=== PATIENT | female | born 1955 | race Caucasian/White ===

== ENCOUNTER 2021-07-30 11:59 | Outpatient (REF) | payer MEDICARE, SELFPAY ==
[2021-07-30 13:18] LABS: Blood Urea Nitrogen 18 mg/dL (9-16); Estimated Glomerular Filt Rate > 60
== END 2021-07-30 12:00 | disposition home or self-care (01) ==
LOC: HO.LAB 11:59
PROVIDERS: Psychiatry & Neurology Neurology; PCP Internal Medicine; Visit Provider Psychiatry & Neurology Neurology
DX: I67.1 Cerebral aneurysm, nonruptured (principal)
CPT/HCPCS: 36415; 82565; 84520

== ENCOUNTER 2021-09-10 10:09 | Outpatient (REF) | payer MEDICARE, SELFPAY ==
--- NOTE | ~2021-09-10 | CT_ITS ---
EXAMINATION: CT ANGIOGRAM HEAD WITH CONTRAST CLINICAL INFORMATION: Follow-up cerebral aneurysm. COMPARISON: CT angiogram dated 11/15/2019. TECHNIQUE: Test bolus sequences followed by intravenous administration 75 mL of Omnipaque 350. Helical imaging was performed in the axial plane from the skull base to the vertex. Delayed postcontrast imaging of the head was also performed. The data was processed at the special procedure technologist's workstation for generation of MIP sequences. Three-dimensional volume rendered reformatted images were also generated at an offline 3-D workstation. This CT examination was performed using dose optimization techniques as appropriate, variously including the following: *Automated exposure control *Adjustment of mA and/or kV according to patient size (this includes techniques or standardized protocols for targeted exams where dose is matched to indication/reason for exam; i.e. extremities or head) *Use of iterative reconstruction technique DLP: 234 mGy-cm. FINDINGS: There is no evidence of acute intracranial hemorrhage or territorial infarction. No abnormal mass effect or midline shift is seen. Oneill to white matter differentiation is well preserved. No extra-axial fluid collections are identified. There is no abnormal enhancement. The ventricles are normal in size. There is no abnormal attenuation within the brain parenchyma. The osseous structures and soft tissues are normal. The mastoid air cells and visualized portions of the paranasal sinuses are well aerated. There are [id number] degenerative changes of the right temporomandibular joint. A 3 x 3.7 mm right MCA bifurcation aneurysm is stable compared to the previous exam. The remaining intracranial vasculature corresponding to the anterior and posterior circulation is normal. Mild to moderate atherosclerotic wall calcifications of the cavernous and supraclinoid internal carotid arteries again noted. No significant stenoses or occlusions are seen. No vascular malformation is identified. The visualized extracranial vessels appear normal. The venous sinuses opacify normally. CT/CT angio head IMPRESSION: Stable 3 x 3.7 mm right MCA bifurcation aneurysm. No acute process.
[2021-09-10 10:54] LABS: Blood Urea Nitrogen 25 mg/dL (9-16); Estimated Glomerular Filt Rate > 60
[2021-09-10] MEDS: iohexoL 350 MG/ML 100 ML INFUS..BTL IV (12:03)
== END 2021-09-10 10:10 | disposition home or self-care (01) ==
LOC: HO.CT 10:09
PROVIDERS: Visit Provider Psychiatry & Neurology Neurology
DX: I67.1 Cerebral aneurysm, nonruptured (principal)
CPT/HCPCS: 36415; 70496; 82565; 84520; Q9967

== ENCOUNTER 2022-07-31 23:31 | Emergency (ER) | payer MEDICARE, SELFPAY ==
--- NOTE | ~2022-07-31 | XR_ITS ---
EXAMINATION: XR CHEST CLINICAL INFORMATION: Chest pain COMPARISON: 01/04/2020 TECHNIQUE: Frontal view of the chest was obtained. FINDINGS: Normal symmetric lung volumes. No parenchymal consolidation. No pleural effusion. No pneumothorax. Cardiomediastinal silhouette and pulmonary vascularity are within normal limits. Aorta is atherosclerotic. No acute osseous abnormalities. XR/XR chest 1V IMPRESSION: No acute findings
[2022-07-31 23:58] VITALS: BP 151/68; PULSE 92; RESP 16; TEMP 36.9; O2SAT 96; BMI 33.1
--- NOTE | 2022-08-01 00:02 | ECG_ITS ---
Test Reason : CHEST PRESSURE Blood Pressure : / mmHG Vent. Rate : 088 BPM Atrial Rate : 088 BPM P-R Int : 150 ms QRS Dur : 074 ms QT Int : 348 ms P-R-T Axes : 055 009 033 degrees QTc Int : 421 ms Normal sinus rhythm Normal ECG When compared with ECG of 30-SEP-2017 12:52, No significant change was found Referred By: Generic ED Physician Electronically Signed By:DONG MORGAN MD
[2022-08-01 00:08] LABS: MANUAL DIFF FLAG NO
[2022-08-01 00:11] LABS: Basophils Percent Auto 0.4 % (0-2); Eosinophils Absolute Auto 0.2 X10*3/uL (0.0-0.4); Eosinophils Percent Auto 2.7 % (0-4); Hematocrit 34.3 % (37.0-47.0); Hemoglobin 10.5 g/dl (12.0-16.0); Imm Gran Abs Auto 0.02 X10*3/uL (0.00-0.03); Imm Gran Pct Auto 0.3 % (0.0-0.4); Lymphocytes Absolute Auto 1.6 X10*3/uL (1.2-4.9); Lymphocytes Percent Auto 23.7 % (20-40); Mean Corpuscular HGB Conc 30.6 g/dl (31.0-35.0); Mean Corpuscular Hemoglobin 26.1 pg (27.0-33.0); Mean Corpuscular Volume 85.1 fL (80.0-98.0); Mean Platelet Volume 10.6 fL (9.4-12.3); Monocytes Absolute Auto 0.5 X10*3/uL (0.1-1.2); Monocytes Percent Auto 7.6 % (2-11); Neutrophils Absolute Auto 4.4 x10*3/uL (2.0-8.3); Neutrophils Percent Auto 65.3 % (45-73); Platelet Count 213 X10*3/uL (160-400); Red Blood Count 4.03 X10*6/uL (4.20-5.50); Red Cell Distribution Width 16.8 % (11.0-16.0); White Blood Count 6.7 X10*3/uL (4.8-10.8)
--- NOTE | 2022-08-01 00:18 | PC.NURSE ---
Patient arrives endorsing chest pain, now 5/10 in the center of her chest and epigastric discomfort. HR NSR 80s. She states pain is a little better than earlier. She denies nausea.
[2022-08-01 00:19] VITALS: BP 160/50; PULSE 84; RESP 18; TEMP 36.5; O2SAT 96
[2022-08-01 00:28] LABS: COVID-19 Test Negative (Negative); IDNOW Serial# 16C4AD1C
--- NOTE | 2022-08-01 00:29 | ED.CHESTPAIN ---
HPI - Chest Pain General Chief Complaint: Chest Pain Stated Complaint: REPRODUCABLE CHEST WALL PAIN Time Seen by Provider: 08/01/22 00:22 Source: patient and sign language interpreter Mode of arrival: ambulatory Limitations: language barrier History of Present Illness HPI narrative: 67 yo female with history of anxiety, asthma, HLD, HTN, GERD, CVA on aspirin presents with complaints of intermittent chest pain for 2 years. Patient tells me chest pain occurs while at rest, with movement, with breathing, with palpation. Patient reports shortness of breath with moving but states she has asthma. No cough, fever, leg swelling or leg pain, dizziness or palpitations. Patient also reports she has some perioral numbness which occurs with her chest pain at time. 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 She cannot recall the name of her supervisor body assembly. She tells me she has never had a stress test. Related Data Allergies Allergy/AdvReac Type Severity Reaction Status Date / Time Penicillins Allergy Mild UNKNOWN Unverified 06/29/20 15:51 PCN Allergy Unknown SWELLING Uncoded 03/11/12 00:00 ESPECIALLY IN THE MOUTH Review of Systems Review of Systems: Yes all other systems are reviewed and are negative Constitutional: Constitutional: Reports no additional constitutional complaints, Denies body ache(s), Denies chills, Denies fever(s), Denies headache(s) and Denies weakness Eyes: Eyes: Reports no additional eye complaints and Denies change in vision ENT: Reports system reviewed and no additional complaints, except as documented, Denies dizziness, Denies headache(s), Denies nasal congestion, Denies nasal discharge and Denies neck pain Cardiovascular: Cardiovascular: Reports no additional cardiovascular complaints, Reports chest pain, Denies leg edema and Reports dyspnea Respiratory: Respiratory: Reports no additional respiratory complaints, Denies cough and Reports dyspnea Gastrointestinal: Gastrointestinal: Reports no additional gastrointestinal complaints, Denies abdominal pain, Denies diarrhea, Denies nausea and Denies vomiting Genitourinary: Genitourinary: Reports no additional female genitourinary complaints and Denies urinary incontinence Musculoskeletal: Musculoskeletal: Reports no additional musculoskeletal complaints, Denies back pain, Denies arthralgias, Denies joint swelling, Denies neck pain, Reports numbness and Denies tingling Integumentary/Breasts: Skin/Breast: Reports system reviewed and no additional complaints, except as docu and Denies rash Neurologic: Reports system reviewed and no additional complaints, except as documented, Denies Abnormal speech present, Denies dizziness, Denies headache(s), Reports numbness, Denies tingling and Denies weakness PMFSH Past Medical History Attestation statement: The following information was validated with the patient. Source: old records reviewed and nursing notes reviewed Social History Social History Advance Directives: No Physical Exam Vital Signs: Vital Signs: Last Vital Signs Temp 97.7 F 08/01/22 00:19 Pulse 80 08/01/22 01:19 Resp 14 08/01/22 01:19 BP 132/51 L 08/01/22 01:19 Pulse Ox 95 08/01/22 01:19 O2 Del Method 08/01/22 01:19 BMI result Body Mass Index 33.1 Const: General: cooperative, healthy appearing, comfortable and no acute distress Orientation/consciousness: patient oriented x3 Limitations: no limitations HEENT: Head: Yes normal to inspection Ears: hearing grossly normal bilaterally General nose exam: Normal external nose present Face and sinus: Yes normal facial exam Mouth: Normal oral and palatal mucosa present Throat: Yes posterior oropharynx normal Eyes: General: appearance normal, both eyes and all related structures Pupils: Equal, round and reactive pupils present Neck: Neck: Yes normal visual inspection Chest: Chest palpation & inspection: normal inspection of the chest and tenderness Resp: Effort & Inspection: normal respiratory effort Auscultation: clear to auscultation bilaterally Cardio: Rate: regular rate Rhythm: regular rhythm Peripheral pulses: Peripheral pulses 2+ throughout GI: Inspection: Yes normal to inspection Palpation (GI): Soft to palpation and nontender Auscultation: normal bowel sounds Back/Spine/Pelvis: Thoracic/Lumbar Spine: thoracic and lumbar spine normal to inspection Skin: General skin exam: no rashes or lesions noted Neuro: General: patient oriented x3, no focal motor deficits and normal sensation to monofilament Cranial nerves: Yes Equal, round and reactive pupils present Cognition (Neuro): normal cognition Speech: No Abnormal speech present Gait exam (Neuro): Normal gait present Motor exam (neuro): 5/5 motor strength present throughout Extrem: General: Yes normal to inspection, Yes no pedal edema and Yes no calf tenderness Course Course Course Narrative: Initial troponin is 21. Will repeat level. Additional labs are unremarkable. EKG shows no ischemic changes. Chest x-ray is negative Reevaluation(s) Reevaluation #1: 0200-Sign out to Dr An pending repeat troponin. MDM - Chest Pain MDM Narrative Medical decision making narrative: This is a 67-year-old female who presents with intermittent chest pain described as aching pain over the last 2 years with some occasional shortness of breath with movement and perioral numbness that accompanies chest pain. Patient quite anxious. On exam chest pain is reproducible. Her lungs are clear. Vitals are stable. Will check labs, EKG, chest x-ray, COVID screen. -seems atypical for ACS heart score 3 (risk factors, age). [facility] Medical Records Data Attestation: I reviewed the patient's medical records. Lab Data Attestation: I reviewed the patient's lab results. Result diagrams: 08/01/22 00:00 08/01/22 00:00 Labs: Lab Results 08/01/22 08/01/22 08/01/22 Range/Units 00:00 00:00 00:00 WBC 6.7 (4.8-10.8) X10*3/uL RBC 4.03 L (4.20-5.50) X10*6/uL Hgb 10.5 L (12.0-16.0) g/dl Hct 34.3 L (37.0-47.0) % MCV 85.1 (80.0-98.0) fL MCH 26.1 L (27.0-33.0) pg MCHC 30.6 L (31.0-35.0) g/dl RDW 16.8 H (11.0-16.0) % Plt Count 213 (160-400) X10*3/uL MPV 10.6 (9.4-12.3) fL Immature Gran % (Auto) 0.3 (0.0-0.4) % Neut % (Auto) 65.3 (45-73) % Lymph % (Auto) 23.7 (20-40) % Citrus % (Auto) 7.6 (2-11) % Eos % (Auto) 2.7 (0-4) % Baso % (Auto) 0.4 (0-2) % Lymph # (Auto) 1.6 (1.2-4.9) X10*3/uL Citrus # (Auto) 0.5 (0.1-1.2) X10*3/uL Eos # (Auto) 0.2 (0.0-0.4) X10*3/uL Baso # (Auto) 0.0 (0.0-0.2) X10*3/uL Abs Immat Gran (auto) 0.02 (0.00-0.03) X10*3/uL Absolute Neuts (auto) 4.4 (2.0-8.3) x10*3/uL Absolute Nucleated RBC 0.000 (0.0-0.012) X10*3/uL Nucleated RBC % (auto) 0.0 (0.0-0.2) /100WBC PT (10.0-13.1) SEC INR (0.9-1.1) D-Dimer High Sensitivty NG/ML Sodium 142 (135-145) mmol/L Potassium 4.4 (3.3-5.1) mmol/L Chloride 103 (96-108) mmol/L Carbon Dioxide 27 (22-29) mmol/L Anion Gap 16 (12-20) BUN 20 H (9-16) mg/dL Creatinine 0.77 (0.5-1.4) mg/dL Estim Creat Clear Calc 77.6 Estimated GFR > 60 Random Glucose 129 H (60-115) mg/dL Calcium 9.4 (8.4-10.2) mg/dL Total Bilirubin 0.2 (0.0-1.0) mg/dL Direct Bilirubin < 0.2 (0.0-0.5) mg/dL AST 20 (5-31) U/L ALT 18 (0-31) U/L Alkaline Phosphatase 93 (39-117) U/L Troponin I High Sens (<3.5-17.0) ng/L Total Protein 7.2 (6.5-8.0) g/dL Albumin 3.9 (3.5-5.0) g/dL COVID-19 ([facility]) Negative (Negative) COVID-19 Clin Com See Note 08/01/22 08/01/22 Range/Units 00:00 00:42 WBC (4.8-10.8) X10*3/uL RBC (4.20-5.50) X10*6/uL Hgb (12.0-16.0) g/dl Hct (37.0-47.0) % MCV (80.0-98.0) fL MCH (27.0-33.0) pg MCHC (31.0-35.0) g/dl RDW (11.0-16.0) % Plt Count (160-400) X10*3/uL MPV (9.4-12.3) fL Immature Gran % (Auto) (0.0-0.4) % Neut % (Auto) (45-73) % Lymph % (Auto) (20-40) % Citrus % (Auto) (2-11) % Eos % (Auto) (0-4) % Baso % (Auto) (0-2) % Lymph # (Auto) (1.2-4.9) X10*3/uL Citrus # (Auto) (0.1-1.2) X10*3/uL Eos # (Auto) (0.0-0.4) X10*3/uL Baso # (Auto) (0.0-0.2) X10*3/uL Abs Immat Gran (auto) (0.00-0.03) X10*3/uL Absolute Neuts (auto) (2.0-8.3) x10*3/uL Absolute Nucleated RBC (0.0-0.012) X10*3/uL Nucleated RBC % (auto) (0.0-0.2) /100WBC PT 11.1 (10.0-13.1) SEC INR 1.0 (0.9-1.1) D-Dimer High Sensitivty 224 NG/ML Sodium (135-145) mmol/L Potassium (3.3-5.1) mmol/L Chloride (96-108) mmol/L Carbon Dioxide (22-29) mmol/L Anion Gap (12-20) BUN (9-16) mg/dL Creatinine (0.5-1.4) mg/dL Estim Creat Clear Calc Estimated GFR Random Glucose (60-115) mg/dL Calcium (8.4-10.2) mg/dL Total Bilirubin (0.0-1.0) mg/dL Direct Bilirubin (0.0-0.5) mg/dL AST (5-31) U/L ALT (0-31) U/L Alkaline Phosphatase (39-117) U/L Troponin I High Sens 21.1 H (<3.5-17.0) ng/L Total Protein (6.5-8.0) g/dL Albumin (3.5-5.0) g/dL COVID-19 ([facility]) (Negative) COVID-19 Clin Com Imaging Data Chest x-ray: Attestation: I personally reviewed and interpreted this imaging study as follows: Radiologist's impression: XAMINATION: XR CHEST CLINICAL INFORMATION: Chest pain COMPARISON: 01/04/2020 TECHNIQUE: Frontal view of the chest was obtained. FINDINGS: Normal symmetric lung volumes. No parenchymal consolidation. No pleural effusion. No pneumothorax.? Cardiomediastinal silhouette and pulmonary vascularity are within normal limits. Aorta is atherosclerotic. No acute osseous abnormalities. XR/XR chest 1V IMPRESSION: No acute findings ? ECG Data ECG #1: Attestation: I personally reviewed and interpreted this ECG as follows: ECG interpretation date: 08/01/22 ECG interpretation time: 23:45 Interpretation: Normal sinus rhythm with a rate 88, normal VT, normal QRS, normal QT Discharge Plan Discharge Clinical Impression: Chest pain Patient Disposition: Still a Patient Instructions: Chest Pain (DC) Additional Instructions: White trabajo de laboratorio, electrocardiograma y jose X son tranquilizadores. Mantenga white julio con white cardi?logo. Regrese por cualquier empeoramiento de los s?ntomas. Referrals: Ashwin Arzola III, MD [Primary Care Provider] - 1 week Print Language: [place] Irish
[2022-08-01 00:32] LABS: Anion Gap 16 (12-20); Blood Urea Nitrogen 20 mg/dL (9-16); Calcium 9.4 mg/dL (8.4-10.2); Carbon Dioxide 27 mmol/L (22-29); Chloride 103 mmol/L (96-108); Creatinine Clr Calc Pharmacy 77.6; Estimated Glomerular Filt Rate > 60; Glucose Random 129 mg/dL (60-115); Potassium 4.4 mmol/L (3.3-5.1); Sodium 142 mmol/L (135-145)
[2022-08-01 00:34] LABS: Troponin-I High Sensitivity 21.1 ng/L (<3.5-17.0)
[2022-08-01 00:46] LABS: Alanine Aminotransferase 18 U/L (0-31); Albumin Level 3.9 g/dL (3.5-5.0); Alkaline Phosphatase 93 U/L (39-117); Aspartate Amino Transferase 20 U/L (5-31); Bilirubin Direct < 0.2 mg/dL (0.0-0.5); Bilirubin Total 0.2 mg/dL (0.0-1.0); Total Protein 7.2 g/dL (6.5-8.0)
[2022-08-01 00:55] LABS: Prothrombin Time 11.1 SEC (10.0-13.1)
[2022-08-01 00:57] LABS: D Dimer High Sensitivity 224 NG/ML
[2022-08-01 01:19] VITALS: BP 132/51; PULSE 80; RESP 14; O2SAT 95
[2022-08-01 02:23] VITALS: BP 136/58; PULSE 75; RESP 11; TEMP 36.4
[2022-08-01 02:23] LABS: Troponin-I High Sensitivity 23.7 ng/L (<3.5-17.0)
[2022-08-01 03:39] VITALS: BP 146/44; PULSE 73; RESP 11; TEMP 36.6; O2SAT 97
--- NOTE | 2022-08-01 03:40 | PC.NURSE ---
Took care of at 3:15am from Alayna VERNON, pt is resting in bed. No sign of distress at this time. pt denies any chest pain.
[2022-08-01 05:52] VITALS: BP 135/42; PULSE 72; RESP 9; TEMP 36.2; O2SAT 96
== END 2022-08-01 06:19 | disposition still patient (30) ==
PROVIDERS: Nurse Practitioner Family; Emergency Provider Emergency Medicine; PCP Internal Medicine
DX: R07.89 Other chest pain (principal); Z79.899 Other long term (current) drug therapy; Z20.822 Contact with and (suspected) exposure to COVID-19
CPT/HCPCS: 36415; 71045; 80048; 80076; 84484; 85025; 85379; 85610; 87635; 93005; 99283; 99285

== ENCOUNTER 2022-11-25 16:28 | Inpatient (IN) | payer OTHER, SELFPAY ==
--- NOTE | ~2022-11-25 | XR_ITS ---
EXAMINATION: XR CHEST CLINICAL INFORMATION: Shortness of breath COMPARISON: 08/01/2022 TECHNIQUE: 2 views of the chest were obtained. FINDINGS: No significant abnormality is noted involving the heart, lungs, mediastinum, bony thorax or soft tissues. Some minimal bibasilar atelectasis or scarring is present. XR/XR chest 2V IMPRESSION: No acute intrathoracic disease.
[2022-11-25 16:57] VITALS: BP 151/55; PULSE 85; RESP 36; TEMP 36.8; O2SAT 97; BMI 34.6
--- NOTE | 2022-11-25 16:57 | ED.SOB ---
HPI - SOB/Dyspnea General Chief Complaint: Dyspnea <KATHRYN Wood - Last Filed: 11/25/22 17:01> Stated Complaint: unable to breath <KATHRYN Wood - Last Filed: 11/25/22 17:01> Time Seen by Provider: 11/25/22 19:01 <KATHRYN Wood - Last Filed: 11/25/22 17:01> Source: patient <Wilbert An MD - Last Filed: 11/26/22 01:07> Mode of arrival: ambulatory <Wilbert An MD - Last Filed: 11/26/22 01:07> Limitations: no limitations <Wilbert An MD - Last Filed: 11/26/22 01:07> History of Present Illness HPI Narrative: Patient history of anxiety, asthma, HLD, hypertension, GERD, CVA on aspirin came here for increased shortness of breath for last 2 weeks with mid chest tightness and throat pain , using her nebulizing machine and inhaler without much response has dry cough no leg edema no fever no chills no known coronary artery disease <Wilbert An MD - Last Filed: 11/26/22 01:07> Related Data Home Medications: Home Medications Medication Instructions Recorded Confirmed albuterol sulfate 90 mcg/actuation 2 puff inhalation Q4H PRN wheezing 09/27/22 11/25/22 aerosol inhaler amitriptyline 150 mg tablet 150 mg PO BEDTIME 09/27/22 11/25/22 aripiprazole 20 mg tablet 20 mg PO DAILY 09/27/22 11/25/22 aspirin 81 mg tablet,delayed 81 mg PO DAILY 09/27/22 11/25/22 release atorvastatin 80 mg tablet 80 mg PO BEDTIME 09/27/22 11/25/22 blood sugar diagnostic (OneTouch #10 ea 09/27/22 Ultra Test strips) clonazepam 1 mg tablet 1 mg PO BEDTIME 09/27/22 11/25/22 diclofenac sodium 1 % topical gel 4 g topical BID PRN Pain, Moderate 09/27/22 11/25/22 docusate sodium 100 mg capsule 100 mg PO BID PRN constipation 09/27/22 11/25/22 duloxetine 20 mg capsule,delayed 20 mg PO DAILY 09/27/22 11/25/22 release duloxetine 60 mg capsule,delayed 60 mg PO DAILY 09/27/22 11/25/22 release gabapentin 100 mg capsule 100 mg PO BEDTIME diabetes mellitus 09/27/22 11/25/22 insulin glargine 100 unit/mL (3 30 unit subcut DAILY 09/27/22 11/25/22 mL) subcutaneous pen (Lantus Solostar U-100 Insulin) lancets 33 gauge (OneTouch Delica #100 ea 09/27/22 Plus Lancet) metformin 500 mg tablet,extended 500 mg PO QAM 09/27/22 11/25/22 release 24 hr metoprolol succinate 25 mg 25 mg PO DAILY 09/27/22 11/25/22 tablet,extended release 24 hr montelukast 10 mg tablet 10 mg PO BEDTIME 09/27/22 11/25/22 naproxen 500 mg tablet 500 mg PO BID 09/27/22 11/25/22 omeprazole 20 mg capsule,delayed 20 mg PO QAM 09/27/22 11/25/22 release quetiapine 100 mg tablet 100 mg PO BEDTIME 09/27/22 11/25/22 umeclidinium 62.5 mcg-vilanterol 1 ea inhalation DAILY 09/27/22 11/25/22 25 mcg/actuation powdr for inhalation (Anoro Ellipta) zolpidem 10 mg tablet 10 mg PO BEDTIME 09/27/22 11/25/22 gabapentin 300 mg capsule 300 mg PO BID 11/25/22 11/25/22 <KATHRYN Wood - Last Filed: 11/25/22 17:01> Allergies/Adverse Reactions: Allergies Allergy/AdvReac Type Severity Reaction Status Date / Time Penicillins Allergy Mild UNKNOWN Verified 11/25/22 17:03 PCN Allergy Unknown SWELLING Uncoded 03/11/12 00:00 ESPECIALLY IN THE MOUTH <KATHRYN Wood - Last Filed: 11/25/22 17:01> Review of Systems Review of Systems: Yes all other systems are reviewed and are negative <Wilbert An MD - Last Filed: 11/26/22 01:07> PMFSH Past Medical History Medical History: Medical History Asthma Essential hypertension Insulin dependent type 2 diabetes mellitus Mixed hyperlipidemia Mood disorder <KATHRYN Wood - Last Filed: 11/25/22 17:01> Surgical History: Surgical History H/O: hysterectomy History of carpal tunnel release Hx of cholecystectomy <KATHRYN Wood - Last Filed: 11/25/22 17:01> Family History Family History: Family History Mother Myocardial infarction Father Myocardial infarction Sister Breast cancer Brother Spleen cancer <KATHRYN Wood - Last Filed: 11/25/22 17:01> Social History Social History: Social History Alcohol intake: never Patient Tobacco Use Status: Former Tobacco user Cigarette Packs Per Day: 3 Years Smoked: [id number] Smoked in Last 30 Days: No Use of substances other than those prescribed or required for medical reasons: No Advance Directives: No Advance Directives Information Provided: No Nutrition Risks: No Nutritional Risk <KATHRYN Wood - Last Filed: 11/25/22 17:01> Physical Exam Vital Signs: Vital Signs: Last Vital Signs Temp 98.1 F 11/26/22 00:36 Pulse 71 11/26/22 00:36 Resp 15 11/26/22 00:36 BP 140/45 H 11/26/22 00:36 Pulse Ox 97 11/26/22 00:36 O2 Del Method 11/26/22 00:36 BMI result Body Mass Index 35.1 <KATHRYN Wood - Last Filed: 11/25/22 17:01> Vital Signs: Last Vital Signs Temp 98.1 F 11/26/22 00:36 Pulse 71 11/26/22 00:36 Resp 15 11/26/22 00:36 BP 140/45 H 11/26/22 00:36 Pulse Ox 97 11/26/22 00:36 O2 Del Method 11/26/22 00:36 BMI result Body Mass Index 35.1 <Wilbert An MD - Last Filed: 11/26/22 01:07> Appearance: Alert. Oriented X3. No acute distress. Eyes: no pallor or icterus ENT: Pharynx normal. Oral Mucosa moist Neck: Normal inspection. Neck supple. CVS: Normal heart rate and rhythm. Pulses normal. no murmur/rubs /crackles Respiratory: No respiratory distress. Equal air entry bilateral, prolonged expiration occasional wheezing Abdomen: Soft and nontender. Bowel sounds are present, no mass palpable, no CVA tenderness Skin: Skin warm and dry. Normal skin color. Normal skin turgor. Extremities: No lower extremity edema. No calf tenderness Neuro: Oriented X 3. No motor deficit. No sensory deficit.No cerebellar signs , cranial nerves II-XII intact <Wilbert An MD - Last Filed: 11/26/22 01:07> Course Course Course Narrative: RME - 67 yo female with history of asthma, DM, HTN, HLD, anxiety, CVA who presents to the ER from home for evaluation of worsening SOB and OLIVA for the last 2 weeks. No cough or URI symptoms. Spo2 95% in triage but rapid, shallow breathing in triage. Labs, EKG, CXR ordered for further evaluation. <KATHRYN Wood - Last Filed: 11/25/22 17:01> Medications Administered Generic Name Dose Route Start Last Admin Trade Name Freq PRN Reason Stop Dose Admin Acetaminophen 650 mg 11/25/22 22:06 11/26/22 00:34 Acetaminophen 325 Mg Tablet PO 650 mg Q6H PRN Administration Pain, Mild (Pain Scale 1-3) Methylprednisolone Sodium Succinate 40 mg 11/25/22 23:00 11/26/22 00:27 Methylprednisolone Sod Succ 40 Mg/Ml Vial IVPUSH 40 mg BID ISIAH Administration Quetiapine Fumarate 100 mg 11/25/22 23:00 11/26/22 00:27 Quetiapine Fumarate 100 Mg Tablet PO 100 mg BEDTIME ISIAH Administration Sodium Chloride 3 ml 11/26/22 00:00 11/26/22 00:28 0.9 % Sodium Chloride Flush 3 Ml Syringe IVFLUSH 3 ml QSHIFT ISIAH Administration Zolpidem Tartrate 10 mg 11/25/22 23:00 11/26/22 00:27 Zolpidem Tartrate 5 Mg Tablet PO 10 mg BEDTIME ISIAH Administration Discontinued Medications Generic Name Dose Route Start Last Admin Trade Name Freq PRN Reason Stop Dose Admin Aspirin 162 mg 11/25/22 21:47 11/25/22 22:32 Aspirin Enteric Coated 81 Mg Tablet. PO 11/25/22 21:48 162 mg ONCE ONE Administration Albuterol Sulfate 2.5 mg/ 0 mg 11/25/22 19:50 11/25/22 20:19 Albuterol/Ipratropium 3 ml INHALE 11/25/22 19:51 1 each ONCE ONE Administration Heparin Sodium (Porcine) 5,000 unit 11/25/22 21:48 11/25/22 22:32 Heparin Sodium,Porcine 5,000 Unit/Ml Vial IVPUSH 11/25/22 21:49 5,000 unit ONCE ONE Administration Nitroglycerin 1 inch 11/25/22 19:50 11/25/22 20:01 Nitroglycerin 2 % Oint 1 Gm Packet TRANSDERMA 11/25/22 19:51 1 inch ONCE ONE Administration <KATHRYN Wood - Last Filed: 11/25/22 17:01> Medications Administered Generic Name Dose Route Start Last Admin Trade Name Freq PRN Reason Stop Dose Admin Acetaminophen 650 mg 11/25/22 22:06 11/26/22 00:34 Acetaminophen 325 Mg Tablet PO 650 mg Q6H PRN Administration Pain, Mild (Pain Scale 1-3) Methylprednisolone Sodium Succinate 40 mg 11/25/22 23:00 11/26/22 00:27 Methylprednisolone Sod Succ 40 Mg/Ml Vial IVPUSH 40 mg BID ISIAH Administration Quetiapine Fumarate 100 mg 11/25/22 23:00 11/26/22 00:27 Quetiapine Fumarate 100 Mg Tablet PO 100 mg BEDTIME ISIAH Administration Sodium Chloride 3 ml 11/26/22 00:00 11/26/22 00:28 0.9 % Sodium Chloride Flush 3 Ml Syringe IVFLUSH 3 ml QSHIFT ISIAH Administration Zolpidem Tartrate 10 mg 11/25/22 23:00 11/26/22 00:27 Zolpidem Tartrate 5 Mg Tablet PO 10 mg BEDTIME ISIAH Administration Discontinued Medications Generic Name Dose Route Start Last Admin Trade Name Freq PRN Reason Stop Dose Admin Aspirin 162 mg 11/25/22 21:47 11/25/22 22:32 Aspirin Enteric Coated 81 Mg Tablet.Dr DOWNEY 11/25/22 21:48 162 mg ONCE ONE Administration Albuterol Sulfate 2.5 mg/ 0 mg 11/25/22 19:50 11/25/22 20:19 Albuterol/Ipratropium 3 ml INHALE 11/25/22 19:51 1 each ONCE ONE Administration Heparin Sodium (Porcine) 5,000 unit 11/25/22 21:48 11/25/22 22:32 Heparin Sodium,Porcine 5,000 Unit/Ml Vial IVPUSH 11/25/22 21:49 5,000 unit ONCE ONE Administration Nitroglycerin 1 inch 11/25/22 19:50 11/25/22 20:01 Nitroglycerin 2 % Oint 1 Gm Packet TRANSDERMA 11/25/22 19:51 1 inch ONCE ONE Administration <Wilbert An MD - Last Filed: 11/26/22 01:07> Medical Decision Making Medical Decision Making [facility] Narrative: patient with the shortness of breath normal BNP normal chest x-ray with history of asthma also had mid chest pain with throat pain with elevated troponin without any ischemic EKG changes will admit patient to rule out ACS started on heparin drip <Wilbert An MD - Last Filed: 11/26/22 01:07> Differential Diagnosis ACS/non STEMI/ asthma/bronchitis / pneumonia / CHF <Wilbert An MD - Last Filed: 11/26/22 01:07> Consult Healthcare Provider Management of the patient was discussed with: Hospitalist <Wilbert An MD - Last Filed: 11/26/22 01:07> Lab Data [facility] Lab Attestation statement: I reviewed the patient's lab results. <Wilbert An MD - Last Filed: 11/26/22 01:07> Result Diagrams: 11/25/22 18:05 11/25/22 18:05 <KATHRYN Wood - Last Filed: 11/25/22 17:01> Labs: Lab Results 11/25/22 11/25/22 11/25/22 Range/Units 18:05 18:05 18:05 WBC 7.4 (4.8-10.8) X10*3/uL RBC 3.98 L (4.20-5.50) X10*6/uL Hgb 10.2 L (12.0-16.0) g/dl Hct 33.4 L (37.0-47.0) % MCV 83.9 (80.0-98.0) fL MCH 25.6 L (27.0-33.0) pg MCHC 30.5 L (31.0-35.0) g/dl RDW 17.5 H (11.0-16.0) % Plt Count 213 (160-400) X10*3/uL MPV 11.7 (9.4-12.3) fL Immature Gran % (Auto) 0.7 H (0.0-0.4) % Neut % (Auto) 72.7 (45-73) % Lymph % (Auto) 16.8 L (20-40) % [place] % (Auto) 8.0 (2-11) % Eos % (Auto) 1.5 (0-4) % Baso % (Auto) 0.3 (0-2) % Lymph # (Auto) 1.2 (1.2-4.9) X10*3/uL [place] # (Auto) 0.6 (0.1-1.2) X10*3/uL Eos # (Auto) 0.1 (0.0-0.4) X10*3/uL Baso # (Auto) 0.0 (0.0-0.2) X10*3/uL Abs Immat Gran (auto) 0.05 H (0.00-0.03) X10*3/uL Absolute Neuts (auto) 5.4 (2.0-8.3) x10*3/uL Absolute Nucleated RBC 0.000 (0.0-0.012) X10*3/uL Nucleated RBC % (auto) 0.0 (0.0-0.2) /100WBC PT (10.0-13.1) SEC INR (0.9-1.1) APTT (26.0-36.4) SEC D-Dimer High Sensitivty NG/ML Sodium 140 (135-145) mmol/L Potassium 4.4 (3.3-5.1) mmol/L Chloride 102 (96-108) mmol/L Carbon Dioxide 29 (22-29) mmol/L Anion Gap 13 (12-20) BUN 15 (9-16) mg/dL Creatinine 0.68 (0.5-1.4) mg/dL Estim Creat Clear Calc 89.8 Estimated GFR > 60 Random Glucose 109 (60-115) mg/dL Calcium 9.3 (8.4-10.2) mg/dL Magnesium 1.7 (1.6-2.6) mg/dL Total Bilirubin 0.3 (0.0-1.0) mg/dL Direct Bilirubin < 0.2 (0.0-0.5) mg/dL AST 21 (5-31) U/L ALT 20 (0-31) U/L Alkaline Phosphatase 102 (39-117) U/L Troponin I High Sens (<3.5-17.0) ng/L B-Natriuretic Peptide (<100) pg/mL Total Protein 6.9 (6.5-8.0) g/dL Albumin 3.8 (3.5-5.0) g/dL Urine Color Urine Appearance Urine pH (5.0-9.0) Ur Specific [place] (1.005-1.025) Urine Protein (Neg-Trace) mg/dL Urine Glucose (UA) (Negative) mg/dL Urine Ketones (Negative) mg/dL Urine Blood (Negative) Urine Nitrite (Negative) Ur Leukocyte Esterase (Negative) Urine RBC (0-2) /HPF Urine WBC (0-5) /HPF Ur Squamous Epith Cells (0-2) /HPF Urine Bacteria (None Seen) Hyaline Casts (0-2) /LPF COVID-19 ([facility]) Negative (Negative) COVID-19 Clin Com See Note 11/25/22 11/25/22 11/25/22 Range/Units 18:05 18:05 19:18 WBC (4.8-10.8) X10*3/uL RBC (4.20-5.50) X10*6/uL Hgb (12.0-16.0) g/dl Hct (37.0-47.0) % MCV (80.0-98.0) fL MCH (27.0-33.0) pg MCHC (31.0-35.0) g/dl RDW (11.0-16.0) % Plt Count (160-400) X10*3/uL MPV (9.4-12.3) fL Immature Gran % (Auto) (0.0-0.4) % Neut % (Auto) (45-73) % Lymph % (Auto) (20-40) % [place] % (Auto) (2-11) % Eos % (Auto) (0-4) % Baso % (Auto) (0-2) % Lymph # (Auto) (1.2-4.9) X10*3/uL [place] # (Auto) (0.1-1.2) X10*3/uL Eos # (Auto) (0.0-0.4) X10*3/uL Baso # (Auto) (0.0-0.2) X10*3/uL Abs Immat Gran (auto) (0.00-0.03) X10*3/uL Absolute Neuts (auto) (2.0-8.3) x10*3/uL Absolute Nucleated RBC (0.0-0.012) X10*3/uL Nucleated RBC % (auto) (0.0-0.2) /100WBC PT (10.0-13.1) SEC INR (0.9-1.1) APTT (26.0-36.4) SEC D-Dimer High Sensitivty NG/ML Sodium (135-145) mmol/L Potassium (3.3-5.1) mmol/L Chloride (96-108) mmol/L Carbon Dioxide (22-29) mmol/L Anion Gap (12-20) BUN (9-16) mg/dL Creatinine (0.5-1.4) mg/dL Estim Creat Clear Calc Estimated GFR Random Glucose (60-115) mg/dL Calcium (8.4-10.2) mg/dL Magnesium (1.6-2.6) mg/dL Total Bilirubin (0.0-1.0) mg/dL Direct Bilirubin (0.0-0.5) mg/dL AST (5-31) U/L ALT (0-31) U/L Alkaline Phosphatase (39-117) U/L Troponin I High Sens 177.7 H* (<3.5-17.0) ng/L B-Natriuretic Peptide 52 (<100) pg/mL Total Protein (6.5-8.0) g/dL Albumin (3.5-5.0) g/dL Urine Color Yellow Urine Appearance Clear Urine pH 8.0 (5.0-9.0) Ur Specific [place] 1.015 (1.005-1.025) Urine Protein Negative (Neg-Trace) mg/dL Urine Glucose (UA) Negative (Negative) mg/dL Urine Ketones Negative (Negative) mg/dL Urine Blood Negative (Negative) Urine Nitrite Negative (Negative) Ur Leukocyte Esterase Small (1+) H (Negative) Urine RBC 0-2 (0-2) /HPF Urine WBC 6-10 H (0-5) /HPF Ur Squamous Epith Cells 0-2 (0-2) /HPF Urine Bacteria None Seen (None Seen) Hyaline Casts 0-2 (0-2) /LPF COVID-19 ([facility]) (Negative) COVID-19 Clin Com 11/25/22 11/25/22 Range/Units 20:56 22:05 WBC (4.8-10.8) X10*3/uL RBC (4.20-5.50) X10*6/uL Hgb (12.0-16.0) g/dl Hct (37.0-47.0) % MCV (80.0-98.0) fL MCH (27.0-33.0) pg MCHC (31.0-35.0) g/dl RDW (11.0-16.0) % Plt Count (160-400) X10*3/uL MPV (9.4-12.3) fL Immature Gran % (Auto) (0.0-0.4) % Neut % (Auto) (45-73) % Lymph % (Auto) (20-40) % [place] % (Auto) (2-11) % Eos % (Auto) (0-4) % Baso % (Auto) (0-2) % Lymph # (Auto) (1.2-4.9) X10*3/uL [place] # (Auto) (0.1-1.2) X10*3/uL Eos # (Auto) (0.0-0.4) X10*3/uL Baso # (Auto) (0.0-0.2) X10*3/uL Abs Immat Gran (auto) (0.00-0.03) X10*3/uL Absolute Neuts (auto) (2.0-8.3) x10*3/uL Absolute Nucleated RBC (0.0-0.012) X10*3/uL Nucleated RBC % (auto) (0.0-0.2) /100WBC PT 11.9 (10.0-13.1) SEC INR 1.0 (0.9-1.1) APTT 29.9 (26.0-36.4) SEC D-Dimer High Sensitivty 206 NG/ML Sodium (135-145) mmol/L Potassium (3.3-5.1) mmol/L Chloride (96-108) mmol/L Carbon Dioxide (22-29) mmol/L Anion Gap (12-20) BUN (9-16) mg/dL Creatinine (0.5-1.4) mg/dL Estim Creat Clear Calc Estimated GFR Random Glucose (60-115) mg/dL Calcium (8.4-10.2) mg/dL Magnesium (1.6-2.6) mg/dL Total Bilirubin (0.0-1.0) mg/dL Direct Bilirubin (0.0-0.5) mg/dL AST (5-31) U/L ALT (0-31) U/L Alkaline Phosphatase (39-117) U/L Troponin I High Sens 204.5 H* (<3.5-17.0) ng/L B-Natriuretic Peptide (<100) pg/mL Total Protein (6.5-8.0) g/dL Albumin (3.5-5.0) g/dL Urine Color Urine Appearance Urine pH (5.0-9.0) Ur Specific [place] (1.005-1.025) Urine Protein (Neg-Trace) mg/dL Urine Glucose (UA) (Negative) mg/dL Urine Ketones (Negative) mg/dL Urine Blood (Negative) Urine Nitrite (Negative) Ur Leukocyte Esterase (Negative) Urine RBC (0-2) /HPF Urine WBC (0-5) /HPF Ur Squamous Epith Cells (0-2) /HPF Urine Bacteria (None Seen) Hyaline Casts (0-2) /LPF COVID-19 ([facility]) (Negative) COVID-19 Clin Com <KATHRYN Wood - Last Filed: 11/25/22 17:01> Lab Results 11/25/22 11/25/22 11/25/22 Range/Units 18:05 18:05 18:05 WBC 7.4 (4.8-10.8) X10*3/uL RBC 3.98 L (4.20-5.50) X10*6/uL Hgb 10.2 L (12.0-16.0) g/dl Hct 33.4 L (37.0-47.0) % MCV 83.9 (80.0-98.0) fL MCH 25.6 L (27.0-33.0) pg MCHC 30.5 L (31.0-35.0) g/dl RDW 17.5 H (11.0-16.0) % Plt Count 213 (160-400) X10*3/uL MPV 11.7 (9.4-12.3) fL Immature Gran % (Auto) 0.7 H (0.0-0.4) % Neut % (Auto) 72.7 (45-73) % Lymph % (Auto) 16.8 L (20-40) % [place] % (Auto) 8.0 (2-11) % Eos % (Auto) 1.5 (0-4) % Baso % (Auto) 0.3 (0-2) % Lymph # (Auto) 1.2 (1.2-4.9) X10*3/uL [place] # (Auto) 0.6 (0.1-1.2) X10*3/uL Eos # (Auto) 0.1 (0.0-0.4) X10*3/uL Baso # (Auto) 0.0 (0.0-0.2) X10*3/uL Abs Immat Gran (auto) 0.05 H (0.00-0.03) X10*3/uL Absolute Neuts (auto) 5.4 (2.0-8.3) x10*3/uL Absolute Nucleated RBC 0.000 (0.0-0.012) X10*3/uL Nucleated RBC % (auto) 0.0 (0.0-0.2) /100WBC PT (10.0-13.1) SEC INR (0.9-1.1) APTT (26.0-36.4) SEC D-Dimer High Sensitivty NG/ML Sodium 140 (135-145) mmol/L Potassium 4.4 (3.3-5.1) mmol/L Chloride 102 (96-108) mmol/L Carbon Dioxide 29 (22-29) mmol/L Anion Gap 13 (12-20) BUN 15 (9-16) mg/dL Creatinine 0.68 (0.5-1.4) mg/dL Estim Creat Clear Calc 89.8 Estimated GFR > 60 Random Glucose 109 (60-115) mg/dL Calcium 9.3 (8.4-10.2) mg/dL Magnesium 1.7 (1.6-2.6) mg/dL Total Bilirubin 0.3 (0.0-1.0) mg/dL Direct Bilirubin < 0.2 (0.0-0.5) mg/dL AST 21 (5-31) U/L ALT 20 (0-31) U/L Alkaline Phosphatase 102 (39-117) U/L Troponin I High Sens (<3.5-17.0) ng/L B-Natriuretic Peptide (<100) pg/mL Total Protein 6.9 (6.5-8.0) g/dL Albumin 3.8 (3.5-5.0) g/dL Urine Color Urine Appearance Urine pH (5.0-9.0) Ur Specific [place] (1.005-1.025) Urine Protein (Neg-Trace) mg/dL Urine Glucose (UA) (Negative) mg/dL Urine Ketones (Negative) mg/dL Urine Blood (Negative) Urine Nitrite (Negative) Ur Leukocyte Esterase (Negative) Urine RBC (0-2) /HPF Urine WBC (0-5) /HPF Ur Squamous Epith Cells (0-2) /HPF Urine Bacteria (None Seen) Hyaline Casts (0-2) /LPF COVID-19 ([facility]) Negative (Negative) COVID-19 Clin Com See Note 11/25/22 11/25/22 11/25/22 Range/Units 18:05 18:05 19:18 WBC (4.8-10.8) X10*3/uL RBC (4.20-5.50) X10*6/uL Hgb (12.0-16.0) g/dl Hct (37.0-47.0) % MCV (80.0-98.0) fL MCH (27.0-33.0) pg MCHC (31.0-35.0) g/dl RDW (11.0-16.0) % Plt Count (160-400) X10*3/uL MPV (9.4-12.3) fL Immature Gran % (Auto) (0.0-0.4) % Neut % (Auto) (45-73) % Lymph % (Auto) (20-40) % [place] % (Auto) (2-11) % Eos % (Auto) (0-4) % Baso % (Auto) (0-2) % Lymph # (Auto) (1.2-4.9) X10*3/uL [place] # (Auto) (0.1-1.2) X10*3/uL Eos # (Auto) (0.0-0.4) X10*3/uL Baso # (Auto) (0.0-0.2) X10*3/uL Abs Immat Gran (auto) (0.00-0.03) X10*3/uL Absolute Neuts (auto) (2.0-8.3) x10*3/uL Absolute Nucleated RBC (0.0-0.012) X10*3/uL Nucleated RBC % (auto) (0.0-0.2) /100WBC PT (10.0-13.1) SEC INR (0.9-1.1) APTT (26.0-36.4) SEC D-Dimer High Sensitivty NG/ML Sodium (135-145) mmol/L Potassium (3.3-5.1) mmol/L Chloride (96-108) mmol/L Carbon Dioxide (22-29) mmol/L Anion Gap (12-20) BUN (9-16) mg/dL Creatinine (0.5-1.4) mg/dL Estim Creat Clear Calc Estimated GFR Random Glucose (60-115) mg/dL Calcium (8.4-10.2) mg/dL Magnesium (1.6-2.6) mg/dL Total Bilirubin (0.0-1.0) mg/dL Direct Bilirubin (0.0-0.5) mg/dL AST (5-31) U/L ALT (0-31) U/L Alkaline Phosphatase (39-117) U/L Troponin I High Sens 177.7 H* (<3.5-17.0) ng/L B-Natriuretic Peptide 52 (<100) pg/mL Total Protein (6.5-8.0) g/dL Albumin (3.5-5.0) g/dL Urine Color Yellow Urine Appearance Clear Urine pH 8.0 (5.0-9.0) Ur Specific [place] 1.015 (1.005-1.025) Urine Protein Negative (Neg-Trace) mg/dL Urine Glucose (UA) Negative (Negative) mg/dL Urine Ketones Negative (Negative) mg/dL Urine Blood Negative (Negative) Urine Nitrite Negative (Negative) Ur Leukocyte Esterase Small (1+) H (Negative) Urine RBC 0-2 (0-2) /HPF Urine WBC 6-10 H (0-5) /HPF Ur Squamous Epith Cells 0-2 (0-2) /HPF Urine Bacteria None Seen (None Seen) Hyaline Casts 0-2 (0-2) /LPF COVID-19 ([facility]) (Negative) COVID-19 Clin Com 11/25/22 11/25/22 Range/Units 20:56 22:05 WBC (4.8-10.8) X10*3/uL RBC (4.20-5.50) X10*6/uL Hgb (12.0-16.0) g/dl Hct (37.0-47.0) % MCV (80.0-98.0) fL MCH (27.0-33.0) pg MCHC (31.0-35.0) g/dl RDW (11.0-16.0) % Plt Count (160-400) X10*3/uL MPV (9.4-12.3) fL Immature Gran % (Auto) (0.0-0.4) % Neut % (Auto) (45-73) % Lymph % (Auto) (20-40) % [place] % (Auto) (2-11) % Eos % (Auto) (0-4) % Baso % (Auto) (0-2) % Lymph # (Auto) (1.2-4.9) X10*3/uL [place] # (Auto) (0.1-1.2) X10*3/uL Eos # (Auto) (0.0-0.4) X10*3/uL Baso # (Auto) (0.0-0.2) X10*3/uL Abs Immat Gran (auto) (0.00-0.03) X10*3/uL Absolute Neuts (auto) (2.0-8.3) x10*3/uL Absolute Nucleated RBC (0.0-0.012) X10*3/uL Nucleated RBC % (auto) (0.0-0.2) /100WBC PT 11.9 (10.0-13.1) SEC INR 1.0 (0.9-1.1) APTT 29.9 (26.0-36.4) SEC D-Dimer High Sensitivty 206 NG/ML Sodium (135-145) mmol/L Potassium (3.3-5.1) mmol/L Chloride (96-108) mmol/L Carbon Dioxide (22-29) mmol/L Anion Gap (12-20) BUN (9-16) mg/dL Creatinine (0.5-1.4) mg/dL Estim Creat Clear Calc Estimated GFR Random Glucose (60-115) mg/dL Calcium (8.4-10.2) mg/dL Magnesium (1.6-2.6) mg/dL Total Bilirubin (0.0-1.0) mg/dL Direct Bilirubin (0.0-0.5) mg/dL AST (5-31) U/L ALT (0-31) U/L Alkaline Phosphatase (39-117) U/L Troponin I High Sens 204.5 H* (<3.5-17.0) ng/L B-Natriuretic Peptide (<100) pg/mL Total Protein (6.5-8.0) g/dL Albumin (3.5-5.0) g/dL Urine Color Urine Appearance Urine pH (5.0-9.0) Ur Specific [place] (1.005-1.025) Urine Protein (Neg-Trace) mg/dL Urine Glucose (UA) (Negative) mg/dL Urine Ketones (Negative) mg/dL Urine Blood (Negative) Urine Nitrite (Negative) Ur Leukocyte Esterase (Negative) Urine RBC (0-2) /HPF Urine WBC (0-5) /HPF Ur Squamous Epith Cells (0-2) /HPF Urine Bacteria (None Seen) Hyaline Casts (0-2) /LPF COVID-19 ([facility]) (Negative) COVID-19 Clin Com <Wilbert An MD - Last Filed: 11/26/22 01:07> Independent Interpretation I performed an independent interpretation of an: EKG <Wilbert An MD - Last Filed: 11/26/22 01:07> Interpretation: normal sinus rhythm heart rate 80 beats per minute normal interval normal axis no acute ST-T changes no acute ischemia <Wilbert An MD - Last Filed: 11/26/22 01:07> Discharge Plan Discharge Clinical Impression: NSTEMI (non-ST elevated myocardial infarction), Asthma with exacerbation <KATHRYN Wood - Last Filed: 11/25/22 17:01> Patient Disposition: Admitted As Inpatient <KATHRYN Wood - Last Filed: 11/25/22 17:01>
--- NOTE | 2022-11-25 16:59 | ECG_ITS ---
Test Reason : sob Blood Pressure : / mmHG Vent. Rate : 080 BPM Atrial Rate : 080 BPM P-R Int : 160 ms QRS Dur : 080 ms QT Int : 354 ms P-R-T Axes : 046 011 029 degrees QTc Int : 408 ms Normal sinus rhythm Normal ECG When compared with ECG of 31-JUL-2022 23:45, No significant change was found Referred By: Soha Orourke Electronically Signed By:Michael Cano
--- NOTE | 2022-11-25 17:16 | MHC.EDTECH ---
was called from the waiting room at 1515 no response to do ekg or labs at this time
[2022-11-25 18:15] LABS: MANUAL DIFF FLAG NO
[2022-11-25 18:32] LABS: COVID-19 Test Negative (Negative); IDNOW Serial# 16C4AD1C
[2022-11-25 18:33] LABS: Alanine Aminotransferase 20 U/L (0-31); Albumin Level 3.8 g/dL (3.5-5.0); Alkaline Phosphatase 102 U/L (39-117); Anion Gap 13 (12-20); Aspartate Amino Transferase 21 U/L (5-31); Bilirubin Direct < 0.2 mg/dL (0.0-0.5); Bilirubin Total 0.3 mg/dL (0.0-1.0); Blood Urea Nitrogen 15 mg/dL (9-16); Calcium 9.3 mg/dL (8.4-10.2); Carbon Dioxide 29 mmol/L (22-29); Chloride 102 mmol/L (96-108); Creatinine Clr Calc Pharmacy 89.8; Estimated Glomerular Filt Rate > 60; Glucose Random 109 mg/dL (60-115); Magnesium 1.7 mg/dL (1.6-2.6); Potassium 4.4 mmol/L (3.3-5.1); Sodium 140 mmol/L (135-145); Total Protein 6.9 g/dL (6.5-8.0)
[2022-11-25 18:38] LABS: B Type Natriuretic Peptide 52 pg/mL (<100)
[2022-11-25 18:41] LABS: Basophils Percent Auto 0.3 % (0-2); Eosinophils Absolute Auto 0.1 X10*3/uL (0.0-0.4); Eosinophils Percent Auto 1.5 % (0-4); Hematocrit 33.4 % (37.0-47.0); Hemoglobin 10.2 g/dl (12.0-16.0); Imm Gran Abs Auto 0.05 X10*3/uL (0.00-0.03); Imm Gran Pct Auto 0.7 % (0.0-0.4); Lymphocytes Absolute Auto 1.2 X10*3/uL (1.2-4.9); Lymphocytes Percent Auto 16.8 % (20-40); Mean Corpuscular HGB Conc 30.5 g/dl (31.0-35.0); Mean Corpuscular Hemoglobin 25.6 pg (27.0-33.0); Mean Corpuscular Volume 83.9 fL (80.0-98.0); Mean Platelet Volume 11.7 fL (9.4-12.3); Monocytes Absolute Auto 0.6 X10*3/uL (0.1-1.2); Neutrophils Absolute Auto 5.4 x10*3/uL (2.0-8.3); Neutrophils Percent Auto 72.7 % (45-73); Platelet Count 213 X10*3/uL (160-400); Red Blood Count 3.98 X10*6/uL (4.20-5.50); Red Cell Distribution Width 17.5 % (11.0-16.0); White Blood Count 7.4 X10*3/uL (4.8-10.8)
[2022-11-25 18:42] LABS: Troponin-I High Sensitivity 177.7 ng/L (<3.5-17.0)
[2022-11-25 19:04] VITALS: BP 153/71; PULSE 82; RESP 12; TEMP 37; O2SAT 96
--- NOTE | 2022-11-25 19:09 | PC.NURSE ---
Assumed care for pt. Pt in no apparent distress resting at the bedside with family member. Breaths are even and unlabored with equal chest rises. O2 sat 96% RA. Pending urine sample. Will continue to monitor.
[2022-11-25 19:25] LABS: Appearance Urine Clear; Color Urine Yellow; Glucose Urine UA Negative (Negative); Leukocyte Esterase Urine Small (1+) (Negative); Nitrite Urine Negative (Negative); Specific Gravity - Urine 1.015 (1.005-1.025); UMIC TRIGGER UACC YES; Urine Blood Negative (Negative); Urine Ketones Negative (Negative); Urine Protein Negative (Neg-Trace)
[2022-11-25 19:27] LABS: Bacteria Urine None Seen (None Seen); Hyaline Casts Urine 0-2 /LPF (0-2); RBC Urine 0-2 /HPF (0-2); Squamous Epithelial Cell Urine 0-2 /HPF (0-2); UACC Culture Trigger YES
[2022-11-25] MEDS: Nitroglycerin 2 % Oint 1 GM Packet 1 INCH TRANSDERMA (20:01)
--- NOTE | 2022-11-25 20:09 | PC.NURSE ---
Pt aox3. Medicated as ordered and aware of plan of care.
[2022-11-25 20:23] VITALS: PULSE 85; RESP 20; O2SAT 97
[2022-11-25 21:26] LABS: Troponin-I High Sensitivity 204.5 ng/L (<3.5-17.0)
--- NOTE | 2022-11-25 21:54 | PC.NURSE ---
Pt reports nitro patch is causing a burning sensation to the skin. Patch removed. Skin is intact. No redness or swelling noted. MD aware.
[2022-11-25 21:57] VITALS: BMI 35.1
[2022-11-25 22:18] LABS: Prothrombin Time 11.9 SEC (10.0-13.1)
[2022-11-25 22:20] LABS: D Dimer High Sensitivity 206 NG/ML; Partial Thromboplastin Time 29.9 SEC (26.0-36.4)
[2022-11-25] MEDS: Heparin Sodium,Porcine 5,000 UNIT/ML VIAL 5000 UNIT IVPUSH (22:32)
[2022-11-25] MEDS: Aspirin Enteric Coated 81 MG TABLET.DR 162 MG PO (22:32)
--- NOTE | 2022-11-25 22:54 | P.HPHOSP_ITS ---
History of Present Illness Date of Service: 11/25/22 Chief Complaint: Chest pain this is a 67-year-old female with pertinent history of mood disorder, mixed hyperlipidemia, essential hypertension, gastroesophageal reflux disease, asthma, insulin-dependent diabetes mellitus who presents to the emergency department for evaluation of dyspnea and chest tightness. Patient states she has had ongoing dyspnea, worse with exertion that has worsened in the last 7-10 days. Denies fever, chills, cough. States she has occasional mid chest tightness when she feels like she is not able to breathe. No exacerbating or relieving factors. States she tried her home inhaler and did not find much relief. Patient denies nausea, vomiting, abdominal pain, changes in urinary or bowel habits. Endorses wheezing. No orthopnea or PND. No leg swelling In the emergency department, troponin was found to be elevated. Review of Systems Constitutional: Constitutional: Reports no additional constitutional complaints Cardiovascular: Cardiovascular: Reports chest pain and Reports dyspnea on exertion Respiratory: Respiratory: Reports dyspnea on exertion and Reports wheezing Allergic/Immunologic: Allergic/Immunologic: Reports wheezing [facility] Medical History Asthma Essential hypertension Insulin dependent type 2 diabetes mellitus Mixed hyperlipidemia Mood disorder Family History Mother Myocardial infarction Father Myocardial infarction Sister Breast cancer Brother Spleen cancer Surgical History H/O: hysterectomy History of carpal tunnel release Hx of cholecystectomy Social History Alcohol intake: never Patient Tobacco Use Status: Former Tobacco user Cigarette Packs Per Day: 3 Years Smoked: [id number] Advance Directives: No Advance Directives Information Provided: No Meds Allergies Allergy/AdvReac Type Severity Reaction Status Date / Time Penicillins Allergy Mild UNKNOWN Verified 11/25/22 17:03 PCN Allergy Unknown SWELLING Uncoded 03/11/12 00:00 ESPECIALLY IN THE MOUTH Active Medications: Current Medications Acetaminophen (Acetaminophen 325 Mg Tablet) 650 mg PO Q6H PRN PRN Reason: Pain, Mild (Pain Scale 1-3) Heparin Sodium (Porcine) (Heparin Sodium,Porcine 5,000 Unit/Ml Vial) 3,800 unit 40 unit/kg (3800 unit) IVPUSH PROTOCOL BOLUS PRN; Protocol PRN Reason: 40 unit/kg - Heparin Protocol Heparin Sodium (Porcine) (Heparin Sodium,Porcine 5,000 Unit/Ml Vial) 7,500 unit 80 unit/kg (7500 unit) IVPUSH PROTOCOL BOLUS PRN; Protocol PRN Reason: 80 unit/kg - Heparin Protocol Heparin Sodium/Sodium Chloride (Heparin Sodium,Porcine/1/2ns) 25,000 unit in 250 mls @ 0 mls/hr IVCONT .Q0M ISIAH; Protocol Melatonin (Melatonin 3 Mg Tablet) 6 mg PO BEDTIME PRN PRN Reason: Insomnia Ondansetron HCl (Ondansetron Hcl 4 Mg/2 Ml Vial) 4 mg IVPUSH Q8H PRN PRN Reason: Nausea and Vomiting Pharmacy Consult (Consult Rx Perform Med Rec) 1 each MISCELLANE ONCE PRN PRN Reason: Consult order Sodium Chloride (0.9 % Sodium Chloride Flush 3 Ml Syringe) [facility] Medications Medication Instructions Recorded Confirmed Last Taken Type albuterol sulfate 90 mcg/actuation 2 puff inhalation Q4H PRN wheezing 09/27/22 11/25/22 11/25/22 History aerosol inhaler amitriptyline 150 mg tablet 150 mg PO BEDTIME 09/27/22 11/25/22 11/24/22 History aripiprazole 20 mg tablet 20 mg PO DAILY 09/27/22 11/25/22 11/25/22 History aspirin 81 mg tablet,delayed 81 mg PO DAILY 09/27/22 11/25/22 11/25/22 History release atorvastatin 80 mg tablet 80 mg PO BEDTIME 09/27/22 11/25/22 11/25/22 History blood sugar diagnostic (OneTouch #10 ea 09/27/22 11/25/22 History Ultra Test strips) clonazepam 1 mg tablet 1 mg PO BEDTIME 09/27/22 11/25/22 11/25/22 History diclofenac sodium 1 % topical gel 4 g topical BID PRN Pain, Moderate 09/27/22 11/25/22 11/25/22 History docusate sodium 100 mg capsule 100 mg PO BID PRN constipation 09/27/22 11/25/22 11/25/22 History duloxetine 20 mg capsule,delayed 20 mg PO DAILY 09/27/22 11/25/22 11/25/22 History release duloxetine 60 mg capsule,delayed 60 mg PO DAILY 09/27/22 11/25/22 11/25/22 History release gabapentin 100 mg capsule 100 mg PO BEDTIME diabetes mellitus 09/27/22 11/25/22 11/24/22 History insulin glargine 100 unit/mL (3 30 unit subcut DAILY 09/27/22 11/25/22 11/25/22 History mL) subcutaneous pen (Lantus Solostar U-100 Insulin) lancets 33 gauge (OneTouch Delica #100 ea 09/27/22 11/25/22 History Plus Lancet) metformin 500 mg tablet,extended 500 mg PO QAM 09/27/22 11/25/22 11/25/22 History release 24 hr metoprolol succinate 25 mg 25 mg PO DAILY 09/27/22 11/25/22 11/25/22 History tablet,extended release 24 hr montelukast 10 mg tablet 10 mg PO BEDTIME 09/27/22 11/25/22 11/24/22 History naproxen 500 mg tablet 500 mg PO BID 09/27/22 11/25/22 11/25/22 History omeprazole 20 mg capsule,delayed 20 mg PO QAM 09/27/22 11/25/22 11/25/22 History release quetiapine 100 mg tablet 100 mg PO BEDTIME 09/27/22 11/25/22 11/24/22 History umeclidinium 62.5 mcg-vilanterol 1 ea inhalation DAILY 09/27/22 11/25/22 11/25/22 History 25 mcg/actuation powdr for inhalation (Anoro Ellipta) zolpidem 10 mg tablet 10 mg PO BEDTIME 09/27/22 11/25/22 11/24/22 History gabapentin 300 mg capsule 300 mg PO BID 11/25/22 11/25/22 11/25/22 History Physical Exam Vital Signs and Narrative: Vital Signs: Last Vital Signs Temp 98.6 F 11/25/22 19:04 Pulse 85 11/25/22 20:23 Resp 20 11/25/22 20:23 BP 153/71 H 11/25/22 19:04 Pulse Ox 96 11/25/22 19:04 O2 Del Method 11/25/22 19:04 BMI result Body Mass Index 35.1 Middle-aged female lying in bed in no distress Neck supple, no JVD Regular rate and rhythm, S1-S2 heard bilateral wheezing appreciated Abdomen soft nontender, no guarding, no rigidity Patient is awake, alert and oriented to self, place, time and person ; no focal motor deficit Psych: Normal mood No pedal edema Results Labs 11/25/22 18:05 11/25/22 18:05 Labs: Laboratory Results - last 24 hr 11/25/22 11/25/22 11/25/22 18:05 18:05 18:05 MCV 83.9 MCH 25.6 L MCHC 30.5 L RDW 17.5 H Plt Count 213 MPV 11.7 Immature Gran % (Auto) 0.7 H Neut % (Auto) 72.7 Lymph % (Auto) 16.8 L [place] % (Auto) 8.0 Eos % (Auto) 1.5 Baso % (Auto) 0.3 Lymph # (Auto) 1.2 [place] # (Auto) 0.6 Eos # (Auto) 0.1 Baso # (Auto) 0.0 Abs Immat Gran (auto) 0.05 H Absolute Neuts (auto) 5.4 Absolute Nucleated RBC 0.000 Nucleated RBC % (auto) 0.0 PT INR APTT D-Dimer High Sensitivty Anion Gap 13 Estim Creat Clear Calc 89.8 Estimated GFR > 60 Random Glucose 109 Calcium 9.3 Magnesium 1.7 Total Bilirubin 0.3 Direct Bilirubin < 0.2 AST 21 ALT 20 Alkaline Phosphatase 102 Troponin I High Sens B-Natriuretic Peptide Total Protein 6.9 Albumin 3.8 Urine Color Urine Appearance Urine pH Ur Specific [place] Urine Protein Urine Glucose (UA) Urine Ketones Urine Blood Urine Nitrite Ur Leukocyte Esterase Urine RBC Urine WBC Ur Squamous Epith Cells Urine Bacteria Hyaline Casts COVID-19 ([facility]) Negative COVID-19 Clin Com See Note 11/25/22 11/25/22 11/25/22 18:05 18:05 19:18 MCV MCH MCHC RDW Plt Count MPV Immature Gran % (Auto) Neut % (Auto) Lymph % (Auto) [place] % (Auto) Eos % (Auto) Baso % (Auto) Lymph # (Auto) [place] # (Auto) Eos # (Auto) Baso # (Auto) Abs Immat Gran (auto) Absolute Neuts (auto) Absolute Nucleated RBC Nucleated RBC % (auto) PT INR APTT D-Dimer High Sensitivty Anion Gap Estim Creat Clear Calc Estimated GFR Random Glucose Calcium Magnesium Total Bilirubin Direct Bilirubin AST ALT Alkaline Phosphatase Troponin I High Sens 177.7 H* B-Natriuretic Peptide 52 Total Protein Albumin Urine Color Yellow Urine Appearance Clear Urine pH 8.0 Ur Specific [place] 1.015 Urine Protein Negative Urine Glucose (UA) Negative Urine Ketones Negative Urine Blood Negative Urine Nitrite Negative Ur Leukocyte Esterase Small (1+) H Urine RBC 0-2 Urine WBC 6-10 H Ur Squamous Epith Cells 0-2 Urine Bacteria None Seen Hyaline Casts 0-2 COVID-19 ([facility]) COVID-19 NXTM Com 11/25/22 11/25/22 20:56 22:05 MCV MCH MCHC RDW Plt Count MPV Immature Gran % (Auto) Neut % (Auto) Lymph % (Auto) [place] % (Auto) Eos % (Auto) Baso % (Auto) Lymph # (Auto) [place] # (Auto) Eos # (Auto) Baso # (Auto) Abs Immat Gran (auto) Absolute Neuts (auto) Absolute Nucleated RBC Nucleated RBC % (auto) PT 11.9 INR 1.0 APTT 29.9 D-Dimer High Sensitivty 206 Anion Gap Estim Creat Clear Calc Estimated GFR Random Glucose Calcium Magnesium Total Bilirubin Direct Bilirubin AST ALT Alkaline Phosphatase Troponin I High Sens 204.5 H* B-Natriuretic Peptide Total Protein Albumin Urine Color Urine Appearance Urine pH Ur Specific [place] Urine Protein Urine Glucose (UA) Urine Ketones Urine Blood Urine Nitrite Ur Leukocyte Esterase Urine RBC Urine WBC Ur Squamous Epith Cells Urine Bacteria Hyaline Casts COVID-19 ([facility]) COVID-19 Clin Com Imaging Radiologist's Impressions: Impressions Chest X-Ray 11/25/22 17:20 IMPRESSION: No acute intrathoracic disease. Assessment and Plan (1) NSTEMI (non-ST elevated myocardial infarction): Status: Acute Plan this is a 67-year-old female with pertinent history of mood disorder, mixed hyperlipidemia, essential hypertension, gastroesophageal reflux disease, asthma, insulin-dependent diabetes mellitus who presents to the emergency department for evaluation of dyspnea and chest tightness. #. acute asthma exacerbation: Continue home inhaler. Initiating scheduled and p.r.n. DuoNebs. Initiating systemic steroids. No concern for bacterial superinfection #. NSTEMI: Patient was initiated on IV heparin in the ER. Also received aspirin. Consulting Cardiology and obtaining echo #. insulin-dependent diabetes mellitus: Continue basal plus regimen. #. Mood disorder: Continue home mood stabilizers #. essential hypertension: Continue home antihypertensives med rec pending DVT prophylaxis: Heparin drip Cardiac diet Full code Admit as inpatient and will require two night minimum hospital stay for IV heparin Time Spent With Patient Time: Total time managing care of this patient today ____ minutes. Quality Stroke Does the patient have a stroke diagnosis?: No VTE Prior VTE?: No VTE Risk Level:: Medical - moderate - high VTE Device Contraindication: Treatment Not Indicated VTE Drug Contraindication: N/A - Med Ordered
--- NOTE | 2022-11-25 22:55 | PHA.MEDREC ---
Pharmacy Consult ? Medication Reconciliation Pharmacy has completed the medication reconciliation. SPOKE WITH PT. RN INTERPRETED IN ROOM
[2022-11-25 23:23] LABS: PTT Heparin Drip > 200.0 SEC (53-77.9)
--- NOTE | 2022-11-25 23:44 | PC.NURSE ---
Ptt-HD >200 drawn after Heparin bolus given. Hold heparin drip per Dr. Moreno at this time. Pt aware of plan of care.
[2022-11-26] VITALS (11 sets, daily range): BP systolic 128–155; BP diastolic 45–77; PULSE 64–87; RESP 12–20; TEMP 36.7–37.1; O2SAT 92–99; BMI 35.2
[2022-11-26] MEDS: QUEtiapine Fumarate 100 MG TABLET PO ×2 (00:27→20:09)
[2022-11-26] MEDS: methylPREDNISolone Sod Succ 40 MG/ML VIAL IVPUSH ×3 (00:27→20:10)
[2022-11-26] MEDS: Zolpidem Tartrate 5 MG TABLET 10 MG PO (00:27)
[2022-11-26] MEDS: 0.9 % Sodium Chloride Flush 3 ML SYRINGE IVFLUSH ×3 (00:28→15:33)
[2022-11-26] MEDS: Acetaminophen 325 MG TABLET 650 MG PO ×2 (00:34→17:30)
--- NOTE | 2022-11-26 02:51 | PC.NURSE ---
Previous Ptt-HD >200 provided a false positive as it was drawn after Heparin bolus was administered. Per Dr Moreno it is okay to start heparin drip at this time. Pt aware of plan of care.
[2022-11-26] MEDS: Heparin Sodium,Porcine/1/2NS 25,000 UNIT/250 ML IV.SOLN 9.44 UNIT IVCONT (03:06)
--- NOTE | 2022-11-26 06:21 | PC.NURSE ---
Pt asleep at bedside in no apparent distress. Breaths are even and unlabored. NSR on monitor. HR 76. Heparin drip running on R Ac at 10u/kg/hr. Will continue to monitor.
--- NOTE | 2022-11-26 07:00 | CA_ITS ---
Transthoracic Echocardiogram Patient (Last, First, Middle): Melyssa Keating, Gender: Female Date of : 1955 Age: 67 Procedure Date: 11/26/2022 Procedure Type: Transthoracic Echocardiogram Location: ER Height: 165.1 cm Weight: 95.71 kg BSA: 2.02 m2 Heart Rate: bpm BP: 155 / 77 mmHg Floral Designer: Referring MD: Brandon Moreno MD Symptoms: NSTEMI Study Quality: Fair ECG Rhythm: Sinus Conclusions: - Normal left ventricular size and systolic function. There is moderately increased left ventricular wall thickness. The visually estimated ejection fraction is between 60-65%. - There is no evidence of regional wall motion abnormalities. - Normal right ventricular cavity size and systolic function. - The left atrium is severely dilated. Findings Left Ventricle Normal left ventricular size and systolic function. There is moderately increased left ventricular wall thickness. The visually estimated ejection fraction is between 60-65%. There is no evidence of regional wall motion abnormalities. Abnormal diastolic function is noted. Spectral Doppler is indicative of an impaired relaxation filling pattern. Elevated filling pressures. Right Ventricle Normal right ventricular cavity size and systolic function. Atria The left atrium is severely dilated. Aortic Valve The aortic valve was not well visualized. There is mild calcification of the aortic valve. There is mild aortic valve stenosis. There is no aortic valve regurgitation. Mitral Valve There is mild mitral annular calcification. There is no mitral valve regurgitation. There is no mitral valve stenosis. Pulmonic Valve The pulmonic valve is likely normal. Tricuspid Valve Likely normal tricuspid valve structure and function. Normal right atrial pressure. There is no evidence of pulmonary hypertension. Great Vessels All visible segments of the aorta are normal in size. The pulmonary artery was not well visualized. Venous The inferior vena cava is normal in size and collapses greater than 50% with inspiration. Pericardium/Pleural There is no evidence of pericardial effusion. Measurements 2D Linear Measurements IVSd: 1.37 0.6-0.9/0.6-1.0 cm LVIDd: 4.74 3.9-5.3/4.2-5.9 cm LVIDd Index: 2.35 2.4-3.2/2.2-3.1 cm/m2 LVIDs: 3.18 2.0-3.6 cm LVPWd: 1.35 0.7-1.1 cm Ao Root: 2.80 2.1-3.5 cm LA Diam: 4.60 2.7-3.8/3.0-4.0 cm LAIDs Index: 2.28 1.5-2.3 cm/m2 LV Mass: 321.01 67-162/88-224 g LV Mass Index: 158.92 43-95/49-115 g/m2 LVOT Diam: 2.10 3.0+(-)1.3 cm 2D Systolic Function EF 4C: 61.30 >55% EF 2C: 50.80 >55% EF BiP: 55.10 >55% Mitral Valve MV Pk E: 0.92 MV PK A: 1.29 MV Decel Time: 244.00 E/A: 0.70 E'Lateral: 6.31 E'Medial: 4.57 E/E' Med: 20.10 E/E' Lat: 14.50 PHT: 72.00 MVA PHT: 3.06 Decel Kidder: 3.76 Aortic Valve AoV Pk Terence: 2.09 AoV Mn Terence: 1.26 AoV VTI: 0.46 AoV Pk Grad: 17.00 Aov Mn Grad: 8.00 BAKARI Cont.VTI: 2.03 LVOT LVOT Pk Terence: 1.15 LVOT Mn Terence: 0.70 LVOT VTI: 0.27 LVOT Pk Grad: 5.00 LVOT Mn Grad: 2.00 LVOT Diam: 2.10 LVOT Area: 3.46 Diastolic Function MV Pk E: 0.92 MV Pk A: 1.29 E/A: 0.70 E'Medial: 4.57 E/E' Med: 20.10 E' Laterial: 6.31 E/E' Lat: 14.50 Right Ventricle TAPSE (mm): 31.00 TVS' Terence: 14.00 Tricuspid Valve TR Pk Terence: 2.09 TR Pk Grad: 17.00 RA Press: 3.00 RVSP: 20.00 Great Vessels Aorta Ao Root-2D: 2.80 2.0-3.7 cm Ao Asc: 3.00 2.1-3.4 cm Pulmonary Valve PV Pk Terence: 0.99 Peak PV Grad: 4.00 Updated in Other Vendor System with Status of Final Michael Cano MD electronically signed on 11/26/2022 5:23:41 PM with status of Final
[2022-11-26 07:27] LABS: Glucose, Whole Blood 217 mg/dL (60-115)
[2022-11-26] MEDS: Insulin Lispro 100 UNIT/ML 3 ML VIAL SUBCUT ×4 (07:40→20:08)
[2022-11-26] MEDS: Albuterol/Iprat 2.5/0.5MG 3 ML AMPUL.NEB INHALE ×4 (08:00→20:26)
[2022-11-26] MEDS: Insulin Glargine,Hum.rec.anlog 100 UNIT/ML 10 ML VIAL 25 UNIT SUBCUT (08:53)
[2022-11-26 09:37] LABS: MANUAL DIFF FLAG NO
[2022-11-26 09:39] LABS: Basophils Percent Auto 0.1 % (0-2); Hematocrit 34.6 % (37.0-47.0); Hemoglobin 10.7 g/dl (12.0-16.0); Imm Gran Abs Auto 0.04 X10*3/uL (0.00-0.03); Imm Gran Pct Auto 0.5 % (0.0-0.4); Lymphocytes Absolute Auto 0.8 X10*3/uL (1.2-4.9); Lymphocytes Percent Auto 9.4 % (20-40); Mean Corpuscular HGB Conc 30.9 g/dl (31.0-35.0); Mean Corpuscular Hemoglobin 25.5 pg (27.0-33.0); Mean Corpuscular Volume 82.6 fL (80.0-98.0); Mean Platelet Volume 10.8 fL (9.4-12.3); Monocytes Absolute Auto 0.1 X10*3/uL (0.1-1.2); Monocytes Percent Auto 1.2 % (2-11); Neutrophils Absolute Auto 7.5 x10*3/uL (2.0-8.3); Neutrophils Percent Auto 88.8 % (45-73); Platelet Count 186 X10*3/uL (160-400); Red Blood Count 4.19 X10*6/uL (4.20-5.50); Red Cell Distribution Width 17.3 % (11.0-16.0); White Blood Count 8.4 X10*3/uL (4.8-10.8)
[2022-11-26 09:48] LABS: PTT Heparin Drip 53.1 SEC (53-77.9)
[2022-11-26] MEDS: DULoxetine HCl 60 MG CAPSULE.DR PO (09:53)
[2022-11-26] MEDS: ARIPiprazole 20 MG TABLET PO (09:53)
[2022-11-26] MEDS: Gabapentin 300 MG CAPSULE PO ×2 (09:53→20:09)
[2022-11-26 09:58] LABS: Anion Gap 15 (12-20); Blood Urea Nitrogen 14 mg/dL (9-16); Calcium 8.9 mg/dL (8.4-10.2); Carbon Dioxide 24 mmol/L (22-29); Chloride 101 mmol/L (96-108); Estimated Glomerular Filt Rate > 60; Glucose Random 325 mg/dL (60-115); Potassium 4.2 mmol/L (3.3-5.1); Sodium 136 mmol/L (135-145)
[2022-11-26] MEDS: Metoprolol Succinate ER 25 MG TAB.ER.24H PO (09:58)
[2022-11-26] MEDS: Omeprazole 20 MG CAPSULE.DR PO (09:59)
[2022-11-26] MEDS: DULoxetine HCl 20 MG CAPSULE.DR PO (09:59)
[2022-11-26] MEDS: Aspirin Enteric Coated 81 MG TABLET.DR PO (09:59)
[2022-11-26 10:10] LABS: Troponin-I High Sensitivity 165.6 ng/L (<3.5-17.0)
--- NOTE | 2022-11-26 10:52 | MHC.CM.PN ---
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
--- NOTE | 2022-11-26 13:09 | P.PNIM_ITS ---
Subjective Subjective Date of Service: 11/26/22 Interval History: cc: sob interval history:improved Physical Exam Vital Signs: Vital Signs: Last Vital Signs Temp 98.2 F 11/26/22 11:25 Pulse 87 11/26/22 11:35 Resp 18 11/26/22 11:35 BP 144/58 H 11/26/22 11:25 Pulse Ox 95 11/26/22 11:25 O2 Del Method 11/26/22 11:25 BMI result Body Mass Index 35.1 General: AO X 3, no acute distress Resp: CTA bilateral, no accessory muscles used CVS: S1,S2,RRR GI: soft, non tender, non distended Neuro: motor grossly intact, alert Psych: appropriate affect, appropriate insight Objective Data Active Medications Acetaminophen (Acetaminophen 325 Mg Tablet) 650 mg PO Q6H PRN PRN Reason: Pain, Mild (Pain Scale 1-3) Last Admin: 11/26/22 00:34 Dose: 650 mg Documented By: NISHA Albuterol/Ipratropium (Albuterol/Iprat 2.5/0.5mg 3 Ml Ampul.Neb) 3 ml INHALE RQ4H WHILE AWAKE [facility] Last Admin: 11/26/22 11:35 Dose: 3 ml Documented By: MARIBELL Albuterol/Ipratropium (Albuterol/Iprat 2.5/0.5mg 3 Ml Ampul.Neb) 3 ml INHALE Q4H PRN PRN Reason: Wheezing Amitriptyline HCl (Amitriptyline Hcl 50 Mg Tablet) 150 mg PO BEDTIME [facility] Aripiprazole (Aripiprazole 20 Mg Tablet) 20 mg PO DAILY [facility] Last Admin: 11/26/22 09:53 Dose: 20 mg Documented By: MADDY Aspirin (Aspirin Enteric Coated 81 Mg Tablet.) 81 mg PO DAILY [facility] Last Admin: 11/26/22 09:59 Dose: 81 mg Documented By: MADDY Atorvastatin Calcium (Atorvastatin Calcium 80 Mg Tablet) 80 mg PO BEDTIME [facility] Clonazepam (Clonazepam 1 Mg Tablet) 1 mg PO BEDTIME [facility] Dextrose (Dextrose 50 % 25 Gm/50 Ml Syringe) 25 gm IVPUSH Q15M PRN; Protocol PRN Reason: per Hypoglycemia Standing Ord. Duloxetine HCl (Duloxetine Hcl 20 Mg Capsule.) 20 mg PO DAILY [facility] Last Admin: 11/26/22 09:59 Dose: 20 mg Documented By: MADDY Duloxetine HCl (Duloxetine Hcl 60 Mg Capsule.) 60 mg PO DAILY [facility] Last Admin: 11/26/22 09:53 Dose: 60 mg Documented By: MADDY Gabapentin (Gabapentin 300 Mg Capsule) 300 mg PO BID [facility] Last Admin: 11/26/22 09:53 Dose: 300 mg Documented By: MADDY Gabapentin (Gabapentin 100 Mg Capsule) 100 mg PO BEDTIME [facility] Glucose (Glucose Gel 15 Gm Gel..Gram.) 15 gm PO Q15M PRN; Protocol PRN Reason: per Hypoglycemia Standing Ord. Heparin Sodium (Porcine) (Heparin Sodium,Porcine 5,000 Unit/Ml Vial) 3,800 unit 40 unit/kg (3800 unit) IVPUSH PROTOCOL BOLUS PRN; Protocol PRN Reason: 40 unit/kg - Heparin Protocol Heparin Sodium (Porcine) (Heparin Sodium,Porcine 5,000 Unit/Ml Vial) 7,500 unit 80 unit/kg (7500 unit) IVPUSH PROTOCOL BOLUS PRN; Protocol PRN Reason: 80 unit/kg - Heparin Protocol Heparin Sodium/Sodium Chloride (Heparin Sodium,Porcine/1/2ns) 25,000 unit in 250 mls @ 0 mls/hr IVCONT .Q0M [facility]; Protocol Last Titration: 11/26/22 09:40 Dose: 10.01 units/kg/hr, 9.44 mls/hr Documented By: MADDY Co-signed By: XAVIER Insulin Glargine (Insulin Glargine,Hum.Rec.Anlog 100 Unit/Ml 10 Ml Vial) 25 u nit SUBCUT DAILY [facility] Last Admin: 11/26/22 08:53 Dose: 25 unit Documented By: MADDY Insulin Human Lispro (Insulin Lispro 100 Unit/Ml 3 Ml Vial) 0 unit SUBCUT QIDACHS [facility]; Protocol Last Admin: 11/26/22 07:40 Dose: 4 unit Documented By: MADDY Melatonin (Melatonin 3 Mg Tablet) 6 mg PO BEDTIME PRN PRN Reason: Insomnia Methylprednisolone Sodium Succinate (Methylprednisolone Sod Succ 40 Mg/Ml Vial) 40 mg IVPUSH BID [facility] Last Admin: 11/26/22 08:53 Dose: 40 mg Documented By: MADDY Metoprolol Succinate (Metoprolol Succinate Er 25 Mg Tab.Er.24h) 25 mg PO DAILY [facility]; Protocol Last Admin: 11/26/22 09:58 Dose: 25 mg Documented By: MADDY Montelukast Sodium (Montelukast Sodium 10 Mg Tablet) 10 mg PO BEDTIME [facility] Omeprazole (Omeprazole 20 Mg Capsule.Dr) 20 mg PO DAILY@0630 [facility] Last Admin: 11/26/22 09:59 Dose: 20 mg Documented By: MADDY Ondansetron HCl (Ondansetron Hcl 4 Mg/2 Ml Vial) 4 mg IVPUSH Q8H PRN PRN Reason: Nausea and Vomiting Pharmacy Consult (Consult Rx Perform Med Rec) 1 each MISCELLANE ONCE PRN PRN Reason: Consult order Quetiapine Fumarate (Quetiapine Fumarate 100 Mg Tablet) 100 mg PO BEDTIME [facility] Last Admin: 11/26/22 00:27 Dose: 100 mg Documented By: NISHA Quetiapine Fumarate (Quetiapine Fumarate 100 Mg Tablet) 100 mg PO BEDTIME [facility] Sodium Chloride (0.9 % Sodium Chloride Flush 3 Ml Syringe) 3 ml IVFLUSH QSHIFT [facility] Last Admin: 11/26/22 07:45 Dose: 3 ml Documented By: MADDY Zolpidem Tartrate (Zolpidem Tartrate 5 Mg Tablet) 10 mg PO BEDTIME [facility] Last Admin: 11/26/22 00:27 Dose: 10 mg Documented By: NISHA Zolpidem Tartrate (Zolpidem Tartrate 5 Mg Tablet) 5 mg PO BEDTIME [facility] Labs 11/26/22 09:32 11/26/22 09:32 Labs: Laboratory Results - last 24 hr 11/25/22 11/25/22 11/25/22 18:05 18:05 18:05 MCV 83.9 MCH 25.6 L MCHC 30.5 L RDW 17.5 H Plt Count 213 MPV 11.7 Immature Gran % (Auto) 0.7 H Neut % (Auto) 72.7 Lymph % (Auto) 16.8 L Green % (Auto) 8.0 Eos % (Auto) 1.5 Baso % (Auto) 0.3 Lymph # (Auto) 1.2 Green # (Auto) 0.6 Eos # (Auto) 0.1 Baso # (Auto) 0.0 Abs Immat Gran (auto) 0.05 H Absolute Neuts (auto) 5.4 Absolute Nucleated RBC 0.000 Nucleated RBC % (auto) 0.0 PT INR APTT aPTT Heparin Protocol D-Dimer High Sensitivty Anion Gap 13 Estim Creat Clear Calc 89.8 Estimated GFR > 60 POC Glucose Random Glucose 109 Calcium 9.3 Magnesium 1.7 Total Bilirubin 0.3 Direct Bilirubin < 0.2 AST 21 ALT 20 Alkaline Phosphatase 102 Troponin I High Sens B-Natriuretic Peptide Total Protein 6.9 Albumin 3.8 Urine Color Urine Appearance Urine pH Ur Specific Malone Urine Protein Urine Glucose (UA) Urine Ketones Urine Blood Urine Nitrite Ur Leukocyte Esterase Urine RBC Urine WBC Ur Squamous Epith Cells Urine Bacteria Hyaline Casts COVID-19 ([facility]) Negative COVID-19 Clin Com See Note 11/25/22 11/25/22 11/25/22 18:05 18:05 19:18 MCV MCH MCHC RDW Plt Count MPV Immature Gran % (Auto) Neut % (Auto) Lymph % (Auto) Green % (Auto) Eos % (Auto) Baso % (Auto) Lymph # (Auto) Green # (Auto) Eos # (Auto) Baso # (Auto) Abs Immat Gran (auto) Absolute Neuts (auto) Absolute Nucleated RBC Nucleated RBC % (auto) PT INR APTT aPTT Heparin Protocol D-Dimer High Sensitivty Anion Gap Estim Creat Clear Calc Estimated GFR POC Glucose Random Glucose Calcium Magnesium Total Bilirubin Direct Bilirubin AST ALT Alkaline Phosphatase Troponin I High Sens 177.7 H* B-Natriuretic Peptide 52 Total Protein Albumin Urine Color Yellow Urine Appearance Clear Urine pH 8.0 Ur Specific Malone 1.015 Urine Protein Negative Urine Glucose (UA) Negative Urine Ketones Negative Urine Blood Negative Urine Nitrite Negative Ur Leukocyte Esterase Small (1+) H Urine RBC 0-2 Urine WBC 6-10 H Ur Squamous Epith Cells 0-2 Urine Bacteria None Seen Hyaline Casts 0-2 COVID-19 ([facility]) COVID-19 Clin Com 11/25/22 11/25/22 11/25/22 20:56 22:05 22:53 MCV MCH MCHC RDW Plt Count MPV Immature Gran % (Auto) Neut % (Auto) Lymph % (Auto) Green % (Auto) Eos % (Auto) Baso % (Auto) Lymph # (Auto) Green # (Auto) Eos # (Auto) Baso # (Auto) Abs Immat Gran (auto) Absolute Neuts (auto) Absolute Nucleated RBC Nucleated RBC % (auto) PT 11.9 INR 1.0 APTT 29.9 aPTT Heparin Protocol > 200.0 H* D-Dimer High Sensitivty 206 Anion Gap Estim Creat Clear Calc Estimated GFR POC Glucose Random Glucose Calcium Magnesium Total Bilirubin Direct Bilirubin AST ALT Alkaline Phosphatase Troponin I High Sens 204.5 H* B-Natriuretic Peptide Total Protein Albumin Urine Color Urine Appearance Urine pH Ur Specific Malone Urine Protein Urine Glucose (UA) Urine Ketones Urine Blood Urine Nitrite Ur Leukocyte Esterase Urine RBC Urine WBC Ur Squamous Epith Cells Urine Bacteria Hyaline Casts COVID-19 ([facility]) [facility] 11/26/22 11/26/22 11/26/22 07:22 09:32 09:32 MCV 82.6 MCH 25.5 L MCHC 30.9 L RDW 17.3 H Plt Count 186 MPV 10.8 Immature Gran % (Auto) 0.5 H Neut % (Auto) 88.8 H Lymph % (Auto) 9.4 L Green % (Auto) 1.2 L Eos % (Auto) 0.0 Baso % (Auto) 0.1 Lymph # (Auto) 0.8 L Green # (Auto) 0.1 Eos # (Auto) 0.0 Baso # (Auto) 0.0 Abs Immat Gran (auto) 0.04 H Absolute Neuts (auto) 7.5 Absolute Nucleated RBC 0.000 Nucleated RBC % (auto) 0.0 PT INR APTT aPTT Heparin Protocol D-Dimer High Sensitivty Anion Gap 15 Estim Creat Clear Calc 80.0 Estimated GFR > 60 POC Glucose 217 H Random Glucose 325 H Calcium 8.9 Magnesium Total Bilirubin Direct Bilirubin AST ALT Alkaline Phosphatase Troponin I High Sens B-Natriuretic Peptide Total Protein Albumin Urine Color Urine Appearance Urine pH Ur Specific Malone Urine Protein Urine Glucose (UA) Urine Ketones Urine Blood Urine Nitrite Ur Leukocyte Esterase Urine RBC Urine WBC Ur Squamous Epith Cells Urine Bacteria Hyaline Casts COVID-19 ([facility]) COVID[facility] 11/26/22 11/26/22 09:32 09:32 MCV MCH MCHC RDW Plt Count MPV Immature Gran % (Auto) Neut % (Auto) Lymph % (Auto) Green % (Auto) Eos % (Auto) Baso % (Auto) Lymph # (Auto) Green # (Auto) Eos # (Auto) Baso # (Auto) Abs Immat Gran (auto) Absolute Neuts (auto) Absolute Nucleated RBC Nucleated RBC % (auto) PT INR APTT aPTT Heparin Protocol 53.1 D D-Dimer High Sensitivty Anion Gap Estim Creat Clear Calc Estimated GFR POC Glucose Random Glucose Calcium Magnesium Total Bilirubin Direct Bilirubin AST ALT Alkaline Phosphatase Troponin I High Sens 165.6 H* B-Natriuretic Peptide Total Protein Albumin Urine Color Urine Appearance Urine pH Ur Specific Malone Urine Protein Urine Glucose (UA) Urine Ketones Urine Blood Urine Nitrite Ur Leukocyte Esterase Urine RBC Urine WBC Ur Squamous Epith Cells Urine Bacteria Hyaline Casts COVID-19 ([facility]) COVID-19 Clin Com Microbiology Microbiology Results: Microbiology 11/25/22 20:00 Urine Culture - Preliminary Urine clean catch - Urine carrillo top No growth to date. Assessment and Plan (1) Asthma with exacerbation: Status: Acute Plan 67F PMH mood disorder, mixed hyperlipidemia, essential hypertension, gastroesophageal reflux disease, mild intermittent asthma, insulin-dependent diabetes mellitus presented to the emergency department for evaluation of dyspnea (denied chest pain to me) acute decompensation of mild intermittent asthma steroids, nebs NSTEMI hepain, asa, statin, cardio, echo DM with hyperglycemia basal bolus insulin pocs Mood disorder cymbalta, seroquel, klonipin essential hypertension troprol ?DVT prophylaxis: Heparin drip Cardiac diet Full code reason for continued hospitalization:iv heparin Time Spent With Patient Time: Total time managing care of this patient today ____ minutes. Quality Stroke Does the patient have a stroke diagnosis?: No VTE Prior VTE?: No VTE Risk Level:: Medical - moderate - high VTE Device Contraindication: Treatment Not Indicated VTE Drug Contraindication: N/A - Med Ordered
[2022-11-26 13:37] LABS: Glucose, Whole Blood 341 mg/dL (60-115)
[2022-11-26 15:55] LABS: PTT Heparin Drip 32.4 SEC (53-77.9)
[2022-11-26 17:54] LABS: Glucose, Whole Blood 243 mg/dL (60-115)
--- NOTE | 2022-11-26 17:54 | PM.CNCAR ---
History of Present Illness History of Present Illness Date of Service: 11/26/22 Chief complaint: Chest pain Narrative: 67-year-old female who presented with asthma exacerbation and also complained of left-sided burning chest discomfort. She has mildly elevated troponin levels and she was started on heparin drip. EKGs normal. She was seen with a roll contour grinder. She is currently pain free. She has background history of cerebral aneurysms by her report. She is complaining of headaches. She is saying she had mild discomfort in the left side of the chest which was a burning sensation which is improved at this stage. Her main presentation is due to asthma exacerbation which is also improving at this point. We did echocardiography on her which showed that her LVEF is normal and she does not have any wall motion abnormalities. She has left ventricular hypertrophy and likely cause for that is uncontrolled blood pressure. [facility] Past Medical History Medical History Asthma Essential hypertension Insulin dependent type 2 diabetes mellitus Mixed hyperlipidemia Mood disorder Family History Family History Mother Myocardial infarction Father Myocardial infarction Sister Breast cancer Brother Spleen cancer Surgical History Surgical History H/O: hysterectomy History of carpal tunnel release Hx of cholecystectomy Social History Social History Household Members: None Housing: Apartment Do you presently have visiting nurse or other home services: Yes (thru [employer]) Alcohol intake: never Patient Tobacco Use Status: Never used Tobacco Cigarette Packs Per Day: 3 Years Smoked: [id number] service: No Current occupational status: retired Meds Allergies Allergy/AdvReac Type Severity Reaction Status Date / Time Penicillins Allergy Mild Swelling Verified 11/26/22 08:55 Active Medications: Current Medications Acetaminophen (Acetaminophen 325 Mg Tablet) 650 mg PO Q6H PRN PRN Reason: Pain, Mild (Pain Scale 1-3) Last Admin: 11/26/22 17:30 Dose: 650 mg Albuterol/Ipratropium (Albuterol/Iprat 2.5/0.5mg 3 Ml Ampul.Neb) 3 ml INHALE RQ4H WHILE AWAKE [facility]IA[facility] Last Admin: 11/26/22 15:27 Dose: 3 ml Albuterol/Ipratropium (Albuterol/Iprat 2.5/0.5mg 3 Ml Ampul.Neb) 3 ml INHALE Q4H PRN PRN Reason: Wheezing Amitriptyline HCl (Amitriptyline Hcl 50 Mg Tablet) 150 mg PO BEDTIME [facility] Aripiprazole (Aripiprazole 20 Mg Tablet) 20 mg PO DAILY [facility] Last Admin: 11/26/22 09:53 Dose: 20 mg Aspirin (Aspirin Enteric Coated 81 Mg Tablet.) 81 mg PO DAILY [facility] Last Admin: 11/26/22 09:59 Dose: 81 mg Atorvastatin Calcium (Atorvastatin Calcium 80 Mg Tablet) 80 mg PO BEDTIME [facility] Clonazepam (Clonazepam 1 Mg Tablet) 1 mg PO BEDTIME [facility] Dextrose (Dextrose 50 % 25 Gm/50 Ml Syringe) 25 gm IVPUSH Q15M PRN; Protocol PRN Reason: per Hypoglycemia Standing Ord. Duloxetine HCl (Duloxetine Hcl 20 Mg Capsule.) 20 mg PO DAILY [facility] Last Admin: 11/26/22 09:59 Dose: 20 mg Duloxetine HCl (Duloxetine Hcl 60 Mg Capsule.) 60 mg PO DAILY [facility] Last Admin: 11/26/22 09:53 Dose: 60 mg Gabapentin (Gabapentin 300 Mg Capsule) 300 mg PO BID [facility] Last Admin: 11/26/22 09:53 Dose: 300 mg Gabapentin (Gabapentin 100 Mg Capsule) 100 mg PO BEDTIME [facility] Glucose (Glucose Gel 15 Gm Gel..Gram.) 15 gm PO Q15M PRN; Protocol PRN Reason: per Hypoglycemia Standing Ord. Insulin Glargine (Insulin Glargine,Hum.Rec.Anlog 100 Unit/Ml 10 Ml Vial) 25 unit SUBCUT DAILY [facility] Last Admin: 11/26/22 08:53 Dose: 25 unit Insulin Human Lispro (Insulin Lispro 100 Unit/Ml 3 Ml Vial) 0 unit SUBCUT QIDACHS [facility]; Protocol Last Admin: 11/26/22 13:38 Dose: 8 unit Melatonin (Melatonin 3 Mg Tablet) 6 mg PO BEDTIME PRN PRN Reason: Insomnia Methylprednisolone Sodium Succinate (Methylprednisolone Sod Succ 40 Mg/Ml Vial) 40 mg IVPUSH BID [facility] Last Admin: 11/26/22 08:53 Dose: 40 mg Metoprolol Succinate (Metoprolol Succinate Er 25 Mg Tab.Er.24h) 25 mg PO DAILY [facility]; Protocol Last Admin: 11/26/22 09:58 Dose: 25 mg Montelukast Sodium (Montelukast Sodium 10 Mg Tablet) 10 mg PO BEDTIME [facility] Omeprazole (Omeprazole 20 Mg Capsule.Dr) 20 mg PO DAILY@0630 [facility] Last Admin: 11/26/22 09:59 Dose: 20 mg Ondansetron HCl (Ondansetron Hcl 4 Mg/2 Ml Vial) 4 mg IVPUSH Q8H PRN PRN Reason: Nausea and Vomiting Pharmacy Consult (Consult Rx Perform Med Rec) 1 each MISCELLANE ONCE PRN PRN Reason: Consult order Quetiapine Fumarate (Quetiapine Fumarate 100 Mg Tablet) 100 mg PO BEDTIME [facility] Last Admin: 11/26/22 00:27 Dose: 100 mg Quetiapine Fumarate (Quetiapine Fumarate 100 Mg Tablet) 100 mg PO BEDTIME [facility] Sodium Chloride (0.9 % Sodium Chloride Flush 3 Ml Syringe) 3 ml IVFLUSH QSHIFT [facility] Last Admin: 11/26/22 15:33 Dose: 3 ml Zolpidem Tartrate (Zolpidem Tartrate 5 Mg Tablet) 5 mg PO BEDTIME [facility] Home Medications Medication Instructions Recorded Confirmed Last Taken Type albuterol sulfate 90 mcg/actuation 2 puff inhalation Q4H PRN wheezing 09/27/22 11/25/22 11/25/22 History aerosol inhaler amitriptyline 150 mg tablet 150 mg PO BEDTIME 09/27/22 11/25/22 11/24/22 History aripiprazole 20 mg tablet 20 mg PO DAILY 09/27/22 11/25/22 11/25/22 History aspirin 81 mg tablet,delayed 81 mg PO DAILY 09/27/22 11/25/22 11/25/22 History release atorvastatin 80 mg tablet 80 mg PO BEDTIME 09/27/22 11/25/22 11/25/22 History blood sugar diagnostic (OneTouch #10 ea 09/27/22 11/25/22 History Ultra Test strips) clonazepam 1 mg tablet 1 mg PO BEDTIME 09/27/22 11/25/22 11/25/22 History diclofenac sodium 1 % topical gel 4 g topical BID PRN Pain, Moderate 09/27/22 11/25/22 11/25/22 History docusate sodium 100 mg capsule 100 mg PO BID PRN constipation 09/27/22 11/25/22 11/25/22 History duloxetine 20 mg capsule,delayed 20 mg PO DAILY 09/27/22 11/25/22 11/25/22 History release duloxetine 60 mg capsule,delayed 60 mg PO DAILY 09/27/22 11/25/22 11/25/22 History release gabapentin 100 mg capsule 100 mg PO BEDTIME diabetes mellitus 09/27/22 11/25/22 11/24/22 History insulin glargine 100 unit/mL (3 30 unit subcut DAILY 09/27/22 11/25/22 11/25/22 History mL) subcutaneous pen (Lantus Solostar U-100 Insulin) lancets 33 gauge (App [place] Co.uch Delica #100 ea 09/27/22 11/25/22 History Plus Lancet) metformin 500 mg tablet,extended 500 mg PO QAM 09/27/22 11/25/22 11/25/22 History release 24 hr metoprolol succinate 25 mg 25 mg PO DAILY 09/27/22 11/25/22 11/25/22 History tablet,extended release 24 hr montelukast 10 mg tablet 10 mg PO BEDTIME 09/27/22 11/25/22 11/24/22 History naproxen 500 mg tablet 500 mg PO BID 09/27/22 11/25/22 11/25/22 History omeprazole 20 mg capsule,delayed 20 mg PO QAM 09/27/22 11/25/22 11/25/22 History release quetiapine 100 mg tablet 100 mg PO BEDTIME 09/27/22 11/25/22 11/24/22 History umeclidinium 62.5 mcg-vilanterol 1 ea inhalation DAILY 09/27/22 11/25/22 11/25/22 History 25 mcg/actuation powdr for inhalation (Anoro Ellipta) zolpidem 10 mg tablet 10 mg PO BEDTIME 09/27/22 11/25/22 11/24/22 History gabapentin 300 mg capsule 300 mg PO BID 11/25/22 11/25/22 11/25/22 History Physical Exam Vital Signs: Vital Signs: Last Vital Signs Temp 98.3 F 11/26/22 14:47 Pulse 83 11/26/22 15:28 Resp 20 11/26/22 15:28 BP 128/59 L 11/26/22 14:47 Pulse Ox 96 11/26/22 14:47 O2 Del Method 11/26/22 14:47 BMI result Body Mass Index 35.1 GENERAL APPEARANCE: in no acute distress, pleasant. NECK: no carotid bruit, no jugular venous distention. SKIN: no suspicious lesions, warm and dry. HEART: no murmurs, regular rate and rhythm. LUNGS: Mild expiratory wheezes. ABDOMEN: soft, nontender. EXTREMITIES: no edema. PERIPHERAL PULSES: equal. NEUROLOGIC: No gross deficits, AAO X 3 Objective Labs and Meds 11/26/22 09:32 11/26/22 09:32 Lab results: Laboratory Results - last 24 hr 11/25/22 11/25/22 11/25/22 18:05 18:05 18:05 WBC 7.4 RBC 3.98 L Hgb 10.2 L Hct 33.4 L MCV 83.9 MCH 25.6 L MCHC 30.5 L RDW 17.5 H Plt Count 213 MPV 11.7 Immature Gran % (Auto) 0.7 H Neut % (Auto) 72.7 Lymph % (Auto) 16.8 L [place] % (Auto) 8.0 Eos % (Auto) 1.5 Baso % (Auto) 0.3 Lymph # (Auto) 1.2 [place] # (Auto) 0.6 Eos # (Auto) 0.1 Baso # (Auto) 0.0 Abs Immat Gran (auto) 0.05 H Absolute Neuts (auto) 5.4 Absolute Nucleated RBC 0.000 Nucleated RBC % (auto) 0.0 PT INR APTT aPTT Heparin Protocol D-Dimer High Sensitivty Sodium 140 Potassium 4.4 Chloride 102 Carbon Dioxide 29 Anion Gap 13 BUN 15 Creatinine 0.68 Estim Creat Clear Calc 89.8 Estimated GFR > 60 POC Glucose Random Glucose 109 Calcium 9.3 Magnesium 1.7 Total Bilirubin 0.3 Direct Bilirubin < 0.2 AST 21 ALT 20 Alkaline Phosphatase 102 Troponin I High Sens B-Natriuretic Peptide Total Protein 6.9 Albumin 3.8 Urine Color Urine Appearance Urine pH Ur Specific [place] Urine Protein Urine Glucose (UA) Urine Ketones Urine Blood Urine Nitrite Ur Leukocyte Esterase Urine RBC Urine WBC Ur Squamous Epith Cells Urine Bacteria Hyaline Casts COVID-19 ([facility]) Negative COVID-19 Clin Com See Note 11/25/22 11/25/22 11/25/22 18:05 18:05 19:18 WBC RBC Hgb Hct MCV MCH MCHC RDW Plt Count MPV Immature Gran % (Auto) Neut % (Auto) Lymph % (Auto) [place] % (Auto) Eos % (Auto) Baso % (Auto) Lymph # (Auto) [place] # (Auto) Eos # (Auto) Baso # (Auto) Abs Immat Gran (auto) Absolute Neuts (auto) Absolute Nucleated RBC Nucleated RBC % (auto) PT INR APTT aPTT Heparin Protocol D-Dimer High Sensitivty Sodium Potassium Chloride Carbon Dioxide Anion Gap BUN Creatinine Estim Creat Clear Calc Estimated GFR POC Glucose Random Glucose Calcium Magnesium Total Bilirubin Direct Bilirubin AST ALT Alkaline Phosphatase Troponin I High Sens 177.7 H* B-Natriuretic Peptide 52 Total Protein Albumin Urine Color Yellow Urine Appearance Clear Urine pH 8.0 Ur Specific [place] 1.015 Urine Protein Negative Urine Glucose (UA) Negative Urine Ketones Negative Urine Blood Negative Urine Nitrite Negative Ur Leukocyte Esterase Small (1+) H Urine RBC 0-2 Urine WBC 6-10 H Ur Squamous Epith Cells 0-2 Urine Bacteria None Seen Hyaline Casts 0-2 COVID-19 ([facility]) COVID-Intellisense 11/25/22 11/25/22 11/25/22 20:56 22:05 22:53 WBC RBC Hgb Hct MCV MCH MCHC RDW Plt Count MPV Immature Gran % (Auto) Neut % (Auto) Lymph % (Auto) [place] % (Auto) Eos % (Auto) Baso % (Auto) Lymph # (Auto) [place] # (Auto) Eos # (Auto) Baso # (Auto) Abs Immat Gran (auto) Absolute Neuts (auto) Absolute Nucleated RBC Nucleated RBC % (auto) PT 11.9 INR 1.0 APTT 29.9 aPTT Heparin Protocol > 200.0 H* D-Dimer High Sensitivty 206 Sodium Potassium Chloride Carbon Dioxide Anion Gap BUN Creatinine Estim Creat Clear Calc Estimated GFR POC Glucose Random Glucose Calcium Magnesium Total Bilirubin Direct Bilirubin AST ALT Alkaline Phosphatase Troponin I High Sens 204.5 H* B-Natriuretic Peptide Total Protein Albumin Urine Color Urine Appearance Urine pH Ur Specific [place] Urine Protein Urine Glucose (UA) Urine Ketones Urine Blood Urine Nitrite Ur Leukocyte Esterase Urine RBC Urine WBC Ur Squamous Epith Cells Urine Bacteria Hyaline Casts COVID-19 ([facility]) COVID-19 Extended Systems 11/26/22 11/26/2223 07:22 09:32 09:32 WBC 8.4 RBC 4.19 L Hgb 10.7 L Hct 34.6 L MCV 82.6 MCH 25.5 L MCHC 30.9 L RDW 17.3 H Plt Count 186 MPV 10.8 Immature Gran % (Auto) 0.5 H Neut % (Auto) 88.8 H Lymph % (Auto) 9.4 L [place] % (Auto) 1.2 L Eos % (Auto) 0.0 Baso % (Auto) 0.1 Lymph # (Auto) 0.8 L [place] # (Auto) 0.1 Eos # (Auto) 0.0 Baso # (Auto) 0.0 Abs Immat Gran (auto) 0.04 H Absolute Neuts (auto) 7.5 Absolute Nucleated RBC 0.000 Nucleated RBC % (auto) 0.0 PT INR APTT aPTT Heparin Protocol D-Dimer High Sensitivty Sodium 136 Potassium 4.2 Chloride 101 Carbon Dioxide 24 Anion Gap 15 BUN 14 Creatinine 0.77 Estim Creat Clear Calc 80.0 Estimated GFR > 60 POC Glucose 217 H Random Glucose 325 H Calcium 8.9 Magnesium Total Bilirubin Direct Bilirubin AST ALT Alkaline Phosphatase Troponin I High Sens B-Natriuretic Peptide Total Protein Albumin Urine Color Urine Appearance Urine pH Ur Specific [place] Urine Protein Urine Glucose (UA) Urine Ketones Urine Blood Urine Nitrite Ur Leukocyte Esterase Urine RBC Urine WBC Ur Squamous Epith Cells Urine Bacteria Hyaline Casts COVID-19 ([facility]) COVID-19 Clin Com 11/26/22 11/26/22 11/26/22 09:32 09:32 13:33 WBC RBC Hgb Hct MCV MCH MCHC RDW Plt Count MPV Immature Gran % (Auto) Neut % (Auto) Lymph % (Auto) [place] % (Auto) Eos % (Auto) Baso % (Auto) Lymph # (Auto) [place] # (Auto) Eos # (Auto) Baso # (Auto) Abs Immat Gran (auto) Absolute Neuts (auto) Absolute Nucleated RBC Nucleated RBC % (auto) PT INR APTT aPTT Heparin Protocol 53.1 D D-Dimer High Sensitivty Sodium Potassium Chloride Carbon Dioxide Anion Gap BUN Creatinine Estim Creat Clear Calc Estimated GFR POC Glucose 341 H Random Glucose Calcium Magnesium Total Bilirubin Direct Bilirubin AST ALT Alkaline Phosphatase Troponin I High Sens 165.6 H* B-Natriuretic Peptide Total Protein Albumin Urine Color Urine Appearance Urine pH Ur Specific [place] Urine Protein Urine Glucose (UA) Urine Ketones Urine Blood Urine Nitrite Ur Leukocyte Esterase Urine RBC Urine WBC Ur Squamous Epith Cells Urine Bacteria Hyaline Casts COVID-19 ([facility]) COVID-19 Clin Com 11/26/22 15:40 WBC RBC Hgb Hct MCV MCH MCHC RDW Plt Count MPV Immature Gran % (Auto) Neut % (Auto) Lymph % (Auto) [place] % (Auto) Eos % (Auto) Baso % (Auto) Lymph # (Auto) [place] # (Auto) Eos # (Auto) Baso # (Auto) Abs Immat Gran (auto) Absolute Neuts (auto) Absolute Nucleated RBC Nucleated RBC % (auto) PT INR APTT aPTT Heparin Protocol 32.4 L D D-Dimer High Sensitivty Sodium Potassium Chloride Carbon Dioxide Anion Gap BUN Creatinine Estim Creat Clear Calc Estimated GFR POC Glucose Random Glucose Calcium Magnesium Total Bilirubin Direct Bilirubin AST ALT Alkaline Phosphatase Troponin I High Sens B-Natriuretic Peptide Total Protein Albumin Urine Color Urine Appearance Urine pH Ur Specific [place] Urine Protein Urine Glucose (UA) Urine Ketones Urine Blood Urine Nitrite Ur Leukocyte Esterase Urine RBC Urine WBC Ur Squamous Epith Cells Urine Bacteria Hyaline Casts COVID-19 ([facility]) COVID-19 Clin Com Imaging Radiologist's impression: Impressions Chest X-Ray 11/25/22 17:20 IMPRESSION: No acute intrathoracic disease. Assessment and Plan (1) Asthma with exacerbation: Status: Acute (2) NSTEMI (non-ST elevated myocardial infarction): Status: Acute Plan 67-year-old female presenting for asthma exacerbation and mild left-sided burning chest discomfort. She has very mildly abnormal troponin levels. I think her presentation is mostly due to asthma and this is a type 2 injury. As her asthma improves I think we should pursue exercise stress test on her. We can arrange this as outpatient too. Echocardiography has shown moderate left ventricular hypertrophy but no regional wall motion abnormalities are noticed. LVEF is normal too. Heparin can be stopped. When she is ready for discharge please let us know and we will arrange an exercise stress test for her as outpatient. Thank you for allowing me to participate in the care of your patient. Please feel free to contact me if you have any questions. Time Spent With Patient Time: Total time managing care of this patient today ____ minutes. Procedures Date of Service Date of Service: 11/26/22
[2022-11-26 19:43] LABS: Glucose, Whole Blood 214 mg/dL (60-115)
[2022-11-26] MEDS: Montelukast Sodium 10 MG TABLET PO (20:08)
[2022-11-26] MEDS: Amitriptyline HCl 50 MG TABLET 150 MG PO (20:08)
[2022-11-26] MEDS: Zolpidem Tartrate 5 MG TABLET PO (20:09)
[2022-11-26] MEDS: Gabapentin 100 MG CAPSULE PO (20:09)
[2022-11-26] MEDS: clonazePAM 1 MG TABLET PO (20:09)
[2022-11-26] MEDS: Atorvastatin Calcium 80 MG TABLET PO (20:09)
[2022-11-27] VITALS (10 sets, daily range): BP systolic 119–154; BP diastolic 57–73; PULSE 71–87; RESP 15–20; TEMP 36.3–36.7; O2SAT 91–96
[2022-11-27] MEDS: 0.9 % Sodium Chloride Flush 3 ML SYRINGE IVFLUSH ×3 (00:07→17:25)
[2022-11-27] MEDS: Acetaminophen 325 MG TABLET 650 MG PO ×2 (05:19→14:09)
[2022-11-27] MEDS: Omeprazole 20 MG CAPSULE.DR PO (05:19)
[2022-11-27 07:25] LABS: Glucose, Whole Blood 258 mg/dL (60-115)
[2022-11-27] MEDS: Aspirin Enteric Coated 81 MG TABLET.DR PO (07:48)
[2022-11-27] MEDS: Metoprolol Succinate ER 25 MG TAB.ER.24H PO (07:48)
[2022-11-27] MEDS: DULoxetine HCl 20 MG CAPSULE.DR PO (07:48)
[2022-11-27] MEDS: DULoxetine HCl 60 MG CAPSULE.DR PO (07:48)
[2022-11-27] MEDS: Insulin Glargine,Hum.rec.anlog 100 UNIT/ML 10 ML VIAL 25 UNIT SUBCUT (07:49)
[2022-11-27] MEDS: Insulin Lispro 100 UNIT/ML 3 ML VIAL SUBCUT ×4 (07:49→21:38)
[2022-11-27] MEDS: ARIPiprazole 20 MG TABLET PO (07:49)
[2022-11-27] MEDS: methylPREDNISolone Sod Succ 40 MG/ML VIAL IVPUSH ×2 (07:49→21:38)
[2022-11-27] MEDS: Gabapentin 300 MG CAPSULE PO ×2 (07:49→21:39)
[2022-11-27 07:53] LABS: Hematocrit 33.6 % (37.0-47.0); Hemoglobin 10.2 g/dl (12.0-16.0); Mean Corpuscular HGB Conc 30.4 g/dl (31.0-35.0); Mean Corpuscular Hemoglobin 25.8 pg (27.0-33.0); Mean Corpuscular Volume 84.8 fL (80.0-98.0); Platelet Count 242 X10*3/uL (160-400); Red Blood Count 3.96 X10*6/uL (4.20-5.50); Red Cell Distribution Width 17.6 % (11.0-16.0); White Blood Count 13.6 X10*3/uL (4.8-10.8)
[2022-11-27] MEDS: Albuterol/Iprat 2.5/0.5MG 3 ML AMPUL.NEB INHALE ×4 (07:58→20:31)
[2022-11-27 08:08] LABS: Anion Gap 14 (12-20); Blood Urea Nitrogen 19 mg/dL (9-16); Calcium 9.2 mg/dL (8.4-10.2); Carbon Dioxide 27 mmol/L (22-29); Chloride 103 mmol/L (96-108); Creatinine Clr Calc Pharmacy 86.9; Estimated Glomerular Filt Rate > 60; Glucose Fasting 239 mg/dL (60-99); Potassium 4.6 mmol/L (3.3-5.1); Sodium 139 mmol/L (135-145)
--- NOTE | 2022-11-27 10:28 | MHC.CM.PN ---
IMM 11/26/22 Female DX CP, Asthma No DC today per MD rounds. Discharge is anticipated tomorrow. DP Home with resumption of [employer] services. Patient will arrange for transportation.
--- NOTE | 2022-11-27 10:58 | HO.PM.IMPN ---
Subjective Subjective Date of Service: 11/27/22 Interval History: cc: sob interval history:improved, but still sob Physical Exam Vital Signs: Vital Signs: Last Vital Signs Temp 97.4 F 11/27/22 07:20 Pulse 71 11/27/22 07:58 Resp 18 11/27/22 07:58 BP 119/58 L 11/27/22 07:20 Pulse Ox 94 11/27/22 07:20 O2 Del Method 11/27/22 07:20 BMI result Body Mass Index 35.2 GENERAL APPEARANCE: in no acute distress, pleasant. NECK: no carotid bruit, no jugular venous distention. SKIN: no suspicious lesions, warm and dry. HEART: no murmurs, regular rate and rhythm. LUNGS: Mild expiratory wheezes. ABDOMEN: soft, nontender. EXTREMITIES: no edema. PERIPHERAL PULSES: equal. NEUROLOGIC: No gross deficits, AAO X 3 Objective Data Active Medications Acetaminophen (Acetaminophen 325 Mg Tablet) 650 mg PO Q6H PRN PRN Reason: Pain, Mild (Pain Scale 1-3) Last Admin: 11/27/22 05:19 Dose: 650 mg Documented By: JAME Albuterol/Ipratropium (Albuterol/Iprat 2.5/0.5mg 3 Ml Ampul.Neb) 3 ml INHALE RQ4H WHILE AWAKE [facility] Last Admin: 11/27/22 07:58 Dose: 3 ml Documented By: ROX Albuterol/Ipratropium (Albuterol/Iprat 2.5/0.5mg 3 Ml Ampul.Neb) 3 ml INHALE Q4H PRN PRN Reason: Wheezing Amitriptyline HCl (Amitriptyline Hcl 50 Mg Tablet) 150 mg PO BEDTIME [facility] Last Admin: 11/26/22 20:08 Dose: 150 mg Documented By: LENA Aripiprazole (Aripiprazole 20 Mg Tablet) 20 mg PO DAILY [facility] Last Admin: 11/27/22 07:49 Dose: 20 mg Documented By: MIRTHA Aspirin (Aspirin Enteric Coated 81 Mg Tablet.) 81 mg PO DAILY [facility] Last Admin: 11/27/22 07:48 Dose: 81 mg Documented By: MIRTHA Atorvastatin Calcium (Atorvastatin Calcium 80 Mg Tablet) 80 mg PO BEDTIME [facility] Last Admin: 11/26/22 20:09 Dose: 80 mg Documented By: LENA Clonazepam (Clonazepam 1 Mg Tablet) 1 mg PO BEDTIME [facility] Last Admin: 11/26/22 20:09 Dose: 1 mg Documented By: LENA Dextrose (Dextrose 50 % 25 Gm/50 Ml Syringe) 25 gm IVPUSH Q15M PRN; Protocol PRN Reason: per Hypoglycemia Standing Ord. Duloxetine HCl (Duloxetine Hcl 20 Mg Capsule.) 20 mg PO DAILY [facility] Last Admin: 11/27/22 07:48 Dose: 20 mg Documented By: MIRTHA Duloxetine HCl (Duloxetine Hcl 60 Mg Capsule.) 60 mg PO DAILY [facility] Last Admin: 11/27/22 07:48 Dose: 60 mg Documented By: MIRTHA Gabapentin (Gabapentin 300 Mg Capsule) 300 mg PO BID [facility] Last Admin: 11/27/22 07:49 Dose: 300 mg Documented By: MIRTHA Gabapentin (Gabapentin 100 Mg Capsule) 100 mg PO BEDTIME [facility] Last Admin: 11/26/22 20:09 Dose: 100 mg Documented By: LENA Glucose (Glucose Gel 15 Gm Gel..Gram.) 15 gm PO Q15M PRN; Protocol PRN Reason: per Hypoglycemia Standing Ord. Insulin Glargine (Insulin Glargine,Hum.Rec.Anlog 100 Unit/Ml 10 Ml Vial) 25 unit SUBCUT DAILY [facility] Last Admin: 11/27/22 07:49 Dose: 25 unit Documented By: MIRTHA Insulin Human Lispro (Insulin Lispro 100 Unit/Ml 3 Ml Vial) 0 unit SUBCUT QIDACHS [facility]; Protocol Last Admin: 11/27/22 07:49 Dose: 6 unit Documented By: MIRTHA Melatonin (Melatonin 3 Mg Tablet) 6 mg PO BEDTIME PRN PRN Reason: Insomnia Methylprednisolone Sodium Succinate (Methylprednisolone Sod Succ 40 Mg/Ml Vial) 40 mg IVPUSH BID [facility] Last Admin: 11/27/22 07:49 Dose: 40 mg Documented By: MIRTHA Metoprolol Succinate (Metoprolol Succinate Er 25 Mg Tab.Er.24h) 25 mg PO DAILY [facility]; Protocol Last Admin: 11/27/22 07:48 Dose: 25 mg Documented By: MIRTHA Montelukast Sodium (Montelukast Sodium 10 Mg Tablet) 10 mg PO BEDTIME [facility] Last Admin: 11/26/22 20:08 Dose: 10 mg Documented By: LENA Omeprazole (Omeprazole 20 Mg Capsule.Dr) 20 mg PO DAILY@0630 [facility] Last Admin: 11/27/22 05:19 Dose: 20 mg Documented By: JAME Ondansetron HCl (Ondansetron Hcl 4 Mg/2 Ml Vial) 4 mg IVPUSH Q8H PRN PRN Reason: Nausea and Vomiting Pharmacy Consult (Consult Rx Perform Med Rec) 1 each MISCELLANE ONCE PRN PRN Reason: Consult order Quetiapine Fumarate (Quetiapine Fumarate 100 Mg Tablet) 100 mg PO BEDTIME [facility] Last Admin: 11/26/22 20:09 Dose: 100 mg Documented By: LENA Sodium Chloride (0.9 % Sodium Chloride Flush 3 Ml Syringe) 3 ml IVFLUSH QSHIFT [facility] Last Admin: 11/27/22 07:49 Dose: 3 ml Documented By: MIRTHA Zolpidem Tartrate (Zolpidem Tartrate 5 Mg Tablet) 5 mg PO BEDTIME [facility] Last Admin: 11/26/22 20:09 Dose: 5 mg Documented By: LENA Labs 11/27/22 07:29 11/27/22 07:29 Labs: Laboratory Results - last 24 hr 11/26/22 11/26/22 11/26/22 13:33 15:40 17:48 MCV MCH MCHC RDW Plt Count MPV Absolute Nucleated RBC Nucleated RBC % (auto) aPTT Heparin Protocol 32.4 L D Anion Gap Estim Creat Clear Calc Estimated GFR POC Glucose 341 H 243 H Fasting Glucose Calcium 11/26/22 11/27/22 11/27/22 19:39 07:21 07:29 MCV 84.8 MCH 25.8 L MCHC 30.4 L RDW 17.6 H Plt Count 242 D MPV 12.0 Absolute Nucleated RBC 0.000 Nucleated RBC % (auto) 0.0 aPTT Heparin Protocol Anion Gap Estim Creat Clear Calc Estimated GFR POC Glucose 214 H 258 H Fasting Glucose Calcium 11/27/22 07:29 MCV MCH MCHC RDW Plt Count MPV Absolute Nucleated RBC Nucleated RBC % (auto) aPTT Heparin Protocol Anion Gap 14 Estim Creat Clear Calc 86.9 Estimated GFR > 60 POC Glucose Fasting Glucose 239 H Calcium 9.2 Microbiology Microbiology Results: Microbiology 11/25/22 20:00 Urine Culture - Final Urine clean catch - Urine carrillo top No growth. Assessment and Plan (1) Asthma with exacerbation: Status: Acute Plan 67F PMH mood disorder, mixed hyperlipidemia, essential hypertension, gastroesophageal reflux disease, mild intermittent asthma, insulin-dependent diabetes mellitus presented to the emergency department for evaluation of dyspnea (denied chest pain to me) acute decompensation of mild intermittent asthma steroids, nebs eelvated troponin cardio appreciated low likelihood of acs, dced heparin outpatient stress DM with hyperglycemia basal bolus insulin pocs Mood disorder cymbalta, seroquel, klonipin essential hypertension troprol ?DVT prophylaxis: lovenox Full code reason for continued hospitalization:sob Time Spent With Patient Time: Total time managing care of this patient today ____ minutes. Quality Stroke Does the patient have a stroke diagnosis?: No VTE Prior VTE?: No VTE Risk Level:: Medical - moderate - high VTE Device Contraindication: Treatment Not Indicated VTE Drug Contraindication: N/A - Med Ordered
[2022-11-27 11:34] LABS: Glucose, Whole Blood 368 mg/dL (60-115)
[2022-11-27] MEDS: Enoxaparin Sodium 40 MG/0.4 ML SYRINGE SUBCUT (12:06)
[2022-11-27 17:13] LABS: Glucose, Whole Blood 286 mg/dL (60-115)
[2022-11-27 20:51] LABS: Glucose, Whole Blood 201 mg/dL (60-115)
[2022-11-27] MEDS: Zolpidem Tartrate 5 MG TABLET PO (21:38)
[2022-11-27] MEDS: Amitriptyline HCl 50 MG TABLET 150 MG PO (21:38)
[2022-11-27] MEDS: Montelukast Sodium 10 MG TABLET PO (21:38)
[2022-11-27] MEDS: clonazePAM 1 MG TABLET PO (21:39)
[2022-11-27] MEDS: QUEtiapine Fumarate 100 MG TABLET PO (21:39)
[2022-11-27] MEDS: Atorvastatin Calcium 80 MG TABLET PO (21:39)
[2022-11-27] MEDS: Gabapentin 100 MG CAPSULE PO (21:39)
[2022-11-28] MEDS: 0.9 % Sodium Chloride Flush 3 ML SYRINGE IVFLUSH ×2 (00:56→07:58)
[2022-11-28 04:00] VITALS: BP 156/72; PULSE 70; RESP 18; TEMP 35.9; O2SAT 92
[2022-11-28] MEDS: Acetaminophen 325 MG TABLET 650 MG PO (04:04)
[2022-11-28] MEDS: Omeprazole 20 MG CAPSULE.DR PO (06:10)
[2022-11-28 07:11] LABS: Glucose, Whole Blood 254 mg/dL (60-115)
[2022-11-28 07:17] LABS: Hematocrit 32.5 % (37.0-47.0); Hemoglobin 9.8 g/dl (12.0-16.0); Mean Corpuscular HGB Conc 30.2 g/dl (31.0-35.0); Mean Corpuscular Hemoglobin 25.5 pg (27.0-33.0); Mean Corpuscular Volume 84.4 fL (80.0-98.0); Mean Platelet Volume 11.8 fL (9.4-12.3); Platelet Count 223 X10*3/uL (160-400); Red Blood Count 3.85 X10*6/uL (4.20-5.50); Red Cell Distribution Width 17.7 % (11.0-16.0); White Blood Count 11.9 X10*3/uL (4.8-10.8)
[2022-11-28] MEDS: Albuterol/Iprat 2.5/0.5MG 3 ML AMPUL.NEB INHALE ×2 (07:19→11:15)
[2022-11-28 07:20] VITALS: PULSE 66; RESP 16; O2SAT 99
[2022-11-28 07:32] VITALS: BP 138/78; PULSE 65; RESP 12; TEMP 36.4; O2SAT 93
[2022-11-28 07:32] LABS: Anion Gap 13 (12-20); Blood Urea Nitrogen 19 mg/dL (9-16); Calcium 9.2 mg/dL (8.4-10.2); Carbon Dioxide 28 mmol/L (22-29); Chloride 102 mmol/L (96-108); Creatinine Clr Calc Pharmacy 89.4; Estimated Glomerular Filt Rate > 60; Glucose Fasting 251 mg/dL (60-99); Potassium 4.5 mmol/L (3.3-5.1); Sodium 138 mmol/L (135-145)
[2022-11-28] MEDS: DULoxetine HCl 60 MG CAPSULE.DR PO (07:55)
[2022-11-28] MEDS: Aspirin Enteric Coated 81 MG TABLET.DR PO (07:55)
[2022-11-28] MEDS: DULoxetine HCl 20 MG CAPSULE.DR PO (07:55)
[2022-11-28] MEDS: Metoprolol Succinate ER 25 MG TAB.ER.24H PO (07:56)
[2022-11-28] MEDS: ARIPiprazole 20 MG TABLET PO (07:56)
[2022-11-28] MEDS: Insulin Lispro 100 UNIT/ML 3 ML VIAL SUBCUT ×2 (07:56→12:03)
[2022-11-28] MEDS: Insulin Glargine,Hum.rec.anlog 100 UNIT/ML 10 ML VIAL 25 UNIT SUBCUT (07:57)
[2022-11-28] MEDS: methylPREDNISolone Sod Succ 40 MG/ML VIAL IVPUSH (07:58)
[2022-11-28] MEDS: Gabapentin 300 MG CAPSULE PO (08:07)
--- NOTE | 2022-11-28 08:30 | PM.DS ---
DS: Providers Provider Date of Service: 11/28/22 Date of admission: 11/25/22 22:07 Primary care physician: Ashwin Arzola III, MD Consults: 11/25/22 22:06 Consult to Cardiology Routine Consulting Provider: Michael Cano Reason for consultation: NSTEMI DS: Diagnosis Discharge Diagnosis (1) Asthma with exacerbation: Status: Acute DS: Summary Hospital Course Hospital Course: from initial hpi: 67-year-old female with pertinent history of? mood disorder, mixed hyperlipidemia, essential hypertension, gastroesophageal reflux disease, asthma, insulin-dependent diabetes mellitus who presents to the emergency department for evaluation of dyspnea and chest tightness.? Patient states she has had ongoing dyspnea, worse with exertion that has worsened in the last 7-10 days.? Denies fever, chills, cough.? States she has occasional mid chest tightness when she feels like she is not able to breathe.? No exacerbating or relieving factors.? States she tried her home inhaler and did not find much relief.? Patient denies nausea, vomiting, abdominal pain, changes in urinary or bowel habits.? Endorses wheezing.? No orthopnea or PND.? No leg swelling ? In the emergency department, troponin was found to be elevated. hospital course: Patient was admitted with acute decompensation of mild intermittent asthma. She was she was steroids and nebulizers and shortness of breath and wheezing resolved. She was noted to have elevated troponin initially treated as NSTEMI, was seen by Cardiology felt there was low likelihood of ACS and heparin was discontinued. They recommended outpatient stress test. For diabetes with hyperglycemia she was treated with basal bolus insulin. For mood disorder she was continued on Cymbalta, Seroquel, Klonopin. For hypertension she was continued on Toprol. Patient is feeling much better will be discharged home. Time Spent with Patient Time attestation: Total time managing care of this patient today ____ minutes. Discharge coordination time: Greater than 30 minutes Quality: Safe Use of Opioids Does Pt have an Active Cancer Diagnosis on the Problem List?: No Quality: Stroke Does the patient have a stroke diagnosis?: No Physical Exam Vital Signs: Vital Signs: Last Vital Signs Temp 97.5 F 11/28/22 07:32 Pulse 65 11/28/22 07:32 Resp 12 11/28/22 07:32 BP 138/78 11/28/22 07:32 Pulse Ox 93 11/28/22 07:32 O2 Del Method 11/28/22 07:32 BMI result Body Mass Index 35.2 General: AO X 3, no acute distress Resp: CTA bilateral, no accessory muscles used CVS: S1,S2,RRR GI: soft, non tender, non distended Neuro: motor grossly intact, alert Psych: appropriate affect, appropriate insight DS: Data Data Completed and Pending Labs on day of discharge: Laboratory Results - last 24 hr 11/27/22 11/27/22 11/27/22 11:27 17:09 20:45 WBC RBC Hgb Hct MCV MCH MCHC RDW Plt Count MPV Absolute Nucleated RBC Nucleated RBC % (auto) Sodium Potassium Chloride Carbon Dioxide Anion Gap BUN Creatinine Estim Creat Clear Calc Estimated GFR POC Glucose 368 H* 286 H 201 H Fasting Glucose Calcium 11/28/22 11/28/22 11/28/22 06:52 06:52 07:02 WBC 11.9 H RBC 3.85 L Hgb 9.8 L Hct 32.5 L MCV 84.4 MCH 25.5 L MCHC 30.2 L RDW 17.7 H Plt Count 223 MPV 11.8 Absolute Nucleated RBC 0.000 Nucleated RBC % (auto) 0.0 Sodium 138 Potassium 4.5 Chloride 102 Carbon Dioxide 28 Anion Gap 13 BUN 19 H Creatinine 0.69 Estim Creat Clear Calc 89.4 Estimated GFR > 60 POC Glucose 254 H Fasting Glucose 251 H Calcium 9.2 Discharge Plan Discharge Anticipated Discharge Date/Time: 11/28/22 08:28 Patient Disposition: Home, Self-Care Discharge Diagnosis: asthma Referrals: Ashwin Arzola III, MD [Primary Care Provider] - 1 Week Discharge Medications: New prednisone 20 mg tablet 40 mg PO DAILY Qty: 10 0RF Continued gabapentin 300 mg capsule 300 mg PO BID montelukast 10 mg tablet 10 mg PO BEDTIME (DME) lancets [OneTouch Delica Plus Lancet] 33 gauge misc See Rx Instructions .ROUTE BID Qty: 100 Rx Instructions: As directed diclofenac sodium 1 % gel 4 g topical BID PRN (Reason: Pain, Moderate) insulin glargine [Lantus Solostar U-100 Insulin] 100 unit/mL (3 mL) insulin pen 30 unit subcut DAILY duloxetine 60 mg capsule,delayed release(DR/EC) 60 mg PO DAILY duloxetine 20 mg capsule,delayed release(DR/EC) 20 mg PO DAILY aripiprazole 20 mg tablet 20 mg PO DAILY naproxen 500 mg tablet 500 mg PO BID albuterol sulfate 90 mcg/actuation HFA aerosol inhaler 2 puff inhalation Q4H PRN (Reason: wheezing) zolpidem 10 mg tablet 10 mg PO BEDTIME metoprolol succinate 25 mg tablet extended release 24 hr 25 mg PO DAILY gabapentin 100 mg capsule 100 mg PO BEDTIME omeprazole 20 mg capsule,delayed release(DR/EC) 20 mg PO QAM quetiapine 100 mg tablet 100 mg PO BEDTIME aspirin 81 mg tablet,delayed release (DR/EC) 81 mg PO DAILY clonazepam 1 mg tablet 1 mg PO BEDTIME amitriptyline 150 mg tablet 150 mg PO BEDTIME atorvastatin 80 mg tablet 80 mg PO BEDTIME Anoro Ellipta 62.5-25 mcg/actuation blister with device 1 ea inhalation DAILY metformin 500 mg tablet extended release 24 hr 500 mg PO QAM (DME) OneTouch Ultra Test Strip See Rx Instructions .ROUTE BID Qty: 10 Rx Instructions: As directed docusate sodium 100 mg capsule 100 mg PO BID PRN (Reason: constipation) Discharge Orders: Discharge Order (Routine); Ordered 11/28/22 Ordered By: Timmy Roger Diet: Advance to usual diet Activity on Discharge: As tolerated Stand Alone Forms: Patient Portal Discharge page Care Plan Goals: recovery Health Concerns: asthma Plan of Treatment: prednisone Assessment: see above
--- NOTE | 2022-11-28 09:06 | MHC.CM.PN ---
IMM 11/26/22 Patient is discharged to home today. [facility] [employer] will resume. Patient has arranged for transport home.
[2022-11-28 11:16] VITALS: PULSE 64; RESP 18; O2SAT 97
[2022-11-28 11:50] VITALS: BP 141/58; PULSE 80; RESP 14; TEMP 36.1; O2SAT 95
[2022-11-28 11:57] LABS: Glucose, Whole Blood 319 mg/dL (60-115)
== END 2022-11-28 13:50 | disposition home or self-care (01) | DRG 202 ==
LOC: HO.ED 19:31 → HO.EDOVER 22:31 → HO.IMC 11-26 16:18
PROVIDERS: Physician Assistant; Admitting Provider Student in an Organized Health Care Education/Training Program; Emergency Provider Internal Medicine; PCP Internal Medicine; Visit Provider Internal Medicine
DX: J45.21 Mild intermittent asthma with (acute) exacerbation (principal); I21.A1 Myocardial infarction type 2; I10 Essential (primary) hypertension; E78.2 Mixed hyperlipidemia; F39 Unspecified mood [affective] disorder; E11.65 Type 2 diabetes mellitus with hyperglycemia; Z88.0 Allergy status to penicillin; Z79.82 Long term (current) use of aspirin; Z79.84 Long term (current) use of oral hypoglycemic drugs; Z79.899 Other long term (current) drug therapy
CPT/HCPCS: 36415; 71046; 80048; 80076; 81001; 82947; 83735; 83880; 84484; 85025; 85027; 85379; 85610; 85730; 87086; 87635; 93005; 93306; 94640; 99222; 99285; J1643; J1650; J2920; Q9957

== ENCOUNTER 2022-12-16 08:09 | Emergency (ER) | payer OTHER, SELFPAY ==
[2022-12-16] VITALS (8 sets, daily range): BP systolic 105–162; BP diastolic 48–82; PULSE 67–80; RESP 13–16; TEMP 36.5–36.7; O2SAT 94–99; BMI 36.2
--- NOTE | ~2022-12-16 | CT_ITS ---
EXAMINATION: CT HEAD WITHOUT CONTRAST CLINICAL INFORMATION: Fall. COMPARISON: Head CT November 15, 2019. TECHNIQUE: Contiguous axial imaging was performed from the skull base to vertex without intravenous administration of contrast. There is some motion artifact on the acquired images. Image acquisition was repeated. This CT examination was performed using dose optimization techniques as appropriate, variously including the following: *Automated exposure control *Adjustment of mA and/or kV according to patient size (this includes techniques or standardized protocols for targeted exams where dose is matched to indication/reason for exam; i.e. extremities or head) *Use of iterative reconstruction technique DLP: 1598 mGy-cm. FINDINGS: There is no intracranial hemorrhage, large infarction, or mass lesion. There is no extra-axial collection. The ventricles are normal in size and configuration without evidence of hydrocephalus. The visualized paranasal sinuses and mastoid air cells are clear. The calvarium is intact without fracture. CT/CT head/brain wo IV con IMPRESSION: No acute intracranial abnormality.
--- NOTE | ~2022-12-16 | XR_ITS ---
EXAMINATION: XR SHOULDER, RIGHT CLINICAL INFORMATION: Right shoulder pain after falling COMPARISON: None TECHNIQUE: AP external rotation, Grashey, scapular Y, and axillary views of the right shoulder. FINDINGS: No evidence for acute fracture or dislocation. Glenohumeral joint space is maintained. Small spurring near the right greater tuberosity. The visualized right clavicle is intact. XR/XR shoulder RT min 2V IMPRESSION: No acute process. Small spurring near the right greater tuberosity.
--- NOTE | ~2022-12-16 | XR_ITS ---
EXAMINATION: XR LUMBOSACRAL SPINE CLINICAL INFORMATION: Fall with low back pain COMPARISON: February 2019. TECHNIQUE: Three views of the lumbosacral spine. FINDINGS: Mild levoscoliosis. No acute compression fractures seen. Sacrum grossly intact. Endplate spondylitic changes observed. Mild degenerative disc space narrowing L2-L4. There is multilevel facet arthrosis. XR/XR lumbar spine 2-3V IMPRESSION: No acute compression fracture. Degenerative changes as noted above.
--- NOTE | ~2022-12-16 | CT_ITS ---
EXAMINATION: CT CERVICAL SPINE WITHOUT CONTRAST CLINICAL INFORMATION: Fall with pain COMPARISON: None TECHNIQUE: Axial sections performed and bone and soft tissue windows without IV contrast enhancement. This CT examination was performed using dose optimization techniques as appropriate, variously including the following: *Automated exposure control *Adjustment of mA and/or kV according to patient size (this includes techniques or standardized protocols for targeted exams where dose is matched to indication/reason for exam; i.e. extremities or head) *Use of iterative reconstruction technique DLP: 380 mGy-cm FINDINGS: The odontoid and the condyles are unremarkable. No acute cervical compression fracture. Slight anterolisthesis C3-C4, C4-C5, and C5-C6. Multilevel facet arthrosis. Degenerative disc space narrowing noted C5-C7 with spondylitic changes. Spinous processes intact. C1 and C2 arches intact. Carotid atherosclerotic changes observed. No visible suspiciously enlarged adenopathy. CT/CT cervical spine wo IV con IMPRESSION: Multilevel degenerative changes. No evidence for acute bony fracture. Other incidental findings as noted above. Fleischner guidelines were followed.
--- NOTE | ~2022-12-16 | XR_ITS ---
EXAMINATION: XR CHEST CLINICAL INFORMATION: Fall, right upper back pain COMPARISON: 11/25/2022. TECHNIQUE: 2 views of the chest were obtained. Patient slightly rotated to the left. FINDINGS: No appreciable airspace consolidation or pleural effusion. No definite evidence for mediastinal widening. No evidence for vascular congestion. Small linear scar or atelectatic change observed anteriorly on the lateral view. XR/XR chest 2V IMPRESSION: Rotated evaluation. No focal infiltrates or effusions. Small linear scar or atelectatic change observed anteriorly.
--- NOTE | 2022-12-16 08:39 | ED_ITS ---
HPI - Fall General Chief Complaint: Fall Stated Complaint: FALL,BACK/R ELBOW PAIN,+THIN,?+LOC BEFORE FALL Time Seen by Provider: 12/16/22 08:27 Source: patient, family, EMS and research and development scientist Mode of arrival: EMS Limitations: no limitations and language barrier History of Present Illness HPI Narrative: 67 yo female with history of anxiety, asthma, HLD, hypertension, GERD, CVA on aspirin?, diabetes, recent admit for asthma exacerbation/NSTEMI (not thought to be secondary to ACS-recommended to have f.u stress test) here with complaints of fall. Per patient and daughter at bedside the patient has had multiple falls over the last 2 days. Patient tells me that she loses her balance and next thing that she knows she is on the ground. Patient is unsure if she has had loss of consciousness with these falls. She denies any preceding symptoms of dizziness, chest pain, shortness of breath, headache. Patient is unsure if she has hit her head. She is on aspirin. Patient reports she did have a fall yesterday in which she experienced lower back pain, right shoulder pain and right upper back pain after the fall. Patient reports she feels generally weak. Patient does live at home with her . Family is concerned over her multiple falls. Patient did have a fall this morning out of her bed and which s he did have approximately 2 hours of down time. She was unable to get up without assistance. Patient denies chest pain, shortness of breath, numbness or tingling in her lower extremities, bowel or bladder incontinence. Related Data Home Medications Medication Instructions Recorded Confirmed albuterol sulfate 90 mcg/actuation 2 puff inhalation Q4H PRN wheezing 09/27/22 11/25/22 aerosol inhaler amitriptyline 150 mg tablet 150 mg PO BEDTIME 09/27/22 11/25/22 aripiprazole 20 mg tablet 20 mg PO DAILY 09/27/22 11/25/22 aspirin 81 mg tablet,delayed 81 mg PO DAILY 09/27/22 11/25/22 release atorvastatin 80 mg tablet 80 mg PO BEDTIME 09/27/22 11/25/22 blood sugar diagnostic ([employer] #10 ea 09/27/22 Ultra Test strips) clonazepam 1 mg tablet 1 mg PO BEDTIME 09/27/22 11/25/22 diclofenac sodium 1 % topical gel 4 g topical BID PRN Pain, Moderate 09/27/22 11/25/22 docusate sodium 100 mg capsule 100 mg PO BID PRN constipation 09/27/22 11/25/22 duloxetine 20 mg capsule,delayed 20 mg PO DAILY 09/27/22 11/25/22 release duloxetine 60 mg capsule,delayed 60 mg PO DAILY 09/27/22 11/25/22 release gabapentin 100 mg capsule 100 mg PO BEDTIME diabetes mellitus 09/27/22 11/25/22 insulin glargine 100 unit/mL (3 30 unit subcut DAILY 09/27/22 11/25/22 mL) subcutaneous pen (Lantus Solostar U-100 Insulin) lancets 33 gauge ([employer] #100 ea 09/27/22 Plus Lancet) metformin 500 mg tablet,extended 500 mg PO QAM 09/27/22 11/25/22 release 24 hr metoprolol succinate 25 mg 25 mg PO DAILY 09/27/22 11/25/22 tablet,extended release 24 hr montelukast 10 mg tablet 10 mg PO BEDTIME 09/27/22 11/25/22 naproxen 500 mg tablet 500 mg PO BID 09/27/22 11/25/22 omeprazole 20 mg capsule,delayed 20 mg PO QAM 09/27/22 11/25/22 release quetiapine 100 mg tablet 100 mg PO BEDTIME 09/27/22 11/25/22 umeclidinium 62.5 mcg-vilanterol 1 ea inhalation DAILY 09/27/22 11/25/22 25 mcg/actuation powdr for inhalation (Anoro Ellipta) zolpidem 10 mg tablet 10 mg PO BEDTIME 09/27/22 11/25/22 gabapentin 300 mg capsule 300 mg PO BID 11/25/22 11/25/22 Previous Rx's Medication Instructions Recorded prednisone 20 mg tablet 40 mg PO DAILY #10 tabs 11/28/22 Allergies Allergy/AdvReac Type Severity Reaction Status Date / Time Penicillins Allergy Mild Swelling Verified 11/26/22 08:55 Review of Systems Review of Systems: Yes all other systems are reviewed and are negative Constitutional: Constitutional: Reports no additional constitutional complaints, Denies body ache(s), Denies chills, Denies fever(s), Denies headache(s) and Reports weakness Eyes: Eyes: Reports no additional eye complaints and Denies change in vision ENT: Reports system reviewed and no additional complaints, except as documented, Denies dizziness, Denies headache(s), Denies nasal congestion, Denies nasal discharge and Reports neck pain Cardiovascular: Cardiovascular: Reports no additional cardiovascular complaints, Denies chest pain, Denies leg edema and Denies dyspnea Respiratory: Respiratory: Reports no additional respiratory complaints, Denies cough and Denies dyspnea Gastrointestinal: Gastrointestinal: Reports no additional gastrointestinal complaints, Denies abdominal pain, Denies diarrhea, Denies nausea and Denies vomiting Genitourinary: Genitourinary: Reports no additional female genitourinary complaints and Denies urinary incontinence Musculoskeletal: Musculoskeletal: Reports no additional musculoskeletal complaints, Reports back pain, Reports arthralgias, Denies joint swelling, Reports neck pain, Denies numbness and Denies tingling Integumentary/Breasts: Skin/Breast: Reports system reviewed and no additional complaints, except as docu and Denies rash Neurologic: Reports system reviewed and no additional complaints, except as documented, Denies Abnormal speech present, Denies dizziness, Denies headache(s), Denies numbness, Denies tingling and Reports weakness PMFSH Past Medical History Attestation statement: The following information was validated with the patient. Source: old records reviewed and nursing notes reviewed Medical History Asthma Essential hypertension Insulin dependent type 2 diabetes mellitus Mixed hyperlipidemia Mood disorder Surgical History H/O: hysterectomy History of carpal tunnel release Hx of cataract surgery Hx of cholecystectomy Family History Family History Mother Myocardial infarction Father Myocardial infarction Sister Breast cancer Brother Spleen cancer Social History Social History Household Members: None Housing: Apartment Do you presently have visiting nurse or other home services: Yes (thru [employer]) Alcohol intake: never Patient Tobacco Use Status: Former Tobacco user Quit Date: 10/13/1987 Cigarette Packs Per Day: 3 Years Smoked: [id number] Advance Directives: No Advance Directives Information Provided: No service: No Current occupational status: retired Physical Exam Vital Signs: Vital Signs: Last Vital Signs Temp 97.9 F 12/16/22 16:00 Pulse 71 12/16/22 16:00 Resp 14 12/16/22 16:00 BP 105/48 L 12/16/22 16:00 Pulse Ox 94 12/16/22 16:00 O2 Del Method 12/16/22 16:00 BMI result Body Mass Index 36.2 Const: General: cooperative, healthy appearing, comfortable and no acute distress Orientation/consciousness: patient oriented x3 Limitations: no limitations HEENT: Head: Yes normal to inspection, No Matute's sign and No raccoon eyes Ears: hearing grossly normal bilaterally and TM's normal bilaterally General nose exam: Normal external nose present Face and sinus: Yes normal facial exam Mouth: Normal oral and palatal mucosa present Throat: Yes posterior oropharynx normal, Yes tonsils normal and Yes uvula midline Eyes: General: appearance normal, both eyes and all related structures Pupils: Equal, round and reactive pupils present Neck: Other: Patient was some midline cervical tenderness with no step-offs or deformities Neck: Yes normal visual inspection and Yes full ROM Chest: Chest palpation & inspection: normal inspection of the chest Resp: Effort & Inspection: normal respiratory effort Auscultation: clear to auscultation bilaterally Cardio: Rate: regular rate Rhythm: regular rhythm Peripheral pulses: Peripheral pulses 2+ throughout GI: Inspection: Yes normal to inspection Palpation (GI): Soft to palpation and nontender Auscultation: normal bowel sounds Back/Spine/Pelvis: Thoracic/Lumbar Spine: thoracic and lumbar spine normal to inspection Back/spine/pelvis image: 1. Mild tenderness. No crepitus, ecchymosis or de formity 2. Midline tenderness with no step-offs or deformities Skin: General skin exam: no rashes or lesions noted Neuro: Other: Patient with 4/5 strength in lower extremities General: patient oriented x3, moves all extremities, no focal motor deficits, normal sensation to monofilament and Unable to assess gait Cranial nerves: Yes CN's II-XII intact bilaterally, Yes Equal, round and reactive pupils present, Yes Bilaterally intact EOM present, Yes Nystagmus not present, Yes Normal facial strength present and Yes Midline tongue present Cognition (Neuro): normal cognition Speech: No Abnormal speech present Gait exam (Neuro): Unable to assess gait Sensory Exam: Normal double simultaneous stimulation for sensation Extrem: General: Yes normal to inspection, Yes no pedal edema and Yes no calf tenderness Course Course Course Narrative: Imaging shows no acute finding. Initial troponin indeterminate. EKG with no changes. Repeat troponin unchanged. Low concern for ACS. Patient with diffuse weakness. Family is concerned patient may need short-term rehab. A physical therapy evaluation and case management involvement were ordered. Patient placed in position observation pending disposition Medical Decision Making Medical Decision Making [facility] Narrative: 67-year-old female coming from home with multiple falls over the last 2 days which patient attributes to losing her balance. These have not been witnessed by family. Patient arrives with complaints of lower back pain, right upper back pain, right upper extremity pain, generalized weakness. May be mechanical. low concern for additional process such as syncope, orthostatic hypotension. Therefore will obtain labs, EKG, UA, CT head and cervical spine as well as x-rays of the lower back, right upper extremity. Patient may need physical therapy and short-term rehab if medically clear Differential Diagnosis Differential Diagnoses: The differential diagnosis associated with the presentation includes Syncope, mechanical fall, orthostatic hypotension, anemia, electrolyte abnormality, ACS, deconditioning, fracture versus contusion, ICH Lab Data [facility] Lab Attestation statement: I reviewed the patient's lab results. 12/16/22 10:36 12/16/22 10:36 Labs: Lab Results 12/16/22 12/16/22 12/16/22 Range/Units 10:27 10:27 10:36 WBC 6.6 (4.8-10.8) X10*3/uL RBC 4.35 (4.20-5.50) X10*6/uL Hgb 11.2 L (12.0-16.0) g/dl Hct 37.0 (37.0-47.0) % MCV 85.1 (80.0-98.0) fL MCH 25.7 L (27.0-33.0) pg MCHC 30.3 L (31.0-35.0) g/dl RDW 17.3 H (11.0-16.0) % Plt Count 216 (160-400) X10*3/uL MPV 10.9 (9.4-12.3) fL Immature Gran % (Auto) 0.3 (0.0-0.4) % Neut % (Auto) 68.5 (45-73) % Lymph % (Auto) 21.3 (20-40) % Gonzales % (Auto) 6.7 (2-11) % Eos % (Auto) 2.9 (0-4) % Baso % (Auto) 0.3 (0-2) % Lymph # (Auto) 1.4 (1.2-4.9) X10*3/uL Gonzales # (Auto) 0.4 (0.1-1.2) X10*3/uL Eos # (Auto) 0.2 (0.0-0.4) X10*3/uL Baso # (Auto) 0.0 (0.0-0.2) X10*3/uL Abs Immat Gran (auto) 0.02 (0.00-0.03) X10*3/uL Absolute Neuts (auto) 4.5 (2.0-8.3) x10*3/uL Absolute Nucleated RBC 0.000 (0.0-0.012) X10*3/uL Nucleated RBC % (auto) 0.0 (0.0-0.2) /100WBC Sodium (135-145) mmol/L Potassium (3.3-5.1) mmol/L Chloride (96-108) mmol/L Carbon Dioxide (22-29) mmol/L Anion Gap (12-20) BUN (9-16) mg/dL Creatinine (0.5-1.4) mg/dL Estim Creat Clear Calc Estimated GFR Random Glucose (60-115) mg/dL Calcium (8.4-10.2) mg/dL Magnesium (1.6-2.6) mg/dL Total Bilirubin (0.0-1.0) mg/dL Direct Bilirubin (0.0-0.5) mg/dL AST (5-31) U/L ALT (0-31) U/L Alkaline Phosphatase (39-117) U/L Total Creatine Kinase (26-140) U/L Troponin I High Sens (<3.5-17.0) ng/L Total Protein (6.5-8.0) g/dL Albumin (3.5-5.0) g/dL Urine Color Yellow Urine Appearance Cloudy Urine pH 5.5 (5.0-9.0) Ur Specific [place] 1.020 (1.005-1.025) Urine Protein Negative (Neg-Trace) mg/dL Urine Glucose (UA) Negative (Negative) mg/dL Urine Ketones Negative (Negative) mg/dL Urine Blood Negative (Negative) Urine Nitrite Negative (Negative) Ur Leukocyte Esterase Small (1+) H (Negative) Urine RBC 0-2 (0-2) /HPF Urine WBC 0-5 (0-5) /HPF Ur Squamous Epith Cells 6-10 (0-2) /HPF Urine Bacteria None Seen (None Seen) Hyaline Casts 3-5 (0-2) /LPF COVID-19 ([facility]) Negative (Negative) COVID-19 Clin Com See Note 12/16/22 12/16/22 12/16/22 Range/Units 10:36 10:36 13:28 WBC (4.8-10.8) X10*3/uL RBC (4.20-5.50) X10*6/uL Hgb (12.0-16.0) g/dl Hct (37.0-47.0) % MCV (80.0-98.0) fL MCH (27.0-33.0) pg MCHC (31.0-35.0) g/dl RDW (11.0-16.0) % Plt Count (160-400) X10*3/uL MPV (9.4-12.3) fL Immature Gran % (Auto) (0.0-0.4) % Neut % (Auto) (45-73) % Lymph % (Auto) (20-40) % Gonzales % (Auto) (2-11) % Eos % (Auto) (0-4) % Baso % (Auto) (0-2) % Lymph # (Auto) (1.2-4.9) X10*3/uL Gonzales # (Auto) (0.1-1.2) X10*3/uL Eos # (Auto) (0.0-0.4) X10*3/uL Baso # (Auto) (0.0-0.2) X10*3/uL Abs Immat Gran (auto) (0.00-0.03) X10*3/uL Absolute Neuts (auto) (2.0-8.3) x10*3/uL Absolute Nucleated RBC (0.0-0.012) X10*3/uL Nucleated RBC % (auto) (0.0-0.2) /100WBC Sodium 144 (135-145) mmol/L Potassium 3.5 D (3.3-5.1) mmol/L Chloride 102 (96-108) mmol/L Carbon Dioxide 33 H (22-29) mmol/L Anion Gap 13 (12-20) BUN 14 (9-16) mg/dL Creatinine 0.69 (0.5-1.4) mg/dL Estim Creat Clear Calc 90.7 Estimated GFR > 60 Random Glucose 99 (60-115) mg/dL Calcium 8.7 (8.4-10.2) mg/dL Magnesium 1.7 (1.6-2.6) mg/dL Total Bilirubin 0.4 (0.0-1.0) mg/dL Direct Bilirubin < 0.2 (0.0-0.5) mg/dL AST 19 (5-31) U/L ALT 23 (0-31) U/L Alkaline Phosphatase 103 (39-117) U/L Total Creatine Kinase 99 (26-140) U/L Troponin I High Sens 53.5 H* D 44.5 H (<3.5-17.0) ng/L Total Protein 7.2 (6.5-8.0) g/dL Albumin 4.0 (3.5-5.0) g/dL Urine Color Urine Appearance Urine pH (5.0-9.0) Ur Specific [place] (1.005-1.025) Urine Protein (Neg-Trace) mg/dL Urine Glucose (UA) (Negative) mg/dL Urine Ketones (Negative) mg/dL Urine Blood (Negative) Urine Nitrite (Negative) Ur Leukocyte Esterase (Negative) Urine RBC (0-2) /HPF Urine WBC (0-5) /HPF Ur Squamous Epith Cells (0-2) /HPF Urine Bacteria (None Seen) Hyaline Casts (0-2) /LPF COVID-19 ([facility]) (Negative) COVID-19 Clin Com Independent Interpretation I performed an independent interpretation of an: EKG, Plain X-Ray and CT Scan Interpretation: I independently reviewed the EKG which shows normal sinus rhythm with a rate of 65, normal IN, normal QRS, normal QT I independently reviewed the CT of the head and cervical spine agree with radiologist's report I independently reviewed the x-ray of the shoulder, lumbar spine and chest and agree with radiologist report Radiology Impression Discussion of test interpretation with radiology: I have reviewed the radiologist's reading. Radiologist Impression: [address] [address] [address] Scan Report Signed Patient: Melyssa Keating MR#: [id number] : 1955 Acct:[id number] Age/Sex: 67 / F ADM Date: 12/16/22 Loc: HO.ED Attending Dr: Ordering Physician: Michelle Fraser NP Date of Service: 12/16/22 Procedure(s): CT cervical spine wo IV con Accession Number(s): [id number] cc: Michelle Fraser NP~ EXAMINATION: CT CERVICAL SPINE WITHOUT CONTRAST CLINICAL INFORMATION: Fall with pain? COMPARISON: None? TECHNIQUE: Axial sections performed and bone and soft tissue windows without IV contrast enhancement.? This CT examination was performed using dose optimization techniques as appropriate, variously including the following: *Automated exposure control *Adjustment of mA and/or kV according to patient size (this includes techniques or standardized protocols for targeted exams where dose is matched to indication/reason for exam; i.e. extremities or head) *Use of iterative reconstruction technique DLP: 380 mGy-cm FINDINGS: The odontoid and the condyles are unremarkable. No acute cervical compression fracture. Slight anterolisthesis C3-C4, C4-C5, and C5-C6. Multilevel facet arthrosis. Degenerative disc space narrowing noted C5-C7 with spondylitic changes. Spinous processes intact. C1 and C2 arches intact. Carotid atherosclerotic changes observed. No visible suspiciously enlarged adenopathy. CT/CT cervical spine wo IV con IMPRESSION: Multilevel degenerative changes. No evidence for acute bony fracture. ? Other incidental findings as noted above.? ? Fleischner guidelines were followed. [address] [address] [address] Scan Report Signed Patient: Melyssa Keating MR#: [id number] : 1955 Acct:[id number] Age/Sex: 67 / F ADM Date: 12/16/22 Loc: HO.ED Attending Dr: Ordering Physician: Michelle Fraser NP Date of Service: 12/16/22 Procedure(s): CT head/brain wo IV con Accession Number(s): [id number] cc: Michelle Fraser NP~ EXAMINATION: CT HEAD WITHOUT CONTRAST CLINICAL INFORMATION: Fall. COMPARISON: Head CT November 15, 2019. TECHNIQUE: Contiguous axial imaging was performed from the skull base to vertex without intravenous administration of contrast. There is some motion artifact on the acquired images. Image acquisition was repeated. This CT examination was performed using dose optimization techniques as appropriate, variously including the following: *Automated exposure control *Adjustment of mA and/or kV according to patient size (this includes techniques or standardized protocols for targeted exams where dose is matched to indication/reason for exam; i.e. extremities or head) *Use of iterative reconstruction technique DLP: 1598 mGy-cm. FINDINGS: There is no intracranial hemorrhage, large infarction, or mass lesion. There is no extra-axial collection. The ventricles are normal in size and configuration without evidence of hydrocephalus. The visualized paranasal sinuses and mastoid air cells are clear. The calvarium is intact without fracture. CT/CT head/brain wo IV con IMPRESSION: No acute intracranial abnormality. FINDINGS: No appreciable airspace consolidation or pleural effusion. No definite evidence for mediastinal widening. No evidence for vascular congestion. Small linear scar or atelectatic change observed anteriorly on the lateral view. XR/XR chest 2V IMPRESSION: Rotated evaluation. No focal infiltrates or effusions. ? Small linear scar or atelectatic change observed anteriorly. FINDINGS: No appreciable airspace consolidation or pleural effusion. No definite evidence for mediastinal widening. No evidence for vascular congestion. Small linear scar or atelectatic change observed anteriorly on the lateral view. XR/XR chest 2V IMPRESSION: Rotated evaluation. No focal infiltrates or effusions. ? Small linear scar or atelectatic change observed anteriorly. [address] [address] XRay Report Signed Patient: Melyssa Keating MR#: [id number] : 1955 Acct:[id number] Age/Sex: 67 / F ADM Date: 12/16/22 Loc: HO.ED Attending Dr: Ordering Physician: Michelle Fraser NP Date of Service: 12/16/22 Procedure(s): XR shoulder RT min 2V Accession Number(s): [id number] cc: Michelle Fraser NP~ EXAMINATION: XR SHOULDER, RIGHT CLINICAL INFORMATION: Right shoulder pain after falling? COMPARISON: None? TECHNIQUE: AP external rotation, Grashey, scapular Y, and axillary views of the right shoulder. FINDINGS: No evidence for acute fracture or dislocation. Glenohumeral joint space is maintained. Small spurring near the right greater tuberosity. The visualized right clavicle is intact.? XR/XR shoulder RT min 2V IMPRESSION: No acute process. Small spurring near the right greater tuberosity. ? Independent Historian Clinical information obtained from an independent historian. History obtained from or confirmed by: Friend and EMS Discharge Plan Discharge Clinical Impression: Weakness Patient Disposition: Still a Patient Prescriptions: No Action gabapentin 300 mg capsule 300 mg PO BID prednisone 20 mg tablet 40 mg PO DAILY Qty: 10 0RF montelukast 10 mg tablet 10 mg PO BEDTIME (DME) lancets [OneTouch [employer] Plus Lancet] 33 gauge misc See Rx Instructions .ROUTE BID Qty: 100 Rx Instructions: As directed diclofenac sodium 1 % gel 4 g topical BID PRN (Reason: Pain, Moderate) insulin glargine [Lantus Solostar U-100 Insulin] 100 unit/mL (3 mL) insulin pen 30 unit subcut DAILY duloxetine 60 mg capsule,delayed release(DR/EC) 60 mg PO DAILY duloxetine 20 mg capsule,delayed release(DR/EC) 20 mg PO DAILY aripiprazole 20 mg tablet 20 mg PO DAILY naproxen 500 mg tablet 500 mg PO BID albuterol sulfate 90 mcg/actuation HFA aerosol inhaler 2 puff inhalation Q4H PRN (Reason: wheezing) zolpidem 10 mg tablet 10 mg PO BEDTIME metoprolol succinate 25 mg tablet extended release 24 hr 25 mg PO DAILY gabapentin 100 mg capsule 100 mg PO BEDTIME omeprazole 20 mg capsule,delayed release(DR/EC) 20 mg PO QAM quetiapine 100 mg tablet 100 mg PO BEDTIME aspirin 81 mg tablet,delayed release (DR/EC) 81 mg PO DAILY clonazepam 1 mg tablet 1 mg PO BEDTIME amitriptyline 150 mg tablet 150 mg PO BEDTIME atorvastatin 80 mg tablet 80 mg PO BEDTIME Anoro Ellipta 62.5-25 mcg/actuation blister with device 1 ea inhalation DAILY metformin 500 mg tablet extended release 24 hr 500 mg PO QAM (DME) OneTouch Ultra Test Strip See Rx Instructions .ROUTE BID Qty: 10 Rx Instructions: As directed docusate sodium 100 mg capsule 100 mg PO BID PRN (Reason: constipation)
--- NOTE | 2022-12-16 08:57 | ECG_ITS ---
Test Reason : DIZZINESS Blood Pressure : / mmHG Vent. Rate : 065 BPM Atrial Rate : 065 BPM P-R Int : 176 ms QRS Dur : 078 ms QT Int : 398 ms P-R-T Axes : 060 018 005 degrees QTc Int : 413 ms Normal sinus rhythm Normal ECG When compared with ECG of 25-NOV-2022 17:57, No significant change was found Referred By: Michelle Cota Electronically Signed By:GINGER MARLEY
[2022-12-16 10:41] LABS: MANUAL DIFF FLAG NO
[2022-12-16 10:42] LABS: Basophils Percent Auto 0.3 % (0-2); Eosinophils Absolute Auto 0.2 X10*3/uL (0.0-0.4); Eosinophils Percent Auto 2.9 % (0-4); Hemoglobin 11.2 g/dl (12.0-16.0); Imm Gran Abs Auto 0.02 X10*3/uL (0.00-0.03); Imm Gran Pct Auto 0.3 % (0.0-0.4); Lymphocytes Absolute Auto 1.4 X10*3/uL (1.2-4.9); Lymphocytes Percent Auto 21.3 % (20-40); Mean Corpuscular HGB Conc 30.3 g/dl (31.0-35.0); Mean Corpuscular Hemoglobin 25.7 pg (27.0-33.0); Mean Corpuscular Volume 85.1 fL (80.0-98.0); Mean Platelet Volume 10.9 fL (9.4-12.3); Monocytes Absolute Auto 0.4 X10*3/uL (0.1-1.2); Monocytes Percent Auto 6.7 % (2-11); Neutrophils Absolute Auto 4.5 x10*3/uL (2.0-8.3); Neutrophils Percent Auto 68.5 % (45-73); Platelet Count 216 X10*3/uL (160-400); Red Blood Count 4.35 X10*6/uL (4.20-5.50); Red Cell Distribution Width 17.3 % (11.0-16.0); White Blood Count 6.6 X10*3/uL (4.8-10.8)
[2022-12-16 10:45] LABS: Appearance Urine Cloudy; Color Urine Yellow; Glucose Urine UA Negative (Negative); Leukocyte Esterase Urine Small (1+) (Negative); Nitrite Urine Negative (Negative); PH 5.5 (5.0-9.0); UMIC TRIGGER UACC YES; Urine Blood Negative (Negative); Urine Ketones Negative (Negative); Urine Protein Negative (Neg-Trace)
[2022-12-16 10:54] LABS: COVID-19 Test Negative (Negative); IDNOW Serial# BCCEAD1C
[2022-12-16 10:58] LABS: Bacteria Urine None Seen (None Seen); RBC Urine 0-2 /HPF (0-2); UACC Culture Trigger YES; WBC Urine 0-5 /HPF (0-5)
[2022-12-16 11:00] LABS: Alanine Aminotransferase 23 U/L (0-31); Alkaline Phosphatase 103 U/L (39-117); Anion Gap 13 (12-20); Aspartate Amino Transferase 19 U/L (5-31); Bilirubin Direct < 0.2 mg/dL (0.0-0.5); Bilirubin Total 0.4 mg/dL (0.0-1.0); Blood Urea Nitrogen 14 mg/dL (9-16); Calcium 8.7 mg/dL (8.4-10.2); Carbon Dioxide 33 mmol/L (22-29); Chloride 102 mmol/L (96-108); Creatinine Clr Calc Pharmacy 90.7; Estimated Glomerular Filt Rate > 60; Glucose Random 99 mg/dL (60-115); Magnesium 1.7 mg/dL (1.6-2.6); Potassium 3.5 mmol/L (3.3-5.1); Sodium 144 mmol/L (135-145); Total Protein 7.2 g/dL (6.5-8.0)
[2022-12-16 11:13] LABS: Troponin-I High Sensitivity 53.5 ng/L (<3.5-17.0)
[2022-12-16 14:11] LABS: Troponin-I High Sensitivity 44.5 ng/L (<3.5-17.0)
--- NOTE | 2022-12-16 19:01 | PC.NURSE ---
assumed care of pt at 1900, pt sitting in bed eating [employer], family at bedside. pt is using a bedside commode and ambulating with a walker. pt denies any pain at this time. pt pending case management.
--- NOTE | 2022-12-16 20:21 | PC.NURSE ---
pt moved to private room, sleeping, RR even and unlabored, call godfrey at bedside, bed locked in lowest position.
--- NOTE | 2022-12-16 20:41 | MHC.CM.ED ---
CM met with patient, family and medical office supervisor, as pt is Hungarian speaking only. A&Ox4. Pt lives alone,. Has [employer]IDENT INSPECTOR from [employer] 2 hours am and 2 hours pm/7 days a week. Uses a cane and rollator. Pt has had frequent falls, states she does use her walker in her apartment. Pfizerx2/Moderna x2. HCP/daughter Maddie Chen ([phone]). Copy obtained and uploaded into [facility] and [facility] [place] tarpipe. PT recommends STR. Will place referrals with SNF that contract with patient's insurance. Pt does want to stay locally. Explained to patient and family that was the goal, but beds are difficult to obtain due to local facilities closing. Will review offers in the morning and patient can choose at that time. Pt has no requests. CM will follow for discharge planning.
--- NOTE | 2022-12-16 21:17 | PHA.MEDREC ---
Pharmacy Consult ? Medication Reconciliation Pharmacy has completed the medication reconciliation. SPOKE WITH PT USING TANGLED YARN SPOOL STRAIGHTENER
[2022-12-17] MEDS: NaPROXEN 500 MG TABLET PO ×3 (00:35→20:50)
[2022-12-17] MEDS: Gabapentin 100 MG CAPSULE PO ×2 (00:36→20:50)
[2022-12-17] MEDS: Furosemide 40 MG TABLET PO ×3 (00:36→20:51)
[2022-12-17] MEDS: clonazePAM 1 MG TABLET PO ×2 (00:36→20:51)
[2022-12-17] MEDS: Gabapentin 300 MG CAPSULE PO ×3 (00:37→20:51)
[2022-12-17] MEDS: Atorvastatin Calcium 80 MG TABLET PO ×2 (00:37→20:51)
[2022-12-17] MEDS: Zolpidem Tartrate 5 MG TABLET 10 MG PO ×2 (00:47→20:50)
[2022-12-17] MEDS: QUEtiapine Fumarate 100 MG TABLET PO ×2 (00:47→20:50)
[2022-12-17] MEDS: Montelukast Sodium 10 MG TABLET PO ×2 (00:47→20:51)
[2022-12-17] MEDS: Amitriptyline HCl 50 MG TABLET 150 MG PO ×2 (00:55→21:36)
--- NOTE | 2022-12-17 05:36 | PC.NURSE ---
pt is currently asleep., respirations even and unlabored, in no apparent distress at this time.
[2022-12-17 05:37] VITALS: RESP 16
[2022-12-17 05:53] VITALS: BP 164/58; PULSE 86; RESP 16; TEMP 36.6; O2SAT 94
--- NOTE | 2022-12-17 08:30 | MHC.EDTECH ---
patient asked for help to the commode. Patient was able to use the commode without issue.
[2022-12-17] MEDS: DULoxetine HCl 20 MG CAPSULE.DR PO (09:42)
[2022-12-17] MEDS: Metoprolol Succinate ER 25 MG TAB.ER.24H PO (09:42)
[2022-12-17] MEDS: Aspirin Enteric Coated 81 MG TABLET.DR PO (09:42)
[2022-12-17] MEDS: ARIPiprazole 20 MG TABLET PO (09:42)
[2022-12-17] MEDS: Omeprazole 20 MG CAPSULE.DR PO (09:42)
[2022-12-17] MEDS: DULoxetine HCl 60 MG CAPSULE.DR PO (09:42)
[2022-12-17] MEDS: Insulin Glargine,Hum.rec.anlog 100 UNIT/ML 10 ML VIAL 30 UNIT SUBCUT (09:43)
[2022-12-17] MEDS: metFORMIN HCl ER 500 MG TAB.ER.24H PO (09:43)
[2022-12-17 09:50] VITALS: BP 157/56; PULSE 81; RESP 13; O2SAT 95
--- NOTE | 2022-12-17 10:03 | MHC.CM.ED ---
Patient remains in ER. Clinical updates sent to facilities still following patient: [facility], [facility], [facility], [facility], and [facility]. Continue to monitor for d/c needs.
--- NOTE | 2022-12-17 10:53 | PC.NURSE ---
assumed care of patient, pt resting comfortably in hospital bed, bed alarm on, fall precautions in place, VSS.
--- NOTE | 2022-12-17 11:25 | MHC.CM.ED ---
[facility] is able to offer a bed.met with patient and daughter, Celina. Both accept bed. [facility] has been asked to go for insurance auth. Continue to monitor for d/c needs.
--- NOTE | 2022-12-17 13:22 | PC.NURSE ---
lunch tray delivered and set up for patient
--- NOTE | 2022-12-17 15:08 | PC.NURSE ---
Assumed care of patient, pt resting comfortably in bed.
--- NOTE | 2022-12-17 17:49 | MHC.CM.ED ---
Still no auth for STR at [facility]. ? d/c tomorrow. Will follow for discharge planning.
[2022-12-17 18:23] VITALS: BP 136/65; PULSE 76; RESP 20; TEMP 36.6; O2SAT 97
[2022-12-17 22:00] VITALS: BP 139/55; PULSE 85; RESP 16; O2SAT 99
--- NOTE | 2022-12-17 22:25 | PC.NURSE ---
PATIENT HELPED WITH +1 ASSIST TO COMMODE BY RN. PATIENT REPOSITIONED SAFELY BACK IN BED, CALL LIGHT WITHIN REACH. ALL MEDICATIONS PASSED WITHOUT ISSUE. PATIENT ABLE TO SWALLOW PILLS WHOLE WITH WATER
[2022-12-18 07:36] VITALS: BP 178/73; PULSE 70; RESP 16; TEMP 36.6; O2SAT 98
[2022-12-18] MEDS: Aspirin Enteric Coated 81 MG TABLET.DR PO (09:10)
[2022-12-18] MEDS: Omeprazole 20 MG CAPSULE.DR PO (09:10)
[2022-12-18] MEDS: NaPROXEN 500 MG TABLET PO (09:11)
[2022-12-18] MEDS: DULoxetine HCl 20 MG CAPSULE.DR PO (09:11)
[2022-12-18] MEDS: DULoxetine HCl 60 MG CAPSULE.DR PO (09:11)
[2022-12-18] MEDS: Furosemide 40 MG TABLET PO (09:12)
[2022-12-18] MEDS: ARIPiprazole 20 MG TABLET PO (09:12)
[2022-12-18] MEDS: metFORMIN HCl ER 500 MG TAB.ER.24H PO (09:12)
[2022-12-18] MEDS: Metoprolol Succinate ER 25 MG TAB.ER.24H PO (09:12)
[2022-12-18] MEDS: Gabapentin 300 MG CAPSULE PO (09:13)
[2022-12-18] MEDS: Insulin Glargine,Hum.rec.anlog 100 UNIT/ML 10 ML VIAL 30 UNIT SUBCUT (09:13)
--- NOTE | 2022-12-18 13:17 | PC.NURSE ---
Report given to SAULO at [facility].
== END 2022-12-18 14:13 | disposition skilled nursing facility (03) ==
PROVIDERS: Nurse Practitioner Family; Emergency Provider Emergency Medicine; PCP Internal Medicine
DX: R53.1 Weakness (principal); M54.50 Low back pain, unspecified; R29.6 Repeated falls; Z91.81 History of falling; Z20.822 Contact with and (suspected) exposure to COVID-19; E11.9 Type 2 diabetes mellitus without complications; I10 Essential (primary) hypertension; E78.5 Hyperlipidemia, unspecified; Z79.02 Long term (current) use of antithrombotics/antiplatelets; Z79.82 Long term (current) use of aspirin; Z79.899 Other long term (current) drug therapy; Z79.4 Long term (current) use of insulin
CPT/HCPCS: 36415; 70450; 71046; 72100; 72125; 73030; 80048; 80076; 81001; 82550; 83735; 84484; 85025; 87086; 87635; 93005; 97161; 99285

== ENCOUNTER 2023-05-22 09:13 | Emergency (ER) | payer OTHER, SELFPAY ==
--- NOTE | ~2023-05-22 | CT_ITS ---
EXAMINATION: CT HEAD WITHOUT CONTRAST CT CERVICAL SPINE WITHOUT CONTRAST CLINICAL INFORMATION: Head strike. COMPARISON: CT head and cervical spine 12/16/2022. TECHNIQUE: Armature Tester images were obtained. CT imaging of the head and cervical spine was performed without contrast. Data was reformatted into multiplanar images at the acquisition workstation. This CT examination was performed using dose optimization techniques as appropriate, including one or more of the following: Automated exposure control, iterative reconstruction, and adjustment of technique factors (mA and/or kVp) according to patient size (this includes techniques or standardized protocols for targeted exams where dose is matched to indication/reason for exam). Fleischner Society criteria for the followup of incidental pulmonary nodules was implemented if appropriate. DLP: 1462 mGy-cm. FINDINGS: Head: There is no acute intracranial hemorrhage or abnormal extra-axial collection. No intracranial mass effect or midline shift. Lateral and third ventricles are normal. No hydrocephalus. Oneill-white matter differentiation is preserved and there is no evidence of acute territorial infarct. The calvarium and skull base are intact. Mastoid air cells and middle ear cavities are well aerated. No active paranasal sinus disease. Globes and orbits are grossly symmetric. Cervical spine: There is slight anterolisthesis of C4-C5 related to advanced facet degenerative changes at this level. Vertebral heights are preserved. No evidence of acute cervical spinal fracture. No abnormal prevertebral soft tissue swelling. Grossly no spinal canal compromise. Atheromatous calcification involves both carotid bifurcations. Visualized soft tissues of the neck are otherwise unremarkable. Lung apices are clear. CT/CT cervical spine wo IV con IMPRESSION: Head: No evidence of acute territorial infarct or hemorrhage. Cervical spine: No evidence of acute cervical spine fracture and no posttraumatic spinal subluxation. There is slight anterolisthesis of C4-C5 related to advanced facet degenerative changes at this level.
--- NOTE | ~2023-05-22 | XR_ITS ---
EXAMINATION: XR CHEST 2 VIEW CLINICAL INFORMATION: Fall COMPARISON: 12/16/2022 TECHNIQUE: AP semiupright and lateral views of the chest obtained. FINDINGS: Examination is technically limited. Despite multiple attempts, the patient's abdomen could not be positioned outside of the frontal radiograph The visualized lungs are clear. There are no pleural effusions. The cardiac silhouette is enlarged but stable. XR/XR chest 2V IMPRESSION: Limited though grossly clear chest x-ray. Cardiomegaly.
[2023-05-22 09:20] VITALS: BP 146/70; PULSE 66; O2SAT 96
[2023-05-22 09:29] VITALS: BP 150/77; PULSE 66; RESP 18; TEMP 36.4; O2SAT 98; BMI 29.1
--- NOTE | 2023-05-22 10:22 | ED_ITS ---
HPI - General Adult General Chief complaint: Fall Stated complaint: Fall Time Seen by Provider: 05/22/23 10:22 Source: patient, family (patient's daughter), EMS and display mechanic Mode of arrival: EMS Limitations: language barrier History of Present Illness HPI narrative: Patient is a 68 year old assigned female at with a history of asthma, dementia, NSTEMI, and DM presenting to the emergency department today after a fall. Patient states that she slid down while at home and couldn't get back up. Patient states that she had to wait for her daughter to find her. Patient states that she was having some neck pain but that has since resolved. Patient denies any dizziness, lightheadedness, abdominal pain, nausea, vomiting, fever, chills, blurry vision, double vision, loss of vision, chest pain, difficulty breathing, shortness of breath, back pain, night sweats, pain with urination, increased urinary frequency, increased urinary urgency, blood in her urine or stool, syncope or a near syncopal episode, bowel incontinence, bladder incontinence, bowel retention, bladder retention, or any other complaints at this time. Onset (ago): hour(s) Location: neck Radiation: non-radiation Severity: mild Severity scale (1-10): 3 Quality: aching and dull Pain Consistency: now resolved Relieving factors: none Exacerbating factors: none Associated symptoms: denies other symptoms Treatments prior to arrival: none Related Data Home Medications Medication Instructions Recorded Confirmed albuterol sulfate 90 mcg/actuation 2 puff inhalation Q4H PRN wheezing 09/27/22 12/16/22 aerosol inhaler amitriptyline 150 mg tablet 150 mg PO BEDTIME 09/27/22 12/16/22 aripiprazole 20 mg tablet 20 mg PO DAILY 09/27/22 12/16/22 aspirin 81 mg tablet,delayed 81 mg PO DAILY 09/27/22 12/16/22 release atorvastatin 80 mg tablet 80 mg PO BEDTIME 09/27/22 12/16/22 blood sugar diagnostic [facility] Ultra Test strips) clonazepam 1 mg tablet 1 mg PO BEDTIME 09/27/22 12/16/22 duloxetine 20 mg capsule,delayed 20 mg PO DAILY 09/27/22 12/16/22 release duloxetine 60 mg capsule,delayed 60 mg PO DAILY 09/27/22 12/16/22 release gabapentin 100 mg capsule 100 mg PO BEDTIME diabetes mellitus 09/27/22 12/16/22 insulin glargine 100 unit/mL (3 30 unit subcut DAILY 09/27/22 12/16/22 mL) subcutaneous pen (Lantus Solostar U-100 Insulin) lancets 33 gauge (Urvashi Delgraciela #100 ea 09/27/22 Plus Lancet) metformin 500 mg tablet,extended 500 mg PO DAILY 09/27/22 12/16/22 release 24 hr metoprolol succinate 25 mg 25 mg PO DAILY 09/27/22 12/16/22 tablet,extended release 24 hr montelukast 10 mg tablet 10 mg PO BEDTIME 09/27/22 12/16/22 naproxen 500 mg tablet 500 mg PO BID 09/27/22 12/16/22 omeprazole 20 mg capsule,delayed 20 mg PO DAILY 09/27/22 12/16/22 release quetiapine 100 mg tablet 100 mg PO BEDTIME 09/27/22 12/16/22 umeclidinium 62.5 mcg-vilanterol 1 ea inhalation DAILY 09/27/22 12/16/22 25 mcg/actuation powdr for inhalation (Anoro Ellipta) zolpidem 10 mg tablet 10 mg PO BEDTIME 09/27/22 12/16/22 gabapentin 300 mg capsule 300 mg PO BID 11/25/22 12/16/22 albuterol sulfate 2.5 mg/3 mL 1 vial inhalation Q4H PRN wheezing 12/16/22 12/16/22 (0.083 %) solution for nebulization furosemide 40 mg tablet 1 tab PO BID 12/16/22 12/16/22 lidocaine 1.8 % topical patch 1 patch topical DAILY 12/16/22 12/16/22 (ZTlido) Previous Rx's Medication Instructions Recorded clonazepam 1 mg tablet (Klonopin) 1 mg PO BEDTIME #10 tabs 12/18/22 Allergies Allergy/AdvReac Type Severity Reaction Status Date / Time Penicillins Allergy Mild Swelling Verified 11/26/22 08:55 Review of Systems Constitutional: Constitutional: Reports no additional constitutional complaints, Denies chills, Denies fever(s) and Denies night sweats Eyes: Eyes: Reports no additional eye complaints, Denies blurry vision, Denies change in vision, Denies diplopia, Denies eye discharge, Denies loss of vision and Denies eye pain ENT: Denies dizziness and Reports neck pain (now resolved) Cardiovascular: Cardiovascular: Reports no additional cardiovascular complaints, Denies chest pain, Denies lightheadedness, Denies Loss of Consciousness and Denies dyspnea Respiratory: Respiratory: Reports no additional respiratory complaints and Denies dyspnea Gastrointestinal: Gastrointestinal: Reports no additional gastrointestinal complaints, Denies abdominal pain, Denies melena, Denies hematochezia, Denies change in bowel habits and Denies change in stool character Genitourinary: Genitourinary: Denies hematuria, Denies urinary frequency, Denies dysuria, Denies urinary incontinence, Denies urinary hesitancy and Denies urinary urgency Musculoskeletal: Musculoskeletal: Reports no additional musculoskeletal com plaints, Reports neck pain (now resolved), Denies numbness and Denies tingling Neurologic: Denies dizziness, Denies loss of vision, Denies numbness and Denies tingling Psychiatric: Psychiatric: Reports no additional psychiatric complaints Endocrine: Endocrine: Reports no additional endocrine complaints Hematologic/Lymphatic: Hematologic/Lymphatic: Reports no additional hematologic/lymphatic complaints Allergic/Immunologic: Allergic/Immunologic: Reports no additional allergic/immunologic complaints PMFSH Past Medical History Attestation statement: The following information was validated with the patient. (all information was validated with the patient's daughter) Source: old records reviewed and obtained from family (patient's daughter provided additional history and confirmed the history provided by the patient and EMS) Medical History Asthma Essential hypertension Insulin dependent type 2 diabetes mellitus Mixed hyperlipidemia Mood disorder Surgical History H/O: hysterectomy History of carpal tunnel release Hx of cataract surgery Hx of cholecystectomy Family History Family History Mother Myocardial infarction Father Myocardial infarction Sister Breast cancer Brother Spleen cancer Social History Social History Household Members: None Housing: Apartment Do you presently have visiting nurse or other home services: Yes (thru [employer]) Alcohol intake: never Patient Tobacco Use Status: Former Tobacco user Quit Date: 10/13/1987 Cigarette Packs Per Day: 3 Years Smoked: [id number] Advance Directives: No Advance Directives Information Provided: Yes service: No Current occupational status: retired Physical Exam ED Vital Signs: Vital Signs - 24 hr 05/22/23 09:29 05/22/23 14:27 Temperature 97.6 F Pulse Rate 66 66 Respiratory Rate 18 16 Blood Pressure 150/77 H 132/50 L Pulse Oximetry 98 98 Oxygen Delivery Method Room Air Room Air BMI result Body Mass Index 29.1 Const General: cooperative, no acute distress, alert and awake Nutritional Appearance: well nourished Orientation/consciousness: patient oriented x3 Limitations: no limitations HENMT Head: Yes normal to inspection and Yes atraumatic Ears: hearing grossly normal bilaterally and external ears normal General nose exam: Normal external nose present, no nasal discharge noted and no epistaxis Face and sinus: Yes normal facial exam, No abrasion and No laceration Mouth: Normal oral and palatal mucosa present, no drooling and no muffled voice Eyes General: appearance normal, both eyes and all related structures Periorbital: periorbital findings normal Eyelids: Yes eyelids normal Conjunctivae: conjunctivae normal Pupils: Equal, round and reactive pupils present EOM: EOMs intact bilaterally Neck Neck: Yes normal visual inspection, Yes full ROM and Yes no lymphadenopathy Chest Chest palpation & inspection: normal inspection of the chest Resp Effort & Inspection: normal respiratory effort and able to speak in complete sentences Auscultation: clear to auscultation bilaterally Cardio Rate: regular rate Rhythm: regular rhythm GI Inspection: Yes normal to inspection Palpation (GI): Soft to palpation, not firm, nontender and no guarding Neuro General: patient oriented x3 and moves all extremities Cranial nerves: Yes Equal, round and reactive pupils present Cognition (Neuro): normal cognition Motor exam (neuro): 5/5 motor strength present throughout Sensory Exam: Normal double simultaneous stimulation for sensation Coordination: [id number] test normal Extrem General: Yes normal to inspection, Yes full ROM and Yes capillary refill normal Psych Appearance: grossly normal Mental Status: mental status grossly normal Affect: normal affect Attitude: cooperative Thought process: Normal thought process present Thought content: Normal thought content present Insight: Good insight present (Psych) Medical Decision Making Medical Decision Making MDM Narrative: Patient is a 68 year old assigned female at with a history of asthma, HTN, NSTEMI, and DM presenting to the emergency department today after a fall. Patient's physical exam was unremarkable. Patient's blood work was unremarkable. Patient's urine showed no acute process. Patient's EKG was unremarkable. Patient's chest x-ray, head CT, and C-Spine CT showed no acute process. I explained my physical exam findings as well as all test results to the patient and the patient's daughter. I answered all questions asked by the patient and the patient's daughter. I stressed the importance of the patient taking her medication as prescribed. I stressed the importance of the patient following up with her primary care provider. I stressed the importance of the patient returning to the emergency department immediately if her symptoms were to worsen or if she were to develop any dizziness, shortness of breath, difficulty breathing, chest pain, blurry vision, loss of vision, nausea, vomiting, abdominal pain, fever, chills, back pain, or any other complaints. Patient and the patient's daughter verbalized agreement and understanding with this [facility] plan and discharge. Differential Diagnosis Differential Diagnoses: The differential diagnosis associated with the presentation includes Fall Neck strain Neck pain Neck sprain Admission/Observation Consideration of admission/observation: Escalation of care including admission/observation considered Patient would have been admitted to the hospital had her work up had any findings where hospital admission was appropriate and her clinical presentation warranted hospital admission. Lab Data MDM Lab Attestation statement: I reviewed the patient's lab results. My interpretation of these studies and their corresponding values is that they are grossly normal. 05/22/23 11:08 05/22/23 11:08 Labs: Lab Results 05/22/23 05/22/23 05/22/23 Range/Units 11:08 11:08 11:08 WBC 6.1 (4.8-10.8) X10*3/uL RBC 4.87 (4.20-5.50) X10*6/uL Hgb 11.7 L (12.0-16.0) g/dl Hct 39.5 (37.0-47.0) % MCV 81.1 (80.0-98.0) fL MCH 24.0 L (27.0-33.0) pg MCHC 29.6 L (31.0-35.0) g/dl RDW 18.4 H (11.0-16.0) % Plt Count 225 (160-400) X10*3/uL MPV 10.8 (9.4-12.3) fL Immature Gran % (Auto) 0.5 H (0.0-0.4) % Neut % (Auto) 63.2 (45-73) % Lymph % (Auto) 24.1 (20-40) % Mitchell % (Auto) 7.5 (2-11) % Eos % (Auto) 4.2 H (0-4) % Baso % (Auto) 0.5 (0-2) % Lymph # (Auto) 1.5 (1.2-4.9) X10*3/uL Mitchell # (Auto) 0.5 (0.1-1.2) X10*3/uL Eos # (Auto) 0.3 (0.0-0.4) X10*3/uL Baso # (Auto) 0.0 (0.0-0.2) X10*3/uL Abs Immat Gran (auto) 0.03 (0.00-0.03) X10*3/uL Absolute Neuts (auto) 3.9 (2.0-8.3) x10*3/uL Absolute Nucleated RBC 0.000 (0.0-0.012) X10*3/uL Nucleated RBC % (auto) 0.0 (0.0-0.2) /100WBC Sodium 141 (135-145) mmol/L Potassium 3.9 (3.3-5.1) mmol/L Chloride 105 (96-108) mmol/L Carbon Dioxide 27 (22-29) mmol/L Anion Gap 13 (12-20) BUN 11 (9-16) mg/dL Creatinine 0.72 (0.5-1.4) mg/dL Estim Creat Clear Calc 76.8 Estimated GFR > 60 Random Glucose 134 H (60-115) mg/dL Calcium 9.7 D (8.4-10.2) mg/dL Magnesium 1.8 (1.6-2.6) mg/dL Total Bilirubin 0.4 (0.0-1.0) mg/dL AST 19 (5-31) U/L ALT 16 (0-31) U/L Alkaline Phosphatase 91 (39-117) U/L Total Creatine Kinase 136 (26-140) U/L Troponin I High Sens 30.7 H (<3.5-17.0) ng/L Total Protein 7.8 (6.5-8.0) g/dL Albumin 3.9 (3.5-5.0) g/dL Urine Color Urine Appearance Urine pH (5.0-9.0) Ur Specific Newton (1.005-1.025) Urine Protein (Neg-Trace) mg/dL Urine Glucose (UA) (Negative) mg/dL Urine Ketones (Negative) mg/dL Urine Blood (Negative) Urine Nitrite (Negative) Ur Leukocyte Esterase (Negative) 05/22/23 05/22/23 Range/Units 11:08 13:21 WBC (4.8-10.8) X10*3/uL RBC (4.20-5.50) X10*6/uL Hgb (12.0-16.0) g/dl Hct (37.0-47.0) % MCV (80.0-98.0) fL MCH (27.0-33.0) pg MCHC (31.0-35.0) g/dl RDW (11.0-16.0) % Plt Count (160-400) X10*3/uL MPV (9.4-12.3) fL Immature Gran % (Auto) (0.0-0.4) % Neut % (Auto) (45-73) % Lymph % (Auto) (20-40) % Mitchell % (Auto) (2-11) % Eos % (Auto) (0-4) % Baso % (Auto) (0-2) % Lymph # (Auto) (1.2-4.9) X10*3/uL Mitchell # (Auto) (0.1-1.2) X10*3/uL Eos # (Auto) (0.0-0.4) X10*3/uL Baso # (Auto) (0.0-0.2) X10*3/uL Abs Immat Gran (auto) (0.00-0.03) X10*3/uL Absolute Neuts (auto) (2.0-8.3) x10*3/uL Absolute Nucleated RBC (0.0-0.012) X10*3/uL Nucleated RBC % (auto) (0.0-0.2) /100WBC Sodium (135-145) mmol/L Potassium (3.3-5.1) mmol/L Chloride (96-108) mmol/L Carbon Dioxide (22-29) mmol/L Anion Gap (12-20) BUN (9-16) mg/dL Creatinine (0.5-1.4) mg/dL Estim Creat Clear Calc Estimated GFR Random Glucose (60-115) mg/dL Calcium (8.4-10.2) mg/dL Magnesium (1.6-2.6) mg/dL Total Bilirubin (0.0-1.0) mg/dL AST (5-31) U/L ALT (0-31) U/L Alkaline Phosphatase (39-117) U/L Total Creatine Kinase (26-140) U/L Troponin I High Sens 30.6 H (<3.5-17.0) ng/L Total Protein (6.5-8.0) g/dL Albumin (3.5-5.0) g/dL Urine Color Yellow Urine Appearance Clear Urine pH 5.5 (5.0-9.0) Ur Specific Newton 1.010 (1.005-1.025) Urine Protein Negative (Neg-Trace) mg/dL Urine Glucose (UA) Negative (Negative) mg/dL Urine Ketones Negative (Negative) mg/dL Urine Blood Negative (Negative) Urine Nitrite Negative (Negative) Ur Leukocyte Esterase Negative (Negative) Independent Interpretation I performed an independent interpretation of an: Plain X-Ray and CT Scan Interpretation: My interpretation is in agreement with the radiologist's impression of these imaging studies. EXAMINATION: CT HEAD WITHOUT CONTRAST CT CERVICAL SPINE WITHOUT CONTRAST CLINICAL INFORMATION: Head strike. COMPARISON: CT head and cervical spine 12/16/2022. TECHNIQUE: Production Control Coordinator images were obtained. CT imaging of the head and cervical spine was performed without contrast. Data was reformatted into multiplanar images at the acquisition workstation. This CT examination was performed using dose optimization techniques as appropriate, including one or more of the following: Automated exposure control, iterative reconstruction, and adjustment of technique factors (mA and/or kVp) according to patient size (this includes techniques or standardized protocols for targeted exams where dose is matched to indication/reason for exam). Fleischner Society criteria for the followup of incidental pulmonary nodules was implemented if appropriate. DLP: 1462 mGy-cm. FINDINGS: Head: There is no acute intracranial hemorrhage or abnormal extra-axial collection. No intracranial mass effect or midline shift. Lateral and third ventricles are normal. No hydrocephalus. Oneill-white matter differentiation is preserved and there is no evidence of acute territorial infarct. The calvarium and skull base are intact. Mastoid air cells and middle ear cavities are well aerated. No active paranasal sinus disease. Globes and orbits are grossly symmetric. Cervical spine: There is slight anterolisthesis of C4-C5 related to advanced facet degenerative changes at this level. Vertebral heights are preserved. No evidence of acute cervical spinal fracture. No abnormal prevertebral soft tissue swelling. Grossly no spinal canal compromise. Atheromatous calcification involves both carotid bifurcations. Visualized soft tissues of the neck are otherwise unremarkable. Lung apices are clear. CT/CT cervical spine wo IV con IMPRESSION: Head: No evidence of acute territorial infarct or hemorrhage. ? Cervical spine: No evidence of acute cervical spine fracture and no posttraumatic spinal subluxation. There is slight anterolisthesis of C4-C5 related to advanced facet degenerative changes at this level. Dictated By: Jerry Ross MD Signed By: Electronically signed by Jerry Ross MD 05/22/23 1123 EXAMINATION: XR CHEST 2 VIEW CLINICAL INFORMATION: Fall COMPARISON: 12/16/2022 TECHNIQUE: AP semiupright and lateral views of the chest obtained. FINDINGS: Examination is technically limited. Despite multiple attempts, the patient's abdomen could not be positioned outside of the frontal radiograph The visualized lungs are clear. There are no pleural effusions. The cardiac silhouette is enlarged but stable. XR/XR chest 2V IMPRESSION: Limited though grossly clear chest x-ray. Cardiomegaly. Dictated By: Watson Granados MD Signed By: Electronically signed by Watson Granados MD 05/22/23 1226 -- Vent. Rate: 065 BPM ? ? Atrial Rate: 065 BPM P-R Int: 200 ms? QRS Dur: 086 ms QT Int: 402 ms ? ? ? P-R-T Axes: 069 029 031 degrees QTc Int: 418 ms ? Normal sinus rhythm with sinus arrhythmia Normal ECG When compared with ECG of 16-DEC-2022 09:52, No significant change was found DD/ 1050 Radiology Impression Discussion of test interpretation with radiology: I have reviewed the radiologist's reading. Independent Historian Clinical information obtained from an independent historian. History obtained from or confirmed by: EMS (EMS provided additional history and confirmed the history provided by the patient and the patient's daughter.) and Other (Patient's daughter provided additional history and confirmed the history provided by the patient. ) Chronic Conditions Patient?s care impacted by: Diabetes and Hypertension Discharge Plan Discharge Clinical Impression: Fall Patient Disposition: Home, Self-Care Instructions: Fall Prevention for Older Adults (ED) Additional Instructions: Follow up with your primary care provider. Return to the emergency department immediately if your symptoms worsen or if you develop any dizziness, shortness of breath, difficulty breathing, chest pain, blurry vision, loss of vision, nausea, vomiting, abdominal pain, fever, chills, back pain, or any other complaints. Prescriptions: No Action gabapentin 300 mg capsule 300 mg PO BID albuterol sulfate 2.5 mg /3 mL (0.083 %) solution for nebulization 1 vial inhalation Q4H PRN (Reason: wheezing) furosemide 40 mg tablet 1 tab PO BID ZTlido 1.8 % adhesive patch,medicated 1 patch topical DAILY clonazepam [Klonopin] 1 mg tablet 1 mg PO BEDTIME Qty: 10 0RF Rx Instructions: administer 30 minutes before bedtime montelukast 10 mg tablet 10 mg PO BEDTIME (DME) lancets [OneTouch Delica Plus Lancet] 33 gauge misc See Rx Instructions .ROUTE BID Qty: 100 Rx Instructions: As directed insulin glargine [Lantus Solostar U-100 Insulin] 100 unit/mL (3 mL) insulin pen 30 unit subcut DAILY duloxetine 60 mg capsule,delayed release(DR/EC) 60 mg PO DAILY duloxetine 20 mg capsule,delayed release(DR/EC) 20 mg PO DAILY aripiprazole 20 mg tablet 20 mg PO DAILY naproxen 500 mg tablet 500 mg PO BID albuterol sulfate 90 mcg/actuation HFA aerosol inhaler 2 puff inhalation Q4H PRN (Reason: wheezing) zolpidem 10 mg tablet 10 mg PO BEDTIME metoprolol succinate 25 mg tablet extended release 24 hr 25 mg PO DAILY gabapentin 100 mg capsule 100 mg PO BEDTIME omeprazole 20 mg capsule,delayed release(DR/EC) 20 mg PO DAILY quetiapine 100 mg tablet 100 mg PO BEDTIME aspirin 81 mg tablet,delayed release (DR/EC) 81 mg PO DAILY clonazepam 1 mg tablet 1 mg PO BEDTIME amitriptyline 150 mg tablet 150 mg PO BEDTIME atorvastatin 80 mg tablet 80 mg PO BEDTIME Anoro Ellipta 62.5-25 mcg/actuation blister with device 1 ea inhalation DAILY metformin 500 mg tablet extended release 24 hr 500 mg PO DAILY (DME) OneTouch Ultra Test Strip See Rx Instructions .ROUTE BID Qty: 10 Rx Instructions: As directed Referrals: Ashwin Arzola III, MD [Primary Care Provider] - Print Language: Kinyarwanda
--- NOTE | 2023-05-22 10:34 | ECG_ITS ---
Test Reason : WEAKNESS Blood Pressure : / mmHG Vent. Rate : 065 BPM Atrial Rate : 065 BPM P-R Int : 200 ms QRS Dur : 086 ms QT Int : 402 ms P-R-T Axes : 069 029 031 degrees QTc Int : 418 ms Normal sinus rhythm with sinus arrhythmia Normal ECG When compared with ECG of 16-DEC-2022 09:52, No significant change was found Referred By: Isabella Zhang Electronically Signed By:Michael Cano
[2023-05-22 11:12] LABS: MANUAL DIFF FLAG NO
[2023-05-22 11:16] LABS: Basophils Percent Auto 0.5 % (0-2); Eosinophils Absolute Auto 0.3 X10*3/uL (0.0-0.4); Eosinophils Percent Auto 4.2 % (0-4); Hematocrit 39.5 % (37.0-47.0); Hemoglobin 11.7 g/dl (12.0-16.0); Imm Gran Abs Auto 0.03 X10*3/uL (0.00-0.03); Imm Gran Pct Auto 0.5 % (0.0-0.4); Lymphocytes Absolute Auto 1.5 X10*3/uL (1.2-4.9); Lymphocytes Percent Auto 24.1 % (20-40); Mean Corpuscular HGB Conc 29.6 g/dl (31.0-35.0); Mean Corpuscular Volume 81.1 fL (80.0-98.0); Mean Platelet Volume 10.8 fL (9.4-12.3); Monocytes Absolute Auto 0.5 X10*3/uL (0.1-1.2); Monocytes Percent Auto 7.5 % (2-11); Neutrophils Absolute Auto 3.9 x10*3/uL (2.0-8.3); Neutrophils Percent Auto 63.2 % (45-73); Platelet Count 225 X10*3/uL (160-400); Red Blood Count 4.87 X10*6/uL (4.20-5.50); Red Cell Distribution Width 18.4 % (11.0-16.0); White Blood Count 6.1 X10*3/uL (4.8-10.8)
[2023-05-22 11:21] LABS: Appearance Urine Clear; Color Urine Yellow; Glucose Urine UA Negative (Negative); Leukocyte Esterase Urine Negative (Negative); Nitrite Urine Negative (Negative); PH 5.5 (5.0-9.0); Urine Blood Negative (Negative); Urine Ketones Negative (Negative); Urine Protein Negative (Neg-Trace)
[2023-05-22 11:37] LABS: Alanine Aminotransferase 16 U/L (0-31); Albumin Level 3.9 g/dL (3.5-5.0); Alkaline Phosphatase 91 U/L (39-117); Anion Gap 13 (12-20); Aspartate Amino Transferase 19 U/L (5-31); Bilirubin Total 0.4 mg/dL (0.0-1.0); Blood Urea Nitrogen 11 mg/dL (9-16); Calcium 9.7 mg/dL (8.4-10.2); Carbon Dioxide 27 mmol/L (22-29); Chloride 105 mmol/L (96-108); Creatinine Clr Calc Pharmacy 76.8; Estimated Glomerular Filt Rate > 60; Glucose Random 134 mg/dL (60-115); Magnesium 1.8 mg/dL (1.6-2.6); Potassium 3.9 mmol/L (3.3-5.1); Sodium 141 mmol/L (135-145); Total Protein 7.8 g/dL (6.5-8.0)
[2023-05-22 11:38] LABS: Troponin-I High Sensitivity 30.7 ng/L (<3.5-17.0)
[2023-05-22 13:54] LABS: Troponin-I High Sensitivity 30.6 ng/L (<3.5-17.0)
[2023-05-22 14:27] VITALS: BP 132/50; PULSE 66; RESP 16; O2SAT 98
--- NOTE | 2023-05-22 15:26 | PC.NURSE ---
patient d/c with daughter
== END 2023-05-22 15:27 | disposition home or self-care (01) ==
PROVIDERS: Physician Assistant Medical; Emergency Provider Student in an Organized Health Care Education/Training Program; PCP Internal Medicine
DX: S29.9XXA Unspecified injury of thorax, initial encounter (principal); F03.90 Unspecified dementia, unspecified severity, without behavioral disturbance, psychotic disturbance, mood disturbance, and anxiety; I49.8 Other specified cardiac arrhythmias; S09.90XA Unspecified injury of head, initial encounter; R51.9 Headache, unspecified; M54.2 Cervicalgia; W01.0XXA Fall on same level from slipping, tripping and stumbling without subsequent striking against object, initial encounter; Y93.9 Activity, unspecified; Y92.9 Unspecified place or not applicable; Y99.9 Unspecified external cause status; Z79.899 Other long term (current) drug therapy; Z87.891 Personal history of nicotine dependence
CPT/HCPCS: 36415; 70450; 71046; 72125; 80053; 81003; 82550; 83735; 84484; 85025; 93005; 99284

== ENCOUNTER → 2023-05-22 10:34 | Outpatient (BNV) | payer OTHER, SELFPAY | PROVIDERS: Emergency Provider Student in an Organized Health Care Education/Training Program; PCP Internal Medicine; Visit Provider Internal Medicine Cardiovascular Disease | DX: R53.1 Weakness (principal) | CPT/HCPCS: 93010 ==

== ENCOUNTER 2023-05-27 11:01 | Outpatient (AMB) | payer MEDICARE, SELFPAY ==
[2023-05-27 11:04] VITALS: BP 118/60; PULSE 79; O2SAT 92; BMI 33.7
--- NOTE | 2023-05-27 11:04 | MHC.OFFVIS ---
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 Speedometer Inspector Required: Yes Speedometer Inspector Name: Nelson Barber [id number] Accompanied by: Daughter Allergies Penicillins Allergy (Mild, Verified 05/27/23 11:16) Swelling Medication List - Last Reconciled 05/27/23 by CHAVEZ Nelson albuterol sulfate 1 vial inhalation Q4H PRN albuterol sulfate 90 mcg/actuation 2 puffs inhalation Q4H PRN amitriptyline 150 mg PO BEDTIME aspirin 81 mg PO DAILY atorvastatin 80 mg PO BEDTIME blood sugar diagnostic (Credibleuch Ultra Test strips) As directed clonazepam (Klonopin) 1 mg PO BEDTIME duloxetine 60 mg PO DAILY duloxetine 20 mg PO DAILY gabapentin 300 mg PO BID gabapentin 100 mg PO BEDTIME insulin glargine (Lantus Solostar U-100 Insulin) 30 units subcut DAILY lancets (TrafficLandTouch Delica Plus Lancet) As directed lidocaine 1.8% (ZTlido) 1 patch topical DAILY metoprolol succinate ER 25 mg PO DAILY montelukast 10 mg PO BEDTIME naproxen 500 mg PO BID PRN omeprazole 20 mg PO DAILY quetiapine 100 mg PO BEDTIME umeclidinium-vilanterol 62.5-25 mcg/actuation (Anoro Ellipta) 1 ea inhalation DAILY zolpidem 10 mg PO BEDTIME HPI HPI Comments History of Present Illness Details 68-yr-old female presents for neurological evaluation of: worsening cognitive difficulties. Pt is accompanied by her oldest dtr, Celina, who provides significant portion of history as pt repeatedly dozes off throughout the visit. Pt's memory issues have been worsening slowly over the last 1.5 yrs. Pt lives alone in an apartment. Previously lived w/ her dtr- but pt wanted to live on her own. Dtr does not feel that pt will be able to continue to do this much longer.. 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 Her COMMUNICATIONS SUPERINTENDENT helps her to pay her monthly bills. She no longer cooks because she was burning foods. She may leave the stove on. She needs reminders about her medication. She knows her families names, but more difficulty with other people. She has difficulty w/ STM memory and repeats herself. She has some difficulty w/ LTM as well. Denies any wandering. She completed 9th grade- she cannot say why she stopped. She had a sleep study a few months ago at [facility]- unaware of results. Pt states she has a CPAP but does not use She does she Dr Still or Dr Bellamy for headaches and a cyst. [facility] Medical History (Updated 05/27/23 @ 12:59 by CHAVEZ Nelson) Aneurysm of middle cerebral artery Asthma Bipolar disorder CHF (congestive heart failure) COPD (chronic obstructive pulmonary disease) CTS (carpal tunnel syndrome) Diabetic neuropathy DJD (degenerative joint disease) Essential hypertension History of COVID-19 Hx of rheumatoid arthritis Insulin dependent type 2 diabetes mellitus Migraine Mild aortic stenosis Mixed hyperlipidemia Mood disorder Palpitations Pulmonary nodules Urinary incontinence Surgical History H/O: hysterectomy History of carpal tunnel release Hx of cataract surgery Hx of cholecystectomy Family History Mother Myocardial infarction Father Myocardial infarction Sister Breast cancer Brother Spleen cancer Social History Household Members: None Housing: Apartment Do you presently have visiting nurse or other home services: Yes (thru zoom) Alcohol intake: never Patient Tobacco Use Status: Former Tobacco user Quit Date: 10/13/1987 Cigarette Packs Per Day: 3 Years Smoked: [id number] service: No Current occupational status: retired Review of Systems Const Details: See scanned ROS form Physical Exam Vital Signs: Last Vital Signs Pulse 79 05/27/23 11:04 BP 118/60 05/27/23 11:04 Pulse Ox 92 05/27/23 11:04 Oxygen Delivery Method Room Air 05/27/23 11:04 BMI result Body Mass Index 33.7 Const General: cooperative and no acute distress HEENT Head: Yes normocephalic Resp Effort & Inspection: normal respiratory effort and able to speak in complete sentences Neuro Other: Exam limited as pt repeatedly fell asleep- although easily aroused. Alert, some difficulty following direction, at times answrs questions inconsistent w/ question asked. General: CN's II-XI intact bilaterally Gait exam (Neuro): Normal gait present Motor exam (neuro): 5/5 motor strength present throughout Deep tendon reflexes (DTR's): Right triceps reflex intensity grade: 2+, Left triceps reflex intensity grade: 2+, Rt Biceps (C5, C6): 2+, Left biceps reflex intensity grade: 2+, Right brachioradialis reflex intensity grade: 2+, Left brachioradialis reflex intensity grade: 2+, Right patellar reflex intensity grade: 0 and Left patellar reflex intensity grade: 0 Psych Appearance: grossly normal Speech and movement: Normal speech and movement present Affect: normal affect Attitude: cooperative Assessment & Plan Assessment & Plan (1) Cognitive dysfunction: Code(s): F09 - Unspecified mental disorder due to known physiological condition (2) Fatigue: Code(s): R53.83 - Other fatigue (3) JOSÉ (obstructive sleep apnea): Code(s): G47.33 - Obstructive sleep apnea (adult) (pediatric) Plan MMSE at f/u when pt is able to fully engage. Pt advised to undergo brain MRI w/o. Pt advised to undergo EEG. Pt advised to undergo comprehensive neuropsych eval- advised their is a long waitlist. Will check labs for common etiologies of cognitive impairment and hypersomnia. Will request notes and sleep study reports from [facility] and Dr Still. Pt may benefit from trying to reduce her medication burden- she is on many medications which may negatively impact cognition and sleep/wake cycle. f/u in 3 months or sooner prn. 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 insulin CRP High Sensitivity Today E11.9 - Type 2 diabetes mellitus without complications, E78.2 - Mixed hyperlipidemia, F09 - Unspecified mental disorder due to known physiological condition, I10 - Essential (primary) hypertension, R53.83 - Other fatigue, Z79.4 - long-term (current) use of insulin Rheumatoid Factor Today E11.9 - Type 2 diabetes mellitus without complications, E78.2 - Mixed hyperlipidemia, F09 - Unspecified mental disorder due to known physiological condition, I10 - Essential (primary) hypertension, R53.83 - Other fatigue, Z79.4 - 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 of insulin TSH reflex Free T4 Today E11.9 - Type 2 diabetes mellitus without complications, E78.2 - Mixed hyperlipidemia, F09 - Unspecified mental disorder due to known physiological condition, I10 - Essential (primary) hypertension, R53.83 - Other fatigue, Z79.4 - 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 of insulin Erythrocyte Sedimentation Rate Today E11.9 - Type 2 diabetes mellitus without complications, E78.2 - Mixed hyperlipidemia, F09 - Unspecified mental disorder due to known physiological condition, I10 - Essential (primary) hypertension, R53.83 - Other fatigue, Z79.4 - long-term (current) use of insulin CHAPARRITA Reflex Titer and Pattern Today E11.9 - Type 2 diabetes mellitus without complications, E78.2 - Mixed hyperlipidemia, F09 - Unspecified mental disorder due to known physiological condition, I10 - Essential (primary) hypertension, R53.83 - Other fatigue, Z79.4 - long-term (current) use of insulin MR head/brain wo con Today E11.9 - Type 2 diabetes mellitus without complications, E78.2 - Mixed hyperlipidemia, F09 - Unspecified mental disorder due to known physiological condition, I10 - Essential (primary) hypertension, R53.83 - Other fatigue, Z79.4 - long-term (current) use of insulin Comprehensive Met. Panel Today E11.9 - Type 2 diabetes mellitus without complications, E78.2 - Mixed hyperlipidemia, F09 - Unspecified mental disorder due to known physiological condition, I10 - Essential (primary) hypertension, R53.83 - Other fatigue, Z79.4 - long-term (current) use of insulin Ferritin Today D64.9 - Anemia, unspecified, E11.9 - Type 2 diabetes mellitus without complications, E78.2 - Mixed hyperlipidemia, F09 - Unspecified mental disorder due to known physiological condition, I10 - Essential (primary) hypertension, R53.83 - Other fatigue, Z79.4 - long-term (current) use of insulin Homocysteine Today E11.9 - Type 2 diabetes mellitus without complications, E78.2 - Mixed hyperlipidemia, F09 - Unspecified mental disorder due to known physiological condition, I10 - Essential (primary) hypertension, R53.83 - Other fatigue, Z79.4 - long-term (current) use of insulin Methylmalonic Acid Today E11.9 - Type 2 diabetes mellitus without complications, E78.2 - Mixed hyperlipidemia, F09 - Unspecified mental disorder due to known physiological condition, I10 - Essential (primary) hypertension, R53.83 - Other fatigue, Z79.4 - 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 of insulin Vitamin D 25-OH (D2 and D3) Today E11.9 - Type 2 diabetes mellitus without complications, E78.2 - Mixed hyperlipidemia, F09 - Unspecified mental disorder due to known physiological condition, I10 - Essential (primary) hypertension, R53.83 - Other fatigue, Z79.4 - long-term (current) use of insulin Complete Blood Count Auto Diff Today E11.9 - Type 2 diabetes mellitus without complications, E78.2 - Mixed hyperlipidemia, F09 - Unspecified mental disorder due to known physiological condition, I10 - Essential (primary) hypertension, R53.83 - Other fatigue, Z79.4 - long-term (current) use of insulin HIV Ab/Ag Today E11.9 - Type 2 diabetes mellitus without complications, E78.2 - Mixed hyperlipidemia, F09 - Unspecified mental disorder due to known physiological condition, I10 - Essential (primary) hypertension, R53.83 - Other fatigue, Z79.4 - 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 of insulin Syphilis Screen Today E11.9 - Type 2 diabetes mellitus without complications, E78.2 - Mixed hyperlipidemia, F09 - Unspecified mental disorder due to known physiological condition, I10 - Essential (primary) hypertension, R53.83 - Other fatigue, Z79.4 - long-term (current) use of insulin EEG electroencephalogram Today F09 - Unspecified mental disorder due to known physiological condition Referrals Neuropsychiatry Referral F09 - Unspecified mental disorder due to known physiological condition, F39 - Unspecified mood [affective] disorder, G47.9 - Sleep disorder, unspecified Coding Level of Care Code New Pt Level 4 (40037) Diagnoses Cognitive dysfunction F09 Fatigue R53.83 JOSÉ (obstructive sleep apnea) G47.33
== END 2023-05-27 12:15 | disposition home or self-care (01) ==
PROVIDERS: Visit Provider Nurse Practitioner Family
DX: R41.89 Other symptoms and signs involving cognitive functions and awareness (principal); R53.83 Other fatigue; G47.33 Obstructive sleep apnea (adult) (pediatric)
CPT/HCPCS: 99204

== ENCOUNTER → 2023-05-27 11:01 | Outpatient (BNVA) | payer MEDICARE, SELFPAY | PROVIDERS: Visit Provider Nurse Practitioner Family | DX: F09 Unspecified mental disorder due to known physiological condition (principal); R53.83 Other fatigue; G47.33 Obstructive sleep apnea (adult) (pediatric) | CPT/HCPCS: 99202 ==

== ENCOUNTER 2023-06-10 14:53 | Outpatient (REF) | payer MEDICARE, SELFPAY ==
[2023-06-10 16:29] LABS: Blood Urea Nitrogen 11 mg/dL (9-16); Estimated Glomerular Filt Rate > 60
== END 2023-06-10 14:54 | disposition home or self-care (01) ==
LOC: HO.LAB 14:53
PROVIDERS: PCP Internal Medicine; Visit Provider Psychiatry & Neurology Neurology
DX: I67.1 Cerebral aneurysm, nonruptured (principal)
CPT/HCPCS: 36415; 82565; 84520

== ENCOUNTER 2023-06-19 13:34 | Outpatient (REF) | payer MEDICARE, MEDICAID, SELFPAY ==
--- NOTE | 2023-06-19 13:39 | EEG_ITS ---
This is a 16 channel EEG with an EKG lead. The patient is reported awake and drowsy during the tracing. Background EEG rhythm mostly is low to medium amplitude fast alpha posteriorly and lower amplitude fast anteriorly. The patient goes in and out of drowsiness. Photic stimulation does not produce any significant abnormality. Hyperventilation is not performed. Cardiac lead does not reveal any significant abnormality. No definite sharp wave spikes or paroxysmal tendency noted. IMPRESSION: No significant abnormality noted on this EEG. MD SUZANNE Gruber/FLORES / [phone]
== END 2023-06-19 13:35 | disposition home or self-care (01) ==
LOC: HO.NEURO 13:34
PROVIDERS: PCP Internal Medicine; Visit Provider Nurse Practitioner Family
DX: F09 Unspecified mental disorder due to known physiological condition (principal)
CPT/HCPCS: 95816

== ENCOUNTER 2023-06-23 15:00 | Emergency (ER) | payer MEDICARE, MEDICAID, SELFPAY ==
--- NOTE | ~2023-06-23 | US_ITS ---
EXAMINATION: US ABDOMEN LIMITED CLINICAL INFORMATION: Upper abdominal epigastric pain. COMPARISON: None available. TECHNIQUE: Real-time imaging of the right upper quadrant abdominal viscera. FINDINGS: PANCREAS: Majority of the pancreas is obscured overlying bowel gas. Where it is seen it is grossly unremarkable LIVER: The liver is normal in size. The liver contour is normal. Increased hepatic echotexture suggesting diffuse fatty infiltration. No focal hepatic lesion. There is no intrahepatic biliary duct dilatation seen. GALLBLADDER: Status post cholecystectomy. COMMON BILE DUCT: Normal in caliber measuring 0.8 cm in diameter. RIGHT KIDNEY: Normal. No hydronephrosis. No renal calculi or focal parenchymal lesions. The kidney measures 10.4 cm in maximum dimension. FREE FLUID: None. US/US abdomen limited IMPRESSION: Diffuse fatty infiltration of the liver but no focal hepatic lesion or biliary ductal dilatation. Status post cholecystectomy.
[2023-06-23 15:22] VITALS: BP 152/56; PULSE 77; RESP 18; TEMP 36.9; O2SAT 96; BMI 33.1
--- NOTE | 2023-06-23 15:22 | ED_ITS ---
HPI - Weakness General Chief complaint: General Medical Stated complaint: weakness in left hand,abd pain,drooling Time Seen by Provider: 06/23/23 20:15 History of Present Illness HPI Narrative: 68-year-old female presents with epigastric abdominal pain. The symptoms have been intermittent. They started 3 months ago. Scribe's the pain is sharp and burning in nature. The pain does not radiate. Associated with decreased appetite nausea. She has had 2-3 episodes of nonbloody nonbilious emesis. She denies any dark black stool, diarrhea or constipation. She denies any radiation of pain. She has a history of a cholecystectomy. She denies significant quantities of alcohol or anti-inflammatory pain medications consumption. She has had no fevers or chills. She does currently take omeprazole 20 mg daily. Patient's pain is described as severe at its worse and currently is mild. The pain is not associated with exertion. She denies any chest pain, shortness breath, palpitations. Patient denies any back pain as well. Related Data Home Medications Medication Instructions Recorded Confirmed albuterol sulfate 90 mcg/actuation 2 puff inhalation Q4H PRN wheezing 09/27/22 05/27/23 aerosol inhaler amitriptyline 150 mg tablet 150 mg PO BEDTIME 09/27/22 05/27/23 aspirin 81 mg tablet,delayed 81 mg PO DAILY 09/27/22 05/27/23 release atorvastatin 80 mg tablet 80 mg PO BEDTIME 09/27/22 05/27/23 blood sugar diagnostic (Finderyuch #10 ea 09/27/22 05/27/23 Ultra Test strips) duloxetine 20 mg capsule,delayed 20 mg PO DAILY 09/27/22 05/27/23 release duloxetine 60 mg capsule,delayed 60 mg PO DAILY 09/27/22 05/27/23 release gabapentin 100 mg capsule 100 mg PO BEDTIME diabetes mellitus 09/27/22 05/27/23 insulin glargine 100 unit/mL (3 30 unit subcut DAILY 09/27/22 05/27/23 mL) subcutaneous pen (Lantus Solostar U-100 Insulin) lancets 33 gauge (FinderyTouch Gallo #100 ea 09/27/22 05/27/23 Plus Lancet) metoprolol succinate 25 mg 25 mg PO DAILY 09/27/22 05/27/23 tablet,extended release 24 hr montelukast 10 mg tablet 10 mg PO BEDTIME 09/27/22 05/27/23 omeprazole 20 mg capsule,delayed 20 mg PO DAILY 09/27/22 05/27/23 release quetiapine 100 mg tablet 100 mg PO BEDTIME 09/27/22 05/27/23 umeclidinium 62.5 mcg-vilanterol 1 ea inhalation DAILY 09/27/22 05/27/23 25 mcg/actuation powdr for inhalation (Anoro Ellipta) zolpidem 10 mg tablet 10 mg PO BEDTIME 09/27/22 05/27/23 gabapentin 300 mg capsule 300 mg PO BID 11/25/22 05/27/23 albuterol sulfate 2.5 mg/3 mL 1 vial inhalation Q4H PRN wheezing 12/16/22 05/27/23 (0.083 %) solution for nebulization lidocaine 1.8 % topical patch 1 patch topical DAILY 12/16/22 05/27/23 (ZTlido) naproxen 500 mg tablet 500 mg PO BID PRN 05/27/23 05/27/23 Previous Rx's Medication Instructions Recorded clonazepam 1 mg tablet (Klonopin) 1 mg PO BEDTIME #10 tabs 12/18/22 famotidine 20 mg tablet 20 mg PO BEDTIME #20 tabs 06/23/23 omeprazole 40 mg capsule,delayed 40 mg PO DAILY #20 caps 06/23/23 release ondansetron 4 mg disintegrating 4 mg PO Q8H PRN nausea and 06/23/23 tablet vomiting #10 tabs Allergies Allergy/AdvReac Type Severity Reaction Status Date / Time Penicillins Allergy Mild Swelling Verified 05/27/23 11:16 Review of Systems 2 Review of Systems: CONSTITUTIONAL: Denies weight loss, fever and chills. HEENT: Denies changes in vision and hearing. RESPIRATORY: Denies SOB and cough. CV: Denies palpitations no CP. GI: + abdominal pain, nausea, vomiting - diarrhea. : Denies dysuria and urinary frequency. MSK: Denies myalgia and joint pain. SKIN: Denies rash and pruritus. NEUROLOGICAL: Denies headache and syncope. PSYCHIATRIC: Denies recent changes in mood. Denies anxiety and depression. All other ROS are negative unless in HPI PMFSH Past Medical History Medical History DJD (degenerative joint disease) COPD (chronic obstructive pulmonary disease) Bipolar disorder CTS (carpal tunnel syndrome) Hx of rheumatoid arthritis Diabetic neuropathy Urinary incontinence Aneurysm of middle cerebral artery Pulmonary nodules CHF (congestive heart failure) Palpitations Migraine History of COVID-19 Mild aortic stenosis Asthma Insulin dependent type 2 diabetes mellitus Mixed hyperlipidemia Mood disorder Essential hypertension Surgical History Hx of cataract surgery H/O: hysterectomy Hx of cholecystectomy History of carpal tunnel release Family History Family History Mother Myocardial infarction Father Myocardial infarction Sister Breast cancer Brother Spleen cancer Social History Social History Household Members: None Housing: Apartment Do you presently have visiting nurse or other home services: Yes (thru zoom) Alcohol intake: never Patient Tobacco Use Status: Former Tobacco user Quit Date: 10/13/1987 Cigarette Packs Per Day: 3 Years Smoked: [id number] Advance Directives: No Advance Directives Information Provided: Yes service: No Current occupational status: retired Physical Exam 2 Vital Signs: Vital Signs: Last Vital Signs Temp 98.4 F 06/23/23 19:42 Pulse 85 06/23/23 19:42 Resp 17 06/23/23 19:42 BP 165/57 H 06/23/23 19:42 Pulse Ox 97 06/23/23 19:42 O2 Del Method Room Air 06/23/23 19:42 BMI result Body Mass Index 33.1 GEN: Well developed, no acute distress, alert, oriented HEENT: Normocephalic, atraumatic, normal external ears, nose appears normal, no oropharyngeal edema or exudates Eyes: Normal to appearance Neck: Supple, no lymphadenopathy Respiratory: Talks in complete sentences, no respiratory distress, clear to auscultation bilaterally Cardiovascular: Regular rate and rhythm, no murmurs rubs or gallops Abdomen: Soft, epigastric tenderness, nondistended, no guarding, no rebound, no pulsatile masses Back: No CVA tenderness Extremities: No clubbing cyanosis or edema Neurologic: No focal neurologic deficits, cranial nerves 2-12 intact, strength is 5/5 bilaterally Skin: No rash Course Course Course Narrative: RME - 68 yo Syriac speaking female with history of cognitive dysfunction, asthma, HTN, HLD, DM on insulin, anemia, JOSÉ who presents to the ER for evaluation of nausea, abdominal pain, dark yellow urine, and left hand weakness and pain for the last 2 months. She reports abd pain every time she eats. PCPs office told her to come to the ER. Plans: labs and urine test Reevaluation(s) Reevaluation #1: The workup is complete. Her ultrasound showed fatty liver changes. She is status post cholecystectomy. I suspect she is having gastritis with nausea. She is currently on omeprazole 20 mg daily. Will increase that to 40 mg and add famotidine 20 mg. Her symptoms have been going on for 3 months at this point. She would likely benefit from a gastroenterologic evaluation as well. She may require upper endoscopy Time: 21:52 Medications Administered Discontinued Medications Generic Name Dose Route Start Last Admin Trade Name Freq PRN Reason Stop Dose Admin Acetaminophen 975 mg 06/23/23 18:03 06/23/23 20:47 Acetaminophen 325 Mg Tablet PO 06/23/23 18:04 975 mg ONCE ONE Administration Ondansetron HCl 4 mg 06/23/23 20:31 06/23/23 20:47 Ondansetron Odt 4 Mg Tab.Rapdis TRANSLINGU 06/23/23 20:32 4 mg ONCE ONE Administration Medical Decision Making Medical Decision Making [facility] Narrative: Patient presents with epigastric abdominal pain. She does have tenderness. Negative Gillespie sign. There is no rebound or guarding. I did not appreciate any pulsatile masses. There are no red flag symptoms at this point. Her symptoms wound intermittent for the past 3 months. Differential diagnosis includes GERD, gastritis, dyspepsia, IBD, IBS, colitis, diverticulitis, biliary. Most likely this is GERD or gastritis. Will obtain an ultrasound to rule out any significant issues at this time. Will review laboratory analysis to rule out pancreatitis, urinary tract infection, etc.. Will provide patient with antiemetics. Differential Diagnosis Differential Diagnoses: The differential diagnosis associated with the presentation includes (See above) Lab Data [facility] Lab Attestation statement: I reviewed the patient's lab results. 06/23/23 15:56 06/23/23 15:56 Labs: Lab Results 06/23/23 06/23/23 Range/Units 15:48 15:56 WBC 7.8 (4.8-10.8) X10*3/uL RBC 4.29 (4.20-5.50) X10*6/uL Hgb 10.4 L (12.0-16.0) g/dl Hct 35.2 L (37.0-47.0) % MCV 82.1 (80.0-98.0) fL MCH 24.2 L (27.0-33.0) pg MCHC 29.5 L (31.0-35.0) g/dl RDW 18.4 H (11.0-16.0) % Plt Count 266 (160-400) X10*3/uL MPV 11.0 (9.4-12.3) fL Immature Gran % (Auto) 0.3 (0.0-0.4) % Neut % (Auto) 72.8 (45-73) % Lymph % (Auto) 16.7 L (20-40) % [place] % (Auto) 7.5 (2-11) % Eos % (Auto) 2.3 (0-4) % Baso % (Auto) 0.4 (0-2) % Lymph # (Auto) 1.3 (1.2-4.9) X10*3/uL [place] # (Auto) 0.6 (0.1-1.2) X10*3/uL Eos # (Auto) 0.2 (0.0-0.4) X10*3/uL Baso # (Auto) 0.0 (0.0-0.2) X10*3/uL Abs Immat Gran (auto) 0.02 (0.00-0.03) X10*3/uL Absolute Neuts (auto) 5.7 (2.0-8.3) x10*3/uL Absolute Nucleated RBC 0.000 (0.0-0.012) X10*3/uL Nucleated RBC % (auto) 0.0 (0.0-0.2) /100WBC Sodium 140 (135-145) mmol/L Potassium 4.0 (3.3-5.1) mmol/L Chloride 105 (96-108) mmol/L Carbon Dioxide 23 (22-29) mmol/L Anion Gap 16 (12-20) BUN 12 (9-16) mg/dL Creatinine 0.70 (0.5-1.4) mg/dL Estim Creat Clear Calc 84.2 Estimated GFR > 60 Random Glucose 170 H (60-115) mg/dL Calcium 9.6 (8.4-10.2) mg/dL Magnesium 1.8 (1.6-2.6) mg/dL Total Bilirubin 0.4 (0.0-1.0) mg/dL Direct Bilirubin 0.2 (0.0-0.5) mg/dL AST 19 (5-31) U/L ALT 14 (0-31) U/L Alkaline Phosphatase 85 (39-117) U/L Total Protein 7.4 (6.5-8.0) g/dL Albumin 3.9 (3.5-5.0) g/dL Urine Color Yellow Urine Appearance Clear Urine pH 6.0 (5.0-9.0) Ur Specific [place] 1.020 (1.005-1.025) Urine Protein Negative (Neg-Trace) mg/dL Urine Glucose (UA) Negative (Negative) mg/dL Urine Ketones Negative (Negative) mg/dL Urine Blood Negative (Negative) Urine Nitrite Negative (Negative) Ur Leukocyte Esterase Negative (Negative) Independent Interpretation I performed an independent interpretation of an: Ultrasound (ABD: NAD) Radiology Impression Discussion of test interpretation with radiology: I have reviewed the radiologist's reading. Radiologist Impression: US/US abdomen limited IMPRESSION: Diffuse fatty infiltration of the liver but no focal hepatic lesion or biliary ductal dilatation. Status post cholecystectomy. Dictated By: Edmar Dixon MD Signed By: <Electronically signed by Edmar Dixon MD in OV> 06/23/232126 Independent Historian Clinical information obtained from an independent historian. History obtained from or confirmed by: Other (Family) Prescription Management I considered prescription management with: Pain Medication Discharge Plan Discharge Clinical Impression: Abdominal pain, acute, epigastric Patient Disposition: Home, Self-Care Instructions: Gastritis (ED), Abdominal Pain (ED) Prescriptions: New omeprazole 40 mg capsule,delayed release(DR/EC) 40 mg PO DAILY Qty: 20 0RF famotidine 20 mg tablet 20 mg PO BEDTIME Qty: 20 0RF ondansetron 4 mg tablet,disintegrating 4 mg PO Q8H PRN (Reason: nausea and vomiting) Qty: 10 0RF No Action gabapentin 300 mg capsule 300 mg PO BID albuterol sulfate 2.5 mg /3 mL (0.083 %) solution for nebulization 1 vial inhalation Q4H PRN (Reason: wheezing) ZTlido 1.8 % adhesive patch,medicated 1 patch topical DAILY clonazepam [Klonopin] 1 mg tablet 1 mg PO BEDTIME Qty: 10 0RF Rx Instructions: administer 30 minutes before bedtime montelukast 10 mg tablet 10 mg PO BEDTIME (DME) lancets [OneTouch Delica Plus Lancet] 33 gauge misc See Rx Instructions .ROUTE BID Qty: 100 Rx Instructions: As directed insulin glargine [Lantus Solostar U-100 Insulin] 100 unit/mL (3 mL) insulin pen 30 unit subcut DAILY duloxetine 60 mg capsule,delayed release(DR/EC) 60 mg PO DAILY duloxetine 20 mg capsule,delayed release(DR/EC) 20 mg PO DAILY albuterol sulfate 90 mcg/actuation HFA aerosol inhaler 2 puff inhalation Q4H PRN (Reason: wheezing) zolpidem 10 mg tablet 10 mg PO BEDTIME metoprolol succinate 25 mg tablet extended release 24 hr 25 mg PO DAILY gabapentin 100 mg capsule 100 mg PO BEDTIME omeprazole 20 mg capsule,delayed release(DR/EC) 20 mg PO DAILY quetiapine 100 mg tablet 100 mg PO BEDTIME aspirin 81 mg tablet,delayed release (DR/EC) 81 mg PO DAILY amitriptyline 150 mg tablet 150 mg PO BEDTIME atorvastatin 80 mg tablet 80 mg PO BEDTIME Anoro Ellipta 62.5-25 mcg/actuation blister with device 1 ea inhalation DAILY (DME) OneTouch Ultra Test Strip See Rx Instructions .ROUTE BID Qty: 10 Rx Instructions: As directed naproxen 500 mg tablet 500 mg PO BID PRN Referrals: Ashwin Arzola III, MD [Primary Care Provider] - 1 week Print Language: Syriac
[2023-06-23 16:01] LABS: MANUAL DIFF FLAG NO
[2023-06-23 16:02] LABS: Basophils Percent Auto 0.4 % (0-2); Eosinophils Absolute Auto 0.2 X10*3/uL (0.0-0.4); Eosinophils Percent Auto 2.3 % (0-4); Hematocrit 35.2 % (37.0-47.0); Hemoglobin 10.4 g/dl (12.0-16.0); Imm Gran Abs Auto 0.02 X10*3/uL (0.00-0.03); Imm Gran Pct Auto 0.3 % (0.0-0.4); Lymphocytes Absolute Auto 1.3 X10*3/uL (1.2-4.9); Lymphocytes Percent Auto 16.7 % (20-40); Mean Corpuscular HGB Conc 29.5 g/dl (31.0-35.0); Mean Corpuscular Hemoglobin 24.2 pg (27.0-33.0); Mean Corpuscular Volume 82.1 fL (80.0-98.0); Monocytes Absolute Auto 0.6 X10*3/uL (0.1-1.2); Monocytes Percent Auto 7.5 % (2-11); Neutrophils Absolute Auto 5.7 x10*3/uL (2.0-8.3); Neutrophils Percent Auto 72.8 % (45-73); Platelet Count 266 X10*3/uL (160-400); Red Blood Count 4.29 X10*6/uL (4.20-5.50); Red Cell Distribution Width 18.4 % (11.0-16.0); White Blood Count 7.8 X10*3/uL (4.8-10.8)
[2023-06-23 16:04] LABS: Appearance Urine Clear; Color Urine Yellow; Glucose Urine UA Negative (Negative); Leukocyte Esterase Urine Negative (Negative); Nitrite Urine Negative (Negative); Urine Blood Negative (Negative); Urine Ketones Negative (Negative); Urine Protein Negative (Neg-Trace)
[2023-06-23 16:17] LABS: Alanine Aminotransferase 14 U/L (0-31); Albumin Level 3.9 g/dL (3.5-5.0); Alkaline Phosphatase 85 U/L (39-117); Anion Gap 16 (12-20); Aspartate Amino Transferase 19 U/L (5-31); Bilirubin Direct 0.2 mg/dL (0.0-0.5); Bilirubin Total 0.4 mg/dL (0.0-1.0); Blood Urea Nitrogen 12 mg/dL (9-16); Calcium 9.6 mg/dL (8.4-10.2); Carbon Dioxide 23 mmol/L (22-29); Chloride 105 mmol/L (96-108); Creatinine Clr Calc Pharmacy 84.2; Estimated Glomerular Filt Rate > 60; Glucose Random 170 mg/dL (60-115); Magnesium 1.8 mg/dL (1.6-2.6); Sodium 140 mmol/L (135-145); Total Protein 7.4 g/dL (6.5-8.0)
[2023-06-23 19:42] VITALS: BP 165/57; PULSE 85; RESP 17; TEMP 36.9; O2SAT 97
[2023-06-23] MEDS: Acetaminophen 325 MG TABLET 975 MG PO (20:47)
[2023-06-23] MEDS: Ondansetron ODT 4 MG TAB.RAPDIS TRANSLINGU (20:47)
== END 2023-06-23 22:21 | disposition home or self-care (01) ==
PROVIDERS: Physician Assistant; Emergency Provider Emergency Medicine; PCP Internal Medicine
DX: R10.13 Epigastric pain (principal); R53.1 Weakness; Z87.891 Personal history of nicotine dependence; Z79.899 Other long term (current) drug therapy
CPT/HCPCS: 36415; 76705; 80048; 80076; 81003; 83735; 85025; 99284

== ENCOUNTER 2023-07-25 09:12 | Outpatient (REF) | payer MEDICARE, MEDICAID, SELFPAY ==
--- NOTE | ~2023-07-25 | CT_ITS ---
CT ANGIOGRAM BRAIN, HEAD CLINICAL INFORMATION: Cerebral aneurysm COMPARISON: Head CT 05/22/2023. CTA head 09/10/2021. TECHNIQUE: Test bolus sequences followed by intravenous administration 75 mL of Omnipaque 350 intravenous contrast. Helical imaging was performed in the axial plane from the skull base to the vertex. Delayed postcontrast imaging of the head was also performed. The data was processed at the cath lab radiological technologist workstation for generation of MIP sequences. Three-dimensional volume rendered reformatted images were also generated at an offline 3-D workstation. The degree of stenosis determined by NASCET criteria. This CT examination was performed using dose optimization techniques as appropriate, variously including the following: *Automated exposure control *Adjustment of mA and/or kV according to patient size (this includes techniques or standardized protocols for targeted exams where dose is matched to indication/reason for exam; i.e. extremities or head) *Use of iterative reconstruction technique FINDINGS: Stable appearing 3.7 mm x 3 mm saccular aneurysm projecting laterally from the right MCA bifurcation. No new aneurysms intracranially. There is atherosclerotic calcification throughout the carotid siphons bilaterally without significant stenosis. No acute arterial occlusions. There is no pathologic enhancement intracranially. There is no intracranial hemorrhage, hydrocephalus, extra-axial surface collection, midline shift, or other herniation pattern. Oneill to white matter differentiation is diffusely maintained without evidence of an evolved acute territorial infarct. The basilar cisterns are preserved. No significant soft tissue abnormality. No acute osseous abnormality. The paranasal sinuses and the mastoid air cells are well aerated. CT/CT angio head IMPRESSION: Stable appearing 3.7 mm x 3 mm saccular aneurysm projecting laterally from the right MCA bifurcation.
[2023-07-25] MEDS: iohexoL 350 MG/ML 100 ML INFUS..BTL IV (10:54)
[2023-07-25 13:33] LABS: Creatinine POC 0.5 mg/dL (0.5-1.4); GFR POC > 60
== END 2023-07-25 09:13 | disposition home or self-care (01) ==
LOC: HO.CT 09:12
PROVIDERS: PCP Internal Medicine; Visit Provider Psychiatry & Neurology Neurology
DX: I67.1 Cerebral aneurysm, nonruptured (principal)
CPT/HCPCS: 70496; 82565; Q9967

== ENCOUNTER 2023-08-06 07:19 | Emergency (ER) | payer MEDICARE, MEDICAID, SELFPAY ==
--- NOTE | ~2023-08-06 | CT_ITS ---
EXAMINATION: CT HEAD WITHOUT CONTRAST CLINICAL INFORMATION: Altered mental status. COMPARISON: 05/22/2023. TECHNIQUE: Contiguous axial imaging was performed from the skull base to vertex without intravenous administration of contrast. This CT examination was performed using dose optimization techniques as appropriate, variously including the following: *Automated exposure control *Adjustment of mA and/or kV according to patient size (this includes techniques or standardized protocols for targeted exams where dose is matched to indication/reason for exam; i.e. extremities or head) *Use of iterative reconstruction technique DLP: 663 mGy-cm FINDINGS: The lateral, third and fourth ventricles are normally outlined. The cortical sulci and basal cisterns are normally outlined as well. There is no acute territorial defect, hemorrhage or midline shift. The extra-axial spaces are unremarkable. Calvarium: Intact. Maxillofacial sinuses and mastoids: There is partial right mastoid opacification similar to prior. The visualized maxillofacial sinuses and left mastoid are clear. CT/CT head/brain wo IV con IMPRESSION: No acute intracranial pathology.
[2023-08-06 07:25] VITALS: BP 158/68; PULSE 94; RESP 18; TEMP 36.1; O2SAT 96; BMI 30.7
[2023-08-06 08:47] LABS: MANUAL DIFF FLAG NO
[2023-08-06 08:49] LABS: Basophils Percent Auto 0.4 % (0-2); Eosinophils Absolute Auto 0.1 X10*3/uL (0.0-0.4); Eosinophils Percent Auto 2.1 % (0-4); Hematocrit 35.9 % (37.0-47.0); Hemoglobin 10.8 g/dl (12.0-16.0); Imm Gran Abs Auto 0.02 X10*3/uL (0.00-0.03); Imm Gran Pct Auto 0.3 % (0.0-0.4); Lymphocytes Absolute Auto 1.7 X10*3/uL (1.2-4.9); Lymphocytes Percent Auto 24.6 % (20-40); Mean Corpuscular HGB Conc 30.1 g/dl (31.0-35.0); Mean Corpuscular Hemoglobin 24.7 pg (27.0-33.0); Monocytes Absolute Auto 0.6 X10*3/uL (0.1-1.2); Monocytes Percent Auto 9.1 % (2-11); Neutrophils Absolute Auto 4.3 x10*3/uL (2.0-8.3); Neutrophils Percent Auto 63.5 % (45-73); Platelet Count 210 X10*3/uL (160-400); Red Blood Count 4.38 X10*6/uL (4.20-5.50); Red Cell Distribution Width 17.4 % (11.0-16.0); White Blood Count 6.7 X10*3/uL (4.8-10.8)
[2023-08-06 09:03] LABS: Alanine Aminotransferase 16 U/L (0-31); Albumin Level 3.9 g/dL (3.5-5.0); Alkaline Phosphatase 72 U/L (39-117); Anion Gap 14 (12-20); Aspartate Amino Transferase 20 U/L (5-31); Bilirubin Total 0.4 mg/dL (0.0-1.0); Blood Urea Nitrogen 13 mg/dL (9-16); Carbon Dioxide 23 mmol/L (22-29); Chloride 105 mmol/L (96-108); Creatinine Clr Calc Pharmacy 85.9; Estimated Glomerular Filt Rate > 60; Glucose Random 129 mg/dL (60-115); Potassium 3.2 mmol/L (3.3-5.1); Sodium 139 mmol/L (135-145); Total Protein 7.4 g/dL (6.5-8.0)
[2023-08-06 09:17] LABS: COVID-19 Test Negative (Negative); IDNOW Serial# 55D5AD1C; IDNOW Serial# 6674DD1D; Influenza A Negative (Negative); Influenza B2 Negative (Negative)
[2023-08-06 09:45] LABS: Ammonia < 14 umol/L (13-55)
[2023-08-06 09:46] LABS: Ethanol < 10 mg/dL
[2023-08-06 10:55] VITALS: BP 147/62; PULSE 96; RESP 18; TEMP 36.6; O2SAT 97
[2023-08-06 11:03] LABS: Appearance Urine Clear; Color Urine Yellow; Glucose Urine UA Negative (Negative); Leukocyte Esterase Urine Moderate (2+) (Negative); Nitrite Urine Negative (Negative); PH 5.5 (5.0-9.0); Specific Gravity - Urine <= 1.005 (1.005-1.025); UMIC TRIGGER UACC YES; Urine Blood Negative (Negative); Urine Ketones Negative (Negative); Urine Protein Negative (Neg-Trace)
[2023-08-06 11:05] LABS: Bacteria Urine None Seen (None Seen); Hyaline Casts Urine 0-2 /LPF (0-2); RBC Urine 0-2 /HPF (0-2); UACC Culture Trigger YES
[2023-08-06 11:17] LABS: Amphetamine Screen Urine Not Detected (Not Detect); Barbiturates, Urine Not Detected (Not Detect); Benzodiazepines Screen Urine Not Detected (Not Detect); Cannabinoid Screen Urine Not Detected (Not Detect); Cocaine Screen Urine Not Detected (Not Detect); Fentanyl, urine Not Detected (Not Detect); Opiate Screen Urine Not Detected (Not Detect); Phencyclidine Screen Urine Not Detected (Not Detect)
--- NOTE | 2023-08-06 15:22 | ED.GENADULT ---
HPI - General Adult General Chief complaint: General Medical Stated complaint: Issues with Fingers on Both Hands Time Seen by Provider: 08/06/23 08:48 Source: patient Mode of arrival: ambulatory Limitations: language barrier History of Present Illness HPI narrative: patient presents with lethargy and feeling that she has an infection to her finger. 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 Onset (ago): hour(s) Severity: mild Related Data Home Medications Medication Instructions Recorded Confirmed albuterol sulfate 90 mcg/actuation 2 puff inhalation Q4H PRN wheezing 09/27/22 05/27/23 aerosol inhaler amitriptyline 150 mg tablet 150 mg PO BEDTIME 09/27/22 05/27/23 aspirin 81 mg tablet,delayed 81 mg PO DAILY 09/27/22 05/27/23 release atorvastatin 80 mg tablet 80 mg PO BEDTIME 09/27/22 05/27/23 blood sugar diagnostic (D2C GamesTouch #10 ea 09/27/22 05/27/23 Ultra Test strips) duloxetine 20 mg capsule,delayed 20 mg PO DAILY 09/27/22 05/27/23 release duloxetine 60 mg capsule,delayed 60 mg PO DAILY 09/27/22 05/27/23 release gabapentin 100 mg capsule 100 mg PO BEDTIME diabetes mellitus 09/27/22 05/27/23 insulin glargine 100 unit/mL (3 30 unit subcut DAILY 09/27/22 05/27/23 mL) subcutaneous pen (Lantus Solostar U-100 Insulin) lancets 33 gauge (OneTouch Delica #100 ea 09/27/22 05/27/23 Plus Lancet) metoprolol succinate 25 mg 25 mg PO DAILY 09/27/22 05/27/23 tablet,extended release 24 hr montelukast 10 mg tablet 10 mg PO BEDTIME 09/27/22 05/27/23 omeprazole 20 mg capsule,delayed 20 mg PO DAILY 09/27/22 05/27/23 release quetiapine 100 mg tablet 100 mg PO BEDTIME 09/27/22 05/27/23 umeclidinium 62.5 mcg-vilanterol 1 ea inhalation DAILY 09/27/22 05/27/23 25 mcg/actuation powdr for inhalation (Anoro Ellipta) zolpidem 10 mg tablet 10 mg PO BEDTIME 09/27/22 05/27/23 gabapentin 300 mg capsule 300 mg PO BID 11/25/22 05/27/23 albuterol sulfate 2.5 mg/3 mL 1 vial inhalation Q4H PRN wheezing 12/16/22 05/27/23 (0.083 %) solution for nebulization lidocaine 1.8 % topical patch 1 patch topical DAILY 12/16/22 05/27/23 (ZTlido) naproxen 500 mg tablet 500 mg PO BID PRN 05/27/23 05/27/23 Previous Rx's Medication Instructions Recorded clonazepam 1 mg tablet (Klonopin) 1 mg PO BEDTIME #10 tabs 12/18/22 famotidine 20 mg tablet 20 mg PO BEDTIME #20 tabs 06/23/23 omeprazole 40 mg capsule,delayed 40 mg PO DAILY #20 caps 06/23/23 release ondansetron 4 mg disintegrating 4 mg PO Q8H PRN nausea and 06/23/23 tablet vomiting #10 tabs nitrofurantoin 100 mg PO Q12H 7 days #14 caps 08/06/23 monohydrate/macrocrystals 100 mg capsule (Macrobid) Allergies Allergy/AdvReac Type Severity Reaction Status Date / Time Penicillins Allergy Mild Swelling Verified 08/06/23 07:31 Review of Systems Review of Systems: Yes Unobtainable due to mental status Neurologic: Denies Sensory deficit (Neuro) PMFSH Past Medical History Medical History DJD (degenerative joint disease) COPD (chronic obstructive pulmonary disease) Bipolar disorder CTS (carpal tunnel syndrome) Hx of rheumatoid arthritis Diabetic neuropathy Urinary incontinence Aneurysm of middle cerebral artery Pulmonary nodules CHF (congestive heart failure) Palpitations Migraine History of COVID-19 Mild aortic stenosis Asthma Insulin dependent type 2 diabetes mellitus Mixed hyperlipidemia Mood disorder Essential hypertension Surgical History Hx of cataract surgery H/O: hysterectomy Hx of cholecystectomy History of carpal tunnel release Family History Family History Mother Myocardial infarction Father Myocardial infarction Sister Breast cancer Brother Spleen cancer Social History Social History Household Members: None Housing: Apartment Do you presently have visiting nurse or other home services: Yes (thru zoom) Unable to assess alcohol history related to: Unknown Alcohol intake: never Patient Tobacco Use Status: Former Tobacco user Quit Date: 10/13/1987 Cigarette Packs Per Day: 3 Years Smoked: [id number] Use of substances other than those prescribed or required for medical reasons: Unknown Advance Directives: Yes Advance Directives on File: Yes Advance Directives Date on File: 12/16/22 service: No Current occupational status: retired Physical Exam ED Vital Signs: Vital Signs - 24 hr 08/06/23 07:25 08/06/23 10:55 Temperature 96.9 F 97.8 F Pulse Rate 94 96 Respiratory Rate 18 18 Blood Pressure 158/68 H 147/62 H Pulse Oximetry 96 97 Oxygen Delivery Method Room Air Room Air BMI result Body Mass Index 30.7 Const Other: female looking older than stated age complaining of finger infection, obese looking older than stated age Orientation/consciousness: oriented to person Limitations: no limitations HENMT Head: Yes normal to inspection Ears: external ears normal General nose exam: Normal external nose present Mouth: Normal oral and palatal mucosa present and oropharynx normal Throat: Yes posterior oropharynx normal Eyes General: appearance normal, both eyes and all related structures Neck Neck: Yes normal visual inspection Chest Chest palpation & inspection: normal inspection of the chest Resp Auscultation: clear to auscultation bilaterally Cardio Jugular venous distension: no JVD Rate: regular rate Rhythm: regular rhythm Heart sounds: S1 normal heart sound present and S2 normal heart sound present GI Inspection: Yes normal to inspection Palpation (GI): Soft to palpation, nontender and No hepatosplenomegaly present Auscultation: normal bowel sounds General: Yes no CVA tenderness Back/Spine/Pelvis Back: no CVA tenderness Skin Other: single ulcer on finger, small, not infected, no erythema Neuro General: oriented to person Cranial nerves: Yes CN's II-XII intact bilaterally Motor exam (neuro): 5/5 motor strength present throughout Sensory Exam: No Sensory deficit (Neuro) Extrem General: Yes normal to inspection Psych Appearance: grossly normal Course Reevaluation(s) Reevaluation #1: patient is now awake, took her psychiatric medicine and that is why she was so sleepy, I discussed the fact that she has a UTI Time: 15:53 Reevaluation #2: patient has a STOCK BUYER to help her Time: 15:56 Medical Decision Making Differential Diagnosis Differential Diagnoses: The differential diagnosis associated with the presentation includes (CVA, brain tumor, enecephalopathy, UTI, psychiatric illness were all considered) Admission/Observation Consideration of admission/observation: Escalation of care including admission/observation considered (upon arrival patient was considered for admission) Lab Data MDM Lab Attestation statement: I reviewed the patient's lab results. (positive for UTI) 08/06/23 08:41 08/06/23 08:41 Labs: Lab Results 08/06/23 08/06/23 08/06/23 Range/Units 08:40 08:41 09:26 WBC 6.7 (4.8-10.8) X10*3/uL RBC 4.38 (4.20-5.50) X10*6/uL Hgb 10.8 L (12.0-16.0) g/dl Hct 35.9 L (37.0-47.0) % MCV 82.0 (80.0-98.0) fL MCH 24.7 L (27.0-33.0) pg MCHC 30.1 L (31.0-35.0) g/dl RDW 17.4 H (11.0-16.0) % Plt Count 210 (160-400) X10*3/uL MPV 11.0 (9.4-12.3) fL Immature Gran % (Auto) 0.3 (0.0-0.4) % Neut % (Auto) 63.5 (45-73) % Lymph % (Auto) 24.6 (20-40) % Mcdonald % (Auto) 9.1 (2-11) % Eos % (Auto) 2.1 (0-4) % Baso % (Auto) 0.4 (0-2) % Lymph # (Auto) 1.7 (1.2-4.9) X10*3/uL Mcdonald # (Auto) 0.6 (0.1-1.2) X10*3/uL Eos # (Auto) 0.1 (0.0-0.4) X10*3/uL Baso # (Auto) 0.0 (0.0-0.2) X10*3/uL Abs Immat Gran (auto) 0.02 (0.00-0.03) X10*3/uL Absolute Neuts (auto) 4.3 (2.0-8.3) x10*3/uL Absolute Nucleated RBC 0.000 (0.0-0.012) X10*3/uL Nucleated RBC % (auto) 0.0 (0.0-0.2) /100WBC Sodium 139 (135-145) mmol/L Potassium 3.2 L (3.3-5.1) mmol/L Chloride 105 (96-108) mmol/L Carbon Dioxide 23 (22-29) mmol/L Anion Gap 14 (12-20) BUN 13 (9-16) mg/dL Creatinine 0.66 (0.5-1.4) mg/dL Estim Creat Clear Calc 85.9 Estimated GFR > 60 Random Glucose 129 H (60-115) mg/dL Calcium 9.0 D (8.4-10.2) mg/dL Total Bilirubin 0.4 (0.0-1.0) mg/dL AST 20 (5-31) U/L ALT 16 (0-31) U/L Alkaline Phosphatase 72 (39-117) U/L Ammonia < 14 (13-55) umol/L Total Protein 7.4 (6.5-8.0) g/dL Albumin 3.9 (3.5-5.0) g/dL Urine Color Urine Appearance Urine pH (5.0-9.0) Ur Specific [place] (1.005-1.025) Urine Protein (Neg-Trace) mg/dL Urine Glucose (UA) (Negative) mg/dL Urine Ketones (Negative) mg/dL Urine Blood (Negative) Urine Nitrite (Negative) Ur Leukocyte Esterase (Negative) Urine RBC (0-2) /HPF Urine WBC (0-5) /HPF Ur Squamous Epith Cells (0-2) /HPF Urine Bacteria (None Seen) Hyaline Casts (0-2) /LPF Urine Opiates Screen (Not Detect) Urine Fentanyl Screen (Not Detect) Ur Barbiturates Screen (Not Detect) Ur Phencyclidine Scrn (Not Detect) Ur Amphetamines Screen (Not Detect) U Benzodiazepines Scrn (Not Detect) Urine Cocaine Screen (Not Detect) U Marijuana (THC) Screen (Not Detect) Ethyl Alcohol < 10 mg/dL COVID-19 ([facility]) Negative (Negative) COVID-19 Clin Com See Note Influenza Type A ([facility]) Negative (Negative) Influenza Type B ([facility]ON) Negative (Negative) Influenza A & B Note See Note 08/06/23 Range/Units 10:57 WBC (4.8-10.8) X10*3/uL RBC (4.20-5.50) X10*6/uL Hgb (12.0-16.0) g/dl Hct (37.0-47.0) % MCV (80.0-98.0) fL MCH (27.0-33.0) pg MCHC (31.0-35.0) g/dl RDW (11.0-16.0) % Plt Count (160-400) X10*3/uL MPV (9.4-12.3) fL Immature Gran % (Auto) (0.0-0.4) % Neut % (Auto) (45-73) % Lymph % (Auto) (20-40) % Mcdonald % (Auto) (2-11) % Eos % (Auto) (0-4) % Baso % (Auto) (0-2) % Lymph # (Auto) (1.2-4.9) X10*3/uL Mcdonald # (Auto) (0.1-1.2) X10*3/uL Eos # (Auto) (0.0-0.4) X10*3/uL Baso # (Auto) (0.0-0.2) X10*3/uL Abs Immat Gran (auto) (0.00-0.03) X10*3/uL Absolute Neuts (auto) (2.0-8.3) x10*3/uL Absolute Nucleated RBC (0.0-0.012) X10*3/uL Nucleated RBC % (auto) (0.0-0.2) /100WBC Sodium (135-145) mmol/L Potassium (3.3-5.1) mmol/L Chloride (96-108) mmol/L Carbon Dioxide (22-29) mmol/L Anion Gap (12-20) BUN (9-16) mg/dL Creatinine (0.5-1.4) mg/dL Estim Creat Clear Calc Estimated GFR Random Glucose (60-115) mg/dL Calcium (8.4-10.2) mg/dL Total Bilirubin (0.0-1.0) mg/dL AST (5-31) U/L ALT (0-31) U/L Alkaline Phosphatase (39-117) U/L Ammonia (13-55) umol/L Total Protein (6.5-8.0) g/dL Albumin (3.5-5.0) g/dL Urine Color Yellow Urine Appearance Clear Urine pH 5.5 (5.0-9.0) Ur Specific [place] <= 1.005 (1.005-1.025) Urine Protein Negative (Neg-Trace) mg/dL Urine Glucose (UA) Negative (Negative) mg/dL Urine Ketones Negative (Negative) mg/dL Urine Blood Negative (Negative) Urine Nitrite Negative (Negative) Ur Leukocyte Esterase Moderate (2+) H (Negative) Urine RBC 0-2 (0-2) /HPF Urine WBC 6-10 H (0-5) /HPF Ur Squamous Epith Cells 3-5 (0-2) /HPF Urine Bacteria None Seen (None Seen) Hyaline Casts 0-2 (0-2) /LPF Urine Opiates Screen Not Detected (Not Detect) Urine Fentanyl Screen Not Detected (Not Detect) Ur Barbiturates Screen Not Detected (Not Detect) Ur Phencyclidine Scrn Not Detected (Not Detect) Ur Amphetamines Screen Not Detected (Not Detect) U Benzodiazepines Scrn Not Detected (Not Detect) Urine Cocaine Screen Not Detected (Not Detect) U Marijuana (THC) Screen Not Detected (Not Detect) Ethyl Alcohol mg/dL COVID-19 ([facility]) (Negative) COVID-19 Clin Com Influenza Type A ([facility]ARON) (Negative) Influenza Type B ([facility]ARON) (Negative) Influenza A & B Note Independent Interpretation I performed an independent interpretation of an: CT Scan (head: atrophy no bleed or mass) Radiology Impression Discussion of test interpretation with radiology: I have reviewed the radiologist's reading. External Record Review External record reviewed: Outpatient record Chronic Conditions Patient?s care impacted by: Diabetes, Hypertension and Other (psychiatric illness) Social Determinants Patient?s care significantly limited by Social Determinants of Health including: Low income Discharge Plan Discharge Clinical Impression: Urinary tract infection, Medication side effects Patient Disposition: Home, Self-Care Instructions: Urinary Tract Infection in Women (DC) Prescriptions: New nitrofurantoin monohyd/m-cryst [Macrobid] 100 mg capsule 100 mg PO Q12H 7 Days Qty: 14 0RF Rx Instructions: must administer with a meal/food No Action gabapentin 300 mg capsule 300 mg PO BID albuterol sulfate 2.5 mg /3 mL (0.083 %) solution for nebulization 1 vial inhalation Q4H PRN (Reason: wheezing) ZTlido 1.8 % adhesive patch,medicated 1 patch topical DAILY clonazepam [Klonopin] 1 mg tablet 1 mg PO BEDTIME Qty: 10 0RF Rx Instructions: administer 30 minutes before bedtime omeprazole 40 mg capsule,delayed release(DR/EC) 40 mg PO DAILY Qty: 20 0RF famotidine 20 mg tablet 20 mg PO BEDTIME Qty: 20 0RF ondansetron 4 mg tablet,disintegrating 4 mg PO Q8H PRN (Reason: nausea and vomiting) Qty: 10 0RF montelukast 10 mg tablet 10 mg PO BEDTIME (DME) lancets [OneTouch Delica Plus Lancet] 33 gauge misc See Rx Instructions .ROUTE BID Qty: 100 Rx Instructions: As directed insulin glargine [Lantus Solostar U-100 Insulin] 100 unit/mL (3 mL) insulin pen 30 unit subcut DAILY duloxetine 60 mg capsule,delayed release(DR/EC) 60 mg PO DAILY duloxetine 20 mg capsule,delayed release(DR/EC) 20 mg PO DAILY albuterol sulfate 90 mcg/actuation HFA aerosol inhaler 2 puff inhalation Q4H PRN (Reason: wheezing) zolpidem 10 mg tablet 10 mg PO BEDTIME metoprolol succinate 25 mg tablet extended release 24 hr 25 mg PO DAILY gabapentin 100 mg capsule 100 mg PO BEDTIME omeprazole 20 mg capsule,delayed release(DR/EC) 20 mg PO DAILY quetiapine 100 mg tablet 100 mg PO BEDTIME aspirin 81 mg tablet,delayed release (DR/EC) 81 mg PO DAILY amitriptyline 150 mg tablet 150 mg PO BEDTIME atorvastatin 80 mg tablet 80 mg PO BEDTIME Anoro Ellipta 62.5-25 mcg/actuation blister with device 1 ea inhalation DAILY (DME) OneTouch Ultra Test Strip See Rx Instructions .ROUTE BID Qty: 10 Rx Instructions: As directed naproxen 500 mg tablet 500 mg PO BID PRN Referrals: Ashwin Arzola III, MD [Primary Care Provider] - 5 days
[2023-08-06 16:00] VITALS: BP 122/54; PULSE 84; RESP 16; TEMP 36.8; O2SAT 98
[2023-08-06] MEDS: Nitrofurantoin Monohyd/M-Cryst 100 MG CAPSULE PO (16:50)
== END 2023-08-06 16:59 | disposition home or self-care (01) ==
PROVIDERS: Emergency Provider Emergency Medicine; PCP Internal Medicine
DX: N39.0 Urinary tract infection, site not specified (principal); R53.83 Other fatigue; T50.905A Adverse effect of unspecified drugs, medicaments and biological substances, initial encounter; Y92.9 Unspecified place or not applicable; Z11.52 Encounter for screening for COVID-19; E11.9 Type 2 diabetes mellitus without complications; I11.0 Hypertensive heart disease with heart failure; I50.9 Heart failure, unspecified; E78.2 Mixed hyperlipidemia; F31.9 Bipolar disorder, unspecified; Z79.82 Long term (current) use of aspirin; Z79.899 Other long term (current) drug therapy; Z79.4 Long term (current) use of insulin; Z87.891 Personal history of nicotine dependence
CPT/HCPCS: 36415; 70450; 80053; 80307; 81001; 81003; 82140; 85025; 87086; 87502; 87635; 99284

== ENCOUNTER 2023-09-10 03:50 | Emergency (ER) | payer MEDICARE, SELFPAY ==
--- NOTE | 2023-09-10 | ECG_ITS ---
Test Reason : CHEST PAIN Blood Pressure : / mmHG Vent. Rate : 081 BPM Atrial Rate : 081 BPM P-R Int : 182 ms QRS Dur : 076 ms QT Int : 372 ms P-R-T Axes : 050 009 022 degrees QTc Int : 432 ms Normal sinus rhythm Normal ECG When compared with ECG of 22-MAY-2023 10:50, No significant change was found Referred By: Generic ED Physician Electronically Signed By:DONG MORGAN MD
[2023-09-10 03:55] VITALS: BP 148/66; BP 154/73; PULSE 80; PULSE 90; RESP 18; TEMP 37; O2SAT 97; BMI 28.3
--- NOTE | 2023-09-10 04:09 | MHC.EDTECH ---
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
[2023-09-10 04:26] LABS: Basophils Percent Auto 0.2 % (0-2); Eosinophils Absolute Auto 0.1 X10*3/uL (0.0-0.4); Eosinophils Percent Auto 1.1 % (0-4); Hematocrit 34.6 % (37.0-47.0); Hemoglobin 10.7 g/dl (12.0-16.0); Imm Gran Abs Auto 0.02 X10*3/uL (0.00-0.03); Imm Gran Pct Auto 0.2 % (0.0-0.4); Lymphocytes Absolute Auto 1.8 X10*3/uL (1.2-4.9); Lymphocytes Percent Auto 19.6 % (20-40); MANUAL DIFF FLAG NO; Mean Corpuscular HGB Conc 30.9 g/dl (31.0-35.0); Mean Corpuscular Hemoglobin 24.6 pg (27.0-33.0); Mean Corpuscular Volume 79.5 fL (80.0-98.0); Monocytes Absolute Auto 0.7 X10*3/uL (0.1-1.2); Monocytes Percent Auto 7.6 % (2-11); Neutrophils Absolute Auto 6.4 x10*3/uL (2.0-8.3); Neutrophils Percent Auto 71.3 % (45-73); Platelet Count 220 X10*3/uL (160-400); Red Blood Count 4.35 X10*6/uL (4.20-5.50); Red Cell Distribution Width 17.7 % (11.0-16.0); White Blood Count 8.9 X10*3/uL (4.8-10.8)
[2023-09-10 04:44] LABS: Alanine Aminotransferase 12 U/L (0-31); Albumin Level 3.9 g/dL (3.5-5.0); Alkaline Phosphatase 75 U/L (39-117); Anion Gap 14 (12-20); Aspartate Amino Transferase 18 U/L (5-31); Bilirubin Direct 0.2 mg/dL (0.0-0.5); Bilirubin Total 0.4 mg/dL (0.0-1.0); Blood Urea Nitrogen 14 mg/dL (9-16); Carbon Dioxide 26 mmol/L (22-29); Chloride 103 mmol/L (96-108); Creatinine Clr Calc Pharmacy 76.8; Estimated Glomerular Filt Rate > 60; Glucose Random 96 mg/dL (60-115); Potassium 3.6 mmol/L (3.3-5.1); Sodium 139 mmol/L (135-145); Total Protein 7.5 g/dL (6.5-8.0)
[2023-09-10 04:47] LABS: Troponin-I High Sensitivity 28.1 ng/L (<3.5-17.0)
--- NOTE | 2023-09-10 05:19 | ED_ITS ---
HPI - General Adult General Chief complaint: Abdominal Pain Stated complaint: multiple complaints, uti, abd, diff swallowing Time Seen by Provider: 09/10/23 05:05 Source: patient Mode of arrival: ambulatory Limitations: no limitations History of Present Illness HPI narrative: Patient with cough chronic abdominal pain secondary to fatty liver COPD bipolar disorder asthma diabetes hypertension comes in for multiple complaints nonspecific complaining of dry mouth and lips for last 3 months been to our hospital and based on medical doctor for the same also complaining of belly pain and nausea vomiting which is going on for awhile no fever no chills no urinary complaint Related Data Home Medications Medication Instructions Recorded Confirmed albuterol sulfate 90 mcg/actuation 2 puff inhalation Q4H PRN wheezing 09/27/22 05/27/23 aerosol inhaler amitriptyline 150 mg tablet 150 mg PO BEDTIME 09/27/22 05/27/23 aspirin 81 mg tablet,delayed 81 mg PO DAILY 09/27/22 05/27/23 release atorvastatin 80 mg tablet 80 mg PO BEDTIME 09/27/22 05/27/23 blood sugar diagnostic ([employer] #10 ea 09/27/22 05/27/23 Ultra Test strips) duloxetine 20 mg capsule,delayed 20 mg PO DAILY 09/27/22 05/27/23 release duloxetine 60 mg capsule,delayed 60 mg PO DAILY 09/27/22 05/27/23 release gabapentin 100 mg capsule 100 mg PO BEDTIME diabetes mellitus 09/27/22 05/27/23 insulin glargine 100 unit/mL (3 30 unit subcut DAILY 09/27/22 05/27/23 mL) subcutaneous pen (Lantus Solostar U-100 Insulin) lancets 33 gauge ([employer] Delica #100 ea 09/27/22 05/27/23 Plus Lancet) metoprolol succinate 25 mg 25 mg PO DAILY 09/27/22 05/27/23 tablet,extended release 24 hr montelukast 10 mg tablet 10 mg PO BEDTIME 09/27/22 05/27/23 omeprazole 20 mg capsule,delayed 20 mg PO DAILY 09/27/22 05/27/23 release quetiapine 100 mg tablet 100 mg PO BEDTIME 09/27/22 05/27/23 umeclidinium 62.5 mcg-vilanterol 1 ea inhalation DAILY 09/27/22 05/27/23 25 mcg/actuation powdr for inhalation (Anoro Ellipta) zolpidem 10 mg tablet 10 mg PO BEDTIME 09/27/22 05/27/23 gabapentin 300 mg capsule 300 mg PO BID 11/25/22 05/27/23 albuterol sulfate 2.5 mg/3 mL 1 vial inhalation Q4H PRN wheezing 12/16/22 05/27/23 (0.083 %) solution for nebulization lidocaine 1.8 % topical patch 1 patch topical DAILY 12/16/22 05/27/23 (ZTlido) naproxen 500 mg tablet 500 mg PO BID PRN 05/27/23 05/27/23 Previous Rx's Medication Instructions Recorded clonazepam 1 mg tablet (Klonopin) 1 mg PO BEDTIME #10 tabs 12/18/22 famotidine 20 mg tablet 20 mg PO BEDTIME #20 tabs 06/23/23 omeprazole 40 mg capsule,delayed 40 mg PO DAILY #20 caps 06/23/23 release ondansetron 4 mg disintegrating 4 mg PO Q8H PRN nausea and 06/23/23 tablet vomiting #10 tabs nitrofurantoin 100 mg PO Q12H 7 days #14 caps 08/06/23 monohydrate/macrocrystals 100 mg capsule (Macrobid) ondansetron 4 mg disintegrating 4 mg PO Q6-8H PRN nausea and 09/10/23 tablet vomiting #7 tabs Allergies Allergy/AdvReac Type Severity Reaction Status Date / Time Penicillins Allergy Mild Swelling Verified 09/10/23 04:07 Review of Systems 2 Review of Systems: Yes all other systems are reviewed and are negative [facility] Past Medical History Medical History DJD (degenerative joint disease) COPD (chronic obstructive pulmonary disease) Bipolar disorder CTS (carpal tunnel syndrome) Hx of rheumatoid arthritis Diabetic neuropathy Urinary incontinence Aneurysm of middle cerebral artery Pulmonary nodules CHF (congestive heart failure) Palpitations Migraine History of COVID-19 Mild aortic stenosis Asthma Insulin dependent type 2 diabetes mellitus Mixed hyperlipidemia Mood disorder Essential hypertension Surgical History Hx of cataract surgery H/O: hysterectomy Hx of cholecystectomy History of carpal tunnel release Family History Family History Mother Myocardial infarction Father Myocardial infarction Sister Breast cancer Brother Spleen cancer Social History Social History Household Members: None Housing: Apartment Do you presently have visiting nurse or other home services: Yes (thru zoom) Unable to assess alcohol history related to: Unknown Alcohol intake: never Patient Tobacco Use Status: Former Tobacco user Quit Date: 10/13/1987 Cigarette Packs Per Day: 3 Years Smoked: [id number] Smoked in Last 30 Days: No Use of substances other than those prescribed or required for medical reasons: No Advance Directives: Yes Advance Directives on File: Yes Advance Directives Date on File: 12/16/22 service: No Current occupational status: retired Physical Exam ED Vital Signs: Vital Signs - 24 hr 09/10/23 03:55 09/10/23 05:32 Temperature 98.6 F 98.2 F Pulse Rate 90 78 Respiratory Rate 18 16 Blood Pressure 154/73 H 117/57 L Pulse Oximetry 97 Oxygen Delivery Method Room Air BMI result Body Mass Index 28.3 Appearance: Alert. Oriented X3. No acute distress. Eyes: PERRLA, No Nystagmus ENT: Pharynx normal. Oral Mucosa dry With lips chapped Neck: Normal inspection. Neck supple. CVS: Normal heart rate and rhythm. Pulses normal. Respiratory: No respiratory distress. Equal air entry bilateral, no wheezing/rales/rhonchi Abdomen: Soft and diffuse tenderness no rebound and no guarding Bowel sounds are present, no mass palpable, no CVA tenderness Skin: Skin warm and dry. Normal skin color. Normal skin turgor. Extremities: No lower extremity edema. No calf tenderness Neuro: Oriented X 3. No motor deficit. No sensory deficit.No cerebellar signs , cranial nerves II-XII intact Medications Administered Discontinued Medications Generic Name Dose Route Start Last Admin Trade Name Freq PRN Reason Stop Dose Admin Lorazepam 1 mg 09/10/23 05:21 09/10/23 05:28 Lorazepam 1 Mg Tablet PO 09/10/23 05:22 1 mg ONCE ONE Administration Medical Decision Making Medical Decision Making MDM Narrative: Patient multiple complaints nonspecific labs are stable will check the urine and will give medicine for anxiety, after taking ativan for anxiety patient feeling much better taking p.o. fluids no vomiting noticed in the ER patient UA is contaminated with multiple squamous cells and white cells with nitrite negative Differential Diagnosis Differential Diagnoses: The differential diagnosis associated with the presentation includes As above Lab Data MDM Lab Attestation statement: I reviewed the patient's lab results. 09/10/23 04:18 09/10/23 04:18 Labs: Lab Results 09/10/23 09/10/23 09/10/23 Range/Units 04:18 05:58 06:11 WBC 8.9 (4.8-10.8) X10*3/uL RBC 4.35 (4.20-5.50) X10*6/uL Hgb 10.7 L (12.0-16.0) g/dl Hct 34.6 L (37.0-47.0) % MCV 79.5 L (80.0-98.0) fL MCH 24.6 L (27.0-33.0) pg MCHC 30.9 L (31.0-35.0) g/dl RDW 17.7 H (11.0-16.0) % Plt Count 220 (160-400) X10*3/uL MPV 11.0 (9.4-12.3) fL Immature Gran % (Auto) 0.2 (0.0-0.4) % Neut % (Auto) 71.3 (45-73) % Lymph % (Auto) 19.6 L (20-40) % [place] % (Auto) 7.6 (2-11) % Eos % (Auto) 1.1 (0-4) % Baso % (Auto) 0.2 (0-2) % Lymph # (Auto) 1.8 (1.2-4.9) X10*3/uL [place] # (Auto) 0.7 (0.1-1.2) X10*3/uL Eos # (Auto) 0.1 (0.0-0.4) X10*3/uL Baso # (Auto) 0.0 (0.0-0.2) X10*3/uL Abs Immat Gran (auto) 0.02 (0.00-0.03) X10*3/uL Absolute Neuts (auto) 6.4 (2.0-8.3) x10*3/uL Absolute Nucleated RBC 0.000 (0.0-0.012) X10*3/uL Nucleated RBC % (auto) 0.0 (0.0-0.2) /100WBC Sodium 139 (135-145) mmol/L Potassium 3.6 (3.3-5.1) mmol/L Chloride 103 (96-108) mmol/L Carbon Dioxide 26 (22-29) mmol/L Anion Gap 14 (12-20) BUN 14 (9-16) mg/dL Creatinine 0.71 (0.5-1.4) mg/dL Estim Creat Clear Calc 76.8 Estimated GFR > 60 Random Glucose 96 (60-115) mg/dL Calcium 9.0 (8.4-10.2) mg/dL Total Bilirubin 0.4 (0.0-1.0) mg/dL Direct Bilirubin 0.2 (0.0-0.5) mg/dL AST 18 (5-31) U/L ALT 12 (0-31) U/L Alkaline Phosphatase 75 (39-117) U/L Troponin I High Sens 28.1 H (<3.5-17.0) ng/L Total Protein 7.5 (6.5-8.0) g/dL Albumin 3.9 (3.5-5.0) g/dL Urine Color Yellow Urine Appearance Cloudy Urine pH 5.0 (5.0-9.0) Ur Specific [place] 1.015 (1.005-1.025) Urine Protein Negative (Neg-Trace) mg/dL Urine Glucose (UA) Negative (Negative) mg/dL Urine Ketones 15 (Negative) mg/dL Urine Blood Negative (Negative) Urine Nitrite Negative (Negative) Ur Leukocyte Esterase Moderate (2+) H (Negative) Urine RBC 0-2 (0-2) /HPF Urine WBC 21-50 H (0-5) /HPF Ur Squamous Epith Cells 11-20 (0-2) /HPF Urine Bacteria 1+ (None Seen) Hyaline Casts 11-20 (0-2) /LPF S. pyogenes GrpA SHARON Negative (Negative) Discharge Plan Discharge Clinical Impression: Chronic abdominal pain, Fatty liver Patient Disposition: Home, Self-Care Instructions: Non-Alcoholic Fatty Liver Disease (ED), Abdominal Pain (ED) Additional Instructions: Drink plenty of fluids Take your anxiety medication prescribed by your physician Romain for severe nausea/vomiting Beber mucho l?quido [place] los medicamentos para la ansiedad recetados por gamboa m?dico. Romain para n?useas/v?mitos intensos Prescriptions: New ondansetron 4 mg tablet,disintegrating 4 mg PO Q6-8H PRN (Reason: nausea and vomiting) Qty: 7 0RF No Action gabapentin 300 mg capsule 300 mg PO BID albuterol sulfate 2.5 mg /3 mL (0.083 %) solution for nebulization 1 vial inhalation Q4H PRN (Reason: wheezing) ZTlido 1.8 % adhesive patch,medicated 1 patch topical DAILY clonazepam [Klonopin] 1 mg tablet 1 mg PO BEDTIME Qty: 10 0RF Rx Instructions: administer 30 minutes before bedtime omeprazole 40 mg capsule,delayed release(DR/EC) 40 mg PO DAILY Qty: 20 0RF famotidine 20 mg tablet 20 mg PO BEDTIME Qty: 20 0RF ondansetron 4 mg tablet,disintegrating 4 mg PO Q8H PRN (Reason: nausea and vomiting) Qty: 10 0RF nitrofurantoin monohyd/m-cryst [Macrobid] 100 mg capsule 100 mg PO Q12H 7 Days Qty: 14 0RF Rx Instructions: must administer with a meal/food montelukast 10 mg tablet 10 mg PO BEDTIME (DME) lancets [OneTouch Delica Plus Lancet] 33 gauge misc See Rx Instructions .ROUTE BID Qty: 100 Rx Instructions: As directed insulin glargine [Lantus Solostar U-100 Insulin] 100 unit/mL (3 mL) insulin pen 30 unit subcut DAILY duloxetine 60 mg capsule,delayed release(DR/EC) 60 mg PO DAILY duloxetine 20 mg capsule,delayed release(DR/EC) 20 mg PO DAILY albuterol sulfate 90 mcg/actuation HFA aerosol inhaler 2 puff inhalation Q4H PRN (Reason: wheezing) zolpidem 10 mg tablet 10 mg PO BEDTIME metoprolol succinate 25 mg tablet extended release 24 hr 25 mg PO DAILY gabapentin 100 mg capsule 100 mg PO BEDTIME omeprazole 20 mg capsule,delayed release(DR/EC) 20 mg PO DAILY quetiapine 100 mg tablet 100 mg PO BEDTIME aspirin 81 mg tablet,delayed release (DR/EC) 81 mg PO DAILY amitriptyline 150 mg tablet 150 mg PO BEDTIME atorvastatin 80 mg tablet 80 mg PO BEDTIME Anoro Ellipta 62.5-25 mcg/actuation blister with device 1 ea inhalation DAILY (DME) OneTouch Ultra Test Strip See Rx Instructions .ROUTE BID Qty: 10 Rx Instructions: As directed naproxen 500 mg tablet 500 mg PO BID PRN Print Language: Tuvaluan
[2023-09-10] MEDS: LORazepam 1 MG TABLET PO (05:28)
[2023-09-10 05:32] VITALS: BP 117/57; PULSE 78; RESP 16; TEMP 36.8
--- NOTE | 2023-09-10 05:36 | PC.NURSE ---
Attempting PO trial with saltines and cranberry.
--- NOTE | 2023-09-10 05:50 | MHC.EDTECH ---
Patient ate a few saltines crackers and drank 120 ml juice ,tolerated well did not vomit ,SAULO Braun aware ,Streap swab collected and sent to lab .
[2023-09-10 06:10] LABS: IDNOW Serial# 6674DD1D; Strep A Nucleic Acid Negative (Negative)
--- NOTE | 2023-09-10 06:12 | MHC.EDTECH ---
Patient was assisted unto bedside commode ,void ,urine sample collected and sent to lab .
[2023-09-10 06:20] LABS: Appearance Urine Cloudy; Color Urine Yellow; Glucose Urine UA Negative (Negative); Leukocyte Esterase Urine Moderate (2+) (Negative); Nitrite Urine Negative (Negative); Specific Gravity - Urine 1.015 (1.005-1.025); UMIC TRIGGER UACC YES; Urine Blood Negative (Negative); Urine Ketones 15 mg/dL (Negative); Urine Protein Negative (Neg-Trace)
[2023-09-10 06:38] LABS: Bacteria Urine 1+ (None Seen); RBC Urine 0-2 /HPF (0-2); UACC Culture Trigger YES; WBC Urine 21-50 /HPF (0-5)
== END 2023-09-10 08:48 | disposition home or self-care (01) ==
PROVIDERS: Emergency Provider Internal Medicine; PCP Internal Medicine
DX: R10.9 Unspecified abdominal pain (principal); K76.0 Fatty (change of) liver, not elsewhere classified; R07.89 Other chest pain; N39.0 Urinary tract infection, site not specified; R13.10 Dysphagia, unspecified; Z11.52 Encounter for screening for COVID-19; Z20.822 Contact with and (suspected) exposure to COVID-19; Z79.899 Other long term (current) drug therapy; Z87.891 Personal history of nicotine dependence
CPT/HCPCS: 36415; 80053; 81001; 82248; 84484; 85025; 87086; 87651; 93005; 99283; 99285

== ENCOUNTER 2023-10-16 07:30 | Inpatient (IN) | payer MEDICARE, OTHER, SELFPAY ==
--- NOTE | ~2023-10-16 | CT_ITS ---
EXAMINATION: CT HEAD WITHOUT CONTRAST CLINICAL INFORMATION: Left-sided weakness COMPARISON: CT brain 08/06/2023. TECHNIQUE: Contiguous axial imaging was performed from the skull base to vertex without intravenous administration of contrast. This CT examination was performed using dose optimization techniques as appropriate, variously including the following: *Automated exposure control *Adjustment of mA and/or kV according to patient size (this includes techniques or standardized protocols for targeted exams where dose is matched to indication/reason for exam; i.e. extremities or head) *Use of iterative reconstruction technique DLP: 741 mGy-cm FINDINGS: There is no acute intra-axial, extra-axial bleed, masses or midline shift. There is no acute infarction evolution. There is no edema. The lateral ventricles are symmetrical in size and configuration with mild enlargement. Bone windows reveal no calvarial abnormality. No scalp soft tissue abnormality seen. Bilateral paranasal sinuses and mastoid air cells are well-aerated. There is jesus bullosa of bilateral middle turbinates CT/CT head/brain wo IV con IMPRESSION: No acute intracranial process seen.
--- NOTE | ~2023-10-16 | XR_ITS ---
EXAMINATION: XR SHOULDER, RIGHT CLINICAL INFORMATION: Trauma COMPARISON: X-ray the right shoulder December 2022 TECHNIQUE: AP external rotation, Grashey, scapular Y, and axillary views of the right shoulder. FINDINGS: The bones and soft tissues are normal. No fracture. Glenohumeral and acromioclavicular alignment is anatomic with normal joint space. No abnormal soft tissue calcifications. XR/XR shoulder RT min 2V IMPRESSION: Normal right shoulder.
[2023-10-16 07:35] VITALS: BP 138/76; PULSE 113; RESP 20; TEMP 36.1; O2SAT 94; BMI 27.8
[2023-10-16 08:17] LABS: Alanine Aminotransferase 12 U/L (0-31); Albumin Level 3.9 g/dL (3.5-5.0); Alkaline Phosphatase 73 U/L (39-117); Anion Gap 14 (12-20); Aspartate Amino Transferase 17 U/L (5-31); Bilirubin Total 0.4 mg/dL (0.0-1.0); Blood Urea Nitrogen 21 mg/dL (9-16); Calcium 9.3 mg/dL (8.4-10.2); Carbon Dioxide 24 mmol/L (22-29); Chloride 105 mmol/L (96-108); Estimated Glomerular Filt Rate > 60; Glucose Random 218 mg/dL (60-115); Potassium 3.3 mmol/L (3.3-5.1); Sodium 140 mmol/L (135-145); Total Protein 7.3 g/dL (6.5-8.0)
[2023-10-16 11:27] VITALS: BP 161/58; PULSE 88; RESP 18; TEMP 36.7; O2SAT 99
[2023-10-16 17:09] VITALS: BP 139/70; PULSE 88; RESP 18; TEMP 36.7; O2SAT 97
[2023-10-16 23:51] VITALS: BP 159/72; PULSE 90; RESP 20; TEMP 36.8; O2SAT 99
--- NOTE | 2023-10-17 01:07 | PC.NURSE ---
pt brought from home by son in law this morning. pt reports she has been experiencing bilateral hand itching. pt reports her apartment is infested with bugs and reports they are all over her skin and in her veins. pt reports she had DIRECTOR OF ACCOUNTS RECEIVABLE come to apartment to check out the bugs and the DIRECTOR OF ACCOUNTS RECEIVABLE said okay and left. Pt does not have bugs visible on the skin, skin appropriate for ethnicity. pt denies si/hi. pt changed to pod attire and labs obtained. report given to pod.
--- NOTE | 2023-10-17 02:02 | PC.NURSE ---
patient received in pod, seemed hungry on arrival, given sandwich and water upon arrival, urine sent to lab. patient expressed felt anxiety seemed unclear why she is in the pod, patient didnt express risk to self or others, but perception changes
--- NOTE | 2023-10-17 02:33 | ED_ITS ---
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 ? Patient states for the last 2 months she has had ?bacteria and bugs that are eating my skin. ? She reports that she has been to multiple hospitals including [facility] as recently as last week and ?they did not do anything for me. ? She reports that she is ?taking Benadryl all the time and does not help. ? She reports the rash is widespread to the arms, legs, abdomen and back. Denies any fevers or chills Related Data Home Medications Medication Instructions Recorded Confirmed albuterol sulfate 90 mcg/actuation 2 puff inhalation Q4H PRN wheezing 09/27/22 10/17/23 aerosol inhaler amitriptyline 150 mg tablet 150 mg PO BEDTIME 09/27/22 10/17/23 aspirin 81 mg tablet,delayed 81 mg PO DAILY 09/27/22 10/17/23 release atorvastatin 80 mg tablet 80 mg PO BEDTIME 09/27/22 10/17/23 blood sugar diagnostic ([employer] #10 ea 09/27/22 05/27/23 Ultra Test strips) duloxetine 20 mg capsule,delayed 20 mg PO DAILY 09/27/22 10/17/23 release duloxetine 60 mg capsule,delayed 60 mg PO DAILY 09/27/22 10/17/23 release insulin glargine 100 unit/mL (3 30 unit subcut DAILY 09/27/22 10/17/23 mL) subcutaneous pen (Lantus Solostar U-100 Insulin) lancets 33 gauge ([employer] Gall[place] #100 ea 09/27/22 05/27/23 Plus Lancet) metoprolol succinate 25 mg 25 mg PO DAILY 09/27/22 10/17/23 tablet,extended release 24 hr montelukast 10 mg tablet 10 mg PO BEDTIME 09/27/22 10/17/23 omeprazole 20 mg capsule,delayed 20 mg PO DAILY 09/27/22 10/17/23 release zolpidem 10 mg tablet 10 mg PO BEDTIME 09/27/22 10/17/23 gabapentin 300 mg capsule 300 mg PO BID 11/25/22 10/17/23 albuterol sulfate 2.5 mg/3 mL 1 vial inhalation Q4H PRN wheezing 12/16/22 10/17/23 (0.083 %) solution for nebulization rbguxxzrxm-faxjrxxtsvqsc-[id number] 1 tab PO Q6H PRN Headache 10/17/23 10/17/23 50 mg-325 mg-40 mg tablet clonazepam 0.5 mg tablet 0.5 mg PO BID PRN Anxiety 10/17/23 10/17/23 loratadine 10 mg tablet 10 mg PO DAILY 10/17/23 10/17/23 metformin 500 mg tablet,extended 500 mg PO BID 10/17/23 10/17/23 release 24 hr tramadol 50 mg tablet 50 mg PO Q8H PRN Pain 10/17/23 10/17/23 Previous Rx's Medication Instructions Recorded clonazepam 1 mg tablet (Klonopin) 1 mg PO BEDTIME #10 tabs 12/18/22 ondansetron 4 mg disintegrating 4 mg PO Q8H PRN nausea and 06/23/23 tablet vomiting #10 tabs Allergies Allergy/AdvReac Type Severity Reaction Status Date / Time Penicillins Allergy Mild Swelling Verified 09/10/23 04:07 Review of Systems 2 Constitutional: Constitutional: Denies chills and Denies fever(s) ENT: Denies sore throat Cardiovascular: Cardiovascular: Denies no additional cardiovascular complaints, Denies chest pain, Denies rapid heart rate and Reports dyspnea Respiratory: Respiratory: Denies cough and Reports dyspnea Gastrointestinal: Gastrointestinal: Denies abdominal pain, Denies nausea and Denies vomiting Musculoskeletal: Musculoskeletal: Denies back pain Integumentary/Breasts: Skin/Breast: Reports pruritus, Denies non-healing lesions, Denies erythema, Denies rash, Denies unusual bruising and Denies wounds PMFSH Past Medical History Onset Date is defined in the Problem List Problems that require an onset date and time if occurred within 24 hrs of arrival to the ED Aortic Dissection and Rupture; Neurologic impairment; Cardiopulmonary Arrest; Endotracheal Intubation; Insertion or Replacement of Mechanical Circulatory Assist Device Medical History DJD (degenerative joint disease) COPD (chronic obstructive pulmonary disease) Bipolar disorder CTS (carpal tunnel syndrome) Hx of rheumatoid arthritis Diabetic neuropathy Urinary incontinence Aneurysm of middle cerebral artery Pulmonary nodules CHF (congestive heart failure) Palpitations Migraine History of COVID-19 Mild aortic stenosis Asthma Insulin dependent type 2 diabetes mellitus Mixed hyperlipidemia Mood disorder Essential hypertension Surgical History Hx of cataract surgery H/O: hysterectomy Hx of cholecystectomy History of carpal tunnel release Family History Family History Mother Myocardial infarction Father Myocardial infarction Sister Breast cancer Brother Spleen cancer Social History Social History Household Members: None Housing: Apartment Do you presently have visiting nurse or other home services: Yes (thru zoom) Unable to assess alcohol history related to: Unknown Alcohol intake: never Patient Tobacco Use Status: Former Tobacco user Quit Date: 10/13/1987 Cigarette Packs Per Day: 3 Years Smoked: 4354-2801 Smoked in Last 30 Days: No Use of substances other than those prescribed or required for medical reasons: No Advance Directives: Yes Advance Directives on File: Yes Advance Directives Date on File: 12/16/22 Healthcare Proxy: Yes (Celina [phone]) Guardian: No service: No Current occupational status: retired Physical Exam ED Vital Signs: Vital Signs - 24 hr 10/19/23 14:39 10/19/23 21:15 10/20/23 05:28 Temperature 97.1 F 97.5 F 97.4 F Pulse Rate 74 75 80 Respiratory Rate 12 18 16 Blood Pressure 135/53 L 144/61 H 137/63 Pulse Oximetry 96 97 96 Oxygen Delivery Method Room Air Room Air Room Air 10/20/23 09:00 Temperature Pulse Rate 72 Respiratory Rate 16 Blood Pressure 140/61 H Pulse Oximetry Oxygen Delivery Method BMI result Body Mass Index 27.8 Const General: healthy appearing, comfortable, no acute distress, alert and awake Nutritional Appearance: well nourished Orientation/consciousness: patient oriented x3 HENMT Head: Yes normocephalic and Yes atraumatic Throat: Yes posterior oropharynx normal Eyes Eyelids: Yes eyelids normal Conjunctivae: conjunctivae normal Sclerae: sclerae normal Corneas: corneas normal Pupils: Equal, round and reactive pupils present EOM: EOMs intact bilaterally Neck Neck: Yes full ROM Resp Effort & Inspection: normal respiratory effort, able to speak in complete sentences, no audible wheezes and not labored Auscultation: clear to auscultation bilaterally Cardio Rate: regular rate Rhythm: regular rhythm GI Inspection: No distended Palpation (GI): Soft to palpation, not firm, nontender, no guarding and not rigid Auscultation: normoactive bowel sounds Skin General skin exam: no rashes or lesions noted and elasticity normal Neuro General: patient oriented x3 Cranial nerves: Yes Equal, round and reactive pupils present and Yes Bilaterally intact EOM present Cognition (Neuro): normal cognition Extrem Other: Moving all extremities well without any obvious deformities Course Reevaluation(s) Reevaluation #1: Patient will be inpatient psych admit. Time: 11:10 Reevaluation #2: 10/18/2022 1251 - physician observation continued. Patient was seen by the care team will informed me that med changes occurred, [facility] bed search initiated. Will continue to closely monitor. She is also complaining of chronic shoulder pain, scheduled Tylenol ordered. Will continue to monitor pending [facility] bed search. Reevaluation #3: 10/19/2023 Physician observation continues. Patient is being followed by care team, pending [facility]. Vital signs stable. Will continue to monitor. Time: 07:26 Additional Reevaluation(s): 1039- Physician observation continues. Patient is being followed by care team, patient currently a [facility] bed[facility]. Will continue to monitor Medications Administered Generic Name Dose Route Start Last Admin Trade Name Freq PRN Reason Stop Dose Admin Acetaminophen 650 mg 10/18/23 12:53 10/20/23 09:06 Acetaminophen 325 Mg Tablet PO 650 mg Q6H PRN Administration Pain, Moderate(Pain Scale 4-6) Amitriptyline HCl 50 mg 10/17/23 21:00 10/19/23 21:18 Amitriptyline Hcl 50 Mg Tablet PO 50 mg BEDTIME ISIAH Administration Aspirin 81 mg 10/17/23 09:00 10/20/23 09:07 Aspirin Enteric Coated 81 Mg Tablet. PO 81 mg DAILY ISIAH Administration Atorvastatin Calcium 80 mg 10/17/23 21:00 10/19/23 21:18 Atorvastatin Calcium 80 Mg Tablet PO 80 mg BEDTIME ISIAH Administration Clonazepam 0.5 mg 10/17/23 21:00 10/20/23 09:07 Clonazepam 0.5 Mg Tablet PO 0.5 mg BID ISIAH Administration Duloxetine HCl 20 mg 10/17/23 09:00 10/20/23 09:07 Duloxetine Hcl 20 Mg Capsule. PO 20 mg DAILY ISIAH Administration Gabapentin 300 mg 10/17/23 09:00 10/20/23 09:07 Gabapentin 300 Mg Capsule PO 300 mg BID ISIAH Administration Insulin Glargine 30 unit 10/17/23 09:00 10/20/23 09:08 Insulin Glargine,Hum.Rec.Anlog 100 Unit/Ml 10 Ml Vial SUBCUT 30 unit DAILY ISIAH Administration Loratadine 10 mg 10/19/23 09:00 10/20/23 09:07 Loratadine 10 Mg Tablet PO 10 mg DAILY ISIAH Administration Magnesium Oxide 400 mg 10/17/23 21:00 10/19/23 21:19 Magnesium Oxide 400 Mg Tablet PO 400 mg BEDTIME ISIAH Administration Metformin HCl 500 mg 10/18/23 21:00 10/20/23 09:15 Metformin Hcl Er 500 Mg Tab.Er.24h PO 500 mg BID ISIAH Administration Metoprolol Succinate 25 mg 10/17/23 09:00 10/20/23 09:07 Metoprolol Succinate Er 25 Mg Tab.Er.24h PO 25 mg DAILY ISIAH Administration Protocol Montelukast Sodium 10 mg 10/17/23 21:00 10/19/23 21:18 Montelukast Sodium 10 Mg Tablet PO 10 mg BEDTIME ISIAH Administration Omeprazole 20 mg 10/17/23 08:00 10/20/23 05:45 Omeprazole 20 Mg Capsule. PO 20 mg DAILY@0630 ISIAH Administration Ondansetron HCl 4 mg 10/17/23 07:18 10/17/23 15:00 Ondansetron Odt 4 Mg Tab.Rapdis TRANSLINGU 4 mg Q8H PRN Administration nausea and vomiting Pyridoxine HCl 50 mg 10/18/23 09:00 10/20/23 09:08 Pyridoxine Hcl (Vitamin B6) 50 Mg Tablet PO 50 mg DAILY ISIAH Administration Risperidone 0.5 mg 10/17/23 21:00 10/20/23 09:06 Risperidone 0.5 Mg Tablet PO 0.5 mg BID ISIAH Administration Discontinued Medications Generic Name Dose Route Start Last Admin Trade Name Juan PRN Reason Stop Dose Admin Acetaminophen/Butalbital/Caffeine 1 tab 10/17/23 07:18 10/17/23 11:32 Butalb/Acetamin/Caff 50/325/40 Tablet PO 1 tab Q6H PRN Administration Headache Clonazepam 1 mg 10/17/23 01:54 10/17/23 01:57 Clonazepam 1 Mg Tablet PO 10/17/23 01:55 1 mg ONCE ONE Administration Duloxetine HCl 60 mg 10/17/23 09:00 10/17/23 10:35 Duloxetine Hcl 60 Mg Capsule. PO 60 mg DAILY ISIAH Administration Haloperidol 2 mg 10/17/23 14:50 10/17/23 14:59 Haloperidol 1 Mg Tablet PO 2 mg BID ISIAH Administration Medical Decision Making Medical Decision Making [facility] Narrative: 68-year-old female with medical history as outlined above presenting for evaluation of which she describes as ?a widespread rash, bacteria and bugs eating my skin. Her physical exam is entirely benign including a thorough skin exam. She has no obvious rashes or lesions noted in the areas where she indicates she has them. This indicates the patient likely is having paranoid delusions. Given that she has been to multiple medical facilities for similar complaints by her report will get a care team evaluation and she will likely require a psychiatric consult. The patient is not depressed or suicidal, or labs have no significant abnormalities to explain her symptoms. The patient is CT scan of her brain approximately 2 and half months ago that not show any significant abnormalities. I do not see any reason to repeat this today. The patient's neuro exam is benign Differential Diagnosis Differential Diagnoses: The differential diagnosis associated with the presentation includes Paranoid delusions Psychosis Mood disorder Substance abuse Schizophrenia Bipolar disorder Lab Data [facility] Lab Attestation statement: I reviewed the patient's lab results. No leukocytosis. The patient has a chronic microcytic anemia consistent with her baseline over the last year. Patient has no significant electrolyte abnormalities. Her BUN is as above normal at 21 with a normal creatinine 0.75. The patient's glucose is 218 which she has a known history of diabetes and there is no evidence of DKA. 10/16/23 07:57 10/16/23 07:57 Labs: Lab Results 10/16/23 10/17/23 10/17/23 Range/Units 07:57 01:11 01:59 WBC 8.6 (4.8-10.8) X10*3/uL RBC 4.31 (4.20-5.50) X10*6/uL Hgb 10.8 L (12.0-16.0) g/dl Hct 34.0 L (37.0-47.0) % MCV 78.9 L (80.0-98.0) fL MCH 25.1 L (27.0-33.0) pg MCHC 31.8 (31.0-35.0) g/dl RDW 18.6 H (11.0-16.0) % Plt Count 222 (160-400) X10*3/uL MPV 10.8 (9.4-12.3) fL Immature Gran % (Auto) 0.2 (0.0-0.4) % Neut % (Auto) 71.5 (45-73) % Lymph % (Auto) 19.2 L (20-40) % [place] % (Auto) 7.3 (2-11) % Eos % (Auto) 1.5 (0-4) % Baso % (Auto) 0.3 (0-2) % Lymph # (Auto) 1.7 (1.2-4.9) X10*3/uL [place] # (Auto) 0.6 (0.1-1.2) X10*3/uL Eos # (Auto) 0.1 (0.0-0.4) X10*3/uL Baso # (Auto) 0.0 (0.0-0.2) X10*3/uL Abs Immat Gran (auto) 0.02 (0.00-0.03) X10*3/uL Absolute Neuts (auto) 6.2 (2.0-8.3) x10*3/uL Absolute Nucleated RBC 0.000 (0.0-0.012) X10*3/uL Nucleated RBC % (auto) 0.0 (0.0-0.2) /100WBC Sodium 140 (135-145) mmol/L Potassium 3.3 (3.3-5.1) mmol/L Chloride 105 (96-108) mmol/L Carbon Dioxide 24 (22-29) mmol/L Anion Gap 14 (12-20) BUN 21 H (9-16) mg/dL Creatinine 0.75 (0.5-1.4) mg/dL Estim Creat Clear Calc 72.0 Estimated GFR > 60 POC Glucose (60-115) mg/dL Random Glucose 218 H (60-115) mg/dL Calcium 9.3 (8.4-10.2) mg/dL Iron (30-160) mcg/dL TIBC (228-428) mcg/dL % Saturation (15-50) % Unsat Iron Binding ug/dL Total Bilirubin 0.4 (0.0-1.0) mg/dL AST 17 (5-31) U/L ALT 12 (0-31) U/L Alkaline Phosphatase 73 (39-117) U/L Total Protein 7.3 (6.5-8.0) g/dL Albumin 3.9 (3.5-5.0) g/dL Vitamin B12 (200-900) pg/mL Folate (> or = 4.0) ng/mL TSH 0.93 (0.32-4.0) uIU/mL Urine Color Yellow Urine Appearance Clear Urine pH 7.0 (5.0-9.0) Ur Specific [place] 1.010 (1.005-1.025) Urine Protein Negative (Neg-Trace) mg/dL Urine Glucose (UA) Negative (Negative) mg/dL Urine Ketones Negative (Negative) mg/dL Urine Blood Negative (Negative) Urine Nitrite Negative (Negative) Ur Leukocyte Esterase Large (3+) H (Negative) Urine RBC 0-2 (0-2) /HPF Urine WBC 6-10 H (0-5) /HPF Ur Squamous Epith Cells 0-2 (0-2) /HPF Urine Bacteria None Seen (None Seen) Hyaline Casts 0-2 (0-2) /LPF Salicylates < 5.0 L (15-30) mg/dL Urine Opiates Screen Not Detected (Not Detect) Urine Fentanyl Screen Not Detected (Not Detect) Acetaminophen < 3 (<30) mcg/mL Ur Barbiturates Screen Not Detected (Not Detect) Ur Phencyclidine Scrn Not Detected (Not Detect) Ur Amphetamines Screen Not Detected (Not Detect) U Benzodiazepines Scrn Not Detected (Not Detect) Urine Cocaine Screen Not Detected (Not Detect) U Marijuana (THC) Screen Not Detected (Not Detect) Ethyl Alcohol < 10 mg/dL Rheumatoid Factor (<15.0) IU/mL COVID-19 ([facility]) Negative (Negative) COVID-19 Clin Com See Note HIV 1&2 Ab/P24 Ag 4thGn (Nonreactive) 10/17/23 10/17/23 10/17/23 Range/Units 06:46 11:19 20:50 WBC (4.8-10.8) X10*3/uL RBC (4.20-5.50) X10*6/uL Hgb (12.0-16.0) g/dl Hct (37.0-47.0) % MCV (80.0-98.0) fL MCH (27.0-33.0) pg MCHC (31.0-35.0) g/dl RDW (11.0-16.0) % Plt Count (160-400) X10*3/uL MPV (9.4-12.3) fL Immature Gran % (Auto) (0.0-0.4) % Neut % (Auto) (45-73) % Lymph % (Auto) (20-40) % [place] % (Auto) (2-11) % Eos % (Auto) (0-4) % Baso % (Auto) (0-2) % Lymph # (Auto) (1.2-4.9) X10*3/uL [place] # (Auto) (0.1-1.2) X10*3/uL Eos # (Auto) (0.0-0.4) X10*3/uL Baso # (Auto) (0.0-0.2) X10*3/uL Abs Immat Gran (auto) (0.00-0.03) X10*3/uL Absolute Neuts (auto) (2.0-8.3) x10*3/uL Absolute Nucleated RBC (0.0-0.012) X10*3/uL Nucleated RBC % (auto) (0.0-0.2) /100WBC Sodium (135-145) mmol/L Potassium (3.3-5.1) mmol/L Chloride (96-108) mmol/L Carbon Dioxide (22-29) mmol/L Anion Gap (12-20) BUN (9-16) mg/dL Creatinine (0.5-1.4) mg/dL Estim Creat Clear Calc Estimated GFR POC Glucose 126 H 139 H (60-115) mg/dL Random Glucose (60-115) mg/dL Calcium (8.4-10.2) mg/dL Iron 48 (30-160) mcg/dL TIBC 308 (228-428) mcg/dL % Saturation 16 (15-50) % Unsat Iron Binding 260 ug/dL Total Bilirubin (0.0-1.0) mg/dL AST (5-31) U/L ALT (0-31) U/L Alkaline Phosphatase (39-117) U/L Total Protein (6.5-8.0) g/dL Albumin (3.5-5.0) g/dL Vitamin B12 444 (200-900) pg/mL Folate 9.1 (> or = 4.0) ng/mL TSH (0.32-4.0) uIU/mL Urine Color Urine Appearance Urine pH (5.0-9.0) Ur Specific [place] (1.005-1.025) Urine Protein (Neg-Trace) mg/dL Urine Glucose (UA) (Negative) mg/dL Urine Ketones (Negative) mg/dL Urine Blood (Negative) Urine Nitrite (Negative) Ur Leukocyte Esterase (Negative) Urine RBC (0-2) /HPF Urine WBC (0-5) /HPF Ur Squamous Epith Cells (0-2) /HPF Urine Bacteria (None Seen) Hyaline Casts (0-2) /LPF Salicylates (15-30) mg/dL Urine Opiates Screen (Not Detect) Urine Fentanyl Screen (Not Detect) Acetaminophen (<30) mcg/mL Ur Barbiturates Screen (Not Detect) Ur Phencyclidine Scrn (Not Detect) Ur Amphetamines Screen (Not Detect) U Benzodiazepines Scrn (Not Detect) Urine Cocaine Screen (Not Detect) U Marijuana (THC) Screen (Not Detect) Ethyl Alcohol mg/dL Rheumatoid Factor < 13.0 (<15.0) IU/mL COVID-19 ([facility]) (Negative) COVID-19 Clin Com HIV 1&2 Ab/P24 Ag 4thGn Nonreactive (Nonreactive) 10/18/23 10/18/23 10/19/23 Range/Units 08:11 11:41 07:56 WBC (4.8-10.8) X10*3/uL RBC (4.20-5.50) X10*6/uL Hgb (12.0-16.0) g/dl Hct (37.0-47.0) % MCV (80.0-98.0) fL MCH (27.0-33.0) pg MCHC (31.0-35.0) g/dl RDW (11.0-16.0) % Plt Count (160-400) X10*3/uL MPV (9.4-12.3) fL Immature Gran % (Auto) (0.0-0.4) % Neut % (Auto) (45-73) % Lymph % (Auto) (20-40) % [place] % (Auto) (2-11) % Eos % (Auto) (0-4) % Baso % (Auto) (0-2) % Lymph # (Auto) (1.2-4.9) X10*3/uL [place] # (Auto) (0.1-1.2) X10*3/uL Eos # (Auto) (0.0-0.4) X10*3/uL Baso # (Auto) (0.0-0.2) X10*3/uL Abs Immat Gran (auto) (0.00-0.03) X10*3/uL Absolute Neuts (auto) (2.0-8.3) x10*3/uL Absolute Nucleated RBC (0.0-0.012) X10*3/uL Nucleated RBC % (auto) (0.0-0.2) /100WBC Sodium (135-145) mmol/L Potassium (3.3-5.1) mmol/L Chloride (96-108) mmol/L Carbon Dioxide (22-29) mmol/L Anion Gap (12-20) BUN (9-16) mg/dL Creatinine (0.5-1.4) mg/dL Estim Creat Clear Calc Estimated GFR POC Glucose 106 119 H 134 H (60-115) mg/dL Random Glucose (60-115) mg/dL Calcium (8.4-10.2) mg/dL Iron (30-160) mcg/dL TIBC (228-428) mcg/dL % Saturation (15-50) % Unsat Iron Binding ug/dL Total Bilirubin (0.0-1.0) mg/dL AST (5-31) U/L ALT (0-31) U/L Alkaline Phosphatase (39-117) U/L Total Protein (6.5-8.0) g/dL Albumin (3.5-5.0) g/dL Vitamin B12 (200-900) pg/mL Folate (> or = 4.0) ng/mL TSH (0.32-4.0) uIU/mL Urine Color Urine Appearance Urine pH (5.0-9.0) Ur Specific [place] (1.005-1.025) Urine Protein (Neg-Trace) mg/dL Urine Glucose (UA) (Negative) mg/dL Urine Ketones (Negative) mg/dL Urine Blood (Negative) Urine Nitrite (Negative) Ur Leukocyte Esterase (Negative) Urine RBC (0-2) /HPF Urine WBC (0-5) /HPF Ur Squamous Epith Cells (0-2) /HPF Urine Bacteria (None Seen) Hyaline Casts (0-2) /LPF Salicylates (15-30) mg/dL Urine Opiates Screen (Not Detect) Urine Fentanyl Screen (Not Detect) Acetaminophen (<30) mcg/mL Ur Barbiturates Screen (Not Detect) Ur Phencyclidine Scrn (Not Detect) Ur Amphetamines Screen (Not Detect) U Benzodiazepines Scrn (Not Detect) Urine Cocaine Screen (Not Detect) U Marijuana (THC) Screen (Not Detect) Ethyl Alcohol mg/dL Rheumatoid Factor (<15.0) IU/mL COVID-19 ([facility]) (Negative) COVID-19 Clin Com HIV 1&2 Ab/P24 Ag 4thGn (Nonreactive) 10/19/23 10/19/23 10/20/23 Range/Units 16:54 21:17 07:23 WBC (4.8-10.8) X10*3/uL RBC (4.20-5.50) X10*6/uL Hgb (12.0-16.0) g/dl Hct (37.0-47.0) % MCV (80.0-98.0) fL MCH (27.0-33.0) pg MCHC (31.0-35.0) g/dl RDW (11.0-16.0) % Plt Count (160-400) X10*3/uL MPV (9.4-12.3) fL Immature Gran % (Auto) (0.0-0.4) % Neut % (Auto) (45-73) % Lymph % (Auto) (20-40) % [place] % (Auto) (2-11) % Eos % (Auto) (0-4) % Baso % (Auto) (0-2) % Lymph # (Auto) (1.2-4.9) X10*3/uL [place] # (Auto) (0.1-1.2) X10*3/uL Eos # (Auto) (0.0-0.4) X10*3/uL Baso # (Auto) (0.0-0.2) X10*3/uL Abs Immat Gran (auto) (0.00-0.03) X10*3/uL Absolute Neuts (auto) (2.0-8.3) x10*3/uL Absolute Nucleated RBC (0.0-0.012) X10*3/uL Nucleated RBC % (auto) (0.0-0.2) /100WBC Sodium (135-145) mmol/L Potassium (3.3-5.1) mmol/L Chloride (96-108) mmol/L Carbon Dioxide (22-29) mmol/L Anion Gap (12-20) BUN (9-16) mg/dL Creatinine (0.5-1.4) mg/dL Estim Creat Clear Calc Estimated GFR POC Glucose 143 H 112 102 (60-115) mg/dL Random Glucose (60-115) mg/dL Calcium (8.4-10.2) mg/dL Iron (30-160) mcg/dL TIBC (228-428) mcg/dL % Saturation (15-50) % Unsat Iron Binding ug/dL Total Bilirubin (0.0-1.0) mg/dL AST (5-31) U/L ALT (0-31) U/L Alkaline Phosphatase (39-117) U/L Total Protein (6.5-8.0) g/dL Albumin (3.5-5.0) g/dL Vitamin B12 (200-900) pg/mL Folate (> or = 4.0) ng/mL TSH (0.32-4.0) uIU/mL Urine Color Urine Appearance Urine pH (5.0-9.0) Ur Specific [place] (1.005-1.025) Urine Protein (Neg-Trace) mg/dL Urine Glucose (UA) (Negative) mg/dL Urine Ketones (Negative) mg/dL Urine Blood (Negative) Urine Nitrite (Negative) Ur Leukocyte Esterase (Negative) Urine RBC (0-2) /HPF Urine WBC (0-5) /HPF Ur Squamous Epith Cells (0-2) /HPF Urine Bacteria (None Seen) Hyaline Casts (0-2) /LPF Salicylates (15-30) mg/dL Urine Opiates Screen (Not Detect) Urine Fentanyl Screen (Not Detect) Acetaminophen (<30) mcg/mL Ur Barbiturates Screen (Not Detect) Ur Phencyclidine Scrn (Not Detect) Ur Amphetamines Screen (Not Detect) U Benzodiazepines Scrn (Not Detect) Urine Cocaine Screen (Not Detect) U Marijuana (THC) Screen (Not Detect) Ethyl Alcohol mg/dL Rheumatoid Factor (<15.0) IU/mL COVID-19 ([facility]) (Negative) COVID-19 Clin Com HIV 1&2 Ab/P24 Ag 4thGn (Nonreactive) Discharge Plan Discharge Clinical Impression: Paranoid delusion Patient Disposition: Still a Patient Prescriptions: No Action gabapentin 300 mg capsule 300 mg PO BID albuterol sulfate 2.5 mg /3 mL (0.083 %) solution for nebulization 1 vial inhalation Q4H PRN (Reason: wheezing) clonazepam [Klonopin] 1 mg tablet 1 mg PO BEDTIME Qty: 10 0RF Rx Instructions: administer 30 minutes before bedtime clonazepam 0.5 mg tablet 0.5 mg PO BID PRN (Reason: Anxiety) ckizfwwcle-jwnjrysrlmnwy-zpxn 50-325-40 mg tablet 1 tab PO Q6H PRN (Reason: Headache) tramadol 50 mg tablet 50 mg PO Q8H PRN (Reason: Pain) metformin 500 mg tablet extended release 24 hr 500 mg PO BID loratadine 10 mg tablet 10 mg PO DAILY ondansetron 4 mg tablet,disintegrating 4 mg PO Q8H PRN (Reason: nausea and vomiting) Qty: 10 0RF montelukast 10 mg tablet 10 mg PO BEDTIME (DME) lancets [OneTouch Delica Plus Lancet] 33 gauge misc See Rx Instructions .ROUTE BID Qty: 100 Rx Instructions: As directed insulin glargine [Lantus Solostar U-100 Insulin] 100 unit/mL (3 mL) insulin pen 30 unit subcut DAILY duloxetine 60 mg capsule,delayed release(DR/EC) 60 mg PO DAILY duloxetine 20 mg capsule,delayed release(DR/EC) 20 mg PO DAILY albuterol sulfate 90 mcg/actuation HFA aerosol inhaler 2 puff inhalation Q4H PRN (Reason: wheezing) zolpidem 10 mg tablet 10 mg PO BEDTIME metoprolol succinate 25 mg tablet extended release 24 hr 25 mg PO DAILY omeprazole 20 mg capsule,delayed release(DR/EC) 20 mg PO DAILY aspirin 81 mg tablet,delayed release (DR/EC) 81 mg PO DAILY amitriptyline 150 mg tablet 150 mg PO BEDTIME atorvastatin 80 mg tablet 80 mg PO BEDTIME (DME) OneTouch Ultra Test Strip See Rx Instructions .ROUTE BID Qty: 10 Rx Instructions: As directed
--- NOTE | 2023-10-17 02:36 | PC.NURSE ---
care team seeing client with stage hand
[2023-10-17 03:03] VITALS: BP 144/57; PULSE 91; RESP 18; TEMP 36.6; O2SAT 96
--- NOTE | 2023-10-17 06:44 | PC.NURSE ---
POC:[id number], previous check was 0757 with labs upon arrival 10/16/2023.
--- NOTE | 2023-10-17 07:37 | PHA.MEDREC ---
Pharmacy Consult ? Medication Reconciliation Pharmacy has completed the medication reconciliation. Med rec done based on claim history
[2023-10-17 07:42] VITALS: BP 116/74; PULSE 84; RESP 18; TEMP 36.4; O2SAT 95
--- NOTE | 2023-10-17 09:15 | PC.NURSE ---
sleeping at 0700 shift start, got up for breakfast, appeared to fall asleep while eating breakfast, easily woken, pt has attempted to ambulate to bathroom with her walker and nearly fell x 2. states she feels generally weak abd dizzy at times, Dr Friend informed and pt moved to 22h and report given
--- NOTE | 2023-10-17 09:15 | PC.NURSE ---
Transferred from POD to 22H. Brought to bathroom by tech, camera placed for safety.
[2023-10-17 09:20] VITALS: BP 162/73; PULSE 88; RESP 19; TEMP 36.7; O2SAT 94
--- NOTE | 2023-10-17 10:35 | PC.NURSE ---
Family at bedside and updated on current condition
--- NOTE | 2023-10-17 10:48 | MHC.CARE ---
CARE team attempted to call Celina (daughter [phone]) with a aerial photograph interpreter. She could not be reached and a voicemail message was left.
--- NOTE | 2023-10-17 11:11 | PM.PSYCN ---
History of Present Illness Date of Service: 10/17/2023 Chief Complaint: Itchiness all over body, sweating Reason for Consult: delusional parasitosis Requesting physician: Kishor Alanis Discussed with referring provider: Yes Sources of Information: patient interviewed, chart reviewed and crisis/core team assessment reviewed Additional Sources of Information: Rhianna- daughter, HPI Narrative: Mrs. Keating is a 68 year-old woman who self presented to [facility] ED reporting itchiness and idea that she has bugs crawling on her skin. She has been at other EDs for same concern which she reports have not helped. Pt reports itchiness started about 2 months ago- daughter who is by her side confirms this. Pt reports she has been taking benadryl with no relief. She also reports feeling more confused, increase falls. She denies SI/HI. She does report seeing some of these bugs but are not there (such as when I met with her she is showing me her hand and parasite she is seeing even after clarifying if it was just feeling it or seeing it). No previous psychiatric admissions. No hx of suicide attempts, delusions or psychosis. She does have long hx of depression. Family has concerns in terms of declining cognitive and memory. She was seen recently at neurology OP clinic with Liz Hood for evaluation of memory/cognition. Pt has also been followed by Dr. Langford for aneurism and migraines. Past Psychiatric History: Inpatient: none OP: Marshall, STRUCTURAL MANAGER at [facility] Past medication trials: cymbalta, clonazepam [facility] Medical History DJD (degenerative joint disease) COPD (chronic obstructive pulmonary disease) Bipolar disorder CTS (carpal tunnel syndrome) Hx of rheumatoid arthritis Diabetic neuropathy Urinary incontinence Aneurysm of middle cerebral artery Pulmonary nodules CHF (congestive heart failure) Palpitations Migraine History of COVID-19 Mild aortic stenosis Asthma Insulin dependent type 2 diabetes mellitus Mixed hyperlipidemia Mood disorder Essential hypertension Surgical History Hx of cataract surgery H/O: hysterectomy Hx of cholecystectomy History of carpal tunnel release Diagnostics Vital Signs (24Hr): Vital Signs - 24 hr 10/16/23 11:27 10/16/23 17:09 10/16/23 23:51 Temperature 98.0 F 98.1 F 98.3 F Pulse Rate 88 88 90 Respiratory Rate 18 18 20 Blood Pressure 161/58 H 139/70 159/72 H Pulse Oximetry 99 97 99 Oxygen Delivery Method Room Air Room Air Room Air 10/17/23 03:03 10/17/23 07:42 10/17/23 09:20 Temperature 97.8 F 97.5 F 98.1 F Pulse Rate 91 84 88 Respiratory Rate 18 18 19 Blood Pressure 144/57 H 116/74 162/73 H Pulse Oximetry 96 95 94 Oxygen Delivery Method Room Air Room Air Room Air BMI result Body Mass Index 27.8 Labs 10/16/23 07:57 10/16/23 07:57 Labs: Laboratory Results - last 48 hr 10/16/23 10/17/23 10/17/23 07:57 01:11 01:59 WBC 8.6 RBC 4.31 Hgb 10.8 L Hct 34.0 L MCV 78.9 L MCH 25.1 L MCHC 31.8 RDW 18.6 H Plt Count 222 MPV 10.8 Immature Gran % (Auto) 0.2 Neut % (Auto) 71.5 Lymph % (Auto) 19.2 L [place] % (Auto) 7.3 Eos % (Auto) 1.5 Baso % (Auto) 0.3 Lymph # (Auto) 1.7 Stephen[place] # (Auto) 0.6 Eos # (Auto) 0.1 Baso # (Auto) 0.0 Abs Immat Gran (auto) 0.02 Absolute Neuts (auto) 6.2 Absolute Nucleated RBC 0.000 Nucleated RBC % (auto) 0.0 Sodium 140 Potassium 3.3 Chloride 105 Carbon Dioxide 24 Anion Gap 14 BUN 21 H Creatinine 0.75 Estim Creat Clear Calc 72.0 Estimated GFR > 60 POC Glucose Random Glucose 218 H Calcium 9.3 Total Bilirubin 0.4 AST 17 ALT 12 Alkaline Phosphatase 73 Total Protein 7.3 Albumin 3.9 TSH 0.93 Urine Color Yellow Urine Appearance Clear Urine pH 7.0 Ur Specific [place] 1.010 Urine Protein Negative Urine Glucose (UA) Negative Urine Ketones Negative Urine Blood Negative Urine Nitrite Negative Ur Leukocyte Esterase Large (3+) H Urine RBC 0-2 Urine WBC 6-10 H Ur Squamous Epith Cells 0-2 Urine Bacteria None Seen Hyaline Casts 0-2 Salicylates < 5.0 L Urine Opiates Screen Not Detected Urine Fentanyl Screen Not Detected Acetaminophen < 3 Ur Barbiturates Screen Not Detected Ur Phencyclidine Scrn Not Detected Ur Amphetamines Screen Not Detected U Benzodiazepines Scrn Not Detected Urine Cocaine Screen Not Detected U Marijuana (THC) Screen Not Detected Ethyl Alcohol < 10 COVID-19 ([facility]) Negative COVID-19 Clin Com See Note 10/17/23 06:46 WBC RBC Hgb Hct MCV MCH MCHC RDW Plt Count MPV Immature Gran % (Auto) Neut % (Auto) Lymph % (Auto) Stephen[place] % (Auto) Eos % (Auto) Baso % (Auto) Lymph # (Auto) [place] # (Auto) Eos # (Auto) Baso # (Auto) Abs Immat Gran (auto) Absolute Neuts (auto) Absolute Nucleated RBC Nucleated RBC % (auto) Sodium Potassium Chloride Carbon Dioxide Anion Gap BUN Creatinine Estim Creat Clear Calc Estimated GFR POC Glucose 126 H Random Glucose Calcium Total Bilirubin AST ALT Alkaline Phosphatase Total Protein Albumin TSH Urine Color Urine Appearance Urine pH Ur Specific [place] Urine Protein Urine Glucose (UA) Urine Ketones Urine Blood Urine Nitrite Ur Leukocyte Esterase Urine RBC Urine WBC Ur Squamous Epith Cells Urine Bacteria Hyaline Casts Salicylates Urine Opiates Screen Urine Fentanyl Screen Acetaminophen Ur Barbiturates Screen Ur Phencyclidine Scrn Ur Amphetamines Screen U Benzodiazepines Scrn Urine Cocaine Screen U Marijuana (THC) Screen Ethyl Alcohol COVID-19 ([facility]) COVID-19 Clin Com Mental Status Exam Mental Status Exam Narrative: Appearance: wearing hospital gown, fair hygiene, anxious Behavior: cooperative Psychomotor: no agitation or retardation noted, some tapping of feet while lying in bed. Speech: clear, normal rate/rhythm/volume, spontaneous TP: mostly linear TC: concern of not feeling well, I'm losing my mind, I don't feel well, help me! Mood: not well' Affect: anxious SI: denies HI: denies VH/AH: seeing bugs Delusions: thinks she is infested with parasites or bacteria going through her veins and eating her skin Insight/judgment: fair x 2. memory/cog: alert, oriented x 3. pending MOCA, ACL assessment. Medications Medications Current Medications Acetaminophen/Butalbital/Caffeine (Butalb/Acetamin/Caff 50/325/40 Tablet) 1 tab PO Q6H PRN PRN Reason: Headache Albuterol Sulfate (Albuterol Sulfate (0.083%) 2.5 Mg/3 Ml Vial.Neb) 2.5 mg INHALE Q4H PRN PRN Reason: wheezing Albuterol Sulfate (Albuterol Sulfate 90 Mcg 8 Gm Inhaler) 2 puff INHALE Q4H PRN PRN Reason: wheezing Amitriptyline HCl (Amitriptyline Hcl 50 Mg Tablet) 150 mg PO BEDTIME [facility] Aspirin (Aspirin Enteric Coated 81 Mg Tablet.) 81 mg PO DAILY [facility] Last Admin: 10/17/23 10:33 Dose: 81 mg Atorvastatin Calcium (Atorvastatin Calcium 80 Mg Tablet) 80 mg PO BEDTIME [facility] Clonazepam (Clonazepam 0.5 Mg Tablet) 0.5 mg PO BID PRN PRN Reason: Anxiety Clonazepam (Clonazepam 1 Mg Tablet) 1 mg PO BEDTIME [facility] Duloxetine HCl (Duloxetine Hcl 20 Mg Capsule.) 20 mg PO DAILY [facility] Last Admin: 10/17/23 10:35 Dose: 20 mg Duloxetine HCl (Duloxetine Hcl 60 Mg Capsule.) 60 mg PO DAILY [facility] Last Admin: 10/17/23 10:35 Dose: 60 mg Gabapentin (Gabapentin 300 Mg Capsule) 300 mg PO BID [facility] Last Admin: 10/17/23 10:33 Dose: 300 mg Insulin Glargine (Insulin Glargine,Hum.Rec.Anlog 100 Unit/Ml 10 Ml Vial) 30 unit SUBCUT DAILY [facility] Last Admin: 10/17/23 10:34 Dose: 30 unit Metoprolol Succinate (Metoprolol Succinate Er 25 Mg Tab.Er.24h) 25 mg PO DAILY [facility]; Protocol Last Admin: 10/17/23 10:40 Dose: 25 mg Montelukast Sodium (Montelukast Sodium 10 Mg Tablet) 10 mg PO BEDTIME [facility] Omeprazole (Omeprazole 20 Mg Capsule.) 20 mg PO DAILY@0630 [facility] Last Admin: 10/17/23 10:40 Dose: 20 mg Ondansetron HCl (Ondansetron Odt 4 Mg Tab.Rapdis) 4 mg TRANSLINGU Q8H PRN PRN Reason: nausea and vomiting Zolpidem Tartrate (Zolpidem Tartrate 5 Mg Tablet) 10 mg PO BEDTIME [facility] Allergies Allergies Allergy/AdvReac Type Severity Reaction Status Date / Time Penicillins Allergy Mild Swelling Verified 09/10/23 04:07 Assessment & Plan Assessment & Plan (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 Keating is a 68 year-old woman who self presented with family due to reports of itchiness, allover which she interprets as having bugs/parasities or bacteria running through her veins. She has reported seeing these bugs, and points at them while she talks with this bond underwriter. No prior hx of psychosis or delusions. Family by her side and daughter provided collateral information. Delusional parasitosis is a rare form of delusions/with hallucination that in some instances can have medical underlying cause (the report of itching may be accurate but the explanation and conviction that it is cause by bugs or parasites and the report of seeing them is a perceptual disturbance in that others can't see them). Some common causes of underlying medical conditions that can present with delusional parasitosis include B12/folate deficiency, neuropathy, hyperthyroidism, HIV, syphilis. Medications can also cause it including meds such as topamax, ciprofloxacin, amantadine, steroids, ketoconazole, phenelzine (she is not on any of these currently or recently). low doses of antipsychotics can also help. There are several concerns about polypharmacy in her current regimen--> including 2 antidepressants- cymbalta, amitriptyline, recently addition to tramadol (caution with several serotonergic agents). She also has clonazepam, ambien (family reports multiple calls at night that pt has no recolection- concern in terms of parasomnia with ambien). Pt has been taking benadryl for itchiness with no effect--> will avoid at this point antihistamine medications due to concern of worsening cognition or confusion (which family also reporting). PLAN 1. pt needs inpatient psychiatric level of care for stabilization, medication management. Pt and family in agreement with plan. 2. add labs including b12/folate/iron studies, RPR, HIV r/o other causes of her presentation. TSH results came back normal. 3. will d/c ambien due to concern of parasomnia and falls at night. will continue clonazepam 0.5mg po BID--> monitor for oversedation. will not add higher doses of benzodiazepine at this time. Will lower dose of cymbalta to 20mg po daily. will lower amitriptyline to 50mg po qhs. 4. will add low dose risperidone 0.5mg po BID Total time managing care of this patient today ____ minutes.
--- NOTE | 2023-10-17 14:49 | PC.NURSE ---
Ate small amount for lunch, denies pain or discomfort, camera in place for safety
--- NOTE | 2023-10-17 16:40 | PC.NURSE ---
Resting quietly, breathing even and unlabored, camera remains in place for safety
--- NOTE | 2023-10-17 18:17 | PC.NURSE ---
Report given to overflow. Patient resting in bed, breathing even and unlabored
[2023-10-17 18:18] VITALS: BP 145/78; PULSE 78; RESP 18; TEMP 37.1; O2SAT 98
[2023-10-17 19:34] VITALS: BP 118/58; PULSE 64; RESP 16; TEMP 36.3; O2SAT 95
--- NOTE | 2023-10-17 19:43 | PC.NURSE ---
Assumed care for pt. Pt sleeping at the bedside. No apparent distress noted. Breaths are even regular and unlabored. Purewick in place. Call godfrey placed within reach. Bed alarm is on. Video monitor at bedside. Monitoring is ongoing.
--- NOTE | 2023-10-18 03:44 | PC.NURSE ---
Pt sleeping at the bedside. No apparent distress noted. Breaths are even regular and unlabored with equal chest rises. Video monitoring in place. Will continue to monitor.
[2023-10-18 06:21] VITALS: BP 135/67; PULSE 73; RESP 16; TEMP 37.1; O2SAT 96
--- NOTE | 2023-10-18 07:57 | MHC.CARE ---
[facility] conducted, unfortunately no beds are available at this time. RAD Team will continue bedsearch tomorrow (10/19) if deemed necessary
--- NOTE | 2023-10-18 09:00 | PC.NURSE ---
this RN resumed care of pt at this time. pt resting comfortably eating breakfast in no apparent distress. medication administered per provider order. no sob/wob noted. respirations even and unlabored. bed alarm/camera in place for safety precautions. call godfrey placed within reach.
--- NOTE | 2023-10-18 09:50 | PC.NURSE ---
pt spoke w/ engineer steam from [facility] - plan of care remains the same - inpatient [facility] bed search still in place at this time.
--- NOTE | 2023-10-18 13:03 | PC.NURSE ---
pt c/o 07/22 right shoulder pain at this time - prn Tylenol administered per provider order. pt resting comfortably eating lunch at this time. respirations remain even and unlabored. bed alarm/camera in place for safety precautions. call godfrey placed within reach.
--- NOTE | 2023-10-18 14:07 | PC.NURSE ---
pt verbalizing pain level stays the same despite medication administration. hot packs applied to right shoulder - pt repositioned to comfort. call godfrey placed within reach.
[2023-10-18 14:09] VITALS: BP 108/57; PULSE 66; RESP 18; TEMP 36.6; O2SAT 94
--- NOTE | 2023-10-18 18:20 | PC.NURSE ---
pt incontinent of urine despite purewick placement. pt cleaned/fresh linen applied. pt changed into fresh/clean hospital attire. new purewick placed. pt c/o headache at this time - will administer prn tylenol when able. camera/bed alarm turned on for safety precautions. call godfrey placed within reach.
--- NOTE | 2023-10-18 19:21 | PC.NURSE ---
this rn assumed care of pt. pt resting in bed comfortably at this time watching tv, no acute distress noted. camera in place for pt safety.
[2023-10-18 19:34] VITALS: BP 118/57; PULSE 78; RESP 20; TEMP 36.7; O2SAT 93
--- NOTE | 2023-10-18 20:59 | PC.NURSE ---
pt medicated per dec. pt tolerates 2 pills at a time with juice.
[2023-10-19 06:00] VITALS: BP 137/67; PULSE 71; RESP 15; TEMP 36.2; O2SAT 94
--- NOTE | 2023-10-19 06:37 | PC.NURSE ---
Acquired care at 2300. Pt is in bed. no signs of distress. Calm and cooperative.Skin care provided.
--- NOTE | 2023-10-19 07:53 | MHC.CARE ---
[facility] conducted, unfortunately no beds are available at this time. RAD Team will continue bedsearch tomorrow (10/20) if deemed necessary
--- NOTE | 2023-10-19 09:32 | MHC.EDTECH ---
Patient ambulated to bathroom, with one assist, showed and AM care done with supervision of licensed chemical spray technician, bed change and lined clean.
[2023-10-19 14:39] VITALS: BP 135/53; PULSE 74; RESP 12; TEMP 36.2; O2SAT 96
[2023-10-19 21:15] VITALS: BP 144/61; PULSE 75; RESP 18; TEMP 36.4; O2SAT 97
--- NOTE | 2023-10-20 | MHC.EDTECH ---
PATIENT UP WAS ASSISTED TO WALK TO BATHROOM ,VOID ,PATIENT WAS INCONTINENT OF URINE ,CARE GIVEN AND BACK TO BED .
--- NOTE | 2023-10-20 00:54 | PC.NURSE ---
Patient assisted to bathroom with 1 assist and walker without difficulty. Patient is calm and cooperative with staff at this time. No s/s of distress noted.
--- NOTE | 2023-10-20 04:00 | PC.NURSE ---
This junior technical writer assumed care of this Pt at 0300. Pt appears to be sleeping, no apparent distress, equal, non labored respirations, plan of care ongoing. Camera in place for safety.
[2023-10-20 05:28] VITALS: BP 137/63; PULSE 80; RESP 16; TEMP 36.3; O2SAT 96
--- NOTE | 2023-10-20 05:33 | MHC.EDTECH ---
Patient Slept most of the night , awake now was assisted to walk to bathroom ,void and back to bed ,vitals taken ,no apparent distress noted at this time ,tele sitter camrea on and bed alarm ,Call godfrey within Pt reach .
[2023-10-20 09:00] VITALS: BP 140/61; PULSE 72; RESP 16
--- NOTE | 2023-10-20 09:00 | PC.NURSE ---
pt ate whole breakfast well. given tylenol for h/a w/improvement. CARE team saw pt this am. [facility] bed search remains in place. no respiratory distress. denies halluc/delusions/si/hi.
--- NOTE | 2023-10-20 11:40 | PC.NURSE ---
pt ate at side of bed well. video camera monitor remains on. awaiting verification for kyreeet
--- NOTE | 2023-10-20 14:01 | PC.NURSE ---
rn report given to belia rn upstairs.
[2023-10-20 14:03] LABS: RPR Rapid Plasma Reagin NON-REACTIVE (NON-REACTIVE)
--- NOTE | 2023-10-20 14:13 | PC.NURSE ---
pt woke up. pt given new clean green gown. offered bathroom. offered fiorecet. medicating per mar
[2023-10-20 14:38] VITALS: BP 162/61; PULSE 65; RESP 16; TEMP 36.2; O2SAT 97
[2023-10-20 15:30] VITALS: BP 137/63; PULSE 64; RESP 16; TEMP 36.6; O2SAT 97
--- NOTE | 2023-10-20 16:14 | P.HPPS_ITS ---
HPI Date of Service: 10/20/23 Chief Complaint: Delusional parasitosis Sources of Information: patient interviewed, chart reviewed and crisis/core team assessment reviewed HPI Subjective Notes: Haynes Warning (given and shows understanding) and Conditional Voluntary Narrative: Mrs. Keating is a 68 year-old woman who self presented to [facility] [place] [facility] reporting itchiness and idea that she has bugs crawling on her skin. She has been at other EDs for same concern which she reports have not helped. Pt reports itchiness started about 2 months ago- daughter who is by her side confirms this. Pt reports she has been taking benadryl with no relief. She also reports feeling more confused, increase falls. She denies SI/HI. She does report seeing some of these bugs but are not there (such as when I met with her she is showing me her hand and parasite she is seeing even after clarifying if it was just feeling it or seeing it). While pt was in the ED, she was started on risperidone which was titrated to 1mg po BID. Also, since pt was on 2 antidepressants amitrityline and cymbalta and then addition of tramadol, there was concern of serotonergic overload. Pt was taper off cymbalta. Amitrityline was decreased to 100mg po qhs. Also, due to concerns of frequent falls, mostly at night that pt reports not remembering, ambien was discontinued. Clonazepam was continued on lower dose 0.5mg po BID. On the unit, pt reports itchiness has almost resolved. She denies seeing bugs or parasites crawling on her skin. She denies SI/HI. She reports feeling depressed. She reports fair sleep. She also presents as tearful reporting she misses her adult children. She has been having migraines. No overt delusional content noted or reported. No side effects with current medications. No previous psychiatric admissions. No hx of suicide attempts, delusions or psychosis. She does have long hx of depression. Family has concerns in terms of declining cognitive and memory. She was seen recently at neurology OP clinic with Liz Hood for evaluation of memory/cognition. Pt has also been followed by Dr. Langford for aneurism and migraines. 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 [facility] Past medication trials: cymbalta, clonazepam Medical Evaluation Reviewed: Yes [facility] Medical History DJD (degenerative joint disease) COPD (chronic obstructive pulmonary disease) Bipolar disorder CTS (carpal tunnel syndrome) Hx of rheumatoid arthritis Diabetic neuropathy Urinary incontinence Aneurysm of middle cerebral artery Pulmonary nodules CHF (congestive heart failure) Palpitations Migraine History of COVID-19 Mild aortic stenosis Asthma Insulin dependent type 2 diabetes mellitus Mixed hyperlipidemia Mood disorder Essential hypertension Surgical History Hx of cataract surgery H/O: hysterectomy Hx of cholecystectomy History of carpal tunnel release Social History: Lives alone. Substance History: None Diagnostics Vital Signs (24Hr): Vital Signs - 24 hr 10/19/23 21:15 10/20/23 05:28 10/20/23 09:00 Temperature 97.5 F 97.4 F Pulse Rate 75 80 72 Respiratory Rate 18 16 16 Blood Pressure 144/61 H 137/63 140/61 H Pulse Oximetry 97 96 Oxygen Delivery Method Room Air Room Air 10/20/23 14:38 Temperature 97.1 F Pulse Rate 65 Respiratory Rate 16 Blood Pressure 162/61 H Pulse Oximetry 97 Oxygen Delivery Method Room Air BMI result Body Mass Index 27.8 Labs 10/16/23 07:57 10/16/23 07:57 Labs: Laboratory Results - last 48 hr 10/17/23 10/19/23 10/19/23 11:19 07:56 16:54 POC Glucose 134 H 143 H RPR NON-REACTIVE 10/19/23 10/20/23 10/20/23 21:17 07:23 12:02 POC Glucose 112 102 151 H RPR Meds/Allergies Meds Home Medications Medication Instructions Recorded Confirmed Type albuterol sulfate 90 mcg/actuation 2 puff inhalation Q4H PRN wheezing 09/27/22 10/17/23 History aerosol inhaler amitriptyline 150 mg tablet 150 mg PO BEDTIME 09/27/22 10/17/23 History aspirin 81 mg tablet,delayed 81 mg PO DAILY 09/27/22 10/17/23 History release atorvastatin 80 mg tablet 80 mg PO BEDTIME 09/27/22 10/17/23 History blood sugar diagnostic (OneTouch #10 ea 09/27/22 10/20/23 History Ultra Test strips) duloxetine 20 mg capsule,delayed 20 mg PO DAILY 09/27/22 10/17/23 History release duloxetine 60 mg capsule,delayed 60 mg PO DAILY 09/27/22 10/17/23 History release insulin glargine 100 unit/mL (3 30 unit subcut DAILY 09/27/22 10/17/23 History mL) subcutaneous pen (Lantus Solostar U-100 Insulin) lancets 33 gauge (Leticiauch Gallo #100 ea 09/27/22 10/20/23 History Plus Lancet) metoprolol succinate 25 mg 25 mg PO DAILY 09/27/22 10/17/23 History tablet,extended release 24 hr montelukast 10 mg tablet 10 mg PO BEDTIME 09/27/22 10/17/23 History omeprazole 20 mg capsule,delayed 20 mg PO DAILY 09/27/22 10/17/23 History release zolpidem 10 mg tablet 10 mg PO BEDTIME 09/27/22 10/17/23 History gabapentin 300 mg capsule 300 mg PO BID 11/25/22 10/17/23 History albuterol sulfate 2.5 mg/3 mL 1 vial inhalation Q4H PRN wheezing 12/16/22 10/17/23 History (0.083 %) solution for nebulization [id number] 1 tab PO Q6H PRN Headache 10/17/23 10/17/23 History 50 mg-325 mg-40 mg tablet clonazepam 0.5 mg tablet 0.5 mg PO BID PRN Anxiety 10/17/23 10/17/23 History loratadine 10 mg tablet 10 mg PO DAILY 10/17/23 10/17/23 History metformin 500 mg tablet,extended 500 mg PO BID 10/17/23 10/17/23 History release 24 hr tramadol 50 mg tablet 50 mg PO Q8H PRN Pain 10/17/23 10/17/23 History Allergies Allergies Allergy/AdvReac Type Severity Reaction Status Date / Time Penicillins Allergy Mild Swelling Verified 09/10/23 04:07 Mental Status Exam Mental Status Exam Narrative: Appearance: wearing hospital gown, fair hygiene, anxious Behavior: cooperative Psychomotor: no agitation or retardation noted, some tapping of feet while lying in bed. Speech: clear, normal rate/rhythm/volume, spontaneous TP: mostly linear TC:feeling a little bit better in terms of itchiness and bugs crawling on skin. having migraines. Mood: not well' Affect: anxious SI: denies HI: denies VH/AH: denies seeing bugs today Delusions: thinks she is infested with parasites or bacteria going through her veins and eating her skin Insight/judgment: fair x 2. memory/cog: alert, oriented x 3. pending MOCA, ACL assessment. Assessment & Plan Assessment & Plan (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 Keating is a 68 year-old woman who self presented with family due to reports of itchiness, allover which she interprets as having bugs/parasities or bacteria running through her veins. She has reported seeing these bugs, and points at them while she talks with this business writer. No prior hx of psychosis or delusions. Family by her side and daughter provided collateral information. Delusional parasitosis is a rare form of delusions/with hallucination that in some instances can have medical underlying cause (the report of itching may be accurate but the explanation and conviction that it is cause by bugs or parasites and the report of seeing them is a perceptual disturbance in that others can't see them). Some common causes of underlying medical conditions that can present with delusional parasitosis include B12/folate deficiency, neuropathy, hyperthyroidism, HIV, syphilis. Medications can also cause it including meds such as topamax, ciprofloxacin, amantadine, steroids, ketoconazole, phenelzine (she is not on any of these currently or recently). low doses of antipsychotics can also help. There are several concerns about polypharmacy in her current regimen--> including 2 antidepressants- cymbalta, amitriptyline, recently addition to tramadol (caution with several serotonergic agents). She also has clonazepam, ambien (family reports multiple calls at night that pt has no recollection- concern in terms of parasomnia with ambien). Pt has been taking benadryl for itchiness with no effect--> will avoid at this point antihistamine medications due to concern of worsening cognition or confusion (which family also reporting). PLAN 1. Admit to S1, CV, 15 minutes checks for safety. 2. Continue risperidone 1mg po BID. 3. will complete MOCA and ACL 4. Aftercare planning. Patient educated on: diagnosis and medication risk/benefits Reason for continued inpatient stay Substantial Risk for: inability to function Statement Statement: I have reviewed the history and physical and performed a pertinent examination on my patient. No changes have occurred unless specified. If the History and Physical was not performed prior to admission, the Hospitalist's service will be consulted for completing the admission physical. Time Spent With Patient Time: Total time managing care of this patient today ____ minutes.
[2023-10-20 18:00] VITALS: BP 135/63; PULSE 72; RESP 16; TEMP 35.9; O2SAT 99
--- NOTE | 2023-10-20 18:48 | PC.NURSE ---
Pt. arrived on unit via at 15:25 escorted by this abstract writer. Pt.'s admission conducted using technology methodology consultant. Pt. was living alone in an apartment which she believed was infested with bugs, which were also infesting her skin, despite no evidence of infestation. She also believed that intruders were breaking in. Pt. topped eating and sleeping due to being disturbed by her delusions. Pt. denies feeling any bugs on her skin at the time of admission. She is alert and oriented X 3. She does not understand why she was brought to the hospital. Pt. calm, pleasant, and appropriate through admission process. She denies any anxiety/depression/SI/HI or perceptual disturbances. 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 Pt. ambulates with a walker and stand by assist. Message left for daughter/HCP to call hospital for update.
[2023-10-20] MEDS: Amitriptyline HCl 50 MG TABLET 100 MG PO (21:08)
[2023-10-20] MEDS: metFORMIN HCl ER 500 MG TAB.ER.24H PO (21:09)
[2023-10-20] MEDS: Magnesium Oxide 400 MG TABLET PO (21:09)
[2023-10-20] MEDS: Atorvastatin Calcium 80 MG TABLET PO (21:09)
[2023-10-20] MEDS: Gabapentin 300 MG CAPSULE PO (21:09)
[2023-10-20] MEDS: Montelukast Sodium 10 MG TABLET PO (21:10)
[2023-10-20] MEDS: risperiDONE 1 MG TABLET PO (21:10)
[2023-10-20] MEDS: clonazePAM 0.5 MG TABLET PO (21:10)
[2023-10-20 22:14] LABS: Glucose, Whole Blood 129 mg/dL (60-115)
--- NOTE | 2023-10-21 | ECG_ITS ---
Test Reason : left side weakness Blood Pressure : / mmHG Vent. Rate : 064 BPM Atrial Rate : 064 BPM P-R Int : 172 ms QRS Dur : 076 ms QT Int : 394 ms P-R-T Axes : 053 004 026 degrees QTc Int : 406 ms Normal sinus rhythm Normal ECG When compared with ECG of 17-OCT-2023 09:44, No significant change was found Referred By: Suze Gannon Electronically Signed By:ALISHA JOLLY MD
[2023-10-21] MEDS: Omeprazole 20 MG CAPSULE.DR PO (06:41)
[2023-10-21 06:44] LABS: Glucose, Whole Blood 66 mg/dL (60-115)
[2023-10-21 07:17] LABS: Glucose, Whole Blood 136 mg/dL (60-115)
[2023-10-21 09:00] VITALS: BP 110/56; PULSE 72; RESP 16; TEMP 36.2; O2SAT 97
[2023-10-21] MEDS: Gabapentin 300 MG CAPSULE PO ×2 (09:39→21:05)
[2023-10-21] MEDS: Aspirin Enteric Coated 81 MG TABLET.DR PO (09:39)
[2023-10-21] MEDS: clonazePAM 0.5 MG TABLET PO ×2 (09:40→21:05)
[2023-10-21] MEDS: Metoprolol Succinate ER 25 MG TAB.ER.24H PO (09:40)
[2023-10-21] MEDS: risperiDONE 1 MG TABLET PO ×2 (09:40→21:05)
[2023-10-21] MEDS: Insulin Glargine,Hum.rec.anlog 100 UNIT/ML 10 ML VIAL 30 UNIT SUBCUT (09:40)
[2023-10-21] MEDS: Loratadine 10 MG TABLET PO (09:40)
[2023-10-21] MEDS: Pyridoxine HCl (Vitamin B6) 50 MG TABLET PO (09:40)
[2023-10-21] MEDS: metFORMIN HCl ER 500 MG TAB.ER.24H PO ×2 (09:40→21:05)
[2023-10-21] MEDS: Butalb/Acetamin/Caff 50/325/40 TABLET 1 TAB PO ×2 (09:49→22:55)
[2023-10-21] MEDS: Lactulose 20 GM/30 ML SOLUTION PO (12:57)
--- NOTE | 2023-10-21 15:48 | HO.PSYCHPN ---
Subjective Subjective Date of Service: 10/21/23 Reason For Visit: Delusional parasitosis Subjective Notes: Conditional Voluntary Interim History: Pt continues to report that she does not see parasites or bugs crawling on her skin. She denies SI/HI. She is earful stating she misses her adult children. Her daughter came to see. We discussed treatment including pending MOCA and ACL as she is more stable. Pt continues to have moderate migraines. Taking medications with good effect. Diagnostics Vital Signs (24Hr): Vital Signs - 24 hr 10/20/23 18:00 10/21/23 09:00 Temperature 96.7 F L 97.1 F Pulse Rate 72 72 Respiratory Rate 16 16 Blood Pressure 135/63 110/56 L Pulse Oximetry 99 97 Oxygen Delivery Method Room Air Room Air BMI result Body Mass Index 27.8 Labs 10/16/23 07:57 10/16/23 07:57 Labs: Laboratory Results - last 48 hr 10/17/23 10/19/23 10/19/23 11:19 16:54 21:17 POC Glucose 143 H 112 RPR Titer TNP RPR NON-REACTIVE 10/20/23 10/20/23 10/20/23 07:23 12:02 22:07 POC Glucose 102 151 H 129 H RPR Titer RPR 10/21/23 10/21/23 06:22 07:11 POC Glucose 66 136 H RPR Titer RPR Medications Medications Current Medications Acetaminophen/Butalbital/Caffeine (Butalb/Acetamin/Caff 50/325/40 Tablet) 1 tab PO Q6H PRN PRN Reason: migraine Last Admin: 10/21/23 09:49 Dose: 1 tab Al Hydroxide/Mg Hydroxide (Magnesium Hydrox/Alum Hydrox 30 Ml Oral.Susp) 30 ml PO Q6H PRN PRN Reason: Heartburn/Nausea Albuterol Sulfate (Albuterol Sulfate (0.083%) 2.5 Mg/3 Ml Vial.Neb) 2.5 mg INHALE Q4H PRN PRN Reason: wheezing Albuterol Sulfate (Albuterol Sulfate 90 Mcg 8 Gm Inhaler) 2 puff INHALE Q4H PRN PRN Reason: wheezing Amitriptyline HCl (Amitriptyline Hcl 50 Mg Tablet) 100 mg PO BEDTIME [facility] Last Admin: 10/20/23 21:08 Dose: 100 mg Aspirin (Aspirin Enteric Coated 81 Mg Tablet.) 81 mg PO DAILY [facility] Last Admin: 10/21/23 09:39 Dose: 81 mg Atorvastatin Calcium (Atorvastatin Calcium 80 Mg Tablet) 80 mg PO BEDTIME [facility] Last Admin: 10/20/23 21:09 Dose: 80 mg Clonazepam (Clonazepam 0.5 Mg Tablet) 0.5 mg PO BID [facility] Last Admin: 10/21/23 09:40 Dose: 0.5 mg Gabapentin (Gabapentin 300 Mg Capsule) 300 mg PO BID [facility] Last Admin: 10/21/23 09:39 Dose: 300 mg Insulin Glargine (Insulin Glargine,Hum.Rec.Anlog 100 Unit/Ml 10 Ml Vial) 30 unit SUBCUT DAILY [facility] Last Admin: 10/21/23 09:40 Dose: 30 unit Loratadine (Loratadine 10 Mg Tablet) 10 mg PO DAILY [facility] Last Admin: 10/21/23 09:40 Dose: 10 mg Magnesium Hydroxide (Milk Of Magnesia 30 Ml Oral.Susp) 30 ml PO DAILY PRN PRN Reason: Constipation Magnesium Oxide (Magnesium Oxide 400 Mg Tablet) 400 mg PO BEDTIME [facility] Last Admin: 10/20/23 21:09 Dose: 400 mg Metformin HCl (Metformin Hcl Er 500 Mg Tab.Er.24h) 500 mg PO BID [facility] Last Admin: 10/21/23 09:40 Dose: 500 mg Metoprolol Succinate (Metoprolol Succinate Er 25 Mg Tab.Er.24h) 25 mg PO DAILY [facility]; Protocol Last Admin: 10/21/23 09:40 Dose: 25 mg Montelukast Sodium (Montelukast Sodium 10 Mg Tablet) 10 mg PO BEDTIME [facility] Last Admin: 10/20/23 21:10 Dose: 10 mg Omeprazole (Omeprazole 20 Mg Capsule.) 20 mg PO DAILY@0630 [facility] Last Admin: 10/21/23 06:41 Dose: 20 mg Ondansetron HCl (Ondansetron Odt 4 Mg Tab.Rapdis) 4 mg TRANSLINGU Q8H PRN PRN Reason: nausea and vomiting Last Admin: 10/17/23 15:00 Dose: 4 mg Pyridoxine HCl (Pyridoxine Hcl (Vitamin B6) 50 Mg Tablet) 50 mg PO DAILY [facility] Last Admin: 10/21/23 09:40 Dose: 50 mg Risperidone (Risperidone 1 Mg Tablet) 1 mg PO BID [facility] Last Admin: 10/21/23 09:40 Dose: 1 mg Senna/Docusate Sodium (Sennosides/Docusate Sodium Tablet) 1 tab PO BID [facility] Allergies Allergies Allergy/AdvReac Type Severity Reaction Status Date / Time Penicillins Allergy Mild Swelling Verified 09/10/23 04:07 Assessment & Plan Assessment & Plan (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 Keating is a 68 year-old woman who self presented with family due to reports of itchiness, allover which she interprets as having bugs/parasities or bacteria running through her veins. She has reported seeing these bugs, and points at them while she talks with this selling underwriter. No prior hx of psychosis or delusions. Family by her side and daughter provided collateral information. Delusional parasitosis is a rare form of delusions/with hallucination that in some instances can have medical underlying cause (the report of itching may be accurate but the explanation and conviction that it is cause by bugs or parasites and the report of seeing them is a perceptual disturbance in that others can't see them). Some common causes of underlying medical conditions that can present with delusional parasitosis include B12/folate deficiency, neuropathy, hyperthyroidism, HIV, syphilis. Medications can also cause it including meds such as topamax, ciprofloxacin, amantadine, steroids, ketoconazole, phenelzine (she is not on any of these currently or recently). low doses of antipsychotics can also help. There are several concerns about polypharmacy in her current regimen--> including 2 antidepressants- cymbalta, amitriptyline, recently addition to tramadol (caution with several serotonergic agents). She also has clonazepam, ambien (family reports multiple calls at night that pt has no recolection- concern in terms of parasomnia with ambien). Pt has been taking benadryl for itchiness with no effect--> will avoid at this point antihistamine medications due to concern of worsening cognition or confusion (which family also reporting). PLAN 10/21- less delusions of parasitosis. continue risperidone. pending MOCA and ACL. Reason for continued inpatient stay Substantial Risk for: inability to function Time Spent With Patient Time: Total time managing care of this patient today ____ minutes.
[2023-10-21 18:38] VITALS: BP 126/64; PULSE 79; RESP 18; TEMP 35.9; O2SAT 96
[2023-10-21] MEDS: Amitriptyline HCl 50 MG TABLET 100 MG PO (21:04)
[2023-10-21] MEDS: Montelukast Sodium 10 MG TABLET PO (21:05)
[2023-10-21] MEDS: Magnesium Oxide 400 MG TABLET PO (21:05)
[2023-10-21] MEDS: Atorvastatin Calcium 80 MG TABLET PO (21:05)
[2023-10-21] MEDS: Sennosides/Docusate Sodium TABLET 1 TAB PO (21:05)
[2023-10-22] MEDS: Omeprazole 20 MG CAPSULE.DR PO (05:56)
[2023-10-22 06:16] LABS: Glucose, Whole Blood 87 mg/dL (60-115)
[2023-10-22 08:00] VITALS: BP 158/68; PULSE 76; RESP 18; TEMP 36.4; O2SAT 97
[2023-10-22] MEDS: Loratadine 10 MG TABLET PO (10:09)
[2023-10-22] MEDS: Pyridoxine HCl (Vitamin B6) 50 MG TABLET PO (10:09)
[2023-10-22] MEDS: Aspirin Enteric Coated 81 MG TABLET.DR PO (10:09)
[2023-10-22] MEDS: risperiDONE 1 MG TABLET PO ×2 (10:10→20:55)
[2023-10-22] MEDS: Gabapentin 300 MG CAPSULE PO ×2 (10:10→20:55)
[2023-10-22] MEDS: metFORMIN HCl ER 500 MG TAB.ER.24H PO ×2 (10:10→20:56)
[2023-10-22] MEDS: clonazePAM 0.5 MG TABLET PO ×2 (10:10→20:55)
[2023-10-22] MEDS: Metoprolol Succinate ER 25 MG TAB.ER.24H PO (10:10)
[2023-10-22] MEDS: Sennosides/Docusate Sodium TABLET 1 TAB PO ×2 (10:11→20:55)
[2023-10-22] MEDS: Albuterol Sulfate 90 MCG 8 GM INHALER 2 PUFF INHALE (10:13)
[2023-10-22] MEDS: Insulin Glargine,Hum.rec.anlog 100 UNIT/ML 10 ML VIAL 30 UNIT SUBCUT (10:34)
[2023-10-22 10:35] LABS: Glucose, Whole Blood 210 mg/dL (60-115)
[2023-10-22] MEDS: Insulin Lispro 100 UNIT/ML 3 ML VIAL SUBCUT (11:39)
[2023-10-22 16:17] LABS: Glucose, Whole Blood 106 mg/dL (60-115)
--- NOTE | 2023-10-22 16:36 | HO.PSYCHPN ---
Subjective Subjective Date of Service: 10/22/23 Reason For Visit: Delusional parasitosis Subjective Notes: Conditional Voluntary Interim History: Pt slept through the night. She reports her mood is better. She state she likes the fact that she is socializing with peers. She denies SI/HI. No overt delusions of parasitosis. She is tolerating medications. No behavioral concerns. pt reports right shoulder pain after hitting door prior to coming here to hospital. will order xray. Review of Systems Constitutional: Denies chills and Denies fever(s) Denies sore throat Cardiovascular: Denies no additional cardiovascular complaints, Denies chest pain, Denies rapid heart rate and Reports dyspnea Respiratory: Denies cough and Reports dyspnea Gastrointestinal: Denies abdominal pain, Denies nausea and Denies vomiting Musculoskeletal: Denies back pain Skin/Breast: Reports pruritus, Denies non-healing lesions, Denies erythema, Denies rash, Denies unusual bruising and Denies wounds Mental Status Exam Mental Status Exam Narrative: Appearance: wearing hospital gown, fair hygiene, anxious Behavior: cooperative Psychomotor: no agitation or retardation noted, some tapping of feet while lying in bed. Speech: clear, normal rate/rhythm/volume, spontaneous TP: mostly linear TC:feeling a little bit better in terms of itchiness and bugs crawling on skin. having migraines. Mood: not well' Affect: anxious SI: denies HI: denies VH/AH: denies seeing bugs today Delusions: thinks she is infested with parasites or bacteria going through her veins and eating her skin Insight/judgment: fair x 2. memory/cog: alert, oriented x 3. pending MOCA, ACL assessment. Diagnostics Vital Signs (24Hr): Vital Signs - 24 hr 10/21/23 18:38 10/22/23 08:00 Temperature 96.7 F L 97.6 F Pulse Rate 79 76 Respiratory Rate 18 18 Blood Pressure 126/64 158/68 H Pulse Oximetry 96 97 Oxygen Delivery Method Room Air Room Air BMI result Body Mass Index 27.8 Labs 10/16/23 07:57 10/16/23 07:57 Labs: Laboratory Results - last 48 hr 10/17/23 10/20/23 10/21/23 11:19 22:07 06:22 POC Glucose 129 H 66 RPR Titer TNP 10/21/23 10/22/23 10/22/23 07:11 06:05 10:29 POC Glucose 136 H 87 210 H RPR Titer 10/22/23 16:13 POC Glucose 106 RPR Titer Imaging Radiology Impressions: ITS Impressions Head CT 10/21/23 15:49 IMPRESSION: No acute intracranial process seen. Shoulder X-Ray 10/22/23 12:57 IMPRESSION: Normal right shoulder. Medications Medications Current Medications Acetaminophen/Butalbital/Caffeine (Butalb/Acetamin/Caff 50/325/40 Tablet) 1 tab PO Q6H PRN PRN Reason: migraine Last Admin: 10/21/23 22:55 Dose: 1 tab Al Hydroxide/Mg Hydroxide (Magnesium Hydrox/Alum Hydrox 30 Ml Oral.Susp) 30 ml PO Q6H PRN PRN Reason: Heartburn/Nausea Albuterol Sulfate (Albuterol Sulfate (0.083%) 2.5 Mg/3 Ml Vial.Neb) 2.5 mg INHALE Q4H PRN PRN Reason: wheezing Albuterol Sulfate (Albuterol Sulfate 90 Mcg 8 Gm Inhaler) 2 puff INHALE Q4H PRN PRN Reason: wheezing Last Admin: 10/22/23 10:13 Dose: 2 puff Amitriptyline HCl (Amitriptyline Hcl 50 Mg Tablet) 100 mg PO BEDTIME [facility] Last Admin: 10/21/23 21:04 Dose: 100 mg Aspirin (Aspirin Enteric Coated 81 Mg Tablet.Dr) 81 mg PO DAILY [facility] Last Admin: 10/22/23 10:09 Dose: 81 mg Atorvastatin Calcium (Atorvastatin Calcium 80 Mg Tablet) 80 mg PO BEDTIME [facility] Last Admin: 10/21/23 21:05 Dose: 80 mg Clonazepam (Clonazepam 0.5 Mg Tablet) 0.5 mg PO BID [facility] Last Admin: 10/22/23 10:10 Dose: 0.5 mg Gabapentin (Gabapentin 300 Mg Capsule) 300 mg PO BID [facility] Last Admin: 10/22/23 10:10 Dose: 300 mg Insulin Glargine (Insulin Glargine,Hum.Rec.Anlog 100 Unit/Ml 10 Ml Vial) 30 unit SUBCUT DAILY [facility] Last Admin: 10/22/23 10:34 Dose: 30 unit Insulin Human Lispro (Insulin Lispro 100 Unit/Ml 3 Ml Vial) 0 unit SUBCUT QIDACHS [facility]; Protocol Last Admin: 10/22/23 16:30 Dose: Not Given Loratadine (Loratadine 10 Mg Tablet) 10 mg PO DAILY [facility] Last Admin: 10/22/23 10:09 Dose: 10 mg Magnesium Hydroxide (Milk Of Magnesia 30 Ml Oral.Susp) 30 ml PO DAILY PRN PRN Reason: Constipation Magnesium Oxide (Magnesium Oxide 400 Mg Tablet) 400 mg PO BEDTIME [facility] Last Admin: 10/21/23 21:05 Dose: 400 mg Metformin HCl (Metformin Hcl Er 500 Mg Tab.Er.24h) 500 mg PO BID [facility] Last Admin: 10/22/23 10:10 Dose: 500 mg Metoprolol Succinate (Metoprolol Succinate Er 25 Mg Tab.Er.24h) 25 mg PO DAILY [facility]; Protocol Last Admin: 10/22/23 10:10 Dose: 25 mg Montelukast Sodium (Montelukast Sodium 10 Mg Tablet) 10 mg PO BEDTIME [facility] Last Admin: 10/21/23 21:05 Dose: 10 mg Omeprazole (Omeprazole 20 Mg Capsule.Dr) 20 mg PO DAILY@0630 [facility] Last Admin: 10/22/23 05:56 Dose: 20 mg Ondansetron HCl (Ondansetron Odt 4 Mg Tab.Rapdis) 4 mg TRANSLINGU Q8H PRN PRN Reason: nausea and vomiting Last Admin: 10/17/23 15:00 Dose: 4 mg Pyridoxine HCl (Pyridoxine Hcl (Vitamin B6) 50 Mg Tablet) 50 mg PO DAILY [facility] Last Admin: 10/22/23 10:09 Dose: 50 mg Risperidone (Risperidone 1 Mg Tablet) 1 mg PO BID [facility] Last Admin: 10/22/23 10:10 Dose: 1 mg Senna/Docusate Sodium (Sennosides/Docusate Sodium Tablet) 1 tab PO BID [facility] Last Admin: 10/22/23 10:11 Dose: 1 tab Allergies Allergies Allergy/AdvReac Type Severity Reaction Status Date / Time Penicillins Allergy Mild Swelling Verified 09/10/23 04:07 Assessment & Plan Assessment & Plan (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 Keating is a 68 year-old woman who self presented with family due to reports of itchiness, allover which she interprets as having bugs/parasities or bacteria running through her veins. She has reported seeing these bugs, and points at them while she talks with this mortgage loan underwriter. No prior hx of psychosis or delusions. Family by her side and daughter provided collateral information. Delusional parasitosis is a rare form of delusions/with hallucination that in some instances can have medical underlying cause (the report of itching may be accurate but the explanation and conviction that it is cause by bugs or parasites and the report of seeing them is a perceptual disturbance in that others can't see them). Some common causes of underlying medical conditions that can present with delusional parasitosis include B12/folate deficiency, neuropathy, hyperthyroidism, HIV, syphilis. Medications can also cause it including meds such as topamax, ciprofloxacin, amantadine, steroids, ketoconazole, phenelzine (she is not on any of these currently or recently). low doses of antipsychotics can also help. There are several concerns about polypharmacy in her current regimen--> including 2 antidepressants- cymbalta, amitriptyline, recently addition to tramadol (caution with several serotonergic agents). She also has clonazepam, ambien (family reports multiple calls at night that pt has no recolection- concern in terms of parasomnia with ambien). Pt has been taking benadryl for itchiness with no effect--> will avoid at this point antihistamine medications due to concern of worsening cognition or confusion (which family also reporting). PLAN 10/21- less delusions of parasitosis. continue risperidone. pending MOCA and ACL. 10/22 continue tx. xr for r shoulder Reason for continued inpatient stay Substantial Risk for: inability to function Time Spent With Patient Time: Total time managing care of this patient today ____ minutes.
[2023-10-22 20:03] LABS: Glucose, Whole Blood 136 mg/dL (60-115)
[2023-10-22] MEDS: Montelukast Sodium 10 MG TABLET PO (20:55)
[2023-10-22] MEDS: Magnesium Oxide 400 MG TABLET PO (20:55)
[2023-10-22] MEDS: Amitriptyline HCl 50 MG TABLET 100 MG PO (20:55)
[2023-10-22] MEDS: Atorvastatin Calcium 80 MG TABLET PO (20:55)
[2023-10-22] MEDS: Butalb/Acetamin/Caff 50/325/40 TABLET 1 TAB PO (21:06)
[2023-10-23 06:00] VITALS: BP 144/71; PULSE 77; RESP 15; TEMP 36.1; O2SAT 97
[2023-10-23] MEDS: Omeprazole 20 MG CAPSULE.DR PO (06:28)
[2023-10-23 06:40] LABS: Glucose, Whole Blood 90 mg/dL (60-115)
[2023-10-23] MEDS: Gabapentin 300 MG CAPSULE PO ×2 (08:46→23:00)
[2023-10-23] MEDS: Loratadine 10 MG TABLET PO (08:46)
[2023-10-23] MEDS: Pyridoxine HCl (Vitamin B6) 50 MG TABLET PO (08:46)
[2023-10-23] MEDS: clonazePAM 0.5 MG TABLET PO ×2 (08:46→22:58)
[2023-10-23] MEDS: Sennosides/Docusate Sodium TABLET 1 TAB PO ×2 (08:47→22:58)
[2023-10-23] MEDS: Insulin Glargine,Hum.rec.anlog 100 UNIT/ML 10 ML VIAL 30 UNIT SUBCUT (08:47)
[2023-10-23] MEDS: Aspirin Enteric Coated 81 MG TABLET.DR PO (08:47)
[2023-10-23] MEDS: risperiDONE 1 MG TABLET PO ×2 (08:47→22:58)
[2023-10-23] MEDS: metFORMIN HCl ER 500 MG TAB.ER.24H PO ×2 (08:47→22:58)
[2023-10-23] MEDS: Metoprolol Succinate ER 25 MG TAB.ER.24H PO (08:47)
[2023-10-23 09:01] LABS: Creatinine Clr Calc Pharmacy 84.4; Estimated Glomerular Filt Rate > 60
--- NOTE | 2023-10-23 09:04 | HO.PSYCHPN ---
Subjective Subjective Date of Service: 10/23/23 Reason For Visit: Delusional parasitosis Subjective Notes: Conditional Voluntary Interim History: Pt slept through the night. Pt has been visible on the unit, social with select peers. She has a bright affect. She reports she likes here so much because she has met people and attends groups which she finds helpful. No behavioral concerns. Pt taking medications. Review of Systems Constitutional: Denies chills and Denies fever(s) Denies sore throat Cardiovascular: Denies no additional cardiovascular complaints, Denies chest pain, Denies rapid heart rate and Reports dyspnea Respiratory: Denies cough and Reports dyspnea Gastrointestinal: Denies abdominal pain, Denies nausea and Denies vomiting Musculoskeletal: Denies back pain Skin/Breast: Reports pruritus, Denies non-healing lesions, Denies erythema, Denies rash, Denies unusual bruising and Denies wounds Mental Status Exam Mental Status Exam Narrative: Appearance: wearing hospital gown, fair hygiene, anxious Behavior: cooperative Psychomotor: no agitation or retardation noted, some tapping of feet while lying in bed. Speech: clear, normal rate/rhythm/volume, spontaneous TP: mostly linear TC:feeling a little bit better in terms of itchiness and bugs crawling on skin. having migraines. Mood: not well' Affect: anxious SI: denies HI: denies VH/AH: denies seeing bugs today Delusions: thinks she is infested with parasites or bacteria going through her veins and eating her skin Insight/judgment: fair x 2. memory/cog: alert, oriented x 3. pending MOCA, ACL assessment. Diagnostics Vital Signs (24Hr): Vital Signs - 24 hr 10/23/23 06:00 Temperature 97 F Pulse Rate 77 Respiratory Rate 15 Blood Pressure 144/71 H Pulse Oximetry 97 Oxygen Delivery Method Room Air BMI result Body Mass Index 27.8 Labs 10/16/23 07:57 10/23/23 08:39 Labs: Laboratory Results - last 48 hr 10/17/23 10/22/23 10/22/23 11:19 06:05 10:29 Creatinine Estim Creat Clear Calc Estimated GFR POC Glucose 87 210 H RPR Titer TNP 10/22/23 10/22/23 10/23/23 16:13 19:58 06:33 Creatinine Estim Creat Clear Calc Estimated GFR POC Glucose 106 136 H 90 RPR Titer 10/23/23 08:39 Creatinine 0.64 Estim Creat Clear Calc 84.4 Estimated GFR > 60 POC Glucose RPR Titer Imaging Radiology Impressions: ITS Impressions Head CT 10/21/23 15:49 IMPRESSION: No acute intracranial process seen. Shoulder X-Ray 10/22/23 12:57 IMPRESSION: Normal right shoulder. Medications Medications Current Medications Acetaminophen/Butalbital/Caffeine (Butalb/Acetamin/Caff 50/325/40 Tablet) 1 tab PO Q6H PRN PRN Reason: migraine Last Admin: 10/22/23 21:06 Dose: 1 tab Al Hydroxide/Mg Hydroxide (Magnesium Hydrox/Alum Hydrox 30 Ml Oral.Susp) 30 ml PO Q6H PRN PRN Reason: Heartburn/Nausea Albuterol Sulfate (Albuterol Sulfate (0.083%) 2.5 Mg/3 Ml Vial.Neb) 2.5 mg INHALE Q4H PRN PRN Reason: wheezing Albuterol Sulfate (Albuterol Sulfate 90 Mcg 8 Gm Inhaler) 2 puff INHALE Q4H PRN PRN Reason: wheezing Last Admin: 10/22/23 10:13 Dose: 2 puff Amitriptyline HCl (Amitriptyline Hcl 50 Mg Tablet) 100 mg PO BEDTIME [facility] Last Admin: 10/22/23 20:55 Dose: 100 mg Aspirin (Aspirin Enteric Coated 81 Mg Tablet.Dr) 81 mg PO DAILY [facility] Last Admin: 10/23/23 08:47 Dose: 81 mg Atorvastatin Calcium (Atorvastatin Calcium 80 Mg Tablet) 80 mg PO BEDTIME [facility] Last Admin: 10/22/23 20:55 Dose: 80 mg Clonazepam (Clonazepam 0.5 Mg Tablet) 0.5 mg PO BID [facility] Last Admin: 10/23/23 08:46 Dose: 0.5 mg Gabapentin (Gabapentin 300 Mg Capsule) 300 mg PO BID [facility] Last Admin: 10/23/23 08:46 Dose: 300 mg Insulin Glargine (Insulin Glargine,Hum.Rec.Anlog 100 Unit/Ml 10 Ml Vial) 30 unit SUBCUT DAILY [facility] Last Admin: 10/23/23 08:47 Dose: 30 unit Insulin Human Lispro (Insulin Lispro 100 Unit/Ml 3 Ml Vial) 0 unit SUBCUT QIDACHS [facility]; Protocol Last Admin: 10/23/23 07:34 Dose: Not Given Loratadine (Loratadine 10 Mg Tablet) 10 mg PO DAILY [facility] Last Admin: 10/23/23 08:46 Dose: 10 mg Magnesium Hydroxide (Milk Of Magnesia 30 Ml Oral.Susp) 30 ml PO DAILY PRN PRN Reason: Constipation Magnesium Oxide (Magnesium Oxide 400 Mg Tablet) 400 mg PO BEDTIME [facility] Last Admin: 10/22/23 20:55 Dose: 400 mg Metformin HCl (Metformin Hcl Er 500 Mg Tab.Er.24h) 500 mg PO BID [facility] Last Admin: 10/23/23 08:47 Dose: 500 mg Metoprolol Succinate (Metoprolol Succinate Er 25 Mg Tab.Er.24h) 25 mg PO DAILY [facility]; Protocol Last Admin: 10/23/23 08:47 Dose: 25 mg Montelukast Sodium (Montelukast Sodium 10 Mg Tablet) 10 mg PO BEDTIME [facility] Last Admin: 10/22/23 20:55 Dose: 10 mg Multi-Ingred Cream/Lotion/Oil/Oint (Mineral Oil/Petrolatum,White 106 Gm Tube) 1 appl TOPICAL DAILY [facility]; Protocol Omeprazole (Omeprazole 20 Mg Capsule.Dr) 20 mg PO DAILY@0630 [facility] Last Admin: 10/23/23 06:28 Dose: 20 mg Ondansetron HCl (Ondansetron Odt 4 Mg Tab.Rapdis) 4 mg TRANSLINGU Q8H PRN PRN Reason: nausea and vomiting Last Admin: 10/17/23 15:00 Dose: 4 mg Pyridoxine HCl (Pyridoxine Hcl (Vitamin B6) 50 Mg Tablet) 50 mg PO DAILY [facility] Last Admin: 10/23/23 08:46 Dose: 50 mg Risperidone (Risperidone 1 Mg Tablet) 1 mg PO BID [facility] Last Admin: 10/23/23 08:47 Dose: 1 mg Senna/Docusate Sodium (Sennosides/Docusate Sodium Tablet) 1 tab PO BID [facility] Last Admin: 10/23/23 08:47 Dose: 1 tab Allergies Allergies Allergy/AdvReac Type Severity Reaction Status Date / Time Penicillins Allergy Mild Swelling Verified 09/10/23 04:07 Assessment & Plan Assessment & Plan (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 Keating is a 68 year-old woman who self presented with family due to reports of itchiness, allover which she interprets as having bugs/parasities or bacteria running through her veins. She has reported seeing these bugs, and points at them while she talks with this physician underwriter. No prior hx of psychosis or delusions. Family by her side and daughter provided collateral information. Delusional parasitosis is a rare form of delusions/with hallucination that in some instances can have medical underlying cause (the report of itching may be accurate but the explanation and conviction that it is cause by bugs or parasites and the report of seeing them is a perceptual disturbance in that others can't see them). Some common causes of underlying medical conditions that can present with delusional parasitosis include B12/folate deficiency, neuropathy, hyperthyroidism, HIV, syphilis. Medications can also cause it including meds such as topamax, ciprofloxacin, amantadine, steroids, ketoconazole, phenelzine (she is not on any of these currently or recently). low doses of antipsychotics can also help. There are several concerns about polypharmacy in her current regimen--> including 2 antidepressants- cymbalta, amitriptyline, recently addition to tramadol (caution with several serotonergic agents). She also has clonazepam, ambien (family reports multiple calls at night that pt has no recolection- concern in terms of parasomnia with ambien). Pt has been taking benadryl for itchiness with no effect--> will avoid at this point antihistamine medications due to concern of worsening cognition or confusion (which family also reporting). PLAN 10/21- less delusions of parasitosis. continue risperidone. pending MOCA and ACL. 10/22 continue tx. xr for r shoulder 10/23 xr neg for fracture or any abnormality Reason for continued inpatient stay Substantial Risk for: inability to function Time Spent With Patient Time: Total time managing care of this patient today ____ minutes.
[2023-10-23] MEDS: Butalb/Acetamin/Caff 50/325/40 TABLET 1 TAB PO (09:11)
[2023-10-23 11:04] LABS: Anti Nuclear Antibody Screen POSITIVE (NEGATIVE)
[2023-10-23 11:23] LABS: Glucose, Whole Blood 135 mg/dL (60-115)
[2023-10-23 16:47] LABS: Glucose, Whole Blood 120 mg/dL (60-115)
[2023-10-23 18:00] VITALS: BP 150/76; PULSE 70; RESP 16; TEMP 36.8; O2SAT 97
[2023-10-23] MEDS: Magnesium Oxide 400 MG TABLET PO (22:58)
[2023-10-23] MEDS: Montelukast Sodium 10 MG TABLET PO (22:58)
[2023-10-23 23:13] LABS: Glucose, Whole Blood 132 mg/dL (60-115)
[2023-10-23] MEDS: Atorvastatin Calcium 80 MG TABLET PO (23:25)
[2023-10-23] MEDS: Amitriptyline HCl 50 MG TABLET 100 MG PO (23:25)
[2023-10-24] MEDS: Omeprazole 20 MG CAPSULE.DR PO (05:49)
[2023-10-24] MEDS: Butalb/Acetamin/Caff 50/325/40 TABLET 1 TAB PO (05:55)
[2023-10-24 06:49] LABS: Glucose, Whole Blood 74 mg/dL (60-115)
[2023-10-24] MEDS: Sennosides/Docusate Sodium TABLET 1 TAB PO ×2 (08:41→21:30)
[2023-10-24] MEDS: metFORMIN HCl ER 500 MG TAB.ER.24H PO ×2 (08:41→21:28)
[2023-10-24] MEDS: clonazePAM 0.5 MG TABLET PO ×2 (08:41→21:30)
[2023-10-24] MEDS: Metoprolol Succinate ER 25 MG TAB.ER.24H PO (08:42)
[2023-10-24] MEDS: Pyridoxine HCl (Vitamin B6) 50 MG TABLET PO (08:42)
[2023-10-24] MEDS: risperiDONE 1 MG TABLET PO ×2 (08:42→21:30)
[2023-10-24] MEDS: Gabapentin 300 MG CAPSULE PO ×2 (08:42→21:30)
[2023-10-24] MEDS: Loratadine 10 MG TABLET PO (08:42)
[2023-10-24] MEDS: Aspirin Enteric Coated 81 MG TABLET.DR PO (08:42)
[2023-10-24] MEDS: Insulin Glargine,Hum.rec.anlog 100 UNIT/ML 10 ML VIAL 30 UNIT SUBCUT (08:43)
[2023-10-24 08:44] VITALS: BP 144/76; PULSE 87; RESP 17; TEMP 36.1; O2SAT 97
--- NOTE | 2023-10-24 09:07 | P.PNPSI_ITS ---
Subjective Subjective Date of Service: 10/24/23 Reason For Visit: Delusional parasitosis Subjective Notes: Conditional Voluntary Interim History: Pt positive for covid, started on paxlovid. Pt reports feeling tired, resting in bed, coughing. VS stable. continue to monitor respiratory status Review of Systems Constitutional: Denies chills and Denies fever(s) Denies sore throat Cardiovascular: Denies no additional cardiovascular complaints, Denies chest pain, Denies rapid heart rate and Reports dyspnea Respiratory: Denies cough and Reports dyspnea Gastrointestinal: Denies abdominal pain, Denies nausea and Denies vomiting Musculoskeletal: Denies back pain Skin/Breast: Reports pruritus, Denies non-healing lesions, Denies erythema, Denies rash, Denies unusual bruising and Denies wounds Mental Status Exam Mental Status Exam Narrative: Appearance: wearing hospital gown, fair hygiene, anxious Behavior: cooperative Psychomotor: no agitation or retardation noted, some tapping of feet while lying in bed. Speech: clear, normal rate/rhythm/volume, spontaneous TP: mostly linear TC:feeling a little bit better in terms of itchiness and bugs crawling on skin. having migraines. Mood: not well' Affect: anxious SI: denies HI: denies VH/AH: denies seeing bugs today Delusions: thinks she is infested with parasites or bacteria going through her veins and eating her skin Insight/judgment: fair x 2. memory/cog: alert, oriented x 3. pending MOCA, ACL assessment. Diagnostics Vital Signs (24Hr): Vital Signs - 24 hr 10/23/23 18:00 10/24/23 08:44 Temperature 98.3 F 97 F Pulse Rate 70 87 Respiratory Rate 16 17 Blood Pressure 150/76 H 144/76 H Pulse Oximetry 97 97 Oxygen Delivery Method Room Air BMI result Body Mass Index 27.8 Labs 10/16/23 07:57 10/23/23 08:39 Labs: Laboratory Results - last 48 hr 10/17/23 10/22/23 10/22/23 11:19 10:29 16:13 Creatinine Estim Creat Clear Calc Estimated GFR POC Glucose 210 H 106 [place] Screen POSITIVE A [place] Titer 1:160 H [place] Pattern A 10/22/23 10/23/23 10/23/23 19:58 06:33 08:39 Creatinine 0.64 Estim Creat Clear Calc 84.4 Estimated GFR > 60 POC Glucose 136 H 90 [place] Screen [place] Titer [place] Pattern 10/23/23 10/23/23 10/23/23 11:19 16:34 23:04 Creatinine Estim Creat Clear Calc Estimated GFR POC Glucose 135 H 120 H 132 H [place] Screen [place] Titer [place] Pattern 10/24/23 05:57 Creatinine Estim Creat Clear Calc Estimated GFR POC Glucose 74 [place] Screen [place] Titer [place] Pattern Imaging Radiology Impressions: ITS Impressions Head CT 10/21/23 15:49 IMPRESSION: No acute intracranial process seen. Shoulder X-Ray 10/22/23 12:57 IMPRESSION: Normal right shoulder. Medications Medications Current Medications Acetaminophen/Butalbital/Caffeine (Butalb/Acetamin/Caff 50/325/40 Tablet) 1 tab PO Q6H PRN PRN Reason: migraine Last Admin: 10/24/23 05:55 Dose: 1 tab Al Hydroxide/Mg Hydroxide (Magnesium Hydrox/Alum Hydrox 30 Ml Oral.Susp) 30 ml PO Q6H PRN PRN Reason: Heartburn/Nausea Albuterol Sulfate (Albuterol Sulfate 90 Mcg 8 Gm Inhaler) 2 puff INHALE Q4H PRN PRN Reason: wheezing Last Admin: 10/22/23 10:13 Dose: 2 puff Amitriptyline HCl (Amitriptyline Hcl 50 Mg Tablet) 100 mg PO BEDTIME [facility] Last Admin: 10/23/23 23:25 Dose: 100 mg Aspirin (Aspirin Enteric Coated 81 Mg Tablet.Dr) 81 mg PO DAILY [facility] Last Admin: 10/24/23 08:42 Dose: 81 mg Atorvastatin Calcium (Atorvastatin Calcium 80 Mg Tablet) 80 mg PO BEDTIME [facility] Last Admin: 10/23/23 23:25 Dose: 80 mg Clonazepam (Clonazepam 0.5 Mg Tablet) 0.5 mg PO BID [facility] Last Admin: 10/24/23 08:41 Dose: 0.5 mg Gabapentin (Gabapentin 300 Mg Capsule) 300 mg PO BID [facility] Last Admin: 10/24/23 08:42 Dose: 300 mg Insulin Glargine (Insulin Glargine,Hum.Rec.Anlog 100 Unit/Ml 10 Ml Vial) 30 unit SUBCUT DAILY [facility] Last Admin: 10/24/23 08:43 Dose: 30 unit Insulin Human Lispro (Insulin Lispro 100 Unit/Ml 3 Ml Vial) 0 unit SUBCUT QIDACHS [facility]; Protocol Last Admin: 10/24/23 07:41 Dose: Not Given Loratadine (Loratadine 10 Mg Tablet) 10 mg PO DAILY [facility] Last Admin: 10/24/23 08:42 Dose: 10 mg Magnesium Hydroxide (Milk Of Magnesia 30 Ml Oral.Susp) 30 ml PO DAILY PRN PRN Reason: Constipation Magnesium Oxide (Magnesium Oxide 400 Mg Tablet) 400 mg PO BEDTIME [facility] Last Admin: 10/23/23 22:58 Dose: 400 mg Metformin HCl (Metformin Hcl Er 500 Mg Tab.Er.24h) 500 mg PO BID [facility] Last Admin: 10/24/23 08:41 Dose: 500 mg Metoprolol Succinate (Metoprolol Succinate Er 25 Mg Tab.Er.24h) 25 mg PO DAILY [facility]; Protocol Last Admin: 10/24/23 08:42 Dose: 25 mg Montelukast Sodium (Montelukast Sodium 10 Mg Tablet) 10 mg PO BEDTIME [facility] Last Admin: 10/23/23 22:58 Dose: 10 mg Multi-Ingred Cream/Lotion/Oil/Oint (Mineral Oil/Petrolatum,White 106 Gm Tube) 1 appl TOPICAL DAILY [facility]; Protocol Last Admin: 10/23/23 10:03 Dose: Not Given Omeprazole (Omeprazole 20 Mg Capsule.Dr) 20 mg PO DAILY@0630 [facility] Last Admin: 10/24/23 05:49 Dose: 20 mg Ondansetron HCl (Ondansetron Odt 4 Mg Tab.Rapdis) 4 mg TRANSLINGU Q8H PRN PRN Reason: nausea and vomiting Last Admin: 10/17/23 15:00 Dose: 4 mg Pyridoxine HCl (Pyridoxine Hcl (Vitamin B6) 50 Mg Tablet) 50 mg PO DAILY [facility] Last Admin: 10/24/23 08:42 Dose: 50 mg Risperidone (Risperidone 1 Mg Tablet) 1 mg PO BID [facility] Last Admin: 10/24/23 08:42 Dose: 1 mg Senna/Docusate Sodium (Sennosides/Docusate Sodium Tablet) 1 tab PO BID [facility] Last Admin: 10/24/23 08:41 Dose: 1 tab Allergies Allergies Allergy/AdvReac Type Severity Reaction Status Date / Time Penicillins Allergy Mild Swelling Verified 09/10/23 04:07 Assessment & Plan Assessment & Plan (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 Keating is a 68 year-old woman who self presented with family due to reports of itchiness, allover which she interprets as having bugs/parasities or bacteria running through her veins. She has reported seeing these bugs, and points at them while she talks with this account underwriter. No prior hx of psychosis or delusions. Family by her side and daughter provided collateral information. Delusional parasitosis is a rare form of delusions/with hallucination that in some instances can have medical underlying cause (the report of itching may be accurate but the explanation and conviction that it is cause by bugs or parasites and the report of seeing them is a perceptual disturbance in that others can't see them). Some common causes of underlying medical conditions that can present with delusional parasitosis include B12/folate deficiency, neuropathy, hyperthyroidism, HIV, syphilis. Medications can also cause it including meds such as topamax, ciprofloxacin, amantadine, steroids, ketoconazole, phenelzine (she is not on any of these currently or recently). low doses of antipsychotics can also help. There are several concerns about polypharmacy in her current regimen--> including 2 antidepressants- cymbalta, amitriptyline, recently addition to tramadol (caution with several serotonergic agents). She also has clonazepam, ambien (family reports multiple calls at night that pt has no recolection- concern in terms of parasomnia with ambien). Pt has been taking benadryl for itchiness with no effect--> will avoid at this point antihistamine medications due to concern of worsening cognition or confusion (which family also reporting). PLAN 10/21- less delusions of parasitosis. continue risperidone. pending MOCA and ACL. 10/22 continue tx. xr for r shoulder 10/23 xr neg for fracture or any abnormality 10/24 covid positive. started on paxlovid. held atorvastatin and fiorecet due to interaction with medication. Reason for continued inpatient stay Substantial Risk for: inability to function Time Spent With Patient Time: Total time managing care of this patient today ____ minutes.
[2023-10-24 11:44] LABS: Glucose, Whole Blood 193 mg/dL (60-115)
[2023-10-24] MEDS: Insulin Lispro 100 UNIT/ML 3 ML VIAL SUBCUT (11:45)
[2023-10-24 12:16] LABS: COVID-19 Test Positive (Negative); IDNOW Serial# 58CA691E
[2023-10-24 16:56] LABS: Glucose, Whole Blood 89 mg/dL (60-115)
[2023-10-24 20:41] LABS: Glucose, Whole Blood 115 mg/dL (60-115)
[2023-10-24] MEDS: guaiFENesin DM 600/30 1 TAB TAB.ER.12H PO (21:29)
[2023-10-24] MEDS: Magnesium Oxide 400 MG TABLET PO (21:29)
[2023-10-24] MEDS: Amitriptyline HCl 50 MG TABLET 100 MG PO (21:29)
[2023-10-24] MEDS: Montelukast Sodium 10 MG TABLET PO (21:30)
[2023-10-24] MEDS: Albuterol Sulfate 90 MCG 8 GM INHALER 2 PUFF INHALE (21:46)
[2023-10-24 22:42] VITALS: BP 146/66; PULSE 83; RESP 18; TEMP 35.6; O2SAT 95
[2023-10-25 06:00] VITALS: BP 159/61; PULSE 83; RESP 18; TEMP 36.2; O2SAT 96
[2023-10-25] MEDS: Omeprazole 20 MG CAPSULE.DR PO (06:24)
[2023-10-25 07:00] LABS: Glucose, Whole Blood 65 mg/dL (60-115)
[2023-10-25 07:06] LABS: Glucose, Whole Blood 105 mg/dL (60-115)
--- NOTE | 2023-10-25 08:54 | HO.PSYCHPN ---
Subjective Subjective Date of Service: 10/25/23 Reason For Visit: Delusional parasitosis Subjective Notes: Conditional Voluntary Interim History: The nursing staff reported the patient tested COVID-19 positive. She received p.r.n. albuterol for shortness of breath. She slept well her fasting blood sugars were low on the 66. On interview the patient is pleasantly confused, reports headache with COVID. Mental Status Exam Mental Status Exam Patient Appearance: Appropriate Patient Orientation: Person and Situation Level of Consciousness: Awake and Appropriate Patient Behavior: Guarded and Passive Mood Description: Withdrawn Affect Description: Constricted Patient Cognition Impaired: Yes Ability to Follow Directions: Good Speech Pattern: Clear Hallucinations: None Delusions: Not Present Thought Process: Distracted and Slowed Thinking Thought Content: positive for [place] and positive for Poverty of Content Judgement: Fair Diagnostics Vital Signs (24Hr): Vital Signs - 24 hr 10/24/23 22:42 Temperature 96.1 F L Pulse Rate 83 Respiratory Rate 18 Blood Pressure 146/66 H Pulse Oximetry 95 Oxygen Delivery Method Room Air BMI result Body Mass Index 27.8 Labs 10/16/23 07:57 10/23/23 08:39 Labs: Laboratory Results - last 48 hr 10/17/23 10/23/23 10/23/23 11:19 08:39 11:19 Creatinine 0.64 Estim Creat Clear Calc 84.4 Estimated GFR > 60 POC Glucose 135 H [facility] Screen POSITIVE A [facility] Titer 1:160 H [facility] Titer 2 TNP [facility] Titer 3 TNP [place] Pattern A [facility] Pattern 2 TNP [facility] Pattern 3 TNP COVID-19 ([facility]) COVID-19 Clin Com 10/23/23 10/23/23 10/24/23 16:34 23:04 05:57 Creatinine Estim Creat Clear Calc Estimated GFR POC Glucose 120 H 132 H 74 [facility] Screen [facility] Titer [facility] Titer 2 [facility] Titer 3 [facility] Pattern [facility] Pattern 2 [facility] Pattern 3 COVID-19 ([facility]) COVID-19 Clin Com 10/24/23 10/24/23 10/24/23 11:34 11:38 16:48 Creatinine Estim Creat Clear Calc Estimated GFR POC Glucose 193 H 89 [facility] Screen [facility] Titer [facility]ITA Titer 2 [facility] Titer 3 [facility] Pattern [facility] Pattern 2 [facility] Pattern 3 COVID-19 ([facility]) Positive A COVID-19 Clin Com See Note 01/12/24 01/13/24 01/13/24 20:25 06:25 07:02 Creatinine Estim Creat Clear Calc Estimated GFR POC Glucose 115 65 105 [facility] Screen [facility] Titer [facility] Titer 2 [facility] Titer 3 [facility] Pattern [facility] Pattern 2 [facility] Pattern 3 COVID-19 ([facility]) COVID-19 Clin Com Imaging Radiology Impressions: ITS Impressions Head CT 10/21/23 15:49 IMPRESSION: No acute intracranial process seen. Shoulder X-Ray 10/22/23 12:57 IMPRESSION: Normal right shoulder. Medications Medications Current Medications Acetaminophen/Butalbital/Caffeine (Butalb/Acetamin/Caff 50/325/40 Tablet) 1 tab PO Q6H PRN PRN Reason: migraine Last Admin: 10/24/23 05:55 Dose: 1 tab Al Hydroxide/Mg Hydroxide (Magnesium Hydrox/Alum Hydrox 30 Ml Oral.Susp) 30 ml PO Q6H PRN PRN Reason: Heartburn/Nausea Albuterol Sulfate (Albuterol Sulfate 90 Mcg 8 Gm Inhaler) 2 puff INHALE Q4H PRN PRN Reason: wheezing Last Admin: 10/24/23 21:46 Dose: 2 puff Amitriptyline HCl (Amitriptyline Hcl 50 Mg Tablet) 100 mg PO BEDTIME [facility] Last Admin: 10/24/23 21:29 Dose: 100 mg Aspirin (Aspirin Enteric Coated 81 Mg Tablet.Dr) 81 mg PO DAILY [facility] Last Admin: 10/24/23 08:42 Dose: 81 mg Atorvastatin Calcium (Atorvastatin Calcium 80 Mg Tablet) 80 mg PO BEDTIME [facility] Last Admin: 10/23/23 23:25 Dose: 80 mg Clonazepam (Clonazepam 0.5 Mg Tablet) 0.5 mg PO BID [facility] Last Admin: 10/24/23 21:30 Dose: 0.5 mg Fluticasone Propionate (Fluticasone Propionate Nasal 16 Gm [place]) 1 spray NOSTRIL-B DAILY [facility] Last Admin: 10/24/23 18:11 Dose: Not Given Gabapentin (Gabapentin 300 Mg Capsule) 300 mg PO BID [facility] Last Admin: 10/24/23 21:30 Dose: 300 mg Guaifenesin/Dextromethorphan (Guaifenesin Dm 600/30 1 Tab Tab.Er.12h) 1 tab PO BID [facility] Last Admin: 10/24/23 21:29 Dose: 1 tab Insulin Glargine (Insulin Glargine,Hum.Rec.Anlog 100 Unit/Ml 10 Ml Vial) 30 unit SUBCUT DAILY [facility] Last Admin: 10/24/23 08:43 Dose: 30 unit Insulin Human Lispro (Insulin Lispro 100 Unit/Ml 3 Ml Vial) 0 unit SUBCUT QIDACHS [facility]; Protocol Last Admin: 10/24/23 21:55 Dose: Not Given Loratadine (Loratadine 10 Mg Tablet) 10 mg PO DAILY [facility] Last Admin: 10/24/23 08:42 Dose: 10 mg Magnesium Hydroxide (Milk Of Magnesia 30 Ml Oral.Susp) 30 ml PO DAILY PRN PRN Reason: Constipation Magnesium Oxide (Magnesium Oxide 400 Mg Tablet) 400 mg PO BEDTIME [facility] Last Admin: 10/24/23 21:29 Dose: 400 mg Metformin HCl (Metformin Hcl Er 500 Mg Tab.Er.24h) 500 mg PO BID [facility] Last Admin: 10/24/23 21:28 Dose: 500 mg Metoprolol Succinate (Metoprolol Succinate Er 25 Mg Tab.Er.24h) 25 mg PO DAILY [facility]; Protocol Last Admin: 10/24/23 08:42 Dose: 25 mg Montelukast Sodium (Montelukast Sodium 10 Mg Tablet) 10 mg PO BEDTIME [facility] Last Admin: 10/24/23 21:30 Dose: 10 mg Multi-Ingred Cream/Lotion/Oil/Oint (Mineral Oil/Petrolatum,White 106 Gm Tube) 1 appl TOPICAL DAILY [facility]; Protocol Last Admin: 10/24/23 09:31 Dose: Not Given Nirmatrelvir/Ritonavir (Nirmatrelvir/Ritonavir 300/100 3 Tab Dose) 3 tab PO BID [facility] Stop: 10/29/23 09:01 Last Admin: 10/24/23 21:27 Dose: 3 tab Omeprazole (Omeprazole 20 Mg Capsule.Dr) 20 mg PO DAILY@0630 [facility] Last Admin: 10/25/23 06:24 Dose: 20 mg Ondansetron HCl (Ondansetron Odt 4 Mg Tab.Rapdis) 4 mg TRANSLINGU Q8H PRN PRN Reason: nausea and vomiting Last Admin: 10/17/23 15:00 Dose: 4 mg Pyridoxine HCl (Pyridoxine Hcl (Vitamin B6) 50 Mg Tablet) 50 mg PO DAILY [facility] Last Admin: 10/24/23 08:42 Dose: 50 mg Risperidone (Risperidone 1 Mg Tablet) 1 mg PO BID [facility] Last Admin: 10/24/23 21:30 Dose: 1 mg Senna/Docusate Sodium (Sennosides/Docusate Sodium Tablet) 1 tab PO BID [facility] Last Admin: 10/24/23 21:30 Dose: 1 tab Allergies Allergies Allergy/AdvReac Type Severity Reaction Status Date / Time Penicillins Allergy Mild Swelling Verified 09/10/23 04:07 Assessment & Plan Assessment & Plan (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 Keating is a 68 year-old woman who self presented with family due to reports of itchiness, allover which she interprets as having bugs/parasities or bacteria running through her veins. She has reported seeing these bugs, and points at them while she talks with this property underwriter. No prior hx of psychosis or delusions. Family by her side and daughter provided collateral information. Delusional parasitosis is a rare form of delusions/with hallucination that in some instances can have medical underlying cause (the report of itching may be accurate but the explanation and conviction that it is cause by bugs or parasites and the report of seeing them is a perceptual disturbance in that others can't see them). Some common causes of underlying medical conditions that can present with delusional parasitosis include B12/folate deficiency, neuropathy, hyperthyroidism, HIV, syphilis. Medications can also cause it including meds such as topamax, ciprofloxacin, amantadine, steroids, ketoconazole, phenelzine (she is not on any of these currently or recently). low doses of antipsychotics can also help. There are several concerns about polypharmacy in her current regimen--> including 2 antidepressants- cymbalta, amitriptyline, recently addition to tramadol (caution with several serotonergic agents). She also has clonazepam, ambien (family reports multiple calls at night that pt has no recolection- concern in terms of parasomnia with ambien). Pt has been taking benadryl for itchiness with no effect--> will avoid at this point antihistamine medications due to concern of worsening cognition or confusion (which family also reporting). PLAN 10/21- less delusions of parasitosis. continue risperidone. pending MOCA and ACL. 10/22 continue tx. xr for r shoulder 10/23 xr neg for fracture or any abnormality. 10/24 continue same treatment 10/25 continue same treatment. Reason for continued inpatient stay Substantial Risk for: inability to function, rapid decompensation and med/psych decompensation Time Spent With Patient Time: Total time managing care of this patient today __20__ minutes.
[2023-10-25] MEDS: Insulin Glargine,Hum.rec.anlog 100 UNIT/ML 10 ML VIAL 30 UNIT SUBCUT (09:55)
[2023-10-25] MEDS: Fluticasone Propionate Nasal 16 GM SPRAY 1 SPRAY NOSTRIL-B (09:55)
[2023-10-25] MEDS: Gabapentin 300 MG CAPSULE PO ×2 (09:57→20:53)
[2023-10-25] MEDS: risperiDONE 1 MG TABLET PO ×2 (09:57→20:55)
[2023-10-25] MEDS: guaiFENesin DM 600/30 1 TAB TAB.ER.12H PO ×2 (09:57→20:52)
[2023-10-25] MEDS: Loratadine 10 MG TABLET PO (09:57)
[2023-10-25] MEDS: metFORMIN HCl ER 500 MG TAB.ER.24H PO ×2 (09:57→20:52)
[2023-10-25] MEDS: Aspirin Enteric Coated 81 MG TABLET.DR PO (09:57)
[2023-10-25] MEDS: Sennosides/Docusate Sodium TABLET 1 TAB PO ×2 (09:57→20:53)
[2023-10-25] MEDS: clonazePAM 0.5 MG TABLET PO ×2 (09:58→20:55)
[2023-10-25] MEDS: Pyridoxine HCl (Vitamin B6) 50 MG TABLET PO (09:58)
[2023-10-25] MEDS: Mineral Oil/Petrolatum,White 106 GM Tube 1 APPL TOPICAL (10:00)
[2023-10-25] MEDS: Metoprolol Succinate ER 25 MG TAB.ER.24H PO (10:24)
[2023-10-25 11:25] LABS: Glucose, Whole Blood 126 mg/dL (60-115)
[2023-10-25 16:36] LABS: Glucose, Whole Blood 107 mg/dL (60-115)
[2023-10-25 18:00] VITALS: BP 147/65; PULSE 70; RESP 18; TEMP 35.8; O2SAT 97
[2023-10-25 20:08] LABS: Glucose, Whole Blood 104 mg/dL (60-115)
[2023-10-25] MEDS: Acetaminophen 325 MG TABLET 650 MG PO (20:51)
[2023-10-25] MEDS: Amitriptyline HCl 50 MG TABLET 100 MG PO (20:53)
[2023-10-25] MEDS: Montelukast Sodium 10 MG TABLET PO (20:54)
[2023-10-25] MEDS: Magnesium Oxide 400 MG TABLET PO (20:54)
[2023-10-25] MEDS: Albuterol Sulfate 90 MCG 8 GM INHALER 2 PUFF INHALE (20:59)
[2023-10-26 06:00] VITALS: BP 146/64; PULSE 82; RESP 18; TEMP 36.6; O2SAT 94
[2023-10-26] MEDS: Omeprazole 20 MG CAPSULE.DR PO (06:07)
[2023-10-26 06:49] LABS: Glucose, Whole Blood 55 mg/dL (60-115)
[2023-10-26 06:49] LABS: Glucose, Whole Blood 86 mg/dL (60-115)
[2023-10-26] MEDS: Metoprolol Succinate ER 25 MG TAB.ER.24H PO (09:50)
[2023-10-26] MEDS: Aspirin Enteric Coated 81 MG TABLET.DR PO (09:50)
[2023-10-26] MEDS: guaiFENesin DM 600/30 1 TAB TAB.ER.12H PO ×2 (09:50→20:46)
[2023-10-26] MEDS: Gabapentin 300 MG CAPSULE PO ×2 (09:50→20:46)
[2023-10-26] MEDS: Sennosides/Docusate Sodium TABLET 1 TAB PO ×2 (09:50→20:47)
[2023-10-26] MEDS: Insulin Glargine,Hum.rec.anlog 100 UNIT/ML 10 ML VIAL 30 UNIT SUBCUT (09:51)
[2023-10-26] MEDS: clonazePAM 0.5 MG TABLET PO ×2 (09:51→20:45)
[2023-10-26] MEDS: metFORMIN HCl ER 500 MG TAB.ER.24H PO ×2 (09:51→20:46)
[2023-10-26] MEDS: Pyridoxine HCl (Vitamin B6) 50 MG TABLET PO (09:51)
[2023-10-26] MEDS: Loratadine 10 MG TABLET PO (09:51)
[2023-10-26] MEDS: Fluticasone Propionate Nasal 16 GM SPRAY 1 SPRAY NOSTRIL-B (09:51)
[2023-10-26] MEDS: risperiDONE 1 MG TABLET PO ×2 (09:57→20:47)
[2023-10-26] MEDS: Mineral Oil/Petrolatum,White 106 GM Tube 1 APPL TOPICAL (09:57)
--- NOTE | 2023-10-26 11:16 | P.PNPSI_ITS ---
Subjective Subjective Date of Service: 10/26/23 Reason For Visit: Delusional parasitosis Subjective Notes: Conditional Voluntary Interim History: The nursing staff reported the patient have stable vital signs she looks better but on interview she complained of mild headaches. No changes in her mental status. Mental Status Exam Mental Status Exam Patient Appearance: Appropriate Patient Orientation: Person and Situation Level of Consciousness: Awake Patient Behavior: Guarded and Passive Mood Description: Withdrawn Affect Description: Constricted Patient Cognition Impaired: Yes Ability to Follow Directions: Good Speech Pattern: Clear Hallucinations: None Delusions: Not Present Thought Process: Distracted and Linear Thought Content: positive for [place] and positive for Poverty of Content Judgement: Fair Diagnostics Vital Signs (24Hr): Vital Signs - 24 hr 10/25/23 18:00 10/26/23 06:00 Temperature 96.5 F L 97.8 F Pulse Rate 70 82 Respiratory Rate 18 18 Blood Pressure 147/65 H 146/64 H Pulse Oximetry 97 94 Oxygen Delivery Method Room Air Room Air BMI result Body Mass Index 27.8 Labs 10/16/23 07:57 10/23/23 08:39 Labs: Laboratory Results - last 48 hr 10/24/23 10/24/23 10/24/23 11:34 11:38 16:48 POC Glucose 193 H 89 COVID-19 ([facility]) Positive A COVID-19 Clin Com See Note 10/24/23 10/25/23 10/25/23 20:25 06:25 07:02 POC Glucose 115 65 105 COVID-19 ([facility]) COVID-19 Clin Com 10/25/23 10/25/23 10/25/23 11:15 16:32 19:52 POC Glucose 126 H 107 104 COVID-19 ([facility]) COVID-19 Clin Com 10/26/23 10/26/23 06:09 06:44 POC Glucose 55 L* 86 COVID-19 ([facility]) COVID-19 Clin Com Imaging Radiology Impressions: ITS Impressions Head CT 10/21/23 15:49 IMPRESSION: No acute intracranial process seen. Shoulder X-Ray 10/22/23 12:57 IMPRESSION: Normal right shoulder. Medications Medications Current Medications Acetaminophen (Acetaminophen 325 Mg Tablet) 650 mg PO Q6H PRN PRN Reason: Headache Last Admin: 10/25/23 20:51 Dose: 650 mg Acetaminophen/Butalbital/Caffeine (Butalb/Acetamin/Caff 50/325/40 Tablet) 1 tab PO Q6H PRN PRN Reason: migraine Last Admin: 10/24/23 05:55 Dose: 1 tab Al Hydroxide/Mg Hydroxide (Magnesium Hydrox/Alum Hydrox 30 Ml Oral.Susp) 30 ml PO Q6H PRN PRN Reason: Heartburn/Nausea Albuterol Sulfate (Albuterol Sulfate 90 Mcg 8 Gm Inhaler) 2 puff INHALE Q4H PRN PRN Reason: wheezing Last Admin: 10/25/23 20:59 Dose: 2 puff Amitriptyline HCl (Amitriptyline Hcl 50 Mg Tablet) 100 mg PO BEDTIME [facility] Last Admin: 10/25/23 20:53 Dose: 100 mg Aspirin (Aspirin Enteric Coated 81 Mg Tablet.Dr) 81 mg PO DAILY [facility] Last Admin: 10/26/23 09:50 Dose: 81 mg Atorvastatin Calcium (Atorvastatin Calcium 80 Mg Tablet) 80 mg PO BEDTIME [facility] Last Admin: 10/23/23 23:25 Dose: 80 mg Clonazepam (Clonazepam 0.5 Mg Tablet) 0.5 mg PO BID [facility] Last Admin: 10/26/23 09:51 Dose: 0.5 mg Fluticasone Propionate (Fluticasone Propionate Nasal 16 Gm [place]) 1 spray NOSTRIL-B DAILY [facility] Last Admin: 10/26/23 09:51 Dose: 1 spray Gabapentin (Gabapentin 300 Mg Capsule) 300 mg PO BID [facility] Last Admin: 10/26/23 09:50 Dose: 300 mg Guaifenesin/Dextromethorphan (Guaifenesin Dm 600/30 1 Tab Tab.Er.12h) 1 tab PO BID [facility] Last Admin: 10/26/23 09:50 Dose: 1 tab Insulin Glargine (Insulin Glargine,Hum.Rec.Anlog 100 Unit/Ml 10 Ml Vial) 30 unit SUBCUT DAILY [facility] Last Admin: 10/26/23 09:51 Dose: 30 unit Insulin Human Lispro (Insulin Lispro 100 Unit/Ml 3 Ml Vial) 0 unit SUBCUT QIDACHS [facility]; Protocol Last Admin: 10/26/23 08:35 Dose: Not Given Loratadine (Loratadine 10 Mg Tablet) 10 mg PO DAILY [facility] Last Admin: 10/26/23 09:51 Dose: 10 mg Magnesium Hydroxide (Milk Of Magnesia 30 Ml Oral.Susp) 30 ml PO DAILY PRN PRN Reason: Constipation Magnesium Oxide (Magnesium Oxide 400 Mg Tablet) 400 mg PO BEDTIME [facility] Last Admin: 10/25/23 20:54 Dose: 400 mg Metformin HCl (Metformin Hcl Er 500 Mg Tab.Er.24h) 500 mg PO BID [facility] Last Admin: 10/26/23 09:51 Dose: 500 mg Metoprolol Succinate (Metoprolol Succinate Er 25 Mg Tab.Er.24h) 25 mg PO DAILY [facility]; Protocol Last Admin: 10/26/23 09:50 Dose: 25 mg Montelukast Sodium (Montelukast Sodium 10 Mg Tablet) 10 mg PO BEDTIME [facility] Last Admin: 10/25/23 20:54 Dose: 10 mg Multi-Ingred Cream/Lotion/Oil/Oint (Mineral Oil/Petrolatum,White 106 Gm Tube) 1 appl TOPICAL DAILY [facility]; Protocol Last Admin: 10/26/23 09:57 Dose: 1 appl Nirmatrelvir/Ritonavir (Nirmatrelvir/Ritonavir 300/100 3 Tab Dose) 3 tab PO BID [facility] Stop: 10/29/23 09:01 Last Admin: 10/26/23 09:55 Dose: 3 tab Omeprazole (Omeprazole 20 Mg Capsule.Dr) 20 mg PO DAILY@0630 [facility] Last Admin: 10/26/23 06:07 Dose: 20 mg Ondansetron HCl (Ondansetron Odt 4 Mg Tab.Rapdis) 4 mg TRANSLINGU Q8H PRN PRN Reason: nausea and vomiting Last Admin: 10/17/23 15:00 Dose: 4 mg Pyridoxine HCl (Pyridoxine Hcl (Vitamin B6) 50 Mg Tablet) 50 mg PO DAILY [facility] Last Admin: 10/26/23 09:51 Dose: 50 mg Risperidone (Risperidone 1 Mg Tablet) 1 mg PO BID [facility] Last Admin: 10/26/23 09:57 Dose: 1 mg Senna/Docusate Sodium (Sennosides/Docusate Sodium Tablet) 1 tab PO BID [facility] Last Admin: 10/26/23 09:50 Dose: 1 tab Allergies Allergies Allergy/AdvReac Type Severity Reaction Status Date / Time Penicillins Allergy Mild Swelling Verified 09/10/23 04:07 Assessment & Plan Assessment & Plan (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 Keating is a 68 year-old woman who self presented with family due to reports of itchiness, allover which she interprets as having bugs/parasities or bacteria running through her veins. She has reported seeing these bugs, and points at them while she talks with this typewriters functional tester. No prior hx of psychosis or delusions. Family by her side and daughter provided collateral information. Delusional parasitosis is a rare form of delusions/with hallucination that in some instances can have medical underlying cause (the report of itching may be accurate but the explanation and conviction that it is cause by bugs or parasites and the report of seeing them is a perceptual disturbance in that others can't see them). Some common causes of underlying medical conditions that can present with delusional parasitosis include B12/folate deficiency, neuropathy, hyperthyroidism, HIV, syphilis. Medications can also cause it including meds such as topamax, ciprofloxacin, amantadine, steroids, ketoconazole, phenelzine (she is not on any of these currently or recently). low doses of antipsychotics can also help. There are several concerns about polypharmacy in her current regimen--> including 2 antidepressants- cymbalta, amitriptyline, recently addition to tramadol (caution with several serotonergic agents). She also has clonazepam, ambien (family reports multiple calls at night that pt has no recolection- concern in terms of parasomnia with ambien). Pt has been taking benadryl for itchiness with no effect--> will avoid at this point antihistamine medications due to concern of worsening cognition or confusion (which family also reporting). PLAN 10/21- less delusions of parasitosis. continue risperidone. pending MOCA and ACL. 10/22 continue tx. xr for r shoulder 10/23 xr neg for fracture or any abnormality. 10/24 continue same treatment 10/25 continue same treatment. 08/26 continue same treatment Reason for continued inpatient stay Substantial Risk for: inability to function, rapid decompensation and med/psych decompensation Time Spent With Patient Time: Total time managing care of this patient today __20__ minutes.
[2023-10-26 11:36] LABS: Glucose, Whole Blood 104 mg/dL (60-115)
[2023-10-26 16:17] LABS: Glucose, Whole Blood 92 mg/dL (60-115)
[2023-10-26 18:00] VITALS: BP 145/66; PULSE 79; RESP 18; TEMP 36.3; O2SAT 93
[2023-10-26] MEDS: Amitriptyline HCl 50 MG TABLET 100 MG PO (20:45)
[2023-10-26] MEDS: Montelukast Sodium 10 MG TABLET PO (20:46)
[2023-10-26] MEDS: Magnesium Oxide 400 MG TABLET PO (20:46)
[2023-10-26 20:50] LABS: Glucose, Whole Blood 124 mg/dL (60-115)
[2023-10-27] MEDS: Omeprazole 20 MG CAPSULE.DR PO (05:57)
[2023-10-27 06:06] LABS: Glucose, Whole Blood 62 mg/dL (60-115)
[2023-10-27 06:52] LABS: Glucose, Whole Blood 75 mg/dL (60-115)
[2023-10-27 08:00] VITALS: BP 126/60; PULSE 82; RESP 18; TEMP 36.8; O2SAT 95
--- NOTE | 2023-10-27 09:25 | HO.PSYCHPN ---
Subjective Subjective Date of Service: 10/27/23 Reason For Visit: Delusional parasitosis Subjective Notes: Conditional Voluntary Interim History: Pt slept through the night. She reports feeling well and bored in isolation due to covid. She denies any delusions of parasitosis. She reports mood is good She is looking forward to return home soon. Taking meds as prescribed. VS stable. no signs of respiratory symptoms. Review of Systems Constitutional: Denies chills and Denies fever(s) Denies sore throat Cardiovascular: Denies no additional cardiovascular complaints, Denies chest pain, Denies rapid heart rate and Reports dyspnea Respiratory: Denies cough and Reports dyspnea Gastrointestinal: Denies abdominal pain, Denies nausea and Denies vomiting Musculoskeletal: Denies back pain Skin/Breast: Reports pruritus, Denies non-healing lesions, Denies erythema, Denies rash, Denies unusual bruising and Denies wounds Mental Status Exam Mental Status Exam Narrative: Appearance: wearing hospital gown, fair hygiene, anxious Behavior: cooperative Psychomotor: no agitation or retardation noted Speech: clear, normal rate/rhythm/volume, spontaneous TP: mostly linear TC:feeling better, wanting to go home soon Mood: better' Affect: bright, non labile congruent SI: denies HI: denies VH/AH: none Delusions: none Insight/judgment: fair x 2. memory/cog: alert, oriented x 3. MOCA 13/30 with most impairments in executive function, recall, language fluency, abstraction. ACL 4.2 Diagnostics Vital Signs (24Hr): Vital Signs - 24 hr 10/26/23 18:00 Temperature 97.4 F Pulse Rate 79 Respiratory Rate 18 Blood Pressure 145/66 H Pulse Oximetry 93 Oxygen Delivery Method Room Air BMI result Body Mass Index 27.8 Labs 10/16/23 07:57 10/23/23 08:39 Labs: Laboratory Results - last 48 hr 10/25/23 10/25/23 10/25/23 11:15 16:32 19:52 POC Glucose 126 H 107 104 10/26/23 10/26/23 10/26/23 06:09 06:44 11:27 POC Glucose 55 L* 86 104 10/26/23 10/26/23 10/27/23 16:08 19:51 05:49 POC Glucose 92 124 H 62 10/27/23 06:43 POC Glucose 75 Imaging Radiology Impressions: ITS Impressions Head CT 10/21/23 15:49 IMPRESSION: No acute intracranial process seen. Shoulder X-Ray 10/22/23 12:57 IMPRESSION: Normal right shoulder. Medications Medications Current Medications Acetaminophen (Acetaminophen 325 Mg Tablet) 650 mg PO Q6H PRN PRN Reason: Headache Last Admin: 10/25/23 20:51 Dose: 650 mg Acetaminophen/Butalbital/Caffeine (Butalb/Acetamin/Caff 50/325/40 Tablet) 1 tab PO Q6H PRN PRN Reason: migraine Last Admin: 10/24/23 05:55 Dose: 1 tab Al Hydroxide/Mg Hydroxide (Magnesium Hydrox/Alum Hydrox 30 Ml Oral.Susp) 30 ml PO Q6H PRN PRN Reason: Heartburn/Nausea Albuterol Sulfate (Albuterol Sulfate 90 Mcg 8 Gm Inhaler) 2 puff INHALE Q4H PRN PRN Reason: wheezing Last Admin: 10/25/23 20:59 Dose: 2 puff Amitriptyline HCl (Amitriptyline Hcl 50 Mg Tablet) 100 mg PO BEDTIME [facility] Last Admin: 10/26/23 20:45 Dose: 100 mg Aspirin (Aspirin Enteric Coated 81 Mg Tablet.Dr) 81 mg PO DAILY [facility] Last Admin: 10/26/23 09:50 Dose: 81 mg Atorvastatin Calcium (Atorvastatin Calcium 80 Mg Tablet) 80 mg PO BEDTIME [facility] Last Admin: 10/23/23 23:25 Dose: 80 mg Clonazepam (Clonazepam 0.5 Mg Tablet) 0.5 mg PO BID [facility] Last Admin: 10/26/23 20:45 Dose: 0.5 mg Fluticasone Propionate (Fluticasone Propionate Nasal 16 Gm [place]) 1 spray NOSTRIL-B DAILY [facility] Last Admin: 10/26/23 09:51 Dose: 1 spray Gabapentin (Gabapentin 300 Mg Capsule) 300 mg PO BID [facility] Last Admin: 10/26/23 20:46 Dose: 300 mg Guaifenesin/Dextromethorphan (Guaifenesin Dm 600/30 1 Tab Tab.Er.12h) 1 tab PO BID [facility] Last Admin: 10/26/23 20:46 Dose: 1 tab Insulin Glargine (Insulin Glargine,Hum.Rec.Anlog 100 Unit/Ml 10 Ml Vial) 30 unit SUBCUT DAILY [facility] Last Admin: 10/26/23 09:51 Dose: 30 unit Insulin Human Lispro (Insulin Lispro 100 Unit/Ml 3 Ml Vial) 0 unit SUBCUT QIDACHS [facility]; Protocol Last Admin: 10/26/23 20:44 Dose: Not Given Loratadine (Loratadine 10 Mg Tablet) 10 mg PO DAILY [facility] Last Admin: 10/26/23 09:51 Dose: 10 mg Magnesium Hydroxide (Milk Of Magnesia 30 Ml Oral.Susp) 30 ml PO DAILY PRN PRN Reason: Constipation Magnesium Oxide (Magnesium Oxide 400 Mg Tablet) 400 mg PO BEDTIME [facility] Last Admin: 10/26/23 20:46 Dose: 400 mg Metformin HCl (Metformin Hcl Er 500 Mg Tab.Er.24h) 500 mg PO BID [facility] Last Admin: 10/26/23 20:46 Dose: 500 mg Metoprolol Succinate (Metoprolol Succinate Er 25 Mg Tab.Er.24h) 25 mg PO DAILY [facility]; Protocol Last Admin: 10/26/23 09:50 Dose: 25 mg Montelukast Sodium (Montelukast Sodium 10 Mg Tablet) 10 mg PO BEDTIME [facility] Last Admin: 10/26/23 20:46 Dose: 10 mg Multi-Ingred Cream/Lotion/Oil/Oint (Mineral Oil/Petrolatum,White 106 Gm Tube) 1 appl TOPICAL DAILY [facility]; Protocol Last Admin: 10/26/23 09:57 Dose: 1 appl Nirmatrelvir/Ritonavir (Nirmatrelvir/Ritonavir 300/100 3 Tab Dose) 3 tab PO BID [facility] Stop: 10/29/23 09:01 Last Admin: 10/26/23 20:46 Dose: 3 tab Omeprazole (Omeprazole 20 Mg Capsule.Dr) 20 mg PO DAILY@0630 [facility] Last Admin: 10/27/23 05:57 Dose: 20 mg Ondansetron HCl (Ondansetron Odt 4 Mg Tab.Rapdis) 4 mg TRANSLINGU Q8H PRN PRN Reason: nausea and vomiting Last Admin: 10/17/23 15:00 Dose: 4 mg Pyridoxine HCl (Pyridoxine Hcl (Vitamin B6) 50 Mg Tablet) 50 mg PO DAILY [facility] Last Admin: 10/26/23 09:51 Dose: 50 mg Risperidone (Risperidone 1 Mg Tablet) 1 mg PO BID [facility] Last Admin: 10/26/23 20:47 Dose: 1 mg Senna/Docusate Sodium (Sennosides/Docusate Sodium Tablet) 1 tab PO BID [facility] Last Admin: 10/26/23 20:47 Dose: 1 tab Allergies Allergies Allergy/AdvReac Type Severity Reaction Status Date / Time Penicillins Allergy Mild Swelling Verified 09/10/23 04:07 Assessment & Plan Assessment & Plan (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 Keating is a 68 year-old woman who self presented with family due to reports of itchiness, allover which she interprets as having bugs/parasities or bacteria running through her veins. She has reported seeing these bugs, and points at them while she talks with this policy writer. No prior hx of psychosis or delusions. Family by her side and daughter provided collateral information. Delusional parasitosis is a rare form of delusions/with hallucination that in some instances can have medical underlying cause (the report of itching may be accurate but the explanation and conviction that it is cause by bugs or parasites and the report of seeing them is a perceptual disturbance in that others can't see them). Some common causes of underlying medical conditions that can present with delusional parasitosis include B12/folate deficiency, neuropathy, hyperthyroidism, HIV, syphilis. Medications can also cause it including meds such as topamax, ciprofloxacin, amantadine, steroids, ketoconazole, phenelzine (she is not on any of these currently or recently). low doses of antipsychotics can also help. There are several concerns about polypharmacy in her current regimen--> including 2 antidepressants- cymbalta, amitriptyline, recently addition to tramadol (caution with several serotonergic agents). She also has clonazepam, ambien (family reports multiple calls at night that pt has no recolection- concern in terms of parasomnia with ambien). Pt has been taking benadryl for itchiness with no effect--> will avoid at this point antihistamine medications due to concern of worsening cognition or confusion (which family also reporting). PLAN 10/21- less delusions of parasitosis. continue risperidone. pending MOCA and ACL. 10/22 continue tx. xr for r shoulder 10/23 xr neg for fracture or any abnormality. 10/24 continue same treatment 10/25 continue same treatment. 08/26 continue same treatment 08/27 continue tx. VS stable. asymptomatic from covid. Reason for continued inpatient stay Substantial Risk for: inability to function Time Spent With Patient Time: Total time managing care of this patient today ____ minutes.
[2023-10-27] MEDS: risperiDONE 1 MG TABLET PO ×2 (10:00→21:02)
[2023-10-27] MEDS: Metoprolol Succinate ER 25 MG TAB.ER.24H PO (10:00)
[2023-10-27] MEDS: Sennosides/Docusate Sodium TABLET 1 TAB PO ×2 (10:00→21:02)
[2023-10-27] MEDS: Loratadine 10 MG TABLET PO (10:00)
[2023-10-27] MEDS: metFORMIN HCl ER 500 MG TAB.ER.24H PO ×2 (10:00→21:02)
[2023-10-27] MEDS: Pyridoxine HCl (Vitamin B6) 50 MG TABLET PO (10:00)
[2023-10-27] MEDS: Gabapentin 300 MG CAPSULE PO ×2 (10:00→21:02)
[2023-10-27] MEDS: clonazePAM 0.5 MG TABLET PO ×2 (10:00→21:02)
[2023-10-27] MEDS: guaiFENesin DM 600/30 1 TAB TAB.ER.12H PO ×2 (10:00→21:03)
[2023-10-27] MEDS: Aspirin Enteric Coated 81 MG TABLET.DR PO (10:00)
[2023-10-27] MEDS: Insulin Glargine,Hum.rec.anlog 100 UNIT/ML 10 ML VIAL 30 UNIT SUBCUT (10:01)
[2023-10-27] MEDS: Fluticasone Propionate Nasal 16 GM SPRAY 1 SPRAY NOSTRIL-B (10:11)
[2023-10-27] MEDS: Mineral Oil/Petrolatum,White 106 GM Tube 1 APPL TOPICAL (10:11)
[2023-10-27 11:41] LABS: Glucose, Whole Blood 116 mg/dL (60-115)
[2023-10-27 16:28] LABS: Glucose, Whole Blood 80 mg/dL (60-115)
[2023-10-27 20:57] VITALS: BP 128/70; PULSE 76; RESP 16; TEMP 36.2; O2SAT 95
[2023-10-27] MEDS: Insulin Lispro 100 UNIT/ML 3 ML VIAL SUBCUT (21:00)
[2023-10-27] MEDS: Montelukast Sodium 10 MG TABLET PO (21:02)
[2023-10-27] MEDS: Amitriptyline HCl 50 MG TABLET 100 MG PO (21:02)
[2023-10-27] MEDS: Magnesium Oxide 400 MG TABLET PO (21:02)
[2023-10-27 21:17] LABS: Glucose, Whole Blood 157 mg/dL (60-115)
[2023-10-28 06:00] VITALS: BP 136/73; PULSE 84; RESP 18; TEMP 36.3; O2SAT 94
[2023-10-28] MEDS: Omeprazole 20 MG CAPSULE.DR PO (06:43)
[2023-10-28 06:44] LABS: Glucose, Whole Blood 82 mg/dL (60-115)
--- NOTE | 2023-10-28 09:09 | HO.PSYCHPN ---
Subjective Subjective Date of Service: 10/28/23 Reason For Visit: Delusional parasitosis Subjective Notes: Conditional Voluntary Interim History: Pt slept through the night. She reports feeling well and bored in isolation due to covid. She denies any delusions of parasitosis. She reports mood is good She is looking forward to return home soon. Taking meds as prescribed. VS stable. no signs of respiratory symptoms. Review of Systems Constitutional: Denies chills and Denies fever(s) Denies sore throat Cardiovascular: Denies no additional cardiovascular complaints, Denies chest pain, Denies rapid heart rate and Reports dyspnea Respiratory: Denies cough and Reports dyspnea Gastrointestinal: Denies abdominal pain, Denies nausea and Denies vomiting Musculoskeletal: Denies back pain Skin/Breast: Reports pruritus, Denies non-healing lesions, Denies erythema, Denies rash, Denies unusual bruising and Denies wounds Mental Status Exam Mental Status Exam Narrative: Appearance: wearing hospital gown, fair hygiene, anxious Behavior: cooperative Psychomotor: no agitation or retardation noted Speech: clear, normal rate/rhythm/volume, spontaneous TP: mostly linear TC:feeling better, wanting to go home soon Mood: better' Affect: bright, non labile congruent SI: denies HI: denies VH/AH: none Delusions: none Insight/judgment: fair x 2. memory/cog: alert, oriented x 3. MOCA 13/30 with most impairments in executive function, recall, language fluency, abstraction. ACL 4.2 Diagnostics Vital Signs (24Hr): Vital Signs - 24 hr 10/27/23 20:57 10/28/23 06:00 Temperature 97.1 F 97.3 F Pulse Rate 76 84 Respiratory Rate 16 18 Blood Pressure 128/70 136/73 Pulse Oximetry 95 94 Oxygen Delivery Method Room Air Room Air BMI result Body Mass Index 27.8 Labs 10/16/23 07:57 10/23/23 08:39 Labs: Laboratory Results - last 48 hr 10/26/23 10/26/23 10/26/23 11:27 16:08 19:51 POC Glucose 104 92 124 H 10/27/23 10/27/23 10/27/23 05:49 06:43 11:37 POC Glucose 62 75 116 H 10/27/23 10/27/23 10/28/23 16:23 20:31 06:28 POC Glucose 80 157 H 82 Imaging Radiology Impressions: ITS Impressions Head CT 10/21/23 15:49 IMPRESSION: No acute intracranial process seen. Shoulder X-Ray 10/22/23 12:57 IMPRESSION: Normal right shoulder. Medications Medications Current Medications Acetaminophen (Acetaminophen 325 Mg Tablet) 650 mg PO Q6H PRN PRN Reason: Headache Last Admin: 10/25/23 20:51 Dose: 650 mg Acetaminophen/Butalbital/Caffeine (Butalb/Acetamin/Caff 50/325/40 Tablet) 1 tab PO Q6H PRN PRN Reason: migraine Last Admin: 10/24/23 05:55 Dose: 1 tab Al Hydroxide/Mg Hydroxide (Magnesium Hydrox/Alum Hydrox 30 Ml Oral.Susp) 30 ml PO Q6H PRN PRN Reason: Heartburn/Nausea Albuterol Sulfate (Albuterol Sulfate 90 Mcg 8 Gm Inhaler) 2 puff INHALE Q4H PRN PRN Reason: wheezing Last Admin: 10/25/23 20:59 Dose: 2 puff Amitriptyline HCl (Amitriptyline Hcl 50 Mg Tablet) 100 mg PO BEDTIME [facility] Last Admin: 10/27/23 21:02 Dose: 100 mg Aspirin (Aspirin Enteric Coated 81 Mg Tablet.Dr) 81 mg PO DAILY [facility] Last Admin: 10/27/23 10:00 Dose: 81 mg Atorvastatin Calcium (Atorvastatin Calcium 80 Mg Tablet) 80 mg PO BEDTIME [facility] Last Admin: 10/23/23 23:25 Dose: 80 mg Clonazepam (Clonazepam 0.5 Mg Tablet) 0.5 mg PO BID [facility] Last Admin: 10/27/23 21:02 Dose: 0.5 mg Fluticasone Propionate (Fluticasone Propionate Nasal 16 Gm [place]) 1 spray NOSTRIL-B DAILY [facility] Last Admin: 10/27/23 10:11 Dose: 1 spray Gabapentin (Gabapentin 300 Mg Capsule) 300 mg PO BID [facility] Last Admin: 10/27/23 21:02 Dose: 300 mg Guaifenesin/Dextromethorphan (Guaifenesin Dm 600/30 1 Tab Tab.Er.12h) 1 tab PO BID [facility] Last Admin: 10/27/23 21:03 Dose: 1 tab Insulin Glargine (Insulin Glargine,Hum.Rec.Anlog 100 Unit/Ml 10 Ml Vial) 30 unit SUBCUT DAILY [facility] Last Admin: 10/27/23 10:01 Dose: 30 unit Insulin Human Lispro (Insulin Lispro 100 Unit/Ml 3 Ml Vial) 0 unit SUBCUT QIDACHS [facility]; Protocol Last Admin: 10/28/23 06:49 Dose: Not Given Loratadine (Loratadine 10 Mg Tablet) 10 mg PO DAILY [facility] Last Admin: 10/27/23 10:00 Dose: 10 mg Magnesium Hydroxide (Milk Of Magnesia 30 Ml Oral.Susp) 30 ml PO DAILY PRN PRN Reason: Constipation Magnesium Oxide (Magnesium Oxide 400 Mg Tablet) 400 mg PO BEDTIME [facility] Last Admin: 10/27/23 21:02 Dose: 400 mg Metformin HCl (Metformin Hcl Er 500 Mg Tab.Er.24h) 500 mg PO BID [facility] Last Admin: 10/27/23 21:02 Dose: 500 mg Metoprolol Succinate (Metoprolol Succinate Er 25 Mg Tab.Er.24h) 25 mg PO DAILY [facility]; Protocol Last Admin: 10/27/23 10:00 Dose: 25 mg Montelukast Sodium (Montelukast Sodium 10 Mg Tablet) 10 mg PO BEDTIME [facility] Last Admin: 10/27/23 21:02 Dose: 10 mg Multi-Ingred Cream/Lotion/Oil/Oint (Mineral Oil/Petrolatum,White 106 Gm Tube) 1 appl TOPICAL DAILY [facility]; Protocol Last Admin: 10/27/23 10:11 Dose: 1 appl Nirmatrelvir/Ritonavir (Nirmatrelvir/Ritonavir 300/100 3 Tab Dose) 3 tab PO BID [facility] Stop: 10/29/23 09:01 Last Admin: 10/27/23 21:00 Dose: 3 tab Omeprazole (Omeprazole 20 Mg Capsule.Dr) 20 mg PO DAILY@0630 [facility] Last Admin: 10/28/23 06:43 Dose: 20 mg Ondansetron HCl (Ondansetron Odt 4 Mg Tab.Rapdis) 4 mg TRANSLINGU Q8H PRN PRN Reason: nausea and vomiting Last Admin: 10/17/23 15:00 Dose: 4 mg Pyridoxine HCl (Pyridoxine Hcl (Vitamin B6) 50 Mg Tablet) 50 mg PO DAILY [facility] Last Admin: 10/27/23 10:00 Dose: 50 mg Risperidone (Risperidone 1 Mg Tablet) 1 mg PO BID [facility] Last Admin: 10/27/23 21:02 Dose: 1 mg Senna/Docusate Sodium (Sennosides/Docusate Sodium Tablet) 1 tab PO BID [facility] Last Admin: 10/27/23 21:02 Dose: 1 tab Allergies Allergies Allergy/AdvReac Type Severity Reaction Status Date / Time Penicillins Allergy Mild Swelling Verified 09/10/23 04:07 Assessment & Plan Assessment & Plan (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 Keating is a 68 year-old woman who self presented with family due to reports of itchiness, allover which she interprets as having bugs/parasities or bacteria running through her veins. She has reported seeing these bugs, and points at them while she talks with this caption writer. No prior hx of psychosis or delusions. Family by her side and daughter provided collateral information. Delusional parasitosis is a rare form of delusions/with hallucination that in some instances can have medical underlying cause (the report of itching may be accurate but the explanation and conviction that it is cause by bugs or parasites and the report of seeing them is a perceptual disturbance in that others can't see them). Some common causes of underlying medical conditions that can present with delusional parasitosis include B12/folate deficiency, neuropathy, hyperthyroidism, HIV, syphilis. Medications can also cause it including meds such as topamax, ciprofloxacin, amantadine, steroids, ketoconazole, phenelzine (she is not on any of these currently or recently). low doses of antipsychotics can also help. There are several concerns about polypharmacy in her current regimen--> including 2 antidepressants- cymbalta, amitriptyline, recently addition to tramadol (caution with several serotonergic agents). She also has clonazepam, ambien (family reports multiple calls at night that pt has no recolection- concern in terms of parasomnia with ambien). Pt has been taking benadryl for itchiness with no effect--> will avoid at this point antihistamine medications due to concern of worsening cognition or confusion (which family also reporting). PLAN 10/21- less delusions of parasitosis. continue risperidone. pending MOCA and ACL. 10/22 continue tx. xr for r shoulder 10/23 xr neg for fracture or any abnormality. 10/24 continue same treatment 10/25 continue same treatment. 10/26 continue same treatment 10/27 continue tx. VS stable. asymptomatic from covid. 10/28 continue tx. Reason for continued inpatient stay Substantial Risk for: inability to function Time Spent With Patient Time: Total time managing care of this patient today ____ minutes.
[2023-10-28] MEDS: Fluticasone Propionate Nasal 16 GM SPRAY 1 SPRAY NOSTRIL-B (09:25)
[2023-10-28] MEDS: Pyridoxine HCl (Vitamin B6) 50 MG TABLET PO (09:26)
[2023-10-28] MEDS: Aspirin Enteric Coated 81 MG TABLET.DR PO (09:27)
[2023-10-28] MEDS: Metoprolol Succinate ER 25 MG TAB.ER.24H PO (09:28)
[2023-10-28] MEDS: metFORMIN HCl ER 500 MG TAB.ER.24H PO ×2 (09:28→20:56)
[2023-10-28] MEDS: Sennosides/Docusate Sodium TABLET 1 TAB PO ×2 (09:28→20:56)
[2023-10-28] MEDS: risperiDONE 1 MG TABLET PO ×2 (09:28→20:56)
[2023-10-28] MEDS: Loratadine 10 MG TABLET PO (09:29)
[2023-10-28] MEDS: Gabapentin 300 MG CAPSULE PO ×2 (09:29→20:56)
[2023-10-28] MEDS: Insulin Glargine,Hum.rec.anlog 100 UNIT/ML 10 ML VIAL 30 UNIT SUBCUT (09:29)
[2023-10-28] MEDS: clonazePAM 0.5 MG TABLET PO ×2 (09:29→20:56)
[2023-10-28] MEDS: guaiFENesin DM 600/30 1 TAB TAB.ER.12H PO ×2 (09:30→20:56)
[2023-10-28 11:50] LABS: Glucose, Whole Blood 109 mg/dL (60-115)
[2023-10-28 16:22] LABS: Glucose, Whole Blood 101 mg/dL (60-115)
[2023-10-28 18:00] VITALS: BP 144/64; PULSE 67; RESP 18; TEMP 36.2; O2SAT 97
[2023-10-28 20:28] LABS: Glucose, Whole Blood 100 mg/dL (60-115)
[2023-10-28] MEDS: Amitriptyline HCl 50 MG TABLET 100 MG PO (20:56)
[2023-10-28] MEDS: Montelukast Sodium 10 MG TABLET PO (20:56)
[2023-10-28] MEDS: Magnesium Oxide 400 MG TABLET PO (20:58)
[2023-10-29] MEDS: Acetaminophen 325 MG TABLET 650 MG PO (03:58)
[2023-10-29 06:00] VITALS: BP 151/67; PULSE 62; RESP 16; O2SAT 96
[2023-10-29] MEDS: Omeprazole 20 MG CAPSULE.DR PO (06:07)
[2023-10-29 06:28] LABS: Glucose, Whole Blood 61 mg/dL (60-115)
[2023-10-29 06:58] LABS: Glucose, Whole Blood 104 mg/dL (60-115)
[2023-10-29] MEDS: Sennosides/Docusate Sodium TABLET 1 TAB PO (08:20)
[2023-10-29] MEDS: Pyridoxine HCl (Vitamin B6) 50 MG TABLET PO (08:20)
[2023-10-29] MEDS: Loratadine 10 MG TABLET PO (08:20)
[2023-10-29] MEDS: guaiFENesin DM 600/30 1 TAB TAB.ER.12H PO (08:20)
[2023-10-29] MEDS: risperiDONE 1 MG TABLET PO (08:20)
[2023-10-29] MEDS: Gabapentin 300 MG CAPSULE PO (08:20)
[2023-10-29] MEDS: clonazePAM 0.5 MG TABLET PO (08:20)
[2023-10-29] MEDS: Metoprolol Succinate ER 25 MG TAB.ER.24H PO (08:20)
[2023-10-29] MEDS: Fluticasone Propionate Nasal 16 GM SPRAY 1 SPRAY NOSTRIL-B (08:21)
[2023-10-29] MEDS: Aspirin Enteric Coated 81 MG TABLET.DR PO (08:21)
[2023-10-29] MEDS: metFORMIN HCl ER 500 MG TAB.ER.24H PO (08:21)
[2023-10-29] MEDS: Insulin Glargine,Hum.rec.anlog 100 UNIT/ML 10 ML VIAL 30 UNIT SUBCUT (08:21)
--- NOTE | 2023-10-29 09:44 | PM.PSYDC ---
DS: Providers Provider Date of Service: 10/29/23 Date of admission: 10/20/23 12:17 Date of discharge: 10/29/23 Primary care physician: Unknown Physician Admitting clinician: Suze Gannon Discharging clinician: Suze Gannon DS: Diagnosis Discharge Diagnosis (1) Delusions of parasitosis: Status: Acute (2) Major neurocognitive disorder: Status: Acute DS: Medications Discharge Medications Home Medications: Home Medications Medication Instructions Recorded Confirmed albuterol sulfate 90 mcg/actuation 2 puff inhalation Q4H PRN wheezing 09/27/22 10/17/23 aerosol inhaler amitriptyline 150 mg tablet 150 mg PO BEDTIME 09/27/22 10/17/23 aspirin 81 mg tablet,delayed 81 mg PO DAILY 09/27/22 10/17/23 release atorvastatin 80 mg tablet 80 mg PO BEDTIME 09/27/22 10/17/23 blood sugar diagnostic (Home Inventory S[pecialistsuch #10 ea 09/27/22 10/20/23 Ultra Test strips) duloxetine 20 mg capsule,delayed 20 mg PO DAILY 09/27/22 10/17/23 release duloxetine 60 mg capsule,delayed 60 mg PO DAILY 09/27/22 10/17/23 release insulin glargine 100 unit/mL (3 30 unit subcut DAILY 09/27/22 10/17/23 mL) subcutaneous pen (Lantus Solostar U-100 Insulin) lancets 33 gauge (Home Inventory S[pecialistsTouch Delica #100 ea 09/27/22 10/20/23 Plus Lancet) metoprolol succinate 25 mg 25 mg PO DAILY 09/27/22 10/17/23 tablet,extended release 24 hr montelukast 10 mg tablet 10 mg PO BEDTIME 09/27/22 10/17/23 omeprazole 20 mg capsule,delayed 20 mg PO DAILY 09/27/22 10/17/23 release zolpidem 10 mg tablet 10 mg PO BEDTIME 09/27/22 10/17/23 gabapentin 300 mg capsule 300 mg PO BID 11/25/22 10/17/23 albuterol sulfate 2.5 mg/3 mL 1 vial inhalation Q4H PRN wheezing 12/16/22 10/17/23 (0.083 %) solution for nebulization fptzlsdkig-wbofcpelosbwm-[id number] 1 tab PO Q6H PRN Headache 10/17/23 10/17/23 50 mg-325 mg-40 mg tablet clonazepam 0.5 mg tablet 0.5 mg PO BID PRN Anxiety 10/17/23 10/17/23 loratadine 10 mg tablet 10 mg PO DAILY 10/17/23 10/17/23 metformin 500 mg tablet,extended 500 mg PO BID 10/17/23 10/17/23 release 24 hr tramadol 50 mg tablet 50 mg PO Q8H PRN Pain 10/17/23 10/17/23 Previous Rx's Medication Instructions Recorded clonazepam 1 mg tablet (Klonopin) 1 mg PO BEDTIME #10 tabs 12/18/22 ondansetron 4 mg disintegrating 4 mg PO Q8H PRN nausea and 06/23/23 tablet vomiting #10 tabs Mental Status Exam Mental Status Exam Narrative: Appearance: wearing hospital gown, fair hygiene, anxious Behavior: cooperative Psychomotor: no agitation or retardation noted Speech: clear, normal rate/rhythm/volume, spontaneous TP: mostly linear TC:feeling better, wanting to go home soon Mood: better' Affect: bright, non labile congruent SI: denies HI: denies VH/AH: none Delusions: none Insight/judgment: fair x 2. memory/cog: alert, oriented x 3. MOCA 13/30 with most impairments in executive function, recall, language fluency, abstraction. ACL 4.2 Data Data Completed and Pending Completed studies during hospitalization [Text1]: 10/17/23 10/22/23 10/22/23 11:19 10:29 16:13 Creatinine Estim Creat Clear Calc Estimated GFR POC Glucose 210 H 106 [place] Screen POSITIVE A [facility]ITA Titer 1:160 H [facility] Titer 2 TNP CH[facility]ITA Titer 3 TNP [place] Pattern A [facility]ITA Pattern 2 TNP CH[place]ITA Pattern 3 TNP COVID-19 ([facility]) COVID-19 Clin Com 10/22/23 10/23/23 10/23/23 19:58 06:33 08:39 Creatinine 0.64 Estim Creat Clear Calc 84.4 Estimated GFR > 60 POC Glucose 136 H 90 [facility]ITA Screen CHAPARRITA Titer CHAPARRITA Titer 2 CHAPARRITA Titer 3 CH[facility]ITA Pattern CHAPARRITA Pattern 2 CHAPARRITA Pattern 3 COVID-19 ([facility]) COVID-19 Clin Com 10/23/23 10/23/23 10/23/23 11:19 16:34 23:04 Creatinine Estim Creat Clear Calc Estimated GFR POC Glucose 135 H 120 H 132 H [facility] Screen CHAPARRITA Titer CHAPARRITA Titer 2 CHAPARRITA Titer 3 CH[facility]ITA Pattern CHAPARRITA Pattern 2 CHAPARRITA Pattern 3 COVID-19 ([facility]) COVID-19 Clin Com 10/24/23 10/24/23 10/24/23 05:57 11:34 11:38 Creatinine Estim Creat Clear Calc Estimated GFR POC Glucose 74 193 H [facility] Screen CHAPARRITA Titer CHAPARRITA Titer 2 [facility]APARRITA Titer 3 CH[facility]ITA Pattern CHAPARRITA Pattern 2 CHAPARRITA Pattern 3 COVID-19 ([facility]) Positive A COVID-19 Clin Com See Note 10/24/23 10/24/23 10/25/23 16:48 20:25 06:25 Creatinine Estim Creat Clear Calc Estimated GFR POC Glucose 89 115 65 [facility] Screen CHAPARRITA Titer CHAPARRITA Titer 2 CHAPARRITA Titer 3 CH[facility]ARRITA Pattern CHAPARRITA Pattern 2 CHAPARRITA Pattern 3 COVID-19 ([facility]) COVID-19 Clin Com 10/25/23 10/25/23 10/25/23 07:02 11:15 16:32 Creatinine Estim Creat Clear Calc Estimated GFR POC Glucose 105 126 H 107 [facility] Screen CHAPARRITA Titer CHAPARRITA Titer 2 CHAPARRITA Titer 3 CHAPARRITA Pattern CHAPARRITA Pattern 2 CHAPARRITA Pattern 3 COVID-19 ([facility]) COVID-19 Clin Com 10/25/23 10/26/23 10/26/23 19:52 06:09 06:44 Creatinine Estim Creat Clear Calc Estimated GFR POC Glucose 104 55 L* 86 [facility] Screen CHAPARRITA Titer CHAPARRITA Titer 2 CHAPARRITA Titer 3 CHAPARRITA Pattern CHAPARRITA Pattern 2 CHAPARRITA Pattern 3 COVID-19 ([facility]) COVID-19 Clin Com 10/26/23 10/26/23 10/26/23 11:27 16:08 19:51 Creatinine Estim Creat Clear Calc Estimated GFR POC Glucose 104 92 124 H [facility] Screen CHAPARRITA Titer CHAPARRITA Titer 2 CHAPARRITA Titer 3 CHAPARRITA Pattern CHAPARRITA Pattern 2 CHAPARRITA Pattern 3 COVID-19 ([facility]) COVID-19 Clin Com 10/27/23 10/27/23 10/27/23 05:49 06:43 11:37 Creatinine Estim Creat Clear Calc Estimated GFR POC Glucose 62 75 116 H CH[facility]ARRITA Screen CHAPARRITA Titer CHAPARRITA Titer 2 CHAPARRITA Titer 3 CHAPARRITA Pattern CHAPARRITA Pattern 2 CHAPARRITA Pattern 3 COVID-19 ([facility]) COVID-19 Clin Com 10/27/23 10/27/23 10/28/23 16:23 20:31 06:28 Creatinine Estim Creat Clear Calc Estimated GFR POC Glucose 80 157 H 82 [facility] Screen CHAPARRITA Titer CHAPARRITA Titer 2 CHAPARRITA Titer 3 CHAPARRITA Pattern CHAPARRITA Pattern 2 CHAPARRITA Pattern 3 COVID-19 ([facility]) COVID-19 Clin Com 10/28/23 10/28/23 10/28/23 11:46 16:18 20:25 Creatinine Estim Creat Clear Calc Estimated GFR POC Glucose 109 101 100 CHAPARRITA Screen CHAPARRITA Titer CHAPARRITA Titer 2 CHAPARRITA Titer 3 CHAPARRITA Pattern CHAPARRITA Pattern 2 CHAPARRITA Pattern 3 COVID-19 ([facility]) COVID-19 Clin Com 10/29/23 10/29/23 06:09 06:55 Creatinine Estim Creat Clear Calc Estimated GFR POC Glucose 61 104 CH[facility]ARRITA Screen CHAPARRITA Titer CHAPARRITA Titer 2 CHAPARRITA Titer 3 CHAPARRITA Pattern CHAPARRITA Pattern 2 CHAPARRITA Pattern 3 COVID-19 ([facility]) COVID-19 Clin Com 10/17/23 Unknown Urine clean catch - Clean Catch Midstream Urine Culture - Final Imaging Diagnostic Imaging Impressions Head CT 10/21/23 15:49 IMPRESSION: No acute intracranial process seen. Shoulder X-Ray 10/22/23 12:57 IMPRESSION: Normal right shoulder. DS: Summary Hospital Course Hospital Course: Mrs. Keating is a 68 year-old woman who self [place] [facility] [place] reporting itchiness and idea that she has bugs crawling on her skin. She has been at other EDs for same concern which she reports have not helped. Pt reports itchiness started about 2 months ago- daughter who is by her side confirms this. Pt reports she has been taking benadryl with no relief. She also reports feeling more confused, increase falls. She denies SI/HI. She does report seeing some of these bugs but are not there (such as when I met with her she is showing me her hand and parasite she is seeing even after clarifying if it was just feeling it or seeing it). While pt was in the ED, she was started on risperidone which was titrated to 1mg po BID. Also, since pt was on 2 antidepressants amitrityline and cymbalta and then addition of tramadol, there was concern of serotonergic overload. Pt was taper off cymbalta. Amitriptyline was decreased to 100mg po qhs. Also, due to concerns of frequent falls, mostly at night that pt reports not remembering, ambien was discontinued. Clonazepam was continued on lower dose 0.5mg po BID. On the unit, pt reports itchiness has almost resolved. She denies seeing bugs or parasites crawling on her skin. She denies SI/HI. She reports feeling depressed. She reports fair sleep. She also presents as tearful reporting she misses her adult children. She has been having migraines. No overt delusional content noted or reported. No side effects with current medications. Hospital course On the unit, Mrs. Keating was admitted on a CV and placed on 15 minutes checks for safety. Pt was started whole in the ED on risperidone for delusions of paracitosis but she has also been presenting with some paranoid delusions. She was taken off ambien due to suspected parasomnias (falling at night that she had no recollection of). Clonazepam was decreased to 0.5mg po BID. She was kept on amitriptyline 100mg po qhs for mood and migraines. Cymbalta was discontinued gradually. Her affect gradually presented as much brighter. No visual or auditory hallucinations. No delusions. She was sleeping and eating well. She was social with select peers and attended assigned groups. She did get covid while on the unit. She was started on paxlovid. No medical complications due to covid. No SI/HI. No signs of aggression towards self or others. Status at Discharge Cognitive/behavioral status at discharge: Pt with brighter, non labile mood. No SI/HI. No VH/AH. No delusions. No aggression towards self or others. Time Spent with Patient Time attestation: Total time managing care of this patient today ____ minutes. Time spent: Greater than 30 minutes Discharge Plan Discharge Anticipated Discharge Date/Time: 10/29/23 09:45 Patient Disposition: Home, Self-Care Discharge Diagnosis: Major Neurocognitive Disorder- vascular dementia Referrals: Yunier Mensah APRN [Registered Nurse] - 10/30/23 10:20 am (Please Note: Patient will be seen by Telehealth. Appointment is by Phone. Dr. Yunier Brand on 10/30/2023 @ 10:20am ) Ashwin Arzola III, MD [Physician] - 11/07/23 9:00 am (Appointment is in-person. ) Physician,Rajesh J [Primary Care Provider] - 1 Week Discharge Medications: New atorvastatin 80 mg Tablet 80 mg PO BEDTIME Qty: 0 0RF insulin glargine [Lantus U-100 Insulin] 100 unit/mL Solution 30 unit subcut DAILY Qty: 0 0RF clonazepam 0.5 mg Tablet 0.5 mg PO BID Qty: 0 0RF sennosides-docusate sodium [Senna Plus] 8.6-50 mg Tablet 1 tab PO BID Qty: 60 0RF aspirin 81 mg Tablet,Delayed Release (Dr/Ec) 81 mg PO DAILY Qty: 30 0RF amitriptyline 50 mg Tablet 100 mg PO BEDTIME Qty: 60 0RF magnesium oxide 400 mg (241.3 mg magnesium) Tablet 400 mg PO BEDTIME Qty: 30 0RF gabapentin 300 mg Capsule 300 mg PO BID Qty: 60 0RF omeprazole 20 mg Capsule,Delayed Release(Dr/Ec) 20 mg PO DAILY@0630 Qty: 0 0RF metoprolol succinate 25 mg Tablet Extended Release 24 Hr 25 mg PO DAILY Qty: 0 0RF Protocol: Hold for SBP/HR < HOLD for SBP < : 90 HOLD for HR < : 60 fluticasone propionate 50 mcg/actuation [place],Suspension 1 spray intranasal DAILY Qty: 0 0RF metformin 500 mg Tablet Extended Release 24 Hr 500 mg PO BID Qty: 60 0RF risperidone 1 mg Tablet 1 mg PO BID Qty: 60 0RF loratadine 10 mg Tablet 10 mg PO DAILY Qty: 0 0RF pyridoxine (vitamin B6) 50 mg Tablet 50 mg PO DAILY Qty: 30 0RF montelukast 10 mg Tablet 10 mg PO BEDTIME Qty: 30 0RF Continued albuterol sulfate 2.5 mg /3 mL (0.083 %) solution for nebulization 1 vial inhalation Q4H PRN (Reason: wheezing) lbqeaciouz-cjqwsmszzjglu-nfla 50-325-40 mg tablet 1 tab PO Q6H PRN (Reason: Headache) (DME) lancets [OneTouch Delica Plus Lancet] 33 gauge misc See Rx Instructions .ROUTE BID Qty: 100 Rx Instructions: As directed albuterol sulfate 90 mcg/actuation HFA aerosol inhaler 2 puff inhalation Q4H PRN (Reason: wheezing) (DME) OneTouch Ultra Test Strip See Rx Instructions .ROUTE BID Qty: 10 Rx Instructions: As directed Discontinued gabapentin 300 mg capsule 300 mg PO BID clonazepam [Klonopin] 1 mg tablet 1 mg PO BEDTIME Qty: 10 0RF Rx Instructions: administer 30 minutes before bedtime clonazepam 0.5 mg tablet 0.5 mg PO BID PRN (Reason: Anxiety) tramadol 50 mg tablet 50 mg PO Q8H PRN (Reason: Pain) metformin 500 mg tablet extended release 24 hr 500 mg PO BID loratadine 10 mg tablet 10 mg PO DAILY ondansetron 4 mg tablet,disintegrating 4 mg PO Q8H PRN (Reason: nausea and vomiting) Qty: 10 0RF montelukast 10 mg tablet 10 mg PO BEDTIME insulin glargine [Lantus Solostar U-100 Insulin] 100 unit/mL (3 mL) insulin pen 30 unit subcut DAILY duloxetine 60 mg capsule,delayed release(DR/EC) 60 mg PO DAILY duloxetine 20 mg capsule,delayed release(DR/EC) 20 mg PO DAILY zolpidem 10 mg tablet 10 mg PO BEDTIME metoprolol succinate 25 mg tablet extended release 24 hr 25 mg PO DAILY omeprazole 20 mg capsule,delayed release(DR/EC) 20 mg PO DAILY aspirin 81 mg tablet,delayed release (DR/EC) 81 mg PO DAILY amitriptyline 150 mg tablet 150 mg PO BEDTIME atorvastatin 80 mg tablet 80 mg PO BEDTIME Discharge Orders: Discharge Order (Routine); Ordered 10/29/23 Ordered By: Suze Gannon Diet: Diabetic diet Activity on Discharge: As tolerated Stand Alone Forms: Patient Portal Discharge page, Community Support Care Plan Goals: 1. No signs of delusions or psychosis 2. No SI/HI. 3. brighter, non labile mood Health Concerns: Follow up with PCP for routine care. Take medications as prescribed. Melyssa necesita ayuda de la umang para manejar los medicamentos Plan of Treatment: 1. Take medications as prescribed. Assessment: Pt with a brighter, non labile mood. No psychosis or delusions. Pt sleeping and eating through the night. No signs of aggression towards self or others. Discharge Date/Time: 10/29/23 14:25
[2023-10-29 11:28] LABS: Glucose, Whole Blood 118 mg/dL (60-115)
== END 2023-10-29 14:25 | disposition home or self-care (01) | DRG 885 ==
LOC: HO.ED 10-17 18:28 → HO.PGERI 10-20 12:18
PROVIDERS: Admitting Provider Social Worker; Emergency Provider Emergency Medicine; Visit Provider Social Worker
DX: F22 Delusional disorders (principal); U07.1 COVID-19; E11.9 Type 2 diabetes mellitus without complications; F01.50 Vascular dementia, unspecified severity, without behavioral disturbance, psychotic disturbance, mood disturbance, and anxiety; Z79.4 Long term (current) use of insulin; Z79.82 Long term (current) use of aspirin; Z79.84 Long term (current) use of oral hypoglycemic drugs; Z79.899 Other long term (current) drug therapy
CPT/HCPCS: 36415; 70450; 73030; 80053; 80143; 80179; 80307; 81001; 82565; 82607; 82746; 82947; 83540; 84443; 85025; 86038; 86039; 86431; 86592; 87086; 87389; 87635; 93005; 99285; S9485

== ENCOUNTER → 2023-10-16 07:38 | Outpatient (BNV) | payer MEDICARE, SELFPAY | PROVIDERS: Visit Provider Internal Medicine Cardiovascular Disease | DX: R00.0 Tachycardia, unspecified (principal) | CPT/HCPCS: 93010 ==

== ENCOUNTER → 2023-10-16 20:44 | Outpatient (BNV) | payer OTHER, SELFPAY | PROVIDERS: Emergency Provider Emergency Medicine; Visit Provider Social Worker | DX: F22 Delusional disorders (principal) | CPT/HCPCS: 90792; 99231; 99232; 99239; 99285 ==

== ENCOUNTER → 2023-10-17 09:44 | Outpatient (BNV) | payer MEDICARE, SELFPAY | PROVIDERS: Emergency Provider Emergency Medicine; Visit Provider Internal Medicine Cardiovascular Disease | DX: R07.9 Chest pain, unspecified (principal) | CPT/HCPCS: 93010 ==

== ENCOUNTER 2023-10-20 12:17 | Outpatient (BNV) | payer MEDICARE, SELFPAY | END 2023-10-21 14:00 | PROVIDERS: Admitting Provider Social Worker; Emergency Provider Emergency Medicine; Visit Provider Internal Medicine Cardiovascular Disease | DX: M62.81 Muscle weakness (generalized) (principal) | CPT/HCPCS: 93010 ==

== ENCOUNTER 2023-11-08 15:26 | Emergency (ER) | payer MEDICARE, SELFPAY ==
--- NOTE | ~2023-11-08 | XR_ITS ---
EXAMINATION: XR CHEST CLINICAL INFORMATION: Shortness of breath and cough COMPARISON: Chest x-ray 05/22/2023. TECHNIQUE: Frontal view of the chest was obtained. FINDINGS: The lungs are well-expanded and clear. Heart size is normal. Pulmonary vascularity is normal. There is moderate spondylosis dorsal spine. No aggressive lytic and sclerotic process seen. XR/XR chest 1V IMPRESSION: Unremarkable chest examination.
--- NOTE | ~2023-11-08 | CT_ITS ---
EXAMINATION: CTA OF THE HEAD AND NECK CLINICAL INFORMATION: Acute altered mental status. COMPARISON: Head CT from 11/08/[address] angiogram dated 07/25/2023. TECHNIQUE: Test bolus sequences followed by intravenous administration 70 mL of Omnipaque. Helical imaging was performed in the axial plane from the mediastinum to the skull vertex. Delayed postcontrast imaging of the head was also performed. The data was processed at the industrial technologist's workstation for generation of MIP sequences. Three-dimensional volume rendered reformatted images were also generated at an offline 3-D workstation. Stenoses are assessed in accordance with NASCET criteria unless otherwise indicated. This CT examination was performed using dose optimization techniques as appropriate, variously including the following: *Automated exposure control *Adjustment of mA and/or kV according to patient size (this includes techniques or standardized protocols for targeted exams where dose is matched to indication/reason for exam; i.e. extremities or head) *Use of iterative reconstruction technique DLP: 1446 mGy-cm. FINDINGS: CTA neck: There are mild to moderate atherosclerotic wall calcifications along the aortic arch with mild stenotic narrowing at the origin of the left subclavian artery. The common carotid arteries are widely patent. There are atherosclerotic wall calcifications at the carotid bifurcations, without stenotic narrowing of the internal carotid arteries. The remainder of the cervical internal carotid arteries are normal. The vertebral arteries opacify normally and are of normal caliber. The soft tissues of the neck are unremarkable. Moderate spondylosis noted at the C5-C6 level. Multilevel hypertrophic facet arthropathy noted, most severe on the left side at the C2-C3 level. Mild scattered subsegmental atelectatic changes visible in the lungs. CTA head: The intradural vertebral arteries and basilar artery are normal. The posterior cerebral arteries are patent. The internal carotid arteries are relatively normal in caliber with mild atherosclerotic wall calcifications. The GEOFF and MCA vascular complexes bilaterally are normal in caliber. A 3 x 3.5 mm laterally projecting aneurysm at the right MCA bifurcation is stable. There is no abnormal parenchymal or leptomeningeal enhancement. The venous sinuses opacify normally. There are severe degenerative changes of the right temporomandibular joint. CT/CT angio head neck stroke IMPRESSION: No hemodynamically significant stenosis or occlusion in the cervical or intracranial vasculature at the level of the [place]. Scattered atherosclerotic wall calcifications as described. Stable 3 x 3.5 mm laterally projecting right MCA bifurcation aneurysm. Imaging findings reported to KATHRYN Alanis at 4:43 PM on 11/08/2023.
--- NOTE | ~2023-11-08 | CT_ITS ---
EXAMINATION: CT HEAD WITHOUT CONTRAST (STROKE PROTOCOL) CLINICAL INFORMATION: Stroke protocol. Acute altered mental status. Rule out bleed. COMPARISON: CT scan of the head dated 10/21/2023, 08/06/[address] angiogram of the head dated 07/25/2023. TECHNIQUE: Contiguous axial imaging was performed from the skull base to vertex without intravenous administration of contrast. This CT examination was performed using dose optimization techniques as appropriate, variously including the following: *Automated exposure control *Adjustment of mA and/or kV according to patient size (this includes techniques or standardized protocols for targeted exams where dose is matched to indication/reason for exam; i.e. extremities or head) *Use of iterative reconstruction technique DLP: 768.7 mGy-cm FINDINGS: There is no evidence of acute intracranial hemorrhage or territorial infarction. No abnormal mass-effect or midline shift is seen. [place] to white matter differentiation is well preserved. No extra-axial fluid collections are identified. The patient has a known saccular aneurysm projecting laterally from the right MCA bifurcation. This is suboptimally evaluated on noncontrast exam but appears grossly similar in size when compared to the CT angiogram of the head from 07/25/2023. No surrounding free fluid/hemorrhage is noted. No definite hyperdense MCA sign is seen to suggest a large vessel occlusion on noncontrast exam. The ventricles are normal in size. There is no abnormal attenuation within the brain parenchyma. Mild atherosclerotic calcifications of the vertebrobasilar arteries is seen. The osseous structures and soft tissues are normal. The patient is status post bilateral ocular lens extractions. There is partial opacification of the right mastoid air cells. The left mastoid air cells and visualized portions of the paranasal sinuses are well-aerated. CT/CT head for stroke IMPRESSION: * No acute intracranial pathology. * Known saccular aneurysm projecting laterally from the right MCA bifurcation is suboptimally evaluated on noncontrast exam but appears grossly similar in size when compared to the CT angiogram of the head from 07/25/2023. * Partial opacification of the right mastoid air cells. This critical result was discussed with Dr. Abbe Moran at 1602 hours on 11/08/2023. It was ascertained that the content and urgency of the report was understood at the time of direct communication.
[2023-11-08 15:33] VITALS: BP 113/56; BP 153/77; PULSE 109; PULSE 92; RESP 18; O2SAT 96; O2SAT 97; BMI 30.4
--- NOTE | 2023-11-08 15:33 | ECG_ITS ---
Test Reason : WEAK Blood Pressure : / mmHG Vent. Rate : 093 BPM Atrial Rate : 093 BPM P-R Int : 164 ms QRS Dur : 074 ms QT Int : 352 ms P-R-T Axes : 069 043 037 degrees QTc Int : 437 ms Normal sinus rhythm Normal ECG When compared with ECG of 21-OCT-2023 14:00, No significant change was found Referred By: Abbe Moran Electronically Signed By:Michael Cano
[2023-11-08 15:47] LABS: MANUAL DIFF FLAG NO
[2023-11-08 15:49] LABS: VBG Base Excess 7.9 mmol/L; VBG HCO3 31 mmol/L (22-26); VBG pCO2 37 mmHg; VBG pH 7.52 (7.32-7.43); VBG pO2 70 mmHg
[2023-11-08 15:49] LABS: Basophils Percent Auto 0.3 % (0-2); Eosinophils Absolute Auto 0.4 X10*3/uL (0.0-0.4); Eosinophils Percent Auto 3.5 % (0-4); Hematocrit 35.4 % (37.0-47.0); Hemoglobin 11.1 g/dl (12.0-16.0); Imm Gran Abs Auto 0.03 X10*3/uL (0.00-0.03); Imm Gran Pct Auto 0.3 % (0.0-0.4); Lymphocytes Absolute Auto 1.3 X10*3/uL (1.2-4.9); Lymphocytes Percent Auto 13.2 % (20-40); Mean Corpuscular HGB Conc 31.4 g/dl (31.0-35.0); Mean Corpuscular Volume 82.9 fL (80.0-98.0); Mean Platelet Volume 10.9 fL (9.4-12.3); Monocytes Absolute Auto 0.8 X10*3/uL (0.1-1.2); Monocytes Percent Auto 7.4 % (2-11); Neutrophils Absolute Auto 7.6 x10*3/uL (2.0-8.3); Neutrophils Percent Auto 75.3 % (45-73); Platelet Count 245 X10*3/uL (160-400); Red Blood Count 4.27 X10*6/uL (4.20-5.50); White Blood Count 10.1 X10*3/uL (4.8-10.8)
[2023-11-08 15:52] LABS: Venous Blood Gas Refer to POC result
[2023-11-08] MEDS: iohexoL 350 MG/ML 100 ML INFUS..BTL 70 ML IV (15:57)
[2023-11-08 16:00] LABS: Prothrombin Time 12.1 SEC (11.1-13.3)
[2023-11-08 16:03] LABS: Anion Gap 15 (12-20); Blood Urea Nitrogen 9 mg/dL (9-16); Calcium 9.4 mg/dL (8.4-10.2); Carbon Dioxide 27 mmol/L (22-29); Chloride 105 mmol/L (96-108); Estimated Glomerular Filt Rate > 60; Glucose Random 129 mg/dL (60-115); Partial Thromboplastin Time 27.7 SEC (26.0-36.4); Potassium 3.6 mmol/L (3.3-5.1); Sodium 143 mmol/L (135-145)
--- NOTE | 2023-11-08 16:08 | ED_ITS ---
HPI - General Adult General Chief complaint: Altered Mental Status Stated complaint: Stroke alert, agonal breathing, L facial droop Time Seen by Provider: 11/08/23 15:31 History of Present Illness HPI narrative: The patient is a 68-year-old woman who was brought from her home because of an altered mental status. Apparently her family had spoken to her on the phone sometime early this morning. According to paramedics the report was that she had sounded fairly normal on the phone this morning. However later, when the family was at the bedside, the family said that she sounded somewhat confused this morning at around 09:00. She was well yesterday but did not sound normal this morning. On arrival in the emergency room the patient had a very diminished level of consciousness and was nonverbal and could not give any additional history. A blood sugar on the scene was 140. Related Data Home Medications Medication Instructions Recorded Confirmed albuterol sulfate 90 mcg/actuation 2 puff inhalation Q4H PRN wheezing 09/27/22 10/17/23 aerosol inhaler blood sugar diagnostic (OneTouch #10 ea 09/27/22 10/20/23 Ultra Test strips) lancets 33 gauge (OneTouch Delica #100 ea 09/27/22 10/20/23 Plus Lancet) albuterol sulfate 2.5 mg/3 mL 1 vial inhalation Q4H PRN wheezing 12/16/22 10/17/23 (0.083 %) solution for nebulization evdokpzusd-arkhnlriulzes-apbalhqr 1 tab PO Q6H PRN Headache 10/17/23 10/17/23 50 mg-325 mg-40 mg tablet Previous Rx's Medication Instructions Recorded amitriptyline 50 mg tablet 100 mg (2 x 50 mg) PO BEDTIME #60 10/29/23 tabs aspirin 81 mg tablet,delayed 81 mg PO DAILY #30 tabs 10/29/23 release atorvastatin 80 mg tablet 80 mg PO BEDTIME #0 tabs 10/29/23 clonazepam 0.5 mg tablet 0.5 mg PO BID #0 tabs 10/29/23 fluticasone propionate 50 1 spray intranasal DAILY #0 grams 10/29/23 mcg/actuation nasal spray,suspension gabapentin 300 mg capsule 300 mg PO BID #60 caps 10/29/23 insulin glargine 100 unit/mL 30 unit (0.3 mL) subcut DAILY #0 mL 10/29/23 subcutaneous solution (Lantus U-100 Insulin) loratadine 10 mg tablet 10 mg PO DAILY #0 tabs 10/29/23 magnesium oxide 400 mg (241.3 mg 400 mg PO BEDTIME #30 tabs 10/29/23 magnesium) tablet metformin 500 mg tablet,extended 500 mg PO BID #60 tabs 10/29/23 release 24 hr metoprolol succinate 25 mg 25 mg PO DAILY #0 tabs 10/29/23 tablet,extended release 24 hr montelukast 10 mg tablet 10 mg PO BEDTIME #30 tabs 10/29/23 omeprazole 20 mg capsule,delayed 20 mg PO DAILY@0630 #0 caps 10/29/23 release pyridoxine (vitamin B6) 50 mg 50 mg PO DAILY #30 tabs 10/29/23 tablet risperidone 1 mg tablet 1 mg PO BID #60 tabs 10/29/23 sennosides 8.6 mg-docusate sodium 1 tab PO BID #60 tabs 10/29/23 50 mg tablet (Senna Plus) Allergies Allergy/AdvReac Type Severity Reaction Status Date / Time Penicillins Allergy Mild Swelling Verified 09/10/23 04:07 Review of Systems 2 Review of Systems: Yes Unobtainable due to mental status PMFSH Past Medical History Medical History DJD (degenerative joint disease) COPD (chronic obstructive pulmonary disease) Bipolar disorder CTS (carpal tunnel syndrome) Hx of rheumatoid arthritis Diabetic neuropathy Urinary incontinence Aneurysm of middle cerebral artery Pulmonary nodules CHF (congestive heart failure) Palpitations Migraine History of COVID-19 Mild aortic stenosis Asthma Insulin dependent type 2 diabetes mellitus Mixed hyperlipidemia Mood disorder Essential hypertension Surgical History Hx of cataract surgery H/O: hysterectomy Hx of cholecystectomy History of carpal tunnel release Family History Family History Mother Myocardial infarction Father Myocardial infarction Sister Breast cancer Brother Spleen cancer Social History Social History Household Members: None Housing: Apartment Do you presently have visiting nurse or other home services: No Unable to assess alcohol history related to: Unknown Alcohol intake: never Patient Tobacco Use Status: Never used Tobacco Tobacco use type: Cigarette Cigarette Packs Per Day: 3 Cigarettes Per Day: 4 Years Smoked: [id number] e-Cigarette/Vaping Use: Never Used Second Hand Smoke Exposure: No Advance Directives Date on File: 12/16/22 service: No Current occupational status: retired Sexual orientation: Straight/Heterosexual Physical Exam ED Vital Signs: Vital Signs - 24 hr 11/08/23 15:33 11/08/23 16:09 Temperature 98.1 F Pulse Rate 92 94 Respiratory Rate 18 20 Blood Pressure 153/77 H 169/83 H Pulse Oximetry 96 97 Oxygen Delivery Method Room Air Nasal Cannula Oxygen Flow Rate 2 BMI result Body Mass Index 30.4 Const Other: The patient is a frail looking 68-year-old who was not responsive to verbal stimuli. She withdrew her extremities and grimaced to painful stimuli. Occasionally she seemed to have fits of coughing. HENMT Other: No obvious facial asymmetry. She grimaced symmetrically. Airway was clear. Eyes Other: Pupils were 3 mm and equal. She had a slight right gaze preference but she did not have a fixed gaze. Neck Other: No nuchal rigidity. No obvious JVD. Resp Other: Slight rhonchi bilaterally. Cardio Rate: regular rate Rhythm: regular rhythm Heart sounds: S1 normal heart sound present and S2 normal heart sound present GI Other: Abdomen is soft and not apparently tender. Skin Other: Skin was pale and dry. No diaphoresis. Neuro Other: The patient was unresponsive to verbal stimuli. She grimaced and withdrew to painful stimuli but this did not really wake her. There was no obvious asymmetry to her tone. Toes were upgoing bilaterally. Extrem Other: No peripheral edema Medications Administered Discontinued Medications Generic Name Dose Route Start Last Admin Trade Name Freq PRN Reason Stop Dose Admin Iohexol 70 ml 11/08/23 15:56 11/08/23 15:57 Iohexol 350 Mg/Ml 100 Ml Infus..Btl IV 11/08/23 15:57 70 ml ONCE ONE Administration Medical Decision Making Medical Decision Making MDM Narrative: The patient presented as a fairly undifferentiated altered mental status with a diminished level of alertness. No response to verbal stimuli but withdrawal and grimace to painful stimuli. Blood sugar had been normal at the scene with paramedics. No obvious lateralizing findings. She had a noncontrast head CT and CT angiogram of the head and neck. There is a 3 x 3.5 mm aneurysm at the right MCA bifurcation which is stable compared to previous imaging. Otherwise no definite acute findings. Specifically no hemorrhage, no obvious signs of early ischemia, and no large vessel occlusion. Venous blood gas showed an unremarkable pCO2. The patient was signed out to the oncoming emergency physician at change of shift pending further workup. The patient is not a thrombolytic candidate as her last known well time was more than 4-1/2 hours. Additionally it is not clear that this is a stroke presentation. Lab Data 11/08/23 15:36 11/08/23 15:36 Labs: Lab Results 11/08/23 11/08/23 11/08/23 Range/Units 15:34 15:36 15:43 WBC 10.1 (4.8-10.8) X10*3/uL RBC 4.27 (4.20-5.50) X10*6/uL Hgb 11.1 L (12.0-16.0) g/dl Hct 35.4 L (37.0-47.0) % MCV 82.9 (80.0-98.0) fL MCH 26.0 L (27.0-33.0) pg MCHC 31.4 (31.0-35.0) g/dl RDW 19.0 H (11.0-16.0) % Plt Count 245 (160-400) X10*3/uL MPV 10.9 (9.4-12.3) fL Immature Gran % (Auto) 0.3 (0.0-0.4) % Neut % (Auto) 75.3 H (45-73) % Lymph % (Auto) 13.2 L (20-40) % Ross % (Auto) 7.4 (2-11) % Eos % (Auto) 3.5 (0-4) % Baso % (Auto) 0.3 (0-2) % Lymph # (Auto) 1.3 (1.2-4.9) X10*3/uL Ross # (Auto) 0.8 (0.1-1.2) X10*3/uL Eos # (Auto) 0.4 (0.0-0.4) X10*3/uL Baso # (Auto) 0.0 (0.0-0.2) X10*3/uL Abs Immat Gran (auto) 0.03 (0.00-0.03) X10*3/uL Absolute Neuts (auto) 7.6 (2.0-8.3) x10*3/uL Absolute Nucleated RBC 0.000 (0.0-0.012) X10*3/uL Nucleated RBC % (auto) 0.0 (0.0-0.2) /100WBC PT 12.1 (11.1-13.3) SEC Whole Blood PT (11.1-13.5) sec INR 1.0 (0.9-1.1) Whole Blood INR (0.9-1.1) APTT 27.7 (26.0-36.4) SEC VBG pH 7.52 H (7.32-7.43) VBG pCO2 37 mmHg VBG pO2 70 mmHg VBG HCO3 31 H (22-26) mmol/L VBG O2 Saturation 94.0 % VBG Base Excess 7.9 mmol/L Sodium 143 (135-145) mmol/L Potassium 3.6 (3.3-5.1) mmol/L Chloride 105 (96-108) mmol/L Carbon Dioxide 27 (22-29) mmol/L Anion Gap 15 (12-20) BUN 9 (9-16) mg/dL Creatinine 0.70 (0.5-1.4) mg/dL Estim Creat Clear Calc 72.0 Estimated GFR > 60 POC Glucose 137 H (60-115) mg/dL Random Glucose 129 H (60-115) mg/dL Lactic Acid 0.8 (0.5-2.0) mmol/L Calcium 9.4 (8.4-10.2) mg/dL Total Creatine Kinase 60 (26-140) U/L Troponin I High Sens 30.9 H (<3.5-17.0) ng/L B-Natriuretic Peptide 36 (<100) pg/mL Urine Color Urine Appearance Urine pH (5.0-9.0) Ur Specific [place] (1.005-1.025) Urine Protein (Neg-Trace) mg/dL Urine Glucose (UA) (Negative) mg/dL Urine Ketones (Negative) mg/dL Urine Blood (Negative) Urine Nitrite (Negative) Ur Leukocyte Esterase (Negative) Urine Opiates Screen (Not Detect) Urine Fentanyl Screen (Not Detect) Ur Barbiturates Screen (Not Detect) Ur Phencyclidine Scrn (Not Detect) Ur Amphetamines Screen (Not Detect) U Benzodiazepines Scrn (Not Detect) Urine Cocaine Screen (Not Detect) U Marijuana (THC) Screen (Not Detect) 11/08/23 11/08/23 Range/Units 15:55 16:29 WBC (4.8-10.8) X10*3/uL RBC (4.20-5.50) X10*6/uL Hgb (12.0-16.0) g/dl Hct (37.0-47.0) % MCV (80.0-98.0) fL MCH (27.0-33.0) pg MCHC (31.0-35.0) g/dl RDW (11.0-16.0) % Plt Count (160-400) X10*3/uL MPV (9.4-12.3) fL Immature Gran % (Auto) (0.0-0.4) % Neut % (Auto) (45-73) % Lymph % (Auto) (20-40) % Ross % (Auto) (2-11) % Eos % (Auto) (0-4) % Baso % (Auto) (0-2) % Lymph # (Auto) (1.2-4.9) X10*3/uL Ross # (Auto) (0.1-1.2) X10*3/uL Eos # (Auto) (0.0-0.4) X10*3/uL Baso # (Auto) (0.0-0.2) X10*3/uL Abs Immat Gran (auto) (0.00-0.03) X10*3/uL Absolute Neuts (auto) (2.0-8.3) x10*3/uL Absolute Nucleated RBC (0.0-0.012) X10*3/uL Nucleated RBC % (auto) (0.0-0.2) /100WBC PT (11.1-13.3) SEC Whole Blood PT 13.7 H (11.1-13.5) sec INR (0.9-1.1) Whole Blood INR 1.1 (0.9-1.1) APTT (26.0-36.4) SEC VBG pH (7.32-7.43) VBG pCO2 mmHg VBG pO2 mmHg VBG HCO3 (22-26) mmol/L VBG O2 Saturation % VBG Base Excess mmol/L Sodium (135-145) mmol/L Potassium (3.3-5.1) mmol/L Chloride (96-108) mmol/L Carbon Dioxide (22-29) mmol/L Anion Gap (12-20) BUN (9-16) mg/dL Creatinine (0.5-1.4) mg/dL Estim Creat Clear Calc Estimated GFR POC Glucose (60-115) mg/dL Random Glucose (60-115) mg/dL Lactic Acid (0.5-2.0) mmol/L Calcium (8.4-10.2) mg/dL Total Creatine Kinase (26-140) U/L Troponin I High Sens (<3.5-17.0) ng/L B-Natriuretic Peptide (<100) pg/mL Urine Color Yellow Urine Appearance Clear Urine pH 7.5 (5.0-9.0) Ur Specific [place] >= 1.030 H (1.005-1.025) Urine Protein Negative (Neg-Trace) mg/dL Urine Glucose (UA) Negative (Negative) mg/dL Urine Ketones 15 (Negative) mg/dL Urine Blood Negative (Negative) Urine Nitrite Negative (Negative) Ur Leukocyte Esterase Negative (Negative) Urine Opiates Screen Not Detected (Not Detect) Urine Fentanyl Screen Not Detected (Not Detect) Ur Barbiturates Screen POSITIVE H (Not Detect) Ur Phencyclidine Scrn Not Detected (Not Detect) Ur Amphetamines Screen Not Detected (Not Detect) U Benzodiazepines Scrn Not Detected (Not Detect) Urine Cocaine Screen Not Detected (Not Detect) U Marijuana (THC) Screen Not Detected (Not Detect) Discharge Plan Discharge Clinical Impression: Altered mental status Patient Disposition: Still a Patient Prescriptions: No Action albuterol sulfate 2.5 mg /3 mL (0.083 %) solution for nebulization 1 vial inhalation Q4H PRN (Reason: wheezing) orudwkhcdn-aawrekimrwuhv-feww 50-325-40 mg tablet 1 tab PO Q6H PRN (Reason: Headache) atorvastatin 80 mg Tablet 80 mg PO BEDTIME Qty: 0 0RF insulin glargine [Lantus U-100 Insulin] 100 unit/mL Solution 30 unit subcut DAILY Qty: 0 0RF clonazepam 0.5 mg Tablet 0.5 mg PO BID Qty: 0 0RF sennosides-docusate sodium [Senna Plus] 8.6-50 mg Tablet 1 tab PO BID Qty: 60 0RF aspirin 81 mg Tablet,Delayed Release (Dr/Ec) 81 mg PO DAILY Qty: 30 0RF amitriptyline 50 mg Tablet 100 mg PO BEDTIME Qty: 60 0RF magnesium oxide 400 mg (241.3 mg magnesium) Tablet 400 mg PO BEDTIME Qty: 30 0RF gabapentin 300 mg Capsule 300 mg PO BID Qty: 60 0RF omeprazole 20 mg Capsule,Delayed Release(Dr/Ec) 20 mg PO DAILY@0630 Qty: 0 0RF metoprolol succinate 25 mg Tablet Extended Release 24 Hr 25 mg PO DAILY Qty: 0 0RF Protocol: Hold for SBP/HR < HOLD for SBP < : 90 HOLD for HR < : 60 fluticasone propionate 50 mcg/actuation [place],Suspension 1 spray intranasal DAILY Qty: 0 0RF metformin 500 mg Tablet Extended Release 24 Hr 500 mg PO BID Qty: 60 0RF risperidone 1 mg Tablet 1 mg PO BID Qty: 60 0RF loratadine 10 mg Tablet 10 mg PO DAILY Qty: 0 0RF pyridoxine (vitamin B6) 50 mg Tablet 50 mg PO DAILY Qty: 30 0RF montelukast 10 mg Tablet 10 mg PO BEDTIME Qty: 30 0RF (DME) lancets [OneTouch Delica Plus Lancet] 33 gauge misc See Rx Instructions .ROUTE BID Qty: 100 Rx Instructions: As directed albuterol sulfate 90 mcg/actuation HFA aerosol inhaler 2 puff inhalation Q4H PRN (Reason: wheezing) (DME) OneTouch Ultra Test Strip See Rx Instructions .ROUTE BID Qty: 10 Rx Instructions: As directed
[2023-11-08 16:09] VITALS: BP 169/83; PULSE 94; RESP 20; TEMP 36.7; O2SAT 97
[2023-11-08 16:10] LABS: Troponin-I High Sensitivity 30.9 ng/L (<3.5-17.0)
[2023-11-08 16:13] LABS: Stroke Lab Use COMPLETE
[2023-11-08 16:18] LABS: Lactic Acid 0.8 mmol/L (0.5-2.0)
[2023-11-08 16:30] LABS: Prothrombin Time Whole Bld POC 13.7 sec (11.1-13.5); ~PT, ~INR - Anti Coag Clinic 1.1 (0.9-1.1)
[2023-11-08 16:31] LABS: Glucose, Whole Blood 137 mg/dL (60-115)
--- NOTE | 2023-11-08 16:35 | PC.NURSE ---
upon return from ct scan, pt alert, able to respond to yes or no questions. follows simple commands, able to raise both arms independently. urine obtained, EKG done, labs drawn, 2 IVs inserted. pt reports pain all over body.
[2023-11-08 16:39] LABS: B Type Natriuretic Peptide 36 pg/mL (<100)
[2023-11-08 16:44] LABS: Amphetamine Screen Urine Not Detected (Not Detect); Appearance Urine Clear; Barbiturates, Urine POSITIVE (Not Detect); Benzodiazepines Screen Urine Not Detected (Not Detect); Cannabinoid Screen Urine Not Detected (Not Detect); Cocaine Screen Urine Not Detected (Not Detect); Color Urine Yellow; Fentanyl, urine Not Detected (Not Detect); Glucose Urine UA Negative (Negative); Leukocyte Esterase Urine Negative (Negative); Nitrite Urine Negative (Negative); Opiate Screen Urine Not Detected (Not Detect); PH 7.5 (5.0-9.0); Phencyclidine Screen Urine Not Detected (Not Detect); Specific Gravity - Urine >= 1.030 (1.005-1.025); Urine Blood Negative (Negative); Urine Ketones 15 mg/dL (Negative); Urine Protein Negative (Neg-Trace)
[2023-11-08 17:55] VITALS: BP 136/72; PULSE 89; RESP 12; O2SAT 99
[2023-11-08 18:19] LABS: COVID-19 Test Negative (Negative); IDNOW Serial# 58CA691E
[2023-11-08 18:20] LABS: IDNOW Serial# 6674DD1D; Influenza A Negative (Negative); Influenza B2 Negative (Negative)
[2023-11-08 19:12] VITALS: BP 140/64; PULSE 96; RESP 16; O2SAT 100
[2023-11-08 19:58] LABS: Ammonia 24 umol/L (13-55)
[2023-11-08 21:02] VITALS: BP 138/66; PULSE 98; RESP 16; TEMP 36.1; O2SAT 96
--- NOTE | 2023-11-08 21:04 | PC.NURSE ---
Kings Chen (daughter) [phone] states she is HCP
--- NOTE | 2023-11-09 00:15 | PC.NURSE ---
Assumed care of pt. pt theresa mendez stretcher, eyes closed, respirations even and unlabored. No acute distress at this time. Pending CARE evaluation.
[2023-11-09 03:59] VITALS: BP 145/75; PULSE 84; RESP 18; O2SAT 97
[2023-11-09 05:46] VITALS: BP 148/72; PULSE 95; RESP 13; O2SAT 96
[2023-11-09 08:20] VITALS: BP 129/79; PULSE 90; RESP 16; O2SAT 98
--- NOTE | 2023-11-09 08:21 | PC.NURSE ---
Pt awake, alert and answering questions. Breathing even and unlabored. Skin warm and dry. Pt reports slight headache at this time. Periwick removed and pt cleaned. Care team at the bedside at this time.
[2023-11-09 10:35] VITALS: BP 158/62; PULSE 90; RESP 18; O2SAT 95
--- NOTE | 2023-11-09 12:15 | PC.NURSE ---
Care team back to bedside for additional assessment to formulate dispo Family at bedside at this time as well.
== END 2023-11-09 13:30 | disposition home or self-care (01) ==
PROVIDERS: Emergency Medicine; Emergency Provider Emergency Medicine; PCP Internal Medicine
DX: R41.82 Altered mental status, unspecified (principal); F41.9 Anxiety disorder, unspecified; Z11.52 Encounter for screening for COVID-19; F22 Delusional disorders; F09 Unspecified mental disorder due to known physiological condition; F39 Unspecified mood [affective] disorder; E11.9 Type 2 diabetes mellitus without complications; I11.0 Hypertensive heart disease with heart failure; I50.9 Heart failure, unspecified; E78.5 Hyperlipidemia, unspecified; Z79.82 Long term (current) use of aspirin; Z79.02 Long term (current) use of antithrombotics/antiplatelets; Z79.899 Other long term (current) drug therapy; Z79.4 Long term (current) use of insulin; Z79.84 Long term (current) use of oral hypoglycemic drugs
CPT/HCPCS: 36415; 70450; 70496; 70498; 71045; 80048; 80307; 81003; 82140; 82550; 82803; 82947; 83605; 83880; 84484; 85025; 85610; 85730; 87502; 87635; 93005; 99285; Q9967; S9485

== ENCOUNTER → 2023-11-08 15:33 | Outpatient (BNV) | payer MEDICARE, SELFPAY | PROVIDERS: Emergency Provider Emergency Medicine; PCP Internal Medicine; Visit Provider Internal Medicine Cardiovascular Disease | DX: M62.81 Muscle weakness (generalized) (principal) | CPT/HCPCS: 93010 ==

== ENCOUNTER 2023-11-15 19:52 | Inpatient (IN) | payer OTHER, SELFPAY ==
--- NOTE | 2023-11-15 | ECG_ITS ---
Test Reason : PALPITATIONS Blood Pressure : / mmHG Vent. Rate : 084 BPM Atrial Rate : 084 BPM P-R Int : 148 ms QRS Dur : 084 ms QT Int : 368 ms P-R-T Axes : 057 -12 009 degrees QTc Int : 434 ms Normal sinus rhythm Normal ECG When compared with ECG of 08-NOV-2023 16:24, Inverted T waves have replaced nonspecific T wave abnormality in Inferior leads Referred By: Generic ED Physician Electronically Signed By:ALISHA JOLLY MD
[2023-11-15 20:08] VITALS: BP 145/57; BP 162/94; PULSE 86; PULSE 98; RESP 16; TEMP 36.8; O2SAT 96; O2SAT 97; BMI 36.1
[2023-11-15 20:17] VITALS: BP 145/67; PULSE 86; PULSE 96; RESP 16; TEMP 36.8; O2SAT 98
--- NOTE | 2023-11-15 20:19 | PC.NURSE ---
Pt presents to ED via EMS with reports of palpitations. Pt lives alone at home, normally has a INTERIM CONTROLLER but her INTERIM CONTROLLER does not work weekends, only mon-fri for two hours in the mornings. Pt states she does not know how to take her medications by herself. Pt is now feeling anxious and depressed, feeling palpitations. Pt is A&Ox4, GCS 15, with warm skin. Pt is luxem[place]ish speaking only. EKG obtained, labs ordered. 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 Waiting to see ED provider at this time.
[2023-11-15 20:33] LABS: MANUAL DIFF FLAG NO
[2023-11-15 20:34] LABS: Basophils Percent Auto 0.3 % (0-2); Eosinophils Absolute Auto 0.1 X10*3/uL (0.0-0.4); Eosinophils Percent Auto 1.4 % (0-4); Hematocrit 33.9 % (37.0-47.0); Hemoglobin 10.9 g/dl (12.0-16.0); Imm Gran Abs Auto 0.03 X10*3/uL (0.00-0.03); Imm Gran Pct Auto 0.3 % (0.0-0.4); Lymphocytes Absolute Auto 1.4 X10*3/uL (1.2-4.9); Lymphocytes Percent Auto 16.4 % (20-40); Mean Corpuscular HGB Conc 32.2 g/dl (31.0-35.0); Mean Corpuscular Volume 80.7 fL (80.0-98.0); Mean Platelet Volume 10.4 fL (9.4-12.3); Monocytes Absolute Auto 0.6 X10*3/uL (0.1-1.2); Monocytes Percent Auto 6.3 % (2-11); Neutrophils Absolute Auto 6.6 x10*3/uL (2.0-8.3); Neutrophils Percent Auto 75.3 % (45-73); Platelet Count 280 X10*3/uL (160-400); Red Cell Distribution Width 18.2 % (11.0-16.0); White Blood Count 8.8 X10*3/uL (4.8-10.8)
[2023-11-15 20:47] LABS: Anion Gap 13 (12-20); Blood Urea Nitrogen 13 mg/dL (9-16); Calcium 9.4 mg/dL (8.4-10.2); Carbon Dioxide 27 mmol/L (22-29); Chloride 105 mmol/L (96-108); Creatinine Clr Calc Pharmacy 99.4; Estimated Glomerular Filt Rate > 60; Glucose Random 121 mg/dL (60-115); Potassium 3.1 mmol/L (3.3-5.1); Sodium 142 mmol/L (135-145)
[2023-11-15 20:55] LABS: Troponin-I High Sensitivity 25.8 ng/L (<3.5-17.0)
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
[2023-11-15] MEDS: Potassium Chloride Packet 20 MEQ PACKET 40 MEQ PO (21:18)
[2023-11-15 21:22] LABS: Magnesium 1.3 mg/dL (1.6-2.6)
[2023-11-15] MEDS: Magnesium Sulfate/H2O 2 GM/50 ML PIGGYBACK IV (21:34)
--- NOTE | 2023-11-15 22:07 | MHC.EDTECH ---
Patient called tech into the room and asked for a paper and pen. Patient mentioned that Celina Chen (her daughter) and Km Montalvo (daughter's ) are not allowed to know anything about her. The only people that are allowed to know about her are Laura Keating (niece) and Shaniqua Chen (daughter) .
[2023-11-15] MEDS: ondansetron HCL 4 MG/2 ML VIAL IVPUSH (23:12)
[2023-11-16 03:50] LABS: COVID-19 Test Negative (Negative); IDNOW Serial# 08D9AD1C; IDNOW Serial# 9DB6401D; Influenza A Negative (Negative); Influenza B2 Negative (Negative)
[2023-11-16 06:36] LABS: Magnesium 1.8 mg/dL (1.6-2.6); Potassium 3.7 mmol/L (3.3-5.1)
[2023-11-16 08:34] VITALS: BP 114/61; PULSE 78; RESP 14; TEMP 36.4; O2SAT 97
[2023-11-16] MEDS: Acetaminophen 325 MG TABLET 650 MG PO (10:08)
--- NOTE | 2023-11-16 10:08 | PC.NURSE ---
complaining of headache, provided with tylenol at this time. ambulated w/ walker and one assist to the bathroom.
[2023-11-16 15:31] LABS: Appearance Urine Cloudy; Color Urine Yellow; Glucose Urine UA Negative (Negative); Leukocyte Esterase Urine Large (3+) (Negative); Nitrite Urine Positive (Negative); PH 7.5 (5.0-9.0); Specific Gravity - Urine 1.015 (1.005-1.025); UMIC TRIGGER UACC YES; Urine Blood Moderate (2+) (Negative); Urine Ketones Negative (Negative); Urine Protein Negative (Neg-Trace)
--- NOTE | 2023-11-16 15:31 | PC.NURSE ---
attempted to go over home medications with patient, states she does not know what medications she takes at home
[2023-11-16 15:36] LABS: Bacteria Urine 4+ (None Seen); Hyaline Casts Urine 0-2 /LPF (0-2); UACC Culture Trigger YES; WBC Urine >50 /HPF (0-5)
[2023-11-16 15:39] LABS: Amphetamine Screen Urine Not Detected (Not Detect); Barbiturates, Urine Not Detected (Not Detect); Benzodiazepines Screen Urine Not Detected (Not Detect); Cannabinoid Screen Urine Not Detected (Not Detect); Cocaine Screen Urine Not Detected (Not Detect); Fentanyl, urine Not Detected (Not Detect); Opiate Screen Urine Not Detected (Not Detect); Phencyclidine Screen Urine Not Detected (Not Detect)
[2023-11-16 17:36] VITALS: BP 153/63; PULSE 68; RESP 14; TEMP 36.8; O2SAT 99
[2023-11-16] MEDS: cefTRIAXone sodium 1 GM in 0.9 % Sodium Chloride 50 ML IV (17:36)
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
--- NOTE | 2023-11-16 18:00 | PHA.MEDREC ---
Addendum entered by Dana Canseco RPh 11/16/23 18:03: Pt unsure of current medications. Pt was discharged from here on 10/29/23 with multiple changes to medications. Issue is that since discharge, many of the meds that were discontinued were refilled and picked up from the pharmacy. Called pharmacy to verify claim history; therefore med list was created using claim history and past discharge summary; corroborated with Glenn Mabry Original Note: Pharmacy Consult ? Medication Reconciliation Pharmacy has completed the medication reconciliation. used discharge summary and claim history to complete med rec.
--- NOTE | 2023-11-16 18:33 | PC.NURSE ---
new IV established in patient's right forearm, antibiotics infused. patient's family at bedside, adamant about being informed as to which visitors are allow d/t family conflicts.
--- NOTE | 2023-11-16 19:34 | PC.NURSE ---
assumed care, family calling and asking for night time meds to be administered, pt resting quietly on stretcher resp even and unlabored
[2023-11-16] MEDS: Zolpidem Tartrate 5 MG TABLET PO (19:58)
[2023-11-16] MEDS: Montelukast Sodium 10 MG TABLET PO (19:58)
[2023-11-16] MEDS: Gabapentin 100 MG CAPSULE PO (19:58)
[2023-11-16] MEDS: clonazePAM 1 MG TABLET PO (19:58)
[2023-11-16] MEDS: Gabapentin 300 MG CAPSULE PO (19:59)
[2023-11-16] MEDS: Melatonin 3 MG TABLET 6 MG PO (19:59)
[2023-11-16] MEDS: Atorvastatin Calcium 80 MG TABLET PO (19:59)
[2023-11-16] MEDS: Enoxaparin Sodium 40 MG/0.4 ML SYRINGE SUBCUT (20:00)
[2023-11-16] MEDS: Docusate Sodium 100 MG CAPSULE PO (20:00)
--- NOTE | 2023-11-16 21:32 | PC.NURSE ---
report called to [facility]
[2023-11-16 22:51] VITALS: BP 126/57; PULSE 77; RESP 18; TEMP 37.1; O2SAT 95
[2023-11-16 23:00] LABS: Glucose, Whole Blood 154 mg/dL (60-115)
[2023-11-16 23:26] VITALS: BP 148/70; PULSE 71; RESP 16; TEMP 36.3; O2SAT 97
[2023-11-16] MEDS: risperiDONE 1 MG TABLET PO (23:38)
[2023-11-16] MEDS: 0.9 % Sodium Chloride Flush 3 ML SYRINGE IVFLUSH (23:44)
[2023-11-17 04:00] VITALS: BP 161/83; PULSE 77; RESP 18; TEMP 36.1; O2SAT 94
[2023-11-17] MEDS: Omeprazole 40 MG CAPSULE.DR PO (05:33)
[2023-11-17 07:08] VITALS: BP 156/69; PULSE 80; RESP 18; TEMP 35.7; O2SAT 98
[2023-11-17 07:16] LABS: Glucose, Whole Blood 105 mg/dL (60-115)
[2023-11-17] MEDS: Pyridoxine HCl (Vitamin B6) 50 MG TABLET PO (07:57)
[2023-11-17] MEDS: Gabapentin 300 MG CAPSULE PO ×2 (07:57→19:32)
[2023-11-17] MEDS: 0.9 % Sodium Chloride Flush 3 ML SYRINGE IVFLUSH ×3 (07:57→23:24)
[2023-11-17] MEDS: Metoprolol Succinate ER 25 MG TAB.ER.24H PO (07:57)
[2023-11-17] MEDS: Aspirin Enteric Coated 81 MG TABLET.DR PO (07:58)
[2023-11-17] MEDS: Loratadine 10 MG TABLET PO (07:58)
[2023-11-17] MEDS: risperiDONE 1 MG TABLET PO ×2 (07:58→19:33)
[2023-11-17] MEDS: Sennosides 8.6 MG TABLET PO (07:58)
[2023-11-17] MEDS: Docusate Sodium 100 MG CAPSULE PO ×3 (07:58→20:59)
[2023-11-17 11:17] LABS: Glucose, Whole Blood 152 mg/dL (60-115)
[2023-11-17] MEDS: Insulin Lispro 100 UNIT/ML 3 ML VIAL SUBCUT ×2 (11:49→16:50)
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
[2023-11-17 15:39] VITALS: BP 115/54; PULSE 89; RESP 16; TEMP 36.8; O2SAT 96
[2023-11-17 16:08] LABS: Glucose, Whole Blood 204 mg/dL (60-115)
[2023-11-17] MEDS: cefTRIAXone sodium 1 GM in 0.9 % Sodium Chloride 50 ML IV (17:19)
[2023-11-17] MEDS: Enoxaparin Sodium 40 MG/0.4 ML SYRINGE SUBCUT (17:19)
[2023-11-17] MEDS: Montelukast Sodium 10 MG TABLET PO (19:32)
[2023-11-17] MEDS: clonazePAM 1 MG TABLET PO (19:32)
[2023-11-17] MEDS: Atorvastatin Calcium 80 MG TABLET PO (19:32)
[2023-11-17] MEDS: Magnesium Oxide 400 MG TABLET PO (19:33)
[2023-11-17] MEDS: Amitriptyline HCl 50 MG TABLET 100 MG PO (19:35)
[2023-11-17] MEDS: Benzonatate 100 MG CAPSULE PO (19:42)
[2023-11-17 19:51] VITALS: BP 135/82; PULSE 78; RESP 18; TEMP 37.1; O2SAT 97
[2023-11-17 20:13] LABS: Glucose, Whole Blood 148 mg/dL (60-115)
[2023-11-18 03:54] VITALS: BP 154/67; PULSE 74; RESP 17; TEMP 36.6; O2SAT 97
[2023-11-18] MEDS: Omeprazole 40 MG CAPSULE.DR PO (05:32)
[2023-11-18 07:31] VITALS: BP 146/65; PULSE 72; RESP 17; TEMP 36.6; O2SAT 95
[2023-11-18 07:38] LABS: Glucose, Whole Blood 99 mg/dL (60-115)
[2023-11-18] MEDS: Gabapentin 300 MG CAPSULE PO ×2 (08:27→21:03)
[2023-11-18] MEDS: risperiDONE 1 MG TABLET PO ×2 (08:27→21:03)
[2023-11-18] MEDS: Metoprolol Succinate ER 25 MG TAB.ER.24H PO (08:27)
[2023-11-18] MEDS: 0.9 % Sodium Chloride Flush 3 ML SYRINGE IVFLUSH ×3 (08:27→23:53)
[2023-11-18] MEDS: Aspirin Enteric Coated 81 MG TABLET.DR PO (08:27)
[2023-11-18] MEDS: Sennosides 8.6 MG TABLET PO (08:27)
[2023-11-18] MEDS: Loratadine 10 MG TABLET PO (08:27)
[2023-11-18] MEDS: Pyridoxine HCl (Vitamin B6) 50 MG TABLET PO (08:28)
[2023-11-18] MEDS: Docusate Sodium 100 MG CAPSULE PO ×2 (08:28→21:03)
[2023-11-18 11:17] LABS: Glucose, Whole Blood 161 mg/dL (60-115)
[2023-11-18] MEDS: Insulin Lispro 100 UNIT/ML 3 ML VIAL SUBCUT ×3 (11:53→21:02)
--- NOTE | 2023-11-18 13:02 | HO.PM.IMPN ---
Subjective Subjective Date of Service: 11/18/23 Interval History: History obtained via histology assistant patient urinary symptoms burning and dysuria have resolved, denies fever, no chills, no nausea, no vomiting, no abdominal pain tolerating diet, no other acute issues overnight. Review of Systems All other system reviewed and negative. Physical Exam Vital Signs: Vital Signs: Last Vital Signs Temp 97.8 F 11/18/23 07:31 Pulse 72 11/18/23 07:31 Resp 17 11/18/23 07:31 BP 146/65 H 11/18/23 07:31 Pulse Ox 95 11/18/23 07:31 O2 Del Method Room Air 11/18/23 07:31 BMI result Body Mass Index 36.1 Const: Other: General resting comfortably in no acute distress. Anicteric sclera Neck supple no JVD. CVS regular rate rhythm, Respiratory lungs clear to auscultation, no respiratory distress, no wheeze, no rhonchi. Gastrointestinal abdomen soft, non tender, bowel sounds audible, no guarding , no rigidity. No CVA tenderness Extremities no edema. Neuro non focal Skin no rash Psyche appropriate affect Objective Data Active Medications Acetaminophen (Acetaminophen 325 Mg Tablet) 650 mg PO Q6H PRN PRN Reason: Pain, Mild (Pain Scale 1-3) Acetaminophen/Butalbital/Caffeine (Butalb/Acetamin/Caff 50/325/40 Tablet) 1 tab PO Q6H PRN PRN Reason: Headache Al Hydroxide/Mg Hydroxide (Magnesium Hydrox/Alum Hydrox 30 Ml Oral.Susp) 30 ml PO Q4H PRN PRN Reason: Heartburn/Nausea Albuterol Sulfate (Albuterol Sulfate (0.083%) 2.5 Mg/3 Ml Vial.Neb) 2.5 mg INHALE Q4H PRN PRN Reason: wheezing Albuterol Sulfate (Albuterol Sulfate 90 Mcg 8 Gm Inhaler) 2 puff INHALE Q4H PRN PRN Reason: wheezing Amitriptyline HCl (Amitriptyline Hcl 50 Mg Tablet) 100 mg PO BEDTIME COUNTS INCLUDE 234 BEDS AT THE [facility] Last Admin: 11/17/23 19:35 Dose: 100 mg Documented By: DAMI Aspirin (Aspirin Enteric Coated 81 Mg Tablet.) 81 mg PO DAILY COUNTS INCLUDE 234 BEDS AT THE [facility] Last Admin: 11/18/23 08:27 Dose: 81 mg Documented By: CRISTEL Atorvastatin Calcium (Atorvastatin Calcium 80 Mg Tablet) 80 mg PO BEDTIME COUNTS INCLUDE 234 BEDS AT THE [facility] Last Admin: 11/17/23 19:32 Dose: 80 mg Documented By: DAMI Benzonatate (Benzonatate 100 Mg Capsule) 100 mg PO TID PRN PRN Reason: Cough Last Admin: 11/17/23 19:42 Dose: 100 mg Documented By: DAMI Clonazepam (Clonazepam 1 Mg Tablet) 1 mg PO BEDTIME COUNTS INCLUDE 234 BEDS AT THE [facility] Last Admin: 11/17/23 19:32 Dose: 1 mg Documented By: DAMI Dextrose (Dextrose 50 % 25 Gm/50 Ml Syringe) 25 gm IVPUSH Q15M PRN; Protocol PRN Reason: per Hypoglycemia Standing Ord. Docusate Sodium (Docusate Sodium 100 Mg Capsule) 100 mg PO DAILY PRN PRN Reason: Constipation Last Admin: 11/17/23 20:59 Dose: 100 mg Documented By: DAMI Docusate Sodium (Docusate Sodium 100 Mg Capsule) 100 mg PO BID COUNTS INCLUDE 234 BEDS AT THE [facility] Last Admin: 11/18/23 08:28 Dose: 100 mg Documented By: CRISTEL Enoxaparin Sodium (Enoxaparin Sodium 40 Mg/0.4 Ml Syringe) 40 mg SUBCUT Q24H COUNTS INCLUDE 234 BEDS AT THE [facility] Last Admin: 11/17/23 17:19 Dose: 40 mg Documented By: DAMI Fluticasone Propionate (Fluticasone Propionate Nasal 16 Gm [place]) 1 spray NOSTRIL-B DAILY COUNTS INCLUDE 234 BEDS AT THE [facility] Last Admin: 11/18/23 09:49 Dose: Not Given Documented By: CRISTEL Non-Admin Reason: Med Not Available Gabapentin (Gabapentin 300 Mg Capsule) 300 mg PO BID COUNTS INCLUDE 234 BEDS AT THE [facility] Last Admin: 11/18/23 08:27 Dose: 300 mg Documented By: CRISTEL Glucose (Glucose Gel 15 Gm Gel..Gram.) 15 gm PO Q15M PRN; Protocol PRN Reason: per Hypoglycemia Standing Ord. Ceftriaxone Sodium 1 gm/ (Sodium Chloride) 50 mls @ 100 mls/hr IV Q24H COUNTS INCLUDE 234 BEDS AT THE [facility] Last Infusion: 11/17/23 17:52 Dose: Infused Documented By: DAMI Insulin Human Lispro (Insulin Lispro 100 Unit/Ml 3 Ml Vial) 0 unit SUBCUT QIDACHS COUNTS INCLUDE 234 BEDS AT THE [facility]; Protocol Last Admin: 11/18/23 11:53 Dose: 2 unit Documented By: CRISTEL Loratadine (Loratadine 10 Mg Tablet) 10 mg PO DAILY COUNTS INCLUDE 234 BEDS AT THE [facility] Last Admin: 11/18/23 08:27 Dose: 10 mg Documented By: CRISTEL Magnesium Hydroxide (Milk Of Magnesia 30 Ml Oral.Susp) 30 ml PO DAILY PRN PRN Reason: Constipation Magnesium Oxide (Magnesium Oxide 400 Mg Tablet) 400 mg PO BEDTIME COUNTS INCLUDE 234 BEDS AT THE [facility] Last Admin: 11/17/23 19:33 Dose: 400 mg Documented By: DAMI Melatonin (Melatonin 3 Mg Tablet) 6 mg PO BEDTIME PRN PRN Reason: Insomnia Last Admin: 11/16/23 19:59 Dose: 6 mg Documented By: TRICE Metoprolol Succinate (Metoprolol Succinate Er 25 Mg Tab.Er.24h) 25 mg PO DAILY COUNTS INCLUDE 234 BEDS AT THE [facility]; Protocol Last Admin: 11/18/23 08:27 Dose: 25 mg Documented By: CRISTEL Montelukast Sodium (Montelukast Sodium 10 Mg Tablet) 10 mg PO BEDTIME COUNTS INCLUDE 234 BEDS AT THE [facility] Last Admin: 11/17/23 19:32 Dose: 10 mg Documented By: DAMI Omeprazole (Omeprazole 40 Mg Capsule.Dr) 40 mg PO DAILY@0630 COUNTS INCLUDE 234 BEDS AT THE [facility] Last Admin: 11/18/23 05:32 Dose: 40 mg Documented By: STARR Ondansetron HCl (Ondansetron Hcl 4 Mg/2 Ml Vial) 4 mg IVPUSH Q8H PRN PRN Reason: Nausea and Vomiting Pyridoxine HCl (Pyridoxine Hcl (Vitamin B6) 50 Mg Tablet) 50 mg PO DAILY COUNTS INCLUDE 234 BEDS AT THE [facility] Last Admin: 11/18/23 08:28 Dose: 50 mg Documented By: CRISTEL Risperidone (Risperidone 1 Mg Tablet) 1 mg PO BID COUNTS INCLUDE 234 BEDS AT THE [facility] Last Admin: 11/18/23 08:27 Dose: 1 mg Documented By: CRISTEL Senna (Sennosides 8.6 Mg Tablet) 8.6 mg PO DAILY COUNTS INCLUDE 234 BEDS AT THE [facility] Last Admin: 11/18/23 08:27 Dose: 8.6 mg Documented By: CRISTEL Sodium Chloride (0.9 % Sodium Chloride Flush 3 Ml Syringe) 3 ml IVFLUSH QSHIFT COUNTS INCLUDE 234 BEDS AT THE [facility] Last Admin: 11/18/23 08:27 Dose: 3 ml Documented By: CRISTEL Labs 11/15/23 20:27 11/16/23 06:19 Labs: Laboratory Results - last 24 hr 11/17/23 11/17/23 11/18/23 16:05 19:49 07:34 POC Glucose 204 H 148 H 99 11/18/23 11:11 POC Glucose 161 H Microbiology Microbiology Results: Microbiology 11/16/23 15:37 Urine Culture - Final Urine clean catch - Urine [place] top Klebsiella pneumoniae Assessment and Plan (1) Acute hypokalemia: Status: Acute (2) Hypomagnesemia: Status: Acute (3) Mood disorder: Status: Acute Plan 68-year-old female with past medical history significant for mood disorder, mixed hyperlipidemia, hypertension, GERD, insulin-dependent diabetes who presented to emergency room for symptoms of loneliness, depression and concern for demand chasing her. Acute UTI normal WBC, no sepsis Urinary symptoms resolved Urine culture grew Klebsiella pneumoniae sensitive to ceftriaxone on IV ceftriaxone started on November 16, will transition to by mouth Ceftin 250mg bid. patient's niece Laura [phone] wishes to be the new healthcare proxy, since patient does not want her daughter to be her healthcare proxy. Family requesting for VNA services for medication administration. Acute hypokalemia repleted and normalized. Acute hypo magnesemia repleted and normalized. Insulin-dependent diabetes mellitus stable blood sugars will hold basal insulin, on insulin sliding scale and diabetic diet. Mood disorder continue home mood stabilizers, amitriptyline, risperidone 1 mg b.i.d., Klonopin 1 mg at bedtime Seen by psychiatry they recommend to DC Ambien and continue above medications, Mild intermittent asthma no acute exacerbation, continue Singulair and home inhalers. Hypertension continue metoprolol, stable BP Hyperlipidemia continue Lipitor Obesity recommend weight reduction that will help in management of diabetes. Vascular dementia recently diagnosed.normal eeg, normal TSH, B12 and folate in the past. DVT prophylaxis with Lovenox Full code Patient need continued inpatient stay for management of acute UTI on IV antibiotics and for safe disposition, will discuss was home health care case manager for safe discharge. Patient does not want her daughter Anthony Chen and her son Agustin Chen to visit her. Quality Stroke Does the patient have a stroke diagnosis?: No VTE Prior VTE?: No VTE Risk Level:: Medical - moderate - high VTE Device Contraindication: Treatment Not Indicated VTE Drug Contraindication: N/A - Med Ordered
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
[2023-11-18 15:39] VITALS: BP 124/58; PULSE 89; RESP 19; TEMP 36.1; O2SAT 96
[2023-11-18 16:08] LABS: Glucose, Whole Blood 179 mg/dL (60-115)
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
[2023-11-18] MEDS: Milk of Magnesia 30 ML ORAL.SUSP PO (16:25)
[2023-11-18] MEDS: Enoxaparin Sodium 40 MG/0.4 ML SYRINGE SUBCUT (17:47)
[2023-11-18] MEDS: cefTRIAXone sodium 1 GM in 0.9 % Sodium Chloride 50 ML IV (17:49)
[2023-11-18 19:45] VITALS: BP 138/58; PULSE 85; RESP 19; TEMP 36.3; O2SAT 98
[2023-11-18 20:51] LABS: Glucose, Whole Blood 164 mg/dL (60-115)
[2023-11-18] MEDS: Amitriptyline HCl 50 MG TABLET 100 MG PO (21:03)
[2023-11-18] MEDS: Montelukast Sodium 10 MG TABLET PO (21:03)
[2023-11-18] MEDS: Atorvastatin Calcium 80 MG TABLET PO (21:03)
[2023-11-18] MEDS: Magnesium Oxide 400 MG TABLET PO (21:03)
[2023-11-18] MEDS: clonazePAM 1 MG TABLET PO (21:04)
[2023-11-18] MEDS: Acetaminophen 325 MG TABLET 650 MG PO (21:08)
[2023-11-19 03:05] VITALS: BP 153/71; PULSE 78; RESP 18; TEMP 36.3; O2SAT 100
[2023-11-19] MEDS: Omeprazole 40 MG CAPSULE.DR PO (06:15)
[2023-11-19 07:32] LABS: Glucose, Whole Blood 119 mg/dL (60-115)
[2023-11-19] MEDS: Gabapentin 300 MG CAPSULE PO (08:27)
[2023-11-19] MEDS: Sennosides 8.6 MG TABLET PO (08:27)
[2023-11-19] MEDS: Docusate Sodium 100 MG CAPSULE PO (08:27)
[2023-11-19] MEDS: Aspirin Enteric Coated 81 MG TABLET.DR PO (08:28)
[2023-11-19] MEDS: Pyridoxine HCl (Vitamin B6) 50 MG TABLET PO (08:28)
[2023-11-19] MEDS: Loratadine 10 MG TABLET PO (08:28)
[2023-11-19] MEDS: risperiDONE 1 MG TABLET PO (08:29)
[2023-11-19] MEDS: Metoprolol Succinate ER 25 MG TAB.ER.24H PO (08:29)
[2023-11-19] MEDS: 0.9 % Sodium Chloride Flush 3 ML SYRINGE IVFLUSH (08:32)
[2023-11-19] MEDS: cefuroxime axetiL 250 MG TABLET PO (08:54)
[2023-11-19 11:21] LABS: Glucose, Whole Blood 136 mg/dL (60-115)
[2023-11-19] MEDS: Lactulose 20 GM/30 ML SOLUTION PO (11:24)
[2023-11-19 12:37] LABS: Estimated Average Glucose 154 mg/dL; Hemoglobin A1C 150.7252 umol/L
--- NOTE | 2023-11-19 13:21 | PM.DS ---
DS: Providers Provider Date of Service: 11/19/23 Date of admission: 11/16/23 18:01 Primary care physician: Ashwin Arzola III, MD Consults: 11/15/23 21:54 Consult to Care Team Stat Comment: Reason for consultation: depression, states a man is after her - delusions 11/17/23 09:41 Consult to Psychiatry Routine Consulting Provider: Psych Covering Reason for consultation: depression /anxiety Has provider been notified: No DS: Diagnosis Discharge Diagnosis (1) Mood disorder: Status: Acute (2) Major neurocognitive disorder: Status: Acute DS: Summary Hospital Course Hospital Course: History of presenting illness: Date of Service: 11/16/23 Chief Complaint: Anxiety/UTI 68-year-old female with past medical history of anemia, obstructive sleep apnea, hypertension, hyperlipidemia, diabetes mellitus, coronary artery disease, history of cognitive impairment, delusions, with no prior psychiatric history presented to [facility] for symptoms of depression, loneliness with anxiety, and concern for a man who is after her and chasing her, patient's sister at bedside agreed that she saw a man chasing her in her building and telling her things she does not want to hear, he watches her from the parking lot , Patient was evaluated by care team on November 09/2024 with similar concern, and noted to have no psychiatric issues and was not suitable for inpatient psychiatric admission, she was supposed to be discharged home with her niece but however patient returned back to her apartment and continued to have same issues, patient was noted to have hypo magnesemia and hypokalemia that was repleted in the ED, her urinalysis came back positive for 4+ bacteria elevated WBC and nitrates, on further questioning patient admitted to have urinary burning of 1 day duration, also complaining of chills, fever and sweating, had some nausea that has now resolved denies back pain, no abdominal pain, no diarrhea denies history of recurrent UTIs patient is being admitted to [facility] due to acute uti and electrolyte abnormalities. Hospital course: 68-year-old female with past medical history significant for mood disorder, mixed hyperlipidemia, hypertension, GERD, insulin-dependent diabetes who presented to emergency room for symptoms of loneliness, depression and concern for a man chasing her, patient diagnosed to have Acute UTI admitted to medical floor placed on IV ceftriaxone, had normal WBC, no sepsis, Urine culture grew Klebsiella pneumoniae sensitive to ceftriaxone, all symptoms of UTI resolved antibiotic transition to Ceftin 250 mg b.i.d. since patient is hemodynamically stable she is being discharged home on Ceftin 250 b.i.d. to finish 5 day course of antibiotic. Acute hypokalemia repleted and normalized. Acute hypo magnesemia repleted and normalized. 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 Mild intermittent asthma no acute exacerbation, continue Singulair and home inhalers. Hypertension continue metoprolol, stable BP Hyperlipidemia continue Lipitor Obesity recommend weight reduction that will help in management of diabetes. Dementia unspecified ? Vascular had normal eeg, normal TSH, B12 and folate in the past. Time Attestation Discharge coordination time: Greater than 30 minutes Quality: Safe Use of Opioids Does Pt have an Active Cancer Diagnosis on the Problem List?: No Quality: Stroke Does the patient have a stroke diagnosis?: No Physical Exam Vital Signs: Vital Signs: Last Vital Signs Temp 97.3 F 11/19/23 03:05 Pulse 78 11/19/23 03:05 Resp 18 11/19/23 03:05 BP 153/71 H 11/19/23 03:05 Pulse Ox 100 11/19/23 03:05 O2 Del Method Room Air 11/19/23 03:05 BMI result Body Mass Index 36.1 Const: Other: General resting comfortably in no acute distress. Anicteric sclera Neck supple no JVD. CVS regular rate rhythm, Respiratory lungs clear to auscultation, no respiratory distress, no wheeze, no rhonchi. Gastrointestinal abdomen soft, non tender, bowel sounds audible, no guarding , no rigidity. No CVA tenderness Extremities no edema. Neuro non focal Skin no rash Psyche appropriate affect DS: Data Data Completed and Pending Labs on day of discharge: Laboratory Results - last 24 hr 11/18/23 11/18/2324 15:56 20:47 07:28 POC Glucose 179 H 164 H 119 H Estimat Average Glucose Hemoglobin A1c % TSH 11/19/23 11/19/23 11:16 12:01 POC Glucose 136 H Estimat Average Glucose 154 Hemoglobin A1c % 7.0 H TSH 0.80 Discharge Plan Discharge Anticipated Discharge Date/Time: 11/19/23 11:50 Patient Disposition: Home Health Service Discharge Diagnosis: Acute UTI Hypokalemia Hypomagnesemia Mood disorder Referrals: Ashwin Arzola III, MD [Primary Care Provider] - 1 Week Discharge Medications: New cefuroxime axetil 250 mg Tablet 250 mg PO BID Qty: 4 0RF Continued albuterol sulfate 2.5 mg /3 mL (0.083 %) solution for nebulization 1 vial inhalation Q4H PRN (Reason: wheezing) bpahedfelq-poupjjjwmxaqo-epva 50-325-40 mg tablet 1 tab PO Q6H PRN (Reason: Headache) atorvastatin 80 mg Tablet 80 mg PO BEDTIME Qty: 0 0RF aspirin 81 mg Tablet,Delayed Release (Dr/Ec) 81 mg PO DAILY Qty: 30 0RF amitriptyline 50 mg Tablet 100 mg PO BEDTIME Qty: 60 0RF magnesium oxide 400 mg (241.3 mg magnesium) Tablet 400 mg PO BEDTIME Qty: 30 0RF gabapentin 300 mg Capsule 300 mg PO BID Qty: 60 0RF metoprolol succinate 25 mg Tablet Extended Release 24 Hr 25 mg PO DAILY Qty: 0 0RF Protocol: Hold for SBP/HR < HOLD for SBP < : 90 HOLD for HR < : 60 fluticasone propionate 50 mcg/actuation [place],Suspension 1 spray intranasal DAILY Qty: 0 0RF metformin 500 mg Tablet Extended Release 24 Hr 500 mg PO BID Qty: 60 0RF risperidone 1 mg Tablet 1 mg PO BID Qty: 60 0RF loratadine 10 mg Tablet 10 mg PO DAILY Qty: 0 0RF pyridoxine (vitamin B6) 50 mg Tablet 50 mg PO DAILY Qty: 30 0RF montelukast 10 mg Tablet 10 mg PO BEDTIME Qty: 30 0RF sennosides [senna] 8.6 mg tablet 8.6 mg PO DAILY ondansetron HCl 4 mg tablet 4 mg PO Q8H PRN (Reason: nausea) clonazepam 1 mg tablet 1 mg PO BEDTIME pantoprazole 40 mg tablet,delayed release (DR/EC) 40 mg PO DAILY docusate sodium 100 mg capsule 100 mg PO BID nystatin 100,000 unit/gram powder 1 appl topical QID PRN (Reason: Rash) (DME) lancets [OneTouch Delica Plus Lancet] 33 gauge misc See Rx Instructions .ROUTE BID Qty: 100 Rx Instructions: As directed albuterol sulfate 90 mcg/actuation HFA aerosol inhaler 2 puff inhalation Q4H PRN (Reason: wheezing) (DME) OneTouch Ultra Test Strip See Rx Instructions .ROUTE BID Qty: 10 Rx Instructions: As directed Changed insulin glargine [Lantus U-100 Insulin] 100 unit/mL Solution 15 unit subcut DAILY Qty: 0 0RF Discontinued gabapentin 100 mg capsule 100 mg PO QPM zolpidem 10 mg tablet 10 mg PO BEDTIME naproxen 500 mg tablet 500 mg PO BIDWM metoclopramide HCl 10 mg tablet 10 mg PO QID Discharge Orders: Discharge Order (Routine); Ordered 11/19/23 Ordered By: Kerri Wise Diet: Diabetic diet Activity on Discharge: As tolerated Stand Alone Forms: Patient Portal Discharge page Care Plan Goals: Take Ceftin 1 tablet twice daily for 2 more days for urinary tract infection Stop taking Ambien/metoclopramide and Naprosyn, take Naprosyn only as needed Take Metamucil daily if noted to have constipation Health Concerns: Diabetes follow diabetic diet dose of Lantus reduced to 15 units at bedtime due to stable blood sugars Plan of Treatment: Outpatient follow-up with primary care physician call for appointment/continue follow-up at [facility] Assessment: As above
--- NOTE | 2023-11-19 13:50 | MHC.CM.PN ---
IMM 11/17/23 Patient is discharged to home today. HCP/Niece has been notified of the discharge today. All home services will resume. [facility] has been notified of dc and request to resume services. Spoke with [facility] services confirmed to resume.[facility] spoke with Rachael feng DC Plan. Pt will transport home with [facility]. [facility] will stay with the patient at discharge.
== END 2023-11-19 15:04 | disposition home health service (06) | DRG 690 ==
LOC: HO.ED 21:59 → HO.EDOVER 11-16 18:08 → HO.S3 11-16 21:19
PROVIDERS: Admitting Provider Hospitalist; Emergency Provider Emergency Medicine; PCP Internal Medicine; Visit Provider Hospitalist
DX: N39.0 Urinary tract infection, site not specified (principal); F05 Delirium due to known physiological condition; J45.20 Mild intermittent asthma, uncomplicated; J44.9 Chronic obstructive pulmonary disease, unspecified; E87.6 Hypokalemia; F01.50 Vascular dementia, unspecified severity, without behavioral disturbance, psychotic disturbance, mood disturbance, and anxiety; B96.1 Klebsiella pneumoniae [K. pneumoniae] as the cause of diseases classified elsewhere; F39 Unspecified mood [affective] disorder; E66.9 Obesity, unspecified; I10 Essential (primary) hypertension; Z68.36 Body mass index [BMI] 36.0-36.9, adult; E78.2 Mixed hyperlipidemia; E83.42 Hypomagnesemia; I25.10 Atherosclerotic heart disease of native coronary artery without angina pectoris; G47.33 Obstructive sleep apnea (adult) (pediatric); E11.9 Type 2 diabetes mellitus without complications; Z20.822 Contact with and (suspected) exposure to COVID-19; Z88.0 Allergy status to penicillin; Z79.4 Long term (current) use of insulin; Z79.82 Long term (current) use of aspirin; Z79.899 Other long term (current) drug therapy
CPT/HCPCS: 36415; 80048; 80307; 81001; 82947; 83036; 83735; 84132; 84443; 84484; 85025; 87086; 87088; 87186; 87502; 87635; 93005; 99221; 99285; J0696; J1650; J2405; J3475

== ENCOUNTER → 2023-11-15 20:06 | Outpatient (BNV) | payer MEDICARE, SELFPAY | PROVIDERS: Emergency Provider Emergency Medicine; Visit Provider Internal Medicine Cardiovascular Disease | DX: R00.2 Palpitations (principal) | CPT/HCPCS: 93010 ==

== ENCOUNTER → 2023-11-16 18:01 | Outpatient (BNV) | payer OTHER, SELFPAY | PROVIDERS: Admitting Provider Hospitalist; Emergency Provider Emergency Medicine; PCP Internal Medicine; Visit Provider Hospitalist | DX: E11.69 Type 2 diabetes mellitus with other specified complication (principal); E78.5 Hyperlipidemia, unspecified; Z79.4 Long term (current) use of insulin; N39.0 Urinary tract infection, site not specified | CPT/HCPCS: 99223; 99231; 99232; 99238 ==

== ENCOUNTER → 2023-11-16 18:01 | Outpatient (BNV) | payer OTHER, SELFPAY | PROVIDERS: Admitting Provider Hospitalist; Emergency Provider Emergency Medicine; PCP Internal Medicine; Visit Provider Social Worker | DX: F39 Unspecified mood [affective] disorder (principal); F03.90 Unspecified dementia, unspecified severity, without behavioral disturbance, psychotic disturbance, mood disturbance, and anxiety | CPT/HCPCS: 99232 ==

== ENCOUNTER 2024-02-09 17:50 | Emergency (ER) | payer OTHER, SELFPAY ==
--- NOTE | 2024-02-09 | ECG_ITS ---
Test Reason : SYNCOPE Blood Pressure : / mmHG Vent. Rate : 065 BPM Atrial Rate : 065 BPM P-R Int : 182 ms QRS Dur : 082 ms QT Int : 402 ms P-R-T Axes : 055 003 034 degrees QTc Int : 418 ms Normal sinus rhythm Normal ECG When compared with ECG of 15-NOV-2023 20:06, T wave inversion no longer evident in Inferior leads Referred By: Isabella Zhang Electronically Signed By:GINGER MARLEY
--- NOTE | ~2024-02-09 | CT_ITS ---
EXAMINATION: CT HEAD WITHOUT CONTRAST CLINICAL INFORMATION: Pain injury COMPARISON: CT head from 11/08/2023 TECHNIQUE: Contiguous axial imaging was performed from the skull base to vertex without intravenous administration of contrast. This CT examination was performed using dose optimization techniques as appropriate, variously including the following: *Automated exposure control *Adjustment of mA and/or kV according to patient size (this includes techniques or standardized protocols for targeted exams where dose is matched to indication/reason for exam; i.e. extremities or head) *Use of iterative reconstruction technique DLP: 1103 mGy-cm FINDINGS: Known saccular aneurysm of the right MCA is less conspicuous on this noncontrast imaging. There is no evidence of acute intracranial hemorrhage or territorial infarction. No abnormal mass effect or midline shift is seen. Oneill to white matter differentiation is well preserved. No extra-axial fluid collections are identified. The ventricles are normal in size. There is no abnormal attenuation within the brain parenchyma. The osseous structures and soft tissues are normal. The mastoid air cells and visualized portions of the paranasal sinuses are well aerated. CT/CT cervical spine wo IV con IMPRESSION: 1. No acute intracranial pathology. 2. Known saccular aneurysm of the right MCA is less conspicuous on this noncontrast imaging. EXAMINATION: Noncontrast CT scan of the cervical spine. INDICATION: Pain injury COMPARISON: CT cervical spine from 09/17/2023 TECHNIQUE: Helical, multidetector axial images were obtained from the occiput to the upper thorax. Coronal and sagittal reformats of the cervical spine were provided for interpretation. DLP: 1103 mGy-cm FINDINGS: No acute fractures or dislocations of the cervical spine are seen. Straightening with slight reversal of the normal cervical curvature. Slight grade 1 anterolisthesis of C4 on C5. Multilevel degenerative changes. 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 Anatomic alignment and positioning of the vertebral bodies and posterior elements is noted. The atlantoaxial joint and craniovertebral articulations are normal without evidence of subluxation. There is no prevertebral soft tissue swelling. The thyroid gland and visualized portions of the lung apices and mediastinum are unremarkable. IMPRESSION: 1. No acute visible fracture or dislocation. 2. Straightening with slight reversal of the normal cervical curvature. 3. Slight grade 1 anterolisthesis of C4 on C5. 4. Multilevel degenerative changes.
[2024-02-09 18:00] VITALS: BP 136/59; BP 138/55; PULSE 70; PULSE 74; RESP 18; TEMP 36.4; O2SAT 95; O2SAT 98; BMI 30.9
[2024-02-09 18:13] VITALS: BP 138/55; PULSE 69; RESP 18; TEMP 36.4; O2SAT 96; O2SAT 97
--- NOTE | 2024-02-09 18:22 | ED_ITS ---
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 Patient states that she fell yesterday and has had neck pain ever since. Patient denies any dizziness, lightheadedness, abdominal pain, nausea, vomiting, fever, chills, blurry vision, double vision, loss of vision, chest pain, difficulty breathing, shortness of breath, back pain, night sweats, pain with urination, increased urinary frequency, increased urinary urgency, blood in her urine or stool, syncope or a near syncopal episode, bowel incontinence, bladder incontinence, bowel retention, bladder retention, or any other complaints at this time. Onset (ago): day(s) Location: neck Severity: mild Severity scale (1-10): 3 Relieving factors: none Exacerbating factors: none Associated symptoms: denies other symptoms Treatments prior to arrival: none Related Data Home Medications ?Medication ?Instructions ?Recorded ?Confirmed albuterol sulfate 90 mcg/actuation 2 puff inhalation Q4H PRN wheezing 09/27/22 11/16/23 aerosol inhaler blood sugar diagnostic (OneTouch #10 ea 09/27/22 10/20/23 Ultra Test strips) lancets 33 gauge (OneTouch Delica #100 ea 09/27/22 10/20/23 Plus Lancet) albuterol sulfate 2.5 mg/3 mL 1 vial inhalation Q4H PRN wheezing 12/16/22 11/16/23 (0.083 %) solution for nebulization obzjamycha-tnyrvndudykms-iboofxeu 1 tab PO Q6H PRN Headache 10/17/23 11/16/23 50 mg-325 mg-40 mg tablet clonazepam 1 mg tablet 1 mg PO BEDTIME 11/16/23 11/16/23 docusate sodium 100 mg capsule 100 mg PO BID 11/16/23 11/16/23 nystatin 100,000 unit/gram topical 1 appl topical QID PRN Rash 11/16/23 11/16/23 powder ondansetron HCl 4 mg tablet 4 mg PO Q8H PRN nausea 11/16/23 11/16/23 pantoprazole 40 mg tablet,delayed 40 mg PO DAILY 11/16/23 11/16/23 release sennosides 8.6 mg tablet (senna) 8.6 mg PO DAILY 11/16/23 11/16/23 Previous Rx's ?Medication ?Instructions ?Recorded amitriptyline 50 mg tablet 100 mg (2 x 50 mg) PO BEDTIME #60 10/29/23 tabs aspirin 81 mg tablet,delayed 81 mg PO DAILY #30 tabs 10/29/23 release atorvastatin 80 mg tablet 80 mg PO BEDTIME #0 tabs 10/29/23 fluticasone propionate 50 1 spray intranasal DAILY #0 grams 10/29/23 mcg/actuation nasal spray,suspension gabapentin 300 mg capsule 300 mg PO BID #60 caps 10/29/23 loratadine 10 mg tablet 10 mg PO DAILY #0 tabs 10/29/23 magnesium oxide 400 mg (241.3 mg 400 mg PO BEDTIME #30 tabs 10/29/23 magnesium) tablet metformin 500 mg tablet,extended 500 mg PO BID #60 tabs 10/29/23 release 24 hr metoprolol succinate 25 mg 25 mg PO DAILY #0 tabs 10/29/23 tablet,extended release 24 hr montelukast 10 mg tablet 10 mg PO BEDTIME #30 tabs 10/29/23 pyridoxine (vitamin B6) 50 mg 50 mg PO DAILY #30 tabs 10/29/23 tablet risperidone 1 mg tablet 1 mg PO BID #60 tabs 10/29/23 cefuroxime axetil 250 mg tablet 250 mg PO BID #4 tabs 11/19/23 insulin glargine 100 unit/mL 15 unit (0.15 mL) subcut DAILY #0 11/19/23 subcutaneous solution (Lantus mL U-100 Insulin) Allergies Allergy/AdvReac Type Severity Reaction Status Date / Time Penicillins Allergy Mild Swelling Verified 11/15/23 20:31 seafood Allergy Unknown Verified 02/09/24 18:12 Review of Systems 2 Constitutional: Constitutional: Reports no additional constitutional complaints, Denies chills, Denies fever(s) and Denies night sweats Eyes: Eyes: Reports no additional eye complaints, Denies blurry vision, Denies change in vision, Denies diplopia, Denies eye discharge, Denies loss of vision and Denies eye pain ENT: Denies dizziness and Reports neck pain Cardiovascular: Cardiovascular: Reports no additional cardiovascular complaints, Denies chest pain, Denies lightheadedness, Denies Loss of Consciousness and Denies dyspnea Respiratory: Respiratory: Reports no additional respiratory complaints and Denies dyspnea Gastrointestinal: Gastrointestinal: Reports no additional gastrointestinal complaints, Denies abdominal pain, Denies melena, Denies hematochezia, Denies change in bowel habits and Denies change in stool character Genitourinary: Genitourinary: Denies hematuria, Denies urinary frequency, Denies dysuria, Denies urinary incontinence, Denies urinary hesitancy and Denies urinary urgency Musculoskeletal: Musculoskeletal: Reports no additional musculoskeletal complaints, Reports neck pain, Denies numbness and Denies tingling Neurologic: Denies dizziness, Denies loss of vision, Denies numbness and Denies tingling Psychiatric: Psychiatric: Reports no additional psychiatric complaints Endocrine: Endocrine: Reports no additional endocrine complaints Hematologic/Lymphatic: Hematologic/Lymphatic: Reports no additional hematologic/lymphatic complaints Allergic/Immunologic: Allergic/Immunologic: Reports no additional allergic/immunologic complaints [facility] Past Medical History Attestation statement: The following information was validated with the patient. Source: old records reviewed and nursing notes reviewed Medical History Delusions Major neurocognitive disorder DJD (degenerative joint disease) COPD (chronic obstructive pulmonary disease) Bipolar disorder CTS (carpal tunnel syndrome) Hx of rheumatoid arthritis Diabetic neuropathy Urinary incontinence Aneurysm of middle cerebral artery Pulmonary nodules CHF (congestive heart failure) Palpitations Migraine History of COVID-19 Mild aortic stenosis Asthma Insulin dependent type 2 diabetes mellitus Mixed hyperlipidemia Mood disorder Essential hypertension Surgical History Hx of cataract surgery H/O: hysterectomy Hx of cholecystectomy History of carpal tunnel release Family History Family History Mother Myocardial infarction Father Myocardial infarction Sister Breast cancer Brother Spleen cancer Social History Social History Household Members: None Housing: Apartment Do you presently have visiting nurse or other home services: No Unable to assess alcohol history related to: Unknown Alcohol intake: never Comment: report given by Cleo rn Patient Tobacco Use Status: Never used Tobacco Tobacco use type: Cigarette Cigarette Packs Per Day: 0.2 Cigarettes Per Day: 4.0 Years Smoked: [id number] Smoked in Last 30 Days: No e-Cigarette/Vaping Use: Never Used Second Hand Smoke Exposure: No Use of substances other than those prescribed or required for medical reasons: No Advance Directives: Yes Advance Directives on File: Yes Advance Directives Date on File: 11/20/23 service: No Current occupational status: retired Sexual orientation: Straight/Heterosexual Physical Exam ED Vital Signs: Vital Signs - 24 hr 02/09/24 18:00 02/09/24 18:13 02/09/24 18:13 Temperature 97.5 F 97.5 F Pulse Rate 70 69 Respiratory Rate 18 18 Blood Pressure 138/55 L 138/55 L Pulse Oximetry 95 97 96 Oxygen Delivery Method Room Air Room Air Room Air 02/09/24 20:05 02/09/24 21:21 02/09/24 21:30 Temperature 98.2 F 97.5 F 97.5 F Pulse Rate 74 68 68 Respiratory Rate 17 17 17 Blood Pressure 156/63 H 112/47 L 112/47 L Pulse Oximetry 97 95 95 Oxygen Delivery Method Room Air Room Air Room Air BMI result Body Mass Index 30.9 Const General: cooperative, no acute distress, alert and awake Nutritional Appearance: well nourished Orientation/consciousness: patient oriented x3 Limitations: no limitations [facility] Head: Yes normal to inspection and Yes atraumatic Ears: hearing grossly normal bilaterally and external ears normal General nose exam: Normal external nose present, no nasal discharge noted and no epistaxis Face and sinus: Yes normal facial exam, No abrasion and No laceration Mouth: Normal oral and palatal mucosa present, no drooling and no muffled voice Eyes General: appearance normal, both eyes and all related structures Periorbital: periorbital findings normal Eyelids: Yes eyelids normal Conjunctivae: conjunctivae normal Pupils: Equal, round and reactive pupils present EOM: EOMs intact bilaterally Neck Neck: Yes normal visual inspection, Yes full ROM and Yes no lymphadenopathy Chest Chest palpation & inspection: normal inspection of the chest Resp Effort & Inspection: normal respiratory effort and able to speak in complete sentences GI Inspection: Yes normal to inspection Neuro General: patient oriented x3 and moves all extremities Cranial nerves: Yes Equal, round and reactive pupils present Cognition (Neuro): normal cognition Motor exam (neuro): 5/5 motor strength present throughout Sensory Exam: Normal double simultaneous stimulation for sensation Coordination: llrzhx-kc-mnuh test normal Extrem General: Yes normal to inspection, Yes full ROM and Yes capillary refill normal Psych Appearance: grossly normal Mental Status: mental status grossly normal Affect: normal affect Attitude: cooperative Thought process: Normal thought process present Thought content: Normal thought content present Insight: Good insight present (Psych) Medications Administered Discontinued Medications Generic Name Dose Route Start Last Admin Trade Name Juan PRN Reason Stop Dose Admin Dextrose 25 gm 02/09/24 19:45 02/09/24 19:34 Dextrose 50 % 25 Gm/50 Ml Syringe IVPUSH 02/09/24 19:46 25 gm ONCE ONE Administration Medical Decision Making Medical Decision Making MDM Narrative: Patient is a 68 year old assigned female at with a history of DM, HTN, and asthma presenting to the emergency department today with neck pain after a fall. Patient's physical exam was unremarkable. Patient's blood work showed a low blood sugar of 59 but were otherwise unremarkable. Patient's EKG was unremarkable. Patient's head and c-spine CTs showed no acute process. I explained my physical exam findings as well as all test results to the patient. I answered all questions asked by the patient. Patient received IV D50 and was able to eat and drinking, bringing her blood glucose up. Patient states that she has been having issues with her blood sugars going too low lately. I stressed the importance of the patient taking her medication as prescribed. I stressed the importance of the patient following up with her primary care provider. I stressed the importance of the patient returning to the emergency department immediately if her symptoms were to worsen or if she were to develop any dizziness, shortness of breath, difficulty breathing, chest pain, blurry vision, loss of vision, nausea, vomiting, abdominal pain, fever, chills, back pain, or any other complaints. Patient verbalized agreement and understanding with this treatment plan and discharge. Differential Diagnosis Differential Diagnoses: The differential diagnosis associated with the presentation includes Fall Neck pain Hypoglycemia Admission/Observation Consideration of admission/observation: Escalation of care including admission/observation considered Patient would have been admitted to the hospital had her work up had any findings where hospital admission was appropriate and her clinical presentation warranted hospital admission. Lab Data [facility] Lab Attestation statement: I reviewed the patient's lab results. My interpretation of these results are in the MDM Rationale portion of this note. 02/09/24 18:57 02/09/24 18:57 Labs: Lab Results 02/09/24 02/09/24 02/09/24 Range/Units 18:57 19:42 19:54 WBC 6.5 (4.8-10.8) X10*3/uL RBC 3.78 L (4.20-5.50) X10*6/uL Hgb 9.8 L (12.0-16.0) g/dl Hct 31.7 L (37.0-47.0) % MCV 83.9 (80.0-98.0) fL MCH 25.9 L (27.0-33.0) pg MCHC 30.9 L (31.0-35.0) g/dl RDW 16.7 H (11.0-16.0) % Plt Count 203 D (160-400) X10*3/uL MPV 11.3 (9.4-12.3) fL Immature Gran % (Auto) 0.2 (0.0-0.4) % Neut % (Auto) 66.2 (45-73) % Lymph % (Auto) 19.3 L (20-40) % Laurel % (Auto) 10.6 (2-11) % Eos % (Auto) 3.2 (0-4) % Baso % (Auto) 0.5 (0-2) % Lymph # (Auto) 1.3 (1.2-4.9) X10*3/uL Laurel # (Auto) 0.7 (0.1-1.2) X10*3/uL Eos # (Auto) 0.2 (0.0-0.4) X10*3/uL Baso # (Auto) 0.0 (0.0-0.2) X10*3/uL Abs Immat Gran (auto) 0.01 (0.00-0.03) X10*3/uL Absolute Neuts (auto) 4.3 (2.0-8.3) x10*3/uL Absolute Nucleated RBC 0.000 (0.0-0.012) X10*3/uL Nucleated RBC % (auto) 0.0 (0.0-0.2) /100WBC Sodium 141 (135-145) mmol/L Potassium 4.3 (3.3-5.1) mmol/L Chloride 104 (96-108) mmol/L Carbon Dioxide 26 (22-29) mmol/L Anion Gap 15 (12-20) BUN 15 (9-16) mg/dL Creatinine 0.70 (0.5-1.4) mg/dL Estim Creat Clear Calc 81.2 Estimated GFR > 60 POC Glucose 172 H 132 H (60-115) mg/dL Random Glucose 59 L* (60-115) mg/dL Calcium 9.3 (8.4-10.2) mg/dL Magnesium 1.7 (1.6-2.6) mg/dL Total Bilirubin 0.2 (0.0-1.0) mg/dL AST 18 (5-31) U/L ALT 12 (0-31) U/L Alkaline Phosphatase 59 (39-117) U/L Total Protein 7.0 (6.5-8.0) g/dL Albumin 3.6 (3.5-5.0) g/dL 02/09/24 Range/Units 20:20 WBC (4.8-10.8) X10*3/uL RBC (4.20-5.50) X10*6/uL Hgb (12.0-16.0) g/dl Hct (37.0-47.0) % MCV (80.0-98.0) fL MCH (27.0-33.0) pg MCHC (31.0-35.0) g/dl RDW (11.0-16.0) % Plt Count (160-400) X10*3/uL MPV (9.4-12.3) fL Immature Gran % (Auto) (0.0-0.4) % Neut % (Auto) (45-73) % Lymph % (Auto) (20-40) % Laurel % (Auto) (2-11) % Eos % (Auto) (0-4) % Baso % (Auto) (0-2) % Lymph # (Auto) (1.2-4.9) X10*3/uL Laurel # (Auto) (0.1-1.2) X10*3/uL Eos # (Auto) (0.0-0.4) X10*3/uL Baso # (Auto) (0.0-0.2) X10*3/uL Abs Immat Gran (auto) (0.00-0.03) X10*3/uL Absolute Neuts (auto) (2.0-8.3) x10*3/uL Absolute Nucleated RBC (0.0-0.012) X10*3/uL Nucleated RBC % (auto) (0.0-0.2) /100WBC Sodium (135-145) mmol/L Potassium (3.3-5.1) mmol/L Chloride (96-108) mmol/L Carbon Dioxide (22-29) mmol/L Anion Gap (12-20) BUN (9-16) mg/dL Creatinine (0.5-1.4) mg/dL Estim Creat Clear Calc Estimated GFR POC Glucose 103 (60-115) mg/dL Random Glucose (60-115) mg/dL Calcium (8.4-10.2) mg/dL Magnesium (1.6-2.6) mg/dL Total Bilirubin (0.0-1.0) mg/dL AST (5-31) U/L ALT (0-31) U/L Alkaline Phosphatase (39-117) U/L Total Protein (6.5-8.0) g/dL Albumin (3.5-5.0) g/dL Independent Interpretation I performed an independent interpretation of an: EKG and CT Scan Interpretation: My interpretation is in agreement with the radiologist's impression of these imaging studies. - EXAMINATION: CT HEAD WITHOUT CONTRAST CLINICAL INFORMATION: Pain injury COMPARISON: CT head from 11/08/2023 TECHNIQUE: Contiguous axial imaging was performed from the skull base to vertex without intravenous administration of contrast. This CT examination was performed using dose optimization techniques as appropriate, variously including the following: *Automated exposure control *Adjustment of mA and/or kV according to patient size (this includes techniques or standardized protocols for targeted exams where dose is matched to indication/reason for exam; i.e. extremities or head) *Use of iterative reconstruction technique DLP: 1103 mGy-cm FINDINGS: Known saccular aneurysm of the right MCA is less conspicuous on this noncontrast imaging. There is no evidence of acute intracranial hemorrhage or territorial infarction. No abnormal mass effect or midline shift is seen. Oneill to white matter differentiation is well preserved. No extra-axial fluid collections are identified. The ventricles are normal in size. There is no abnormal attenuation within the brain parenchyma. The osseous structures and soft tissues are normal. The mastoid air cells and visualized portions of the paranasal sinuses are well aerated. CT/CT head/brain wo IV con IMPRESSION: 1. No acute intracranial pathology. 2. Known saccular aneurysm of the right MCA is less conspicuous on this noncontrast imaging. EXAMINATION: Noncontrast CT scan of the cervical spine. INDICATION: Pain injury COMPARISON: CT cervical spine from 09/17/2023 TECHNIQUE: Helical, multidetector axial images were obtained from the occiput to the upper thorax. Coronal and sagittal reformats of the cervical spine were provided for interpretation. DLP: 1103 mGy-cm FINDINGS: No acute fractures or dislocations of the cervical spine are seen. Straightening with slight reversal of the normal cervical curvature. Slight grade 1 anterolisthesis of C4 on C5. Multilevel degenerative changes. 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 Anatomic alignment and positioning of the vertebral bodies and posterior elements is noted. The atlantoaxial joint and craniovertebral articulations are normal without evidence of subluxation. There is no prevertebral soft tissue swelling. The thyroid gland and visualized portions of the lung apices and mediastinum are unremarkable. IMPRESSION: 1. No acute visible fracture or dislocation. 2. Straightening with slight reversal of the normal cervical curvature. 3. Slight grade 1 anterolisthesis of C4 on C5. 4. Multilevel degenerative changes. Dictated By: Brennan Torres MD Signed By: Electronically signed by Brennan Torres MD 02/09/241947 - Vent. Rate: 065 BPM Atrial Rate: 065 BPM P-R Int: 182 ms QRS Dur: 082 ms QT Inc: 402 ms P-R-T Axes: 055 003 034 degrees QTc Int: 418 ms Normal sinus rhythm Normal ECG When compared with ECG of 15-NOV-2023 20:06, T wave inversion no longer evident in Inferior leads Electronically Signed By:JOSEMANUEL MARLEY Dictated By: Josemanuel Marley MD Signed By: Electronically signed by Josemanuel Marley MD 02/10/24 2251 Radiology Impression Discussion of test interpretation with radiology: I have reviewed the radiologist's reading. Independent Historian Clinical information obtained from an independent historian. History obtained from or confirmed by: EMS (EMS provided additional history and confirmed the history provided by the patient.) Critical Care Time Critical Care Time Critical Care Time: Yes Total Critical Care Time: 131 Attestation: I spent 131 minutes of Critical Care Time with this patient. This does not include time spent on separately reported billable procedures. Discharge Plan Discharge Clinical Impression: Fall, Hypoglycemia Patient Disposition: Home, Self-Care Instructions: Fall Prevention for Older Adults (ED), What to Do if Your Blood Sugar is Low (ED) Additional Instructions: Speak to your primary care provider about your diabetes medications - your blood sugar seems to be going too low. Follow up with your primary care provider. Return to the emergency department immediately if your symptoms worsen or if you develop any dizziness, shortness of breath, difficulty breathing, chest pain, blurry vision, loss of vision, nausea, vomiting, abdominal pain, fever, chills, back pain, or any other complaints. Prescriptions: No Action albuterol sulfate 2.5 mg /3 mL (0.083 %) solution for nebulization 1 vial inhalation Q4H PRN (Reason: wheezing) leootoilrn-hghtqbigbhlge-oqtc 50-325-40 mg tablet 1 tab PO Q6H PRN (Reason: Headache) atorvastatin 80 mg Tablet 80 mg PO BEDTIME Qty: 0 0RF aspirin 81 mg Tablet,Delayed Release (Dr/Ec) 81 mg PO DAILY Qty: 30 0RF amitriptyline 50 mg Tablet 100 mg PO BEDTIME Qty: 60 0RF magnesium oxide 400 mg (241.3 mg magnesium) Tablet 400 mg PO BEDTIME Qty: 30 0RF gabapentin 300 mg Capsule 300 mg PO BID Qty: 60 0RF metoprolol succinate 25 mg Tablet Extended Release 24 Hr 25 mg PO DAILY Qty: 0 0RF Protocol: Hold for SBP/HR < HOLD for SBP < : 90 HOLD for HR < : 60 fluticasone propionate 50 mcg/actuation [place],Suspension 1 spray intranasal DAILY Qty: 0 0RF metformin 500 mg Tablet Extended Release 24 Hr 500 mg PO BID Qty: 60 0RF risperidone 1 mg Tablet 1 mg PO BID Qty: 60 0RF loratadine 10 mg Tablet 10 mg PO DAILY Qty: 0 0RF pyridoxine (vitamin B6) 50 mg Tablet 50 mg PO DAILY Qty: 30 0RF montelukast 10 mg Tablet 10 mg PO BEDTIME Qty: 30 0RF sennosides [senna] 8.6 mg tablet 8.6 mg PO DAILY ondansetron HCl 4 mg tablet 4 mg PO Q8H PRN (Reason: nausea) clonazepam 1 mg tablet 1 mg PO BEDTIME pantoprazole 40 mg tablet,delayed release (DR/EC) 40 mg PO DAILY docusate sodium 100 mg capsule 100 mg PO BID nystatin 100,000 unit/gram powder 1 appl topical QID PRN (Reason: Rash) cefuroxime axetil 250 mg Tablet 250 mg PO BID Qty: 4 0RF insulin glargine [Lantus U-100 Insulin] 100 unit/mL Solution 15 unit subcut DAILY Qty: 0 0RF (DME) lancets [OneTouch Delica Plus Lancet] 33 gauge misc See Rx Instructions .ROUTE BID Qty: 100 Rx Instructions: As directed albuterol sulfate 90 mcg/actuation HFA aerosol inhaler 2 puff inhalation Q4H PRN (Reason: wheezing) (DME) OneTouch Ultra Test Strip See Rx Instructions .ROUTE BID Qty: 10 Rx Instructions: As directed Referrals: Ashwin Arzola III, MD [Primary Care Provider] - Interventions: ED Discharge Assessment Last Done: 02/09/24 21:30 Discharge Date/Time: 02/09/24 22:56 Print Language: Tamazight
--- NOTE | 2024-02-09 18:27 | PC.NURSE ---
Pt presents to ED from home via EMS. Pt reports she fell at 2AM on Friday morning when she got up to go to bathroom, pt reports she does not remember what happened, believes she lost consciousness. Fall unwitnessed, unknown head hit. Pt was able to push her button and then get herself back into bed, refused medical attention from EMS that night. Today community mental health social worker called for EMS because pts speech sounded different. Pt reports since fall she has had general weakness, pain on left side of head and neck and bilat arm pain. Pt uses walker at baseline. Pt denies any recent illnesses, changes in vision, N/V/D. Has hx of brain aneurysm. C-Collar by EMS. subassembler utilized, pt is alert and oriented. Breathing even and unlabored, skin WNL. Pt reports pain in head and neck, 8/10 and bilat arm pain 5/10. Pt reports general weakness, denies her speech sounding different. Pt neg for unilateral weakness, slurred speech, facial droop. Unable to raise bilat arms fully due to pain. VSS.
--- NOTE | 2024-02-09 19:00 | MHC.EDTECH ---
This tech took over care as PCT at 1900
[2024-02-09 19:01] LABS: MANUAL DIFF FLAG NO
[2024-02-09 19:06] LABS: Basophils Percent Auto 0.5 % (0-2); Eosinophils Absolute Auto 0.2 X10*3/uL (0.0-0.4); Eosinophils Percent Auto 3.2 % (0-4); Hematocrit 31.7 % (37.0-47.0); Hemoglobin 9.8 g/dl (12.0-16.0); Imm Gran Abs Auto 0.01 X10*3/uL (0.00-0.03); Imm Gran Pct Auto 0.2 % (0.0-0.4); Lymphocytes Absolute Auto 1.3 X10*3/uL (1.2-4.9); Lymphocytes Percent Auto 19.3 % (20-40); Mean Corpuscular HGB Conc 30.9 g/dl (31.0-35.0); Mean Corpuscular Hemoglobin 25.9 pg (27.0-33.0); Mean Corpuscular Volume 83.9 fL (80.0-98.0); Mean Platelet Volume 11.3 fL (9.4-12.3); Monocytes Absolute Auto 0.7 X10*3/uL (0.1-1.2); Monocytes Percent Auto 10.6 % (2-11); Neutrophils Absolute Auto 4.3 x10*3/uL (2.0-8.3); Neutrophils Percent Auto 66.2 % (45-73); Platelet Count 203 X10*3/uL (160-400); Red Blood Count 3.78 X10*6/uL (4.20-5.50); Red Cell Distribution Width 16.7 % (11.0-16.0); White Blood Count 6.5 X10*3/uL (4.8-10.8)
[2024-02-09 19:18] LABS: Alanine Aminotransferase 12 U/L (0-31); Albumin Level 3.6 g/dL (3.5-5.0); Alkaline Phosphatase 59 U/L (39-117); Anion Gap 15 (12-20); Aspartate Amino Transferase 18 U/L (5-31); Bilirubin Total 0.2 mg/dL (0.0-1.0); Blood Urea Nitrogen 15 mg/dL (9-16); Calcium 9.3 mg/dL (8.4-10.2); Carbon Dioxide 26 mmol/L (22-29); Chloride 104 mmol/L (96-108); Creatinine Clr Calc Pharmacy 81.2; Estimated Glomerular Filt Rate > 60; Glucose Random 59 mg/dL (60-115); Magnesium 1.7 mg/dL (1.6-2.6); Potassium 4.3 mmol/L (3.3-5.1); Sodium 141 mmol/L (135-145)
--- OUTSIDE RECORDS SUMMARY | 2024-02-09 19:22 | XMS_ITS ---
Author Name Jarvis Nixon Address [address] [place] [address] Organization Unknown Address [address] [place] [id number] ALLERGIES AND ADVERSE REACTIONS No information ASSESSMENT No information CHIEF COMPLAINT No information MEDICATIONS No information OBJECTIVE DATA No information PHYSICAL EXAMINATION No information TREATMENT PLAN Planned Care Start Date Provider Encounter for Check-up [id number] PROBLEMS No information RESULTS No information REVIEW OF SYSTEMS No information SUBJECTIVE DATA No information VITAL SIGNS No information
[2024-02-09] MEDS: Dextrose 50 % 25 GM/50 ML SYRINGE IVPUSH (19:34)
[2024-02-09 20:05] VITALS: BP 156/63; PULSE 74; RESP 17; TEMP 36.8; O2SAT 97
[2024-02-09 20:10] LABS: Glucose, Whole Blood 172 mg/dL (60-115)
[2024-02-09 20:10] LABS: Glucose, Whole Blood 132 mg/dL (60-115)
[2024-02-09 20:23] LABS: Glucose, Whole Blood 103 mg/dL (60-115)
[2024-02-09 21:21] VITALS: BP 112/47; PULSE 68; RESP 17; TEMP 36.4; O2SAT 95
[2024-02-09 21:30] VITALS: BP 112/47; PULSE 68; RESP 17; TEMP 36.4; O2SAT 95
== END 2024-02-09 22:56 | disposition home or self-care (01) ==
PROVIDERS: Physician Assistant Medical; Emergency Provider Emergency Medicine; PCP Internal Medicine
DX: R55 Syncope and collapse (principal); M54.2 Cervicalgia; R51.9 Headache, unspecified; E11.649 Type 2 diabetes mellitus with hypoglycemia without coma; Z79.4 Long term (current) use of insulin; Z79.899 Other long term (current) drug therapy
CPT/HCPCS: 36415; 70450; 72125; 80053; 82947; 83735; 85025; 93005; 96374; 99284; 99285

== ENCOUNTER → 2024-02-09 18:50 | Outpatient (BNV) | payer OTHER, SELFPAY | PROVIDERS: Emergency Provider Emergency Medicine; PCP Internal Medicine; Visit Provider Internal Medicine | DX: R55 Syncope and collapse (principal) | CPT/HCPCS: 93010 ==

== ENCOUNTER 2024-03-03 16:09 | Emergency (ER) | payer MEDICAID, SELFPAY ==
--- NOTE | ~2024-03-03 | CT_ITS ---
EXAMINATION: CT HEAD WITHOUT CONTRAST CLINICAL INFORMATION: Headache status-post fall. COMPARISON: Prior CT examinations, most recently 02/09/2024. TECHNIQUE: Contiguous axial imaging was performed from the skull base to vertex without intravenous administration of contrast. Multiplanar reformatted images are submitted. This CT examination was performed using dose optimization techniques as appropriate, variously including the following: *Automated exposure control *Adjustment of mA and/or kV according to patient size (this includes techniques or standardized protocols for targeted exams where dose is matched to indication/reason for exam; i.e. extremities or head) *Use of iterative reconstruction technique DLP: 1042 mGy-cm (head and cervical spine) FINDINGS: There is no acute intracranial hemorrhage or evidence of territorial infarction. No abnormal mass effect or midline shift is seen. Oneill to white matter differentiation is well preserved. There is no abnormal attenuation within the brain parenchyma. The ventricles are normal in size. No extra-axial fluid collections are identified. The previously noted of right MCA aneurysm is poorly visualized with noncontrast technique. The calvarium and scalp soft tissues are normal. The middle ear cavity and mastoid air cells are clear. The right mastoid air cells are poorly aerated. The visualized paranasal sinuses are clear. CT/CT cervical spine wo IV con IMPRESSION: No acute intracranial pathology. EXAMINATION: CT CERVICAL SPINE WITHOUT CONTRAST CLINICAL INFORMATION: Pain status-post fall. COMPARISON: CT cervical spine dated 03/01/2024. TECHNIQUE: Contiguous axial imaging was performed through the cervical spine without intravenous administration of contrast. Multiplanar reformatted images are submitted. This CT examination was performed using dose optimization techniques as appropriate, variously including the following: *Automated exposure control *Adjustment of mA and/or kV according to patient size (this includes techniques or standardized protocols for targeted exams where dose is matched to indication/reason for exam; i.e. extremities or head) *Use of iterative reconstruction technique DLP: As above FINDINGS: Vertebral body heights and alignment are normal. At C4-C5, there is a 2 mm anterolisthesis. At C5-C6, there is moderate disc space narrowing, with vacuum disc phenomenon. At C6-C7, there is mild disc space narrowing. The remaining disc spaces are relatively well-maintained. No acute fracture or spondylolisthesis is seen. There are limbus vertebra anterior to the C4-C5 through C6-C7 disc spaces. There is endplate arthropathy, most pronounced at C5-C6 and C6-C7. The posterior elements are intact. There is calcification of the ligamentum nuchae. There is no prevertebral soft tissue swelling. The dens is intact. The bilateral lung apices are clear. IMPRESSION: 1. No acute fracture or spondylolisthesis is seen. 2. There is multi-level cervical degenerative disc disease and endplate arthropathy. Degenerative disc disease is most pronounced at C5-C6, where it is moderate. Fleischner guidelines were followed.
--- NOTE | ~2024-03-03 | XR_ITS ---
EXAMINATION: XR SHOULDER, LEFT CLINICAL INFORMATION: Fall with shoulder pain COMPARISON: None available. TECHNIQUE: Three views of the left shoulder. FINDINGS: The bones and soft tissues are unremarkable with some minimal degenerative changes seen with some small osteophytes at the inferior glenoid.. No fracture. Glenohumeral and acromioclavicular alignment is anatomic with normal joint space. No abnormal soft tissue calcifications. XR/XR shoulder LT min 2V IMPRESSION: No evidence of an acute traumatic injury. Minimal degenerative changes.
--- NOTE | ~2024-03-03 | XR_ITS ---
EXAMINATION: XR CHEST CLINICAL INFORMATION: Chest pain and shortness of breath COMPARISON: Chest radiograph 11/08/2023 TECHNIQUE: Frontal view of the chest was obtained. FINDINGS: There is mild cardiac enlargement. Otherwise, no Significant abnormality is noted involving the heart, lungs, mediastinum, bony thorax or soft tissues. XR/XR chest 1V IMPRESSION: Mild cardiomegaly. No acute intrathoracic disease.
--- NOTE | 2024-03-03 16:12 | ECG_ITS ---
Test Reason : CHEST PAIN Blood Pressure : / mmHG Vent. Rate : 078 BPM Atrial Rate : 078 BPM P-R Int : 154 ms QRS Dur : 078 ms QT Int : 362 ms P-R-T Axes : 076 018 059 degrees QTc Int : 412 ms Normal sinus rhythm Normal ECG When compared with ECG of 09-FEB-2024 18:50, No significant change was found Referred By: Floridalma Manley Electronically Signed By:ALISHA JOLLY MD
--- NOTE | 2024-03-03 16:21 | ED.CHESTPAIN ---
HPI - Chest Pain General Chief Complaint: Chest Pain Stated Complaint: CHEST PAIN ANXIOUS Time Seen by Provider: 03/03/24 16:20 Source: patient and RN notes reviewed Mode of arrival: ambulatory Limitations: no limitations History of Present Illness ED Provider: Meagan Hyatt PA-C HPI narrative: 68 year old djiboutian speaking female with a past medical history of anemia, JOSÉ, HTN, HLD, DM, NSTEMI, delusions, cognitive impairment presenting to the emergency department via EMS, with complaints of sudden onset chest pain receiving bad news in [facility]. Patient reports that the family was discussing an issue when suddenly she developed chest pain. She reports a severe chest pain that is constant. She is feeling mildly short of breath. She is tearful and anxious. She denies any blurred vision, headache, dizziness, palpitations, abdominal pain, nausea, vomiting or diarrhea. Denies taking any medications prior to arrival. No other complaints or concerns at this time. MD complaint: chest pain Pertinent past history: prior MD Pain radiation: none Relieving factors: nothing Exacerbating factors: nothing Treatment prior to arrival: none Risk Factors Coronary artery disease risk factors: diabetes, hyperlipidemia and hypertension Related Data On Oral Contraceptives: No Home Medications ?Medication ?Instructions ?Recorded ?Confirmed albuterol sulfate 90 mcg/actuation 2 puff inhalation Q4H PRN wheezing 09/27/22 11/16/23 aerosol inhaler blood sugar diagnostic (OneTouch #10 ea 09/27/22 10/20/23 Ultra Test strips) lancets 33 gauge (OneTouch Delica #100 ea 09/27/22 10/20/23 Plus Lancet) albuterol sulfate 2.5 mg/3 mL 1 vial inhalation Q4H PRN wheezing 12/16/22 11/16/23 (0.083 %) solution for nebulization [id number]-[id number]-[id number] 1 tab PO Q6H PRN Headache 10/17/23 11/16/23 50 mg-325 mg-40 mg tablet clonazepam 1 mg tablet 1 mg PO BEDTIME 11/16/23 11/16/23 docusate sodium 100 mg capsule 100 mg PO BID 11/16/23 11/16/23 nystatin 100,000 unit/gram topical 1 appl topical QID PRN Rash 11/16/23 11/16/23 powder ondansetron HCl 4 mg tablet 4 mg PO Q8H PRN nausea 11/16/23 11/16/23 pantoprazole 40 mg tablet,delayed 40 mg PO DAILY 11/16/23 11/16/23 release sennosides 8.6 mg tablet (senna) 8.6 mg PO DAILY 11/16/23 11/16/23 Previous Rx's ?Medication ?Instructions ?Recorded amitriptyline 50 mg tablet 100 mg (2 x 50 mg) PO BEDTIME #60 10/29/23 tabs aspirin 81 mg tablet,delayed 81 mg PO DAILY #30 tabs 10/29/23 release atorvastatin 80 mg tablet 80 mg PO BEDTIME #0 tabs 10/29/23 fluticasone propionate 50 1 spray intranasal DAILY #0 grams 10/29/23 mcg/actuation nasal spray,suspension gabapentin 300 mg capsule 300 mg PO BID #60 caps 10/29/23 loratadine 10 mg tablet 10 mg PO DAILY #0 tabs 10/29/23 magnesium oxide 400 mg (241.3 mg 400 mg PO BEDTIME #30 tabs 10/29/23 magnesium) tablet metformin 500 mg tablet,extended 500 mg PO BID #60 tabs 10/29/23 release 24 hr metoprolol succinate 25 mg 25 mg PO DAILY #0 tabs 10/29/23 tablet,extended release 24 hr montelukast 10 mg tablet 10 mg PO BEDTIME #30 tabs 10/29/23 pyridoxine (vitamin B6) 50 mg 50 mg PO DAILY #30 tabs 10/29/23 tablet risperidone 1 mg tablet 1 mg PO BID #60 tabs 10/29/23 cefuroxime axetil 250 mg tablet 250 mg PO BID #4 tabs 11/19/23 insulin glargine 100 unit/mL 15 unit (0.15 mL) subcut DAILY #0 11/19/23 subcutaneous solution (Lantus mL U-100 Insulin) Allergies Allergy/AdvReac Type Severity Reaction Status Date / Time Penicillins Allergy Mild Swelling Verified 03/03/24 16:41 seafood Allergy Unknown Verified 03/03/24 16:41 Review of Systems Review of Systems: Yes all other systems are reviewed and are negative Constitutional: Constitutional: Reports as per [facility] Past Medical History Attestation statement: The following information was validated with the patient. Medical History Delusions Major neurocognitive disorder Chest pain Dyspnea on exertion COVID-19 GERD (gastroesophageal reflux disease) DJD (degenerative joint disease) COPD (chronic obstructive pulmonary disease) Bipolar disorder CTS (carpal tunnel syndrome) Hx of rheumatoid arthritis Diabetic neuropathy Urinary incontinence Aneurysm of middle cerebral artery Pulmonary nodules CHF (congestive heart failure) Palpitations Migraine History of COVID-19 Mild aortic stenosis Asthma Insulin dependent type 2 diabetes mellitus Mixed hyperlipidemia Mood disorder Essential hypertension Surgical History No pertinent past surgical history Hx of cataract surgery H/O: hysterectomy Hx of cholecystectomy History of carpal tunnel release Family History Family History Mother Myocardial infarction Father Myocardial infarction Sister Breast cancer Brother Spleen cancer Social History Social History Household Members: None Housing: Apartment Do you presently have visiting nurse or other home services: No Unable to assess alcohol history related to: Unknown Alcohol intake: never Comment: report given by Cleo menendez Patient Tobacco Use Status: Never used Tobacco Tobacco use type: Cigarette Cigarette Packs Per Day: 0.2 Cigarettes Per Day: 4.0 Years Smoked: [id number] Smoked in Last 30 Days: No e-Cigarette/Vaping Use: Never Used Second Hand Smoke Exposure: No Use of substances other than those prescribed or required for medical reasons: No Advance Directives: No Advance Directives Information Provided: No Advance Directives Date on File: 11/20/23 service: No Current occupational status: retired Sexual orientation: Straight/Heterosexual Physical Exam Vital Signs: Vital Signs: Last Vital Signs Temp 98.0 F 03/04/24 00:01 Pulse 69 03/04/24 00:01 Resp 18 03/04/24 00:01 BP 133/54 L 03/04/24 00:01 Pulse Ox 96 03/04/24 00:01 O2 Del Method Room Air 03/04/24 00:01 BMI result Body Mass Index 32.3 Const: General: cooperative, comfortable and no acute distress Orientation/consciousness: patient oriented x3 Limitations: no limitations HEENT: Head: Yes normal to inspection, Yes normocephalic, Yes atraumatic, No Matute's sign, No hematoma, No laceration, No raccoon eyes, No scalp tenderness and No periorbital ecchymosis Ears: hearing grossly normal bilaterally and TM's normal bilaterally General nose exam: Normal external nose present Face and sinus: Yes normal facial exam Mouth: Normal oral and palatal mucosa present, oropharynx normal and moist mucous membranes Throat: Yes posterior oropharynx normal Eyes: General: appearance normal, both eyes and all related structures Eyelids: Yes eyelids normal Conjunctivae: conjunctivae normal Sclerae: sclerae normal Pupils: Equal, round and reactive pupils present EOM: EOMs intact bilaterally Neck: Other: No midline cervical spine tenderness full range of motion of the neck. No nuchal rigidity. Neck: Yes normal visual inspection, Yes full ROM and Yes no lymphadenopathy Lymphatic: no lymphadenopathy noted Chest: Chest palpation & inspection: normal inspection of the chest Resp: Effort & Inspection: normal respiratory effort and able to speak in complete sentences Auscultation: clear to auscultation bilaterally, no crackles, no rales, no rhonchi and no wheezes Cardio: Rate: regular rate Rhythm: regular rhythm Heart sounds: S1 normal heart sound present and S2 normal heart sound present GI: Inspection: Yes normal to inspection Skin: General skin exam: no rashes or lesions noted Trauma: no lacerations or abrasions Wounds: no wounds Neuro: General: patient oriented x3 and moves all extremities Cranial nerves: Yes Equal, round and reactive pupils present Extrem: Other: Left posterior shoulder with superficial abrasion and slight hematoma noted, tender to palpation, full range of motion. Strong radial pulse. General: Yes normal to inspection Right upper extremity: normal to inspection Left upper extremity: normal to inspection Right lower extremity: normal to inspection Left lower extremity: normal to inspection Course Reevaluation(s) Reevaluation #1: Patient re-evaluated, feeling much better. She is reporting some ongoing headache and neck pain as well as left shoulder pain. Daughter at bedside reports that she had a slip and fall over the weekend. Daughter reports that she was walking to the restroom middle of the night two nights ago and slipped on her urine and fell and hit her head on the toilet. Patient reports no loss of consciousness. She states that she was on the ground for several minutes and was able to get herself off of the floor without assistance. X-ray of the left shoulder was added, CT head and neck are still pending. Time: 18:51 Reevaluation #2: CT head and neck unremarkable for any acute findings. X-ray of the left shoulder was unremarkable. Patient has a heart score of 4, with flat troponins. Workup today reassuring. Patient re-evaluated, she is feeling much better after medications. She is asymptomatic and no longer having chest pain. She is speaking in full sentences under no acute distress. Vital signs within normal limits. Discussed workup with patient as well as daughter at bedside with research worker encyclopedia. They understand and agree with the plan, patient stable for discharge. Medications Administered Discontinued Medications Generic Name Dose Route Start Last Admin Trade Name Freq PRN Reason Stop Dose Admin Lorazepam 1 mg 03/03/24 16:40 03/03/24 17:27 Lorazepam 2 Mg/Ml Vial IVPUSH 03/03/24 16:41 1 mg ONCE ONE Administration Morphine Sulfate 4 mg 03/03/24 16:37 03/03/24 17:27 Morphine Sulfate 4 Mg/Ml Cartridge IVPUSH 03/03/24 16:38 4 mg ONCE ONE Administration Protocol Medical Decision Making Medical Decision Making [facility] Narrative: 68 year old djiboutian speaking female with a past medical history of anemia, JOSÉ, HTN, HLD, DM, NSTEMI, delusions, cognitive impairment presenting to the emergency department via EMS, with complaints of sudden onset chest pain and back pain after receiving bad news and [employer]. On arrival, blood pressure 135/58, blood pressure on opposite arm the same. Patient tearful, calling out daughter's name, stating that she is upset secondary to a bad news detail that she received while in [employer]. Reporting chest pain. Patient is anxious appearing. EKG performed at bedside, normal sinus rhythm at a ventricular rate of 78 beats per minute, no evidence of STEMI at this time. Differential diagnoses include anxiety, STEMI, NSTEMI, ACS, anxiety Plan: Labs, EKG, chest x-ray, IV morphine, IV Ativan Differential Diagnosis Differential Diagnoses: The differential diagnosis associated with the presentation includes See above Admission/Observation Consideration of admission/observation: Escalation of care including admission/observation considered Escalation of care including admission/observation considered however given workup today not warranted at this time. Lab Data [facility] Lab Attestation statement: I reviewed the patient's lab results. No leukocytosis, normocytic anemia noted with a hemoglobin hematocrit at 10.6/33.8. Chemistry with slight hypo magnesium at 1.5, troponin x2 with no delta change. 03/03/24 16:53 03/03/24 16:53 Labs: Lab Results 03/03/24 03/03/24 Range/Units 16:53 21:32 WBC 7.1 (4.8-10.8) X10*3/uL RBC 4.12 L (4.20-5.50) X10*6/uL Hgb 10.6 L (12.0-16.0) g/dl Hct 33.8 L (37.0-47.0) % MCV 82.0 (80.0-98.0) fL MCH 25.7 L (27.0-33.0) pg MCHC 31.4 (31.0-35.0) g/dl RDW 17.3 H (11.0-16.0) % Plt Count 205 (160-400) X10*3/uL MPV 12.3 (9.4-12.3) fL Immature Gran % (Auto) 0.3 (0.0-0.4) % Neut % (Auto) 67.0 (45-73) % Lymph % (Auto) 21.0 (20-40) % Reeves % (Auto) 8.5 (2-11) % Eos % (Auto) 2.8 (0-4) % Baso % (Auto) 0.4 (0-2) % Lymph # (Auto) 1.5 (1.2-4.9) X10*3/uL Reeves # (Auto) 0.6 (0.1-1.2) X10*3/uL Eos # (Auto) 0.2 (0.0-0.4) X10*3/uL Baso # (Auto) 0.0 (0.0-0.2) X10*3/uL Abs Immat Gran (auto) 0.02 (0.00-0.03) X10*3/uL Absolute Neuts (auto) 4.7 (2.0-8.3) x10*3/uL Absolute Nucleated RBC 0.000 (0.0-0.012) X10*3/uL Nucleated RBC % (auto) 0.0 (0.0-0.2) /100WBC PT 12.6 (11.1-13.3) SEC INR 1.0 (0.9-1.1) APTT 29.8 (26.0-36.8) SEC Sodium 142 (135-145) mmol/L Potassium 3.7 (3.3-5.1) mmol/L Chloride 106 (96-108) mmol/L Carbon Dioxide 26 (22-29) mmol/L Anion Gap 14 (12-20) BUN 14 (9-16) mg/dL Creatinine 0.68 (0.5-1.4) mg/dL Estim Creat Clear Calc 85.5 Estimated GFR > 60 Random Glucose 106 (60-115) mg/dL Calcium 9.7 (8.4-10.2) mg/dL Magnesium 1.5 L (1.6-2.6) mg/dL Total Bilirubin 0.3 (0.0-1.0) mg/dL Direct Bilirubin 0.1 (0.0-0.5) mg/dL AST 16 (5-31) U/L ALT 12 (0-31) U/L Alkaline Phosphatase 68 (39-117) U/L Total Creatine Kinase 79 (26-140) U/L Troponin I High Sens 14.5 16.5 (<3.5-17.0) ng/L Total Protein 7.4 (6.5-8.0) g/dL Albumin 3.9 (3.5-5.0) g/dL Lipase 28 (8-78) U/L Independent Interpretation I performed an independent interpretation of an: EKG and Plain X-Ray Interpretation: EKG normal sinus rhythm at a ventricular rate of 78 beats per minute, KS interval 154, QTC 412, no ST elevation or depression. I reviewed the chest x-ray and agree with the radiology report. Radiology Impression Discussion of test interpretation with radiology: I have reviewed the radiologist's reading. Radiologist Impression: EXAMINATION: XR SHOULDER, LEFT CLINICAL INFORMATION: Fall with shoulder pain COMPARISON: None available. TECHNIQUE: Three views of the left shoulder. FINDINGS: The bones and soft tissues are unremarkable with some minimal degenerative changes seen with some small osteophytes at the inferior glenoid.. No fracture. Glenohumeral and acromioclavicular alignment is anatomic with normal joint space. No abnormal soft tissue calcifications. XR/XR shoulder LT min 2V IMPRESSION: No evidence of an acute traumatic injury. Minimal degenerative changes. Dictated By: Omid Harden MD FINDINGS: Vertebral body heights and alignment are normal. At C4-C5, there is a 2 mm anterolisthesis. At C5-C6, there is moderate disc space narrowing, with vacuum disc phenomenon. At C6-C7, there is mild disc space narrowing. The remaining disc spaces are relatively well-maintained. No acute fracture or spondylolisthesis is seen. There are limbus vertebra anterior to the C4-C5 through C6-C7 disc spaces. There is endplate arthropathy, most pronounced at C5-C6 and C6-C7. The posterior elements are intact. There is calcification of the ligamentum nuchae. There is no prevertebral soft tissue swelling. The dens is intact. The bilateral lung apices are clear. IMPRESSION: 1. No acute fracture or spondylolisthesis is seen. 2. There is multi-level cervical degenerative disc disease and endplate arthropathy. Degenerative disc disease is most pronounced at C5-C6, where it is moderate. Dictated By: Sotero Gray MD XR/XR chest 1V IMPRESSION: Mild cardiomegaly. No acute intrathoracic disease. Dictated By: Omid Harden MD Independent Historian Clinical information obtained from an independent historian. History obtained from or confirmed by: Other (Daughter) Chronic Conditions Patient?s care impacted by: Diabetes and Hypertension Scores Heart Score History: -0- slightly suspicious ECG: -0- normal Age: -2- > or = 65 Risk factory: -2- 3 or more risk factors or treated atherosclerosis Troponin: -0- < or = normal limit Score: 4 Risk: 16.6% Critical Care Time Critical Care Time Critical Care Time: Yes Total Critical Care Time: 35 Attestation: I have personally provided critical care time exclusive of time spent on separately billable procedures. Time includes review of lab data, radiology results, discussion with consultants, and monitoring for potential decompensation. Intervention performed as documented. Discharge Plan Discharge Clinical Impression: Contusion of left shoulder Qualifiers: Encounter type: initial encounter Qualified Code(s): S40.012A - Contusion of left shoulder, initial encounter Chest pain Qualifiers: Chest pain type: unspecified Qualified Code(s): R07.9 - Chest pain, unspecified Patient Disposition: Home, Self-Care Instructions: Chest Pain (ED), Contusion in Adults (ED) Additional Instructions: You were seen in the emergency department due to chest pain. Your CT of your head in your neck do not show any new abnormalities. Your EKG, and chest x-ray were normal. Your workup today was reassuring. Plenty of fluids get plenty of rest. Follow-up with your primary care physician. If any new or worsening symptoms occur including to severe chest pain, headache, dizziness, blurred vision, please return for re-evaluation. Prescriptions: No Action albuterol sulfate 2.5 mg /3 mL (0.083 %) solution for nebulization 1 vial inhalation Q4H PRN (Reason: wheezing) wncpfbzjra-vkntneplmbjfu-fkjh 50-325-40 mg tablet 1 tab PO Q6H PRN (Reason: Headache) atorvastatin 80 mg Tablet 80 mg PO BEDTIME Qty: 0 0RF aspirin 81 mg Tablet,Delayed Release (Dr/Ec) 81 mg PO DAILY Qty: 30 0RF amitriptyline 50 mg Tablet 100 mg PO BEDTIME Qty: 60 0RF magnesium oxide 400 mg (241.3 mg magnesium) Tablet 400 mg PO BEDTIME Qty: 30 0RF gabapentin 300 mg Capsule 300 mg PO BID Qty: 60 0RF metoprolol succinate 25 mg Tablet Extended Release 24 Hr 25 mg PO DAILY Qty: 0 0RF Protocol: Hold for SBP/HR < HOLD for SBP < : 90 HOLD for HR < : 60 fluticasone propionate 50 mcg/actuation [place],Suspension 1 spray intranasal DAILY Qty: 0 0RF metformin 500 mg Tablet Extended Release 24 Hr 500 mg PO BID Qty: 60 0RF risperidone 1 mg Tablet 1 mg PO BID Qty: 60 0RF loratadine 10 mg Tablet 10 mg PO DAILY Qty: 0 0RF pyridoxine (vitamin B6) 50 mg Tablet 50 mg PO DAILY Qty: 30 0RF montelukast 10 mg Tablet 10 mg PO BEDTIME Qty: 30 0RF sennosides [senna] 8.6 mg tablet 8.6 mg PO DAILY ondansetron HCl 4 mg tablet 4 mg PO Q8H PRN (Reason: nausea) clonazepam 1 mg tablet 1 mg PO BEDTIME pantoprazole 40 mg tablet,delayed release (DR/EC) 40 mg PO DAILY docusate sodium 100 mg capsule 100 mg PO BID nystatin 100,000 unit/gram powder 1 appl topical QID PRN (Reason: Rash) cefuroxime axetil 250 mg Tablet 250 mg PO BID Qty: 4 0RF insulin glargine [Lantus U-100 Insulin] 100 unit/mL Solution 15 unit subcut DAILY Qty: 0 0RF (DME) lancets [OneTouch Delica Plus Lancet] 33 gauge misc See Rx Instructions .ROUTE BID Qty: 100 Rx Instructions: As directed albuterol sulfate 90 mcg/actuation HFA aerosol inhaler 2 puff inhalation Q4H PRN (Reason: wheezing) (DME) OneTouch Ultra Test Strip See Rx Instructions .ROUTE BID Qty: 10 Rx Instructions: As directed Interventions: ED Discharge Assessment Last Done: 03/04/24 00:01 Discharge Date/Time: 03/04/24 00:10 Print Language: Thai
[2024-03-03 16:38] VITALS: BP 135/58; BP 159/89; PULSE 73; PULSE 93; RESP 18; TEMP 36.6; O2SAT 97; BMI 32.3
[2024-03-03 16:59] LABS: MANUAL DIFF FLAG NO
[2024-03-03] MEDS: LORazepam 2 MG/ML VIAL 1 MG IVPUSH (17:27)
[2024-03-03] MEDS: Morphine Sulfate 4 MG/ML CARTRIDGE IVPUSH (17:27)
[2024-03-03 17:32] VITALS: BP 127/54; PULSE 74; RESP 20; O2SAT 97
[2024-03-03 17:34] LABS: Hematocrit 33.8 % (37.0-47.0); Hemoglobin 10.6 g/dl (12.0-16.0); Mean Corpuscular Hemoglobin 25.7 pg (27.0-33.0); Red Blood Count 4.12 X10*6/uL (4.20-5.50); White Blood Count 7.1 X10*3/uL (4.8-10.8)
[2024-03-03 17:35] LABS: Mean Corpuscular HGB Conc 31.4 g/dl (31.0-35.0); Platelet Count 205 X10*3/uL (160-400); Red Cell Distribution Width 17.3 % (11.0-16.0)
[2024-03-03 17:36] LABS: Imm Gran Pct Auto 0.3 % (0.0-0.4); Mean Platelet Volume 12.3 fL (9.4-12.3); Monocytes Percent Auto 8.5 % (2-11)
[2024-03-03 17:37] LABS: Basophils Percent Auto 0.4 % (0-2); Eosinophils Absolute Auto 0.2 X10*3/uL (0.0-0.4); Eosinophils Percent Auto 2.8 % (0-4); Imm Gran Abs Auto 0.02 X10*3/uL (0.00-0.03); Lymphocytes Absolute Auto 1.5 X10*3/uL (1.2-4.9); Monocytes Absolute Auto 0.6 X10*3/uL (0.1-1.2); Neutrophils Absolute Auto 4.7 x10*3/uL (2.0-8.3)
[2024-03-03 17:45] LABS: Partial Thromboplastin Time 29.8 SEC (26.0-36.8); Prothrombin Time 12.6 SEC (11.1-13.3)
[2024-03-03 17:48] LABS: Alanine Aminotransferase 12 U/L (0-31); Albumin Level 3.9 g/dL (3.5-5.0); Alkaline Phosphatase 68 U/L (39-117); Anion Gap 14 (12-20); Aspartate Amino Transferase 16 U/L (5-31); Bilirubin Direct 0.1 mg/dL (0.0-0.5); Bilirubin Total 0.3 mg/dL (0.0-1.0); Blood Urea Nitrogen 14 mg/dL (9-16); Calcium 9.7 mg/dL (8.4-10.2); Carbon Dioxide 26 mmol/L (22-29); Chloride 106 mmol/L (96-108); Creatinine Clr Calc Pharmacy 85.5; Estimated Glomerular Filt Rate > 60; Glucose Random 106 mg/dL (60-115); Lipase 28 U/L (8-78); Magnesium 1.5 mg/dL (1.6-2.6); Potassium 3.7 mmol/L (3.3-5.1); Sodium 142 mmol/L (135-145); Total Protein 7.4 g/dL (6.5-8.0)
[2024-03-03 17:49] LABS: Troponin-I High Sensitivity 14.5 ng/L (<3.5-17.0)
[2024-03-03 19:00] VITALS: BP 140/49; PULSE 71; RESP 16; TEMP 36.7; O2SAT 96
[2024-03-03 20:16] VITALS: BP 144/60; PULSE 66; RESP 16; TEMP 36.6; O2SAT 96
--- NOTE | 2024-03-03 20:18 | MHC.EDTECH ---
This tech took over care of patient at 1900,hourly rounds and vitals completed,patient is resting comfortably at this time,call godfrey in reach
[2024-03-03 22:01] LABS: Troponin-I High Sensitivity 16.5 ng/L (<3.5-17.0)
[2024-03-03 22:08] VITALS: BP 156/55; PULSE 73; RESP 20; TEMP 36.7; O2SAT 96
[2024-03-03 23:29] VITALS: BP 133/54; PULSE 69; RESP 18; TEMP 36.7; O2SAT 96
--- NOTE | 2024-03-03 23:31 | MHC.EDTECH ---
Hourly rounds and vitals completed,patient is resting at this time,daughter at bedside and call godfrey in reach
[2024-03-04 00:01] VITALS: BP 133/54; PULSE 69; RESP 18; TEMP 36.7; O2SAT 96
== END 2024-03-04 00:10 | disposition home or self-care (01) ==
PROVIDERS: Physician Assistant Medical; Emergency Provider Emergency Medicine; PCP Internal Medicine
DX: S40.012A Contusion of left shoulder, initial encounter (principal); W01.0XXA Fall on same level from slipping, tripping and stumbling without subsequent striking against object, initial encounter; Y93.89 Activity, other specified; Y92.9 Unspecified place or not applicable; Y99.9 Unspecified external cause status; I50.9 Heart failure, unspecified; I11.0 Hypertensive heart disease with heart failure; R07.9 Chest pain, unspecified; E11.9 Type 2 diabetes mellitus without complications; D64.9 Anemia, unspecified; G31.84 Mild cognitive impairment of uncertain or unknown etiology; Z79.899 Other long term (current) drug therapy
CPT/HCPCS: 36415; 70450; 71045; 72125; 73030; 80048; 80076; 82550; 83690; 83735; 84484; 85025; 85610; 85730; 93005; 96374; 96375; 99284; J2060; J2270

== ENCOUNTER → 2024-03-03 16:12 | Outpatient (BNV) | payer MEDICAID, SELFPAY | PROVIDERS: Emergency Provider Emergency Medicine; PCP Internal Medicine; Visit Provider Internal Medicine Cardiovascular Disease | DX: R07.9 Chest pain, unspecified (principal) | CPT/HCPCS: 93010 ==

== ENCOUNTER 2024-03-14 08:36 | Emergency (ER) | payer OTHER, SELFPAY ==
--- NOTE | ~2024-03-14 | XR_ITS ---
EXAMINATION: XR ABDOMEN KUB CLINICAL INDICATION: Constipation x3 weeks. COMPARISON: Radiograph dated 12/16/2022 TECHNIQUE: AP view of the abdomen. FINDINGS: Moderate to large volume of stool is present in the colon, primarily in the descending colon, sigmoid colon, and rectum. Nondilated bowel gas pattern. No appreciable intraperitoneal free air on these images. Atelectasis is present in the left lung base. Cholecystomy clips in the right upper quadrant. Bones are osteopenic. Degenerative disc disease is present in the lumbar spine with left convex scoliosis. XR/XR KUB IMPRESSION: Moderate to large volume of stool in the colon. Nondilated bowel gas pattern.
[2024-03-14 08:48] VITALS: BP 136/58; PULSE 89; RESP 18; TEMP 36.1; O2SAT 95; BMI 29.8
--- NOTE | 2024-03-14 09:29 | ED.ABDPAIN ---
HPI - Abdominal Pain General Chief Complaint: Abdominal Pain Stated Complaint: Constipation Time Seen by Provider: 03/14/24 09:07 Source: patient, RN notes reviewed and old records reviewed Mode of arrival: ambulatory Limitations: no limitations History of Present Illness ED Provider: ELIANE IQBAL PA-C HPI narrative: 68 year old [place] speaking female with past medical history significant for hypertension, asthma, CHF, COPD, asthma, GERD, migraines, type 2 diabetes presents to the ED today for evaluation of constipation x1 month. Admits to minimal lower abdominal discomfort and mild nausea. No vomiting. States she is passing gas. She is not taking any OTC pain medications for this at home. She does report history of constipation. She has been taking both senna and docusate at home which was prescribed to her 6 months ago. Denies fever, chills, flank pain, dysuria, hematuria, diarrhea. Related Data Home Medications ?Medication ?Instructions ?Recorded ?Confirmed albuterol sulfate 90 mcg/actuation 2 puff inhalation Q4H PRN wheezing 09/27/22 11/16/23 aerosol inhaler blood sugar diagnostic (OneTouch #10 ea 09/27/22 10/20/23 Ultra Test strips) lancets 33 gauge (OneTouch Delica #100 ea 09/27/22 10/20/23 Plus Lancet) albuterol sulfate 2.5 mg/3 mL 1 vial inhalation Q4H PRN wheezing 12/16/22 11/16/23 (0.083 %) solution for nebulization [id number]-[id number] 1 tab PO Q6H PRN Headache 10/17/23 11/16/23 50 mg-325 mg-40 mg tablet clonazepam 1 mg tablet 1 mg PO BEDTIME 11/16/23 11/16/23 docusate sodium 100 mg capsule 100 mg PO BID 11/16/23 11/16/23 nystatin 100,000 unit/gram topical 1 appl topical QID PRN Rash 11/16/23 11/16/23 powder ondansetron HCl 4 mg tablet 4 mg PO Q8H PRN nausea 11/16/23 11/16/23 pantoprazole 40 mg tablet,delayed 40 mg PO DAILY 11/16/23 11/16/23 release sennosides 8.6 mg tablet (senna) 8.6 mg PO DAILY 11/16/23 11/16/23 Previous Rx's ?Medication ?Instructions ?Recorded amitriptyline 50 mg tablet 100 mg (2 x 50 mg) PO BEDTIME #60 10/29/23 tabs aspirin 81 mg tablet,delayed 81 mg PO DAILY #30 tabs 10/29/23 release atorvastatin 80 mg tablet 80 mg PO BEDTIME #0 tabs 10/29/23 fluticasone propionate 50 1 spray intranasal DAILY #0 grams 10/29/23 mcg/actuation nasal spray,suspension gabapentin 300 mg capsule 300 mg PO BID #60 caps 10/29/23 loratadine 10 mg tablet 10 mg PO DAILY #0 tabs 10/29/23 magnesium oxide 400 mg (241.3 mg 400 mg PO BEDTIME #30 tabs 10/29/23 magnesium) tablet metformin 500 mg tablet,extended 500 mg PO BID #60 tabs 10/29/23 release 24 hr metoprolol succinate 25 mg 25 mg PO DAILY #0 tabs 10/29/23 tablet,extended release 24 hr montelukast 10 mg tablet 10 mg PO BEDTIME #30 tabs 10/29/23 pyridoxine (vitamin B6) 50 mg 50 mg PO DAILY #30 tabs 10/29/23 tablet risperidone 1 mg tablet 1 mg PO BID #60 tabs 10/29/23 cefuroxime axetil 250 mg tablet 250 mg PO BID #4 tabs 11/19/23 insulin glargine 100 unit/mL 15 unit (0.15 mL) subcut DAILY #0 11/19/23 subcutaneous solution (Lantus mL U-100 Insulin) Allergies Allergy/AdvReac Type Severity Reaction Status Date / Time Penicillins Allergy Mild Swelling Verified 03/14/24 08:50 seafood Allergy Unknown Verified 03/14/24 08:50 Review of Systems Review of Systems Constitutional: No fever, chills, fatigue, night sweats, weight changes ENT/Mouth: No ear pain, hearing loss, nasal congestion, sinus pain, rhinorrhea, sore throat Eyes: No eye pain, swelling, redness, vision changes, discharge Cardio: No chest pain, palpitations, OLIVA, orthopnea, peripheral edema Pulm: No SOB, cough, sputum, wheezing, dyspnea, hemoptysis GI: No nausea, vomiting, hematemesis, abdominal pain, diarrhea, hematochezia, melena, +constipation : No irregular bleeding, dysuria, frequency, urgency, hesitancy, hematuria, flank pain, urinary flow changes, urinary incontinence or retention MSK: No back pain, neck pain, joint pain, myalgias Skin: No lesions, rashes Neuro: No weakness, numbness, paresthesias, LOC, dizziness, headache Psych: No anxiety/panic, depression, SI/HI, AH/VH All other systems reviewed and are negative. FOR[facility]LY [facility] Past Medical History Attestation statement: The following information was validated with the patient. Source: old records reviewed and nursing notes reviewed Medical History Delusions Major neurocognitive disorder Chest pain Dyspnea on exertion COVID-19 GERD (gastroesophageal reflux disease) DJD (degenerative joint disease) COPD (chronic obstructive pulmonary disease) Bipolar disorder CTS (carpal tunnel syndrome) Hx of rheumatoid arthritis Diabetic neuropathy Urinary incontinence Aneurysm of middle cerebral artery Pulmonary nodules CHF (congestive heart failure) Palpitations Migraine History of COVID-19 Mild aortic stenosis Asthma Insulin dependent type 2 diabetes mellitus Mixed hyperlipidemia Mood disorder Essential hypertension Surgical History No pertinent past surgical history Hx of cataract surgery H/O: hysterectomy Hx of cholecystectomy History of carpal tunnel release Family History Family History Mother Myocardial infarction Father Myocardial infarction Sister Breast cancer Brother Spleen cancer Social History Social History Household Members: None Housing: Apartment Do you presently have visiting nurse or other home services: No Unable to assess alcohol history related to: Unknown Alcohol intake: never Comment: report given by Cleo menendez Patient Tobacco Use Status: Never used Tobacco Tobacco use type: Cigarette Cigarette Packs Per Day: 0.2 Cigarettes Per Day: 4.0 Years Smoked: [id number] e-Cigarette/Vaping Use: Never Used Second Hand Smoke Exposure: No Advance Directives: Yes Advance Directives on File: Yes Advance Directives Date on File: 11/20/23 Do you have a plan to hurt others: No Plan service: No Current occupational status: retired Sexual orientation: Straight/Heterosexual Physical Exam ED Vital Signs: Vital Signs - 24 hr 03/14/24 08:48 03/14/24 11:59 Temperature 97 F 97.7 F Pulse Rate 89 77 Respiratory Rate 18 18 Blood Pressure 136/58 L 132/69 Pulse Oximetry 95 98 Oxygen Delivery Method Room Air Room Air BMI result Body Mass Index 29.8 Vital signs stable Const General: cooperative, healthy appearing and no acute distress Orientation/consciousness: patient oriented x3 Limitations: no limitations HENMT Head: Yes normal to inspection, Yes No palpable skull fracture present, Yes normocephalic and Yes atraumatic Eyes General: appearance normal, both eyes and all related structures Conjunctivae: conjunctivae normal Sclerae: sclerae normal Pupils: Equal, round and reactive pupils present Neck Neck: Yes normal visual inspection, Yes full ROM and Yes no lymphadenopathy Resp Effort & Inspection: normal respiratory effort and able to speak in complete sentences Auscultation: clear to auscultation bilaterally Cardio Rate: regular rate Rhythm: regular rhythm GI Other: Abdomen soft, nondistended, nontender to palpation, no rebound tenderness or guarding. Normoactive bowel sounds x4. Inspection: Yes normal to inspection General: Yes no CVA tenderness Back/Spine/Pelvis Back: no CVA tenderness Skin General skin exam: no rashes or lesions noted Neuro General: patient oriented x3 and gait normal Cranial nerves: Yes Equal, round and reactive pupils present Extrem General: Yes normal to inspection and Yes full ROM Course Course Course Narrative: 1145-- On rectal exam, there is hard stool within the rectal vault palpable at my finger tip. Unable to disimpact. X-ray KUB showing moderate to large volume of stool in colon. There is nondilated bowel gas pattern. No concern for obstruction. Patient received enema in the ED today with subsequent passage of bowel movement. States she is feeling better. Will discharge her home with continued docusate and senna. she is agreeable with this. Patient has remained stable throughout ED visit today. Discussed worrisome signs and symptoms and when to return to the ED. All questions answered at this time. Patient is agreeable with disposition and stable for discharge. Medical Decision Making Medical Decision Making MDM Narrative: 68 year old [place] speaking female with past medical history significant for hypertension, asthma, CHF, COPD, asthma, GERD, migraines, type 2 diabetes presents to the ED today for evaluation of constipation x1 month. Vital signs stable, afebrile. She is nontoxic-appearing and in no acute distress. Lying comfortably on the exam bed. Obese abdomen, soft, nondistended, nontender to palpation. No rebound tenderness or guarding. No palpable masses. Negative Rovsing sign. Negative McBurney point tenderness. No CVAT bilaterally. Ambulating with steady gait. Skin warm, dry, intact. On rectal exam there is normal rectal sphincter tone. No external masses or lesions. There is palpable hard stool in rectal vault palpated at tip of my finger. Unable to disimpact. Guac not performed. Differential diagnosis includes constipation. Low suspicion for SBO, ischemic bowel, diverticulitis. X-ray KUB ordered prior to my assumption of care. Plan for disposition. Differential Diagnosis Differential Diagnoses: The differential diagnosis associated with the presentation includes As above Admission/Observation Consideration of admission/observation: Escalation of care including admission/observation considered Not indicated Independent Interpretation I performed an independent interpretation of an: Plain X-Ray Interpretation: X-ray KUB showing large amount of stool in the colon, agree with radiologist's interpretation. Radiology Impression Discussion of test interpretation with radiology: I have reviewed the radiologist's reading. Radiologist Impression: EXAMINATION: XR ABDOMEN KUB CLINICAL INDICATION: Constipation x3 weeks. COMPARISON: Radiograph dated 12/16/2022 TECHNIQUE: AP view of the abdomen. FINDINGS: Moderate to large volume of stool is present in the colon, primarily in the descending colon, sigmoid colon, and rectum. Nondilated bowel gas pattern. No appreciable intraperitoneal free air on these images. Atelectasis is present in the left lung base. Cholecystomy clips in the right upper quadrant. Bones are osteopenic. Degenerative disc disease is present in the lumbar spine with left convex scoliosis. XR/XR KUB IMPRESSION: Moderate to large volume of stool in the colon. Nondilated bowel gas pattern. External Record Review External record reviewed: Inpatient record, Office record, Outpatient record, Prior outpatient labs, Prior outpatient radiology, Primary care record and Outside ED record Chronic Conditions Patient?s care impacted by: Other (constipation) Social Determinants Patient?s care significantly limited by Social Determinants of Health including: Other Social Determinant of Health Critical Care Time Critical Care Time Critical Care Time: No Discharge Plan Discharge Clinical Impression: Constipation Patient Disposition: Home, Self-Care Instructions: Constipation (ED) Additional Instructions: Your xray shows significant stool burden in the colon. There is no evidence of obstruction. You were given an enema in ED today and you were able to move your bowels. Continue using stool softeners such as colace 100mg twice daily. You may try milk of magnesia as well. Follow up with your doctor in 2 weeks. Return with new or worsening symptoms. In the case of an emergency call 911. Prescriptions: No Action albuterol sulfate 2.5 mg /3 mL (0.083 %) solution for nebulization 1 vial inhalation Q4H PRN (Reason: wheezing) [id number]-tzcmjousajpvo-xgbj 50-325-40 mg tablet 1 tab PO Q6H PRN (Reason: Headache) atorvastatin 80 mg Tablet 80 mg PO BEDTIME Qty: 0 0RF aspirin 81 mg Tablet,Delayed Release (Dr/Ec) 81 mg PO DAILY Qty: 30 0RF amitriptyline 50 mg Tablet 100 mg PO BEDTIME Qty: 60 0RF magnesium oxide 400 mg (241.3 mg magnesium) Tablet 400 mg PO BEDTIME Qty: 30 0RF gabapentin 300 mg Capsule 300 mg PO BID Qty: 60 0RF metoprolol succinate 25 mg Tablet Extended Release 24 Hr 25 mg PO DAILY Qty: 0 0RF Protocol: Hold for SBP/HR < HOLD for SBP < : 90 HOLD for HR < : 60 fluticasone propionate 50 mcg/actuation [place],Suspension 1 spray intranasal DAILY Qty: 0 0RF metformin 500 mg Tablet Extended Release 24 Hr 500 mg PO BID Qty: 60 0RF risperidone 1 mg Tablet 1 mg PO BID Qty: 60 0RF loratadine 10 mg Tablet 10 mg PO DAILY Qty: 0 0RF pyridoxine (vitamin B6) 50 mg Tablet 50 mg PO DAILY Qty: 30 0RF montelukast 10 mg Tablet 10 mg PO BEDTIME Qty: 30 0RF sennosides [senna] 8.6 mg tablet 8.6 mg PO DAILY ondansetron HCl 4 mg tablet 4 mg PO Q8H PRN (Reason: nausea) clonazepam 1 mg tablet 1 mg PO BEDTIME pantoprazole 40 mg tablet,delayed release (DR/EC) 40 mg PO DAILY docusate sodium 100 mg capsule 100 mg PO BID nystatin 100,000 unit/gram powder 1 appl topical QID PRN (Reason: Rash) cefuroxime axetil 250 mg Tablet 250 mg PO BID Qty: 4 0RF insulin glargine [Lantus U-100 Insulin] 100 unit/mL Solution 15 unit subcut DAILY Qty: 0 0RF (DME) lancets [OneTouch Delica Plus Lancet] 33 gauge misc See Rx Instructions .ROUTE BID Qty: 100 Rx Instructions: As directed albuterol sulfate 90 mcg/actuation HFA aerosol inhaler 2 puff inhalation Q4H PRN (Reason: wheezing) (DME) OneTouch Ultra Test Strip See Rx Instructions .ROUTE BID Qty: 10 Rx Instructions: As directed Interventions: ED Discharge Assessment Last Done: 03/14/24 11:59 Discharge Date/Time: 03/14/24 12:00 Print Language: [place]
--- NOTE | 2024-03-14 10:58 | PC.NURSE ---
soap suds enema administered at this time.
[2024-03-14 11:59] VITALS: BP 132/69; PULSE 77; RESP 18; TEMP 36.5; O2SAT 98
== END 2024-03-14 12:00 | disposition home or self-care (01) ==
PROVIDERS: Emergency Provider Emergency Medicine; PCP Internal Medicine
DX: K59.00 Constipation, unspecified (principal); R11.0 Nausea; I11.0 Hypertensive heart disease with heart failure; I50.9 Heart failure, unspecified; E11.9 Type 2 diabetes mellitus without complications; J45.909 Unspecified asthma, uncomplicated; Z79.899 Other long term (current) drug therapy; Z79.4 Long term (current) use of insulin
CPT/HCPCS: 74018; 99282; 99284

== ENCOUNTER 2024-03-31 10:56 | Outpatient (REF) | payer OTHER, SELFPAY ==
[2024-03-31 12:05] LABS: Erythrocyte Sedimentation Rate 12 MM/HR (0-20)
== END 2024-03-31 10:57 | disposition home or self-care (01) ==
LOC: HO.LAB 10:56
PROVIDERS: PCP Internal Medicine; Visit Provider Psychiatry & Neurology Neurology
DX: G44.209 Tension-type headache, unspecified, not intractable (principal)
CPT/HCPCS: 36415; 85652

== ENCOUNTER 2024-04-02 15:17 | Emergency (ER) | payer OTHER, SELFPAY ==
--- NOTE | ~2024-04-02 | CT_ITS ---
EXAMINATION: CT HEAD WITHOUT CONTRAST CT CERVICAL SPINE WITHOUT CONTRAST CLINICAL INFORMATION: Fall. Injury. Brief loss of consciousness. Forehead contusion. Cervical spine tenderness COMPARISON: CT head and cervical spine March 03, 2024 TECHNIQUE: Imaging was performed from the skull base to vertex without intravenous administration of contrast. In addition, helical noncontrast CT imaging was acquired through the cervical spine and source images were reviewed along with axial reconstructions and sagittal and coronal MPRs. [This CT examination was performed using dose optimization techniques as appropriate, variously including the following: *Automated exposure control *Adjustment of mA and/or kV according to patient size (this includes techniques or standardized protocols for targeted exams where dose is matched to indication/reason for exam; i.e. extremities or head) *Use of iterative reconstruction technique] DLP: 10.25+651.25+494.47 mGy-cm FINDINGS: HEAD: No intracranial mass, hemorrhage, or midline shift is visualized. The ventricles and sulci are proportional. No extra-axial collections are identified. The paranasal sinuses and mastoid air cells are well aerated. CERVICAL SPINE: There is no evidence of acute cervical spine fracture. Vertebral bodies remain normal in height. Cervical vertebrae have normal alignment. There is multilevel degenerative spondylosis of the cervical spine with disc height narrowing and endplate spurs and facet joint arthrosis No pre- or paravertebral soft tissue abnormality is identified. Limited assessment of the lung apices is unremarkable. CT/CT head/brain wo IV con IMPRESSION: 1. No acute intracranial pathology. 2. No CT evidence of acute cervical spine fracture or traumatic subluxation
--- NOTE | ~2024-04-02 | XR_ITS ---
EXAMINATION: XR knee LT 4V CLINICAL INFORMATION: Reason for Exam fall, trauma COMPARISON: None available at the time of this dictation. TECHNIQUE: frontal, lateral, tunnel and oblique views 4 views. FINDINGS: BONES: No fracture or dislocation is present. JOINTS: Narrowing of joint spaces and developed osteophytes from the edges of articular surfaces suggest degenerative osteoarthritis. SOFT TISSUE: Vascular calcifications otherwise unremarkable. XR/XR knee LT 4V IMPRESSION: Mild tricompartment degenerative osteoarthritis. No joint effusion. Vascular calcification.
--- NOTE | ~2024-04-02 | CT_ITS ---
EXAMINATION: CT CHEST WITHOUT CONTRAST CLINICAL INFORMATION: Chest trauma. Chest pain. Left-sided pain and tenderness. COMPARISON: None available. TECHNIQUE: Multidetector volumetric CT imaging of the chest was done. Axial MIP volume rendering provided. Sagittal and coronal reformatted images were obtained. This CT examination was performed using dose optimization techniques as appropriate, variously including the following: *Automated exposure control *Adjustment of mA and/or kV according to patient size (this includes techniques or standardized protocols for targeted exams where dose is matched to indication/reason for exam; i.e. extremities or head) *Use of iterative reconstruction technique DLP: 4.87+4.87+474.64 mGy-cm FINDINGS: LUNGS: The lungs are clear with no evidence of inflammation or nodules. Calcifications of mitral valve annulus. Calcifications of the aortic valve. MEDIASTINUM: No hematoma or mass or fluid collection. No pericardial effusion. Heart size is normal. No significant lymphadenopathy. Calcified lymph nodes in the right and left matt consistent with old granulomatous disease. CORONARY ARTERY CALCIFICATION: Moderate volume of coronary calcification. PLEURA: There is no pleural effusion. No pleural mass or thickening. AXILLA: No lymphadenopathy. UPPER ABDOMEN: No suspicious focal abnormality in the upper abdomen solid organs. Multiple calcified granuloma within the spleen. The adrenal glands are normal. OSSEOUS STRUCTURES: No acute osseous abnormality. No focal bone lesion. No rib fracture. CT/CT chest wo IV con IMPRESSION: No acute abnormality of the chest. Fleischner guidelines were followed.
--- NOTE | ~2024-04-02 | CT_ITS ---
EXAMINATION: CT HEAD WITHOUT CONTRAST CT CERVICAL SPINE WITHOUT CONTRAST CLINICAL INFORMATION: Fall. Injury. Brief loss of consciousness. Forehead contusion. Cervical spine tenderness COMPARISON: CT head and cervical spine March 03, 2024 TECHNIQUE: Imaging was performed from the skull base to vertex without intravenous administration of contrast. In addition, helical noncontrast CT imaging was acquired through the cervical spine and source images were reviewed along with axial reconstructions and sagittal and coronal MPRs. [This CT examination was performed using dose optimization techniques as appropriate, variously including the following: *Automated exposure control *Adjustment of mA and/or kV according to patient size (this includes techniques or standardized protocols for targeted exams where dose is matched to indication/reason for exam; i.e. extremities or head) *Use of iterative reconstruction technique] DLP: 10.25+651.25+494.47 mGy-cm FINDINGS: HEAD: No intracranial mass, hemorrhage, or midline shift is visualized. The ventricles and sulci are proportional. No extra-axial collections are identified. The paranasal sinuses and mastoid air cells are well aerated. CERVICAL SPINE: There is no evidence of acute cervical spine fracture. Vertebral bodies remain normal in height. Cervical vertebrae have normal alignment. There is multilevel degenerative spondylosis of the cervical spine with disc height narrowing and endplate spurs and facet joint arthrosis No pre- or paravertebral soft tissue abnormality is identified. Limited assessment of the lung apices is unremarkable. CT/CT cervical spine wo IV con IMPRESSION: 1. No acute intracranial pathology. 2. No CT evidence of acute cervical spine fracture or traumatic subluxation
[2024-04-02 15:27] VITALS: BP 130/88; BP 160/57; PULSE 82; PULSE 84; RESP 18; TEMP 36.8; O2SAT 95; BMI 28.3
--- NOTE | 2024-04-02 15:51 | ED_ITS ---
HPI - General Adult General Chief complaint: General Medical Stated complaint: LOC before falll w/ headstrike, no thinners, abras Time Seen by Provider: 04/02/24 15:51 History of Present Illness HPI narrative: The patient is a 68-year-old female who says that she was in her bathroom this morning at around 09:00. She had just finished brushing her teeth when she returned and lost her balance and fell. She struck her head and thinks that she might have had a brief loss of consciousness. She says that she was ultimately able to get herself off the floor. She waited several hours but was having a lot of body pains and ultimately called her nurse who called an ambulance and she was brought to the hospital. She has pain on the left side of her chest when she takes a deep breath. She denies dizziness, nausea, vomiting, diarrhea. No abdominal pain. She has pain in both knees, mostly in the left knee. Related Data Home Medications ?Medication ?Instructions ?Recorded ?Confirmed albuterol sulfate 90 mcg/actuation 2 puff inhalation Q4H PRN wheezing 09/27/22 11/16/23 aerosol inhaler blood sugar diagnostic (OneTouch #10 ea 09/27/22 10/20/23 Ultra Test strips) lancets 33 gauge (OneTouch Delica #100 ea 09/27/22 10/20/23 Plus Lancet) albuterol sulfate 2.5 mg/3 mL 1 vial inhalation Q4H PRN wheezing 12/16/22 11/16/23 (0.083 %) solution for nebulization [id number] 1 tab PO Q6H PRN Headache 10/17/23 11/16/23 50 mg-325 mg-40 mg tablet clonazepam 1 mg tablet 1 mg PO BEDTIME 11/16/23 11/16/23 docusate sodium 100 mg capsule 100 mg PO BID 11/16/23 11/16/23 nystatin 100,000 unit/gram topical 1 appl topical QID PRN Rash 11/16/23 11/16/23 powder ondansetron HCl 4 mg tablet 4 mg PO Q8H PRN nausea 11/16/23 11/16/23 pantoprazole 40 mg tablet,delayed 40 mg PO DAILY 11/16/23 11/16/23 release sennosides 8.6 mg tablet (senna) 8.6 mg PO DAILY 11/16/23 11/16/23 Previous Rx's ?Medication ?Instructions ?Recorded amitriptyline 50 mg tablet 100 mg (2 x 50 mg) PO BEDTIME #60 10/29/23 tabs aspirin 81 mg tablet,delayed 81 mg PO DAILY #30 tabs 10/29/23 release atorvastatin 80 mg tablet 80 mg PO BEDTIME #0 tabs 10/29/23 fluticasone propionate 50 1 spray intranasal DAILY #0 grams 10/29/23 mcg/actuation nasal spray,suspension gabapentin 300 mg capsule 300 mg PO BID #60 caps 10/29/23 loratadine 10 mg tablet 10 mg PO DAILY #0 tabs 10/29/23 magnesium oxide 400 mg (241.3 mg 400 mg PO BEDTIME #30 tabs 10/29/23 magnesium) tablet metformin 500 mg tablet,extended 500 mg PO BID #60 tabs 10/29/23 release 24 hr metoprolol succinate 25 mg 25 mg PO DAILY #0 tabs 10/29/23 tablet,extended release 24 hr montelukast 10 mg tablet 10 mg PO BEDTIME #30 tabs 10/29/23 pyridoxine (vitamin B6) 50 mg 50 mg PO DAILY #30 tabs 10/29/23 tablet risperidone 1 mg tablet 1 mg PO BID #60 tabs 10/29/23 cefuroxime axetil 250 mg tablet 250 mg PO BID #4 tabs 11/19/23 insulin glargine 100 unit/mL 15 unit (0.15 mL) subcut DAILY #0 11/19/23 subcutaneous solution (Lantus mL U-100 Insulin) Allergies Allergy/AdvReac Type Severity Reaction Status Date / Time Penicillins Allergy Mild Swelling Verified 04/02/24 15:28 seafood Allergy Unknown Verified 04/02/24 15:28 Review of Systems 2 Review of Systems: Yes all other systems are reviewed and are negative FORMERLY [facility] Past Medical History Medical History Delusions Major neurocognitive disorder Chest pain Dyspnea on exertion COVID-19 GERD (gastroesophageal reflux disease) DJD (degenerative joint disease) COPD (chronic obstructive pulmonary disease) Bipolar disorder CTS (carpal tunnel syndrome) Hx of rheumatoid arthritis Diabetic neuropathy Urinary incontinence Aneurysm of middle cerebral artery Pulmonary nodules CHF (congestive heart failure) Palpitations Migraine History of COVID-19 Mild aortic stenosis Asthma Insulin dependent type 2 diabetes mellitus Mixed hyperlipidemia Mood disorder Essential hypertension Surgical History No pertinent past surgical history Hx of cataract surgery H/O: hysterectomy Hx of cholecystectomy History of carpal tunnel release Family History Family History Mother Myocardial infarction Father Myocardial infarction Sister Breast cancer Brother Spleen cancer Social History Social History Household Members: None Housing: Apartment Do you presently have visiting nurse or other home services: No Unable to assess alcohol history related to: Unknown Alcohol intake: never Comment: report given by Cleo menendez Patient Tobacco Use Status: Never used Tobacco Tobacco use type: Cigarette Cigarette Packs Per Day: 0.2 Cigarettes Per Day: 4.0 Years Smoked: [id number] Smoked in Last 30 Days: No e-Cigarette/Vaping Use: Never Used Second Hand Smoke Exposure: No Use of substances other than those prescribed or required for medical reasons: No Advance Directives: Yes Advance Directives on File: Yes Advance Directives Date on File: 11/20/23 service: No Current occupational status: retired Sexual orientation: Straight/Heterosexual Physical Exam ED Vital Signs: Vital Signs - 24 hr 04/02/24 15:27 04/02/24 18:36 04/02/24 20:27 Temperature 98.2 F 97.6 F 98.0 F Pulse Rate 82 82 93 Respiratory Rate 18 20 20 Blood Pressure 160/57 H 183/67 H 196/74 H Pulse Oximetry 95 98 99 Oxygen Delivery Method Room Air Room Air Room Air 04/02/24 21:21 04/02/24 21:22 Temperature 98.6 F 98.6 F Pulse Rate 91 91 Respiratory Rate 16 16 Blood Pressure 152/56 H 152/56 H Pulse Oximetry 99 99 Oxygen Delivery Method Room Air Room Air BMI result Body Mass Index 28.3 Const Other: The patient is an older woman who was awake and alert with a normal mental status. She is Austrian-speaking and was interviewed with a Austrian world language teacher. She was in a cervical collar. She does not appear uncomfortable when I 1st saw her but during the interview is seemed apparent that she was having pain on her left side with breathing. She was not in respiratory distress however. HENMT Other: There is a fairly large area of bruising to the skin of the mid forehead. No raccoon eyes or gallego sign. No facial asymmetry. Mucous membranes moist. No oral injury. Airway clear. Eyes Other: No trauma to the eyes. No eyelid swelling. Pupils are round equal, extraocular movements intact. Neck Other: The patient reports posterior midline C-spine tenderness with palpation. Chest Other: There is left-sided chest wall tenderness without crepitus or subcutaneous emphysema. Resp Other: The patient seems to have discomfort on the left chest when she takes a deep breath. Effort & Inspection: normal respiratory effort Auscultation: clear to auscultation bilaterally Cardio Rate: regular rate Heart sounds: S1 normal heart sound present and S2 normal heart sound present GI Other: Abdomen is soft and nontender Back/Spine/Pelvis Other: No particular localized tenderness to the vertebral column of the thoracic or lumbar spine. Skin Other: The patient has an area of bruising and swelling to the mid forehead. There is an abrasion to the left knee. Neuro Other: The patient is awake and alert with a normal mental status. GCS of 15. Speech is clear. Face is symmetrical. Eye movements intact. She moves her extremities symmetrically. She is grossly neurologically intact. Extrem Other: The patient has some pain when she moves her knees but is able to lift both legs off the stretcher and to but the niece through a reasonably good range of motion. She is quite tender at the left knee however. Medications Administered Discontinued Medications Generic Name Dose Route Start Last Admin Trade Name Juan PRN Reason Stop Dose Admin Acetaminophen 975 mg 04/02/24 20:56 04/02/24 21:15 Acetaminophen 325 Mg Tablet PO 04/02/24 20:57 975 mg ONCE ONE Administration Bacitracin 1 appl 04/02/24 20:56 04/02/24 21:15 Bacitracin Oint 0.9 Gm Packet TOPICAL 04/02/24 20:57 1 appl ONCE ONE Administration Protocol Medical Decision Making Medical Decision Making MDM Narrative: The patient is a 68-year-old female who describes what sounds like a mechanical fall in her bathroom. I think she mostly fell forward as she has a bruise to the upper mid forehead and an abrasion on the left knee and tenderness to the right knee as well. She also complained of left-sided chest pain that was worse with breathing and she thought that she injured her left ribs. She was complaining of a headache and of neck pain. Head CT is negative, cervical spine CT is negative. A chest x-ray done to evaluate for possible left-sided rib fractures was negative. A left knee x-ray is negative. Labs were done. The patient's troponin was 40. A repeat troponin was 43. This is not a significant difference. EKG is unremarkable. The patient is not describing symptoms of an acute coronary syndrome and I do not think any further cardiac workup is necessary. Other labs are unremarkable. After the patient has negative workup we got her on her feet. She was able to walk with a walker at roughly her baseline. She was comfortable going home with her family. Lab Data 04/02/24 17:29 04/02/24 17:29 Labs: Lab Results 04/02/24 04/02/24 Range/Units 17:29 19:35 WBC 5.7 (4.8-10.8) X10*3/uL RBC 4.20 (4.20-5.50) X10*6/uL Hgb 10.6 L (12.0-16.0) g/dl Hct 34.3 L (37.0-47.0) % MCV 81.7 (80.0-98.0) fL MCH 25.2 L (27.0-33.0) pg MCHC 30.9 L (31.0-35.0) g/dl RDW 17.7 H (11.0-16.0) % Plt Count 222 (160-400) X10*3/uL MPV 10.8 (9.4-12.3) fL Immature Gran % (Auto) 0.2 (0.0-0.4) % Neut % (Auto) 51.7 (45-73) % Lymph % (Auto) 33.3 (20-40) % Tompkins % (Auto) 9.9 (2-11) % Eos % (Auto) 4.4 H (0-4) % Baso % (Auto) 0.5 (0-2) % Lymph # (Auto) 1.9 (1.2-4.9) X10*3/uL Tompkins # (Auto) 0.6 (0.1-1.2) X10*3/uL Eos # (Auto) 0.3 (0.0-0.4) X10*3/uL Baso # (Auto) 0.0 (0.0-0.2) X10*3/uL Abs Immat Gran (auto) 0.01 (0.00-0.03) X10*3/uL Absolute Neuts (auto) 3.0 (2.0-8.3) x10*3/uL Absolute Nucleated RBC 0.000 (0.0-0.012) X10*3/uL Nucleated RBC % (auto) 0.0 (0.0-0.2) /100WBC Sodium 142 (135-145) mmol/L Potassium 4.2 (3.3-5.1) mmol/L Chloride 108 (96-108) mmol/L Carbon Dioxide 23 (22-29) mmol/L Anion Gap 15 (12-20) BUN 16 (9-16) mg/dL Creatinine 0.58 (0.5-1.4) mg/dL Estim Creat Clear Calc 93.9 Estimated GFR > 60 Random Glucose 79 (60-115) mg/dL Calcium 9.5 (8.4-10.2) mg/dL Magnesium 1.8 (1.6-2.6) mg/dL Total Bilirubin 0.2 (0.0-1.0) mg/dL Direct Bilirubin < 0.2 (0.0-0.5) mg/dL AST 17 (5-31) U/L ALT 12 (0-31) U/L Alkaline Phosphatase 70 (39-117) U/L Troponin I High Sens 40.6 H D 43.9 H (<3.5-17.0) ng/L Total Protein 7.2 (6.5-8.0) g/dL Albumin 3.7 (3.5-5.0) g/dL Ethyl Alcohol < 10 mg/dL Discharge Plan Discharge Clinical Impression: Fall, Contusion of forehead, Head injury, Contusion of left chest wall, Abrasion of left knee Patient Disposition: Home, Self-Care Additional Instructions: Your testing in the emergency room is very reassuring. There is no indication of any dangerous injury. Please use Tylenol as needed for pain. Please use bacitracin and Band-Aids to the abrasion of your left knee. Please be very careful when moving around your apartment. I would recommend always using a walker to help you keep your balance. Please follow up soon with your regular doctor to discuss your falls. Return to the emergency room if significantly worse. Prescriptions: No Action albuterol sulfate 2.5 mg /3 mL (0.083 %) solution for nebulization 1 vial inhalation Q4H PRN (Reason: wheezing) lrmubfhfkl-mwgbyknhqyhnw-qfct 50-325-40 mg tablet 1 tab PO Q6H PRN (Reason: Headache) atorvastatin 80 mg Tablet 80 mg PO BEDTIME Qty: 0 0RF aspirin 81 mg Tablet,Delayed Release (Dr/Ec) 81 mg PO DAILY Qty: 30 0RF amitriptyline 50 mg Tablet 100 mg PO BEDTIME Qty: 60 0RF magnesium oxide 400 mg (241.3 mg magnesium) Tablet 400 mg PO BEDTIME Qty: 30 0RF gabapentin 300 mg Capsule 300 mg PO BID Qty: 60 0RF metoprolol succinate 25 mg Tablet Extended Release 24 Hr 25 mg PO DAILY Qty: 0 0RF Protocol: Hold for SBP/HR < HOLD for SBP < : 90 HOLD for HR < : 60 fluticasone propionate 50 mcg/actuation [place],Suspension 1 spray intranasal DAILY Qty: 0 0RF metformin 500 mg Tablet Extended Release 24 Hr 500 mg PO BID Qty: 60 0RF risperidone 1 mg Tablet 1 mg PO BID Qty: 60 0RF loratadine 10 mg Tablet 10 mg PO DAILY Qty: 0 0RF pyridoxine (vitamin B6) 50 mg Tablet 50 mg PO DAILY Qty: 30 0RF montelukast 10 mg Tablet 10 mg PO BEDTIME Qty: 30 0RF sennosides [senna] 8.6 mg tablet 8.6 mg PO DAILY ondansetron HCl 4 mg tablet 4 mg PO Q8H PRN (Reason: nausea) clonazepam 1 mg tablet 1 mg PO BEDTIME pantoprazole 40 mg tablet,delayed release (DR/EC) 40 mg PO DAILY docusate sodium 100 mg capsule 100 mg PO BID nystatin 100,000 unit/gram powder 1 appl topical QID PRN (Reason: Rash) cefuroxime axetil 250 mg Tablet 250 mg PO BID Qty: 4 0RF insulin glargine [Lantus U-100 Insulin] 100 unit/mL Solution 15 unit subcut DAILY Qty: 0 0RF (DME) lancets [OneTouch Delica Plus Lancet] 33 gauge misc See Rx Instructions .ROUTE BID Qty: 100 Rx Instructions: As directed albuterol sulfate 90 mcg/actuation HFA aerosol inhaler 2 puff inhalation Q4H PRN (Reason: wheezing) (DME) OneTouch Ultra Test Strip See Rx Instructions .ROUTE BID Qty: 10 Rx Instructions: As directed Referrals: Ashwin Arzola III, MD [Physician] - (frequent falls) Interventions: ED Discharge Assessment Last Done: 04/02/24 21:22 Discharge Date/Time: 04/02/24 21:23 Print Language: Austrian
--- NOTE | 2024-04-02 16:11 | ECG_ITS ---
Test Reason : FALL Blood Pressure : / mmHG Vent. Rate : 076 BPM Atrial Rate : 076 BPM P-R Int : 168 ms QRS Dur : 084 ms QT Int : 378 ms P-R-T Axes : 050 004 019 degrees QTc Int : 425 ms Normal sinus rhythm Normal ECG When compared with ECG of 03-MAR-2024 16:34, No significant change was found Referred By: Abbe Moran Electronically Signed By:Michael Cano
[2024-04-02 17:33] LABS: MANUAL DIFF FLAG NO
[2024-04-02 17:37] LABS: Basophils Percent Auto 0.5 % (0-2); Eosinophils Absolute Auto 0.3 X10*3/uL (0.0-0.4); Eosinophils Percent Auto 4.4 % (0-4); Hematocrit 34.3 % (37.0-47.0); Hemoglobin 10.6 g/dl (12.0-16.0); Imm Gran Abs Auto 0.01 X10*3/uL (0.00-0.03); Imm Gran Pct Auto 0.2 % (0.0-0.4); Lymphocytes Absolute Auto 1.9 X10*3/uL (1.2-4.9); Lymphocytes Percent Auto 33.3 % (20-40); Mean Corpuscular HGB Conc 30.9 g/dl (31.0-35.0); Mean Corpuscular Hemoglobin 25.2 pg (27.0-33.0); Mean Corpuscular Volume 81.7 fL (80.0-98.0); Mean Platelet Volume 10.8 fL (9.4-12.3); Monocytes Absolute Auto 0.6 X10*3/uL (0.1-1.2); Monocytes Percent Auto 9.9 % (2-11); Neutrophils Percent Auto 51.7 % (45-73); Platelet Count 222 X10*3/uL (160-400); Red Cell Distribution Width 17.7 % (11.0-16.0); White Blood Count 5.7 X10*3/uL (4.8-10.8)
[2024-04-02 17:57] LABS: Alanine Aminotransferase 12 U/L (0-31); Albumin Level 3.7 g/dL (3.5-5.0); Alkaline Phosphatase 70 U/L (39-117); Anion Gap 15 (12-20); Aspartate Amino Transferase 17 U/L (5-31); Bilirubin Direct < 0.2 mg/dL (0.0-0.5); Bilirubin Total 0.2 mg/dL (0.0-1.0); Blood Urea Nitrogen 16 mg/dL (9-16); Calcium 9.5 mg/dL (8.4-10.2); Carbon Dioxide 23 mmol/L (22-29); Chloride 108 mmol/L (96-108); Creatinine Clr Calc Pharmacy 93.9; Estimated Glomerular Filt Rate > 60; Ethanol < 10 mg/dL; Glucose Random 79 mg/dL (60-115); Magnesium 1.8 mg/dL (1.6-2.6); Potassium 4.2 mmol/L (3.3-5.1); Sodium 142 mmol/L (135-145); Total Protein 7.2 g/dL (6.5-8.0)
[2024-04-02 18:03] LABS: Troponin-I High Sensitivity 40.6 ng/L (<3.5-17.0)
[2024-04-02 18:36] VITALS: BP 183/67; PULSE 82; RESP 20; TEMP 36.4; O2SAT 98
[2024-04-02 20:04] LABS: Troponin-I High Sensitivity 43.9 ng/L (<3.5-17.0)
[2024-04-02 20:27] VITALS: BP 196/74; PULSE 93; RESP 20; TEMP 36.7; O2SAT 99
[2024-04-02] MEDS: Acetaminophen 325 MG TABLET 975 MG PO (21:15)
[2024-04-02] MEDS: Bacitracin Oint 0.9 GM PACKET 1 APPL TOPICAL (21:15)
[2024-04-02 21:21] VITALS: BP 152/56; PULSE 91; RESP 16; TEMP 37; O2SAT 99
[2024-04-02 21:22] VITALS: BP 152/56; PULSE 91; RESP 16; TEMP 37; O2SAT 99
== END 2024-04-02 21:23 | disposition home or self-care (01) ==
PROVIDERS: Emergency Provider Emergency Medicine
DX: S00.83XA Contusion of other part of head, initial encounter (principal); S20.213A Contusion of bilateral front wall of thorax, initial encounter; S80.212A Abrasion, left knee, initial encounter; M54.2 Cervicalgia; R51.9 Headache, unspecified; R07.81 Pleurodynia; W01.10XA Fall on same level from slipping, tripping and stumbling with subsequent striking against unspecified object, initial encounter; Y93.9 Activity, unspecified; Y92.9 Unspecified place or not applicable; Y99.8 Other external cause status; Z23 Encounter for immunization; Z79.899 Other long term (current) drug therapy; Z51.81 Encounter for therapeutic drug level monitoring
CPT/HCPCS: 36415; 70450; 71250; 72125; 73564; 80048; 80076; 80307; 83735; 84484; 85025; 93005; 99284; 99285

== ENCOUNTER → 2024-04-02 16:11 | Outpatient (BNV) | payer OTHER, SELFPAY | PROVIDERS: Emergency Provider Emergency Medicine; Visit Provider Internal Medicine Cardiovascular Disease | DX: R07.9 Chest pain, unspecified (principal) | CPT/HCPCS: 93010 ==

== ENCOUNTER 2024-04-10 21:43 | Observation (INO) | payer OTHER, SELFPAY ==
--- NOTE | ~2024-04-10 | XR_ITS ---
EXAMINATION: XR SHOULDER, RIGHT CLINICAL INFORMATION: Right shoulder pain, trauma, deformity COMPARISON: None available. TECHNIQUE: Single AP view of the right shoulder. FINDINGS: Humeral head appears appropriately situated at the glenoid on this single AP view. Mild glenohumeral osteoarthritis is suspected. Additional osteoarthritis the right acromioclavicular joint. Bones are osteopenic. XR/XR shoulder RT 1V IMPRESSION: 1. No acute fracture or malalignment identified on this single AP view of the right shoulder. 2. Mild glenohumeral and acromioclavicular osteoarthritis.
--- NOTE | ~2024-04-10 | CT_ITS ---
EXAMINATION: CTA NECK WITH CONTRAST (STROKE) CTA BRAIN WITH CONTRAST (STROKE) CLINICAL INFORMATION: intermittent dysarthria and L leg weakness. Fall. Dysphagia. Suspect acute stroke. Assess for major vessel occlusion. Please call report. COMPARISON: 11/08/2023 TECHNIQUE: CTA of the head and neck was performed in the axial plane from the mediastinum to the skull vertex using 85 mL Omnipaque 350 intravenous contrast. Additional reformatted multiplanar images including maximum intensity projection MIP images are generated on the CT workstation. This CT examination was performed using dose optimization techniques as appropriate, variously including the following: *Automated exposure control *Adjustment of mA and/or kV according to patient size (this includes techniques or standardized protocols for targeted exams where dose is matched to indication/reason for exam; i.e. extremities or head) *Use of iterative reconstruction technique DLP: 1455 mGy-cm FINDINGS: The degree of stenosis determined by criteria similar to NASCET. CT head: There is no evidence of acute intracranial hemorrhage or territorial infarction. There is no loss of carrillo to white matter differentiation. No abnormal mass effect or midline shift is seen. No extra-axial fluid collections are identified. There is no abnormal enhancement. The ventricles are normal in size. A few subtle foci of hypoattenuation in the subcortical and periventricular white matter are most consistent with chronic microangiopathic changes. The osseous structures and soft tissues are normal. Minimal pneumatization of the right mastoid. The left mastoid air cells and visualized portions of the paranasal sinuses are well aerated. CTA neck: The aortic arch is of normal contour and caliber. Classic 3 vessel branching pattern of the aortic arch. No significant stenosis of the branch origins. The common and internal carotid arteries opacify normally without focal stenosis or occlusion. The cervical segments of the vertebral arteries opacify normally without focal stenosis or occlusion. Assessment of the origin of the left vertebral artery is somewhat limited due to beam morning artifact created by contrast material within venous collaterals at the left cervicothoracic junction. Atherosclerotic calcifications are present at the carotid bulbs without flow-limiting stenoses. The thyroid gland and remaining cervical soft tissues are within normal limits. No significant abnormalities of the cervical spine. Marked osteoarthritis of the temporomandibular joints. Moderate multilevel degenerative spondylosis in the cervical spine, most notably at C5-C6 and C6-C7. Marked multilevel facet arthropathy. The visualized lung apices and upper mediastinum are within normal limits. CTA head: There is normal opacification of major intracranial arteries. No focal flow-limiting stenosis or discrete proximal large artery occlusion. As previously seen, there is a saccular aneurysm projecting laterally from the right MCA bifurcation, measuring 3 x 3.5 x 3.5 mm, not appreciably changed. No new aneurysmal dilatation. Normal contrast opacification of the petrous, cavernous, paraophthalmic, and supraclinoid segments of the internal carotid arteries without focal stenosis. Atherosclerotic calcifications are present in the cavernous portions of the ICAs. Normal appearance of the anterior cerebral arteries without focal occlusion or stenosis. Middle cerebral arteries are normal in appearance aside from the aforementioned right MCA aneurysm. Normal anterior communicating artery. Normal arborization of the middle cerebral arteries. Normal appearance of the intradural vertebral and posterior inferior cerebellar arteries. Normal appearance of the basilar, superior cerebellar, and P1 segments of the posterior cerebral arteries. No appreciable posterior communicating arteries, likely developmental variant. Normal appearance of the distal segments of the posterior cerebral arteries bilaterally. CT/CT angio head neck stroke IMPRESSION: 1. No acute intracranial pathology. No acute arterial occlusions or significant stenoses in the head or neck. 2. 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 This critical result was discussed by telephone with Dr.Natalie Manley at 10:57pm on 04/10/2024.
--- NOTE | ~2024-04-10 | CT_ITS ---
EXAMINATION: CT head for stroke CLINICAL INFORMATION: intermittent dysarthria and L leg weakness COMPARISON: CT head 04/02/2024 TECHNIQUE: Contiguous axial imaging was performed from the skull base to vertex without intravenous contrast. This CT examination was performed using dose optimization techniques as appropriate, variously including the following: * Automated exposure control * Adjustment of mA and/or kV according to patient size (this includes techniques or standardized protocols for targeted exams where dose is matched to indication/reason for exam; i.e. extremities or head) * Use of iterative reconstruction technique DLP: 643 mGy-cm. FINDINGS: There is no evidence of acute intracranial hemorrhage or territorial infarction. [place] to white matter differentiation is well preserved. No abnormal mass effect or midline shift is seen. No extra-axial fluid collections are identified. No hydrocephalus. No significant volume loss. Patchy periventricular and deep white matter hypoattenuation is consistent with mild small vessel ischemic changes. The cerebellar tonsils are well positioned. No acute osseous or soft tissue abnormality. Bilateral lens extraction. The mastoid air cells and visualized portions of the paranasal sinuses are well aerated. CT/CT head for stroke IMPRESSION: No acute intracranial pathology. These results were discussed with Floridalma Manley MD by telephone on 04/10/2024 at 10:22 PM and it was ascertained that the content of the report was understood at the time of direct communication.
--- NOTE | ~2024-04-10 | US_ITS ---
EXAMINATION: US VENOUS ULTRASOUND WITH DOPPLER LOWER EXTREMITY, LEFT CLINICAL INFORMATION: Swallowing COMPARISON: None available. TECHNIQUE: Ultrasound of the deep veins is performed from the hip to the calf with compression sonography and color and pulse Doppler assessment. Spectral analysis with color-flow imaging is performed. FINDINGS: There is normal venous compression and respiratory variation and augmented flow. The visualized common femoral vein, superficial femoral vein, profunda femoral vein, popliteal vein, and the trifurcation region shows no evidence of deep venous thrombosis. There is no significant popliteal fossa cyst. If the patient's symptoms persist, followup ultrasound in 5 days 7 days might be of value to exclude proximal propagation from a non-visualized calf vein. US/US venous duplex LE LT IMPRESSION: No DVT demonstrated in the left lower extremity.
--- NOTE | ~2024-04-10 | MR_ITS ---
EXAMINATION: MR BRAIN WITHOUT CONTRAST CLINICAL INFORMATION: Left lower extremity weakness, speech difficulty COMPARISON: CTA head and neck 04/10/2024 TECHNIQUE: Multiplanar multisequence MR imaging of the brain was obtained without intravenous contrast. FINDINGS: There is no acute infarct on diffusion-weighted imaging. There is no intracranial hemorrhage on iron-sensitive imaging. No extra-axial collection or mass effect/herniation. Scattered periventricular and deep white matter T2 FLAIR hyperintensities consistent with mild underlying microangiopathy. No hydrocephalus. Mild generalized cerebral volume loss with commensurate sulcal and ventricular prominence. The major flow voids at the skull base are preserved. Partially empty sella. The cerebellar tonsils are normally positioned. The craniocervical junction is normal. Marrow signal is within normal limits. The visualized soft tissues are without significant abnormality. No signal abnormality within the paranasal sinuses or within the mastoid air cells. MR/MR head/brain wo con IMPRESSION: No acute infarct or other acute intracranial abnormality.
[2024-04-10 21:47] VITALS: BP 104/56; PULSE 84; RESP 20; TEMP 37.2; O2SAT 97; BMI 30.2
[2024-04-10 22:01] LABS: Glucose, Whole Blood 160 mg/dL (60-115)
[2024-04-10 22:02] VITALS: BP 104/56; PULSE 84; RESP 20; TEMP 37.2; O2SAT 97
--- NOTE | 2024-04-10 22:02 | ECG_ITS ---
Test Reason : ? STROKE Blood Pressure : / mmHG Vent. Rate : 085 BPM Atrial Rate : 085 BPM P-R Int : 202 ms QRS Dur : 096 ms QT Int : 366 ms P-R-T Axes : 056 013 035 degrees QTc Int : 435 ms Normal sinus rhythm Normal ECG When compared with ECG of 02-APR-2024 16:24, No significant change was found Referred By: Floridalma Manley Electronically Signed By:ALISHA JOLLY MD
[2024-04-10 22:09] LABS: MANUAL DIFF FLAG NO
[2024-04-10 22:18] LABS: Basophils Percent Auto 0.6 % (0-2); Eosinophils Absolute Auto 0.2 X10*3/uL (0.0-0.4); Eosinophils Percent Auto 3.2 % (0-4); Hematocrit 32.8 % (37.0-47.0); Hemoglobin 10.1 g/dl (12.0-16.0); Imm Gran Abs Auto 0.02 X10*3/uL (0.00-0.03); Imm Gran Pct Auto 0.3 % (0.0-0.4); Lymphocytes Absolute Auto 1.5 X10*3/uL (1.2-4.9); Lymphocytes Percent Auto 21.8 % (20-40); Mean Corpuscular HGB Conc 30.8 g/dl (31.0-35.0); Mean Corpuscular Hemoglobin 25.8 pg (27.0-33.0); Mean Corpuscular Volume 83.9 fL (80.0-98.0); Mean Platelet Volume 11.3 fL (9.4-12.3); Monocytes Absolute Auto 0.6 X10*3/uL (0.1-1.2); Monocytes Percent Auto 8.6 % (2-11); Neutrophils Absolute Auto 4.6 x10*3/uL (2.0-8.3); Neutrophils Percent Auto 65.5 % (45-73); Platelet Count 248 X10*3/uL (160-400); Red Blood Count 3.91 X10*6/uL (4.20-5.50); Red Cell Distribution Width 17.8 % (11.0-16.0)
[2024-04-10 22:25] LABS: Alanine Aminotransferase 14 U/L (0-31); Alkaline Phosphatase 75 U/L (39-117); Anion Gap 13 (12-20); Aspartate Amino Transferase 21 U/L (5-31); Bilirubin Direct < 0.2 mg/dL (0.0-0.5); Bilirubin Total 0.2 mg/dL (0.0-1.0); Blood Urea Nitrogen 21 mg/dL (9-16); Carbon Dioxide 25 mmol/L (22-29); Chloride 107 mmol/L (96-108); Creatinine Clr Calc Pharmacy 60.5; Estimated Glomerular Filt Rate 60; Ethanol < 10 mg/dL; Glucose Random 150 mg/dL (60-115); Potassium 4.4 mmol/L (3.3-5.1); Sodium 141 mmol/L (135-145); Total Protein 7.4 g/dL (6.5-8.0)
[2024-04-10 22:29] LABS: Prothrombin Time Whole Bld POC 12.3 sec (11.1-13.5)
[2024-04-10 22:31] LABS: Troponin-I High Sensitivity 23.2 ng/L (<3.5-17.0)
[2024-04-10 22:36] VITALS: BP 144/63; PULSE 85; RESP 15; O2SAT 98
--- NOTE | 2024-04-10 23:19 | ED_ITS ---
HPI - Neuro Symptoms/Deficit General Chief Complaint: Stroke Stated Complaint: ?Stroke Time Seen by Provider: 04/10/24 21:51 Source: patient and family Mode of arrival: ambulatory Limitations: no limitations History of Present Illness ED Provider: Dr. Floridalma Manley HPI Narrative: Patient comes to the emergency room complaining of dysarthria and left leg weakness. Patient states that around 19:00, she arrived at the [facility], had been walking around shopping. Around 20:00, patient states that she was feeling that her left leg was giving out, almost fell backwards but she was able to grab onto something in eventually sit down, no head strike, no blood thinners. Then, patient walked out towards the exit to meet her daughter. The patient's daughter noted that the patient was dragging her left leg and also when they started speaking, the daughter noticed that the patient had slurred speech. The daughter brought the patient immediately to the emergency room. By the time that they reached the ED, the patient's speech was significantly improved, and no longer draining her left leg. Patient's daughter reports that 2 days ago, Related Data Home Medications ?Medication ?Instructions ?Recorded ?Confirmed albuterol sulfate 90 mcg/actuation 2 puff inhalation Q4H PRN wheezing 09/27/22 11/16/23 aerosol inhaler blood sugar diagnostic (LivradaTouch #10 ea 09/27/22 10/20/23 Ultra Test strips) lancets 33 gauge (LivradaTouch Delica #100 ea 09/27/22 10/20/23 Plus Lancet) albuterol sulfate 2.5 mg/3 mL 1 vial inhalation Q4H PRN wheezing 12/16/22 11/16/23 (0.083 %) solution for nebulization [id number]-[id number] 1 tab PO Q6H PRN Headache 10/17/23 11/16/23 50 mg-325 mg-40 mg tablet clonazepam 1 mg tablet 1 mg PO BEDTIME 11/16/23 11/16/23 docusate sodium 100 mg capsule 100 mg PO BID 11/16/23 11/16/23 nystatin 100,000 unit/gram topical 1 appl topical QID PRN Rash 11/16/23 11/16/23 powder ondansetron HCl 4 mg tablet 4 mg PO Q8H PRN nausea 11/16/23 11/16/23 pantoprazole 40 mg tablet,delayed 40 mg PO DAILY 11/16/23 11/16/23 release sennosides 8.6 mg tablet (senna) 8.6 mg PO DAILY 11/16/23 11/16/23 Previous Rx's ?Medication ?Instructions ?Recorded amitriptyline 50 mg tablet 100 mg (2 x 50 mg) PO BEDTIME #60 10/29/23 tabs aspirin 81 mg tablet,delayed 81 mg PO DAILY #30 tabs 10/29/23 release atorvastatin 80 mg tablet 80 mg PO BEDTIME #0 tabs 10/29/23 fluticasone propionate 50 1 spray intranasal DAILY #0 grams 10/29/23 mcg/actuation nasal spray,suspension gabapentin 300 mg capsule 300 mg PO BID #60 caps 10/29/23 loratadine 10 mg tablet 10 mg PO DAILY #0 tabs 10/29/23 magnesium oxide 400 mg (241.3 mg 400 mg PO BEDTIME #30 tabs 10/29/23 magnesium) tablet metformin 500 mg tablet,extended 500 mg PO BID #60 tabs 10/29/23 release 24 hr metoprolol succinate 25 mg 25 mg PO DAILY #0 tabs 10/29/23 tablet,extended release 24 hr montelukast 10 mg tablet 10 mg PO BEDTIME #30 tabs 10/29/23 pyridoxine (vitamin B6) 50 mg 50 mg PO DAILY #30 tabs 10/29/23 tablet risperidone 1 mg tablet 1 mg PO BID #60 tabs 10/29/23 cefuroxime axetil 250 mg tablet 250 mg PO BID #4 tabs 11/19/23 insulin glargine 100 unit/mL 15 unit (0.15 mL) subcut DAILY #0 11/19/23 subcutaneous solution (Lantus mL U-100 Insulin) Allergies Allergy/AdvReac Type Severity Reaction Status Date / Time Penicillins Allergy Mild Swelling Verified 04/10/24 21:53 seafood Allergy Unknown Verified 04/10/24 21:53 Review of Systems 2 Review of Systems: Constitutional : No Weight loss, No Fever, No Chills, No Night Sweats, No Fatigue, No Malaise ENT/Mouth : No Hearing loss, No Ear Pain, No Nasal Congestion, No Sinus Pain, No Hoarseness, No sore throat, No Rhinorrhea, No Swallowing Difficulty Eyes: No Eye Pain, No Swelling, No Redness, No Foreign Body, No Discharge, No Vision Changes Cardiovascular : No Chest Pain, No SOB, No Dyspnea on Exertion, No Orthopnea, No Edema, No Palpitations Respiratory : No Cough, No Sputum, No Wheezing, No Smoke Exposure, No Dyspnea Gastrointestinal : No Nausea, No Vomiting, No Diarrhea, No Constipation, No abdominal Pain, No Hematochezia, No Melena Genitourinary : no irregular bleeding, No Dysuria, No Urinary Frequency, No Hematuria, No Urinary Incontinence, No Urgency, No Flank Pain, No Urinary Flow Changes, No Hesitancy Musculoskeletal : No joint pain, No Myalgias, No Joint Swelling Skin : No Skin Lesions, No rash Neuro : Complaining of left leg weakness, dysarthria Psych : No Anxiety/Panic, No Depression, No SI/HI/AH/VH, No Social Issues, Heme/Lymph: No Bruising, No Bleeding,No Lymphadenopathy Endocrine : No Polyuria, No Polydipsia, No Temperature Intolerance PMFSH Past Medical History Medical History Delusions Major neurocognitive disorder Chest pain Dyspnea on exertion COVID-19 GERD (gastroesophageal reflux disease) DJD (degenerative joint disease) COPD (chronic obstructive pulmonary disease) Bipolar disorder CTS (carpal tunnel syndrome) Hx of rheumatoid arthritis Diabetic neuropathy Urinary incontinence Aneurysm of middle cerebral artery Pulmonary nodules CHF (congestive heart failure) Palpitations Migraine History of COVID-19 Mild aortic stenosis Asthma Insulin dependent type 2 diabetes mellitus Mixed hyperlipidemia Mood disorder Essential hypertension Surgical History No pertinent past surgical history Hx of cataract surgery H/O: hysterectomy Hx of cholecystectomy History of carpal tunnel release Family History Family History Mother Myocardial infarction Father Myocardial infarction Sister Breast cancer Brother Spleen cancer Social History Social History Household Members: None Housing: Apartment Do you presently have visiting nurse or other home services: No Unable to assess alcohol history related to: Unknown Alcohol intake: never Comment: report given by Cleo menendez Patient Tobacco Use Status: Never used Tobacco Tobacco use type: Cigarette Cigarette Packs Per Day: 0.2 Cigarettes Per Day: 4.0 Years Smoked: 4641-1729 Smoked in Last 30 Days: No e-Cigarette/Vaping Use: Never Used Second Hand Smoke Exposure: No Use of substances other than those prescribed or required for medical reasons: No Advance Directives: Yes Advance Directives on File: Yes Advance Directives Date on File: 11/20/23 Do you have a plan to hurt others: No Plan service: No Current occupational status: retired Sexual orientation: Straight/Heterosexual Physical Exam 2 Vital Signs: Vital Signs: Last Vital Signs Temp 98.9 F 04/10/24 22:02 Pulse 82 04/10/24 23:31 Resp 19 04/10/24 23:31 BP 144/63 H 04/10/24 23:31 Pulse Ox 96 04/10/24 23:31 O2 Del Method Room Air 04/10/24 23:31 BMI result Body Mass Index 30.2 Const: Other: Appearance: Alert. Oriented X3. No acute distress. Eyes: Pupils equal, round and reactive to light. ENT: Pharynx normal. Neck: Normal inspection. Neck supple. No lymph nodes noted. No crepitus CVS: Normal heart rate and rhythm. Pulses normal. Normal S1 and S2 Respiratory: No respiratory distress. Breath sounds normal. No Wheezing. No rales Abdomen: Soft and nontender. No rigidity. No distention. Skin: Skin warm and dry. Normal skin color. Normal skin turgor. Extremities: No lower extremity edema. No Lacerations. No Rash Neuro: Oriented X 3. No motor deficit. No sensory deficit. Moving all extremities. No slurred speech. CN 2 through 12 grossly intact, NIH 0 Psych: Cooperative, anxious Course Course Course Narrative: -patient's NIH score is 0 on arrival, patient a candidate for tPA, R,isks outweighed the benefits Medical Decision Making Medical Decision Making MDM Narrative: My interpretation of labs, hematology and chemistry at baseline -my interpretation of CT scan: No intracranial bleed -I discussed the CT scan with Radiology, head CT without contrast does not show any acute intracranial bleed, CTA shows no acute obstructions -patient's NIH remains at 0. Patient's seems a bit anxious. -I discussed the patient with Dr. Montalvo from the Medicine team, patient being admitted Differential Diagnosis Differential Diagnoses: The differential diagnosis associated with the presentation includes (TIA, CVA, anxiety) Admission/Observation Consideration of admission/observation: Escalation of care including admission/observation considered Consult Healthcare Provider Management of the patient was discussed with: Hospitalist Lab Data MDM Lab Attestation statement: I reviewed the patient's lab results. 04/10/24 22:05 04/10/24 22:05 Labs: Lab Results 04/10/24 04/10/24 04/10/24 Range/Units 21:53 21:55 22:05 WBC 7.0 (4.8-10.8) X10*3/uL RBC 3.91 L (4.20-5.50) X10*6/uL Hgb 10.1 L (12.0-16.0) g/dl Hct 32.8 L (37.0-47.0) % MCV 83.9 (80.0-98.0) fL MCH 25.8 L (27.0-33.0) pg MCHC 30.8 L (31.0-35.0) g/dl RDW 17.8 H (11.0-16.0) % Plt Count 248 (160-400) X10*3/uL MPV 11.3 (9.4-12.3) fL Immature Gran % (Auto) 0.3 (0.0-0.4) % Neut % (Auto) 65.5 (45-73) % Lymph % (Auto) 21.8 (20-40) % [place] % (Auto) 8.6 (2-11) % Eos % (Auto) 3.2 (0-4) % Baso % (Auto) 0.6 (0-2) % Lymph # (Auto) 1.5 (1.2-4.9) X10*3/uL [place] # (Auto) 0.6 (0.1-1.2) X10*3/uL Eos # (Auto) 0.2 (0.0-0.4) X10*3/uL Baso # (Auto) 0.0 (0.0-0.2) X10*3/uL Abs Immat Gran (auto) 0.02 (0.00-0.03) X10*3/uL Absolute Neuts (auto) 4.6 (2.0-8.3) x10*3/uL Absolute Nucleated RBC 0.000 (0.0-0.012) X10*3/uL Nucleated RBC % (auto) 0.0 (0.0-0.2) /100WBC Whole Blood PT 12.3 (11.1-13.5) sec Whole Blood INR 1.0 (0.9-1.1) Sodium 141 (135-145) mmol/L Potassium 4.4 (3.3-5.1) mmol/L Chloride 107 (96-108) mmol/L Carbon Dioxide 25 (22-29) mmol/L Anion Gap 13 (12-20) BUN 21 H (9-16) mg/dL Creatinine 0.93 (0.5-1.4) mg/dL Estim Creat Clear Calc 60.5 Estimated GFR 60 POC Glucose 160 H (60-115) mg/dL Random Glucose 150 H (60-115) mg/dL Calcium 9.0 (8.4-10.2) mg/dL Magnesium 2.0 (1.6-2.6) mg/dL Total Bilirubin 0.2 (0.0-1.0) mg/dL Direct Bilirubin < 0.2 (0.0-0.5) mg/dL AST 21 (5-31) U/L ALT 14 (0-31) U/L Alkaline Phosphatase 75 (39-117) U/L Troponin I High Sens 23.2 H (<3.5-17.0) ng/L Total Protein 7.4 (6.5-8.0) g/dL Albumin 4.0 (3.5-5.0) g/dL Ethyl Alcohol < 10 mg/dL Independent Interpretation I performed an independent interpretation of an: CT Scan Radiology Impression Discussion of test interpretation with radiology: I have reviewed the radiologist's reading. Radiologist Impression: FINDINGS: The degree of stenosis determined by criteria similar to NASCET. CT head: There is no evidence of acute intracranial hemorrhage or territorial infarction. There is no loss of carrillo to white matter differentiation. No abnormal mass effect or midline shift is seen. No extra-axial fluid collections are identified. There is no abnormal enhancement. The ventricles are normal in size. A few subtle foci of hypoattenuation in the subcortical and periventricular white matter are most consistent with chronic microangiopathic changes. The osseous structures and soft tissues are normal. Minimal pneumatization of the right mastoid. The left mastoid air cells and visualized portions of the paranasal sinuses are well aerated. CTA neck: The aortic arch is of normal contour and caliber. Classic 3 vessel branching pattern of the aortic arch. No significant stenosis of the branch origins. The common and internal carotid arteries opacify normally without focal stenosis or occlusion. The cervical segments of the vertebral arteries opacify normally without focal stenosis or occlusion. Assessment of the origin of the left vertebral artery is somewhat limited due to beam morning artifact created by contrast material within venous collaterals at the left cervicothoracic junction. Atherosclerotic calcifications are present at the carotid bulbs without flow-limiting stenoses. The thyroid gland and remaining cervical soft tissues are within normal limits. No significant abnormalities of the cervical spine. Marked osteoarthritis of the temporomandibular joints. Moderate multilevel degenerative spondylosis in the cervical spine, most notably at C5-C6 and C6-C7. Marked multilevel facet arthropathy. The visualized lung apices and upper mediastinum are within normal limits. CTA head: There is normal opacification of major intracranial arteries. No focal flow-limiting stenosis or discrete proximal large artery occlusion. As previously seen, there is a saccular aneurysm projecting laterally from the right MCA bifurcation, measuring 3 x 3.5 x 3.5 mm, not appreciably changed. No new aneurysmal dilatation. Normal contrast opacification of the petrous, cavernous, paraophthalmic, and supraclinoid segments of the internal carotid arteries without focal stenosis. Atherosclerotic calcifications are present in the cavernous portions of the ICAs. Normal appearance of the anterior cerebral arteries without focal occlusion or stenosis. Middle cerebral arteries are normal in appearance aside from the aforementioned right MCA aneurysm. Normal anterior communicating artery. Normal arborization of the middle cerebral arteries. Normal appearance of the intradural vertebral and posterior inferior cerebellar arteries. Normal appearance of the basilar, superior cerebellar, and P1 segments of the posterior cerebral arteries. No appreciable posterior communicating arteries, likely developmental variant. Normal appearance of the distal segments of the posterior cerebral arteries bilaterally. CT/CT angio head neck stroke IMPRESSION: 1. No acute intracranial pathology. No acute arterial occlusions or significant stenoses in the head or neck. 2. 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 NIH Stroke Scale Internal: Initial- Upon Arrival Level of Consciousness: Alert Level of Consciousness Questions: Answers both questions correctly Level of Consciousness Commands: Performs both tasks correctly Best Gaze: Normal Visual: No visual loss Facial Palsy: Normal Motor Arm (Right): No drift Motor Arm (Left): No drift Motor Leg (Right): No drift Motor Leg (Left): No drift Limb Ataxia: Absent Sensory: Normal Best Language: No aphasia Dysarthia: Normal Extinction and Inattention: No abnormality Score: 0 Discharge Plan Discharge Clinical Impression: Brain TIA Patient Disposition: Admitted As Inpatient Prescriptions: No Action albuterol sulfate 2.5 mg /3 mL (0.083 %) solution for nebulization 1 vial inhalation Q4H PRN (Reason: wheezing) ucimgtakzy-puymirfwvvywg-ahem 50-325-40 mg tablet 1 tab PO Q6H PRN (Reason: Headache) atorvastatin 80 mg Tablet 80 mg PO BEDTIME Qty: 0 0RF aspirin 81 mg Tablet,Delayed Release (Dr/Ec) 81 mg PO DAILY Qty: 30 0RF amitriptyline 50 mg Tablet 100 mg PO BEDTIME Qty: 60 0RF magnesium oxide 400 mg (241.3 mg magnesium) Tablet 400 mg PO BEDTIME Qty: 30 0RF gabapentin 300 mg Capsule 300 mg PO BID Qty: 60 0RF metoprolol succinate 25 mg Tablet Extended Release 24 Hr 25 mg PO DAILY Qty: 0 0RF Protocol: Hold for SBP/HR < HOLD for SBP < : 90 HOLD for HR < : 60 fluticasone propionate 50 mcg/actuation [place],Suspension 1 spray intranasal DAILY Qty: 0 0RF metformin 500 mg Tablet Extended Release 24 Hr 500 mg PO BID Qty: 60 0RF risperidone 1 mg Tablet 1 mg PO BID Qty: 60 0RF loratadine 10 mg Tablet 10 mg PO DAILY Qty: 0 0RF pyridoxine (vitamin B6) 50 mg Tablet 50 mg PO DAILY Qty: 30 0RF montelukast 10 mg Tablet 10 mg PO BEDTIME Qty: 30 0RF sennosides [senna] 8.6 mg tablet 8.6 mg PO DAILY ondansetron HCl 4 mg tablet 4 mg PO Q8H PRN (Reason: nausea) clonazepam 1 mg tablet 1 mg PO BEDTIME pantoprazole 40 mg tablet,delayed release (DR/EC) 40 mg PO DAILY docusate sodium 100 mg capsule 100 mg PO BID nystatin 100,000 unit/gram powder 1 appl topical QID PRN (Reason: Rash) cefuroxime axetil 250 mg Tablet 250 mg PO BID Qty: 4 0RF insulin glargine [Lantus U-100 Insulin] 100 unit/mL Solution 15 unit subcut DAILY Qty: 0 0RF (DME) lancets [OneTouch Delica Plus Lancet] 33 gauge misc See Rx Instructions .ROUTE BID Qty: 100 Rx Instructions: As directed albuterol sulfate 90 mcg/actuation HFA aerosol inhaler 2 puff inhalation Q4H PRN (Reason: wheezing) (DME) OneTouch Ultra Test Strip See Rx Instructions .ROUTE BID Qty: 10 Rx Instructions: As directed Print Language: Amharic
[2024-04-10 23:31] VITALS: BP 144/63; PULSE 82; RESP 19; O2SAT 96
[2024-04-10 23:49] VITALS: BP 145/70; PULSE 78; RESP 16; O2SAT 95
[2024-04-11] VITALS (7 sets, daily range): BP systolic 111–175; BP diastolic 60–79; PULSE 66–104; RESP 14–20; TEMP 36–36.7; O2SAT 95–98; BMI 30.2
--- NOTE | 2024-04-11 00:06 | PM.IMHP ---
History of Present Illness Date of Service: 04/10/24 Attending physician on admission: Rogelio Zelayamaria del carmen Keating Chief Complaint: Right leg weakness + slurred speech Melyssa Keating is a 68 years old woman with past medical history significant for type 2 diabetes mellitus on insulin, old stroke, brain aneurysm, hyperlipidemia, JOSÉ, essential hypertension and COPD was brought to the emergency department by her daughter after her daughter noted that the patient was dragging her right leg [place] the [place] today around 19:00. Daughter also noted that the patient was having slurred speech. Patient did not report facial numbness, acute visual disturbances, seizures, confusion, nausea, vomiting, chest pain, shortness on breath or dizziness. Patient also complained of chronic symptoms such as occasional headache and left upper extremity weakness. Patient has been also falling a lot at least 3 times over the last several months. About a month ago she fell and hit her right shoulder and did not seek medical attention. Denied alcohol abuse, tobacco smoking or illicit drug use. In the ED, she was found to have stable vital signs. Blood workup showed no leukocytosis. Hemoglobin is 10.1 and platelets are normal. There are no significant electrolyte imbalances, creatinine is normal and glucose 160. LFTs are normal. Head CT scan without contrast showed no acute intracranial pathology. 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 ECG showed normal sinus rhythm with a heart rate 85 beats per minute without acute ischemic changes. NIH: 0 ED Tx: None. Review of Systems Review of Systems: All 12 systems were reviewed and normal except as noted in HPI. [facility] Medical History Delusions Major neurocognitive disorder Chest pain Dyspnea on exertion COVID-19 GERD (gastroesophageal reflux disease) DJD (degenerative joint disease) COPD (chronic obstructive pulmonary disease) Bipolar disorder CTS (carpal tunnel syndrome) Hx of rheumatoid arthritis Diabetic neuropathy Urinary incontinence Aneurysm of middle cerebral artery Pulmonary nodules CHF (congestive heart failure) Palpitations Migraine History of COVID-19 Mild aortic stenosis Asthma Insulin dependent type 2 diabetes mellitus Mixed hyperlipidemia Mood disorder Essential hypertension Family History Mother Myocardial infarction Father Myocardial infarction Sister Breast cancer Brother Spleen cancer Surgical History No pertinent past surgical history Hx of cataract surgery H/O: hysterectomy Hx of cholecystectomy History of carpal tunnel release Social History Household Members: None Housing: Apartment Do you presently have visiting nurse or other home services: No Unable to assess alcohol history related to: Unknown Alcohol intake: never Comment: report given by Cleo menendez Patient Tobacco Use Status: Never used Tobacco Tobacco use type: Cigarette Cigarette Packs Per Day: 0.2 Cigarettes Per Day: 4.0 Years Smoked: 9127-4925 Smoked in Last 30 Days: No e-Cigarette/Vaping Use: Never Used Second Hand Smoke Exposure: No Use of substances other than those prescribed or required for medical reasons: No Advance Directives: Yes Advance Directives on File: Yes Advance Directives Date on File: 11/20/23 Do you have a plan to hurt others: No Plan service: No Current occupational status: retired Sexual orientation: Straight/Heterosexual Meds Allergies Allergy/AdvReac Type Severity Reaction Status Date / Time Penicillins Allergy Mild Swelling Verified 04/10/24 21:53 seafood Allergy Unknown Verified 04/10/24 21:53 Active Medications: Current Medications Acetaminophen (Acetaminophen 325 Mg Tablet) 975 mg PO Q6H PRN PRN Reason: Pain, Mild (Pain Scale 1-3), fever or headache Heparin Sodium (Porcine) (Heparin Sodium,Porcine 5,000 Unit/Ml Vial) 5,000 unit SUBCUT Q8H [facility] Melatonin (Melatonin 3 Mg Tablet) 6 mg PO BEDTIME PRN PRN Reason: Insomnia Sodium Chloride (0.9 % Sodium Chloride Flush 3 Ml Syringe) 3 ml IVFLUSH QSHIFT [facility] Home Medications ?Medication ?Instructions ?Recorded ?Confirmed ?Last Taken ?Type albuterol sulfate 90 mcg/actuation 2 puff inhalation Q4H PRN wheezing 09/27/22 11/16/23 12/15/22 History aerosol inhaler blood sugar diagnostic (Application CraftTouch #10 ea 09/27/22 10/20/23 12/15/22 History Ultra Test strips) lancets 33 gauge (Application CraftTouch Delgraciela #100 ea 09/27/22 10/20/23 12/15/22 History Plus Lancet) albuterol sulfate 2.5 mg/3 mL 1 vial inhalation Q4H PRN wheezing 12/16/22 11/16/23 12/15/22 History (0.083 %) solution for nebulization [id number] 1 tab PO Q6H PRN Headache 10/17/23 11/16/23 Unknown History 50 mg-325 mg-40 mg tablet clonazepam 1 mg tablet 1 mg PO BEDTIME 11/16/23 11/16/23 Unknown History docusate sodium 100 mg capsule 100 mg PO BID 11/16/23 11/16/23 Unknown History nystatin 100,000 unit/gram topical 1 appl topical QID PRN Rash 11/16/23 11/16/23 Unknown History powder ondansetron HCl 4 mg tablet 4 mg PO Q8H PRN nausea 11/16/23 11/16/23 Unknown History pantoprazole 40 mg tablet,delayed 40 mg PO DAILY 11/16/23 11/16/23 Unknown History release sennosides 8.6 mg tablet (senna) 8.6 mg PO DAILY 11/16/23 11/16/23 Unknown History Physical Exam Vital Signs and Narrative: Vital Signs: Last Vital Signs Temp 98.9 F 04/10/24 22:02 Pulse 82 04/10/24 23:31 Resp 19 04/10/24 23:31 BP 144/63 H 04/10/24 23:31 Pulse Ox 96 04/10/24 23:31 O2 Del Method Room Air 04/10/24 23:31 BMI result Body Mass Index 30.2 Constitutional - Awake and Alert, No apparent distress. Cooperative. Pleasant. HEENT - PERRLA, EOMI. Normal sclerae. Heart - RRR, No murmur. Lungs - Normal lung expansion, Normal respiratory effort, No respiratory distress, CTA bilaterally Abdomen - NT / ND; +BS; No rebound or guarding Extremities - Left lower leg: Edematous, tenderness. No erythema. Anterior hematoma; distal pulses intact. Right lower extremity, no edema. Musculoskeletal - Right shoulder: Limited ROM due to pain. Deformity palpable. Skin - Warm/Dry Neurological - Alert & oriented x2 (not to year), CN III-XII grossly intact, strength: RLE 3/5, LUE 4/5 LLE 4/5, LUE 4/5. Normal speech. Psychological - Appropriate affect Results Labs 04/10/24 22:05 04/10/24 22:05 Labs: Laboratory Results - last 24 hr 04/10/24 04/10/24 04/10/24 21:53 21:55 22:05 MCV 83.9 MCH 25.8 L MCHC 30.8 L RDW 17.8 H Plt Count 248 MPV 11.3 Immature Gran % (Auto) 0.3 Neut % (Auto) 65.5 Lymph % (Auto) 21.8 [place] % (Auto) 8.6 Eos % (Auto) 3.2 Baso % (Auto) 0.6 Lymph # (Auto) 1.5 [place] # (Auto) 0.6 Eos # (Auto) 0.2 Baso # (Auto) 0.0 Abs Immat Gran (auto) 0.02 Absolute Neuts (auto) 4.6 Absolute Nucleated RBC 0.000 Nucleated RBC % (auto) 0.0 Whole Blood PT 12.3 Whole Blood INR 1.0 Anion Gap 13 Estim Creat Clear Calc 60.5 Estimated GFR 60 POC Glucose 160 H Random Glucose 150 H Calcium 9.0 Magnesium 2.0 Total Bilirubin 0.2 Direct Bilirubin < 0.2 AST 21 ALT 14 Alkaline Phosphatase 75 Troponin I High Sens 23.2 H Total Protein 7.4 Albumin 4.0 Ethyl Alcohol < 10 Imaging Radiologist's Impressions: Impressions Head CT 04/10/24 22:13 IMPRESSION: No acute intracranial pathology. These results were discussed with Floridalma Manley MD by telephone on 04/10/2024 at 10:22 PM and it was ascertained that the content of the report was understood at the time of direct communication. Head/Neck CTA 04/10/24 22:37 IMPRESSION: 1. No acute intracranial pathology. No acute arterial occlusions or significant stenoses in the head or neck. 2. 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 This critical result was discussed by telephone with Dr.Natalie Manley at 10:57pm on 04/10/2024. Assessment and Plan (1) Brain TIA: Status: Acute (2) JOSÉ (obstructive sleep apnea): Status: Acute (3) Edema of left lower extremity: Status: Acute (4) Right shoulder pain: Qualifiers: Chronicity: acute Qualified Code(s): M25.511 - Pain in right shoulder Status: Acute Plan Melyssa Keating is a 68 y/o woman with PMHx presents with: Transitory ischemic attack vs acute stroke. Observation. Telemetry. Neuro checks q4h. Continue aspirin and statin. Check TTE with bubble study. Brain MRI. Neurology consult. PT/OT/Speech therapy evaluation and treatment. Left lower extremity swelling; rule out DVT. Check lower extremity venous ultrasound. Right shoulder pain with palpable deformity, s/p trauma about 1 month ago. Check right shoulder x-ray. Recurrent fall. Physiotherapy. Start vitamin-D level. Type 2 diabetes mellitus. BG checks before meals at bedtime. Insulin sliding scale. Diabetic diet. Check hemoglobin A1c. Essential hypertension. Continue metoprolol. Hyperlipidemia. Continue statin. JOSÉ. Not using CPAP. COPD. Not in acute exacerbation. We will consider nebs if patient develops shortness on breath or wheezing. Chronic anemia. Continue to monitor. Hx of brain aneurysm. Unchanged. According to patient's daughter the patient follows up with Neurology as an outpatient. Insomnia. Will avoid sedation for now as this could interfere with neurological checks. DVT prophylaxis: Heparin Code status: Full Quality Stroke Does the patient have a stroke diagnosis?: Yes Reason for No Anti-thrombotic by Day Two: N/A - Med Ordered VTE Prior VTE?: No VTE Risk Level:: Medical - moderate - high VTE Device Contraindication: Treatment Not Indicated VTE Drug Contraindication: N/A - Med Ordered
[2024-04-11] MEDS: Aspirin 81 MG TAB.CHEW 162 MG PO (02:03)
[2024-04-11] MEDS: 0.9 % Sodium Chloride Flush 3 ML SYRINGE IVFLUSH ×4 (02:04→21:49)
--- NOTE | 2024-04-11 05:45 | PC.NURSE ---
Admitted pt from the ED to rm 473 , alert and oriented, pt endorsed dysphagia even with water, advised supervision with po intake and to wait for the Speech eval , noted with unsteady gait, assisted pt to and fro the BR, SR in tele, c/o mild DANIEL which the pt claimed chronic, pt claimed falling at home 3x with noted bruising on face body and left leg, abrasion on left knee, callbell use instructed, bed alarm on.
[2024-04-11 06:20] LABS: MANUAL DIFF FLAG NO
[2024-04-11 06:47] LABS: Estimated Average Glucose 146 mg/dL; Hemoglobin A1c % 6.7 % (<6.0)
[2024-04-11 06:48] LABS: Anion Gap 10 (12-20); Blood Urea Nitrogen 16 mg/dL (9-16); Calcium 9.4 mg/dL (8.4-10.2); Carbon Dioxide 30 mmol/L (22-29); Chloride 105 mmol/L (96-108); Estimated Glomerular Filt Rate > 60; Glucose Random 118 mg/dL (60-115); Potassium 3.6 mmol/L (3.3-5.1); Sodium 141 mmol/L (135-145)
[2024-04-11 06:54] LABS: Basophils Percent Auto 0.5 % (0-2); Eosinophils Absolute Auto 0.2 X10*3/uL (0.0-0.4); Eosinophils Percent Auto 3.5 % (0-4); Hematocrit 31.2 % (37.0-47.0); Hemoglobin 9.4 g/dl (12.0-16.0); Imm Gran Abs Auto 0.02 X10*3/uL (0.00-0.03); Imm Gran Pct Auto 0.3 % (0.0-0.4); Lymphocytes Absolute Auto 1.7 X10*3/uL (1.2-4.9); Lymphocytes Percent Auto 26.3 % (20-40); Mean Corpuscular HGB Conc 30.1 g/dl (31.0-35.0); Mean Corpuscular Hemoglobin 25.2 pg (27.0-33.0); Mean Corpuscular Volume 83.6 fL (80.0-98.0); Mean Platelet Volume 11.1 fL (9.4-12.3); Monocytes Absolute Auto 0.7 X10*3/uL (0.1-1.2); Monocytes Percent Auto 10.5 % (2-11); Neutrophils Absolute Auto 3.7 x10*3/uL (2.0-8.3); Neutrophils Percent Auto 58.9 % (45-73); Platelet Count 244 X10*3/uL (160-400); Red Blood Count 3.73 X10*6/uL (4.20-5.50); Red Cell Distribution Width 17.8 % (11.0-16.0); White Blood Count 6.3 X10*3/uL (4.8-10.8)
[2024-04-11 07:07] LABS: Vitamin D 25-OH Total 23.2 ng/mL (>30)
[2024-04-11 07:27] LABS: Glucose, Whole Blood 84 mg/dL (60-115)
[2024-04-11] MEDS: Heparin Sodium,Porcine 5,000 UNIT/ML VIAL 5000 UNIT SUBCUT ×2 (09:11→17:55)
[2024-04-11] MEDS: traMADoL HCL 50 MG TABLET 25 MG PO ×2 (09:41→21:46)
[2024-04-11 10:57] LABS: Glucose, Whole Blood 189 mg/dL (60-115)
--- NOTE | 2024-04-11 11:01 | PM.EVENT ---
Event Note Date of Service: 04/11/24 Event Note: Pt seen/examaned. Presented with transient weakness, negative CVA on CT. MRI pending for further eval, if negative, will discharge Time Spent With Patient Time: Total time managing care of this patient today ____ minutes.
--- NOTE | 2024-04-11 11:04 | MHC.CM.PN ---
Addendum entered by Penny Doran 04/11/24 14:17: New HCP completed with pt, now on file. HCP's are her sister Tracy, and her daughter Celina. Original Note: CAROL 04/11. This CM met with pt with the assistance of a paraprofessional interpreter. Pt reports living alone and states she has [employer] services. Pts daughter will transport her home. HCP on file. however pt states she would like to remove Laura as her HCP and complete a new one naming new people. Pt is going to get the information needed for the HCP's and let CM know when once she has the correct information in order to complete HCP. PCP: Dr. Ashiwn Arzola
--- NOTE | 2024-04-11 11:34 | P.CNNE_ITS ---
History of Present Illness Data of Consult Service Date: 04/11/24 Primary Care Provider: Ashwin Arzola III, MD HPI Reason for consult: Right leg weakness 68 years old woman who was in [place] yesterday when she said that she started shaking and then was noted to have right leg weakness and slurred speech. She said that she was not stressed or sick otherwise from any other illness. She was having frequent headaches. He was brought to emergency room and had multiple imaging tests done revealing a small cerebral aneurysm and was admitted. Review of Systems 2 Review of Systems: No recent cold or flu-like illness PMFSH Past Medical History Medical History Delusions Major neurocognitive disorder Chest pain Dyspnea on exertion COVID-19 GERD (gastroesophageal reflux disease) DJD (degenerative joint disease) COPD (chronic obstructive pulmonary disease) Bipolar disorder CTS (carpal tunnel syndrome) Hx of rheumatoid arthritis Diabetic neuropathy Urinary incontinence Aneurysm of middle cerebral artery Pulmonary nodules CHF (congestive heart failure) Palpitations Migraine History of COVID-19 Mild aortic stenosis Asthma Insulin dependent type 2 diabetes mellitus Mixed hyperlipidemia Mood disorder Essential hypertension Family History Family History Mother Myocardial infarction Father Myocardial infarction Sister Breast cancer Brother Spleen cancer Surgical History Surgical History No pertinent past surgical history Hx of cataract surgery H/O: hysterectomy Hx of cholecystectomy History of carpal tunnel release Social History Social History Household Members: None Housing: Apartment Do you presently have visiting nurse or other home services: Yes ([employer] TE[employer] during the day, none at night) Unable to assess alcohol history related to: Unknown Alcohol intake: never Comment: report given by Cleo menendez Patient Tobacco Use Status: Never used Tobacco Tobacco use type: Cigarette Cigarette Packs Per Day: 0.2 Cigarettes Per Day: 4.0 Years Smoked: [id number] Smoked in Last 30 Days: No e-Cigarette/Vaping Use: Never Used Second Hand Smoke Exposure: No Use of substances other than those prescribed or required for medical reasons: No Currently Displaying Signs/Symptoms of Drug Intoxication Withdrawal: No Have you been hit, kicked, punched, or otherwise hurt by someone within the past year? If so, by whom?: No Do you feel safe in your current relationship?: No Is there a partner from a previous relationship who is making you feel unsafe now?: No Are you made to feel afraid or neglected: No Advance Directives: Yes Advance Directives on File: Yes Advance Directives Date on File: 11/20/23 Do you have a plan to hurt others: No Plan Recently lost weight without trying: No How much weight loss: Not applicable Eating poorly because of decreased appetite: No Nutrition screen score: 0 Nutrition Risks: Difficulty swallowing Patient : No : No Poor oral hygiene: No service: No Current occupational status: retired Sexual orientation: Straight/Heterosexual Meds Allergies Allergy/AdvReac Type Severity Reaction Status Date / Time Penicillins Allergy Mild Swelling Verified 04/10/24 21:53 seafood Allergy Unknown Verified 04/10/24 21:53 Active Medications: Current Medications Acetaminophen (Acetaminophen 325 Mg Tablet) 975 mg PO Q6H PRN PRN Reason: Pain, Mild (Pain Scale 1-3), fever or headache Glucose (Glucose Gel 15 Gm Gel..Gram.) 15 gm PO Q15M PRN; Protocol PRN Reason: per Hypoglycemia Standing Ord. Heparin Sodium (Porcine) (Heparin Sodium,Porcine 5,000 Unit/Ml Vial) 5,000 unit SUBCUT Q8H [facility] Last Admin: 04/11/24 09:11 Dose: 5,000 unit Dextrose (D10) 250 mls @ 750 mls/hr IV Q15M PRN; Protocol PRN Reason: per Hypoglycemia Standing Ord. Insulin Human Lispro (Insulin Lispro 100 Unit/Ml 3 Ml Vial) 0 unit SUBCUT QIDACHS [facility]; Protocol Last Admin: 04/11/24 07:29 Dose: Not Given Melatonin (Melatonin 3 Mg Tablet) 6 mg PO BEDTIME PRN PRN Reason: Insomnia Sodium Chloride (0.9 % Sodium Chloride Flush 3 Ml Syringe) 3 ml IVFLUSH [facility] Last Admin: 04/11/24 09:11 Dose: 3 ml Tramadol HCl (Tramadol Hcl 50 Mg Tablet) 25 mg PO Q6H PRN PRN Reason: Pain, Severe (Pain Scale 7-10) Last Admin: 04/11/24 09:41 Dose: 25 mg Home Medications ?Medication ?Instructions ?Recorded ?Confirmed ?Last Taken ?Type albuterol sulfate 90 mcg/actuation 2 puff inhalation Q4H PRN wheezing 09/27/22 11/16/23 12/15/22 History aerosol inhaler blood sugar diagnostic (Urvashi #10 ea 09/27/22 10/20/23 12/15/22 History Ultra Test strips) lancets 33 gauge (Urvashi Delica #100 ea 09/27/22 10/20/23 12/15/22 History Plus Lancet) albuterol sulfate 2.5 mg/3 mL 1 vial inhalation Q4H PRN wheezing 12/16/22 11/16/23 12/15/22 History (0.083 %) solution for nebulization [id number]-cghwpgacumzlb-[id number] 1 tab PO Q6H PRN Headache 10/17/23 11/16/23 Unknown History 50 mg-325 mg-40 mg tablet docusate sodium 100 mg capsule 100 mg PO BID 11/16/23 11/16/23 Unknown History nystatin 100,000 unit/gram topical 1 appl topical QID PRN Rash 11/16/23 11/16/23 Unknown History powder ondansetron HCl 4 mg tablet 4 mg PO Q8H PRN nausea 11/16/23 11/16/23 Unknown History pantoprazole 40 mg tablet,delayed 40 mg PO DAILY@0630 11/16/23 11/16/23 Unknown History release sennosides 8.6 mg tablet (senna) 8.6 mg PO DAILY 11/16/23 11/16/23 Unknown History amitriptyline 150 mg tablet 150 mg PO BEDTIME 04/11/24 Unknown History amitriptyline 50 mg tablet 50 mg PO BEDTIME 04/11/24 Unknown History clonazepam 0.5 mg tablet 0.5 mg PO BID PRN Anxiety 04/11/24 Unknown History duloxetine 20 mg capsule,delayed 20 mg PO DAILY 04/11/24 Unknown History release fluticasone fur. 100 mcg-umeclid 1 ea inhalation DAILY 04/11/24 Unknown History 62.5 mcg-vilant 25 mcg inhalat.powder (Trelegy Ellipta) gabapentin 300 mg capsule 300 mg PO TID 04/11/24 Unknown History naproxen 500 mg tablet 500 mg PO BID 04/11/24 Unknown History valproic acid (as sodium salt) 250 500 mg PO BEDTIME 04/11/24 Unknown History mg/5 mL oral solution zolpidem 10 mg tablet 10 mg PO BEDTIME 04/11/24 Unknown History Physical Exam 2 Vital Signs: Vital Signs: Last Vital Signs Temp 96.8 F 04/11/24 11:27 Pulse 74 04/11/24 11:27 Resp 18 04/11/24 11:27 BP 161/70 H 04/11/24 11:27 Pulse Ox 98 04/11/24 11:27 O2 Del Method Room Air 04/11/24 11:27 BMI result Body Mass Index 30.2 Neuro: Other: She is alert and awake with normal spontaneity of speech fluency comprehension and affect. Into was performed with the help of an concrete mixing plant laborer. Face was symmetrical. Visual machado are full. There was no focal weakness. Deep tendon reflexes are 1+ with flexor plantars Results Labs 04/11/24 06:05 04/11/24 06:05 Labs: Short CBC 04/10/24 04/11/24 Range/Units 22:05 06:05 WBC 7.0 6.3 (4.8-10.8) X10*3/uL Hgb 10.1 L 9.4 L (12.0-16.0) g/dl Hct 32.8 L 31.2 L (37.0-47.0) % Plt Count 248 244 (160-400) X10*3/uL BMP 04/10/24 04/11/24 22:05 06:05 Sodium 141 141 Potassium 4.4 3.6 Chloride 107 105 Carbon Dioxide 25 30 H BUN 21 H 16 Creatinine 0.93 0.74 Calcium 9.0 9.4 Liver Function 04/10/24 Range/Units 22:05 Total Bilirubin 0.2 (0.0-1.0) mg/dL Direct Bilirubin < 0.2 (0.0-0.5) mg/dL AST 21 (5-31) U/L ALT 14 (0-31) U/L Alkaline Phosphatase 75 (39-117) U/L Albumin 4.0 (3.5-5.0) g/dL CTA of brain CTA of brain and neck and previous MRI of brain were reviewed. No definite abnormality was noted except that there is mild hypodensity in left posterior parietal area with punctate enhancement with contrast. Assessment and Plan (1) Seizure disorder: Status: Acute 68 years old woman who might have a seizure resulting in body shaking right leg weakness and slurred speech. No obvious acute lesion was noted on CT and CTA of brain but there is mild abnormality in left posterior parietal area, which needed further investigation. My recommendation is to obtain an MRI of brain without contrast and with if any suspicious lesion is noted. An EEG is also recommended. Procedures Date of Service Date of Service: 04/11/24
[2024-04-11 13:08] LABS: Appearance Urine Clear; Color Urine Yellow; Glucose Urine UA Negative (Negative); Leukocyte Esterase Urine Negative (Negative); Nitrite Urine Negative (Negative); PH 6.5 (5.0-9.0); Specific Gravity - Urine 1.025 (1.005-1.025); Urine Blood Negative (Negative); Urine Ketones Negative (Negative); Urine Protein Negative (Neg-Trace)
[2024-04-11 13:19] LABS: Amphetamine Screen Urine Not Detected (Not Detect); Barbiturates, Urine POSITIVE (Not Detect); Benzodiazepines Screen Urine Not Detected (Not Detect); Buprenorphine Scr Not Detected (Not Detect); Cannabinoid Screen Urine Not Detected (Not Detect); Cocaine Screen Urine Not Detected (Not Detect); Fentanyl, urine Not Detected (Not Detect); Methadone Screen, Urine Not Detected (Not Detect); Opiate Screen Urine Not Detected (Not Detect); Oxycodone Screen Urine Not Detected (Not Detect); Phencyclidine Screen Urine Not Detected (Not Detect)
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
--- NOTE | 2024-04-11 15:53 | PHA.MEDREC ---
Pharmacy Consult ? Medication Reconciliation Pharmacy has completed the medication reconciliation. Utilized cost accountant services. Pt and patient's family do not know medications. Called pt's pharmacy and utilized claim history to confirm meds. Leaving aspirin, flonase, and B6 unconfirmed. Patient was able to confirm taking 35 units of lantus at night.
[2024-04-11 16:05] LABS: Glucose, Whole Blood 144 mg/dL (60-115)
[2024-04-11] MEDS: Metoprolol Succinate ER 25 MG TAB.ER.24H PO (17:55)
[2024-04-11] MEDS: DULoxetine HCl 20 MG CAPSULE.DR PO (17:55)
[2024-04-11] MEDS: DULoxetine HCl 60 MG CAPSULE.DR PO (18:33)
[2024-04-11 19:55] LABS: Glucose, Whole Blood 109 mg/dL (60-115)
[2024-04-11] MEDS: Insulin Glargine,Hum.rec.anlog 100 UNIT/ML 10 ML VIAL 35 UNIT SUBCUT (21:44)
[2024-04-11] MEDS: clonazePAM 0.5 MG TABLET PO (21:47)
[2024-04-11] MEDS: Atorvastatin Calcium 80 MG TABLET PO (21:47)
[2024-04-11] MEDS: Magnesium Oxide 400 MG TABLET PO (21:47)
[2024-04-11] MEDS: Amitriptyline HCl 50 MG TABLET PO (21:47)
[2024-04-11] MEDS: Docusate Sodium 100 MG CAPSULE PO (21:47)
[2024-04-11] MEDS: Zolpidem Tartrate 5 MG TABLET PO (21:47)
[2024-04-11] MEDS: Montelukast Sodium 10 MG TABLET PO (21:48)
[2024-04-11] MEDS: Gabapentin 300 MG CAPSULE PO (21:48)
[2024-04-11] MEDS: Melatonin 3 MG TABLET 6 MG PO (21:48)
[2024-04-11] MEDS: NaPROXEN 500 MG TABLET PO (21:48)
[2024-04-11] MEDS: metFORMIN HCl ER 500 MG TAB.ER.24H PO (21:49)
[2024-04-11] MEDS: Amitriptyline HCl 50 MG TABLET 150 MG PO (21:49)
[2024-04-11] MEDS: Cholecalciferol (Vitamin D3) 25 MCG TABLET 50 MCG PO (21:49)
[2024-04-12] VITALS: BP 149/74; PULSE 76; RESP 18; TEMP 36.4; O2SAT 93
--- NOTE | 2024-04-12 03:26 | PC.NURSE ---
Pt AOx3, Cypriot speaking only. Pt had no c/o pain. She has scattered bruising and bruising to shoulder d/t falls at home. Pt is unsteady on her feet, x1 assist w/walker. She was OOB to recliner for some time during the beginning of this RNs shift. Call godfrey within reach, bed alarm on.
[2024-04-12 03:40] VITALS: BP 140/68; PULSE 65; RESP 18; TEMP 36.2; O2SAT 97
[2024-04-12] MEDS: Omeprazole 20 MG CAPSULE.DR PO (05:57)
--- NOTE | 2024-04-12 07:00 | CA_ITS ---
Transthoracic Echocardiogram Patient (Last, First, Middle): Melyssa Keating, Gender: Female Date of : 1955 Age: 68 Procedure Date: 04/12/2024 Procedure Type: Transthoracic Echocardiogram [place] [facility] [place]: 165.1 cm Weight: 82.1 kg BSA: 1.90 m2 Heart Rate: bpm BP: 140 / 68 mmHg Crop Picker: [id number] Referring MD: Rogelio Keating MD Symptoms: TIA Study Quality: Good ECG Rhythm: Sinus Conclusions: - The left ventricular systolic function is normal. The calculated ejection fraction is 60% by biplane method. - There is moderate calcification of the aortic valve. There is mild aortic valve stenosis. - There is moderate mitral annular calcification. Findings Left Ventricle Normal left ventricular cavity size. There is mildly increased left ventricular wall thickness. The left ventricular systolic function is normal. The calculated ejection fraction is 60% by biplane method. There is no evidence of regional wall motion abnormalities. Evidence suggests grade I (mild) diastolic dysfunction. Right Ventricle Normal right ventricular cavity size and systolic function. Atria Both atria are normal in size. Aortic Valve There is moderate calcification of the aortic valve. There is mild aortic valve stenosis. There is no aortic valve regurgitation. Mitral Valve There is moderate mitral annular calcification. There is trace mitral valve regurgitation. There is no mitral valve stenosis. Pulmonic Valve The pulmonic valve is likely normal. Tricuspid Valve There is trace tricuspid valve regurgitation. There is no evidence of pulmonary hypertension. Great Vessels The asc aorta is normal in size. Moderate plaque is seen in the sinuses of Valsalva. Venous The inferior vena cava is normal in size and collapses greater than 50% with inspiration. Pericardium/Pleural There is no evidence of pericardial effusion. Prior Study Comparison No significant change compared to prior study dated: 11/26/2022. Measurements 2D Linear Measurements IVSd: 1.13 0.6-0.9/0.6-1.0 cm LVIDd: 4.53 3.9-5.3/4.2-5.9 cm LVIDd Index: 2.38 2.4-3.2/2.2-3.1 cm/m2 LVIDs: 2.97 2.0-3.6 cm LVPWd: 1.24 0.7-1.1 cm LA Diam: 4.20 2.7-3.8/3.0-4.0 cm LAIDs Index: 2.21 1.5-2.3 cm/m2 LV Mass: 244.97 67-162/88-224 g LV Mass Index: 128.93 43-95/49-115 g/m2 LVOT Diam: 2.00 3.0+(-)1.3 cm 2D Systolic Function EF 4C: 62.30 >55% EF 2C: 57.90 >55% EF BiP: 60.30 >55% Mitral Valve MV Pk E: 1.06 MV PK A: 1.11 MV Decel Time: 216.00 E/A: 1.00 E'Lateral: 4.68 E'Medial: 4.57 E/E' Med: 23.20 E/E' Lat: 22.60 PHT: 63.00 MVA PHT: 3.49 Decel [place]: 4.91 Aortic Valve AoV Pk Terence: 1.98 AoV Mn Terence: 1.34 AoV VTI: 0.48 AoV Pk Grad: 16.00 Aov Mn Grad: 8.00 BAKARI Cont.VTI: 1.66 LVOT LVOT Pk Terence: 1.02 LVOT Mn Terence: 0.65 LVOT VTI: 0.25 LVOT Pk Grad: 4.00 LVOT Mn Grad: 2.00 LVOT Diam: 2.00 LVOT Area: 3.14 Diastolic Function MV Pk E: 1.06 MV Pk A: 1.11 E/A: 1.00 E'Medial: 4.57 E/E' Med: 23.20 E' Laterial: 4.68 E/E' Lat: 22.60 Right Ventricle TAPSE (mm): 21.00 TVS' Terence: 10.00 Tricuspid Valve TR Pk Terence: 2.20 TR Pk Grad: 19.00 RA Press: 3.00 RVSP: 22.00 Great Vessels Aorta Ao Asc: 3.10 2.1-3.4 cm Updated in Other Vendor System with Status of Final Josemanuel Henao MD electronically signed on 04/12/2024 11:42:58 AM with status of Final
[2024-04-12 07:36] LABS: Glucose, Whole Blood 65 mg/dL (60-115)
[2024-04-12] MEDS: Fluticasone/Umeclidinium/Vilanterol 100/62.5/25 BLST.W.DEV 1 PUFF INHALE (07:43)
[2024-04-12 07:47] LABS: Glucose, Whole Blood 65 mg/dL (60-115)
[2024-04-12] MEDS: Glucose Gel 15 GM GEL..GRAM. PO (07:51)
[2024-04-12 08:00] VITALS: BP 132/71; PULSE 70; RESP 20; TEMP 36; O2SAT 99
[2024-04-12 08:06] LABS: Glucose, Whole Blood 77 mg/dL (60-115)
[2024-04-12] MEDS: Cholecalciferol (Vitamin D3) 25 MCG TABLET 50 MCG PO (08:21)
[2024-04-12] MEDS: DULoxetine HCl 20 MG CAPSULE.DR PO (08:21)
[2024-04-12] MEDS: Heparin Sodium,Porcine 5,000 UNIT/ML VIAL 5000 UNIT SUBCUT ×2 (08:21→17:27)
[2024-04-12 08:22] VITALS: BP 132/71; PULSE 70
[2024-04-12] MEDS: Metoprolol Succinate ER 25 MG TAB.ER.24H PO (08:22)
[2024-04-12] MEDS: NaPROXEN 500 MG TABLET PO (08:22)
[2024-04-12] MEDS: Loratadine 10 MG TABLET PO (08:22)
[2024-04-12] MEDS: Gabapentin 300 MG CAPSULE PO ×2 (08:22→17:26)
[2024-04-12] MEDS: Sennosides 8.6 MG TABLET PO (08:22)
[2024-04-12] MEDS: DULoxetine HCl 60 MG CAPSULE.DR PO (08:23)
[2024-04-12] MEDS: 0.9 % Sodium Chloride Flush 3 ML SYRINGE IVFLUSH (08:23)
[2024-04-12] MEDS: Docusate Sodium 100 MG CAPSULE PO (08:24)
--- NOTE | 2024-04-12 11:16 | MHC.CM.PN ---
Addendum entered by Sandi Petit 04/12/24 11:37: [facility] informed CM that pt. has SN visits, MOW, lifeline, and personal care services. [facility] will cover AR and STR, referrals out. [facility] can inquire if they have PT services available in the home, if pt declines rehab. CM to call [facility] if this is the plan. Original Note: CM met with pt with the assistance of an excellence manager to ask if she is willing to go to acute rehab or STR which is recommended by OT and PT. Pt. was very lethargic, CM not clear if she understood discussion. CM called new HCP, Tracy to ask if she is aware if pt has been to STR before, and what help she has at home. Tracy, who also is SSO, does not know and said she lives in [place], so cannot help. CM will inquire of [facility] what pt.'s current services are and if they would cover STR without 3 day inpt stay. CM to speak with pt. at a later time, when she is more awake.
[2024-04-12 11:28] LABS: Glucose, Whole Blood 115 mg/dL (60-115)
[2024-04-12 11:51] VITALS: BP 125/56; PULSE 68; RESP 20; TEMP 36.3; O2SAT 94
--- NOTE | 2024-04-12 14:02 | MHC.SL.SWA ---
Speech Pathologist Impression: Risk of Aspiration Due to: Lethargy Neurological Condition Dysphasia Diet Status: Liquid Consistency and Strategies for Safe Swallow: Liquid Intake Recommendation: Thin Liquid Intake Strategies: Small Sips Solid Food Consistency: Dietary Recommendations: Chopped/Advanced (NDD3) Additional Modifications to Solid Foods: Patient is mildly confused, would benefit from tray being set up for meal, opening all items, orienting patient to foods on tray (periodic supervision). Alternate liquids and solids. Straws o.k. Do not attempt if patient is lethargic. Oral Medication Intake: Whole with Liquid Please contact the pharmacy regarding appropriate crushable or liquid drug formulations that are available whenever modified delivery is recommended. Compensatory Strategies and Precautions to be Taken for Safe Swallow: Sitting Upright (90 deg) Small Bites and Sips Alternate Liquids/Solids Supervision While Eating and Drinking for Safe Swallow: Intermittent Supervision Foods to Avoid: Tough, difficult to chew solids, crunchy or dry textures. Swallowing Recommended Treatments: Compens. Strategy Educat. Recommendation for Speech: Inpatient Speech Therapy Comment: Patient presents with mild oral phase dysphagia, secondary to mild, generalized lingual weakness, absent upper teeth. Recommend DOWNGRADE diet to Chopped/Advanced, continue on thin liquids (straws ok) pills whole with liquid. Patient is able to feed self, but is mildly confused, requires some initial supervision/assistance at meals (set up tray, open all items, orient patient to meal, periodic checks for progress). MD/RD notified of recommendation by secure text, RN in person. AUTOMOBILE DETAILER to f/u 1-2X for toleration of diet, speech/lang/cognitive testing if indicated. AUTOMOBILE DETAILER adjusted diet in Expanse. Frequency/Duration: Date Range for Service Req: Timeline to reassess: Belt Loop Machine Operator Clinican/Clinical Fellow: No Supervisory Statement: I have reviewed and agree with the student/clinical fellow's documentation: N/A Speech Language Pathologist: Daya Rahman M.A., CCC-AUTOMOBILE DETAILER
[2024-04-12 15:08] VITALS: BP 132/63; PULSE 77; RESP 21; TEMP 35.9; O2SAT 96
--- NOTE | 2024-04-12 15:50 | W.MHC.F2F ---
Service Date Service Date: 04/12/24 Encounter Date of encounter: 04/12/24 Reasons for Services Signs and symptoms assessed: TIA, unsteady gait Reason for halfway: medication management and teach disease management Reason for physical therapy: home safety and mobility, therapeutic exercises and gait/transfer training Homebound: Leaving the home is medically contraindicated at this time without the asist of a device and/or another person due th the listed conditions above and below. Reason homebound: unsteady gait / fall risk Homebound supporting statement: homebound due to unsteady gait, tia and needs the assistance of another person Certification: Based on the above findings, I certify that this patient is confined to the home and needs intermittent halfway care, physical therapy and/or speech therapy, or continues to need occupational therapy. The patient is under my care, and I have initiated the establishment of the plan of care. The patient will be followed by a physician who will periodically review the plan of care. Time Spent With Patient Time: Total time managing care of this patient today ____ minutes.
--- NOTE | 2024-04-12 15:59 | PM.DS ---
DS: Providers Provider Date of Service: 04/12/24 Date of admission: 04/10/24 23:49 Primary care physician: Ashwin Arzola III, MD Consults: 04/10/24 23:53 Consult to Neurology Routine Consulting Provider: [facility] Reason for consultation: Left leg weakness, speech difficulty Has provider been notified: No DS: Diagnosis Discharge Diagnosis (1) Seizure disorder: Status: Acute DS: Summary Hospital Course Hospital Course: admission hpi Chief Complaint: Right leg weakness + slurred speech Melyssa Keating is a 68 years old woman with past medical history significant for type 2 diabetes mellitus on insulin, old stroke, brain aneurysm, hyperlipidemia, JOSÉ, essential hypertension and COPD was brought to the emergency department by her daughter after her daughter noted that the patient was dragging her right leg while [place] the mall today around 19:00. Daughter also noted that the patient was having slurred speech. Patient did not report facial numbness, acute visual disturbances, seizures, confusion, nausea, vomiting, chest pain, shortness on breath or dizziness. Patient also complained of chronic symptoms such as occasional headache and left upper extremity weakness. Patient has been also falling a lot at least 3 times over the last several months. About a month ago she fell and hit her right shoulder and did not seek medical attention. Denied alcohol abuse, tobacco smoking or illicit drug use. In the ED, she was found to have stable vital signs. Blood workup showed no leukocytosis. Hemoglobin is 10.1 and platelets are normal. There are no significant electrolyte imbalances, creatinine is normal and glucose 160. LFTs are normal. Head CT scan without contrast showed no acute intracranial pathology. 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 ECG showed normal sinus rhythm with a heart rate 85 beats per minute without acute ischemic changes. NIH: 0 Hospital course: The patient presented with right leg weakness and slurred speech, raising concerns for a stroke. However, both a head CT and a brain MRI showed no evidence of an acute stroke, and her symptoms have since resolved. Physical therapy evaluated her and recommended rehabilitation, but she has consistently expressed a desire to return home. As a result, she will be discharged with home physical therapy and VNA services. To continue Lipitor and adding Baby Aspirin Time Attestation Discharge Coordination Time (in mins): 35 Quality: Safe Use of Opioids Does Pt have an Active Cancer Diagnosis on the Problem List?: No Quality: Stroke Does the patient have a stroke diagnosis?: No Physical Exam Vital Signs: Vital Signs: Last Vital Signs Temp 96.6 F L 04/12/24 15:08 Pulse 77 04/12/24 15:08 Resp 21 H 04/12/24 15:08 BP 132/63 04/12/24 15:08 Pulse Ox 96 04/12/24 15:08 O2 Del Method Room Air 04/12/24 15:08 BMI result Body Mass Index 30.2 DS: Data Data Completed and Pending Labs on day of discharge: Laboratory Results - last 24 hr 04/11/24 04/11/24 04/12/24 15:59 19:50 07:25 POC Glucose 144 H 109 65 04/12/24 04/12/24 04/12/24 07:42 08:03 11:22 POC Glucose 65 77 115 Discharge Plan Discharge Anticipated Discharge Date/Time: 04/12/24 15:54 Patient Disposition: Home Health Service Discharge Diagnosis: TIA Referrals: Ashwin Arzola III, MD [Primary Care Provider] - 1 Week Discharge Medications: Continued zdrwleyxls-ymqfzrepwzqnp-ftbr 50-325-40 mg tablet 1 tab PO Q6H PRN (Reason: Headache) atorvastatin 80 mg Tablet 80 mg PO BEDTIME Qty: 0 0RF aspirin 81 mg Tablet,Delayed Release (Dr/Ec) 81 mg PO DAILY Qty: 30 0RF magnesium oxide 400 mg (241.3 mg magnesium) Tablet 400 mg PO BEDTIME Qty: 30 0RF metoprolol succinate 25 mg Tablet Extended Release 24 Hr 25 mg PO DAILY Qty: 0 0RF Protocol: Hold for SBP/HR < HOLD for SBP < : 90 HOLD for HR < : 60 fluticasone propionate 50 mcg/actuation [place],Suspension 1 spray intranasal DAILY Qty: 0 0RF metformin 500 mg Tablet Extended Release 24 Hr 500 mg PO BID Qty: 60 0RF loratadine 10 mg Tablet 10 mg PO DAILY Qty: 0 0RF pyridoxine (vitamin B6) 50 mg Tablet 50 mg PO DAILY Qty: 30 0RF montelukast 10 mg Tablet 10 mg PO BEDTIME Qty: 30 0RF sennosides [senna] 8.6 mg tablet 8.6 mg PO DAILY ondansetron HCl 4 mg tablet 4 mg PO Q8H PRN (Reason: nausea) pantoprazole 40 mg tablet,delayed release (DR/EC) 40 mg PO DAILY@0630 docusate sodium 100 mg capsule 100 mg PO BID amitriptyline 150 mg tablet 150 mg PO BEDTIME Rx Instructions: with 50 mg clonazepam 0.5 mg tablet 0.5 mg PO BID PRN (Reason: Anxiety) valproic acid (as sodium salt) 250 mg/5 mL solution 500 mg PO BEDTIME zolpidem 10 mg tablet 10 mg PO BEDTIME naproxen 500 mg tablet 500 mg PO BID duloxetine 20 mg capsule,delayed release(DR/EC) 20 mg PO DAILY Rx Instructions: with 60 mg Trelegy Ellipta 100-62.5-25 mcg blister with device 1 ea INHALATION DAILY amitriptyline 50 mg tablet 50 mg PO BEDTIME Rx Instructions: with 150 mg gabapentin 300 mg capsule 300 mg PO TID duloxetine 60 mg capsule,delayed release(DR/EC) 60 mg PO DAILY Rx Instructions: with 20 mg insulin glargine [Lantus U-100 Insulin] 100 unit/mL solution 35 unit subcut BEDTIME (DME) lancets [OneTouch Delica Plus Lancet] 33 gauge misc See Rx Instructions .ROUTE BID Qty: 100 Rx Instructions: As directed albuterol sulfate 90 mcg/actuation HFA aerosol inhaler 2 puff inhalation Q4H PRN (Reason: wheezing) (DME) OneTouch Ultra Test Strip See Rx Instructions .ROUTE BID Qty: 10 Rx Instructions: As directed Discharge Orders: Discharge Order (Routine); Ordered 04/12/24 Ordered By: Nick Villagomez Diet: Advance to usual diet Activity on Discharge: As tolerated Stand Alone Forms: Patient Portal Discharge page Print Language: Welsh Care Plan Goals: Recovery from TIA and stroke prevention Health Concerns: TIA Unsteady gait Plan of Treatment: Physical therapy at home, you have declined to go rehab continue all your other medications Assessment: see above
--- NOTE | 2024-04-12 16:19 | MHC.CM.PN ---
Addendum entered by Sandi Petit 04/13/24 10:21: CM just received information that this pt in active with [facility]. referral [facility] cancelled, and [facility] will add PT. Addendum entered by Sandi Petit 04/13/24 08:50: [facility] accepted pt. for home care services Original Note: Pt has been medically cleared for DC, she will go home via private transport and have VNA services, still awaiting response from referral. [facility] was not able to provide PT services.
[2024-04-12 16:24] LABS: Glucose, Whole Blood 112 mg/dL (60-115)
== END 2024-04-12 17:48 | disposition home health service (06) ==
LOC: HO.ED 04-11 00:05 → HO.EDOVER 04-11 01:01 → HO.IMC 04-11 03:13
PROVIDERS: Admitting Provider Internal Medicine; Emergency Provider Emergency Medicine; PCP Internal Medicine; Visit Provider Internal Medicine
DX: G45.9 Transient cerebral ischemic attack, unspecified (principal); R47.81 Slurred speech; R53.1 Weakness; G47.33 Obstructive sleep apnea (adult) (pediatric); R60.0 Localized edema; M25.511 Pain in right shoulder; G40.909 Epilepsy, unspecified, not intractable, without status epilepticus; E11.9 Type 2 diabetes mellitus without complications; J44.9 Chronic obstructive pulmonary disease, unspecified; I11.0 Hypertensive heart disease with heart failure; I50.9 Heart failure, unspecified; Z79.4 Long term (current) use of insulin; Z79.899 Other long term (current) drug therapy; Z86.73 Personal history of transient ischemic attack (TIA), and cerebral infarction without residual deficits
CPT/HCPCS: 36415; 70450; 70496; 70498; 70551; 73020; 80048; 80076; 80307; 81003; 82306; 82947; 83036; 83735; 84484; 85025; 85610; 92610; 93005; 93306; 93971; 94640; 96372; 97162; 97166; 99222; 99285; J1644

== ENCOUNTER → 2024-04-10 22:02 | Outpatient (BNV) | payer OTHER, SELFPAY | PROVIDERS: Admitting Provider Internal Medicine; Emergency Provider Emergency Medicine; PCP Internal Medicine; Visit Provider Internal Medicine Cardiovascular Disease | DX: R53.1 Weakness (principal); R47.1 Dysarthria and anarthria | CPT/HCPCS: 93010 ==

== ENCOUNTER → 2024-04-10 22:41 | Outpatient (BNV) | payer OTHER, SELFPAY | PROVIDERS: Emergency Provider Emergency Medicine; PCP Internal Medicine; Visit Provider Internal Medicine | DX: G40.909 Epilepsy, unspecified, not intractable, without status epilepticus (principal) | CPT/HCPCS: 99222; 99239; 99499; G0180 ==

== ENCOUNTER 2024-04-10 23:49 | Outpatient (BNV) | payer OTHER, SELFPAY | END 2024-04-12 07:00 | PROVIDERS: Admitting Provider Internal Medicine; Emergency Provider Emergency Medicine; PCP Internal Medicine; Visit Provider Internal Medicine | DX: I35.0 Nonrheumatic aortic (valve) stenosis (principal); I34.81 Nonrheumatic mitral (valve) annulus calcification | CPT/HCPCS: 93306 ==

== ENCOUNTER → 2024-04-10 23:49 | Outpatient (BNV) | payer OTHER, SELFPAY | PROVIDERS: Admitting Provider Internal Medicine; Emergency Provider Emergency Medicine; PCP Internal Medicine; Visit Provider Psychiatry & Neurology Neurology | DX: G40.909 Epilepsy, unspecified, not intractable, without status epilepticus (principal); R94.02 Abnormal brain scan | CPT/HCPCS: 99222 ==

== ENCOUNTER 2024-05-12 11:57 | Emergency (ER) | payer OTHER, SELFPAY ==
--- NOTE | ~2024-05-12 | XR_ITS ---
EXAMINATION: XR CHEST CLINICAL INFORMATION: Fall. COMPARISON: Chest radiograph dated 03/03/2024. TECHNIQUE: Frontal view of the chest was obtained. FINDINGS: The heart remains mildly enlarged. There is no consolidation. No large pleural effusion. No pneumothorax. No acute osseous abnormality. XR/XR chest 1V IMPRESSION: Stable, mild cardiomegaly. The lungs are clear.
--- NOTE | ~2024-05-12 | CT_ITS ---
EXAMINATION: CT HEAD WITHOUT CONTRAST CT CERVICAL SPINE WITHOUT CONTRAST CLINICAL INFORMATION: 69-year-old female status post head and neck trauma COMPARISON: 04/02/2024 TECHNIQUE: CT of the head and cervical spine were performed without intravenous contrast. Multiplanar reformats were rendered and reviewed. This CT examination was performed using dose optimization techniques as appropriate, variously including the following: *Automated exposure control *Adjustment of mA and/or kV according to patient size (this includes techniques or standardized protocols for targeted exams where dose is matched to indication/reason for exam; i.e. extremities or head) *Use of iterative reconstruction technique DLP: 452 mGy-cm for neck and 719 mGy-cm for brain FINDINGS: CT head: No intracranial hemorrhage, large infarction, or mass lesion is seen. No extra-axial collection is appreciated. The ventricles are normal in size and configuration without evidence of hydrocephalus. The visualized paranasal sinuses are well aerated and mastoid air cells are clear on the left and partially opacified on the right . CT cervical spine: There is straightening of cervical lordosis with stable since previous examination grade 1 anterior listhesis of C3 over C4 C4 over C5 and C5 over C6 and narrowing cough C5-C6 and C6-C7 intervertebral disc space with findings on stable, chronic and related to the degenerative spondylosis. The craniocervical junction is normal. The vertebral body heights are maintained. No cervical spine fracture is seen. Soft tissues unremarkable. The partially imaged lung apices are clear. CT/CT cervical spine wo IV con IMPRESSION: CT HEAD: No acute intracranial finding. Chronic changes in the right mastoids CT CERVICAL SPINE: 1. No cervical spine fracture or traumatic malalignment identified. 2. Degenerative changes in the cervical spine with straightening of cervical lordosis and grade 1 anterolisthesis of C3 over C4, C4 over C5 and C5 over C6 and narrowing of C5-C6 and C6-C7 intervertebral disc space with findings on stable since previous examination.
--- NOTE | ~2024-05-12 | XR_ITS ---
EXAMINATION: XR SHOULDER, RIGHT CLINICAL INFORMATION: Pain after fall COMPARISON: Right shoulder 04/10/2024 TECHNIQUE: Three views of the right shoulder. FINDINGS: Mild degenerative changes seen at the glenohumeral joint with moderate degenerative changes seen at the AC joint. No fractures or dislocations. The visualized ribs appear normal. No rotator cuff calcification. XR/XR shoulder RT min 2V IMPRESSION: Degenerative changes as described above. No acute fractures or dislocations.
[2024-05-12 12:08] VITALS: BP 138/64; BP 143/49; PULSE 82; PULSE 84; RESP 18; TEMP 36.7; O2SAT 96; O2SAT 97; BMI 32.1
--- NOTE | 2024-05-12 12:15 | ECG_ITS ---
Test Reason : CP Blood Pressure : / mmHG Vent. Rate : 078 BPM Atrial Rate : 078 BPM P-R Int : 192 ms QRS Dur : 080 ms QT Int : 370 ms P-R-T Axes : 028 -04 026 degrees QTc Int : 421 ms Normal sinus rhythm Low voltage QRS Borderline ECG When compared with ECG of 10-APR-2024 22:17, No significant change was found Referred By: Stephanie Caballero Electronically Signed By:Michael Cano
--- NOTE | 2024-05-12 12:23 | PC.NURSE ---
From home after being found by neighbor on the floor. Last known well around 9pm last night when she talked to her family. Reports right sided shoulder and pain to back of head. Daughter at bedside stating patient with memory issues and also had a fall last night. C collar in place, brought to ct at this time
--- NOTE | 2024-05-12 12:31 | ED_ITS ---
HPI - Fall General Chief Complaint: Fall Stated Complaint: FALL,LAC HEAD, RUE PAIN,,DIZZY,UNK DOWNTIME Time Seen by Provider: 05/12/24 12:03 Source: patient, family, EMS and old records reviewed Mode of arrival: EMS Limitations: other (poor historian) History of Present Illness ED Provider: ABDULLAHI HPI Narrative: 69 yo female with PMH of frequent fall, GERD, seizures, JOSÉ, anemia, HTN, asthma, HLD, IDD, CVA, brain aneurysm, neurocognitive disorder, recent TIA work up for R sided deficits but MRI negative was reported to have a fall by neighbor the patient doesn't remember much and cannot provide history she has headache and R shoulder pain. Daughter did not speak to her yesterday and is not aware of anyone speaking to her yesterday though EMS stated a family member called her at 9pm. The patient c/o head and R shoulder pain only. She has hx of confusion and falls per daughter. Not on blood thinners. This has happened before per daughter. MD complaint: fall Onset (ago): unknown Fall from: standing Fall witnessed: no Place fall occurred: home Loss of consciousness: unsure Prolonged down time: unclear Symptoms prior to fall: none Location of injury: head Location of injury - extremities: right: shoulder Severity: moderate Quality: dull and aching Associated symptoms (after fall): headache Related Data Home Medications ?Medication ?Instructions ?Recorded ?Confirmed albuterol sulfate 90 mcg/actuation 2 puff inhalation Q4H PRN wheezing 09/27/22 04/11/24 aerosol inhaler blood sugar diagnostic ([employer] JapanTouch #10 ea 09/27/22 10/20/23 Ultra Test strips) lancets 33 gauge (OneTouch Delica #100 ea 09/27/22 10/20/23 Plus Lancet) ujrdefffsx-pzfgqnmucrkjy-ovywrcfw 1 tab PO Q6H PRN Headache 10/17/23 04/11/24 50 mg-325 mg-40 mg tablet docusate sodium 100 mg capsule 100 mg PO BID 11/16/23 04/11/24 ondansetron HCl 4 mg tablet 4 mg PO Q8H PRN nausea 11/16/23 04/11/24 pantoprazole 40 mg tablet,delayed 40 mg PO DAILY@0630 11/16/23 04/11/24 release sennosides 8.6 mg tablet (senna) 8.6 mg PO DAILY 11/16/23 04/11/24 amitriptyline 150 mg tablet 150 mg PO BEDTIME 04/11/24 04/11/24 amitriptyline 50 mg tablet 50 mg PO BEDTIME 04/11/24 04/11/24 clonazepam 0.5 mg tablet 0.5 mg PO BID PRN Anxiety 04/11/24 04/11/24 duloxetine 20 mg capsule,delayed 20 mg PO DAILY 04/11/24 04/11/24 release duloxetine 60 mg capsule,delayed 60 mg PO DAILY 04/11/24 04/11/24 release fluticasone fur. 100 mcg-umeclid 1 ea inhalation DAILY 04/11/24 04/11/24 62.5 mcg-vilant 25 mcg inhalat.powder (Trelegy Ellipta) gabapentin 300 mg capsule 300 mg PO TID 04/11/24 04/11/24 insulin glargine 100 unit/mL 35 unit subcut BEDTIME 04/11/24 04/11/24 subcutaneous solution (Lantus U-100 Insulin) naproxen 500 mg tablet 500 mg PO BID 04/11/24 04/11/24 valproic acid (as sodium salt) 250 500 mg PO BEDTIME 04/11/24 04/11/24 mg/5 mL oral solution zolpidem 10 mg tablet 10 mg PO BEDTIME 04/11/24 04/11/24 Previous Rx's ?Medication ?Instructions ?Recorded aspirin 81 mg tablet,delayed 81 mg PO DAILY #30 tabs 10/29/23 release atorvastatin 80 mg tablet 80 mg PO BEDTIME #0 tabs 10/29/23 fluticasone propionate 50 1 spray intranasal DAILY #0 grams 10/29/23 mcg/actuation nasal spray,suspension loratadine 10 mg tablet 10 mg PO DAILY #0 tabs 10/29/23 magnesium oxide 400 mg (241.3 mg 400 mg PO BEDTIME #30 tabs 10/29/23 magnesium) tablet metformin 500 mg tablet,extended 500 mg PO BID #60 tabs 10/29/23 release 24 hr metoprolol succinate 25 mg 25 mg PO DAILY #0 tabs 10/29/23 tablet,extended release 24 hr montelukast 10 mg tablet 10 mg PO BEDTIME #30 tabs 10/29/23 pyridoxine (vitamin B6) 50 mg 50 mg PO DAILY #30 tabs 10/29/23 tablet Allergies Allergy/AdvReac Type Severity Reaction Status Date / Time Penicillins Allergy Mild Swelling Verified 05/12/24 12:11 Review of Systems 2 Review of Systems: Constitutional : No Fever, No Chills, No Fatigue ENT/Mouth : No sore throat, No Rhinorrhea Eyes: No Eye Pain, No Swelling, No Redness Cardiovascular : No Chest Pain, No SOB, No Dyspnea on Exertion Respiratory : No Cough, No Sputum Gastrointestinal : No Nausea, No Vomiting, No Diarrhea, No abdominal Pain Genitourinary : No Dysuria, No Urinary Frequency, No Hematuria, Musculoskeletal : pos joint pain, No Myalgias, No Joint Swelling Skin : No Skin Lesions, No rash, pos skin laceration Neuro : No Weakness, No Numbness, No Dizziness, positive Headache Psych : No Anxiety/Panic, No Depression Heme/Lymph: No Bruising, No Bleeding,No Lymphadenopathy Endocrine : No Polyuria, No Polydipsia All other systems reviewed and are negative PMFSH Past Medical History Attestation statement: The following information was validated with the patient. Source: old records reviewed Medical History Seizure disorder JOSÉ (obstructive sleep apnea) Delusions Major neurocognitive disorder Chest pain Dyspnea on exertion COVID-19 GERD (gastroesophageal reflux disease) DJD (degenerative joint disease) COPD (chronic obstructive pulmonary disease) Bipolar disorder CTS (carpal tunnel syndrome) Hx of rheumatoid arthritis Diabetic neuropathy Urinary incontinence Aneurysm of middle cerebral artery Pulmonary nodules CHF (congestive heart failure) Palpitations Migraine History of COVID-19 Mild aortic stenosis Asthma Insulin dependent type 2 diabetes mellitus Mixed hyperlipidemia Mood disorder Essential hypertension Surgical History No pertinent past surgical history Hx of cataract surgery H/O: hysterectomy Hx of cholecystectomy History of carpal tunnel release Family History Family History Mother Myocardial infarction Father Myocardial infarction Sister Breast cancer Brother Spleen cancer Social History Social History Household Members: None Housing: Apartment Do you presently have visiting nurse or other home services: Yes (EXTENSION PROFESSOR during the day, none at night) Unable to assess alcohol history related to: Unknown Alcohol intake: never Comment: report given by Cleo menendez Patient Tobacco Use Status: Never used Tobacco Tobacco use type: Cigarette Cigarette Packs Per Day: 0.2 Cigarettes Per Day: 4.0 Years Smoked: [id number] Smoked in Last 30 Days: No e-Cigarette/Vaping Use: Never Used Second Hand Smoke Exposure: No Use of substances other than those prescribed or required for medical reasons: No Advance Directives: Yes Advance Directives on File: Yes Advance Directives Date on File: 11/20/23 service: No Current occupational status: retired Sexual orientation: Straight/Heterosexual Physical Exam 2 Vital Signs: Vital Signs: Last Vital Signs Temp 98.4 F 05/12/24 16:00 Pulse 73 05/12/24 16:00 Resp 18 05/12/24 16:00 BP 141/41 H 05/12/24 16:00 Pulse Ox 97 05/12/24 16:00 O2 Del Method Room Air 05/12/24 16:00 BMI result Body Mass Index 32.1 Appearance: Alert. Oriented X2. confused mild acute distress. her clothes are clean not soiled with urine or feces Eyes: Pupils equal, round and reactive to light. ENT: Pharynx normal. posterior R scalp linear laceration superficial 3cm Neck: Normal inspection. Neck supple. CVS: Normal heart rate and rhythm. Pulses normal. Respiratory: No respiratory distress. Breath sounds normal. Abdomen: Soft and nontender. Skin: Skin warm and dry. Normal skin color. Normal skin turgor. Extremities: No lower extremity edema. R shoulder ttp distal NV intact Neuro: Oriented X 2. No motor deficit. No sensory deficit. Medications Administered Discontinued Medications Generic Name Dose Route Start Last Admin Trade Name Juan PRN Reason Stop Dose Admin Acetaminophen 650 mg 05/12/24 12:17 05/12/24 12:59 Acetaminophen 325 Mg Tablet PO 05/12/24 12:18 650 mg ONCE ONE Administration Lidocaine HCl 1 appl 05/12/24 12:37 05/12/24 15:56 Lidocaine 4 % Cream Kit TOPICAL 05/12/24 12:38 1 appl ONCE ONE Administration Protocol Procedures Laceration Laceration 1: Site: scalp Size (cm): 3 Description: linear Depth: simple, single layer Local Anesthetic: other anesthetic Pre-repair: wound explored, irrigated extensively and deep structures intact Skin layer closed with: other (staple 2) Medical Decision Making Medical Decision Making MDM Narrative: 69 yo female with PMH of frequent fall, GERD, seizures, JOSÉ, anemia, HTN, asthma, HLD, IDD, CVA, brain aneurysm, neurocognitive disorder, recent TIA work up for R sided deficits but MRI negative - she comes in with unwitnessed fall is c/o R shoulder pain, head laceration. She is tired and alert and oriented x 2. She is not sure what happened. They note she was last seen well yesterday. Will need labs, UA, CXR and R shoulder xray, repair of head laceration, CT head/cspine. Work up for toxic and metabolic encephalopathy if work up is negative I am going to involve PT/CM as it seems she is was not seen for a while daughter did not talk to her yesterday Differential Diagnosis Differential Diagnoses: The differential diagnosis associated with the presentation includes unsteady gait, falls, head injury anemia, dehydration, head injury Admission/Observation Consideration of admission/observation: Escalation of care including admission/observation considered physician observation started at 334pm pending PT/CM Consult Healthcare Provider Management of the patient was discussed with: Outreach Assistant Lab Data MDM Lab Attestation statement: I reviewed the patient's lab results. hemoglobin and trop at baseline 05/12/24 12:47 05/12/24 12:47 Labs: Lab Results 05/12/24 05/12/24 05/12/24 Range/Units 12:47 12:50 12:57 WBC 6.4 (4.8-10.8) X10*3/uL RBC 3.77 L (4.20-5.50) X10*6/uL Hgb 9.7 L (12.0-16.0) g/dl Hct 31.6 L (37.0-47.0) % MCV 83.8 (80.0-98.0) fL MCH 25.7 L (27.0-33.0) pg MCHC 30.7 L (31.0-35.0) g/dl RDW 18.0 H (11.0-16.0) % Plt Count 230 (160-400) X10*3/uL MPV 10.6 (9.4-12.3) fL Immature Gran % (Auto) 0.2 (0.0-0.4) % Neut % (Auto) 64.7 (45-73) % Lymph % (Auto) 19.6 L (20-40) % [place] % (Auto) 10.3 (2-11) % Eos % (Auto) 4.7 H (0-4) % Baso % (Auto) 0.5 (0-2) % Lymph # (Auto) 1.3 (1.2-4.9) X10*3/uL [place] # (Auto) 0.7 (0.1-1.2) X10*3/uL Eos # (Auto) 0.3 (0.0-0.4) X10*3/uL Baso # (Auto) 0.0 (0.0-0.2) X10*3/uL Abs Immat Gran (auto) 0.01 (0.00-0.03) X10*3/uL Absolute Neuts (auto) 4.2 (2.0-8.3) x10*3/uL Absolute Nucleated RBC 0.000 (0.0-0.012) X10*3/uL Nucleated RBC % (auto) 0.0 (0.0-0.2) /100WBC VBG pH 7.39 (7.32-7.43) VBG pCO2 52 mmHg VBG pO2 56 mmHg VBG HCO3 32 H (22-26) mmol/L VBG O2 Saturation 84.0 % VBG Base Excess 6.2 mmol/L Sodium 141 (135-145) mmol/L Potassium 4.3 (3.3-5.1) mmol/L Chloride 106 (96-108) mmol/L Carbon Dioxide 27 (22-29) mmol/L Anion Gap 12 (12-20) BUN 25 H (9-16) mg/dL Creatinine 0.71 (0.5-1.4) mg/dL Estim Creat Clear Calc 80.6 Estimated GFR > 60 Random Glucose 156 H (60-115) mg/dL Calcium 9.4 (8.4-10.2) mg/dL Magnesium 2.1 (1.6-2.6) mg/dL Total Bilirubin 0.1 (0.0-1.0) mg/dL Direct Bilirubin < 0.2 (0.0-0.5) mg/dL AST 17 (5-31) U/L ALT 13 (0-31) U/L Alkaline Phosphatase 72 (39-117) U/L Total Creatine Kinase 79 (26-140) U/L Troponin I High Sens 24.3 H (<3.5-17.0) ng/L Total Protein 7.3 (6.5-8.0) g/dL Albumin 3.8 (3.5-5.0) g/dL Lipase 21 (8-78) U/L Urine Color Yellow Urine Appearance Clear Urine pH 5.5 (5.0-9.0) Ur Specific Pearson 1.020 (1.005-1.025) Urine Protein Negative (Neg-Trace) mg/dL Urine Glucose (UA) Negative (Negative) mg/dL Urine Ketones Negative (Negative) mg/dL Urine Blood Negative (Negative) Urine Nitrite Negative (Negative) Ur Leukocyte Esterase Negative (Negative) Valproic Acid < 12.5 L (50.0-100.0) mcg/mL Influenza Type A (PCR) NEGATIVE (Negative) Influenza Type B (PCR) NEGATIVE (Negative) RSV RNA Qual (PCR) NEGATIVE (Negative) SARS-CoV-2 RNA (RT-PCR) NEGATIVE (Negative) Independent Interpretation I performed an independent interpretation of an: EKG, Plain X-Ray (no trauma) and CT Scan (normal ) Interpretation: Rate: 78 Rhythm: NSR [place]: left Normal P waves. Normal MEENA. Normal QRS complex. ST T wave : normal no DORIAN, t wave inversion V1 qTC: 421 prior studies: The study has been interpreted contemporaneously by me. . Radiology Impression Discussion of test interpretation with radiology: I have reviewed the radiologist's reading. Independent Historian Clinical information obtained from an independent historian. History obtained from or confirmed by: EMS and Other (daughter) External Record Review External record reviewed: Inpatient record Discharge Plan Discharge Clinical Impression: Falls frequently Laceration of scalp Qualifiers: Encounter type: initial encounter Qualified Code(s): S01.01XA - Laceration without foreign body of scalp, initial encounter Patient Disposition: Still a Patient Instructions: Laceration (ED), Staple Care (ED) Additional Instructions: okay to shower with gilson gilson out in 10 days from 05/12 Prescriptions: No Action mzijilceev-aduffnzibropx-jkmd 50-325-40 mg tablet 1 tab PO Q6H PRN (Reason: Headache) atorvastatin 80 mg Tablet 80 mg PO BEDTIME Qty: 0 0RF aspirin 81 mg Tablet,Delayed Release (Dr/Ec) 81 mg PO DAILY Qty: 30 0RF magnesium oxide 400 mg (241.3 mg magnesium) Tablet 400 mg PO BEDTIME Qty: 30 0RF metoprolol succinate 25 mg Tablet Extended Release 24 Hr 25 mg PO DAILY Qty: 0 0RF Protocol: Hold for SBP/HR < HOLD for SBP < : 90 HOLD for HR < : 60 fluticasone propionate 50 mcg/actuation [place],Suspension 1 spray intranasal DAILY Qty: 0 0RF metformin 500 mg Tablet Extended Release 24 Hr 500 mg PO BID Qty: 60 0RF loratadine 10 mg Tablet 10 mg PO DAILY Qty: 0 0RF pyridoxine (vitamin B6) 50 mg Tablet 50 mg PO DAILY Qty: 30 0RF montelukast 10 mg Tablet 10 mg PO BEDTIME Qty: 30 0RF sennosides [senna] 8.6 mg tablet 8.6 mg PO DAILY ondansetron HCl 4 mg tablet 4 mg PO Q8H PRN (Reason: nausea) pantoprazole 40 mg tablet,delayed release (DR/EC) 40 mg PO DAILY@0630 docusate sodium 100 mg capsule 100 mg PO BID amitriptyline 150 mg tablet 150 mg PO BEDTIME Rx Instructions: with 50 mg clonazepam 0.5 mg tablet 0.5 mg PO BID PRN (Reason: Anxiety) valproic acid (as sodium salt) 250 mg/5 mL solution 500 mg PO BEDTIME zolpidem 10 mg tablet 10 mg PO BEDTIME naproxen 500 mg tablet 500 mg PO BID duloxetine 20 mg capsule,delayed release(DR/EC) 20 mg PO DAILY Rx Instructions: with 60 mg Trelegy Ellipta 100-62.5-25 mcg blister with device 1 ea INHALATION DAILY amitriptyline 50 mg tablet 50 mg PO BEDTIME Rx Instructions: with 150 mg gabapentin 300 mg capsule 300 mg PO TID duloxetine 60 mg capsule,delayed release(DR/EC) 60 mg PO DAILY Rx Instructions: with 20 mg insulin glargine [Lantus U-100 Insulin] 100 unit/mL solution 35 unit subcut BEDTIME (DME) lancets [OneTouch Delica Plus Lancet] 33 gauge misc See Rx Instructions .ROUTE BID Qty: 100 Rx Instructions: As directed albuterol sulfate 90 mcg/actuation HFA aerosol inhaler 2 puff inhalation Q4H PRN (Reason: wheezing) (DME) OneTouch Ultra Test Strip See Rx Instructions .ROUTE BID Qty: 10 Rx Instructions: As directed Print Language: St Helenian
[2024-05-12 12:54] LABS: MANUAL DIFF FLAG NO
[2024-05-12 12:57] LABS: Basophils Percent Auto 0.5 % (0-2); Eosinophils Absolute Auto 0.3 X10*3/uL (0.0-0.4); Eosinophils Percent Auto 4.7 % (0-4); Hematocrit 31.6 % (37.0-47.0); Hemoglobin 9.7 g/dl (12.0-16.0); Imm Gran Abs Auto 0.01 X10*3/uL (0.00-0.03); Imm Gran Pct Auto 0.2 % (0.0-0.4); Lymphocytes Absolute Auto 1.3 X10*3/uL (1.2-4.9); Lymphocytes Percent Auto 19.6 % (20-40); Mean Corpuscular HGB Conc 30.7 g/dl (31.0-35.0); Mean Corpuscular Hemoglobin 25.7 pg (27.0-33.0); Mean Corpuscular Volume 83.8 fL (80.0-98.0); Mean Platelet Volume 10.6 fL (9.4-12.3); Monocytes Absolute Auto 0.7 X10*3/uL (0.1-1.2); Monocytes Percent Auto 10.3 % (2-11); Neutrophils Absolute Auto 4.2 x10*3/uL (2.0-8.3); Neutrophils Percent Auto 64.7 % (45-73); Platelet Count 230 X10*3/uL (160-400); Red Blood Count 3.77 X10*6/uL (4.20-5.50); White Blood Count 6.4 X10*3/uL (4.8-10.8)
[2024-05-12 12:58] LABS: Venous Blood Gas Refer to POC result
[2024-05-12 12:58] LABS: VBG Base Excess 6.2 mmol/L; VBG HCO3 32 mmol/L (22-26); VBG pCO2 52 mmHg; VBG pH 7.39 (7.32-7.43); VBG pO2 56 mmHg
[2024-05-12] MEDS: Acetaminophen 325 MG TABLET 650 MG PO (12:59)
[2024-05-12 13:03] LABS: Appearance Urine Clear; Color Urine Yellow; Glucose Urine UA Negative (Negative); Leukocyte Esterase Urine Negative (Negative); Nitrite Urine Negative (Negative); PH 5.5 (5.0-9.0); Urine Blood Negative (Negative); Urine Ketones Negative (Negative); Urine Protein Negative (Neg-Trace)
[2024-05-12 13:16] LABS: Troponin-I High Sensitivity 24.3 ng/L (<3.5-17.0)
[2024-05-12 13:33] LABS: Alanine Aminotransferase 13 U/L (0-31); Albumin Level 3.8 g/dL (3.5-5.0); Alkaline Phosphatase 72 U/L (39-117); Anion Gap 12 (12-20); Aspartate Amino Transferase 17 U/L (5-31); Bilirubin Direct < 0.2 mg/dL (0.0-0.5); Bilirubin Total 0.1 mg/dL (0.0-1.0); Blood Urea Nitrogen 25 mg/dL (9-16); Calcium 9.4 mg/dL (8.4-10.2); Carbon Dioxide 27 mmol/L (22-29); Chloride 106 mmol/L (96-108); Creatinine Clr Calc Pharmacy 80.6; Estimated Glomerular Filt Rate > 60; Glucose Random 156 mg/dL (60-115); Lipase 21 U/L (8-78); Magnesium 2.1 mg/dL (1.6-2.6); Potassium 4.3 mmol/L (3.3-5.1); Sodium 141 mmol/L (135-145); Total Protein 7.3 g/dL (6.5-8.0)
[2024-05-12 13:39] LABS: Valproate < 12.5 mcg/mL (50.0-100.0)
[2024-05-12 13:44] LABS: Influenza A PCR NEGATIVE (Negative); Influenza B PCR NEGATIVE (Negative); Resp Syncy Virus RNA Qual PCR NEGATIVE (Negative); SARS COV2 PCR INHOUSE NEGATIVE (Negative)
--- NOTE | 2024-05-12 14:34 | MHC.EDTECH ---
This tech assisted RN with placement of a straight catheter and obtained urine.
[2024-05-12 14:41] VITALS: BP 156/103; PULSE 85; RESP 14; TEMP 36.8; O2SAT 96
[2024-05-12] MEDS: Lidocaine 4 % Cream KIT 1 APPL TOPICAL (15:56)
[2024-05-12 16:00] VITALS: BP 141/41; PULSE 73; RESP 18; TEMP 36.9; O2SAT 97
--- NOTE | 2024-05-12 16:30 | MHC.EDTECH ---
patient was PO challenged with juice and crackers. patient was sufficient in swallowing. RN aware
--- NOTE | 2024-05-12 16:39 | MHC.EDTECH ---
pt was 2 assisted to bathroom with help from rn. pt assisted back to bed, call godfrey within reach.
[2024-05-12 18:41] VITALS: BP 167/59; PULSE 82; RESP 16; TEMP 36.9; O2SAT 94
--- NOTE | 2024-05-12 19:23 | PC.NURSE ---
assumed care of pt at 1900 - pt resting comfortably on stretcher in no apparent distress, changed over into hospital attire. pt is a PT/CM bed search, will call report for pt to go to the overflow unit. pt given dinner tray. call godfrey within reach, plan of care ongoing.
[2024-05-12 19:30] VITALS: BP 146/66; PULSE 70; RESP 18; TEMP 36.6; O2SAT 97
--- NOTE | 2024-05-12 19:33 | MHC.EDTECH ---
This tech took over care of patient at 1900,patient was changed into hospital attire,belongings list completed and copy placed in chart. Dinner tray given to patient at this time,call godfrey in reach
--- NOTE | 2024-05-12 20:14 | PC.NURSE ---
report given to bharath jones
[2024-05-12 21:47] LABS: Glucose, Whole Blood 111 mg/dL (60-115)
[2024-05-12 21:51] VITALS: BP 158/71; PULSE 71; RESP 18; TEMP 37; O2SAT 98
--- NOTE | 2024-05-12 22:53 | MHC.CM.ED ---
CM met with patient at the request of Dr. Caballero. Pt is Frisian speaking. metal weather stripper used for encounter. Pt is A&Ox3, but somewhat poor historian. Pt told CM she had services in her home. Family told CM those services were completed and they have been trying to get home services from [facility]. Pt lvies alone. Uses a rollator and a CPAP. PCP is Dr. oHnorio Arzola. HCP is on file. HCP #1 Tracy Keating (sister) [phone]. Called at patient request, but unable to leave a message. HCP#2/daughter Celina Chen ([phone]) tells CM that her mother does not have services and has been unable to obtain services from [facility]. CM will call [facility] in the morning and request Data Center Consultant call patient for services assessment. Pt is agreeable to PT and feels she needs help, but does not want to go to a facility, wants home PT. Daughter feels she needs inpatient therapy, but tells CM it is up to her mother. PT will see patient in the morning. CM will place referrals locally to facilities that accept [facility]. CM will follow for safe discharge plan.
[2024-05-12] MEDS: Atorvastatin Calcium 80 MG TABLET PO (22:55)
[2024-05-12] MEDS: Insulin Glargine,Hum.rec.anlog 100 UNIT/ML 10 ML VIAL 35 UNIT SUBCUT (22:56)
[2024-05-12] MEDS: NaPROXEN 500 MG TABLET PO (22:56)
[2024-05-12] MEDS: Montelukast Sodium 10 MG TABLET PO (22:56)
[2024-05-12] MEDS: Magnesium Oxide 400 MG TABLET PO (22:56)
[2024-05-12] MEDS: metFORMIN HCl ER 500 MG TAB.ER.24H PO (22:56)
[2024-05-12] MEDS: Zolpidem Tartrate 5 MG TABLET 10 MG PO (22:56)
[2024-05-13 00:19] VITALS: BP 157/77; PULSE 77; RESP 16; TEMP 36.8; O2SAT 97
[2024-05-13] MEDS: Omeprazole 20 MG CAPSULE.DR PO (05:57)
[2024-05-13 06:09] VITALS: BP 161/69; PULSE 72; RESP 16; TEMP 36.6; O2SAT 96
--- NOTE | 2024-05-13 06:10 | MHC.EDTECH ---
Patient was awake most of the night ,void once ,fell asleep around 0430 am ,Call godfrey within Pt reach ,Vitals taken .
[2024-05-13 07:52] VITALS: BP 161/69; PULSE 72; O2SAT 96
--- NOTE | 2024-05-13 07:55 | PHA.MEDREC ---
Pharmacy Consult ? Medication Reconciliation Pharmacy has completed the medication reconciliation. Patiently discharged 04/12/24; per last med rec by pharmacy both patient and patient's family unsure of home medications, aside from patient knowing she takes 35 units of lantus. Utilized discharge instructions and matched with claim history. No history of albuterol inhaler, aspirin 81mg last filled 12/03/23 x 81 day supply, duloxetine 60mg last filled 01/22/24 x 30 day supply; fluticasone propionate 50mcg nasal spray has no cliam history but may be otc, vitamin B6 50mg last filled 10/29/23 x 30 day supply, and Trelegy Ellipta inhaler last filled 12/16/23 x 30 day supply. All of these specifically listed medications were continued per discharge summary but left off of current med rec due to no recent fills. Provider will be made aware
[2024-05-13 09:23] VITALS: BP 157/52
[2024-05-13] MEDS: metFORMIN HCl ER 500 MG TAB.ER.24H PO (09:23)
[2024-05-13] MEDS: NaPROXEN 500 MG TABLET PO (09:23)
[2024-05-13] MEDS: Loratadine 10 MG TABLET PO (09:23)
[2024-05-13] MEDS: DULoxetine HCl 20 MG CAPSULE.DR PO (10:01)
--- NOTE | 2024-05-13 10:45 | MHC.CM.ED ---
Patient remains in ER overflow. Physical therapy eval completed. Home with services recommended. Patient is active with [facility]. Per Maricarmen at [facility], ok to refer out for SN and PT. Referral broadcasted in [employer]. [facility] is able to accept patient. Spoke with patient's daughter, [facility], via telephone at [phone]. [facility] will transport patient home. Patient, Daniel VERNON and Soha PERALTA aware.
[2024-05-13 11:39] VITALS: BP 157/52; PULSE 74; RESP 18; TEMP 36.6; O2SAT 96
== END 2024-05-13 11:44 | disposition still patient (30) ==
PROVIDERS: Emergency Provider Emergency Medicine; PCP Internal Medicine
DX: S01.01XA Laceration without foreign body of scalp, initial encounter (principal); R26.2 Difficulty in walking, not elsewhere classified; R51.9 Headache, unspecified; R07.89 Other chest pain; R42 Dizziness and giddiness; I10 Essential (primary) hypertension; M25.511 Pain in right shoulder; M54.2 Cervicalgia; W19.XXXA Unspecified fall, initial encounter; Y93.89 Activity, other specified; Y92.89 Other specified places as the place of occurrence of the external cause; Y99.8 Other external cause status; Z03.818 Encounter for observation for suspected exposure to other biological agents ruled out; Z79.899 Other long term (current) drug therapy
CPT/HCPCS: 0241U; 36415; 70450; 71045; 72125; 73030; 80048; 80076; 80164; 81003; 82550; 82803; 82947; 83690; 83735; 84484; 85025; 93005; 97162; 99285

== ENCOUNTER → 2024-05-12 12:15 | Outpatient (BNV) | payer OTHER, SELFPAY | PROVIDERS: Emergency Provider Emergency Medicine; Visit Provider Internal Medicine Cardiovascular Disease | DX: R07.9 Chest pain, unspecified (principal) | CPT/HCPCS: 93010 ==

== ENCOUNTER 2024-07-26 18:27 | Emergency (ER) | payer OTHER, SELFPAY ==
--- NOTE | ~2024-07-26 | XR_ITS ---
EXAMINATION: XR SHOULDER, LEFT CLINICAL INFORMATION: Fall, pain. COMPARISON: Chest radiograph 05/12/2024. Radiographs left shoulder 03/03/2024. TECHNIQUE: Four views of the left shoulder. FINDINGS: Chronic deformity of the left posterolateral third rib. No acute fractures or dislocation. Mavk-lh-zoawlzsu degenerative osteoarthritis of the left shoulder. Nonspecific soft tissue thickening along the lateral shoulder/proximal arm. XR/XR shoulder LT min 2V IMPRESSION: 1. No acute fractures or dislocation. 2. Nonspecific soft tissue swelling. 3. Chronic deformity of the left posterolateral third rib. Electronically signed by: Coleen Gonzalez MD 07/26/2024 08:44 PM EDT
--- NOTE | ~2024-07-26 | CT_ITS ---
EXAMINATION: CT HEAD WITHOUT CONTRAST CT CERVICAL SPINE WITHOUT CONTRAST CLINICAL INFORMATION: Fall. COMPARISON: CT head from 05/12/2024. TECHNIQUE: Contiguous axial imaging was performed from the skull base to vertex without intravenous administration of contrast. Contiguous axial imaging was performed from the upper chest through the skull base without intravenous administration of contrast. Coronal and sagittal reformats were obtained at the acquisition workstation. This CT examination was performed using dose optimization techniques as appropriate, variously including the following: *Automated exposure control. *Adjustment of mA and/or kV according to patient size (this includes techniques or standardized protocols for targeted exams where dose is matched to indication/reason for exam; i.e. extremities or head). *Use of iterative reconstruction technique. DLP: 1465 mGy-cm FINDINGS: Head: There is no evidence of acute intracranial hemorrhage or edematous territorial infarction. Oneill-white matter differentiation is preserved. A few foci of hypoattenuation in the periventricular and deep white matter are consistent with mild microangiopathy. Proportional prominence of the ventricles and sulcal spaces without evidence of obstructive hydrocephalus. No abnormal mass effect or midline shift. No extra-axial fluid collections. No acute soft tissue or osseous abnormalities. Mild mucosal thickening of the paranasal sinuses. The mastoid air cells and middle ear cavities are clear. Bilateral lens extractions. Cervical Spine: The atlantooccipital and atlantoaxial articulations remain well aligned. Moderate degenerative arthropathy of the atlantodental articulation. Straightening of the normal cervical lordosis. Moderate degenerative stepwise anterolistheses of C3-C6. Otherwise, there is anatomic alignment of the vertebral bodies and posterior elements. No evidence of acute fracture or subluxation. The vertebral body heights are maintained. Advanced degenerative disc disease from C5-C7. Mild to moderate degenerative disc disease at all additional levels. Facet and uncovertebral joint arthropathy leads to osseous encroachment on the neural foramina from C2-C4. There is no prevertebral soft tissue swelling. The thyroid gland and remaining cervical soft tissues are within normal limits. The lung apices demonstrate no abnormalities. CT/CT cervical spine wo IV con IMPRESSION: 1. No evidence of acute intracranial hemorrhage or edematous territorial infarction. Mild underlying microangiopathy and generalized cerebral volume loss. 2. No evidence of acute fracture or traumatic subluxation of the cervical spine. Moderate multilevel degenerative spondyloarthropathy of the cervical spine. Electronically signed by: Marco A Garcia DO 07/26/2024 10:31 PM EDT RP
[2024-07-26 18:37] VITALS: BP 133/62; PULSE 84; RESP 18; TEMP 36.8; O2SAT 94; BMI 69.4
--- NOTE | 2024-07-26 19:51 | ECG_ITS ---
Test Reason : SYNCOPE Blood Pressure : / mmHG Vent. Rate : 074 BPM Atrial Rate : 074 BPM P-R Int : 188 ms QRS Dur : 094 ms QT Int : 374 ms P-R-T Axes : 037 -05 037 degrees QTc Int : 415 ms Normal sinus rhythm Normal ECG When compared with ECG of 12-MAY-2024 12:12, No significant change was found Referred By: Meagan Hyatt Electronically Signed By:GINGER MARLEY
--- NOTE | 2024-07-26 19:54 | PC.NURSE ---
pt taken to radiology
[2024-07-26 20:53] LABS: Appearance Urine Clear; Color Urine Yellow; Glucose Urine UA Negative (Negative); Leukocyte Esterase Urine Negative (Negative); Nitrite Urine Negative (Negative); PH 6.5 (5.0-9.0); Urine Blood Negative (Negative); Urine Ketones Negative (Negative); Urine Protein Negative (Neg-Trace)
[2024-07-26 20:53] LABS: MANUAL DIFF FLAG NO
[2024-07-26 20:54] LABS: Basophils Percent Auto 0.4 % (0-2); Eosinophils Absolute Auto 0.2 X10*3/uL (0.0-0.4); Eosinophils Percent Auto 3.6 % (0-4); Hematocrit 32.1 % (37.0-47.0); Hemoglobin 9.9 g/dl (12.0-16.0); Imm Gran Abs Auto 0.01 X10*3/uL (0.00-0.03); Imm Gran Pct Auto 0.2 % (0.0-0.4); Lymphocytes Absolute Auto 1.6 X10*3/uL (1.2-4.9); Lymphocytes Percent Auto 30.8 % (20-40); Mean Corpuscular HGB Conc 30.8 g/dl (31.0-35.0); Mean Corpuscular Hemoglobin 25.4 pg (27.0-33.0); Mean Corpuscular Volume 82.5 fL (80.0-98.0); Mean Platelet Volume 9.5 fL (9.4-12.3); Monocytes Absolute Auto 0.6 X10*3/uL (0.1-1.2); Monocytes Percent Auto 10.5 % (2-11); Neutrophils Absolute Auto 2.9 x10*3/uL (2.0-8.3); Neutrophils Percent Auto 54.5 % (45-73); Platelet Count 242 X10*3/uL (160-400); Red Blood Count 3.89 X10*6/uL (4.20-5.50); Red Cell Distribution Width 17.8 % (11.0-16.0); White Blood Count 5.3 X10*3/uL (4.8-10.8)
--- NOTE | 2024-07-26 21:01 | MHC.EDTECH ---
Walked patient to bathroom with walker
[2024-07-26 21:02] LABS: Prothrombin Time 11.2 SEC (10.9-12.4)
[2024-07-26 21:04] VITALS: BP 136/51; PULSE 77; RESP 18; TEMP 36.8; O2SAT 99
[2024-07-26 21:04] LABS: Partial Thromboplastin Time 27.7 SEC (26.0-36.8)
[2024-07-26 21:08] LABS: Alanine Aminotransferase 15 U/L (0-31); Albumin Level 3.8 g/dL (3.5-5.0); Alkaline Phosphatase 77 U/L (39-117); Anion Gap 10 (12-20); Aspartate Amino Transferase 19 U/L (5-31); Bilirubin Direct < 0.2 mg/dL (0.0-0.5); Bilirubin Total 0.2 mg/dL (0.0-1.0); Blood Urea Nitrogen 13 mg/dL (9-16); Calcium 9.1 mg/dL (8.4-10.2); Carbon Dioxide 31 mmol/L (22-29); Chloride 105 mmol/L (96-108); Creatinine Clr Calc Pharmacy 131.6; Estimated Glomerular Filt Rate > 60; Glucose Random 138 mg/dL (60-115); Magnesium 1.8 mg/dL (1.6-2.6); Potassium 4.2 mmol/L (3.3-5.1); Sodium 142 mmol/L (135-145)
--- NOTE | 2024-07-26 21:16 | ED_ITS ---
HPI - Fall General Chief Complaint: Fall Stated Complaint: FALL 5 HRS AGO,LOW BACK & WRIST PAIN Time Seen by Provider: 07/26/24 21:04 Source: patient and EMS Mode of arrival: EMS Limitations: no limitations History of Present Illness ED Provider: Dr. Floridalma Manley HPI Narrative: Patient comes to the emergency room via ambulance from [facility]. Patient states that she was walking with her [employer], when suddenly she fell. Patient states that she does not know how she fell, did not trip, then feel weak. Patient denies any previous concurrent chest pain, shortness of breath. Patient states that she landed mostly on her shoulder. People were able to get her up and patient was able to walk. However, ambulance was called. EMS reported that earlier today patient fell at 13:30. However, after speaking to the patient, patient states that she did not fall earlier today, this previous fall happened about 3 months ago. Related Data Home Medications ?Medication ?Instructions ?Recorded ?Confirmed blood sugar diagnostic (OneTouch #10 ea 09/27/22 10/20/23 Ultra Test strips) lancets 33 gauge (OneTouch Delica #100 ea 09/27/22 10/20/23 Plus Lancet) [id number] 1 tab PO Q6H PRN Headache 10/17/23 05/13/24 50 mg-325 mg-40 mg tablet docusate sodium 100 mg capsule 100 mg PO BID 11/16/23 05/13/24 ondansetron HCl 4 mg tablet 4 mg PO Q8H PRN nausea 11/16/23 05/12/24 pantoprazole 40 mg tablet,delayed 40 mg PO DAILY@0630 11/16/23 05/12/24 release sennosides 8.6 mg tablet (senna) 8.6 mg PO DAILY 11/16/23 05/13/24 amitriptyline 150 mg tablet 150 mg PO BEDTIME 04/11/24 05/13/24 amitriptyline 50 mg tablet 50 mg PO BEDTIME 04/11/24 05/13/24 clonazepam 0.5 mg tablet 0.5 mg PO BID PRN Anxiety 04/11/24 05/13/24 duloxetine 20 mg capsule,delayed 20 mg PO DAILY 04/11/24 05/12/24 release gabapentin 300 mg capsule 300 mg PO TID 04/11/24 05/13/24 insulin glargine 100 unit/mL 35 unit subcut BEDTIME 04/11/24 05/12/24 subcutaneous solution (Lantus U-100 Insulin) naproxen 500 mg tablet 500 mg PO BID 04/11/24 05/12/24 valproic acid (as sodium salt) 250 500 mg PO BEDTIME 04/11/24 05/13/24 mg/5 mL oral solution zolpidem 10 mg tablet 10 mg PO BEDTIME 04/11/24 05/12/24 Previous Rx's ?Medication ?Instructions ?Recorded atorvastatin 80 mg tablet 80 mg PO BEDTIME #0 tabs 10/29/23 loratadine 10 mg tablet 10 mg PO DAILY #0 tabs 10/29/23 magnesium oxide 400 mg (241.3 mg 400 mg PO BEDTIME #30 tabs 10/29/23 magnesium) tablet metformin 500 mg tablet,extended 500 mg PO BID #60 tabs 10/29/23 release 24 hr metoprolol succinate 25 mg 25 mg PO DAILY #0 tabs 10/29/23 tablet,extended release 24 hr montelukast 10 mg tablet 10 mg PO BEDTIME #30 tabs 10/29/23 Allergies Allergy/AdvReac Type Severity Reaction Status Date / Time Penicillins Allergy Mild Swelling Verified 07/26/24 18:43 Review of Systems 2 Review of Systems: Constitutional : No Weight loss, No Fever, No Chills, No Night Sweats, No Fatigue, No Malaise ENT/Mouth : No Hearing loss, No Ear Pain, No Nasal Congestion, No Sinus Pain, No Hoarseness, No sore throat, No Rhinorrhea, No Swallowing Difficulty Eyes: No Eye Pain, No Swelling, No Redness, No Foreign Body, No Discharge, No Vision Changes Cardiovascular : No Chest Pain, No SOB, No Dyspnea on Exertion, No Orthopnea, No Edema, No Palpitations Respiratory : No Cough, No Sputum, No Wheezing, No Smoke Exposure, No Dyspnea Gastrointestinal : No Nausea, No Vomiting, No Diarrhea, No Constipation, No abdominal Pain, No Hematochezia, No Melena Genitourinary : no irregular bleeding, No Dysuria, No Urinary Frequency, No Hematuria, No Urinary Incontinence, No Urgency, No Flank Pain, No Urinary Flow Changes, No Hesitancy Musculoskeletal : Complaining of chronic bilateral shoulder pain, No Myalgias, No Joint Swelling Skin : No Skin Lesions, No rash Neuro : No Weakness, No Numbness, No Paresthesias, No Loss of Consciousness, No Dizziness, complaining of Headache Psych : No Anxiety/Panic, No Depression, No SI/HI/AH/VH, No Social Issues, Heme/Lymph: No Bruising, No Bleeding,No Lymphadenopathy Endocrine : No Polyuria, No Polydipsia, No Temperature Intolerance PMFSH Past Medical History Medical History Seizure disorder JOSÉ (obstructive sleep apnea) Delusions Major neurocognitive disorder Chest pain Dyspnea on exertion COVID-19 GERD (gastroesophageal reflux disease) DJD (degenerative joint disease) COPD (chronic obstructive pulmonary disease) Bipolar disorder CTS (carpal tunnel syndrome) Hx of rheumatoid arthritis Diabetic neuropathy Urinary incontinence Aneurysm of middle cerebral artery Pulmonary nodules CHF (congestive heart failure) Palpitations Migraine History of COVID-19 Mild aortic stenosis Asthma Insulin dependent type 2 diabetes mellitus Mixed hyperlipidemia Mood disorder Essential hypertension Surgical History No pertinent past surgical history Hx of cataract surgery H/O: hysterectomy Hx of cholecystectomy History of carpal tunnel release Family History Family History Mother Myocardial infarction Father Myocardial infarction Sister Breast cancer Brother Spleen cancer Social History Social History Household Members: None Housing: Apartment Do you presently have visiting nurse or other home services: Yes ([employer] during the day, none at night) Unable to assess alcohol history related to: Unknown Alcohol intake: never Comment: report given by Cleo menendez Patient Tobacco Use Status: Never used Tobacco Tobacco use type: Cigarette Cigarette Packs Per Day: 0.2 Cigarettes Per Day: 4.0 Years Smoked: [id number] e-Cigarette/Vaping Use: Never Used Second Hand Smoke Exposure: No Advance Directives: Yes Advance Directives on File: Yes Advance Directives Date on File: 11/20/23 service: No Current occupational status: retired Sexual orientation: Straight/Heterosexual Physical Exam 2 Vital Signs: Vital Signs: Last Vital Signs Temp 98.3 F 07/26/24 22:43 Pulse 74 07/26/24 22:43 Resp 16 07/26/24 22:43 BP 143/57 H 07/26/24 22:43 Pulse Ox 96 07/26/24 22:43 O2 Del Method Room Air 07/26/24 22:43 BMI result Body Mass Index 69.4 Const: Other: Appearance: Alert. Oriented X3. No acute distress. Eyes: Pupils equal, round and reactive to light. ENT: Pharynx normal. Neck: Normal inspection. Neck supple. No lymph nodes noted. No crepitus CVS: Normal heart rate and rhythm. Pulses normal. Normal S1 and S2 Respiratory: No respiratory distress. Breath sounds normal. No Wheezing. No rales Abdomen: Soft and nontender. No rigidity. No distention. Skin: Skin warm and dry. Normal skin color. Normal skin turgor. Extremities: No lower extremity edema. No Lacerations. No Rash able to flex and extend wrist elbows and elevate both arms up to 180 degrees Neuro: Oriented X 3. No motor deficit. No sensory deficit. Moving all extremities. No slurred speech. CN 2 through 12 grossly intact Psych: calm, cooperative, normal affect Course Course Course Narrative: Patient's labs and imaging pending Medical Decision Making Medical Decision Making [facility] Narrative: My interpretation of labs: Hematology at baseline, chemistry at baseline, troponin is 66, however patient has chronically elevated troponin. Urinalysis negative for UTI My interpretation of EKG: Normal sinus rhythm, heart rate 74, no ST segment depression or elevation, no T-wave inversion, QTC [address] My interpretation of head CT: No intracranial abnormality. CT scan shows no obvious abnormality in head or cervical spine CT x-ray of the shoulder shows chronic 3rd left rib fracture. Patient has no rib pain. No shoulder abnormality -patient's troponin 1. Was 56, 2nd troponin was 54.7. Patient has no EKG abnormalities. Patient has no chest pain or shortness of breath. Chronically patient has elevated troponins. -patient states that she feels well to go home Differential Diagnosis Differential Diagnoses: The differential diagnosis associated with the presentation includes (Mechanical fall, near syncope, UTI) Admission/Observation Consideration of admission/observation: Escalation of care including admission/observation considered (Given patient's past medical history and presentation, observation was considered) Lab Data [facility] Lab Attestation statement: I reviewed the patient's lab results. 07/26/24 20:49 07/26/24 20:49 Labs: Lab Results 07/26/24 07/26/24 07/26/24 Range/Units 20:31 20:49 23:26 WBC 5.3 (4.8-10.8) X10*3/uL RBC 3.89 L (4.20-5.50) X10*6/uL Hgb 9.9 L (12.0-16.0) g/dl Hct 32.1 L (37.0-47.0) % MCV 82.5 (80.0-98.0) fL MCH 25.4 L (27.0-33.0) pg MCHC 30.8 L (31.0-35.0) g/dl RDW 17.8 H (11.0-16.0) % Plt Count 242 (160-400) X10*3/uL MPV 9.5 (9.4-12.3) fL Immature Gran % (Auto) 0.2 (0.0-0.4) % Neut % (Auto) 54.5 (45-73) % Lymph % (Auto) 30.8 (20-40) % [place] % (Auto) 10.5 (2-11) % Eos % (Auto) 3.6 (0-4) % Baso % (Auto) 0.4 (0-2) % Lymph # (Auto) 1.6 (1.2-4.9) X10*3/uL [place] # (Auto) 0.6 (0.1-1.2) X10*3/uL Eos # (Auto) 0.2 (0.0-0.4) X10*3/uL Baso # (Auto) 0.0 (0.0-0.2) X10*3/uL Abs Immat Gran (auto) 0.01 (0.00-0.03) X10*3/uL Absolute Neuts (auto) 2.9 (2.0-8.3) x10*3/uL Absolute Nucleated RBC 0.000 (0.0-0.012) X10*3/uL Nucleated RBC % (auto) 0.0 (0.0-0.2) /100WBC PT 11.2 (10.9-12.4) SEC INR 1.0 (0.9-1.1) APTT 27.7 (26.0-36.8) SEC Sodium 142 (135-145) mmol/L Potassium 4.2 (3.3-5.1) mmol/L Chloride 105 (96-108) mmol/L Carbon Dioxide 31 H (22-29) mmol/L Anion Gap 10 L (12-20) BUN 13 (9-16) mg/dL Creatinine 0.69 (0.5-1.4) mg/dL Estim Creat Clear Calc 131.6 Estimated GFR > 60 Random Glucose 138 H (60-115) mg/dL Calcium 9.1 (8.4-10.2) mg/dL Magnesium 1.8 (1.6-2.6) mg/dL Total Bilirubin 0.2 (0.0-1.0) mg/dL Direct Bilirubin < 0.2 (0.0-0.5) mg/dL AST 19 (5-31) U/L ALT 15 (0-31) U/L Alkaline Phosphatase 77 (39-117) U/L Total Creatine Kinase 122 (26-140) U/L Troponin I High Sens 56.0 H* D 54.7 H* (<3.5-17.0) ng/L Total Protein 7.0 (6.5-8.0) g/dL Albumin 3.8 (3.5-5.0) g/dL Urine Color Yellow Urine Appearance Clear Urine pH 6.5 (5.0-9.0) Ur Specific [place] 1.010 (1.005-1.025) Urine Protein Negative (Neg-Trace) mg/dL Urine Glucose (UA) Negative (Negative) mg/dL Urine Ketones Negative (Negative) mg/dL Urine Blood Negative (Negative) Urine Nitrite Negative (Negative) Ur Leukocyte Esterase Negative (Negative) Independent Interpretation I performed an independent interpretation of an: CT Scan Radiology Impression Discussion of test interpretation with radiology: I have reviewed the radiologist's reading. Radiologist Impression: Head: There is no evidence of acute intracranial hemorrhage or edematous territorial infarction. Oneill-white matter differentiation is preserved. A few foci of hypoattenuation in the periventricular and deep white matter are consistent with mild microangiopathy. Proportional prominence of the ventricles and sulcal spaces without evidence of obstructive hydrocephalus. No abnormal mass effect or midline shift. No extra-axial fluid collections. No acute soft tissue or osseous abnormalities. Mild mucosal thickening of the paranasal sinuses. The mastoid air cells and middle ear cavities are clear. Bilateral lens extractions. Cervical Spine: The atlantooccipital and atlantoaxial articulations remain well aligned. Moderate degenerative arthropathy of the atlantodental articulation. Straightening of the normal cervical lordosis. Moderate degenerative stepwise anterolistheses of C3-C6. Otherwise, there is anatomic alignment of the vertebral bodies and posterior elements. No evidence of acute fracture or subluxation. The vertebral body heights are maintained. Advanced degenerative disc disease from C5-C7. Mild to moderate degenerative disc disease at all additional levels. Facet and uncovertebral joint arthropathy leads to osseous encroachment on the neural foramina from C2-C4. There is no prevertebral soft tissue swelling. The thyroid gland and remaining cervical soft tissues are within normal limits. The lung apices demonstrate no abnormalities. CT/CT head/brain wo IV con IMPRESSION: 1. No evidence of acute intracranial hemorrhage or edematous territorial infarction. Mild underlying microangiopathy and generalized cerebral volume loss. 2. No evidence of acute fracture or traumatic subluxation of the cervical spine. Moderate multilevel degenerative spondyloarthropathy of the cervical spine. Critical Care Time Critical Care Time Critical Care Time: Yes Total Critical Care Time: 35 Attestation: I have personally provided critical care time. Time includes review of lab data, radiology results, discussion with consultants, and monitoring for potential decompensation. Intervention performed as documented. Discharge Plan Discharge Clinical Impression: Fall, Contusion Patient Disposition: Home, Self-Care Instructions: Contusion in Adults (ED), Fall Prevention for Older Adults (ED) Additional Instructions: Please follow-up with your primary care physician tomorrow. If you have any worsening or new symptoms, please return to the emergency room or call 911 Prescriptions: No Action xylffevpzm-idgwmyuatatqo-glyx 50-325-40 mg tablet 1 tab PO Q6H PRN (Reason: Headache) atorvastatin 80 mg Tablet 80 mg PO BEDTIME Qty: 0 0RF magnesium oxide 400 mg (241.3 mg magnesium) Tablet 400 mg PO BEDTIME Qty: 30 0RF metoprolol succinate 25 mg Tablet Extended Release 24 Hr 25 mg PO DAILY Qty: 0 0RF Protocol: Hold for SBP/HR < HOLD for SBP < : 90 HOLD for HR < : 60 metformin 500 mg Tablet Extended Release 24 Hr 500 mg PO BID Qty: 60 0RF loratadine 10 mg Tablet 10 mg PO DAILY Qty: 0 0RF montelukast 10 mg Tablet 10 mg PO BEDTIME Qty: 30 0RF sennosides [senna] 8.6 mg tablet 8.6 mg PO DAILY ondansetron HCl 4 mg tablet 4 mg PO Q8H PRN (Reason: nausea) pantoprazole 40 mg tablet,delayed release (DR/EC) 40 mg PO DAILY@0630 docusate sodium 100 mg capsule 100 mg PO BID amitriptyline 150 mg tablet 150 mg PO BEDTIME Rx Instructions: with 50 mg clonazepam 0.5 mg tablet 0.5 mg PO BID PRN (Reason: Anxiety) valproic acid (as sodium salt) 250 mg/5 mL solution 500 mg PO BEDTIME zolpidem 10 mg tablet 10 mg PO BEDTIME naproxen 500 mg tablet 500 mg PO BID duloxetine 20 mg capsule,delayed release(DR/EC) 20 mg PO DAILY Rx Instructions: with 60 mg amitriptyline 50 mg tablet 50 mg PO BEDTIME Rx Instructions: with 150 mg gabapentin 300 mg capsule 300 mg PO TID insulin glargine [Lantus U-100 Insulin] 100 unit/mL solution 35 unit subcut BEDTIME (DME) lancets [OneTouch Delica Plus Lancet] 33 gauge misc See Rx Instructions .ROUTE BID Qty: 100 Rx Instructions: As directed (DME) OneTouch Ultra Test Strip See Rx Instructions .ROUTE BID Qty: 10 Rx Instructions: As directed Print Language: Tajik
[2024-07-26 22:43] VITALS: BP 143/57; PULSE 74; RESP 16; TEMP 36.8; O2SAT 96
[2024-07-26 23:55] LABS: Troponin-I High Sensitivity 54.7 ng/L (<3.5-17.0)
[2024-07-27 00:48] VITALS: BP 138/65; PULSE 72; RESP 18; TEMP 36.4; O2SAT 96
== END 2024-07-27 01:11 | disposition home or self-care (01) ==
PROVIDERS: Physician Assistant Medical; Emergency Provider Emergency Medicine; PCP Internal Medicine
DX: S60.211A Contusion of right wrist, initial encounter (principal); S60.212A Contusion of left wrist, initial encounter; E11.9 Type 2 diabetes mellitus without complications; M25.512 Pain in left shoulder; R55 Syncope and collapse; M54.2 Cervicalgia; R51.9 Headache, unspecified; W01.0XXA Fall on same level from slipping, tripping and stumbling without subsequent striking against object, initial encounter; Y93.89 Activity, other specified; Y92.89 Other specified places as the place of occurrence of the external cause; Z79.4 Long term (current) use of insulin; Y99.8 Other external cause status; Z79.899 Other long term (current) drug therapy
CPT/HCPCS: 36415; 70450; 72125; 73030; 80048; 80076; 81003; 82550; 83735; 84484; 85025; 85610; 85730; 93005; 99283; 99284

== ENCOUNTER → 2024-07-26 19:51 | Outpatient (BNV) | payer OTHER, SELFPAY | PROVIDERS: Emergency Provider Emergency Medicine; PCP Internal Medicine; Visit Provider Internal Medicine | DX: R55 Syncope and collapse (principal) | CPT/HCPCS: 93010 ==

== ENCOUNTER 2024-08-24 22:45 | Emergency (ER) | payer OTHER, SELFPAY ==
--- NOTE | ~2024-08-24 | XR_ITS ---
EXAMINATION: Left tibia and fibula x-ray. CLINICAL INFORMATION: Left leg wound COMPARISON: None available. TECHNIQUE: Frontal and lateral X-rays of left tibia and fibula FINDINGS: BONES: Bony structures are intact. There is no focal bone destruction or periosteal reaction seen. JOINTS: Alignment of joints is normal. SOFT TISSUE: Soft tissue is normal. No radiopaque foreign body or abnormal air collection is seen. XR/XR tibia fibula LT 2V IMPRESSION: 1. Normal x-rays of left tibia and fibula. No fracture or dislocation or signs of osteomyelitis are found. Electronically signed by: Patel Vergara MD 08/25/2024 07:37 AM [facility] [place]
[2024-08-24 22:50] VITALS: BP 154/67; PULSE 96; RESP 20; TEMP 36.7; O2SAT 95; BMI 31.5
[2024-08-24 23:19] LABS: MANUAL DIFF FLAG NO
[2024-08-24 23:20] LABS: Basophils Percent Auto 0.4 % (0-2); Eosinophils Absolute Auto 0.2 X10*3/uL (0.0-0.4); Eosinophils Percent Auto 1.8 % (0-4); Hematocrit 32.9 % (37.0-47.0); Hemoglobin 10.1 g/dl (12.0-16.0); Imm Gran Abs Auto 0.02 X10*3/uL (0.00-0.03); Imm Gran Pct Auto 0.2 % (0.0-0.4); Lymphocytes Absolute Auto 1.7 X10*3/uL (1.2-4.9); Lymphocytes Percent Auto 20.4 % (20-40); Mean Corpuscular HGB Conc 30.7 g/dl (31.0-35.0); Mean Corpuscular Hemoglobin 24.6 pg (27.0-33.0); Mean Corpuscular Volume 80.2 fL (80.0-98.0); Mean Platelet Volume 10.4 fL (9.4-12.3); Monocytes Absolute Auto 0.6 X10*3/uL (0.1-1.2); Monocytes Percent Auto 7.4 % (2-11); Neutrophils Percent Auto 69.8 % (45-73); Platelet Count 252 X10*3/uL (160-400); Red Cell Distribution Width 17.9 % (11.0-16.0); White Blood Count 8.5 X10*3/uL (4.8-10.8)
[2024-08-24 23:33] LABS: Alanine Aminotransferase 9 U/L (0-31); Alkaline Phosphatase 86 U/L (39-117); Anion Gap 13 (12-20); Aspartate Amino Transferase 19 U/L (5-31); Bilirubin Total 0.3 mg/dL (0.0-1.0); Blood Urea Nitrogen 17 mg/dL (9-16); Carbon Dioxide 28 mmol/L (22-29); Chloride 103 mmol/L (96-108); Creatinine Clr Calc Pharmacy 94.4; Estimated Glomerular Filt Rate > 60; Glucose Random 131 mg/dL (60-115); Potassium 3.4 mmol/L (3.3-5.1); Sodium 141 mmol/L (135-145); Total Protein 7.6 g/dL (6.5-8.0)
--- NOTE | 2024-08-25 06:19 | PC.NURSE ---
pt impaled leg while getting into [employer] truck, does not know if it was a metal or wood tube, removed it and didn't think anything of it . home nurse was caring for wound, last few days leg more red, swollen and painful/tight. pt unsure if a piece of the object is still in her leg. unknown tetanus status.
[2024-08-25 06:55] VITALS: BP 107/55; PULSE 72; RESP 17; TEMP 36.4; O2SAT 96
--- NOTE | 2024-08-25 07:03 | ED_ITS ---
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 Patient states that on 08/17/2024 she was getting into a truck and cut her left alaniz. Patient states that since then it has gotten warm, red, and hot to the touch. Patient denies any dizziness, lightheadedness, abdominal pain, nausea, vomiting, fever, chills, blurry vision, double vision, loss of vision, chest pain, difficulty breathing, shortness of breath, back pain, night sweats, pain with urination, increased urinary frequency, increased urinary urgency, blood in her urine or stool, syncope or a near syncopal episode, bowel incontinence, bladder incontinence, or any other complaints at this time. Relieving factors: none Exacerbating factors: none Associated symptoms: denies other symptoms Treatments prior to arrival: none Related Data Home Medications ?Medication ?Instructions ?Recorded ?Confirmed blood sugar diagnostic (OneTouch #10 ea 09/27/22 10/20/23 Ultra Test strips) lancets 33 gauge (OneTouch Delica #100 ea 09/27/22 10/20/23 Plus Lancet) epcxryzxnl-xunkejuhajktt-izkhzxjq 1 tab PO Q6H PRN Headache 10/17/23 05/13/24 50 mg-325 mg-40 mg tablet docusate sodium 100 mg capsule 100 mg PO BID 11/16/23 05/13/24 ondansetron HCl 4 mg tablet 4 mg PO Q8H PRN nausea 11/16/23 05/12/24 pantoprazole 40 mg tablet,delayed 40 mg PO DAILY@0630 11/16/23 05/12/24 release sennosides 8.6 mg tablet (senna) 8.6 mg PO DAILY 11/16/23 05/13/24 amitriptyline 150 mg tablet 150 mg PO BEDTIME 04/11/24 05/13/24 amitriptyline 50 mg tablet 50 mg PO BEDTIME 04/11/24 05/13/24 clonazepam 0.5 mg tablet 0.5 mg PO BID PRN Anxiety 04/11/24 05/13/24 duloxetine 20 mg capsule,delayed 20 mg PO DAILY 04/11/24 05/12/24 release gabapentin 300 mg capsule 300 mg PO TID 04/11/24 05/13/24 insulin glargine 100 unit/mL 35 unit subcut BEDTIME 04/11/24 05/12/24 subcutaneous solution (Lantus U-100 Insulin) naproxen 500 mg tablet 500 mg PO BID 04/11/24 05/12/24 valproic acid (as sodium salt) 250 500 mg PO BEDTIME 04/11/24 05/13/24 mg/5 mL oral solution zolpidem 10 mg tablet 10 mg PO BEDTIME 04/11/24 05/12/24 Previous Rx's ?Medication ?Instructions ?Recorded atorvastatin 80 mg tablet 80 mg PO BEDTIME #0 tabs 10/29/23 loratadine 10 mg tablet 10 mg PO DAILY #0 tabs 10/29/23 magnesium oxide 400 mg (241.3 mg 400 mg PO BEDTIME #30 tabs 10/29/23 magnesium) tablet metformin 500 mg tablet,extended 500 mg PO BID #60 tabs 10/29/23 release 24 hr metoprolol succinate 25 mg 25 mg PO DAILY #0 tabs 10/29/23 tablet,extended release 24 hr montelukast 10 mg tablet 10 mg PO BEDTIME #30 tabs 10/29/23 doxycycline hyclate 100 mg tablet 100 mg PO BID 7 days #14 tabs 08/25/24 Allergies Allergy/AdvReac Type Severity Reaction Status Date / Time Penicillins Allergy Mild Swelling Verified 08/24/24 22:57 Review of Systems 2 Constitutional: Constitutional: Reports no additional constitutional complaints, Denies chills, Denies fever(s) and Denies night sweats Eyes: Eyes: Reports no additional eye complaints, Denies blurry vision, Denies change in vision, Denies diplopia, Denies eye discharge, Denies loss of vision and Denies eye pain ENT: Denies dizziness Cardiovascular: Cardiovascular: Reports no additional cardiovascular complaints, Denies chest pain, Denies lightheadedness, Denies Loss of Consciousness and Denies dyspnea Respiratory: Respiratory: Reports no additional respiratory complaints and Denies dyspnea Gastrointestinal: Gastrointestinal: Reports no additional gastrointestinal complaints, Denies abdominal pain, Denies melena, Denies hematochezia, Denies change in bowel habits and Denies change in stool character Genitourinary: Genitourinary: Denies hematuria, Denies urinary frequency, Denies dysuria, Denies urinary incontinence, Denies urinary hesitancy and Denies urinary urgency Musculoskeletal: Musculoskeletal: Reports no additional musculoskeletal complaints, Denies numbness and Denies tingling Comments: left lower leg injury Neurologic: Denies dizziness, Denies loss of vision, Denies numbness and Denies tingling Psychiatric: Psychiatric: Reports no additional psychiatric complaints Endocrine: Endocrine: Reports no additional endocrine complaints Hematologic/Lymphatic: Hematologic/Lymphatic: Reports no additional hematologic/lymphatic complaints Allergic/Immunologic: Allergic/Immunologic: Reports no additional allergic/immunologic complaints PMFSH Past Medical History Attestation statement: The following information was validated with the patient. Source: old records reviewed and nursing notes reviewed Medical History Seizure disorder JOSÉ (obstructive sleep apnea) Delusions Major neurocognitive disorder Chest pain Dyspnea on exertion COVID-19 GERD (gastroesophageal reflux disease) DJD (degenerative joint disease) COPD (chronic obstructive pulmonary disease) Bipolar disorder CTS (carpal tunnel syndrome) Hx of rheumatoid arthritis Diabetic neuropathy Urinary incontinence Aneurysm of middle cerebral artery Pulmonary nodules CHF (congestive heart failure) Palpitations Migraine History of COVID-19 Mild aortic stenosis Asthma Insulin dependent type 2 diabetes mellitus Mixed hyperlipidemia Mood disorder Essential hypertension Surgical History No pertinent past surgical history Hx of cataract surgery H/O: hysterectomy Hx of cholecystectomy History of carpal tunnel release Family History Family History Mother Myocardial infarction Father Myocardial infarction Sister Breast cancer Brother Spleen cancer Social History Social History Household Members: None Housing: Apartment Do you presently have visiting nurse or other home services: Yes ([employer] during the day, none at night) Unable to assess alcohol history related to: Unknown Alcohol intake: never Comment: report given by Cleo menendez Patient Tobacco Use Status: Never used Tobacco Tobacco use type: Cigarette Cigarette Packs Per Day: 0.2 Cigarettes Per Day: 4.0 Years Smoked: 4412-6391 Smoked in Last 30 Days: No e-Cigarette/Vaping Use: Never Used Second Hand Smoke Exposure: No Use of substances other than those prescribed or required for medical reasons: No Advance Directives: Yes Advance Directives on File: Yes Advance Directives Date on File: 11/20/23 Do you have a plan to hurt others: No Plan service: No Current occupational status: retired Sexual orientation: Straight/Heterosexual Physical Exam ED Vital Signs: Vital Signs - 24 hr 08/24/24 22:50 08/25/24 06:55 08/25/24 07:59 Temperature 98.1 F 97.6 F 97.6 F Pulse Rate 96 72 72 Respiratory Rate 20 17 17 Blood Pressure 154/67 H 107/55 L 107/55 L Pulse Oximetry 95 96 96 Oxygen Delivery Method Room Air Room Air Room Air BMI result Body Mass Index 31.5 Const General: cooperative, no acute distress, alert and awake Nutritional Appearance: well nourished Orientation/consciousness: patient oriented x3 Limitations: no limitations HENMT Head: Yes normal to inspection and Yes atraumatic Ears: hearing grossly normal bilaterally and external ears normal General nose exam: Normal external nose present, no nasal discharge noted and no epistaxis Face and sinus: Yes normal facial exam, No abrasion and No laceration Mouth: Normal oral and palatal mucosa present, no drooling and no muffled voice Eyes General: appearance normal, both eyes and all related structures Periorbital: periorbital findings normal Eyelids: Yes eyelids normal Conjunctivae: conjunctivae normal Pupils: Equal, round and reactive pupils present EOM: EOMs intact bilaterally Neck Neck: Yes normal visual inspection, Yes full ROM and Yes no lymphadenopathy Chest Chest palpation & inspection: normal inspection of the chest Resp Effort & Inspection: normal respiratory effort and able to speak in complete sentences GI Inspection: Yes normal to inspection Neuro General: patient oriented x3 and moves all extremities Cranial nerves: Yes Equal, round and reactive pupils present Cognition (Neuro): normal cognition Extrem Other: wound to the dorsal left lower leg with surrounding erythema and warmth General: Yes full ROM and Yes capillary refill normal Psych Appearance: grossly normal Mental Status: mental status grossly normal Affect: normal affect Attitude: cooperative Thought process: Normal thought process present Thought content: Normal thought content present Insight: Good insight present (Psych) Medical Decision Making Medical Decision Making [facility] Narrative: Patient is a 69 year old assigned female at with a history of HTN, NSTEMI, and DM presenting to the emergency department today with left lower leg pain. Patient's physical exam was as noted in the physical exam portion of this note. Patient's blood work was unremarkable. Patient's left tib fib x-ray showed no acute process. I explained my physical exam findings as well as all test results to the patient. I answered all questions asked by the patient. I stressed the importance of the patient taking her medication as directed (either prescribed or as the over the counter packaging recommends). I stressed the importance of the patient following up with her primary care provider. I stressed the importance of the patient returning to the emergency department immediately if her symptoms were to worsen or if she were to develop any dizziness, shortness of breath, difficulty breathing, chest pain, blurry vision, loss of vision, nausea, vomiting, abdominal pain, fever, chills, back pain, or any other complaints. Patient verbalized agreement and understanding with this treatment plan and discharge. Differential Diagnosis Differential Diagnoses: The differential diagnosis associated with the presentation includes Cellulitis Admission/Observation Consideration of admission/observation: Escalation of care including admission/observation considered Patient would have been admitted to the hospital had her work up had any findings where hospital admission was appropriate and her clinical presentation warranted hospital admission. Lab Data [facility] Lab Attestation statement: I reviewed the patient's lab results. My interpretation of these results are in the MDM Rationale portion of this note. 08/24/24 23:11 08/24/24 23:11 Labs: Lab Results 08/24/24 Range/Units 23:11 WBC 8.5 (4.8-10.8) X10*3/uL RBC 4.10 L (4.20-5.50) X10*6/uL Hgb 10.1 L (12.0-16.0) g/dl Hct 32.9 L (37.0-47.0) % MCV 80.2 (80.0-98.0) fL MCH 24.6 L (27.0-33.0) pg MCHC 30.7 L (31.0-35.0) g/dl RDW 17.9 H (11.0-16.0) % Plt Count 252 (160-400) X10*3/uL MPV 10.4 (9.4-12.3) fL Immature Gran % (Auto) 0.2 (0.0-0.4) % Neut % (Auto) 69.8 (45-73) % Lymph % (Auto) 20.4 (20-40) % [place] % (Auto) 7.4 (2-11) % Eos % (Auto) 1.8 (0-4) % Baso % (Auto) 0.4 (0-2) % Lymph # (Auto) 1.7 (1.2-4.9) X10*3/uL [place] # (Auto) 0.6 (0.1-1.2) X10*3/uL Eos # (Auto) 0.2 (0.0-0.4) X10*3/uL Baso # (Auto) 0.0 (0.0-0.2) X10*3/uL Abs Immat Gran (auto) 0.02 (0.00-0.03) X10*3/uL Absolute Neuts (auto) 6.0 (2.0-8.3) x10*3/uL Absolute Nucleated RBC 0.000 (0.0-0.012) X10*3/uL Nucleated RBC % (auto) 0.0 (0.0-0.2) /100WBC Sodium 141 (135-145) mmol/L Potassium 3.4 (3.3-5.1) mmol/L Chloride 103 (96-108) mmol/L Carbon Dioxide 28 (22-29) mmol/L Anion Gap 13 (12-20) BUN 17 H (9-16) mg/dL Creatinine 0.60 (0.5-1.4) mg/dL Estim Creat Clear Calc 94.4 Estimated GFR > 60 Random Glucose 131 H (60-115) mg/dL Calcium 9.0 (8.4-10.2) mg/dL Total Bilirubin 0.3 (0.0-1.0) mg/dL AST 19 (5-31) U/L ALT 9 (0-31) U/L Alkaline Phosphatase 86 (39-117) U/L Total Protein 7.6 (6.5-8.0) g/dL Albumin 4.0 (3.5-5.0) g/dL Independent Interpretation I performed an independent interpretation of an: Plain X-Ray Interpretation: My interpretation is in agreement with the radiologist's impression of this imaging study. L EXAMINATION: Left tibia and fibula x-ray. CLINICAL INFORMATION: Left leg wound COMPARISON: None available. TECHNIQUE: Frontal and lateral X-rays of left tibia and fibula FINDINGS: BONES: Bony structures are intact. There is no focal bone destruction or periosteal reaction seen. JOINTS: Alignment of joints is normal. SOFT TISSUE: Soft tissue is normal. No radiopaque foreign body or abnormal air collection is seen. XR/XR tibia fibula LT 2V IMPRESSION: 1. Normal x-rays of left tibia and fibula. No fracture or dislocation or signs of osteomyelitis are found. Electronically signed by: Patel Vergara MD 08/25/2024 07:37 AM EST Dictated By: Patel Vergara Signed By: Electronically signed by Patel Vergara 08/25/24 0737 Radiology Impression Discussion of test interpretation with radiology: I have reviewed the radiologist's reading. Independent Historian Clinical information obtained from an independent historian. History obtained from or confirmed by: EMS (EMS provided additional history and confirmed the history provided by the patient.) Prescription Management I considered prescription management with: Antibiotic (patient prescribed an antibiotic for cellulitis) Chronic Conditions Patient?s care impacted by: Diabetes and Hypertension Discharge Plan Discharge Clinical Impression: Cellulitis Patient Disposition: Home, Self-Care Instructions: Cellulitis (DC) Additional Instructions: Take your antibiotic as prescribed. Follow up with your primary care provider. Return to the emergency department immediately if your symptoms worsen or if you develop any dizziness, shortness of breath, difficulty breathing, chest pain, blurry vision, loss of vision, nausea, vomiting, abdominal pain, fever, chills, back pain, or any other complaints. [place] el antibi?opal delphine maren se le sanchez recetado. Gaby un seguimiento con gamboa m?dico de cabecera. Acuda inmediatamente al servicio de urgencias si brittney s?ntomas empeoran o si presenta mareos, falta de aliento, dificultad para respirar, dolor tor?cico, visi?n borrosa, p?rdida de visi?n, n?useas, v?mitos, dolor abdominal, fiebre, escalofr?os, dolor de espalda o cualquier otra molestia. Prescriptions: New doxycycline hyclate 100 mg tablet 100 mg PO BID 7 Days Qty: 14 0RF No Action ygieopsdhv-yltvjiamvuprz-zumn 50-325-40 mg tablet 1 tab PO Q6H PRN (Reason: Headache) atorvastatin 80 mg Tablet 80 mg PO BEDTIME Qty: 0 0RF magnesium oxide 400 mg (241.3 mg magnesium) Tablet 400 mg PO BEDTIME Qty: 30 0RF metoprolol succinate 25 mg Tablet Extended Release 24 Hr 25 mg PO DAILY Qty: 0 0RF Protocol: Hold for SBP/HR < HOLD for SBP < : 90 HOLD for HR < : 60 metformin 500 mg Tablet Extended Release 24 Hr 500 mg PO BID Qty: 60 0RF loratadine 10 mg Tablet 10 mg PO DAILY Qty: 0 0RF montelukast 10 mg Tablet 10 mg PO BEDTIME Qty: 30 0RF sennosides [senna] 8.6 mg tablet 8.6 mg PO DAILY ondansetron HCl 4 mg tablet 4 mg PO Q8H PRN (Reason: nausea) pantoprazole 40 mg tablet,delayed release (DR/EC) 40 mg PO DAILY@0630 docusate sodium 100 mg capsule 100 mg PO BID amitriptyline 150 mg tablet 150 mg PO BEDTIME Rx Instructions: with 50 mg clonazepam 0.5 mg tablet 0.5 mg PO BID PRN (Reason: Anxiety) valproic acid (as sodium salt) 250 mg/5 mL solution 500 mg PO BEDTIME zolpidem 10 mg tablet 10 mg PO BEDTIME naproxen 500 mg tablet 500 mg PO BID duloxetine 20 mg capsule,delayed release(DR/EC) 20 mg PO DAILY Rx Instructions: with 60 mg amitriptyline 50 mg tablet 50 mg PO BEDTIME Rx Instructions: with 150 mg gabapentin 300 mg capsule 300 mg PO TID insulin glargine [Lantus U-100 Insulin] 100 unit/mL solution 35 unit subcut BEDTIME (DME) lancets [OneTouch Delica Plus Lancet] 33 gauge misc See Rx Instructions .ROUTE BID Qty: 100 Rx Instructions: As directed (DME) OneTouch Ultra Test Strip See Rx Instructions .ROUTE BID Qty: 10 Rx Instructions: As directed Referrals: Ashwin Arzola III, MD [Primary Care Provider] - Interventions: ED Discharge Assessment Last Done: 08/25/24 07:59 Discharge Date/Time: 08/25/24 08:00 Print Language: [place]
[2024-08-25 07:59] VITALS: BP 107/55; PULSE 72; RESP 17; TEMP 36.4; O2SAT 96
== END 2024-08-25 08:00 | disposition home or self-care (01) ==
PROVIDERS: Emergency Provider Student in an Organized Health Care Education/Training Program; PCP Internal Medicine
DX: L03.116 Cellulitis of left lower limb (principal); Z79.899 Other long term (current) drug therapy
CPT/HCPCS: 36415; 73590; 80053; 85025; 87040; 99283; 99284

== ENCOUNTER 2024-08-31 21:18 | Emergency (ER) | payer OTHER, SELFPAY ==
--- NOTE | 2024-08-31 | ECG_ITS ---
Test Reason : ANXIETY Blood Pressure : / mmHG Vent. Rate : 083 BPM Atrial Rate : 083 BPM P-R Int : 170 ms QRS Dur : 084 ms QT Int : 362 ms P-R-T Axes : 046 016 053 degrees QTc Int : 425 ms Normal sinus rhythm Normal ECG When compared with ECG of 31-AUG-2024 21:47, No significant change was found Referred By: Generic ED Physician Electronically Signed By:ALISHA JOLLY MD
--- NOTE | ~2024-08-31 | XR_ITS ---
EXAMINATION: XR CHEST CLINICAL INFORMATION: sob COMPARISON: X-ray dated May 12, 2024 TECHNIQUE: Frontal view of the chest was obtained. FINDINGS: Bilateral pulmonary reticular pattern. No consolidation, pleural effusion or pneumothorax. Cardiomediastinal silhouette demonstrates calcified plaque aortic arch. Multilevel thoracic spondylosis. Degenerative changes in the right shoulder. XR/XR chest 1V IMPRESSION: Chronic interstitial lung disease. Superimposed acute inflammatory versus infectious process cannot be excluded. Electronically signed by: Dudley Rebollar MD 08/31/2024 11:07 PM [facility]
[2024-08-31 21:28] VITALS: BP 167/70; PULSE 99; O2SAT 99
[2024-08-31 21:41] VITALS: BP 163/58; PULSE 90; RESP 22; TEMP 36.8; O2SAT 96; BMI 31.6
[2024-08-31 22:18] LABS: MANUAL DIFF FLAG NO
[2024-08-31 22:20] LABS: Basophils Percent Auto 0.5 % (0-2); Eosinophils Absolute Auto 0.1 X10*3/uL (0.0-0.4); Eosinophils Percent Auto 1.4 % (0-4); Hematocrit 30.4 % (37.0-47.0); Hemoglobin 9.4 g/dl (12.0-16.0); Imm Gran Abs Auto 0.02 X10*3/uL (0.00-0.03); Imm Gran Pct Auto 0.3 % (0.0-0.4); Lymphocytes Absolute Auto 1.9 X10*3/uL (1.2-4.9); Lymphocytes Percent Auto 24.3 % (20-40); Mean Corpuscular HGB Conc 30.9 g/dl (31.0-35.0); Mean Corpuscular Hemoglobin 24.7 pg (27.0-33.0); Mean Corpuscular Volume 79.8 fL (80.0-98.0); Mean Platelet Volume 9.9 fL (9.4-12.3); Monocytes Absolute Auto 0.6 X10*3/uL (0.1-1.2); Monocytes Percent Auto 7.7 % (2-11); Neutrophils Absolute Auto 5.1 x10*3/uL (2.0-8.3); Neutrophils Percent Auto 65.8 % (45-73); Platelet Count 233 X10*3/uL (160-400); Red Blood Count 3.81 X10*6/uL (4.20-5.50); White Blood Count 7.8 X10*3/uL (4.8-10.8)
[2024-08-31 22:26] VITALS: BP 107/56; PULSE 82; RESP 18; TEMP 36.2; O2SAT 90
[2024-08-31 22:44] LABS: B Type Natriuretic Peptide 33 pg/mL (<100)
[2024-08-31 22:47] LABS: Troponin-I High Sensitivity 16.7 ng/L (<3.5-17.0)
[2024-08-31 22:51] LABS: Alanine Aminotransferase 11 U/L (0-31); Albumin Level 3.8 g/dL (3.5-5.0); Alkaline Phosphatase 72 U/L (39-117); Anion Gap 11 (12-20); Aspartate Amino Transferase 22 U/L (5-31); Blood Urea Nitrogen 21 mg/dL (9-16); Calcium 8.9 mg/dL (8.4-10.2); Carbon Dioxide 26 mmol/L (22-29); Chloride 106 mmol/L (96-108); Creatinine Clr Calc Pharmacy 84.7; Estimated Glomerular Filt Rate > 60; Glucose Random 93 mg/dL (60-115); Magnesium 1.6 mg/dL (1.6-2.6); Potassium 3.5 mmol/L (3.3-5.1); Sodium 139 mmol/L (135-145); Total Protein 7.1 g/dL (6.5-8.0)
[2024-08-31 23:06] LABS: Bilirubin Total 0.4 mg/dL (0.0-1.0)
[2024-09-01] MEDS: LORazepam 0.5 MG TABLET PO (00:36)
[2024-09-01 00:51] LABS: Troponin-I High Sensitivity 16.9 ng/L (<3.5-17.0)
--- NOTE | 2024-09-01 01:19 | ED.ANXIETY ---
HPI - Anxiety General Chief Complaint: Anxiety Stated Complaint: panic attack Time Seen by Provider: 08/31/24 21:50 History of Present Illness HPI narrative: Patient is 69-year-old female with a history of interstitial lung disease. History of anxiety history of obstructive sleep apnea asthma NSTEMI hypertension hyperlipidemia diabetes. Presents today with having feeling episodes of shortness of breath. The shortness breath occurred after patient got into a stressful event with patient's son. This is very similar to previous episodes. There is no chest pain there is no diaphoresis. There is no abdominal pain. Patient want medication for anxiety. She is from home. Related Data Home Medications ?Medication ?Instructions ?Recorded ?Confirmed blood sugar diagnostic (VinveliTouch #10 ea 09/27/22 10/20/23 Ultra Test strips) lancets 33 gauge (VinveliTouch Delica #100 ea 09/27/22 10/20/23 Plus Lancet) [id number] 1 tab PO Q6H PRN Headache 10/17/23 05/13/24 50 mg-325 mg-40 mg tablet docusate sodium 100 mg capsule 100 mg PO BID 11/16/23 05/13/24 ondansetron HCl 4 mg tablet 4 mg PO Q8H PRN nausea 11/16/23 05/12/24 pantoprazole 40 mg tablet,delayed 40 mg PO DAILY@0630 11/16/23 05/12/24 release sennosides 8.6 mg tablet (senna) 8.6 mg PO DAILY 11/16/23 05/13/24 amitriptyline 150 mg tablet 150 mg PO BEDTIME 04/11/24 05/13/24 amitriptyline 50 mg tablet 50 mg PO BEDTIME 04/11/24 05/13/24 clonazepam 0.5 mg tablet 0.5 mg PO BID PRN Anxiety 04/11/24 05/13/24 duloxetine 20 mg capsule,delayed 20 mg PO DAILY 04/11/24 05/12/24 release gabapentin 300 mg capsule 300 mg PO TID 04/11/24 05/13/24 insulin glargine 100 unit/mL 35 unit subcut BEDTIME 04/11/24 05/12/24 subcutaneous solution (Lantus U-100 Insulin) naproxen 500 mg tablet 500 mg PO BID 04/11/24 05/12/24 valproic acid (as sodium salt) 250 500 mg PO BEDTIME 04/11/24 05/13/24 mg/5 mL oral solution zolpidem 10 mg tablet 10 mg PO BEDTIME 04/11/24 05/12/24 Previous Rx's ?Medication ?Instructions ?Recorded atorvastatin 80 mg tablet 80 mg PO BEDTIME #0 tabs 10/29/23 loratadine 10 mg tablet 10 mg PO DAILY #0 tabs 10/29/23 magnesium oxide 400 mg (241.3 mg 400 mg PO BEDTIME #30 tabs 10/29/23 magnesium) tablet metformin 500 mg tablet,extended 500 mg PO BID #60 tabs 10/29/23 release 24 hr metoprolol succinate 25 mg 25 mg PO DAILY #0 tabs 10/29/23 tablet,extended release 24 hr montelukast 10 mg tablet 10 mg PO BEDTIME #30 tabs 10/29/23 doxycycline hyclate 100 mg tablet 100 mg PO BID 7 days #14 tabs 08/25/24 Allergies Allergy/AdvReac Type Severity Reaction Status Date / Time Penicillins Allergy Mild Swelling Verified 08/31/24 21:43 Review of Systems Review of Systems: No chest pain or diaphoresis no fever feel somewhat short of breath feels lonely feel sad. No suicidal no homicidal ideation Yes all other systems are reviewed and are negative [facility] Past Medical History Attestation statement: The following information was validated with the patient. Medical History Seizure disorder JOSÉ (obstructive sleep apnea) Delusions Major neurocognitive disorder Chest pain Dyspnea on exertion COVID-19 GERD (gastroesophageal reflux disease) DJD (degenerative joint disease) COPD (chronic obstructive pulmonary disease) Bipolar disorder CTS (carpal tunnel syndrome) Hx of rheumatoid arthritis Diabetic neuropathy Urinary incontinence Aneurysm of middle cerebral artery Pulmonary nodules CHF (congestive heart failure) Palpitations Migraine History of COVID-19 Mild aortic stenosis Asthma Insulin dependent type 2 diabetes mellitus Mixed hyperlipidemia Mood disorder Essential hypertension Surgical History No pertinent past surgical history Hx of cataract surgery H/O: hysterectomy Hx of cholecystectomy History of carpal tunnel release Family History Family History Mother Myocardial infarction Father Myocardial infarction Sister Breast cancer Brother Spleen cancer Social History Social History Household Members: None Housing: Apartment Do you presently have visiting nurse or other home services: Yes ([employer] during the day, none at night) Unable to assess alcohol history related to: Unknown Alcohol intake: never Comment: report given by Cleo rn Patient Tobacco Use Status: Never used Tobacco Tobacco use type: Cigarette Cigarette Packs Per Day: 0.2 Cigarettes Per Day: 4.0 Years Smoked: [id number] Smoked in Last 30 Days: No e-Cigarette/Vaping Use: Never Used Second Hand Smoke Exposure: No Use of substances other than those prescribed or required for medical reasons: No Advance Directives: Yes Advance Directives on File: Yes Advance Directives Date on File: 11/20/23 service: No Current occupational status: retired Sexual orientation: Straight/Heterosexual Physical Exam Vital Signs: Vital Signs: Last Vital Signs Temp 97.2 F 08/31/24 22:26 Pulse 82 08/31/24 22:26 Resp 18 08/31/24 22:26 BP 107/56 L 08/31/24 22:26 Pulse Ox 90 L 08/31/24 22:26 O2 Del Method Room Air 08/31/24 22:26 BMI result Body Mass Index 31.6 Appearance: Alert. Oriented X3. No acute distress. Eyes: Pupils equal, round and reactive to light. ENT: Pharynx normal. Neck: Normal inspection. Neck supple. No lymph nodes noted. No crepitus CVS: Normal heart rate and rhythm. Pulses normal. Normal S1 and S2 Respiratory: No respiratory distress. Breath sounds normal. No Wheezing. No rales Abdomen: Soft and nontender. No rigidity. No distention. good BS x4 Skin: Skin warm and dry. Normal skin color. Normal skin turgor. Extremities: No lower extremity edema. Neurovascular intact to all extremities. No Lacerations. No Rash Neuro: Oriented X 3. No motor deficit. No sensory deficit. Moving all extermities. No slurred speech Medications Administered Discontinued Medications Generic Name Dose Route Start Last Admin Trade Name Freq PRN Reason Stop Dose Admin Lorazepam 0.5 mg 08/31/24 23:59 09/01/24 00:36 Lorazepam 0.5 Mg Tablet PO 09/01/24 00:00 0.5 mg ONCE ONE Administration Medical Decision Making Medical Decision Making [facility] Narrative: My interpretation patient's EKG showed a sinus pattern heart rate is 80 MT QRS QTC normal no acute ST segment elevation noted. Patient's BNP was 33 there is no evidence for congestive heart failure. Troponin x2 sets were negative. Patient has no evidence for blood clots history not consistent with PE patient's white count is normal no evidence for infection hemoglobin is 9.4 this is approximately baseline there is no evidence for anemia patient's electrolytes showed mild dehydration with elevated BUN of 21 creatinine was normal. LFTs are normal troponin is negative x2 sat in the setting of low risk normal EKG atypical history unlikely to have ACS. Will discharge patient home. Patient's chest x-ray per radiology's interpretation showed interstitial lung disease no overt pneumonia. Differential Diagnosis Differential Diagnoses: The differential diagnosis associated with the presentation includes ACS, COPD, pneumonia, anxiety, PE Admission/Observation Consideration of admission/observation: Escalation of care including admission/observation considered Lab Data [facility] Lab Attestation statement: I reviewed the patient's lab results. 08/31/24 22:14 08/31/24 22:14 Labs: Lab Results 08/31/24 09/01/24 Range/Units 22:14 00:26 WBC 7.8 (4.8-10.8) X10*3/uL RBC 3.81 L (4.20-5.50) X10*6/uL Hgb 9.4 L (12.0-16.0) g/dl Hct 30.4 L (37.0-47.0) % MCV 79.8 L (80.0-98.0) fL MCH 24.7 L (27.0-33.0) pg MCHC 30.9 L (31.0-35.0) g/dl RDW 18.0 H (11.0-16.0) % Plt Count 233 (160-400) X10*3/uL MPV 9.9 (9.4-12.3) fL Immature Gran % (Auto) 0.3 (0.0-0.4) % Neut % (Auto) 65.8 (45-73) % Lymph % (Auto) 24.3 (20-40) % [place] % (Auto) 7.7 (2-11) % Eos % (Auto) 1.4 (0-4) % Baso % (Auto) 0.5 (0-2) % Lymph # (Auto) 1.9 (1.2-4.9) X10*3/uL [place] # (Auto) 0.6 (0.1-1.2) X10*3/uL Eos # (Auto) 0.1 (0.0-0.4) X10*3/uL Baso # (Auto) 0.0 (0.0-0.2) X10*3/uL Abs Immat Gran (auto) 0.02 (0.00-0.03) X10*3/uL Absolute Neuts (auto) 5.1 (2.0-8.3) x10*3/uL Absolute Nucleated RBC 0.000 (0.0-0.012) X10*3/uL Nucleated RBC % (auto) 0.0 (0.0-0.2) /100WBC Sodium 139 (135-145) mmol/L Potassium 3.5 (3.3-5.1) mmol/L Chloride 106 (96-108) mmol/L Carbon Dioxide 26 (22-29) mmol/L Anion Gap 11 L (12-20) BUN 21 H (9-16) mg/dL Creatinine 0.67 (0.5-1.4) mg/dL Estim Creat Clear Calc 84.7 Estimated GFR > 60 Random Glucose 93 (60-115) mg/dL Calcium 8.9 (8.4-10.2) mg/dL Magnesium 1.6 (1.6-2.6) mg/dL Total Bilirubin 0.4 (0.0-1.0) mg/dL AST 22 (5-31) U/L ALT 11 (0-31) U/L Alkaline Phosphatase 72 (39-117) U/L Troponin I High Sens 16.7 D 16.9 (<3.5-17.0) ng/L B-Natriuretic Peptide 33 (<100) pg/mL Total Protein 7.1 (6.5-8.0) g/dL Albumin 3.8 (3.5-5.0) g/dL Independent Interpretation I performed an independent interpretation of an: EKG (Sinus heart rate is 80 MT QRS QTC within normal limits is no acute ST segment elevation) and Plain X-Ray (My interpretation patient's chest x-ray is grossly negative) Radiology Impression Discussion of test interpretation with radiology: I have reviewed the radiologist's reading. External Record Review External record reviewed: Inpatient record Chronic Conditions Patient?s care impacted by: Diabetes and Hypertension Social Determinants Patient?s care significantly limited by Social Determinants of Health including: Problems related to primary support group Discharge Plan Discharge Clinical Impression: Anxiety Patient Disposition: Home, Self-Care Instructions: Anxiety (ED) Prescriptions: No Action tgikdabvmx-dzgaxlkzzbklt-[id number] 50-325-40 mg tablet 1 tab PO Q6H PRN (Reason: Headache) atorvastatin 80 mg Tablet 80 mg PO BEDTIME Qty: 0 0RF magnesium oxide 400 mg (241.3 mg magnesium) Tablet 400 mg PO BEDTIME Qty: 30 0RF metoprolol succinate 25 mg Tablet Extended Release 24 Hr 25 mg PO DAILY Qty: 0 0RF Protocol: Hold for SBP/HR < HOLD for SBP < : 90 HOLD for HR < : 60 metformin 500 mg Tablet Extended Release 24 Hr 500 mg PO BID Qty: 60 0RF loratadine 10 mg Tablet 10 mg PO DAILY Qty: 0 0RF montelukast 10 mg Tablet 10 mg PO BEDTIME Qty: 30 0RF sennosides [senna] 8.6 mg tablet 8.6 mg PO DAILY ondansetron HCl 4 mg tablet 4 mg PO Q8H PRN (Reason: nausea) pantoprazole 40 mg tablet,delayed release (DR/EC) 40 mg PO DAILY@0630 docusate sodium 100 mg capsule 100 mg PO BID amitriptyline 150 mg tablet 150 mg PO BEDTIME Rx Instructions: with 50 mg clonazepam 0.5 mg tablet 0.5 mg PO BID PRN (Reason: Anxiety) valproic acid (as sodium salt) 250 mg/5 mL solution 500 mg PO BEDTIME zolpidem 10 mg tablet 10 mg PO BEDTIME naproxen 500 mg tablet 500 mg PO BID duloxetine 20 mg capsule,delayed release(DR/EC) 20 mg PO DAILY Rx Instructions: with 60 mg amitriptyline 50 mg tablet 50 mg PO BEDTIME Rx Instructions: with 150 mg gabapentin 300 mg capsule 300 mg PO TID insulin glargine [Lantus U-100 Insulin] 100 unit/mL solution 35 unit subcut BEDTIME doxycycline hyclate 100 mg tablet 100 mg PO BID 7 Days Qty: 14 0RF (DME) lancets [OneTouch Delica Plus Lancet] 33 gauge misc See Rx Instructions .ROUTE BID Qty: 100 Rx Instructions: As directed (DME) OneTouch Ultra Test Strip See Rx Instructions .ROUTE BID Qty: 10 Rx Instructions: As directed Referrals: Ashwin Arzola III, MD [Primary Care Provider] - 09/03/24 Print Language: Romanian
[2024-09-01 01:35] VITALS: BP 132/57; PULSE 80; RESP 12; TEMP 36.4; O2SAT 95
[2024-09-01 02:20] VITALS: BP 132/57; PULSE 80; RESP 12; TEMP 36.4; O2SAT 95
== END 2024-09-01 02:20 | disposition home or self-care (01) ==
PROVIDERS: Emergency Provider Emergency Medicine Emergency Medical Services; PCP Internal Medicine
DX: F41.9 Anxiety disorder, unspecified (principal); R06.02 Shortness of breath; Z79.899 Other long term (current) drug therapy
CPT/HCPCS: 36415; 71045; 80053; 83735; 83880; 84484; 85025; 93005; 99283; 99284

== ENCOUNTER → 2024-08-31 21:44 | Outpatient (BNV) | payer OTHER, SELFPAY | PROVIDERS: Emergency Provider Emergency Medicine Emergency Medical Services; PCP Internal Medicine; Visit Provider Radiology Diagnostic Radiology | DX: J84.9 Interstitial pulmonary disease, unspecified (principal) | CPT/HCPCS: 71045 ==

== ENCOUNTER → 2024-08-31 21:52 | Outpatient (BNV) | payer OTHER, SELFPAY | PROVIDERS: Emergency Provider Emergency Medicine Emergency Medical Services; PCP Internal Medicine; Visit Provider Internal Medicine Cardiovascular Disease | DX: F41.9 Anxiety disorder, unspecified (principal) | CPT/HCPCS: 93010 ==

== ENCOUNTER 2024-10-26 14:13 | Observation (INO) | payer OTHER, SELFPAY ==
[2024-10-26] VITALS (7 sets, daily range): BP systolic 127–158; BP diastolic 44–76; PULSE 74–109; RESP 10–25; TEMP 36.6–36.8; O2SAT 93–100; BMI 33.5
--- NOTE | ~2024-10-26 | XR_ITS ---
EXAMINATION: XR CHEST 1 VIEW HISTORY: SOB COMPARISON: Comparison is made with the prior examination dated 08/31/2024. FINDINGS: A single AP portable view of the chest performed at 3:04 PM is submitted. The lungs are expanded and clear. There is no pleural effusion, pneumothorax, or pulmonary vascular congestion. Is enlarged. The aorta is calcified. There is degenerative disc disease of the spine. XR/XR chest 1V IMPRESSION: Cardiomegaly. No acute cardiopulmonary abnormality. Electronically signed by: Jerry Steele MD 10/26/2024 03:35 PM [facility]
--- NOTE | ~2024-10-26 | XR_ITS ---
EXAMINATION: XR HAND AND WRIST COMPLETE LEFT HISTORY: pain COMPARISON: There are no prior studies available for comparison. FINDINGS: Three views of the left hand and wrist are submitted. The bones are osteopenic. There is no fracture or dislocation. There is narrowing of the DIP joints. Are vascular calcifications. XR/XR hand wrist LT IMPRESSION: Osteopenia. Narrowing of the DIP joints. No evidence of fracture of the left hand or wrist. Electronically signed by: Jerry Steele MD 10/26/2024 03:28 PM EST
--- NOTE | ~2024-10-26 | XR_ITS ---
EXAMINATION: XR FOREARM 2 VIEWS LEFT HISTORY: pain COMPARISON: There are no prior studies available for comparison. FINDINGS: AP and lateral views of the left forearm are submitted. The bones are osteopenic. There is no fracture or dislocation. The visualized elbow and wrist joint spaces are maintained. The soft tissues are unremarkable. XR/XR forearm LT 2V IMPRESSION: Osteopenia. No evidence of fracture of the left forearm. Electronically signed by: Jerry Steele MD 10/26/2024 03:29 PM PAPA
--- NOTE | ~2024-10-26 | XR_ITS ---
EXAMINATION: XR SHOULDER 2 OR MORE VIEWS RIGHT HISTORY: pain. COMPARISON: Comparison is made with the prior examination dated 05/12/2024. FINDINGS: Three views of the right shoulder are submitted. The bones are osteopenic. There is no fracture or dislocation. There is mild osteoarthritis of the glenohumeral and acromioclavicular joints with osteophyte formation. The soft tissues are unremarkable. XR/XR shoulder RT min 2V IMPRESSION: Osteopenia. Mild osteoarthritis as described. No evidence of fracture of the right shoulder. Electronically signed by: Jerry Steele MD 10/26/2024 03:30 PM PAPA
--- NOTE | 2024-10-26 14:39 | ECG_ITS ---
Test Reason : SOB,ARM PAIN Blood Pressure : */* mmHG Vent. Rate : 92 BPM Atrial Rate : 92 BPM P-R Int : 182 ms QRS Dur : 86 ms QT Int : 366 ms P-R-T Axes : 37 -3 39 degrees QTcB Int : 452 ms Normal sinus rhythm Normal ECG When compared with ECG of 31-Aug-2024 21:52, No significant change was found Referred By: Henok Wilson Electronically Signed By: Michael Cano
--- NOTE | 2024-10-26 14:41 | ED.EXTPRO ---
HPI - Extremity Problem General Chief complaint: Extremity Injury, Upper Stated complaint: SOB, R shoulder/arm injury Time Seen by Provider: 10/26/24 16:05 Source: patient Mode of arrival: ambulatory Limitations: no limitations History of Present Illness ED Provider: dr. Grimes HPI Narrative: 69 year old female PMH: anxiety history of obstructive sleep apnea asthma NSTEMI hypertension hyperlipidemia diabetes who presents to the eR with Chest pain versus extremity pain patient comes to the ER I am English-speaking but I can not understand her very well. Patient states she was pinched by the elevated on her right arm that has pain from her elbow numbness and tingling and some cramping to her left hand. Patient states she is also short of breath with asthma and with it out any relief at home patient has been here before for similar found to have COPD exacerbation with elevated troponin and has since followed up with Cardiology. She states a month ago she injured her back and right side in an elevator. She isn't elevated at her house she denies any falls or injuries to that area since she also has noticed a bump in her left hand which looks like a ganglion cyst. She states she also has some associated chest pain and shortness of breath Related Data Home Medications ?Medication ?Instructions ?Recorded ?Confirmed blood sugar diagnostic (OneTouch #10 ea 09/27/22 10/20/23 Ultra Test strips) lancets 33 gauge (OneTouch Delica #100 ea 09/27/22 10/20/23 Plus Lancet) [id number] 1 tab PO Q6H PRN Headache 10/17/23 10/26/24 50 mg-325 mg-40 mg tablet docusate sodium 100 mg capsule 100 mg PO BID 11/16/23 10/26/24 sennosides 8.6 mg tablet (senna) 8.6 mg PO DAILY 11/16/23 10/26/24 amitriptyline 150 mg tablet 150 mg PO BEDTIME 04/11/24 10/26/24 amitriptyline 50 mg tablet 50 mg PO BEDTIME 04/11/24 10/26/24 clonazepam 0.5 mg tablet 0.5 mg PO BID PRN Anxiety 04/11/24 10/26/24 duloxetine 20 mg capsule,delayed 20 mg PO DAILY 04/11/24 10/26/24 release gabapentin 300 mg capsule 300 mg PO TID 04/11/24 10/26/24 insulin glargine 100 unit/mL 65 unit subcut BEDTIME 04/11/24 10/26/24 subcutaneous solution (Lantus U-100 Insulin) clotrimazole 1 % topical cream 1 appl topical BID 10/26/24 10/26/24 fluticasone fur. 100 mcg-umeclid 1 ea inhalation DAILY 10/26/24 10/26/24 62.5 mcg-vilant 25 mcg inhalat.powder (Trelegy Ellipta) metoclopramide HCl 10 mg tablet 10 mg PO QID 10/26/24 10/26/24 tramadol 50 mg tablet 50 mg PO Q8H PRN Pain 10/26/24 10/26/24 Previous Rx's ?Medication ?Instructions ?Recorded atorvastatin 80 mg tablet 80 mg PO BEDTIME #0 tabs 10/29/23 loratadine 10 mg tablet 10 mg PO DAILY #0 tabs 10/29/23 metoprolol succinate 25 mg 25 mg PO DAILY #0 tabs 10/29/23 tablet,extended release 24 hr montelukast 10 mg tablet 10 mg PO BEDTIME #30 tabs 10/29/23 prednisone 20 mg tablet 40 mg (2 x 20 mg) PO DAILY #10 tabs 10/27/24 Allergies Allergy/AdvReac Type Severity Reaction Status Date / Time Penicillins Allergy Mild Swelling Verified 10/26/24 14:22 Review of Systems Review of Systems: Review of systems: General: Patient denies any fever chills recent illness or falls Musculoskeletal: Musculoskeletal pain to the right upper extremity all over as well as a bump to her left hand Denies back pain or body aches HEENT: denies headache, runny nose, ear pain Respiratory: shortness of breath, cough Cardiovascular:chest pain or palpitations : denies dysuria, frequency Abdomen: no nausea vomiting denies abdominal pain Extremities: no swelling, no pain Skin: no diaphoresis Yes all other systems are reviewed and are negative PMFSH Past Medical History Medical History Seizure disorder JOSÉ (obstructive sleep apnea) Delusions Major neurocognitive disorder Chest pain Dyspnea on exertion COVID-19 GERD (gastroesophageal reflux disease) DJD (degenerative joint disease) COPD (chronic obstructive pulmonary disease) Bipolar disorder CTS (carpal tunnel syndrome) Hx of rheumatoid arthritis Diabetic neuropathy Urinary incontinence Aneurysm of middle cerebral artery Pulmonary nodules CHF (congestive heart failure) Palpitations Migraine History of COVID-19 Mild aortic stenosis Asthma Insulin dependent type 2 diabetes mellitus Mixed hyperlipidemia Mood disorder Essential hypertension Surgical History No pertinent past surgical history Hx of cataract surgery H/O: hysterectomy Hx of cholecystectomy History of carpal tunnel release Family History Family History Mother Myocardial infarction Father Myocardial infarction Sister Breast cancer Brother Spleen cancer Social History Social History Household Members: None Housing: House Do you presently have visiting nurse or other home services: Yes Unable to assess alcohol history related to: Unknown Alcohol intake: never Comment: report given by Cleo menendez Patient Tobacco Use Status: Never used Tobacco Tobacco use type: Cigarette Cigarette Packs Per Day: 0.2 Cigarettes Per Day: 4.0 Years Smoked: 0630-2921 e-Cigarette/Vaping Use: Never Used Second Hand Smoke Exposure: No Advance Directives Date on File: 11/20/23 service: No Current occupational status: retired Sexual orientation: Straight/Heterosexual Physical Exam Vital Signs: Vital Signs: Last Vital Signs Temp 97.6 F 10/27/24 14:52 Pulse 88 10/27/24 14:52 Resp 20 10/27/24 14:52 BP 169/60 H 10/27/24 14:52 Pulse Ox 96 10/27/24 14:52 O2 Del Method Room Air 10/27/24 14:52 BMI result Body Mass Index 33.5 General: Well-appearing well-nourished in no signs of distress HEENT: Normocephalic atraumatic Neck: No signs of JVD, no masses no tenderness or lymphadenopathy Cardiovascular: Regular rate and rhythm Respiratory: Diminished bilaterally Abdomen: Soft nontender no masses Extremities: Normal pedal pulses no signs of edema patient has pain with palpation to her entire right arm left hand does show again cyst it is not red there is no signs of infection to either side Skin: Dry warm no rashes Back: No tenderness full ROM Course Course Course Narrative: RME: 6-year-old female presents to ED for right elbow right shoulder pain after being called and elevated couple of days ago. Patient has secondary complaint shortness of breath and left arm pain tingling. EKG labs x-ray ordered. Reevaluation(s) Reevaluation #1: I discussed the case with Cardiology as well as hospitalist and will admit the patient to Medicine cardiology did not want the patient to get heparin troponin is much more elevated than last time with the patient was on heparin as the workup and the pain normal I did explain that work of breathing is not terrible right now but definitely is not moving much air we will trend the troponins admit to the hospitalist service. Consultations Consultation #1: I did discuss the case with Dr. Cano for admission and heparin administration. Time: 16:21 Medications Administered Discontinued Medications Generic Name Dose Route Start Last Admin Trade Name Freq PRN Reason Stop Dose Admin Acetaminophen 650 mg 10/26/24 16:36 10/26/24 16:54 Acetaminophen 325 Mg Tablet PO 10/26/24 16:37 650 mg ONCE ONE Administration Albuterol/Ipratropium 3 ml 10/26/24 20:00 10/27/24 13:41 Albuterol/Iprat 2.5/0.5mg 3 Ml Ampul.Neb INHALE Not Given RQ6H WHILE AWAKE ISIAH Aspirin 324 mg 10/26/24 16:36 10/26/24 16:54 Aspirin 81 Mg Tab.Chew PO 10/26/24 16:37 324 mg ONCE ONE Administration Atorvastatin Calcium 80 mg 10/26/24 21:00 10/26/24 22:58 Atorvastatin Calcium 80 Mg Tablet PO 80 mg BEDTIME ISIAH Administration Clonazepam 0.5 mg 10/26/24 17:29 10/27/24 04:53 Clonazepam 0.5 Mg Tablet PO 0.5 mg BID PRN Administration anxiety/restlessness Albuterol Sulfate 2.5 mg/ 0 mg 10/26/24 16:34 10/26/24 16:38 Albuterol/Ipratropium 3 ml INHALE 10/26/24 16:35 1 dose ONCE ONE Administration Duloxetine HCl 20 mg 10/27/24 09:00 10/27/24 09:47 Duloxetine Hcl 20 Mg Capsule. PO 20 mg DAILY ISIAH Administration Enoxaparin Sodium 40 mg 10/26/24 17:00 10/26/24 18:31 Enoxaparin Sodium 40 Mg/0.4 Ml Syringe SUBCUT 40 mg Q24H ISIAH Administration Fluticasone/Umeclidinium/Vilanterol 1 puff 10/27/24 08:00 10/27/24 08:54 Fluticasone/Umeclidinium/Vilanterol 100/62.03/06 Blst.W.Dev INHALE Not Given RDAILY [facility] Gabapentin 300 mg 10/27/24 09:00 10/27/24 09:47 Gabapentin 300 Mg Capsule PO 300 mg TID ISIAH Administration Insulin Glargine 20 unit 10/26/24 21:00 10/26/24 22:58 Insulin Glargine,Hum.Rec.Anlog 100 Unit/Ml 10 Ml Vial SUBCUT 20 unit BEDTIME ISIAH Administration Insulin Human Lispro 0 unit 10/26/24 21:00 10/27/24 13:05 Insulin Lispro 100 Unit/Ml 3 Ml Vial SUBCUT 4 unit QIDACHS [facility] Administration Protocol Loratadine 10 mg 10/27/24 09:00 10/27/24 09:47 Loratadine 10 Mg Tablet PO 10 mg DAILY ISIAH Administration Methylprednisolone Sodium Succinate 125 mg 10/26/24 16:19 10/26/24 16:54 Methylprednisolone Sod Succ 125 Mg/2 Ml Vial IVPUSH 10/26/24 16:20 125 mg ONCE ONE Administration Metoprolol Succinate 25 mg 10/27/24 09:00 10/27/24 08:11 Metoprolol Succinate Er 25 Mg Tab.Er.24h PO 25 mg DAILY ISIAH Administration Protocol Omeprazole 20 mg 10/26/24 17:25 10/27/24 06:47 Omeprazole 20 Mg Capsule.Dr PO 20 mg BID@0630,1630 [facility] Administration Prednisone 40 mg 10/27/24 09:00 10/27/24 08:11 Prednisone 20 Mg Tablet PO 40 mg DAILY ISIAH Administration Senna 8.6 mg 10/27/24 09:00 10/27/24 09:47 Sennosides 8.6 Mg Tablet PO 8.6 mg DAILY ISIAH Administration Sodium Chloride 3 ml 10/27/24 00:00 10/27/24 08:11 0.9 % Sodium Chloride Flush 3 Ml Syringe IVFLUSH 3 ml QSHIFT [facility] Administration Valproic Acid 500 mg 10/26/24 21:00 10/27/24 01:03 Valproic Acid 250 Mg Capsule PO 500 mg BEDTIME ISIAH Administration Medical Decision Making Medical Decision Making [facility] Narrative: Patient had labs sent and shows an elevated troponin patient is short of breath will give breathing treatments Solu-Medrol I will discuss the case with Cardiology as the patient has been seen by the modular set crew member on-call in the past. Differential Diagnosis Differential Diagnoses: The differential diagnosis associated with the presentation includes Arm pain trauma ACS COPD exacerbation Admission/Observation Consideration of admission/observation: Escalation of care including admission/observation considered Consult Healthcare Provider Management of the patient was discussed with: Hospitalist and Auto Vinyl Top Installer Lab Data MDM Lab Attestation statement: I reviewed the patient's lab results. 10/26/24 14:53 10/27/24 04:12 Labs: Lab Results 10/26/24 Range/Units 14:53 WBC 5.1 (4.8-10.8) X10*3/uL RBC 3.82 L (4.20-5.50) X10*6/uL Hgb 9.3 L (12.0-16.0) g/dl Hct 31.3 L (37.0-47.0) % MCV 81.9 (80.0-98.0) fL MCH 24.3 L (27.0-33.0) pg MCHC 29.7 L (31.0-35.0) g/dl RDW 18.0 H (11.0-16.0) % Plt Count 241 (160-400) X10*3/uL MPV 10.6 (9.4-12.3) fL Immature Gran % (Auto) 0.2 (0.0-0.4) % Neut % (Auto) 71.6 (45-73) % Lymph % (Auto) 18.5 L (20-40) % [place] % (Auto) 6.7 (2-11) % Eos % (Auto) 2.6 (0-4) % Baso % (Auto) 0.4 (0-2) % Lymph # (Auto) 0.9 L (1.2-4.9) X10*3/uL [place] # (Auto) 0.3 (0.1-1.2) X10*3/uL Eos # (Auto) 0.1 (0.0-0.4) X10*3/uL Baso # (Auto) 0.0 (0.0-0.2) X10*3/uL Abs Immat Gran (auto) 0.01 (0.00-0.03) X10*3/uL Absolute Neuts (auto) 3.7 (2.0-8.3) x10*3/uL Absolute Nucleated RBC 0.000 (0.0-0.012) X10*3/uL Nucleated RBC % (auto) 0.0 (0.0-0.2) /100WBC Sodium 143 (135-145) mmol/L Potassium 3.3 (3.3-5.1) mmol/L Chloride 110 H (96-108) mmol/L Carbon Dioxide 25 (22-29) mmol/L Anion Gap 11 L (12-20) BUN 9 (9-16) mg/dL Creatinine 0.63 (0.5-1.4) mg/dL Estim Creat Clear Calc 83.0 Estimated GFR > 60 Random Glucose 205 H (60-115) mg/dL Calcium 8.3 L D (8.4-10.2) mg/dL Total Bilirubin 0.2 (0.0-1.0) mg/dL AST 23 (5-31) U/L ALT 10 (0-31) U/L Alkaline Phosphatase 75 (39-117) U/L Troponin I High Sens 119.3 H* D (<3.5-17.0) ng/L B-Natriuretic Peptide 164 H (<100) pg/mL Total Protein 6.5 (6.5-8.0) g/dL Albumin 3.4 L (3.5-5.0) g/dL Influenza Type A (PCR) NEGATIVE (Negative) Influenza Type B (PCR) NEGATIVE (Negative) RSV RNA Qual (PCR) NEGATIVE (Negative) SARS-CoV-2 RNA (RT-PCR) NEGATIVE (Negative) Independent Interpretation I performed an independent interpretation of an: EKG and Plain X-Ray External Record Review External record reviewed: Inpatient record, Office record, Outpatient record, Prior outpatient labs, Prior outpatient radiology and Outside ED record Chronic Conditions Patient?s care impacted by: Diabetes and Hypertension Core Measures AMI core measures followed: Yes Critical Care Time Critical Care Time Critical Care Time: Yes Total Critical Care Time: 35 Attestation: 69-year-old female with NSTEMI and COPD exacerbation requiring multiple re-evaluations for her breathing as well as discussion of the case with Cardiology and ultimate admission to the hospitalist service consideration of heparin Discharge Plan Discharge Clinical Impression: Asthma with exacerbation, NSTEMI (non-ST elevated myocardial infarction), Ganglion cyst of finger of left hand, Arm pain, right Chest pain Qualifiers: Chest pain type: unspecified Qualified Code(s): R07.9 - Chest pain, unspecified Patient Disposition: Admitted As Inpatient Interventions: ED Discharge Assessment Last Done: 10/27/24 14:52 Discharge Date/Time: 10/27/24 15:02
[2024-10-26 14:58] LABS: MANUAL DIFF FLAG NO
[2024-10-26 15:01] LABS: Basophils Percent Auto 0.4 % (0-2); Eosinophils Absolute Auto 0.1 X10*3/uL (0.0-0.4); Eosinophils Percent Auto 2.6 % (0-4); Hematocrit 31.3 % (37.0-47.0); Hemoglobin 9.3 g/dl (12.0-16.0); Imm Gran Abs Auto 0.01 X10*3/uL (0.00-0.03); Imm Gran Pct Auto 0.2 % (0.0-0.4); Lymphocytes Absolute Auto 0.9 X10*3/uL (1.2-4.9); Lymphocytes Percent Auto 18.5 % (20-40); Mean Corpuscular HGB Conc 29.7 g/dl (31.0-35.0); Mean Corpuscular Hemoglobin 24.3 pg (27.0-33.0); Mean Corpuscular Volume 81.9 fL (80.0-98.0); Mean Platelet Volume 10.6 fL (9.4-12.3); Monocytes Absolute Auto 0.3 X10*3/uL (0.1-1.2); Monocytes Percent Auto 6.7 % (2-11); Neutrophils Absolute Auto 3.7 x10*3/uL (2.0-8.3); Neutrophils Percent Auto 71.6 % (45-73); Platelet Count 241 X10*3/uL (160-400); Red Blood Count 3.82 X10*6/uL (4.20-5.50); White Blood Count 5.1 X10*3/uL (4.8-10.8)
[2024-10-26 15:30] LABS: Alanine Aminotransferase 10 U/L (0-31); Albumin Level 3.4 g/dL (3.5-5.0); Anion Gap 11 (12-20); Aspartate Amino Transferase 23 U/L (5-31); Bilirubin Total 0.2 mg/dL (0.0-1.0); Blood Urea Nitrogen 9 mg/dL (9-16); Calcium 8.3 mg/dL (8.4-10.2); Carbon Dioxide 25 mmol/L (22-29); Chloride 110 mmol/L (96-108); Estimated Glomerular Filt Rate > 60; Glucose Random 205 mg/dL (60-115); Potassium 3.3 mmol/L (3.3-5.1); Sodium 143 mmol/L (135-145); Total Protein 6.5 g/dL (6.5-8.0)
[2024-10-26 15:31] LABS: B Type Natriuretic Peptide 164 pg/mL (<100)
[2024-10-26 15:40] LABS: Influenza A PCR NEGATIVE (Negative); Influenza B PCR NEGATIVE (Negative); Resp Syncy Virus RNA Qual PCR NEGATIVE (Negative); SARS COV2 PCR INHOUSE NEGATIVE (Negative)
[2024-10-26 15:48] LABS: Troponin-I High Sensitivity 119.3 ng/L (<3.5-17.0)
[2024-10-26 16:22] LABS: Alkaline Phosphatase 75 U/L (39-117)
[2024-10-26] MEDS: Albuterol Sulfate 2.5 MG, Albuterol/Iprat 2.5/0.5MG 3 ML 3 ML INHALE (16:38)
[2024-10-26] MEDS: methylPREDNISolone Sod Succ 125 MG/2 ML VIAL IVPUSH (16:54)
[2024-10-26] MEDS: Acetaminophen 325 MG TABLET 650 MG PO (16:54)
[2024-10-26] MEDS: Aspirin 81 MG TAB.CHEW 324 MG PO (16:54)
--- NOTE | 2024-10-26 16:56 | PM.IMHP ---
History of Present Illness Date of Service: 10/26/24 Chief Complaint: chest pain, wheezing A 69 years old lady with PMH of DMII, CVA, HLD, JOSÉ, HTN, COPD among others presents to the hospital with chest tightness and wheezing. [place] speaker. The patient report her right arm got stuck in a closing elevator door this morning causing pain from elbow to shoulder but no fall and thats why she came to the hospital. She has been feeling chest pain and heaviness, central with radiation to her back for the last 3 days. no change in pain for the last 3 day. no clear relieving or aggrevating factors. she also reports difficulty breathing and SOB for the last 2 days. No fever, chills, palpitations, nausea, vomiting, diarrhea or urinary symptoms. she has been having wheezes on\off with no cough or recent illness. uses home inhaler with improvement. In ED she was noted to have wheezes and received treatment for it. EKG with no acute ST\T wave changes. first Trop of 119.3 pending repeat. case discussed with cardiology who did not feel the need to start Heparin drip. received ASA and admitted for observation. Review of Systems Review of Systems: No fever, chills or weakness reporting chest pain, no palpitation mild shortness of breath no coughing but has wheezes No abdominal pain, nausea or vomiting No urinary symptoms No any rash or wounds PMFSH Medical History Seizure disorder JOSÉ (obstructive sleep apnea) Delusions Major neurocognitive disorder Chest pain Dyspnea on exertion COVID-19 GERD (gastroesophageal reflux disease) DJD (degenerative joint disease) COPD (chronic obstructive pulmonary disease) Bipolar disorder CTS (carpal tunnel syndrome) Hx of rheumatoid arthritis Diabetic neuropathy Urinary incontinence Aneurysm of middle cerebral artery Pulmonary nodules CHF (congestive heart failure) Palpitations Migraine History of COVID-19 Mild aortic stenosis Asthma Insulin dependent type 2 diabetes mellitus Mixed hyperlipidemia Mood disorder Essential hypertension Family History Mother Myocardial infarction Father Myocardial infarction Sister Breast cancer Brother Spleen cancer Surgical History No pertinent past surgical history Hx of cataract surgery H/O: hysterectomy Hx of cholecystectomy History of carpal tunnel release Social History Household Members: None Housing: Apartment Do you presently have visiting nurse or other home services: Yes ([employer] during the day, none at night) Unable to assess alcohol history related to: Unknown Alcohol intake: never Comment: report given by Cleo menendez Patient Tobacco Use Status: Never used Tobacco Tobacco use type: Cigarette Cigarette Packs Per Day: 0.2 Cigarettes Per Day: 4.0 Years Smoked: 2429-3240 e-Cigarette/Vaping Use: Never Used Second Hand Smoke Exposure: No Advance Directives: Yes Advance Directives on File: Yes Advance Directives Date on File: 11/20/23 Do you have a plan to hurt others: No Plan service: No Current occupational status: retired Sexual orientation: Straight/Heterosexual Meds Allergies Allergy/AdvReac Type Severity Reaction Status Date / Time Penicillins Allergy Mild Swelling Verified 10/26/24 14:22 Home Medications ?Medication ?Instructions ?Recorded ?Confirmed ?Last Taken ?Type blood sugar diagnostic ([employer]Touch #10 ea 09/27/22 10/20/23 12/15/22 History Ultra Test strips) lancets 33 gauge ([employer]Touch Delica #100 ea 09/27/22 10/20/23 12/15/22 History Plus Lancet) [id number]-[id number]-posenpfi 1 tab PO Q6H PRN Headache 10/17/23 05/13/24 Unknown History 50 mg-325 mg-40 mg tablet docusate sodium 100 mg capsule 100 mg PO BID 11/16/23 05/13/24 Unknown History ondansetron HCl 4 mg tablet 4 mg PO Q8H PRN nausea 11/16/23 05/12/24 Unknown History pantoprazole 40 mg tablet,delayed 40 mg PO DAILY@0630 11/16/23 05/12/24 Unknown History release sennosides 8.6 mg tablet (senna) 8.6 mg PO DAILY 11/16/23 05/13/24 Unknown History amitriptyline 150 mg tablet 150 mg PO BEDTIME 04/11/24 05/13/24 Unknown History amitriptyline 50 mg tablet 50 mg PO BEDTIME 04/11/24 05/13/24 Unknown History clonazepam 0.5 mg tablet 0.5 mg PO BID PRN Anxiety 04/11/24 05/13/24 Unknown History duloxetine 20 mg capsule,delayed 20 mg PO DAILY 04/11/24 05/12/24 Unknown History release gabapentin 300 mg capsule 300 mg PO TID 04/11/24 05/13/24 Unknown History insulin glargine 100 unit/mL 35 unit subcut BEDTIME 04/11/24 05/12/24 Unknown History subcutaneous solution (Lantus U-100 Insulin) naproxen 500 mg tablet 500 mg PO BID 04/11/24 05/12/24 Unknown History valproic acid (as sodium salt) 250 500 mg PO BEDTIME 04/11/24 05/13/24 Unknown History mg/5 mL oral solution zolpidem 10 mg tablet 10 mg PO BEDTIME 04/11/24 05/12/24 Unknown History Physical Exam Vital Signs and Narrative: Vital Signs: Last Vital Signs Temp 97.9 F 10/26/24 16:00 Pulse 81 10/26/24 16:38 Resp 16 10/26/24 16:38 BP 158/61 H 10/26/24 16:00 Pulse Ox 95 10/26/24 16:00 O2 Del Method Room Air 10/26/24 16:00 BMI result Body Mass Index 33.5 Const: Other: Constitutional : Awake, interactive, not in distress Neck : Normal inspection, Supple Cardiovascular : RRR, no JVP, no lower extremity edema Respiratory : good bilateral air entry, no crackles, wheezes or rhonchi Gastrointestinal: soft, lax, Normal bowel sounds, Non tender Skin : Warm, Dry Neurological : Alert & oriented x3, No focal deficit Results Labs 10/26/24 14:53 10/26/24 14:53 Labs: Laboratory Results - last 24 hr 10/26/24 14:53 MCV 81.9 MCH 24.3 L MCHC 29.7 L RDW 18.0 H Plt Count 241 MPV 10.6 Immature Gran % (Auto) 0.2 Neut % (Auto) 71.6 Lymph % (Auto) 18.5 L [place] % (Auto) 6.7 Eos % (Auto) 2.6 Baso % (Auto) 0.4 Lymph # (Auto) 0.9 L [place] # (Auto) 0.3 Eos # (Auto) 0.1 Baso # (Auto) 0.0 Abs Immat Gran (auto) 0.01 Absolute Neuts (auto) 3.7 Absolute Nucleated RBC 0.000 Nucleated RBC % (auto) 0.0 Anion Gap 11 L Estim Creat Clear Calc 83.0 Estimated GFR > 60 Random Glucose 205 H Calcium 8.3 L D Total Bilirubin 0.2 AST 23 ALT 10 Alkaline Phosphatase 75 Troponin I High Sens 119.3 H* D B-Natriuretic Peptide 164 H Total Protein 6.5 Albumin 3.4 L Influenza Type A (PCR) NEGATIVE Influenza Type B (PCR) NEGATIVE RSV RNA Qual (PCR) NEGATIVE SARS-CoV-2 RNA (RT-PCR) NEGATIVE Imaging Radiologist's Impressions: Impressions Chest X-Ray 10/26/24 14:50 IMPRESSION: Cardiomegaly. No acute cardiopulmonary abnormality. Electronically signed by: Jerry Steele MD 10/26/2024 03:35 PM EST RP Shoulder X-Ray 10/26/24 14:50 IMPRESSION: Osteopenia. Mild osteoarthritis as described. No evidence of fracture of the right shoulder. Electronically signed by: Jerry Steele MD 10/26/2024 03:30 PM EST RP Forearm X-Ray 10/26/24 15:07 IMPRESSION: Osteopenia. No evidence of fracture of the left forearm. Electronically signed by: Jerry Steele MD 10/26/2024 03:29 PM EST RP Hand/Wrist X-Ray 10/26/24 15:07 IMPRESSION: Osteopenia. Narrowing of the DIP joints. No evidence of fracture of the left hand or wrist. Electronically signed by: Jerry Steele MD 10/26/2024 03:28 PM EST RP Assessment and Plan (1) Chest pain: Qualifiers: Chest pain type: unspecified Qualified Code(s): R07.9 - Chest pain, unspecified Status: Acute (2) Asthma with exacerbation: Status: Acute Plan A 69 years old lady with PMH of DMII, CVA, HLD, JOSÉ, HTN, COPD among others presents to the hospital with chest tightness and wheezing. [place] speaker. Chest pain, elevated Trop I 3 days of stable chest pain No EKG changes to suggest ACS Trop I of 119, to repeat Cardiology consult keep on Tele ASA, Statin if Trop increasing to start LMWH\Heparin COPD\asthma w exacerbation clear lungs on exam PRN Albuterol Prednosine DMII SSI, POC , diabetic diet Lantus Chronic pain Gabapentin, Duloxetine, Amitryptilline Mood disorder Clonazepam PRN DVT PPx Lovenox Quality Stroke Does the patient have a stroke diagnosis?: No VTE Prior VTE?: No VTE Risk Level:: Medical - moderate - high VTE Device Contraindication: Treatment Not Indicated VTE Drug Contraindication: N/A - Med Ordered
[2024-10-26] MEDS: Omeprazole 20 MG CAPSULE.DR PO (18:31)
[2024-10-26] MEDS: Enoxaparin Sodium 40 MG/0.4 ML SYRINGE SUBCUT (18:31)
[2024-10-26 19:28] LABS: Troponin-I High Sensitivity 127.2 ng/L (<3.5-17.0)
--- NOTE | 2024-10-26 20:52 | PHA.MEDREC ---
Pharmacy Consult ? Medication Reconciliation Pharmacy has completed the medication reconciliation. Spoke with patient utilizing an radio interference supervisor and the patient states she has a nurse that comes from a facility that she did not know at the time and she states the nurse there gives her all her medications and keep track on that. I asked if there was someone else who we can call I.E patients sister who is patients EC but she states her sister wouldn't know and that the nurse only has the knowledge of those. I asked the patient about her Lantus U-100 Insulin to see if she would know anything on that and she claims she is injecting 65 units at bedtime of that, looking in claims she filled the Lantus 09/14 for 46 days. I utilized claims from patients pharmacy history to confirm the rest of the patients medications.
--- NOTE | 2024-10-26 20:59 | PHA.MEDREC ---
Addendum entered by Amanda Durham [facility] 10/27/24 09:50: Called [facility] [phone], the direction of lantus is 30 units daily per Hannah (manager pharmacy). Notified Dr Roger of the difference between rx dose and actual dose pt is using. Addendum entered by hSay Saucedo 10/26/24 21:01: reviewed Original Note: Pharmacy Consult ? Medication Reconciliation Pharmacy has completed the medication reconciliation. Spoke with patient utilizing an wood ski maker and the patient states she has a nurse that comes from a facility that she did not know at the time and she states the nurse there gives her all her medications and keep track on that. I asked if there was someone else who we can call I.E patients sister who is patients EC but she states her sister wouldn't know and that the nurse only has the knowledge of those. I asked the patient about her Lantus U-100 Insulin to see if she would know anything on that and she claims she is injecting 65 units at bedtime of that, looking in claims she filled the Lantus 09/14 for 46 days. I utilized claims from patients pharmacy history to confirm the rest of the patients medications.
--- NOTE | 2024-10-26 21:31 | PC.NURSE ---
Admission completed at this time. [facility] nurse notified
[2024-10-26] MEDS: Albuterol/Iprat 2.5/0.5MG 3 ML AMPUL.NEB INHALE (21:42)
[2024-10-26 22:54] LABS: Glucose, Whole Blood 178 mg/dL (60-115)
[2024-10-26] MEDS: Insulin Glargine,Hum.rec.anlog 100 UNIT/ML 10 ML VIAL 20 UNIT SUBCUT (22:58)
[2024-10-26] MEDS: Atorvastatin Calcium 80 MG TABLET PO (22:58)
[2024-10-26] MEDS: Insulin Lispro 100 UNIT/ML 3 ML VIAL SUBCUT (22:58)
[2024-10-27] MEDS: 0.9 % Sodium Chloride Flush 3 ML SYRINGE IVFLUSH ×2 (01:03→08:11)
[2024-10-27] MEDS: Valproic Acid 250 MG CAPSULE 500 MG PO (01:03)
[2024-10-27 03:32] VITALS: BP 141/67; PULSE 89; RESP 16; TEMP 36.8; O2SAT 94
[2024-10-27] MEDS: clonazePAM 0.5 MG TABLET PO (04:53)
[2024-10-27 05:14] LABS: Anion Gap 17 (12-20); Blood Urea Nitrogen 11 mg/dL (9-16); Calcium 9.3 mg/dL (8.4-10.2); Carbon Dioxide 20 mmol/L (22-29); Chloride 105 mmol/L (96-108); Creatinine Clr Calc Pharmacy 69.8; Estimated Glomerular Filt Rate > 60; Glucose Random 331 mg/dL (60-115); Potassium 4.2 mmol/L (3.3-5.1); Sodium 138 mmol/L (135-145)
[2024-10-27 05:19] LABS: Troponin-I High Sensitivity 112.5 ng/L (<3.5-17.0)
[2024-10-27 05:35] VITALS: BP 155/51; PULSE 90; RESP 13; TEMP 36.8; O2SAT 97
[2024-10-27] MEDS: Omeprazole 20 MG CAPSULE.DR PO (06:47)
[2024-10-27 07:27] LABS: Glucose, Whole Blood 223 mg/dL (60-115)
[2024-10-27] MEDS: Insulin Lispro 100 UNIT/ML 3 ML VIAL SUBCUT ×2 (07:33→13:05)
[2024-10-27 07:53] VITALS: PULSE 90; RESP 13; O2SAT 97
[2024-10-27] MEDS: Albuterol/Iprat 2.5/0.5MG 3 ML AMPUL.NEB INHALE (07:53)
[2024-10-27 08:11] VITALS: BP 184/43; PULSE 95; RESP 16; TEMP 36.6; O2SAT 95
[2024-10-27] MEDS: predniSONE 20 MG TABLET 40 MG PO (08:11)
[2024-10-27] MEDS: Metoprolol Succinate ER 25 MG TAB.ER.24H PO (08:11)
--- NOTE | 2024-10-27 09:33 | MHC.CM.PN ---
CM met with Patient at bedside with the assist of a [facility] [employer] [facility] and addressed MEDINA with Patient (original was given to Patient and a copy will be placed on the chart). 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 Patient's goal is to return home and resume said services; CM has initiated and will follow for dc planning. PCP is Dr. Ashwin Arzola and Grandson/Dudley will transport to home. HCP is /Charla.
[2024-10-27] MEDS: Loratadine 10 MG TABLET PO (09:47)
[2024-10-27] MEDS: Gabapentin 300 MG CAPSULE PO (09:47)
[2024-10-27] MEDS: DULoxetine HCl 20 MG CAPSULE.DR PO (09:47)
[2024-10-27] MEDS: Sennosides 8.6 MG TABLET PO (09:47)
--- NOTE | 2024-10-27 10:21 | PM.CNCAR ---
History of Present Illness History of Present Illness Date of Service: 10/27/24 Requesting physician: Timmy Roger Chief complaint: Elevated troponin Narrative: [age] year female who has background history of asthma with previous exacerbation and chest discomfort with mildly elevated troponin levels in the past. She was planned to undergo stress testing but it appears she never had any testing in the past. She has background of hypertension, hyperlipidemia and insulin-dependent diabetes. She is presenting with chest tightness and shortness of breath. She was treated as COPD/asthma exacerbation with improvement in his symptoms. She has mildly elevated troponin levels which are quite flat and there is no rise and fall in troponin level. ECG is showing no dynamic changes. She is pain-free and breathing has improved significantly. Denying any active symptoms currently. Blood pressure is elevated. Previous echocardiogram and testing reviewed. Labs reviewed. [facility] Past Medical History Medical History Seizure disorder JOSÉ (obstructive sleep apnea) Delusions Major neurocognitive disorder Chest pain Dyspnea on exertion COVID-19 GERD (gastroesophageal reflux disease) DJD (degenerative joint disease) COPD (chronic obstructive pulmonary disease) Bipolar disorder CTS (carpal tunnel syndrome) Hx of rheumatoid arthritis Diabetic neuropathy Urinary incontinence Aneurysm of middle cerebral artery Pulmonary nodules CHF (congestive heart failure) Palpitations Migraine History of COVID-19 Mild aortic stenosis Asthma Insulin dependent type 2 diabetes mellitus Mixed hyperlipidemia Mood disorder Essential hypertension Family History Family History Mother Myocardial infarction Father Myocardial infarction Sister Breast cancer Brother Spleen cancer Surgical History Surgical History No pertinent past surgical history Hx of cataract surgery H/O: hysterectomy Hx of cholecystectomy History of carpal tunnel release Social History Social History Household Members: None Housing: House Do you presently have visiting nurse or other home services: Yes Unable to assess alcohol history related to: Unknown Alcohol intake: never Comment: report given by Cleo menendez Patient Tobacco Use Status: Never used Tobacco Tobacco use type: Cigarette Cigarette Packs Per Day: 0.2 Cigarettes Per Day: 4.0 Years Smoked: [id number] Smoked in Last 30 Days: No e-Cigarette/Vaping Use: Never Used Patient Interested in Nicotine Replacement: No Patient Given Instructions on How to Stop Smoking: No Second Hand Smoke Exposure: No Use of substances other than those prescribed or required for medical reasons: No Currently Displaying Signs/Symptoms of Drug Intoxication Withdrawal: No Any prior treatment program specific to substance use: No Have you been hit, kicked, punched, or otherwise hurt by someone within the past year? If so, by whom?: No Do you feel safe in your current relationship?: Yes Is there a partner from a previous relationship who is making you feel unsafe now?: No Are you made to feel afraid or neglected: No Spiritual Healthcare Practices: Gnosticism Advance Directives: Yes (Dudley aguila [facility] [phone]) Advance Directives Information Provided: No Advance Directives on File: Yes Advance Directives Date on File: 11/20/23 Do you have a plan to hurt others: No Plan Recently lost weight without trying: Unsure Eating poorly because of decreased appetite: Yes Nutrition Risks: Poor intake 0-25% >4 days Patient : No : No Poor oral hygiene: No service: No Current occupational status: retired Sexual orientation: Straight/Heterosexual Meds Allergies Allergy/AdvReac Type Severity Reaction Status Date / Time Penicillins Allergy Mild Swelling Verified 10/26/24 14:22 Active Medications: Current Medications Acetaminophen (Acetaminophen 325 Mg Tablet) 650 mg PO Q6H PRN PRN Reason: Pain, Mild 1-3,fever,headache Albuterol Sulfate (Albuterol Sulfate (0.083%) 2.5 Mg/3 Ml Vial.Neb) 2.5 mg INHALE Q4H PRN PRN Reason: Wheezing Albuterol/Ipratropium (Albuterol/Iprat 2.5/0.5mg 3 Ml Ampul.Neb) 3 ml INHALE RQ6H WHILE AWAKE ISIAH Last Admin: 10/27/24 07:53 Dose: 3 ml Amitriptyline HCl (Amitriptyline Hcl 50 Mg Tablet) 150 mg PO BEDTIME ISIAH Atorvastatin Calcium (Atorvastatin Calcium 80 Mg Tablet) 80 mg PO BEDTIME ISIAH Last Admin: 10/26/24 22:58 Dose: 80 mg Benzonatate (Benzonatate 100 Mg Capsule) 100 mg PO TID PRN PRN Reason: Cough Calcium Carbonate (Calcium Carbonate 750 Mg Tab.Chew) 750 mg PO Q4H PRN PRN Reason: Heartburn Clonazepam (Clonazepam 0.5 Mg Tablet) 0.5 mg PO BID PRN PRN Reason: anxiety/restlessness Last Admin: 10/27/24 04:53 Dose: 0.5 mg Duloxetine HCl (Duloxetine Hcl 20 Mg Capsule.Dr) 20 mg PO DAILY [facility] Last Admin: 10/27/24 09:47 Dose: 20 mg Enoxaparin Sodium (Enoxaparin Sodium 40 Mg/0.4 Ml Syringe) 40 mg SUBCUT Q24H [facility] Last Admin: 10/26/24 18:31 Dose: 40 mg Fluticasone/Umeclidinium/Vilanterol (Fluticasone/Umeclidinium/Vilanterol 100/62.5/ Blst.W.Dev) 1 puff INHALE RDAILY [facility] Last Admin: 10/27/24 08:54 Dose: Not Given Gabapentin (Gabapentin 300 Mg Capsule) 300 mg PO TID [facility] Last Admin: 10/27/24 09:47 Dose: 300 mg Insulin Glargine (Insulin Glargine,Hum.Rec.Anlog 100 Unit/Ml 10 Ml Vial) 20 unit SUBCUT BEDTIME [facility] Last Admin: 10/26/24 22:58 Dose: 20 unit Insulin Glargine (Insulin Glargine,Hum.Rec.Anlog 100 Unit/Ml 10 Ml Vial) 65 unit SUBCUT BEDTIME [facility] Insulin Human Lispro (Insulin Lispro 100 Unit/Ml 3 Ml Vial) 0 unit SUBCUT QIDACHS [facility]; Protocol Last Admin: 10/27/24 07:33 Dose: 4 unit Loratadine (Loratadine 10 Mg Tablet) 10 mg PO DAILY [facility] Last Admin: 10/27/24 09:47 Dose: 10 mg Magnesium Hydroxide (Milk Of Magnesia 30 Ml Oral.Susp) 30 ml PO DAILY PRN PRN Reason: Constipation Melatonin (Melatonin 3 Mg Tablet) 6 mg PO BEDTIME PRN PRN Reason: Insomnia Metoprolol Succinate (Metoprolol Succinate Er 25 Mg Tab.Er.24h) 25 mg PO DAILY [facility]; Protocol Last Admin: 10/27/24 08:11 Dose: 25 mg Montelukast Sodium (Montelukast Sodium 10 Mg Tablet) 10 mg PO BEDTIME [facility] Nitroglycerin (Nitroglycerin 0.4 Mg Tab.Subl) 0.4 mg SUBLINGUAL Q5MX3 PRN PRN Reason: Chest Pain Omeprazole (Omeprazole 20 Mg Capsule.Dr) 20 mg PO BID@0630,1630 [facility] Last Admin: 10/27/24 06:47 Dose: 20 mg Ondansetron HCl (Ondansetron Hcl 4 Mg/2 Ml Vial) 4 mg IVPUSH Q8H PRN PRN Reason: Nausea and Vomiting Prednisone (Prednisone 20 Mg Tablet) 40 mg PO DAILY [facility] Last Admin: 10/27/24 08:11 Dose: 40 mg Senna (Sennosides 8.6 Mg Tablet) 8.6 mg PO DAILY [facility] Last Admin: 10/27/24 09:47 Dose: 8.6 mg Sodium Chloride (0.9 % Sodium Chloride Flush 3 Ml Syringe) 3 ml IVFLUSH QSHIFT [facility] Last Admin: 10/27/24 08:11 Dose: 3 ml Valproic Acid (Valproic Acid 250 Mg Capsule) 500 mg PO BEDTIME [facility] Last Admin: 10/27/24 01:03 Dose: 500 mg Home Medications ?Medication ?Instructions ?Recorded ?Confirmed ?Last Taken ?Type blood sugar diagnostic (SkritterTouch #10 ea 09/27/22 10/20/23 12/15/22 History Ultra Test strips) lancets 33 gauge (SkritterTouch Delica #100 ea 09/27/22 10/20/23 12/15/22 History Plus Lancet) [id number] 1 tab PO Q6H PRN Headache 10/17/23 10/26/24 Unknown History 50 mg-325 mg-40 mg tablet docusate sodium 100 mg capsule 100 mg PO BID 11/16/23 10/26/24 10/26/24 History sennosides 8.6 mg tablet (senna) 8.6 mg PO DAILY 11/16/23 10/26/24 10/26/24 History amitriptyline 150 mg tablet 150 mg PO BEDTIME 04/11/24 10/26/24 10/25/24 History amitriptyline 50 mg tablet 50 mg PO BEDTIME 04/11/24 10/26/24 10/25/24 History clonazepam 0.5 mg tablet 0.5 mg PO BID PRN Anxiety 04/11/24 10/26/24 Unknown History duloxetine 20 mg capsule,delayed 20 mg PO DAILY 04/11/24 10/26/24 10/26/24 History release gabapentin 300 mg capsule 300 mg PO TID 04/11/24 10/26/24 10/25/24 History insulin glargine 100 unit/mL 65 unit subcut BEDTIME 04/11/24 10/26/24 10/25/24 History subcutaneous solution (Lantus U-100 Insulin) clotrimazole 1 % topical cream 1 appl topical BID 10/26/24 10/26/24 10/26/24 History fluticasone fur. 100 mcg-umeclid 1 ea inhalation DAILY 10/26/24 10/26/24 10/25/24 History 62.5 mcg-vilant 25 mcg inhalat.powder (Trelegy Ellipta) metoclopramide HCl 10 mg tablet 10 mg PO QID 10/26/24 10/26/24 10/26/24 History tramadol 50 mg tablet 50 mg PO Q8H PRN Pain 10/26/24 10/26/24 Unknown History Physical Exam Vital Signs: Vital Signs: Last Vital Signs Temp 97.8 F 10/27/24 08:11 Pulse 95 10/27/24 08:11 Resp 16 10/27/24 08:11 BP 184/43 H 10/27/24 08:11 Pulse Ox 95 10/27/24 08:11 O2 Del Method Room Air 10/27/24 08:11 BMI result Body Mass Index 33.5 GENERAL APPEARANCE: in no acute distress, pleasant. NECK: no carotid bruit, no jugular venous distention. SKIN: no suspicious lesions, warm and dry. HEART: no murmurs, regular rate and rhythm. LUNGS: clear to auscultation bilaterally. ABDOMEN: soft, nontender. EXTREMITIES: no edema. PERIPHERAL PULSES: equal. NEUROLOGIC: No gross deficits, AAO X 3 Objective Labs and Meds 10/26/24 14:53 10/27/24 04:12 Lab results: Laboratory Results - last 24 hr 10/26/24 10/26/24 10/26/24 14:53 18:58 22:50 WBC 5.1 RBC 3.82 L Hgb 9.3 L Hct 31.3 L MCV 81.9 MCH 24.3 L MCHC 29.7 L RDW 18.0 H Plt Count 241 MPV 10.6 Immature Gran % (Auto) 0.2 Neut % (Auto) 71.6 Lymph % (Auto) 18.5 L Kerr % (Auto) 6.7 Eos % (Auto) 2.6 Baso % (Auto) 0.4 Lymph # (Auto) 0.9 L Kerr # (Auto) 0.3 Eos # (Auto) 0.1 Baso # (Auto) 0.0 Abs Immat Gran (auto) 0.01 Absolute Neuts (auto) 3.7 Absolute Nucleated RBC 0.000 Nucleated RBC % (auto) 0.0 Hold Purple Top Sodium 143 Potassium 3.3 Chloride 110 H Carbon Dioxide 25 Anion Gap 11 L BUN 9 Creatinine 0.63 Estim Creat Clear Calc 83.0 Estimated GFR > 60 POC Glucose 178 H Random Glucose 205 H Calcium 8.3 L D Total Bilirubin 0.2 AST 23 ALT 10 Alkaline Phosphatase 75 Troponin I High Sens 119.3 H* D 127.2 H* B-Natriuretic Peptide 164 H Total Protein 6.5 Albumin 3.4 L Influenza Type A (PCR) NEGATIVE Influenza Type B (PCR) NEGATIVE RSV RNA Qual (PCR) NEGATIVE SARS-CoV-2 RNA (RT-PCR) NEGATIVE 10/27/24 10/27/24 04:12 07:23 WBC RBC Hgb Hct MCV MCH MCHC RDW Plt Count MPV Immature Gran % (Auto) Neut % (Auto) Lymph % (Auto) Kerr % (Auto) Eos % (Auto) Baso % (Auto) Lymph # (Auto) Kerr # (Auto) Eos # (Auto) Baso # (Auto) Abs Immat Gran (auto) Absolute Neuts (auto) Absolute Nucleated RBC Nucleated RBC % (auto) Hold Purple Top SEE NOTE Sodium 138 Potassium 4.2 D Chloride 105 Carbon Dioxide 20 L Anion Gap 17 BUN 11 Creatinine 0.75 Estim Creat Clear Calc 69.8 Estimated GFR > 60 POC Glucose 223 H Random Glucose 331 H Calcium 9.3 D Total Bilirubin AST ALT Alkaline Phosphatase Troponin I High Sens 112.5 H* B-Natriuretic Peptide Total Protein Albumin Influenza Type A (PCR) Influenza Type B (PCR) RSV RNA Qual (PCR) SARS-CoV-2 RNA (RT-PCR) Imaging Radiologist's impression: Impressions Chest X-Ray 10/26/24 14:50 IMPRESSION: Cardiomegaly. No acute cardiopulmonary abnormality. Electronically signed by: Jerry Steele MD 10/26/2024 03:35 PM EST RP Shoulder X-Ray 10/26/24 14:50 IMPRESSION: Osteopenia. Mild osteoarthritis as described. No evidence of fracture of the right shoulder. Electronically signed by: Jerry Steele MD 10/26/2024 03:30 PM EST RP Forearm X-Ray 10/26/24 15:07 IMPRESSION: Osteopenia. No evidence of fracture of the left forearm. Electronically signed by: Jerry Steele MD 10/26/2024 03:29 PM EST RP Hand/Wrist X-Ray 10/26/24 15:07 IMPRESSION: Osteopenia. Narrowing of the DIP joints. No evidence of fracture of the left hand or wrist. Electronically signed by: Jerry Steele MD 10/26/2024 03:28 PM EST RP Assessment and Plan (1) Elevated troponin: Status: Acute Plan 69-year-old female with background history of diabetes, hypertension, hyperlipidemia, mood disorder and asthma/COPD presenting with shortness of breath and chest discomfort. She is denying any chest pain currently and is denying having any chest discomfort on admission. EKGs not showing any dynamic changes. Biomarkers are mildly elevated but flat. She has risk factors for coronary artery disease. Blood pressure controlled. We will arrange outpatient stress testing for her. As she improves from breathing point of view she can be discharged back home. Thank you for allowing me to participate in the care of your patient. Please feel free to contact me if you have any questions. Procedures Date of Service Date of Service: 10/27/24
--- NOTE | 2024-10-27 12:22 | HO.PM.IMPN ---
Subjective Subjective Date of Service: 10/27/24 Interval History: Symptoms resolved, eager to go home Physical Exam Vital Signs: Vital Signs: Last Vital Signs Temp 97.8 F 10/27/24 08:11 Pulse 95 10/27/24 08:11 Resp 16 10/27/24 08:11 BP 184/43 H 10/27/24 08:11 Pulse Ox 95 10/27/24 08:11 O2 Del Method Room Air 10/27/24 08:11 BMI result Body Mass Index 33.5 General: AO X 3, no acute distress Resp: CTA bilateral, no accessory muscles used CVS: S1,S2,RRR GI: soft, non tender, non distended Neuro: motor grossly intact, alert Psych: appropriate affect, appropriate insight Objective Data Active Medications Acetaminophen (Acetaminophen 325 Mg Tablet) 650 mg PO Q6H PRN PRN Reason: Pain, Mild 1-3,fever,headache Albuterol Sulfate (Albuterol Sulfate (0.083%) 2.5 Mg/3 Ml Vial.Neb) 2.5 mg INHALE Q4H PRN PRN Reason: Wheezing Albuterol/Ipratropium (Albuterol/Iprat 2.5/0.5mg 3 Ml Ampul.Neb) 3 ml INHALE RQ6H WHILE AWAKE [facility] Last Admin: 10/27/24 07:53 Dose: 3 ml Documented By: ZOYA Amitriptyline HCl (Amitriptyline Hcl 50 Mg Tablet) 150 mg PO BEDTIME [facility] Atorvastatin Calcium (Atorvastatin Calcium 80 Mg Tablet) 80 mg PO BEDTIME [facility] Last Admin: 10/26/24 22:58 Dose: 80 mg Documented By: NISHANT Benzonatate (Benzonatate 100 Mg Capsule) 100 mg PO TID PRN PRN Reason: Cough Calcium Carbonate (Calcium Carbonate 750 Mg Tab.Chew) 750 mg PO Q4H PRN PRN Reason: Heartburn Clonazepam (Clonazepam 0.5 Mg Tablet) 0.5 mg PO BID PRN PRN Reason: anxiety/restlessness Last Admin: 10/27/24 04:53 Dose: 0.5 mg Documented By: NISHANT Duloxetine HCl (Duloxetine Hcl 20 Mg Capsule.Dr) 20 mg PO DAILY [facility] Last Admin: 10/27/24 09:47 Dose: 20 mg Documented By: WICHO Enoxaparin Sodium (Enoxaparin Sodium 40 Mg/0.4 Ml Syringe) 40 mg SUBCUT Q24H [facility] Last Admin: 10/26/24 18:31 Dose: 40 mg Documented By: JESSE Fluticasone/Umeclidinium/Vilanterol (Fluticasone/Umeclidinium/Vilanterol 100/62.5/ Blst.W.Dev) 1 puff INHALE RDAILY [facility] Last Admin: 10/27/24 08:54 Dose: Not Given Documented By: ZOYA Non-Admin Reason: nursing providing care Gabapentin (Gabapentin 300 Mg Capsule) 300 mg PO TID [facility] Last Admin: 10/27/24 09:47 Dose: 300 mg Documented By: WICHO Insulin Glargine (Insulin Glargine,Hum.Rec.Anlog 100 Unit/Ml 10 Ml Vial) 20 unit SUBCUT BEDTIME [facility] Last Admin: 10/26/24 22:58 Dose: 20 unit Documented By: NISHANT Comments: confirmed with Liat VERNON Insulin Glargine (Insulin Glargine,Hum.Rec.Anlog 100 Unit/Ml 10 Ml Vial) 65 unit SUBCUT BEDTIME [facility] Insulin Human Lispro (Insulin Lispro 100 Unit/Ml 3 Ml Vial) 0 unit SUBCUT QIDACHS [facility]; Protocol Last Admin: 10/27/24 07:33 Dose: 4 unit Documented By: WICHO Loratadine (Loratadine 10 Mg Tablet) 10 mg PO DAILY [facility] Last Admin: 10/27/24 09:47 Dose: 10 mg Documented By: WICHO Magnesium Hydroxide (Milk Of Magnesia 30 Ml Oral.Susp) 30 ml PO DAILY PRN PRN Reason: Constipation Melatonin (Melatonin 3 Mg Tablet) 6 mg PO BEDTIME PRN PRN Reason: Insomnia Metoprolol Succinate (Metoprolol Succinate Er 25 Mg Tab.Er.24h) 25 mg PO DAILY [facility]; Protocol Last Admin: 10/27/24 08:11 Dose: 25 mg Documented By: WICHO Montelukast Sodium (Montelukast Sodium 10 Mg Tablet) 10 mg PO BEDTIME [facility] Nitroglycerin (Nitroglycerin 0.4 Mg Tab.Subl) 0.4 mg SUBLINGUAL Q5MX3 PRN PRN Reason: Chest Pain Omeprazole (Omeprazole 20 Mg Capsule.Dr) 20 mg PO BID@0630,0530 [facility] Last Admin: 10/27/24 06:47 Dose: 20 mg Documented By: NISHANT Ondansetron HCl (Ondansetron Hcl 4 Mg/2 Ml Vial) 4 mg IVPUSH Q8H PRN PRN Reason: Nausea and Vomiting Prednisone (Prednisone 20 Mg Tablet) 40 mg PO DAILY [facility] Last Admin: 10/27/24 08:11 Dose: 40 mg Documented By: WICHO Senna (Sennosides 8.6 Mg Tablet) 8.6 mg PO DAILY [facility] Last Admin: 10/27/24 09:47 Dose: 8.6 mg Documented By: WICHO Sodium Chloride (0.9 % Sodium Chloride Flush 3 Ml Syringe) 3 ml IVFLUSH QSHIFT [facility] Last Admin: 10/27/24 08:11 Dose: 3 ml Documented By: WICHO Valproic Acid (Valproic Acid 250 Mg Capsule) 500 mg PO BEDTIME [facility] Last Admin: 10/27/24 01:03 Dose: 500 mg Documented By: NISHANT Labs 10/26/24 14:53 10/27/24 04:12 Labs: Laboratory Results - last 24 hr 10/26/24 10/26/24 10/26/24 14:53 18:58 22:50 MCV 81.9 MCH 24.3 L MCHC 29.7 L RDW 18.0 H Plt Count 241 MPV 10.6 Immature Gran % (Auto) 0.2 Neut % (Auto) 71.6 Lymph % (Auto) 18.5 L [place] % (Auto) 6.7 Eos % (Auto) 2.6 Baso % (Auto) 0.4 Lymph # (Auto) 0.9 L [place] # (Auto) 0.3 Eos # (Auto) 0.1 Baso # (Auto) 0.0 Abs Immat Gran (auto) 0.01 Absolute Neuts (auto) 3.7 Absolute Nucleated RBC 0.000 Nucleated RBC % (auto) 0.0 Hold Purple Top Anion Gap 11 L Estim Creat Clear Calc 83.0 Estimated GFR > 60 POC Glucose 178 H Random Glucose 205 H Calcium 8.3 L D Total Bilirubin 0.2 AST 23 ALT 10 Alkaline Phosphatase 75 Troponin I High Sens 119.3 H* D 127.2 H* B-Natriuretic Peptide 164 H Total Protein 6.5 Albumin 3.4 L Influenza Type A (PCR) NEGATIVE Influenza Type B (PCR) NEGATIVE RSV RNA Qual (PCR) NEGATIVE SARS-CoV-2 RNA (RT-PCR) NEGATIVE 10/27/24 10/27/24 04:12 07:23 MCV MCH MCHC RDW Plt Count MPV Immature Gran % (Auto) Neut % (Auto) Lymph % (Auto) [place] % (Auto) Eos % (Auto) Baso % (Auto) Lymph # (Auto) [place] # (Auto) Eos # (Auto) Baso # (Auto) Abs Immat Gran (auto) Absolute Neuts (auto) Absolute Nucleated RBC Nucleated RBC % (auto) Hold Purple Top SEE NOTE Anion Gap 17 Estim Creat Clear Calc 69.8 Estimated GFR > 60 POC Glucose 223 H Random Glucose 331 H Calcium 9.3 D Total Bilirubin AST ALT Alkaline Phosphatase Troponin I High Sens 112.5 H* B-Natriuretic Peptide Total Protein Albumin Influenza Type A (PCR) Influenza Type B (PCR) RSV RNA Qual (PCR) SARS-CoV-2 RNA (RT-PCR) Assessment and Plan (1) NSTEMI (non-ST elevated myocardial infarction): Status: Acute Plan 69F PMH type 2 diabetes, CVA, hyperlipidemia, JOSÉ, hypertension, COPD presented with chest pain and shortness of breath COPD/mild intermittent asthma with acute decompensation Much improved, continue prednisone and albuterol as needed Chest pain with elevated troponin Unclear significance Follow up Cardiology Diabetes Basal bolus insulin History of CVA Continue statin Hypertension Continue metoprolol DVT prophylaxis Lovenox Full Code reason for continued hospitalization: Awaiting expert eval Quality Stroke Does the patient have a stroke diagnosis?: No VTE Prior VTE?: No VTE Risk Level:: Medical - moderate - high VTE Device Contraindication: Treatment Not Indicated VTE Drug Contraindication: N/A - Med Ordered
[2024-10-27 13:07] VITALS: BP 169/60; PULSE 88; RESP 20; TEMP 36.4; O2SAT 96
[2024-10-27 13:11] LABS: Glucose, Whole Blood 214 mg/dL (60-115)
--- NOTE | 2024-10-27 13:58 | MHC.CM.PN ---
Patient has been medically cleared for dc to home today, self care.
--- NOTE | 2024-10-27 13:58 | PM.DS ---
DS: Providers Provider Date of Service: 10/27/24 Date of admission: 10/26/24 17:16 Date of discharge: 10/27/24 Primary care physician: Ashwin Arzola III, MD Consults: 10/26/24 17:23 Consult to Cardiology Routine Consulting Provider: [facility] [place] Reason for consultation: chest pain, elevated Trop I DS: Diagnosis Discharge Diagnosis (1) NSTEMI (non-ST elevated myocardial infarction): Status: Acute DS: Summary Hospital Course Hospital Course: from initial hpi: 69 years old lady with PMH of DMII, CVA, HLD, JOSÉ, HTN, COPD among others presents to the hospital with chest tightness and wheezing. Cameroonian speaker. The patient report her right arm got stuck in a closing elevator door this morning causing pain from elbow to shoulder but no fall and thats why she came to the hospital. She has been feeling chest pain and heaviness, central with radiation to her back for the last 3 days. no change in pain for the last 3 day. no clear relieving or aggrevating factors. she also reports difficulty breathing and SOB for the last 2 days. No fever, chills, palpitations, nausea, vomiting, diarrhea or urinary symptoms. she has been having wheezes on\off with no cough or recent illness. uses home inhaler with improvement. In ED she was noted to have wheezes and received treatment for it. EKG with no acute ST\T wave changes. first Trop of 119.3 pending repeat. case discussed with cardiology who did not feel the need to start Heparin drip. received ASA and admitted for observation. hospital course: Patient was admitted for COPD/mild intermittent asthma with acute decompensation. She received steroids and albuterol and improved. Will be discharged on 5 more days of prednisone. For chest pain with elevated troponin she was seen by Cardiology who felt this was not ACS and recommended outpatient follow-up for stress test. For diabetes was continued on basal bolus insulin. For history of CVA was continued on statin. for htn continued on metoprolol. patien feeling better will be discharged home. Time Attestation Discharge Coordination Time (in mins): 32 Quality: Safe Use of Opioids Does Pt have an Active Cancer Diagnosis on the Problem List?: No Quality: Stroke Does the patient have a stroke diagnosis?: No Physical Exam Vital Signs: Vital Signs: Last Vital Signs Temp 97.6 F 10/27/24 13:07 Pulse 88 10/27/24 13:07 Resp 20 10/27/24 13:07 BP 169/60 H 10/27/24 13:07 Pulse Ox 96 10/27/24 13:07 O2 Del Method Room Air 10/27/24 13:07 BMI result Body Mass Index 33.5 General: AO X 3, no acute distress Resp: CTA bilateral, no accessory muscles used CVS: S1,S2,RRR GI: soft, non tender, non distended Neuro: motor grossly intact, alert Psych: appropriate affect, appropriate insight DS: Data Data Completed and Pending Labs on day of discharge: Laboratory Results - last 24 hr 10/26/24 10/26/24 10/26/24 14:53 18:58 22:50 WBC 5.1 RBC 3.82 L Hgb 9.3 L Hct 31.3 L MCV 81.9 MCH 24.3 L MCHC 29.7 L RDW 18.0 H Plt Count 241 MPV 10.6 Immature Gran % (Auto) 0.2 Neut % (Auto) 71.6 Lymph % (Auto) 18.5 L [place] % (Auto) 6.7 Eos % (Auto) 2.6 Baso % (Auto) 0.4 Lymph # (Auto) 0.9 L [place] # (Auto) 0.3 Eos # (Auto) 0.1 Baso # (Auto) 0.0 Abs Immat Gran (auto) 0.01 Absolute Neuts (auto) 3.7 Absolute Nucleated RBC 0.000 Nucleated RBC % (auto) 0.0 Hold Purple Top Sodium 143 Potassium 3.3 Chloride 110 H Carbon Dioxide 25 Anion Gap 11 L BUN 9 Creatinine 0.63 Estim Creat Clear Calc 83.0 Estimated GFR > 60 POC Glucose 178 H Random Glucose 205 H Calcium 8.3 L D Total Bilirubin 0.2 AST 23 ALT 10 Alkaline Phosphatase 75 Troponin I High Sens 119.3 H* D 127.2 H* B-Natriuretic Peptide 164 H Total Protein 6.5 Albumin 3.4 L Influenza Type A (PCR) NEGATIVE Influenza Type B (PCR) NEGATIVE RSV RNA Qual (PCR) NEGATIVE SARS-CoV-2 RNA (RT-PCR) NEGATIVE 10/27/24 10/27/24 10/27/24 04:12 07:23 12:59 WBC RBC Hgb Hct MCV MCH MCHC RDW Plt Count MPV Immature Gran % (Auto) Neut % (Auto) Lymph % (Auto) [place] % (Auto) Eos % (Auto) Baso % (Auto) Lymph # (Auto) [place] # (Auto) Eos # (Auto) Baso # (Auto) Abs Immat Gran (auto) Absolute Neuts (auto) Absolute Nucleated RBC Nucleated RBC % (auto) Hold Purple Top SEE NOTE Sodium 138 Potassium 4.2 D Chloride 105 Carbon Dioxide 20 L Anion Gap 17 BUN 11 Creatinine 0.75 Estim Creat Clear Calc 69.8 Estimated GFR > 60 POC Glucose 223 H 214 H Random Glucose 331 H Calcium 9.3 D Total Bilirubin AST ALT Alkaline Phosphatase Troponin I High Sens 112.5 H* B-Natriuretic Peptide Total Protein Albumin Influenza Type A (PCR) Influenza Type B (PCR) RSV RNA Qual (PCR) SARS-CoV-2 RNA (RT-PCR) Discharge Plan Discharge Anticipated Discharge Date/Time: 10/27/24 13:56 Patient Disposition: Home, Self-Care Referrals: Ashwin Arzola III, MD [Primary Care Provider] - 1 Week Discharge Medications: New prednisone 20 mg tablet 40 mg PO DAILY Qty: 10 0RF Continued iqzzqbdsxy-bdjbewxkjntpq-xisn 50-325-40 mg tablet 1 tab PO Q6H PRN (Reason: Headache) atorvastatin 80 mg Tablet 80 mg PO BEDTIME Qty: 0 0RF metoprolol succinate 25 mg Tablet Extended Release 24 Hr 25 mg PO DAILY Qty: 0 0RF Protocol: Hold for SBP/HR < HOLD for SBP < : 90 HOLD for HR < : 60 loratadine 10 mg Tablet 10 mg PO DAILY Qty: 0 0RF montelukast 10 mg Tablet 10 mg PO BEDTIME Qty: 30 0RF sennosides [senna] 8.6 mg tablet 8.6 mg PO DAILY docusate sodium 100 mg capsule 100 mg PO BID clotrimazole 1 % cream 1 appl topical BID metoclopramide HCl 10 mg tablet 10 mg PO QID tramadol 50 mg tablet 50 mg PO Q8H PRN (Reason: Pain) Trelegy Ellipta 100-62.5-25 mcg blister with device 1 ea inhalation DAILY amitriptyline 150 mg tablet 150 mg PO BEDTIME Rx Instructions: with 50 mg clonazepam 0.5 mg tablet 0.5 mg PO BID PRN (Reason: Anxiety) duloxetine 20 mg capsule,delayed release(DR/EC) 20 mg PO DAILY amitriptyline 50 mg tablet 50 mg PO BEDTIME Rx Instructions: with 150 mg gabapentin 300 mg capsule 300 mg PO TID insulin glargine [Lantus U-100 Insulin] 100 unit/mL solution 65 unit subcut BEDTIME (DME) lancets [OneTouch Delica Plus Lancet] 33 gauge misc See Rx Instructions .ROUTE BID Qty: 100 Rx Instructions: As directed (DME) OneTouch Ultra Test Strip See Rx Instructions .ROUTE BID Qty: 10 Rx Instructions: As directed Discharge Orders: Discharge Order (Routine); Ordered 10/27/24 Ordered By: Timmy Roger Diet: Advance to usual diet Activity on Discharge: As tolerated Stand Alone Forms: Patient Portal Discharge page Print Language: Cameroonian Care Plan Goals: recovery Health Concerns: troponin, copd Plan of Treatment: 5 days prednisone, follow up cardio for stress test Assessment: see above
[2024-10-27 14:52] VITALS: BP 169/60; PULSE 88; RESP 20; TEMP 36.4; O2SAT 96
== END 2024-10-27 14:51 | disposition home or self-care (01) ==
LOC: HO.ED 16:26 → HO.EDOVER 17:20
PROVIDERS: Physician Assistant; Student in an Organized Health Care Education/Training Program; Admitting Provider Student in an Organized Health Care Education/Training Program; Emergency Provider Student in an Organized Health Care Education/Training Program; PCP Internal Medicine; Visit Provider Internal Medicine
DX: I21.4 Non-ST elevation (NSTEMI) myocardial infarction (principal); I10 Essential (primary) hypertension; R07.9 Chest pain, unspecified; M79.601 Pain in right arm; J45.901 Unspecified asthma with (acute) exacerbation; R79.89 Other specified abnormal findings of blood chemistry; R06.02 Shortness of breath; Z79.899 Other long term (current) drug therapy; Z03.818 Encounter for observation for suspected exposure to other biological agents ruled out; Z86.73 Personal history of transient ischemic attack (TIA), and cerebral infarction without residual deficits
CPT/HCPCS: 0241U; 36415; 71045; 73030; 73090; 73110; 73130; 80048; 80053; 82947; 83880; 84484; 85025; 93005; 94640; 96372; 96374; 99222; 99285; J1650; J2919

== ENCOUNTER → 2024-10-26 17:16 | Outpatient (BNV) | payer OTHER, SELFPAY | PROVIDERS: Admitting Provider Student in an Organized Health Care Education/Training Program; Emergency Provider Student in an Organized Health Care Education/Training Program; PCP Internal Medicine; Visit Provider Student in an Organized Health Care Education/Training Program | DX: I21.4 Non-ST elevation (NSTEMI) myocardial infarction (principal) | CPT/HCPCS: 99239; 99499 ==

== ENCOUNTER → 2024-10-26 17:16 | Outpatient (BNV) | payer OTHER, SELFPAY | PROVIDERS: Admitting Provider Student in an Organized Health Care Education/Training Program; Emergency Provider Student in an Organized Health Care Education/Training Program; PCP Internal Medicine; Visit Provider Internal Medicine Cardiovascular Disease | DX: R79.89 Other specified abnormal findings of blood chemistry (principal) | CPT/HCPCS: 99222 ==

== ENCOUNTER 2024-12-15 13:21 | Emergency (ER) | payer OTHER, SELFPAY ==
[2024-12-15 13:39] VITALS: BP 136/75; PULSE 91; O2SAT 98
[2024-12-15 13:41] VITALS: BP 152/67; PULSE 87; RESP 14; TEMP 36.3; O2SAT 96; BMI 30.9
--- NOTE | 2024-12-15 14:48 | ED_ITS ---
HPI - Chest Pain General Chief Complaint: Chest Pain Stated Complaint: FAM STS EMOTIONAL DISTRESS S/P BAD NEWS PER EMS Time Seen by Provider: 12/15/24 13:49 Source: patient, family, EMS and rolled seat trimmer (panamanian) Mode of arrival: EMS Limitations: language barrier (panamanian speaking) History of Present Illness ED Provider: ELIANE IQBAL PA-C HPI narrative: 69 year old Sammarinese speaking female with pmhx significant for JOSÉ, asthma/COPD, mood disorder, NSTEMI, HTN, HDL, T2DM presents to the ED today via EMS from home for evaluation of emotional distress. mailroom associate utilized throughout visit to communicate with patient. Per patient, she received a distressing phone call where she was informed that her daughter had suffered a stroke and is likely not going to make it. Patient immediately began to have chest pain. Reports history of anxiety/ panic attacks. Her son was with her when she received this call. He decided to call EMS for her to be evaluated further. At present she reports mental pain . She is no longer having chest pain. Anxious and tearful during interview. Denies palpitations, sob, LE pain/swelling. Related Data Home Medications ?Medication ?Instructions ?Recorded ?Confirmed blood sugar diagnostic (OneTouch #10 ea 09/27/22 10/20/23 Ultra Test strips) lancets 33 gauge (OneTouch Delica #100 ea 09/27/22 10/20/23 Plus Lancet) pfikaatzdt-htapxjxqddrgd-nlehycog 1 tab PO Q6H PRN Headache 10/17/23 10/26/24 50 mg-325 mg-40 mg tablet docusate sodium 100 mg capsule 100 mg PO BID 11/16/23 10/26/24 sennosides 8.6 mg tablet (senna) 8.6 mg PO DAILY 11/16/23 10/26/24 amitriptyline 150 mg tablet 150 mg PO BEDTIME 04/11/24 10/26/24 amitriptyline 50 mg tablet 50 mg PO BEDTIME 04/11/24 10/26/24 clonazepam 0.5 mg tablet 0.5 mg PO BID PRN Anxiety 04/11/24 10/26/24 duloxetine 20 mg capsule,delayed 20 mg PO DAILY 04/11/24 10/26/24 release gabapentin 300 mg capsule 300 mg PO TID 04/11/24 10/26/24 insulin glargine 100 unit/mL 65 unit subcut BEDTIME 04/11/24 10/26/24 subcutaneous solution (Lantus U-100 Insulin) clotrimazole 1 % topical cream 1 appl topical BID 10/26/24 10/26/24 fluticasone fur. 100 mcg-umeclid 1 ea inhalation DAILY 10/26/24 10/26/24 62.5 mcg-vilant 25 mcg inhalat.powder (Trelegy Ellipta) metoclopramide HCl 10 mg tablet 10 mg PO QID 10/26/24 10/26/24 tramadol 50 mg tablet 50 mg PO Q8H PRN Pain 10/26/24 10/26/24 Previous Rx's ?Medication ?Instructions ?Recorded atorvastatin 80 mg tablet 80 mg PO BEDTIME #0 tabs 10/29/23 loratadine 10 mg tablet 10 mg PO DAILY #0 tabs 10/29/23 metoprolol succinate 25 mg 25 mg PO DAILY #0 tabs 10/29/23 tablet,extended release 24 hr montelukast 10 mg tablet 10 mg PO BEDTIME #30 tabs 10/29/23 prednisone 20 mg tablet 40 mg (2 x 20 mg) PO DAILY #10 tabs 10/27/24 Allergies Allergy/AdvReac Type Severity Reaction Status Date / Time Penicillins Allergy Mild Swelling Verified 12/15/24 14:01 Review of Systems 2 Review of Systems: Yes all other systems are reviewed and are negative [facility] Past Medical History Attestation statement: The following information was validated with the patient. Source: old records reviewed and nursing notes reviewed Medical History Seizure disorder JOSÉ (obstructive sleep apnea) Delusions Major neurocognitive disorder Chest pain Dyspnea on exertion COVID-19 GERD (gastroesophageal reflux disease) DJD (degenerative joint disease) COPD (chronic obstructive pulmonary disease) Bipolar disorder CTS (carpal tunnel syndrome) Hx of rheumatoid arthritis Diabetic neuropathy Urinary incontinence Aneurysm of middle cerebral artery Pulmonary nodules CHF (congestive heart failure) Palpitations Migraine History of COVID-19 Mild aortic stenosis Asthma Insulin dependent type 2 diabetes mellitus Mixed hyperlipidemia Mood disorder Essential hypertension Surgical History No pertinent past surgical history Hx of cataract surgery H/O: hysterectomy Hx of cholecystectomy History of carpal tunnel release Family History Family History Mother Myocardial infarction Father Myocardial infarction Sister Breast cancer Brother Spleen cancer Social History Social History Household Members: None Housing: House Do you presently have visiting nurse or other home services: Yes Unable to assess alcohol history related to: Unknown Alcohol intake: never Comment: report given by Cleo menendez Patient Tobacco Use Status: Never used Tobacco Tobacco use type: Cigarette Cigarette Packs Per Day: 0.2 Cigarettes Per Day: 4.0 Years Smoked: 3227-8556 Smoked in Last 30 Days: No e-Cigarette/Vaping Use: Never Used Second Hand Smoke Exposure: No Use of substances other than those prescribed or required for medical reasons: No Advance Directives: Yes Advance Directives on File: Yes Advance Directives Date on File: 11/20/23 service: No Current occupational status: retired Sexual orientation: Straight/Heterosexual Physical Exam 2 Vital Signs: Vital Signs: Last Vital Signs Temp 97.9 F 12/15/24 20:48 Pulse 80 12/15/24 20:48 Resp 18 12/15/24 20:48 BP 164/71 H 12/15/24 20:48 Pulse Ox 94 12/15/24 20:48 O2 Del Method Room Air 12/15/24 20:48 BMI result Body Mass Index 30.9 hypertensive, vitals otherwise wnl General: anxious, sad appearing, tearful Skin: Warm, dry, intact. No rashes or lesions. Head: Normocephalic, atraumatic. EENT: Hearing is intact b/l. Conjunctiva clear. PERRLA. EOM intact. Moist mucous membranes.? Neck: Supple without LAD Cardiac: Chest wall symmetric. RRR. no JVD. Lungs: Normal respiratory effort without accessory muscle use. CTA bilaterally. Abdomen: Soft, non-tender, non-distended. No rebound tenderness or guarding. Positive BS x4. Back: No midline spinous or paraspinal tenderness. No step off deformity. Ext: Upper and lower extremities atraumatic, without tenderness, deformity, swelling or erythema. no pitting edema. Neuro: AOx3. Normal speech. Psych: Appropriate mood and affect. Responds appropriately to questions. Course Course Course Narrative: 1001 -- cbc without leukocytosis or left shift. Normocytic anemia, H&H stable when compared to priors and above transfusion threshold. hypokalemia to 3.2. mag wnl. no other acute electrolyte abnormality requiring intervention. no meggan. liver function at baseline. troponin elevated to 56.4. troponin approx 2 mo ago 112. ekg showing normal sinus rhythm with sinus arrhythmia, rate 73 beats per minute, no acute ischemic changes or ST elevations. > medicated w/ tylenol and PO ativan > hypokalemia -- IV potassium ordered > Elevated troponin -- patient does have history of NSTEMI. EKG unremarkable. She does not endorse chest pain at this time. she is hemodynamically stable. plan to obtain 3 hour repeat. 1899 -- patient stable at the end of my shift. sign out given to my colleague lexi quintero pending repeat trop and disposition. -2019--repeat troponin equivocal, mi unlikely. Safe for discharge home at this time Results discussed with patient including worrisome signs and symptoms and strict return precautions, and when to return to the emergency department. They verbalized understanding and feel safe for discharge at this time. Medications Administered Discontinued Medications Generic Name Dose Route Start Last Admin Trade Name Freq PRN Reason Stop Dose Admin Acetaminophen 650 mg 12/15/24 15:07 12/15/24 15:18 Acetaminophen 325 Mg Tablet PO 12/15/24 15:08 650 mg ONCE ONE Administration Potassium Chloride 10 meq in 100 mls @ 100 mls/hr 12/15/24 16:45 12/15/24 18:32 Potassium Chloride/H20 IV 12/15/24 18:44 75 mls/hr Q1H ISIAH Administration Lorazepam 0.5 mg 12/15/24 15:07 12/15/24 15:18 Lorazepam 0.5 Mg Tablet PO 12/15/24 15:08 0.5 mg ONCE ONE Administration Medical Decision Making Medical Decision Making [facility] Narrative: 69 year old Sammarinese speaking female with pmhx significant for JOSÉ, asthma, NSTEMI, HTN, HDL, T2DM presents to the ED today via EMS from home for evaluation of emotional distress. History without high risk features (not substernal, no exertional component, not relieved with rest). Exam without evidence of volume overload. EKG without signs of active ischemia. HEART score: 4. Chest pain appears situational, related to anxiety/ panic attack. I have also considered anemia, electrolyte abnormality, Given the timing of pain to ED presentation, plan to send delta troponin to evaluate for NSTEMI. Presentation not consistent with acute PE (Wells low risk // PERC negative), pneumothorax, thoracic aortic dissection, cardiac effusion or tamponade. Plan: labs, troponin, EKG, CXR, ASA, pain control, reassessment Differential Diagnosis Differential Diagnoses: The differential diagnosis associated with the presentation includes as above. Admission/Observation Consideration of admission/observation: Escalation of care including admission/observation considered Lab Data MDM Lab Attestation statement: I reviewed the patient's lab results. as above. 12/15/24 15:58 12/15/24 15:58 Labs: Lab Results 12/15/24 12/15/24 Range/Units 15:58 19:17 WBC 5.7 (4.8-10.8) X10*3/uL RBC 4.35 (4.20-5.50) X10*6/uL Hgb 10.8 L (12.0-16.0) g/dl Hct 36.1 L (37.0-47.0) % MCV 83.0 (80.0-98.0) fL MCH 24.8 L (27.0-33.0) pg MCHC 29.9 L (31.0-35.0) g/dl RDW 17.8 H (11.0-16.0) % Plt Count 243 (160-400) X10*3/uL MPV 10.8 (9.4-12.3) fL Immature Gran % (Auto) 0.2 (0.0-0.4) % Neut % (Auto) 60.5 (45-73) % Lymph % (Auto) 27.0 (20-40) % [place] % (Auto) 9.0 (2-11) % Eos % (Auto) 2.8 (0-4) % Baso % (Auto) 0.5 (0-2) % Lymph # (Auto) 1.5 (1.2-4.9) X10*3/uL [place] # (Auto) 0.5 (0.1-1.2) X10*3/uL Eos # (Auto) 0.2 (0.0-0.4) X10*3/uL Baso # (Auto) 0.0 (0.0-0.2) X10*3/uL Abs Immat Gran (auto) 0.01 (0.00-0.03) X10*3/uL Absolute Neuts (auto) 3.4 (2.0-8.3) x10*3/uL Absolute Nucleated RBC 0.000 (0.0-0.012) X10*3/uL Nucleated RBC % (auto) 0.0 (0.0-0.2) /100WBC PT 11.3 (10.9-12.4) SEC INR 1.0 (0.9-1.1) Sodium 145 (135-145) mmol/L Potassium 3.2 L D (3.3-5.1) mmol/L Chloride 109 H (96-108) mmol/L Carbon Dioxide 30 H (22-29) mmol/L Anion Gap 9 L (12-20) BUN 7 L (9-16) mg/dL Creatinine 0.56 (0.5-1.4) mg/dL Estim Creat Clear Calc 100.0 Estimated GFR > 60 Random Glucose 107 (60-115) mg/dL Calcium 9.1 (8.4-10.2) mg/dL Magnesium 1.7 (1.6-2.6) mg/dL Total Bilirubin 0.2 (0.0-1.0) mg/dL AST 22 (5-31) U/L ALT 19 (0-31) U/L Alkaline Phosphatase 87 (39-117) U/L Troponin I High Sens 56.4 H* 52.0 H* (<3.5-17.0) ng/L Total Protein 7.3 (6.5-8.0) g/dL Albumin 3.8 (3.5-5.0) g/dL Lipase 21 (8-78) U/L Independent Interpretation I performed an independent interpretation of an: EKG Interpretation: ekg showing NSR w/ sinus arrhythmia, rate of 73 bpm, no acute ischemic changes or st elevations Independent Historian Clinical information obtained from an independent historian. History obtained from or confirmed by: EMS External Record Review External record reviewed: Inpatient record Prescription Management I considered prescription management with: Pain Medication and Other (anxiolytic) Chronic Conditions Patient?s care impacted by: Other (anxiety, NSTEMI) Social Determinants Patient?s care significantly limited by Social Determinants of Health including: Other Social Determinant of Health Critical Care Time Critical Care Time Critical Care Time: No Discharge Plan Discharge Clinical Impression: Anxiety, Elevated troponin, Acute hypokalemia Patient Disposition: Home, Self-Care Instructions: Anxiety (ED) Additional Instructions: You were evaluated in the Emergency Department today for chest pain following a stressful event. Your evaluation has shown no signs of medical conditions requiring emergent intervention at this time, however I recommend that you follow up with your primary care provider or your needle felt making machine operator as soon as possible for further testing as an outpatient. If you do not have one, a referral has been provided. Please call them to make an appointment, they will not call you. Return to the Emergency Department if you experience worsening or uncontrolled chest pain, shortness of breath, light headedness, feeling faint, nausea, vomiting, or any other concerning symptoms. Prescriptions: No Action iqxqaxjvjr-vbrtqxdiwnwhc-sugp 50-325-40 mg tablet 1 tab PO Q6H PRN (Reason: Headache) atorvastatin 80 mg Tablet 80 mg PO BEDTIME Qty: 0 0RF metoprolol succinate 25 mg Tablet Extended Release 24 Hr 25 mg PO DAILY Qty: 0 0RF Protocol: Hold for SBP/HR < HOLD for SBP < : 90 HOLD for HR < : 60 loratadine 10 mg Tablet 10 mg PO DAILY Qty: 0 0RF montelukast 10 mg Tablet 10 mg PO BEDTIME Qty: 30 0RF sennosides [senna] 8.6 mg tablet 8.6 mg PO DAILY docusate sodium 100 mg capsule 100 mg PO BID clotrimazole 1 % cream 1 appl topical BID metoclopramide HCl 10 mg tablet 10 mg PO QID tramadol 50 mg tablet 50 mg PO Q8H PRN (Reason: Pain) Trelegy Ellipta 100-62.5-25 mcg blister with device 1 ea inhalation DAILY prednisone 20 mg tablet 40 mg PO DAILY Qty: 10 0RF amitriptyline 150 mg tablet 150 mg PO BEDTIME Rx Instructions: with 50 mg clonazepam 0.5 mg tablet 0.5 mg PO BID PRN (Reason: Anxiety) duloxetine 20 mg capsule,delayed release(DR/EC) 20 mg PO DAILY amitriptyline 50 mg tablet 50 mg PO BEDTIME Rx Instructions: with 150 mg gabapentin 300 mg capsule 300 mg PO TID insulin glargine [Lantus U-100 Insulin] 100 unit/mL solution 65 unit subcut BEDTIME (DME) lancets [OneTouch Delica Plus Lancet] 33 gauge misc See Rx Instructions .ROUTE BID Qty: 100 Rx Instructions: As directed (DME) OneTouch Ultra Test Strip See Rx Instructions .ROUTE BID Qty: 10 Rx Instructions: As directed Referrals: [facility] [place] [facility] [Provider Group] Ashwin Arzola III, MD [Primary Care Provider] - 3 days Interventions: ED Discharge Assessment Last Done: 12/15/24 20:48 Discharge Date/Time: 12/15/24 20:49 Print Language: Sammarinese
--- NOTE | 2024-12-15 15:06 | ECG_ITS ---
Test Reason : CHEST PAIN Blood Pressure : */* mmHG Vent. Rate : 73 BPM Atrial Rate : 73 BPM P-R Int : 194 ms QRS Dur : 94 ms QT Int : 392 ms P-R-T Axes : 38 -13 30 degrees QTcB Int : 431 ms Normal sinus rhythm with sinus arrhythmia Normal ECG When compared with ECG of 26-Oct-2024 14:46, No significant change was found Referred By: Ramya Correa Electronically Signed By: ALISHA JOLLY MD
[2024-12-15] MEDS: Acetaminophen 325 MG TABLET 650 MG PO (15:18)
[2024-12-15] MEDS: LORazepam 0.5 MG TABLET PO (15:18)
[2024-12-15 16:05] LABS: MANUAL DIFF FLAG NO
[2024-12-15 16:07] LABS: Basophils Percent Auto 0.5 % (0-2); Eosinophils Absolute Auto 0.2 X10*3/uL (0.0-0.4); Eosinophils Percent Auto 2.8 % (0-4); Hematocrit 36.1 % (37.0-47.0); Hemoglobin 10.8 g/dl (12.0-16.0); Imm Gran Abs Auto 0.01 X10*3/uL (0.00-0.03); Imm Gran Pct Auto 0.2 % (0.0-0.4); Lymphocytes Absolute Auto 1.5 X10*3/uL (1.2-4.9); Mean Corpuscular HGB Conc 29.9 g/dl (31.0-35.0); Mean Corpuscular Hemoglobin 24.8 pg (27.0-33.0); Mean Platelet Volume 10.8 fL (9.4-12.3); Monocytes Absolute Auto 0.5 X10*3/uL (0.1-1.2); Neutrophils Absolute Auto 3.4 x10*3/uL (2.0-8.3); Neutrophils Percent Auto 60.5 % (45-73); Platelet Count 243 X10*3/uL (160-400); Red Blood Count 4.35 X10*6/uL (4.20-5.50); Red Cell Distribution Width 17.8 % (11.0-16.0); White Blood Count 5.7 X10*3/uL (4.8-10.8)
[2024-12-15 16:15] LABS: Prothrombin Time 11.3 SEC (10.9-12.4)
[2024-12-15 16:27] LABS: Alanine Aminotransferase 19 U/L (0-31); Albumin Level 3.8 g/dL (3.5-5.0); Alkaline Phosphatase 87 U/L (39-117); Anion Gap 9 (12-20); Aspartate Amino Transferase 22 U/L (5-31); Bilirubin Total 0.2 mg/dL (0.0-1.0); Blood Urea Nitrogen 7 mg/dL (9-16); Calcium 9.1 mg/dL (8.4-10.2); Carbon Dioxide 30 mmol/L (22-29); Chloride 109 mmol/L (96-108); Estimated Glomerular Filt Rate > 60; Glucose Random 107 mg/dL (60-115); Lipase 21 U/L (8-78); Magnesium 1.7 mg/dL (1.6-2.6); Potassium 3.2 mmol/L (3.3-5.1); Sodium 145 mmol/L (135-145); Total Protein 7.3 g/dL (6.5-8.0)
[2024-12-15 16:32] LABS: Troponin-I High Sensitivity 56.4 ng/L (<3.5-17.0)
[2024-12-15 16:37] VITALS: BP 146/61; PULSE 82; RESP 16; TEMP 36.8; O2SAT 97
[2024-12-15] MEDS: Potassium Chloride/H20 10 MEQ/100 ML PIGGYBACK 100 MEQ IV (16:58)
--- OUTSIDE RECORDS SUMMARY | 2024-12-15 16:59 | XMS_ITS | Encounter Summary ---
Author Organization [facility] Address [address] [place] [address] Care Team Providers Care Front Desk Agent Name Role Phone Ashwin Arzola MD Primary Care Provider [phone] Sotero Connell MD Unavailable [phone] Blanco Edwards NP Unavailable [phone] Reason for Visit * Reason Onset Date Comments VNA Call 10/28/2023 Encounter Details Date Type Department Care Team Description 10/28/2023 Telephone Adult Medicine [facility] [address], [place] [id number] Ashwin Arzola MD [address], [place] [id number] VNA Call Social History Tobacco Use Types Packs/Day Years Used Date Smoking Tobacco: Former Cigarettes 3 15 1 973 - 10/13/1987 Smokeless Tobacco: Former Alcohol Use Standard Drinks/Week Comments No 0 (1 standard drink = 0.6 oz pur e alcohol) Sex Assigned at Date Recorded Not on file Job Start Date Occupation Industry Not on file Not on file Not on file documented as of this encounter Miscellaneous Notes * Telephone Encounter - Antonio Escobar.P.N. - 10/28/2023 11:54 AM EST VO given to Marilyn * Telephone Encounter - Ashwin Arzola MD - 10/28/2023 11:44 AM EST Please give the VO * Telephone Encounter - Antonio Elias L.P.N. - 10/28/2023 10:41 AM EST VNA requesting V O for nursing Please review and advise Please send response to the VNA pool P [phone] Thank you * Telephone Encounter - Micah Garcia - 10/28/2023 10:24 AM EST VNA CALL Which VNA office is calling? [place] Full name of caller: Marilyn The caller is A nurse Is the caller at the patients home?: NO Reason for call: Requesting verbal order for Skill nurse and medication management Does caller need an urgent call back? YES Was CONTACT Telephone # obtained above?: YES Fax #: documented in this encounter Plan of Treatment Not on file documented as of this encounter Visit Diagnoses Not on filedocumented in this encounter Care Teams Front Desk Agent Relationship Specialty Start Date End Date Ashwin Arzola MD [address] [place] [id number] PCP - General Internal Medicine 08/01/20 Sotero Connell MD [address] [place] [phone] Specialist Cardiology 07/10/21 Blanco Edwards NP [address] [place] [id number] Specialist Cardiology 08/02/22 documented as of this encounter
--- OUTSIDE RECORDS SUMMARY | 2024-12-15 16:59 | XMS_ITS | Encounter Summary ---
Author Organization [facility] Address [address] [place] [address] Care Team Providers Care Raw Silk Grader Name Role Phone Name, Braulio CHIANG Primary Care Provider Unavailabl Dudley Mancuso MD Primary Care Provider Unavail able Ajit Montanez MD Primary Care Provide r Unavailable Sujey Browning MD Primary Care Provider Un available Dudley Brown MD Primary Care Provider Unavail able Nancy Vines DO Primary Care Pro vider Unavailable Ashwin Arzola MD Primary Care Provider [phone] Sujey Browning MD Primary Care Provider Un available Sotero Connell MD Unavailable [phone] Blanco Edwards NP Unavailable [phone] Reason for Visit * Reason Onset Date Comments VNA Call 09/01/2013 Encounter Details Date Type Department Care Team Description 09/01/2013 Telephone Adult [address] [id number] Braulio Loyola MD VNA Call Social History Tobacco Use Types Packs/Day Years Used Date Smoking Tobacco: Former Cigarettes 3 15 Q uit: 10/13/1987 Smokeless Tobacco: Never Alcohol Use Standard Drinks/Week Comments No 0 (1 standard drink = 0.6 oz pur e alcohol) Sex Assigned at Date Recorded Not on file Job Start Date Occupation Industry Not on file Not on file Not on file documented as of this encounter Miscellaneous Notes * Telephone Encounter - Braulio Loyola MD - 09/01/2013 11:53 AM EST done * Telephone Encounter - Angelika Bonilla R.N. - 09/01/2013 10:20 AM EST Pt needs bedside commode and wheel chair cushion. [facility] * Telephone Encounter - Enid Avery - 09/01/2013 9:59 AM EST VNA CALL Which VNA office is calling? [facility] Full name of caller: Terri Doll Is the caller at the patients home?: NO Reason for call: PT therapist has been trying to order some equipment for pt and she would like Dr Loyola to send an order to home infusion for her, please call her back regarding this. Does caller need an urgent call back? YES, by end of day Was CONTACT Telephone # obtained above?: YES documented in this encounter Plan of Treatment Not on file documented as of this encounter Procedures Procedure Name Priority Date/Time Associated Diagnosis Comments COMMODE CHAIR Routine 09/01/2013 11:55 AM EST DJD (degenerative joint disease), lumbar documented in this encounter Visit Diagnoses Diagnosis DJD (degenerative joint disease), lumbar- Primary Degeneration of lumbar or lumbosacral intervertebral disc documented in this encounter Care Teams Raw Silk Grader Relationship Specialty Start Date End Date Name, MD Braulio PCP - General Internal Medicine 11/06/11 07/02/15 Dudley Brown MD PCP - General Internal Medicine 11/13/15 11/30/15 Ajit Montanez MD PCP - General Internal Medicine 12/01/15 Sujey Browning MD PCP - General Internal Medicine 03/27/1608/02 Dudley Brown MD PCP - General Internal Medicine 08/03/19 04/12/20 Nancy Vines DO PCP - General Internal Medicine 04/13/20 07/31/20 Ashwin Arzola MD [address] [place] [address] PCP - General Internal Medicine 08/01/20 Sujey Browning MD PCP - General 07/03/15 11/12/15 Sotero Connell MD [address] [place] [address] [phone] Specialist Cardiology 07/10/21 Blanco Edwards NP [address] [place] [address] [phone] Specialist Cardiology 08/02/22 documented as of this encounter
--- OUTSIDE RECORDS SUMMARY | 2024-12-15 16:59 | XMS_ITS | Encounter Summary ---
Author Organization [facility] Address [address] [place] [address] Care Team Providers Care Wood Scrap Handler Name Role Phone Ashwin Arzola MD Primary Care Provider [phone] Sotero Connell MD Unavailable [phone] Blanco Edwards NP Unavailable [phone] Encounter Details Date Type Department Care Team Description 05/15/2023 Hospital Medical Records [address] [place] [address] Amber Duque MD [address] [place] [address] [phone] Social History Tobacco Use Types Packs/Day Years Used Date Smoking Tobacco: Former Cigarettes 3 15 1 973 - 10/13/1987 Smokeless Tobacco: Former Alcohol Use Standard Drinks/Week Comments No 0 (1 standard drink = 0.6 oz pur e alcohol) Sex Assigned at Date Recorded Not on file Job Start Date Occupation Industry Not on file Not on file Not on file COVID-19 Exposure Response Date Recorded In the last 10 days, have yo u been in contact with someone who was confirmed or suspected to have Coronavirus/COVID-19? No / Unsure 05/08/2023 11:36 AM EDT documented as of this encounter Plan of Treatment Not on file documented as of this encounter Visit Diagnoses Not on filedocumented in this encounter Care Teams Wood Scrap Handler Relationship Specialty Start Date End Date Ashwin Arzola MD [address] [place] [address] PCP - General Internal Medicine 08/01/20 Sotero Connell MD [address] [place] [address] Specialist Cardiology 07/10/21 Blanco Edwards NP [address] [place] [address] Specialist Cardiology 08/02/22 documented as of this encounter
--- OUTSIDE RECORDS SUMMARY | 2024-12-15 16:59 | XMS_ITS | Encounter Summary ---
Author Organization [facility] Address [address] [place] [address] Care Team Providers Care Production Clerk Name Role Phone Sujey Browning MD Primary Care Provider Un available Dudley Brown MD Primary Care Provider Unavail able Nancy Vines DO Primary Care Pro vider Unavailable Ashwin Arzola MD Primary Care Provider Sotero Connell MD Unavailable [phone] [facility] Unavailable [phone] Reason for Visit * Reason Comments E-prescribe Rx Request Encounter Details Date Type Department Care Team Description 04/10/2016 Refill Rheumatology - [address] [address] Lj Lerner MD E-prescribe Rx Request Social History Tobacco Use Types Packs/Day Years [...] encounter Miscellaneous Notes * Telephone Encounter - Denisse Lopez L.P.N. - 04/11/2016 10:44 AM EDT No longer on mtx... * Telephone Encounter - Denisse Lopez L.P.N. - 04/10/2016 1:54 PM EDT Message left for patient to return my call. * Telephone Encounter - Lj Lerner MD - 04/10/2016 11:49 AM EDT Not seen in 6 months. ? If she is still on methotrexate? Dr. Lerner * Telephone Encounter - Jovita Dicksonadelita - 04/10/2016 11:08 AM EDT Patient would like script to be: E-PRESCRIBED/FAXED TO PHARMACY WHEN WAS THE PATIENT'S LAST APPOINTMENT IN ADULT MEDICINE? 04/05/16 WHEN WAS THE LAST TIME THE PATIENT SAW THEIR PCP? Same as above Does patient have an upcoming appointment? Yes 04/11/16 (THE MEDICATION REQUESTED IS ON THE MED LIST ABOVE) All of the medications requested were on the CURRENT MEDS list Did you check the Pharmacy information above?: YES Patient wants: 30 -day supply Is this a mail order prescription request ? NO Patients current insurance carrier is: Payor: [facility] [employer] FFS / Plan: FFS HMO $0 [id number] / Product Type: MEDICAID RISK documented in this encounter Plan of Treatment Not on file documented as of this encounter Visit Diagnoses Not on filedocumented in this encounter Care Teams Production Clerk Relationship Specialty Start Date End Date Sujey Browning MD PCP - General Internal Medicine 03/27/1608/02 Dudley Brown MD PCP - General Internal Medicine 08/03/19 04/12/20 Nancy Vines DO PCP - General Internal Medicine 04/13/20 07/31/20 Ashwin Arzola MD [address] [place] [address] [phone] PCP - General Internal Medicine 08/01/20 Sotero Connell MD [address] [place] [address] [phone] Specialist Cardiology 07/10/21 Blanco Edwards NP [address] [place] [address] [phone] Specialist Cardiology 08/02/22 documented as of this encounter
--- OUTSIDE RECORDS SUMMARY | 2024-12-15 16:59 | XMS_ITS | Encounter Summary ---
Author Organization [facility] Address [address] [place] [address] Care Team Providers Care Recruiter Account Manager Name Role Phone Sujey Browning MD Primary Care Provider Un available Dudley Brown MD Primary Care Provider Unavail able Nancy Vines DO Primary Care Pro vider Unavailable Ashwin Arzola MD Primary Care Provider [phone] Sotero Connell MD Unavailable [phone] [facility] Unavailable [phone] Encounter Details Date Type Department Care Team Description 07/16/2016 Glove Sewer Report Medical Records [address] [place] [address] Erik Langford MD Social History Tobacco Use Types Packs/Day Years [...] on file documented as of this encounter Plan of Treatment Not on file documented as of this encounter Visit Diagnoses Not on filedocumented in this encounter Care Teams Recruiter Account Manager Relationship Specialty Start Date End Date Sujey Browning MD PCP - General Internal Medicine 03/27/1608/02 Dudley Brown MD PCP - General Internal Medicine 08/03/19 04/12/20 Nancy Vines DO PCP - General Internal Medicine 04/13/20 07/31/20 Ashwin Arzola MD [address] [place] [address] PCP - General Internal Medicine 08/01/20 Sotero Connell MD [address] [place] [address] Specialist Cardiology 07/10/21 Blanco Ewdards NP [address] [place] [address] [phone] Specialist Cardiology 08/02/22 documented as of this encounter
--- OUTSIDE RECORDS SUMMARY | 2024-12-15 16:59 | XMS_ITS | Encounter Summary ---
Author Organization [facility] Address [address] [place] [address] Care Team Providers Care Rental Clerk Tool And Equipment Name Role Phone Ashwin Arzola MD Primary Care Provider [phone] Sotero Connell MD Unavailable [phone] Blanco Edwards NP Unavailable [phone] Encounter Details Date Type Department Care Team Description 12/26/2020 Orders Only Adult Medicine [address] [phone] Ashwin Arzola MD [address] [place] [address] [phone] Imbalance (Primary Dx) Social History Tobacco Use Types Packs/Day Years [...] Exposure Response Date Recorded In the last month, have you been in contact with someone who was confirmed or suspected to have Coronavirus / COVID-19? No / Unsure 12/26/2020 9:52 AM EDT documented as of this encounter Plan of Treatment Not on file documented as of this encounter Results * MRI OF BRAIN WITH AND WITHOUT CONTRAST (02/27/2021) Ashwin Arzola MD MRI [facility] [address] [place] [address] documented in this encounter Visit Diagnoses Diagnosis Imbalance- Primary Abnormality of gait documented in this encounter Care Teams Rental Clerk Tool And Equipment Relationship Specialty Start Date End Date Ashwin Arzola MD [address] [place] [address] [phone] PCP - General Internal Medicine 08/01/20 Sotero Connell MD [address] [place] [address] [phone] Specialist Cardiology 07/10/21 Blanco Edwards NP [address] [place] [address] [phone] Specialist Cardiology 08/02/22 documented as of this encounter
--- OUTSIDE RECORDS SUMMARY | 2024-12-15 16:59 | XMS_ITS | Encounter Summary ---
Author Organization [facility] Address [address] [place] [address] Care Team Providers Care Medical Office Technology Instructor Name Role Phone Ashwin Arzola MD Primary Care Provider [phone] Sotero Connell MD Unavailable [phone] [facility] Unavailable [phone] Encounter Details Date Type Department Care Team Description 10/29/2023 Orders Only Medical Records [address] [place] [address] Social History Tobacco Use Types Packs/Day Years [...] Procedure Name Priority Date/Time Associated Diagnosis Comments OUTSIDE PLAIN FILM Routine 10/22/[address] Routine 10/21/2023 documented in this encounter Results * OUTSIDE PLAIN FILM (10/22/2023) [facility] RADIOLOGY * OUTSIDE CT (10/21/2023) [facility] RADIOLOGY documented in this encounter Visit Diagnoses Not on filedocumented in this encounter Care Teams Medical Office Technology Instructor Relationship Specialty Start Date End Date Ashwin Arzola MD [address] [place] [address] [phone] PCP - General Internal Medicine 08/01/20 Sotero Connell MD [address] [place] [address] Specialist Cardiology 07/10/21 Blanco Edwards NP [address] [place] [address] Specialist Cardiology 08/02/22 documented as of this encounter
--- OUTSIDE RECORDS SUMMARY | 2024-12-15 16:59 | XMS_ITS | Encounter Summary ---
Author Organization [facility] Address [address] [place] [address] Care Team Providers Care Burr Picker Name Role Phone Ashwin Arzola MD Primary Care Provider [phone] Sotero Connell MD Unavailable [phone] Blanco Edwards NP Unavailable [phone] Encounter Details Date Type Department Care Team Description 10/20/2023 Hospital Medical Records [address] [place] [address] Social History Tobacco Use Types Packs/Day Years [...] on filedocumented in this encounter Care Teams Burr Picker Relationship Specialty Start Date End Date Ashwin Arzola MD [address] [place], [place] [phone] PCP - General Internal Medicine 08/01/20 Sotero Connell MD [address] [place], [place] [phone] Specialist Cardiology 07/10/21 Blanco Edwards NP [address] [place] [address] [phone] Specialist Cardiology 08/02/22 documented as of this encounter
--- OUTSIDE RECORDS SUMMARY | 2024-12-15 16:59 | XMS_ITS | Encounter Summary ---
Author Organization [facility] Address [address] [place] [address] Care Team Providers Care Contact Lens Flashing Puncher Name Role Phone Sujey Browning MD Primary Care Provider Un available Dudley Brown MD Primary Care Provider Unavail able Nancy Vines DO Primary Care Pro vider Unavailable Ashwin Arzola MD Primary Care Provider [phone] Sotero Connell MD Unavailable [phone] [facility] Unavailable [phone] Encounter Details Date Type Department Care Team Description 05/15/2016 [facility] Only Adult [address] [address] Sujey Browning MD Social History Tobacco Use Types Packs/Day [...] on filedocumented in this encounter Care Teams Contact Lens Flashing Puncher Relationship Specialty Start Date End Date Sujey Browning MD PCP - General Internal Medicine 03/27/1608/02 Dudley Brown MD PCP - General Internal Medicine 08/03/19 04/12/20 Nancy Vines DO PCP - General Internal Medicine 04/13/20 07/31/20 Ashwin Arzola MD [address] [place] [address] PCP - General Internal Medicine 08/01/20 Sotero Connell MD [address] [place], [place] [phone] Specialist Cardiology 07/10/21 Blanco Edwards NP [address] [place], [place] [phone] Specialist Cardiology 08/02/22 documented as of this encounter
--- OUTSIDE RECORDS SUMMARY | 2024-12-15 16:59 | XMS_ITS | Encounter Summary ---
Author Organization [facility] Address [address] [place] [address] Care Team Providers Care Baker Doughnut Name Role Phone Sujey Browning MD Primary Care Provider Un available Dudley Brown MD Primary Care Provider Unavail able Nancy Vines DO Primary Care Pro vider Unavailable Ashwin Arzola MD Primary Care Provider [phone] Sotero Connell MD Unavailable [phone] Blanco Edwards NP Unavailable [phone] Reason for Visit * Reason Onset Date Comments Dye Box Operator Feedback 05/09/2016 PVC Encounter Details Date Type Department Care Team Description 05/09/2016 Telephone Adult Medicine [address] [address] Sujey Browning MD Dye Box Operator Feedback ([facility]) Social History Tobacco Use Types Packs/Day Years [...] encounter Miscellaneous Notes * Telephone Encounter - Santi Beasley - 05/09/2016 2:36 PM EDT No insurance referral required per patient's insurance. Order faxed [facility] Cardiology [phone] and office notes can be pulled from the office by [employer] [facility] Cardiology [phone] Notification letter mailed to patient, PVC will contact patient with appointment information documented in this encounter Plan of Treatment Not on file documented as of this encounter Visit Diagnoses Not on filedocumented in this encounter Care Teams Baker Doughnut Relationship Specialty Start Date End Date Sujey Browning MD PCP - General Internal Medicine 03/27/1608/02 Dudley Brown MD PCP - General Internal Medicine 08/03/19 04/12/20 Nancy Vines DO PCP - General Internal Medicine 04/13/20 07/31/20 Ashwin Arzola MD [address] [place] [address] PCP - General Internal Medicine 08/01/20 Sotero Connell MD [address] [place] [address] Specialist Cardiology 07/10/21 Blanco Edwards NP [address] [place] [address] Specialist Cardiology 08/02/22 documented as of this encounter
--- OUTSIDE RECORDS SUMMARY | 2024-12-15 16:59 | XMS_ITS | Encounter Summary ---
Author Organization [facility] Address [address] [place] [address] Care Team Providers Care Gear Tester Name Role Phone Sujey Browning MD Primary Care Provider Un available Dudley Brown MD Primary Care Provider Unavail able Nancy Vines DO Primary Care Pro vider Unavailable Ashwin Arzola MD Primary Care Provider [phone] Sotero Connell MD Unavailable [phone] [facility] Unavailable [phone] Encounter Details Date Type Department Care Team Description 06/21/2016 Release of Information Medical Records [address] [place] [address] Abstract, Provider Social History Tobacco Use Types Packs/Day Years [...] on filedocumented in this encounter Care Teams Gear Tester Relationship Specialty Start Date End Date Sujey Browning MD PCP - General Internal Medicine 03/27/1608/02 Dudley Brown MD PCP - General Internal Medicine 08/03/19 04/12/20 Nancy Vines DO PCP - General Internal Medicine 04/13/20 07/31/20 Ashwin Arzola MD [address] [place] [address] [phone] PCP - General Internal Medicine 08/01/20 Sotero Connell MD [address] [place] [address] [phone] Specialist Cardiology 07/10/21 Blanco Edwards NP [address] [place] [address] [phone] Specialist Cardiology 08/02/22 documented as of this encounter
--- OUTSIDE RECORDS SUMMARY | 2024-12-15 16:59 | XMS_ITS | Encounter Summary ---
Author Organization [facility] Address [address] [place] [address] Care Team Providers Care Chute Tapper Name Role Phone Ashwin Arzola MD Primary Care Provider [phone] Sotero Connell MD Unavailable [phone] Blanco Edwards NP Unavailable [phone] Encounter Details Date Type Department Care Team Description 07/29/2023 Orders Only Medical Records [address] [place] [address] Erik Langford MD Social History Tobacco Use [...] suspected to have Coronavirus/COVID-19? No / Unsure 07/10/2023 9:03 AM EDT documented as of this encounter Plan of Treatment Not on file documented as of this encounter Procedures Procedure Name Priority Date/Time Associated Diagnosis Comments OUTSIDE CT Routine 07/25/2023 documented in this encounter Results * OUTSIDE CT (07/25/2023) Erik Langford MD RADIOLOGY documented in this encounter Visit Diagnoses Not on filedocumented in this encounter Care Teams Chute Tapper Relationship Specialty Start Date End Date Ashwin Arzola MD [address] [place] [address] PCP - General Internal Medicine 08/01/20 Sotero Connell MD [address] [place] [address] [phone] Specialist Cardiology 07/10/21 Blanco Edwards NP [address] [place] [address] [phone] Specialist Cardiology 08/02/22 documented as of this encounter
--- OUTSIDE RECORDS SUMMARY | 2024-12-15 16:59 | XMS_ITS | Encounter Summary ---
Author Organization [facility] Address [address] [place] [address] Care Team Providers Care Lead Software Developer Name Role Phone Ashwin Arzola MD Primary Care Provider [phone] Sotero Connell MD Unavailable [phone] Blanco Edwards NP Unavailable [phone] Reason for Visit * Reason Onset Date Comments Prior Authorization 05/09/2023 [facility] Encounter Details Date Type Department Care Team Description 05/09/2023 Telephone Gastroenterology - [address] [place] [phone] Amber Duque MD [address] [place] [address] Prior Authorization (GASTRO) Social History Tobacco Use Types Packs/Day Years [...] AM EDT documented as of this encounter Miscellaneous Notes * Telephone Encounter - Dayami Galvin - 05/09/2023 9:58 AM EDT [facility] - No Auth Required per Ins. Decision ID #:[id number] Order Forwared to GI Schedulers /GI Team * Telephone Encounter - Aicha Clayton - 05/09/2023 9:01 AM EDT Images from the original note were not included. [facility] PA & External surgeon [facility] pre-op pool Pre-auth needed Patient is scheduled for an Endoscopy on 05/15/23 Diagnosis dysphagia Patients insurance: [facility] Appointment is with Dayan Duque MD Code to process pre-auth for: [id number] Location of procedure: [facility] documented in this encounter Plan of Treatment Not on file documented as of this encounter Visit Diagnoses Not on filedocumented in this encounter Care Teams Lead Software Developer Relationship Specialty Start Date End Date Ashwin Arzola MD [address] [place] [address] PCP - General Internal Medicine 08/01/20 Sotero Connell MD [address] [place] [address] Specialist Cardiology 07/10/21 Blanco Edwards NP [address] [place] [address] Specialist Cardiology 08/02/22 documented as of this encounter
--- OUTSIDE RECORDS SUMMARY | 2024-12-15 16:59 | XMS_ITS | Encounter Summary ---
Author Organization [facility] Address [address] [place] [address] Care Team Providers Care Wardrobe Image Consultant Name Role Phone Sujey Browning MD Primary Care Provider Un available Dudley Brown MD Primary Care Provider Unavail able Nancy Vines DO Primary Care Pro vider Unavailable Ashwin Arzola MD Primary Care Provider [phone] Sotero Connell MD Unavailable [phone] [facility] Unavailable [phone] Encounter Details Date Type Department Care Team Description 08/14/2016 [facility] Only Adult [address] [address] Sujey Browning MD Social History Tobacco Use [...] on filedocumented in this encounter Care Teams Wardrobe Image Consultant Relationship Specialty Start Date End Date Sujey Browning MD PCP - General Internal Medicine 03/27/1608/02 Dudley Brown MD PCP - General Internal Medicine 08/03/19 04/12/20 Nancy Vines DO PCP - General Internal Medicine 04/13/20 07/31/20 Ashwin Arzola MD [address] [place] [address] PCP - General Internal Medicine 08/01/20 Sotero Connell MD [address] [place], [place] [phone] Specialist Cardiology 07/10/21 Blanco Edwards NP [address] [place], [place] [phone] Specialist Cardiology 08/02/22 documented as of this encounter
--- OUTSIDE RECORDS SUMMARY | 2024-12-15 16:59 | XMS_ITS | Encounter Summary ---
Author Organization [facility] Address [address] [place] [address] Care Team Providers Care Physician Practice Consultant Name Role Phone Name, Braulio CHIANG Primary Care Provider Unavailabl Dudley Mancuso MD Primary Care Provider Unavail able Ajit Montanez MD Primary Care Provide r Unavailable Sujey Browning MD Primary Care Provider Un available Dudley Brown MD Primary Care Provider Unavail able Nancy Vines DO Primary Care Pro vider Unavailable Ashwin Arzola MD Primary Care Provider [phone] Sujey Browning MD Primary Care Provider Un available Sotero Connell MD Unavailable [phone] Blanco Edwards NP Unavailable [phone] Encounter Details Date Type Department Care Team Description 02/19/2012 Telephone Adult Medicine [address] [id number] Name, MD Braulio Social History Tobacco Use Types Packs/Day Years [...] encounter Miscellaneous Notes * Telephone Encounter - Rowan Blevins M.A. - 02/19/2012 4:43 PM EDT Spoke to patient Melyssa and informed her DrMillie Name referred her to have a cpap titration sleep study.Her daughter Suze spoke to me and told me they already called and scheduled the appt. documented in this encounter Plan of Treatment Not on file documented as of this encounter Visit Diagnoses Not on filedocumented in this encounter Care Teams Physician Practice Consultant Relationship Specialty Start Date End Date Name, [...] Internal Medicine 04/13/20 07/31/20 Ashwin Arzola MD [address] [place] [address] [id number] PCP - General Internal Medicine 08/01/20 Sujey Browning MD PCP - General 07/03/15 11/12/15 Sotero Connell MD [address] [place] [address] 87654 Specialist Cardiology 07/10/21 Blanco Edwards NP [address] [place] [address] 61940 Specialist Cardiology 08/02/22 documented as of this encounter
--- OUTSIDE RECORDS SUMMARY | 2024-12-15 16:59 | XMS_ITS | Encounter Summary ---
Author Organization [facility] Address [address] [place] [address] Care Team Providers Care Tunnel Man Name Role Phone Name, Braulio CHIANG Primary Care Provider Unavailabl Dudley Mancuso MD Primary Care Provider Unavail able Ajit Montanez MD Primary Care Provide r Unavailable Sujey Browning MD Primary Care Provider Un available Dudley Brown MD Primary Care Provider Unavail able Nancy Vines DO Primary Care Pro vider Unavailable Ashwin Arzola MD Primary Care Provider [phone] Sujey Browning MD Primary Care Provider Un available Sotero Connell MD Unavailable [phone] Blanco Edwards NP Unavailable [phone] Encounter Details Date Type Department Care Team Description 03/31/2012 [facility] Medical Records [address] [place] [address] Shawn Holman Social History Tobacco Use Types Packs/Day Years [...] on filedocumented in this encounter Care Teams Tunnel Man Relationship Specialty Start Date End Date Name, [...] Internal Medicine 04/13/20 07/31/20 Ashwin Arzola MD [address] [place] [address] [id number] PCP - General Internal Medicine 08/01/20 Sujey Browning MD PCP - General 07/03/15 11/12/15 Sotero Connell MD [address] [place] [address] [phone] Specialist Cardiology 07/10/21 Blanco Edwards NP [address] [place] [address] 48926 Specialist Cardiology 08/02/22 documented as of this encounter
--- OUTSIDE RECORDS SUMMARY | 2024-12-15 16:59 | XMS_ITS | Encounter Summary ---
Author Organization [facility] Address [address] [place] [address] Care Team Providers Care Software Quality Specialist Name Role Phone Name, Braulio CHIANG Primary Care Provider Unavailabl Dudley Mancuso MD Primary Care Provider Unavail able Ajit Montanez MD Primary Care Provide r Unavailable Sujey Browning MD Primary Care Provider Un available Dudley Brown MD Primary Care Provider Unavail able Nancy Vines DO Primary Care Pro vider Unavailable Ashwin Arzola MD Primary Care Provider [phone] Sujey Browning MD Primary Care Provider Un available Sotero Connell MD Unavailable [phone] Blanco Edwards NP Unavailable [phone] Encounter Details Date Type Department Care Team Description 10/19/2013 [facility] Medical Records [address] [place] [address] Renuka Paz MD Social History Tobacco Use Types Packs/Day [...] on filedocumented in this encounter Care Teams Software Quality Specialist Relationship Specialty Start Date End Date Name, [...] Internal Medicine 04/13/20 07/31/20 Ashwin Arzola MD [address] [place] [id number] PCP - General Internal Medicine 08/01/20 Sujey Browning MD PCP - General 07/03/15 11/12/15 Sotero Connell MD [address] [place] [address] 84051 Specialist Cardiology 07/10/21 Blanco Edwards NP [address] [place] [address] 13914 Specialist Cardiology 08/02/22 documented as of this encounter
--- OUTSIDE RECORDS SUMMARY | 2024-12-15 16:59 | XMS_ITS | Encounter Summary ---
Author Organization [facility] Address [address] [place] [address] Care Team Providers Care Coal Crusher Operator Name Role Phone Sujey Browning MD Primary Care Provider Un available Dudley Brown MD Primary Care Provider Unavail able Nancy Vines DO Primary Care Pro vider Unavailable Ashwin Arzola MD Primary Care Provider Sotero Connell MD Unavailable [phone] [facility] Unavailable [phone] Reason for Visit * Reason Onset Date Comments Prior Authorization 06/07/2016 Encounter Details Date Type Department Care Team Description 06/07/2016 Telephone Adult Medicine [address] [id number] Sujey Browning MD Prior Authorization Social History Tobacco Use Types Packs/Day Years [...] encounter Miscellaneous Notes * Telephone Encounter - Beverly Lopez M.A. - 06/07/2016 3:16 PM EDT Soma not covered by insurance.. Must have tried two medications on formulary and failed. The patient has used meloxicam . Covered formulary meds: tizanidine tablets or baclofen Thank you Please reply back to p [phone] prior authorization amirah Lopez C.M.A. [facility] Prior Authorizations Ext: [phone] * Telephone Encounter - Viri Chase - 06/07/2016 1:28 PM EDT Pre Authorization for Medication Does the patient already have this medication?NO Is this a Cover My Meds request: [place] of Medication carisoprodol (SOMA) 350 MG tablet Dose of Medication How does patient take this med? What other dosage or similar medication have you tried in the past for this problem Patients current medical insurance [facility] What Prescription Plan does the patient have? Prescription Plan Tel # from back of prescription ID card [phone] What is the patients Prescription Plan ID #? [id number] What Pharmacy does the patient use? [facility] / Plan: FFS HMO $0 [place] [id number] / Product Type: MEDICAID RISK documented in this encounter Plan of Treatment Not on file documented as of this encounter Visit Diagnoses Not on filedocumented in this encounter Care Teams Coal Crusher Operator Relationship Specialty Start Date End Date Sujey Browning MD PCP - General Internal Medicine 03/27/1608/02 Dudley Brown MD PCP - General Internal Medicine 08/03/19 04/12/20 Nancy Vines DO PCP - General Internal Medicine 04/13/20 07/31/20 Ashwin Arzola MD [address] [place] [address] [id number] PCP - General Internal Medicine 08/01/20 Sotero Connell MD [address] [place] [address] [phone] Specialist Cardiology 07/10/21 Blanco Edwards NP [address] [place] [address] 17108 Specialist Cardiology 08/02/22 documented as of this encounter
--- OUTSIDE RECORDS SUMMARY | 2024-12-15 16:59 | XMS_ITS | Encounter Summary ---
Author Organization [facility] Address [address] [place] [address] Care Team Providers Care Home Advisor Name Role Phone Sujey Browning MD Primary Care Provider Un available Dudley Brown MD Primary Care Provider Unavail able Nancy Vines DO Primary Care Pro vider Unavailable Ashwin Arzola MD Primary Care Provider [phone] Sotero Connell MD Unavailable [phone] [facility] Unavailable [phone] Encounter Details Date Type Department Care Team Description 05/09/2016 [facility] Medical Records [address] [place] [address] Adolfo Reyes MD Social History Tobacco Use Types Packs/Day [...] Name Priority Date/Time Associated Diagnosis Comments OUTSIDE ECHO Routine 05/08/2016 documented in this encounter Results * OUTSIDE ECHO (05/08/2016) Provider Default CARDIOLOGY documented in this encounter Visit Diagnoses Not on filedocumented in this encounter Care Teams Home Advisor Relationship Specialty Start Date End Date Sujey Browning MD PCP - General Internal Medicine 03/27/1608/02 Dudley Brown MD PCP - General Internal Medicine 08/03/19 04/12/20 Nancy Vines DO PCP - General Internal Medicine 04/13/20 07/31/20 Ashwin Arzola MD [address] [place] [address] [phone] PCP - General Internal Medicine 08/01/20 Sotero Connell MD [address] [place] [address] [phone] Specialist Cardiology 07/10/21 Blanco Edwards NP [address] [place] [address] [phone] Specialist Cardiology 08/02/22 documented as of this encounter
--- OUTSIDE RECORDS SUMMARY | 2024-12-15 16:59 | XMS_ITS | Encounter Summary ---
Author Organization [facility] Address [address] [place] [address] Care Team Providers Care Heel Shaper Name Role Phone Name, Braulio CHIANG Primary Care Provider Unavailabl Dudley Mancuso MD Primary Care Provider Unavail able Ajit Montanez MD Primary Care Provide r Unavailable Sujey Browning MD Primary Care Provider Un available Dudley Brown MD Primary Care Provider Unavail able Nancy Vines DO Primary Care Pro vider Unavailable Ashwin Arzola MD Primary Care Provider [phone] Sujey Browning MD Primary Care Provider Un available Sotero Connell MD Unavailable [phone] Blanco Edwards NP Unavailable [phone] Encounter Details Date Type Department Care Team Description 09/30/2013 [facility] Medical Records [address] [place] [address] Vangie Murdock Social History Tobacco Use Types Packs/Day Years [...] on filedocumented in this encounter Care Teams Heel Shaper Relationship Specialty Start Date End Date Name, [...] Internal Medicine 04/13/20 07/31/20 Ashwin Arzola MD [address] [place] [address] [phone] PCP - General Internal Medicine 08/01/20 Sujey Browning MD PCP - General 07/03/15 11/12/15 Sotero Connell MD [address] [place] [address] [phone] Specialist Cardiology 07/10/21 Blanco Edwards NP [address] [place] [address] 25699 Specialist Cardiology 08/02/22 documented as of this encounter
--- OUTSIDE RECORDS SUMMARY | 2024-12-15 16:59 | XMS_ITS | Encounter Summary ---
Author Organization [facility] Address [address] [place] [address] Care Team Providers Care University Demonstrator Name Role Phone Name, Braulio CHIANG Primary Care Provider Unavailabl Dudley Mancuso MD Primary Care Provider Unavail able Ajit Montanez MD Primary Care Provide r Unavailable Sujey Browning MD Primary Care Provider Un available Dudley Brown MD Primary Care Provider Unavail able Nancy Vines DO Primary Care Pro vider Unavailable Ashwin Arzola MD Primary Care Provider [phone] Sujey Browning MD Primary Care Provider Un available Sotero Connell MD Unavailable [phone] Blanco Edwards NP Unavailable [phone] Encounter Details Date Type Department Care Team Description 11/29/2011 Release of Information Medical Records [address] [place] [id number] Abstract, Provider Social History Tobacco Use Types Packs/Day Years Used Date Smoking Tobacco: Former Cigarettes Q uit: 10/13/1987 Smokeless Tobacco: Never Alcohol Use Standard Drinks/Week Comments Not Asked 0 (1 standard drink = 0.6 oz pur e alcohol) Sex Assigned at Date Recorded Not on file Job Start Date Occupation Industry Not on file Not on file Not on file documented as of this encounter Plan of Treatment Not on file documented as of this encounter Visit Diagnoses Not on filedocumented in this encounter Care Teams University Demonstrator Relationship Specialty Start Date End Date Name, [...] Medicine 04/13/20 07/31/20 Ashwin Arzola MD [address] [place] [address] [phone] PCP - General Internal Medicine 08/01/20 Sujey Browning MD PCP - General 07/03/15 11/12/15 Sotero Connell MD [address] [place] [address] [phone] Specialist Cardiology 07/10/21 Blanco Edwards NP [address] [place] [address] 67726 Specialist Cardiology 08/02/22 documented as of this encounter
--- OUTSIDE RECORDS SUMMARY | 2024-12-15 16:59 | XMS_ITS ---
Author Name Marty GEORGESBeatriz Address [address] [place] [address] Phone [phone] [facility] Care Team Providers Care Manager Drive Name Role Phone Beatriz Ferguson Unavailable [phone] [facility] Unavailable [phone] Shaina Olivares Unavailable Unavailable Ashwin Arzola Unavailable [phone] [facility] Unavailab [phone] Unavailable Unavailable Unavailable Reason for Referral Not Available Allergies, adverse reactions, alerts Allergen Type Reaction Severity Status Onset Date Penicillin Allergy to substance (disorder) Rash Unknown Active N/A History of medication use Medication Class Instructions Start Date End Date Zolpidem Tartrate 10 mg Tab TAKE 1 TABLE T BY MOUTH AT BEDTIME 2022-02-21 2023-11-20 QUEtiapine Fumarate 100 mg Tab TAKE 1 TABLET BY MOUTH AT BEDTIME. INCREASE FROM 50 MG 2021-12-20 2023-11-20 Gabapentin 100 mg Cap TAKE 1 CAPSULE BY MOUTH NIGHTLY FOR DIABETIC PAIN 2022-02-26 2023-01-02 Lantus SoloStar 100 UNIT/ML Solution Pen-injector Subcutaneous ADMINISTER 15UNITS UNDER THE SKIN DAILY 2021-06-04 No Data Available Albuterol Sulfate HFA 108 (9 0 Base) MCG/ACT Aerosol Solution INHALE 2 PUFFS INTO THE LUNGS EVERY 4 HOURS NEEDED FOR COUGH OR WHEEZING 2021-12-25 No Data Available ARIPiprazole 20 mg Tab TAKE 1 TABLET BY MOUTH EVERY DAY 2021-12-20 2023-01-02 Aspirin Low Dose 81 mg Tab delayed rel TAKE 1 TABLET BY MOUTH EVERY DAY 2021-11-23 No Data Available Atorvastatin Calcium 80 mg Tab TAKE 1 TABLET BY MOUTH AT BEDTIME 2021-11-16 2023-01-02 clonazePAM 1 mg Tab TAKE 1 TABLET BY ATUL TH AT BEDTIME 2022-01-25 No Data Available DULoxetine 20 mg Cap delayed rel TAKE 1 CAPSULE BY MOUTH ONCE A DAY. TAKE WITH 60MG CAPSULE FOR TOTAL DOSE OF 80MG 2021-12-20 2023-11-20 metFORMIN ER 500 mg Tab ER 24hr TAKE 1 TABLET BY MOUTH DAILY WITH BREAKFAST 2021-08-21 2022-09-10 Metoprolol Succinate ER 25 m g Tab ER 24hr TAKE 1 TABLET BY MOUTH DAILY 2022-01-09 No Data Available Montelukast Sodium 10 mg Tab TAKE 1 TABL ET BY MOUTH AT BEDTIME 2022-02-07 No Data Available Naproxen 500 mg Tab TAKE 1 TABLET BY ATUL TH TWICE DAILY WITH MEALS 2022-01-11 2023-01-02 Omeprazole 20 mg Cap delayed rel TAKE 1 CAPSULE BY MOUTH EVERY MORNING BEFORE BREAKFAST 2021-11-16 2023-11-20 OneTouch Ultra Strip USE TO CHECK SUGARS TWICE DAILY 2021-11-30 No Data Available Spiriva Respimat 1.25 MCG/AC T Aerosol Solution INHALE 2 PUFFS INTO THE LUNGS DAILY 2021-12-26 2023-01-02 Vitamin D (Ergocalciferol) 1.25 mg (48803 UT) Cap TAKE 1 CAPSULE BY MOUTH 1 TIME A WEEK 2021-11-16 2023-01-02 OneTouch Delica Plus [id number] Miscellaneous USE DIRECTED TWICE DAILY 2021-11-30 No Data Available Anoro Ellipta 62.5-25 MCG/AC T Aerosol Powder Breath Activated INHALE 1 PUFF INTO THE LUNGS DAILY 2022-03-20 No Data Available traMADol 50 mg Tab TAKE 1 TABLET BY ATUL TH EVERY 8 HOURS NEEDED 2022-04-08 2023-01-02 BINAXNOW COVID-19 AG SELF TEST KIT TEST DIRECTED TODAY 2022-04-26 2022-11-28 Amitriptyline 100 mg Tab TAKE 1 TABLET B Y MOUTH EVERY DAY AT BEDTIME 2022-05-01 No Data Available Oaqcubcqeb-UDIE-Gxwmjkct 50/325/40 mg Tab TAKE 1 TABLET BY MOUTH EVERY 6 HOURS NEEDED 2022-05-01 No Data Available B-D PEN NDL SHRT [id number](02/25) CARMEN USE DIRECTED THREE TIMES DAILY 2021-08-21 No Data Available Diclofenac Sodium 1 % Gel APPLY 4 GRAMS TOPICALLY TO THE AFFECTED AREA TWICE DAILY 2022-05-29 No Data Available Furosemide 40 mg Tab TAKE 1 TABLET BY [facility] DAILY 2022-07-25 2023-01-02 Mapap Arthritis Pain 650 mg Tab ER TAKE 1 TABLET BY MOUTH TWICE DAILY X 10 DAYS 2022-08-06 No Data Available Ammonium Lactate 12 % Lotion APPLY TO TH ICK NAILS AND SKIN OF BOTH FEET DAILY AT NIGHT. WEAR SOCKS TO BEDTIME 2022-08-28 No Data Available predniSONE 20 mg Tab 2 tablets orally da spencer for 10 days 2022-12-04 2023-01-02 Atorvastatin Calcium 80 mg Tab take 1 tablet orally once daily 2023-01-09 No Data Available Mylanta Maximum Strength 400/400/40 mg/5ML Suspension 10 ml orally 4 times per day after meals and at bedtime 2023-03-28 No Data Available Metoclopramide 10 mg Tab TAKE 1 TABLET B Y MOUTH FOUR TIMES DAILY 2023-05-30 2023-11-20 Gabapentin 300 mg Cap TAKE 1 CAPSULE BY MOUTH BID 2022 No Data Available Trelegy Ellipta 100-62.5-25 MCG/ACT Aerosol Powder Breath Activated INHALE 1 PUFF INTO THE LUNGS DAILY 2023-03-25 No Data Available Famotidine 20 mg Tab TAKE 1 TABLET BY [facility] AT BEDTIME 2023-06-23 No Data Available Ondansetron 4 mg Tab TAKE 1 TABLET BY [facility] EVERY 8 HOURS NEEDED FOR NAUSEA 2023-06-23 No Data Available Loratadine 10 mg Tab TAKE 1 TABLET BY [facility] EVERY DAY 2023-07-03 No Data Available Cetirizine 10 mg Tab TAKE 1 TABLET BY [facility] AT BEDTIME 2023-07-05 No Data Available Nystatin 845056 UNIT/GM Powder APPLY TOPICALLY FOUR TIMES DAILY NEEDED 2023-07-05 No Data Available metFORMIN ER 500 mg Tab ER 24hr TAKE 1 TABLET BY MOUTH TWICE DAILY 2023-07-10 No Data Available Ciclopirox 0.77 % Gel APPLY TOPICALLY DA SPENCER DIRECTED 2023-08-05 No Data Available Nitrofurantoin Monohyd Macro 100 mg Cap TAKE 1 CAPSULE BY MOUTH EVERY 12 HOURS FOR 7 DAYS 2023-08-06 No Data Available traMADol 50 mg Tab TAKE 1 TABLET BY [facility] EVERY 8 HOURS NEEDED 2023-07-30 No Data Available Magnesium Oxide 400 mg Tab TAKE 1 TABLET BY MOUTH EVERY NIGHT AT BEDTIME 2023-10-29 No Data Available risperiDONE 1 mg Tab TAKE 1 TABLET BY MO UTH TWICE DAILY 2023-10-29 No Data Available Stimulant Laxative 8.6/50 mg Tab TAKE 1 TABLET BY MOUTH TWICE DAILY 2023-10-29 No Data Available VITAMIN B-6 50MG TABLETS TAKE 1 TABLET B Y MOUTH EVERY DAY 2023-10-29 No Data Available Docusate Sodium 100 mg Cap TAKE ONE CAPS ULE BY MOUTH TWICE DAILY 2023-11-03 No Data Available Pantoprazole Sodium 40 mg Ta b delayed rel TAKE 1 TABLET BY MOUTH DAILY 2023-11-03 No Data Available Senna 8.6 mg Tab TAKE 1 TABLET BY ATUL TH DAILY 2023-11-03 No Data Available Naproxen 500 mg Tab TAKE 1 TABLET BY ATUL TH TWICE DAILY WITH MEALS 2023-11-07 No Data Available UNIFINE [id number] PEN NEEDLES USE DIREC CODY THREE TIMES DAILY 2023-11-07 2023-11-26 Azithromycin 250 mg Tab TAKE 2 TABLETS B Y MOUTH FOR 1 DAY THEN TAKE 1 TABLET BY MOUTH DAILY FOR 4 DAYS 2023-11-11 No Data Available Cefuroxime Axetil 250 mg Tab TAKE 1 TABL ET BY MOUTH TWICE DAILY 2023-11-19 No Data Available Nystatin 004986 UNIT/GM Powder apply to affected area daily, PRN 2023-11-25 No Data Available Doxycycline Hyclate 100 mg Tab Take 1 tablet PO twice daily for 7 days. 2023-11-25 No Data Available Doxycycline Hyclate 100 mg Tab Take 1 tablet PO twice daily for 7 days. 2023-11-25 No Data Available DULoxetine 20 mg Cap delayed rel No Data Available 2023-02-25 No Data Available Zolpidem Tartrate 10 mg Tab TAKE 1 TABLE T BY MOUTH AT BEDTIME 2023-09-30 No Data Available MAG-OXIDE 400MG TABLETS TAKE 1 TABLET BY MOUTH EVERY DAY 2023-12-24 No Data Available Problem List Problem Status Onset Date Resolved Date COPD exacerbation Resolved 2022-12-03 2023-01-09 Unspecified inflammatory spo ndylopathy, cervical region Active 2022-09-10 N/A Pulmonary fibrosis, unspecified Active 8 N/A Frequent falls Active 2023-01-09 N/A Migraine Active 2023-01-09 N/A Burning chest pain Resolved 2023-03-28 2023-03-14 1 GERD (gastroesophageal reflux disease) Active 03-09-29 N/A Bladder incontinence Active 2022-09-10 N/A Hemiplegia and hemiparesis f ollowing cerebral infarction affecting left non-dominant side Active 2022-08-20 N/A Chronic obstructive pulmonary disease, unspecified Act rogelio 2022-08-20 N/A Schizophrenia Active 2022-09-10 N/A Morbid obesity due to excess calories Active 12-13-29 N/A Other problems related to id dical facilities and other health care Active 2023-11-24 N/A Type 2 diabetes mellitus wit h diabetic polyneuropathy; diabetic cataract Active 2022-08-20 N/A Major depressive disorder, r ecurrent, severe with psychotic symptomsInsomniaGAD Active 2022-09-10 N/A Hypertensive heart disease w ith heart failure with secondary hyperaldosteronismAtherosclerosis of aorta Active 2022-09-10 N/A Encounters Encounters Type Facility Date of Service Diagnosis/Co mplaint Pain Assessment - Pain Documented on a Pain Scale (1125F) [facility], ([place] Pain Assessment - Pain Documented on a Pain Scale (1125F) [facility] Pain Assessment - Pain Documented on a Pain Scale (1125F) [facility] Pain Assessment - Pain Documented on a Pain Scale (1125F) [facility] ([place] Pain Assessment - Pain Documented on a Pain Scale (1125F) [facility] [place] Pain Assessment - Pain Documented on a Pain Scale (1125F) [facility] Pain Assessment - Pain Documented on a Pain Scale (1125F) [facility] Pain Assessment - Pain Documented on a Pain Scale (1125F) [facility]20[place] Type 2 diabetes mellitus wit h diabetic polyneuropathyHemiplga following cerebral infrc affecting left nondom sideChronic obstructive pulmonary disease, unspecifiedPulmonary fibrosis, unspecifiedMajor depressive disorder, recurrent, severe with psychotic symptomsInsomnia, unspecifiedUnspecified inflammatory spondylopathy, cervical regionVitamin D deficiency, unspecifiedHypertensive heart disease with heart failureSchizophrenia, unspecifiedType 2 diabetes mellitus with diabetic cataractGastro-esophageal reflux disease without esophagitisUnspecified urinary incontinenceHeart failure, unspecifiedLong term (current) use of insulinLong term (current) use of oral hypoglycemic drugs Estab. patient 20-29min; 1 stable chronic or 2 minor; add add modifier 95 for video, modifier 93 for phone [facility], ([place] 10/03/2022 Hypertensive heart disease w ith heart failureHeart failure, unspecifiedType 2 diabetes mellitus with diabetic polyneuropathyHemiplga following cerebral infrc affecting left nondom sideChronic obstructive pulmonary disease, unspecifiedChronic respiratory failure, unsp w hypoxia or hypercapniaPulmonary fibrosis, unspecifiedMajor depressive disorder, recurrent, severe with psychotic symptomsInsomnia, unspecifiedUnspecified inflammatory spondylopathy, cervical regionVitamin D deficiency, unspecifiedSecondary hyperaldosteronismSchizophrenia, unspecifiedType 2 diabetes mellitus with diabetic cataractGastro-esophageal reflux disease without esophagitisUnspecified urinary incontinenceAnxiety disorder, unspecified RN, CN or CP time with patient by phone; use with 1111F, BP, A1c or other CPTII codes [facility] 11/28/2022 Encounter for other specifie d aftercare RN, CN or CP time with patient by phone; use with 1111F, BP, A1c or other CPTII codes [facility] 11/28/2022 No Data Available [facility]20[place] Chronic obstructive pulmonar y disease with (acute) exacerbation No Data Available [facility] 12[place]20[place] Estab. patient 30-39min; chronic exacerbation, 2 stable chronic or 1 acute illness add add modifier 95 for video, (do not use for phone, instead use [id number]) [facility] 01/09/2023 Type 2 diabetes mellitus wit h diabetic polyneuropathyHemiplga following cerebral infrc affecting left nondom sideChronic obstructive pulmonary disease, unspecifiedChronic respiratory failure, unsp w hypoxia or hypercapniaPulmonary fibrosis, unspecifiedMajor depressive disorder, recurrent, severe with psychotic symptomsInsomnia, unspecifiedUnspecified inflammatory spondylopathy, cervical regionVitamin D deficiency, unspecifiedHypertensive heart disease with heart failureHeart failure, unspecifiedSecondary hyperaldosteronismSchizophrenia, unspecifiedType 2 diabetes mellitus with diabetic cataractGastro-esophageal reflux disease without esophagitisUnspecified urinary incontinenceAnxiety disorder, unspecifiedMorbid (severe) obesity due to excess caloriesRepeated fallsMigraine, unspecified, not intractable, without status migrainosusAtherosclerosis of aorta Estab. patient 30-39min; chronic exacerbation, 2 stable chronic or 1 acute illness add add modifier 95 for video, (do not use for phone, instead use [id number]) [facility] 01[place]20[place] Estab. patient 30-39min; chronic exacerbation, 2 stable chronic or 1 acute illness add add modifier 95 for video, (do not use for phone, instead use [id number]) [facility] 01[place]09/2023 Estab. patient 30-39min; chronic exacerbation, 2 stable chronic or 1 acute illness add add modifier 95 for video, (do not use for phone, instead use [id number]) [facility] 01/09/2023 Estab. patient 30-39min; chronic exacerbation, 2 stable chronic or 1 acute illness add add modifier 95 for video, (do not use for phone, instead use [id number]) [facility] 01[place]09/2023 Estab. patient 30-39min; chronic exacerbation, 2 stable chronic or 1 acute illness add add modifier 95 for video, (do not use for phone, instead use [id number]) [facility] 01/09/2023 Estab. patient 30-39min; chronic exacerbation, 2 stable chronic or 1 acute illness add add modifier 95 for video, (do not use for phone, instead use [id number]) [facility] 01/09/2023 Estab. patient 30-39min; chronic exacerbation, 2 stable chronic or 1 acute illness add add modifier 95 for video, (do not use for phone, instead use [id number]) [facility] 01/09/2023 Estab. patient 30-39min; chronic exacerbation, 2 stable chronic or 1 acute illness add add modifier 95 for video, (do not use for phone, instead use [id number]) [facility] 01/[place]2023 RN, CN or CP time with patient by phone; use with 1111F, BP, A1c or other CPTII codes [facility] 01/02/2023 Encounter for other specifie d aftercare RN, CN or CP time with patient by phone; use with 1111F, BP, A1c or other CPTII codes [facility] 01/02/2023 No Data Available [facility] [place] 03/28/2023 Other chest pain No Data Available [facility] Chronic obstructive pulmonar y disease, unspecifiedChronic respiratory failure, unsp w hypoxia or hypercapniaSchizophrenia, unspecified No Data Available [facility] 04[place]20[place] No Data Available [facility] No Data Available [facility] No Data Available [facility] No Data Available [facility] No Data Available [facility] [place]/08/2023 Type 2 diabetes mellitus wit h diabetic polyneuropathyHemiplga following cerebral infrc affecting left nondom sideChronic obstructive pulmonary disease, unspecifiedChronic respiratory failure, unsp w hypoxia or hypercapniaPulmonary fibrosis, unspecifiedMajor depressive disorder, recurrent, severe with psychotic symptomsInsomnia, unspecifiedUnspecified inflammatory spondylopathy, cervical regionVitamin D deficiency, unspecifiedHypertensive heart disease with heart failureSecondary hyperaldosteronismHeart failure, unspecifiedSchizophrenia, unspecifiedType 2 diabetes mellitus with diabetic cataractGastro-esophageal reflux disease without esophagitisUnspecified urinary incontinenceAnxiety disorder, unspecifiedMorbid (severe) obesity due to excess caloriesRepeated fallsMigraine, unspecified, not intractable, without status migrainosusAtherosclerosis of aorta No Data Available [facility] No Data Available [facility] No Data Available [facility] No Data Available [facility] No Data Available [facility] No Data Available [facility]2023 Type 2 diabetes mellitus wit h diabetic polyneuropathyHemiplga following cerebral infrc affecting left nondom sideChronic obstructive pulmonary disease, unspecifiedChronic respiratory failure, unsp w hypoxia or hypercapniaPulmonary fibrosis, unspecifiedMajor depressive disorder, recurrent, severe with psychotic symptomsInsomnia, unspecifiedUnspecified inflammatory spondylopathy, cervical regionVitamin D deficiency, unspecifiedHypertensive heart disease with heart failureSecondary hyperaldosteronismHeart failure, unspecifiedSchizophrenia, unspecifiedUnsp psychosis not due to a substance or known physiol condOther symptoms and signs involving cognitive functions and awarenessType 2 diabetes mellitus with diabetic cataractGastro-esophageal reflux disease without esophagitisUnspecified urinary incontinenceAnxiety disorder, unspecifiedMorbid (severe) obesity due to excess caloriesRepeated fallsMigraine, unspecified, not intractable, without status migrainosusAtherosclerosis of aortaOther problems related to medical facilities and other health care No Data Available [facility] No Data Available [facility] No Data Available [facility] No Data Available [facility] No Data Available [facility] RN, CN or CP time with patient by phone; use with 1111F, BP, A1c or other CPTII codes [facility], ([place]) 11/20/2023 Encounter for other specifie d aftercare RN, CN or CP time with patient by phone; use with 1111F, BP, A1c or other CPTII codes [facility] [place] 11/20/2023 Vital Signs Date of Collection Vitals 2022-09-10 08:34:21 Height - 165.1 cmWei ght - 94.8 kgBody Mass Index (BMI) - 34.78 kg/m2 2023-01-09 08:57:54 Height - 165.1 cmWei ght - 96.62 kgBody Mass Index (BMI) - 35.45 kg/m2BP Diastolic - 56.0 mm[Hg]BP Systolic - 116.0 mm[Hg] 2023-03-28 14:22:10 Heart Rate - 82.0 /m inO2 % BldC Oximetry - 94.0 % 2023-04-02 12:38:42 Height - 165.1 cmWei ght - 97.52 kgBody Mass Index (BMI) - 35.78 kg/m2Pain Scale - 0.0 {score} 2023-09-08 09:25:29 Height - 165.1 cmWei ght - 87.54 kgBody Mass Index (BMI) - 32.12 kg/m2BP Diastolic - 62.0 mm[Hg]BP Systolic - 110.0 mm[Hg]Pain Scale - 3.0 {score} Social History Social History Social History Observation Description Effec tive Time Current Smoking Status Former smoker 5 Sex Female History of Procedures Procedures Service Procedure code Service date Servicing provider Phone# Pain Assessment - Pain Documented on a Pain Scale (1125F) 1125F 2022-09-10 No Data Available No Data Flavia ilable Medication List Documented (1159F) 1159F 2022-09-10 No Data Available No Data Flavia ilable Medication Review by prescribing provider or pharmacist documented (1160F) 1160F 2022-09-10 No Data Available No Data Flavia ilable Functional Status Assessed (1170F) 1170F 2022-09-10 No Data Available No Data Avail able Advance Care Directive Advance care planning discussion documented in the medical record (1158F) 1158F 2022-09-10 No Data Available No Data Availa ble BMI obtained (3008F) 3008F 2022-09-10 No Data Availab le No Data Available Most recent A1c (HbA1c) or GMI level 7-7.9% (3051F) 3051F 2022-09-10 No Data Available No Data Availa ble New patient,40-59min; chronic exacerbation, 2 stable chronic or 1 acute illness add add modifier 95 for video (do not use for phone, instead use [id number]) 58445 2022-09-10 No Data Available No Data Availa ble Estab. patient 20-29min; 1 stable chronic or 2 minor; add add modifier 95 for video, modifier 93 for phone 22277 2022-10-03 No Data Available No Data Availa ble RN, CN or CP time with patient by phone; use with 1111F, BP, A1c or other CPTII codes 03197 2022-11-28 No Data Available No Data Avai lable Medications prescribed in hospital were reviewed and reconciled against what they were taking prior to admission during today's visit. (1111F) 1111F 2022-11-28 No Data Available No Data Availa ble No Data Available [id number] 2022-12-03 No Data Available No Data Available Medications prescribed in hospital were reviewed and reconciled against what they were taking prior to admission during today's visit. (1111F) 1111F 2022-12-03 No Data Available No Data Availa ble Estab. patient 30-39min; chronic exacerbation, 2 stable chronic or 1 acute illness add add modifier 95 for video, (do not use for phone, instead use [id number]) 74896 2023-01-09 No Data Available No Data Availa ble Medication List Documented (1159F) 1159F 2023-01-09 No Data Available No Data Flavia ilable Medication Review by prescribing provider or pharmacist documented (1160F) 1160F 2023-01-09 No Data Available No Data Flavia ilable Functional Status Assessed (1170F) 1170F 2023-01-09 No Data Available No Data Avail able Advance Care Directive Advance care planning discussion documented in the medical record (1158F) 1158F 2023-01-09 No Data Available No Data Availa ble BMI obtained (3008F) 3008F 2023-01-09 No Data Availab le No Data Available SBP < 130 (3074F) 3074F 2023-01-09 No Data Available No Data Available DBP <80 (3078F) 3078F 2023-01-09 No Data Available No Data Available Pain Assessment - Pain Documented on a Pain Scale (1125F) 1125F 2023-01-09 No Data Available No Data Flavia ilable RN, CN or CP time with patient by phone; use with 1111F, BP, A1c or other CPTII codes 52683 2023-01-02 No Data Available No Data Avai lable Medications prescribed in hospital were reviewed and reconciled against what they were taking prior to admission during today's visit. (1111F) 1111F 2023-01-02 No Data Available No Data Availa ble No Data Available [id number] 2023-03-28 No Data Available No Data Available No Data Available 2023-04-02 No Data Available No Data Available Medication List Documented (1159F) 1159F 2023-04-02 No Data Available No Data Flavia ilable Pain Assessment - NO pain present (1126F) 1126F 2023-04-02 No Data Available No Data A vailable BMI obtained (3008F) 3008F 2023-04-02 No Data Availab le No Data Available Advance Care Directive Advance care planning discussion documented in the medical record (1158F) 1158F 2023-04-02 No Data Available No Data Availa ble Functional Status Assessed (1170F) 1170F 2023-04-02 No Data Available No Data Avail able No Data Available 2023-09-08 No Data Available No Data Available Pain Assessment - Pain Documented on a Pain Scale (1125F) 1125F 2023-09-08 No Data Available No Data Flavia ilable Medication List Documented (1159F) 1159F 2023-09-08 No Data Available No Data Flavia ilable Functional Status Assessed (1170F) 1170F 2023-09-08 No Data Available No Data Avail able Advance Care Directive Advance care planning discussion documented in the medical record (1158F) 1158F 2023-09-08 No Data Available No Data Availa ble Advance care planning discussed and documented ? advance care plan or surrogate decision-maker was documented in the medical record. (1123F) 1123F 2023-09-08 No Data Available No Data Availa ble No Data Available [id number] 2023-11-24 No Data Available No Data Available Most recent A1c (HbA1c) or GMI level <7% (3044F) 3044F 2023-11-24 No Data Available No Data Availa ble Most recent A1c (HbA1c) or GMI level 7-7.9% (3051F) 3051F 2023-11-24 No Data Available No Data Availa ble Medications prescribed in hospital were reviewed and reconciled against what they were taking prior to admission during today's visit. (1111F) 1111F 2023-11-24 No Data Available No Data Availa ble Functional Status Assessed (1170F) 1170F 2023-11-24 No Data Available No Data Avail able Medication List Documented (1159F) 1159F 2023-11-24 No Data Available No Data Flavia ilable RN, CN or CP time with patient by phone; use with 1111F, BP, A1c or other CPTII codes 40716 2023-11-20 No Data Available No Data Avai lable Medications prescribed in hospital were reviewed and reconciled against what they were taking prior to admission during today's visit. (1111F) 1111F 2023-11-20 No Data Available No Data Availa ble Functional Status Functional Category Effective Dates Cognition Status: Oriented to Person, Pl chao and Time 2022-09-10 ADL Eating: Independent; Amb ulation: Independent- walker, cane; Dressing: Some Help Needed; Bathing: Some Help Needed; Toileting: Independent 2022-09-10 IADL Shopping: total assist; Housekeeping: total assist; Meal Prep: total assist; Medications Management: some assist 2022-09-10 Falls in last 6 Months: No 2022-09-10 SUPERVISOR FITTING only there for 9 hours 2023-11-24 Mental Status Status Date Cognition Status: Mild Cogni tive Impairment,Recall 2/3 unrelated words at 3 minutes 2023-04-02 Assessments Date of Service Assessments 2022-09-10 08:34:21 Type 2 diabetes rita itus with diabetic polyneuropathyHemiplegia and hemiparesis following cerebral infarction affecting left non-dominant sideChronic obstructive pulmonary disease, unspecifiedPulmonary fibrosis, unspecifiedMajor depressive disorder, recurrent, severe with psychotic symptomsInsomniaUnspecified inflammatory spondylopathy, cervical regionVitamin D deficiencyHypertensive heart disease with heart failureSchizophreniaType 2 diabetes mellitus with diabetic cataractGERD (gastroesophageal reflux disease)Bladder incontinence 2022-10-03 11:44:44 Type 2 diabetes rita itus with diabetic polyneuropathyHemiplegia and hemiparesis following cerebral infarction affecting left non-dominant sideChronic obstructive pulmonary disease, unspecifiedPulmonary fibrosis, unspecifiedMajor depressive disorder, recurrent, severe with psychotic symptomsInsomniaUnspecified inflammatory spondylopathy, cervical regionVitamin D deficiencyHypertensive heart disease with heart failure with secondary hyperaldosteronismSchizophreniaType 2 diabetes mellitus with diabetic cataractGERD (gastroesophageal reflux disease)Bladder incontinenceAnxiety 2022-12-03 10:38:24 Assessment:Patient E ducation to avoid future hospitalization: Call [facility] if symptoms of illness develop. COPD exacerbation [J44.1] 2023-01-09 08:57:54 Type 2 diabetes rita itus with diabetic polyneuropathyHemiplegia and hemiparesis following cerebral infarction affecting left non-dominant sideChronic obstructive pulmonary disease, unspecifiedPulmonary fibrosis, unspecifiedMajor depressive disorder, recurrent, severe with psychotic symptomsInsomniaUnspecified inflammatory spondylopathy, cervical regionVitamin D deficiencyHypertensive heart disease with heart failure with secondary hyperaldosteronismSchizophreniaType 2 diabetes mellitus with diabetic cataractGERD (gastroesophageal reflux disease)Bladder incontinenceAnxietyMorbid obesity due to excess caloriesFrequent fallsMigraineAtherosclerosis of aorta 2023-03-28 14:22:10 Follow up plan for a cute symptoms:Burning chest pain 2023-04-02 12:38:42 Chronic obstructive pulmonary disease, unspecifiedSchizophreniaHypertensive heart disease with heart failure with secondary hyperaldosteronismHemiplegia and hemiparesis following cerebral infarction affecting left non-dominant side 2023-09-08 09:25:29 Type 2 diabetes rita itus with diabetic polyneuropathyHemiplegia and hemiparesis following cerebral infarction affecting left non-dominant sideChronic obstructive pulmonary disease, unspecifiedPulmonary fibrosis, unspecifiedMajor depressive disorder, recurrent, severe with psychotic symptomsInsomniaUnspecified inflammatory spondylopathy, cervical regionVitamin D deficiencyHypertensive heart disease with heart failure with secondary hyperaldosteronismSchizophreniaType 2 diabetes mellitus with diabetic cataractGERD (gastroesophageal reflux disease)Bladder incontinenceAnxietyMorbid obesity due to excess caloriesFrequent fallsMigraineAtherosclerosis of aorta 2023-11-24 07:35:59 Type 2 diabetes rita itus with diabetic polyneuropathyHemiplegia and hemiparesis following cerebral infarction affecting left non-dominant sideChronic obstructive pulmonary disease, unspecifiedPulmonary fibrosis, unspecifiedMajor depressive disorder, recurrent, severe with psychotic symptomsInsomniaUnspecified inflammatory spondylopathy, cervical regionVitamin D deficiencyHypertensive heart disease with heart failure with secondary hyperaldosteronismSchizophreniaType 2 diabetes mellitus with diabetic cataractGERD (gastroesophageal reflux disease)Bladder incontinenceAnxietyMorbid obesity due to excess caloriesFrequent fallsMigraineAtherosclerosis of aortaOther problems related to medical facilities and other health care Plan of Care Date of Service Plans 2022-09-10 08:34:21 Medication Review by prescribing provider or pharmacist documented (1160F)Medication List Documented (1159F)Functional Status Assessed (1170F)Advance Care Directive Advance care planning discussion documented in the medical record (1158F)BMI obtained (3008F)Most recent hemoglobin A1c (HbA1c) level 7-7.9% (3051F)Pain Assessment - Pain Documented (1125F)Televideo new patient,40-59min; chronic exacerbation, 2 stable chronic or 1 acute illness add modifier 95Continue to see PCP. Follow-up with [facility] as needed for any acute or disease education needs that may arise.On LaekpxXyyqyvjodeB1e- 7.5Encouraged regular exerciseLimit unhealthy foods and eat healthy mealsAvoid sugar-sweetened beverages. White bread, rice, pasta.Follows EndocrinologistDiscussed recommended a1c level- <7%CVA 2007Has a PCAAmbulates with a cane/walkerOn Anoro ElliptaSpirivaProAiron 3L 02 PRNFollows PulmonologistOn 3l 02Follows PulmonologistOn QuetiapineAripiprazoleDuloxetineFollows PsychiatristOn AmbienUses Ztlido patchOn Vitamin DOn FurosemideMetoprololWill monitor edema and weight, follows cardiologyOn AripiprazoleStableFollows PsychiatrGood Samaritan Medical CenterDlulraLnijzqkljvO8t- 7.1Follows OphthalmologistOn OmeprazoleAvoid spicy, fatty or fried food, caffeine, chocolateAvoid lying down after mealsAvoid eating late at nightWears Pull-ups 2022-10-03 11:44:44 Televideo 20-29min; 1 stable chronic or 2 minor; add modifier 95Continue to see PCP. Follow-up with Kayla as needed for any acute or disease education needs that may arise 05/05.On YpvmmeSlbkojnhocU7i- 7.1Encouraged regular exerciseLimit unhealthy foods and eat healthy mealsAvoid sugar-sweetened beverages. White bread, rice, pasta.Follows EndocrinologistDiscussed recommended a1c level- <7%CVA 2007Ha a PCAAmbulates with a cane/walkerOn Anoro ElliptaSpirivaProAiron 3L 02 PRNFollows PulmonologistOn 3l 02Follows PulmonologistOn QuetiapineAripiprazoleDuloxetineFollows [facility]Mary[facility] AmbienUses Ztlido patchOn Vitamin DOn FurosemideMetoprololWill monitor edema and weight, follows cardiologyOn AripiprazoleStableFollows PsychiatristOn LvnbxlQurpxiobqaZ2t- 7.5Follows OphthalmologistOn OmeprazoleAvoid spicy, fatty or fried food, caffeine, chocolateAvoid lying down after mealsAvoid eating late at nightWears Pull-upsOn ClonazepamStableFollows Psychiatrist 2022-11-28 12:22:24 Follow up with SIDNEY Staley 12/03/22 for CCA 2022-12-03 10:38:24 COPD exacerbation [J 44.1]> Hospitalization 11/25- 11/28/22On Anoro ElliptaSpirivaProAiron 3L 02 PRNFollows PulmonologistCOPD CONTINGENCYIpratropium-Albuterol use for Respiratory flares or Albuterol Sulfate use daily prn both are Nebulizers. Use Ventolin HFA for maintenance Contingency Plan: Make sure you rinse your mouth after using the inhalers to prevent thrush.Call for any worsening SOB to see about adding a nebulizer to your current planIf you have thick sputum call. Plans would be to order Mucinex to thin the secretions.If you use this medication you must drink a full glass of water with this medication to help liquefy the secretions.Avoid things that make your COPD worse i.e. pet dander, dust, fumes etDischarge medications reconciled with current medication listPhone (patient, parent, or guardian); 5-10 minutes of medical discussion (no modifier 95)Medications prescribed in hospital were reviewed and reconciled against what they were taking prior to admission during today's visit. (1111F)PCP visit is planned for: f/u appt. on 12/06/22 2023-01-09 08:57:54 Medication Review by prescribing provider or pharmacist documented (1160F)Medication List Documented (1159F)Functional Status Assessed (1170F)Advance Care Directive Advance care planning discussion documented in the medical record (1158F)BMI obtained (3008F)Pain Assessment - Pain Documented (1125F)SBP < 130 (3074F)Televideo 30-39min; chronic exacerbation, 2 stable chronic or 1 acute illness add modifier 95DBP <80 (3078F)Continue to see PCP. Follow-up with [facility] as needed for any acute or disease education needs that may arise.On TgpgviEoqhkcxpqsG0y- 7.1Encouraged regular exerciseLimit unhealthy foods and eat healthy mealsAvoid sugar-sweetened beverages. White bread, rice, pasta.Follows EndocrinologistDiscussed recommended a1c level- <7%01/09/23: Continue current treatment plan as directed. BG 146 this a.m.12/11/22- GLYCATED HEMOGLOBIN A1C 8.4 (H)GLUCOSE 274CVA 2008Has a PCAAmbulates with a cane/walkerOn Anoro ElliptaSpirivaProAiron 3L 02 PRNFollows PulmonologistCOPD CONTINGENCYIpratropium-Albuterol use for Respiratory flares or Albuterol Sulfate use daily prn both are Nebulizers. Use Ventolin HFA for maintenance Contingency Plan: Make sure you rinse your mouth after using the inhalers to prevent thrush.Call for any worsening SOB to see about adding a nebulizer to your current planIf you have thick sputum call. Plans would be to order Mucinex to thin the secretions.If you use this medication you must drink a full glass of water with this medication to help liquefy the secretions.Avoid things that make your COPD worse i.e. pet dander, dust, fumes etc. 01/09/23: Continue current treatment plan as directed.On 3l 02Follows Pulmonologist01/09/23: Continue current treatment plan as directed.On QuetiapineAripiprazoleDuloxetineFollows PsychiatristOn AmbienEncouraged healthy sleep habits01/09/23: Continue current treatment plan as directed.Uses Ztlido patch01/09/23: Continue current treatment plan as directed.On Vitamin D.Monitored by PCP01/09/23: Continue current treatment plan as directed.On FurosemideMetoprololWill monitor edema and weight, follows cardiologyContingency plan1. encouraged to contact CB for early signs of CHF including dyspnea, fatigue, cough, edema/weight gain. Notify for a gain of more than 2-3lbs in 1 day or more than 5 pounds in 1 week.2. Encourage to limit dietary sodium3. Weigh daily01/09/23: Continue current treatment plan as directed.On AripiprazoleStableFollows Psychiatrist01/09/23: Continue current treatment plan as directed.On SnqmdiFljwfvojmhN0u- 7.5Follows OphthalmologistOn OmeprazoleAvoid spicy, fatty or fried food, caffeine, chocolateAvoid lying down after mealsAvoid eating late at night01/09/23: Continue current treatment plan as directed.Wears Pull-upsOn ClonazepamStableFollows Psychiatrist01/09/23: Continue current treatment plan as directed.BMI- 35.45 with co-morb.Encouraged healthy food choices and exerciseNeed a bedrailWalker- Has difficulty walking long distances without sitting. Unsteady, has had 4-5 falls in the last 6 months.On FioricetFollows PCPAtorvastatinFollows Cardiology & PCP 2023-01-02 09:28:00 Jan 08, 2023, 1:30 P M 2023-03-28 14:22:10 Phone (patient, pare nt, or guardian); 11-20 minutes of medical discussion (no modifier 95)Continue to see PCP. Follow-up with [facility] as needed for any acute or disease education needs that may arise 05/05.03/28/23:- I do not suspect urgent cardiac event given symptoms after discussion with patient. - Sound as if this could be acid reflux symptoms. - Sent in Rx of Mylanta to try and see if that relieves the pain, if this does not help, please call CB back, or if you develop CP, nausea, vomiting, AMS. 2023-04-02 12:38:42 Phone (patient, pare nt, or guardian); 11-20 minutes of medical discussion (no modifier 95)Medication List Documented (1159F)Pain Assessment - NO pain documented (1126F)BMI obtained (3008F)Continue to see PCP. Follow-up with [facility] as needed for any acute or disease education needs that may arise 05/05.On Anoro ElliptaSpirivaProAiron 3L 02 PRNFollows PulmonologistCOPD CONTINGENCYIpratropium-Albuterol use for Respiratory flares or Albuterol Sulfate use daily prn both are Nebulizers. Use Ventolin HFA for maintenance Contingency Plan: Make sure you rinse your mouth after using the inhalers to prevent thrush.Call for any worsening SOB to see about adding a nebulizer to your current planIf you have thick sputum call. Plans would be to order Mucinex to thin the secretions.If you use this medication you must drink a full glass of water with this medication to help liquefy the secretions.Avoid things that make your COPD worse i.e. pet dander, dust, fumes etc. 01/09/23: Continue current treatment plan as directed.04/02/23: Stable. Continue medications as directed. Encouraged diet and weight management. Increase physical activities as tolerated. Maintain safety and fall precautions. Follow up as indicated.On quetiapineStableFollows Psychiatrist01/09/23: Continue current treatment plan as directed.04/02/23: Encouraged to follow up with psychiatrist for medication management and to discuss possibly reducing medications as requested. Verbalized understanding. Continue medications as directed. Encouraged relaxation and reassurance techniques as needed. Increase physical activities as tolerated. Maintain safety and fall precautions. Follow up as indicated.On FurosemideMetoprololWill monitor edema and weight, follows cardiologyContingency plan1. encouraged to contact CB for early signs of CHF including dyspnea, fatigue, cough, edema/weight gain. Notify for a gain of more than 2-3lbs in 1 day or more than 5 pounds in 1 week.2. Encourage to limit dietary sodium3. Weigh daily01/09/23: Continue current treatment plan as directed.04/02/23: Stable. Continue medications as directed. BP monitor ordered. Encouraged diet and weight management. Increase physical activities as tolerated. Maintain safety and fall precautions. Follow up as indicated.CVA 2007Has a PCAAmbulates with a cane/walker04/02/23: Requesting rollator walker to assist with mobility. Task place. Increase physical activities as tolerated. Maintain safety and fall precautions. Follow up with PCP as indicated. 2023-09-08 09:25:29 Phone (patient, pare nt, or guardian); 5-10 minutes of medical discussion (no modifier 95)Continue to see PCP. [facility] or disease education needs that may arise 05/05.On LstfjkJnasujugucM1w- 7.1Encouraged regular exerciseLimit unhealthy foods and eat healthy mealsAvoid sugar-sweetened beverages. White bread, rice, pasta.Follows EndocrinologistDiscussed recommended a1c level- <7%09/08/23: Continue current treatment plan as directed. BG 137 this am 12/11/22- GLYCATED HEMOGLOBIN A1C 8.4 (H)GLUCOSE 274DM foot care: 07/2023Hemoglobin A1c from 05/2023 is uncontrolled at 9.5, previously at 8.4. She reports fasting morning sugars in the 150s. Patient is on metformin 500 mg and Lantus. She denies exercising regularly and denies eating well-balanced meals.GFR 80 3CVA 2007Has a PCAAmbulates with a cane/walker04/02/23: Requesting rollator walker to assist with mobility. Task place. Increase physical activities as tolerated. Maintain safety and fall precautions. Follow up with PCP as indicated.ambulates with walkerOn Anoro ElliptaSpirivaProAiron 3L 02 PRNFollows PulmonologistCOPD CONTINGENCYIpratropium-Albuterol use for Respiratory flares or Albuterol Sulfate use daily prn both are Nebulizers. Use Ventolin HFA for maintenance Contingency Plan: Make sure you rinse your mouth after using the inhalers to prevent thrush.Call for any worsening SOB to see about adding a nebulizer to your current planIf you have thick sputum call. Plans would be to order Mucinex to thin the secretions.If you use this medication you must drink a full glass of water with this medication to help liquefy the secretions.Avoid things that make your COPD worse i.e. pet dander, dust, fumes etc. 01/09/23: Continue current treatment plan as directed.09/08/23: Stable. Continue medications as directed. Encouraged diet and weight management. Increase physical activities as tolerated. Maintain safety and fall precautions. Follow up as indicated.On 3l 02Follows Pulmonologist01/09/23: Continue current treatment plan as directed.On QuetiapineAripiprazoleDuloxetineFollows PsychiatristOn AmbienEncouraged healthy sleep habits01/09/23: Continue current treatment plan as directed.Uses Ztlido patch01/09/23: Continue current treatment plan as directed.On Vitamin D.Monitored by PCP01/09/23: Continue current treatment plan as directed.On FurosemideMetoprololWill monitor edema and weight, follows cardiologyContingency plan1. encouraged to contact CB for early signs of CHF including dyspnea, fatigue, cough, edema/weight gain. Notify for a gain of more than 2-3lbs in 1 day or more than 5 pounds in 1 week.2. Encourage to limit dietary sodium3. Weigh daily01/09/23: Continue current treatment plan as directed.09/08/23: Stable. Continue medications as directed. BP monitor ordered. Encouraged diet and weight management. Increase physical activities as tolerated. Maintain safety and fall precautions. Follow up as indicated.On quetiapineStableFollows Psychiatrist01/09/23: Continue current treatment plan as directed.04/02/23: Encouraged to follow up with psychiatrist for medication management and to discuss possibly reducing medications as requested. Verbalized understanding. Continue medications as directed. Encouraged relaxation and reassurance techniques as needed. Increase physical activities as tolerated. Maintain safety and fall precautions. Follow up as indicated.On KfhehjEetpwcoqzeN1r- 7.5Follows OphthalmologistOn OmeprazoleAvoid spicy, fatty or fried food, caffeine, chocolateAvoid lying down after mealsAvoid eating late at night01/09/23: Continue current treatment plan as directed.has f/u visit 11/03/2023 Office Visit Gastroenterology Alber Benites PA-CWears Pull-ups+burning with voiding x months will f/u with COMPUTER TECHNOLOGY TRAINER 09/16/2023 Office Visit Obstetrics & Gynecology Clare Simon MDOn ClonazepamStableFobalwinder Psychiatrist01/09/23: Continue current treatment plan as directed.BMI- 35.45 with co-morb.Encouraged healthy food choices and exerciseLipid panel from 12/2022 shows LDL at 40. Patient is on atorvastatin 80 mg.Need a bedrailWalker- Has difficulty walking long distances without sitting. Unsteady, has had 4-5 falls in the last 6 months.On FioricetFollows PCPAtorvastatinFollows Cardiology & PCP 2023-11-24 07:35:59 Phone (patient, pare nt, or guardian); 5-10 minutes of medical discussion (no modifier 95)Most recent hemoglobin A1c (HbA1c) level 7-7.9% (3051F)Medications prescribed in hospital were reviewed and reconciled against what they were taking prior to admission during today's visit. (1111F)Continue to see PCP. Follow-up with [facility] as needed for any acute or disease education needs that may arise 05/05.On LantusGabapentinEncouraged regular exerciseLimit unhealthy foods and eat healthy mealsAvoid sugar-sweetened beverages. White bread, rice, pasta.Follows EndocrinologistDiscussed recommended a1c level- <7%09/08/23: Continue current treatment plan as directed. BG 137 this am 12/11/22- GLYCATED HEMOGLOBIN A1C 8.4 (H)GLUCOSE 274DM foot care: 07/2023Hemoglobin A1c: 7.0 2/249.5 05/2023 8.4 2GFR 80 3CVA 2008Does not have SUPERVISOR FITTING 11/24/23Ambulates with a cane/walkerat risk for fallsFall prevention TIPS: Wear sensible shoes. Remove home hazards (Get rid of all rugs/mats in your home). Light up your living space (keep a flash light next to your bed for night time). Use assistive devices.ambulates with walkerOn Anoro ElliptaSpirivaProAiron 3L 02 PRNFollows Desk RepresentativeCONTINGENCY PLANMember to call for the following symptoms: Increased tiredness/ Wheezing/ Increased coughPlanned intervention: Increase use of albuterol inhaler to q2h PRN cough, breathlessness/ change is sputum or Chest congestion: start doxy 100mg BID x 7 daysCAUTION USING PREDNISONE as member is dx with bipolar/psychotic symptoms and this may initiate Manic episode11/24/23: c/o chest congestion, tactile fever, body aches and cough. Per member RN took yesenia this AM told me I did not have a fever PLAN: start doxy 100mg BID x 7 days-call HH RN while in member home 9-10amOn 3l 02Follows Pulmonologist01/09/23: Continue current treatment plan as directed.On QuetiapineAripiprazoleDuloxetineFollows PsychiatristOn AmbienEncouraged healthy sleep habits01/09/23: Continue current treatment plan as directed.Uses Ztlido patch01/09/23: Continue current treatment plan as directed.On Vitamin D.Monitored by PCP01/09/23: Continue current treatment plan as directed.On FurosemideMetoprololWill monitor edema and weight, follows cardiologyContingency plan1. encouraged to contact CB for early signs of CHF including dyspnea, fatigue, cough, edema/weight gain. Notify for a gain of more than 2-3lbs in 1 day or more than 5 pounds in 1 week.2. Encourage to limit dietary sodium3. Weigh daily01/09/23: Continue current treatment plan as directed.09/08/23: Stable. Continue medications as directed. BP monitor ordered. Encouraged diet and weight management. Increase physical activities as tolerated. Maintain safety and fall precautions. Follow up as indicated.CONTINGENCY PLANMember to call for the following symptoms: Not sleeping at night/ Increased agitationPlanned intervention: Contact mental health professional: psychiatry [phone] ([place])On quetiapinewith h/o delusions Follows Psychiatristfollowed by psychiatry [phone] (Neeta) ( member reports she does home visits)HOSPITAL ADMIT: 11/15/23-11/19/23 for mood disorder UTI/anxiety. (PMH-congnitive imprement, delusions) no prior psych history-depression loneliness with anxiety and concern for a man who is after her and chasing her; sister at bed side and agrees that she saw a man chasing her in her building and telling her things she does not want to hear, he watches her from the parking lot. --patient was evacuated from building 11/09/23 for similar concern. no SI------4+bacteroa wotj wb amd NITR---Tx c iv ceftriaxone transitioned to ceftin 250bid x 5 days (urine grew Klebsiella pneumoniae---sensitive to ceftriaxone) all uit symptoms resolved.On LgwkvqWocftzhzwjF1q- 7.0 11/19/23Follows OphthalmologistOn OmeprazoleAvoid spicy, fatty or fried food, caffeine, chocolateAvoid lying down after mealsAvoid eating late at night01/09/23: Continue current treatment plan as directed.has f/u visit 11/03/2023 Office Visit Gastroenterology Alber Benites PA-CWears Pull-ups+burning with voiding x months will f/u with COMPUTER TECHNOLOGY TRAINER 09/16/2023 Office Visit Obstetrics & Gynecology Clare Simon MDOn ClonazepamStableFollows Psychiatrist01/09/23: Continue current treatment plan as directed.TSH: 0.80 (11/19/23)BMI- 35.45 with co-morb.Encouraged healthy food choices and exerciseLipid panel from 12/2022 shows LDL at 40. Patient is on atorvastatin 80 mg.Need a bedrailWalker- Has difficulty walking long distances without sitting. Unsteady, has had 4-5 falls in the last 6 months.On FioricetFollows PCPAtorvastatinFollows Cardiology & PCPWhen member to call: 1. If bp is elevated sbp>150; dbp>90 or symptomatic-h/a, dizziness, cp, sob. 2. if there is a fall 3. if BS >300 or BS<90 or symptomatic; i.e., dizzy, off balance , shaky, general weakness. 4. if UTI symptoms arise-urinary frequency, dysuria, low abd pain. 5. if pain in knees increases/ or joint pain increased Please remember to call CBContinue to see PCP. Follow-up with Kayla as needed for any acute or disease education needs that may arise 05/05.what should be done when the member calls: see each individual diagnosis for contingency plan 2023-11-20 10:00:15 Nov 26, 2023, 10:30 AM Goals Date Goal 2022-09-10 Remember to 2022-09-10 Call me if 2022-09-10 Keep it up 2023-04-02 Remember to follow u p with PCP and specialists as directed.Call if you have any questions, comments, or concerns.Keep taking your medications as prescribed. Health Concerns Date Concern 2023-11-24 Visit completed via audio by telephone. Patient/Guardian agreed to visit via telehealth.Time spent in visit: 2023-11-24 Most recent hospital stay(s) or ER visit(s) and precipitating factors: Hospital name: [facility]? ? Hospital admission date: 11/16/2023? ? Hospital discharge date: 11/19/2023? ? Discharge diagnosis: Anxiety / UTI d/c'd with ceftin 1 tab BID daily for 2 more days---until 11/21/23 (abx course completed at home) ------HOSPITAL ADMIT: 11/15/23-11/19/23 for mood disorder UTI/anxiety. (PMH-cognitive impairment , delusions) no prior psych history-depression loneliness with anxiety and concern for a man who is after her and chasing her; sister at bed side and agrees that she saw a man chasing her in her building and telling her things she does not want to hear, he watches her from the parking lot. --patient was evacuated from building 11/09/23 for similar concern. no SI------4+bacteroa with wbc and NITR---Tx c iv ceftriaxone transitioned to ceftin 250bid x 5 days (urine grew Klebsiella pneumoniae---sensitive to ceftriaxone) all uti symptoms resolved. 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 RN brought medications today. member unable to give me RN name or contact info. 2023-11-24 2 hours per day--no SUPERVISOR FITTING (does not have a SUPERVISOR FITTING) . email sent to [facility] cc re need for SUPERVISOR FITTING 2023-11-24 followed by tracie bonilla [phone] ([place]) ( member reports she does home visits) 2023-11-24 unable to complete medication reconciliation; RN not available and member does not administer medications her self. 2023-11-24 medication list u pdated after review of Hosp records/medication list
--- OUTSIDE RECORDS SUMMARY | 2024-12-15 16:59 | XMS_ITS | Encounter Summary ---
Author Organization [facility] Address [address] [place] [address] Care Team Providers Care Special Duty Nurse Name Role Phone Sujey Browning MD Primary Care Provider Un available Dudley Brown MD Primary Care Provider Unavail able Nancy Vines DO Primary Care Pro vider Unavailable Ashwin Arzola MD Primary Care Provider [phone] Sotero Connell MD Unavailable [phone] [facility] Unavailable [phone] Encounter Details Date Type Department Care Team Description 08/05/2016 Home Health Certification Medical Records [address] [place] [address] Vna Social History Tobacco Use Types Packs/Day Years [...] on filedocumented in this encounter Care Teams Special Duty Nurse Relationship Specialty Start Date End Date Sujey Browning MD PCP - General Internal Medicine 03/27/1608/02 Dudley Brown MD PCP - General Internal Medicine 08/03/19 04/12/20 Nancy Vines DO PCP - General Internal Medicine 04/13/20 07/31/20 Ashwin Arzola MD [address] [place] [address] 51447 PCP - General Internal Medicine 08/01/20 Sotero Connell MD [address] [place] [address] 25321 Specialist Cardiology 07/10/21 Blanco Edwards NP [address] [place] [address] [phone] Specialist Cardiology 08/02/22 documented as of this encounter
--- OUTSIDE RECORDS SUMMARY | 2024-12-15 16:59 | XMS_ITS | Encounter Summary ---
Author Organization [facility] Address [address] [place] [address] Care Team Providers Care Fund Director Name Role Phone Name, Braulio CHIANG Primary Care Provider Unavailabl Dudley Mancuso MD Primary Care Provider Unavail able Ajit Montanez MD Primary Care Provide r Unavailable Sujey Browning MD Primary Care Provider Un available Dudley Brown MD Primary Care Provider Unavail able Nancy Vines DO Primary Care Pro vider Unavailable Ashwin Arzola MD Primary Care Provider [phone] Sujey Browning MD Primary Care Provider Un available Sotero Connell MD Unavailable [phone] Blanco Edwards NP Unavailable [phone] Encounter Details Date Type Department Care Team Description 01/16/2012 Seismic Interpreter Report Medical Records [address] [place] [address] Enrique Borden Social History Tobacco Use Types Packs/Day Years [...] on filedocumented in this encounter Care Teams Fund Director Relationship Specialty Start Date End Date Name, [...] Internal Medicine 04/13/20 07/31/20 Ashwin Arzola MD [address] [place] [address] [id number] PCP - General Internal Medicine 08/01/20 Sujey Browning MD PCP - General 07/03/15 11/12/15 Sotero Connell MD [address] [place] [address] [phone] Specialist Cardiology 07/10/21 Blanco Edwards NP [address] [place] [address] 42964 Specialist Cardiology 08/02/22 documented as of this encounter
--- OUTSIDE RECORDS SUMMARY | 2024-12-15 16:59 | XMS_ITS | Encounter Summary ---
Author Organization [facility] Address [address] [place] [address] Care Team Providers Care Real Estate Management Specialist Name Role Phone Sujey Browning MD Primary Care Provider Un available Dudley Brown MD Primary Care Provider Unavail able Nancy Vines DO Primary Care Pro vider Unavailable Ashwin Arzola MD Primary Care Provider Sotero Connell MD Unavailable [phone] Blanco Edwards NP Unavailable [phone] Reason for Visit * Reason Onset Date Comments Faxed Order 07/25/2016 Encounter Details Date Type Department Care Team Description 07/25/2016 Telephone Adult Medicine [address] [address] Sujey Browning MD Faxed Order Social History Tobacco Use Types Packs/Day Years [...] encounter Miscellaneous Notes * Telephone Encounter - Ghada Abbasi - 07/25/2016 1:35 PM EDT Violeta guthrie is faxing orders to be signed and fax back to [phone]. documented in this encounter Plan of Treatment Not on file documented as of this encounter Visit Diagnoses Not on filedocumented in this encounter Care Teams Real Estate Management Specialist Relationship Specialty Start Date End Date Sujey Browning MD PCP - General Internal Medicine 03/27/1608/02 Dudley Brown MD PCP - General Internal Medicine 08/03/19 04/12/20 Nancy Vines DO PCP - General Internal Medicine 04/13/20 07/31/20 Ashwin Arzola MD [address] [place] [address] [phone] PCP - General Internal Medicine 08/01/20 Sotero Connell MD [address] [place] [address] [phone] Specialist Cardiology 07/10/21 Blanco Edwards NP [address] [place] [address] [phone] Specialist Cardiology 08/02/22 documented as of this encounter
--- OUTSIDE RECORDS SUMMARY | 2024-12-15 16:59 | XMS_ITS | Encounter Summary ---
Author Organization [facility] Address [address] [place] [address] Care Team Providers Care Tax Commissioner Name Role Phone Name, Braulio CHIANG Primary Care Provider Unavailabl Dudley Mancuso MD Primary Care Provider Unavail able Ajit Montanez MD Primary Care Provide r Unavailable Sujey Browning MD Primary Care Provider Un available Dudley Brown MD Primary Care Provider Unavail able Nancy Vines DO Primary Care Pro vider Unavailable Ashwin Arzola MD Primary Care Provider [phone] Sujey Browning MD Primary Care Provider Un available Sotero Connell MD Unavailable [phone] Blanco Edwards NP Unavailable [phone] Encounter Details Date Type Department Care Team Description 03/06/2012 Orders Only Adult Medicine [address] [address] Name, MD Braulio JOSÉ (obstructive sleep apnea) (Primary Dx) Social History Tobacco Use Types [...] Procedure Name Priority Date/Time Associated Diagnosis Comments CPAP/BIPAP ORDER Routine 03/06/2012 12:32 PM EDT JOSÉ (obstructive sleep apnea) documented in this encounter Visit Diagnoses Diagnosis JOSÉ (obstructive sleep apnea)- Primary Obstructive sleep apnea (adult) (pediatric) documented in this encounter Care Teams Tax Commissioner Relationship Specialty Start Date End Date Name, [...] Internal Medicine 04/13/20 07/31/20 Ashwin Arzola MD [address] [place] [address] 28568 PCP - General Internal Medicine 08/01/20 Sujey Browning MD PCP - General 07/03/15 11/12/15 Sotero Connell MD [address] [place] [address] 12015 Specialist Cardiology 07/10/21 Blanco Edwards NP [address] [place] [address] 80665 Specialist Cardiology 08/02/22 documented as of this encounter
--- OUTSIDE RECORDS SUMMARY | 2024-12-15 16:59 | XMS_ITS | Encounter Summary ---
Author Organization [facility] Address [address] [place] [address] Care Team Providers Care Rotary Driller Name Role Phone Name, Braulio CHIANG Primary Care Provider Unavailabl Dudley Mancuso MD Primary Care Provider Unavail able Ajit Montanez MD Primary Care Provide r Unavailable Sujey Browning MD Primary Care Provider Un available Dudley Brown MD Primary Care Provider Unavail able Nancy Vines DO Primary Care Pro vider Unavailable Ashwin Arzola MD Primary Care Provider [phone] Sujey Browning MD Primary Care Provider Un available Sotero Connell MD Unavailable [phone] Blanco Edwards NP Unavailable [phone] Reason for Visit * Reason Onset Date Comments refill request 01/15/2012 Encounter Details Date Type Department Care Team Description 01/15/2012 Refill Adult Medicine [address] [id number] Name, MD Braulio refill request Social History Tobacco Use Types Packs/Day Years [...] encounter Miscellaneous Notes * Telephone Encounter - Ricarda Corral - 01/15/2012 2:43 PM EDT I call pharm, patient did not speak occitan, insulin syringes are 1 ml, 30 G, 1/2 * Telephone Encounter - Tamiko López M.A. - 01/15/2012 2:19 PM EDT I need more information, there is no such thing as lantus syringe There insulin syringe I need size of needle , gauge * Telephone Encounter - Jesenia Artis - 01/15/2012 12:02 PM EDT When was the patients last office visit in Adult Medicine?: 12/20/2011 When was the last time the patient saw their PCP? Same as above Does patient have an upcoming appointment? 02/21/2012 (THE MEDICATION IS NOT ON THE MED LIST AND IS IDENTIFIED BELOW): Med name: Lantus Syringe Dosage: # of tablets: Local pharmacy with request for 30 -day supply Instructions: 4 Times Daily Did you check the pharmacy information above?: YES Indicate how soon the patient needs the script: BY THE END OF THE DAY Patient would like script to be: FAXED TO PHARMACY If the patients Provider is not in tell the patient that the covering provider will get the request. Patients current insurance carrier: Payor: [facility] FFS Plan: FFS HMO $0 SELDEN [id number] Product Type: MEDICAID RISK documented in this encounter Plan of Treatment Not on file documented as of this encounter Visit Diagnoses Not on filedocumented in this encounter Care Teams Rotary Driller Relationship Specialty Start Date End Date Name, [...] Internal Medicine 04/13/20 07/31/20 Ashwin Arzola MD [address] [place] [address] [phone] PCP - General Internal Medicine 08/01/20 Sujey Browning MD PCP - General 07/03/15 11/12/15 Sotero Connell MD [address] [place] [address] Specialist Cardiology 07/10/21 Blanco Edwards NP [address] [place] [address] [phone] Specialist Cardiology 08/02/22 documented as of this encounter
--- OUTSIDE RECORDS SUMMARY | 2024-12-15 16:59 | XMS_ITS | Encounter Summary ---
Author Organization [facility] Address [address] [place] [address] Care Team Providers Care Computational Biologist Name Role Phone Sujey Browning MD Primary Care Provider Un available Dudley Brown MD Primary Care Provider Unavail able Nancy Vines DO Primary Care Pro vider Unavailable Ashwin Arzola MD Primary Care Provider [phone] Sotero Connell MD Unavailable [phone] Blanco Edwards NP Unavailable [phone] Reason for Visit * Reason Onset Date Comments APPOINTMENT 05/18/2018 Encounter Details Date Type Department Care Team Description 05/18/2018 Telephone OBGYN - [place] [address] [place] [address] Clare Simon MD [address] [place] [address] [phone] APPOINTMENT Social History Tobacco Use Types Packs/Day Years Used Date Smoking Tobacco: Former Cigarettes 3 15 Q uit: 10/13/1987 Smokeless Tobacco: Former Alcohol Use Standard Drinks/Week Comments No 0 (1 standard drink = 0.6 oz pur e alcohol) Sex Assigned at Date Recorded Not on file Job Start Date Occupation Industry Not on file Not on file Not on file documented as of this encounter Miscellaneous Notes * Telephone Encounter - Viri Wilson M.A. - 05/19/2018 11:08 AM EDT Left message for patient. [facility] Ultrasound has been ordered and patient can call radiology to schedule. * Telephone Encounter - Viri Wilson M.A. - 05/18/2018 1:00 PM EDT Please order ultrasound so patient can call and schedule it. [facility] * Telephone Encounter - Viri Wilson M.A. - 05/18/2018 11:[address] Felipe, did you want patient to have ultrasound done? [facility] * Telephone Encounter - Olesya Riley - 05/18/2018 11:36 AM EDT Patient was seen today and states she was told she has to have an ultrasound done. I did not see that in her notes or any orders for an ultrasound from todays visit. Please care manager her a call. documented in this encounter Plan of Treatment Not on file documented as of this encounter Results * SONO PELVIS COMPLETE (06/04/2018 10:39 AM EDT) 06/04/2018 1:49 PM EDT Narrative [facility] OTHER EXTERNAL - 06/04/2018 1:50 PM EDT Pelvic ultrasound. History: Pelvic pain.. COMPARISON:Not available. The pelvis was scanned transabdominally for maximum ugjny-xl-vcec, and then transvaginally for optimum delineation of the uterus and ovaries. Uterus is surgically absent. Neither right or left ovary were ??identified. There is no fluid in the cul-de-sac. There is no adnexal masses. CONCLUSIONS: Status post hysterectomy. Nonvisualization of the ovaries. Procedure Note Pearl Arriola MD - 06/04/2018 Pelvic ultrasound. History: Pelvic pain.. COMPARISON:Not available. The pelvis was scanned transabdominally for maximum blehs-iw-xauy, andthen transvaginally for optimum delineation of the uterus and ovaries. Uterus is surgicallyabsent. Neither right or left ovary were identified. There is no fluid in the cul-de-sac. There isno adnexal masses. CONCLUSIONS: Status post hysterectomy. Nonvisualization of the ovaries. Clare Simon MD ULTRASOUND [facility]ACI ADAIR EXTERNAL documented in this encounter Visit Diagnoses Diagnosis Pelvic pain- Primary Pelvic pain documented in this encounter Care Teams Computational Biologist Relationship Specialty Start Date End Date Sujey Browning MD PCP - General Internal Medicine 03/27/1608/02 Dudley Brown MD PCP - General Internal Medicine 08/03/19 04/12/20 Nancy Vines DO PCP - General Internal Medicine 04/13/20 07/31/20 Ashwin Arzola MD [address] [place] [address] PCP - General Internal Medicine 08/01/20 Sotero Connell MD [address] [place] [address] 0[address]73 Specialist Cardiology 07/10/21 Blanco Edwards NP [address] [place] [address] 30457 Specialist Cardiology 08/02/22 documented as of this encounter
--- OUTSIDE RECORDS SUMMARY | 2024-12-15 16:59 | XMS_ITS | Encounter Summary ---
Author Organization [facility] Address [address] [place] [address] Care Team Providers Care Childbirth Educator Name Role Phone Ajit Montanez MD Primary Care Provide r Unavailable Sujey Browning MD Primary Care Provider Un available Dudley Brown MD Primary Care Provider Unavail able Nancy Vines DO Primary Care Pro vider Unavailable Ashwin Arzola MD Primary Care Provider [phone] Sotero Connell MD Unavailable [phone] Blanco Edwards NP Unavailable [phone] Reason for Visit * Reason Comments E-prescribe Rx Request Encounter Details Date Type Department Care Team Description [facility] [address] [phone] Name, MD Braulio E-prescribe Rx Request Social History Tobacco Use [...] encounter Miscellaneous Notes * Telephone Encounter - Enid Avery - 01/12/2016 8:57 AM EDT Patient no longer has PCP at [facility], please close encounter documented in this encounter Plan of Treatment Not on file documented as of this encounter Visit Diagnoses Not on filedocumented in this encounter Care Teams Childbirth Educator Relationship Specialty Start Date End Date Ajit Montanez MD PCP - General Internal Medicine 12/01/15 Sujey Browning MD PCP - General Internal Medicine 03/27/1608/02 Dudley Brown MD PCP - General Internal Medicine 08/03/19 04/12/20 Nancy Vines DO PCP - General Internal Medicine 04/13/20 07/31/20 Ashwin Arzola MD [address] [place] [address] [phone] PCP - General Internal Medicine 08/01/20 Sotero Connell MD [address] [place] [address] [phone] Specialist Cardiology 07/10/21 Blanco Edwards NP [address] [place] [address] [phone] Specialist Cardiology 08/02/22 documented as of this encounter
--- OUTSIDE RECORDS SUMMARY | 2024-12-15 16:59 | XMS_ITS | Encounter Summary ---
Author Organization [facility] Address [address] [place] [address] Care Team Providers Care Spike Machine Feeder Name Role Phone Ashwin Arzola MD Primary Care Provider [phone] Sotero Connell MD Unavailable [phone] Blanco Edwards NP Unavailable [phone] Reason for Visit * Reason Onset Date Comments Faxed Order 07/05/2021 Encounter Details Date Type Department Care Team Description 07/05/2021 Telephone Adult Medicine [facility] [address] [place] [address] Ashwin Arzola MD [address] [place] [address] Faxed Order Social History Tobacco Use Types [...] have Coronavirus / COVID-19? No / Unsure 06/26/2021 8:58 AM EDT documented as of this encounter Miscellaneous Notes * Telephone Encounter - Kristel Abreu - 07/11/2021 11:50 AM EDT Another faxed order from [employer] * Telephone Encounter - Oz Varghese - 07/05/2021 9:50 AM EDT Additional order for plan of care from [employer] * Telephone Encounter - Oz Varghese - 07/05/2021 9:47 AM EDT Faxed order received from [employer] . Order placed in Dr. Ashwin Arzola's bin. Please review, sign, date, and fax back to [phone]. documented in this encounter Plan of Treatment Not on file documented as of this encounter Visit Diagnoses Not on filedocumented in this encounter Care Teams Spike Machine Feeder Relationship Specialty Start Date End Date Ashwin Arzola MD [address] [place] [address] 68004 PCP - General Internal Medicine 08/01/20 Sotero Connell MD [address] [place] [address] Specialist Cardiology 07/10/21 Blanco Edwards NP [address] [place] [address] 90273 Specialist Cardiology 08/02/22 documented as of this encounter
--- OUTSIDE RECORDS SUMMARY | 2024-12-15 16:59 | XMS_ITS | Encounter Summary ---
Author Organization [facility] Address [address] [place] [address] Care Team Providers Care Wellness Spa Manager Name Role Phone Ashwin Arzola MD Primary Care Provider [phone] Sotero Connell MD Unavailable [phone] Blanco Edwards NP Unavailable [phone] Reason for Visit * Reason Onset Date Comments Testing 03/01/2021 MRI OF BRAIN WIT H AND WITHOUT CONTRAST Encounter Details Date Type Department Care Team Description 03/01/2021 Telephone Adult Medicine [facility] [place] [place] [address] [place] [address] [phone] Ashwin Arzola MD [address] [place] [id number] Testing (MRI OF BRAIN WITH AND WITHOUT CONTRAST ) Social History Tobacco Use Types Packs/Day Years [...] have Coronavirus / COVID-19? No / Unsure 02/23/2021 9:00 AM EDT documented as of this encounter Miscellaneous Notes * Telephone Encounter - Allyson Buckner M.A. - 03/01/2021 1:53 PM EDT Letter mailed. * Telephone Encounter - Ashwin Arzola MD - 03/01/2021 12:30 PM EDT Complete * Telephone Encounter - Allyson Buckner M.A. - 03/01/2021 9:04 AM EDT MRI OF BRAIN WITH AND WITHOUT CONTRAST was ordered 12/26/20, do you want to complete or cancel the order? documented in this encounter Plan of Treatment Not on file documented as of this encounter Visit Diagnoses Not on filedocumented in this encounter Care Teams Wellness Spa Manager Relationship Specialty Start Date End Date Ashwin Arzola MD [address] [place] [address] [id number] PCP - General Internal Medicine 08/01/20 Sotero Connell MD [address] [place] [address] [phone] Specialist Cardiology 07/10/21 Blanco Edwards NP [address] [place] [address] [phone] Specialist Cardiology 08/02/22 documented as of this encounter
--- OUTSIDE RECORDS SUMMARY | 2024-12-15 16:59 | XMS_ITS | Encounter Summary ---
Author Organization [facility] Address [address] [place] [address] Care Team Providers Care Jet Aircraft Servicer Name Role Phone Sujey Browning MD Primary Care Provider Un available Dudley Brown MD Primary Care Provider Unavail able Nancy Vines DO Primary Care Pro vider Unavailable Ashwin Arzola MD Primary Care Provider [phone] Sotero Connell MD Unavailable [phone] [facility] Unavailable [phone] Encounter Details Date Type Department Care Team Description 05/07/2016 Hospital Medical Records [address] [place] [address] Adolfo Reyes MD Social History Tobacco Use [...] on filedocumented in this encounter Care Teams Jet Aircraft Servicer Relationship Specialty Start Date End Date Sujey Browning MD PCP - General Internal Medicine 03/27/1608/02 Dudley Brown MD PCP - General Internal Medicine 08/03/19 04/12/20 Nancy Vines DO PCP - General Internal Medicine 04/13/20 07/31/20 Ashwin Arzola MD [address] [place] [address] [phone] PCP - General Internal Medicine 08/01/20 Sotero Connell MD [address] [place] [address] [phone] Specialist Cardiology 07/10/21 Blanco Edwards NP [address] [place] [address] [phone] Specialist Cardiology 08/02/22 documented as of this encounter
--- OUTSIDE RECORDS SUMMARY | 2024-12-15 16:59 | XMS_ITS | Encounter Summary ---
Author Organization [facility] Address [address] [place] [address] Care Team Providers Care Front Desk Specialist Name Role Phone Name, Braulio CHIANG Primary Care Provider Unavailabl Dudley Mancuso MD Primary Care Provider Unavail able Ajit Montanez MD Primary Care Provide r Unavailable Sujey Browning MD Primary Care Provider Un available Dudley Brown MD Primary Care Provider Unavail able Nancy Vines DO Primary Care Pro vider Unavailable Ashwin Arzola MD Primary Care Provider [phone] Sujey Browning MD Primary Care Provider Un available Sotero Connell MD Unavailable [phone] Blanco Edwards NP Unavailable Encounter Details Date Type Department Care Team Description 11/30/2013 Release of Information Medical Records [address] [place] [address] 91133 Abstract, Provider Social History Tobacco Use Types [...] in this encounter Care Teams Front Desk Specialist Relationship Specialty Start Date End Date [...] Internal Medicine 04/13/20 07/31/20 Ashwin Arzola MD [address] [place] [address] [phone] PCP - General Internal Medicine 08/01/20 Sujey Browning MD PCP - General 07/03/15 11/12/15 Sotero Connell MD [address] [place] [address] [phone] Specialist Cardiology 07/10/21 Blanco Edwards NP [address] [place] [address] 80330 Specialist Cardiology 08/02/22 documented as of this encounter
--- OUTSIDE RECORDS SUMMARY | 2024-12-15 16:59 | XMS_ITS | Encounter Summary ---
Author Organization [facility] Address [address] [place] [address] Care Team Providers Care Preparation Department Supervisor Name Role Phone Ashwin Azrola MD Primary Care Provider [phone] Sotero Connell MD Unavailable [phone] Blanco Edwards NP Unavailable [phone] Encounter Details Date Type Department Care Team Description 05/23/2021 Release of Information Medical Records [address] [place] [address] [id number] Abstract, Provider Social History Tobacco Use Types [...] have Coronavirus / COVID-19? No / Unsure 05/25/2021 4:12 PM EDT documented as of this encounter Plan of Treatment Not on file documented as of this encounter Visit Diagnoses Not on filedocumented in this encounter Care Teams Preparation Department Supervisor Relationship Specialty Start Date End Date Ashwin Arzola MD [address] [place] [address] [phone] PCP - General Internal Medicine 08/01/20 Sotero Connell MD [address] [place] [address] [phone] Specialist Cardiology 07/10/21 Blanco Edwards NP [address] [place] [address] [phone] Specialist Cardiology 08/02/22 documented as of this encounter
--- OUTSIDE RECORDS SUMMARY | 2024-12-15 17:00 | XMS_ITS | Encounter Summary ---
Author Organization [facility] Address [address] [place] [address] Care Team Providers Care Analysis Tester Name Role Phone Sujey Browning MD Primary Care Provider Un available Dudley Brown MD Primary Care Provider Unavail able Nancy Vines DO Primary Care Pro vider Unavailable Ashwin Arzola MD Primary Care Provider [phone] Sotero Connell MD Unavailable Blanco Edwards NP Unavailable [phone] Reason for Visit * Reason Onset Date Comments Error 01/19/2018 Encounter Details Date Type Department Care Team Description 01/19/2018 Telephone Adult [address] [address] Sujey Browning MD Error Social History Tobacco Use Types Packs/Day Years [...] on filedocumented in this encounter Care Teams Analysis Tester Relationship Specialty Start Date End Date Sujey Browning MD PCP - General Internal Medicine 03/27/1608/02 Dudley Brown MD PCP - General Internal Medicine 08/03/19 04/12/20 Nancy Vines DO PCP - General Internal Medicine 04/13/20 07/31/20 Ashwin Arzola MD [address] [place] [address] [id number] PCP - General Internal Medicine 08/01/20 Sotero Connell MD [address] [place] [address] Specialist Cardiology 07/10/21 Blanco Edwards NP [address] [place] [address] Specialist Cardiology 08/02/22 documented as of this encounter
--- OUTSIDE RECORDS SUMMARY | 2024-12-15 17:00 | XMS_ITS | Encounter Summary ---
Author Organization [facility] Address [address] [place] [address] Care Team Providers Care Commercial Subcontractor Name Role Phone Nancy Vines DO Primary Care Pro vider Unavailable Ashwin Arzola MD Primary Care Provider [phone] Sotero Connell MD Unavailable [phone] Blanco Edwards NP Unavailable [phone] Encounter Details Date Type Department Care Team Description 07/13/2020 Epic Manager Report Medical Records [address] [place] [address] Maty Espinoza II Social History Tobacco Use Types Packs/Day Years [...] have Coronavirus / COVID-19? No / Unsure 07/13/2020 9:27 AM EDT documented as of this encounter Plan of Treatment Not on file documented as of this encounter Visit Diagnoses Not on filedocumented in this encounter Care Teams Commercial Subcontractor Relationship Specialty Start Date End Date Nancy Vines DO PCP - General Internal Medicine 04/13/20 07/31/20 Ashwin Arzola MD [address] [place] [address] [id number] PCP - General Internal Medicine 08/01/20 Sotero Connell MD [address] [place] [address] [place] [address] Specialist Cardiology 07/10/21 Blanco Edwards NP [address] [place] [address] Specialist Cardiology 08/02/22 documented as of this encounter
--- OUTSIDE RECORDS SUMMARY | 2024-12-15 17:00 | XMS_ITS | Encounter Summary ---
Author Organization [facility] Address [address] [place] [address] Care Team Providers Care Pest Control Operator Name Role Phone Name, Braulio CHIANG Primary Care Provider Unavailabl e Dudley Brown MD Primary Care Provider Unavail able Ajit Montanez MD Primary Care Provide r Unavailable Sujey Browning MD Primary Care Provider Un available Dudley Brown MD Primary Care Provider Unavail able Nancy Vines DO Primary Care Pro vider Unavailable Ashwin Arzola MD Primary Care Provider [phone] Sujey Browning MD Primary Care Provider Un available Sotero Connell MD Unavailable [phone] Blanco Edwards NP Unavailable [phone] Encounter Details Date Type Department Care Team Description 09/20/2014 Peeled Potato Inspector Report Medical Records [address] [place] [address] Erik Langford MD Social History Tobacco Use [...] on filedocumented in this encounter Care Teams Pest Control Operator Relationship Specialty Start Date End Date Name, [...] Medicine 04/13/20 07/31/20 Ashwin Arzola MD [address] [place] [address] PCP - General Internal Medicine 08/01/20 Sujey Browning MD PCP - General 07/03/15 11/12/15 Sotero Connell MD [address] [place] [address] [phone] Specialist Cardiology 07/10/21 Blanco Edwards NP [address] [place] [address] Specialist Cardiology 08/02/22 documented as of this encounter
--- OUTSIDE RECORDS SUMMARY | 2024-12-15 17:00 | XMS_ITS | Encounter Summary ---
Author Organization [facility] Address [address] [place] [address] Care Team Providers Care Music Manager Name Role Phone Ashwin Arzola MD Primary Care Provider Sotero Connell MD Unavailable [phone] Blanco Edwards NP Unavailable [phone] Reason for Visit * Reason Onset Date Comments Faxed Order 07/23/2024 [facility] Ord er # [id number] Encounter Details Date Type Department Care Team Description 07/23/2024 Telephone Adult Medicine [address] [address] Ashwin Arzola MD [address] [place] [address] Faxed Order ([facility] Order # [id number]) Social History Tobacco Use Types Packs/Day Years [...] encounter Miscellaneous Notes * Telephone Encounter - Kavita Ramon - 07/23/2024 11:48 AM EDT Received faxed order from [facility] Order # [id number]. Please sign, date, and fax back to [phone] documented in this encounter Plan of Treatment Not on file documented as of this encounter Visit Diagnoses Not on filedocumented in this encounter Care Teams Music Manager Relationship Specialty Start Date End Date Ashwin Arzola MD [address] [place] [address] PCP - General Internal Medicine 08/01/20 Sotero Connell MD [address] [place] [address] Specialist Cardiology 07/10/21 Blanco Edwards NP [address] [place] [address] Specialist Cardiology 08/02/22 documented as of this encounter
--- OUTSIDE RECORDS SUMMARY | 2024-12-15 17:00 | XMS_ITS | Encounter Summary ---
Author Organization [facility] Address [address] [place] [address] Care Team Providers Care Poultry Inspector Name Role Phone Sujey Browning MD Primary Care Provider Un available Dudley Brown MD Primary Care Provider Unavail able Nancy Vines DO Primary Care Pro vider Unavailable Ashwin Arzola MD Primary Care Provider [phone] Sotero Connell MD Unavailable [phone] Blanco Edwards NP Unavailable [phone] Reason for Visit * Reason Comments E-prescribe Rx Request Encounter Details Date Type Department Care Team Description 02/24/2019 Refill Adult Medicine [address] [phone] Sujey Browning MD E-prescribe Rx Request Social History Tobacco [...] encounter Miscellaneous Notes * Telephone Encounter - Tri Jazmine - 02/24/2019 1:15 PM EDT Patient would like script to be: E-PRESCRIBED/FAXED TO PHARMACY WHEN WAS THE PATIENT'S LAST APPOINTMENT IN ADULT MEDICINE? 02-15-2019 WHEN WAS THE LAST TIME THE PATIENT SAW THEIR PCP? 12-10-2018 Does patient have an upcoming appointment? Yes 06-16-2019 (THE MEDICATION REQUESTED IS ON THE MED LIST ABOVE) All of the medications requested were on the CURRENT MEDS list Did you check the Pharmacy information above?: YES Patient wants: 30 -day supply Is this a mail order prescription request ? NO If the refill is from a FAXED refill request what is the RX # listed on the fax? N/A Patients current insurance carrier is: Payor: [employer] FFS / Plan: [employer] [place] / Product Type: MEDICAID RISK documented in this encounter Plan of Treatment Not on file documented as of this encounter Visit Diagnoses Not on filedocumented in this encounter Care Teams Poultry Inspector Relationship Specialty Start Date End Date Sujey Browning MD PCP - General Internal Medicine 03/27/1608/02 Dudley Brown MD PCP - General Internal Medicine 08/03/19 04/12/20 Nancy Vines DO PCP - General Internal Medicine 04/13/20 07/31/20 Ashwin Arzola MD [address] [place], [place] [phone] PCP - General Internal Medicine 08/01/20 Sotero Connell MD [address] [place] [address] [phone] Specialist Cardiology 07/10/21 Blanco Edwards NP [address] [place], [place] [phone] Specialist Cardiology 08/02/22 documented as of this encounter
--- OUTSIDE RECORDS SUMMARY | 2024-12-15 17:00 | XMS_ITS | Encounter Summary ---
Author Organization [facility] Address [address] [place] [address] Care Team Providers Care Grease And Tallow Pumper Name Role Phone Name, Braulio CHIANG Primary Care Provider Unavailabl Dudley Mancuso MD Primary Care Provider Unavail able Ajit Montanez MD Primary Care Provide r Unavailable Sujey Browning MD Primary Care Provider Un available Dudley Brown MD Primary Care Provider Unavail able Nancy Vines DO Primary Care Pro vider Unavailable Ashwin Arzola MD Primary Care Provider [phone] Sujey Browning MD Primary Care Provider Un available Sotero Connell MD Unavailable [phone] Blanco Edwards NP Unavailable [phone] Reason for Visit * Reason Onset Date Comments Faxed Order 07/15/2013 diabetes center [facility] Encounter Details Date Type Department Care Team Description 07/15/2013 [place] [address] [address] Name, MD Braulio Faxed Order (diabetes center [facility]) Social History Tobacco Use Types Packs/Day Years [...] encounter Miscellaneous Notes * Telephone Encounter - Karishma Castaneda - 07/15/2013 11:45 AM EDT Diabetes center [facility] documented in this encounter Plan of Treatment Not on file documented as of this encounter Visit Diagnoses Not on filedocumented in this encounter Care Teams Grease And Tallow Pumper Relationship Specialty Start Date End Date Name, [...] Internal Medicine 04/13/20 07/31/20 Ashwin Arzola MD [address] [place] [address] PCP - General Internal Medicine 08/01/20 Sujey Browning MD PCP - General 07/03/15 11/12/15 Sotero Connell MD [address] [place] [address] Specialist Cardiology 07/10/21 Blanco Edwards NP [address] [place] [address] Specialist Cardiology 08/02/22 documented as of this encounter
--- OUTSIDE RECORDS SUMMARY | 2024-12-15 17:00 | XMS_ITS | Encounter Summary ---
Author Organization [facility] Address [address] [place] [address] Care Team Providers Care Brass Roller Name Role Phone Sujey Browning MD Primary Care Provider Un available Dudley Brown MD Primary Care Provider Unavail able Nancy Vines DO Primary Care Pro vider Unavailable Ashwin Arzola MD Primary Care Provider [phone] Sotero Connell MD Unavailable [phone] [facility] NP Unavailable [phone] Reason for Referral * EXTERNAL (Routine) - Authorized/Booked Specialty Diagnoses / Procedures Referred By Contac t Referred To Contact Home Health Care / Home care Procedures REFERRAL TO HOME CARE Sujey Browning MD [address] [place] [address] Referral ID Status Reason Start Date Expiration Date V isits Requested Visits Authorized SEE NOTE Authorized/B ooked 12/16/2017 03/19/2018 1 1 Reason for Visit * Reason Onset Date Comments Leg Pain 12/15/2017 Arm Pain 12/15/2017 Encounter Details Date Type Department Care Team Description 12/15/2017 [place] [address] Sujey Browning MD Leg Pain; Arm Pain Social History Tobacco Use Types Packs/Day Years [...] encounter Miscellaneous Notes * Telephone Encounter - Sujey Browning MD - 12/16/2017 12:09 PM EST Referral for home PT placed. Thanks. * Telephone Encounter - Angelika Bonilla R.N. - 12/15/2017 12:06 PM EST Would you consider home PT for this pt, she is falling and [facility] is recommending * Telephone Encounter - Enriqueta Mohan - 12/15/2017 11:15 AM EST Symptoms patient is presenting: patient's ADMINISTRATIVE AIDE is calling stating when [facility] came and did an evaluation they recommend patient get physical therapy for left arm and leg pain and help with her balance. Patient has a lot of pain in her left leg and left arm ever since her stroke. If pain or injury related was it due to an accident at work or from a motor vehicle accident? NO If yes, gather 3rd democrat insurance information Date of accident/Injury: n/a How long has patient had these symptoms?: months PCP: Sujey Browning Payor: [employer] FFS / Plan: [facility] / Product Type: MEDICAID RISK documented in this encounter Plan of Treatment Not on file documented as of this encounter Visit Diagnoses Not on filedocumented in this encounter Care Teams Brass Roller Relationship Specialty Start Date End Date Sujey Browning MD PCP - General Internal Medicine 03/27/1608/02 Dudley Brown MD PCP - General Internal Medicine 08/03/19 04/12/20 Nancy Vines DO PCP - General Internal Medicine 04/13/20 07/31/20 Ashwin Arzola MD [address] [place] [address] PCP - General Internal Medicine 08/01/20 Sotero Connell MD [address] [place], [place] [phone] Specialist Cardiology 07/10/21 Blanco Edwards NP [address] [place] [address] Specialist Cardiology 08/02/22 documented as of this encounter
--- OUTSIDE RECORDS SUMMARY | 2024-12-15 17:00 | XMS_ITS | Encounter Summary ---
Author Organization [facility] Address [address] [place] [address] Care Team Providers Care Patient Office Rep Name Role Phone Ashwin Arzola MD Primary Care Provider Sotero Connell MD Unavailable [phone] Blanco Edwards NP Unavailable [phone] Reason for Referral * EXTERNAL (Routine) - Authorized/Booked Specialty Diagnoses / Procedures Referred By Contac t Referred To Contact Physical Therapy Diagnoses Weakness of both lower extremities Multiple falls Procedures REFERRAL TO PHYSICAL THERAPY Ashwin Arzola MD [address] [place] [address] [facility] Referral ID Status Reason Start Date Expiration Date V isits Requested Visits Authorized [id number] Authorized/B ooked 08/13/2022 11/14/2022 1 1 Reason for Visit * Reason Onset Date Comments Information Broker Feedback 08/13/2022 Physical Therapy Encounter Details Date Type Department Care Team Description 08/13/2022 Telephone Adult Medicine [address] [phone] Ashwin Arzola MD [address] [place] [address] Information Broker Feedback (Physical Therapy) Social History Tobacco Use Types Packs/Day Years [...] suspected to have Coronavirus/COVID-19? No / Unsure 08/15/2022 9:56 AM EDT documented as of this encounter Miscellaneous Notes * Telephone Encounter - Christinabethany Checo - 08/13/2022 8:04 AM EDT Updated order to physical therapy is needed Carlos Please process updated [facility] for [facility] documented in this encounter Plan of Treatment Not on file documented as of this encounter Visit Diagnoses Diagnosis Weakness of both lower extremities- Primary Multiple falls Personal history of fall documented in this encounter Care Teams Patient Office Rep Relationship Specialty Start Date End Date Ashwin Arzola MD [address] [place] [address] PCP - General Internal Medicine 08/01/20 Sotero Connell MD [address] [place] [address] Specialist Cardiology 07/10/21 Blanco Edwards NP [address] [place] [address] [phone] Specialist Cardiology 08/02/22 documented as of this encounter
--- OUTSIDE RECORDS SUMMARY | 2024-12-15 17:00 | XMS_ITS | Encounter Summary ---
Author Organization [facility] Address [address] [place] [address] Care Team Providers Care Art Gallery Director Name Role Phone Ashwin Arzola MD Primary Care Provider [phone] Sotero Connell MD Unavailable [phone] [facility] chandler NP Unavailable [phone] Encounter Details Date Type Department Care Team Description 07/27/2024 Orders Only Medical Records [address] [place] [address] [facility] Social History Tobacco Use Types Packs/Day Years [...] Date/Time Associated Diagnosis Comments OUTSIDE CT Routine 07/26/2024 OUTSIDE PLAIN FILM Routine 07/26/2024 documented in this encounter Results * OUTSIDE PLAIN FILM (07/26/2024) [facility] * OUTSIDE CT (07/26/2024) [facility] documented in this encounter Visit Diagnoses Not on filedocumented in this encounter Care Teams Art Gallery Director Relationship Specialty Start Date End Date Ashwin Arzola MD [address] [place], [place] [phone] PCP - General Internal Medicine 08/01/20 Sotero Connell MD [address] [place] [address] Specialist Cardiology 07/10/21 Blanco Edwards NP [address] [place] [phone] Specialist Cardiology 08/02/22 documented as of this encounter
--- OUTSIDE RECORDS SUMMARY | 2024-12-15 17:00 | XMS_ITS | Encounter Summary ---
Author Organization [facility] Address [address] [place] [address] Care Team Providers Care Road Boss Name Role Phone Name, Braulio CHIANG Primary Care Provider Unavailabl Dudley Mancuso MD Primary Care Provider Unavail able Ajit Montanez MD Primary Care Provide r Unavailable Sujey Browning MD Primary Care Provider Un available Dudley Brown MD Primary Care Provider Unavail able Nancy Vines DO Primary Care Pro vider Unavailable Ashwin Arzola MD Primary Care Provider [phone] Sujey Browning MD Primary Care Provider Un available Sotero Connell MD Unavailable [phone] Blanco Edwards NP Unavailable [phone] Reason for Visit * Reason Onset Date Comments DME Request 07/08/2014 Neighborhood Encounter Details Date Type Department Care Team Description 07/08/2014 Telephone Adult [address] [address] Name, MD Braulio DME Request ([facility]) Social History Tobacco Use Types Packs/Day Years [...] encounter Miscellaneous Notes * Telephone Encounter - Tamiko López M.A. - 07/08/2014 4:06 PM EDT Form On dr names desk * Telephone Encounter - Missy Casillas - 07/08/2014 10:30 AM EDT Name of Product: Diabetic testing supplies Specific information about product see fax # Needed Reason/Diagnosis: When completed: Fax to other office/MD at fax # documented in this encounter Plan of Treatment Not on file documented as of this encounter Visit Diagnoses Not on filedocumented in this encounter Care Teams Road Boss Relationship Specialty Start Date End Date Name, [...] Internal Medicine 04/13/20 07/31/20 Ashwin Arzola MD [address] [place] [address] PCP - General Internal Medicine 08/01/20 Sujey Browning MD PCP - General 07/03/15 11/12/15 Sotero Connell MD [address] [place] [address] Specialist Cardiology 07/10/21 Blanco Edwards NP [address] [place] [address] Specialist Cardiology 08/02/22 documented as of this encounter
--- OUTSIDE RECORDS SUMMARY | 2024-12-15 17:00 | XMS_ITS | Encounter Summary ---
Author Organization [facility] Address [address] [place] [address] Care Team Providers Care Thread Cutter Tender Name Role Phone Sujey Browning MD Primary Care Provider Un available Dudley Brown MD Primary Care Provider Unavail able Nancy Vines DO Primary Care Pro vider Unavailable Ashwin Arzola MD Primary Care Provider [phone] Sotero Connell MD Unavailable [phone] Blanco Edwards NP Unavailable Reason for Visit * Reason Onset Date Comments Toe Pain 12/30/2017 Nail Problem, Toes 12/30/2017 Encounter Details Date Type Department Care Team Description 12/30/2017 Telephone Podiatry - [address] [address] Nicol Alston DPM Toe Pain; Nail Problem, Toes Social History Tobacco Use Types Packs/Day Years [...] encounter Miscellaneous Notes * Telephone Encounter - Nicol Alston DPM - 12/30/2017 11:53 AM EDT Noted. Thank you. * Telephone Encounter - Sophia De Guzman C.M.A. - 12/30/2017 11:33 AM EDT I spoke to [facility] and she said pt does not need an x ray. Because the nail was so long it cracked whenshe hit it and was bleeding, she cut it and it is better now! I told her to keep covered with a band aid and apply antibiotic ointment and we will see her tomorrow. * Telephone Encounter - Nicol Alston DPM - 12/30/2017 11:22 AM EDT Please tell the patient to keep the toe covered with a band-aid and apply antibiotic ointment to the bleeding area. I did order x-rays of the right foot that I would like her to get before her appointment tomorrow. * Telephone Encounter - Sophia De Guzman C.M.A. - 12/30/2017 11:02 AM EDT I spoke to [facility] and told her Dr. Alston has no openings for today. Pt has her scheduled appt for tomorrow at 9:30am. In the mean time pt should keep foot elevated and ice it. Injury to right 4th toe, do you want her to have x rays? Please advise. * Telephone Encounter - Gloria Jane - 12/30/2017 10:09 AM EDT Sidra patient's ASSAYER (verbal release on file) calling stating that the patient's R pinky toe is bleeding because she hit it. She is unable to bear some weight on it and unable to wear shoes. Patient would like to be seen today. Please call. documented in this encounter Plan of Treatment Not on file documented as of this encounter Results * X-RAY EXAM OF FOOT, COMPLETE (3 VIEWS) (02/24/2018 11:30 AM EDT) 02/24/2018 5:06 PM EDT Impressions [facility] OTHER EXTERNAL - 02/24/2018 5:08 PM EDT IMPRESSION: Calcaneal spurs. No acute findings. Narrative [facility] OTHER EXTERNAL - 02/24/2018 5:08 PM EDT RIGHT HAND VIEWS: 3 HISTORY: Right fourth toe injury. Prior: Bilateral feet 06/06/2012. FINDINGS: There is a moderate plantar spur. There is a tiny posterior calcaneal spur. There is no acute fracture, malalignment, joint effusion, soft tissue abnormality, or radiopaque foreign body. Procedure Note Lashaun Sawyer MD - 02/24/2018 RIGHT HAND VIEWS: 3 HISTORY: Right fourth toe injury. Prior: Bilateral feet 06/06/2012. FINDINGS: There is a moderate plantar spur. There is a tiny posterior calcaneal spur. There is no acute fracture, malalignment, joint effusion, soft tissueabnormality, or radiopaque foreign body. IMPRESSION IMPRESSION: Calcaneal spurs. No acute findings. Nicol Alston DPM RADIOLOGY [facility] OTHER EXTERNAL documented in this encounter Visit Diagnoses Not on filedocumented in this encounter Care Teams Thread Cutter Tender Relationship Specialty Start Date End Date Sujey Browning MD PCP - General Internal Medicine 03/27/1608/02 Dudley Brown MD PCP - General Internal Medicine 08/03/19 04/12/20 Nancy Vines DO PCP - General Internal Medicine 04/13/20 07/31/20 Ashwin Arzola MD [address] [place] [address] PCP - General Internal Medicine 08/01/20 Sotero Connell MD [address] [place] [address] Specialist Cardiology 07/10/21 Blanco Edwards NP [address] [place] [address] Specialist Cardiology 08/02/22 documented as of this encounter
--- OUTSIDE RECORDS SUMMARY | 2024-12-15 17:00 | XMS_ITS | Encounter Summary ---
Author Organization [facility] Address [address] [place] [address] Care Team Providers Care Conference Producer Name Role Phone Ashwin Arzola MD Primary Care Provider Sotero Connell MD Unavailable [phone] Blanco Edwards NP Unavailable [phone] Reason for Visit * Reason Onset Date Comments hospital follow up 01/01/2023 Encounter Details Date Type Department Care Team Description 01/01/2023 Telephone Adult Medicine [facility] [address] [place], [place] [id number] Ashwin Arzola MD [address] [place] [phone] hospital follow up Social History Tobacco Use Types Packs/Day Years [...] suspected to have Coronavirus/COVID-19? No / Unsure 12/11/2022 9:31 AM EST documented as of this encounter Miscellaneous Notes * Telephone Encounter - Cynthia Grewal - 01/02/2023 1:02 PM EDT Called and left vm to return my call. * Telephone Encounter - Jossie Lamar - 01/01/2023 2:01 PM EDT Hospital follow up appointment needed Hospital patient was treated at: [facility] Was this only an ER visit or was the patient admitted to the hospital? Admitted to hospital Date of visit if ER visit only: N/A If patient was admitted what was the date of discharge? N/A Reason/diagnosis for visit or stay: Patient was falling When was the patient told to follow up? Milind Was visit or stay related to an injury? YES If yes, what was the date of injury (DOI)? N/A If yes, was the injury due to N/A documented in this encounter Plan of Treatment Not on file documented as of this encounter Visit Diagnoses Not on filedocumented in this encounter Care Teams Conference Producer Relationship Specialty Start Date End Date Ashwin Arzola MD [address] [place] [phone] PCP - General Internal Medicine 08/01/20 Sotero Connell MD [address] [place] [address] [phone] Specialist Cardiology 07/10/21 Blanco Edwards NP [address] [place] [address]29 Specialist Cardiology 08/02/22 documented as of this encounter
--- OUTSIDE RECORDS SUMMARY | 2024-12-15 17:00 | XMS_ITS | Encounter Summary ---
Author Organization [facility] Address [address] [place] [address] Care Team Providers Care Vehicle Safety Inspector Name Role Phone Name, Braulio CHIANG Primary Care Provider Unavailabl e Dudley Brown MD Primary Care Provider Unavail able Ajit Montanez MD Primary Care Provide r Unavailable Sujey Browning MD Primary Care Provider Un available Dudley Brown MD Primary Care Provider Unavail able Nancy Vines DO Primary Care Pro vider Unavailable Ashwin Arzola MD Primary Care Provider [phone] Sujey Browning MD Primary Care Provider Un available Sotero Connell MD Unavailable [phone] Blanco Edwards NP Unavailable [phone] Reason for Visit * Reason Onset Date Comments DME Request 05/28/2013 lesli Encounter Details Date Type Department Care Team Description 05/28/2013 Telephone Adult Medicine [address] [phone] Britt Flores NP DME Request (lesli) Social History Tobacco Use Types Packs/Day Years [...] Telephone Encounter - Tamiko López M.A. - 05/28/2013 4:37 PM EDT FORM ON [employer] DESK * Telephone Encounter - Karishma Castaneda - 05/28/2013 4:25 PM EDT Name of Product: Compression stockings Specific information about product fax to increase compression # Needed see fax Reason/Diagnosis: unknown When completed: fax to Lesli [phone] documented in this encounter Plan of Treatment Not on file documented as of this encounter Visit Diagnoses Not on filedocumented in this encounter Care Teams Vehicle Safety Inspector Relationship Specialty Start Date End Date Name, [...] Medicine 04/13/20 07/31/20 Ashwin Arzola MD [address] [place] [id number] PCP - General Internal Medicine 08/01/20 Sujey Browning MD PCP - General 07/03/15 11/12/15 Sotero Connell MD [address] [place] [address] 70620 Specialist Cardiology 07/10/21 Blanco Edwards NP [address] [place] [phone] Specialist Cardiology 08/02/22 documented as of this encounter
--- OUTSIDE RECORDS SUMMARY | 2024-12-15 17:00 | XMS_ITS | Encounter Summary ---
Author Organization [facility] Address [address] [place] [address] Care Team Providers Care Learning Coach Name Role Phone Ashwin Arzola MD Primary Care Provider [phone] Sotero Connell MD Unavailable [phone] Blanco Edwards NP Unavailable [phone] Reason for Visit * Reason Onset Date Comments Prior Authorization 10/29/2020 Encounter Details Date Type Department Care Team Description 10/29/2020 Telephone Adult Medicine [facility] [address] [place] [address] [phone] Ashwin Arzola MD [address] [place] [address] Prior Authorization Social History Tobacco Use Types [...] have Coronavirus / COVID-19? No / Unsure 10/16/2020 1:59 PM EST documented as of this encounter Miscellaneous Notes * Telephone Encounter - Lynda Muniz M.A. - 11/13/2020 9:18 AM EST Medication changed. * Telephone Encounter - Ashwin Arzola MD - 11/08/2020 11:13 AM EST rx has been sent * Telephone Encounter - Lynda Muniz M.A. - 11/02/2020 1:05 PM EST Please do rx for the lantus. Thank you Please reply back to [id number] Prior Auth Pool [facility] Prior Authorization Ext [id number] * Telephone Encounter - Ashwin Arzola MD - 10/30/2020 4:50 PM EST I seen no issue with lantus But I have never met this patient still there is not issue with switching basalgar to lantus givingpatient has a f/u appointment so we can assess he sugars when she is on the lantus * Telephone Encounter - Lynda Muniz M.A. - 10/30/2020 3:22 PM EST The preferred alternative is lantus. Can pt take the lantus? Thank you Please reply back to [id number] Prior [facility] Prior Authorization Ext [id number] * Telephone Encounter - Ghada Abbasi - 10/29/2020 2:47 PM EST Prior Authorization for Medication-do not complete and send this encounter unless you have the fax from the pharmacy. Is this a Cover My Meds request: [place] of Medication Insulin Glargine (BASAGLAR KWIKPEN) Dose of Medication 100 UNIT/ML Solution Pen-injector What is the RX # from the faxed refill? How does patient take this med? Inject 30 Units into the skin daily. What Pharmacy did the fax come from: [facility] Pharmacy fax #: [phone] [employer] Information from fax: What Prescription Plan does the patient have? BIN/PCN if applicable: Patience ID:[id number] Person Code: Relationship Code: Help desk phone: [phone] documented in this encounter Plan of Treatment Not on file documented as of this encounter Visit Diagnoses Not on filedocumented in this encounter Care Teams Learning Coach Relationship Specialty Start Date End Date Ashwin Arzola MD [address] [place] [phone] PCP - General Internal Medicine 08/01/20 Sotero Connell MD [address] [place] [address] 65462 Specialist Cardiology 07/10/21 Blanco Edwards NP [address] [place] [address] 97535 Specialist Cardiology 08/02/22 documented as of this encounter
--- OUTSIDE RECORDS SUMMARY | 2024-12-15 17:00 | XMS_ITS | Encounter Summary ---
Author Organization [facility] Address [address] [place] [address] Care Team Providers Care Acidizer Water Well Name Role Phone Sujey Browning MD Primary Care Provider Un available Dudley Brown MD Primary Care Provider Unavail able Nancy Vines DO Primary Care Pro vider Unavailable Ashwin Arzola MD Primary Care Provider Sotero Connell MD Unavailable [phone] Blanco Edwards NP Unavailable Reason for Visit * Reason Comments E-prescribe Rx Request Encounter Details Date Type Department Care Team Description 08/31/2018 Refill Adult Medicine [facility] [address] [place] [address] [phone] Teofilo Kiran PA-C [address] [place] [address] [phone] E-prescribe Rx Request Social History Tobacco Use [...] encounter Miscellaneous Notes * Telephone Encounter - Shasha Yun - 08/31/2018 11:01 AM EST Patient would like script to be: E-PRESCRIBED/FAXED TO PHARMACY WHEN WAS THE PATIENT'S LAST APPOINTMENT IN ADULT MEDICINE? 05/28/18 WHEN WAS THE LAST TIME THE PATIENT SAW THEIR PCP? Does patient have an upcoming appointment? Yes 09/11/18 (THE MEDICATION REQUESTED IS ON THE MED [...] N/A Patients current insurance carrier is: Payor: [employer] / Plan: [employer] / Product Type: MEDICAID RISK documented in this encounter Plan of Treatment Not on file documented as of this encounter Visit Diagnoses Not on filedocumented in this encounter Care Teams Acidizer Water Well Relationship Specialty Start Date End Date Sujey Browning MD PCP - General Internal Medicine 03/27/1608/02 Dudley Brown MD PCP - General Internal Medicine 08/03/19 04/12/20 Nancy Vines DO PCP - General Internal Medicine 04/13/20 07/31/20 Ashwin Arzola MD [address] [place] [address] [phone] PCP - General Internal Medicine 08/01/20 Sotero Connell MD [address] [place] [phone] Specialist Cardiology 07/10/21 Blanco Edwards NP [address] [place] [address]20 Specialist Cardiology 08/02/22 documented as of this encounter
--- OUTSIDE RECORDS SUMMARY | 2024-12-15 17:00 | XMS_ITS | Clinical Summary ---
Author Organization [facility] [address] [facility] Address [address] [place] [address] Phone Care Team Providers Care Nursing Agency Manager Name Role Phone Ashwin Arzola MD Primary Care Provider [phone] Allergies Active Allergy Reactions Criticality Noted Date Comments Penicillins Swelling 11/21/2011 Medications acetaminophen (TYLENOL 8 HOUR) 650 mg 8 hr tablet Take 1 Tablet by mouth 2 times daily for 10 days 08/06/20 22 Active albuterol 2.5 mg /3 mL (0.083 %) nebulizer solution Take 1 Vial by nebulization every 4 hours as needed for Wheezing for up to 180 days 03/11/20 23 Active amitriptyline (ELAVIL) 150 mg tablet Take 8 tablets (1,200 mg total) by mouth at bedtime. 03/06/20 23 Active ammonium lactate (LAC-HYDRIN) 12 % lotion Apply to thick nails and skin of both feet of feet daily. At night wear socks to bed 08/28/20 22 Active butalbital-chao taminophen-caf feine (FIORICET, ESGIC) 50-325-40 mg per tablet Take 1 tablet by mouth 1 (one) time each day. 01/09/20 23 Active ciclopirox (LOPROX) 0.77 % gel Apply 1 Application topically 1 (one) time each day. 08/05/20 23 Active clonazePAM (KlonoPIN) 1 mg tablet Take 1 tablet (1 mg total) by mouth at bedtime. 11/15/19 22 Active diclofenac (VOLTAREN) 1 % topical gel Apply 4 g topically 4 times daily. 02/04/20 23 Active fluticasone-um eclidinium-idalmis anterol (Trelegy Ellipta) 100-62.5-25 mcg inhaler Inhale 1 puff (100 mcg total) by mouth 1 (one) time each day. 12/16/19 24 Active DULoxetine (CYMBALTA) [address] capsule TAKE 1 CAPSULE BY MOUTH ONCE DAILY WITH 60MG FOR TOTAL DAILY DOSE OF 80MG 11/16/19 22 Active furosemide (LASIX) 40 mg tablet Take 1 tablet (40 mg total) by mouth 2 (two) times a day. 11/19/19 23 Active insulin glargine (Lantus Solostar U-100 Insulin) 100 unit/mL (3 mL) injection pen Inject 30 Units under the skin 1 (one) time each day. 11/07/19 24 Active metoclopramide (REGLAN) 10 mg tablet Take 1 Tablet by mouth 4 times daily. 11/07/19 24 Active miconazole nitrate 2 % aerosol,spray Apply 1 applicator topically. 01/08/20 24 Active naproxen (NAPROSYN) 500 mg tablet Take 1 Tablet by mouth 2 times daily (with meals). 11/07/19 24 Active nystatin (MYCOSTATIN) 100,000 unit/gram powder Apply topically 4 times daily as needed. 11/07/19 24 Active pantoprazole (PROTONIX) 40 mg EC tablet Take 1 tablet (40 mg total) by mouth 1 (one) time each day. 03/09/20 24 Active polyethylene glycol (MIRALAX) 17 gram packet Take 1 Packet by mouth daily 05/08/20 23 Active QUEtiapine (SEROquel) 100 mg tablet Take 1 tablet (100 mg total) by mouth 2 (two) times a day. 01/12/20 22 Active simethicone (Phazyme) 250 mg capsule Take 1 Tablet by mouth 4 times daily as needed for Other. 05/08/20 23 Active topiramate (TOPAMAX) 100 mg tablet Take 2 tablets (200 mg total) by mouth 2 (two) times a day. 11/15/19 22 Active traMADoL (ULTRAM) 50 mg tablet Take 1 tablet (50 mg total) by mouth every 8 (eight) hours if needed. 12/22/19 22 Active zolpidem (AMBIEN) 10 mg tablet Take 1 tablet (10 mg total) by mouth at bedtime. 02/22/20 22 Active lancets lancets USE TO CHECK SUGARS TWICE DAILY 09/25/20 23 Active montelukast (SINGULAIR) 10 mg tablet Take 1 tablet (10 mg total) by mouth at bedtime. 90 tablet 08/24/20 24 Active magnesium oxide (MAG-OX) 400 mg (241.3 elemental magnesium) tablet Take 1 tablet (400 mg total) by mouth 1 (one) time each day. 04/20/20 24 Active glucose blood test strip USE TO CHECK SUGARS TWICE DAILY 11/07/19 24 Active UNABLE TO FIND Insulin Pen Needle (B-D ULTRAFINE III SHORT PEN) 31G X 8 MM Misc, USE DIRECTED THREE TIMES DAILY 11/07/19 24 Active blood-glucose meter kit Test tid 01/22/20 23 Active pen needle, diabetic (BD Ultra-Fine Short Pen Needle) 31 gauge x 5/16 needle Use as directed three times daily 10/27/19 21 Active UNABLE TO FIND CPAP Historical (HISTORICAL CPAP), by Nasal route at bedtime. BHI&R-pressure 6-16 Active gabapentin (NEURONTIN) 100 mg capsule Take 1 capsule (100 mg total) by mouth 3 (three) times a day. 90 each 08/26/20 24 Active DULoxetine (CYMBALTA) [address] capsule Take 1 capsule (60 mg total) by mouth 1 (one) time each day. 30 each 08/26/20 24 Active traZODone (DESYREL) 50 mg tablet Take 1 tablet (50 mg total) by mouth at bedtime as needed for sleep. 30 tablet 08/26/20 24 025 Active famotidine (Pepcid) 20 mg tablet Take 1 tablet (20 mg total) by mouth 1 (one) time each day. 30 each 08/26/20 24 025 Active budesonide-for moteroL (SYMBICORT) 160-4.5 mcg/actuation inhaler Inhale 2 puffs by mouth 2 (two) times a day. Rinse mouth with water after use to reduce aftertaste and incidence of candidiasis. Do not swallow. 1 each 08/26/20 24 Active clonazePAM (KlonoPIN) 0.5 mg tablet Take 1 tablet (0.5 mg total) by mouth at bedtime. Max Daily Amount: 0.5 mg 30 each 5 08/26/20 24 025 Active clonazePAM (KlonoPIN) 0.5 mg tablet Take 0.5 tablets (0.25 mg total) by mouth 1 (one) time each day. Max Daily Amount: 0.25 mg 15 each 08/26/20 24 Active valproic acid (DEPAKENE) 250 mg/5 mL syrup Take 5 mL (250 mg total) by mouth 2 (two) times a day. 300 mL 08/26/20 24 Active Incruse Ellipta 62.5 mcg/actuation inhalation Inhale 1 puff by mouth 1 (one) time each day. 1 each 08/26/20 24 Active hydrocortisone 2.5 % cream Apply topically 2 (two) times a day if needed for irritation or rash. 30 g 2 09/23/20 24 025 Active blood-glucose meter,continuo us (FreeStyle Cade 3 Sugarloaf) miscIndication s:Type 2 diabetes mellitus with other specified complication, with long-term current use of insulin (CMS/HCC) To check sugars 1 each 09/28/20 24 Active blood-glucose sensor (FreeStyle Cade 3 Plus Sensor) deviceIndicati ons:Type 2 diabetes mellitus with other specified complication, with long-term current use of insulin (CMS/HCC) Box = Kit = EA, change sensor every 14 days 6 each 1 09/28/20 24 Active metoprolol succinate (TOPROL-XL) 25 mg 24 hr tablet Take 1 tablet (25 mg total) by mouth 1 (one) time each day. 90 tablet 1 10/25/19 25 Active atorvastatin (LIPITOR) 80 mg tablet Take 1 tablet (80 mg total) by mouth 1 (one) time each day. 90 tablet 1 10/25/19 25 Active metFORMIN XR (GLUCOPHAGE-XR ) 500 mg 24 hr tabletIndicati ons:Type 2 diabetes mellitus with other specified complication, with long-term current use of insulin (CMS/HCC) Take 1 tablet (500 mg total) by mouth 1 (one) time each day. Take 1 Tablet by mouth daily 90 tablet 1 10/27/19 25 Active loratadine (CLARITIN) 10 mg tablet TOME 1 TABLETA POR VIA ORAL TODOS [place] 90 tablet 1 11/17/19 25 Active senna 8.6 mg tablet TAKE 1 TABLET BY MOUTH EVERY DAY 30 tablet 4 11/29/19 25 Active docusate sodium (COLACE) 100 mg capsule TAKE 1 CAPSULE BY MOUTH TWICE DAILY 60 capsule 4 11/29/19 25 Active docusate sodium (COLACE) 100 mg capsule Take 1 capsule (100 mg total) by mouth 2 (two) times a day. 11/03/19 24 025 Discontinued loratadine (CLARITIN) 10 mg tablet Take 1 tablet (10 mg total) by mouth 1 (one) time each day. 04/20/20 24 025 Discontinued senna (SENOKOT) 8.6 mg tablet Take 1 tablet (8.6 mg total) by mouth 1 (one) time each day. 11/03/19 24 025 Discontinued clotrimazole (LOTRIMIN) 1 % cream Apply topically 2 (two) times a day. 30 g 3 10/18/19 25 025 Active Problems Problem Noted Date Diagnosed Date Abnormal CT of the abdomen 08/19/2024 Bipolar disorder 08/19/2024 Overview (08/19/2024): Joan psych COVID-19 08/19/2024 CTS (carpal tunnel syndrome) 08/19/2024 Overview (08/19/2024): s/p bilat surgery Costochondritis 08/06/2022 Restrictive lung disease 08/02/2022 Overview (08/19/2024): Last Assessment & Plan: Likely secondary to body habitus. CT scan from November 2021 shows some groundglass opacities but was in the setting of COVID. No need for repeating another CAT scan at this point. Mild aortic stenosis 04/04/2022 Anemia 06/26/2021 Multiple falls 06/26/2021 Type 2 diabetes mellitus with cataract Obesity (BMI 30.0-34.9) 02/10/2018 Stage 1 mild COPD by GOLD classification 018 Overview (08/19/2024): Last Assessment & Plan: Mild COPD. Continue with Trelegy 1 puff once a day. Migraine 01/16/2017 Palpitations 07/08/2016 CHF (congestive heart failure) 04/22/2016 Asthma 04/05/2016 Overview (08/19/2024): Last Assessment & Plan: Continue with the use of Trelegy. The severity of asthma does not correlate with her symptoms. She is doing excellent with the Trelegy as well we will continue it. Diabetes mellitus with neurological manifestatio n 12/19/2014 Pulmonary nodules/lesions, multiple 10/17/2014 Overview (08/19/2024): Last Assessment & Plan: Patient has history of calcified granulomas which has been stable for many years. Aneurysm of middle cerebral artery 07/07/2014 Overview (08/19/2024): 4mm on the R MCA bifucation. Patient was follow in [place] and no intervention was recommended Urinary incontinence 11/18/2013 Diabetic neuropathy 02/03/2013 Overview (08/19/2024): Noted on NCT Jun 2013 JOSÉ (obstructive sleep apnea) 01/31/2012 Overview (08/19/2024): Patient using CPAP nightly. Last Assessment & Plan: Patient now wants to use CPAP New order for treatment study with titration has been placed. Return to clinic after sleep titration study. DJD (degenerative joint disease), lumbar 012 High cholesterol 12/20/2011 Primary hypertension 12/20/2011 Encounters Date Type Department Care Team Description 11/18/2024 Telephone Adult Medicine [address] [phone] Nika Ballesteros, SAULO 11/17/2024 Telephone Adult Medicine [address] [phone] Ashwin Arzola MD triage (Please triage see message from VNA nurse ) 11/10/2024 Telephone Adult Medicine [address] [phone] Ashwin Arzola MD Fitting for DME; Appointment 11/02/2024 Telephone Adult Medicine [address] [phone] Sandi Gomez RN 10/25/2024 Telephone Adult Medicine [address] [phone] Kari Avery LPN Fitting for DME (Faxed form from [facility] ) 10/21/2024 Billing Patient Not Present Adult [address] [phone] Ashwin Arzola MD Type 2 diabetes mellitus without complication, unspecified whether longterm insulin use (CMS/HCC) (Primary Dx); Gastro-esophageal reflux disease without esophagitis; Convulsions, unspecified convulsion type (CMS/HCC); Obstructive sleep apnea (adult) (pediatric); Anemia, unspecified type; Essential (primary) hypertension; Chronic bronchitis, unspecified chronic bronchitis type (CMS/HCC); Hyperlipidemia, unspecified hyperlipidemia type; Degenerative disease of nervous system, unspecified (CMS/HCC); Repeated falls; longterm (current) use of aspirin; longterm (current) use of oral hypoglycemic drugs; manager intermediate (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; longterm (current) use of insulin (CMS/HCC) 10/20/2024 Telephone Endocrinology [address] [phone] Ema Cornell MD Medication Review 10/18/2024 2:00 PM EST Office Visit Orthopedic Surgery - [address] [phone] Linus Luna DPNaila Primary osteoarthritis of both feet (Primary Dx); Tinea pedis of both feet; Dermatophytosis of nail; Pain in toe of right foot; Pain in toe of left foot; Diabetic mononeuropathy simplex (CMS/HCC); Type II diabetes mellitus with peripheral circulatory disorder (CMS/HCC); Metatarsalgia of both feet [M77.41, M77.42] 10/15/[address] [phone] Ashwin Arzola MD vna call 10/11/[address] [phone] Ashwin Arzola MD VNA Order ([employer]/Order #[id number], [id number]) 10/04/[address] [phone] Ema Cornell MD medications 09/30/[address] [phone] Ema Cornell MD PRIOR AUTHORIZATION (Freestyle cade 3 reader) 09/29/[address] [phone] Ema Cornell MD PRIOR AUTHORIZATION 09/28/2024 2:30 PM EST Office Visit [address] [phone] Ema Cornell MD Type 2 diabetes mellitus with other specified complication, with long-term current use of insulin ([facility]) (Primary Dx) 09/28/[address] [phone] Ashwin Arzola MD VNA Order ([employer]/Orde r #[id number]) 09/23/2024 1:30 PM EST Office Visit Adult [address] [phone] Ashwin Arzola MD Cellulitis of left leg (Primary Dx); Type 2 diabetes mellitus with cataract (CMS/[facility]); Primary hypertension; High cholesterol; Encounter for long-term (current) use of medications; Weakness of both lower extremities; Skin rash 09/23/2024 Telephone Adult Medicine [phone] [place] [phone] Ashwin Arzola MD Fitting for DME 09/23/2024 Telephone Adult Medicine [phone] [place] [phone] Ashwin Arzola MD medication from Last 3 Months Immunizations Name Administration Dates Next Due Influenza Quadravalent, MDCK , 0.5ml, preservative free (Flucelvax) 6mo and older 12/10/2018 Influenza trivalent, 0.5mL ( Fluad) 65yo and older 08/02/2022,11/07/2021,07/13/2020,06/16,07/05/2016,09/01/2015,07/18/2014 ,06/17/2012 Influenza trivalent, with pr eservative (Fluzone; Afluria) 6mo and older 09/05/2024,09/30/2017,08/16/2013,06/13 Influenza, Unspecified 09/26/2021 Pneumococcal conjugate 13 va lent (Prevnar 13, PCV13) 2mo and older 09/30/2013,07/06/2009 Pneumococcal conjugate 20 va lent (Prevnar 20, PCV 20) 2mo and older 08/21/2023 Pneumococcal polysaccharide 23 valent (Pneumovax 23) 2yo and older 03/24/2016,09/30/2013,07/06/2009 Td Tetanus diptheria (Tdvax) 7yo and older 07/13/2020,04/22/2009 Td, Unspecified 07/13/2020,04/22/2009 Zoster recombinant (Shingrix ) 19yo and older 12/10/2021,10/10/2021 Surgical History Surgery Date Site/Laterality Comments CARPAL TUNNEL RELEASE PROCEDURE: RI NEUROPLASTY &/TRANSPOS MEDIAN NRV CARPAL TUNNE HYSTERECTOMY 2004 PROCEDURE: HISTORICAL HYSTERECTOMY; COMMENT: vaginal, ovaries in place CHOLECYSTECTOMY PROCEDURE: HISTORICAL CHOLECYSTECTOMY COLONOSCOPY 05/19/2017 PROCEDURE: HISTORICAL COLONOSCOPY; COMMENT: diverticulosis, int hemorrhoids; repeat in 5 yrs under propofol UPPER GASTROINTESTINAL ENDOSCOPY 10/29/2016 PROCEDURE: RI UPPER GI ENDOSCOPY PERFORMED; COMMENT: gastritis; biopsies not taken COLONOSCOPY 03/31/2012 PROCEDURE: HISTORICAL COLONOSCOPY; COMMENT: [facility]; Four adenomas UPPER GASTROINTESTINAL ENDOSCOPY 09/02/2019 PROCEDURE: UPPER GI ENDOSCOPY/EXAM; COMMENT: gastritis, biopsy pending CATARACT EXTRACTION Right PROCEDURE: HISTORICAL CATARACT REMOVAL Medical History Medical History Date Comments Asthma DX:Asthma Seronegative rheumatoid arth ritis ([facility]) DX:Seronegative rheumatoid a rthritis ([facility]) Lumbar spondylosis DX:Lumbar spo ndylosis; COMMENT: L3-S1 CTS (carpal tunnel syndrome) DX: CTS (carpal tunnel syndrome); COMMENT: s/p bilat surgery Plantar fasciitis DX:Plantar fas ciitis; COMMENT: Left Medial epicondylitis DX:Medial e picondylitis Pulmonary nodules DX:Pulmonary n odules; COMMENT: calcified Diabetes mellitus ([facility]) DX:D iabetes mellitus ([facility]) Bipolar disorder ([facility]) DX:Bi polar disorder ([facility]) HTN (hypertension) DX:HTN (hyper tension) Bronchitis, not specified as acute or chronic DX:Bronchitis, not specified as acute or chronic Diabetes mellitus with neuro logical manifestation ([facility]) 12/19/2014 DX:Diabetes mellitus with neurological manifestation ([facility]) Hemiparesis affecting left s anthony as late effect of stroke ([facility]) 05/15/2016 DX:Hemiparesis affecti ng left side as late effect of stroke ([facility]) Gastritis 11/22/2016 DX:Gastritis Migraine 01/16/2017 DX:Migraine Migraine without status migr ainosus, not intractable 01/16/2017 DX:Migraine without status migrainosus, not intractable 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 ([facility]) 02/20/2017 DX:DM type 2 causing neurolo gical disease ([facility]) Helicobacter pylori infection DX :Helicobacter pylori infection Abnormal CT of the abdomen DX:Ab normal CT of the abdomen Covid-19 DX:COVID-19 Passage of loose stools DX:Passa ge of loose stools Dysphagia DX:Dysphagia Constipation DX:Constipation Gassiness DX:Gassiness Esophageal reflux DX:Esophageal reflux Gastritis DX:Gastritis Weight loss DX:Weight loss Constipation DX:Constipation Family History Medical History Relation Name Comments No Known Problems Aunt No Known Problems Brother No Known Problems Daughter 1 No Known Problems Daughter 2 Heart attack Father No Known Problems Maternal Grandfather No Known Problems Maternal Grandmother Heart attack Mother No Known Problems Other No Known Problems Paternal Grandfather No Known Problems Paternal Grandmother Arthritis Sister 1 60 Breast cancer Sister 1 60 No Known Problems Sister 2 No Known Problems Son No Known Problems Uncle Blindness Neg Hx Cataracts Neg Hx Colon cancer Neg Hx Glaucoma Neg Hx Macular degeneration Neg Hx Ovarian cancer Neg Hx Pancreatic cancer Neg Hx Prostate cancer Neg Hx Strabismus Neg Hx Uterine cancer Neg Hx Relation Name Status Comments Aunt Brother Alive spleen cancer Daughter 1 Alive Daughter 2 Alive Father CAD Maternal Grandfather Maternal Grandmother Mother CAD Other Paternal Grandfather Paternal Grandmother Sister 1 60 Alive Sister 2 Alive breast cancer Son Alive Uncle Social History Tobacco Use Types Packs/Day Years Used Date Smoking Tobacco: Former Cigarettes 3 15 0 10/13/1972 - 10/13/1987 Smokeless Tobacco: Former Tobacco Cessation:Counseling Given: Not Answered Alcohol Use Standard Drinks/Week Comments No 0 (1 standard drink = 0.6 oz pur e alcohol) Comments No Sex and Gender Information Value Date Recorded Sex Assigned at Not on file Legal Sex Female 8:28 AM EST Gender Identity Not on file Sexual Orientation Not on file Obstetrics History Last Filed Vital Signs Vital Sign Reading Time Taken Comments Blood Pressure 134/57 09/28/2024 2:39 PM EST Pulse 96 09/28/2024 2:39 PM EST Temperature 36.5 ??C (97.7 ??F) 09/28/2024 2:39 PM ES T Respiratory Rate 16 09/23/2024 1:25 PM EST Oxygen Saturation 97% 09/28/2024 2:39 PM EST Inhaled Oxygen Concentration - - Weight 84.8 kg (187 lb) 10/18/2024 2:15 PM EST Height 165.1 cm (5' 5 ) 10/18/2024 2:15 PM EST Body Mass Index 31.12 10/18/2024 2:15 PM EST Plan of Treatment Upcoming Encounters Date Type Department Care Team (Late st Contact Info) Description 12/20/2024 10:30 AM EDT Office Visit Adult Medicine [address] [phone] Ashwin Arzola MD [address] [place] [phone] 01/17/2025 2:00 PM EDT Office Visit Orthopedic Surgery - [place] [address] [phone] Linus Luna, DPNaila [address] [phone] 01/27/2025 2:30 PM EDT Office Visit Adult Medicine [address] [phone] Timmy Avina PA [address] [place] [phone] 04/08/2025 9:40 AM EDT Appointment Radiology Department - [address] [phone] Health Maintenance Due Date Last Done Comments Diabetes: Annual Retina Eye Exam 1965 RSV Immunization Patients 60+ Years Old (1 - Risk 60-74 years 1-dose series) 2014 Falls Risk Assessment 09/21/2022 Social Influencers of Health Screening 09/21/2022 Medicare Annual Wellness Visit 06/11/2024 06/11/2023 COVID-19 Vaccine ( season) 2024 11/07/2021, 01/17/2021 Diabetes: Annual Foot Exam 01/07/2025 01/08/2024 Diabetes: Blood Sugar Control Test (HGBA1C) 03/24/2025 09/23/2024, 03/29/2024, 03/29/2024 Depression Screening 08/11/2025 08/11/2024 Diabetes: Annual Urine Albumin-Creatinine Ratio (uACR) 09/23/2025 09/23/2024, 12/13/2022 Diabetes: Annual GFR (Glomerular Filtration Rate) 09/23/2025 09/23/2024, 03/29/2024, 03/29/2024 Hypertension/CHF/CAD Annual BMP Blood Test 09/23/2025 09/23/2024, 03/29/2024, 03/29/2024 Colorectal Cancer Screening: Colonoscopy 12/21/2025 12/21/2020, 05/19/2017 Breast Cancer Screening 03/29/2026 03/29/20, 03/29/2024, 03/12/2023, Additional history exists Cholesterol Screening (Lipid Panel) 09/23/2029 09/23/2024, 11/07/2023 DTaP,Tdap,and Td Vaccines (5 - Td or Tdap) 07/13/2030 07/13/2020, 07/13/2020, 04/22/2009, Additional history exists Osteoporosis Screening (Bone Density Screening) 07/09/2031 07/09/2021 Hepatitis C Screening Completed 05/04/2014 Zoster Vaccines Completed 12/10/2021, 10/10/2021 Pneumococcal Vaccine: 50+ Years Completed 08/21/2023, 03/24/2016, 09/30/2013, Additional history exists Influenza Vaccine Completed 09/05/2024, , 11/07/2021, Additional history exists HIB Vaccines Aged Out No longer eligi ble based on patient's age to complete this topic HPV Vaccines Aged Out No longer eligi ble based on patient's age to complete this topic Hepatitis A Vaccines Aged Out No long er eligible based on patient's age to complete this topic Hepatitis B Vaccines Aged Out No long er eligible based on patient's age to complete this topic IPV Vaccines Aged Out No longer eligi ble based on patient's age to complete this topic MMR Vaccines Aged Out No longer eligi ble based on patient's age to complete this topic Meningococcal ACWY Vaccine Aged Out N o longer eligible based on patient's age to complete this topic Meningococcal B Vacine Aged Out No lo nger eligible based on patient's age to complete this topic RSV Immunization Patients Under 20 months Aged Out No longer eligible based on patient's age to complete this topic Varicella Vaccines Aged Out No longer eligible based on patient's age to complete this topic Procedures Procedure Name Priority Date/Time Associated Diagnosis Comments MICROALBUMIN CREATININE URINE RATIO Routine 09/23/2024 2:36 PM EST Type 2 diabetes mellitus with cataract (CMS/HCC) HEMOGLOBIN A1C Routine 09/23/2024 2:36 PM EST Type 2 diabetes mellitus with cataract (CMS/HCC) LIPID PANEL WITH REFLEX TO DIRECT LDL Routine 09/23/2024 2:36 PM EST High cholesterol COMPREHENSIVE METABOLIC PANEL Routine 09/23/2024 2:36 PM EST Primary hypertension Encounter for long-term (current) use of medications DEPRESSION SCREENING Routine 08/11/2024 SCREENING MAMMOGRAPHY BI 2-VIEW BREAST INC CAD Routine 03/29/2024 9:32 AM EDT Encounter for screening mammogram for malignant neoplasm of breast DIABETES FOOT EXAM Routine 01/08/2024 DXA BONE DENSITY STUDY 1+ SITS AXIAL SKEL Routine 07/09/2021 4:05 PM EDT Asymptomatic menopausal state COLONOSCOPY Routine 05/19/2017 HEPATITIS C SCREENING Routine 05/04/2014 from Last 3 Months or Most Recently Relevant to Health Maintenance Results * (ABNORMAL) Lipid panel with reflex to direct LDL (09/23/2024 2:36 PM EST) Cholesterol 155 0 - 200 mg/dL LAB CHEMISTRY METHOD 09/23/2024 5:[address] [facility] Triglycerides 153(H) 0 - 150 mg/dL LAB CHEMISTRY METHOD 09/23/2024 5:[address] [facility] HDL 72 >=40 mg/dL LAB CHEMISTRY METHOD 09/23/2024 5:[address] [facility] LDL Calculated 52 0 - 100 mg/dL LAB CHEMISTRY METHOD 09/23/2024 5:[address] [facility] VLDL Cholesterol Jacoby 30.6 mg/dL LAB CHEMISTRY METHOD 09/23/2024 5:[address] [facility] Non HDL Chol. (LDL+VLDL) 83 <145 mg/dL LAB CHEMISTRY METHOD 09/23/2024 5:[address] [facility] Chol/HDL Ratio 2.2 0.0 - 4.4 LAB CHEMISTRY METHOD 09/23/2024 5:43 PM EST [facility] Blood Venous blood specimen / Unknown Venipuncture / Unknown 09/23/2024 2:36 PM EST 09/23/2024 2:36 PM EST us Ashwin Arzola MD LAB BLOOD ORDERABLES Final Resu lt [facility] [address] [place] [address], [place] [phone] * (ABNORMAL) Microalbumin creatinine urine ratio (09/23/2024 2:36 PM EST) Creatinine, Urine 327.0 mg/dL LAB CHEMISTRY METHOD 09/23/2024 6:24 PM EST [facility] Microalb, Ur 131.0(H) 0.0 - 29.0 mg/L LAB CHEMISTRY METHOD 09/23/2024 6:24 PM EST [facility] Microalb/Crea t Ratio 40(H) <30 mg/g creat LAB CHEMISTRY METHOD 09/23/2024 6:24 PM EST [facility] Urine Urine specimen obtained by clean catch procedure / Unknown Non-blood Collection / Unknown 09/23/2024 2:36 PM EST 09/23/2024 2:36 PM EST us Ashwin Arzola MD LAB URINE ORDERABLES Final Resu lt Performing Organization Address City/[facility]/ZIP Co de Phone Number [facility] [address] [place] [address], [place] [phone] * (ABNORMAL) Hemoglobin A1c (09/23/2024 2:36 PM EST) Hemoglobin A1C 8.9(H) <6.5 % LAB CHEMISTRY METHOD 09/23/2024 10:33 PM EST [facility] Mean Bld Glu Estim. 209 mg/dL LAB CHEMISTRY METHOD 09/23/2024 10:[address] [facility] Blood Venous blood specimen / Unknown Venipuncture / Unknown 09/23/2024 2:36 PM EST 09/23/2024 2:36 PM EST us Ashwin Arzola MD LAB BLOOD ORDERABLES Final Resu lt [facility] [address] [place] [address], [place] [phone] * (ABNORMAL) Comprehensive metabolic panel (09/23/2024 2:36 PM EST) Sodium 140 133 - 145 mmol/L LAB CHEMISTRY METHOD 09/23/2024 5:[address] [facility] Potassium 3.7 3.5 - 5.5 mmol/L LAB CHEMISTRY METHOD 09/23/2024 5:[address] [facility] Chloride 103 96 - 110 mmol/L LAB CHEMISTRY METHOD 09/23/2024 5:[address] [facility] CO2 28 21 - 32 mmol/L LAB CHEMISTRY METHOD 09/23/2024 5:[address] [facility] Anion Gap 9 3 - 11 LAB CHEMISTRY METHOD 09/23/2024 5:[address] [facility] Glucose 183(H) 70 - 100 mg/dL LAB CHEMISTRY METHOD 09/23/2024 5:[address] [facility] BUN 22 5 - 25 mg/dL LAB CHEMISTRY METHOD 09/23/2024 5:[address] [facility] Creatinine 0.94 0.50 - 1.10 mg/dL LAB CHEMISTRY METHOD 09/23/2024 5:[address] [facility] eGFR 65 >=60 mL/min/1. 73m2 LAB CHEMISTRY METHOD 09/23/2024 5:[address] [facility] Comment:Calculation based on the??Chronic Kidney Disease Epidemiology Collaboration (CKD-EPI) equation refit??without adjustment for race. BUN/Creatinine Ratio 23.4 LAB CHEMISTRY METHOD 09/23/2024 5:[address] [facility] Calcium 9.6 8.5 - 10.5 mg/dL LAB CHEMISTRY METHOD 09/23/2024 5:[address] [facility] AST (SGOT) 20 10 - 42 unit/L LAB CHEMISTRY METHOD 09/23/2024 5:[address] [facility] ALT (SGPT) 20 10 - 60 unit/L LAB CHEMISTRY METHOD 09/23/2024 5:[address] [facility] Alkaline Phosphatase 88 42 - 121 unit/L LAB CHEMISTRY METHOD 09/23/2024 5:[address] [facility] Total Protein 7.8 6.0 - 8.0 g/dL LAB CHEMISTRY METHOD 09/23/2024 5:[address] [facility] Albumin 3.8 3.2 - 5.0 g/dL LAB CHEMISTRY METHOD 09/23/2024 5:[address] [facility] Total Bilirubin 0.3 0.0 - 1.4 mg/dL LAB CHEMISTRY METHOD 09/23/2024 5:[address] [facility] Blood Venous blood specimen / Unknown Venipuncture / Unknown 09/23/2024 2:36 PM EST 09/23/2024 2:36 PM EST Ashwin Arzola MD LAB BLOOD ORDERABLES Final Resu lt [facility] [address] [place] [address], * Depression Screening (08/11/2024) Depression Screening abstracted Historical Provider HEALTH MAINTENANCE Final Result * SCREENING MAMMOGRAPHY BI 2-VIEW BREAST INC CAD (03/29/2024 9:32 AM EDT) Anatomical Region Laterality Modality Radiographic Petra ging 03/12/2023 5:20 PM EDT Narrative 03/29/2024 4:43 PM EDT This is a summary report. The complete report is available in the patient's medical record. If you cannot access the medical record, please contact the sending organization for a detailed fax or copy. Full field digital screening tomosynthesis mammography, reviewed with CAD and compared to previous mammograms dating back to 05/30/2014 with most recent of 03/12/2023. The breasts are composed of fatty and fibroglandular tissue. ??No suspicious mass, architectural distortion or suspicious calcifications are identified. IMPRESSION: : No mammographic evidence of malignancy. BIRADS 1-Negative; N. 5 year breast cancer risk assessment N/A Lifetime breast cancer risk assessment N/A Breast cancer risk category Breast cancer risk not assessed Procedure Note Lashaun Sawyer MD - 07/28/2024 This is a summary report. The complete report is available in thepatient's medical record. If you cannot access the medical record, pleasecontact the sending organization for a detailed fax or copy. Full field digital screening tomosynthesis mammography, reviewed with CADand compared to previous mammograms dating back to 05/30/2014 with mostrecent of 03/12/2023. The breasts are composed of fatty and fibroglandulartissue. No suspicious mass, architectural distortion or suspiciouscalcifications are identified. IMPRESSION: : No mammographic evidence of malignancy. BIRADS 1-Negative; N. 5 year breast cancer risk assessment N/A Lifetime breast cancer risk assessment N/A Breast cancer risk category Breast cancer risk not assessed Ashwin Arzola MD IMG XR PROCEDURES Final Result * Diabetes Foot Exam (01/08/2024) Diabetes: Annual Foot Exam abstracted Historical Provider HEALTH MAINTENANCE Final Result * DXA BONE DENSITY STUDY 1+ SITS AXIAL SKEL (07/09/2021 4:05 PM EDT) Anatomical Region Laterality Modality Bone Densitometr y 07/14/2020 5:00 PM EDT Narrative 07/09/2021 7:43 PM EDT BONE DENSITY SCAN (DEXA) ? FINDINGS: Lumbar Spine T-score is 0.6. ?? (SD relative to 20-29 y/o adult) Z-score is 2.6. ??(SD relative to age matched peers) This is considered normal by WHO criteria. Left Hip T-score is -0.8. Z-score is 0.5. This is considered normal by WHO criteria. Comparison: None. IMPRESSION: IMPRESSION: Normal bone mineral density by WHO criteria. [facility] Department of Internal Medicine recommends using National Osteoporosis Foundation (NOF) guidelines in treatment decisions related to osteoporosis. NOF guidelines suggest considering treatment for postmenopausal women and men aged 50 or older presenting with the following: History of hip or vertebral fracture. T-score = -2.5 (DXA) at the femoral neck, total hip, or spine, after appropriate evaluation to exclude secondary causes. Low bone mass (T-score between -1.0 and -2.5 at the femoral neck or spine) AND a 10-year probability of a hip fracture = 3% OR a 10-year probability of a major osteoporosis-related fracture = 20% based on the [place]-adapted WHO algorithm Please note that all treatment decisions require clinical judgment and consideration of individual patient factors, including patient preferences, co-morbidities, previous drug use, risk factors not captured in the FRAX model (e.g., frailty, falls, vitamin D deficiency, increased bone turnover, interval significant decline in bone density) and possible under- or over-estimation of fracture risk by FRAX. Optional alternative screening schedule based on dia Pompa., [facility] October 31, 2011 for patients with osteopenia (based on hip BMD T-score) is as follows: * ??advanced osteopenia (T scores -2.00 to -2.49), BMD testing every year * ??moderate osteopenia (T scores -1.50 to -1.99), BMD testing every 5 years mild osteopenia or normal BMD (T scores -1.50 and higher), BMD testing every 15 years Procedure Note Valerie Hennessy MD - 10/01/2022 BONE DENSITY SCAN (DEXA) FINDINGS: Lumbar Spine T-score is 0.6. (SD relative to 20-29 y/o adult) Z-score is 2.6. (SD relative to age matched peers) This is considered normal by WHO criteria. Left Hip T-score is -0.8. Z-score is 0.5. This is considered normal by WHO criteria. Comparison: None. IMPRESSION: IMPRESSION: Normal bone mineral density by WHO criteria. [facility] Department of Internal Medicine recommendsusing National Osteoporosis Foundation (NOF) guidelines in treatment decisions related toosteoporosis. NOF guidelines suggest considering treatment for postmenopausal women and menaged 50 or older presenting with the following: History of hip or vertebral fracture. T-score = -2.5 (DXA) at the femoral neck, total hip, or spine, afterappropriate evaluation to exclude secondary causes. Low bone mass (T-score between -1.0 and -2.5 at the femoral neck or spine)AND a 10-year probability of a hip fracture = 3% OR a 10-year probability of a majorosteoporosis-related fracture = 20% based on the [place]-adapted WHO algorithm Please note that all treatment decisions require clinical judgment andconsideration of individual patient factors, including patient preferences, co- morbidities,previous drug use, risk factors not captured in the FRAX model (e.g., frailty, falls, vitaminD deficiency, increased bone turnover, interval significant decline in bone density) andpossible under- or over-estimation of fracture risk by FRAX. Optional alternative screening schedule based on dia Pompa., NEJMJanuary 2011 for patients with osteopenia (based on hip BMD T-score) is as follows: * advanced osteopenia (T scores -2.00 to -2.49), BMD testing every year * moderate osteopenia (T scores -1.50 to -1.99), BMD testing every 5years mild osteopenia or normal BMD (T scores -1.50 and higher), BMD testingevery 15 years [facility] DXA PROCEDURES Final Result * Hm Colonoscopy (05/19/2017) Colonoscopy abstracted, no interpretation Anatomical Region Laterality Modality Other Historical Provider HEALTH MAINTENANCE Final Result * Hepatitis C Screening (05/04/2014) Hepatitis C Screening abstracted us Historical Provider HEALTH MAINTENANCE Final Result from Last 3 Months or Most Recently Relevant to Health Maintenance Insurance [facility] MEDICARE Member Subscriber Plan / Payer (Ef fective 2024-Present) Name:Melyssa Keating Relation to Subscriber:Self Name:Melyssa Keating Payer ID:[id number] Group ID:[id number] Type:Not on file Address: [place] [address] [address] [address] Care Teams Nursing Agency Manager Relationship Specialty Start Date End Date Ashwin Arzola MD [address] [place] [address] PCP - General Internal Medicine 08/01/20
--- OUTSIDE RECORDS SUMMARY | 2024-12-15 17:00 | XMS_ITS | Encounter Summary ---
Author Organization [facility] Address [address] [place] [address] Care Team Providers Care Android Platform Developer Name Role Phone Ashwin Arzola MD Primary Care Provider Sotero Connell MD Unavailable [phone] Blanco Edwards NP Unavailable [phone] Reason for Visit * Reason Comments E-prescribe Rx Request Encounter Details Date Type Department Care Team Description 06/20/2022 Refill Adult Medicine [facility] [address] [place] [address] [phone] Ashwin Arzola MD [address] [place] [address] [phone] E-prescribe Rx Request Social History Tobacco Use [...] suspected to have Coronavirus/COVID-19? No / Unsure 06/07/2022 12:33 PM EDT documented as of this encounter Miscellaneous Notes * Telephone Encounter - Latasha Hartley M.A. - 06/21/2022 1:04 PM EDT Lab Results Component Value Date NA 141 06/07/2022 K 4.9 06/07/2022 CO2 31 06/07/2022 CL 107 06/07/2022 BUN 21 06/07/2022 CREAT 0.65 06/07/2022 GLU 137 06/07/2022 CA 9.2 06/07/2022 GFR > 60 06/07/2022 Last appt with pcp 06/07/22 DX: ASthma, COPD * Telephone Encounter - Dianne Coreas - 06/20/2022 5:29 PM EDT Patient would like script to be: E-PRESCRIBED/FAXED TO PHARMACY WHEN WAS THE PATIENT'S LAST APPOINTMENT IN ADULT MEDICINE? 06/07/23 WHEN WAS THE LAST TIME THE PATIENT SAW THEIR PCP? Does patient have an upcoming appointment? Yes 12/19/22 (THE MEDICATION REQUESTED IS ON THE MED [...] N/A Patients current insurance carrier is: Payor: [facility] / Plan: [place] $0 [facility] [id number] / Product Type: HMO [id number] documented in this encounter Plan of Treatment Not on file documented as of this encounter Visit Diagnoses Not on filedocumented in this encounter Care Teams Android Platform Developer Relationship Specialty Start Date End Date Ashwin Arzola MD [address] [place] [address] PCP - General Internal Medicine 08/01/20 Sotero Connell MD [address] [place] [address] Specialist Cardiology 07/10/21 Blanco Edwards NP [address], [place] [phone] Specialist Cardiology 08/02/22 documented as of this encounter
--- OUTSIDE RECORDS SUMMARY | 2024-12-15 17:00 | XMS_ITS | Encounter Summary ---
Author Organization [facility] Address [address] [place] [address] Care Team Providers Care Servicing Rep Name Role Phone Name, Braulio CHIANG Primary Care Provider Unavailabl Dudley Mancuso MD Primary Care Provider Unavail able Ajit Montanez MD Primary Care Provide r Unavailable Sujey Browning MD Primary Care Provider Un available Dudley Brown MD Primary Care Provider Unavail able Nancy Vines DO Primary Care Pro vider Unavailable Ashwin Arzola MD Primary Care Provider [phone] Sujey Browning MD Primary Care Provider Un available Sotero Connell MD Unavailable [phone] Blanco Edwards NP Unavailable [phone] Encounter Details Date Type Department Care Team Description 06/24/2014 [facility] Medical Records [address] [place] [address] Lou Hernandez, Social History Tobacco Use Types Packs/Day Years [...] on filedocumented in this encounter Care Teams Servicing Rep Relationship Specialty Start Date End Date Name, [...] Internal Medicine 04/13/20 07/31/20 Ashwin Arzola MD [address] [place] [phone] PCP - General Internal Medicine 08/01/20 Sujey Browning MD PCP - General 07/03/15 11/12/15 Sotero Connell MD [address] [place] [address] Specialist Cardiology 07/10/21 Blanco Edwards NP [address] [place] [address] Specialist Cardiology 08/02/22 documented as of this encounter
--- OUTSIDE RECORDS SUMMARY | 2024-12-15 17:00 | XMS_ITS | Encounter Summary ---
Author Organization [facility] Address [address] [place] [address] Care Team Providers Care Icer Air Conditioning Name Role Phone Ashwin Arzola MD Primary Care Provider [phone] Sotero Connell MD Unavailable [phone] Blanco Edwards NP Unavailable [phone] Reason for Visit * Reason Onset Date Comments refill request 10/25/2020 Encounter Details Date Type Department Care Team Description 10/25/2020 Refill Adult Medicine [facility] [address] [place] [address] Ashwin Arzola MD [address] [place] [address] [phone] refill request Social History Tobacco Use Types [...] encounter Miscellaneous Notes * Telephone Encounter - Debbie Rojas - 10/25/2020 10:42 AM EST Franki 10/16/20 Lab Results Component Value Date NA 140 10/16/2020 K 4.4 10/16/2020 CO2 30 10/16/2020 CL 107 10/16/2020 BUN 27 10/16/2020 CREAT 0.69 10/16/2020 GLU 53 10/16/2020 CA 9.7 10/16/2020 GFR > 60 10/16/2020 * Telephone Encounter - Willow Reyes - 10/25/2020 9:25 AM EST Patient would like script to be: E-PRESCRIBED/FAXED TO PHARMACY WHEN WAS THE PATIENT'S LAST APPOINTMENT IN ADULT MEDICINE? 10/16/20 WHEN WAS THE LAST TIME THE PATIENT SAW THEIR PCP? Same as above Does patient have an upcoming appointment? Yes 12/26/20 (THE MEDICATION REQUESTED IS ON THE MED [...] N/A Patients current insurance carrier is: Payor: [facility] / Plan: [employer] $0 [facility] [id number] / Product Type: HMO [id number] documented in this encounter Plan of Treatment Not on file documented as of this encounter Visit Diagnoses Not on filedocumented in this encounter Care Teams Icer Air Conditioning Relationship Specialty Start Date End Date Ashwin Arzola MD [address] [place] [address] PCP - General Internal Medicine 08/01/20 Sotero Connell MD [address] [place] [address] Specialist Cardiology 07/10/21 Blanco Edwards NP [address] [place] [address] Specialist Cardiology 08/02/22 documented as of this encounter
--- OUTSIDE RECORDS SUMMARY | 2024-12-15 17:00 | XMS_ITS | Encounter Summary ---
Author Organization [facility] Address [address] [place] [address] Care Team Providers Care Team Leader Surgery Name Role Phone Sujey Browning MD Primary Care Provider Un available Dudley Brown MD Primary Care Provider Unavail able aNncy Vines DO Primary Care Pro vider Unavailable Ashwin Arzola MD Primary Care Provider [phone] Sotero Connell MD Unavailable [phone] Blanco Edwards NP Unavailable [phone] Reason for Visit * Reason Comments E-prescribe Rx Request Encounter Details Date Type Department Care Team Description 08/18/2018 Refill OBGYN - [place] [address] [place] [address] Clare Simon MD [address] [place] [address] [phone] E-prescribe Rx Request Social History Tobacco Use [...] encounter Miscellaneous Notes * Telephone Encounter - Laurel Waller - 08/18/2018 2:06 PM EST WHEN WAS THE PATIENTS LAST ANNUAL IMAGE SCIENTIST EXAM? 05/2018 Does patient have an upcoming appointment? Yes follow up 08/27/18 (THE MEDICATION REQUESTED IS ON THE MED LIST ABOVE) Did you check the Pharmacy information above?: NO Indicate how soon the patient needs the script: BY THE END OF THE DAY Patient would like script to be: E-PRESCRIBED/FAXED TO PHARMACY Is the doctor here today?: NO Can the message wait until the doctor returns?: NO Has the patient been told that the prescription will not be filled until the end of the day? NO Payor: [employer] / Plan: [facility] [employer] / Product Type: MEDICAID RISK documented in this encounter Plan of Treatment Not on file documented as of this encounter Visit Diagnoses Diagnosis Vulvar atrophy Atrophy of vulva Vaginal atrophy Postmenopausal atrophic vaginitis documented in this encounter Care Teams Team Leader Surgery Relationship Specialty Start Date End Date Sujey Browning MD PCP - General Internal Medicine 03/27/1608/02 Dudley Brown MD PCP - General Internal Medicine 08/03/19 04/12/20 Nancy Vines DO PCP - General Internal Medicine 04/13/20 07/31/20 Ashwin Arzola MD [address] [place] [address] PCP - General Internal Medicine 08/01/20 Sotero Connell MD [address] [place] [address] [phone] Specialist Cardiology 07/10/21 Blanco Edwards NP [address] [place] [address] [phone] Specialist Cardiology 08/02/22 documented as of this encounter
--- OUTSIDE RECORDS SUMMARY | 2024-12-15 17:00 | XMS_ITS | Encounter Summary ---
Author Organization [employer] [facility] Address [address] [place] [address] Care Team Providers Care Social Research Assistant Name Role Phone Ashwin Arzola MD Primary Care Provider [phone] Reason for Visit * Reason Comments HOME HEALTH CERT Encounter Details Date Type Department Care Team (Late st Contact Info) Description 10/21/2024 Billing Patient Not Present Adult Medicine [facility] [address] [place] [phone] Ashwin Arzola MD [address] [place] [address] Type 2 diabetes mellitus without complication, unspecified whether termination clerk insulin use (CMS/HCC) (Primary Dx); Gastro-esophageal reflux disease without esophagitis; Convulsions, unspecified convulsion type (CMS/HCC); Obstructive sleep apnea (adult) (pediatric); Anemia, unspecified type; Essential (primary) hypertension; Chronic bronchitis, unspecified chronic bronchitis type (CMS/HCC); Hyperlipidemia, unspecified hyperlipidemia type; Degenerative disease of nervous system, unspecified (CMS/HCC); Repeated falls; shelter (current) use of aspirin; shelter (current) use of oral hypoglycemic drugs; 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 churn (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; shelter (current) use of insulin (CMS/HCC) Social History Tobacco Use Types Packs/Day Years Used Date Smoking Tobacco: Former Cigarettes 3 15 0 10/13/1972 - 10/13/1987 Smokeless Tobacco: Former Alcohol Use Standard Drinks/Week Comments No 0 (1 standard drink = 0.6 oz pur e alcohol) Comments No Sex and Gender Information Value Date Recorded Sex Assigned at Not on file Legal Sex Female 8:28 AM EST Gender Identity Not on file Sexual Orientation Not on file documented as of this encounter Progress Notes * Edwige Sousa MA - 10/21/2024 2:59 PM EST Start of Care Date: 05/14/2024 Date of certification period: 07/13/2024-09/10/2024 Date of service = signature date 08/24/2024 Hospice patient: NO Home Care Agency: [facility] [address] [facility] [address] PHONE # [phone] FAX # [phone] Recertification Code [id number] Initial Code G0180 documented in this encounter Plan of Treatment Upcoming Encounters Date Type Department Care Team (Late st Contact Info) Description 12/20/2024 10:30 AM EDT Office Visit Adult Medicine [address] [phone] Ashwin Arzola MD [address] [place] [address] 01/17/2025 2:00 PM EDT Office Visit Orthopedic Surgery - [place] [address] [phone] Linus Luna, DPM [address] [address] 01/27/2025 2:30 PM EDT Office Visit Adult Medicine [address] [phone] Timmy Avina PA [address] [place] [address] 04/08/2025 9:40 AM EDT Appointment Radiology Department - [address] [phone] documented as of this encounter Visit Diagnoses Diagnosis Type 2 diabetes mellitus without complication, unspecified whether termination clerk insulin use ([facility])- Primary Gastro-esophageal reflux disease without esophagitis Convulsions, unspecified convulsion type ([facility]) Obstructive sleep apnea (adult) (pediatric) Anemia, unspecified type Essential (primary) hypertension Unspecified essential hypertension Chronic bronchitis, unspecified chronic bronchitis type ([facility]) Hyperlipidemia, unspecified hyperlipidemia type Degenerative disease of nervous system, unspecified ([facility]) Repeated falls shelter (current) use of aspirin shelter (current) use of oral hypoglycemic drugs shelter (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 buttermaker continuous churn (current) use of insulin ([facility]) Encounter for screening mammogram for breast cancer documented in this encounter Care Teams Social Research Assistant Relationship Specialty Start Date End Date Ashwin Arzola MD [address] [place] [address] PCP - General Internal Medicine 08/01/20 documented as of this encounter
--- OUTSIDE RECORDS SUMMARY | 2024-12-15 17:00 | XMS_ITS | Encounter Summary ---
Author Organization [employer] [place] [address] Care Team Providers Care Chairman And Ceo Name Role Phone Ashwin Arzola MD Primary Care Provider [phone] Encounter Details Date Type Department Care Team (Late Contact Info) Description 11/18/2024 Telephone Adult Medicine [address] [phone] Nika Ballesteros RN Social History Tobacco Use Types Packs/Day Years [...] as of this encounter Progress Notes * Nika Ballesteros RN - 11/18/2024 2:53 PM EST Called pt via [facility] and interpretor # [id number]. I left a message for her to call the office at . Called times two and she didn't answer. documented in this encounter Plan of Treatment Upcoming Encounters Date Type Department Care Team (Late Contact Info) Description 12/20/2024 10:30 AM EDT Office Visit Adult Medicine [address] [phone] Ashwin Arzola MD [address] [place] [address] 01/17/2025 2:00 PM EDT Office Visit Orthopedic Surgery - [place] [address] [phone] Linus Luna, DPM [address] [address] 01/27/2025 2:30 PM EDT Office Visit Adult Medicine [address] [phone] Timmy Avina PA [address] [place] [address] 04/08/2025 9:40 AM EDT Appointment Radiology Department - [address] [phone] documented as of this encounter Visit Diagnoses Not on filedocumented in this encounter Care Teams Chairman And Ceo Relationship Specialty Start Date End Date Ashwin Arzola MD [address] [place] [address] PCP - General Internal Medicine 08/01/20 documented as of this encounter
--- OUTSIDE RECORDS SUMMARY | 2024-12-15 17:00 | XMS_ITS | Encounter Summary ---
Author Organization [facility] Address [address] [place] [address] Care Team Providers Care Code Official Name Role Phone Ashwin Arzola MD Primary Care Provider [phone] Reason for Visit * Reason Onset Date Comments Fitting for DME 11/10/2024 Appointment 11/10/2024 Encounter Details Date Type Department Care Team (Late st Contact Info) Description 11/10/2024 Telephone Adult Medicine [address] [phone] Ashwin Arzola MD [address] [place] [phone] Fitting for DME; Appointment Social History Tobacco Use Types Packs/Day Years [...] as of this encounter Progress Notes * Brenda Arechiga LPN - 11/30/2024 7:46 AM EST Rx signed and faxed to [facility] @ [phone] to process for [facility] Also entered into the portal * Brenda Arechiga LPN - 11/25/2024 10:38 AM ESTAddended by: BRENDA ARECHIGA on: 11/25/2024 10:38 AM Modules accepted: Orders * Brenda Arechiga LPN - 11/25/2024 10:27 [address] Rx [address] Arzola to sign Billy Arechiga LPN - 11/23/2024 2:40 PM EST Spoke to Ana Laura and pt is requesting a rx for a cane and bed pads So these items were not ordered previously I will work on this request on 11/25/24 when I am back in the office Billy Arechiga LPN - 11/23/2024 2:17 PM EST Called [facility] again to speak to Ana Laura Left another message on voice mail to call me back * Brenda Arechiga LPN - 11/18/2024 12:35 PM EST I did not send rx for cane or Disposable underpads Called Ana Laura Back to let her know this , Left message on voice mail for call back * Maria Luisa Sullivan - 11/10/2024 1:53 PM EST [facility] CALL Which [facility] office is calling? KAREN Full name of caller: Ana Laura The caller is [facility] Is the caller at the patients home?: no Reason for call: They need clinical notes and her script for her cane disposable bed pads sent to [facility] Does caller need an urgent call back? yes Was CONTACT Telephone # obtained above?: yes Fax #: [phone] [facility] [employer] documented in this encounter Plan of Treatment Upcoming Encounters Date Type Department Care Team ([facility] st Contact Info) Description 12/20/2024 10:30 AM EDT Office Visit [address] [phone] Ashwin Arzola MD [address] [place] [address] 01/17/2025 2:00 PM EDT Office Visit Orthopedic Surgery - [place] [phone] [phone] Linus Luna DPM [address] [address] 01/27/2025 2:30 PM EDT Office Visit [address] [phone] Timmy Avina PA [address] [place] [address] 04/08/2025 9:40 AM EDT Appointment Radiology Department - [address] [phone] documented as of this encounter Visit Diagnoses Diagnosis Urinary incontinence, unspecified type- Primary Weakness of both lower extremities Osteoarthritis of lumbar spine, unspecified spinal osteoarthritis complication status Encounter for screening mammogram for breast cancer documented in this encounter Orders General Supply Count Last Ordered Date First Or dered Date CANE ADJ [place] 1 11/25/2024 DISPOSABLE UNDERPADS (CHUX) 1 11/25/2024 documented in this encounter Care Teams Code Official Relationship Specialty Start Date End Date Ashwin Arzola MD [address] [place] [address] PCP - General Internal Medicine 08/01/20 documented as of this encounter
--- OUTSIDE RECORDS SUMMARY | 2024-12-15 17:00 | XMS_ITS | Encounter Summary ---
Author Organization [facility] Address [address] [place] [address] Care Team Providers Care County Engineer Name Role Phone Nancy Vines DO Primary Care Pro vider Unavailable Ashwin Arzola MD Primary Care Provider [phone] Sotero Connell MD Unavailable [phone] Blanco Edwards NP Unavailable [phone] Encounter Details Date Type Department Care Team Description 07/13/2020 Telephone Gastroenterology - [place] [address] [phone] Alber Benites PA-C [address] [phone] Social History Tobacco Use Types Packs/Day Years [...] on filedocumented in this encounter Care Teams County Engineer Relationship Specialty Start Date End Date Nancy Vines DO PCP - General Internal Medicine 04/13/20 07/31/20 Ashwin Arzola MD [address] [place] [address] PCP - General Internal Medicine 08/01/20 Sotero Connell MD [address] [place] [address] [phone] Specialist Cardiology 07/10/21 Blanco Edwards NP [address] [place] [address] [phone] Specialist Cardiology 08/02/22 documented as of this encounter
--- OUTSIDE RECORDS SUMMARY | 2024-12-15 17:00 | XMS_ITS | Encounter Summary ---
Author Organization [facility] Address [address] [place] [address] Care Team Providers Care Patient Portal Concierge Name Role Phone Ashwin Arzola MD Primary Care Provider [phone] Sotero Connell MD Unavailable [phone] Blanco Edwards NP Unavailable [phone] Encounter Details Date Type Department Care Team Description 12/14/2020 Orders Only Adult Medicine [address] [address] Willow Monique PA-C LLQ pain; BRBPR (bright red blood per rectum) Social History Tobacco Use Types Packs/Day Years [...] have Coronavirus / COVID-19? No / Unsure 12/13/2020 2:56 PM EST documented as of this encounter Plan of Treatment Not on file documented as of this encounter Procedures Procedure Name Priority Date/Time Associated Diagnosis Comments CT ABD & PELVIS W/O CONTRAST STAT 12/13/2020 LLQ pain BRBPR (bright red blood per rectum) documented in this encounter Results * CT ABD & PELVIS W/O CONTRAST (12/13/2020) Willow Monique PA-C CT SCANS Performing Organization Address City/State/[facility] Co de Phone Number [facility] [address] [place] [address] documented in this encounter Visit Diagnoses Diagnosis LLQ pain Abdominal pain, left lower quadrant BRBPR (bright red blood per rectum) Hemorrhage of rectum and anus documented in this encounter Care Teams Patient Portal Concierge Relationship Specialty Start Date End Date Ashwin Arzola MD [address] [place] [address] PCP - General Internal Medicine 08/01/20 Sotero Connell MD [address] [place] [address] Specialist Cardiology 07/10/21 Blanco Edwards NP [address] [place] [address] [phone] Specialist Cardiology 08/02/22 documented as of this encounter
--- OUTSIDE RECORDS SUMMARY | 2024-12-15 17:00 | XMS_ITS | Encounter Summary ---
Author Organization [facility] Address [address] [place] [address] Care Team Providers Care Information Technology Associate Name Role Phone Sujey Browning MD Primary Care Provider Un available Dudley Brown MD Primary Care Provider Unavail able Nancy Vines DO Primary Care Pro vider Unavailable Ashwin Arzola MD Primary Care Provider [phone] Sotero Connell MD Unavailable [phone] [facility] Unavailable [phone] Encounter Details Date Type Department Care Team Description 03/13/2018 Classified Ad Clerk Report Medical Records [address] [place] [address] Abstract, Provider Social History Tobacco Use Types [...] on filedocumented in this encounter Care Teams Information Technology Associate Relationship Specialty Start Date End Date Sujey Browning MD PCP - General Internal Medicine 03/27/1608/02 Dudley Brown MD PCP - General Internal Medicine 08/03/19 04/12/20 Nancy Vines DO PCP - General Internal Medicine 04/13/20 07/31/20 Ashwin Arzola MD [address] [place] [address] [phone] PCP - General Internal Medicine 08/01/20 Sotero Connell MD [address] [place] [address] Specialist Cardiology 07/10/21 Blanco Edwards NP [address] [place] [address] [phone] Specialist Cardiology 08/02/22 documented as of this encounter
--- OUTSIDE RECORDS SUMMARY | 2024-12-15 17:00 | XMS_ITS | Encounter Summary ---
Author Organization [employer] Address [address] [place] [address] Care Team Providers Care Tube Splicer Name Role Phone Ashwin Arzola MD Primary Care Provider Reason for Visit * Reason Onset Date Comments triage 11/17/2024 Please triage se e message from VNA nurse Encounter Details Date Type Department Care Team ([facility] st Contact Info) Description 11/17/2024 Telephone Adult Medicine [address] [phone] Ashwin Arzola MD [address] [place] [phone] triage (Please triage see message from A nurse ) Social History Tobacco Use Types Packs/Day [...] Progress Notes * Nika Ballesteros RN - 11/19/2024 2:49 PM EST Spoke to pt with [facility] interpretor # [id number]. An appointment was made for her to be seen in the office for an ER follow up appointment on 12/20/24at 2:[address] Arzola. She was instructed to call the office with any new or worsening symptoms. * Antonio Elias LPN - 11/18/2024 1:09 PM EST Spoke with [facility] nurse she will send an up dated med list she has called all her other provider now know who is RX which meds She will fax to [phone] * Nika Ballesteros RN - 11/18/2024 10:09 AM EST I left a message for Pearl to call the office at . Pt is in need of an ER f/u appointment. She was at [facility] on 10/27/24 r/t elevated Troponin level. * Nika Ballesteros RN - 11/18/2024 10:01 AM EST Called and spoke to Sugey. She states she saw pt last on Friday11/16/24. She noticed a large bruise to pt's right upper leg. Pt states it was from a fall she had 3 weeks ago. The bruise is not painful and pt is able to bear weight on her right leg and walk without difficulty. She also has a lump to the palm of her left hand measuring approximately 2 cm X 2 cm. There are no s/s of infection noted to the lump and the skin is intact. It is not known how long the lump has been there. * Antonio Elias LPN - 11/17/2024 3:06 PM EST Please triage see message from JENNIFER * Lynda Frias - 11/17/2024 2:30 PM EST [facility] CALL Which [facility] office is calling? [facility] Full name of caller: Sugey The caller is A nurse Is the caller at the patients home?: no Reason for call: Sugey saw this patient for re-cert yesterday and would like to report the following. States patient fell about 3 wks ago and has very bad bruising on her right upper leg. States sheisn't complaining about any pain but the bruising doesn't look good. Would also like to report patient has had an increase in incontinence. States she wears briefs but is urinating through those, would like to see a Urologist. And lastly patient had a mass in the middle of her left hand that is bothersome. Also mentioned she has been working with Antonio to go over patient's medication list stating it is quite extensive with medication prescribed from all different DR 's Does caller need an urgent call back? no Was CONTACT Telephone # obtained above?: yes Fax #: n/a documented in this encounter Plan of Treatment Upcoming Encounters Date Type Department Care Team (Late st Contact Info) Description 12/20/2024 10:30 AM EDT Office Visit Adult Medicine [address] [phone] Ashwin Arzola MD [address] [place] [address] 01/17/2025 2:00 PM EDT Office Visit Orthopedic Surgery - [place] [address] [phone] Linus Luna DPM [address] [address] 01/27/2025 2:30 PM EDT Office Visit Adult Medicine [address] [phone] Timmy Avina PA [address] [place] [address] [phone] 04/08/2025 9:40 AM EDT Appointment Radiology Department - [address] [phone] documented as of this encounter Visit Diagnoses Not on filedocumented in this encounter Care Teams Tube Splicer Relationship Specialty Start Date End Date Ashwin Arzola MD [address] [place] [address] PCP - General Internal Medicine 08/01/20 documented as of this encounter
--- OUTSIDE RECORDS SUMMARY | 2024-12-15 17:00 | XMS_ITS | Encounter Summary ---
Author Organization [facility] Address [address] [place] [address] Care Team Providers Care Director Of Informatics Name Role Phone Ashwin Arzola MD Primary Care Provider [phone] Sotero Connell MD Unavailable [phone] Blanco Edwards NP Unavailable [phone] Encounter Details Date Type Department Care Team Description 08/01/2022 Hospital Medical Records [address] [place] [address] [facility] Social History Tobacco Use Types Packs/Day Years [...] suspected to have Coronavirus/COVID-19? No / Unsure 08/02/2022 10:24 AM EDT documented as of this encounter Plan of Treatment Not on file documented as of this encounter Visit Diagnoses Not on filedocumented in this encounter Care Teams Director Of Informatics Relationship Specialty Start Date End Date Ashwin Arzola MD [address] [place] [address] [phone] PCP - General Internal Medicine 08/01/20 Sotero Connell MD [address] [place] [address] [phone] Specialist Cardiology 07/10/21 Blanco Edwards NP [address] [place] [address] [phone] Specialist Cardiology 08/02/22 documented as of this encounter
--- OUTSIDE RECORDS SUMMARY | 2024-12-15 17:00 | XMS_ITS | Encounter Summary ---
Author Organization [facility] Address [address] [place] [address] Care Team Providers Care Hand Presser Name Role Phone Ashwin Arzola MD Primary Care Provider [phone] Sotero Connell MD Unavailable [phone] Blanco Edwards NP Unavailable [phone] Encounter Details Date Type Department Care Team Description 09/03/2020 Hospital Medical Records [address] [place], [place] [phone] Social History Tobacco Use Types Packs/Day Years [...] or suspected to have Coronavirus / COVID-19? Unable to assess 08/23/2020 9:28 AM EST documented as of this encounter Plan of Treatment Not on file documented as of this encounter Visit Diagnoses Not on filedocumented in this encounter Care Teams Hand Presser Relationship Specialty Start Date End Date Ashwin Arzola MD [address] [place] [address] [phone] PCP - General Internal Medicine 08/01/20 Sotero Connell MD [address] [place] [address] [phone] Specialist Cardiology 07/10/21 Blanco Edwards NP [address] [place] [address] [phone] Specialist Cardiology 08/02/22 documented as of this encounter
--- OUTSIDE RECORDS SUMMARY | 2024-12-15 17:00 | XMS_ITS | Encounter Summary ---
Author Organization [facility] Address [address] [place] [address] Care Team Providers Care Teletype Clerk Name Role Phone Ashwin Arzola MD Primary Care Provider Sotero Connell MD Unavailable [phone] Blanco Edwards NP Unavailable [phone] Reason for Visit * Reason Onset Date Comments Faxed Order 07/23/2024 [facility] Ord er # [id number] Encounter Details Date Type Department Care Team Description 07/23/2024 Telephone Adult Medicine [address] [address] Ashwin Arzola MD [address] [place] [address] Faxed Order ([facility] Order # [id number]) Social History Tobacco Use Types Packs/Day Years [...] Telephone Encounter - Kavita Ramon - 07/23/2024 11:50 AM EDT Received faxed order from [facility] Order # [id number]. Please sign, date, and fax back to [phone] documented in this encounter Plan of Treatment Not on file documented as of this encounter Visit Diagnoses Not on filedocumented in this encounter Care Teams Teletype Clerk Relationship Specialty Start Date End Date Ashwin Arzola MD [address] [place] [address] PCP - General Internal Medicine 08/01/20 Sotero Connell MD [address] [place] [address] Specialist Cardiology 07/10/21 Blanco Edwards NP [address] [place] [address] Specialist Cardiology 08/02/22 documented as of this encounter
--- OUTSIDE RECORDS SUMMARY | 2024-12-15 17:00 | XMS_ITS | Encounter Summary ---
Author Organization [facility] Address [address] [place] [address] Care Team Providers Care Glass Furnace Operator Name Role Phone Ashwin Arzola MD Primary Care Provider [phone] Sotero Connell MD Unavailable [phone] Blanco Edwards NP Unavailable [phone] Encounter Details Date Type Department Care Team Description 06/10/2022 [facility] Medical [facility] [address] [phone] Linus Luna DPM [address] [address] Social History Tobacco Use Types Packs/Day Years [...] on filedocumented in this encounter Care Teams Glass Furnace Operator Relationship Specialty Start Date End Date Ashwin Arzola MD [address] [place] [address] [phone] PCP - General Internal Medicine 08/01/20 Sotero Connell MD [address] [place] [address] Specialist Cardiology 07/10/21 Blanco Edwards NP [address] [place] [address] Specialist Cardiology 08/02/22 documented as of this encounter
--- OUTSIDE RECORDS SUMMARY | 2024-12-15 17:00 | XMS_ITS | Encounter Summary ---
Author Organization [facility] Address [address] [place] [address] Care Team Providers Care Public Speaking Coach Name Role Phone Ashwin Arzola MD Primary Care Provider [phone] Sotero Connell MD Unavailable [phone] Blanco Edwards NP Unavailable [phone] Encounter Details Date Type Department Care Team Description 12/21/2020 Hospital Medical Records [address] [place] [address] Amber Duque MD [address] [place] [address] [phone] Social History Tobacco Use Types Packs/Day Years [...] have Coronavirus / COVID-19? No / Unsure 12/20/2020 9:46 AM EST documented as of this encounter Plan of Treatment Not on file documented as of this encounter Visit Diagnoses Not on filedocumented in this encounter Care Teams Public Speaking Coach Relationship Specialty Start Date End Date Ashwin Arzola MD [address] [place] [address] PCP - General Internal Medicine 08/01/20 Sotero Connell MD [address] [place] [address] Specialist Cardiology 07/10/21 Blanco Edwards NP [address] [place] [address] Specialist Cardiology 08/02/22 documented as of this encounter
--- OUTSIDE RECORDS SUMMARY | 2024-12-15 17:00 | XMS_ITS | Encounter Summary ---
Author Organization [facility] Address [address] [place] [address] Care Team Providers Care Crm Solution Architect Name Role Phone Ashwin Arzola MD Primary Care Provider [phone] Sotero Connell MD Unavailable [phone] Blanco Edwards NP Unavailable [phone] Encounter Details Date Type Department Care Team Description 02/01/2023 Transfer Records Medical Records [address] Social History Tobacco Use Types Packs/Day Years [...] suspected to have Coronavirus/COVID-19? No / Unsure 02/03/2023 10:25 AM EDT documented as of this encounter Plan of Treatment Not on file documented as of this encounter Visit Diagnoses Not on filedocumented in this encounter Care Teams Crm Solution Architect Relationship Specialty Start Date End Date Ashwin Arzola MD [address] [place] [address] [phone] PCP - General Internal Medicine 08/01/20 Sotero Connell MD [address] [place] [address] Specialist Cardiology 07/10/21 Blanco Edwards NP [address] [place] [address] [phone] Specialist Cardiology 08/02/22 documented as of this encounter
--- OUTSIDE RECORDS SUMMARY | 2024-12-15 17:00 | XMS_ITS | Encounter Summary ---
Author Organization [facility] Address [address] [place] [address] Care Team Providers Care Seat Maker Name Role Phone Name, Braulio CHIANG Primary Care Provider Unavailabl e Dudley Brown MD Primary Care Provider Unavail able Ajit Montanez MD Primary Care Provide r Unavailable Sujey Browning MD Primary Care Provider Un available Dudley Brown MD Primary Care Provider Unavail able Nancy Vines DO Primary Care Pro vider Unavailable Ashwin Arzola MD Primary Care Provider [phone] Sujey Browning MD Primary Care Provider Un available Sotero Connell MD Unavailable [phone] Blanco Edwards NP Unavailable [phone] Encounter Details Date Type Department Care Team Description 07/27/2014 Lean Specialist Report Medical Records [address] [place], [place] [address] [place] [address], [facility] Social History Tobacco Use Types Packs/Day [...] on filedocumented in this encounter Care Teams Seat Maker Relationship Specialty Start Date End Date Name, [...] Internal Medicine 04/13/20 07/31/20 Ashwin Arzola MD [address] [place] [address] [phone] PCP - General Internal Medicine 08/01/20 Sujey Browning MD PCP - General 07/03/15 11/12/15 Sotero Connell MD [address] [place] [address] [phone] Specialist Cardiology 07/10/21 Blanco Edwards NP [address] [place] [phone] Specialist Cardiology 08/02/22 documented as of this encounter
--- OUTSIDE RECORDS SUMMARY | 2024-12-15 17:00 | XMS_ITS | Encounter Summary ---
Author Organization [place] [address] Care Team Providers Care Roving Can Tender Name Role Phone Ashwin Arzola MD Primary Care Provider [phone] Encounter Details Date Type Department Care Team ([facility] st Contact Info) Description 11/02/2024 Telephone Adult Medicine [address] [phone] Sandi Gomez RN Social History Tobacco Use Types Packs/Day [...] as of this encounter Progress Notes * Joyce Mathew RN - 11/12/2024 3:07 PM EST Call to pt. Using ring cutter lathe operator, #[id number]. Message left to call the office to speak to the triage nurse. * Sandi Gomez RN - 11/02/2024 10:38 AM EST Seen in [facility] ER 10/27 for elevated troponin level Left vm for pt to return my call. documented in this encounter Plan of Treatment Upcoming Encounters Date Type Department Care Team (Late st Contact Info) Description 12/20/2024 10:30 AM EDT Office Visit Adult [address] [phone] Ashwin Arzola MD [address] [place] [address] 01/17/2025 2:00 PM EDT Office Visit Orthopedic Surgery - [place] [address] [phone] Linus Luna, DPM [address] [address] 01/27/2025 2:30 PM EDT Office Visit [address] [phone] Timmy Avina PA [address] [place] [address] 04/08/2025 9:40 AM EDT Appointment Radiology Department [address] [phone] documented as of this encounter Visit Diagnoses Not on filedocumented in this encounter Care Teams Roving Can Tender Relationship Specialty Start Date End Date Ashwin Arzola MD [address] [place] [address] PCP - General Internal Medicine 08/01/20 documented as of this encounter
--- OUTSIDE RECORDS SUMMARY | 2024-12-15 17:00 | XMS_ITS | Encounter Summary ---
Author Organization [facility] Address [address] [place] [address] Care Team Providers Care Clinical Medical Assistant Name Role Phone Ashwin Arzola MD Primary Care Provider [phone] Sotero Connell MD Unavailable [phone] Blanco Edwards NP Unavailable [phone] Encounter Details Date Type Department Care Team Description 12/15/2020 Telephone Adult Medicine [address] [id number] Willow Monique PA-C Social History Tobacco Use Types Packs/Day Years [...] Miscellaneous Notes * Telephone Encounter - Latasha Marrero - 12/15/2020 1:42 PM EST Spoke to the office. At this time theyu do not have anything sooner. They have put her on a cancelation list. They usually have cancellations on Friday. They will contact the patient if anyuthing else becomes available. * Telephone Encounter - Willow Monique PA-C - 12/15/2020 1:10 PM EST Please see if patient can be seen sooner than 12/21 in GI. She is anemic and has significantly dropped in hgb and hct since last month. If she cannot, then 12/21 is fine and she will be advised to go to the ED should she become symptomatic. Called patient's daughter with results and informed of the blood loss anemia. She is advised to take her mom to the ED should she experience any lightheadedness, extreme weakness, or pica symptoms. Thank you Willow Monique PA-C documented in this encounter Plan of Treatment Not on file documented as of this encounter Visit Diagnoses Not on filedocumented in this encounter Care Teams Clinical Medical Assistant Relationship Specialty Start Date End Date Ashwin Arzola MD [address] [place] [address] PCP - General Internal Medicine 08/01/20 Sotero Connell MD [address] [place] [address] Specialist Cardiology 07/10/21 Blanco Edwards NP [address] [place] [address] Specialist Cardiology 08/02/22 documented as of this encounter
--- OUTSIDE RECORDS SUMMARY | 2024-12-15 17:00 | XMS_ITS | Encounter Summary ---
Author Organization [facility] Address [address] [place] [address] Care Team Providers Care Sock Ironer Name Role Phone Ashwin Arzola MD Primary Care Provider [phone] Sotero Connell MD Unavailable [phone] Blanco Edwards NP Unavailable [phone] Encounter Details Date Type Department Care Team Description 08/01/2022 Telephone Pulmonology [address] [place] [address] Blane Shah MD Social History Tobacco Use Types Packs/Day [...] as of this encounter Visit Diagnoses Diagnosis JOSÉ and COPD overlap syndrome (HCC) documented in this encounter Care Teams Sock Ironer Relationship Specialty Start Date End Date Ashwin Arzola MD [address] [place] [address] PCP - General Internal Medicine 08/01/20 Sotero Connell MD [address] [place] [address] Specialist Cardiology 07/10/21 Blanco Edwards NP [address] [place] [address] Specialist Cardiology 08/02/22 documented as of this encounter
--- OUTSIDE RECORDS SUMMARY | 2024-12-15 17:00 | XMS_ITS | Encounter Summary ---
Author Organization [facility] Address [address] [place] [address] Care Team Providers Care Marriage And Family Counselor Name Role Phone Ashwin Arzola MD Primary Care Provider [phone] Sotero Connell MD Unavailable [phone] Blanco Edwards NP Unavailable [phone] Reason for Visit * Reason Comments E-prescribe Rx Request Encounter Details Date Type Department Care Team Description 10/10/2022 Refill Adult Medicine [address] [address] Pearl Lomax PA-C E-prescribe Rx Request Social History Tobacco Use [...] encounter Miscellaneous Notes * Telephone Encounter - Deepti Early M.A. - 10/10/2022 3:38 PM EST Last office visit 08/08/22 Next office visit 12/19/22 Lab Results Component Value Date NA 140 08/15/2022 K 3.7 08/15/2022 CO2 31 08/15/2022 CL 102 08/15/2022 BUN 26 08/15/2022 CREAT 0.75 08/15/2022 GLU 193 08/15/2022 CA 9.0 08/15/2022 GFR 87 08/15/2022 * Telephone Encounter - Jossie Lamar - 10/10/2022 3:16 PM EST Patient is calling for the status. * Telephone Encounter - Maryann Sevilla - 10/10/2022 3:08 PM EST Patient would like script to be: E-PRESCRIBED/FAXED TO PHARMACY ?? WHEN WAS THE PATIENT'S LAST APPOINTMENT IN ADULT MEDICINE? 08/08/22 ?? WHEN WAS THE LAST TIME THE PATIENT SAW THEIR PCP? 06/07/22 ?? Does patient have an upcoming appointment? Yes 12/19/22 ?? (THE MEDICATION REQUESTED IS ON THE MED LIST ABOVE) All of the medications requested were on the CURRENT MEDS list ?? Did you check the Pharmacy information above?: YES ?? Patient wants: 90 -day supply ?? Is this a mail order prescription request ? NO ?? If the refill is from a FAXED refill request what is the RX # listed on the fax? N/A ?? Patients current insurance carrier is: Payor: [facility] / Plan: Managed Objects $0 [facility] [id number] / Product Type: HMO [id number] ?? documented in this encounter Plan of Treatment Not on file documented as of this encounter Visit Diagnoses Not on filedocumented in this encounter Care Teams Marriage And Family Counselor Relationship Specialty Start Date End Date Ashwin Arzola MD [address] [place] [address] PCP - General Internal Medicine 08/01/20 Sotero Connell MD [address] [place] [address] Specialist Cardiology 07/10/21 Blanco Edwards NP [address] [place] [address] Specialist Cardiology 08/02/22 documented as of this encounter
--- OUTSIDE RECORDS SUMMARY | 2024-12-15 17:00 | XMS_ITS | Encounter Summary ---
Author Organization [facility] Address [address] [place] [address] Care Team Providers Care Secondary School Principal Name Role Phone Ashwin Arzola MD Primary Care Provider [phone] Sotero Connell MD Unavailable [phone] Blanco Edwards NP Unavailable [phone] Encounter Details Date Type Department Care Team Description 01/16/[address] [facility] [address] [place] [address] [phone] Ashwin Arzola MD [address] [place] [address] [phone] Social History Tobacco Use Types Packs/Day Years [...] Miscellaneous Notes * Telephone Encounter - Antonio WestonPMillieN. - 01/16/2023 3:21 PM EDT BSR took a message from Jama from [facility] [phone] He called me back he wants to know why the patient doesn't have PT and nursing Was discharge from [facility] with and RXfor PT and nursfdsing they did not make arrangement with an agency I advised he call [facility] and tell them tof make the arrangement or he will report them to Medicare He agrees Patient has hospital follow up with Dr. Arzola 01/21 May need a home care referral documented in this encounter Plan of Treatment Not on file documented as of this encounter Visit Diagnoses Not on filedocumented in this encounter Care Teams Secondary School Principal Relationship Specialty Start Date End Date Ashwin Arzola MD [address] [place] [address] PCP - General Internal Medicine 08/01/20 Sotero Connell MD [address] [place] [address] Specialist Cardiology 07/10/21 Blanco Edwards NP [address] [place] [address] Specialist Cardiology 08/02/22 documented as of this encounter
--- OUTSIDE RECORDS SUMMARY | 2024-12-15 17:00 | XMS_ITS | Encounter Summary ---
Author Organization [facility] Address [address] [place] [address] Care Team Providers Care Solar Hot Water Installer Name Role Phone Ashwin Arzola MD Primary Care Provider [phone] Sotero Connell MD Unavailable [phone] Blanco Edwards NP Unavailable [phone] Encounter Details Date Type Department Care Team Description 11/20/2020 Telephone Pulmonology - [place] [address] [facility] [address] [place] [address] David Gao MD [address] [facility] [address] [place] [address] Social History Tobacco Use Types Packs/Day Years [...] have Coronavirus / COVID-19? No / Unsure 11/20/2020 1:44 PM EST documented as of this encounter Miscellaneous Notes * Telephone Encounter - David Gao MD - 11/20/2020 2:09 PM EST Pending overnight oxymetry documented in this encounter Plan of Treatment Not on file documented as of this encounter Visit Diagnoses Not on filedocumented in this encounter Care Teams Solar Hot Water Installer Relationship Specialty Start Date End Date Ashwin Arzola MD [address] [place] [address] [phone] PCP - General Internal Medicine 08/01/20 Sotero Connell MD [address] [place] [address] [phone] Specialist Cardiology 07/10/21 Blanco Edwards NP [address] [place] [address] [phone] Specialist Cardiology 08/02/22 documented as of this encounter
--- OUTSIDE RECORDS SUMMARY | 2024-12-15 17:00 | XMS_ITS | Encounter Summary ---
Author Organization [facility] Address [address] [place] [address] Care Team Providers Care Montessori Toddler Teacher Name Role Phone Sujey Browning MD Primary Care Provider Un available Dudley Brown MD Primary Care Provider Unavail able Nancy Vines DO Primary Care Pro vider Unavailable Ashwin Arzola MD Primary Care Provider [phone] Sotero Connell MD Unavailable [phone] [facility] ch[facility] NP Unavailable [phone] Encounter Details Date Type Department Care Team Description 02/10/2018 Home Health Certification Medical Records [address] [place] [address] Social History Tobacco Use Types Packs/Day Years [...] on filedocumented in this encounter Care Teams Montessori Toddler Teacher Relationship Specialty Start Date End Date Sujey Browning MD PCP - General Internal Medicine 03/27/1608/02 Dudley Brown MD PCP - General Internal Medicine 08/03/19 04/12/20 Nancy Vines DO PCP - General Internal Medicine 04/13/20 07/31/20 Ashwin Arzola MD [address] [place] [address] [phone] PCP - General Internal Medicine 08/01/20 Sotero Connell MD [address] [place] [address] Specialist Cardiology 07/10/21 Blanco Edwards NP [address] [place] [address] Specialist Cardiology 08/02/22 documented as of this encounter
--- OUTSIDE RECORDS SUMMARY | 2024-12-15 17:00 | XMS_ITS | Encounter Summary ---
Author Organization [facility] Address [address] [place] [address] Care Team Providers Care Director Surgical Name Role Phone Sujey Browning MD Primary Care Provider Un available Dudley Brown MD Primary Care Provider Unavail able Nancy Vines DO Primary Care Pro vider Unavailable Ashwin Arzola MD Primary Care Provider [phone] Sotero Connell MD Unavailable [phone] [facility] Unavailable [phone] Reason for Visit * Reason Onset Date Comments Prior Authorization 03/27/2018 Encounter Details Date Type Department Care Team Description 03/27/2018 Telephone Gastroenterology - [address] [address] Omid Grijalva MD Prior Authorization Social History Tobacco Use [...] encounter Miscellaneous Notes * Telephone Encounter - Lizz Calzada M.A. - 03/27/2018 3:44 PM EDT Msg was already sent to regarding the linzess, there are two messages done, please see other prior auth * Telephone Encounter - Irina Shaw - 03/27/2018 2:44 PM EDT Pre Authorization for Medication-do not complete and send this encounter unless you have the fax from the pharmacy. Is this a Cover My Meds request: [place] of Medication LINZESS Dose of Medication 72 MCG CAPSULES How does patient take this med? Take 1 capsule by mouth daily What Pharmacy did the fax come from: [facility], [address] [place] [address] [id number] Pharmacy fax #: [phone], [employer] Information from fax: What Prescription Plan does the patient have? BIN/PCN if applicable: Cardholder ID: Person Code: Relationship Code: Help desk phone: [phone] documented in this encounter Plan of Treatment Not on file documented as of this encounter Visit Diagnoses Not on filedocumented in this encounter Care Teams Director Surgical Relationship Specialty Start Date End Date Sujey Browning MD PCP - General Internal Medicine 03/27/1608/02 Dudley Brown MD PCP - General Internal Medicine 08/03/19 04/12/20 Nancy Vines DO PCP - General Internal Medicine 04/13/20 07/31/20 Ashwin Arzola MD [address] [place] [address] PCP - General Internal Medicine 08/01/20 Sotero Connell MD [address] [place] [address] Specialist Cardiology 07/10/21 Blanco Edwards NP [address] [place] [address] Specialist Cardiology 08/02/22 documented as of this encounter
--- OUTSIDE RECORDS SUMMARY | 2024-12-15 17:01 | XMS_ITS | Encounter Summary ---
Author Organization [facility] Address [address] [place] [address] Care Team Providers Care Machinery Erector Name Role Phone Ashwin Arzola MD Primary Care Provider [phone] Sotero Connell MD Unavailable [phone] Blanco Edwards NP Unavailable [phone] Encounter Details Date Type Department Care Team Description 07/10/2021 Release of Information Medical Records [address] [place] [address] [facility] Social History Tobacco Use Types Packs/Day [...] have Coronavirus / COVID-19? No / Unsure 07/09/2021 3:46 PM EDT documented as of this encounter Plan of Treatment Not on file documented as of this encounter Visit Diagnoses Not on filedocumented in this encounter Care Teams Machinery Erector Relationship Specialty Start Date End Date Ashwin Arzola MD [address] [place] [address] [phone] PCP - General Internal Medicine 08/01/20 Sotero Connell MD [address] [place] [address] Specialist Cardiology 07/10/21 Blanco Edwards NP [address] [place] [address] [phone] Specialist Cardiology 08/02/22 documented as of this encounter
--- OUTSIDE RECORDS SUMMARY | 2024-12-15 17:01 | XMS_ITS | Encounter Summary ---
Author Organization [facility] Address [address] [place] [address] Care Team Providers Care Hose Finisher Name Role Phone Nancy Vines DO Primary Care Pro vider Unavailable Ashwin Arzola MD Primary Care Provider [phone] Sotero Connell MD Unavailable [phone] Blanco Edwards NP Unavailable [phone] Reason for Visit * Reason Comments E-prescribe Rx Request Encounter Details Date Type Department Care Team Description 04/14/2020 Refill Adult Medicine [facility] [address] [place] [address] Michaela Jama PA-C [address] [place] [address] E-prescribe Rx Request Social History Tobacco Use [...] * Telephone Encounter - Debbie Rojas - 04/18/2020 10:52 AM EDT Last ov 01/18/20 Ov 05/04/20 Lab Results Component Value Date NA 137 03/16/2020 K 4.3 03/16/2020 CO2 26 03/16/2020 CL 106 03/16/2020 BUN 22 03/16/2020 CREAT 0.76 03/16/2020 GLU 111 03/16/2020 CA 8.7 03/16/2020 GFR > 60 03/16/2020 * Telephone Encounter - Willowterence Morejon - 04/18/2020 10:46 AM EDT Patient would like script to be: E-PRESCRIBED/FAXED TO PHARMACY WHEN WAS THE PATIENT'S LAST APPOINTMENT IN ADULT MEDICINE? 03/16/20 WHEN WAS THE LAST TIME THE PATIENT SAW THEIR PCP? Has not seen Does patient have an upcoming appointment? Yes 05/04/20 (THE MEDICATION REQUESTED IS ON THE MED LIST ABOVE) All of the medications requested were on the CURRENT MEDS list Did you check the Pharmacy information above?: YES Patient wants: 90 -day supply Is this a mail order prescription request ? NO If the refill is from a FAXED refill request what is the RX # listed on the fax? N/A Patients current insurance carrier is: Payor: [facility] / Plan: Flams[employer] $0 [id number] / Product Type: HMO [id number] documented in this encounter Plan of Treatment Not on file documented as of this encounter Visit Diagnoses Not on filedocumented in this encounter Care Teams Hose Finisher Relationship Specialty Start Date End Date Nancy Vines DO PCP - General Internal Medicine 04/13/20 07/31/20 Ashwin Arzola MD [address] [place] [address] PCP - General Internal Medicine 08/01/20 Sotero Connell MD [address] [place] [address] [place] [address] Specialist Cardiology 07/10/21 Blanco Edwards NP [address] [place] [address] Specialist Cardiology 08/02/22 documented as of this encounter
--- OUTSIDE RECORDS SUMMARY | 2024-12-15 17:01 | XMS_ITS | Encounter Summary ---
Author Organization [facility] Address [address] [place] [address] Care Team Providers Care Business Technology Architect Name Role Phone Ashwin Arzola MD Primary Care Provider [phone] Sotero Connell MD Unavailable [phone] Blanco Edwards NP Unavailable [phone] Reason for Visit * Reason Onset Date Comments Medication 02/26/2022 Encounter Details Date Type Department Care Team Description 02/26/2022 Telephone [facility] [address] [id number] Linus Luna DPM [address] [id number] Medication Social History Tobacco Use Types Packs/Day Years [...] suspected to have Coronavirus/COVID-19? No / Unsure 02/26/2022 1:12 PM EDT documented as of this encounter Miscellaneous Notes * Telephone Encounter - Kayla Jaquez - 03/01/2022 1:50 PM EDT Spoke with Pharmacy and let them know that it is 1 tab daily at night time. * Telephone Encounter - Laura Naila Hercules - 02/26/2022 2:25 PM EDT Received incoming call from [employer], they need Clarification on the Gabapentin. They need to know how many tabs the patient should be taking daily Pleae call pharmacy back @ [phone]. documented in this encounter Plan of Treatment Not on file documented as of this encounter Visit Diagnoses Not on filedocumented in this encounter Care Teams Business Technology Architect Relationship Specialty Start Date End Date Ashwin Arzola MD [address] [place] [address] PCP - General Internal Medicine 08/01/20 Sotero Connell MD [address] [place] [address] Specialist Cardiology 07/10/21 Blanco Edwards NP [address] [place] [address] Specialist Cardiology 08/02/22 documented as of this encounter
--- OUTSIDE RECORDS SUMMARY | 2024-12-15 17:01 | XMS_ITS | Data Portability ---
Author Organization [employer] [place] [facility] [employer] Address [address] [place] [address] Care Team Providers Care Carton Filler Name Role Phone HIM [facility] Prim carlyn Care Provider Assessment Encounter Date Assessment Date Assessment LastModified by Organization Details LastModified Time 04/23/2024 04/23/2024 As noted, we wer e called to see this patient regarding concerns of hospital discharge. Evaluation in the field was performed by my floor coverings installer colleague, as noted above, I provided real-time direction and supervision for this visit. The evaluation revealed a 68y F with recent hospital discharge after an admission for r/o TIA. She reports feeling well and at baseline, though caregiver this morning was concerned. Per medic, exam reassuring, VSS, she is able to ambulate. She was actually out this morning when the team first tried to come by. Encouraged patient to call if anythign changes and to f/u with PCP at next available. Impression: hospital f/u Plan: reassurance, precautions Primary care, consider f/u in coming 5-7d for hospital d/c follow up Disposition: We discussed the diagnostic uncertainty of home visits and the risk associated with this. In this case, the patient and I felt this to be an acceptable and reasonable amount of risk given the benefit of avoiding an ED visit. We discussed the need to seek care urgently/emergently in the setting of any new or worsening serious symptoms, particularlyworsening weakness, shob, falls, chest pain, dizziness, confusion, difficulty taking PO atilhou Not available 04/23/2024 20:12:12 08/23/2024 08/23/2024 I provided real -time medical direction via phone for this encounter, and was available for additional phone based assistance as needed. I have reviewed and agree with the Assessment and Plan as documented by the Database Administration Manager. We discussed the diagnostic uncertainty of home visits and the risk associated with this/ the patient given the opportunity to ask questions. Advised if develops CP/severe SOB/turning blue/uncontrolled n/v/d /AMS/ syncope/ hi fever /cold blue leg or increasing red hot leg with uncontrolled pain to call 911- verbalized understanding of instruction [email or web address] Not available 08/23/2024 18:06:23 Plan of Treatment Reminders Order Date Submit Date Provider Last Modified By Organization Details Last Modified Time Details Appointments None recorded. Lab None recorded. Referral None recorded. Procedures None recorded. Surgeries None recorded. Imaging None recorded. Medication Orders prednisone 10 mg tablet 2023 [facility]acy #[id number], [address] [place], [address], 19:32:25 azithromyci n 250 mg tablet 2023 [facility]/Pharmacy #2071, [address] [place], [address], 4 19:32:25 azithromyci n 250 mg tablet 2023 0[address] [facility] [address] [facility]199, [address], [place], [id number], 4 19:32:23 prednisone 50 mg tablet 2023 [facility]/Pharmacy #2071, [address] [place], [address], 4 19:32:26 prednisone 20 mg tablet [address] [facility] [facility]44892, [address], [place], [id number], 4 19:32:23 ipratropium 0.5 mg-albutero l 3 mg (2.5 mg base)/3 mL nebulizatio n soln 2023 024 [email or web address] n[facility] #77529, [address], [place], [id number], 4 19:32:23 doxycycline hyclate 100 mg tablet 2023 024 [facility] [address] [place], [address], 4 14:01:33 mupirocin 2 % topical ointment 2023 024 [facility] [address] [place], [address], 4 14:01:34 acetaminoph en 500 mg tablet 2023 024 [email or web address] 0 [facility] #87544, [address], [place], [id number], 4 14:01:28 acetaminoph en 500 mg tablet 2023 024 [facility] [address] [place], [address], 4 14:01:34 bacitracin 500 unit/gram topical ointment 2023 024 [email or web address] 0 [facility] [employer] [facility] #97239, [address], [place], [id number], 4 18:08:41 doxycycline hyclate 100 mg tablet 2023 024 [email or web address] 0 [facility] [employer] [facility] #49109, [address], [place], [id number], 4 18:08:42 Patient TargetsNo targets recorded. Patient Instructions Encounter Date Encounter Id Patient Instructions Last Modified By Organization Details Last Modified Time 08/23/2024 [id number] application of wound dressing* - Wound cleansed with saline, pat dry with gauze, then superficial bacitracin applied,.I prefer mupirocin but the medic did not have any. Then bulky dry sterile dressing applied limiting tape on the skin and medic left some dressing supplies for the patient [email or web address] Not available 08/23/2024 18:08:41 Reason for Referral None Reported. Medical Equipment None Reported. Allergies Allergen ID Allergen Name Allergen Category Reaction Reaction Severity Criticality Documentation Date Start Date Code Code System Note Provider Name and Address Organization Details Recorded Time 9765 Product containin g penicilli n (product) medicatio n Not available Not available Not available 08/10/2024 49948 8001 SNOMED Not Available [facility] - production 4 04:57:28 Medications Name Sig Start Date Stop Date Status Note LastModified by Organization Details LastModified Time atorvastatin 80 mg tablet TOME 1 TABLETA POR V A ORAL TODOS LOS D AL ACOSTARSE active Not Available Not Available No t Available prednisone 10 mg tablet Take 5 tablets every day by oral route in the morning for 5 days. 2023 active Not Available Not Available Not Avai lable cefuroxime axetil 250 mg tablet TAKE 1 TABLET BY MOUTH TWICE DAILY active Not Available Not Available No t Available trazodone 50 mg tablet active Not Available Not Available No t Available cetirizine 10 mg tablet TAKE 1 TABLET BY MOUTH AT BEDTIME active Not Available Not Available No t Available amitriptylin e 150 mg tablet TOME 1 TABLETA POR V A ORAL TODOS LOS D AL ACOSTARSE active Not Available Not Available No t Available azithromycin 250 mg tablet TAKE 1 TABLET BY MOUTH ONCE DAILY FOR 4 DAYS active Not Available Not Available No t Available senna 8.6 mg tablet TAKE 1 TABLET BY MOUTH DAILY active Not Available Not Available Not Available ondansetron HCl 4 mg tablet TAKE 1 TABLET BY MOUTH EVERY 8 HOURS NEEDED FOR NAUSEA active Not Available Not Available No t Available clonazepam 0.5 mg tablet TAKE 1 TABLET BY MOUTH TWICE DAILY NEEDED active Not Available Not Available No t Available clonazepam 1 mg tablet TOME TREMAYNE TABLETA POR V A ORAL AL ACOSTARSE active Not Available Not Available No t Available bacitracin 500 unit/gram topical ointment Apply 1 application by topical route. 2023 active Not Available Not Available Not Avai lable omeprazole 40 mg capsule,michelle yed release TAKE 1 CAPSULE BY MOUTH DAILY active Not Available Not Available Not Available aspirin 81 mg tablet,delay ed release TAKE 1 TABLET BY MOUTH EVERY DAY active Not Available Not Available No t Available tramadol 50 mg tablet TOME TREMAYNE TABLETA POR V A ORAL CADA OCHO HORAS CUANDO SEA NECESARIO active Not Available Not Available No t Available quetiapine 100 mg tablet TAKE 1 TABLET BY MOUTH AT BEDTIME. INCREASE FROM 50 MG active Not Available Not Available N ot Available amitriptylin e 50 mg tablet TAKE 1 TABLET BY MOUTH EVERY NIGHT AT BEDTIME active Not Available Not Available No t Available acetaminophe n 500 mg tablet TAKE 2 TABLETS EVERY 8 HOURS BY ORAL ROUTE NEEDED, FOR PAIN active Not Available Not Available No t Available butalbital-a cetaminophen -caffeine 50 mg-325 mg-40 mg tablet TAKE 1 TABLET BY MOUTH EVERY 6 HOURS NEEDED active Not Available Not Available No t Available famotidine 20 mg tablet TAKE 1 TABLET BY MOUTH AT BEDTIME active Not Available Not Available No t Available magnesium oxide 400 mg (241.3 mg magnesium) tablet TAKE 1 TABLET BY MOUTH EVERY DAY active Not Available Not Available No t Available valproic acid (as sodium salt) 250 mg/5 mL oral solution TAKE 10 ML BY MOUTH EVERY NIGHT AT BEDTIME FOR ODD active Not Available Not Available No t Available OneTouch Ultra Test strips USE TO CHECK BLOOD SUGAR TWICE DAILY active Not Available Not Available No t Available pantoprazole 40 mg tablet,delay ed release TOME 1 TABLETA POR V A ORAL TODOS LOS D active Not Available Not Available No t Available prednisone 50 mg tablet TAKE 1 TABLET BY MOUTH ONCE DAILY IN THE MORNING FOR 5 DAYS active Not Available Not Available N ot Available lidocaine 5 % topical patch PLACE 1 PATCH ONTO THE SKIN EVERY 24 HOURS FOR 28 DAYS. APPLY FOR NO MORE THAN 12 HOURS IN ANY 24 HOUR PERIOD. active Not Available Not Available No t Available docusate sodium 100 mg capsule TAKE ONE CAPSULE BY MOUTH TWICE DAILY active Not Available Not Available No t Available pyridoxine (vitamin B6) 50 mg tablet TAKE 1 TABLET BY MOUTH EVERY DAY active Not Available Not Available No t Available gabapentin 300 mg capsule TOME 1 C PSULA POR V A ORAL BENJAMIN VECES AL D A active Not Available Not Available No t Available omeprazole 20 mg capsule,michelle yed release TAKE 1 CAPSULE BY MOUTH DAILY active Not Available Not Available Not Available hydrocortiso ne 2.5 % topical cream active Not Available Not Available Not Available montelukast 10 mg tablet TOME 1 TABLETA POR V A ORAL TODOS LOS D AL ACOSTARSE active Not Available Not Available No t Available mupirocin 2 % topical ointment APLIQUE A SMALL AMOUNT TO THE AFFECTED AREA BY TOPICAL ROUTE DOS VECES AL D A POR 10 D active Not Available Not Available No t Available gabapentin 100 mg capsule TAKE 1 CAPSULE BY MOUTH EVERY EVENING FOR DIABETIC PAIN active Not Available Not Available No t Available metoprolol succinate ER 25 mg tablet,exten ded release 24 hr TOME 1 TABLETA POR V A ORAL TODOS LOS D active Not Available Not Available No t Available nystatin 100,000 unit/gram topical powder APPLY TOPICALLY FOUR TIMES DAILY NEEDED active Not Available Not Available No t Available ibuprofen 600 mg tablet TAKE 1 TABLET BY MOUTH EVERY 6 TO 8 HOURS NEEDED active Not Available Not Available No t Available zolpidem 10 mg tablet TAKE 1 TABLET BY MOUTH AT BEDTIME active Not Available Not Available No t Available albuterol sulfate HFA 90 mcg/actuatio n aerosol inhaler INHALE 2 PUFFS INTO THE LUNGS EVERY 4 HOURS NEEDED FOR COUGH OR WHEEZING active Not Available Not Available No t Available ondansetron 4 mg disintegrati ng tablet DISSOLVE 1 TABLET ON THE TONGUE EVERY 8 HOURS FOR UP TO 7 DAYS NEEDED FOR NAUSEA active Not Available Not Available No t Available metformin ER 500 mg tablet,exten ded release 24 hr TAKE 1 TABLET BY MOUTH TWICE DAILY WITH MEALS active Not Available Not Available No t Available risperidone 1 mg tablet TAKE 1 TABLET BY MOUTH TWICE DAILY active Not Available Not Available No t Available doxycycline hyclate 100 mg tablet TOME TREMAYNE TABLETA POR V A ORAL DOS VECES AL D A POR 7 D active Not Available Not Available No t Available loratadine 10 mg tablet TOME 1 TABLETA POR V A ORAL TODOS LOS D active Not Available Not Available No t Available naproxen 500 mg tablet TAKE 1 TABLET BY MOUTH TWICE DAILY WITH MEALS active Not Available Not Available No t Available metocloprami de 10 mg tablet TAKE 1 TABLET BY MOUTH FOUR TIMES DAILY active Not Available Not Available Not Available ciclopirox 0.77 % topical gel APPLY TOPICALLY DAILY DIRECTED active Not Available Not Available No t Available aripiprazole 20 mg tablet active Not Available Not Available Not Available metoprolol tartrate 25 mg tablet active Not Available Not Available No t Available nitrofuranto in monohydrate/ macrocrystal s 100 mg capsule TAKE 1 CAPSULE BY MOUTH EVERY 12 HOURS FOR 7 DAYS active Not Available Not Available N ot Available duloxetine 20 mg capsule,michelle yed release TOME 1 C PSULA POR V A ORAL TODOS LOS D WITH 60MG CAPSULE active Not Available Not Available No t Available duloxetine 60 mg capsule,michelle yed release TAKE 1 CAPSULE BY MOUTH EVERY DAY active Not Available Not Available No t Available OneTouch UltraSoft Lancets USE TO CHECK SUGARS TWICE DAILY active Not Available Not Available Not Available budesonide-f ormoterol HFA 160 mcg-4.5 mcg/actuatio n aerosol inhaler active Not Available Not Available Not Available Lantus Solostar U-100 Insulin 100 unit/mL (3 mL) subcutaneous pen INJECT 30 UNITS UNDER THE SKIN EVERY DAY active Not Available Not Available No t Available Stimulant Laxative Plus 8.6 mg-50 mg tablet TAKE 1 TABLET BY MOUTH TWICE DAILY active Not Available Not Available No t Available Easy Comfort Pen Brinnon 31 gauge x 5/16 USE DIRECTED THREE TIMES DAILY active Not Available Not Available No t Available Anoro Ellipta 62.5 mcg-25 mcg/actuatio n powder for inhalation INHALE 1 PUFF INTO THE LUNGS EVERY DAY active Not Available Not Available No t Available Incruse Ellipta 62.5 mcg/actuatio n powder for inhalation active Not Available Not Available N ot Available Spiriva Respimat 1.25 mcg/actuatio n solution for inhalation active Not Available Not Available N ot Available Trelegy Ellipta 100 mcg-62.5 mcg-25 mcg powder for inhalation INHALE 1 PUFF BY MOUTH DAILY active Not Available Not Available Not Available Vitals Date Recorded Heart rate Respiratory rate Body temperature Oxygen saturation Oxygen saturation in Arterial blood by Pulse oximetry Systolic blood pressure Diastolic blood pressure Provider Name and Address Organization Details Last Updated DateTime 4 69 /min 14 /min 97 [degF] 95 % 95 % 102 mm[Hg] 64 mm[Hg] Not Available [facility] - [facility] 4 17:15:21 Date Recorded Heart rate Respiratory rate Body temperature Oxygen saturation Oxygen saturation in Arterial blood by Pulse oximetry Systolic blood pressure Diastolic blood pressure Provider Name and Address Organization Details Last Updated DateTime 4 92 /min 18 /min 97.9 [degF] 96 % 96 % 135 mm[Hg] 78 mm[Hg] Not Available [facility] 4 19:42:38 Date Recorded Respiratory rate Heart rate Body temperature Oxygen saturation Oxygen saturation in Arterial blood by Pulse oximetry Systolic blood pressure Diastolic blood pressure Provider Name and Address Organization Details Last Updated DateTime 4 16 /min 74 /min 98.6 [degF] 98 % 98 % 110 mm[Hg] 70 mm[Hg] Not Available [facility] [employer] [facility] 4 13:42:15 Date Recorded Body temperature Respiratory rate Body weight Body height Heart rate Oxygen saturation Oxygen saturation in Arterial blood by Pulse oximetry Systolic blood pressure Diastolic blood pressure Provider Name and Address Organization Details Last Updated DateTime 4 99.1 [degF] 14 /min 19481.6 g 167.64 cm 90 /min 96 % 96 % 148 mm[Hg] 78 mm[Hg] Not Available [employer] 4 19:25:22 Social History None recorded. Functional Status None recorded. Mental Status None recorded. Family History Nothing Reported. Medical History No medical history recorded. Gynecological HistoryNo gynecological history recorded. Obstetrics History GPAL:G 0 P 0 0 0 0 Past Encounters Encounter ID Performer Location Encounter Start Date Encounter Closed Date Diagnosis/Indication Diagnosis SNOMED-CT Code Diagnosis ICD10 Code Diagnosis Note [id number] Argelia Aceves MD [facility] [address] [place] [id number] 02/09/2024 17:15:15 02/09/2024 22:22:30 Injury of head 83647432 S09.90XA 68 year old female being evaluated after a head injury yesterday. Patient had a fall yesterday with LOC, 911 called by a friend who was on the phone with the patient at the time of the fall. No hospital transfer at that time, but patient with persistent somnolence /lethargy, and pounding headache since. No nausea/vom iting, but had another fall last night. Patient is not on bloodthinn ers. Exam notable for a lethargic appearing female with normal vital signs, alert and oriented. Presentati on consistent head trauma, consistent with severe concussion , although cannot rule out intracrani al hemorrhage . Recommende d hospital transfer for head imaging and additional work up for predisposi ng conditions leading to her initial fall. I have reviewed and agree with the assessment and plan as documented by the floor coverings installer. I provided real-time medical direction for this encounter and was immediatel y available to provide additional phone-base d assistance as needed. We discussed the diagnostic uncertaint y of home visits and associated risks. We discussed the need to seek care urgently/e mergently in the setting of any new or worsening symptoms. [id number] Gunjan Park MD [facility] - [facility] [address] [place] [id number] 04/23/2024 19:42:36 04/25/2024 22:12:32 Post-discharge follow-up [id number] Z09 [id number] Daya Almanza MD [facility] - [facility] [address] [place] [address] [id number] 08/23/2024 13:42:09 08/23/2024 21:01:21 Cellulitis of left lower limb [id number] L03.116 puncture wound w/ infectionA dvised need to get x-ray to fully evaluate the extent of the damage-to rule out foreign body, possible fracture (although the latter is less likely because she is still ambulatory ) and the patient refused to leave. Risks of worse infection explained- including retained foreign body -loss of limb Allergies and pharmacy reviewed-r sharonda [facility] on [facility] in [place] Advised patient need to follow-up with PCP tomorrow-n ote also sent to health care specialist through [facility]:micheline had metal trina ferro her left LE approx 1 week ago from [employer]- now has wound infection- advised needs xrays to rule out retained foreign body/any gas causing organisms /doubt fracture as she is ambulatory - she refused to go anywhere during visit today to have xray-I requested that CP work with PCP to get f/u appointmen t and outpatient xray of LLE Advised patient to keep the wound clean, reviewed dressing instructio ns, advised to elevate the leg to reduce swelling. She verbalized understand ing to the medic patient has had doxycyclin e before according to her med list [id number] Hector Llanes MD Main - [facility] [address] [place] [id number] 09/21/2024 19:25:20 09/23/2024 00:02:50 Acute exacerbation of chronic obstructive pulmonary disease [id number] J44.1 As noted, we were called to see this patient regarding concerns of breathing difficulty , cough, sputum, concerning for COPD exacerbati on. Evaluation in the field was performed by my floor coverings installer colleague, as noted above, I provided real-time direction and supervisio n for this visit. The evaluation revealed reassuring VS and coarse rhonchi throughout . Per notes, pt got IV vancomycin and cefepime in hospital. Impression :COPD exacerbati on most likely based on story, exam, PMH. Ddx would also include PNA but less likely given recent course of abx. Plan:Acute COPD exacerbati on treatment - azithro and pred, as ordered Primary care, please call patient to check in tomorrow. Dispositio n:We discussed the diagnostic uncertaint y of home visits and the risk associated with this. In this case, the patient and I felt this to be an acceptable and reasonable amount of risk given the benefit of avoiding an ED visit. We discussed the need to seek care urgently/e mergently in the setting of any new or worsening serious symptoms, particular ly worsening dyspnea, altered mental status. Health Concerns Section Related Observation LastModified by Organization Detai ls LastModified Time None Recorded Concern Status LastModified by Organization Details LastModified Time None Recorded Advance Directives Directive None Recorded Payers Encounter Date Sequence Insurance Name Policy Number Policy Edwards Covered Member ID Edwards Member ID Guarantor Name 02/09/2024 1 [facility] [employer] - DOS ON OR AFTER 2023 - DUAL ELIGIBLE - CORRECTION OPTIONS AND ONE CARE (MEDICARE REPLACEMENT/ADV ANTAGE - HMO) Melyssa Keating [id number] Melyssa Keating 04/23/2024 1 [facility] [employer] - DOS ON OR AFTER 2023 - DUAL ELIGIBLE - CORRECTION OPTIONS AND ONE CARE (MEDICARE REPLACEMENT/ADV ANTAGE - HMO) Melyssa Keating [id number] Melyssa Keating 08/23/2024 1 [facility] [employer] - DOS ON OR AFTER 2023 - DUAL ELIGIBLE - CORRECTION OPTIONS AND ONE CARE (MEDICARE REPLACEMENT/ADV ANTAGE - HMO) Melyssa Keating [id number] Melyssa Keating 09/21/2024 1 [facility] [employer] - DOS ON OR AFTER 2023 - DUAL ELIGIBLE - CORRECTION OPTIONS AND ONE CARE (MEDICARE REPLACEMENT/ADV ANTAGE - HMO) Melyssa Keating [id number] Melyssa Keating Notes Date Note Type Note Provider Name and Address Organization Details Recorded Time 02/09/2024 text/html HPI: Member was falling asleep on phone with health care specialist. Minimally responsive to prompts. She refused pressing her PERS and refused health care specialist calling 911. ..................... ..................... ..................... ..................... ..................... ..................... ............... [facility] Nurse Triage Notes (Bailey Chavez): Comments: [facility] outreach to member was unsuccessful. Unable to reach- N Kathy VERNON ..................... ..................... ..................... ..................... ..................... ..................... ............... Database Administration Manager Note From Kelvin Thomas: t reports falling in her bathroom at 2 am this morning. Pt sts she hit her head, blacked out and woke up to ? p aramedics? knocking down her door, putting her back in bed and leaving. Pt reports feeling very groggy, severe DANIEL, neck and back pain. Pt denies blood thinners, takes ASA 81 mg qd. Pt denies dizziness or vision changes. Pt is alert, NAD. Slow to respond at times. VSS. Afebrile. Non focal neuro exam. Normal gate. Pupils 3 mm + PERRLA. Lungs clear. ABD exam benign. No LE edema. Strong CSM in all extremities. FAST ED: 0. No palpable neck abnormalities. 911 initiated and SBAR given to [facility]. ..................... ..................... ..................... ..................... ..................... ..................... ............... Disposition: Fulfilled Argelia Aceves MD [address] [facility],[address], [place], [address], [facility] 02/09/2024 18:18:39 04/23/2024 text/html HPI: HPIarrived at member's home for 1st post hospitalization visit, she had fallen in the bathroom earlier taking a shower, she was very fatigued, kept falling asleep, C/O of DANIEL on and off X 3 days, poor appetite, weakness and nausea. Member given H2O, encouraged to drink. VSS today Recent hospitalization 04/10-04/12 for left leg weakness and slurred speech, all workup negative for CVA/TIA, symptoms resolved member D/C home, ..................... ..................... ..................... ..................... ..................... ..................... ............... [facility] Nurse Triage Notes (Carole Estrada): Comments: [facility] Nurse Triage Notes (Carole Estrada)Outreach to member completed with an cutter operator tile Member stated that she is feeling fine. Member did have a fall , denies hitting her head or pain after fall. Member denies any trouble staying awake. Member denies any sob, DANIEL, eating and drinking . Seemed to be delay in responding on with cutter operator tile unable to fully assessupdated 1553- unable to get a hold of member, called many times when did get a hold of her, she said she was at the bank and not at home, attempted lang line but member hung up, left a team message w/ Heidi whom requested the visit, no answer yet, will hold off on visit till making contact with member and [facility] [place]: hospitalized 04/10-04/12 for r/o TIA. requested visit by in-home caregiver as hospital f/u, partly caregiver reortedly assessed patient as fatigued and weak. However, patient reporting no concerning symptoms other than DANIEL, which is not new and recently prescribed naproxen for this. medic and patient report some unsteady gait at baseline/since hospital discharge resulting in rec for SNF that she decliend............. ..................... ..................... ..................... ..................... ..................... ..................... .. Database Administration Manager Note From Laura Lee: Dispatched for 68 yo female chief complaint of lethargy/weakness. U/a pt is found seated upright on couch in living room. Pt presents CA&Ox4, patent airway, normal breathing and skin signs warm, pink and dry. Language barrier present -> operational review sergeant services utilized. Pt states she has a headache but is prescribed Naproxen from doctor, she took the medication this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
--- OUTSIDE RECORDS SUMMARY | 2024-12-15 17:01 | XMS_ITS | Encounter Summary ---
Author Organization [facility] Address [address] [place] [address] Care Team Providers Care Cushion Stuffer Name Role Phone Sujey Browning MD Primary Care Provider Un available Dudley Brown MD Primary Care Provider Unavail able Nancy Vines DO Primary Care Pro vider Unavailable Ashwin Arzola MD Primary Care Provider [phone] Sotero Connell MD Unavailable [phone] Blanco Edwards NP Unavailable [phone] Reason for Referral * Non MIKE (Routine) - New Request Specialty Diagnoses / Procedures Referred By Contradha t Referred To Contact Physical Therapy Diagnoses Pain in joint of left shoulder Procedures REFERRAL TO PHYSICAL THERAPY Sujey Browning MD [address] [place] [id number] External Phys Thrpy Referral ID Status Reason Start Date Expiration Date V isits Requested Visits Authorized [id number] New Request 07/22/2019 01/18/2020 1 1 Reason for Visit * Reason Onset Date Comments Monotype Mechanic Feedback 07/14/2019 Pt Encounter Details Date Type Department Care Team Description 07/14/2019 Telephone Adult Medicine [facility] [address] [place] [address] Sujey Browning MD Monotype Mechanic Feedback (Pt) Social History Tobacco Use Types Packs/Day Years [...] encounter Miscellaneous Notes * Telephone Encounter - Emelia Mclean - 07/14/2019 9:07 AM EDT Please sign updated order, thank you documented in this encounter Plan of Treatment Not on file documented as of this encounter Visit Diagnoses Diagnosis Pain in joint of left shoulder- Primary Pain in joint, shoulder region documented in this encounter Care Teams Cushion Stuffer Relationship Specialty Start Date End Date Sujey Browning MD PCP - General Internal Medicine 03/27/1608/02 Dudley Brown MD PCP - General Internal Medicine 08/03/19 04/12/20 Nancy Vines DO PCP - General Internal Medicine 04/13/20 07/31/20 Ashwin Arzola MD [address] [place] [address] PCP - General Internal Medicine 08/01/20 Sotero Connell MD [address] [place] [address] 99902 Specialist Cardiology 07/10/21 Blanco Edwards NP [address] [place] [address] 46869 Specialist Cardiology 08/02/22 documented as of this encounter
--- OUTSIDE RECORDS SUMMARY | 2024-12-15 17:01 | XMS_ITS | Encounter Summary ---
Author Organization [facility] Address [address] [place] [address] Care Team Providers Care Reel Winder Name Role Phone Name, Braulio CHIANG Primary Care Provider Unavailabl Dudley Mancuso MD Primary Care Provider Unavail able Ajit Montanez MD Primary Care Provide r Unavailable Sujey Browning MD Primary Care Provider Un available Dudley Brown MD Primary Care Provider Unavail able Nancy Vines DO Primary Care Pro vider Unavailable Ashwin Arzola MD Primary Care Provider [phone] Sujey Browning MD Primary Care Provider Un available Sotero Connell MD Unavailable [phone] Blanco Edwards NP Unavailable [phone] Encounter Details Date Type Department Care Team Description 04/09/2012 Apprentice Machinist Outside Report Medical Records [address] [place] [address] Shawn Holman Social History Tobacco Use Types [...] on filedocumented in this encounter Care Teams Reel Winder Relationship Specialty Start Date End Date Name, [...] Internal Medicine 04/13/20 07/31/20 Ashwin Arzola MD [address] [place] [address] [phone] PCP - General Internal Medicine 08/01/20 Sujey Browning MD PCP - General 07/03/15 11/12/15 Sotero Connell MD [address] [place] [address] [phone] Specialist Cardiology 07/10/21 Blanco Edwards NP [address] [place] [address] Specialist Cardiology 08/02/22 documented as of this encounter
--- OUTSIDE RECORDS SUMMARY | 2024-12-15 17:01 | XMS_ITS | Encounter Summary ---
Author Organization [facility] Address [address] [place] [address] Care Team Providers Care Entertainment Centre Manager Name Role Phone Ashwin Arzola MD Primary Care Provider [phone] Sotero Connell MD Unavailable [phone] Blanco Edwards NP Unavailable [phone] Encounter Details Date Type Department Care Team Description 12/16/2023 Orders Only Radiology - [place] [address] [place] [address] Alber Benites PA-C [address] [facility] [address] [place] [address] Diabetes mellitus without complication (HCC) (Primary Dx) Social History Tobacco Use Types [...] documented as of this encounter Results * CHG CREATININE BLOOD (12/16/2023 11:22 AM EST) CREAT 0.68 0.5 - 1.1 mg/dL 12/16/2023 2:17 PM EST [facility] GLOMERULAR FILTRATION RATE 94 >60 12/16/2023 2:17 PM EST [facility] Comment: This eGFR result was calculated using the CKD-EPI 2020 Creatinine Equation 12/16/2023 11:2 2 AM EST 12/16/2023 11:22 AM EST Narrative CHRISTINA FRANKLIN - 12/16/2023 2:17 PM EST Release to patient->Immediate Alber Benites PA-C [facility]ANKLIN documented in this encounter Visit Diagnoses Diagnosis Diabetes mellitus without complication (HCC)- Primary Type II or unspecified type diabetes mellitus without mention of complication, not stated as uncontrolled Diabetes mellitus without complication (HCC) Type II or unspecified type diabetes mellitus without mention of complication, not stated as uncontrolled documented in this encounter Care Teams Entertainment Centre Manager Relationship Specialty Start Date End Date Ashwin Arzola MD [address] [place] [address] PCP - General Internal Medicine 08/01/20 Sotero Connell MD [address] [place] [address] 69233 Specialist Cardiology 07/10/21 Blanco Edwards NP [address] [place] [address]709 Specialist Cardiology 08/02/22 documented as of this encounter
--- OUTSIDE RECORDS SUMMARY | 2024-12-15 17:01 | XMS_ITS | Encounter Summary ---
Author Organization [facility] Address [address] [place] [address] Care Team Providers Care Sizing Machine Operator Name Role Phone Sujey Browning MD Primary Care Provider Un available Dudley Brown MD Primary Care Provider Unavail able Nancy Vines DO Primary Care Pro vider Unavailable Ashwin Arzola MD Primary Care Provider [phone] Sotero Connell MD Unavailable [phone] [facility] NP Unavailable [phone] Encounter Details Date Type Department Care Team Description 03/26/2019 Certified Prosthetist Report Medical Records [address] [place] [address] Rehab., [place] Social History Tobacco Use Types Packs/Day Years [...] on filedocumented in this encounter Care Teams Sizing Machine Operator Relationship Specialty Start Date End Date Sujey Browning MD PCP - General Internal Medicine 03/27/1608/02 Dudley Brown MD PCP - General Internal Medicine 08/03/19 04/12/20 Nancy Vines DO PCP - General Internal Medicine 04/13/20 07/31/20 Ashwin Arzola MD [address] [place] [address] PCP - General Internal Medicine 08/01/20 Sotero Connell MD [address] [place] [address] [phone] Specialist Cardiology 07/10/21 Blanco Edwards NP [address] [place] [address] [phone] Specialist Cardiology 08/02/22 documented as of this encounter
--- OUTSIDE RECORDS SUMMARY | 2024-12-15 17:01 | XMS_ITS | Encounter Summary ---
Author Organization [facility] Address [address] [place] [address] Care Team Providers Care Medical Sales Consultant Name Role Phone Ashwin Arzola MD Primary Care Provider [phone] Sotero Connell MD Unavailable [phone] Blanco Edwards NP Unavailable [phone] Reason for Visit * Reason Onset Date Comments Faxed Order 11/26/[address] [facility] er # [id number] Encounter Details Date Type Department Care Team Description 11/26/2023 Telephone Adult Medicine [address] [phone] Ashwin Arzola MD [address] [place] [phone] Faxed Order ([facility] Order # [id number]) Social History Tobacco Use Types Packs/Day Years [...] Miscellaneous Notes * Telephone Encounter - Ricarda Welch - 11/26/2023 10:55 AM EST [facility] Order # [id number] documented in this encounter Plan of Treatment Not on file documented as of this encounter Visit Diagnoses Not on filedocumented in this encounter Care Teams Medical Sales Consultant Relationship Specialty Start Date End Date Ashwin Arzola MD [address] [place] [address]87 PCP - General Internal Medicine 08/01/20 Sotero Connell MD [address] [place] [address] [phone] Specialist Cardiology 07/10/21 Blanco Edwards NP [address] [place] [address] [phone] Specialist Cardiology 08/02/22 documented as of this encounter
--- OUTSIDE RECORDS SUMMARY | 2024-12-15 17:01 | XMS_ITS | Encounter Summary ---
Author Organization [facility] Address [address] [place] [address] Care Team Providers Care Condenser Tester Name Role Phone Ashwin Arzola MD Primary Care Provider [phone] Sotero Connell MD Unavailable [phone] Blanco Edwards NP Unavailable [phone] Reason for Visit * Reason Onset Date Comments Faxed Order 08/05/2024 Orders # [id number], and order # [id number] received from [facility]. Encounter Details Date Type Department Care Team Description 08/05/2024 Telephone Adult Medicine [address] [address] Ashwin Arzola MD [address] [place] [address] Faxed Order (Orders # [id number], and order # [id number] received from [facility]. ) Social History Tobacco Use Types Packs/Day [...] encounter Miscellaneous Notes * Telephone Encounter - César Albarran - 08/05/2024 2:49 PM EDT Orders # [id number], and order # [id number] received from [facility]. Please review date and sign. Placed in pcp's bin. documented in this encounter Plan of Treatment Not on file documented as of this encounter Visit Diagnoses Not on filedocumented in this encounter Care Teams Condenser Tester Relationship Specialty Start Date End Date Ashwin Arzola MD [address] [place] [address] PCP - General Internal Medicine 08/01/20 Sotero Connell MD [address] [place] [address] 74195 Specialist Cardiology 07/10/21 Blanco Edwards NP [address] [place] [address] 12038 Specialist Cardiology 08/02/22 documented as of this encounter
--- OUTSIDE RECORDS SUMMARY | 2024-12-15 17:01 | XMS_ITS | Encounter Summary ---
Author Organization [facility] Address [address] [place] [address] Care Team Providers Care Eye Surgeon Name Role Phone Sujey Browning MD Primary Care Provider Un available Dudley Brown MD Primary Care Provider Unavail able Nancy Vines DO Primary Care Pro vider Unavailable Ashwin Arzola MD Primary Care Provider [phone] Sotero Connell MD Unavailable [phone] [facility] Unavailable [phone] Encounter Details Date Type Department Care Team Description 03/26/2019 Packing Machine Inspector Report Medical Records [address] [place] [address] Rehab., [place] Social History Tobacco Use Types [...] on filedocumented in this encounter Care Teams Eye Surgeon Relationship Specialty Start Date End Date Sujey Browning MD PCP - General Internal Medicine 03/27/1608/02 Dudley Brown MD PCP - General Internal Medicine 08/03/19 04/12/20 Nancy Vines DO PCP - General Internal Medicine 04/13/20 07/31/20 Ashwin Arzola MD [address] [place] [address] PCP - General Internal Medicine 08/01/20 Sotero Connell MD [address] [place] [address] [phone] Specialist Cardiology 07/10/21 Blanco Edwards NP [address] [place] [address] [phone] Specialist Cardiology 08/02/22 documented as of this encounter
--- OUTSIDE RECORDS SUMMARY | 2024-12-15 17:01 | XMS_ITS | Encounter Summary ---
Author Organization [facility] Address [address] [place] [address] Care Team Providers Care Public Message Service Supervisor Name Role Phone Dudley Brown MD Primary Care Provider Unavail able Nancy Vines DO Primary Care Pro vider Unavailable Ashwin Arzola MD Primary Care Provider [phone] Sotero Connell MD Unavailable [phone] Blanco Edwards NP Unavailable [phone] Reason for Visit * Reason Onset Date Comments Testing 10/14/2019 CT Abd & Pelvis Encounter Details Date Type Department Care Team Description 10/14/2019 Telephone Adult Medicine [facility] [address] [place] [address] Daisy Singh MD Testing (CT Abd & Pelvis) Social History Tobacco Use Types Packs/Day Years [...] encounter Miscellaneous Notes * Telephone Encounter - Yusra Villagomez - 10/14/2019 12:46 PM EST [facility] No auth required Order faxed to Marie - this office will contact patient to schedule appointment. Once scheduled they will contact Edward and inform us of the date and time of appointment. documented in this encounter Plan of Treatment Not on file documented as of this encounter Visit Diagnoses Not on filedocumented in this encounter Care Teams Public Message Service Supervisor Relationship Specialty Start Date End Date Dudley Brown MD PCP - General Internal Medicine 08/03/19 04/12/20 Nancy Vines DO PCP - General Internal Medicine 04/13/20 07/31/20 Ashwin Arzola MD [address] [place] [address]34 PCP - General Internal Medicine 08/01/20 Sotero Connell MD [address] [place] [address]8946 Specialist Cardiology 07/10/21 Blanco Edwards NP [address] [place] [address] [phone] Specialist Cardiology 08/02/22 documented as of this encounter
--- OUTSIDE RECORDS SUMMARY | 2024-12-15 17:01 | XMS_ITS | Encounter Summary ---
Author Organization [facility] Address [address] [place] [address] Care Team Providers Care Irrigator Gravity Flow Name Role Phone Ashwin Arzola MD Primary Care Provider [phone] Sotero Connell MD Unavailable [phone] Blanco Edwards NP Unavailable [phone] Reason for Visit * Reason Onset Date Comments Faxed Order 07/09/2024 [facility] #[id number], [id number] Encounter Details Date Type Department Care Team Description 07/09/2024 Telephone Adult Medicine [address] [phone] Ashwin Arzola MD [address] [place] [address] Faxed Order ([facility]/Order #[id number], [id number]) Social History Tobacco Use Types Packs/Day Years [...] encounter Miscellaneous Notes * Telephone Encounter - Fartun Somers - 07/09/2024 11:41 AM EDT Received faxed order [id number], [id number] from [facility] and placed in provider bin. Please sign & fax to [phone] documented in this encounter Plan of Treatment Not on file documented as of this encounter Visit Diagnoses Not on filedocumented in this encounter Care Teams Irrigator Gravity Flow Relationship Specialty Start Date End Date Ashwin Arzola MD [address] [place] [address] [phone] PCP - General Internal Medicine 08/01/20 Sotero Connell MD [address] [place] [address] [phone] Specialist Cardiology 07/10/21 Blanco Edwards NP [address] [place] [address] [phone] Specialist Cardiology 08/02/22 documented as of this encounter
--- OUTSIDE RECORDS SUMMARY | 2024-12-15 17:01 | XMS_ITS | Encounter Summary ---
Author Organization [facility] Address [address] [place] [address] Care Team Providers Care Collateral Analyst Name Role Phone Ashwin Arzola MD Primary Care Provider [phone] Sotero Connell MD Unavailable [phone] Blanco Edwards NP Unavailable [phone] Encounter Details Date Type Department Care Team Description 11/12/2023 Cylinder Grinder Report Medical Records [address] [place] [address] Scott Lawson Social History Tobacco Use Types Packs/Day Years [...] on filedocumented in this encounter Care Teams Collateral Analyst Relationship Specialty Start Date End Date Ashwin Arzola MD [address] [place] [address] [phone] PCP - General Internal Medicine 08/01/20 Sotero Connell MD [address] [place] [address] [phone] Specialist Cardiology 07/10/21 Blanco Edwards NP [address] [place] [address] [phone] Specialist Cardiology 08/02/22 documented as of this encounter
--- OUTSIDE RECORDS SUMMARY | 2024-12-15 17:01 | XMS_ITS | Encounter Summary ---
Author Organization [facility] Address [address] [place] [address] Care Team Providers Care Public Health Program Manager Name Role Phone Ashwin Arzola MD Primary Care Provider [phone] Sotero Connell MD Unavailable [phone] Blanco Edwards NP Unavailable [phone] Reason for Visit * Reason Onset Date Comments Faxed Order 03/10/2024 [facility] er # [id number] Encounter Details Date Type Department Care Team Description 03/10/2024 Telephone Adult Medicine [address] [phone] Ashwin Arzola MD [address] [place] [address] [phone] Faxed Order ([facility] Order # [id number]) Social History Tobacco Use Types Packs/Day Years [...] filedocumented in this encounter Care Teams Public Health Program Manager Relationship Specialty Start Date End Date Ashwin Arzola MD [address] [place] [address] PCP - General Internal Medicine 08/01/20 Sotero Connell MD [address] [place] [address] Specialist Cardiology 07/10/21 Blanco Edwards NP [address] [place] [address] Specialist Cardiology 08/02/22 documented as of this encounter
--- OUTSIDE RECORDS SUMMARY | 2024-12-15 17:01 | XMS_ITS | Encounter Summary ---
Author Organization [facility] Address [address] [place] [address] Care Team Providers Care Proofer Prepress Name Role Phone Nancy Vines DO Primary Care Pro vider Unavailable Ashwin Arzola MD Primary Care Provider [phone] Sotero Connell MD Unavailable [phone] Blanco Edwards NP Unavailable [phone] Reason for Visit * Reason Onset Date Comments Faxed Refill 06/09/2020 Encounter Details Date Type Department Care Team Description 06/09/2020 Refill Adult Medicine [address] [address] Nancy Vines DO Faxed Refill Social History Tobacco Use Types Packs/Day Years [...] Telephone Encounter - Latasha Hartley M.A. - 06/09/2020 2:00 PM EDT Lab Results Component Value Date NA 137 03/16/2020 K 4.3 03/16/2020 CO2 26 03/16/2020 CL 106 03/16/2020 BUN 22 03/16/2020 CREAT 0.76 03/16/2020 GLU 111 03/16/2020 CA 8.7 03/16/2020 GFR > 60 03/16/2020 Last appt 04/25/20 * Telephone Encounter - Nicol Dasuzanna - 06/09/2020 1:14 PM EDT Patient would like script to be: E-PRESCRIBED/FAXED TO PHARMACY WHEN WAS THE PATIENT'S LAST APPOINTMENT IN ADULT MEDICINE? 05/04/2020 WHEN WAS THE LAST TIME THE PATIENT SAW THEIR PCP? 04/25/2020 Does patient have an upcoming appointment? Yes 07/13/2020 (THE MEDICATION REQUESTED IS ON THE MED LIST ABOVE) All of the medications requested were on the CURRENT MEDS list Did you check the Pharmacy information above?: YES Patient wants: 90 -day supply Is this a mail order prescription request ? NO If the refill is from a FAXED refill request what is the RX # listed on the fax? [id number] Patients current insurance carrier is: Payor: [place] [employer] / Plan: [employer] $0 [facility] [id number] / Product Type: HMO [id number] documented in this encounter Plan of Treatment Not on file documented as of this encounter Visit Diagnoses Not on filedocumented in this encounter Care Teams Proofer Prepress Relationship Specialty Start Date End Date Nancy Vines DO PCP - General Internal Medicine 04/13/20 07/31/20 Ashwin Arzola MD [address] [place] [address] PCP - General Internal Medicine 08/01/20 Sotero Connell MD [address] [place] [address] Specialist Cardiology 07/10/21 Blanco Edwards NP [address] [place] [address] Specialist Cardiology 08/02/22 documented as of this encounter
--- OUTSIDE RECORDS SUMMARY | 2024-12-15 17:01 | XMS_ITS | Encounter Summary ---
Author Organization [facility] Address [address] [place] [address] Care Team Providers Care Flight Security Specialist Name Role Phone Ashwin Arzola MD Primary Care Provider [phone] Sotero Connell MD Unavailable [phone] Blanco Edwards NP Unavailable [phone] Encounter Details Date Type Department Care Team Description 02/28/2024 Home Health Certification Medical Records [address] [place] [address] Scott Lawson Social History Tobacco Use Types [...] on filedocumented in this encounter Care Teams Flight Security Specialist Relationship Specialty Start Date End Date Ashwin Arzola MD [address] [place] [address] [phone] PCP - General Internal Medicine 08/01/20 Sotero Connell MD [address] [place] [address] [phone] Specialist Cardiology 07/10/21 Blanco Edwards NP [address] [place] [address] [phone] Specialist Cardiology 08/02/22 documented as of this encounter
--- OUTSIDE RECORDS SUMMARY | 2024-12-15 17:01 | XMS_ITS | Encounter Summary ---
Author Organization [facility] Address [address] [place] [address] Care Team Providers Care Terrapin Fisher Name Role Phone Ashwin Arzola MD Primary Care Provider [phone] Sotero Connell MD Unavailable [phone] Blanco Edwards NP Unavailable [phone] Encounter Details Date Type Department Care Team Description 02/10/2024 Orders Only Medical Records [address] [place] [address] [facility] Social History Tobacco Use Types Packs/Day [...] Date/Time Associated Diagnosis Comments OUTSIDE CT Routine 02/09/2024 documented in this encounter Results * OUTSIDE CT (02/09/2024) [facility] RADIOLOGY documented in this encounter Visit Diagnoses Not on filedocumented in this encounter Care Teams Terrapin Fisher Relationship Specialty Start Date End Date Ashwin Arzola MD [address] [place] [address] [phone] PCP - General Internal Medicine 08/01/20 Sotero Connell MD [address] [place] [address] Specialist Cardiology 07/10/21 Blanco Edwards NP [address] [place] [address] Specialist Cardiology 08/02/22 documented as of this encounter
--- OUTSIDE RECORDS SUMMARY | 2024-12-15 17:01 | XMS_ITS | Encounter Summary ---
Author Organization [facility] Address [address] [place] [address] Care Team Providers Care Blood Bank Worker Name Role Phone Dudley Brown MD Primary Care Provider Unavail able Ajit Montanez MD Primary Care Provide r Unavailable Sujey Browning MD Primary Care Provider Un available Dudley Brown MD Primary Care Provider Unavail able Nancy Vines DO Primary Care Pro vider Unavailable Ashwin Arzola MD Primary Care Provider [phone] Sujey Browning MD Primary Care Provider Un available Sotero Connell MD Unavailable Blanco Edwards NP Unavailable [phone] Encounter Details Date Type Department Care Team Description 08/28/2015 Area Cleaner Report Medical Records [address] [place] [address] Erik Langford MD Social History Tobacco Use [...] on filedocumented in this encounter Care Teams Blood Bank Worker Relationship Specialty Start Date End Date Dudley Brown MD PCP - General Internal Medicine 11/13/15 11/30/15 jAit Montanez MD PCP - General Internal Medicine 12/01/15 Sujey Browning MD PCP - General Internal Medicine 03/27/1608/02 Dudley Brown MD PCP - General Internal Medicine 08/03/19 04/12/20 Nancy Vines DO PCP - General Internal Medicine 04/13/20 07/31/20 Ashwin Arzola MD [address] [place] [address] [phone] PCP - General Internal Medicine 08/01/20 Sujey Browning MD PCP - General 07/03/15 11/12/15 Sotero Connell MD [address] [place] [address] [phone] Specialist Cardiology 07/10/21 Blanco Edwards NP [address] [place] [address] [phone] Specialist Cardiology 08/02/22 documented as of this encounter
--- OUTSIDE RECORDS SUMMARY | 2024-12-15 17:01 | XMS_ITS | Encounter Summary ---
Author Organization [facility] Address [address] [place] [address] Care Team Providers Care Water Tester Name Role Phone Ashwin Arzola MD Primary Care Provider [phone] Sotero Connell MD Unavailable [phone] Blanco Edwards NP Unavailable [phone] Encounter Details Date Type Department Care Team Description 03/15/2024 Orders Only Medical Records [address] [place] [address] [facility] Social History Tobacco Use Types Packs/Day Years [...] Associated Diagnosis Comments OUTSIDE PLAIN FILM Routine 03/14/2024 documented in this encounter Results * OUTSIDE PLAIN FILM (03/14/2024) [facility] RADIOLOGY documented in this encounter Visit Diagnoses Not on filedocumented in this encounter Care Teams Water Tester Relationship Specialty Start Date End Date Ashwin Arzola MD [address] [place] [address] [phone] PCP - General Internal Medicine 08/01/20 Sotero Connell MD [address] [place] [address] Specialist Cardiology 07/10/21 Blanco Edwards NP [address] [place] [address] Specialist Cardiology 08/02/22 documented as of this encounter
--- OUTSIDE RECORDS SUMMARY | 2024-12-15 17:01 | XMS_ITS | Encounter Summary ---
Author Organization [facility] Address [address] [place] [address] Care Team Providers Care Chain Puller Name Role Phone Ashwin Arzola MD Primary Care Provider [phone] Sotero Connell MD Unavailable [phone] Blanco Edwards NP Unavailable [phone] Reason for Visit * Reason Onset Date Comments Faxed Order 02/18/2022 [employer] plan of care Encounter Details Date Type Department Care Team Description 02/18/2022 Telephone Adult Medicine [address] [phone] Ashwin Arzola MD [address] [place] [address] [phone] Faxed Order ([facility] [employer] plan of care ) Social History Tobacco Use Types Packs/Day [...] was confirmed or suspected to have Coronavirus/COVID-19? Unable to assess 01/30/2022 12:32 PM EDT documented as of this encounter Plan of Treatment Not on file documented as of this encounter Visit Diagnoses Not on filedocumented in this encounter Care Teams Chain Puller Relationship Specialty Start Date End Date Ashwin Arzola MD [address] [place] [address] PCP - General Internal Medicine 10/20/20 Sotero Connell MD [address] [place] [address] [phone] Specialist Cardiology 07/10/21 Blanco Edwards NP [address] [place] [address] [phone] Specialist Cardiology 08/02/22 documented as of this encounter
--- OUTSIDE RECORDS SUMMARY | 2024-12-15 17:01 | XMS_ITS | Encounter Summary ---
Author Organization [facility] Address [address] [place] [address] Care Team Providers Care Bench Lathe Operator Name Role Phone Ashwin Arzola MD Primary Care Provider [phone] Sotero Connell MD Unavailable [phone] Blanco Edwards NP Unavailable [phone] Reason for Visit * Reason Onset Date Comments Faxed Order 06/16/2024 [employer] / Order # [id number] Encounter Details Date Type Department Care Team Description 06/16/2024 Telephone Adult Medicine [address] [phone] Ashwin Arzola MD [address] [place] [address] Faxed Order ([facility] / Order # [id number]) Social History Tobacco Use Types Packs/Day Years [...] encounter Miscellaneous Notes * Telephone Encounter - Graeme Kessler - 06/16/2024 2:34 PM EDT Faxed Order # [id number] From: [facility] Date:05/21/2024 To be reviewed, signed and faxed back to [phone] Placed in provider's bin documented in this encounter Plan of Treatment Not on file documented as of this encounter Visit Diagnoses Not on filedocumented in this encounter Care Teams Bench Lathe Operator Relationship Specialty Start Date End Date Ashwin Arzola MD [address] [place] [address] [phone] PCP - General Internal Medicine 08/01/20 Sotero Connell MD [address] [place] [address] [phone] Specialist Cardiology 07/10/21 Blanco Edwards NP [address] [place] [address] [phone] Specialist Cardiology 08/02/22 documented as of this encounter
--- OUTSIDE RECORDS SUMMARY | 2024-12-15 17:01 | XMS_ITS | Encounter Summary ---
Author Organization [facility] Address [address] [place] [address] Care Team Providers Care Accounts Receivable Coordinator Name Role Phone Sujey Browning MD Primary Care Provider Un available Dudley Brown MD Primary Care Provider Unavail able Nancy Vines DO Primary Care Pro vider Unavailable Ashwin Arzola MD Primary Care Provider [phone] Sotero Connell MD [facility]available [facility] Un[facility] Reason for Visit * Reason Onset Date Comments medication problems 07/14/2019 Encounter Details Date Type Department Care Team Description 07/14/2019 Telephone Adult Medicine [address] [address] Dudley Brown MD medication problems Social History Tobacco Use Types Packs/Day Years [...] encounter Miscellaneous Notes * Telephone Encounter - Teofilo Kiran PA-C - 07/14/2019 4:48 PM EDT Ok to fill. Sarina Becker * Telephone Encounter - Deepti Early M.A. - 07/14/2019 3:13 PM EDT Luciann, Please sign, freestyle no longer covered. Needed Accu-Chek Debora Plus. * Telephone Encounter - Tri Jazmine - 07/14/2019 2:37 PM EDT Who is calling? Insurance company Name of the medication Freestyle glucometer & supplies What is the specific problem or interaction? Not covered by ins/ requesting Accu -chek Debora Plus be sent to pharmacy If the patient is having a problem with taking the med - how long has the problem been going on? N/A documented in this encounter Plan of Treatment Not on file documented as of this encounter Visit Diagnoses Not on filedocumented in this encounter Care Teams Accounts Receivable Coordinator Relationship Specialty Start Date End Date Sujey Browning MD PCP - General Internal Medicine 03/27/1608/02 Dudley Brown MD PCP - General Internal Medicine 08/03/19 04/12/20 Nancy Vines DO PCP - General Internal Medicine 04/13/20 07/31/20 Ashwin Arzola MD [address] [place] [address] PCP - General Internal Medicine 08/01/20 Sotero Connell MD [address] [place] [address] Specialist Cardiology 07/10/21 Blanco Edwards NP [address] [place] [address] Specialist Cardiology 08/02/22 documented as of this encounter
--- OUTSIDE RECORDS SUMMARY | 2024-12-15 17:01 | XMS_ITS | Encounter Summary ---
Author Organization [facility] Address [address] [place] [address] Care Team Providers Care Rickshaw Driver Name Role Phone Name, Braulio CHIANG Primary Care Provider Unavailabl Dudley Mancuso MD Primary Care Provider Unavail able Ajit Montanez MD Primary Care Provide r Unavailable Sujey Browning MD Primary Care Provider Un available Dudley Brown MD Primary Care Provider Unavail able Nancy Vines DO Primary Care Pro vider Unavailable Ashwin Arzola MD Primary Care Provider [phone] Sujey Browning MD Primary Care Provider Un available Sotero Connell MD Unavailable [phone] Blanco Edwards NP Unavailable [phone] Reason for Visit * Reason Onset Date Comments Letter 02/27/2015 Encounter Details Date Type Department Care Team Description 02/27/2015 Telephone Adult [address] [address] Name, MD Braulio Letter Social History Tobacco Use Types Packs/Day Years [...] Miscellaneous Notes * Telephone Encounter - Viri Chase - 03/10/2015 12:27 PM EDT Patient calling on status of letter, she says she needs it norman * Telephone Encounter - Deepti Early M.A. - 02/27/2015 4:34 PM EDT Will you do a letter? * Telephone Encounter - Rowan Akbar - 02/27/2015 1:40 PM EDT Letter requested for: Abdi Garsia Reason for letter: patient lives on a 4th floor. She has chronic asthma and arthritis and having difficulties going up the stairs. Due to her medical issues we requesting patient to be transferred toa 1st and 2nd floor. Specific notations needed in body of letter: Date needed for completion: as soon as possible. When completed: Will seed cone picker-call when completed: documented in this encounter Plan of Treatment Not on file documented as of this encounter Visit Diagnoses Not on filedocumented in this encounter Care Teams Rickshaw Driver Relationship Specialty Start Date End Date Name, [...] Internal Medicine 04/13/20 07/31/20 Ashwin Arzola MD [address] [place] [address] PCP - General Internal Medicine 08/01/20 Sujey Browning MD PCP - General 07/03/15 11/12/15 Sotero Connell MD [address] [place] [address] Specialist Cardiology 07/10/21 Blanco Edwards NP [address] [place], [place] [phone] Specialist Cardiology 08/02/22 documented as of this encounter
--- OUTSIDE RECORDS SUMMARY | 2024-12-15 17:01 | XMS_ITS | Encounter Summary ---
Author Organization [facility] Address [address] [place] [address] Care Team Providers Care Gang Plank Workman Name Role Phone Dudley Brown MD Primary Care Provider Unavail able Nancy Vines DO Primary Care Pro vider Unavailable Ashwin Arzola MD Primary Care Provider [phone] Sotero Connell MD Unavailable [phone] Blanco Edwards NP Unavailable [phone] Encounter Details Date Type Department Care Team Description 01/21/2020 Refill Adult Medicine [address] [phone] Dudley Brown MD Social History Tobacco Use Types Packs/Day [...] on filedocumented in this encounter Care Teams Gang Plank Workman Relationship Specialty Start Date End Date Dudley Brown MD PCP - General Internal Medicine 08/03/19 04/12/20 Nancy Vines DO PCP - General Internal Medicine 04/13/20 07/31/20 Ashwin Arzola MD [address] [place] [address] PCP - General Internal Medicine 08/01/20 Sotero Connell MD [address] [place] [address] [phone] Specialist Cardiology 07/10/21 Blanco Edwards NP [address] [facility] JUSTA Patel [phone] Specialist Cardiology 08/02/22 documented as of this encounter
--- OUTSIDE RECORDS SUMMARY | 2024-12-15 17:01 | XMS_ITS | Data Portability ---
Author Organization [facility] [employer] [facility], Main Office Address [address], [address] [place] [address] Care Team Providers Care Optical Goods Drilling Machine Operator Name Role Phone AYAZ GUILLEN - 2ND FLOOR OTHER RENAN MARK Primary Care Provider [phone] Assessment No assessment recorded. Plan of Treatment Reminders Order Date Submit Date Provider Last Modified By Organization Details Last Modified Time Details Appointments None record ed. Lab None record ed. Referral None record ed. Procedures None record ed. Surgeries None record ed. Imaging None record ed. Medication Orders None record ed. Patient TargetsNo targets recorded. Patient InstructionsNo instructions recorded. Reason for Referral None Reported. Problems Name Problem SNOMED Code Status Onset Date Resolution Date Notes Provider Name and Address Organization Details Recorded Time Type 2 diabetes mellitus 75650748 Active 2023 Lynda Sinha MD [address], [address], [place], [address], [facility] [employer] [facility] 18:52:19 Cellulitis of left lower limb 2377473311503 9109 Active 2023 Lynda Sinha MD [address], [address], [place], [address], [facility] 18:52:25 Essential hypertensio n 86797963 Active 2023 Lynda Sinha MD [address], [address], [place], [address] , [facility] 18:53:29 Dementia with behavioral disturbance 4656648727197 Active 2023 Lynda Sinha MD [address], [address], [place], [address], [facility] 19:00:22 Hyperlipide sammi 73581499 Active 2023 Lynda Sinha MD [address], [address], [place], [address], [facility] 19:01:01 History of cerebral aneurysm 6826232703139 9109 Active 2023 Lynda Sinha MD [address], [address], [place], [address], [facility] 4 19:01:48 Chronic obstructive pulmonary disease 88017602 Active 2023 Lynda Sinha MD [address], [address], [place], [address], [facility] 4 19:03:01 Migraine 55502334 Active 2023 Lynda Sinha MD [address], [address], [place], [address], [facility] 4 19:04:18 Gastroesoph ageal reflux disease without esophagitis 260852800 Active 2023 Lynda Sinha MD [address], [address], [place], [address], [facility] 4 19:05:04 Problem Notes None recorded. Medical Equipment None Reported. Allergies Allergen ID Allergen Name Allergen Category Reaction Reaction Severity Criticality Documentation Date Start Date Code Code System Note Provider Name and Address Organization Details Recorded Time 45633 Product containin g penicilli n (product) medicatio n Not available Not available Not available 09/14/2024 18465 8001 SNOMED Not Available Not Available Not Available Vitals Date Recorded Body height Body mass index (BMI) Body weight Heart rate Respiratory rate Body temperature Oxygen saturation Oxygen saturation in Arterial blood by Pulse oximetry Systolic blood pressure Diastolic blood pressure Provider Name and Address Organization Details Last Updated DateTime 4 165.1 cm 31.1 kg/m2 60172.7 7 g 77 /min 18 /min 98 [degF] 98 % 98 % 142 mm[Hg] 72 mm[Hg] Lynda Sinha MD [address], [address], [place], [address], [facility] 4 15:39:49 Date Recorded Body height Body mass index (BMI) Body weight Heart rate Respiratory rate Body temperature Oxygen saturation Oxygen saturation in Arterial blood by Pulse oximetry Systolic blood pressure Diastolic blood pressure Provider Name and Address Organization Details Last Updated DateTime 165.1 cm 31.1 kg/m2 77914.7 7 g 69 /min 18 /min 98 [degF] 98 % 98 % 142 mm[Hg] 72 mm[Hg] Mallorie Hunter NP [address], [address], [place], [address], [facility] 11:14:18 Social History Question Answer Notes LastModified by Organizat ion Details LastModified Time Tobacco Smoking Status Former Smoker Smoked [id number] Lynda Sinha MD [address], [address], [place], [address], [facility] 09/14/2024 14:48:24 Do You Have An Advance Directive? Yes Information not available 09/14/2024 What Is Your Level Of Alcohol Consumption? None Information not available 09/14/2024 What Is Your Code Status? Full Code Information not available 09/14/2024 Where Do You Live? Apartment Alone, No Stairs Information not available 09/14/2024 Legal Guardian? No Informati on not available 09/14/2024 Do You Have A Medical Power Of Hose Suspender Cutter? Yes Information not available 09/14/2024 What Was The Date Of Your Most Recent Tobacco Screening? 09/14/2024 Information not available 09/14/2024 Do You Have An Out Of Hospital DNR? No Information not available 09/14/2024 What Is Your Relationship Status? Information not available 09/14/2024 How Much Tobacco Do You Smoke? No Information not available 09/14/2024 Do You Use Any Illicit Or Recreational Drugs? No Information not available 09/14/2024 Has Tobacco Cessation Counseling Been Provided? No N/a As Pt No Longer Smokes Information not available 09/14/2024 How Many Years Have You Smoked Tobacco? 15 Information not available 09/14/2024 Do You Or Have You Ever Used Any Other Forms Of Tobacco Or Nicotine? No Information not available 09/14/2024 Sex: Unknown Functional Status None recorded. Mental Status None recorded. Family History Nothing Reported Notes:n/c Medical History No medical history recorded. Gynecological HistoryNo gynecological history recorded. Obstetrics History GPAL:G 0 P 0 0 0 0 Immunizations Vaccine Type Date Status Note Provider Nam e and Address Organization Details Recorded Time Td(adult) unspecified formulation 9 completed Isha Hollis [facility] 09/08/2024 14:44:30 Td(adult) unspecified formulation 0 completed Isha Hollis [facility] 09/08/2024 14:44:40 Pneumococcal conjugate PCV 13 9 completed Isha Hollis [facility] 09/08/2024 14:44:59 Pneumococcal conjugate PCV 13 3 completed Isha Hollis [facility] 09/08/2024 14:45:08 Pneumococcal conjugate PCV 13 3 completed Isha Hollis [facility] 09/08/2024 14:45:16 pneumococcal polysaccharide PPV23 9 completed Isha Hollis [facility] 09/08/2024 14:46:27 pneumococcal polysaccharide PPV23 3 completed Isha Hollis [facility] 09/08/2024 14:46:39 pneumococcal polysaccharide PPV23 6 completed Isha Hollis [facility] 09/08/2024 14:46:46 influenza, unspecified formulation 2 [facility] 14:47:02 influenza, unspecified formulation 4 completed [facility] 14:47:11 SARS-COV-2 (COVID-19) vaccine, UNSPECIFIED 1 completed Isha Hollis [facility] 09/08/2024 14:47:30 SARS-COV-2 (COVID-19) vaccine, UNSPECIFIED 2 completed Isha Hollis [facility] 09/08/2024 14:47:43 zoster, unspecified formulation 1 completed Isha summers [facility] 09/08/2024 14:48:01 zoster, unspecified formulation 2 completed Isha summers [place] [facility] 09/08/2024 14:48:10 Past Encounters Encounter ID Performer Location Encounter Start Date Encounter Closed Date Diagnosis/Indication Diagnosis SNOMED-CT Code Diagnosis ICD10 Code Diagnosis Note [id number] Lynda Sinha MD [address] [place] [address] 09/14/2024 14:37:20 09/15/2024 10:44:58 Cellulitis of left lower limb 9050696505 7010154 L03.116 S/P LLE cellulitis without evidence of osteo.Comp leted abx inpt.Now almost all healed.Con tinue local skin care.Monit or. Type 2 jean betes mellitus 70083537 E11.9 Diet controlled at home.No BS checked since here.Will be going home tomorrow and will f/u with PCP. Essential hypertension 26967237 I10 Adequate control over first 3 days here, not checked since then.Sathya nue metoprolol 25 mg qd.Monitor BP and labs as outpt. Chronic ob structive pulmonary disease 37585649 J43.8 In hx.No current sxs.Unclea r why she is on both Incruse Ellipta and Trelegy, which both have umeclidini um in them.But will continue for now as pt is going home tomorrow.A lso continue montelukas t 10 mg qd and loratadine 10 mg qd.Monitor resp status. Dementia w ith behavioral disturbance 5056546213 103 F02.A18 Mild, but with hx of delusions and paranoia.S ome meds d/c'd inpt to avoid polypharma cy.Continu e amitriptyl ine 200 mg qhs, duloxetine 20 mg qd, gabapentin 300 mg TID and clonazepam 1 mg qhs.Monito r mood and behaviors. Provide supportive care.Does not need HCP invoked.F/ U as outpt. Hyperlipidemia 14792160 E78.49 Continue atorvastat in 80 mg qd. and ASA 81 mg qd.Monitor labs as outpt. History of cerebral aneurysm 1331837951 6240514 Z86.79 Stable per last CTA in 03/2024.Ventura plascencia with neuro as outpt. Migraine 99242212 G43.00 9 No current sxs.Was on fioricet as outpt.No recent sxs, so will not start right now.F/U as outpt. Gastroesop hageal reflux disease without esophagitis 149052081 K21.9 Continue pantoprazo le 40 mg qdMonitor GI sxs. [id number] Mallorie Hunter, [place] [facility] [address] [place] [address] 09/15/2024 11:13:41 09/16/2024 11:58:58 Cellulitis of left lower limb 2961984545 7369349 L03.116 S/P LLE cellulitis without evidence of osteo.Comp leted abx inpt.Now almost all healed.Ventura plascencia outpt with pcp appt 09/17 for s/s of infection Type 2 jean betes mellitus 81188617 E11.9 Diet controlled at home.No BS checked since here.f/u with PCP outpt Essential hypertension 68886421 I10 Adequate controlCon tinue metoprolol 25 mg qd.Monitor BP and labs as outpt. Chronic ob structive pulmonary disease 89570458 J43.8 In hx.No current sxs.Unclea r why she is on both Incruse Ellipta and Trelegycon tinuemonte lukast 10 mg qd and loratadine 10 mg qd.Monitor resp status outpt Dementia w ith behavioral disturbance 6362964106 103 F02.A18 Mild, but with hx of delusions and paranoia.S ome meds d/c'd inpt to avoid polypharma cy.Continu eamitripty line 200 mg qhs, duloxetine 20 mg qd, gabapentin 300 mg TID and clonazepam 1 mg qhs.Monito r mood and behaviors. Provide supportive care.Does not need HCP invoked.F/ U as outpt. Hyperlipidemia 96532100 E78.49 Continue atorvastat in 80 mg qd. and ASA 81 mg qd.Monitor labs as outpt. History of cerebral aneurysm 3512640717 3321342 Z86.79 Stable per last CTA in 03/2024.Mon itor with neuro as outpt. Migraine 29301425 G43.00 9 No current sxs.Was on fioricet as outpt.No recent sxs, so will not start right now.F/U as outpt with pcp Gastroesop hageal reflux disease without esophagitis 203334606 K21.9 Continuepa ntoprazole 40 mg qdMonitor GI sxs. outpt with pcp Health Concerns Section Related Observation LastModified by Organization Detai ls LastModified Time None Recorded Concern Status LastModified by Organization Details LastModified Time None Recorded Advance Directives Directive Y: Payers Encounter Date Sequence Insurance Name Policy Number Policy Edwards Covered Member ID Edwards Member ID Guarantor Name 09/14/2024 1 [facility] - DOS ON OR AFTER 2023 - MEDICARE [place]VANTAGE [place]EMENT/ADV ANTAGE - PPO) Melyssa Keating [id number] Melyssa Keating 09/15/2024 1 [facility] - DOS ON OR AFTER 2023 - [place]/ADV ANTAGE - PPO) Melyssa Keating [id number] Melyssa Keating Notes Date Note Type Note Provider Name and Address Organization Details Recorded Time 09/14/2024 text/html This is a 69 yo woman who is here for rehab after an acute hospitalization for She had initially been seen at [facility] ED on 08/25forleft LE cellulitisand started on doxy after hitting leg when getting into truck ~ 5 days earlier. And then on08/31 for SOB, determined to be due to anxiety. [facility] LLE increasing pain, swelling and redness. 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 low BP. Labs were non-acute.Xray showed no osteo or subq gas.She wasstarted on cefepime and vancoand admitted. She had someurinary retention thought due to severe constipation, which resolved after bowels moved (used po meds and enema).Blood cxs remained neg and she was improving, so it was determined that 5 days of IV abxs was adequate. In terms of her DM, she is diet controlled at home and was given SSI inpt. Most glucoses were <200 while inpt.In terms of psych/dementia, she had a hx of paranoid delusions and was hospitalized for [place] [facility] [place].She did not express any paranoia during this admission.She had previously said she thought her daughter was trying to poison her to get her life insurance money.PT recommended STR and she was transferred here on 09/07. Since here she has been working with rehab and doing very well.She walked 300' with walker and SBA.She would like to go home tomorrow.I see her with a guyanese speaking staff member.She tells me she is feeling strong enough to go home. 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 Her PMH includes HTN, AODM, hx of CVA with left sided weakness, COPD, HLD, dementia with delusions, right MCA aneurysm (3 cm x3.5 cm and stable), migraines, depression/anxiety. Lynda Sinha MD [address] [place] [address], [address], [place], [address], [employer] [facility] 09/14/2024 19:24:34 09/15/2024 text/html This is a 69 yo woman who is here for rehab after several acute hospitalizations seen today for a discharge summary. Her PMH includes HTN, AODM, hx of CVA with left sided weakness, COPD, HLD, dementia with delusions, right MCA aneurysm (3 cm x3.5 cm and stable), migraines, depression/anxiety. Per summary[facility] started on doxy after hitting leg when getting into truck ~ 5 days earlier.On08/31 for SOB, determined to be due to anxiety [facility] with LLE increasing pain, swelling and redness. 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 low BP. Labs were non-acute.Xray showed no osteo or subq gas. She wasstarted on cefepime and vancoand admitted. She had someurinary retention thought due to severe constipation, which resolved after bowels moved (used po meds and enema).Blood cxs remained neg and she was improving, so it was determined that 5 days of IV abxs was adequate. In terms of her DM, she is diet controlled at home and was given SSI inpt. Most glucose were <200 while inpt.In terms of psych/dementia, she had a hx of paranoid delusions and was hospitalized for this [place] [facility] [place]. She did not express any paranoia during this admission. PT recommended STR and she was transferred here on 09/07.No medications were changed in hospital. While here at [facility]:Melyssa continues to do well Since here she has been working with rehab and doing very well. She is walking 300' with walker and SBA.Today's visit assisted with a guyanese speaking staff member. She tells me she is feeling strong enough to go home and INFECTION PREVENTION PRACTITIONER and VNA will come when she calls today. She has an outpt appt with Dr Mark on 09/17 to followup. On exam, she is sitting up in chair, LLE is not hot and swelling appears to be resolving. She is pleasant and denies any concerns today. Mallorie Hunter, [place] [address], [address], [place], [address], [facility] 09/15/2024 11:39:51 OBGyn Episode No OBEpisode recorded.
--- OUTSIDE RECORDS SUMMARY | 2024-12-15 17:01 | XMS_ITS | Encounter Summary ---
Author Organization [facility] Address [address] [place] [address] Care Team Providers Care Wireless Network Engineer Name Role Phone Nancy Vines DO Primary Care Pro vider Unavailable Ashwin Arzola MD Primary Care Provider [phone] Sotero Connell MD Unavailable [phone] Blanco Edwards NP Unavailable [phone] Encounter Details Date Type Department Care Team Description 05/11/2020 Websphere Message Broker Developer Report Medical Records [address] [place] [address] Maty Espinoza II Social History Tobacco Use [...] on filedocumented in this encounter Care Teams Wireless Network Engineer Relationship Specialty Start Date End Date Nancy Vines DO PCP - General Internal Medicine 04/13/20 07/31/20 Ashwin Arzola MD [address] [place] [address] [phone] PCP - General Internal Medicine 08/01/20 Sotero Connell MD [address] [place] [address] [phone] Specialist Cardiology 07/10/21 Blanco Edwards NP [address] [place] [address] [phone] Specialist Cardiology 08/02/22 documented as of this encounter
--- OUTSIDE RECORDS SUMMARY | 2024-12-15 17:01 | XMS_ITS | Encounter Summary ---
Author Organization [facility] Address [address] [place] [address] Care Team Providers Care Steam And Gas Turbines Assembler Name Role Phone Dudley Brown MD Primary Care Provider Unavail able Nancy Vines DO Primary Care Pro vider Unavailable Ashwin Arzola MD Primary Care Provider [phone] Sotero Connell MD Unavailable [phone] Blanco Edwards NP Unavailable [phone] Encounter Details Date Type Department Care Team Description 08/26/2019 Staff Electronic Warfare Officer Report Medical Records [address] [place] [address] Social History Tobacco Use Types Packs/Day Years [...] on filedocumented in this encounter Care Teams Steam And Gas Turbines Assembler Relationship Specialty Start Date End Date Dudley Brown MD PCP - General Internal Medicine 08/03/19 04/12/20 Nancy Vines DO PCP - General Internal Medicine 04/13/20 07/31/20 Ashwin Arzola MD [address] [place], [place] [phone] PCP - General Internal Medicine 08/01/20 Sotero Connell MD [address] [place] [address] Specialist Cardiology 07/10/21 Blanco Edwards NP [address] [place] [address] Specialist Cardiology 08/02/22 documented as of this encounter
--- OUTSIDE RECORDS SUMMARY | 2024-12-15 17:01 | XMS_ITS | Encounter Summary ---
Author Organization [facility] Address [address] [place] [address] Care Team Providers Care Supervisor Receiving And Processing Name Role Phone Sujey Browning MD Primary Care Provider Un available Dudley Brown MD Primary Care Provider Unavail able Nancy Vines DO Primary Care Pro vider Unavailable Ashwin Arzola MD Primary Care Provider [phone] Sotero Connell MD Unavailable [phone] [facility] NP Unavailable [phone] Encounter Details Date Type Department Care Team Description 01/31/2017 Release of Information Medical Records [address] [place] [address] Abstract, Provider Social History Tobacco Use Types [...] on filedocumented in this encounter Care Teams Supervisor Receiving And Processing Relationship Specialty Start Date End Date Sujey Browning MD PCP - General Internal Medicine 03/27/1608/02 Dudley Brown MD PCP - General Internal Medicine 08/03/19 04/12/20 Nancy Vines DO PCP - General Internal Medicine 04/13/20 07/31/20 Ashwin Arzola MD [address] [place] [address] [phone] PCP - General Internal Medicine 08/01/20 Sotero Connell MD [address] [place] [address] [phone] Specialist Cardiology 07/10/21 Blanco Edwards NP [address] [place] [address] [phone] Specialist Cardiology 08/02/22 documented as of this encounter
--- OUTSIDE RECORDS SUMMARY | 2024-12-15 17:01 | XMS_ITS | Encounter Summary ---
Author Organization [facility] Address [address] [place] [address] Care Team Providers Care Voice Instructor Name Role Phone Ashwin Arzola MD Primary Care Provider [phone] Sotero Connell MD Unavailable [phone] Blanco Edwards NP Unavailable [phone] Encounter Details Date Type Department Care Team Description 03/16/2024 Telephone INFECTIOUS DISEASE [facility] [address], [address] [place] [address] Brittany Hu MD [address] [place] [address] Social History Tobacco Use Types Packs/Day Years [...] encounter Miscellaneous Notes * Telephone Encounter - Gabriela Cameron MA - 03/16/2024 9:46 AM EDT Please review for scheduling documented in this encounter Plan of Treatment Not on file documented as of this encounter Visit Diagnoses Not on filedocumented in this encounter Care Teams Voice Instructor Relationship Specialty Start Date End Date Ashwin Arzola MD [address] [place] [address] [phone] PCP - General Internal Medicine 08/01/20 Sotero Connell MD [address] [place] [address] Specialist Cardiology 07/10/21 Blanco Edwards NP [address] [place] [address] Specialist Cardiology 08/02/22 documented as of this encounter
--- OUTSIDE RECORDS SUMMARY | 2024-12-15 17:01 | XMS_ITS | Encounter Summary ---
Author Organization [facility] Address [address] [place] [address] Care Team Providers Care Lpn Medical Assistant Name Role Phone Ashwin Arzola MD Primary Care Provider [phone] Sotero Connell MD Unavailable [phone] Blanco Edwards NP Unavailable [phone] Reason for Visit * Reason Comments E-prescribe Rx Request Encounter Details Date Type Department Care Team Description 02/18/2024 Refill Adult Medicine [facility] [address] [place] [address] [phone] Ashwin Arzola MD [address] [place] [address] [phone] E-prescribe Rx Request Social History Tobacco Use [...] Telephone Encounter - Latasha Hartley M.A. - 02/25/2024 2:07 PM EDT Lab Results Component Value Date NA 137 11/07/2023 K 3.8 12/23/2023 CO2 30 11/07/2023 CL 100 11/07/2023 BUN 25 11/07/2023 CREAT 0.68 12/16/2023 GLU 159 11/07/2023 CA 9.9 11/07/2023 GFR 94 12/16/2023 Pending appt 06/11/24 Last appt 12/23/23 documented in this encounter Plan of Treatment Not on file documented as of this encounter Visit Diagnoses Not on filedocumented in this encounter Care Teams Lpn Medical Assistant Relationship Specialty Start Date End Date Ashwin Arzola MD [address] [place] [address] PCP - General Internal Medicine 08/01/20 Sotero Connell MD [address] [place] [address] Specialist Cardiology 07/10/21 Blanco Edwards NP [address] [place] [address] [phone] Specialist Cardiology 08/02/22 documented as of this encounter
--- OUTSIDE RECORDS SUMMARY | 2024-12-15 17:01 | XMS_ITS | Encounter Summary ---
Author Organization [facility] [place] [facility] Address [address] [place] [address] Care Team Providers Care Filing Writer Name Role Phone Ashwin Arzola MD Primary Care Provider [phone] Sotero Connell MD Unavailable [phone] Blanco Edwards NP Unavailable [phone] Encounter Details Date Type Department Care Team Description 05/10/2024 Orders Only Pulmonology - [address] [place] [address] Blane Shah MD JOSÉ (obstructive sleep apnea) mild AHI 8 Social History Tobacco Use Types Packs/Day Years [...] Procedure Name Priority Date/Time Associated Diagnosis Comments SLEEP STUDY-FULL NEURO 16 CHANNEL Routine 04/27/2024 JOSÉ (obstructive sleep apnea) mild AHI 8 documented in this encounter Results * SLEEP STUDY-FULL NEURO 16 CHANNEL (04/27/2024) Blane Shah MD PULMONOLOGY documented in this encounter Visit Diagnoses Diagnosis JOSÉ (obstructive sleep apnea) mild AHI 8 Obstructive sleep apnea (adult) (pediatric) documented in this encounter Care Teams Filing Writer Relationship Specialty Start Date End Date Ashwin Arzola MD [address] [place] [address] PCP - General Internal Medicine 08/01/20 Sotero Connell MD [address] [place] [address] Specialist Cardiology 07/10/21 Blanco Edwards NP [address] [place] [phone] Specialist Cardiology 08/02/22 documented as of this encounter
--- OUTSIDE RECORDS SUMMARY | 2024-12-15 17:01 | XMS_ITS | Encounter Summary ---
Author Organization [facility] Address [address] [place] [address] Care Team Providers Care Dental Coordinator Name Role Phone Ashwin Arzola MD Primary Care Provider [phone] Sotero Connell MD Unavailable [phone] Blanco Edwards NP Unavailable [phone] Encounter Details Date Type Department Care Team Description 04/12/2024 Hospital Medical Records [address] [place] [address] Nick Villagomez MD Social History Tobacco Use Types Packs/Day [...] on filedocumented in this encounter Care Teams Dental Coordinator Relationship Specialty Start Date End Date Ashwin Arzoal MD [address] [place] [address] [phone] PCP - General Internal Medicine 08/01/20 Sotero Connell MD [address] [place] [address] [phone] Specialist Cardiology 07/10/21 Blanco Edwards NP [address] [place] [address] Specialist Cardiology 08/02/22 documented as of this encounter
--- OUTSIDE RECORDS SUMMARY | 2024-12-15 17:01 | XMS_ITS | Encounter Summary ---
Author Organization [facility] Address [address] [place] [address] Care Team Providers Care Measuring Machine Tender Name Role Phone Ashwin Arzola MD Primary Care Provider [phone] Sotero Connell MD Unavailable [phone] Blanco Edwards NP Unavailable [phone] Reason for Visit * Reason Onset Date Comments Faxed Order 08/31/2021 Encounter Details Date Type Department Care Team Description 08/31/2021 Telephone Adult Medicine [address] [phone] Ashwin Arzola MD [address] [place] [address] Faxed Order Social History Tobacco Use Types [...] have Coronavirus / COVID-19? No / Unsure 08/23/2021 9:38 AM EST documented as of this encounter Miscellaneous Notes * Telephone Encounter - Enid Avery - 08/31/2021 7:22 PM EST Physical therapy evaluations & Care plans orders for Dr. Ashwin Arzola's signature documented in this encounter Plan of Treatment Not on file documented as of this encounter Visit Diagnoses Not on filedocumented in this encounter Care Teams Measuring Machine Tender Relationship Specialty Start Date End Date Ashwin Arzola MD [address] [place] [address] PCP - General Internal Medicine 08/01/20 Sotero Connell MD [address] [place] [address] [phone] Specialist Cardiology 07/10/21 Blanco Edwards NP [address] [place] [address] [phone] Specialist Cardiology 08/02/22 documented as of this encounter
--- OUTSIDE RECORDS SUMMARY | 2024-12-15 17:01 | XMS_ITS | Encounter Summary ---
Author Organization [facility] Address [address] [place] [address] Care Team Providers Care Daycare Teacher Name Role Phone Ashwin Arzola MD Primary Care Provider [phone] Sotero Connell MD Unavailable [phone] Blanco Edwards NP Unavailable [phone] Reason for Visit * Reason Onset Date Comments Faxed Order 04/29/2024 Scott Patino carlyn Report (02/28/24-04/21/24) Encounter Details Date Type Department Care Team Description 04/29/2024 Telephone Adult Medicine [address] [phone] Ashwin Arzola MD [address] [place] [address] Faxed Order (Scott Lawson/Summary Report (02/28/24-04/21/24)) Social History Tobacco Use Types Packs/Day Years [...] * Telephone Encounter - Fartun Somers - 04/29/2024 8:50 AM EDT Faxed Episode Summary Report for (02/28/24-04/21/24) from Scott Lawson received and placed in provider bin. Please review. documented in this encounter Plan of Treatment Not on file documented as of this encounter Visit Diagnoses Not on filedocumented in this encounter Care Teams Daycare Teacher Relationship Specialty Start Date End Date Ashwin Arzola MD [address] [place] [address] PCP - General Internal Medicine 08/01/20 Sotero Connell MD [address] [place] [address] Specialist Cardiology 07/10/21 Blanco Edwards NP [address] [place] [address] 270[address] Specialist Cardiology 08/02/22 documented as of this encounter
--- OUTSIDE RECORDS SUMMARY | 2024-12-15 17:01 | XMS_ITS | Encounter Summary ---
Author Organization [facility] Address [address] [place] [address] Care Team Providers Care Appliance Repairer Name Role Phone Dudley Brown MD Primary Care Provider Unavail able Nancy Vines DO Primary Care Pro vider Unavailable Ashwin Arzola MD Primary Care Provider [phone] Sotero Connell MD Unavailable Blanco Edwards NP Unavailable [phone] Encounter Details Date Type Department Care Team Description 11/04/2019 Refill Gastroenterology - [address] [place] [address] Dudley Brown MD Social History Tobacco Use [...] Miscellaneous Notes * Telephone Encounter - Emelia López M.A. - 11/05/2019 10:00 AM EST Ok I see both on PTs Chart my apologies. I will call and make Pt aware as well. Thank You ! * Telephone Encounter - Daisy Singh MD - 11/04/2019 5:45 PM EST She should be taking omeprazole 20 mg daily. NOT ranitidine. * Telephone Encounter - Emelia López M.A. - 11/04/2019 1:59 PM EST Rantidine Tablets are on back order but the capsules can be order , medication is pending documented in this encounter Plan of Treatment Not on file documented as of this encounter Visit Diagnoses Not on filedocumented in this encounter Care Teams Appliance Repairer Relationship Specialty Start Date End Date Dudley Brown MD PCP - General Internal Medicine 08/03/19 04/12/20 Nancy Vines DO PCP - General Internal Medicine 04/13/20 07/31/20 Ashwin Arzola MD [address] [place] [address] PCP - General Internal Medicine 08/01/20 Sotero Connell MD [address] [place] [address] Specialist Cardiology 07/10/21 Blanco Edwards NP [address] [place] [address] Specialist Cardiology 08/02/22 documented as of this encounter
--- OUTSIDE RECORDS SUMMARY | 2024-12-15 17:01 | XMS_ITS | Encounter Summary ---
Author Organization [facility] Address [address] [place] [address] Care Team Providers Care Medical Nurse Name Role Phone Ashwin Arzola MD Primary Care Provider [phone] Sotero Connell MD Unavailable [phone] Blanco Edwards NP Unavailable [phone] Encounter Details Date Type Department Care Team Description 11/13/2021 Hospital Medical Records [address] [place] [address] Social History Tobacco Use Types Packs/Day Years [...] Name Priority Date/Time Associated Diagnosis Comments OUTSIDE LAB Routine 11/15/[address] Routine 11/13/[address] Routine 11/13/2021 OUTSIDE PLAIN FILM Routine 11/13/2021 documented in this encounter Results * OUTSIDE LAB (11/15/2021) Provider Default LAB * OUTSIDE PLAIN FILM (11/13/2021) Provider Default RADIOLOGY * OUTSIDE CT (11/13/2021) Provider Default RADIOLOGY * OUTSIDE CT (11/13/2021) Provider Default RADIOLOGY documented in this encounter Visit Diagnoses Not on filedocumented in this encounter Care Teams Medical Nurse Relationship Specialty Start Date End Date Ashwin Arzola MD [address] [place] [address] PCP - General Internal Medicine 08/01/20 Sotero Connell MD [address] [place] [address] Specialist Cardiology 07/10/21 Blanco Edwards NP [address] [place] [address] Specialist Cardiology 08/02/22 documented as of this encounter
--- OUTSIDE RECORDS SUMMARY | 2024-12-15 17:01 | XMS_ITS | Encounter Summary ---
Author Organization [facility] Address [address] [place] [address] Care Team Providers Care Circus Artist Name Role Phone Ashwin Arzola MD Primary Care Provider [phone] Sotero Connell MD Unavailable [phone] [facility] Unavailable [phone] Encounter Details Date Type Department Care Team Description 03/04/2024 Orders Only Medical Records [address] [place] [address] [facility] Social History Tobacco Use Types Packs/Day [...] Date/Time Associated Diagnosis Comments OUTSIDE CT Routine 03/03/2024 OUTSIDE PLAIN FILM Routine 03/03/2024 documented in this encounter Results * OUTSIDE CT (03/03/2024) [employer] RADIOLOGY * OUTSIDE PLAIN FILM (03/03/2024) [facility] [employer] RADIOLOGY documented in this encounter Visit Diagnoses Not on filedocumented in this encounter Care Teams Circus Artist Relationship Specialty Start Date End Date Ashwin Arzola MD [address] [place], [place] [phone] PCP - General Internal Medicine 08/01/20 Sotero Connell MD [address] [place] [address] Specialist Cardiology 07/10/21 Blanco Edwards NP [address] [place] [address] [phone] Specialist Cardiology 08/02/22 documented as of this encounter
--- OUTSIDE RECORDS SUMMARY | 2024-12-15 17:01 | XMS_ITS | Encounter Summary ---
Author Organization [facility] Address [address] [place] [address] Care Team Providers Care Kelly Machine Operator Name Role Phone Ashwin Arzola MD Primary Care Provider Sotero Connell MD Unavailable [phone] Blanco Edwards NP Unavailable [phone] Reason for Visit * Reason Onset Date Comments Faxed Order 07/16/2024 [facility] #[id number] Encounter Details Date Type Department Care Team Description 07/16/2024 Telephone Adult Medicine [address] [address] Ashwin Arzola MD [address] [place] [phone] Faxed Order ([facility]/Order #[id number]) Social History Tobacco Use Types Packs/Day Years [...] * Telephone Encounter - Fartun Somers - 07/16/2024 2:41 PM EDT Received faxed order [id number] from [facility] and placed in provider bin. Please review, sign, andfax to [phone] documented in this encounter Plan of Treatment Not on file documented as of this encounter Visit Diagnoses Not on filedocumented in this encounter Care Teams Kelly Machine Operator Relationship Specialty Start Date End Date Ashwin Arzola MD [address] [place] [address] [phone] PCP - General Internal Medicine 08/01/20 Sotero Connell MD [address] [place] [address] [phone] Specialist Cardiology 07/10/21 Blanco Edwards NP [address] [place] [address] [phone] Specialist Cardiology 08/02/22 documented as of this encounter
--- OUTSIDE RECORDS SUMMARY | 2024-12-15 17:01 | XMS_ITS | Encounter Summary ---
Author Organization [facility] Address [address] [place] [address] Care Team Providers Care Digital Analyst Name Role Phone Ashwin Arzola MD Primary Care Provider [phone] Sotero Connell MD Unavailable [phone] Blanco Edwards NP Unavailable [phone] Encounter Details Date Type Department Care Team Description 11/16/2023 Hospital Medical Records [address] [place] [address] Kerri Wise Social History Tobacco Use Types Packs/Day Years [...] on filedocumented in this encounter Care Teams Digital Analyst Relationship Specialty Start Date End Date Ashwin Arzola MD [address] [place], [place] [phone] PCP - General Internal Medicine 08/01/20 Sotero Connell MD [address] [place] [address] [phone] Specialist Cardiology 07/10/21 Blanco Edwards NP [address] [place] [address] [phone] Specialist Cardiology 08/02/22 documented as of this encounter
--- OUTSIDE RECORDS SUMMARY | 2024-12-15 17:01 | XMS_ITS | Encounter Summary ---
Author Organization [facility] Address [address] [place] [address] Care Team Providers Care Giver Name Role Phone Ashwin Arzola MD Primary Care Provider [phone] Sotero Connell MD Unavailable [phone] Blanco Edwards NP Unavailable [phone] Encounter Details Date Type Department Care Team Description 11/17/2023 Hospital Medical Records [address] [place] [address] Kerri Wise Social History Tobacco Use Types [...] on filedocumented in this encounter Care Teams Giver Relationship Specialty Start Date End Date Ashwin Arzola MD [address] [place], [place] [phone] PCP - General Internal Medicine 08/01/20 Sotero Connell MD [address] [place] [address] [phone] Specialist Cardiology 07/10/21 Blanco Edwards NP [address] [place] [address] [phone] Specialist Cardiology 08/02/22 documented as of this encounter
--- OUTSIDE RECORDS SUMMARY | 2024-12-15 17:01 | XMS_ITS | Encounter Summary ---
Author Organization [facility] Address [address] [place] [address] Care Team Providers Care Cma Name Role Phone Ashwin Arzola MD Primary Care Provider [phone] Sotero Connell MD Unavailable [phone] Blanco Edwards NP Unavailable [phone] Reason for Visit * Reason Onset Date Comments Faxed Order 06/15/2024 [facility] order #[id number] Encounter Details Date Type Department Care Team Description 06/15/2024 Telephone Adult Medicine [address] [address] Ashwin Arzola MD [address] [place] [phone] Faxed Order ([facility] order #[id number]) Social History Tobacco Use Types Packs/Day Years [...] encounter Miscellaneous Notes * Telephone Encounter - Tammy Umaña - 06/15/2024 12:18 PM EDT Received orders from [facility] order #[id number]. Please sign and fax to [phone] documented in this encounter Plan of Treatment Not on file documented as of this encounter Visit Diagnoses Not on filedocumented in this encounter Care Teams Cma Relationship Specialty Start Date End Date Ashwin Arzola MD [address] [place] [address] PCP - General Internal Medicine 08/01/20 Sotero Connell MD [address] [place] [address] Specialist Cardiology 07/10/21 Blanco Edwards NP [address] [place] [address] Specialist Cardiology 08/02/22 documented as of this encounter
--- OUTSIDE RECORDS SUMMARY | 2024-12-15 17:01 | XMS_ITS | Encounter Summary ---
Author Organization [facility] Address [address] [place] [address] Care Team Providers Care Secure Software Assessor Name Role Phone Ashwin Arzola MD Primary Care Provider Sotero Connell MD Unavailable [phone] Blanco Edwards NP Unavailable [phone] Reason for Referral * Non MIKE (Routine) - Closed Specialty Diagnoses / Procedures Referred By Contac t Referred To Contact Podiatry / Orthopedic Procedures REFERRAL TO PODIATRY (IN NETWORK) Ashwin Arzola MD [address] [place] [address] Linus Luna DPM [address] [address] Referral ID Status Reason Start Date Expiration Date Visits Re quested Visits Authorized [id number] Closed 09/17/2021 1 1 Reason for Visit * Reason Onset Date Comments Bar Pointer Feedback 09/17/2021 Podiatry Encounter Details Date Type Department Care Team Description 09/17/2021 Telephone Adult Medicine [address] [address] Ashwin Arzola MD [address] [place] [address] Bar Pointer Feedback (Podiatry) Social History Tobacco Use Types Packs/Day Years [...] have Coronavirus / COVID-19? No / Unsure 09/17/2021 9:24 AM EST documented as of this encounter Miscellaneous Notes * Telephone Encounter - Gege Beckett - 09/17/2021 12:00 PM EST Please review this patients new referral request. The referral has been pended. Please complete thefollowing: If approved> sign order If denied>please give instructions and route to your practice nursing pool. Practice nurse should inform referrals and the patient if denied. * Telephone Encounter - Hector Lord - 09/17/2021 11:00 AM EST What insurance does the patient have today? Payor: PEER / Plan: THREAT STREAM $0 [facility] [id number] / Product Type: HMO [id number] Effective 07/13/09: BCBS will not retro referral requests over 90 days. If request is for this please instruct patient to call the 800# on their insurance card to appeal. Do not submit a request. Referrals cannot be processed if the insurance is not accurate. If the insurance listed above in red is NO BILLING INFORMATION FOUND FOR THIS ENCOUTNER The patients correct insurance must be obtained and registered in [facility] or their referral can not be processed. Is this a retro request? NO. If yes for what date of service do you need the retro referral? N/A Who is calling to request this referral? The patient If the caller is not the patient, what is their name? N/A Ask the patient WHO referred them to this specialty: Patient self referred, the patient saw Michaela Jama today but Michaela did not put in a referral for this at the time of the visit. FIRST and LAST NAME of SPECIALIST PATIENT is seeing: (the patient doesn't have an appointment scheduled) What specialty is this? Podiatry DIAGNOSIS Patient is being seen for (Not a body part or a procedure): Fungal infection under toenails and history of diabetes Have you seen this SPECIALIST for this PROBLEM/DX before?NO If YES, when: Have you checked REVIEW or the APPT DESK to see if this referral has already been done or has visits left? YES Is this visit:Initial Visit Address of Specialist: (the patient doesn't have an appointment scheduled) Phone # of Specialist: (the patient doesn't have an appointment scheduled) Fax #: (if applicable): (the patient doesn't have an appointment scheduled) Does patient have an appointment scheduled?: NO Date of appointment- (including a retro-request): (the patient doesn't have an appointment scheduled) Is this appointment related to: Not MVA, WC or Surgery related documented in this encounter Plan of Treatment Not on file documented as of this encounter Visit Diagnoses Not on filedocumented in this encounter Care Teams Secure Software Assessor Relationship Specialty Start Date End Date Ashwin Arzola MD [address] [place] [address] PCP - General Internal Medicine 08/01/20 Sotero Connell MD [address] [place] [address] Specialist Cardiology 07/10/21 Blanco Edwards NP [address] [place] [address] Specialist Cardiology 08/02/22 documented as of this encounter
--- OUTSIDE RECORDS SUMMARY | 2024-12-15 17:01 | XMS_ITS | Encounter Summary ---
Author Organization [facility] Address [address] [place] [address] Care Team Providers Care Wheel Borer Name Role Phone Name, Braulio CHIANG Primary Care Provider Unavailabl Dudley Mancuso MD Primary Care Provider Unavail able Ajit Montanez MD Primary Care Provide r Unavailable Sujey Browning MD Primary Care Provider Un available Dudley Brown MD Primary Care Provider Unavail able Nancy Vines DO Primary Care Pro vider Unavailable Ashwin Arzola MD Primary Care Provider [phone] Sujey Browning MD Primary Care Provider Un available Sotero Connell MD Unavailable [phone] Blanco Edwards NP Unavailable [phone] Encounter Details Date Type Department Care Team Description 05/29/2015 Release of Information Medical Records [address] [place] [address] Abstract, Provider Social History Tobacco Use Types [...] on filedocumented in this encounter Care Teams Wheel Borer Relationship Specialty Start Date End Date Name, [...] Medicine 04/13/20 07/31/20 Ashwin Arzola MD [address] [place] [address] [phone] PCP - General Internal Medicine 08/01/20 Sujey Browning MD PCP - General 07/03/15 11/12/15 Sotero Connell MD [address] [place] [address] [phone] Specialist Cardiology 07/10/21 Blanco Edwards NP [address] [place] [address] Specialist Cardiology 08/02/22 documented as of this encounter
[2024-12-15 18:19] VITALS: BP 144/76; PULSE 68; RESP 13; TEMP 36.8; O2SAT 97
[2024-12-15] MEDS: Potassium Chloride/H20 10 MEQ/100 ML PIGGYBACK 75 MEQ IV (18:32)
[2024-12-15 20:31] VITALS: BP 164/71; PULSE 80; RESP 18; TEMP 36.6; O2SAT 94
--- NOTE | 2024-12-15 20:39 | PC.NURSE ---
Pt a&o, on sign of distress, pt sleeping, requested crackers and drink
--- NOTE | 2024-12-15 20:41 | PC.NURSE ---
Reviewed discharge instructions with pt. pt verbalized understanding, no sign of distress upon discharge.
[2024-12-15 20:48] VITALS: BP 164/71; PULSE 80; RESP 18; TEMP 36.6; O2SAT 94
== END 2024-12-15 20:49 | disposition home or self-care (01) ==
PROVIDERS: Physician Assistant Medical; Emergency Provider Emergency Medicine; PCP Internal Medicine
DX: F41.9 Anxiety disorder, unspecified (principal); R79.89 Other specified abnormal findings of blood chemistry; E87.6 Hypokalemia; J44.9 Chronic obstructive pulmonary disease, unspecified; I10 Essential (primary) hypertension; E11.9 Type 2 diabetes mellitus without complications; I25.2 Old myocardial infarction; Z79.4 Long term (current) use of insulin
CPT/HCPCS: 36415; 80053; 83690; 83735; 84484; 85025; 85610; 93005; 96365; 96366; 99284; 99285; J3480

== ENCOUNTER → 2024-12-15 15:06 | Outpatient (BNV) | payer OTHER, SELFPAY | PROVIDERS: Emergency Provider Emergency Medicine; PCP Internal Medicine; Visit Provider Internal Medicine Cardiovascular Disease | DX: R07.9 Chest pain, unspecified (principal) | CPT/HCPCS: 93010 ==

== ENCOUNTER 2024-12-23 10:29 | Inpatient (IN) | payer OTHER, SELFPAY ==
--- NOTE | 2024-12-23 | ECG_ITS ---
Test Reason : WEAKNESS Blood Pressure : */* mmHG Vent. Rate : 91 BPM Atrial Rate : 91 BPM P-R Int : 212 ms QRS Dur : 78 ms QT Int : 358 ms P-R-T Axes : 56 3 29 degrees QTcB Int : 440 ms Sinus rhythm with 1st degree A-V block Otherwise normal ECG When compared with ECG of 15-Dec-2024 15:14, No significant change was found Referred By: Generic ED Physician Electronically Signed By: GINGER MARLEY
--- NOTE | ~2024-12-23 | CT_ITS ---
EXAMINATION: CT CERVICAL SPINE WITHOUT CONTRAST CLINICAL INFORMATION: AMS, fall, neck pain. COMPARISON: Numerous priors, most recently 07/26/2024. TECHNIQUE: Spiral CT imaging of the cervical spine performed in axial plane without contrast. Multiplanar reformatted images were constructed from the axial data set. This CT examination was performed using dose optimization techniques as appropriate, variously including the following: *Automated exposure control *Adjustment of mA and/or kV according to patient size (this includes techniques or standardized protocols for targeted exams where dose is matched to indication/reason for exam; i.e. extremities or head) *Use of iterative reconstruction technique FINDINGS: Mild motion degradation is present, obscuring fine bony detail. This limits the sensitivity of the scan. CORONAL ALIGNMENT: -There is a mild to moderate right convex scoliosis. SAGITTAL ALIGNMENT: -There is straightening of the normal lordosis. -There is a stable 2 mm degenerative anterolisthesis of C3 on C4. -There is a stable 3 mm degenerative type anterolisthesis C4 on C5 and C5 on C6. C1-C2 AND CRANIOCERVICAL JUNCTION: -Intact and normally aligned. There are mild to moderate atlantoaxial degenerative changes. VERTEBRAL BODIES AND FACETS: -There is no fracture, evidence of traumatic subluxation, compression deformity, or suspicious bone lesion. There is normal facet alignment. There are moderate to severe left greater than right multilevel hypertrophic degenerative facet changes. DISCS: -Severe disc space degeneration is present C5-6 and C6-7. There is sclerosis of the endplates with osteophytic spurring at these levels. -There is mild to moderate degeneration at C4-5. -There is otherwise only mild degeneration present. CENTRAL CANAL: -No evidence of high-grade central canal narrowing or large disc herniation allowing for modality limitations. PREVERTEBRAL AND PARAVERTEBRAL SOFT TISSUES: -No prevertebral or paravertebral soft tissue swelling. -Moderate bilateral carotid bulb calcification. -Normal thyroid gland. LUNG APICES: -Mild mosaic attenuation consistent with hypoventilatory changes. Otherwise clear. CT/CT cervical spine wo IV con IMPRESSION: 1. No CT evidence of acute cervical spine fracture or injury. 2. Stable moderate to severe degenerative spondylosis, most significant C5-6 and C6-7. Electronically signed by: Gt Blum MD 12/23/2024 02:43 PM EDT
--- NOTE | ~2024-12-23 | XR_ITS ---
EXAMINATION: XR ELBOW 3 VIEWS RIGHT, XR HUMERUS RIGHT HISTORY: fall COMPARISON: There are no prior studies available for comparison. FINDINGS: Three views of the right elbow and AP and lateral views of the right forearm are submitted. Osseous mineralization is normal. There is no fracture or dislocation. The joint spaces are preserved. The soft tissues are unremarkable. XR/XR elbow RT min 3V IMPRESSION: No evidence of fracture of the right elbow or humerus. Electronically signed by: Jerry Steele MD 12/23/2024 01:47 PM EDT
--- NOTE | ~2024-12-23 | XR_ITS ---
EXAMINATION: XR CHEST CLINICAL INFORMATION: AMS, vomit all over body COMPARISON: 10/26/2024, 08/31/2024. TECHNIQUE: Frontal view of the chest was obtained. FINDINGS: There is mild leftward rotation. There is moderate cardiac enlargement. Mediastinal and hilar contours appear normal. Aortic mural calcification. The lungs demonstrate mild blunting of the left costophrenic angle, presumably secondary to rotation and overlying soft tissues and heart. Lungs otherwise appear clear. No pneumothorax or pleural effusion. No focal osseous or soft tissue abnormality. Degenerative changes of the spine and right shoulder joint. XR/XR chest 1V IMPRESSION: 1. Somewhat limited exam due to mild rotation. 2. Cardiomegaly. 3. No definite active lung disease. Electronically signed by: Gt Blum MD 12/23/2024 11:30 AM EDT
--- NOTE | ~2024-12-23 | XR_ITS ---
EXAMINATION: XR HAND AND WRIST COMPLETE RIGHT, XR FOREARM 2 VIEWS RIGHT HISTORY: fall. ams COMPARISON: There are no prior studies available for comparison. FINDINGS: Three views of the right hand and wrist, and AP and lateral views of the right forearm are submitted. The bones are osteopenic. There is no fracture or dislocation. The joint spaces are preserved. There are vascular calcifications. XR/XR hand wrist RT IMPRESSION: Osteopenia. No evidence of fracture of the right hand, wrist, or forearm. Electronically signed by: Jerry Steele MD 12/23/2024 01:46 PM EDT
--- NOTE | ~2024-12-23 | CT_ITS ---
EXAMINATION: CT HEAD WITHOUT CONTRAST CLINICAL INFORMATION: Altered mental status, fall, nausea and vomiting. COMPARISON: Several priors, most recently 07/26/2024. TECHNIQUE: Contiguous axial imaging was performed from the skull base to vertex without intravenous administration of contrast. This CT examination was performed using dose optimization techniques as appropriate, variously including the following: *Automated exposure control *Adjustment of mA and/or kV according to patient size (this includes techniques or standardized protocols for targeted exams where dose is matched to indication/reason for exam; i.e. extremities or head) *Use of iterative reconstruction technique FINDINGS: There is no evidence of intracranial hemorrhage or extra-axial fluid collection. There is no mass effect, or edema. No CT evidence of acute territorial infarct. Ventricles, sulci, and cisterns are normal in size and configuration for patient age. No hydrocephalus. No midline shift. Negative hyperdense MCA sign. Negative insular ribbon sign. Patchy periventricular and deep white matter hypoattenuation is consistent with mild small vessel ischemic changes. Empty sella. Mild atheromatous calcification of the bilateral carotid siphons and V4 segments vertebral arteries bilaterally. Globes and orbital contents image normally. There are bilateral lens replacements. No extracranial soft tissue abnormalities. The paranasal sinuses, mastoid air cells, and tympanic cavities are normally aerated. No suspicious bony abnormalities. There are no acute fractures evident. Moderate right greater than left degenerative TM joint changes. CT/CT head/brain wo IV con IMPRESSION: No acute intracranial abnormality. No fractures. Electronically signed by: Gt Blum MD 12/23/2024 02:36 PM EDT
--- NOTE | ~2024-12-23 | XR_ITS ---
EXAMINATION: XR HAND AND WRIST COMPLETE LEFT HISTORY: pain/swelling COMPARISON: There are no prior studies available for comparison. FINDINGS: Three views of the left wrist and hand are submitted. The examination is somewhat limited by difficulty in patient positioning. The bones are osteopenic. A corticated osseous densities again noted at the ulnar aspect of the distal radius without change which may represent prior trauma. There is no acute fracture or dislocation. The joint spaces are preserved. There are vascular calcifications. XR/XR hand wrist LT IMPRESSION: Osteopenia. No evidence of acute fracture of the left hand or wrist. Electronically signed by: Jerry Steele MD 12/23/2024 01:44 PM EDT
--- NOTE | ~2024-12-23 | CT_ITS ---
EXAMINATION: CT ABDOMEN PELVIS WITH IV CONTRAST HISTORY: N/V, AMS. black emesis COMPARISON: There are no prior studies for comparison. TECHNIQUE: CT scan of the abdomen and pelvis was performed following administration of 85 mL Omnipaque 350 using standard departmental protocol. Coronal and sagittal reformatted images were generated and reviewed. Oral contrast material was not administered at the request of the referring physician. This CT exam was performed with one or more of the following dose reduction techniques: automated exposure control, adjustment of the mA and/or kV according to patient size, use of iterative reconstruction technique. DLP: 8 6 6. 0.9 mGy-cm FINDINGS: LOWER CHEST: There is subsegmental atelectasis versus scarring at the left lung base. The visualized right lung base is clear. There is no pleural effusion. CARDIOVASCULATURE: The heart is normal in size. There is no pericardial effusion. LIVER: The liver is normal in size and contour. No liver mass is identified. The hepatic and portal veins are patent. GALLBLADDER / BILE DUCTS: The gallbladder is surgically absent. There is no intra or extrahepatic biliary ductal dilatation. SPLEEN: The spleen is normal in size. No focal splenic lesion is identified. PANCREAS: The pancreas is unremarkable in appearance. ADRENAL GLANDS: Within normal limits. KIDNEYS/RETROPERITONEUM: No renal calculi are identified. There is no hydronephrosis. There is a 2.5 cm cyst in the interpolar region of the left kidney. LYMPH NODES: No abdominal or pelvic lymphadenopathy. VASCULATURE: The abdominal aorta demonstrates atherosclerotic calcification, but is normal in caliber. MESENTERY/PERITONEUM: No free fluid. No masses. There is no free intraperitoneal gas. STOMACH: The stomach is collapsed, limiting evaluation. SMALL BOWEL: The small bowel is normal in caliber. COLON: There is a large amount of stool throughout the colon. APPENDIX: Normal. URINARY BLADDER/PELVIC ORGANS: The urinary bladder is unremarkable. The patient is status post hysterectomy. BONES / SOFT TISSUES: There is degenerative disc disease of the spine. CT/CT abdomen pelvis w IV con IMPRESSION: Large amount of stool throughout the colon. Electronically signed by: Jerry Steele MD 12/23/2024 02:39 PM EDT
--- NOTE | ~2024-12-23 | XR_ITS ---
EXAMINATION: XR HAND AND WRIST COMPLETE RIGHT, XR FOREARM 2 VIEWS RIGHT HISTORY: fall. ams COMPARISON: There are no prior studies available for comparison. FINDINGS: Three views of the right hand and wrist, and AP and lateral views of the right forearm are submitted. The bones are osteopenic. There is no fracture or dislocation. The joint spaces are preserved. There are vascular calcifications. XR/XR forearm RT 2V IMPRESSION: Osteopenia. No evidence of fracture of the right hand, wrist, or forearm. Electronically signed by: Jerry Steele MD 12/23/2024 01:46 PM EDT
--- NOTE | ~2024-12-23 | XR_ITS ---
EXAMINATION: XR ELBOW 3 VIEWS RIGHT, XR HUMERUS RIGHT HISTORY: fall COMPARISON: There are no prior studies available for comparison. FINDINGS: Three views of the right elbow and AP and lateral views of the right forearm are submitted. Osseous mineralization is normal. There is no fracture or dislocation. The joint spaces are preserved. The soft tissues are unremarkable. XR/XR humerus RT IMPRESSION: No evidence of fracture of the right elbow or humerus. Electronically signed by: Jrery Steele MD 12/23/2024 01:47 PM EDT
[2024-12-23 11:00] LABS: Glucose, Whole Blood 117 mg/dL (60-115)
[2024-12-23 11:06] LABS: MANUAL DIFF FLAG NO; Venous Blood Gas Refer to POC result
[2024-12-23 11:08] LABS: Basophils Percent Auto 0.3 % (0-2); Hematocrit 34.8 % (37.0-47.0); Hemoglobin 10.7 g/dl (12.0-16.0); Imm Gran Abs Auto 0.03 X10*3/uL (0.00-0.03); Imm Gran Pct Auto 0.3 % (0.0-0.4); Lymphocytes Absolute Auto 0.9 X10*3/uL (1.2-4.9); Lymphocytes Percent Auto 9.2 % (20-40); Mean Corpuscular HGB Conc 30.7 g/dl (31.0-35.0); Mean Corpuscular Hemoglobin 24.7 pg (27.0-33.0); Mean Corpuscular Volume 80.4 fL (80.0-98.0); Mean Platelet Volume 10.5 fL (9.4-12.3); Monocytes Absolute Auto 0.5 X10*3/uL (0.1-1.2); Monocytes Percent Auto 4.7 % (2-11); Neutrophils Absolute Auto 8.5 x10*3/uL (2.0-8.3); Neutrophils Percent Auto 85.5 % (45-73); Platelet Count 223 X10*3/uL (160-400); Red Blood Count 4.33 X10*6/uL (4.20-5.50); Red Cell Distribution Width 17.2 % (11.0-16.0)
[2024-12-23 11:13] LABS: VBG Base Excess 2.4 mmol/L; VBG HCO3 29 mmol/L (22-26); VBG pCO2 52 mmHg; VBG pH 7.34 (7.32-7.43); VBG pO2 38 mmHg
[2024-12-23 11:15] VITALS: BP 102/36; BP 125/97; PULSE 86; PULSE 96; RESP 20; TEMP 35.5; O2SAT 92; O2SAT 98; BMI 30.5
[2024-12-23 11:17] LABS: Prothrombin Time 11.3 SEC (10.9-12.4)
[2024-12-23 11:22] LABS: Lactic Acid 1.9 mmol/L (0.5-2.0)
[2024-12-23 11:23] LABS: Alanine Aminotransferase 18 U/L (0-31); Albumin Level 3.9 g/dL (3.5-5.0); Alkaline Phosphatase 89 U/L (39-117); Anion Gap 11 (12-20); Aspartate Amino Transferase 40 U/L (5-31); Bilirubin Total 0.2 mg/dL (0.0-1.0); Blood Urea Nitrogen 16 mg/dL (9-16); Calcium 8.9 mg/dL (8.4-10.2); Carbon Dioxide 26 mmol/L (22-29); Chloride 106 mmol/L (96-108); Estimated Glomerular Filt Rate > 60; Glucose Random 119 mg/dL (60-115); Magnesium 1.6 mg/dL (1.6-2.6); Potassium 3.9 mmol/L (3.3-5.1); Sodium 139 mmol/L (135-145); Total Protein 7.8 g/dL (6.5-8.0)
[2024-12-23 11:27] LABS: Troponin-I High Sensitivity 36.7 ng/L (<3.5-17.0)
[2024-12-23 11:37] LABS: Ammonia 26 umol/L (13-55)
[2024-12-23 12:59] LABS: Lipase 15 U/L (8-78)
[2024-12-23] MEDS: 0.9 % Sodium Chloride 1,000 ML 999 ML IV (13:50)
[2024-12-23 13:52] VITALS: BP 149/67; PULSE 91; RESP 12; O2SAT 95
[2024-12-23 14:00] LABS: OBS Int Ctl Valid YES; OBS1 NEGATIVE (NEGATIVE)
[2024-12-23 14:01] LABS: Appearance Urine Clear; Color Urine Yellow; Glucose Urine UA Negative (Negative); Leukocyte Esterase Urine Trace (Negative); Nitrite Urine Negative (Negative); PH 5.5 (5.0-9.0); Specific Gravity - Urine 1.015 (1.005-1.025); UMIC TRIGGER UACC YES; Urine Blood Negative (Negative); Urine Ketones Negative (Negative); Urine Protein Negative (Neg-Trace)
[2024-12-23 14:04] LABS: Bacteria Urine None Seen (None Seen); Hyaline Casts Urine 0-2 /LPF (0-2); RBC Urine 0-2 /HPF (0-2); WBC Urine 0-5 /HPF (0-5)
[2024-12-23] MEDS: iohexoL 350 MG/ML 100 ML INFUS..BTL IV (14:17)
--- NOTE | 2024-12-23 14:36 | ED_ITS ---
HPI - Altered Mental Status General Chief Complaint: Altered Mental Status Stated Complaint: ON FLOOR/TIME UNK,CONFUSED,BROWN VOMIT PER EMS Time Seen by Provider: 12/23/24 12:01 Source: patient, family, EMS, RN notes reviewed and old records reviewed Mode of arrival: EMS History of Present Illness ED Provider: Eleanor Ahn PA-C HPI narrative: 69-year-old [place] Islander-speaking female with a past medical history diabetes, CVA, HLD, JOSÉ, HTN, COPD, presenting to the ED via EMS s/p being found on bathroom floor around 0930AM, altered, lethargic, and covered in dark vomit by CAPACITY MANAGER. Patient was last seen at 1700 yesterday. Patient reports fall when attempting to use the bathroom, unknown head trauma or LOC. poor historian. Unknown how long patient was on floor. Reports acute on chronic RUE & left hand pain. Patient was recently discharged from our facility on 10/27/24 due to COPD/asthma exacerbation. Remaining history limited due to patient's acute mental status Related Data Home Medications ?Medication ?Instructions ?Recorded ?Confirmed blood sugar diagnostic (OneTouch #10 ea 09/27/22 10/20/23 Ultra Test strips) lancets 33 gauge (OneTouch Delica #100 ea 09/27/22 10/20/23 Plus Lancet) [id number]-[id number] 1 tab PO Q6H PRN Headache 10/17/23 10/26/24 50 mg-325 mg-40 mg tablet docusate sodium 100 mg capsule 100 mg PO BID 11/16/23 10/26/24 sennosides 8.6 mg tablet (senna) 8.6 mg PO DAILY 11/16/23 10/26/24 amitriptyline 150 mg tablet 150 mg PO BEDTIME 04/11/24 10/26/24 amitriptyline 50 mg tablet 50 mg PO BEDTIME 04/11/24 10/26/24 duloxetine 20 mg capsule,delayed 20 mg PO DAILY 04/11/24 10/26/24 release gabapentin 300 mg capsule 300 mg PO TID 04/11/24 10/26/24 insulin glargine 100 unit/mL 65 unit subcut BEDTIME 04/11/24 10/26/24 subcutaneous solution (Lantus U-100 Insulin) clotrimazole 1 % topical cream 1 appl topical BID 10/26/24 10/26/24 fluticasone fur. 100 mcg-umeclid 1 ea inhalation DAILY 10/26/24 10/26/24 62.5 mcg-vilant 25 mcg inhalat.powder (Trelegy Ellipta) metoclopramide HCl 10 mg tablet 10 mg PO QID 10/26/24 10/26/24 tramadol 50 mg tablet 50 mg PO Q8H PRN Pain 10/26/24 10/26/24 clonazepam 0.5 mg tablet 0.5 mg PO TID PRN Pain 12/23/24 12/23/24 metformin 500 mg tablet,extended 500 mg PO DAILY 12/23/24 release 24 hr potassium chloride 20 mEq 20 meq PO DAILY 12/23/24 tablet,extended release(part/cryst) Previous Rx's ?Medication ?Instructions ?Recorded atorvastatin 80 mg tablet 80 mg PO BEDTIME #0 tabs 10/29/23 loratadine 10 mg tablet 10 mg PO DAILY #0 tabs 10/29/23 metoprolol succinate 25 mg 25 mg PO DAILY #0 tabs 10/29/23 tablet,extended release 24 hr montelukast 10 mg tablet 10 mg PO BEDTIME #30 tabs 10/29/23 Allergies Allergy/AdvReac Type Severity Reaction Status Date / Time Penicillins Allergy Mild Swelling Verified 12/23/24 11:31 Review of Systems 2 Review of Systems: Yes all other systems are reviewed and are negative Constitutional: Constitutional: Reports as per HPI Neurologic: Denies Abnormal speech present [facility] Past Medical History Attestation statement: The following information was validated with the patient. Source: old records reviewed Medical History Seizure disorder JOSÉ (obstructive sleep apnea) Delusions Major neurocognitive disorder Chest pain Dyspnea on exertion COVID-19 GERD (gastroesophageal reflux disease) DJD (degenerative joint disease) COPD (chronic obstructive pulmonary disease) Bipolar disorder CTS (carpal tunnel syndrome) Hx of rheumatoid arthritis Diabetic neuropathy Urinary incontinence Aneurysm of middle cerebral artery Pulmonary nodules CHF (congestive heart failure) Palpitations Migraine History of COVID-19 Mild aortic stenosis Asthma Insulin dependent type 2 diabetes mellitus Mixed hyperlipidemia Mood disorder Essential hypertension Surgical History No pertinent past surgical history Hx of cataract surgery H/O: hysterectomy Hx of cholecystectomy History of carpal tunnel release Family History Family History Mother Myocardial infarction Father Myocardial infarction Sister Breast cancer Brother Spleen cancer Social History Social History Household Members: None Housing: House Do you presently have visiting nurse or other home services: Yes Unable to assess alcohol history related to: Unable to respond Alcohol intake: never Comment: report given by Cleo rn Patient Tobacco Use Status: Never used Tobacco Tobacco use type: Cigarette Cigarette Packs Per Day: 0.2 Cigarettes Per Day: 4.0 Years Smoked: [id number] e-Cigarette/Vaping Use: Never Used Second Hand Smoke Exposure: No Use of substances other than those prescribed or required for medical reasons: Unable to respond Advance Directives: Yes Advance Directives on File: Yes Advance Directives Date on File: 11/20/23 service: No Current occupational status: retired Sexual orientation: Straight/Heterosexual Physical Exam ED Vital Signs: Vital Signs - 24 hr 12/23/24 11:15 12/23/24 13:52 Temperature 96 F L Pulse Rate 96 91 Respiratory Rate 20 12 Blood Pressure 102/36 L 149/67 H Pulse Oximetry 92 95 Oxygen Delivery Method Room Air Room Air BMI result Body Mass Index 30.5 Const Other: awake to sternal rubs/verbal stimuli General: lethargic Orientation/consciousness: oriented to person, oriented to place, oriented to time and lethargic HENMT Head: Yes normal to inspection and Yes atraumatic Ears: hearing grossly normal bilaterally General nose exam: Normal external nose present Face and sinus: Yes normal facial exam Mouth: Normal oral and palatal mucosa present Throat: Yes posterior oropharynx normal Eyes General: appearance normal, both eyes and all related structures Pupils: Equal, round and reactive pupils present EOM: EOMs intact bilaterally Neck Neck: Yes normal visual inspection and Yes no meningeal signs Resp Effort & Inspection: normal respiratory effort and no respiratory distress Auscultation: clear to auscultation bilaterally and no wheezes Cardio Rate: regular rate Heart sounds: S1 normal heart sound present and S2 normal heart sound present GI Other: no fecal impaction noted on rectal exam Inspection: Yes normal to inspection Palpation (GI): Soft to palpation, nontender, no guarding and not rigid Back/Spine/Pelvis Other: No midline cervical/thoracic/lumbar spinous tenderness/step-off or deformity Skin Rashes: no rashes Wounds: no wounds Neuro General: oriented to person, oriented to place, oriented to time, tone normal, moves all extremities, no meningeal signs, no focal motor deficits and CN's II- XI intact bilaterally Cranial nerves: Yes CN's II-XII intact bilaterally, Yes Equal, round and reactive pupils present and Yes Bilaterally intact EOM present Speech: No Abnormal speech present Motor exam (neuro): 5/5 motor strength present throughout Extrem Other: left hand with appreciable swelling and contracture > chronic per family. Tender to palpation. Neurovascularly intact RLE with swelling, healing ecchymosis, and diffuse tenderness to humerus, elbow, forearm, and wrist/hand. NV intact. Course Course Course Narrative: -1546-- no leukocytosis. H&H at patient's baseline. - CPK elevated to 844. Initial troponin 36 > will obtain 3 hour repeat. Labs otherwise reassuring - UA negative. Occult stool negative - tox screen positive for barbiturates CT head/brain wo IV con IMPRESSION: No acute intracranial abnormality. No fractures. CT cervical spine wo IV con IMPRESSION: 1. No CT evidence of acute cervical spine fracture or injury. 2. Stable moderate to severe degenerative spondylosis, most significant C5-6 and C6-7. CT abdomen pelvis w IV con IMPRESSION: Large amount of stool throughout the colon. XR chest 1V IMPRESSION: 1. Somewhat limited exam due to mild rotation. 2. Cardiomegaly. 3. No definite active lung disease. XR humerus RT IMPRESSION: No evidence of fracture of the right elbow or humerus. XR elbow RT min 3V IMPRESSION: No evidence of fracture of the right elbow or humerus. XR forearm RT 2V IMPRESSION: Osteopenia. No evidence of fracture of the right hand, wrist, or forearm. XR hand wrist RT IMPRESSION: Osteopenia. No evidence of fracture of the right hand, wrist, or forearm. XR hand wrist LT IMPRESSION: Osteopenia. No evidence of acute fracture of the left hand or wrist. > plan to admit for further management Medications Administered Discontinued Medications Generic Name Dose Route Start Last Admin Trade Name Freq PRN Reason Stop Dose Admin Sodium Chloride 1,000 mls @ 999 mls/hr 12/23/24 12:45 12/23/24 15:10 Ns IV 12/23/24 13:45 Infused .Q1H1M ISIAH Infusion Sodium Chloride 500 mls @ 999 mls/hr 12/23/24 14:45 12/23/24 15:58 Ns IV 12/23/24 15:15 Infused .Q31M ISIAH Infusion Iohexol 100 ml 12/23/24 14:17 12/23/24 14:17 Iohexol 350 Mg/Ml 100 Ml Infus..Btl IV 12/23/24 14:18 85 ml ONCE ONE Administration Medical Decision Making Medical Decision Making MDM Narrative: 69-year-old [place]er-speaking female with a past medical history diabetes, CVA, HLD, JOSÉ, HTN, COPD, presenting to the ED via EMS s/p being found on bathroom floor around 0930AM, altered, lethargic, and covered in dark vomit by CAPACITY MANAGER. On exam vital signs stable, lethargic, alert to tactile and verbal stimuli, no midline spinous tenderness, no focal neuro deficits, abdomen soft/nontender. Concern for ICH vs CVA vs GI bleed vs metabolic/infectious etiologies and encephalopathy. Rule out ACS. Low suspicion for severe sepsis at this time. Rule out fracture. No evidence of septic joint plan: EKG, labs, UA, CXR, head /C-spine CT, CT AP, occult stool, anticipated admission Please refer to course for remaining clinical decision making, interpretation of labs/imaging results, and discussions with consultants and/or family members. Differential Diagnosis Differential Diagnoses: The differential diagnosis associated with the presentation includes As above Admission/Observation Consideration of admission/observation: Escalation of care including admission/observation considered Consult Healthcare Provider Management of the patient was discussed with: Hospitalist Lab Data [facility] Lab Attestation statement: I reviewed the patient's lab results. 12/23/24 10:56 12/23/24 10:56 Labs: Lab Results 12/23/24 12/23/24 12/23/24 Range/Units 10:42 10:56 11:06 WBC 10.0 (4.8-10.8) X10*3/uL RBC 4.33 (4.20-5.50) X10*6/uL Hgb 10.7 L (12.0-16.0) g/dl Hct 34.8 L (37.0-47.0) % MCV 80.4 (80.0-98.0) fL MCH 24.7 L (27.0-33.0) pg MCHC 30.7 L (31.0-35.0) g/dl RDW 17.2 H (11.0-16.0) % Plt Count 223 (160-400) X10*3/uL MPV 10.5 (9.4-12.3) fL Immature Gran % (Auto) 0.3 (0.0-0.4) % Neut % (Auto) 85.5 H (45-73) % Lymph % (Auto) 9.2 L (20-40) % [place] % (Auto) 4.7 (2-11) % Eos % (Auto) 0.0 (0-4) % Baso % (Auto) 0.3 (0-2) % Lymph # (Auto) 0.9 L (1.2-4.9) X10*3/uL [place] # (Auto) 0.5 (0.1-1.2) X10*3/uL Eos # (Auto) 0.0 (0.0-0.4) X10*3/uL Baso # (Auto) 0.0 (0.0-0.2) X10*3/uL Abs Immat Gran (auto) 0.03 (0.00-0.03) X10*3/uL Absolute Neuts (auto) 8.5 H (2.0-8.3) x10*3/uL Absolute Nucleated RBC 0.000 (0.0-0.012) X10*3/uL Nucleated RBC % (auto) 0.0 (0.0-0.2) /100WBC PT 11.3 (10.9-12.4) SEC INR 1.0 (0.9-1.1) VBG pH 7.34 (7.32-7.43) VBG pCO2 52 mmHg VBG pO2 38 mmHg VBG HCO3 29 H (22-26) mmol/L VBG O2 Saturation 53.0 % VBG Base Excess 2.4 mmol/L Sodium 139 (135-145) mmol/L Potassium 3.9 D (3.3-5.1) mmol/L Chloride 106 (96-108) mmol/L Carbon Dioxide 26 (22-29) mmol/L Anion Gap 11 L (12-20) BUN 16 (9-16) mg/dL Creatinine 0.60 (0.5-1.4) mg/dL Estim Creat Clear Calc TNP Estimated GFR > 60 POC Glucose 117 H (60-115) mg/dL Random Glucose 119 H (60-115) mg/dL Lactic Acid 1.9 (0.5-2.0) mmol/L Calcium 8.9 (8.4-10.2) mg/dL Magnesium 1.6 (1.6-2.6) mg/dL Total Bilirubin 0.2 (0.0-1.0) mg/dL AST 40 H (5-31) U/L ALT 18 (0-31) U/L Alkaline Phosphatase 89 (39-117) U/L Ammonia 26 (13-55) umol/L Total Creatine Kinase 844 H (26-140) U/L Troponin I High Sens 36.7 H (<3.5-17.0) ng/L Total Protein 7.8 (6.5-8.0) g/dL Albumin 3.9 (3.5-5.0) g/dL Lipase 15 (8-78) U/L Urine Color Urine Appearance Urine pH (5.0-9.0) Ur Specific [place] (1.005-1.025) Urine Protein (Neg-Trace) mg/dL Urine Glucose (UA) (Negative) mg/dL Urine Ketones (Negative) mg/dL Urine Blood (Negative) Urine Nitrite (Negative) Ur Leukocyte Esterase (Negative) Urine RBC (0-2) /HPF Urine WBC (0-5) /HPF Ur Squamous Epith Cells (0-2) /HPF Urine Bacteria (None Seen) Hyaline Casts (0-2) /LPF Stool Occult Blood (NEGATIVE) Urine Opiates Screen (Not Detect) Ur Buprenorphine Scrn (Not Detect) ng/mL Ur Oxycodone Screen (Not Detect) ng/mL Urine Methadone Screen (Not Detect) ng/mL Urine Fentanyl Screen (Not Detect) Ur Barbiturates Screen (Not Detect) Ur Phencyclidine Scrn (Not Detect) Ur Amphetamines Screen (Not Detect) U Benzodiazepines Scrn (Not Detect) Urine Cocaine Screen (Not Detect) U Marijuana (THC) Screen (Not Detect) 03/13/25 03/13/25 Range/Units 13:52 16:01 WBC (4.8-10.8) X10*3/uL RBC (4.20-5.50) X10*6/uL Hgb (12.0-16.0) g/dl Hct (37.0-47.0) % MCV (80.0-98.0) fL MCH (27.0-33.0) pg MCHC (31.0-35.0) g/dl RDW (11.0-16.0) % Plt Count (160-400) X10*3/uL MPV (9.4-12.3) fL Immature Gran % (Auto) (0.0-0.4) % Neut % (Auto) (45-73) % Lymph % (Auto) (20-40) % [place] % (Auto) (2-11) % Eos % (Auto) (0-4) % Baso % (Auto) (0-2) % Lymph # (Auto) (1.2-4.9) X10*3/uL [place] # (Auto) (0.1-1.2) X10*3/uL Eos # (Auto) (0.0-0.4) X10*3/uL Baso # (Auto) (0.0-0.2) X10*3/uL Abs Immat Gran (auto) (0.00-0.03) X10*3/uL Absolute Neuts (auto) (2.0-8.3) x10*3/uL Absolute Nucleated RBC (0.0-0.012) X10*3/uL Nucleated RBC % (auto) (0.0-0.2) /100WBC PT (10.9-12.4) SEC INR (0.9-1.1) VBG pH (7.32-7.43) VBG pCO2 mmHg VBG pO2 mmHg VBG HCO3 (22-26) mmol/L VBG O2 Saturation % VBG Base Excess mmol/L Sodium (135-145) mmol/L Potassium (3.3-5.1) mmol/L Chloride (96-108) mmol/L Carbon Dioxide (22-29) mmol/L Anion Gap (12-20) BUN (9-16) mg/dL Creatinine (0.5-1.4) mg/dL Estim Creat Clear Calc Estimated GFR POC Glucose (60-115) mg/dL Random Glucose (60-115) mg/dL Lactic Acid (0.5-2.0) mmol/L Calcium (8.4-10.2) mg/dL Magnesium (1.6-2.6) mg/dL Total Bilirubin (0.0-1.0) mg/dL AST (5-31) U/L ALT (0-31) U/L Alkaline Phosphatase (39-117) U/L Ammonia (13-55) umol/L Total Creatine Kinase (26-140) U/L Troponin I High Sens 31.0 H (<3.5-17.0) ng/L Total Protein (6.5-8.0) g/dL Albumin (3.5-5.0) g/dL Lipase (8-78) U/L Urine Color Yellow Urine Appearance Clear Urine pH 5.5 (5.0-9.0) Ur Specific [place] 1.015 (1.005-1.025) Urine Protein Negative (Neg-Trace) mg/dL Urine Glucose (UA) Negative (Negative) mg/dL Urine Ketones Negative (Negative) mg/dL Urine Blood Negative (Negative) Urine Nitrite Negative (Negative) Ur Leukocyte Esterase Trace H (Negative) Urine RBC 0-2 (0-2) /HPF Urine WBC 0-5 (0-5) /HPF Ur Squamous Epith Cells 3-5 (0-2) /HPF Urine Bacteria None Seen (None Seen) Hyaline Casts 0-2 (0-2) /LPF Stool Occult Blood NEGATIVE (NEGATIVE) Urine Opiates Screen Not Detected (Not Detect) Ur Buprenorphine Scrn Not Detected (Not Detect) ng/mL Ur Oxycodone Screen Not Detected (Not Detect) ng/mL Urine Methadone Screen Not Detected (Not Detect) ng/mL Urine Fentanyl Screen Not Detected (Not Detect) Ur Barbiturates Screen POSITIVE H (Not Detect) Ur Phencyclidine Scrn Not Detected (Not Detect) Ur Amphetamines Screen Not Detected (Not Detect) U Benzodiazepines Scrn Not Detected (Not Detect) Urine Cocaine Screen Not Detected (Not Detect) U Marijuana (THC) Screen Not Detected (Not Detect) Independent Interpretation I performed an independent interpretation of an: EKG ( my interpretation EKG sinus rhythm with first-degree AV block rate of 91. CA interval 212. No significant change when compared to prior. No STEMI), Plain X-Ray and CT Scan Radiology Impression Discussion of test interpretation with radiology: I have reviewed the radiologist's reading. Independent Historian Clinical information obtained from an independent historian. History obtained from or confirmed by: EMS and Other ( siblings, CAPACITY MANAGER) External Record Review External record reviewed: Inpatient record, Office record, Outpatient record, Prior outpatient labs, Prior outpatient radiology, Primary care record and Outside ED record Tests considered The following testing was considered but not selected: As above Prescription Management I considered prescription management with: Pain Medication and Antibiotic Chronic Conditions Patient?s care impacted by: Other ( asthma/COPD, JOSÉ, anemia) Social Determinants Patient?s care significantly limited by Social Determinants of Health including: Problems related to primary support group and Other Social Determinant of Health Discharge Plan Discharge Clinical Impression: Altered mental status, Elevated CPK, Fall Patient Disposition: Admitted As Inpatient Prescriptions: No Action [id number]-ovnxserzopgua-dysp 50-325-40 mg tablet 1 tab PO Q6H PRN (Reason: Headache) atorvastatin 80 mg Tablet 80 mg PO BEDTIME Qty: 0 0RF metoprolol succinate 25 mg Tablet Extended Release 24 Hr 25 mg PO DAILY Qty: 0 0RF Protocol: Hold for SBP/HR < HOLD for SBP < : 90 HOLD for HR < : 60 loratadine 10 mg Tablet 10 mg PO DAILY Qty: 0 0RF montelukast 10 mg Tablet 10 mg PO BEDTIME Qty: 30 0RF sennosides [senna] 8.6 mg tablet 8.6 mg PO DAILY docusate sodium 100 mg capsule 100 mg PO BID clotrimazole 1 % cream 1 appl topical BID metoclopramide HCl 10 mg tablet 10 mg PO QID tramadol 50 mg tablet 50 mg PO Q8H PRN (Reason: Pain) Trelegy Ellipta 100-62.5-25 mcg blister with device 1 ea inhalation DAILY amitriptyline 150 mg tablet 150 mg PO BEDTIME Rx Instructions: with 50 mg duloxetine 20 mg capsule,delayed release(DR/EC) 20 mg PO DAILY amitriptyline 50 mg tablet 50 mg PO BEDTIME Rx Instructions: with 150 mg gabapentin 300 mg capsule 300 mg PO TID insulin glargine [Lantus U-100 Insulin] 100 unit/mL solution 65 unit subcut BEDTIME metformin 500 mg tablet extended release 24 hr 500 mg PO DAILY clonazepam 0.5 mg tablet 0.5 mg PO TID PRN (Reason: Pain) potassium chloride 20 mEq tablet,ER particles/crystals 20 meq PO DAILY (DME) lancets [OneTouch Delica Plus Lancet] 33 gauge misc See Rx Instructions .ROUTE BID Qty: 100 Rx Instructions: As directed (DME) OneTouch Ultra Test Strip See Rx Instructions .ROUTE BID Qty: 10 Rx Instructions: As directed Print Language: [place]
[2024-12-23] MEDS: 0.9 % Sodium Chloride 500 ML 999 ML IV (14:43)
[2024-12-23 15:04] LABS: Amphetamine Screen Urine Not Detected (Not Detect); Barbiturates, Urine POSITIVE (Not Detect); Benzodiazepines Screen Urine Not Detected (Not Detect); Buprenorphine Scr Not Detected (Not Detect); Cannabinoid Screen Urine Not Detected (Not Detect); Cocaine Screen Urine Not Detected (Not Detect); Fentanyl, urine Not Detected (Not Detect); Methadone Screen, Urine Not Detected (Not Detect); Opiate Screen Urine Not Detected (Not Detect); Oxycodone Screen Urine Not Detected (Not Detect); Phencyclidine Screen Urine Not Detected (Not Detect)
--- OUTSIDE RECORDS SUMMARY | 2024-12-23 15:08 | XMS_ITS | Encounter Summary ---
Author Organization [facility] Address [address] [place] [address] Care Team Providers Care Flight Test Data Acquisition Technician Name Role Phone Ashwin Arzola MD Primary Care Provider [phone] Reason for Referral * Consultation (Routine) - Authorized Specialty Diagnoses / Procedures Referred By Contac t Referred To Contact Urogynecology Diagnoses Urinary incontinence, unspecified type Ashwin Arzola MD [address] [place] [address] Phone: tel: fax: U[facility]necolog[address] Phone: tel: fax: Referral ID Status Reason Start Date Expiration Date Visits Requested Visits Authorized [id number] Authorized Specialty Services Required 12/20/2024 12/20/2025 1 1 * Cardiac Stress Testing (Routine) - Pending Review Specialty Diagnoses / Procedures Referred By Contac t Referred To Contact Cardiology Diagnoses Chest pain, unspecified type Elevated troponin Procedures Nuclear stress test with myocardial perfusion UT MYOCARDIAL PERFUSION IMAGING TOMOGRAPHIC MULTI STUDIES AT REST OR STRESS UT MYOCARDIAL PERFUSION IMAGING TOMOGRAPHIC SINGLE STUDY AT REST OR STRESS UT CARDIOVASCULAR STRESS TEST GLOBAL UT CV TMST/BIKE MAX/SUBMAX CONTINUOUS ECG MON/PHARM STRESS SUPVSR ONLY UT CV STRESS TEST/BIKE CONT ECG MON/PHARM STRESS INTERP & REPORT ONLY UT TEST STRESS CARDIOVASCULAR TRACING ONLY Ashwin Arzola MD [address] [place] [address] Phone: tel: fax: [facility] Referral ID Status Reason Start Date Expiration Date V isits Requested Visits Authorized [id number] Pending Review 12/20/2024 12/20/2025 3 3 Reason for Visit * Reason Comments Follow-up ER Follow up / C [employer] RENTAL CLERK ID: [id number] Encounter Details Date Type Department Care Team (Late st Contact Info) Description 12/20/2024 10:30 AM EDT Office Visit Adult Medicine [address] [phone] Ashwin Arzola MD [address] [place] [phone] Chest pain, unspecified type (Primary Dx); Hypokalemia; Elevated troponin; Urinary incontinence, unspecified type; Hand pain, left; Urinary urgency Social History Tobacco Use Types Packs/Day Years [...] on file documented as of this encounter Last Filed Vital Signs Vital Sign Reading Time Taken Comments Blood Pressure 118/56 12/20/2024 10:32 AM EDT Pulse 85 12/20/2024 10:32 AM EDT Temperature 36.6 ??C (97.8 ??F) 12/20/2024 10:32 AM E DT Respiratory Rate 20 12/20/2024 10:32 AM EDT Oxygen Saturation 98% 12/20/2024 10:32 AM EDT Inhaled Oxygen Concentration - - Weight 84.8 kg (187 lb) 12/20/2024 10:32 AM EDT Height 165.1 cm (5' 5 ) 12/20/2024 10:32 AM EDT Body Mass Index 31.12 12/20/2024 10:32 AM EDT documented in this encounter Ordered Prescriptions Prescription Sig Dispense Quantity Refills Last Filled Start Date End Date diclofenac (VOLTAREN) 1 % topical gel Apply 2 g topically 4 (four) times a day. 30 g 1 12/20/2024 documented in this encounter Progress Notes * Ashwin Arzola MD - 12/20/2024 10:30 AM EDT CHIEF COMPLAINT: Follow-up (ER Follow up / [facility] 12/15/24/ [employer] RENTAL CLERK ID: [id number]) IDENTIFIER: Melyssa Keating is a 69 y.o. old female. HPI: Pt with hx of diabetes, last A1c 03/2024 8.9 09/2024, Bipolar,CHF,Asthma/copd,JOSÉ,HTN Pt had [facility] ER visit 12/15/2024 for chest pain, pt received a call that her daughter had suffered a stroke and then had chest pain. Pt son activated the EMS. Pt with hx of mental health issues had psych admission 10/2023. In the ED she complained of mental pain the chest pain had resolved. Pt was an xious/tearful during the interview Potassium low at 3.2 and was replaced. trop elevated at 56.4 pt was seen in the ED 10/2024 trop was 112 EKG was not ischemic pt was scheduled for stress test EKG 12/2024 also w/o ischemia trops remained equivocal and pt was d/f[place] to home Pt with incontinence pt can sense she needs to urinate but cannot make it to the bathroom on time. Pt notes left hand pain for two months notes pain when trying to make a fist ROS: GENERAL: Negative for malaise, significant weight loss and fever RESPIRATORY: No cough, wheezing or shortness of breath CARDIOVASCULAR: See HPI MUSCULOSKELETAL: See HPI PAST MEDICAL HISTORY: Patient Active Problem List Diagnosis Date Noted Abnormal CT of the abdomen 08/19/2024 Bipolar disorder (CMS/HCC) 08/19/2024 COVID-19 08/19/2024 CTS (carpal tunnel syndrome) 08/19/2024 Costochondritis 08/06/2022 Restrictive lung disease 08/02/2022 Mild aortic stenosis 04/04/2022 Anemia 06/26/2021 Multiple falls 06/26/2021 Type 2 diabetes mellitus with cataract ([facility]) 05/04/2020 Obesity (BMI 30.0-34.9) 02/10/2018 Stage 1 mild COPD by GOLD classification ([facility]) 02/10/2018 Migraine 01/16/2017 Palpitations 07/08/2016 CHF (congestive heart failure) ([facility]) 04/22/2016 Asthma 04/05/2016 Diabetes mellitus with neurological manifestation ([facility]) 12/19/2014 Pulmonary nodules/lesions, multiple 10/17/2014 Aneurysm of middle cerebral artery 07/07/2014 Urinary incontinence 11/18/2013 Diabetic neuropathy ([facility]) 02/03/2013 JOSÉ (obstructive sleep apnea) 01/31/2012 DJD (degenerative joint disease), lumbar 12/20/2011 High cholesterol 12/20/2011 Primary hypertension 12/20/2011 SOCIAL HISTORY: Social History Tobacco Use Smoking status: Former Current packs/day: 0.00 Average packs/day: 3.0 packs/day for 15.0 years (45.0 ttl pk-yrs) Types: Cigarettes Start date: 10/13/1972 Quit date: 10/13/1987 Years since quittin.2 Smokeless tobacco: Former Substance Use Topics Alcohol use: No FAMILY HISTORY: Family Status Relation Name Status Mother CAD Father CAD Sister 60 Alive Sister Alive breast cancer Brother Alive spleen cancer MGM (Not Specified) MGF (Not Specified) PGM (Not Specified) PGF (Not Specified) Daughter Alive Daughter Alive Son Alive Aunt (Not Specified) Uncle (Not Specified) Other (Not Specified) Neg Hx (Not Specified) No partnership data on file Family History Problem Relation Name Age of Onset Heart attack Mother Heart attack Father Arthritis Sister 60 Breast cancer Sister 60 No Known Problems Sister No Known Problems Brother No Known Problems Maternal Grandmother No Known Problems Maternal Grandfather No Known Problems Paternal Grandmother No Known Problems Paternal Grandfather No Known Problems Daughter No Known Problems Daughter No Known Problems Son No Known Problems Aunt No Known Problems Uncle No Known Problems Other Blindness Neg Hx Cataracts Neg Hx Glaucoma Neg Hx Macular degeneration Neg Hx Strabismus Neg Hx Ovarian cancer Neg Hx Colon cancer Neg Hx Prostate cancer Neg Hx Pancreatic cancer Neg Hx Uterine cancer Neg Hx ACTIVE MEDICATIONS: No outpatient medications have been marked as taking for the 12/20/24 encounter (Appointment) with Ashwin Arzola MD. ALLERGIES: Penicillins PHYSICAL EXAM: Blood pressure 118/56, pulse 85, temperature 36.6 ??C (97.8 ??F), temperature source Oral, resp. rate 20, height 1.651 m (65 ), weight 84.8 kg (187 lb), SpO2 98%. There is no height or weight on fileto calculate BMI. Plan is deferred until next visit APPEARANCE: Alert and in no acute distress EYES: PERRLA, conjunctiva and sclera normal HEART: RRR with normal S1 and S2, no murmurs, no gallops, no JVD appreciated LUNG: clear to auscultation bilaterally EXTREMITIES: Extremities warm and well perfused without clubbing, cyanosis, or edema Left hand tender olsen area below the digits no erythema no effusion LABS: none IMPRESSION: 1. Chest pain, unspecified type 2. Hypokalemia 3. Elevated troponin 4. Urinary incontinence, unspecified type 5. Hand pain, left 6. Urinary urgency PLAN: Pt last week was in the ER for chest pain following bad news about her daughter, pt notes daughter is doing ok, pt denies chest pain now but still notes she gets the pain off an on. Pt had elevated trop down from her level in 10/2024 pt was to have stress test not yet done I have ordered a nuclear stress test today. Pt had potassium replaced in the hospital will check bmp today Pt with incontinence and urinary frequency pt with diabetes not controlled pt follows with endo. Ptdoes have medical necessity for adult diapers/pull up and wipes. I will refer to urogyn to help with diagnosis and additional management Pt with left hand pain x 2 months exam benign pt denies injury I will check xray and in the interimrx for voltern gel was sent to her pharmacy Pt has f/u with care team scheduled for next month Orders Placed This Encounter Procedures XR Hand 2 Views Left Basic metabolic panel Ambulatory referral to Urogynecology Nuclear stress test with myocardial perfusion ADDITIONAL ORDERS: None Ashwin Arzola MD on 12/20/2024 at 8:34 AM EDT documented in this encounter Plan of Treatment Upcoming Encounters Date Type Department Care Team (Late st Contact Info) Description 01/17/2025 2:00 PM EDT Office Visit Orthopedic Surgery - [place] [address] [phone] Linus Luna, MARCOS [address] [address] 01/27/2025 2:30 PM EDT Office Visit Adult Medicine [facility] - [address] [phone] Timmy Avina PA [address] [place] [address] 04/08/2025 9:40 AM EDT Appointment Radiology Department - [address] [phone] 04/12/2025 10:00 AM EDT Office Visit Urogynecology - [address] [phone] Shani Aquino MD [address] [place] [address] [address] [place] [address] Scheduled Orders Name Type Priority Associated Diagnoses Orde r Schedule Nuclear stress test with myocardial perfusion Cardiac Nuclear Medicine Routine Chest pain, unspecified type Elevated troponin 1 Occurrences starting 12/20/2024 until 12/20/2025 Scheduled Referrals Name Type Priority Associated Diagnoses Order Schedule Ambulatory referral to Urogynecology Outpatient Referral Routine Urinary incontinence, unspecified type 1 Occurrences starting 12/20/2024 until 12/20/2025 documented as of this encounter Results * (ABNORMAL) Basic metabolic panel (12/20/2024 11:44 AM EDT) Sodium 140 133 - 145 mmol/L LAB CHEMISTRY METHOD 12/20/2024 2:20 PM EDT [facility] Potassium 3.4(L) 3.5 - 5.5 mmol/L LAB CHEMISTRY METHOD 12/20/2024 2:20 PM EDT [facility] Chloride 105 96 - 110 mmol/L LAB CHEMISTRY METHOD 12/20/2024 2:20 PM EDT [facility] CO2 28 21 - 32 mmol/L LAB CHEMISTRY METHOD 12/20/2024 2:20 PM [facility] Anion Gap 7 3 - 11 LAB CHEMISTRY METHOD 12/20/2024 2:20 PM [facility] Glucose 105(H) 70 - 100 mg/dL LAB CHEMISTRY METHOD 12/20/2024 2:20 PM T [facility] BUN 12 5 - 25 mg/dL LAB CHEMISTRY METHOD 12/20/2024 2:20 PM [facility] Creatinine 0.56 0.50 - 1.10 mg/dL LAB CHEMISTRY METHOD 12/20/2024 2:20 PM [facility] eGFR 98 >=60 mL/min/1. 73m2 LAB CHEMISTRY METHOD 12/20/2024 2:20 PM T [facility] Comment:Calculation based on the??Chronic Kidney Disease Epidemiology Collaboration (CKD-EPI) equation refit??without adjustment for race. BUN/Creatinine Ratio 21.4 LAB CHEMISTRY METHOD 12/20/2024 2:20 PM [facility] Calcium 9.2 8.5 - 10.5 mg/dL LAB CHEMISTRY METHOD 12/20/2024 2:20 PM [facility] Blood Venous blood specimen / Unknown Venipuncture / Unknown 12/20/2024 11:44 AM EDT 12/20/2024 11:44 AM EDT us Ashwin Arzola MD LAB BLOOD ORDERABLES Final Resu lt [facility] [address] [place] [address], documented in this encounter Visit Diagnoses Diagnosis Chest pain, unspecified type- Primary Hypokalemia Hypopotassemia Elevated troponin Other abnormal blood chemistry Urinary incontinence, unspecified type Hand pain, left Pain in soft tissues of limb Urinary urgency Urgency of urination Encounter for screening mammogram for breast cancer documented in this encounter Care Teams Flight Test Data Acquisition Technician Relationship Specialty Start Date End Date Ashwin Arzola MD [address] [place] [phone] PCP - General Internal Medicine 08/01/20 documented as of this encounter
--- OUTSIDE RECORDS SUMMARY | 2024-12-23 15:08 | XMS_ITS | Encounter Summary ---
Author Organization [employer] Address [address] [place] [address] Care Team Providers Care Billing Adjudicator Name Role Phone Ashwin Arzola MD Primary Care Provider [phone] Reason for Visit * Reason Comments HOME HEALTH CERT Encounter Details Date Type Department Care Team (Late st Contact Info) Description 10/21/2024 Billing Patient Not Present Adult [facility] [address] [place] [phone] Ashwin Arzola MD [address] [place] [phone] Type 2 diabetes mellitus without complication, unspecified whether long term care administrator insulin use (CMS/HCC) (Primary Dx); Gastro-esophageal reflux disease without esophagitis; Convulsions, unspecified convulsion type (CMS/HCC); Obstructive sleep apnea (adult) (pediatric); Anemia, unspecified type; Essential (primary) hypertension; Chronic bronchitis, unspecified chronic bronchitis type (CMS/HCC); Hyperlipidemia, unspecified hyperlipidemia type; Degenerative disease of nervous system, unspecified (CMS/HCC); Repeated falls; long-term (current) use of aspirin; 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; long-term (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; long-term (current) use of insulin (CMS/HCC) Social History [...] Home Care Agency: [facility] [address] [facility] [address] PHONE # [phone] FAX # [phone] Recertification Code [id number] Initial Code G0180 documented in this encounter Plan of Treatment Upcoming Encounters Date Type Department Care Team (Late st Contact Info) Description 01/17/2025 2:00 PM EDT Office Visit Orthopedic Surgery - [place] [address] [phone] Linus Luna, DPM [address] [address] 01/27/2025 2:30 PM EDT Office Visit Adult Medicine [facility] - [address] [phone] Timmy Avina PA [address] [place] [address] 04/08/2025 9:40 AM EDT Appointment Radiology Department - [address] [phone] 04/12/2025 10:00 AM EDT Office Visit Urogynecology - [address] [phone] Shani Aquino MD [address] [place] [address] [place] [phone] documented as of this encounter Visit Diagnoses Diagnosis Type 2 diabetes mellitus without complication, unspecified whether long term care administrator insulin use ([facility])- Primary Gastro-esophageal reflux disease without esophagitis Convulsions, unspecified convulsion type ([facility]) Obstructive sleep apnea (adult) (pediatric) Anemia, unspecified type Essential (primary) hypertension Unspecified essential hypertension Chronic bronchitis, unspecified chronic bronchitis type ([facility]) Hyperlipidemia, unspecified hyperlipidemia type Degenerative disease of nervous system, unspecified ([facility]) Repeated falls 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
--- OUTSIDE RECORDS SUMMARY | 2024-12-23 15:08 | XMS_ITS | Encounter Summary ---
Author Organization [facility] Address [address] [place] [address] Care Team Providers Care Hotel Service Supervisor Name Role Phone Ashwin Arzola MD Primary Care Provider [phone] Encounter Details Date Type Department Care Team (Latest Contact Info) Description 12/20/2024 11:11 AM EDT - 12/20/2024 11:59 PM EDT Hospital Encounter XRAY - [facility] [address] [place] [address] Hand pain, left Discharge Disposition: Home or Self Care Social History Tobacco Use Types Packs/Day Years [...] on file documented as of this encounter Medications at Time of Discharge acetaminophen (TYLENOL 8 HOUR) 650 mg 8 hr tablet Take 1 Tablet by mouth 2 times daily for 10 days 08/06/2022 albuterol 2.5 mg /3 mL (0.083 %) nebulizer solution Take 1 Vial by nebulization every 4 hours as needed for Wheezing for up to 180 days 03/11/2023 amitriptyline (ELAVIL) 150 mg tablet Take 8 tablets (1,200 mg total) by mouth at bedtime. 03/06/2023 ammonium lactate (LAC-HYDRIN) 12 % lotion Apply to thick nails and skin of both feet of feet daily. At night wear socks to bed 08/28/2022 atorvastatin (LIPITOR) 80 mg tablet Take 1 tablet (80 mg total) by mouth 1 (one) time each day. 90 tablet 1 10/25/2024 blood-glucose meter kit Test tid 01/21/2023 blood-glucose meter,continuous (FreeStyle Cade 3 [place]) miscIndications: Type 2 diabetes mellitus with other specified complication, with long-term current use of insulin ([facility]) To check sugars 1 each 09/28/2024 blood-glucose sensor (FreeStyle Cade 3 Plus Sensor) deviceIndication s:Type 2 diabetes mellitus with other specified complication, with long-term current use of insulin ([facility]) Box = Kit = EA, change sensor every 14 days 6 each 1 09/28/2024 butalbital-aceta minophen-caffein e (FIORICET, ESGIC) 50-325-40 mg per tablet Take 1 tablet by mouth 1 (one) time each day. 01/08/2023 ciclopirox (LOPROX) 0.77 % gel Apply 1 Application topically 1 (one) time each day. 08/05/2023 clonazePAM (KlonoPIN) 0.5 mg tablet Take 1 tablet (0.5 mg total) by mouth at bedtime. Max Daily Amount: 0.5 mg 30 each 5 08/26/2024 clonazePAM (KlonoPIN) 1 mg tablet Take 1 tablet (1 mg total) by mouth at bedtime. 11/15/2021 diclofenac (VOLTAREN) 1 % topical gel Apply 4 g topically 4 times daily. 02/03/2023 diclofenac (VOLTAREN) 1 % topical gel Apply 2 g topically 4 (four) times a day. 30 g 1 12/20/2024 docusate sodium (COLACE) 100 mg capsule TAKE 1 CAPSULE BY MOUTH TWICE DAILY 60 capsule 4 11/29/2024 DULoxetine (CYMBALTA) [address] capsule TAKE 1 CAPSULE BY MOUTH ONCE DAILY WITH 60MG FOR TOTAL DAILY DOSE OF 80MG 11/16/2021 famotidine (Pepcid) 20 mg tablet Take 1 tablet (20 mg total) by mouth 1 (one) time each day. 30 each 11 08/26/2024 fluticasone-umec lidinium-vilante rol (Trelegy Ellipta) 100-62.5-25 mcg inhaler Inhale 1 puff (100 mcg total) by mouth 1 (one) time each day. 12/16/2023 furosemide (LASIX) 40 mg tablet Take 1 tablet (40 mg total) by mouth 2 (two) times a day. 11/19/2022 glucose blood test strip USE TO CHECK SUGARS TWICE DAILY 11/07/2023 hydrocortisone 2.5 % cream Apply topically 2 (two) times a day if needed for irritation or rash. 30 g 2 09/23/2024 insulin glargine (Lantus Solostar U-100 Insulin) 100 unit/mL (3 mL) injection pen Inject 30 Units under the skin 1 (one) time each day. 11/07/2023 lancets lancets USE TO CHECK SUGARS TWICE DAILY 09/25/2023 loratadine (CLARITIN) 10 mg tablet TOME 1 TABLETA POR VIA ORAL [place] 90 tablet 1 11/17/2024 magnesium oxide (MAG-OX) 400 mg (241.3 elemental magnesium) tablet Take 1 tablet (400 mg total) by mouth 1 (one) time each day. 04/20/2024 metFORMIN XR (GLUCOPHAGE-XR) 500 mg 24 hr tabletIndication s:Type 2 diabetes mellitus with other specified complication, with long-term current use of insulin ([facility]) Take 1 tablet (500 mg total) by mouth 1 (one) time each day. Take 1 Tablet by mouth daily 90 tablet 1 10/27/2024 metoclopramide (REGLAN) 10 mg tablet Take 1 Tablet by mouth 4 times daily. 11/07/2023 miconazole nitrate 2 % aerosol,spray Apply 1 applicator topically. 01/08/2024 montelukast (SINGULAIR) 10 mg tablet Take 1 tablet (10 mg total) by mouth at bedtime. 90 tablet 08/24/2024 naproxen (NAPROSYN) 500 mg tablet Take 1 Tablet by mouth 2 times daily (with meals). 11/07/2023 nystatin (MYCOSTATIN) 100,000 unit/gram powder Apply topically 4 times daily as needed. 11/07/2023 pantoprazole (PROTONIX) 40 mg EC tablet Take 1 tablet (40 mg total) by mouth 1 (one) time each day. 03/09/2024 pen needle, diabetic (BD Ultra-Fine Short Pen Needle) 31 gauge x 5/16 needle Use as directed three times daily 10/27/2020 polyethylene glycol (MIRALAX) 17 gram packet Take 1 Packet by mouth daily 05/08/2023 QUEtiapine (SEROquel) 100 mg tablet Take 1 tablet (100 mg total) by mouth 2 (two) times a day. 01/11/2022 senna 8.6 mg tablet TAKE 1 TABLET BY MOUTH EVERY DAY 30 tablet 4 11/29/2024 simethicone (Phazyme) 250 mg capsule Take 1 Tablet by mouth 4 times daily as needed for Other. 05/08/2023 topiramate (TOPAMAX) 100 mg tablet Take 2 tablets (200 mg total) by mouth 2 (two) times a day. 11/15/2021 traMADoL (ULTRAM) 50 mg tablet Take 1 tablet (50 mg total) by mouth every 8 (eight) hours if needed. 12/21/2021 traZODone (DESYREL) 50 mg tablet Take 1 tablet (50 mg total) by mouth at bedtime as needed for sleep. 30 tablet 08/26/2024 UNABLE TO FIND Insulin Pen Needle (B-D ULTRAFINE III SHORT PEN) 31G X 8 MM Misc, USE DIRECTED THREE TIMES DAILY 11/07/2023 UNABLE TO FIND CPAP Historical (HISTORICAL CPAP), by Nasal route at bedtime. BHI&R-pressure 6-16 zolpidem (AMBIEN) 10 mg tablet Take 1 tablet (10 mg total) by mouth at bedtime. 02/21/2022 documented as of this encounter Discharge Disposition Disposition Code Departure Means Destination Home or Self Care documented in this encounter Plan of Treatment Upcoming Encounters Date Type Department Care Team (Late st Contact Info) Description 01/17/2025 2:00 PM EDT Office Visit Orthopedic Surgery - [place] [address] [phone] Linus Luna, DPM [address] [address] 01/27/2025 2:30 PM EDT Office Visit [facility] - [address] [phone] Timmy Avina PA [address] [place], [place] 04/08/2025 9:40 AM EDT Appointment Radiology Department - [address] [phone] 04/12/2025 10:00 AM EDT Office Visit Urogynecology - [address] [phone] Shani Aquino MD [address] [place] [address] [place] [address] documented as of this encounter Procedures Procedure Name Priority Date/Time Associated Diagnosis Comments XR HAND 3+ VIEWS LEFT Routine 12/20/2024 11:22 AM EDT Hand pain, left documented in this encounter Results * XR Hand 3+ Views Left (12/20/2024 11:22 AM EDT) Anatomical Region Laterality Modality Upper Extremities, Hand Left Radiogra phic Imaging 12/20/2024 1:23 PM EDT Impressions 12/20/2024 1:28 PM EDT No acute fracture or dislocation of the left hand. ?? -------- FINAL REPORT -------- Dictated By: Irma Zurita Dictated Date: 12/20/2024 13:23 ET Assigned Physician: Irma Zurita Reviewed and Electronically Signed By: Irma Zurita Signed Date: 12/20/2024 13:28 ET Workstation ID: [id number] Transcribed By: Self Edit Transcribed Date: 12/20/2024 13:23 ET Narrative 12/20/2024 1:28 PM EDT HISTORY: hand pain x 2 months TECHNIQUE: AP, lateral, and oblique radiographs of the left hand COMPARISON: None FINDINGS: There is normal mineralization with no evidence of fracture or malalignment. ??Mild joint space narrowing at the 2-5 DIP joints with subchondral sclerosis. ??Small osteophytes are present. ??No significant soft tissue swelling. ??No significant soft tissue swelling is identified. Procedure Note Irma Zurita MD - 12/20/2024 HISTORY: hand pain x 2 months TECHNIQUE: AP, lateral, and oblique radiographs of the left hand COMPARISON: None FINDINGS: There is normal mineralization with no evidence of fracture ormalalignment. Mild joint space narrowing at the 2-5 DIP joints withsubchondral sclerosis. Small osteophytes are present. No significantsoft tissue swelling. No significant soft tissue swelling is identified. IMPRESSION: No acute fracture or dislocation of the left hand. -------- FINAL REPORT -------- Dictated By: Irma Zurita Dictated Date: 12/20/2024 13:23 ET Assigned Physician: Irma Zuriat Reviewed and Electronically Signed By: Irma Zurita Signed Date: 12/20/2024 13:28 ET Workstation ID: [id number] Transcribed By: Self Edit Transcribed Date: 12/20/2024 13:23 ET Ashwin Arzola MD IMG XR PROCEDURES Final Result documented in this encounter Visit Diagnoses Diagnosis Hand pain, left Pain in soft tissues of limb Encounter for screening mammogram for breast cancer documented in this encounter Care Teams Hotel Service Supervisor Relationship Specialty Start Date End Date Ashwin Arzola MD [address] [place] [id number] PCP - General Internal Medicine 08/01/20 documented as of this encounter
--- OUTSIDE RECORDS SUMMARY | 2024-12-23 15:08 | XMS_ITS | Clinical Summary ---
Author Organization [facility] [address] [facility] Address [address] [place] [address] Phone Care Team Providers Care Research Nurse Practitioner Name Role Phone Ashwin Arzola MD Primary Care Provider [phone] Allergies Active Allergy Reactions Criticality Noted Date [...] 24 025 Active blood-glucose meter,continuo us (FreeStyle Caed 3 [place]) miscIndication s:Type 2 diabetes mellitus with other [...] DAILY 60 capsule 4 11/29/19 25 Active diclofenac (VOLTAREN) 1 % topical gel Apply 2 g topically 4 (four) times a day. 30 g 1 12/21/19 25 Active potassium chloride (KLOR-CON M20) 20 mEq CR tablet Take 1 tablet (20 mEq total) by mouth 1 (one) time each day for 7 days. Tablet may be swallowed whole (do not crush/chew/suck on) OR broken in half and each half swallowed separately OR dissolved (whole tablet) in ~4 ounces of water (allow ~2 minutes to dissolve, stir well and administer immediately). 7 each 12/23/19 25 025 Active docusate sodium (COLACE) 100 mg capsule Take 1 capsule (100 mg total) by mouth 2 (two) times a day. 11/03/19 24 025 Discontinued senna (SENOKOT) 8.6 mg tablet Take 1 tablet (8.6 mg total) by mouth 1 (one) time each day. 11/03/19 24 025 Discontinued Active Problems Problem Noted Date Diagnosed Date [...] 06/26/2021 Type 2 diabetes mellitus with cataract 0 Obesity (BMI 30.0-34.9) 02/10/2018 Stage 1 mild [...] R MCA bifucation. Patient was follow in [place] and no intervention was recommended Urinary incontinence [...] Encounters Date Type Department Care Team Description 12/22/2024 Telephone Adult Medicine [address] [phone] Ashwin Arzola MD 12/21/2024 Telephone Adult Medicine [address] [phone] Meagan Roe, RN Faxed Order ([id number] order# [id number]) 12/20/2024 11:11 AM EDT - 12/20/2024 11:59 PM EDT Hospital Encounter [address] [phone] Hand pain, left Discharge Disposition: Home or Self Care 12/20/2024 10:30 AM EDT Office Visit [address] [phone] Ashwin Arzola MD Chest pain, unspecified type (Primary Dx); Hypokalemia; Elevated troponin; Urinary incontinence, unspecified type; Hand pain, left; Urinary urgency 11/18/2024 Telephone Adult [address] [phone] Nika Ballesteros, SAULO 11/17/2024 Telephone Adult [address] [phone] Ashwin Arzola MD triage (Please triage see message from VNA nurse ) 11/10/[address] [phone] Ashwin Arzola MD Fitting for DME; Appointment 11/02/2024 Telephone Adult Medicine [address] [phone] Sandi Gomez RN 10/25/2024 Telephone Adult Medicine [address] [phone] Kari Avery LPN Fitting for DME (Faxed form from [facility] ) 10/21/2024 Billing Patient Not Present [address] [phone] Ashwin Arzola MD Type 2 diabetes mellitus without complication, unspecified whether long term care administrator insulin use ([facility]) (Primary Dx); Gastro-esophageal reflux disease without esophagitis; Convulsions, unspecified convulsion type ([facility]/HCC); Obstructive sleep apnea (adult) (pediatric); Anemia, unspecified type; Essential (primary) hypertension; Chronic bronchitis, unspecified chronic bronchitis type ([facility]); Hyperlipidemia, unspecified hyperlipidemia type; Degenerative disease of nervous system, unspecified ([facility]); Repeated falls; intermediate (current) use of aspirin; intermediate (current) use of oral hypoglycemic drugs; intermediate (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; long term care social worker (current) use of insulin ([facility]) 10/20/[address] [phone] Ema Cornell MD Medication Review 10/18/2024 2:00 PM EST Office Visit Orthopedic Surgery [address] [phone] Linus Luna DPM Primary osteoarthritis of both feet (Primary Dx); Tinea pedis of both feet; Dermatophytosis of nail; Pain in toe of right foot; Pain in toe of left foot; Diabetic mononeuropathy simplex ([facility]); Type II diabetes mellitus with peripheral circulatory disorder ([facility]); Metatarsalgia of both feet [M77.41, M77.42] 10/15/2024 Telephone Adult Medicine [address] [phone] Ashwin Arzola MD vna call 10/11/2024 [facility] [address] [phone] Ashwin Arzola MD VNA Order ([employer]/Order #[id number], [id number]) 10/04/[address] [phone] Ema Cornell MD medications 09/30/[address] [phone] Ema Cornell MD PRIOR AUTHORIZATION (Freestyle cade 3 reader) 09/29/[address] [phone] Ema Cornell MD PRIOR AUTHORIZATION 09/28/2024 2:30 PM EST Office Visit [address] [phone] Ema Cornell MD Type 2 diabetes mellitus with other specified complication, with long-term current use of insulin ([facility]) (Primary Dx) 09/28/2024 Telephone Adult Medicine [address] [phone] Ashwin Arzola MD VNA Order ([id number]/Orde r #[id number]) from Last 3 Months Immunizations Name Administration [...] Date Site/Laterality Comments CARPAL TUNNEL RELEASE PROCEDURE: AR NEUROPLASTY &/TRANSPOS MEDIAN NRV CARPAL TUNNE HYSTERECTOMY 2004 PROCEDURE: HISTORICAL HYSTERECTOMY; COMMENT: vaginal, ovaries in place CHOLECYSTECTOMY PROCEDURE: HISTORICAL CHOLECYSTECTOMY COLONOSCOPY 05/19/2017 PROCEDURE: HISTORICAL COLONOSCOPY; COMMENT: diverticulosis, int hemorrhoids; repeat in 5 yrs under propofol UPPER GASTROINTESTINAL ENDOSCOPY 10/29/2016 PROCEDURE: AR UPPER GI ENDOSCOPY PERFORMED; COMMENT: gastritis; biopsies not taken COLONOSCOPY 03/31/2012 PROCEDURE: HISTORICAL COLONOSCOPY; COMMENT: [facility]; Four adenomas UPPER GASTROINTESTINAL ENDOSCOPY 09/02/2019 PROCEDURE: UPPER GI ENDOSCOPY/EXAM; COMMENT: gastritis, biopsy pending CATARACT EXTRACTION Right PROCEDURE: HISTORICAL CATARACT REMOVAL Medical History Medical History Date Comments Asthma DX:Asthma Seronegative rheumatoid arth ritis ([facility]) DX:Seronegative rheumatoid a rthritis ([facility]) Lumbar spondylosis DX:Lumbar spo ndylosis; COMMENT: L3-S1 CTS (carpal tunnel syndrome) DX: CTS (carpal tunnel syndrome); COMMENT: s/p bilat surgery Plantar fasciitis DX:Plantar fas ciitis; COMMENT: Left Medial epicondylitis DX:Medial e picondylitis Pulmonary nodules DX:Pulmonary n odules; COMMENT: calcified Diabetes mellitus ([facility]) DX:D iabetes mellitus ([facility]) Bipolar disorder ([facility]) DX:Bi polar disorder ([facility]) HTN (hypertension) DX:HTN (hyper tension) Bronchitis, not specified as acute or chronic DX:Bronchitis, not specified as acute or chronic Diabetes mellitus with neuro logical manifestation ([facility]) 12/19/2014 DX:Diabetes mellitus with neurological manifestation ([facility]) Hemiparesis affecting left s anthony as late effect of stroke ([facility]) 05/15/2016 DX:Hemiparesis affecti ng left side as late effect of stroke ([facility]) Gastritis 11/22/2016 DX:Gastritis Migraine 01/16/2017 DX:Migraine Migraine without status migr ainosus, not intractable 01/16/2017 DX:Migraine without status migrainosus, not intractable 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 ([facility]/HCC) 02/20/2017 DX:DM type 2 causing neurolo gical disease ([facility]) Helicobacter pylori infection DX :Helicobacter pylori infection [...] Mass Index 31.12 12/20/2024 10:32 AM EDT Plan of Treatment Upcoming Encounters Date Type Department Care Team (Late st Contact Info) Description 01/17/2025 2:00 PM EDT Office Visit Orthopedic Surgery - [place] [address] [phone] Linus Luna, DPM [address] [address] 01/27/2025 2:30 PM EDT Office Visit [place] Medicine [place] - [address] [phone] Timmy Avina PA [address] [place] [address] 04/08/2025 9:40 AM EDT Appointment Radiology Department - [address] [phone] 04/12/2025 10:00 AM EDT Office Visit Urogynecology - [address] [phone] Shani Aquino MD [address] [place] [address] [address] [place] [address] Health Maintenance Due Date Last Done Comments [...] 12/13/2022 Diabetes: Annual GFR (Glomerular Filtration Rate) 12/20/2025 12/20/2024, 09/23/2024, 03/29/2024, Additional history exists Hypertension/CHF/CAD Annual BMP Blood Test 12/20/2025 12/20/2024, 09/23/2024, 03/29/2024, Additional history exists Colorectal Cancer Screening: Colonoscopy 12/21/2025 12/21/2020, 05/19/2017 [...] Procedure Name Priority Date/Time Associated Diagnosis Comments BASIC METABOLIC PANEL Routine 12/20/2024 11:44 AM EDT Hypokalemia XR HAND 3+ VIEWS LEFT Routine 12/20/2024 11:22 AM EDT Hand pain, left MICROALBUMIN CREATININE URINE RATIO Routine 09/23/2024 2:36 PM EST Type 2 diabetes mellitus with cataract (CMS/HCC) HEMOGLOBIN A1C Routine 09/23/2024 2:36 PM EST Type 2 diabetes mellitus with cataract (CMS/HCC) LIPID PANEL WITH REFLEX TO DIRECT LDL Routine 09/23/2024 2:36 PM EST High cholesterol DEPRESSION SCREENING Routine 08/11/2024 SCREENING MAMMOGRAPHY BI [...] Relevant to Health Maintenance Results * (ABNORMAL) Basic metabolic panel (12/20/2024 11:44 AM EDT) Sodium 140 133 - 145 mmol/L LAB CHEMISTRY METHOD 12/20/2024 2:20 PM EDT [facility] Potassium 3.4(L) 3.5 - 5.5 mmol/L LAB CHEMISTRY METHOD 12/20/2024 2:20 PM EDT [facility] Chloride 105 96 - 110 mmol/L LAB CHEMISTRY METHOD 12/20/2024 2:20 PM T [facility] CO2 28 21 - 32 mmol/L LAB CHEMISTRY METHOD 12/20/2024 2:20 PM [facility] Anion Gap 7 3 - 11 LAB CHEMISTRY METHOD 12/20/2024 2:20 PM T [facility] Glucose 105(H) 70 - 100 mg/dL LAB CHEMISTRY METHOD 12/20/2024 2:20 PM T [facility] BUN 12 5 - 25 mg/dL LAB CHEMISTRY METHOD 12/20/2024 2:20 PM [facility] Creatinine 0.56 0.50 - 1.10 mg/dL LAB CHEMISTRY METHOD 12/20/2024 2:20 PM [facility] eGFR 98 >=60 mL/min/1. 73m2 LAB CHEMISTRY METHOD 12/20/2024 2:20 PM T [facility] Comment:Calculation based on the??Chronic Kidney Disease Epidemiology Collaboration (CKD-EPI) equation refit??without adjustment for race. BUN/Creatinine Ratio 21.4 LAB CHEMISTRY METHOD 12/20/2024 2:20 PM [facility] Calcium 9.2 8.5 - 10.5 mg/dL LAB CHEMISTRY METHOD 12/20/2024 2:20 PM T [facility] Blood Venous blood specimen / Unknown Venipuncture / Unknown 12/20/2024 11:44 AM EDT 12/20/2024 11:44 AM EDT us Ashwin Arzola MD LAB BLOOD ORDERABLES Final Resu lt [facility] [address] [place] [address], * XR Hand 3+ Views Left (12/20/2024 11:22 AM EDT) Anatomical Region Laterality Modality Upper Extremities, Hand [facility] 12/20/2024 1:23 PM EDT Impressions 12/20/2024 1:28 PM EDT No acute fracture or dislocation of the left hand. ?? -------- FINAL REPORT -------- Dictated By: Irma Zurita Dictated Date: 12/20/2024 13:23 ET Assigned Physician: Irma Zurita Reviewed and Electronically Signed By: Irma Zurita Signed Date: 12/20/2024 13:28 ET Workstation ID: [id number] Transcribed By: Self Edit Transcribed Date: 12/20/2024 [...] Signed Date: 12/20/2024 13:28 ET Workstation ID: [id number] Transcribed By: Self Edit Transcribed Date: 12/20/2024 13:23 ET us Ashwin Arzola MD IMG XR PROCEDURES Final Result * (ABNORMAL) Lipid panel with reflex to direct LDL (09/23/2024 2:36 PM EST) Cholesterol 155 0 - 200 mg/dL LAB CHEMISTRY METHOD 09/23/2024 5:43 PM EST [facility] Triglycerides 153(H) 0 - 150 mg/dL LAB CHEMISTRY METHOD 09/23/2024 5:43 PM EST [facility] HDL 72 >=40 mg/dL LAB CHEMISTRY METHOD 09/23/2024 5:43 PM EST [facility] LDL Calculated 52 0 - 100 mg/dL LAB CHEMISTRY METHOD 09/23/2024 5:43 PM EST [facility] VLDL Cholesterol Jacoby 30.6 mg/dL LAB CHEMISTRY METHOD 09/23/2024 5:43 PM EST [facility] Non HDL Chol. (LDL+VLDL) 83 <145 mg/dL LAB CHEMISTRY METHOD 09/23/2024 5:43 PM EST [facility] Chol/HDL Ratio 2.2 0.0 - 4.4 LAB CHEMISTRY METHOD 09/23/2024 5:43 PM EST [facility] Blood Venous blood specimen / Unknown Venipuncture / Unknown 09/23/2024 2:36 PM EST 09/23/2024 2:36 PM EST us Ashwin Arzola MD LAB BLOOD ORDERABLES Final Resu lt [facility] [address] [place] [address], * (ABNORMAL) Microalbumin creatinine urine ratio (09/23/2024 2:36 PM EST) Creatinine, Urine 327.0 mg/dL LAB CHEMISTRY METHOD 09/23/2024 6:24 PM EST [facility] Microalb, Ur 131.0(H) 0.0 - 29.0 mg/L LAB CHEMISTRY METHOD 09/23/2024 6:24 PM EST [facility] Microalb/Crea t Ratio 40(H) <30 mg/g creat LAB CHEMISTRY METHOD 09/23/2024 6:24 PM EST [facility] Urine Urine specimen obtained by clean catch procedure / Unknown Non-blood Collection / Unknown 09/23/2024 2:36 PM EST 09/23/2024 2:36 PM EST Ashwin Arzola MD LAB URINE ORDERABLES Final Resu lt Performing Organization Address City/[facility]/ZIP Co de Phone Number [facility] [address] [place] [address], [place] [phone] * (ABNORMAL) Hemoglobin A1c (09/23/2024 2:36 PM EST) Hemoglobin A1C 8.9(H) <6.5 % LAB CHEMISTRY METHOD 09/23/2024 10:33 PM EST [facility] Mean Bld Glu Estim. 209 mg/dL LAB CHEMISTRY METHOD 09/23/2024 10:33 PM EST [facility] Blood Venous blood specimen / Unknown Venipuncture / Unknown 09/23/2024 2:36 PM EST 09/23/2024 2:36 PM EST us Ashwin Arzola MD LAB BLOOD ORDERABLES Final Resu lt [facility] [address] [place] [address], [place] [phone] * Hm Depression Screening (08/11/2024) HM Depression Screening abstracted Yaneth Strong MD HEALTH MAINTENANCE Final Result * SCREENING MAMMOGRAPHY [...] bone mineral density by WHO criteria. [facility] Department of Internal Medicine recommends using National [...] alternative screening schedule based on dia [place] [facility] October 31, 2011 for patients with [...] bone mineral density by WHO criteria. [facility] Department of Internal Medicine recommendsusing National Osteoporosis [...] higher), BMD testingevery 15 years Michaela [facility] DXA PROCEDURES Final Result * Hm Colonoscopy (05/19/2017) Colonoscopy abstracted, no interpretation Anatomical Region Laterality Modality Other Historical Provider HEALTH MAINTENANCE Final Result * Hepatitis C Screening (05/04/2014) Hepatitis C Screening abstracted Historical Provider HEALTH MAINTENANCE Final Result from Last 3 Months or Most Recently Relevant to Health Maintenance Insurance [facility] MEDIC[facility] Member Subscriber Plan / Payer (Ef fective 2024-Present) Name:Melyssa Keating Relation to Subscriber:Self Name:Melyssa Keating Payer ID:[id number] Group ID:[id number] Type:Not on file Address: [place] [address] [address] [address] Care Teams Research Nurse Practitioner Relationship Specialty Start Date End Date Ashwin Arzola MD [address] [place] [id number] PCP - General Internal Medicine 08/01/20
--- OUTSIDE RECORDS SUMMARY | 2024-12-23 15:08 | XMS_ITS | Data Portability ---
Author Organization [facility], Main Office Address [address], [address] [place] [address] Care Team Providers Care Manufacturing Engineering Manager Name Role Phone AYAZ GUILLEN - 2ND FLOOR OTHER RENAN MARK Primary Care Provider Assessment No assessment recorded. Plan of Treatment [...] Details Recorded Time Type 2 diabetes mellitus [id number] Active 2023 Lynda Sinha MD [address] [facility], [address], [place], [address], [facility] 18:52:19 Cellulitis of left lower limb 1851824033749 9109 Active 2023 Lynda Sinha MD [address] [facility], [address], [place], [address], [facility] [employer] 18:52:25 Essential hypertensio n 83102284 Active 2023 Lynda Sinha MD [address] [facility], [address], [place], [address] , [facility] [employer] 18:53:29 Dementia with behavioral disturbance 9923126118672 Active 2023 Lynda Sinha MD [address] [facility], [address], [place], [address], [facility] [employer] 19:00:22 Hyperlipide sammi 38343660 Active 2023 Lynda Sinha MD [address], [address], [place], [address], [facility] 4 19:01:01 History of cerebral aneurysm 0161283202562 9109 Active 2023 Lynda Sinha MD [address], [address], [place], [address], [facility] 4 19:01:48 Chronic obstructive pulmonary disease 95053345 Active 2023 Lynda Sinha MD [address], [address], [place], [address], [facility] 4 19:03:01 Migraine 89547319 Active 2023 Lynda Sinha MD [address], [address], [place], [address], [facility] 4 19:04:18 Gastroesoph ageal reflux disease without esophagitis 273174458 Active 2023 Lynda Sinha MD [address] [facility], [address], [place], [address], [facility] 4 19:05:04 Problem Notes None recorded. Medical Equipment None Reported. Allergies Allergen ID Allergen Name Allergen Category Reaction Reaction Severity Criticality Documentation Date Start Date Code Code System Note Provider Name and Address Organization Details Recorded Time 31035 Product containin g penicilli n (product) medicatio n Not available Not available Not available 09/14/2024 [id number] SNOMED Not Available Not Available Not Available Vitals Date Recorded Body height Body mass index (BMI) Body weight Heart rate Respiratory rate Body temperature Oxygen saturation Oxygen saturation in Arterial blood by Pulse oximetry Systolic blood pressure Diastolic blood pressure Provider Name and Address Organization Details Last Updated DateTime 4 165.1 cm 31.1 kg/m2 36590.7 7 g 77 /min 18 /min 98 [degF] 98 % 98 % 142 mm[Hg] 72 mm[Hg] Lynda Sinha MD [address], [address], [place], [address], [facility] 15:39:49 Date Recorded Body height Body mass index (BMI) Body weight Heart rate Respiratory rate Body temperature Oxygen saturation Oxygen saturation in Arterial blood by Pulse oximetry Systolic blood pressure Diastolic blood pressure Provider Name and Address Organization Details Last Updated DateTime 165.1 cm 31.1 kg/m2 58738.7 7 g 69 /min 18 /min 98 [degF] 98 % 98 % 142 mm[Hg] 72 mm[Hg] Mallorie Hunter NP [address] [facility], [address], [place], [address], [facility] 11:14:18 Social History Question Answer Notes LastModified by Organizat ion Details LastModified Time Tobacco Smoking Status Former Smoker Smoked [id number] Lynda Sinha MD [address] [facility], [address], [place], [address], [facility] 09/14/2024 14:48:24 Do You Have An Advance Directive? Yes Information not available 09/14/2024 What Is Your Level Of Alcohol Consumption? None Information not available 09/14/2024 What Is Your Code Status? Full Code Information not available 09/14/2024 Where Do You Live? Apartment Alone, No Stairs Information not available 09/14/2024 Legal Guardian? No Informati on not available 09/14/2024 Do You Have A Medical Power Of Bottle Washer Machine? Yes Information not available 09/14/2024 What Was [...] Td(adult) unspecified formulation 9 completed Isha Hollis [facility] 09/08/2024 14:44:30 Td(adult) unspecified formulation 0 completed Isha Hollis [facility] 09/08/2024 14:44:40 Pneumococcal conjugate PCV 13 9 completed Isha Hollis [facility] 09/08/2024 14:44:59 Pneumococcal conjugate PCV 13 3 completed Isha Hollis [facility] 09/08/2024 14:45:08 Pneumococcal conjugate PCV 13 3 completed Isha Hollis [facility] 09/08/2024 14:45:16 pneumococcal polysaccharide PPV23 9 completed Isha Hollis [facility] 09/08/2024 14:46:27 pneumococcal polysaccharide PPV23 3 completed Isha Hollis [facility] 09/08/2024 14:46:39 pneumococcal polysaccharide PPV23 6 completed Isha Hollis [facility] 09/08/2024 14:46:46 influenza, unspecified formulation 2 [facility] 14:47:02 influenza, unspecified formulation 4 completed [facility]/08/[facility] 14:47:11 SARS-COV-2 (COVID-19) vaccine, UNSPECIFIED 1 completed Isha Hollis [facility] 09/08/2024 14:47:30 SARS-COV-2 (COVID-19) vaccine, UNSPECIFIED 2 completed Isha Hollis [facility] 09/08/2024 14:47:43 zoster, unspecified formulation 1 completed Isha [facility] 09/08/2024 14:48:01 zoster, unspecified formulation 2 completed Isha summers [facility] 09/08/2024 14:48:10 Past Encounters Encounter ID Performer Location Encounter Start Date Encounter Closed Date Diagnosis/Indication Diagnosis SNOMED-CT Code Diagnosis ICD10 Code Diagnosis Note [id number] Lynda Sinha MD [address] [place] [address] 09/14/2024 14:37:20 09/15/2024 10:44:58 Cellulitis of left lower limb [id number] 0630395 L03.116 S/P LLE cellulitis without evidence of osteo.Comp leted abx inpt.Now almost all healed.Con tinue local skin care.Monit or. Type 2 jean betes mellitus 92909575 E11.9 Diet controlled at home.No BS checked since here.Will be going home tomorrow and will f/u with PCP. Essential hypertension 13499378 I10 Adequate control over first 3 days here, not checked since then.Sathya nue metoprolol 25 mg qd.Monitor BP and labs as outpt. Chronic ob structive pulmonary disease 73433603 J43.8 In hx.No current sxs.Unclea r why she is on both Incruse Ellipta and Trelegy, which both have umeclidini um in them.But will continue for now as pt is going home tomorrow.A lso continue montelukas t 10 mg qd and loratadine 10 mg qd.Monitor resp status. Dementia w ith behavioral disturbance 5404968794 103 F02.A18 Mild, but with hx of delusions and paranoia.S ome meds d/c'd inpt to avoid polypharma cy.Continu e amitriptyl ine 200 mg qhs, duloxetine 20 mg qd, gabapentin 300 mg TID and clonazepam 1 mg qhs.Monito r mood and behaviors. Provide supportive care.Does not need HCP invoked.F/ U as outpt. Hyperlipidemia 24150998 E78.49 Continue atorvastat in 80 mg qd. and ASA 81 mg qd.Monitor labs as outpt. History of cerebral aneurysm 9481361816 2870940 Z86.79 Stable per last CTA in 03/2024.Ventura plascencia with neuro as outpt. Migraine 99928887 G43.00 9 No current sxs.Was on fioricet as outpt.No recent sxs, so will not start right now.F/U as outpt. Gastroesop hageal reflux disease without esophagitis 657432329 K21.9 Continue pantoprazo le 40 mg qdMonitor GI sxs. [id number] Mallorie Hunter, [place] [facility] [address] [place] [address] 09/15/2024 11:13:41 09/16/2024 11:58:58 Cellulitis of left lower limb 1053302666 7390003 L03.116 S/P LLE cellulitis without evidence of osteo.Comp leted abx inpt.Now almost all healed.Ventura plascencia outpt with pcp appt 09/17 for s/s of infection Type 2 jean betes mellitus 96678626 E11.9 Diet controlled at home.No BS checked since here.f/u with PCP outpt Essential hypertension 51667981 I10 Adequate controlCon tinue metoprolol 25 mg qd.Monitor BP and labs as outpt. Chronic ob structive pulmonary disease 19485041 J43.8 In hx.No current sxs.Unclea r why she is on both Incruse Ellipta and Trelegycon tinuemonte lukast 10 mg qd and loratadine 10 mg qd.Monitor resp status outpt Dementia w ith behavioral disturbance 2208962960 103 F02.A18 Mild, but with hx of delusions and paranoia.S ome meds d/c'd inpt to avoid polypharma cy.Continu eamitripty line 200 mg qhs, duloxetine 20 mg qd, gabapentin 300 mg TID and clonazepam 1 mg qhs.Monito r mood and behaviors. Provide supportive care.Does not need HCP invoked.F/ U as outpt. Hyperlipidemia 56902538 E78.49 Continue atorvastat in 80 mg qd. and ASA 81 mg qd.Monitor labs as outpt. History of cerebral aneurysm 0243839122 3966283 Z86.79 Stable per last CTA in 03/2024.Mon itor with neuro as outpt. Migraine 29148601 G43.00 9 No current sxs.Was on fioricet as outpt.No recent sxs, so will not start right now.F/U as outpt with pcp Gastroesop hageal reflux disease without esophagitis 579630362 K21.9 Continuepa ntoprazole 40 mg qdMonitor GI sxs. outpt with pcp Health Concerns Section Related Observation LastModified by Organization Detai ls LastModified Time None Recorded Concern Status LastModified by Organization Details LastModified Time None Recorded Advance Directives Directive Y: Payers Encounter Date Sequence Insurance Name Policy Number Policy Edwards Covered Member ID Edwards Member ID Guarantor Name 09/14/2024 1 [facility] - DOS ON OR AFTER 2023 - MEDICARE [place]VANTAGE [place]MED[place]ARE RE[place]ACEMENT/ADV ANTAGE - PPO) Melyssa Keating [id number] Melyssa Keating 09/15/2024 1 [facility] - DOS ON OR AFTER 2023 - [place]IC[place]/ADV ANTAGE - PPO) Melyssa Keating [id number] Melyssa Keating Notes Date Note Type Note Provider Name and Address Organization Details Recorded Time 09/14/2024 text/html This is a 69 yo woman who is here for rehab after an acute hospitalization for She had initially been seen at [place] [facility] on 08/25forleft LE cellulitisand started on doxy after hitting leg when getting into truck ~ 5 days earlier. And then on08/31 for SOB, determined to be due to anxiety. [facility] increasing pain, swelling and redness. 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 Has 43 hrs/wk of [employer] time and [facility] comes every day to do her meds. Her PMH includes HTN, AODM, hx of CVA with left sided weakness, COPD, HLD, dementia with delusions, right MCA aneurysm (3 cm x3.5 cm and stable), migraines, depression/anxiety. Lynda Sinha MD [address] [place] [address], [address], [place], [address], [employer] 09/14/2024 19:24:34 09/15/2024 text/html This is a 69 yo woman who is here for rehab after several acute hospitalizations seen today for a discharge summary. Her PMH includes HTN, AODM, hx of CVA with left sided weakness, COPD, HLD, dementia with delusions, right MCA aneurysm (3 cm x3.5 cm and stable), migraines, depression/anxiety. Per summary:[facility] started on doxy after hitting leg when getting into truck ~ 5 days earlier.On08/31 for SOB, determined to be due to anxiety [facility] with LLE increasing pain, swelling and redness. She said she had hit it on something 5 days [employer], but was actually ~08/20.She was tachycardic with [...] delusions and was hospitalized for this at [facility] in 10/2023. She did not express any paranoia during this admission. PT recommended STR and she was transferred here on 09/07.No medications were changed in hospital. While here at [facility]:Melyssa continues to do well Since here she has been working with rehab and doing very well. She is walking 300' with walker and SBA.Today's visit assisted with a lebanese speaking staff member. She tells me she is feeling strong enough to go home and [employer] and VNA will come when she calls today. She has an outpt appt with Dr Mark on 09/17 to followup. On exam, she is sitting up in chair, LLE is not hot and swelling appears to be resolving. She is pleasant and denies any concerns today. Mallorie Hunter, [place] [address] [facility], [address], [place], [address], [facility] 09/15/2024 11:39:51 OBGyn Episode No OBEpisode recorded.
--- OUTSIDE RECORDS SUMMARY | 2024-12-23 15:09 | XMS_ITS ---
Author Name Marty GEORGESBeatriz Address [address] [place] [address] Phone [phone] [facility] Care Team Providers Care Fish Straightener Name Role Phone Beatriz Ferguson Unavailable [phone] [facility] Unavailable Shaina Olivares Unavailable Unavailable Ashwin Arzola Unavailable [phone] [facility] Unavailab [phone] Unavailable Unavailable Unavailable Reason for Referral Not [...] 2021-12-26 2023-01-02 Vitamin D (Ergocalciferol) 1.25 mg (53550 UT) Cap TAKE 1 CAPSULE BY MOUTH 1 TIME A WEEK 2021-11-16 2023-01-02 OneTouch Delica Plus [id number] Miscellaneous USE DIRECTED TWICE DAILY 2021-11-30 No [...] DAY AT BEDTIME 2022-05-01 No Data Available Thxffdbbec-JWHK-Ffkssisu 50/325/40 mg Tab TAKE 1 TABLET BY MOUTH EVERY 6 HOURS NEEDED 2022-05-01 No Data Available B-D PEN NDL SHRT 02FG2OO(02/25) CARMEN USE DIRECTED THREE TIMES DAILY 2021-08-21 No Data Available Diclofenac Sodium 1 % Gel APPLY 4 GRAMS TOPICALLY TO THE AFFECTED AREA TWICE DAILY 2022-05-29 No Data Available Furosemide 40 mg Tab TAKE 1 TABLET BY [facility] DAILY 2022-07-25 2023-01-02 Mapap Arthritis Pain 650 [...] 20 mg Tab TAKE 1 TABLET BY [facility] AT BEDTIME 2023-06-23 No Data Available Ondansetron 4 mg Tab TAKE 1 TABLET BY [facility] EVERY 8 HOURS NEEDED FOR NAUSEA 2023-06-23 No Data Available Loratadine 10 mg Tab TAKE 1 TABLET BY [facility] EVERY DAY 2023-07-03 No Data Available Cetirizine 10 mg Tab TAKE 1 TABLET BY [facility] AT BEDTIME 2023-07-05 No Data Available Nystatin 922964 UNIT/GM Powder APPLY TOPICALLY FOUR TIMES DAILY [...] 50 mg Tab TAKE 1 TABLET BY [facility] EVERY 8 HOURS NEEDED 2023-07-30 No [...] WITH MEALS 2023-11-07 No Data Available UNIFINE 37RI0RD PEN NEEDLES USE DIREC CODY THREE TIMES DAILY 2023-11-07 2023-11-26 Azithromycin 250 mg Tab TAKE 2 TABLETS B Y MOUTH FOR 1 DAY THEN TAKE 1 TABLET BY MOUTH DAILY FOR 4 DAYS 2023-11-11 No Data Available Cefuroxime Axetil 250 mg Tab TAKE 1 TABL ET BY MOUTH TWICE DAILY 2023-11-19 No Data Available Nystatin 146196 UNIT/GM Powder apply to affected area daily, [...] Active 12-13-29 N/A Other problems related to va dical facilities and other health care Active [...] Pain Documented on a Pain Scale (1125F) [facility] [place] Pain Assessment - Pain Documented on a Pain Scale (1125F) [facility] [place] Pain Assessment - Pain Documented on a Pain Scale (1125F) [facility] [place] Pain Assessment - Pain Documented on a Pain Scale (1125F) [facility] [place] Pain Assessment - Pain Documented on a Pain Scale (1125F) [facility] [place] Pain Assessment - Pain Documented on a Pain Scale (1125F) [facility] [place] Pain Assessment - Pain Documented on a Pain Scale (1125F) [facility] [place] Pain Assessment - Pain Documented on a Pain Scale (1125F) [facility] [place] Type 2 diabetes [...] 95 for video, modifier [address] [facility] Hypertensive heart disease w ith heart [...] 1111F, BP, A1c or other CPTII codes [facility] [place]22 Encounter for other specifie d aftercare RN, CN or CP time with patient by phone; use with 1111F, BP, A1c or other CPTII codes [facility] [place] [facility] [place]22 Chronic obstructive pulmonar y disease with (acute) exacerbation No Data Available [facility] [place]22 Estab. patient 30-39min; chronic exacerbation, 2 stable chronic or 1 acute illness add add modifier 95 for video, (do not use for phone, instead use 79554-48) [facility] [place]2023 Type 2 diabetes mellitus wit h [...] (do not use for phone, instead use 36041-93) [facility] [place] Estab. patient 30-39min; chronic exacerbation, 2 stable chronic or 1 acute illness add add modifier 95 for video, (do not use for phone, instead use 95530-05) [facility] [place] Estab. patient 30-39min; chronic exacerbation, 2 stable chronic or 1 acute illness add add modifier 95 for video, (do not use for phone, instead use 76668-48) [facility]23 Estab. patient 30-39min; chronic exacerbation, 2 stable chronic or 1 acute illness add add modifier 95 for video, (do not use for phone, instead use 93208-63) [facility] [place]23 Estab. patient 30-39min; chronic exacerbation, 2 stable chronic or 1 acute illness add add modifier 95 for video, (do not use for phone, instead use 65851-01) [facility] [place]23 Estab. patient 30-39min; chronic exacerbation, 2 stable chronic or 1 acute illness add add modifier 95 for video, (do not use for phone, instead use 11525-86) [facility] [place]2023 Estab. patient 30-39min; chronic exacerbation, 2 stable chronic or 1 acute illness add add modifier 95 for video, (do not use for phone, instead use 74595-17) [facility] [place]2023 Estab. patient 30-39min; chronic exacerbation, 2 stable chronic or 1 acute illness add add modifier 95 for video, (do not use for phone, instead use 56566-71) [facility] [place] RN, CN or CP time with patient by phone; use with 1111F, BP, A1c or other CPTII codes [facility] [place]/2023 Encounter for other specifie d aftercare RN, CN or CP time with patient by phone; use with 1111F, BP, A1c or other CPTII codes [facility] [place] 01/[place]/[address] [facility] [place] 03/[place]/2023 Other chest pain No Data Available [facility] [place] Chronic obstructive pulmonar y disease, unspecifiedChronic respiratory failure, unsp w hypoxia or hypercapniaSchizophrenia, unspecified No Data Available [facility] [place] 04[place] [facility] [facility] [place] [facility] [facility] [facility] [place]2023 Type 2 diabetes mellitus wit h [...] status migrainosusAtherosclerosis of aorta No Data Available [facility] [place] [facility] [facility] [place] [facility] [place] [facility] [facility] [place]2023 Type 2 diabetes [...] and other health care No Data Available [facility] [facility] [facility] [facility] [facility] RN, CN or CP time with patient by phone; use with 1111F, BP, A1c or other CPTII codes [facility] ([place] 11/20/2023 Encounter for other specifie d aftercare RN, CN or CP time with patient by phone; use with 1111F, BP, A1c or other CPTII codes [facility] [place]2023 Vital Signs Date of Collection Vitals [...] tive Time Current Smoking Status Former smoker 2024-12-11 3 Sex Female History of Procedures Procedures Service [...] (do not use for phone, instead use 23442-97) 33585 2022-09-10 No Data Available No Data Availa ble Estab. patient 20-29min; 1 stable chronic or 2 minor; add add modifier 95 for video, modifier 93 for phone 39543 2022-10-03 No Data Available No Data Availa ble RN, CN or CP time with patient by phone; use with 1111F, BP, A1c or other CPTII codes 23706 2022-11-28 No Data Available No Data Avai lable Medications prescribed in hospital were reviewed and reconciled against what they were taking prior to admission during today's visit. (1111F) 1111F 2022-11-28 No Data Available No Data Availa ble No Data Available [id number] 2022-12-03 No Data Available No Data Available Medications prescribed in hospital were reviewed and reconciled against what they were taking prior to admission during today's visit. (1111F) 1111F 2022-12-03 No Data Available No Data Availa ble Estab. patient 30-39min; chronic exacerbation, 2 stable chronic or 1 acute illness add add modifier 95 for video, (do not use for phone, instead use 90235-27) 39418 2023-01-09 No Data Available No Data Availa [...] 1111F, BP, A1c or other CPTII codes 98566 2023-01-02 No Data Available No Data Avai lable Medications prescribed in hospital were reviewed and reconciled against what they were taking prior to admission during today's visit. (1111F) 1111F 2023-01-02 No Data Available No Data Availa ble No Data Available [id number] 2023-03-28 No Data Available No Data Available [...] No Data Availa ble No Data Available [id number] 2023-11-24 No Data Available No Data Available [...] 1111F, BP, A1c or other CPTII codes 16231 2023-11-20 No Data Available No Data Avai [...] Falls in last 6 Months: No 2022-09-10 ENGINEERING ASSOCIATE only there for 9 hours 2023-11-24 Mental [...] or disease education needs that may arise.On AqtjahAglhbkqpkoE9d- 7.5Encouraged regular exerciseLimit unhealthy foods and eat healthy mealsAvoid sugar-sweetened beverages. White bread, rice, pasta.Follows EndocrinologistDiscussed recommended a1c level- <7%CVA 2007Has a PCAAmbulates with a cane/walkerOn Anoro ElliptaSpirivaProAiron 3L 02 PRNFollows PulmonologistOn 3l 02Follows PulmonologistOn QuetiapineAripiprazoleDuloxetineFollows PsychiatristOn AmbienUses Ztlido patchOn Vitamin DOn FurosemideMetoprololWill monitor edema and weight, follows cardiologyOn AripiprazoleStableFollows PsychiatrSancta Maria HospitalCxgbefWxoylkqexqZ3c- 7.1Follows OphthalmologistOn OmeprazoleAvoid spicy, fatty or fried food, caffeine, chocolateAvoid lying down after mealsAvoid eating late at nightWears Pull-ups 2022-10-03 11:44:44 Televideo 20-29min; 1 stable chronic or 2 minor; add modifier 95Continue to see PCP. Follow-up with Kayla as needed for any acute or disease education needs that may arise 05/05.On XnuxyxCoblmlbmygE1m- 7.1Encouraged regular exerciseLimit unhealthy foods and eat healthy mealsAvoid sugar-sweetened beverages. White bread, rice, pasta.Follows EndocrinologistDiscussed recommended a1c level- <7%CVA 2007Ha a PCAAmbulates with a cane/walkerOn Anoro ElliptaSpirivaProAiron 3L 02 PRNFollows PulmonologistOn 3l 02Follows PulmonologistOn QuetiapineAripiprazoleDuloxetineFollows [facility] AmbienUses Ztlido patchOn Vitamin DOn FurosemideMetoprololWill monitor edema and weight, follows cardiologyOn AripiprazoleStableFollows PsychiatristOn HgixssYzsieqvfqgH0d- 7.5Follows OphthalmologistOn OmeprazoleAvoid spicy, fatty or fried [...] or disease education needs that may arise.On WvjoeiSricnjsfupZ9b- 7.1Encouraged regular exerciseLimit unhealthy foods and eat [...] Psychiatrist01/09/23: Continue current treatment plan as directed.On ZwivbfGxzhkiwenuR6j- 7.5Follows OphthalmologistOn OmeprazoleAvoid spicy, fatty or fried [...] modifier 95)Continue to see PCP. [facility] any acute or disease education needs that may arise 05/05.On KdfepzEqlbynfovdC0x- 7.1Encouraged regular exerciseLimit unhealthy foods and eat [...] and fall precautions. Follow up as indicated.On GyrkovJxunbcvebfT2b- 7.5Follows OphthalmologistOn OmeprazoleAvoid spicy, fatty or fried food, caffeine, chocolateAvoid lying down after mealsAvoid eating late at night01/09/23: Continue current treatment plan as directed.has f/u visit 11/03/2023 Office Visit Gastroenterology Alber Benites PA-CWears Pull-ups+burning with voiding x months will f/u with AIRCRAFT DESIGN ENGINEER 09/16/2023 Office Visit Obstetrics & Gynecology Clare [...] 8.4 2GFR 80 3CVA 2008Does not have ENGINEERING ASSOCIATE 11/24/23Ambulates with a cane/walkerat risk for fallsFall prevention TIPS: Wear sensible shoes. Remove home hazards (Get rid of all rugs/mats in your home). Light up your living space (keep a flash light next to your bed for night time). Use assistive devices.ambulates with walkerOn Anoro ElliptaSpirivaProAiron 3L 02 PRNFollows Registry NurseCONTINGENCY PLANMember to call for the following symptoms: [...] agitationPlanned intervention: Contact mental health professional: psychiatry [phone] ([place])On quetiapinewith h/o delusions Follows Psychiatristfollowed by psychiatry [phone] (Neeta) ( member reports she does home [...] pneumoniae---sensitive to ceftriaxone) all uit symptoms resolved.On HfgwkhWypfhmhulyU7p- 7.0 11/19/23Follows OphthalmologistOn OmeprazoleAvoid spicy, fatty or fried food, caffeine, chocolateAvoid lying down after mealsAvoid eating late at night01/09/23: Continue current treatment plan as directed.has f/u visit 11/03/2023 Office Visit Gastroenterology Alber Benites PA-CWears Pull-ups+burning with voiding x months will f/u with AIRCRAFT DESIGN ENGINEER 09/16/2023 Office Visit Obstetrics & Gynecology Clare [...] ER visit(s) and precipitating factors: Hospital name: [facility]? ? Hospital admission date: 11/16/2023? ? 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 RN brought medications today. member unable to give me RN name or contact info. 2023-11-24 2 hours per day--no ENGINEERING ASSOCIATE (does not have a ENGINEERING ASSOCIATE) . email sent to [facility] cc re need for ENGINEERING ASSOCIATE 2023-11-24 followed by tracie bonilla [phone] (Neeta) ( member reports she does home visits) 2023-11-24 unable to complete medication reconciliation; RN not available and member does not administer medications her self. 2023-11-24 medication list u pdated after review of Hosp records/medication list
--- OUTSIDE RECORDS SUMMARY | 2024-12-23 15:09 | XMS_ITS | Encounter Summary ---
Author Organization [employer] [place] [address] Care Team Providers Care Weekend Receptionist Name Role Phone Ashwin Arzola MD Primary Care Provider [phone] Encounter Details Date Type Department Care Team ([facility] st Contact Info) Description 11/02/2024 Telephone Adult Medicine [address] [phone] Sandi Gomez RN Social History Tobacco Use [...] 3:07 PM EST Call to pt. Using external grinder, #[id number]. Message left to call the office to speak to the triage nurse. * Sandi Gomez RN - 11/02/2024 10:38 AM EST Seen in [facility] 10/27 for elevated troponin level Left vm for pt to return my call. documented in this encounter Plan of Treatment Upcoming Encounters Date Type Department Care Team (Late st Contact Info) Description 01/17/2025 2:00 PM EDT Office Visit Orthopedic Surgery - [place] [address] [phone] Linus Luna, DPM [address] [address] 01/27/2025 2:30 PM EDT Office Visit Adult Medicine South - [address] [phone] Timmy Avina PA [address] [place] [address] 04/08/2025 9:40 AM EDT Appointment Radiology Department - [address] [phone] 04/12/2025 10:00 AM EDT Office Visit Urogynecology - [address] [phone] Shani Aquino MD [address] [place] [address] [place] [address] documented as of this encounter Visit Diagnoses Not on filedocumented in this encounter Care Teams Weekend Receptionist Relationship Specialty Start Date End Date Ashwin Arzola MD [address] [place] [address] PCP - General Internal Medicine 08/01/20 documented as of this encounter
--- OUTSIDE RECORDS SUMMARY | 2024-12-23 15:09 | XMS_ITS | Encounter Summary ---
Author Organization [employer] Address [address] [place] [address] Care Team Providers Care Circular Stuffer Name Role Phone Ashwin Arzola MD Primary Care Provider [phone] Encounter Details Date Type Department Care Team ([facility] st Contact Info) Description 12/22/2024 Telephone Adult Medicine [facility] [address] [place] [phone] Ashwin Arzola MD [address] [place] [phone] Social History Tobacco Use Types Packs/Day Years [...] on file documented as of this encounter Ordered Prescriptions Prescription Sig Dispense Quantity Refills Last Filled Start Date End Date potassium chloride (KLOR-CON M20) 20 mEq CR tablet Take 1 tablet (20 mEq total) by mouth 1 (one) time each day for 7 days. Tablet may be swallowed whole (do not crush/chew/suck on) OR broken in half and each half swallowed separately OR dissolved (whole tablet) in ~4 ounces of water (allow ~2 minutes to dissolve, stir well and administer immediately). 7 each 12/22/2024 documented in this encounter Progress Notes * Gifty Ricks MA - 12/22/2024 9:10 AM EDT LVM for patient to return the call. * Ashwin Arzola MD - 12/22/2024 8:56 AM EDT Please inform patient(will need french speaking nurse) that her potassium is low. I have sent 7 days of replacement to her pharmacy, once she has completed this, she is to return to the lab so that we can recheck her potassium documented in this encounter Plan of Treatment Upcoming Encounters Date Type Department Care Team (Late st Contact Info) Description 01/17/2025 2:00 PM EDT Office Visit Orthopedic Surgery - [place] [phone] [phone] Linus Luna DPM [address] [address] 01/27/2025 2:30 PM EDT Office Visit Adult Medicine [facility] - [address] [phone] Timmy Avina PA [address] [place] [address] 04/08/2025 9:40 AM EDT Appointment Radiology Department - [address] [phone] 04/12/2025 10:00 AM EDT Office Visit Urogynecology - [address] [phone] Shani Aquino MD [address] [place] [address] [place] [address] Scheduled Orders Name Type Priority Associated Diagnoses Orde r Schedule Potassium, plasma Lab Routine Hypokalemia 1 Occurrences starting 12/22/2024 until 12/22/2025 documented as of this encounter Visit Diagnoses Diagnosis Hypokalemia- Primary Hypopotassemia Encounter for screening mammogram for breast cancer documented in this encounter Care Teams Circular Stuffer Relationship Specialty Start Date End Date Ashwin Arzola MD [address] [place] [address] PCP - General Internal Medicine 08/01/20 documented as of this encounter
--- OUTSIDE RECORDS SUMMARY | 2024-12-23 15:09 | XMS_ITS | Data Portability ---
Author Organization [employer] Address [address] [place] [address] Care Team Providers Care Education Professional Name Role Phone HIM [facility] OTHER [facility] Prim carlyn Care Provider Assessment Encounter Date Assessment Date Assessment LastModified by Organization Details LastModified Time 04/23/2024 04/23/2024 As noted, we wer e called to see this patient regarding concerns of hospital discharge. Evaluation in the field was performed by my clerical and office support workers colleague, as noted above, I provided real-time [...] Assessment and Plan as documented by the Digital Publishing Specialist. We discussed the diagnostic uncertainty of home visits and the risk associated with this/ the patient given the opportunity to ask questions. Advised if develops CP/severe SOB/turning blue/uncontrolled n/v/d /AMS/ syncope/ hi fever /cold blue leg or increasing red hot leg with uncontrolled pain to call 911- verbalized understanding of instruction [email or web address] Not available 08/23/2024 18:06:23 Plan of Treatment Reminders Order Date Submit Date Provider Last Modified By Organization Details Last Modified Time Details Appointments None recorded. Lab None recorded. Referral None recorded. Procedures None recorded. Surgeries None recorded. Imaging None recorded. Medication Orders prednisone 10 mg tablet 2023 [facility]armacy #[id number], [address] [place], [address], 19:32:25 azithromyci n 250 mg tablet 2023 [facility]armacy #2071, [address] [place], [address], 4 19:32:25 azithromyci n 250 mg tablet [address] [facility] [address] [facility]60487, [address], [place], [id number], 4 19:32:23 prednisone 50 mg tablet 2023 [facility]armacy #2071, [address] [place], [address], 4 19:32:26 prednisone 20 mg tablet [address] [facility]74726, [address], [place], [id number], 4 19:32:23 ipratropium 0.5 mg-albutero l 3 mg (2.5 mg base)/3 mL nebulizatio n soln 2023 024 [employer] [facility] #11814, [address], [place], [id number], 4 19:32:23 doxycycline hyclate 100 mg tablet 2023 024 [facility] [address] [place], [address], 4 14:01:33 mupirocin 2 % topical ointment 2023 024 [facility] [address] [place], [address], 4 14:01:34 acetaminoph en 500 mg tablet 2023 024 [email or web address] 0 [facility] #47199, [address], [place], [id number], 4 14:01:28 acetaminoph en 500 mg tablet 2023 024 [facility] [address] [place], [address], 4 14:01:34 bacitracin 500 unit/gram topical ointment 2023 024 [email or web address] 0 [facility] #91100, [address], [place], [id number], 4 18:08:41 doxycycline hyclate 100 mg tablet 2023 024 [email or web address] 0 [facility] #52158, [address], [place], [id number], 4 18:08:42 Patient TargetsNo targets recorded. Patient Instructions Encounter Date Encounter Id Patient Instructions Last Modified By Organization Details Last Modified Time 08/23/2024 [id number] application of wound dressing* - Wound cleansed with saline, pat dry with gauze, then superficial bacitracin applied,.I prefer mupirocin but the medic did not have any. Then bulky dry sterile dressing applied limiting tape on the skin and medic left some dressing supplies for the patient [email or web address] Not available 08/23/2024 18:08:41 Reason for Referral None Reported. Medical Equipment None Reported. Allergies Allergen ID Allergen Name Allergen Category Reaction Reaction Severity Criticality Documentation Date Start Date Code Code System Note Provider Name and Address Organization Details Recorded Time 9765 Product containin g penicilli n (product) medicatio n Not available Not available Not available 08/10/2024 57695 8001 SNOMED Not Available [employer] - production [...] Available No t Available Easy Comfort Pen [place] 31 gauge x 5/16 USE DIRECTED THREE [...] % 135 mm[Hg] 78 mm[Hg] Not Available [employer] - production 4 19:42:38 Date Recorded Respiratory rate Heart rate Body temperature Oxygen saturation Oxygen saturation in Arterial blood by Pulse oximetry Systolic blood pressure Diastolic blood pressure Provider Name and Address Organization Details Last Updated DateTime 4 16 /min 74 /min 98.6 [degF] 98 % 98 % 110 mm[Hg] 70 mm[Hg] Not Available [employer] - production 4 13:42:15 Date Recorded Body temperature Respiratory rate Body weight Body height Heart rate Oxygen saturation Oxygen saturation in Arterial blood by Pulse oximetry Systolic blood pressure Diastolic blood pressure Provider Name and Address Organization Details Last Updated DateTime 4 99.1 [degF] 14 /min 50865.6 g 167.64 cm 90 /min 96 % 96 % 148 mm[Hg] 78 mm[Hg] Not Available [employer] 4 19:25:22 Social History None recorded. Functional Status None recorded. Mental Status None recorded. Family History Nothing Reported. Medical History No medical history recorded. Gynecological HistoryNo gynecological history recorded. Obstetrics History GPAL:G 0 P 0 0 0 0 Past Encounters Encounter ID Performer Location Encounter Start Date Encounter Closed Date Diagnosis/Indication Diagnosis SNOMED-CT Code Diagnosis ICD10 Code Diagnosis Note [id number] Argelia Aceves MD [facility] - [facility] [address] [place] [address] [phone] 02/09/2024 17:15:15 02/09/2024 22:22:30 Injury of head 32317532 S09.90XA 68 year old female being evaluated [...] assessment and plan as documented by the clerical and office support workers. I provided real-time medical direction for this encounter and was immediatel y available to provide additional phone-base d assistance as needed. We discussed the diagnostic uncertaint y of home visits and associated risks. We discussed the need to seek care urgently/e mergently in the setting of any new or worsening symptoms. [id number] Gunjan Park MD Main - [facility] [address] [place] [address] [phone] 04/23/2024 19:42:36 04/25/2024 22:12:32 Post-discharge follow-up [id number] Z09 [id number] Daya Almanza MD Main - [facility] [address] [place] [address] [phone] 08/23/2024 13:42:09 08/23/2024 21:01:21 Cellulitis of left lower limb [id number] L03.116 puncture wound w/ infectionA dvised need to get x-ray to fully evaluate the extent of the damage-to rule out foreign body, possible fracture (although the latter is less likely because she is still ambulatory ) and the patient refused to leave. Risks of worse infection explained- including retained foreign body -loss of limb Allergies and pharmacy reviewed-r sharonda [facility] on [facility] in [place] Advised patient need to follow-up with PCP tomorrow-n ote also sent to care program resident through [facility]:micheline had metal trina ferro her [...] e before according to her med list [id number] Hector Llanes MD Main - [facility] [address] [place] [address] [phone] 09/21/2024 19:25:20 09/23/2024 00:02:50 Acute exacerbation of chronic obstructive pulmonary disease [id number] J44.1 As noted, we were called to see this patient regarding concerns of breathing difficulty , cough, sputum, concerning for COPD exacerbati on. Evaluation in the field was performed by my clerical and office support workers colleague, as noted above, I provided real-time [...] Edwards Member ID Guarantor Name 02/09/2024 1 [facility] - DOS ON OR AFTER 2023 - DUAL ELIGIBLE - LONGTERM OPTIONS AND ONE CARE (MEDICARE REPLACEMENT/ADV ANTAGE - HMO) Melyssa Keating [id number] Melyssa Keating 04/23/2024 1 [facility] - DOS ON OR AFTER 2023 - DUAL ELIGIBLE - LONGTERM OPTIONS AND ONE CARE (MEDICARE REPLACEMENT/ADV ANTAGE - HMO) Melyssa Keating [id number] Melyssa Keating 08/23/2024 1 [facility] - DOS ON OR AFTER 2023 - DUAL ELIGIBLE - LONGTERM OPTIONS AND ONE CARE (MEDICARE REPLACEMENT/ADV ANTAGE - HMO) Melyssa Keating [id number] Melyssa Keating 09/21/2024 1 [facility] - DOS ON OR AFTER 2023 - DUAL ELIGIBLE - LONGTERM OPTIONS AND ONE CARE (MEDICARE REPLACEMENT/ADV ANTAGE - HMO) Melyssa Keating [id number] Melyssa Keating Notes Date Note Type Note Provider Name and Address Organization Details Recorded Time 02/09/2024 text/html HPI: Member was falling asleep on phone with care program resident. Minimally responsive to prompts. She refused pressing her PERS and refused care program resident calling 911. ..................... ..................... ..................... ..................... ..................... ..................... ............... [facility] Nurse Triage Notes (Bailey Chavez): Comments: [facility] outreach to member was unsuccessful. Unable to reach- N Kathy VERNON ..................... ..................... ..................... ..................... ..................... ..................... ............... Digital Publishing Specialist Note From Kelvin Thomas: t reports falling [...] ............... Disposition: Fulfilled Argelia Aceves MD [address] [facility],[address], [place], [address], [employer] 02/09/2024 18:18:39 04/23/2024 text/html HPI: HPIarrived at [...] (Carole Estrada)Outreach to member completed with an cupola mechanic Member stated that she is feeling fine. Member did have a fall , denies hitting her head or pain after fall. Member denies any trouble staying awake. Member denies any sob, DANIEL, eating and drinking . Seemed to be delay in responding on with cupola mechanic unable to fully assessupdated 1553- unable to [...] contact with [facility] and [facility] hospitalized 04/10-04/12 for r/o TIA. requested [...] ..................... ..................... ..................... ..................... ..................... ..................... .. Digital Publishing Specialist Note From Laura Lee: Dispatched for 68 yo female chief complaint of lethargy/weakness. U/a pt is found seated upright on couch in living room. Pt presents CA&Ox4, patent airway, normal breathing and skin signs warm, pink and dry. Language barrier present -> electrical assembly technician services utilized. Pt states she has a [...] ..................... ............... 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 ..................... ..................... ..................... ..................... ..................... ............... Digital Publishing Specialist Note From Edmar Martinez: Dispatched for a scheduled visit for a female pt. with a left leg wound. pt. was found alert and oriented x3 sitting in living room albanian speaking only. electrical assembly technician contacted and it was determined the patient [...] +cms in all extremities -stroke scale findings. [facility] contacted medication list and photos of the affected area forwarded. [facility] ordered to clean the wound with sterile [...] also advised to follow up with PCP. [facility] noted to doctor need for x-ray.all times are approx.report completed by jacob martinez ..................... ..................... ..................... ..................... ..................... ..................... ............... [facility] Consulted: Daya Almanza ..................... ..................... ..................... ..................... ..................... ..................... ............... Disposition: Fulfilled Daya Almanza MD [address] [place] [address],[address] [facility], [place], [address], [employer] 08/23/2024 18:10:00 09/21/2024 text/html [facility] Nurse Triage Notes (Soha Nicholson): Reason For [...] week. Patient agreeable to an instED visit. Digital Publishing Specialist Organization Information for [employer] Legal Name: [facility] Address: [address] [place] [address], [place] [address], Compilation Clerk: Seb Avila MD [place] No.: [id number] Digital Publishing Specialist POC Test Results from [employer] Rapid COVID antigen (19:21:34) COVID: - Rapid influenza antigen (19:21:35) Flu: - ..................... ..................... ..................... ..................... ..................... ..................... ............... Digital Publishing Specialist Note From [employer]: Patient alert and oriented all information through medical phone [employer]. Patient complains of continued cough and difficulty [...] throughout lungs. Abdomen soft, nontender extremities unremarkable. [facility] orders prednisone 40 mg PO, azithromycin 500 mg PO, DuoNeb x1 and will Rx more to patients local pharmacy. Patient reports she has made a plan with her [facility] to coordinate PCP visit. Patient said she? s able to get the medications. Medications administered without complication using five rights. Red flags and patient education discussed via [employer].Patient demonstrates understanding of care and plan. Patient negative for Covid and flu via rapid POC. ..................... ..................... ..................... ..................... ..................... ..................... ............... [facility] Consulted: Kemar Llanes ..................... ..................... ..................... ..................... ..................... ..................... ............... Disposition: Fulfilled Hector Llanes MD [address] [facility],[address], [place], [address], [employer] 09/21/2024 21:09:50 OBGyn Episode No OBEpisode recorded.
--- OUTSIDE RECORDS SUMMARY | 2024-12-23 15:09 | XMS_ITS | Encounter Summary ---
Author Organization [employer] Address [address] [place] [address] Care Team Providers Care Recruitment Assistant Name Role Phone Ashwin Arzola MD Primary Care Provider [phone] Reason for Visit * Reason Onset Date Comments Faxed Order 12/21/2024 [id number] order# [id number] Encounter Details Date Type Department Care Team (Late st Contact Info) Description 12/21/2024 Telephone Adult Medicine [address] [phone] Meagan Roe RN Faxed Order ([id number] order# [id number]) Social History Tobacco Use Types Packs/Day Years [...] Progress Notes * Edwige Sousa MA - 12/23/2024 12:28 PM EDT SIGNED SCANNED AND E-FAXED * Meagan Roe RN - 12/21/2024 9:40 AM EDT Received [id number] order# [id number]. Please sign and fax to [phone]. documented in this encounter Plan of Treatment Upcoming Encounters Date Type Department Care Team (Late st Contact Info) Description 01/17/2025 2:00 PM EDT Office Visit Orthopedic Surgery - [place] [address] [address] Linus Luna DPM [address] [address] 01/27/2025 2:30 PM EDT Office Visit Adult Medicine South - [address] [phone] Timmy Avina PA [address] [place] [address] 04/08/2025 9:40 AM EDT Appointment Radiology Department - [address] [phone] 04/12/2025 10:00 AM EDT Office Visit Urogynecology - [address] [phone] Shani Aquino MD [address] [place] [address] documented as of this encounter Visit Diagnoses Not on filedocumented in this encounter Care Teams Recruitment Assistant Relationship Specialty Start Date End Date Ashwin Arzola MD [address] [place] [address] PCP - General Internal Medicine 08/01/20 documented as of this encounter
--- OUTSIDE RECORDS SUMMARY | 2024-12-23 15:09 | XMS_ITS | Encounter Summary ---
Author Organization [employer] Address [address] [place] [address] Care Team Providers Care Grease Packer Name Role Phone Ashwin Arzola MD Primary Care Provider [phone] Reason for Visit * Reason Onset Date Comments Fitting for DME 11/10/2024 Appointment 11/10/2024 Encounter Details Date Type Department Care Team (Late st Contact Info) Description 11/10/2024 Telephone Adult Medicine [address] [phone] Ashwin Arzola MD [address] [place] [phone] Fitting for DME; Appointment Social History Tobacco [...] AM EST Rx signed and faxed to [employer] @ [phone] to process for [facility] Also entered into [...] [facility] Does caller need an urgent call back? yes Was CONTACT Telephone # obtained above?: yes Fax #: [phone] [employer] documented in this encounter Plan of Treatment Upcoming Encounters Date Type Department Care Team ([facility] st Contact Info) Description 01/17/2025 2:00 PM EDT Office Visit Orthopedic Surgery - [place] [address] [phone] Linus Luna DPNaila [address] [address] 01/27/2025 2:30 PM EDT Office Visit Adult Medicine South - [address] [phone] Timmy Avina PA [address] [place] [address] 04/08/2025 9:40 AM EDT Appointment Radiology Department - [address] [phone] 04/12/2025 10:00 AM EDT Office Visit Urogynecology - [address] [phone] Shani Aquino MD [address] [place] [address] [address] [place] [address] documented as of this encounter Visit Diagnoses [...] 11/25/2024 documented in this encounter Care Teams Grease Packer Relationship Specialty Start Date End Date Ashwin Arzola MD [address] [place] [address] PCP - General Internal Medicine 08/01/20 documented as of this encounter
--- NOTE | 2024-12-23 16:40 | P.HPHOSP_ITS ---
History of Present Illness Date of Service: 12/23/24 <KATHRYN Paige - Last Filed: 12/23/24 17:16> Attending physician on admission: Nick Villagomez <KATHRYN Paige - Last Filed: 12/23/24 17:16> Chief Complaint: Fall at home, AMS <KATHRYN Paige - Last Filed: 12/23/24 17:16> Pt is a 69-year-old Tongan-speaking female with a PMH significant for?HLD, CVA, insulin-dependent type 2 diabetes, HTN, peripheral neuropathy, migraines, and COPD who presents to the ED with?after being found on the bathroom floor by CATH LAB NURSE this morning with unknown downtime. Pt was apparently in her normal state of health yesterday, though Dexcom reader given alarm last night that are POC was 50. Pt called her sister who told her to drink some juice which pt did and then went to bed. Pt has CATH LAB NURSE coverage in the day and in evening/night, though CATH LAB NURSE leaves just before bedtime. Pt does not remember events this morning, but CATH LAB NURSE this morning found pt on the floor of the bathroom with dark brown vomit on the floor and dried on her face. Water was running in the sink. Pt was lethargic, not answering questions, or following most commands. It was unclear whether pt lost consciousness or how long she has been down the floor. EMS arrived and found patient's POC at 186. Upon initial presentation to the ED pt was responsive to sternal rub, though would only open her eyes and not answer questions. Pt seen and evaluated in her room where she is alert and oriented to self, time, and place. Complains of chronic right upper extremity and left hand pain In the ED pt was hypothermic at 96.0, tachycardic up to 96, and initially hypotensive at 102/36, satting at 92% on RA. Labs were significant for CPK 844 initial troponin 36.7 with repeat flat at 31.0. No leukocytosis. Stable H&H. No significant electrolyte abnormalities. Renal function WNL. UA negative for UTI. Stool negative for occult blood. Tox screen positive for barbiturates. Tested negative for flu, COVID, RSV. CXR without definite active lung disease. CTA of head and cervical spine negative for acute fractures, intracranial abnormalities, or subluxation. X-ray of forearm, humerus, and hand/wrist bilaterally negative for acute fracture or subluxation. CT of abdomen and pelvis found large amount of stool throughout the colon, otherwise negative for acute abdomen. EKG demonstrated sinus rhythm with first-degree AV block but no evidence of significant ST elevations or depressions. Pt was treated with IVF. Pt will be admitted to the hospital under observation for treatment and further evaluation of acute encephalopathy fall at home. <KATHRYN Paige - Last Filed: 12/23/24 17:16> History obtained via auger mill operator and CATH LAB NURSE at the bedsie 69-year-old Tongan-speaking female with HLD, CVA, insulin-dependent T2DM, HTN, peripheral neuropathy, migraines, and COPD found on the bathroom floor by her CATH LAB NURSE this morning, unknown downtime. Last night, Dexcom alarm showed POC 50, she drank juice and went to bed. CATH LAB NURSE found her lethargic, unresponsive to questions, with dark brown vomit on the floor and dried on her face. EMS noted POC 186. ED Course: * Vitals: Hypothermic (96.0?F), tachycardic (96), hypotensive (102/36), SpO? 92% RA * Labs: CPK 844, troponin 36.7 ? 31.0, no leukocytosis, stable H&H, normal renal function, normal electrolytes, UA negative, stool negative for OB, tox screen positive for barbiturates * Imaging: CXR, CTA head/c-spine, extremity X-rays negative, CT A/P shows large stool burden * EKG: Sinus rhythm, 1st-degree AV block, no acute ischemia * Treatment: IV fluids * She is now fully lucid <Nick Villagomez MD - Last Filed: 12/24/24 10:32> Review of Systems 2 Review of Systems: Negative except for that which is stated in the HPI. <KATHRYN Paige - Last Filed: 12/23/24 17:16> [facility] Medical History: Medical History Seizure disorder JOSÉ (obstructive sleep apnea) Delusions Major neurocognitive disorder Chest pain Dyspnea on exertion COVID-19 GERD (gastroesophageal reflux disease) DJD (degenerative joint disease) COPD (chronic obstructive pulmonary disease) Bipolar disorder CTS (carpal tunnel syndrome) Hx of rheumatoid arthritis Diabetic neuropathy Urinary incontinence Aneurysm of middle cerebral artery Pulmonary nodules CHF (congestive heart failure) Palpitations Migraine History of COVID-19 Mild aortic stenosis Asthma Insulin dependent type 2 diabetes mellitus Mixed hyperlipidemia Mood disorder Essential hypertension <KATHRYN Paige - Last Filed: 12/23/24 17:16> Family History: Family History Mother Myocardial infarction Father Myocardial infarction Sister Breast cancer Brother Spleen cancer <KATHRYN Paige - Last Filed: 12/23/24 17:16> Surgical History: Surgical History No pertinent past surgical history Hx of cataract surgery H/O: hysterectomy Hx of cholecystectomy History of carpal tunnel release <KATHRYN Paige - Last Filed: 12/23/24 17:16> Social History: Social History Household Members: None Housing: Apartment Do you presently have visiting nurse or other home services: Yes (pattern designer) Unable to assess alcohol history related to: Unable to respond Alcohol intake: never Comment: report given by Cleo menendez Patient Tobacco Use Status: Never used Tobacco Tobacco use type: Cigarette Cigarette Packs Per Day: 0.2 Cigarettes Per Day: 4.0 Years Smoked: 8493-9363 e-Cigarette/Vaping Use: Never Used Second Hand Smoke Exposure: No Use of substances other than those prescribed or required for medical reasons: No Currently Displaying Signs/Symptoms of Drug Intoxication Withdrawal: No Have you been hit, kicked, punched, or otherwise hurt by someone within the past year? If so, by whom?: No Do you feel safe in your current relationship?: Yes Is there a partner from a previous relationship who is making you feel unsafe now?: No Are you made to feel afraid or neglected: No Advance Directives: Yes Advance Directives on File: Yes Advance Directives Date on File: 11/20/23 Do you have a plan to hurt others: No Plan Recently lost weight without trying: No Eating poorly because of decreased appetite: No Nutrition Risks: No Nutritional Risk Patient : No : No Poor oral hygiene: No service: No Current occupational status: retired Sexual orientation: Straight/Heterosexual <KATHRYN Paige - Last Filed: 12/23/24 17:16> Meds Allergies/Adverse reactions: Allergies Allergy/AdvReac Type Severity Reaction Status Date / Time Penicillins Allergy Mild Swelling Verified 12/23/24 11:31 <KATHRYN Paige - Last Filed: 12/23/24 17:16> Home medications: Home Medications ?Medication ?Instructions ?Recorded ?Confirmed ?Last Taken ?Type blood sugar diagnostic (OneTouch #10 ea 09/27/22 10/20/23 12/15/22 History Ultra Test strips) lancets 33 gauge (NephRx CorporationTouch Delica #100 ea 09/27/22 10/20/23 12/15/22 History Plus Lancet) [id number] 1 tab PO Q6H PRN Headache 10/17/23 12/23/24 12/22/24 History 50 mg-325 mg-40 mg tablet docusate sodium 100 mg capsule 100 mg PO BID 11/16/23 12/23/24 12/22/24 History sennosides 8.6 mg tablet (senna) 8.6 mg PO DAILY 11/16/23 12/23/24 12/22/24 History amitriptyline 150 mg tablet 150 mg PO BEDTIME 04/11/24 12/23/24 12/22/24 History amitriptyline 50 mg tablet 50 mg PO BEDTIME 04/11/24 10/26/24 10/25/24 History gabapentin 300 mg capsule 300 mg PO TID 04/11/24 12/23/24 12/22/24 History insulin glargine 100 unit/mL 30 unit subcut BEDTIME 04/11/24 12/23/24 12/22/24 History subcutaneous solution (Lantus U-100 Insulin) fluticasone fur. 100 mcg-umeclid 1 ea inhalation DAILY 10/26/24 12/23/24 12/22/24 History 62.5 mcg-vilant 25 mcg inhalat.powder (Trelegy Ellipta) tramadol 50 mg tablet 50 mg PO Q8H PRN Pain 10/26/24 12/23/24 12/22/24 History clonazepam 0.5 mg tablet 0.5 mg PO TID PRN Pain 12/23/24 12/23/24 12/22/24 History duloxetine 20 mg capsule,delayed 20 mg PO DAILY 12/23/24 Unknown History release loratadine 10 mg tablet 10 mg PO DAILY 12/23/24 Unknown History metformin 500 mg tablet,extended 500 mg PO DAILY 12/23/24 12/23/24 12/22/24 History release 24 hr metoclopramide HCl 10 mg tablet 10 mg PO QID 12/23/24 Unknown History metoprolol tartrate 25 mg tablet 25 mg PO DAILY 12/23/24 Unknown History montelukast 10 mg tablet 10 mg PO BEDTIME 12/23/24 Unknown History potassium chloride 20 mEq 20 meq PO DAILY 12/23/24 12/23/24 12/22/24 History tablet,extended release(part/cryst) <KATHRYN Paige - Last Filed: 12/23/24 17:16> Physical Exam 2 Vital Signs and Narrative: Vital Signs: Last Vital Signs Temp 96 F L 12/23/24 11:15 Pulse 91 12/23/24 13:52 Resp 12 12/23/24 13:52 BP 149/67 H 12/23/24 13:52 Pulse Ox 95 12/23/24 13:52 O2 Del Method Room Air 12/23/24 13:52 BMI result Body Mass Index 30.5 <KATHRYN Paige - Last Filed: 12/23/24 17:16> General: AOx3, no acute distress Resp: CTA bilaterally CVS: S1, S2, RRR GI: +BS, NT, no distention Skin: Warm, dry Neuro: Cranial nerves II-XII grossly intact bilaterally. Motor grossly intact bilaterally Extremities: No edema Psych: Appropriate affect <KATHRYN Paige - Last Filed: 12/23/24 17:16> General: AOx3, no acute distress Resp: CTA bilaterally CVS: S1, S2, RRR GI: +BS, NT, no distention Skin: Warm, dry Neuro: Cranial nerves II-XII grossly intact bilaterally. Motor grossly intact bilaterally Extremities: No edema Psych: Appropriate affect <Nick Villagomez MD - Last Filed: 12/24/24 10:32> Results Labs CBC and Chem 7: 12/24/24 06:38 12/24/24 06:38 <KATHRYN Paige - Last Filed: 12/23/24 17:16> Labs: Laboratory Results - last 24 hr 12/23/24 12/23/24 12/23/24 10:42 10:56 11:06 MCV 80.4 MCH 24.7 L MCHC 30.7 L RDW 17.2 H Plt Count 223 MPV 10.5 Immature Gran % (Auto) 0.3 Neut % (Auto) 85.5 H Lymph % (Auto) 9.2 L [place] % (Auto) 4.7 Eos % (Auto) 0.0 Baso % (Auto) 0.3 Lymph # (Auto) 0.9 L [place] # (Auto) 0.5 Eos # (Auto) 0.0 Baso # (Auto) 0.0 Abs Immat Gran (auto) 0.03 Absolute Neuts (auto) 8.5 H Absolute Nucleated RBC 0.000 Nucleated RBC % (auto) 0.0 PT 11.3 INR 1.0 VBG pH 7.34 VBG pCO2 52 VBG pO2 38 VBG HCO3 29 H VBG O2 Saturation 53.0 VBG Base Excess 2.4 Anion Gap 11 L Estim Creat Clear Calc TNP Estimated GFR > 60 POC Glucose 117 H Random Glucose 119 H Lactic Acid 1.9 Calcium 8.9 Magnesium 1.6 Total Bilirubin 0.2 AST 40 H ALT 18 Alkaline Phosphatase 89 Ammonia 26 Total Creatine Kinase 844 H Total Protein 7.8 Albumin 3.9 Lipase 15 Urine Color Urine Appearance Urine pH Ur Specific [place] Urine Protein Urine Glucose (UA) Urine Ketones Urine Blood Urine Nitrite Ur Leukocyte Esterase Urine RBC Urine WBC Ur Squamous Epith Cells Urine Bacteria Hyaline Casts Stool Occult Blood Urine Opiates Screen Ur Buprenorphine Scrn Ur Oxycodone Screen Urine Methadone Screen Urine Fentanyl Screen Ur Barbiturates Screen Ur Phencyclidine Scrn Ur Amphetamines Screen U Benzodiazepines Scrn Urine Cocaine Screen U Marijuana (THC) Screen 12/23/24 13:52 MCV MCH MCHC RDW Plt Count MPV Immature Gran % (Auto) Neut % (Auto) Lymph % (Auto) [place] % (Auto) Eos % (Auto) Baso % (Auto) Lymph # (Auto) [place] # (Auto) Eos # (Auto) Baso # (Auto) Abs Immat Gran (auto) Absolute Neuts (auto) Absolute Nucleated RBC Nucleated RBC % (auto) PT INR VBG pH VBG pCO2 VBG pO2 VBG HCO3 VBG O2 Saturation VBG Base Excess Anion Gap Estim Creat Clear Calc Estimated GFR POC Glucose Random Glucose Lactic Acid Calcium Magnesium Total Bilirubin AST ALT Alkaline Phosphatase Ammonia Total Creatine Kinase Total Protein Albumin Lipase Urine Color Yellow Urine Appearance Clear Urine pH 5.5 Ur Specific [place] 1.015 Urine Protein Negative Urine Glucose (UA) Negative Urine Ketones Negative Urine Blood Negative Urine Nitrite Negative Ur Leukocyte Esterase Trace H Urine RBC 0-2 Urine WBC 0-5 Ur Squamous Epith Cells 3-5 Urine Bacteria None Seen Hyaline Casts 0-2 Stool Occult Blood NEGATIVE Urine Opiates Screen Not Detected Ur Buprenorphine Scrn Not Detected Ur Oxycodone Screen Not Detected Urine Methadone Screen Not Detected Urine Fentanyl Screen Not Detected Ur Barbiturates Screen POSITIVE H Ur Phencyclidine Scrn Not Detected Ur Amphetamines Screen Not Detected U Benzodiazepines Scrn Not Detected Urine Cocaine Screen Not Detected U Marijuana (THC) Screen Not Detected <KATHRYN Paige - Last Filed: 12/23/24 17:16> Imaging Radiologist's Impressions: Impressions Chest X-Ray 12/23/24 11:00 IMPRESSION: 1. Somewhat limited exam due to mild rotation. 2. Cardiomegaly. 3. No definite active lung disease. Electronically signed by: Gt Blum MD 12/23/2024 11:30 AM EDT RP Head CT 12/23/24 12:44 IMPRESSION: No acute intracranial abnormality. No fractures. Electronically signed by: Gt Blum MD 12/23/2024 02:36 PM EDT RP Abdomen/Pelvis CT 12/23/24 12:47 IMPRESSION: Large amount of stool throughout the colon. Electronically signed by: Jerry Steele MD 12/23/2024 02:39 PM EDT RP Forearm X-Ray 12/23/24 12:48 IMPRESSION: Osteopenia. No evidence of fracture of the right hand, wrist, or forearm. Electronically signed by: Jerry Steele MD 12/23/2024 01:46 PM EDT RP Hand/Wrist X-Ray 12/23/24 12:48 IMPRESSION: Osteopenia. No evidence of fracture of the right hand, wrist, or forearm. Electronically signed by: Jeryr Steele MD 12/23/2024 01:46 PM EDT RP Humerus X-Ray 12/23/24 12:48 IMPRESSION: No evidence of fracture of the right elbow or humerus. Electronically signed by: Jerry Steele MD 12/23/2024 01:47 PM EDT RP Hand/Wrist X-Ray 12/23/24 12:50 IMPRESSION: Osteopenia. No evidence of acute fracture of the left hand or wrist. Electronically signed by: Jerry Steele MD 12/23/2024 01:44 PM EDT RP Elbow X-Ray 12/23/24 13:05 IMPRESSION: No evidence of fracture of the right elbow or humerus. Electronically signed by: Jerry Steele MD 12/23/2024 01:47 PM EDT RP Cervical Spine CT 12/23/24 13:30 IMPRESSION: 1. No CT evidence of acute cervical spine fracture or injury. 2. Stable moderate to severe degenerative spondylosis, most significant C5-6 and C6-7. Electronically signed by: Gt Blum MD 12/23/2024 02:43 PM EDT RP <KATHRYN Paige - Last Filed: 12/23/24 17:16> Assessment and Plan (1) Fall: Status: Acute <KATHRYN Paige - Last Filed: 12/23/24 17:16> Pt is a 69-year-old Tongan-speaking female with a PMH significant for?HLD, CVA, insulin-dependent type 2 diabetes, HTN, peripheral neuropathy, migraines, and COPD who presents to the ED with?after being found on the bathroom floor by CATH LAB NURSE this morning with unknown downtime. Pt will be admitted to the hospital under observation for treatment and further evaluation of acute encephalopathy fall at home. Acute metabolic encephalopathy in the setting of fall at home Pt initially lethargic, altered, not following commands Found on the floor in the bathroom with unknown downtime Pt reports hypoglycemia of 50 the night prior Unclear etiology: Vasovagal vs hypoglycemia vs orthostatics vs cardiogenic Pt received IVF in the ED Will check orthostatics Monitor on software consultant POCs Monitor mentation, currently AO x3 Elevated CPK CPK 844 time of presentation In the setting of fall at home with unknown downtime Pt received IVF in the ED Follow CPK, creatinine Dark colored vomit Pt currently with no abdominal complaints CT of abd/pelvis negative for acute abdomen, stool negative for occult blood Antiemetics Monitor H&H Supportive care for now COPD Not in acute exacerbation Continue home inhalers Insulin-dependent type [address] sliding scale insulin Continue Lantus Diabetic diet HLD Continue statin Migraines Continue Fioricet Chronic musculoskeletal pain Continue amitriptyline, duloxetine, and gabapentin HTN Continue metoprolol Full Code Attending:?Dr. Stubbs DVT Prophylaxis: Lovenox Pt will be admitted to the hospital under observation for treatment and further evaluation of acute metabolic encephalopathy in the setting of fall at home of unclear etiology. Pt will require hospital level care for close monitoring of labs, cardiac function, and mentation. <KATHRYN Paige - Last Filed: 12/23/24 17:16> Quality Stroke Does the patient have a stroke diagnosis?: No <KATHRYN Paige - Last Filed: 12/23/24 17:16> VTE Prior VTE?: No <KATHRYN Paige - Last Filed: 12/23/24 17:16> VTE Risk Level:: Medical - moderate - high <KATHRYN Paige - Last Filed: 12/23/24 17:16> VTE Device Contraindication: Treatment Not Indicated <KATHRYN Paige - Last Filed: 12/23/24 17:16> VTE Drug Contraindication: N/A - Med Ordered <KATHRYN Paige - Last Filed: 12/23/24 17:16>
[2024-12-23 16:44] LABS: Influenza A PCR NEGATIVE (Negative); Influenza B PCR NEGATIVE (Negative); Resp Syncy Virus RNA Qual PCR NEGATIVE (Negative); SARS COV2 PCR INHOUSE NEGATIVE (Negative)
[2024-12-23 16:47] VITALS: BP 174/94; PULSE 89; RESP 16
--- NOTE | 2024-12-23 18:54 | PC.NURSE ---
health and safety tech attempted med rec, family at bedside unable to verify meds, will contact additional family members to confirm meds.
[2024-12-23 19:31] VITALS: BP 143/65; PULSE 92; RESP 16; TEMP 36.8; O2SAT 96
[2024-12-23] MEDS: Acetaminophen 325 MG TABLET 650 MG PO (19:33)
[2024-12-23] MEDS: Enoxaparin Sodium 40 MG/0.4 ML SYRINGE SUBCUT (19:33)
[2024-12-23 19:56] LABS: Glucose, Whole Blood 62 mg/dL (60-115)
--- NOTE | 2024-12-23 20:06 | PC.NURSE ---
HS sugar checked, POC 62, patietn awake/alert/oriented now eating a snack, will recheck sugar before sending upstairs. Admitting RN Faye made aware via tigelmer
[2024-12-23 20:29] LABS: Glucose, Whole Blood 65 mg/dL (60-115)
[2024-12-23] MEDS: Glucose Gel 15 GM GEL..GRAM. PO (20:29)
--- NOTE | 2024-12-23 20:32 | PHA.MEDREC ---
Addendum entered by Nohelia Tyler [facility] 12/23/24 21:07: reviewed by [facility], left meds that patient has consistently filled but not in the last couple months unconfirmed as they were filled but just not picked up, will communicate with provider. Original Note: Pharmacy Consult ? Medication Reconciliation Pharmacy has completed the medication reconciliation. Went and spoke with patient around 1700 and patient had her afternoon UNDERCUTTER OPERATOR and a family member at bedside. The family and UNDERCUTTER OPERATOR were able to confirm some of the patients medications but neither of them knew the patients pm medications or anything about her Lantus (the patients family member said the patient only took the Lantus once a week initially, but did not know anything else about it) and stated the patient has a Pm UNDERCUTTER OPERATOR that does that before the patient goes to bed. The afternoon UNDERCUTTER OPERATOR was able to confirmed the patient is still taking Atorvastatin 80mg tabs at bedtime, claims state that was last filled for 07/21 for 90 days from [facility], called [facility] and they confirmed she last got that 07/23/24 for 90 days and they had it filled back on October 23 and stated the patient never picked it up and it was RTS on 11/07. The patient, family nor afternoon UNDERCUTTER OPERATOR knew anything about the Pm UNDERCUTTER OPERATOR or who he was working out of, they said they would try to figure it out and let us know. I went back around 1900 and the nurse stated family and the UNDERCUTTER OPERATOR left for the day and did not leave any information about the Pm UNDERCUTTER OPERATOR. I utilized claims and lists from [place] and [facility] to confirm the med rec.
--- NOTE | 2024-12-23 20:35 | PC.NURSE ---
Repeat POC 65, given oral glucose, admitting RN made aware.
[2024-12-23 20:53] VITALS: BP 152/70; PULSE 93; RESP 18; TEMP 36.9; O2SAT 95
[2024-12-23 21:06] LABS: Glucose, Whole Blood 117 mg/dL (60-115)
[2024-12-23] MEDS: Milk of Magnesia 30 ML ORAL.SUSP PO (21:42)
[2024-12-24] VITALS (11 sets, daily range): BP systolic 133–153; BP diastolic 56–69; PULSE 68–99; RESP 16–18; TEMP 36.2–36.6; O2SAT 92–98; BMI 30.4
[2024-12-24 07:28] LABS: Hemoglobin 10.2 g/dl (12.0-16.0); Mean Corpuscular Hemoglobin 24.4 pg (27.0-33.0); Mean Corpuscular Volume 81.3 fL (80.0-98.0); Mean Platelet Volume 11.5 fL (9.4-12.3); Platelet Count 208 X10*3/uL (160-400); Red Blood Count 4.18 X10*6/uL (4.20-5.50); Red Cell Distribution Width 17.5 % (11.0-16.0); White Blood Count 6.9 X10*3/uL (4.8-10.8)
[2024-12-24 07:40] LABS: Glucose, Whole Blood 113 mg/dL (60-115)
[2024-12-24 07:45] LABS: Anion Gap 11 (12-20); Blood Urea Nitrogen 11 mg/dL (9-16); Calcium 8.8 mg/dL (8.4-10.2); Carbon Dioxide 30 mmol/L (22-29); Chloride 105 mmol/L (96-108); Creatinine Clr Calc Pharmacy 92.6; Estimated Glomerular Filt Rate > 60; Glucose Random 112 mg/dL (60-115); Potassium 3.7 mmol/L (3.3-5.1); Sodium 142 mmol/L (135-145)
[2024-12-24] MEDS: Sennosides 8.6 MG TABLET PO (08:10)
[2024-12-24] MEDS: Potassium Chloride ER 20 MEQ TAB.ER.PRT PO (08:10)
[2024-12-24] MEDS: Gabapentin 300 MG CAPSULE PO ×3 (08:10→21:56)
[2024-12-24] MEDS: Docusate Sodium 100 MG CAPSULE PO ×2 (08:11→21:56)
[2024-12-24] MEDS: Fluticasone/Umeclidinium/Vilanterol 100/62.5/25 BLST.W.DEV 1 PUFF INHALE (08:43)
--- NOTE | 2024-12-24 09:17 | MHC.CM.PN ---
CM met with Patient at bedside with the assist of Bengali translation and addressed MEDINA with Patient; the original was given to her and a copy has been placed on the chart. 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 Patient is s/p a fall and may benefit from a PT Eval to assist with disposition. CM has initiated and will follow for dc planning. PCP is Dr. Ashwin Arzola and Patient may require assist with transport to home.
[2024-12-24 10:54] LABS: Glucose, Whole Blood 193 mg/dL (60-115)
[2024-12-24] MEDS: Lactated Ringers 1,000 ML 100 ML IVCONT ×2 (11:23→21:56)
[2024-12-24] MEDS: Insulin Lispro 100 UNIT/ML 3 ML VIAL SUBCUT ×2 (11:23→16:14)
--- NOTE | 2024-12-24 12:47 | MHC.CM.PN ---
Patient has been switched from OBSERVATION to INPATIENT; CM met with Patient and Hebrew translation and addressed IMM with her (original was given to Patient and a copy has been placed on the chart).
--- NOTE | 2024-12-24 12:53 | MHC.CM.PN ---
PT is recommending home with services; referrals have been made to [facility]s contracted with [facility]. CM will follow.
--- NOTE | 2024-12-24 13:10 | HO.PM.IMPN ---
Subjective Subjective Date of Service: 12/24/24 Interval History: No issues, overnight, no arrythmia Physical Exam Vital Signs: Vital Signs: Last Vital Signs Temp 97.2 F 12/24/24 12:00 Pulse 94 12/24/24 12:00 Resp 17 12/24/24 12:00 BP 142/67 H 12/24/24 12:00 Pulse Ox 95 12/24/24 12:00 O2 Del Method Room Air 12/24/24 12:00 BMI result Body Mass Index 30.4 General: AO X 3, no acute distress Resp: CTA bilateral CVS: S1,S2,RRR GI: +BS, NT, no distention Skin: No rash Neuro: motor grossly intact Psych: appropriate affect Objective Data Active Medications Acetaminophen (Acetaminophen 325 Mg Tablet) 650 mg PO Q6H PRN PRN Reason: Pain, Mild 1-3,fever,headache Last Admin: 12/23/24 19:33 Dose: 650 mg Documented By: SATURNINO Acetaminophen/Butalbital/Caffeine (Butalb/Acetamin/Caff 50/325/40 Tablet) 1 tab PO Q6H PRN PRN Reason: Headache Amitriptyline HCl (Amitriptyline Hcl 50 Mg Tablet) 150 mg PO BEDTIME ISIAH Atorvastatin Calcium (Atorvastatin Calcium 80 Mg Tablet) 80 mg PO BEDTIME ISIAH Calcium Carbonate (Calcium Carbonate 750 Mg Tab.Chew) 750 mg PO Q4H PRN PRN Reason: Heartburn Dextrose (Dextrose 50 % 25 Gm/50 Ml Syringe) 25 gm IVPUSH Q15M PRN; Protocol PRN Reason: per Hypoglycemia Standing Ord. Docusate Sodium (Docusate Sodium 100 Mg Capsule) 100 mg PO BID [facility] Last Admin: 12/24/24 08:11 Dose: 100 mg Documented By: SOFFAA Enoxaparin Sodium (Enoxaparin Sodium 40 Mg/0.4 Ml Syringe) 40 mg SUBCUT Q24H [facility] Last Admin: 12/23/24 19:33 Dose: 40 mg Documented By: SATURNINO Fluticasone/Umeclidinium/Vilanterol (Fluticasone/Umeclidinium/Vilanterol 100/62.5/25 Blst.W.Dev) 1 puff INHALE RDAILY [facility] Last Admin: 12/24/24 08:43 Dose: 1 puff Documented By: VAZQUEZ Gabapentin (Gabapentin 300 Mg Capsule) 300 mg PO TID [facility] Last Admin: 12/24/24 08:10 Dose: 300 mg Documented By: SAMY Glucose (Glucose Gel 15 Gm Gel..Gram.) 15 gm PO Q15M PRN; Protocol PRN Reason: per Hypoglycemia Standing Ord. Last Admin: 12/23/24 20:29 Dose: 15 gm Documented By: GUYTORAYMOND Lactated Ringer's (Lr) 1,000 mls @ 100 mls/hr IVCONT .Q10H [facility] Last Admin: 12/24/24 11:23 Dose: 100 mls/hr Documented By: SAMY Insulin Glargine (Insulin Glargine,Hum.Rec.Anlog 100 Unit/Ml 10 Ml Vial) 10 unit SUBCUT BEDTIME ISIAH Insulin Human Lispro (Insulin Lispro 100 Unit/Ml 3 Ml Vial) 0 unit SUBCUT QIDACHS [facility]; Protocol Last Admin: 12/24/24 11:23 Dose: 2 unit Documented By: SAMY Magnesium Hydroxide (Milk Of Magnesia 30 Ml Oral.Susp) 30 ml PO DAILY PRN PRN Reason: Constipation Last Admin: 12/23/24 21:42 Dose: 30 ml Documented By: UNIQUE Magnesium Hydroxide (Milk Of Magnesia 30 Ml Oral.Susp) 30 ml PO BID PRN PRN Reason: Constipation Melatonin (Melatonin 3 Mg Tablet) 6 mg PO BEDTIME PRN PRN Reason: Insomnia Metformin HCl (Metformin Hcl Er 500 Mg Tab.Er.24h) 500 mg PO DAILY [facility] Ondansetron HCl (Ondansetron Hcl 4 Mg/2 Ml Vial) 4 mg IVPUSH Q8H PRN PRN Reason: Nausea and Vomiting Polyethylene Glycol (Polyethylene Glycol 3350 17 Gm Powd.Pack) 17 gm PO DAILY PRN PRN Reason: Constipation Potassium Chloride (Potassium Chloride Er 20 Meq Tab.Er.Prt) 20 meq PO DAILY [facility] Last Admin: 12/24/24 08:10 Dose: 20 meq Documented By: SAMY Senna (Sennosides 8.6 Mg Tablet) 8.6 mg PO DAILY [facility] Last Admin: 12/24/24 08:10 Dose: 8.6 mg Documented By: SAMY Sodium Chloride (0.9 % Sodium Chloride Flush 3 Ml Syringe) 3 ml IVFLUSH QSHIFT ISIAH Last Admin: 12/24/24 12:02 Dose: Not Given Documented By: SAMY Non-Admin Reason: Previously Administered Labs 12/24/24 06:38 12/24/24 06:38 Labs: Laboratory Results - last 24 hr 12/23/24 12/23/24 12/23/24 10:42 10:56 11:06 MCV MCH MCHC RDW Plt Count MPV Absolute Nucleated RBC Nucleated RBC % (auto) VBG pH 7.34 VBG pCO2 52 VBG pO2 38 VBG HCO3 29 H VBG O2 Saturation 53.0 VBG Base Excess 2.4 Anion Gap Estim Creat Clear Calc Estimated GFR POC Glucose 117 H Random Glucose Calcium Total Creatine Kinase Lipase 15 Urine Color Urine Appearance Urine pH Ur Specific [place] Urine Protein Urine Glucose (UA) Urine Ketones Urine Blood Urine Nitrite Ur Leukocyte Esterase Urine RBC Urine WBC Ur Squamous Epith Cells Urine Bacteria Hyaline Casts Stool Occult Blood Urine Opiates Screen Ur Buprenorphine Scrn Ur Oxycodone Screen Urine Methadone Screen Urine Fentanyl Screen Ur Barbiturates Screen Ur Phencyclidine Scrn Ur Amphetamines Screen U Benzodiazepines Scrn Urine Cocaine Screen U Marijuana (THC) Screen Influenza Type A (PCR) Influenza Type B (PCR) RSV RNA Qual (PCR) SARS-CoV-2 RNA (RT-PCR) 12/23/24 12/23/24 12/23/24 13:52 16:01 19:48 MCV MCH MCHC RDW Plt Count MPV Absolute Nucleated RBC Nucleated RBC % (auto) VBG pH VBG pCO2 VBG pO2 VBG HCO3 VBG O2 Saturation VBG Base Excess Anion Gap Estim Creat Clear Calc Estimated GFR POC Glucose 62 Random Glucose Calcium Total Creatine Kinase Lipase Urine Color Yellow Urine Appearance Clear Urine pH 5.5 Ur Specific [place] 1.015 Urine Protein Negative Urine Glucose (UA) Negative Urine Ketones Negative Urine Blood Negative Urine Nitrite Negative Ur Leukocyte Esterase Trace H Urine RBC 0-2 Urine WBC 0-5 Ur Squamous Epith Cells 3-5 Urine Bacteria None Seen Hyaline Casts 0-2 Stool Occult Blood NEGATIVE Urine Opiates Screen Not Detected Ur Buprenorphine Scrn Not Detected Ur Oxycodone Screen Not Detected Urine Methadone Screen Not Detected Urine Fentanyl Screen Not Detected Ur Barbiturates Screen POSITIVE H Ur Phencyclidine Scrn Not Detected Ur Amphetamines Screen Not Detected U Benzodiazepines Scrn Not Detected Urine Cocaine Screen Not Detected U Marijuana (THC) Screen Not Detected Influenza Type A (PCR) NEGATIVE Influenza Type B (PCR) NEGATIVE RSV RNA Qual (PCR) NEGATIVE SARS-CoV-2 RNA (RT-PCR) NEGATIVE 12/23/24 12/23/24 12/24/24 20:21 20:59 06:38 MCV 81.3 MCH 24.4 L MCHC 30.0 L RDW 17.5 H Plt Count 208 MPV 11.5 Absolute Nucleated RBC 0.000 Nucleated RBC % (auto) 0.0 VBG pH VBG pCO2 VBG pO2 VBG HCO3 VBG O2 Saturation VBG Base Excess Anion Gap 11 L Estim Creat Clear Calc 92.6 Estimated GFR > 60 POC Glucose 65 117 H Random Glucose 112 Calcium 8.8 Total Creatine Kinase 1398 H Lipase Urine Color Urine Appearance Urine pH Ur Specific [place] Urine Protein Urine Glucose (UA) Urine Ketones Urine Blood Urine Nitrite Ur Leukocyte Esterase Urine RBC Urine WBC Ur Squamous Epith Cells Urine Bacteria Hyaline Casts Stool Occult Blood Urine Opiates Screen Ur Buprenorphine Scrn Ur Oxycodone Screen Urine Methadone Screen Urine Fentanyl Screen Ur Barbiturates Screen Ur Phencyclidine Scrn Ur Amphetamines Screen U Benzodiazepines Scrn Urine Cocaine Screen U Marijuana (THC) Screen Influenza Type A (PCR) Influenza Type B (PCR) RSV RNA Qual (PCR) SARS-CoV-2 RNA (RT-PCR) 12/24/24 12/24/24 07:10 10:50 MCV MCH MCHC RDW Plt Count MPV Absolute Nucleated RBC Nucleated RBC % (auto) VBG pH VBG pCO2 VBG pO2 VBG HCO3 VBG O2 Saturation VBG Base Excess Anion Gap Estim Creat Clear Calc Estimated GFR POC Glucose 113 193 H Random Glucose Calcium Total Creatine Kinase Lipase Urine Color Urine Appearance Urine pH Ur Specific [place] Urine Protein Urine Glucose (UA) Urine Ketones Urine Blood Urine Nitrite Ur Leukocyte Esterase Urine RBC Urine WBC Ur Squamous Epith Cells Urine Bacteria Hyaline Casts Stool Occult Blood Urine Opiates Screen Ur Buprenorphine Scrn Ur Oxycodone Screen Urine Methadone Screen Urine Fentanyl Screen Ur Barbiturates Screen Ur Phencyclidine Scrn Ur Amphetamines Screen U Benzodiazepines Scrn Urine Cocaine Screen U Marijuana (THC) Screen Influenza Type A (PCR) Influenza Type B (PCR) RSV RNA Qual (PCR) SARS-CoV-2 RNA (RT-PCR) Assessment and Plan (1) Syncope: Status: Acute (2) Rhabdomyolysis: Status: Acute Plan Pt is a 69-year-old [place]-speaking female with a PMH significant for?HLD, CVA, insulin-dependent type 2 diabetes, HTN, peripheral neuropathy, migraines, and COPD who presents to the ED with?after being found on the bathroom floor by TECHNOLOGY PROGRAM MANAGER this morning with unknown downtime. Pt will be admitted to the hospital under observation for treatment and further evaluation of acute encephalopathy fall at home. Acute metabolic encephalopathy in the setting of fall at home back to baseline, work up unremarkable continue tele monitor, ivf Elevated CPK CPK 844 high today c/w rhabdom IVF and reassess in the morning Dark colored vomit Pt currently with no abdominal complaints CT of abd/pelvis negative for acute abdomen, stool negative for occult blood Antiemetic Monitor H&H Supportive care for now COPD Not in acute exacerbation Continue home inhalers Insulin-dependent type [address] sliding scale insulin Continue Lantus Diabetic diet HLD Continue statin Migraines Continue Fioricet Chronic musculoskeletal pain Continue amitriptyline, duloxetine, and gabapentin HTN Continue metoprolol Full Code Attending:?Dr. Stubbs DVT Prophylaxis: Lovenox Pt will be admitted to the hospital under observation for treatment and further evaluation of acute metabolic encephalopathy in the setting of fall at home of unclear etiology. Pt will require hospital level care for close monitoring of labs, cardiac function, and mentation. Quality Stroke Does the patient have a stroke diagnosis?: No VTE Prior VTE?: No VTE Risk Level:: Medical - moderate - high VTE Device Contraindication: Treatment Not Indicated VTE Drug Contraindication: N/A - Med Ordered
--- NOTE | 2024-12-24 13:50 | MHC.CM.PN ---
Per Patient's Sister, Patient's address is [address] [place] [address] in [place]. [facility] has accepted Patient and CM will follow.
[2024-12-24] MEDS: Metoprolol Succinate ER 25 MG TAB.ER.24H PO (14:00)
[2024-12-24 15:44] LABS: Glucose, Whole Blood 151 mg/dL (60-115)
[2024-12-24] MEDS: Enoxaparin Sodium 40 MG/0.4 ML SYRINGE SUBCUT (16:34)
[2024-12-24 21:50] LABS: Glucose, Whole Blood 141 mg/dL (60-115)
[2024-12-24] MEDS: Atorvastatin Calcium 80 MG TABLET PO (21:56)
[2024-12-24] MEDS: Melatonin 3 MG TABLET 6 MG PO (21:56)
[2024-12-24] MEDS: Amitriptyline HCl 50 MG TABLET 150 MG PO (21:56)
[2024-12-24] MEDS: Insulin Glargine,Hum.rec.anlog 100 UNIT/ML 10 ML VIAL 10 UNIT SUBCUT (21:57)
[2024-12-24] MEDS: Milk of Magnesia 30 ML ORAL.SUSP PO (21:59)
[2024-12-25] VITALS: BP 149/63; PULSE 83; RESP 18; TEMP 36.5; O2SAT 92
[2024-12-25 04:00] VITALS: BP 147/70; PULSE 92; RESP 18; TEMP 36.2; O2SAT 94
[2024-12-25] MEDS: Lactated Ringers 1,000 ML 100 ML IVCONT (04:54)
[2024-12-25 07:42] VITALS: PULSE 92; RESP 18; O2SAT 93
[2024-12-25] MEDS: Fluticasone/Umeclidinium/Vilanterol 100/62.5/25 BLST.W.DEV 1 PUFF INHALE (07:42)
[2024-12-25 07:53] LABS: Glucose, Whole Blood 113 mg/dL (60-115)
[2024-12-25 08:00] VITALS: BP 167/72; PULSE 82; RESP 18; TEMP 36.2; O2SAT 96
[2024-12-25] MEDS: Gabapentin 300 MG CAPSULE PO ×2 (09:01→15:50)
[2024-12-25] MEDS: Sennosides 8.6 MG TABLET PO (09:01)
[2024-12-25] MEDS: Potassium Chloride ER 20 MEQ TAB.ER.PRT PO (09:01)
[2024-12-25] MEDS: Metoprolol Succinate ER 25 MG TAB.ER.24H PO (09:01)
[2024-12-25] MEDS: Docusate Sodium 100 MG CAPSULE PO (09:02)
--- NOTE | 2024-12-25 09:59 | P.DS_ITS ---
DS: Providers Provider Date of Service: 12/25/24 Date of admission: 12/24/24 12:33 Date of discharge: 12/25/24 Primary care physician: Ashwin Arzola III, MD DS: Diagnosis Discharge Diagnosis (1) Syncope: Status: Acute (2) Rhabdomyolysis: Status: Acute DS: Summary Hospital Course Hospital Course: Admission hpi hief Complaint: Fall at home, AMS Pt is a 69-year-old Frisian-speaking female with a PMH significant for?HLD, CVA, insulin-dependent type 2 diabetes, HTN, peripheral neuropathy, migraines, and COPD who presents to the ED with?after being found on the bathroom floor by BAGGER AND STOCK HANDLER HELPER this morning with unknown downtime. Pt was apparently in her normal state of health yesterday, though Dexcom reader given alarm last night that are POC was 50. Pt called her sister who told her to drink some juice which pt did and then went to bed. Pt has BAGGER AND STOCK HANDLER HELPER coverage in the day and in evening/night, though BAGGER AND STOCK HANDLER HELPER leaves just before bedtime. Pt does not remember events this morning, but BAGGER AND STOCK HANDLER HELPER this morning found pt on the floor of the bathroom with dark brown vomit on the floor and dried on her face. Water was running in the sink. Pt was lethargic, not answering questions, or following most commands. It was unclear whether pt lost consciousness or how long she has been down the floor. EMS arrived and found patient's POC at 186. Upon initial presentation to the ED pt was responsive to sternal rub, though would only open her eyes and not answer questions. Pt seen and evaluated in her room where she is alert and oriented to self, time, and place. Complains of chronic right upp er extremity and left hand pain In the ED pt was hypothermic at 96.0, tachycardic up to 96, and initially hypotensive at 102/36, satting at 92% on RA. Labs were significant for CPK 844 initial troponin 36.7 with repeat flat at 31.0. No leukocytosis. Stable H&H. No significant electrolyte abnormalities. Renal function WNL. UA negative for UTI. Stool negative for occult blood. Tox screen positive for barbiturates. Tested negative for flu, COVID, RSV. CXR without definite active lung disease. CTA of head and cervical spine negative for acute fractures, intracranial abnormalities, or subluxation. X-ray of forearm, humerus, and hand/wrist bilaterally negative for acute fracture or subluxation. CT of abdomen and pelvis found large amount of stool throughout the colon, otherwise negative for acute abdomen. EKG demonstrated sinus rhythm with first-degree AV block but no evidence of significant ST elevations or depressions. Pt was treated with IVF. Pt will be admitted to the hospital under observation for treatment and further evaluation of acute encephalopathy fall at home. <KATHRYN Paige - Last Filed: 12/23/24 17:16> History obtained via sheet pile driver operator and BAGGER AND STOCK HANDLER HELPER at the bedsie 69-year-old Frisian-speaking female with HLD, CVA, insulin-dependent T2DM, HTN, peripheral neuropathy, migraines, and COPD found on the bathroom floor by her BAGGER AND STOCK HANDLER HELPER this morning, unknown downtime. Last night, Dexcom alarm showed POC 50, she drank juice and went to bed. BAGGER AND STOCK HANDLER HELPER found her lethargic, unresponsive to questions, with dark brown vomit on the floor and dried on her face. EMS noted POC 186. Hospital course: Pt is a 69-year-old Frisian-speaking female with a PMH significant for?HLD, CVA, insulin-dependent type 2 diabetes, HTN, peripheral neuropathy, migraines, and COPD who presents to the ED with?after being found on the bathroom floor by BAGGER AND STOCK HANDLER HELPER this morning with unknown downtime, the night before she had sugar of 61 and drank some juice when EMS found her around 930 her sugar was normal. She had no injury, blood presssure were within normal. ECG showed no acidosis. CPK was 844. She was hydrated given IVF and and admitted to telemetry where arrythmia was rule out. Orthostatic BP was unremarkable. She has not had any further episode, her CPK increased the next day to 1398 and given more IVF and the following day it came down to 795. [facility] recommends for home with services. Of note her Lantus during hospitalizatioon was reduced from 30 to 10 units with optimal blood sugar control, her fasting blood sugar is 113, I will therefore reduce her home insulin to 10 and continue metformin Acute metabolic encephalopathy in the setting of fall at home and probable, hypoglycemia--resolved. Elevated CPK, rhabomylsosis, treated with IVF Dark colored vomit x 1 Pt currently with no abdominal complaints CT of abd/pelvis negative for acute abdomen, stool negative for occult blood Antiemetic Monitor H&H Supportive care for now COPD Not in acute exacerbation Continue home inhalers Insulin-dependent type 2 diabetes with hypoglycemia...Reducing Lantus to 10 at night, continue Metformin HLD Continue statin Migraines Continue Fioricet Chronic musculoskeletal pain Continue amitriptyline, duloxetine, and gabapentin HTN Continue metoprolol Full Code DVT Prophylaxis: Lovenox Time Attestation Discharge Coordination Time (in mins): 45 Quality: Safe Use of Opioids Does Pt have an Active Cancer Diagnosis on the Problem List?: No Quality: Stroke Does the patient have a stroke diagnosis?: No Physical Exam Vital Signs: Vital Signs: Last Vital Signs Temp 97.2 F 12/25/24 08:00 Pulse 82 12/25/24 08:00 Resp 18 12/25/24 08:00 BP 167/72 H 12/25/24 08:00 Pulse Ox 96 12/25/24 08:00 O2 Del Method Room Air 12/25/24 08:00 BMI result Body Mass Index 30.4 DS: Data Data Completed and Pending Labs on day of discharge: Laboratory Results - last 24 hr 12/24/24 12/24/24 12/24/24 10:50 15:15 21:46 POC Glucose 193 H 151 H 141 H Total Creatine Kinase 12/25/24 12/25/24 06:14 07:39 POC Glucose 113 Total Creatine Kinase 795 H Discharge Plan Discharge Anticipated Discharge Date/Time: 12/25/24 10:19 Patient Disposition: Home Health Service Discharge Diagnosis: Syncope, hypoglycemia, Rhabdomylosis Referrals: Ashwin Arzola III, MD [Primary Care Provider] - 1 Week Discharge Medications: Continued ibiobsaxls-kusxtupdoryjt-bkgx 50-325-40 mg tablet 1 tab PO Q6H PRN (Reason: Headache) atorvastatin 80 mg Tablet 80 mg PO BEDTIME Qty: 0 0RF sennosides [senna] 8.6 mg tablet 8.6 mg PO DAILY docusate sodium 100 mg capsule 100 mg PO BID tramadol 50 mg tablet 50 mg PO Q8H PRN (Reason: Pain) Trelegy Ellipta 100-62.5-25 mcg blister with device 1 ea inhalation DAILY amitriptyline 150 mg tablet 150 mg PO BEDTIME Rx Instructions: with 50 mg amitriptyline 50 mg tablet 50 mg PO BEDTIME Rx Instructions: with 150 mg gabapentin 300 mg capsule 300 mg PO TID insulin glargine [Lantus U-100 Insulin] 100 unit/mL solution 30 unit subcut BEDTIME metformin 500 mg tablet extended release 24 hr 500 mg PO DAILY clonazepam 0.5 mg tablet 0.5 mg PO TID PRN (Reason: Pain) potassium chloride 20 mEq tablet,ER particles/crystals 20 meq PO DAILY montelukast 10 mg tablet 10 mg PO BEDTIME loratadine 10 mg tablet 10 mg PO DAILY metoclopramide HCl 10 mg tablet 10 mg PO QID metoprolol tartrate 25 mg tablet 25 mg PO DAILY duloxetine 20 mg capsule,delayed release(DR/EC) 20 mg PO DAILY (DME) lancets [OneTouch Delica Plus Lancet] 33 gauge misc See Rx Instructions .ROUTE BID Qty: 100 Rx Instructions: As directed (DME) OneTouch Ultra Test Strip See Rx Instructions .ROUTE BID Qty: 10 Rx Instructions: As directed Diet: Diabetic diet Activity on Discharge: As tolerated Stand Alone Forms: Patient Portal Discharge page Print Language: Frisian Care Plan Goals: recovery from syncope, passing out, hypoglycemia Health Concerns: hypoglycemia syncope rhabdomylsosis Plan of Treatment: see above Assessment: take Lantus 10 units only at night follow up with your doctor in a week
[2024-12-25 11:28] LABS: Glucose, Whole Blood 137 mg/dL (60-115)
[2024-12-25 11:47] VITALS: BP 144/64; PULSE 79; RESP 18; TEMP 36.3; O2SAT 94
--- NOTE | 2024-12-25 13:34 | W.MHC.F2F ---
Service Date Service Date: 12/25/24 Encounter Date of encounter: 12/25/24 Reasons for Services Signs and symptoms assessed: hypoglycemia, syncope Reason for mcc: medication management and teach disease management Homebound: Leaving the home is medically contraindicated at this time without the asist of a device and/or another person due th the listed conditions above and below. Reason homebound: fall risk related to blood pressure changes and weakness related to hospital stay Homebound supporting statement: Homebound due to weakness, risk of fall, tendeency for hypoglycemia, living alone and therfore needs the assistance of another person Certification: Based on the above findings, I certify that this patient is confined to the home and needs intermittent mcc care, physical therapy and/or speech therapy, or continues to need occupational therapy. The patient is under my care, and I have initiated the establishment of the plan of care. The patient will be followed by a physician who will periodically review the plan of care. Time Spent With Patient Time: Total time managing care of this patient today ____ minutes.
--- NOTE | 2024-12-25 14:33 | MHC.CM.PN ---
Addendum entered by Evelyn Newsome 12/25/24 14:57: BLS TRANSPORT BOOKED FOR 1630 HOURS Original Note: PT CLEARED TO DC HOME TODAY CM MET WITH PT WITH A SHOWER ATTENDANT, PT STATES SHE HAS A DAILY VNA FOR INSULIN AND A BIOMEDICAL ENGINEER SHE DOES NOT KNOW THE NAME OF HER VNA CM CALLED [employer]LECTION CLERK MIKE RN AND LEARNED PT IS ACTIVE WITH [facility] CM CALLED [facility] [phone], THEY CONFIRM PT IS ACTIVE WITH THEM PT WILL FAX DCS TO THEM AT [phone] PT WILL DC HOME VIA [facility]
[2024-12-25 15:37] VITALS: BP 131/58; PULSE 80; RESP 18; TEMP 36.4; O2SAT 94
[2024-12-25 16:16] LABS: Glucose, Whole Blood 98 mg/dL (60-115)
[2024-12-25] MEDS: metFORMIN HCl ER 500 MG TAB.ER.24H PO (16:36)
== END 2024-12-25 19:00 | disposition home health service (06) | DRG 637 ==
LOC: HO.ED 16:40 → HO.EDOVER 17:27 → HO.IMC 19:13
PROVIDERS: Physician Assistant; Admitting Provider Student in an Organized Health Care Education/Training Program; Emergency Provider Emergency Medicine; PCP Internal Medicine; Visit Provider Internal Medicine
DX: E11.649 Type 2 diabetes mellitus with hypoglycemia without coma (principal); G93.41 Metabolic encephalopathy; E11.42 Type 2 diabetes mellitus with diabetic polyneuropathy; I10 Essential (primary) hypertension; E78.5 Hyperlipidemia, unspecified; J44.9 Chronic obstructive pulmonary disease, unspecified; G43.909 Migraine, unspecified, not intractable, without status migrainosus; W19.XXXA Unspecified fall, initial encounter; Z20.822 Contact with and (suspected) exposure to COVID-19; Z79.4 Long term (current) use of insulin; Z79.84 Long term (current) use of oral hypoglycemic drugs; Z79.899 Other long term (current) drug therapy
CPT/HCPCS: 0241U; 36415; 70450; 71045; 72125; 73060; 73080; 73090; 73110; 73130; 74177; 80048; 80053; 80307; 81001; 81003; 82140; 82272; 82550; 82803; 82947; 83605; 83690; 83735; 84484; 85025; 85027; 85610; 93005; 94640; 97162; 99285; J1650; J7120; Q9967

== ENCOUNTER → 2024-12-23 11:00 | Outpatient (BNV) | payer OTHER, SELFPAY | PROVIDERS: PCP Internal Medicine; Visit Provider Radiology Diagnostic Radiology | DX: R11.10 Vomiting, unspecified (principal); M54.2 Cervicalgia; R41.82 Altered mental status, unspecified; S59.901A Unspecified injury of right elbow, initial encounter; M79.641 Pain in right hand; M79.642 Pain in left hand; M25.532 Pain in left wrist; M25.531 Pain in right wrist; M79.631 Pain in right forearm; M79.601 Pain in right arm | CPT/HCPCS: 70450; 71045; 72125; 73060; 73080; 73090; 73110; 73130; 74177 ==

== ENCOUNTER → 2024-12-23 11:36 | Outpatient (BNV) | payer OTHER, SELFPAY | PROVIDERS: Admitting Provider Student in an Organized Health Care Education/Training Program; Emergency Provider Emergency Medicine; PCP Internal Medicine; Visit Provider Internal Medicine | DX: I44.0 Atrioventricular block, first degree (principal) | CPT/HCPCS: 93010 ==

== ENCOUNTER → 2024-12-23 17:16 | Outpatient (BNV) | payer OTHER, SELFPAY | PROVIDERS: Admitting Provider Student in an Organized Health Care Education/Training Program; Emergency Provider Emergency Medicine; PCP Internal Medicine; Visit Provider Internal Medicine | DX: R55 Syncope and collapse (principal); M62.82 Rhabdomyolysis; W19.XXXA Unspecified fall, initial encounter | CPT/HCPCS: 99222; 99232; 99239 ==

== ENCOUNTER 2025-02-03 11:05 | Day surgery (SDC) | payer OTHER, SELFPAY ==
[2025-02-03] VITALS (7 sets, daily range): BP systolic 112–152; BP diastolic 49–61; PULSE 78–91; RESP 14–22; TEMP 36.1–37; O2SAT 93–100; BMI 31.2
--- NOTE | ~2025-02-03 | XR_ITS ---
EXAMINATION: XR CHEST CLINICAL INFORMATION: ? esophageal foreign body COMPARISON: 12/23/2024. TECHNIQUE: Frontal view of the chest was obtained. FINDINGS: Mild cardiac enlargement. Mediastinal and hilar contours appear normal. Aortic mural calcifications. The lungs are clear bilaterally. No pneumothorax or effusion. No focal osseous or soft tissue abnormality.No foreign body identified along the expected course of the esophagus. XR/XR chest 1V IMPRESSION: 1. No active pulmonary disease. 2. No foreign body identified along the expected course of the esophagus. If there is high clinical suspicion, CT recommended. Electronically signed by: Gt Blum MD 02/03/2025 12:30 PM EDT
--- NOTE | 2025-02-03 11:06 | ED.GENADULT ---
HPI - General Adult General Chief complaint: Skin/Abscess/Foreign Body Stated complaint: Object Stuck In Throat Time Seen by Provider: 02/03/25 11:18 History of Present Illness ED Provider: Luisa JONES narrative: The patient is a 69-year-old woman who apparently had a sense of choking when she was eating some kind of a root vegetable last night at around 19:00. Since that time she has a persistent sense of something being stuck in her throat. She has been coughing and spitting a lot and trying to vomit since then. She has not been able anything up however. She does not feel that she is able to tolerate water. She feels quite uncomfortable. She did not want to come to the hospital during the night but this morning she allowed her daughter to bring her to the hospital. She has discomfort in her upper chest or lower neck. Related Data Home Medications ?Medication ?Instructions ?Recorded ?Confirmed blood sugar diagnostic (OneTouch #10 ea 09/27/22 10/20/23 Ultra Test strips) lancets 33 gauge (OneTouch Delica #100 ea 09/27/22 10/20/23 Plus Lancet) qojwyptrtt-coxtfsfxlrrmt-dyhgtcbv 1 tab PO Q6H PRN Headache 10/17/23 02/03/25 50 mg-325 mg-40 mg tablet docusate sodium 100 mg capsule 100 mg PO BID 11/16/23 02/03/25 sennosides 8.6 mg tablet (senna) 8.6 mg PO DAILY 11/16/23 02/03/25 amitriptyline 150 mg tablet 150 mg PO BEDTIME 04/11/24 02/03/25 amitriptyline 50 mg tablet 50 mg PO BEDTIME 04/11/24 10/26/24 gabapentin 300 mg capsule 300 mg PO TID 04/11/24 02/03/25 fluticasone fur. 100 mcg-umeclid 1 ea inhalation DAILY 10/26/24 02/03/25 62.5 mcg-vilant 25 mcg inhalat.powder (Trelegy Ellipta) tramadol 50 mg tablet 50 mg PO Q8H PRN Pain 10/26/24 02/03/25 clonazepam 0.5 mg tablet 0.5 mg PO TID PRN Pain 12/23/24 02/03/25 duloxetine 20 mg capsule,delayed 60 mg PO DAILY 12/23/24 02/03/25 release loratadine 10 mg tablet 10 mg PO DAILY 12/23/24 02/03/25 metformin 500 mg tablet,extended 500 mg PO DAILY 12/23/24 02/03/25 release 24 hr metoclopramide HCl 10 mg tablet 10 mg PO QID 12/23/24 02/03/25 metoprolol tartrate 25 mg tablet 25 mg PO DAILY 12/23/24 02/03/25 montelukast 10 mg tablet 10 mg PO BEDTIME 12/23/24 02/03/25 potassium chloride 20 mEq 20 meq PO DAILY 12/23/24 12/23/24 tablet,extended release(part/cryst) budesonide-formoterol HFA 160 inhalation 02/03/25 mcg-4.5 mcg/actuation aerosol inhaler ciclopirox 0.77 % topical gel 1 appl topical BID 02/03/25 02/03/25 famotidine 20 mg tablet 20 mg PO DAILY 02/03/25 02/03/25 furosemide 40 mg tablet (Lasix) 40 mg PO 02/03/25 magnesium oxide 400 mg PO DAILY 02/03/25 02/03/25 pantoprazole 40 mg tablet,delayed 40 mg PO DAILY 02/03/25 02/03/25 release Previous Rx's ?Medication ?Instructions ?Recorded atorvastatin 80 mg tablet 80 mg PO BEDTIME #0 tabs 10/29/23 insulin glargine 100 unit/mL 10 unit (0.1 mL) subcut BEDTIME 12/25/24 subcutaneous solution (Lantus #10 mL U-100 Insulin) fluconazole 100 mg tablet 100 mg PO DAILY #21 tabs 02/03/25 Allergies Allergy/AdvReac Type Severity Reaction Status Date / Time Penicillins Allergy Mild Swelling Verified 02/03/25 11:12 Review of Systems Review of Systems: Yes all other systems are reviewed and are negative [facility] Past Medical History Medical History Seizure disorder JOSÉ (obstructive sleep apnea) Delusions Major neurocognitive disorder Chest pain Dyspnea on exertion COVID-19 GERD (gastroesophageal reflux disease) DJD (degenerative joint disease) COPD (chronic obstructive pulmonary disease) Bipolar disorder CTS (carpal tunnel syndrome) Hx of rheumatoid arthritis Diabetic neuropathy Urinary incontinence Aneurysm of middle cerebral artery Pulmonary nodules CHF (congestive heart failure) Palpitations Migraine History of COVID-19 Mild aortic stenosis Asthma Insulin dependent type 2 diabetes mellitus Mixed hyperlipidemia Mood disorder Essential hypertension Surgical History No pertinent past surgical history Hx of cataract surgery H/O: hysterectomy Hx of cholecystectomy History of carpal tunnel release Family History Family History Mother Myocardial infarction Father Myocardial infarction Sister Breast cancer Brother Spleen cancer Social History Social History Household Members: None Housing: Apartment Do you presently have visiting nurse or other home services: Yes (material stockkeeper yard) Unable to assess alcohol history related to: Unable to respond Alcohol intake: never Comment: report given by Cleo menendez Patient Tobacco Use Status: Never used Tobacco Tobacco use type: Cigarette Cigarette Packs Per Day: 0.2 Cigarettes Per Day: 4.0 Years Smoked: 5784-4740 Smoked in Last 30 Days: No e-Cigarette/Vaping Use: Never Used Second Hand Smoke Exposure: No Use of substances other than those prescribed or required for medical reasons: No Are you DNR?: No Advance Directives: Yes Advance Directives on File: Yes Advance Directives Date on File: 11/20/23 Do you have a plan to hurt others: No Plan service: No Current occupational status: retired Sexual orientation: Straight/Heterosexual Physical Exam ED Vital Signs: Vital Signs - 24 hr 02/03/25 11:06 02/03/25 11:28 02/03/25 13:25 Temperature 97.2 F 98 F Pulse Rate 90 91 83 Respiratory Rate 22 H 14 16 Blood Pressure 150/61 H 136/49 L 112/50 L Pulse Oximetry 97 97 95 Oxygen Delivery Method Room Air Room Air Room Air Oxygen Flow Rate 02/03/25 14:46 02/03/25 15:01 02/03/25 15:16 Temperature 97 F Pulse Rate 83 80 78 Respiratory Rate 18 20 18 Blood Pressure 145/58 H 134/56 L 147/61 H Pulse Oximetry 93 96 100 Oxygen Delivery Method Room Air Room Air Nasal Cannula Oxygen Flow Rate 2 02/03/25 15:31 Temperature 98.6 F Pulse Rate 79 Respiratory Rate 20 Blood Pressure 152/49 H Pulse Oximetry 97 Oxygen Delivery Method Room Air Oxygen Flow Rate BMI result Body Mass Index 31.2 Const Other: The patient is a chronically ill-appearing 69-year-old woman who was awake and alert and frequently retching. HENMT Other: The posterior pharynx is clear. No visible foreign body in the back of the mouth. Mucous membranes are moist. Eyes General: appearance normal, both eyes and all related structures Neck Other: Moving her neck easily, no neck swelling Resp Effort & Inspection: normal respiratory effort Auscultation: clear to auscultation bilaterally Cardio Rate: regular rate Rhythm: regular rhythm Heart sounds: S1 normal heart sound present and S2 normal heart sound present GI Other: abdomen is soft and nontender Skin Other: Skin is pale and dry Neuro Other: The patient is awake and alert with a normal mental status. Cranial nerves are grossly intact. She moves her extremities symmetrically and appropriately. Extrem Other: No peripheral edema Course Course Course Narrative: This is a Rapid Medical Exam performed in triage by Eleanor Ahn PA-C. Full HPI, ROS and PE to be performed by primary ED provider. 69 yo F w/PMHx JOSÉ, seizures, diabetes, RA, CHF, migraines, GERD, COPD presenting to the ED c/o SOB & inability to swallow since 1900 last night after swallowing a root vegetable. Unable to drink water or take meds PE: Emesis bag in hand. Uvula midline, talking in complete sentences Plan: Eval by main ED provider Medications Administered Discontinued Medications Generic Name Dose Route Start Last Admin Trade Name Freq PRN Reason Stop Dose Admin Glucagon 0.5 mg 02/03/25 11:56 02/03/25 12:16 Glucagon Hcl 1 Mg Vial IVPUSH 02/03/25 11:57 0.5 mg ONCE ONE Administration Lidocaine HCl 10 ml 02/03/25 11:23 02/03/25 11:26 Lidocaine Hcl 2 % Urojet 10 Ml Jel.Pf.Alfredo TOPICAL 02/03/25 11:24 10 ml ONCE ONE Administration Lidocaine/Diphenhydr/Alum/Mg/Simeth 10 ml 02/03/25 14:44 02/03/25 15:20 Mag&Al/Sim/Diphenhyd/Lidocaine 10 Ml Oral.Susp PO 02/03/25 14:45 10 ml ONCE ONE Administration Protocol Ondansetron HCl 4 mg 02/03/25 11:57 02/03/25 12:28 Ondansetron Hcl 4 Mg/2 Ml Vial IVPUSH 02/03/25 11:58 4 mg ONCE ONE Administration Ondansetron HCl 4 mg 02/03/25 15:03 02/03/25 15:05 Ondansetron Hcl 4 Mg/2 Ml Vial IVPUSH 02/03/25 15:04 4 mg ONCE ONE Administration Procedures Laryngoscopy Sedation/Analgesia: viscous lidocaine Technique: video laryngoscope (fiberoptic video nasal laryngoscope) Findings: normal larynx, normal vocal cords and no foreign body Complications: none Post-procedure exam: awake, alert Medical Decision Making Medical Decision Making [facility] Narrative: The patient is a 69-year-old woman who comes to the emergency room with a sensation of something stuck in her throat. She says that she was eating some root vegetables last night and felt that this might have gotten stuck. The patient seemed to be gagging a lot which made me think that this could perhaps be an upper airway obstruction. I was able to get a fairly good view of her posterior pharynx simply using a tongue depressor and direct visualization. There was no foreign body seen. I then proceeded with fiberoptic nasopharyngoscopy. After applying lidocaine gel to the right nostril I introduced a nasopharyngoscope through the right nostril. I was able to visualize the vocal cords and the supraglottic area which looked normal and without any foreign body. This leads me with a conclusion that the patient probably has an esophageal impaction. The patient was given a dose of IV glucagon. I contacted Dr. Jama of Gastroenterology and the patient will be taken to the endoscopy suite at 14:00 The patient was stable until she was sent to the endoscopy suite. She underwent endoscopy which revealed a food impaction which was relieved by Dr. Jama. The patient was discharged from endoscopy area. Lab Data 02/03/25 12:18 02/03/25 12:18 Labs: Lab Results 02/03/25 Range/Units 12:18 WBC 7.2 (4.8-10.8) X10*3/uL RBC 4.40 (4.20-5.50) X10*6/uL Hgb 10.8 L (12.0-16.0) g/dl Hct 35.4 L (37.0-47.0) % MCV 80.5 (80.0-98.0) fL MCH 24.5 L (27.0-33.0) pg MCHC 30.5 L (31.0-35.0) g/dl RDW 17.6 H (11.0-16.0) % Plt Count 225 (160-400) X10*3/uL MPV 10.2 (9.4-12.3) fL Immature Gran % (Auto) 0.4 (0.0-0.4) % Neut % (Auto) 72.4 (45-73) % Lymph % (Auto) 15.9 L (20-40) % [place] % (Auto) 8.8 (2-11) % Eos % (Auto) 2.1 (0-4) % Baso % (Auto) 0.4 (0-2) % Lymph # (Auto) 1.1 L (1.2-4.9) X10*3/uL [place] # (Auto) 0.6 (0.1-1.2) X10*3/uL Eos # (Auto) 0.2 (0.0-0.4) X10*3/uL Baso # (Auto) 0.0 (0.0-0.2) X10*3/uL Abs Immat Gran (auto) 0.03 (0.00-0.03) X10*3/uL Absolute Neuts (auto) 5.2 (2.0-8.3) x10*3/uL Absolute Nucleated RBC 0.000 (0.0-0.012) X10*3/uL Nucleated RBC % (auto) 0.0 (0.0-0.2) /100WBC Sodium 141 (135-145) mmol/L Potassium 3.9 (3.3-5.1) mmol/L Chloride 104 (96-108) mmol/L Carbon Dioxide 33 H (22-29) mmol/L Anion Gap 8 L (12-20) BUN 12 (9-16) mg/dL Creatinine 0.64 (0.5-1.4) mg/dL Estim Creat Clear Calc 78.8 Estimated GFR > 60 Random Glucose 114 (60-115) mg/dL Calcium 9.5 D (8.4-10.2) mg/dL Magnesium 1.6 (1.6-2.6) mg/dL Total Bilirubin 0.4 (0.0-1.0) mg/dL Direct Bilirubin 0.2 (0.0-0.5) mg/dL AST 26 (5-31) U/L ALT 17 (0-31) U/L Alkaline Phosphatase 96 (39-117) U/L Total Protein 7.7 (6.5-8.0) g/dL Albumin 4.1 (3.5-5.0) g/dL Discharge Plan Discharge Clinical Impression: Food bolus obstruction of intestine Patient Disposition: Home, Self-Care Discharge Date/Time: 02/03/25 14:10
[2025-02-03] MEDS: Lidocaine HCl 2 % Urojet 10 ML JEL.PF.APP TOPICAL (11:26)
--- NOTE | 2025-02-03 11:26 | PC.NURSE ---
pt on continuous telemetry, dr reyes at the bedside, this rn to assist with bedside glidescope. pt airway intact at this time
--- NOTE | 2025-02-03 11:52 | ECG_ITS ---
Test Reason : SOB Blood Pressure : */* mmHG Vent. Rate : 90 BPM Atrial Rate : 90 BPM P-R Int : 162 ms QRS Dur : 84 ms QT Int : 374 ms P-R-T Axes : 41 -11 39 degrees QTcB Int : 457 ms Normal sinus rhythm Normal ECG When compared with ECG of 23-Dec-2024 11:36, SC interval has decreased Referred By: Abbe Moran Electronically Signed By: GINGER MARLEY
[2025-02-03] MEDS: glucagon HCL 1 MG VIAL 0.5 MG IVPUSH (12:16)
[2025-02-03 12:23] LABS: MANUAL DIFF FLAG NO
[2025-02-03 12:25] LABS: Basophils Percent Auto 0.4 % (0-2); Eosinophils Absolute Auto 0.2 X10*3/uL (0.0-0.4); Eosinophils Percent Auto 2.1 % (0-4); Hematocrit 35.4 % (37.0-47.0); Hemoglobin 10.8 g/dl (12.0-16.0); Imm Gran Abs Auto 0.03 X10*3/uL (0.00-0.03); Imm Gran Pct Auto 0.4 % (0.0-0.4); Lymphocytes Absolute Auto 1.1 X10*3/uL (1.2-4.9); Lymphocytes Percent Auto 15.9 % (20-40); Mean Corpuscular HGB Conc 30.5 g/dl (31.0-35.0); Mean Corpuscular Hemoglobin 24.5 pg (27.0-33.0); Mean Corpuscular Volume 80.5 fL (80.0-98.0); Mean Platelet Volume 10.2 fL (9.4-12.3); Monocytes Absolute Auto 0.6 X10*3/uL (0.1-1.2); Monocytes Percent Auto 8.8 % (2-11); Neutrophils Absolute Auto 5.2 x10*3/uL (2.0-8.3); Neutrophils Percent Auto 72.4 % (45-73); Platelet Count 225 X10*3/uL (160-400); Red Cell Distribution Width 17.6 % (11.0-16.0); White Blood Count 7.2 X10*3/uL (4.8-10.8)
[2025-02-03] MEDS: ondansetron HCL 4 MG/2 ML VIAL IVPUSH ×2 (12:28→15:05)
[2025-02-03 12:40] LABS: Alanine Aminotransferase 17 U/L (0-31); Albumin Level 4.1 g/dL (3.5-5.0); Alkaline Phosphatase 96 U/L (39-117); Anion Gap 8 (12-20); Aspartate Amino Transferase 26 U/L (5-31); Bilirubin Direct 0.2 mg/dL (0.0-0.5); Bilirubin Total 0.4 mg/dL (0.0-1.0); Blood Urea Nitrogen 12 mg/dL (9-16); Calcium 9.5 mg/dL (8.4-10.2); Carbon Dioxide 33 mmol/L (22-29); Chloride 104 mmol/L (96-108); Creatinine Clr Calc Pharmacy 78.8; Estimated Glomerular Filt Rate > 60; Glucose Random 114 mg/dL (60-115); Magnesium 1.6 mg/dL (1.6-2.6); Potassium 3.9 mmol/L (3.3-5.1); Sodium 141 mmol/L (135-145); Total Protein 7.7 g/dL (6.5-8.0)
--- NOTE | 2025-02-03 13:01 | PC.NURSE ---
verbal nurse to nurse report given to gideon VERNON in endoscopy
--- NOTE | 2025-02-03 13:29 | PC.NURSE ---
pt to endoscopy via endoscopy staff transport
--- NOTE | 2025-02-03 13:35 | PM.GICN ---
History of Present Illness Data of Consult Service Date: 02/03/25 Requesting physician: Abbe Moran Primary Care Provider: Ashwin Arzola III, MD HPI Reason for consult: Food impaction 69 YF w/PMHx JOSÉ, seizures, diabetes, RA, CHF, migraines, GERD, COPD came to [facility] [place] [facility] today with c/o SOB & inability to swallow since 1900 last night. Pt complains of dysphagia after swallowing a root vegetable last night and has been unable to drink water or take meds Pt denies past hx of dysphagia or food impaction. States she had an EGD in the past (No report in [facility]) Review of Systems Review of Systems: Negative except for that which is stated in the HPI. [facility] Past Medical History Medical History Seizure disorder JOSÉ (obstructive sleep apnea) Delusions Major neurocognitive disorder Chest pain Dyspnea on exertion COVID-19 GERD (gastroesophageal reflux disease) DJD (degenerative joint disease) COPD (chronic obstructive pulmonary disease) Bipolar disorder CTS (carpal tunnel syndrome) Hx of rheumatoid arthritis Diabetic neuropathy Urinary incontinence Aneurysm of middle cerebral artery Pulmonary nodules CHF (congestive heart failure) Palpitations Migraine History of COVID-19 Mild aortic stenosis Asthma Insulin dependent type 2 diabetes mellitus Mixed hyperlipidemia Mood disorder Essential hypertension Family History Family History Mother Myocardial infarction Father Myocardial infarction Sister Breast cancer Brother Spleen cancer Surgical History Surgical History No pertinent past surgical history Hx of cataract surgery H/O: hysterectomy Hx of cholecystectomy History of carpal tunnel release Social History Social History Household Members: None Housing: Apartment Do you presently have visiting nurse or other home services: 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) Unable to assess alcohol history related to: Unable to respond Alcohol intake: never Comment: report given by Cleo menendez Patient Tobacco Use Status: Never used Tobacco Tobacco use type: Cigarette Cigarette Packs Per Day: 0.2 Cigarettes Per Day: 4.0 Years Smoked: [id number] Smoked in Last 30 Days: No e-Cigarette/Vaping Use: Never Used Second Hand Smoke Exposure: No Use of substances other than those prescribed or required for medical reasons: No Are you DNR?: No Advance Directives: Yes Advance Directives on File: Yes Advance Directives Date on File: 11/20/23 Do you have a plan to hurt others: No Plan service: No Current occupational status: retired Sexual orientation: Straight/Heterosexual Meds Allergies Allergy/AdvReac Type Severity Reaction Status Date / Time Penicillins Allergy Mild Swelling Verified 02/03/25 11:12 Active Medications: Current Medications Sodium Chloride (Ns) 1,000 mls @ 999 mls/hr IV .Q1H1M ISIAH Stop: 02/03/25 14:45 Home Medications ?Medication ?Instructions ?Recorded ?Confirmed ?Last Taken ?Type blood sugar diagnostic (VixloTouch #10 ea 09/27/22 10/20/23 12/15/22 History Ultra Test strips) lancets 33 gauge (VixloTouch Delica #100 ea 09/27/22 10/20/23 12/15/22 History Plus Lancet) [id number] 1 tab PO Q6H PRN Headache 10/17/23 02/03/25 02/02/25 History 50 mg-325 mg-40 mg tablet docusate sodium 100 mg capsule 100 mg PO BID 11/16/23 02/03/25 02/02/25 History sennosides 8.6 mg tablet (senna) 8.6 mg PO DAILY 11/16/23 12/23/24 12/22/24 History amitriptyline 150 mg tablet 150 mg PO BEDTIME 04/11/24 02/03/25 02/02/25 08:00 History amitriptyline 50 mg tablet 50 mg PO BEDTIME 04/11/24 10/26/24 10/25/24 History gabapentin 300 mg capsule 300 mg PO TID 04/11/24 12/23/24 12/22/24 History fluticasone fur. 100 mcg-umeclid 1 ea inhalation DAILY 10/26/24 12/23/24 12/22/24 History 62.5 mcg-vilant 25 mcg inhalat.powder (Trelegy Ellipta) tramadol 50 mg tablet 50 mg PO Q8H PRN Pain 10/26/24 12/23/24 12/22/24 History clonazepam 0.5 mg tablet 0.5 mg PO TID PRN Pain 12/23/24 02/03/25 02/02/25 History duloxetine 20 mg capsule,delayed 60 mg PO DAILY 12/23/24 02/03/25 02/02/25 History release loratadine 10 mg tablet 10 mg PO DAILY 12/23/24 Unknown History metformin 500 mg tablet,extended 500 mg PO DAILY 12/23/24 12/23/24 12/22/24 History release 24 hr metoclopramide HCl 10 mg tablet 10 mg PO QID 12/23/24 Unknown History metoprolol tartrate 25 mg tablet 25 mg PO DAILY 12/23/24 Unknown History montelukast 10 mg tablet 10 mg PO BEDTIME 12/23/24 Unknown History potassium chloride 20 mEq 20 meq PO DAILY 12/23/24 12/23/24 12/22/24 History tablet,extended release(part/cryst) budesonide-formoterol HFA 160 inhalation 02/03/25 02/02/25 History mcg-4.5 mcg/actuation aerosol inhaler ciclopirox 0.77 % topical gel 1 appl topical BID 02/03/25 02/03/25 02/02/25 History famotidine 20 mg tablet 20 mg PO DAILY 02/03/25 02/03/25 02/02/25 History furosemide 40 mg tablet (Lasix) 40 mg PO 02/03/25 02/02/25 History Physical Exam Vital Signs: Vital Signs: Last Vital Signs Temp 98 F 02/03/25 13:25 Pulse 83 02/03/25 13:25 Resp 16 02/03/25 13:25 BP 112/50 L 02/03/25 13:25 Pulse Ox 95 02/03/25 13:25 O2 Del Method Room Air 02/03/25 13:25 BMI result Body Mass Index 31.2 Const: Other: Emesis bag in hand. Uvula midline, talking in complete sentences General: no acute distress Nutritional Appearance: obese Orientation/consciousness: patient oriented x3 Limitations: language barrier HEENT: Head: Yes normal to inspection Ears: hearing grossly normal bilaterally Mouth: Normal oral and palatal mucosa present Eyes: Sclerae: sclerae normal Pupils: Equal, round and reactive pupils present Neck: Neck: Yes normal visual inspection Chest: Chest palpation & inspection: normal inspection of the chest Resp: Effort & Inspection: normal respiratory effort Auscultation: clear to auscultation bilaterally Cardio: Palpation: normal PMI Rate: regular rate Rhythm: regular rhythm Heart sounds: S1 normal heart sound present, S2 normal heart sound present and no murmurs GI: Inspection: Yes obesity Palpation (GI): Soft to palpation, nontender and No hepatosplenomegaly present Auscultation: normal bowel sounds Rectal Exam - Female: deferred Skin: General skin exam: no rashes or lesions noted Neuro: General: patient oriented x3, gait normal and moves all extremities Cranial nerves: Yes Equal, round and reactive pupils present Psych: Appearance: grossly normal Mental Status: mental status grossly normal Results Labs 02/03/25 12:18 02/03/25 12:18 Labs: Short CBC 02/03/25 Range/Units 12:18 WBC 7.2 (4.8-10.8) X10*3/uL Hgb 10.8 L (12.0-16.0) g/dl Hct 35.4 L (37.0-47.0) % Plt Count 225 (160-400) X10*3/uL BMP 02/03/25 12:18 Sodium 141 Potassium 3.9 Chloride 104 Carbon Dioxide 33 H BUN 12 Creatinine 0.64 Calcium 9.5 D Liver Function 02/03/25 Range/Units 12:18 Total Bilirubin 0.4 (0.0-1.0) mg/dL Direct Bilirubin 0.2 (0.0-0.5) mg/dL AST 26 (5-31) U/L ALT 17 (0-31) U/L Alkaline Phosphatase 96 (39-117) U/L Albumin 4.1 (3.5-5.0) g/dL Assessment and Plan (1) Obstruction of esophagus due to food impaction: Status: Acute (2) Dysphagia, pharyngoesophageal phase: Status: Acute Plan 69 YF w/PMHx JOSÉ, seizures, diabetes, RA, CHF, migraines, GERD, COPD came to [facility] [place] [facility] today with c/o SOB & inability to swallow since 1900 last night. Pt complains of dysphagia after swallowing a root vegetable last night and has been unable to drink water or take meds Esophageal obstruction due to food impaction likely due to esophageal motility disorder, stricture or ring RECOMMENDATIONS: 1. Proceed with urgent upper endoscopy today. Procedure and potential complications including bleeding, perforation, reaction to anesthetic and aspiration were reviewed with the patient with the help of a video passenger interline clerk. EGD procedure scheduled with Dr. Scott. Procedures Date of Service Date of Service: 02/03/25
--- NOTE | 2025-02-03 13:43 | HO.ANESPROP2 ---
HPI - Anesthesia Eval Consult details Narrative: For EGD -- food bolus impaction PMFSH Active Problems Active Problems: All Active Problems Rhabdomyolysis (Acute) Elevated CPK (Acute) Elevated troponin (Acute) Arm pain, right (Acute) Ganglion cyst of finger of left hand (Acute) Tachycardia (Acute) Diverticulosis of colon (Acute) Colon polyp (Acute) Encounter for screening colonoscopy (Acute) Acid reflux (Acute) On Depo-Provera for contraception (Acute) Yeast infection involving the vagina and surrounding area (Acute) Well woman exam with routine gynecological exam (Acute) Cervical cancer screening (Acute) Palpitation (Acute) Chest pain (Acute) Dyspnea on exertion (Acute) COVID-19 (Acute) Encounter for management and injection of depo-Provera (Acute) Delusions of parasitosis (Acute) JOSÉ (obstructive sleep apnea) (Acute) Sleep disorder (Acute) Anemia (Acute) Fatigue (Acute) Cognitive dysfunction (Acute) Asthma with exacerbation (Acute) NSTEMI (non-ST elevated myocardial infarction) (Acute) Asthma (Acute) Essential hypertension (Acute) Mixed hyperlipidemia (Acute) Insulin dependent type 2 diabetes mellitus (Acute) Past Medical History Medical History Seizure disorder JOSÉ (obstructive sleep apnea) Delusions Major neurocognitive disorder Chest pain Dyspnea on exertion COVID-19 GERD (gastroesophageal reflux disease) DJD (degenerative joint disease) COPD (chronic obstructive pulmonary disease) Bipolar disorder CTS (carpal tunnel syndrome) Hx of rheumatoid arthritis Diabetic neuropathy Urinary incontinence Aneurysm of middle cerebral artery Pulmonary nodules CHF (congestive heart failure) Palpitations Migraine History of COVID-19 Mild aortic stenosis Asthma Insulin dependent type 2 diabetes mellitus Mixed hyperlipidemia Mood disorder Essential hypertension Narrative: Echo from 04/12/2024 reviewed. 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) Unable to assess alcohol history related to: Unable to respond Alcohol intake: never Comment: report given by Cleo menendez Patient Tobacco Use Status: Never used Tobacco Tobacco use type: Cigarette Cigarette Packs Per Day: 0.2 Cigarettes Per Day: 4.0 Years Smoked: [id number] Smoked in Last 30 Days: No e-Cigarette/Vaping Use: Never Used Second Hand Smoke Exposure: No Use of substances other than those prescribed or required for medical reasons: No Are you DNR?: No Advance Directives: Yes Advance Directives on File: Yes Advance Directives Date on File: 11/20/23 Do you have a plan to hurt others: No Plan service: No Current occupational status: retired Sexual orientation: Straight/Heterosexual Meds Allergies Allergy/AdvReac Type Severity Reaction Status Date / Time Penicillins Allergy Mild Swelling Verified 02/03/25 11:12 Active Medications: Current Medications Sodium Chloride (Ns) 1,000 mls @ 999 mls/hr IV .Q1H1M ISIAH Stop: 02/03/25 14:45 Home Medications ?Medication ?Instructions ?Recorded ?Confirmed ?Last Taken ?Type blood sugar diagnostic (OneTouch #10 ea 09/27/22 10/20/23 12/15/22 History Ultra Test strips) lancets 33 gauge (OneTouch Delica #100 ea 09/27/22 10/20/23 12/15/22 History Plus Lancet) [id number]-[id number]-skhuhtte 1 tab PO Q6H PRN Headache 10/17/23 02/03/25 02/02/25 History 50 mg-325 mg-40 mg tablet docusate sodium 100 mg capsule 100 mg PO BID 11/16/23 02/03/25 02/02/25 History sennosides 8.6 mg tablet (senna) 8.6 mg PO DAILY 11/16/23 02/03/25 02/02/25 History amitriptyline 150 mg tablet 150 mg PO BEDTIME 04/11/24 02/03/25 02/02/25 08:00 History amitriptyline 50 mg tablet 50 mg PO BEDTIME 04/11/24 10/26/24 10/25/24 History gabapentin 300 mg capsule 300 mg PO TID 04/11/24 02/03/25 02/02/25 History fluticasone fur. 100 mcg-umeclid 1 ea inhalation DAILY 10/26/24 02/03/25 02/02/25 History 62.5 mcg-vilant 25 mcg inhalat.powder (Trelegy Ellipta) tramadol 50 mg tablet 50 mg PO Q8H PRN Pain 10/26/24 02/03/25 02/01/25 History clonazepam 0.5 mg tablet 0.5 mg PO TID PRN Pain 12/23/24 02/03/25 02/02/25 History duloxetine 20 mg capsule,delayed 60 mg PO DAILY 12/23/24 02/03/25 02/02/25 History release loratadine 10 mg tablet 10 mg PO DAILY 12/23/24 02/03/25 02/02/25 History metformin 500 mg tablet,extended 500 mg PO DAILY 12/23/24 02/03/25 02/02/25 History release 24 hr metoclopramide HCl 10 mg tablet 10 mg PO QID 12/23/24 02/03/25 02/02/25 History metoprolol tartrate 25 mg tablet 25 mg PO DAILY 12/23/24 02/03/25 02/02/25 History montelukast 10 mg tablet 10 mg PO BEDTIME 12/23/24 02/03/25 02/02/25 History potassium chloride 20 mEq 20 meq PO DAILY 12/23/24 12/23/24 12/22/24 History tablet,extended release(part/cryst) budesonide-formoterol HFA 160 inhalation 02/03/25 02/02/25 History mcg-4.5 mcg/actuation aerosol inhaler ciclopirox 0.77 % topical gel 1 appl topical BID 02/03/25 02/03/25 02/02/25 History famotidine 20 mg tablet 20 mg PO DAILY 02/03/25 02/03/25 02/02/25 History furosemide 40 mg tablet (Lasix) 40 mg PO 02/03/25 02/02/25 History magnesium oxide 400 mg PO DAILY 02/03/25 02/03/25 02/02/25 History pantoprazole 40 mg tablet,delayed 40 mg PO DAILY 02/03/25 02/03/25 02/02/25 History release Exam Height,Weight and Vital Signs: Height 5 ft 2 in Weight 77.5 kg Last Vital Signs Temp 98 F 02/03/25 13:25 Pulse 83 02/03/25 13:25 Resp 16 02/03/25 13:25 BP 112/50 L 02/03/25 13:25 Pulse Ox 95 02/03/25 13:25 O2 Del Method Room Air 02/03/25 13:25 Pertinent Lab Results Pertinent Lab Results: Laboratory Tests 02/03/25 12:18 WBC 7.2 RBC 4.40 Hgb 10.8 L Hct 35.4 L MCV 80.5 MCH 24.5 L MCHC 30.5 L RDW 17.6 H Plt Count 225 MPV 10.2 Immature Gran % (Auto) 0.4 Neut % (Auto) 72.4 Lymph % (Auto) 15.9 L [place] % (Auto) 8.8 Eos % (Auto) 2.1 Baso % (Auto) 0.4 Lymph # (Auto) 1.1 L [place] # (Auto) 0.6 Eos # (Auto) 0.2 Baso # (Auto) 0.0 Abs Immat Gran (auto) 0.03 Absolute Neuts (auto) 5.2 Absolute Nucleated RBC 0.000 Nucleated RBC % (auto) 0.0 Sodium 141o Potassium 3.9 Chloride 104 Carbon Dioxide 33 H Anion Gap 8 L BUN 12 Creatinine 0.64 Estim Creat Clear Calc 78.8 Estimated GFR > 60 Random Glucose 114 Calcium 9.5 D Magnesium 1.6 Total Bilirubin 0.4 Direct Bilirubin 0.2 AST 26 ALT 17 Alkaline Phosphatase 96 Total Protein 7.7 Albumin 4.1 Airway Mallampati Class: II TM Dist: >3cm Neck ROM: Full Denture: Upper Loose/Missing/Broken Teeth: Yes, Upper and Lower Heart: ok. see above. Lungs: ok. Sat 95% RA. Assessment and Plan Assessment Anesthesia Assessment: Anesthesia Plan Discussed and Chart Reviewed Final Anesthetic Review Family History of Problems with Anesthesia: No History of Problems with Anesthesia: No NPO: Yes ASA Class: IV Final Preanesthetic Review: No Changes in Pt Med Stat, Meds/Allgs Chart Reviewed, Consent Obtained/Reviewed and Anes Risks/Benef Reviewed Patient Risk: High Anesthetic Plan Anesthetic Plan: GA, Agree w/ Assess. and Plan and TIVA Disposition: Standard PACU
--- OUTSIDE RECORDS SUMMARY | 2025-02-03 14:07 | XMS_ITS | Data Portability ---
Author Organization [employer], [employer] Address [address] [place] [address] Care Team Providers Care Software Support Technician Name Role Phone HIM CCA OTHER [facility] Prim carlyn Care Provider Assessment Encounter Date Assessment Date Assessment LastModified by Organization Details LastModified Time 04/23/2024 04/23/2024 As noted, we wer e called to see this patient regarding concerns of hospital discharge. Evaluation in the field was performed by my asparagus cutter colleague, as noted above, I provided real-time [...] Assessment and Plan as documented by the Tissue Rewinder. We discussed the diagnostic uncertainty of home visits and the risk associated with this/ the patient given the opportunity to ask questions. Advised if develops CP/severe SOB/turning blue/uncontrolled n/v/d /AMS/ syncope/ hi fever /cold blue leg or increasing red hot leg with uncontrolled pain to call 911- verbalized understanding of instruction [email or web address] Not available 08/23/2024 18:06:23 Plan of Treatment Reminders Order Date Submit Date Provider Last Modified By Organization Details Last Modified Time Details Appointments None recorded. Lab None recorded. Referral None recorded. Procedures None recorded. Surgeries None recorded. Imaging None recorded. Medication Orders prednisone 10 mg tablet 2023 [facility] #[id number], [address] [place], [address], 19:32:25 azithromyci n 250 mg tablet 2023 [facility]acy #2071, [address] [place], [address], 4 19:32:25 azithromyci n 250 mg tablet [address] [facility]45762, [address] [place], [place], [id number], 4 19:32:23 prednisone 50 mg tablet 2023 [facility]armacy #2071, [address] [place], [address], 4 19:32:26 prednisone 20 mg tablet [address] [facility] #78864, [address] [place], [place], [id number], 4 19:32:23 ipratropium 0.5 mg-albutero l 3 mg (2.5 mg base)/3 mL nebulizatio n soln 2023 024 [facility] n89 [facility] #64516, [address] [place], [place], [id number], 4 19:32:23 doxycycline hyclate [address] [facility] [address] [place], [address], 4 14:01:33 mupirocin 2 % topical ointment [address] [facility] [address] [place], [address], 4 14:01:34 acetaminoph en 500 mg tablet 2023 024 [email or web address] 0 [facility] #51412, [address] [place], [place], [id number], 4 14:01:28 acetaminoph en 500 [address] [facility] [address] [place], [address], 4 14:01:34 bacitracin 500 unit/gram topical ointment 2023 024 [email or web address] 0 [facility] #98906, [address] [place], [place], [id number], 4 18:08:41 doxycycline hyclate 100 mg tablet 2023 024 [email or web address] 0 [facility] #50913, [address] [place], [place], [id number], 4 18:08:42 Patient TargetsNo targets recorded. Patient Instructions Encounter Date Encounter Id Patient Instructions Last Modified By Organization Details Last Modified Time 08/23/2024 [id number] application of wound dressing* - Wound cleansed with saline, pat dry with gauze, then superficial bacitracin applied,.I prefer mupirocin but the medic did not have any. Then bulky dry sterile dressing applied limiting tape on the skin and medic left some dressing supplies for the patient Not available 08/23/2024 18:08:41 Reason for Referral None Reported. Medical Equipment None Reported. Allergies Allergen ID Allergen Name Allergen Category Reaction Reaction Severity Criticality Documentation Date Start Date Code Code System Note Provider Name and Address Organization Details Recorded Time 9765 Product containin g penicilli n (product) medicatio n Not available Not available Not available 08/10/2024 50898 8001 SNOMED Not Available [facility] - [facility] 4 04:57:28 Medications Name Sig Start Date Stop Date Status Note LastModified by Organization Details LastModified Time Prescription - Renewal active Not Available Not Available No t Available atorvastatin 80 mg tablet TOME 1 TABLETA [...] Available No t Available Easy Comfort Pen Odin 31 gauge x 5/16 USE DIRECTED THREE [...] % 135 mm[Hg] 78 mm[Hg] Not Available [employer] 4 19:42:38 Date Recorded Respiratory rate Heart rate Body temperature Oxygen saturation Oxygen saturation in Arterial blood by Pulse oximetry Systolic blood pressure Diastolic blood pressure Provider Name and Address Organization Details Last Updated DateTime 4 16 /min 74 /min 98.6 [degF] 98 % 98 % 110 mm[Hg] 70 mm[Hg] Not Available [facility] [employer] 4 13:42:15 Date Recorded Body temperature Respiratory rate Body weight Body height Heart rate Oxygen saturation Oxygen saturation in Arterial blood by Pulse oximetry Systolic blood pressure Diastolic blood pressure Provider Name and Address Organization Details Last Updated DateTime 4 99.1 [degF] 14 /min 20167.6 g 167.64 cm 90 /min 96 % 96 % 148 mm[Hg] 78 mm[Hg] Not Available [employer] 4 19:25:22 Social History None recorded. Functional Status None recorded. Mental Status None recorded. Family History Nothing Reported. Medical History No medical history recorded. Gynecological HistoryNo gynecological history recorded. Obstetrics History GPAL:G 0 P 0 0 0 0 Past Encounters Encounter ID Performer Location Encounter Start Date Encounter Closed Date Diagnosis/Indication Diagnosis SNOMED-CT Code Diagnosis ICD10 Code Diagnosis Note [id number] Argelia Aceves MD Main - [address] [phone] 02/09/2024 17:15:15 02/09/2024 22:22:30 Injury of head 63215916 S09.90XA 68 year old female being evaluated [...] assessment and plan as documented by the asparagus cutter. I provided real-time medical direction for this encounter and was immediatel y available to provide additional phone-base d assistance as needed. We discussed the diagnostic uncertaint y of home visits and associated risks. We discussed the need to seek care urgently/e mergently in the setting of any new or worsening symptoms. [id number] Gunjan Park MD Main - [facility] [address] [place] [phone] 04/23/2024 19:42:36 04/25/2024 22:12:32 Post-discharge follow-up [id number] Z09 [id number] Daya Almanza MD Main - [facility] [address] [place] [phone] 08/23/2024 13:42:09 08/23/2024 21:01:21 Cellulitis of left lower limb [id number] 1460872 L03.116 puncture wound w/ infectionA dvised need to get x-ray to fully evaluate the extent of the damage-to rule out foreign body, possible fracture (although the latter is less likely because she is still ambulatory ) and the patient refused to leave. Risks of worse infection explained- including retained foreign body -loss of limb [facility] [address] [facility] [place] Advised patient need to follow-up with PCP tomorrow-n ote also sent to [facility] through [facility]:pat had metal trina ferro her left LE [...] e before according to her med list [id number] Hector Llanes MD Main - [facility] [address] [place] [phone] 09/21/2024 19:25:20 09/23/2024 00:02:50 Acute exacerbation of chronic obstructive pulmonary disease [id number] J44.1 As noted, we were called to see this patient regarding concerns of breathing difficulty , cough, sputum, concerning for COPD exacerbati on. Evaluation in the field was performed by my asparagus cutter colleague, as noted above, I provided real-time [...] Edwards Member ID Guarantor Name 02/09/2024 1 [facility] - DOS ON OR AFTER 2023 - DUAL ELIGIBLE - HALF-WAY OPTIONS AND ONE CARE (MEDICARE REPLACEMENT/ADV ANTAGE - HMO) Melyssa Rishabh [id number] Melyssa Keating 04/23/2024 1 [facility] - DOS ON OR AFTER 2023 - DUAL ELIGIBLE - HALF-WAY OPTIONS AND ONE CARE (MEDICARE REPLACEMENT/ADV ANTAGE - HMO) Melyssa Keating [id number] Melyssabethany Keating 08/23/2024 1 [facility] - DOS ON OR AFTER 2023 - DUAL ELIGIBLE - HALF-WAY OPTIONS AND ONE CARE (MEDICARE REPLACEMENT/ADV ANTAGE - HMO) Melyssa Keating [id number] Melyssa Keating 09/21/2024 1 [facility] - DOS ON OR AFTER 2023 - DUAL ELIGIBLE - HALF-WAY OPTIONS AND ONE CARE (MEDICARE REPLACEMENT/ADV ANTAGE - HMO) Melyssa Keating [id number] Melyssa Keating Notes Date Note Type Note Provider Name and Address Organization Details Recorded Time 02/09/2024 text/html HPI: Member was falling asleep on phone with caregivers home[facility]. Minimally responsive to prompts. She refused pressing her PERS and refused [facility] calling 911. ..................... ..................... ..................... ..................... ..................... ..................... ............... [facility] Nurse Triage Notes (Bailey Chavez): Comments: [facility] outreach to member was unsuccessful. Unable to reach- N Kathy VERNON ..................... ..................... ..................... ..................... ..................... ..................... ............... Tissue Rewinder Note From Kelvin Thomas: t reports falling [...] ..................... ............... Disposition: Fulfilled Argelia Aceves MD [address] [place] [address],[address], [place], [phone], [employer] 02/09/2024 18:18:39 04/23/2024 text/html HPI: HPIarrived at [...] (Carole Estrada)Outreach to member completed with an hourly sign language interpreter Member stated that she is feeling fine. Member did have a fall , denies hitting her head or pain after fall. Member denies any trouble staying awake. Member denies any sob, DANIEL, eating and drinking . Seemed to be delay in responding on with hourly sign language interpreter unable to fully assessupdated 1553- unable to [...] contact with member and know [facility]: hospitalized 04/10-04/12 for r/o TIA. requested [...] ..................... ..................... ..................... ..................... ..................... ..................... .. Tissue Rewinder Note From Laura Lee: Dispatched for 68 yo female chief complaint of lethargy/weakness. U/a pt is found seated upright on couch in living room. Pt presents CA&Ox4, patent airway, normal breathing and skin signs warm, pink and dry. Language barrier present -> etiologist services utilized. Pt states she has a [...] ..................... ............... 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 ..................... ..................... ..................... ..................... ..................... ............... Tissue Rewinder Note From Edmar Partida: Dispatched for a scheduled visit for a female pt. with a left leg wound. pt. was found alert and oriented x3 sitting in living room wolof speaking only. etiologist contacted and it was determined the patient [...] +cms in all extremities -stroke scale findings. [facility] contacted medication list and photos of the affected area forwarded. [facility] ordered to clean the wound with sterile [...] also advised to follow up with PCP. [facility] noted to doctor need for x-ray.all times are approx.report completed by jacob partida ..................... ..................... ..................... ..................... ..................... ..................... ............... [facility] Consulted: Daya Almanza ..................... ..................... ..................... ..................... ..................... ..................... ............... Disposition: Fulfilled Daya Almanza MD [address] [place] [address],[address], [place], [phone], [employer] 08/23/2024 18:10:00 09/21/2024 text/html [facility] Nurse Triage Notes (Soha Nicholson): Reason For [...] week. Patient agreeable to an [facility] visit. Tissue Rewinder Organization Information for [employer] Name: [facility] Address: [address] [place] [address], JUSTA [place] [address], Labor Standards Director: Seb Avila MD [place] No.: [id number] Tissue Rewinder POC Test Results from [employer] Rapid COVID antigen (19:21:34) COVID: - Rapid influenza antigen (19:21:35) Flu: - ..................... ..................... ..................... ..................... ..................... ..................... ............... Tissue Rewinder Note From [employer]: Patient alert and oriented all information through medical phone Bowl Attendant. Patient complains of continued cough and difficulty [...] throughout lungs. Abdomen soft, nontender extremities unremarkable. [facility] orders prednisone 40 mg PO, azithromycin 500 mg PO, DuoNeb x1 and will Rx more to patients local pharmacy. Patient reports she has made a plan with her [facility] to coordinate PCP visit. Patient said she? s able to get the medications. Medications administered without complication using five rights. Red flags and patient education discussed via Bowl Attendant.Patient demonstrates understanding of care and plan. Patient negative for Covid and flu via rapid POC. ..................... ..................... ..................... ..................... ..................... ..................... ............... [facility] Consulted: Kemar Llanes ..................... ..................... ..................... ..................... ..................... ..................... ............... Disposition: Fulfilled Hector Llanes MD [address] [place] [address],[address], [place], [phone], [facility] 09/21/2024 21:09:50 OBGyn Episode No OBEpisode recorded.
--- OUTSIDE RECORDS SUMMARY | 2025-02-03 14:07 | XMS_ITS | Encounter Summary ---
Author Organization [employer] Address [address] [place] [address] Care Team Providers Care Trim Machine Adjuster Name Role Phone Ashwin Arzola MD Primary Care Provider [phone] Reason for Visit * Reason Onset Date Comments Faxed Order 01/05/2025 [id number] Order # [id number] Encounter Details Date Type Department Care Team (Late st Contact Info) Description 01/05/2025 Telephone Adult Medicine [address] [address] Ashwin Arzola MD [address] [place] [address] Faxed Order ([id number] Order # [id number]) Social History Tobacco Use Types Packs/Day Years [...] as of this encounter Progress Notes * Lexi Hart - 01/05/2025 2:59 PM EDT Received fax order # [id number] from [employer]. Please review, sign, date & fax back to [phone]. Placed in providers bin documented in this encounter Plan of Treatment Upcoming Encounters Date Type Department Care Team (Late st Contact Info) Description 02/09/2025 10:00 AM EDT Ancillary Procedure [facility] [address] [place] [address] 02/10/2025 10:00 AM EDT Consult Orthopedic Surgery - [place] [address] [facility] [address] [place] [phone] Michele May MD [address] [facility] [address] [place] [address] 03/03/2025 10:50 AM EDT Office Visit Pulmonolgy - [place] [address] [facility] [address] [place] [phone] Cami Dupont NP [address] [facility] [address] [place] [address] 04/08/2025 9:40 AM EDT Appointment Radiology Department - [address] [phone] 04/12/2025 10:00 AM EDT Office Visit Urogynecology - [address] [phone] Shani Aquino MD [address] [place] [address] [address] [place] [address] 06/02/2025 9:45 AM EDT Office Visit Adult Medicine South - [address] [phone] Timmy Avina PA [address] [place] [address] documented as of this encounter Visit Diagnoses Not on filedocumented in this encounter Care Teams Trim Machine Adjuster Relationship Specialty Start Date End Date Ashwin Arzola MD [address] [place] [address] PCP - General Internal Medicine 08/01/20 documented as of this encounter
--- OUTSIDE RECORDS SUMMARY | 2025-02-03 14:07 | XMS_ITS ---
Author Name Marty GEORGESBeatriz Address [address] [place] [address] Phone [phone] [facility] Care Team Providers Care Dog Handler Or Trainer Name Role Phone Beatriz Ferguson Unavailable [phone] [facility] Unavailable Shaina Olivares Unavailable Unavailable Ashwin Arzola Unavailable [phone] [facility] Unavailab [phone] Unavailable Unavailable Unavailable Reason for Referral Not [...] 2021-12-26 2023-01-02 Vitamin D (Ergocalciferol) 1.25 mg (87848 UT) Cap TAKE 1 CAPSULE BY MOUTH 1 TIME A WEEK 2021-11-16 2023-01-02 OneTouch Delica Plus Kamdns40X Miscellaneous USE DIRECTED TWICE DAILY 2021-11-30 No [...] DAY AT BEDTIME 2022-05-01 No Data Available Ufaqyoeihe-BFXY-Ncpkyjed 50/325/40 mg Tab TAKE 1 TABLET BY MOUTH EVERY 6 HOURS NEEDED 2022-05-01 No Data Available B-D PEN NDL SHRT 44SF8UA(02/25) CARMEN USE DIRECTED THREE TIMES DAILY 2021-08-21 No Data Available Diclofenac Sodium 1 % Gel APPLY 4 GRAMS TOPICALLY TO THE AFFECTED AREA TWICE DAILY 2022-05-29 No Data Available Furosemide 40 mg Tab TAKE 1 TABLET BY [facility] DAILY 2022-07-25 2023-01-02 Mapap [...] 20 mg Tab TAKE 1 TABLET BY [facility] AT BEDTIME 2023-06-23 No Data Available Ondansetron 4 mg Tab TAKE 1 TABLET BY [facility] EVERY 8 HOURS NEEDED FOR NAUSEA 2023-06-23 No Data Available Loratadine 10 mg Tab TAKE 1 TABLET BY [facility] EVERY DAY 2023-07-03 No Data Available Cetirizine 10 mg Tab TAKE 1 TABLET BY [facility] AT BEDTIME 2023-07-05 No Data Available Nystatin 206439 UNIT/GM Powder APPLY TOPICALLY FOUR TIMES DAILY [...] 50 mg Tab TAKE 1 TABLET BY [facility] EVERY 8 HOURS NEEDED 2023-07-30 No Data [...] WITH MEALS 2023-11-07 No Data Available UNIFINE 16SM0HH PEN NEEDLES USE DIREC CODY THREE TIMES DAILY 2023-11-07 2023-11-26 Azithromycin 250 mg Tab TAKE 2 TABLETS B Y MOUTH FOR 1 DAY THEN TAKE 1 TABLET BY MOUTH DAILY FOR 4 DAYS 2023-11-11 No Data Available Cefuroxime Axetil 250 mg Tab TAKE 1 TABL ET BY MOUTH TWICE DAILY 2023-11-19 No Data Available Nystatin 828737 UNIT/GM Powder apply to affected area daily, [...] Active 12-13-29 N/A Other problems related to ne dical facilities and other health care Active [...] Pain Documented on a Pain Scale (1125F) [facility] ([place] Pain Assessment - Pain Documented on a Pain Scale (1125F) [facility] Pain Assessment - Pain Documented on a Pain Scale (1125F) [facility]2022 Pain Assessment - Pain Documented on a Pain Scale (1125F) [facility] ([place]/10[place]2022 Pain Assessment - Pain Documented on a Pain Scale (1125F) [facility] [place] Pain Assessment - Pain Documented on a Pain Scale (1125F) [facility] 09/10[place]22 Pain Assessment - Pain Documented on a Pain Scale (1125F) [facility]22 Pain Assessment - Pain Documented on a Pain Scale (1125F) [facility] 09/10/2022 Type 2 diabetes mellitus wit [...] 95 for video, modifier 93 for phone [facility] 10/03/2022 Hypertensive heart disease w ith heart [...] 1111F, BP, A1c or other CPTII codes [facility] 11/28/2022 Encounter for other specifie d aftercare RN, CN or CP time with patient by phone; use with 1111F, BP, A1c or other CPTII codes [facility] 11/28/2022 No Data Available [facility] 12/03/2022 Chronic obstructive pulmonar y disease with (acute) exacerbation No Data Available [facility] 12/03/2022 Estab. patient 30-39min; chronic exacerbation, 2 stable chronic or 1 acute illness add add modifier 95 for video, (do not use for phone, instead use 52585-36) [facility] 01/09/2023 Type 2 diabetes mellitus wit h [...] (do not use for phone, instead use 84729-47) [facility] 01/09/2023 Estab. patient 30-39min; chronic exacerbation, 2 stable chronic or 1 acute illness add add modifier 95 for video, (do not use for phone, instead use 27880-09) [facility] 01/09/2023 Estab. patient 30-39min; chronic exacerbation, 2 stable chronic or 1 acute illness add add modifier 95 for video, (do not use for phone, instead use 73257-77) [facility] 01/09/2023 Estab. patient 30-39min; chronic exacerbation, 2 stable chronic or 1 acute illness add add modifier 95 for video, (do not use for phone, instead use 97837-07) [facility] 01/09/2023 Estab. patient 30-39min; chronic exacerbation, 2 stable chronic or 1 acute illness add add modifier 95 for video, (do not use for phone, instead use 76108-97) [facility] 01/09/2023 Estab. patient 30-39min; chronic exacerbation, 2 stable chronic or 1 acute illness add add modifier 95 for video, (do not use for phone, instead use 50349-67) [facility] 01/09/2023 Estab. patient 30-39min; chronic exacerbation, 2 stable chronic or 1 acute illness add add modifier 95 for video, (do not use for phone, instead use 64437-77) [facility] 01/09/2023 Estab. patient 30-39min; chronic exacerbation, 2 stable chronic or 1 acute illness add add modifier 95 for video, (do not use for phone, instead use 72101-81) [facility] 01/09/2023 RN, CN or CP time with patient by phone; use with 1111F, BP, A1c or other CPTII codes [facility] 01/02/2023 Encounter for other specifie d aftercare RN, CN or CP time with patient by phone; use with 1111F, BP, A1c or other CPTII codes [facility] [place] 01/02/2023 No Data Available [facility] [place] 03/28/2023 Other chest pain No Data Available [facility] 04/02/2023 Chronic obstructive pulmonar y disease, unspecifiedChronic respiratory failure, unsp w hypoxia or hypercapniaSchizophrenia, unspecified No Data Available [facility] 04/02/2023 No Data Available [facility] 04/02/2023 No Data Available [facility] 04/02/2023 No Data Available [facility] 04/02/2023 No Data Available [facility] 04/02/2023 No Data Available [facility] [place] 09/08/2023 Type 2 diabetes mellitus wit h [...] status migrainosusAtherosclerosis of aorta No Data Available [facility] 09/08/2023 No Data Available [facility] 09/08/2023 No Data Available [facility] 09/08/2023 No Data Available [facility] [place] 09/08/2023 No Data Available [facility] [place] 09/08/2023 No Data Available [facility] 11/24/2023 Type 2 diabetes mellitus wit [...] and other health care No Data Available [facility] 11/24/2023 No Data Available [facility] [place] 11[place]24/2023 No Data Available [facility] [place] 11/24/2023 No Data Available [facility] [place] 11/24/2023 No Data Available [facility] [place] 11/24/2023 RN, CN or CP time with patient by phone; use with 1111F, BP, A1c or other CPTII codes [facility] ([place]) 11/20/2023 Encounter for other specifie d aftercare RN, CN or CP time with patient by phone; use with 1111F, BP, A1c or other CPTII codes [facility] ([place] 11/20/2023 Vital Signs Date of Collection Vitals [...] tive Time Current Smoking Status Former smoker 2025-01-12 4 Sex Female History of Procedures Procedures Service [...] (do not use for phone, instead use 46374-83) 96071 2022-09-10 No Data Available No Data Availa ble Estab. patient 20-29min; 1 stable chronic or 2 minor; add add modifier 95 for video, modifier 93 for phone 75433 2022-10-03 No Data Available No Data Availa ble RN, CN or CP time with patient by phone; use with 1111F, BP, A1c or other CPTII codes 98027 2022-11-28 No Data Available No Data Avai lable Medications prescribed in hospital were reviewed and reconciled against what they were taking prior to admission during today's visit. (1111F) 1111F 2022-11-28 No Data Available No Data Availa ble No Data Available [id number] 2022-12-03 No Data Available No Data Available Medications prescribed in hospital were reviewed and reconciled against what they were taking prior to admission during today's visit. (1111F) 1111F 2022-12-03 No Data Available No Data Availa ble Estab. patient 30-39min; chronic exacerbation, 2 stable chronic or 1 acute illness add add modifier 95 for video, (do not use for phone, instead use 29863-91) 95098 2023-01-09 No Data Available No Data Availa [...] 1111F, BP, A1c or other CPTII codes 68668 2023-01-02 No Data Available No Data Avai lable Medications prescribed in hospital were reviewed and reconciled against what they were taking prior to admission during today's visit. (1111F) 1111F 2023-01-02 No Data Available No Data Availa ble No Data Available 14631 2023-03-28 No Data Available No Data Available [...] No Data Availa ble No Data Available [id number] 2023-11-24 No Data Available No Data Available [...] 1111F, BP, A1c or other CPTII codes 36116 2023-11-20 No Data Available No Data Avai [...] Falls in last 6 Months: No 2022-09-10 INTERLINE CLERK only there for 9 hours 2023-11-24 Mental [...] or disease education needs that may arise.On SeqnyaKbkgeskpliI6a- 7.5Encouraged regular exerciseLimit unhealthy foods and eat healthy mealsAvoid sugar-sweetened beverages. White bread, rice, pasta.Follows EndocrinologistDiscussed recommended a1c level- <7%CVA 2007Has a PCAAmbulates with a cane/walkerOn Anoro ElliptaSpirivaProAiron 3L 02 PRNFollows PulmonologistOn 3l 02Follows PulmonologistOn QuetiapineAripiprazoleDuloxetineFollows PsychiatristOn AmbienUses Ztlido patchOn Vitamin DOn FurosemideMetoprololWill monitor edema and weight, follows cardiologyOn AripiprazoleStableFollows PsychiatrPenikese Island Leper HospitalMjccorQqtonfnezqI7v- 7.1Follows OphthalmologistOn OmeprazoleAvoid spicy, fatty or fried food, caffeine, chocolateAvoid lying down after mealsAvoid eating late at nightWears Pull-ups 2022-10-03 11:44:44 Televideo 20-29min; 1 stable chronic or 2 minor; add modifier 95Continue to see PCP. Follow-up with Kayla as needed for any acute or disease education needs that may arise 05/05.On JgzzuiQewjaxxpuvQ5f- 7.1Encouraged regular exerciseLimit unhealthy foods and eat healthy mealsAvoid sugar-sweetened beverages. White bread, rice, pasta.Follows EndocrinologistDiscussed recommended a1c level- <7%CVA 2007Ha a PCAAmbulates with a cane/walkerOn Anoro ElliptaSpirivaProAiron 3L 02 PRNFollows PulmonologistOn 3l 02Follows PulmonologistOn QuetiapineAripiprazoleDuloxetineFollows [facility]Tr[facility] AmbienUses Ztlido patchOn Vitamin DOn FurosemideMetoprololWill monitor edema and weight, follows cardiologyOn AripiprazoleStableFollows PsychiatristOn NcholtQhgqsxymsjC2c- 7.5Follows OphthalmologistOn OmeprazoleAvoid spicy, fatty or fried [...] or disease education needs that may arise.On AkspjxWzbrgaoshmD0r- 7.1Encouraged regular exerciseLimit unhealthy foods and eat [...] Psychiatrist01/09/23: Continue current treatment plan as directed.On LgddljQdjbirjnecR4k- 7.5Follows OphthalmologistOn OmeprazoleAvoid spicy, fatty or fried [...] modifier 95)Continue to see PCP. [facility] any acute or disease education needs that may arise 05/05.On TjydyzMtpojfjaqrN7u- 7.1Encouraged regular exerciseLimit unhealthy foods and eat [...] and fall precautions. Follow up as indicated.On QlcejyXhqudsidfsB6p- 7.5Follows OphthalmologistOn OmeprazoleAvoid spicy, fatty or fried food, caffeine, chocolateAvoid lying down after mealsAvoid eating late at night01/09/23: Continue current treatment plan as directed.has f/u visit 11/03/2023 Office Visit Gastroenterology Alber Benites PA-CWears Pull-ups+burning with voiding x months will f/u with EMBRYOLOGY TEACHER 09/16/2023 Office Visit Obstetrics & Gynecology Clare [...] 8.4 2GFR 80 3CVA 2008Does not have INTERLINE CLERK 11/24/23Ambulates with a cane/walkerat risk for fallsFall prevention TIPS: Wear sensible shoes. Remove home hazards (Get rid of all rugs/mats in your home). Light up your living space (keep a flash light next to your bed for night time). Use assistive devices.ambulates with walkerOn Anoro ElliptaSpirivaProAiron 3L 02 PRNFollows Hand PasterCONTINGENCY PLANMember to call for the following symptoms: [...] agitationPlanned intervention: Contact mental health professional: psychiatry [phone] ([place])On quetiapinewith h/o delusions Follows Psychiatristfollowed by psychiatry [phone] ([place]) ( member reports she does home [...] pneumoniae---sensitive to ceftriaxone) all uit symptoms resolved.On KmbisvQimsffaufyS1l- 7.0 11/19/23Follows OphthalmologistOn OmeprazoleAvoid spicy, fatty or fried food, caffeine, chocolateAvoid lying down after mealsAvoid eating late at night01/09/23: Continue current treatment plan as directed.has f/u visit 11/03/2023 Office Visit Gastroenterology Alber Benites PA-CWears Pull-ups+burning with voiding x months will f/u with EMBRYOLOGY TEACHER 09/16/2023 Office Visit Obstetrics & Gynecology Clare [...] ER visit(s) and precipitating factors: Hospital name: [facility]? ? Hospital admission date: 11/16/2023? ? Hospital [...] chills todayRN there 9-10am ---Member unable to pickling operator medications as she does not have INTERLINE CLERK. RN brought medications today. member unable to give me RN name or contact info. 2023-11-24 2 hours per day--no INTERLINE CLERK (does not have a INTERLINE CLERK) . email sent to [facility] cc re need for INTERLINE CLERK 2023-11-24 followed by tracie bonilla [phone] ([place]) ( member reports she does home visits) 2023-11-24 unable to complete medication reconciliation; RN not available and member does not administer medications her self. 2023-11-24 medication list u pdated after review of Hosp records/medication list
--- NOTE | 2025-02-03 14:08 | MHC.SHP ---
Pre-Procedural Eval Section A - 24 Hr Update-Section A only Date of Service: 02/03/25 The patient is an INPATIENT: No The patient has been examined within 24 hours of the surgical procedure. The History & Physical has been completed within 30 days and I have reviewed it.: Yes Section B - Complete if H&P > 30 days Chief Complaint: Object Stuck In Throat Allergies: Allergies Allergy/AdvReac Type Severity Reaction Status Date / Time Penicillins Allergy Mild Swelling Verified 02/03/25 11:12 Plan Diagnosis/Plan: Unchanged I have reviewed the history and physical and performed a pertinent physical examination on my patient. No changes have occurred unless specified. EGD for relief of food bolus obstruction Time Spent With Patient Time: Total time managing care of this patient today ____ minutes.
--- OUTSIDE RECORDS SUMMARY | 2025-02-03 14:08 | XMS_ITS | Encounter Summary ---
Author Organization [employer] Address [address] [place] [address] Care Team Providers Care Principal Technical Writer Name Role Phone Ashwin Arzola MD Primary Care Provider Reason for Visit * Reason Onset Date Comments Sore Throat 02/03/2025 Encounter Details Date Type Department Care Team (Late st Contact Info) Description 02/03/2025 Telephone Adult Medicine [facility] [address] [place] [phone] Ashwin Arzola MD [address] [place] [address] Sore Throat (/) Social History Tobacco Use Types Packs/Day Years [...] Progress Notes * Joyce Mathew RN - 02/03/2025 9:55 AM EDT Call to Margaret JONES for pt [employer] doesn't speak Andorran needs translator and interpreter Call to translator and interpreter william Hernandez , #[id number] Vice President Payment spoke to [employer]OR, pt is experiencing, yesterday pt at a yam and it was hard,when she swallowed c/o it hurt and is having trouble breathing, Today she is able to drink water, but it feels like the yam is still there. Pt is breathing, but when she breaths hard it feels like she is drowning, Pt not eating because she can't swallow, D/t choking on the yam, Pt triaged to the [facility] er, [employer]OR states she can't go now because she has an appointment. Explained she should go to the er now, Not going now, will go about 12p Call ended. * Cynthia Grewal - 02/03/2025 9:45 AM EDT Patient was contacted as placed referral to Ortho. Patient's [employer] worker stated yesterday patient ate something and she feels like she is starting to choke on things and unsure if she scratched the inside of her throat. Patient was instructed if she cannot wait or feels like it is worse for call back patient to seek treatment at the ED. Per patient and [employer] worker, ok to await call back from triage . Can be best reached at [phone]. Thank you, Cynthia documented in this encounter Plan of Treatment Upcoming Encounters Date Type Department Care Team (Late st Contact Info) Description 02/09/2025 10:00 AM EDT Ancillary Procedure [facility] - [facility] [address] [facility] 101 [place] [phone] 02/10/2025 10:00 AM EDT Consult Orthopedic Surgery - [place] [address] [facility] 140 [place] [phone] Michele May MD [address] [facility] 140 [place] [address] 03/03/2025 10:50 AM EDT Office Visit Pulmonolgy - [place] [address] [facility] 200 [place] [phone] Cami Dupont NP [address] [place] [address] [address] [place] [address] 04/08/2025 9:40 AM EDT Appointment Radiology Department - [address] [phone] 04/12/2025 10:00 AM EDT Office Visit Urogynecology - [address] [phone] Shani Aquino MD [address] [facility] [address] [place] [address] 06/02/2025 9:45 AM EDT Office Visit Adult Medicine South - [address] [phone] Timmy Avina PA [address] [place] [address] documented as of this encounter Visit Diagnoses Not on filedocumented in this encounter Care Teams Principal Technical Writer Relationship Specialty Start Date End Date Ashwin Arzola MD [address] [place] [address] PCP - General Internal Medicine 08/01/20 documented as of this encounter
--- OUTSIDE RECORDS SUMMARY | 2025-02-03 14:08 | XMS_ITS | Encounter Summary ---
Author Organization [employer] Address [address] [place] [address] Care Team Providers Care Loan And Credit Manager Name Role Phone Ashwin Arzola MD Primary Care Provider [phone] Reason for Visit * Reason Onset Date Comments Fitting for DME 01/27/2025 Encounter Details Date Type Department Care Team (Late Contact Info) Description 01/27/2025 Telephone Adult [facility] [address] [place] [phone] Ashwin Arzola MD [address] [place] [phone] Fitting for DME Social History Tobacco Use Types Packs/Day Years [...] as of this encounter Progress Notes * Kari Avery LPN - 01/28/2025 3:40 PM EDT This message closed another one open for her documented in this encounter Plan of Treatment Upcoming Encounters Date Type Department Care Team (Late Contact Info) Description 02/09/2025 10:00 AM EDT Ancillary Procedure [facility] - [address] [place] [phone] 02/10/2025 10:00 AM EDT Consult Orthopedic Surgery - [place] [address] [facility] [address] [place] [phone] Michele aMy MD [address] [facility] [address] [place] [address] 03/03/2025 10:50 AM EDT Office Visit Pulmonolgy - [place] [address] [facility] [address] [place] [phone] Cami Dupont NP [address] [facility] [address] [place] [address] 04/08/2025 9:40 AM EDT Appointment Radiology Department - [address] [phone] 04/12/2025 10:00 AM EDT Office Visit Urogynecology - [address] [phone] Shani Aquino MD [address] [place] [address] [address] [place] [address] 06/02/2025 9:45 AM EDT Office Visit Adult Medicine [facility] - [address] [phone] Timmy Avina PA [address] [place] [address] documented as of this encounter Visit Diagnoses Not on filedocumented in this encounter Care Teams Loan And Credit Manager Relationship Specialty Start Date End Date Ashwin Arzola MD [address] [place] [address] PCP - General Internal Medicine 08/01/20 documented as of this encounter
--- OUTSIDE RECORDS SUMMARY | 2025-02-03 14:08 | XMS_ITS | Encounter Summary ---
Author Organization [employer] Address [address] [place] [address] Care Team Providers Care Machine Shop Apprentice Name Role Phone Ashwin Arzola MD Primary Care Provider [phone] Encounter Details Date Type Department Care Team (Late Contact Info) Description 01/07/2025 Billing Patient Not Present Adult Medicine [address] [phone] Ashwin Arzola MD [address] [place] [phone] Social History Tobacco Use Types Packs/Day Years [...] as of this encounter Plan of Treatment Upcoming Encounters Date Type Department Care Team (Late Contact Info) Description 02/09/2025 10:00 AM EDT Ancillary Procedure [facility] - [facility] [address] [facility] 101 [place] [phone] 02/10/2025 10:00 AM EDT Consult Orthopedic Surgery - [place] [facility] 140 [place] [phone] Michele May MD [address] [facility] 140 [place] [address] 03/03/2025 10:50 AM EDT Office Visit Pulmonolgy - [place] [address] [facility] [address] [place] [phone] Cami Dupont NP [address] [facility] 200 [place] [address] 04/08/2025 9:40 AM EDT Appointment Radiology Department - [address] [phone] 04/12/2025 10:00 AM EDT Office Visit Urogynecology - [address] [phone] Shani Aquino MD [address] [place] [address] [address] [place] [address] 06/02/2025 9:45 AM EDT Office Visit Adult Medicine South - [address] [phone] Timmy Avina PA [address] [place] [address] documented as of this encounter Visit Diagnoses Not on filedocumented in this encounter Care Teams Machine Shop Apprentice Relationship Specialty Start Date End Date Ashwin Arzola MD [address] [place] [address] PCP - General Internal Medicine 08/01/20 documented as of this encounter
--- OUTSIDE RECORDS SUMMARY | 2025-02-03 14:08 | XMS_ITS | Encounter Summary ---
Author Organization [employer] Address [address] [place] [address] Care Team Providers Care Pmp Project Manager Name Role Phone Ashwin Arzola MD Primary Care Provider [phone] Reason for Visit * Reason Onset Date Comments PRIOR AUTHORIZATION 01/25/2025 Encounter Details Date Type Department Care Team (Late st Contact Info) Description 01/25/2025 Telephone Endocrinology - [place] [id number] [place], [place] [phone] Ema Cornell MD [address] [place] [address] PRIOR AUTHORIZATION Social History Tobacco Use Types Packs/Day Years [...] as of this encounter Progress Notes * Germaine Dooley RN - 01/26/2025 3:48 PM EDT Unable to complete on CMM Faxed to [facility] for approval of Cade 3+ * Marilyn Whitten - 01/25/2025 10:12 AM EDT Prior Authorization for Medication-do not complete and send this encounter unless you have the fax from the pharmacy. Is this a Cover My Meds request: Yes -- Cash Code [id number] Name of Medication FREESTYLE CADE 3 PLUS SENSOR Dose of Medication CADE 3 PLUS What is the RX # from the faxed refill? N/A How does patient take this med? CHANGE EVERY 14 DAYS What Pharmacy did the fax come from: [facility] Pharmacy fax #: N/A documented in this encounter Plan of Treatment Upcoming Encounters Date Type Department Care Team (Late st Contact Info) Description 02/09/2025 10:00 AM EDT Ancillary Procedure [facility] - [facility] [address] [facility] 101 [place] [phone] 02/10/2025 10:00 AM EDT Consult Orthopedic Surgery - [place] 175 [facility] 140 [place] [phone] Michele May MD 175 [facility] 140 [place] [address] 03/03/2025 10:50 AM EDT Office Visit Pulmonolgy - [place] 175 [facility] 200 [place] [phone] Cami Dupont NP 175 [facility] 200 [place] [address] 04/08/2025 9:40 AM EDT Appointment Radiology Department - [address] [phone] 04/12/2025 10:00 AM EDT Office Visit Urogynecology - [address] [phone] Shani Aquino MD [address] [place] [address] [address] [place] [address] 06/02/2025 9:45 AM EDT Office Visit Adult Medicine [facility] [address] [place] [phone] Timmy Avina PA [address] [place] [address] documented as of this encounter Visit Diagnoses Not on filedocumented in this encounter Care Teams Pmp Project Manager Relationship Specialty Start Date End Date Ashwin Arzola MD [address] [place] [address] PCP - General Internal Medicine 08/01/20 documented as of this encounter
--- OUTSIDE RECORDS SUMMARY | 2025-02-03 14:08 | XMS_ITS | Encounter Summary ---
Author Organization [employer] Address [address] [place] [address] Care Team Providers Care Skin Care Consultant Name Role Phone Ashwin Arzola MD Primary Care Provider [phone] Reason for Visit * Reason Onset Date Comments Fitting for DME 01/27/2025 Encounter Details Date Type Department Care Team ([facility] st Contact Info) Description 01/27/2025 Telephone Adult Medicine [facility] [address] [place] [phone] Ashwin Arzola MD [address] [place] [phone] Fitting for DME Social History Tobacco Use [...] Progress Notes * Brenda Arechiga LPN - 01/31/2025 7:36 AM EDT Rx signed and faxed to [employer] @ [phone] also entered into portal * Brenda Arechiga LPN - 01/28/2025 11:30 AM EDTAddended by: BRENDA ARECHIGA on: 01/28/2025 11:30 AM Modules accepted: Orders * Brenda Arechiga LPN - 01/28/2025 11:16 AM EDT Spoke to pt ans she has a progressive care unit registered nurse on line with her The shower chair is with the back The pull ons are a size large and she wants the reusable and disposable underpads,wipes Would like to get from home care delivered Rx to Dr Arzola to sign * Ashwin Arzola MD - 01/27/2025 6:27 PM EDT To Brenda Please take a look at the note from this patient today I believe I documented her need for shower chair , adult pull ups, wipes and urinary pad To Antonio 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 Or at least point me in the right directionregarding what I need to do to increase her hours. documented in this encounter Plan of Treatment Upcoming Encounters Date Type Department Care Team (Late st Contact Info) Description 02/09/2025 10:00 AM EDT Ancillary Procedure [facility] - [facility] 101 300 [facility] 101 [place] [address] 02/10/2025 10:00 AM EDT Consult Orthopedic Surgery - [place] 175 [facility] 140 [place] [phone] Michele May MD 175 [facility] 140 [place] [address] 03/03/2025 10:50 AM EDT Office Visit Pulmonolgy - [place] 175 [facility] [address] [place] [phone] Cami Dupont NP 175 [facility] [address] [place] [address] 04/08/2025 9:40 AM EDT Appointment Radiology Department - [address] [phone] 04/12/2025 10:00 AM EDT Office Visit Urogynecology - [address] [phone] Shani Aquino MD [address] [place] [address] [address] [place] [address] 06/02/2025 9:45 AM EDT Office Visit [place] Medicine [place] - [address] [phone] Timmy Avina PA [address] [place] [address] documented as of this encounter Visit Diagnoses Diagnosis Falls- Primary Urinary incontinence, unspecified type Urinary urgency Urgency of urination Osteoarthritis of lumbar spine, unspecified spinal osteoarthritis complication status Weakness of both lower extremities Congestive heart failure, unspecified HF chronicity, unspecified heart failure type ([facility] V24, [facility] V28) Encounter for screening mammogram for breast cancer documented in this encounter Orders General Supply Count Last Ordered Date First Or dered Date DISPOSABLE UNDERPADS (CHUX) 1 01/28/2025 GENERAL SUPPLY 3 01/28/2025 GLOVES, NON-STERILE 1 01/28/2025 SHOWER CHAIR 1 01/28/2025 documented in this encounter Care Teams Skin Care Consultant Relationship Specialty Start Date End Date Ashwin Arzola MD [address] [place] [address] PCP - General Internal Medicine 08/01/20 documented as of this encounter
--- OUTSIDE RECORDS SUMMARY | 2025-02-03 14:08 | XMS_ITS | Encounter Summary ---
Author Organization [employer] Address [address] [place] [address] Care Team Providers Care Air And Water Tester Name Role Phone Ashwin Arzola MD Primary Care Provider [phone] Reason for Visit * Reason Onset Date Comments vna 01/28/2025 Encounter Details Date Type Department Care Team ([facility] st Contact Info) Description 01/28/2025 Telephone Adult Medicine [address] [phone] Antonio Elias LPN vna Social History Tobacco Use Types Packs/Day Years [...] as of this encounter Progress Notes * Antonio Elias LPN - 01/31/2025 10:31 AM EDT [facility]oke with [facility] the patient has to go through the agency that supplies the AUTOMATION SPECIALIST services not [facility] this is her certified agency Patient has to call the agency that provides the AUTOMATION SPECIALIST services this the PCP doesn't have anything todo with getting aponte services FYI * Antonio Elias LPN - 01/28/2025 2:43 PM EDT Left a message for [facility] agency I need tof know if they provide certified services or [employer] services Told them to call me Friday [phone] Please pass this call to me thank you documented in this encounter Plan of Treatment Upcoming Encounters Date Type Department Care Team (Late st Contact Info) Description 02/09/2025 10:00 AM EDT Ancillary Procedure [facility] - [address] [place] [address] 02/10/2025 10:00 AM EDT Consult Orthopedic Surgery - [place] 175 [facility] [address] [place] [phone] Michele May MD 175 [facility] 140 [place] [address] 03/03/2025 10:50 AM EDT Office Visit Pulmonolgy - [place] 175 [facility] [address] [place] [phone] Cami Dupont NP 175 [facility] 200 [place] [address] 04/08/2025 9:40 AM EDT Appointment Radiology Department - [address] [phone] 04/12/2025 10:00 AM EDT Office Visit Urogynecology - [address] [phone] Shani Aquino MD [address] [place] [address] [address] [place] [address] 06/02/2025 9:45 AM EDT Office Visit Adult Medicine [place] - [address] [phone] Timmy Avina PA [address] [place] [address] documented as of this encounter Visit Diagnoses Not on filedocumented in this encounter Care Teams Air And Water Tester Relationship Specialty Start Date End Date Ashwin Arzola MD [address] [place] [address] PCP - General Internal Medicine 08/01/20 documented as of this encounter
--- OUTSIDE RECORDS SUMMARY | 2025-02-03 14:08 | XMS_ITS | Clinical Summary ---
Author Organization [facility] [address] [facility] Address [address] [place] [address] Phone Care Team Providers Care Forestry Pilot Name Role Phone Ashwin Arzola MD Primary Care Provider [phone] Allergies Active Allergy Reactions Criticality Noted Date Comments Penicillins Swelling 11/21/2011 Medications acetaminophen (TYLENOL 8 HOUR) 650 mg 8 hr tablet Take 1 Tablet by mouth 2 times daily for 10 days 2 Active albuterol 2.5 mg /3 mL (0.083 %) nebulizer solution Take 1 Vial by nebulization every 4 hours as needed for Wheezing for up to 180 days 3 Active ammonium lactate (LAC-HYDRIN) 12 % lotion Apply to thick nails and skin of both feet of feet daily. At night wear socks to bed 2 Active butalbital-chao taminophen-caf feine (FIORICET, ESGIC) 50-325-40 mg per tablet Take 1 tablet by mouth 1 (one) time each day. 3 Active ciclopirox (LOPROX) 0.77 % gel Apply 1 Application topically 1 (one) time each day. 3 Active clonazePAM (KlonoPIN) 1 mg tablet Take 1 tablet (1 mg total) by mouth at bedtime. 2 Active diclofenac (VOLTAREN) 1 % topical gel Apply 4 g topically 4 times daily. 3 Active fluticasone-um eclidinium-idalmis anterol (Trelegy Ellipta) 100-62.5-25 mcg inhaler Inhale 1 puff (100 mcg total) by mouth 1 (one) time each day. 4 Active DULoxetine (CYMBALTA) [address] capsule TAKE 1 CAPSULE BY MOUTH ONCE DAILY WITH 60MG FOR TOTAL DAILY DOSE OF 80MG 2 Active furosemide (LASIX) 40 mg tablet Take 1 tablet (40 mg total) by mouth 2 (two) times a day. 3 Active insulin glargine (Lantus Solostar U-100 Insulin) 100 unit/mL (3 mL) injection pen Inject 30 Units under the skin 1 (one) time each day. 4 Active metoclopramide (REGLAN) 10 mg tablet Take 1 Tablet by mouth 4 times daily. 4 Active miconazole nitrate 2 % aerosol,spray Apply 1 applicator topically. 4 Active naproxen (NAPROSYN) 500 mg tablet Take 1 Tablet by mouth 2 times daily (with meals). 4 Active nystatin (MYCOSTATIN) 100,000 unit/gram powder Apply topically 4 times daily as needed. 4 Active pantoprazole (PROTONIX) 40 mg EC tablet Take 1 tablet (40 mg total) by mouth 1 (one) time each day. 4 Active polyethylene glycol (MIRALAX) 17 gram packet Take 1 Packet by mouth daily 3 Active QUEtiapine (SEROquel) 100 mg tablet Take 1 tablet (100 mg total) by mouth 2 (two) times a day. 2 Active simethicone (Phazyme) 250 mg capsule Take 1 Tablet by mouth 4 times daily as needed for Other. 3 Active topiramate (TOPAMAX) 100 mg tablet Take 2 tablets (200 mg total) by mouth 2 (two) times a day. 2 Active traMADoL (ULTRAM) 50 mg tablet Take 1 tablet (50 mg total) by mouth every 8 (eight) hours if needed. 2 Active zolpidem (AMBIEN) 10 mg tablet Take 1 tablet (10 mg total) by mouth at bedtime. 2 Active lancets lancets USE TO CHECK SUGARS TWICE DAILY 3 Active montelukast (SINGULAIR) 10 mg tablet Take 1 tablet (10 mg total) by mouth at bedtime. 90 tablet 4 Active magnesium oxide (MAG-OX) 400 mg (241.3 elemental magnesium) tablet Take 1 tablet (400 mg total) by mouth 1 (one) time each day. 4 Active glucose blood test strip USE TO CHECK SUGARS TWICE DAILY 4 Active UNABLE TO FIND Insulin Pen Needle (B-D ULTRAFINE III SHORT PEN) 31G X 8 MM Misc, USE DIRECTED THREE TIMES DAILY 4 Active blood-glucose meter kit Test tid 3 Active pen needle, diabetic (BD Ultra-Fine Short Pen Needle) 31 gauge x 5/16 needle Use as directed three times daily 1 Active UNABLE TO FIND CPAP Historical (HISTORICAL CPAP), by Nasal route at bedtime. BHI&R-pressure 6-16 Active gabapentin (NEURONTIN) 100 mg capsule Take 1 capsule (100 mg total) by mouth 3 (three) times a day. 90 each 4 Active DULoxetine (CYMBALTA) [address] capsule Take 1 capsule (60 mg total) by mouth 1 (one) time each day. 30 each 4 Active traZODone (DESYREL) 50 mg tablet Take 1 tablet (50 mg total) by mouth at bedtime as needed for sleep. 30 tablet 4 025 Active famotidine (Pepcid) 20 mg tablet Take 1 tablet (20 mg total) by mouth 1 (one) time each day. 30 each 11 4 025 Active budesonide-for moteroL (SYMBICORT) 160-4.5 mcg/actuation inhaler Inhale 2 puffs by mouth 2 (two) times a day. Rinse mouth with water after use to reduce aftertaste and incidence of candidiasis. Do not swallow. 1 each 4 Active clonazePAM (KlonoPIN) 0.5 mg tablet Take 0.5 tablets (0.25 mg total) by mouth 1 (one) time each day. Max Daily Amount: 0.25 mg 15 each 4 Active valproic acid (DEPAKENE) 250 mg/5 mL syrup Take 5 mL (250 mg total) by mouth 2 (two) times a day. 300 mL 4 Active Incruse Ellipta 62.5 mcg/actuation inhalation Inhale 1 puff by mouth 1 (one) time each day. 1 each 4 Active hydrocortisone 2.5 % cream Apply topically 2 (two) times a day if needed for irritation or rash. 30 g 2 4 025 Active blood-glucose meter,continuo us (FreeStyle Cade 3 [place]) miscIndication s:Type 2 diabetes mellitus with other specified complication, with long-term current use of insulin ([facility] V24, [facility] V28) To check sugars 1 each 4 Active metoprolol succinate (TOPROL-XL) 25 mg 24 hr tablet Take 1 tablet (25 mg total) by mouth 1 (one) time each day. 90 tablet 1 5 Active atorvastatin (LIPITOR) 80 mg tablet Take 1 tablet (80 mg total) by mouth 1 (one) time each day. 90 tablet 1 5 Active metFORMIN XR (GLUCOPHAGE-XR ) 500 mg 24 hr tabletIndicati ons:Type 2 diabetes mellitus with other specified complication, with long-term current use of insulin ([facility] V24, [facility] V28) Take 1 tablet (500 mg total) by mouth 1 (one) time each day. Take 1 Tablet by mouth daily 90 tablet 1 5 Active loratadine (CLARITIN) 10 mg tablet TOME 1 TABLETA POR VIA ORAL [place]OS [place] 90 tablet 1 5 Active senna 8.6 mg tablet TAKE 1 TABLET BY MOUTH EVERY DAY 30 tablet 4 5 Active docusate sodium (COLACE) 100 mg capsule TAKE 1 CAPSULE BY MOUTH TWICE DAILY 60 capsule 4 5 Active diclofenac (VOLTAREN) 1 % topical gel Apply 2 g topically 4 (four) times a day. 30 g 1 5 Active diclofenac (VOLTAREN) 1 % topical gel Apply 2 g topically 4 (four) times a day. 30 g 1 5 Active blood-glucose sensor (FreeStyle Cade 3 Plus Sensor) deviceIndicati ons:Type 2 diabetes mellitus with other specified complication, with long-term current use of insulin ([facility] V24, [facility] V28) Box = Kit = EA, change sensor every 14 days 6 each 5 Active clonazePAM (KlonoPIN) 0.5 mg tablet One tab qhs and 1/2 tab in the am 45 tablet 5 Active amitriptyline (ELAVIL) 150 mg tablet Take 1 tablet (150 mg total) by mouth at bedtime. 30 tablet 5 Active amitriptyline (ELAVIL) 150 mg tablet Take 8 tablets (1,200 mg total) by mouth at bedtime. 3 025 Discontin ued(Reord er) clonazePAM (KlonoPIN) 0.5 mg tablet Take 1 tablet (0.5 mg total) by mouth at bedtime. Max Daily Amount: 0.5 mg 30 each 5 4 025 Discontin ued(Reord er) blood-glucose sensor (FreeStyle Cade 3 Plus Sensor) deviceIndicati ons:Type 2 diabetes mellitus with other specified complication, with long-term current use of insulin ([facility] V24, [facility] V28) Box = Kit = EA, change sensor every 14 days 6 each 1 4 025 Discontin ued(Reord er) blood-glucose sensor (FreeStyle Cade 3 Plus Sensor) deviceIndicati ons:Type 2 diabetes mellitus with other specified complication, with long-term current use of insulin ([facility] V24, [facility] V28) Box = Kit = EA, change sensor every 14 days 6 each 5 025 Discontin ued(Reord er) Active Problems Problem Noted Date Diagnosed Date Abnormal CT of the abdomen 08/19/2024 Bipolar disorder ([facility] V24, [facility] V28) 04/2024 Overview (08/19/2024): Joan psych COVID-19 08/19/2024 CTS [...] Multiple falls 06/26/2021 Type 2 diabetes mellitus wit h cataract ([facility] V24, [facility] V28) 05/04/2020 Obesity (BMI 30.0-34.9) 02/10/2018 Stage 1 mild COPD by GOLD cl assification ([facility] V24, [facility] V28) 02/10/2018 Overview (08/19/2024): Last Assessment & Plan: Mild COPD. Continue with Trelegy 1 puff once a day. Migraine 01/16/2017 Palpitations 07/08/2016 CHF (congestive heart failure) ([facility] V24, [facility] V28) 04/22/2016 Asthma 04/05/2016 Overview (08/19/2024): Last Assessment & Plan: Continue with the use of Trelegy. The severity of asthma does not correlate with her symptoms. She is doing excellent with the Trelegy as well we will continue it. Diabetes mellitus with neuro logical manifestation ([facility] V24, [facility] V28) 12/19/2014 Pulmonary nodules/lesions, multiple 10/17/2014 Overview (08/19/2024): Last Assessment & Plan: Patient has history of calcified granulomas which has been stable for many years. Aneurysm of middle cerebral artery 07/07/2014 Overview (08/19/2024): 4mm on the R MCA bifucation. Patient was follow in [place] and no intervention was recommended Urinary incontinence 11/18/2013 Diabetic neuropathy ([facility] V24, [facility] V28) 0 02/03/2013 Overview (08/19/2024): Noted on NCT Jun [...] Encounters Date Type Department Care Team Description 02/03/2025 Telephone Adult Medicine [address] [phone] Ashwin Arzola MD Sore Throat (/) 01/28/2025 Telephone Adult Medicine [address] [phone] Antonio Elias LPN vna 01/27/2025 11:19 AM EDT - 01/27/2025 11:59 PM EDT Hospital Encounter [address] [phone] Pain of left hand Discharge Disposition: Home or Self Care 01/27/2025 11:18 AM EDT - 01/27/2025 11:59 PM EDT Hospital Encounter [address] [phone] Right elbow pain Discharge Disposition: Home or Self Care 01/27/2025 10:00 AM EDT Office Visit Adult [address] [phone] Ashwin Arzola MD Metabolic encephalopathy (Primary Dx); Uncontrolled type 2 diabetes mellitus with hyperglycemia (CMS/HCC V24, CMS/HCC V28); Pain of left hand; Right elbow pain; Type 2 diabetes mellitus with other specified complication, with long-term current use of insulin ([facility] V24, [facility] V28); Falls; Hypoglycemia; Non-traumatic rhabdomyolysis; Urinary incontinence, unspecified type 01/27/[address] [phone] Ashwin Arzola MD Fitting for DME 01/27/[address] [phone] Ashwin Arzola MD Fitting for DME 01/25/[address] [phone] Ema Cornell MD PRIOR AUTHORIZATION 01/19/2025 Billing Patient Not Present Adult Medicine [address] [phone] Ashwin Arzola MD 01/18/2025 Billing Patient Not Present Adult [address] [phone] Ashwin Arzola MD 01/18/2025 Telephone Adult Medicine [address] [phone] Tammy Umaña MA faxed order ([id number] order #[id number]) 01/07/2025 Billing Patient Not Present Adult [address] [phone] Ashwin Arzola MD 01/05/2025 Telephone Adult [address] [phone] Ashwin Arzola MD Faxed Order ([id number] Order # [id number]) 12/27/2024 Telephone Adult [address] [phone] Ashwin Arzola MD Hospital Follow-up 12/22/2024 [place] Adult [address] [phone] Ashwin Arzola MD 12/21/2024 Telephone Adult Medicine [address] [phone] Meagan Roe, RN Faxed Order ([id number] order# [id number]) 12/20/2024 11:11 AM EDT - 12/20/2024 11:59 PM EDT Hospital Encounter [address] [phone] Hand pain, left Discharge Disposition: Home or Self Care 12/20/2024 10:30 AM EDT Office Visit [address] [phone] Ahswin Arzola MD Chest pain, unspecified type (Primary Dx); Hypokalemia; Elevated troponin; Urinary incontinence, unspecified type; Hand pain, left; Urinary urgency 11/18/[address] [phone] Nika Ballesteros RN 11/17/[address] [phone] Ashwin Arzola MD triage (Please triage see message from VNA nurse ) 11/10/[address] [phone] Ashwin Arzola MD Fitting for DME; Appointment from Last 3 Months Immunizations Name Administration [...] Date Site/Laterality Comments CARPAL TUNNEL RELEASE PROCEDURE: IN NEUROPLASTY &/TRANSPOS MEDIAN NRV CARPAL TUNNE HYSTERECTOMY 2004 PROCEDURE: HISTORICAL HYSTERECTOMY; COMMENT: vaginal, ovaries in place CHOLECYSTECTOMY PROCEDURE: HISTORICAL CHOLECYSTECTOMY COLONOSCOPY 05/19/2017 PROCEDURE: HISTORICAL COLONOSCOPY; COMMENT: diverticulosis, int hemorrhoids; repeat in 5 yrs under propofol UPPER GASTROINTESTINAL ENDOSCOPY 10/29/2016 PROCEDURE: IN UPPER GI ENDOSCOPY PERFORMED; COMMENT: gastritis; biopsies not taken COLONOSCOPY 03/31/2012 PROCEDURE: HISTORICAL COLONOSCOPY; COMMENT: [facility]; Four adenomas UPPER GASTROINTESTINAL ENDOSCOPY 09/02/2019 PROCEDURE: UPPER GI ENDOSCOPY/EXAM; COMMENT: gastritis, biopsy pending CATARACT EXTRACTION Right PROCEDURE: HISTORICAL CATARACT REMOVAL Medical History Medical History Date Comments Asthma DX:Asthma Seronegative rheumatoid arth ritis ([facility] V24, [facility] V28) DX:Seronegative rheumatoid arthritis ([facility]) Lumbar spondylosis DX:Lumbar spo ndylosis; COMMENT: L3-S1 CTS (carpal tunnel syndrome) DX: CTS (carpal tunnel syndrome); COMMENT: s/p bilat surgery Plantar fasciitis DX:Plantar fas ciitis; COMMENT: Left Medial epicondylitis DX:Medial e picondylitis Pulmonary nodules DX:Pulmonary n odules; COMMENT: calcified Diabetes mellitus ([facility] V 24, [facility] V28) DX:Diabetes mellitus ([facility]) Bipolar disorder ([facility] V2 4, [facility] V28) DX:Bipolar disorder ([facility]) HTN (hypertension) DX:HTN (hyper tension) Bronchitis, not specified as acute or chronic DX:Bronchitis, not specified as acute or chronic Diabetes mellitus with neuro logical manifestation ([facility] V24, [facility] V28) 12/19/2014 DX:Diabetes mellitus with neurological manifestation (HCC) Hemiparesis affecting left s anthony as late effect of stroke ([facility] V24, [facility] V28) 05/15/2016 DX:Hemiparesis affecting lef t side as late effect of stroke (HCC) Gastritis 11/22/2016 DX:Gastritis Migraine 01/16/2017 DX:Migraine Migraine without status migr ainosus, not intractable 01/16/2017 DX:Migraine without status migrainosus, not intractable 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 ([facility] V24, [facility] V28) 02/20/2017 DX:DM type 2 causin g neurological disease ([facility]) Helicobacter pylori infection DX :Helicobacter pylori infection [...] Sign Reading Time Taken Comments Blood Pressure 131/59 01/27/2025 10:06 AM EDT Pulse 83 01/27/2025 10:06 AM EDT Temperature 37.2 ??C (99 ??F) 01/27/2025 10:06 AM EDT Respiratory Rate 15 01/27/2025 10:06 AM EDT Oxygen Saturation 98% 12/20/2024 10:32 AM EDT Inhaled Oxygen Concentration - - Weight 79.8 kg (176 lb) 01/27/2025 10:06 AM EDT Height 165.1 cm (5' 5 ) 01/27/2025 10:06 AM EDT Body Mass Index 29.29 01/27/2025 10:06 AM EDT Plan of Treatment Upcoming Encounters Date Type Department Care Team (Late st Contact Info) Description 02/09/2025 10:00 AM EDT Ancillary Procedure [facility] [address] [facility] [address] [place] [address] 02/10/2025 10:00 AM EDT Consult Orthopedic Surgery - [place] [address] [facility] [address] [place] [phone] Michele May MD 175 [facility] [address] [place] [address] 03/03/2025 10:50 AM EDT Office Visit Pulmonolgy - [place] [address] [facility] [address] [place] [phone] Cami Dupont NP 175 [facility] [address] [place] [address] 04/08/2025 9:40 AM EDT Appointment Radiology Department - [address] [phone] 04/12/2025 10:00 AM EDT Office Visit Urogynecology - [address] [phone] Shani Aquino MD [address] [facility] [address] [place] [address] 06/02/2025 9:45 AM EDT Office Visit Adult Medicine [facility] [address] [place] [address] Timmy Avina PA [address] [place] [address] Health Maintenance Due Date Last Done Comments Diabetes: Annual Retina Eye Exam 1965 RSV Immunization Adult Patients (1 - Risk 60-74 years 1-dose series) 2014 Falls Risk Assessment 09/21/2022 Social Influencers of Health Screening 09/21/2022 Medicare Annual Wellness Visit 06/11/2024 06/11/2023 COVID-19 Vaccine ( season) 2024 11/07/2021, 01/17/2021 Diabetes: Annual Foot Exam 01/07/2025 01/08/2024 Diabetes: Blood Sugar Control Test (HGBA1C) 07/29/2025 01/27/2025, 09/23/2024, 03/29/2024, Additional history exists Depression Screening 08/11/2025 08/11/2024 Diabetes: Annual Urine Albumin-Creatinine Ratio (uACR) 09/23/2025 09/23/2024, 12/13/2022 Colorectal Cancer Screening: Colonoscopy 12/21/2025 12/21/2020, 05/19/2017 Diabetes: Annual GFR (Glomerular Filtration Rate) 01/27/2026 01/27/2025, 12/20/2024, 09/23/2024, Additional history exists Hypertension/CHF/CAD Annual BMP Blood Test 01/27/2026 01/27/2025, 12/20/2024, 09/23/2024, Additional history exists Breast Cancer Screening 03/29/2026 03/29/20 24, 03/29/2024, 03/12/2023, Additional history exists Cholesterol Screening [...] age to complete this topic Meningococcal B Vaccine Aged Out No l onger eligible based on patient's age to complete this topic RSV Immunization Patients Under 20 months Aged Out No longer eligible based on patient's age to complete this topic Varicella Vaccines Aged Out No longer eligible based on patient's age to complete this topic Procedures Procedure Name Priority Date/Time Associated Diagnosis Comments XR HAND 3+ VIEWS LEFT Routine 01/27/2025 11:39 AM EDT Pain of left hand XR ELBOW 3+ VIEWS RIGHT Routine 01/27/2025 11:39 AM EDT Right elbow pain ..POTASSIUM, PLASMA Routine 01/27/2025 1 1:14 AM EDT Hypokalemia HEMOGLOBIN A1C Routine 01/27/2025 11:14 AM EDT Uncontrolled type 2 diabetes mellitus with hyperglycemia ([facility] V24, [facility] V28) BASIC METABOLIC PANEL Routine 01/27/2025 11:14 AM EDT Uncontrolled type 2 diabetes mellitus with hyperglycemia (CMS/HCC V24, CMS/HCC V28) ECG INTERPRETATION AND REPORT ONLY Routine 12/23/2024 12:[address] REPORT Routine 12/23/2024 12 :[address] REPORT Routine 12/23/2024 11 :[address] REPORT Routine 12/23/2024 11 :56 AM EDT EXTERNAL XRAY REPORT Routine 12/23/2024 11:55 AM EDT EXTERNAL XRAY REPORT Routine 12/23/2024 11:52 AM EDT EXTERNAL XRAY REPORT 12/23/2024 EXTERNAL XRAY REPORT 12/23/2024 EXTERNAL XRAY REPORT 12/23/2024 EXTERNAL XRAY REPORT 12/23/2024 BASIC METABOLIC PANEL Routine 12/20/2024 11:44 AM EDT Hypokalemia XR HAND 3+ VIEWS LEFT Routine 12/20/2024 11:22 AM EDT Hand pain, left MICROALBUMIN CREATININE URINE RATIO Routine 09/23/2024 2:36 PM EST Type 2 diabetes mellitus with cataract (CMS/HCC V24, CMS/HCC V28) LIPID PANEL WITH REFLEX TO DIRECT LDL [...] Recently Relevant to Health Maintenance Results * XR Hand 3+ Views Left (01/27/2025 11:39 AM EDT) Only the most recent of2 resultswithin the time period is included. Anatomical Region Laterality Modality Upper Extremities, Hand Left Radiogra phic Imaging 01/27/2025 4:58 PM EDT Impressions 01/27/2025 5:02 PM EDT Flexed 3rd digit. ??No acute changes from prior examination. -------- FINAL REPORT -------- Dictated By: Fred Huffman Dictated Date: 01/27/2025 16:58 ET Assigned Physician: Fred Huffman Reviewed and Electronically Signed By: Fred Huffman Signed Date: 01/27/2025 17:02 ET Workstation ID: [id number] Transcribed By: Self Edit Transcribed Date: 01/27/2025 16:58 ET Narrative 01/27/2025 5:02 PM EDT XR HAND 3+ VIEWS LEFT Reason: hand pain Comparison: Radiographs on December 20, 2024. FINDINGS: The 3rd digit is flexed, which limits evaluation. ??No acute fracture or other acute change from prior examination. Procedure Note Fred Huffman MD - 01/27/2025 XR HAND 3+ VIEWS LEFT Reason: hand pain Comparison: Radiographs on December 20, 2024. FINDINGS: The 3rd digit is flexed, which limits evaluation. No acute fracture orother acute change from prior examination. IMPRESSION: Flexed 3rd digit. No acute changes from prior examination. -------- FINAL REPORT -------- Dictated By: Fred Huffman Dictated Date: 01/27/2025 16:58 ET Assigned Physician: Fred Huffman Reviewed and Electronically Signed By: Fred Huffman Signed Date: 01/27/2025 17:02 ET Workstation ID: [id number] Transcribed By: Self Edit Transcribed Date: 01/27/2025 16:58 ET Ashwin Arzola MD IMG XR PROCEDURES Final Result * XR Elbow 3+ Views Right (01/27/2025 11:39 AM EDT) Anatomical Region Laterality Modality Upper Extremities, Elbow Right Radiogr aphic Imaging 01/27/2025 4:50 PM EDT Impressions 01/27/2025 4:52 PM EDT No acute fracture or dislocation. -------- FINAL REPORT -------- Dictated By: Fred Huffman Dictated Date: 01/27/2025 16:50 ET Assigned Physician: Fred Huffman Reviewed and Electronically Signed By: Fred Huffman Signed Date: 01/27/2025 16:52 ET Workstation ID: [id number] Transcribed By: Self Edit Transcribed Date: 01/27/2025 16:50 ET Narrative 01/27/2025 4:52 PM EDT XR ELBOW 3+ VIEWS RIGHT Reason: elbow pain Comparison: None FINDINGS: Normal alignment. ??No acute fracture. ??Mild contour irregularity at the level of the medial epicondyle of the humerus may be sequela from prior trauma. ??Joint spaces are preserved. ??No elbow joint effusion. Procedure Note Fred Huffman MD - 01/27/2025 XR ELBOW 3+ VIEWS RIGHT Reason: elbow pain Comparison: None FINDINGS: Normal alignment. No acute fracture. Mild contour irregularity at thelevel of the medial epicondyle of the humerus may be sequela from priortrauma. Joint spaces are preserved. No elbow joint effusion. IMPRESSION: No acute fracture or dislocation. -------- FINAL REPORT -------- Dictated By: Fred Huffman Dictated Date: 01/27/2025 16:50 ET Assigned Physician: Fred Huffman Reviewed and Electronically Signed By: Fred Huffman Signed Date: 01/27/2025 16:52 ET Workstation ID: [id number] Transcribed By: Self Edit Transcribed Date: 01/27/2025 16:50 ET Ashwin Arzola MD IMG XR PROCEDURES Final Result * Potassium, plasma (01/27/2025 11:14 AM EDT) Potassium 3.8 3.5 - 5.5 mmol/L LAB CHEMISTRY METHOD 01/27/2025 12:28 PM EDT [facility] Blood Venous blood specimen / Unknown Venipuncture / Unknown 01/27/2025 11:14 AM EDT 01/27/2025 11:14 AM EDT us Ashwin Arzola MD LAB BLOOD ORDERABLES Final Resu lt [facility] [address] [place] [address], [place] [phone] * (ABNORMAL) Hemoglobin A1c (01/27/2025 11:14 AM EDT) [facility] Hemoglobin A1C 7.7(H) <6.5 % LAB CHEMISTRY METHOD 01/27/2025 2:02 PM EDT [facility] Mean Bld Glu Estim. 174 mg/dL LAB CHEMISTRY METHOD 01/27/2025 2:02 PM EDT [facility] Blood Venous blood specimen / Unknown Venipuncture / Unknown 01/27/2025 11:14 AM EDT 01/27/2025 11:14 AM EDT us Ashwin Arzola MD LAB BLOOD ORDERABLES Final Resu lt [facility] [address] [place] [address], [place] [phone] * (ABNORMAL) Basic metabolic panel (01/27/2025 11:14 AM EDT) Only the most recent of2 resultswithin the time period is included. Pathologist [facility] Sodium 137 133 - 145 mmol/L LAB CHEMISTRY METHOD 01/27/2025 2:53 PM EDT [facility] Potassium 4.1 3.5 - 5.5 mmol/L LAB CHEMISTRY METHOD 01/27/2025 2:53 PM [facility] Chloride 102 96 - 110 mmol/L LAB CHEMISTRY METHOD 01/27/2025 2:53 PM [facility] CO2 31 21 - 32 mmol/L LAB CHEMISTRY METHOD 01/27/2025 2:53 PM [facility] Anion Gap 4 3 - 11 LAB CHEMISTRY METHOD 01/27/2025 2:53 PM T [facility] Glucose 129(H) 70 - 100 mg/dL LAB CHEMISTRY METHOD 01/27/2025 2:53 PM [facility] BUN 11 5 - 25 mg/dL LAB CHEMISTRY METHOD 01/27/2025 2:53 PM [facility] Creatinine 0.56 0.50 - 1.10 mg/dL LAB CHEMISTRY METHOD 01/27/2025 2:53 PM [facility] eGFR 98 >=60 mL/min/1. 73m2 LAB CHEMISTRY METHOD 01/27/2025 2:53 PM [facility] Comment:Calculation based on the??Chronic Kidney Disease Epidemiology Collaboration (CKD-EPI) equation refit??without adjustment for race. BUN/Creatinine Ratio 19.6 LAB CHEMISTRY METHOD 01/27/2025 2:53 PM [facility] Calcium 9.5 8.5 - 10.5 mg/dL LAB CHEMISTRY METHOD 01/27/2025 2:53 PM T [facility] Blood Venous blood specimen / Unknown Venipuncture / Unknown 01/27/2025 11:14 AM EDT 01/27/2025 11:14 AM EDT us Ashwin Arzola MD LAB BLOOD ORDERABLES Final Resu lt [facility] [address] [place] [address], * ECG Interpretation and Report Only (12/23/2024 12:07 PM EDT) us Historical Provider MD ECG ORDERABLES Final Res ult * External CT Report (12/23/2024 12:04 PM EDT) Only the most recent of3 resultswithin the time period is included. Anatomical Region Laterality Modality Computed Tomogra phy us Historical Provider MD IMG CT PROCEDURES Final R esult * External Xray Report (12/23/2024 11:55 AM EDT) Only the most recent of6 resultswithin the time period is included. Anatomical Region Laterality Modality Radiographic Petra ging Historical Provider MD IMG XR PROCEDURES Final R esult * (ABNORMAL) Lipid panel with reflex to direct LDL (09/23/2024 2:36 PM EST) Cholesterol 155 0 - 200 mg/dL LAB CHEMISTRY METHOD 09/23/2024 5:43 PM [facility] Triglycerides 153(H) 0 - 150 mg/dL LAB CHEMISTRY METHOD 09/23/2024 5:43 PM [facility] HDL 72 >=40 mg/dL LAB CHEMISTRY METHOD 09/23/2024 5:43 PM [facility] LDL Calculated 52 0 - 100 mg/dL LAB CHEMISTRY METHOD 09/23/2024 5:43 PM [facility] VLDL Cholesterol Jacoby 30.6 mg/dL LAB CHEMISTRY METHOD 09/23/2024 5:43 PM [facility] Non HDL Chol. (LDL+VLDL) 83 <145 mg/dL LAB CHEMISTRY METHOD 09/23/2024 5:43 PM [facility] Chol/HDL Ratio 2.2 0.0 - 4.4 LAB CHEMISTRY METHOD 09/23/2024 5:43 PM [facility] Blood Venous blood specimen / Unknown Venipuncture / Unknown 09/23/2024 2:36 PM EST 09/23/2024 2:36 PM EST us Ashwin Arzola MD LAB BLOOD ORDERABLES Final Resu lt Performing Organization Address City/[facility]/ZIP Co de Phone Number [facility] [address] [place] [address], [place] [phone] * (ABNORMAL) Microalbumin creatinine urine ratio (09/23/2024 2:36 PM EST) Creatinine, Urine 327.0 mg/dL LAB CHEMISTRY METHOD 09/23/2024 6:24 PM EST [facility] Microalb, Ur 131.0(H) 0.0 - 29.0 mg/L LAB CHEMISTRY METHOD 09/23/2024 6:24 PM EST [facility] Microalb/Crea t Ratio 40(H) <30 mg/g creat LAB CHEMISTRY METHOD 09/23/2024 6:24 PM EST [facility] Urine Urine specimen obtained by clean catch procedure / Unknown Non-blood Collection / Unknown 09/23/2024 2:36 PM EST 09/23/2024 2:36 PM EST us Ashwin Arzola MD LAB URINE ORDERABLES Final Resu lt Performing Organization Address City/[facility]/ZIP Co de Phone Number [facility] [address] [place] [address], [place] [phone] * Depression Screening (08/11/2024) Depression Screening abstracted us Historical Provider HEALTH MAINTENANCE Final Result * [...] bone mineral density by WHO criteria. [facility] Department of Internal Medicine recommends using National [...] alternative screening schedule based on dia [place]., [facility] October 31, 2011 for patients with osteopenia [...] bone mineral density by WHO criteria. [facility] Department of Internal Medicine recommendsusing National Osteoporosis [...] higher), BMD testingevery 15 years Michaela PERALTA [employer] DXA PROCEDURES Final Result * Colonoscopy (05/19/2017) Colonoscopy abstracted, no interpretation Anatomical Region Laterality Modality Other Historical Provider HEALTH MAINTENANCE Final Result * Hepatitis C Screening (05/04/2014) Hepatitis C Screening abstracted us Historical Provider HEALTH MAINTENANCE Final Result from Last 3 Months or Most Recently Relevant to Health Maintenance Insurance [employer] MED[employer]ARE Member Subscriber Plan / Payer (Ef fective 2024-Present) Name:Melyssa Keating Relation to Subscriber:Self Name:Melyssa Keating Payer ID:[id number] Group ID:[id number] Type:Not on file Address: [place] [address] [address] [phone] Care Teams Forestry Pilot Relationship Specialty Start Date End Date Ashwin Arzola MD [address] [place] [id number] PCP - General Internal Medicine 08/01/20
--- OUTSIDE RECORDS SUMMARY | 2025-02-03 14:08 | XMS_ITS | Encounter Summary ---
Author Organization [employer] Address [address] [place] [address] Care Team Providers Care Estate Planning Paralegal Name Role Phone Ashwin Arzola MD Primary Care Provider Encounter Details Date Type Department Care Team (Late Contact Info) Description 01/19/2025 Billing Patient Not Present Adult Medicine [address] [phone] Ashwin Arzola MD [address] [place] [id number] Social History Tobacco Use Types Packs/Day Years [...] Description 02/09/2025 10:00 AM EDT Ancillary Procedure [facility] [address] [facility] [address] [place] [phone] 02/10/2025 10:00 AM EDT Consult Orthopedic Surgery - [place] [address] [facility] [address] [place] [phone] Michele May MD 175 [facility] [address] [place] [address] 03/03/2025 10:50 AM EDT Office Visit Pulmonolgy - [place] [address] [place] [phone] Cami Dupont NP 175 [facility] [address] [place] [address] 04/08/2025 9:40 AM EDT Appointment Radiology Department - [address] [phone] 04/12/2025 10:00 AM EDT Office Visit Urogynecology - [address] [phone] Shani Aquino MD [address] [place] [address] [address] [place] [address] 06/02/2025 9:45 AM EDT Office Visit [facility] - [address] [phone] Timmy Avina PA [address] [place] [address] documented as of this encounter Visit Diagnoses Not on filedocumented in this encounter Care Teams Estate Planning Paralegal Relationship Specialty Start Date End Date Ashwin Arzola MD [address] [place] [address] PCP - General Internal Medicine 08/01/20 documented as of this encounter
--- NOTE | 2025-02-03 14:38 | W.PM.OPN ---
Operative Note Operative Note Date of Service: 02/03/25 Narrative: Procedure Description: EGD Indication: food bolus obstruction Anesthesia: MAC FLEXIBLE TRANSORAL UPPER GASTROINTESTINAL ENDOSCOPY UPPER ENDOSCOPY Consent: Indications for the procedure and potential complications of bleeding, perforation, reaction to medications and missed diagnosis were discussed with the patient and informed consent was obtained. Instrument: Olympus GIF H 190 J mid size upper endoscope Monitoring: Vital signs and clinical assessment, continuous EKG monitoring, Pulse oximetry, Carbon Dioxide monitoring and blood pressure monitoring were done throughout the procedure. Procedure: The patient was placed in the left lateral decubitis position and pre-procedure medications were administered and a bite block was placed. The endoscope was inserted into the mouth and advanced under direct vision to the third part of duodenum. A careful inspection was made as the upper endoscope was withdrawn including a retroflexed examination of the proximal stomach; Findings and interventions are described below. Findings: Larynx:normal Esophagus: GE junction at 34 cm, diaphragm hiatus at 37 cm, consistent with 3 cm hiatal hernia. Food bolus was noted at the UES and was pushed down into the stomach. A slight tear was noted at the UES. white adherent plaques noted consistent with rhonda. Stomach: patchy erythema . Grade 2 flap valve on retroflexed examination of the cardia. Duodenum: Normal bulb and descending duodenum, Intervention: food bolus removal Impression/Findings: esophageal stricture esophageal candidiasis PLAN: confirm compliance with PPI 3 weeks course of fluconazole GERD precautions f/u with o/p GI clinic
[2025-02-03] MEDS: Mag&Al/Sim/Diphenhyd/Lidocaine 10 ML ORAL.SUSP PO (15:20)
== END 2025-02-03 17:43 | disposition home or self-care (01) ==
LOC: HO.ED 14:53 → HO.SSS 15:15
PROVIDERS: Internal Medicine Gastroenterology; Emergency Provider Emergency Medicine; PCP Internal Medicine; Visit Provider Emergency Medicine
PROC: 0DJ08ZZ Inspection of Upper Intestinal Tract, Via Natural or Artificial Opening Endoscopic (ICD-10-PCS; CPT 43235; principal; 2025-02-03 15:30)
DX: T18.128A Food in esophagus causing other injury, initial encounter (principal); W44.F3XA Food entering into or through a natural orifice, initial encounter; B37.81 Candidal esophagitis; K22.2 Esophageal obstruction; K44.9 Diaphragmatic hernia without obstruction or gangrene; Y93.89 Activity, other specified; Y92.039 Unspecified place in apartment as the place of occurrence of the external cause; Y99.9 Unspecified external cause status; R06.02 Shortness of breath; R13.14 Dysphagia, pharyngoesophageal phase; K21.9 Gastro-esophageal reflux disease without esophagitis; E11.9 Type 2 diabetes mellitus without complications; I10 Essential (primary) hypertension; E78.5 Hyperlipidemia, unspecified; G47.33 Obstructive sleep apnea (adult) (pediatric); D64.9 Anemia, unspecified; J45.901 Unspecified asthma with (acute) exacerbation; Z79.84 Long term (current) use of oral hypoglycemic drugs; Z79.899 Other long term (current) drug therapy; Z79.4 Long term (current) use of insulin
CPT/HCPCS: 43247; 31575; 36415; 71045; 80048; 80076; 83735; 85025; 93005; 96374; 96375; 99284; 99285; J0171; J1610; J2003; J2405; J2704; J3010

== ENCOUNTER → 2025-02-03 11:43 | Outpatient (BNV) | payer OTHER, SELFPAY | PROVIDERS: Emergency Provider Emergency Medicine; PCP Internal Medicine; Visit Provider Internal Medicine Gastroenterology | DX: T18.128A Food in esophagus causing other injury, initial encounter (principal); W44.F3XA Food entering into or through a natural orifice, initial encounter; R13.14 Dysphagia, pharyngoesophageal phase | CPT/HCPCS: 43247; 99282 ==

== ENCOUNTER → 2025-02-03 11:52 | Outpatient (BNV) | payer OTHER, SELFPAY | PROVIDERS: Emergency Provider Emergency Medicine; PCP Internal Medicine; Visit Provider Internal Medicine | DX: R06.02 Shortness of breath (principal) | CPT/HCPCS: 93010 ==

== ENCOUNTER → 2025-02-03 11:55 | Outpatient (BNV) | payer OTHER, SELFPAY | PROVIDERS: Emergency Provider Emergency Medicine; PCP Internal Medicine; Visit Provider Radiology Diagnostic Radiology | DX: T18.120A Food in esophagus causing compression of trachea, initial encounter (principal) | CPT/HCPCS: 71045 ==

== ENCOUNTER 2025-02-09 15:21 | Emergency (ER) | payer OTHER, SELFPAY ==
--- NOTE | ~2025-02-09 | XR_ITS ---
EXAMINATION: XR CHEST CLINICAL INFORMATION: sob COMPARISON: 02/03/2025. TECHNIQUE: Frontal view of the chest was obtained. FINDINGS: Mild cardiac enlargement. Mediastinal and hilar contours appear normal. Aortic mural calcifications. The lungs are clear bilaterally. No pneumothorax or effusion. No focal osseous or soft tissue abnormality. There are spinal degenerative changes. XR/XR chest 1V IMPRESSION: No active pulmonary disease. Electronically signed by: Gt Blum MD 02/09/2025 04:17 PM EDT
[2025-02-09 15:31] VITALS: BP 140/50; BP 156/60; PULSE 102; PULSE 95; RESP 24; TEMP 36.8; O2SAT 95; BMI 34.9
--- NOTE | 2025-02-09 15:40 | PC.NURSE ---
LS dim/clear throughout with + rhonchorous cough; pt reports feeling SOB for 2 weeks and not getting better; denies CP; reports mid back pain and [place]; no other complaints at this time
--- NOTE | 2025-02-09 15:55 | ED_ITS ---
HPI - SOB/Dyspnea General Chief Complaint: Dyspnea Stated Complaint: diff breathing Time Seen by Provider: 02/09/25 15:23 History of Present Illness HPI Narrative: Patient is a 69-year-old female presented today with having increasing shortness of breath wheezing. Coughing upper respiratory symptoms generalized malaise. Denies any history of congestive heart failure. Denies any leg swelling. Positive weakness. Positive chills no fever. No diaphoresis. No orthopnea. Related Data Home Medications ?Medication ?Instructions ?Recorded ?Confirmed blood sugar diagnostic (ParLevel SystemsTouch #10 ea 09/27/22 10/20/23 Ultra Test strips) lancets 33 gauge (ParLevel SystemsTouch Delica #100 ea 09/27/22 10/20/23 Plus Lancet) [id number]-qvkiywgdqfjuz-vstldptm 1 tab PO Q6H PRN Headache 10/17/23 02/03/25 50 mg-325 mg-40 mg tablet docusate sodium 100 mg capsule 100 mg PO BID 11/16/23 02/03/25 sennosides 8.6 mg tablet (senna) 8.6 mg PO DAILY 11/16/23 02/03/25 amitriptyline 150 mg tablet 150 mg PO BEDTIME 04/11/24 02/03/25 amitriptyline 50 mg tablet 50 mg PO BEDTIME 04/11/24 10/26/24 gabapentin 300 mg capsule 300 mg PO TID 04/11/24 02/03/25 fluticasone fur. 100 mcg-umeclid 1 ea inhalation DAILY 10/26/24 02/03/25 62.5 mcg-vilant 25 mcg inhalat.powder (Trelegy Ellipta) tramadol 50 mg tablet 50 mg PO Q8H PRN Pain 10/26/24 02/03/25 clonazepam 0.5 mg tablet 0.5 mg PO TID PRN Pain 12/23/24 02/03/25 duloxetine 20 mg capsule,delayed 60 mg PO DAILY 12/23/24 02/03/25 release loratadine 10 mg tablet 10 mg PO DAILY 12/23/24 02/03/25 metformin 500 mg tablet,extended 500 mg PO DAILY 12/23/24 02/03/25 release 24 hr metoclopramide HCl 10 mg tablet 10 mg PO QID 12/23/24 02/03/25 metoprolol tartrate 25 mg tablet 25 mg PO DAILY 12/23/24 02/03/25 montelukast 10 mg tablet 10 mg PO BEDTIME 12/23/24 02/03/25 potassium chloride 20 mEq 20 meq PO DAILY 12/23/24 12/23/24 tablet,extended release(part/cryst) budesonide-formoterol HFA 160 inhalation 02/03/25 mcg-4.5 mcg/actuation aerosol inhaler ciclopirox 0.77 % topical gel 1 appl topical BID 02/03/25 02/03/25 famotidine 20 mg tablet 20 mg PO DAILY 02/03/25 02/03/25 furosemide 40 mg tablet (Lasix) 40 mg PO 02/03/25 magnesium oxide 400 mg PO DAILY 02/03/25 02/03/25 pantoprazole 40 mg tablet,delayed 40 mg PO DAILY 02/03/25 02/03/25 release Previous Rx's ?Medication ?Instructions ?Recorded atorvastatin 80 mg tablet 80 mg PO BEDTIME #0 tabs 10/29/23 insulin glargine 100 unit/mL 10 unit (0.1 mL) subcut BEDTIME 12/25/24 subcutaneous solution (Lantus #10 mL U-100 Insulin) fluconazole 100 mg tablet 100 mg PO DAILY #21 tabs 02/03/25 azithromycin 250 mg tablet 250 mg PO DAILY 4 days #4 tabs 02/09/25 prednisone 20 mg tablet 40 mg (2 x 20 mg) PO DAILY #10 tabs 02/09/25 Allergies Allergy/AdvReac Type Severity Reaction Status Date / Time Penicillins Allergy Mild Swelling Verified 02/09/25 15:33 Review of Systems 2 Review of Systems: Positive shortness breath positive coughing upper respiratory symptoms Yes all other systems are reviewed and are negative [facility] Past Medical History Attestation statement: The following information was validated with the patient. Medical History Seizure disorder JOSÉ (obstructive sleep apnea) Delusions Major neurocognitive disorder Chest pain Dyspnea on exertion COVID-19 GERD (gastroesophageal reflux disease) DJD (degenerative joint disease) COPD (chronic obstructive pulmonary disease) Bipolar disorder CTS (carpal tunnel syndrome) Hx of rheumatoid arthritis Diabetic neuropathy Urinary incontinence Aneurysm of middle cerebral artery Pulmonary nodules CHF (congestive heart failure) Palpitations Migraine History of COVID-19 Mild aortic stenosis Asthma Insulin dependent type 2 diabetes mellitus Mixed hyperlipidemia Mood disorder Essential hypertension Surgical History No pertinent past surgical history Hx of cataract surgery H/O: hysterectomy Hx of cholecystectomy History of carpal tunnel release Family History Family History Mother Myocardial infarction Father Myocardial infarction Sister Breast cancer Brother Spleen cancer Social History Social History Household Members: None Housing: Apartment Do you presently have 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) Unable to assess alcohol history related to: Unable to respond Alcohol intake: never Comment: report given by Cleo menendez Patient Tobacco Use Status: Never used Tobacco Tobacco use type: Cigarette Cigarette Packs Per Day: 0.2 Cigarettes Per Day: 4.0 Years Smoked: [id number] Smoked in Last 30 Days: No e-Cigarette/Vaping Use: Never Used Second Hand Smoke Exposure: No Use of substances other than those prescribed or required for medical reasons: No Advance Directives: Yes Advance Directives on File: Yes Advance Directives Date on File: 11/20/23 Do you have a plan to hurt others: No Plan service: No Current occupational status: retired Sexual orientation: Straight/Heterosexual Physical Exam 2 Vital Signs: Vital Signs: Last Vital Signs Temp 98.3 F 02/09/25 19:21 Pulse 92 02/09/25 19:21 Resp 13 02/09/25 19:21 BP 147/60 H 02/09/25 19:21 Pulse Ox 95 02/09/25 19:37 O2 Del Method Room Air 02/09/25 19:21 O2 Flow Rate 2 02/09/25 16:37 BMI result Body Mass Index 34.9 Appearance: Alert. Oriented X3. No acute distress. Eyes: Pupils equal, round and reactive to light. ENT: Pharynx normal. Neck: Normal inspection. Neck supple. No lymph nodes noted. No crepitus CVS: Normal heart rate and rhythm. Pulses normal. Normal S1 and S2 Respiratory: No respiratory distress. Breath sounds normal. Minimal wheezing. No rales Abdomen: Soft and nontender. No rigidity. No distention. good BS x4 Skin: Skin warm and dry. Normal skin color. Normal skin turgor. Extremities: No lower extremity edema. Neurovascular intact to all extremities. No Lacerations. No Rash Neuro: Oriented X 3. No motor deficit. No sensory deficit. Moving all extermities. No slurred speech Medications Administered Discontinued Medications Generic Name Dose Route Start Last Admin Trade Name Juan PRN Reason Stop Dose Admin Albuterol/Ipratropium 3 ml 02/09/25 15:58 02/09/25 16:10 Albuterol/Iprat 2.5/0.5mg 3 Ml Ampul.Neb INHALE 02/09/25 15:59 3 ml ONCE ONE Administration Methylprednisolone Sodium Succinate 125 mg 02/09/25 16:00 02/09/25 16:40 Methylprednisolone Sod Succ 125 Mg/2 Ml Vial IVPUSH 02/09/25 16:01 125 mg ONCE ONE Administration Medical Decision Making Medical Decision Making [facility] Narrative: Patient is 69 years old positive shortness of breath positive coughing. Patient has a history of asthma. Her BNP is normal there is no evidence for congestive heart failure. Two sets of troponin were roughly the same. Patient has no chest pain symptoms not consistent with ACS. Patient's VBG by my interpretation showed no CO2 retention. A chest x-ray was done my interpretation patient's chest x-ray showed no focal infiltrate patient was given neb treatment and steroids. Will ambulate patient monitor. Patient monitored in the emergency department. Ambulated on room air. Patient's O2 sat was 95-96%. No distress. Will give patient additional steroid antibiotic will discharge patient home joint decision was made to have patient closely follow up on an outpatient basis which patient agrees in stable condition Differential Diagnosis Differential Diagnoses: The differential diagnosis associated with the presentation includes Pneumonia, asthma Admission/Observation Consideration of admission/observation: Escalation of care including admission/observation considered Considered admission given patient's age Lab Data [facility] Lab Attestation statement: I reviewed the patient's lab results. 02/09/25 16:26 02/09/25 16:26 Labs: Lab Results 02/09/25 02/09/25 02/09/25 Range/Units 16:26 16:33 17:48 WBC 7.0 (4.8-10.8) X10*3/uL RBC 4.29 (4.20-5.50) X10*6/uL Hgb 10.4 L (12.0-16.0) g/dl Hct 34.3 L (37.0-47.0) % MCV 80.0 (80.0-98.0) fL MCH 24.2 L (27.0-33.0) pg MCHC 30.3 L (31.0-35.0) g/dl RDW 18.1 H (11.0-16.0) % Plt Count 232 (160-400) X10*3/uL MPV 10.2 (9.4-12.3) fL Immature Gran % (Auto) 0.3 (0.0-0.4) % Neut % (Auto) 68.0 (45-73) % Lymph % (Auto) 24.1 (20-40) % [place]asta % (Auto) 6.2 (2-11) % Eos % (Auto) 1.1 (0-4) % Baso % (Auto) 0.3 (0-2) % Lymph # (Auto) 1.7 (1.2-4.9) X10*3/uL [place] # (Auto) 0.4 (0.1-1.2) X10*3/uL Eos # (Auto) 0.1 (0.0-0.4) X10*3/uL Baso # (Auto) 0.0 (0.0-0.2) X10*3/uL Abs Immat Gran (auto) 0.02 (0.00-0.03) X10*3/uL Absolute Neuts (auto) 4.8 (2.0-8.3) x10*3/uL Absolute Nucleated RBC 0.000 (0.0-0.012) X10*3/uL Nucleated RBC % (auto) 0.0 (0.0-0.2) /100WBC VBG pH 7.46 H (7.32-7.43) VBG pCO2 43 mmHg VBG pO2 41 mmHg VBG HCO3 31 H (22-26) mmol/L VBG O2 Saturation 60.0 % VBG Base Excess 7.0 mmol/L Sodium 143 (135-145) mmol/L Potassium 3.2 L (3.3-5.1) mmol/L Chloride 105 (96-108) mmol/L Carbon Dioxide 28 (22-29) mmol/L Anion Gap 13 (12-20) BUN 13 (9-16) mg/dL Creatinine 0.65 (0.5-1.4) mg/dL Estim Creat Clear Calc 82.2 Estimated GFR > 60 Random Glucose 101 (60-115) mg/dL Lactic Acid 1.4 (0.5-2.0) mmol/L Calcium 9.8 (8.4-10.2) mg/dL Troponin I High Sens 23.7 H 23.0 H (<3.5-17.0) ng/L B-Natriuretic Peptide 84 (<100) pg/mL Influenza Type A (PCR) NEGATIVE (Negative) Influenza Type B (PCR) NEGATIVE (Negative) RSV RNA Qual (PCR) NEGATIVE (Negative) SARS-CoV-2 RNA (RT-PCR) NEGATIVE (Negative) Independent Interpretation I performed an independent interpretation of an: EKG (Heart rate is 90 DE QRS QTC within normal limits is no acute ST segment elevation) and Plain X-Ray (Chest x-ray negative for pneumonia pneumothorax) Radiology Impression Discussion of test interpretation with radiology: I have reviewed the radiologist's reading. Discharge Plan Discharge Clinical Impression: Asthma Patient Disposition: Home, Self-Care Instructions: Asthma (DC) Prescriptions: New azithromycin 250 mg tablet 250 mg PO DAILY 4 Days Qty: 4 0RF Rx Instructions: start on day 2 of therapy prednisone 20 mg tablet 40 mg PO DAILY Qty: 10 0RF No Action drbtbzxvxo-khjlwkzosrbfy-qejc 50-325-40 mg tablet 1 tab PO Q6H PRN (Reason: Headache) atorvastatin 80 mg Tablet 80 mg PO BEDTIME Qty: 0 0RF sennosides [senna] 8.6 mg tablet 8.6 mg PO DAILY docusate sodium 100 mg capsule 100 mg PO BID tramadol 50 mg tablet 50 mg PO Q8H PRN (Reason: Pain) Trelegy Ellipta 100-62.5-25 mcg blister with device 1 ea inhalation DAILY amitriptyline 150 mg tablet 150 mg PO BEDTIME Rx Instructions: with 50 mg amitriptyline 50 mg tablet 50 mg PO BEDTIME Rx Instructions: with 150 mg gabapentin 300 mg capsule 300 mg PO TID metformin 500 mg tablet extended release 24 hr 500 mg PO DAILY clonazepam 0.5 mg tablet 0.5 mg PO TID PRN (Reason: Pain) potassium chloride 20 mEq tablet,ER particles/crystals 20 meq PO DAILY Rx Instructions: not on list/ patient unsure if taking or not montelukast 10 mg tablet 10 mg PO BEDTIME loratadine 10 mg tablet 10 mg PO DAILY metoclopramide HCl 10 mg tablet 10 mg PO QID metoprolol tartrate 25 mg tablet 25 mg PO DAILY duloxetine 20 mg capsule,delayed release(DR/EC) 60 mg PO DAILY insulin glargine [Lantus U-100 Insulin] 100 unit/mL solution 10 unit subcut BEDTIME Qty: 10 0RF budesonide-formoterol 160-4.5 mcg/actuation Hfa Aerosol Inhaler INHALATION ciclopirox 0.77 % Gel 1 appl TOPICAL BID famotidine 20 mg Tablet 20 mg PO DAILY furosemide [Lasix] 40 mg Tablet 40 mg PO pantoprazole 40 mg Tablet,Delayed Release (Dr/Ec) 40 mg PO DAILY magnesium oxide 400 mg magnesium Capsule 400 mg PO DAILY fluconazole 100 mg tablet 100 mg PO DAILY Qty: 21 0RF (DME) lancets [OneTouch Delica Plus Lancet] 33 gauge misc See Rx Instructions .ROUTE BID Qty: 100 Rx Instructions: As directed (DME) OneTouch Ultra Test Strip See Rx Instructions .ROUTE BID Qty: 10 Rx Instructions: As directed Referrals: Ashwin Arzola III, MD [Primary Care Provider] - 02/11/25 Print Language: Vietnamese
--- NOTE | 2025-02-09 15:59 | ECG_ITS ---
Test Reason : SOB Blood Pressure : */* mmHG Vent. Rate : 93 BPM Atrial Rate : 93 BPM P-R Int : 148 ms QRS Dur : 72 ms QT Int : 366 ms P-R-T Axes : 38 -11 18 degrees QTcB Int : 455 ms Normal sinus rhythm Normal ECG When compared with ECG of 03-Feb-2025 12:03, No significant change was found Referred By: Sveta Cortez Electronically Signed By: Michael Cano
[2025-02-09 16:10] VITALS: PULSE 95; RESP 16; O2SAT 97
[2025-02-09] MEDS: Albuterol/Iprat 2.5/0.5MG 3 ML AMPUL.NEB INHALE (16:10)
--- OUTSIDE RECORDS SUMMARY | 2025-02-09 16:29 | XMS_ITS | Data Portability ---
Author Organization [employer] [place] [employer] - [employer] Address [address] [place] [address] Care Team Providers Care Customer Service Receptionist Name Role Phone HIM CCA OTHER [facility] Prim carlyn Care Provider Assessment Encounter Date Assessment Date Assessment LastModified by Organization Details LastModified Time 04/23/2024 04/23/2024 As noted, we wer e called to see this patient regarding concerns of hospital discharge. Evaluation in the field was performed by my appliquer colleague, as noted above, I provided real-time [...] Assessment and Plan as documented by the Sports Writer. We discussed the diagnostic uncertainty of home visits and the risk associated with this/ the patient given the opportunity to ask questions. Advised if develops CP/severe SOB/turning blue/uncontrolled n/v/d /AMS/ syncope/ hi fever /cold blue leg or increasing red hot leg with uncontrolled pain to call 911- verbalized understanding of instruction [email or web address] Not available 08/23/2024 18:06:23 Plan of Treatment Reminders Order Date Submit Date Provider Last Modified By Organization Details Last Modified Time Details Appointments None recorded. Lab None recorded. Referral None recorded. Procedures None recorded. Surgeries None recorded. Imaging None recorded. Medication Orders prednisone 10 mg tablet 2023 [facility] #[id number], [address] [place], [address], 19:32:25 azithromyci n 250 mg tablet 2023 [facility] #2071, [address] [place], [address], 4 19:32:25 azithromyci n 250 mg tablet [address] [facility]70776, [address] [place], [place], [id number], 4 19:32:23 prednisone 50 mg tablet 2023 [facility] #2071, [address] [place], [address], 4 19:32:26 prednisone 20 mg tablet [address] [facility]40894, [address] [place], [place], [id number], 4 19:32:23 ipratropium 0.5 mg-albutero l 3 mg (2.5 mg base)/3 mL nebulizatio n soln 2023 024 [facility] #00412, [address] [place], [place], [id number], 4 19:32:23 doxycycline hyclate 100 mg tablet 2023 024 [facility] [address] [place], [address], 4 14:01:33 mupirocin 2 % topical ointment 2023 024 [facility] [address] [place], [address], 4 14:01:34 acetaminoph en 500 mg tablet 2023 024 [email or web address] 0 [facility] #05115, [address] [place], [place], [id number], 4 14:01:28 acetaminoph en 500 mg tablet 2023 024 [facility] [address] [place], [address], 4 14:01:34 bacitracin 500 unit/gram topical ointment 2023 024 [email or web address] 0 [facility] #82845, [address] [place], [place], [id number], 4 18:08:41 doxycycline hyclate 100 mg tablet 2023 024 [email or web address] 0 [facility] #69766, [address] [place], [place], [id number], 4 18:08:42 Patient TargetsNo targets recorded. Patient Instructions Encounter Date Encounter Id Patient Instructions Last Modified By Organization Details Last Modified Time 08/23/2024 [id number] application of wound dressing* - Wound cleansed with saline, pat dry with gauze, then superficial bacitracin applied,.I prefer mupirocin but the medic did not have any. Then bulky dry sterile dressing applied limiting tape on the skin and medic left some dressing supplies for the patient [email or web address] Not available 08/23/2024 18:08:41 Reason for Referral None Reported. Medical Equipment None Reported. Allergies Allergen ID Allergen Name Allergen Category Reaction Reaction Severity Criticality Documentation Date Start Date Code Code System Note Provider Name and Address Organization Details Recorded Time 9765 Product containin g penicilli n (product) medicatio n Not available Not available Not available 08/10/2024 63011 8001 SNOMED Not Available [facility] - production [...] Available No t Available Easy Comfort Pen [place] 31 gauge x 5/16 USE DIRECTED THREE [...] % 135 mm[Hg] 78 mm[Hg] Not Available [facility] 4 19:42:38 Date Recorded Respiratory rate Heart rate Body temperature Oxygen saturation Oxygen saturation in Arterial blood by Pulse oximetry Systolic blood pressure Diastolic blood pressure Provider Name and Address Organization Details Last Updated DateTime 4 16 /min 74 /min 98.6 [degF] 98 % 98 % 110 mm[Hg] 70 mm[Hg] Not Available [employer] 4 13:42:15 Date Recorded Body temperature Respiratory rate Body weight Body height Heart rate Oxygen saturation Oxygen saturation in Arterial blood by Pulse oximetry Systolic blood pressure Diastolic blood pressure Provider Name and Address Organization Details Last Updated DateTime 4 99.1 [degF] 14 /min 51095.6 g 167.64 cm 90 /min 96 % 96 % 148 mm[Hg] 78 mm[Hg] Not Available [facility] 4 19:25:22 Social History None recorded. Functional Status None recorded. Mental Status None recorded. Family History Nothing Reported. Medical History No medical history recorded. Gynecological HistoryNo gynecological history recorded. Obstetrics History GPAL:G 0 P 0 0 0 0 Past Encounters Encounter ID Performer Location Encounter Start Date Encounter Closed Date Diagnosis/Indication Diagnosis SNOMED-CT Code Diagnosis ICD10 Code Diagnosis Note [id number] Argelia Aceves MD Main - [address] [phone] 02/09/2024 17:15:15 02/09/2024 22:22:30 Injury of head 57294158 S09.90XA 68 year old female being evaluated [...] assessment and plan as documented by the appliquer. I provided real-time medical direction for this encounter and was immediatel y available to provide additional phone-base d assistance as needed. We discussed the diagnostic uncertaint y of home visits and associated risks. We discussed the need to seek care urgently/e mergently in the setting of any new or worsening symptoms. [id number] Gunjan Park MD Main - [facility] [address] [place] [phone] 04/23/2024 19:42:36 04/25/2024 22:12:32 Post-discharge follow-up [id number] [id number] Daya Almanza MD Main - [facility] [address] [place] [phone] 08/23/2024 13:42:09 08/23/2024 21:01:21 Cellulitis of left lower limb [id number] L03.116 puncture wound w/ infectionA dvised need to get x-ray to fully evaluate the extent of the damage-to rule out foreign body, possible fracture (although the latter is less likely because she is still ambulatory ) and the patient refused to leave. Risks of worse infection explained- including retained foreign body -loss of limb [facility] [place] Advised patient need to follow-up with PCP tomorrow-n ote also sent to animal caretaker supervisor through CRC:pat had metal trina ferro her [...] e before according to her med list [id number] Hector Llanes MD Main - [facility] [address] [place] [phone] 09/21/2024 19:25:20 09/23/2024 00:02:50 Acute exacerbation of chronic obstructive pulmonary disease [id number] J44.1 As noted, we were called to see this patient regarding concerns of breathing difficulty , cough, sputum, concerning for COPD exacerbati on. Evaluation in the field was performed by my appliquer colleague, as noted above, I provided real-time [...] Edwards Member ID Guarantor Name 02/09/2024 1 [facility] - DOS ON OR AFTER 2023 - DUAL ELIGIBLE - GROUP HOME OPTIONS AND ONE CARE (MEDICARE REPLACEMENT/ADV ANTAGE - HMO) Melyssa Rishabh [id number] Melyssa Keating 04/23/2024 1 [facility] - DOS ON OR AFTER 2023 - DUAL ELIGIBLE - GROUP HOME OPTIONS AND ONE CARE (MEDICARE REPLACEMENT/ADV ANTAGE - HMO) Melyssa Keating [id number] Melyssabethany Keating 08/23/2024 1 [facility] - DOS ON OR AFTER 2023 - DUAL ELIGIBLE - GROUP HOME OPTIONS AND ONE CARE (MEDICARE REPLACEMENT/ADV ANTAGE - HMO) Melyssa Keating [id number] Melyssa Keating 09/21/2024 1 [facility] - DOS ON OR AFTER 2023 - DUAL ELIGIBLE - GROUP HOME OPTIONS AND ONE CARE (MEDICARE REPLACEMENT/ADV ANTAGE - HMO) Melyssa Keating [id number] Melyssa Keating Notes Date Note Type Note Provider Name and Address Organization Details Recorded Time 02/09/2024 text/html HPI: Member was falling asleep on phone with animal caretaker supervisor. Minimally responsive to prompts. She refused pressing her PERS and refused animal caretaker supervisor calling 911. ..................... ..................... ..................... ..................... ..................... ..................... ............... [facility] Nurse Triage Notes (Bailey Chavez): Comments: [facility] outreach to member was unsuccessful. Unable to reach- N Kathy VERNON ..................... ..................... ..................... ..................... ..................... ..................... ............... Sports Writer Note From Kelvin Thomas: t reports falling [...] ..................... ............... Disposition: Fulfilled Argelia Aceves MD [address] [place] [address],[address], [place], [address], [employer] 02/09/2024 18:18:39 04/23/2024 text/html HPI: HPIarrived at [...] (Carole Estrada)Outreach to member completed with an driver/merchandiser Member stated that she is feeling fine. Member did have a fall , denies hitting her head or pain after fall. Member denies any trouble staying awake. Member denies any sob, DANIEL, eating and drinking . Seemed to be delay in responding on with driver/merchandiser unable to fully assessupdated 1553- unable to [...] contact [facility]: [facility]/10-[facility]/12 for r/o TIA. requested [...] ..................... ..................... ..................... ..................... ..................... ..................... .. Sports Writer Note From Laura Lee: Dispatched for 68 yo female chief complaint of lethargy/weakness. U/a pt is found seated upright on couch in living room. Pt presents CA&Ox4, patent airway, normal breathing and skin signs warm, pink and dry. Language barrier present -> ornament stitcher services utilized. Pt states she has a [...] ..................... ............... Disposition: Fulfilled Gunjan Park MD [address] [place] [address],[address], [place], [address] [employer] 04/23/2024 21:50:39 08/23/2024 text/html [facility] Nurse Triage Notes (Bailey Chavez): Reason For Request: Pt's HAZ TECH reporting left leg swelling/knee swelling, discoloration/redness >mbr [...] ..................... ..................... ..................... ..................... ..................... ..................... ............... Sports Writer Note From Edmar Partida: Dispatched for a scheduled visit for a female pt. with a left leg wound. pt. was found alert and oriented x3 sitting in living room nepali speaking only. ornament stitcher contacted and it was determined the patient [...] +cms in all extremities -stroke scale findings. [facility] contacted medication list and photos of the affected area forwarded. [facility] ordered to clean the wound with sterile [...] also advised to follow up with PCP. [facility] noted to doctor need for x-ray.all times are approx.report completed by jacob partida ..................... ..................... ..................... ..................... ..................... ..................... ............... [facility] Consulted: Daya Almanza ..................... ..................... ..................... ..................... ..................... ..................... ............... Disposition: Fulfilled Daya Almanza MD [address] [place] [address],[address], [place], [address], [employer] 08/23/2024 18:10:00 09/21/2024 text/html CRC Nurse Triage [...] week. Patient agreeable to an [facility] visit. Sports Writer Organization Information for [employer] Legal Name: [facility] Address: [address] [place] [address], [place] [address], Integrated Pest Management Technician: Seb Avila MD IA No.: [id number] Sports Writer POC Test Results from [employer] Rapid COVID antigen (19:21:34) COVID: - Rapid influenza antigen (19:21:35) Flu: - ..................... ..................... ..................... ..................... ..................... ..................... ............... Sports Writer Note From [employer]: Patient alert and oriented all information through medical phone Theoretical Physicist. Patient complains of continued cough and difficulty [...] throughout lungs. Abdomen soft, nontender extremities unremarkable. [facility] orders prednisone 40 mg PO, azithromycin 500 mg PO, DuoNeb x1 and will Rx more to patients local pharmacy. Patient reports she has made a plan with her VNA to coordinate PCP visit. Patient said she? s able to get the medications. Medications administered without complication using five rights. Red flags and patient education discussed via Theoretical Physicist.Patient demonstrates understanding of care and plan. Patient negative for Covid and flu via rapid POC. ..................... ..................... ..................... ..................... ..................... ..................... ............... [facility] Consulted: Kemar Llanes ..................... ..................... ..................... ..................... ..................... ..................... ............... Disposition: Fulfilled Hector Llanes MD [address] [place] [address],[address], [place], [address], [employer] 09/21/2024 21:09:50 OBGyn Episode No OBEpisode recorded.
--- OUTSIDE RECORDS SUMMARY | 2025-02-09 16:30 | XMS_ITS | Encounter Summary ---
Author Organization [employer] Address [address] [place] [address] Care Team Providers Care High School Music Director Name Role Phone Ashwin Arzola MD Primary Care Provider [phone] Reason for Visit * Reason Onset Date Comments VNA 02/08/2025 [facility] Encounter Details Date Type Department Care Team ([facility] Contact Info) Description 02/08/2025 Telephone Adult Medicine [facility] [address] [place] [phone] Ashwin Arzola MD [address] [place] [phone] [facility] ([facility] ) Social History Tobacco Use Types Packs/Day [...] Progress Notes * Antonio Elias LPN - 02/08/2025 3:06 PM EDT Active with [facility] list faxed [phone] confirmation received * Lexi Hart - 02/08/2025 2:40 PM EDT VNA CALL Which VNA office is calling? [facility] Full name of caller: Helen The caller is Nurse Is the caller at the patients home?: no Reason for call: Requesting clarification of script for gabapentin (NEURONTIN) 100 mg capsule. Does caller need an urgent call back? yes Was CONTACT Telephone # obtained above?: yes Fax #: documented in this encounter Plan of Treatment Upcoming Encounters Date Type Department Care Team (Late st Contact Info) Description 02/10/2025 10:00 AM EDT Consult Orthopedic Surgery - [place] [address] [facility] [address] [place] [address] Michele May MD [address] [facility] [address] [place] [address] 03/02/2025 9:30 AM EDT Ancillary Procedure [facility] [address] [place] [phone] 03/03/2025 11:00 AM EDT Office Visit Pulmonolgy - [place] [address] [facility] [address] [place] [phone] Cami Dupont NP [address] [facility] [address] [place] [address] 04/08/2025 9:40 AM EDT Appointment Radiology Department - [address] [phone] 04/12/2025 10:00 AM EDT Office Visit Urogynecology - [address] [phone] Shani Aquino MD [address] [place] [address] [address] [place] [address] 06/02/2025 9:45 AM EDT Office Visit Adult Medicine [facility] [address] [place] [phone] Timmy Avina PA [address] [place], [place] [phone] documented as of this encounter Visit Diagnoses Not on filedocumented in this encounter Care Teams High School Music Director Relationship Specialty Start Date End Date Ashwin Arzola MD [address] [place] [address] PCP - General Internal Medicine 08/01/20 documented as of this encounter
--- OUTSIDE RECORDS SUMMARY | 2025-02-09 16:30 | XMS_ITS | Encounter Summary ---
Author Organization [email or web address] Address [address] [place] [address] Care Team Providers Care Slurry Mixer Name Role Phone Ashwin Arzola MD Primary Care Provider [phone] Encounter Details Date Type Department Care Team (Late st Contact Info) Description 01/19/2025 Billing Patient Not Present Adult Medicine [address] [phone] Ashwin Arzola MD [address] [place] [phone] Social History Tobacco Use Types Packs/Day Years [...] 10:00 AM EDT Consult Orthopedic Surgery - [place] [address] [facility] [address] [place] [phone] Michele May MD [address] [facility] [address] [place] [address] 03/02/2025 9:30 AM EDT Ancillary Procedure [facility] - [place] [address] [place] [address] 03/03/2025 11:00 AM EDT Office Visit Pulmonolgy - [place] [address] [place] [address] Cami Dupont NP [address] [facility] [address] [place] [address] 04/08/2025 9:40 AM EDT Appointment Radiology Department - [address] [phone] 04/12/2025 10:00 AM EDT Office Visit Urogynecology - [address] [phone] Shani Aquino MD [address] [place] [address] [address] [place] [address] 06/02/2025 9:45 AM EDT Office Visit Adult Medicine [place] - [address] [phone] Timmy Avina PA [address] [place] [address] documented as of this encounter Visit Diagnoses Not on filedocumented in this encounter Care Teams Slurry Mixer Relationship Specialty Start Date End Date Ashwin Arzola MD [address] [place] [address] PCP - General Internal Medicine 08/01/20 documented as of this encounter
--- OUTSIDE RECORDS SUMMARY | 2025-02-09 16:30 | XMS_ITS | Encounter Summary ---
Author Organization [employer] Address [address] [place] [address] Care Team Providers Care Employee Relations Director Name Role Phone Ashwin Arzola MD Primary Care Provider [phone] Reason for Visit * Reason Onset Date Comments Shortness of Breath 02/09/2025 Encounter Details Date Type Department Care Team (Late st Contact Info) Description 02/09/2025 Nurse Triage Adult Medicine [address] [phone] Ashwin Arzola MD [address] [place] [phone] Shortness of Breath Social History Tobacco Use Types Packs/Day Years [...] Progress Notes * Nika Ballesteros RN - 02/09/2025 2:40 PM EDT Called and spoke to Helen. She is short of breath. She is receiving a nebulizer now. She is coughing. Her SpO2 is 96% on RA. She had an imaging test today and it could not be completed r/t shortness of breath. Her BP 146/88 is 82,97 degrees and R 20. Her blood glucose is 129. Pt reports shortness of breath at rest. She was instructed to have the pt go to the ER for further evaluation and treatment. She is in agreement with this plan and states she will go to [facility] ER. Reason for Disposition [1] MODERATE difficulty breathing (e.g., speaks in phrases, SOB even at rest, pulse 100-120) AND [2] NEW-onset or WORSE than normal Answer Assessment - Initial Assessment Questions 1. RESPIRATORY STATUS: Describe your breathing? (e.g., wheezing, shortness of breath, unable to speak, severe coughing) Shortness of breath at rest with wheezing bilaterally and severe coughing 2. ONSET: When did this breathing problem begin? 1 week ago 3. PATTERN Does the difficult breathing come and go, or has it been constant since it started? Constant 4. SEVERITY: How bad is your breathing? (e.g., mild, moderate, severe) - MILD: No SOB at rest, mild SOB with walking, speaks normally in sentences, can lie down, no retractions, pulse < 100. - MODERATE: SOB at rest, SOB with minimal exertion and prefers to sit, cannot lie down flat, speaksin phrases, mild retractions, audible wheezing, pulse 100 to 120. - SEVERE: Very SOB at rest, speaks in single words, struggling to breathe, sitting hunched forward,retractions, pulse > 120 She is short of breath at rest 5. RECURRENT SYMPTOM: Have you had difficulty breathing before? If Yes, ask: When was the last time? and What happened that time? Unknown 6. CARDIAC HISTORY: Do you have any history of heart disease? (e.g., heart attack, angina, bypasssurgery, angioplasty) CHF, palpitations 7. LUNG HISTORY: Do you have any history of lung disease? (e.g., pulmonary embolus, asthma, emphysema) Asthma, restrictive lung disease, pulmonary nodules/lesions multiple 8. CAUSE: What do you think is causing the breathing problem? Unknown 9. OTHER SYMPTOMS: Do you have any other symptoms? (e.g., chest pain, cough, dizziness, fever, runny nose) Cough. No chest pain or dizziness 10. O2 SATURATION MONITOR: Do you use an oxygen saturation monitor (pulse oximeter) at home? If Yes, ask: What is your reading (oxygen level) today? What is your usual oxygen saturation reading? (e.g., 95%) 95% RA 11. : Is there any chance you are ? When was your last menstrual period? No Pt is 69 12. TRAVEL: Have you traveled out of the country in the last month? (e.g., travel history, exposures) No Protocols used: Breathing [id number] * Scarlet Contreras - 02/09/2025 2:28 PM EDT Helen from [address] is calling while in the patient's home to states that the patient is having shortness of breath and would like to receive call from a nurse or see Ashwin Arzola MD and/or care team due to her asthma. Please call [phone] to reach the VNA nurse and patient will also be attended with VNA nurse. Please Advise. documented in this encounter Plan of Treatment Upcoming Encounters Date Type Department Care Team (Late st Contact Info) Description 02/10/2025 10:00 AM EDT Consult Orthopedic Surgery - [place] [address] [facility] [address] [facility] [address] [place] [phone] Michele May MD [address] [facility] [address] [place] [address] 03/02/2025 9:30 AM EDT Ancillary Procedure [facility] - [address] [place] [phone] 03/03/2025 11:00 AM EDT Office Visit Pulmonolgy - [place] [address] [facility] [address] [place] [phone] Cami Dupont NP [address] [facility] [address] [facility] [address] [place] [address] 04/08/2025 9:40 AM EDT Appointment Radiology Department - [address] [phone] 04/12/2025 10:00 AM EDT Office Visit Urogynecology - [address] [phone] Shani Aquino MD [address] [place] [address] [address] [place] [address] 06/02/2025 9:45 AM EDT Office Visit Adult Medicine South - [address] [phone] Timmy Avina PA [address] [place] [address] documented as of this encounter Visit Diagnoses Not on filedocumented in this encounter Care Teams Employee Relations Director Relationship Specialty Start Date End Date Ashwin Arzola MD [address] [place] [address] PCP - General Internal Medicine 08/01/20 documented as of this encounter
--- OUTSIDE RECORDS SUMMARY | 2025-02-09 16:30 | XMS_ITS | Encounter Summary ---
Author Organization [employer] Address [address] [place] [address] Care Team Providers Care Laborer Cook House Name Role Phone Ashwin Arzola MD Primary Care Provider [phone] Encounter Details Date Type Department Care Team (Late st Contact Info) Description 01/07/2025 Billing Patient Not Present Adult Medicine [address] [address] Ashwin Arzola MD [address] [place] [phone] Social History Tobacco Use Types Packs/Day Years [...] 10:00 AM EDT Consult Orthopedic Surgery - [place] [address] [facility] [address] [place] [address] Michele May MD [address] [facility] [address] [place] [address] 03/02/2025 9:30 AM EDT Ancillary Procedure [facility] - [address] [place] [address] 03/03/2025 11:00 AM EDT Office Visit Pulmonolgy - [place] [address] [place] [address] Cami Dupont NP [address] [facility] [address] [place] [address] 04/08/2025 9:40 AM EDT Appointment Radiology Department - [address] [phone] 04/12/2025 10:00 AM EDT Office Visit Urogynecology - [address] [phone] Shani Aquino MD [address] [place] [address] [address] [place] [address] 06/02/2025 9:45 AM EDT Office Visit Adult Medicine South - [address] [phone] Timmy Avina PA [address] [place] [address] documented as of this encounter Visit Diagnoses Not on filedocumented in this encounter Care Teams Laborer Cook House Relationship Specialty Start Date End Date Ashwin Arzola MD [address] [place] [address] PCP - General Internal Medicine 08/01/20 documented as of this encounter
--- OUTSIDE RECORDS SUMMARY | 2025-02-09 16:30 | XMS_ITS | Data Portability ---
Author Organization [facility], Main Office Address [address] [facility] [place] [address] Care Team Providers Care Hall Worker Name Role Phone AYAZ GUILLEN - 2ND [...] Details Recorded Time Type 2 diabetes mellitus 67573933 Active 2023 Lynda Sinha MD [address] [facility], [address], [place], [address], [facility] [facility] 18:52:19 Cellulitis of left lower limb 9864602531120 9109 Active 2023 Lynda Sinha MD [address] [facility], [address], [place], [address], [facility] 18:52:25 Essential hypertensio n 26410244 Active 2023 Lynda Sinha MD [address] [facility], [address], [place], [address] [facility] 18:53:29 Dementia with behavioral disturbance 8894440732287 Active 2023 Lynda Sinha MD [address] [facility], [address], [place], [address], [facility] 19:00:22 Hyperlipide sammi 64887952 Active 2023 Lynda Sinha MD [address], [address], [place], [address], [facility] 19:01:01 History of cerebral aneurysm 4533111065737 9109 Active 2023 Lynda Sinha MD [address], [address], [place], [address], [facility] 19:01:48 Chronic obstructive pulmonary disease 73388147 Active 2023 Lynda Sinha MD [address], [address], [place], [address], [facility] 19:03:01 Migraine 82848644 Active 2023 Lynda Sinha MD [address] [place] [address], [address], [place], [address], [facility] 19:04:18 Gastroesoph ageal reflux disease without esophagitis 839973862 Active 2023 Lynda Sinha MD [address] [place] [address], [address], [place], [address], [facility] 19:05:04 Problem Notes None recorded. Medical Equipment None Reported. Allergies Allergen ID Allergen Name Allergen Category Reaction Reaction Severity Criticality Documentation Date Start Date Code Code System Note Provider Name and Address Organization Details Recorded Time 14593 Product containin g penicilli n (product) medicatio n Not available Not available Not available 09/14/2024 76658 8001 SNOMED Lynda Sinha MD [address] [place] [address], [address], [place], [address], [facility] 15:14:47 Vitals Date Recorded Body height Body mass index (BMI) Body weight Heart rate Respiratory rate Body temperature Oxygen saturation Oxygen saturation in Arterial blood by Pulse oximetry Systolic blood pressure Diastolic blood pressure Provider Name and Address Organization Details Last Updated DateTime 165.1 cm 31.1 kg/m2 43490.7 7 g 77 /min 18 /min 98 [degF] 98 % 98 % 142 mm[Hg] 72 mm[Hg] Lynda Sinha MD [address] [place] [address], [address], [place], [address], [facility] 15:39:49 Date Recorded Body height Body mass index (BMI) Body weight Heart rate Respiratory rate Body temperature Oxygen saturation Oxygen saturation in Arterial blood by Pulse oximetry Systolic blood pressure Diastolic blood pressure Provider Name and Address Organization Details Last Updated DateTime 4 165.1 cm 31.1 kg/m2 66128.7 7 g 69 /min 18 /min 98 [degF] 98 % 98 % 142 mm[Hg] 72 mm[Hg] Mallorie Hunter NP [address] [facility], [address], [place], [address], [facility] 11:14:18 Social History Question Answer Notes LastModified by Organizat ion Details LastModified Time Tobacco Smoking Status Former Smoker Smoked 1609-1188 Lynda Sinha MD [address] [facility], [address], [place], [address], [facility] 09/14/2024 14:48:24 Do You Have An Advance Directive? Yes Information not available 09/14/2024 What Is Your Level Of Alcohol Consumption? None Information not available 09/14/2024 What Is Your Code Status? Full Code Information not available 09/14/2024 Where Do You Live? Apartment Alone, No Stairs Information not available 09/14/2024 Legal Guardian? No Informati on not available 09/14/2024 Do You Have A Medical Power Of Structural Fitter? Yes Information not available 09/14/2024 What Was [...] Td(adult) unspecified formulation 9 completed Isha Hollis [facility] 09/08/2024 14:44:30 Td(adult) unspecified formulation 0 completed Isha Hollis [facility] 09/08/2024 14:44:40 Pneumococcal conjugate PCV 13 9 completed Isha King [facility] 09/08/2024 14:44:59 Pneumococcal conjugate PCV 13 3 completed Isha King [facility] 09/08/2024 14:45:08 Pneumococcal conjugate PCV 13 3 completed Isha Hollis [facility] 09/08/2024 14:45:16 pneumococcal polysaccharide PPV23 9 completed Isha Hollis [facility] 09/08/2024 14:46:27 pneumococcal polysaccharide PPV23 3 completed Isha Hollis [facility] 09/08/2024 14:46:39 pneumococcal polysaccharide PPV23 6 completed Isha Hollis [facility] 09/08/2024 14:46:46 influenza, unspecified formulation 2 completed Isha Hollis [facility] 09/08/2024 14:47:02 influenza, unspecified formulation 4 completed Isha Hollis [facility] 09/08/2024 14:47:11 SARS-COV-2 (COVID-19) vaccine, UNSPECIFIED 1 completed Isha Hollis [facility] 09/08/2024 14:47:30 SARS-COV-2 (COVID-19) vaccine, UNSPECIFIED 2 completed Isha Shafer [facility] 09/08/2024 14:47:43 zoster, unspecified formulation 1 completed Ishanico Shafer [facility] 09/08/2024 14:48:01 zoster, unspecified formulation 2 completed Isha [facility] 09/08/2024 14:48:10 Past Encounters Encounter ID Performer Location Encounter Start Date Encounter Closed Date Diagnosis/Indication Diagnosis SNOMED-CT Code Diagnosis ICD10 Code Diagnosis Note [id number] Lynda Sinha MD [address] [address] 09/14/2024 14:37:20 09/15/2024 10:44:58 Cellulitis of left lower limb [id number] 6489886 L03.116 S/P LLE cellulitis without evidence of osteo.Comp leted abx inpt.Now almost all healed.Con tinue local skin care.Monit or. Type 2 jean betes mellitus 92156393 E11.9 Diet controlled at home.No BS checked since here.Will be going home tomorrow and will f/u with PCP. Essential hypertension 64755122 I10 Adequate control over first 3 days here, not checked since then.Sathya nue metoprolol 25 mg qd.Monitor BP and labs as outpt. Chronic ob structive pulmonary disease 72143874 J43.8 In hx.No current sxs.Unclea r why she is on both Incruse Ellipta and Trelegy, which both have umeclidini um in them.But will continue for now as pt is going home tomorrow.A lso continue montelukas t 10 mg qd and loratadine 10 mg qd.Monitor resp status. Dementia w ith behavioral disturbance 3495871739 103 F02.A18 Mild, but with hx of delusions and paranoia.S ome meds d/c'd inpt to avoid polypharma cy.Continu e amitriptyl ine 200 mg qhs, duloxetine 20 mg qd, gabapentin 300 mg TID and clonazepam 1 mg qhs.Monito r mood and behaviors. Provide supportive care.Does not need HCP invoked.F/ U as outpt. Hyperlipidemia 05463930 E78.49 Continue atorvastat in 80 mg qd. and ASA 81 mg qd.Monitor labs as outpt. History of cerebral aneurysm 2535095200 5559429 Z86.79 Stable per last CTA in 03/2024.Mon itor with neuro as outpt. Migraine 34184012 G43.00 9 No current sxs.Was on fioricet as outpt.No recent sxs, so will not start right now.F/U as outpt. Gastroesop hageal reflux disease without esophagitis 200553031 K21.9 Continue pantoprazo le 40 mg qdMonitor GI sxs. [id number] [facility], [facility] [address] 09/15/2024 11:13:41 09/16/2024 11:58:58 Cellulitis of left lower limb 3631100353 5211881 L03.116 S/P LLE cellulitis without evidence of osteo.Comp leted abx inpt.Now almost all healed.Mon itor outpt with pcp appt 09/17 for s/s of infection Type 2 jean betes mellitus 33600951 E11.9 Diet controlled at home.No BS checked since here.f/u with PCP outpt Essential hypertension 47125578 I10 Adequate controlCon tinue metoprolol 25 mg qd.Monitor BP and labs as outpt. Chronic ob structive pulmonary disease 56305983 J43.8 In hx.No current sxs.Unclea r why she is on both Incruse Ellipta and Trelegycon tinuemonte lukast 10 mg qd and loratadine 10 mg qd.Monitor resp status outpt Dementia w ith behavioral disturbance 1944203538 103 F02.A18 Mild, but with hx of delusions and paranoia.S ome meds d/c'd inpt to avoid polypharma cy.Continu eamitripty line 200 mg qhs, duloxetine 20 mg qd, gabapentin 300 mg TID and clonazepam 1 mg qhs.Monito r mood and behaviors. Provide supportive care.Does not need HCP invoked.F/ U as outpt. Hyperlipidemia 80955545 E78.49 Continue atorvastat in 80 mg qd. and ASA 81 mg qd.Monitor labs as outpt. History of cerebral aneurysm 8413349260 2482527 Z86.79 Stable per last CTA in 03/2024.Mon itor with neuro as outpt. Migraine 58988572 G43.00 9 No current sxs.Was on fioricet as outpt.No recent sxs, so will not start right now.F/U as outpt with pcp Gastroesop hageal reflux disease without esophagitis 896936706 K21.9 Continuepa ntoprazole 40 mg qdMonitor GI sxs. outpt with pcp Health Concerns Section Related Observation LastModified by Organization Detai ls LastModified Time None Recorded Concern Status LastModified by Organization Details LastModified Time None Recorded Advance Directives Directive Y: Payers Encounter Date Sequence Insurance Name Policy Number Policy Edwards Covered Member ID Edwards Member ID Guarantor Name 09/14/2024 1 [facility] - DOS ON OR AFTER 2023 - MEDICARE [place]VANTAGE [place]/ADV ANTAGE - PPO) Melyssa Keating [id number] Melyssa Keating 09/15/2024 1 [facility] - DOS ON OR AFTER 2023 - [place]AC[place]/ADV ANTAGE - PPO) Melyssa Keating [id number] Melyssa Keating Notes Date Note Type Note Provider Name and Address Organization Details Recorded Time 09/14/2024 text/html This is a 69 yo woman who is here for rehab after an acute hospitalization for She had initially been seen at [facility] ED on 08/25forleft LE cellulitisand started on doxy after hitting leg when getting into truck ~ 5 days earlier. And then on08/31 for SOB, determined to be due to anxiety. [facility] LLE increasing pain, swelling and redness. She said she had hit it on something 5 days MEDICATION NURSE, but was actually ~08/20.She was tachycardic with [...] delusions and was hospitalized for this at [facility] in 10/2023.She did not [...] go home tomorrow.I see her with a singaporean speaking staff member.She tells me she is feeling strong enough to go home. Has 43 hrs/wk of [employer] time and [facility] comes every day to do her meds. Her PMH includes HTN, AODM, hx of CVA with left sided weakness, COPD, HLD, dementia with delusions, right MCA aneurysm (3 cm x3.5 cm and stable), migraines, depression/anxiety. Lynda Sinha MD [address] [place] [address], [address], [place], [address], [employer] 09/14/2024 19:24:34 09/15/2024 text/html This is a 69 yo woman who is here for rehab after several acute hospitalizations seen today for a discharge summary. Her PMH includes HTN, AODM, hx of CVA with left sided weakness, COPD, HLD, dementia with delusions, right MCA aneurysm (3 cm x3.5 cm and stable), migraines, depression/anxiety. Per summary:[facility] LE cellulitisand started on doxy after hitting leg when getting into truck ~ 5 days earlier.On08/31 for SOB, determined to be due to anxiety [facility] with LLE increasing pain, swelling and redness. She said she had hit it on something 5 days MEDICATION NURSE, but was actually ~08/20.She was tachycardic with [...] delusions and was hospitalized for this at [facility] in 10/2023. She did not express any paranoia during this admission. PT recommended STR and she was transferred here on 09/07.No medications were changed in hospital. While here at [facility]:Melyssa continues to do well Since here she has been working with rehab and doing very well. She is walking 300' with walker and SBA.Today's visit assisted with a singaporean speaking staff member. She tells me she is feeling strong enough to go home and [employer] and [facility]NA will come when she calls today. She has an outpt appt with Dr Mark on 09/17 to followup. On exam, she is sitting up in chair, LLE is not hot and swelling appears to be resolving. She is pleasant and denies any concerns today. Mallorie Hunter NP [address] [facility], [address], [place], [address], [facility] - [employer] 09/15/2024 11:39:51 OBGyn Episode No OBEpisode recorded.
--- OUTSIDE RECORDS SUMMARY | 2025-02-09 16:30 | XMS_ITS | Encounter Summary ---
Author Organization [employer] Address [address] [place] [address] Care Team Providers Care White Hat Hacker Name Role Phone Ashwin Arzola MD Primary Care Provider [phone] Reason for Visit * Reason Onset Date Comments PRIOR AUTHORIZATION 01/25/2025 Encounter Details Date Type Department Care Team (Late st Contact Info) Description 01/25/2025 Telephone Endocrinology - [place] [id number] [place], [place] [phone] Ema Cornell MD [address] [place] [address] PRIOR AUTHORIZATION Social History Tobacco Use Types [...] Unable to complete on CMM Faxed to [facility] for approval of Cade 3+ * Marilyn Whitten - 01/25/2025 10:12 AM EDT Prior Authorization for Medication-do not complete and send this encounter unless you have the fax from the pharmacy. Is this a Cover My Meds request: Yes -- Cash Code [id number] Name of Medication FREESTYLE CADE 3 PLUS SENSOR Dose of Medication CADE 3 PLUS What is the RX # from the faxed refill? N/A How does patient take this med? CHANGE EVERY 14 DAYS What Pharmacy did the fax come from: [facility] Pharmacy fax #: N/A documented in this encounter Plan of Treatment Upcoming Encounters Date Type Department Care Team (Late st Contact Info) Description 02/10/2025 10:00 AM EDT Consult Orthopedic Surgery - [place] [address] [facility] [address] [place] [phone] Michele May MD 175 [facility] [address] [place] [address] 03/02/2025 9:30 AM EDT Ancillary Procedure [facility] - [facility] [address] [facility] [address] [place] [phone] 03/03/2025 11:00 AM EDT Office Visit Pulmonolgy - [place] [address] [facility] [address] [place] [address] Cami Dupont NP [address] [facility] [address] [place] [address] 04/08/2025 9:40 AM EDT Appointment Radiology Department - [address] [phone] 04/12/2025 10:00 AM EDT Office Visit Urogynecology - [address] [phone] Shani Aquino MD [address] [place] [address] [address] [place] [address] 06/02/2025 9:45 AM EDT Office Visit Adult Medicine [facility] [address] [place] [phone] Timmy Avina PA [address] [place] [address] documented as of this encounter Visit Diagnoses Not on filedocumented in this encounter Care Teams White Hat Hacker Relationship Specialty Start Date End Date Ashwin Arzola MD [address] [place] [address] PCP - General Internal Medicine 08/01/20 documented as of this encounter
--- OUTSIDE RECORDS SUMMARY | 2025-02-09 16:30 | XMS_ITS | Encounter Summary ---
Author Organization [employer] Address [address] [place] [address] Care Team Providers Care Senior Sql Database Developer Name Role Phone Ashwin Arzola MD Primary Care Provider [phone] Reason for Visit * Reason Onset Date Comments Faxed Order 01/05/2025 [id number] Order # [id number] Encounter Details Date Type Department Care Team (Late st Contact Info) Description 01/05/2025 Telephone Adult Medicine [address] [address] Ashwin Arzola MD [address] [place] [address] Faxed Order ([id number] Order # [id number]) Social History Tobacco Use Types Packs/Day Years [...] 2:59 PM EDT Received fax order # [id number] from [employer]. Please review, sign, date & fax back to [phone]. Placed in providers bin documented in this encounter Plan of Treatment Upcoming Encounters Date Type Department Care Team (Late st Contact Info) Description 02/10/2025 10:00 AM EDT Consult Orthopedic Surgery - [place] [address] [facility] [address] [place] [phone] Michele May MD [address] [facility] [address] [place] [address] 03/02/2025 9:30 AM EDT Ancillary Procedure [facility] - [address] [place] [phone] 03/03/2025 11:00 AM EDT Office Visit Pulmonolgy - [place] [address] [facility] [address] [place] [phone] Cami Dupont NP [address] [facility] [address] [place] [address] 04/08/2025 9:40 AM EDT Appointment Radiology Department - [address] [phone] 04/12/2025 10:00 AM EDT Office Visit Urogynecology - [address] [phone] Shani Aquino MD [address] [place] [address] [address] [place] [address] 06/02/2025 9:45 AM EDT Office Visit Adult Medicine South - [address] [phone] Timmy Avina PA [address] [place] [address] documented as of this encounter Visit Diagnoses Not on filedocumented in this encounter Care Teams Senior Sql Database Developer Relationship Specialty Start Date End Date Ashwin Arzola MD [address] [place] [address] PCP - General Internal Medicine 08/01/20 documented as of this encounter
--- OUTSIDE RECORDS SUMMARY | 2025-02-09 16:30 | XMS_ITS | Clinical Summary ---
Author Organization [facility] [address] [facility] Address [address] [place] [address] Phone Care Team Providers Care Clinical Documentation Developer Name Role Phone Ashwin Arzola MD Primary Care Provider [phone] Allergies Active Allergy Reactions Criticality Noted Date [...] topically 4 times daily. 3 Active fluticasone-um eclidinium-idalims anterol (Trelegy Ellipta) 100-62.5-25 mcg inhaler Inhale [...] Active blood-glucose meter,continuo us (FreeStyle Cade 3 [place]) miscIndication s:Type 2 diabetes mellitus with other specified complication, with long-term current use of insulin ([facility] V24, [facility] V28) To check sugars 1 each 4 Active metoprolol succinate (TOPROL-XL) 25 mg 24 hr tablet Take 1 tablet (25 mg total) by mouth 1 (one) time each day. 90 tablet 1 5 Active atorvastatin (LIPITOR) 80 mg tablet Take 1 tablet (80 mg total) by mouth 1 (one) time each day. 90 tablet 1 5 Active loratadine (CLARITIN) [...] complication, with long-term current use of insulin ([facility] V24, [facility] V28) Box = Kit = EA, change sensor every 14 days 6 each 5 Active clonazePAM (KlonoPIN) 0.5 mg tablet One tab qhs and 1/2 tab in the am 45 tablet 5 Active amitriptyline (ELAVIL) 150 mg tablet Take 1 tablet (150 mg total) by mouth at bedtime. 30 tablet 5 Active metFORMIN XR (GLUCOPHAGE-XR ) 500 mg 24 hr tabletIndicati ons:Type 2 diabetes mellitus with other specified complication, with long-term current use of insulin ([facility] V24, [facility] V28) Take 1 tablet (500 mg total) by mouth 1 (one) time each day. Take 1 Tablet by mouth daily 90 tablet 1 5 Active amitriptyline (ELAVIL) 150 mg tablet [...] complication, with long-term current use of insulin ([facility] V24, [facility] V28) Box = Kit = EA, change sensor every 14 days 6 each 1 4 025 Discontin ued(Reord er) metFORMIN XR (GLUCOPHAGE-XR ) 500 mg 24 hr tabletIndicati ons:Type 2 diabetes mellitus with other specified complication, with long-term current use of insulin ([facility] V24, [facility] V28) Take 1 tablet (500 mg total) by mouth 1 (one) time each day. Take 1 Tablet by mouth daily 90 tablet 1 5 025 Discontin ued(Reord er) blood-glucose sensor (FreeStyle Cade 3 Plus Sensor) deviceIndicati ons:Type 2 diabetes mellitus with other specified complication, with long-term current use of insulin ([facility] V24, [facility] V28) Box = Kit = EA, change sensor every 14 days 6 each 5 025 Discontin ued(Reord er) Active Problems Problem Noted Date Diagnosed Date Abnormal CT of the abdomen 08/19/2024 Bipolar disorder ([facility] V24, [facility] V28) 04/2024 Overview (08/19/2024): [facility] COVID-19 08/19/2024 CTS (carpal tunnel syndrome) [...] Type 2 diabetes mellitus wit h cataract ([facility] V24, [facility] V28) 05/04/2020 Obesity (BMI 30.0-34.9) 02/10/2018 Stage 1 mild COPD by GOLD cl assification ([facility] V24, [facility] V28) 02/10/2018 Overview (08/19/2024): Last Assessment & Plan: Mild COPD. Continue with Trelegy 1 puff once a day. Migraine 01/16/2017 Palpitations 07/08/2016 CHF (congestive heart failure) ([facility] V24, [facility] V28) 04/22/2016 Asthma 04/05/2016 Overview (08/19/2024): Last Assessment & Plan: Continue with the use of Trelegy. The severity of asthma does not correlate with her symptoms. She is doing excellent with the Trelegy as well we will continue it. Diabetes mellitus with neuro logical manifestation ([facility] V24, [facility] V28) 12/19/2014 Pulmonary nodules/lesions, multiple 10/17/2014 Overview (08/19/2024): Last Assessment & Plan: Patient has history of calcified granulomas which has been stable for many years. Aneurysm of middle cerebral artery 07/07/2014 Overview (08/19/2024): 4mm on the R MCA bifucation. Patient was follow in [place] and no intervention was recommended Urinary incontinence 11/18/2013 Diabetic neuropathy (CMS/HCC V24, CMS/HCC V28) 0 02/03/2013 Overview (08/19/2024): Noted on [...] Encounters Date Type Department Care Team Description 02/09/2025 Nurse Triage Adult Medicine [address] [phone] Ashwin Arzola MD Shortness of Breath 02/08/2025 Telephone Adult Medicine [address] [phone] Ashwin Arzola MD [facility] ([facility] ) 02/03/2025 Telephone Adult Medicine [address] [phone] Ashwin Arzola MD Sore Throat (/) 01/28/2025 Telephone Adult Medicine [address] [phone] Antonio Elias LPN vna 01/27/2025 11:19 AM EDT - 01/27/2025 11:59 PM EDT Hospital Encounter [address] [phone] Pain of left hand Discharge Disposition: Home or Self Care 01/27/2025 11:18 AM EDT - 01/27/2025 11:59 PM EDT Hospital Encounter [address] [phone] Right elbow pain Discharge Disposition: Home or Self Care 01/27/2025 10:00 AM EDT Office Visit [address] [phone] Ashwin Arzola MD Metabolic encephalopathy (Primary Dx); Uncontrolled type 2 diabetes mellitus with hyperglycemia ([facility]/HCC V24, CMS/HCC V28); Pain of left hand; Right elbow pain; Type 2 diabetes mellitus with other specified complication, with long-term current use of insulin (CMS/HCC V24, [facility] V28); Falls; Hypoglycemia; Non-traumatic rhabdomyolysis; Urinary incontinence, unspecified type 01/27/2025 Telephone Adult Medicine [address] [phone] Ashwin Arzola MD Fitting for DME 01/27/2025 Telephone Adult Medicine [address] [phone] Ashwin Arzola MD Fitting for DME 01/25/[address] [phone] Ema Cornell MD PRIOR AUTHORIZATION 01/19/2025 Billing Patient Not Present Adult Medicine [address] [phone] Ashwin Arzola MD 01/18/2025 Billing Patient Not Present Adult Medicine [address] [phone] Ashwin Arzola MD 01/18/2025 Telephone Adult Medicine [address] [phone] Tammy Umaña [place] faxed order ([address] order #[id number]) 01/07/2025 Billing Patient Not Present [address] [phone] Ashwin Arzola MD 01/05/[address] [phone] Ashwin Arzola MD Faxed Order ([id number] Order # [id number]) 12/27/[address] [phone] Ashwin Arzola MD Hospital Follow-up 12/22/[address] [phone] Ashwin Arzola MD 12/21/[address] [phone] Meagan Roe RN Faxed Order ([id number] order# [id number]) 12/20/2024 11:11 AM EDT - 12/20/2024 11:59 PM EDT Hospital Encounter [address] [phone] Hand pain, left Discharge Disposition: Home or Self Care 12/20/2024 10:30 AM EDT Office Visit [address] [phone] Ashwin Arzola MD Chest pain, unspecified type (Primary Dx); Hypokalemia; Elevated troponin; Urinary incontinence, unspecified type; Hand pain, left; Urinary urgency 11/18/[address] [phone] Nika Ballesteros RN 11/17/[address] [phone] Ashwin Arzola MD triage (Please triage see message from [facility] nurse ) from Last 3 Months Immunizations Name Administration [...] Date Site/Laterality Comments CARPAL TUNNEL RELEASE PROCEDURE: [place] NEUROPLASTY &/TRANSPOS MEDIAN NRV CARPAL TUNNE HYSTERECTOMY 2004 PROCEDURE: HISTORICAL HYSTERECTOMY; COMMENT: vaginal, ovaries in place CHOLECYSTECTOMY PROCEDURE: HISTORICAL CHOLECYSTECTOMY COLONOSCOPY 05/19/2017 PROCEDURE: HISTORICAL COLONOSCOPY; COMMENT: diverticulosis, int hemorrhoids; repeat in 5 yrs under propofol UPPER GASTROINTESTINAL ENDOSCOPY 10/29/2016 PROCEDURE: [place] UPPER GI ENDOSCOPY PERFORMED; COMMENT: gastritis; biopsies not taken COLONOSCOPY 03/31/2012 PROCEDURE: HISTORICAL COLONOSCOPY; COMMENT: [facility]; Four adenomas UPPER GASTROINTESTINAL ENDOSCOPY 09/02/2019 PROCEDURE: UPPER GI ENDOSCOPY/EXAM; COMMENT: gastritis, biopsy pending CATARACT EXTRACTION Right PROCEDURE: HISTORICAL CATARACT REMOVAL Medical History Medical History Date Comments Asthma DX:Asthma Seronegative rheumatoid arth ritis (CMS/HCC V24, CMS/[facility] V28) DX:Seronegative rheumatoid arthritis (HCC) Lumbar spondylosis DX:Lumbar spo ndylosis; COMMENT: L3-S1 CTS (carpal tunnel syndrome) DX: CTS (carpal tunnel syndrome); COMMENT: s/p bilat surgery Plantar fasciitis DX:Plantar fas ciitis; COMMENT: Left Medial epicondylitis DX:Medial e picondylitis Pulmonary nodules DX:Pulmonary n odules; COMMENT: calcified Diabetes mellitus ([facility] V 24, [facility] V28) DX:Diabetes mellitus ([facility]) Bipolar disorder ([facility] V2 4, [facility] V28) DX:Bipolar disorder ([facility]) HTN (hypertension) DX:HTN (hyper tension) Bronchitis, not specified as acute or chronic DX:Bronchitis, not specified as acute or chronic Diabetes mellitus with neuro logical manifestation ([facility] V24, [facility] V28) 12/19/2014 DX:Diabetes mellitus with neurological manifestation ([facility]) Hemiparesis affecting left s anthony as late effect of stroke ([facility] V24, [facility] V28) 05/15/2016 DX:Hemiparesis affecting lef t side as late effect of stroke ([facility]) Gastritis 11/22/2016 DX:Gastritis Migraine 01/16/2017 DX:Migraine Migraine without status migr ainosus, not intractable 01/16/2017 DX:Migraine without status migrainosus, not intractable 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 ([facility] V24, [facility] V28) 02/20/2017 DX:DM type 2 causin g neurological disease ([facility]) Helicobacter pylori infection DX :Helicobacter [...] 10:00 AM EDT Consult Orthopedic Surgery - [place] [address] [facility] [address] [place] [phone] Michele May MD 175 [facility] [address] [place] [address] 03/02/2025 9:30 AM EDT Ancillary Procedure [facility] [address] [facility] [address] [place] [id number] 03/03/2025 11:00 AM EDT Office Visit Pulmonolgy - [place] [address] [facility] [address] [place] [address] Cami Dupont NP [address] [facility] [address] [place] [address] 04/08/2025 9:40 AM EDT Appointment Radiology Department - [address] [phone] 04/12/2025 10:00 AM EDT Office Visit Urogynecology - [address] [phone] Shani Aquino MD [address] [place] [address] [address] [place] [address] 06/02/2025 9:45 AM EDT Office Visit [facility] - [address] [phone] Timmy Avina PA [address] [place] [address] Health Maintenance Due Date Last Done Comments [...] Additional history exists Breast Cancer Screening 03/29/2026 03/29/20, 03/29/2024, 03/12/2023, [...] Uncontrolled type 2 diabetes mellitus with hyperglycemia ([facility] V24, [facility] V28) BASIC METABOLIC PANEL Routine 01/27/2025 11:14 AM EDT Uncontrolled type 2 diabetes mellitus with hyperglycemia ([facility] V24, [facility] V28) ECG INTERPRETATION AND REPORT ONLY Routine [...] 2 diabetes mellitus with cataract (CMS/HCC V24, [facility] V28) LIPID PANEL WITH REFLEX TO DIRECT LDL Routine 09/23/2024 2:36 PM EST High cholesterol HM DEPRESSION SCREENING Routine 08/11/2024 SCREENING MAMMOGRAPHY BI [...] Signed Date: 01/27/2025 17:02 ET Workstation ID: [id number] Transcribed By: Self Edit Transcribed Date: 01/27/2025 [...] Signed Date: 01/27/2025 17:02 ET Workstation ID: [id number] Transcribed By: Self Edit Transcribed Date: 01/27/2025 16:58 ET us Ashwin Arzola MD IMG XR [...] Signed Date: 01/27/2025 16:52 ET Workstation ID: [id number] Transcribed By: Self Edit Transcribed Date: 01/27/2025 [...] Signed Date: 01/27/2025 16:52 ET Workstation ID: [id number] Transcribed By: Self Edit Transcribed Date: 01/27/2025 16:50 ET us Ashwin Arzola MD IMG XR PROCEDURES Final Result * Potassium, plasma (01/27/2025 11:14 AM EDT) [facility] Potassium 3.8 3.5 - 5.5 mmol/L LAB CHEMISTRY METHOD 01/27/2025 12:28 PM EDT [facility] Blood Venous blood specimen / Unknown Venipuncture / Unknown 01/27/2025 11:14 AM EDT 01/27/2025 11:14 AM EDT us Ashwin Arzola MD LAB BLOOD ORDERABLES Final Resu lt [facility] [address] [place] [address], * (ABNORMAL) Hemoglobin A1c (01/27/2025 11:14 AM EDT) Pathologist [facility] Hemoglobin A1C 7.7(H) <6.5 % LAB CHEMISTRY METHOD 01/27/2025 2:02 PM EDT [facility] Mean Bld Glu Estim. 174 mg/dL LAB CHEMISTRY METHOD 01/27/2025 2:02 PM EDT [facility] Blood Venous blood specimen / Unknown Venipuncture / Unknown 01/27/2025 11:14 AM EDT 01/27/2025 11:14 AM EDT us Ashwin Arzola MD LAB BLOOD ORDERABLES Final Resu lt [facility] [address] [place] [address], * (ABNORMAL) Basic metabolic panel (01/27/2025 11:14 AM EDT) Only the most recent of2 resultswithin the time period is included. Sodium 137 133 - 145 mmol/L LAB CHEMISTRY METHOD 01/27/2025 2:53 PM EDT [facility] Potassium 4.1 3.5 - 5.5 mmol/L LAB CHEMISTRY METHOD 01/27/2025 2:53 PM [facility] Chloride 102 96 - 110 mmol/L LAB CHEMISTRY METHOD 01/27/2025 2:53 PM [facility] CO2 31 21 - 32 mmol/L LAB CHEMISTRY METHOD 01/27/2025 2:53 PM [facility] Anion Gap 4 3 - 11 LAB CHEMISTRY METHOD 01/27/2025 2:53 PM [facility] Glucose 129(H) 70 - 100 mg/dL LAB CHEMISTRY METHOD 01/27/2025 2:53 PM [facility] BUN 11 5 - 25 mg/dL LAB CHEMISTRY METHOD 01/27/2025 2:53 PM [facility] Creatinine 0.56 0.50 - 1.10 mg/dL LAB CHEMISTRY METHOD 01/27/2025 2:53 PM [facility] eGFR 98 >=60 mL/min/1. 73m2 LAB CHEMISTRY METHOD 01/27/2025 2:53 PM [facility] Comment:Calculation based on the??Chronic Kidney Disease Epidemiology Collaboration (CKD-EPI) equation refit??without adjustment for race. BUN/Creatinine Ratio 19.6 LAB CHEMISTRY METHOD 01/27/2025 2:53 PM [facility] Calcium 9.5 8.5 - 10.5 mg/dL LAB CHEMISTRY METHOD 01/27/2025 2:53 PM EDT [facility] Blood Venous blood specimen / Unknown Venipuncture / Unknown 01/27/2025 11:14 AM EDT 01/27/2025 11:14 AM EDT Ashwin Arzola MD LAB BLOOD ORDERABLES Final Resu lt [facility] [address] [place] [address], [place] [phone] * ECG Interpretation and Report Only (12/23/2024 12:07 PM EDT) [facility] Provider ECG ORDERABLES Final Res ult * External CT Report (12/23/2024 12:04 PM EDT) Only the most recent of3 resultswithin the time period is included. Anatomical Region Laterality Modality Computed Tomogra phy [facility] Provider IMG CT PROCEDURES Final R esult * External Xray Report (12/23/2024 11:55 AM EDT) Only the most recent of6 resultswithin the time period is included. Anatomical Region Laterality Modality Radiographic Petra ging [facility] Provider IMG XR PROCEDURES Final R esult * (ABNORMAL) Lipid panel with reflex to direct LDL (09/23/2024 2:36 PM EST) Cholesterol 155 0 - 200 mg/dL LAB CHEMISTRY METHOD 09/23/2024 5:43 PM EST [facility] Triglycerides 153(H) 0 - 150 mg/dL LAB CHEMISTRY METHOD 09/23/2024 5:43 PM EST [facility] HDL 72 >=40 mg/dL LAB CHEMISTRY METHOD 09/23/2024 5:43 PM EST [facility] LDL Calculated 52 0 - 100 mg/dL LAB CHEMISTRY METHOD 09/23/2024 5:43 PM EST [facility] VLDL Cholesterol Jacoby 30.6 mg/dL LAB CHEMISTRY METHOD 09/23/2024 5:43 PM EST [facility] Non HDL Chol. (LDL+VLDL) 83 <145 mg/dL LAB CHEMISTRY METHOD 09/23/2024 5:43 PM EST [facility] Chol/HDL Ratio 2.2 0.0 - 4.4 LAB CHEMISTRY METHOD 09/23/2024 5:43 PM EST [facility] Blood Venous blood specimen / Unknown Venipuncture / Unknown 09/23/2024 2:36 PM EST 09/23/2024 2:36 PM EST us Ashwin Arzola MD LAB BLOOD ORDERABLES Final Resu lt Performing Organization Address [facility]/ZIP Co de Phone Number [facility] [address] [place] [address], [place] [phone] * (ABNORMAL) Microalbumin creatinine urine ratio (09/23/2024 2:36 PM EST) Creatinine, Urine 327.0 mg/dL LAB CHEMISTRY METHOD 09/23/2024 6:24 PM [facility] Microalb, Ur 131.0(H) 0.0 - 29.0 mg/L LAB CHEMISTRY METHOD 09/23/2024 6:24 PM EST [facility] Microalb/Crea t Ratio 40(H) <30 mg/g creat LAB CHEMISTRY METHOD 09/23/2024 6:24 PM EST [facility] Urine Urine specimen obtained by clean catch procedure / Unknown Non-blood Collection / Unknown 09/23/2024 2:36 PM EST 09/23/2024 2:36 PM EST us Ashwin Arzola MD LAB URINE ORDERABLES Final Resu lt Performing Organization Address [facility]/ZIP Co de Phone Number [facility] [address] [place] [address], [place] [phone] * Depression Screening (08/11/2024) Depression Screening abstracted [...] Final Result * Diabetes Foot Exam (01/08/2024) Pathologist [facility] Diabetes: Annual Foot Exam abstracted us Historical Provider HEALTH MAINTENANCE Final [...] bone mineral density by WHO criteria. [facility] Department of Internal Medicine [...] alternative screening schedule based on dia Pom[place]., [facility] October 31, 2011 for patients with osteopenia [...] bone mineral density by WHO criteria. [facility] Department of Internal Medicine [...] FRAX. Optional alternative screening schedule based on hattie Pom[place], [facility]2011 for patients with osteopenia (based on hip BMD T-score) is as follows: * advanced osteopenia (T scores -2.00 to -2.49), BMD testing every year * moderate osteopenia (T scores -1.50 to -1.99), BMD testing every 5years mild osteopenia or normal BMD (T scores -1.50 and higher), BMD testingevery 15 years Michaela PERALTA IMG DXA PROCEDURES Final Result * Colonoscopy (05/19/2017) [facility] Colonoscopy abstracted, no interpretation Anatomical Region Laterality Modality Other Historical Provider HEALTH MAINTENANCE Final Result * Hepatitis C Screening (05/04/2014) [facility] Hepatitis C Screening abstracted Historical Provider HEALTH MAINTENANCE Final Result from Last 3 Months or Most Recently Relevant to Health Maintenance [place] [address] [place] [address] MEDICARE Member Subscriber Plan / Payer (Ef fective 2024-Present) Name:Melyssa Keating Relation to Subscriber:Self Name:Melyssa Keating Payer ID:[id number] Group ID:[id number] Type:Not on file Address: [place] [address] [address] [address] Care Teams Clinical Documentation Developer Relationship Specialty Start Date End Date Ashwin Arzola MD [address] [place] [id number] PCP - General Internal Medicine 08/01/20
--- OUTSIDE RECORDS SUMMARY | 2025-02-09 16:30 | XMS_ITS ---
Author Name Marty GEORGESBeatriz Address [address] [place] [address] Phone [phone] [facility] Care Team Providers Care Cna Caregiver Name Role Phone Beatriz Ferguson Unavailable [phone] [facility] Unavailable Shaina Olivares Unavailable Unavailable Ashwin Arzola Unavailable [phone] [facility] Unavailab [phone] Unavailable Unavailable Unavailable Reason for Referral Not [...] 2021-12-26 2023-01-02 Vitamin D (Ergocalciferol) 1.25 mg (02757 UT) Cap TAKE 1 CAPSULE BY MOUTH 1 TIME A WEEK 2021-11-16 2023-01-02 OneTouch Delica Plus Tpeomw99I Miscellaneous USE DIRECTED TWICE DAILY 2021-11-30 No [...] DAY AT BEDTIME 2022-05-01 No Data Available Nhledacqfm-MGMP-Utpwgeum 50/325/40 mg Tab TAKE 1 TABLET BY MOUTH EVERY 6 HOURS NEEDED 2022-05-01 No Data Available B-D PEN NDL SHRT 61IU7UZ(02/25) CARMEN USE DIRECTED THREE TIMES DAILY 2021-08-21 No Data Available Diclofenac Sodium 1 % Gel APPLY 4 GRAMS TOPICALLY TO THE AFFECTED AREA TWICE DAILY 2022-05-29 No Data Available Furosemide 40 mg Tab TAKE 1 TABLET BY [facility] DAILY 2022-07-25 2023-01-02 Mapap Arthritis Pain 650 [...] 20 mg Tab TAKE 1 TABLET BY [facility] AT BEDTIME 2023-06-23 No Data Available Ondansetron 4 mg Tab TAKE 1 TABLET BY [facility] EVERY 8 HOURS NEEDED FOR NAUSEA 2023-06-23 No Data Available Loratadine 10 mg Tab TAKE 1 TABLET BY [facility] EVERY DAY 2023-07-03 No Data Available Cetirizine 10 mg Tab TAKE 1 TABLET BY [facility] AT BEDTIME 2023-07-05 No Data Available Nystatin 361551 UNIT/GM Powder APPLY TOPICALLY FOUR TIMES DAILY [...] 50 mg Tab TAKE 1 TABLET BY [facility] EVERY 8 HOURS NEEDED 2023-07-30 No [...] WITH MEALS 2023-11-07 No Data Available UNIFINE [id number] PEN NEEDLES USE DIREC CODY THREE TIMES DAILY 2023-11-07 2023-11-26 Azithromycin 250 mg Tab TAKE 2 TABLETS B Y MOUTH FOR 1 DAY THEN TAKE 1 TABLET BY MOUTH DAILY FOR 4 DAYS 2023-11-11 No Data Available Cefuroxime Axetil 250 mg Tab TAKE 1 TABL ET BY MOUTH TWICE DAILY 2023-11-19 No Data Available Nystatin 562121 UNIT/GM Powder apply to affected area daily, [...] Active 12-13-29 N/A Other problems related to az dical facilities and other health care Active [...] Pain Documented on a Pain Scale (1125F) [facility] Pain Assessment - Pain Documented on a Pain Scale (1125F) [facility] Pain Assessment - Pain Documented on a Pain Scale (1125F) [facility] Pain Assessment - Pain Documented on a Pain Scale (1125F) [facility] [place] Pain Assessment - Pain Documented on a Pain Scale (1125F) [facility] [place] Pain Assessment - Pain Documented on a Pain Scale (1125F) [facility] [place] Pain Assessment - Pain Documented on a Pain Scale (1125F) [facility] Pain Assessment - Pain Documented on a Pain Scale (1125F) [facility] [place]2022 Type 2 diabetes mellitus wit [...] 95 for video, modifier 93 for phone [facility] [place] 10/03/2022 Hypertensive heart disease w ith heart [...] 1111F, BP, A1c or other CPTII codes [facility] 11/28/2022 Encounter for other specifie d aftercare RN, CN or CP time with patient by phone; use with 1111F, BP, A1c or other CPTII codes [facility] [place] 11/28/2022 No Data Available [facility] [place] 12/03/2022 Chronic obstructive pulmonar y disease with (acute) exacerbation No Data Available [facility] [place] 12/[place]2022 Estab. patient 30-39min; chronic exacerbation, 2 stable chronic or 1 acute illness add add modifier 95 for video, (do not use for phone, instead use 05509-07) [facility] [place] 01/09/2023 Type 2 diabetes mellitus wit h [...] (do not use for phone, instead use 47321-89) [facility] [place] 01/09/2023 Estab. patient 30-39min; chronic exacerbation, 2 stable chronic or 1 acute illness add add modifier 95 for video, (do not use for phone, instead use 96641-34) [facility] 01/09/2023 Estab. patient 30-39min; chronic exacerbation, 2 stable chronic or 1 acute illness add add modifier 95 for video, (do not use for phone, instead use 97203-78) [facility] 01/09/2023 Estab. patient 30-39min; chronic exacerbation, 2 stable chronic or 1 acute illness add add modifier 95 for video, (do not use for phone, instead use 76362-91) [facility] 01/09/2023 Estab. patient 30-39min; chronic exacerbation, 2 stable chronic or 1 acute illness add add modifier 95 for video, (do not use for phone, instead use 41984-43) [facility] [place] 01/09/2023 Estab. patient 30-39min; chronic exacerbation, 2 stable chronic or 1 acute illness add add modifier 95 for video, (do not use for phone, instead use 71161-00) [facility] [place] 01/09/2023 Estab. patient 30-39min; chronic exacerbation, 2 stable chronic or 1 acute illness add add modifier 95 for video, (do not use for phone, instead use 66555-86) [facility] [place] 01/09/2023 Estab. patient 30-39min; chronic exacerbation, 2 stable chronic or 1 acute illness add add modifier 95 for video, (do not use for phone, instead use 38462-53) [facility] [place] 01/[place]/2023 RN, CN or CP time with patient by phone; use with 1111F, BP, A1c or other CPTII codes [facility] [place] 01/02/2023 Encounter for other specifie d aftercare RN, CN or CP time with patient by phone; use with 1111F, BP, A1c or other CPTII codes [facility] [place] 01/02/2023 No Data Available [facility] [place] 03/[place]/2023 Other chest pain No Data Available [facility] [place] Chronic obstructive pulmonar y disease, unspecifiedChronic respiratory failure, unsp w hypoxia or hypercapniaSchizophrenia, unspecified No Data Available [facility] [place] 04[place]2023 No Data Available [facility] [place]2023 No Data Available [facility] [place]2023 No Data Available [facility] [place]2023 No Data Available [facility] 04[place]2023 No Data Available [facility] [place] 09/08/2023 Type 2 diabetes mellitus wit h [...] status migrainosusAtherosclerosis of aorta No Data Available [facility] [place] 09[place]2023 No Data Available [facility] [place]2023 No Data Available [facility] [place]2023 No Data Available [facility] [place] 09[place]2023 No Data Available [facility] [place]2023 No Data Available [facility] [place]/24/2023 Type 2 diabetes mellitus wit [...] and other health care No Data Available [facility] [place]/2023 No Data Available [facility] [place]2023 No Data Available [facility] [place]2023 No Data Available [facility] [place]2023 No Data Available [facility] [place] RN, CN or CP time with patient by phone; use with 1111F, BP, A1c or other CPTII codes [facility] [place] 11/20/2023 Encounter for other specifie d aftercare RN, CN or CP time with patient by phone; use with 1111F, BP, A1c or other CPTII codes [facility] [place] 11/20/2023 Vital Signs Date of Collection Vitals [...] tive Time Current Smoking Status Former smoker 2025-01-13 0 Sex Female History of Procedures Procedures Service [...] (do not use for phone, instead use 99330-01) 63692 2022-09-10 No Data Available No Data Availa ble Estab. patient 20-29min; 1 stable chronic or 2 minor; add add modifier 95 for video, modifier 93 for phone 15728 2022-10-03 No Data Available No Data Availa ble RN, CN or CP time with patient by phone; use with 1111F, BP, A1c or other CPTII codes 81906 2022-11-28 No Data Available No Data Avai lable Medications prescribed in hospital were reviewed and reconciled against what they were taking prior to admission during today's visit. (1111F) 1111F 2022-11-28 No Data Available No Data Availa ble No Data Available [id number] 2022-12-03 No Data Available No Data Available Medications prescribed in hospital were reviewed and reconciled against what they were taking prior to admission during today's visit. (1111F) 1111F 2022-12-03 No Data Available No Data Availa ble Estab. patient 30-39min; chronic exacerbation, 2 stable chronic or 1 acute illness add add modifier 95 for video, (do not use for phone, instead use 79803-62) 72703 2023-01-09 No Data Available No Data Availa [...] 1111F, BP, A1c or other CPTII codes 45796 2023-01-02 No Data Available No Data Avai lable Medications prescribed in hospital were reviewed and reconciled against what they were taking prior to admission during today's visit. (1111F) 1111F 2023-01-02 No Data Available No Data Availa ble No Data Available [id number] 2023-03-28 No Data Available No Data Available [...] No Data Availa ble No Data Available [id number] 2023-11-24 No Data Available No Data Available [...] 1111F, BP, A1c or other CPTII codes 34683 2023-11-20 No Data Available No Data Avai [...] Falls in last 6 Months: No 2022-09-10 SCREW MACHINE TENDER only there for 9 hours 2023-11-24 Mental [...] or disease education needs that may arise.On WpthcpGyzyrrtutaY6d- 7.5Encouraged regular exerciseLimit unhealthy foods and eat healthy mealsAvoid sugar-sweetened beverages. White bread, rice, pasta.Follows EndocrinologistDiscussed recommended a1c level- <7%CVA 2007Has a PCAAmbulates with a cane/walkerOn Anoro ElliptaSpirivaProAiron 3L 02 PRNFollows PulmonologistOn 3l 02Follows PulmonologistOn QuetiapineAripiprazoleDuloxetineFollows PsychiatristOn AmbienUses Ztlido patchOn Vitamin DOn FurosemideMetoprololWill monitor edema and weight, follows cardiologyOn AripiprazoleStableFollows PsychiatrHospital for Behavioral MedicineRoetazWcbntfmbqeI9m- 7.1Follows OphthalmologistOn OmeprazoleAvoid spicy, fatty or fried food, caffeine, chocolateAvoid lying down after mealsAvoid eating late at nightWears Pull-ups 2022-10-03 11:44:44 Televideo 20-29min; 1 stable chronic or 2 minor; add modifier 95Continue to see PCP. Follow-up with Kayla as needed for any acute or disease education needs that may arise 05/05.On IylrbuTyuqehvbqpQ3z- 7.1Encouraged regular exerciseLimit unhealthy foods and eat healthy mealsAvoid sugar-sweetened beverages. White bread, rice, pasta.Follows EndocrinologistDiscussed recommended a1c level- <7%CVA 2007Ha a PCAAmbulates with a cane/walkerOn Anoro ElliptaSpirivaProAiron 3L 02 PRNFollows PulmonologistOn 3l 02Follows PulmonologistOn QuetiapineAripiprazoleDuloxetineFollows [facility] AmbienUses Ztlido patchOn Vitamin DOn FurosemideMetoprololWill monitor edema and weight, follows cardiologyOn AripiprazoleStableFollows PsychiatristOn AvtnowJvpazgvnmxY6b- 7.5Follows OphthalmologistOn OmeprazoleAvoid spicy, fatty or fried [...] or disease education needs that may arise.On LumxynAwszwiqvtvC4v- 7.1Encouraged regular exerciseLimit unhealthy foods and eat [...] Psychiatrist01/09/23: Continue current treatment plan as directed.On YuyecwBmltfznkxmU6o- 7.5Follows OphthalmologistOn OmeprazoleAvoid spicy, fatty or fried [...] modifier 95)Continue to see PCP. [facility] or disease education needs that may arise 05/05.On NamlcpBthfcjwyqcR7l- 7.1Encouraged regular exerciseLimit unhealthy foods and eat [...] and fall precautions. Follow up as indicated.On CjllmaOqdwdhenqiW3w- 7.5Follows OphthalmologistOn OmeprazoleAvoid spicy, fatty or fried food, caffeine, chocolateAvoid lying down after mealsAvoid eating late at night01/09/23: Continue current treatment plan as directed.has f/u visit 11/03/2023 Office Visit Gastroenterology Alber Benites PA-CWears Pull-ups+burning with voiding x months will f/u with DROP FORGER HELPER 09/16/2023 Office Visit Obstetrics & Gynecology Clare [...] 8.4 2GFR 80 3CVA 2008Does not have SCREW MACHINE TENDER 11/24/23Ambulates with a cane/walkerat risk for fallsFall prevention TIPS: Wear sensible shoes. Remove home hazards (Get rid of all rugs/mats in your home). Light up your living space (keep a flash light next to your bed for night time). Use assistive devices.ambulates with walkerOn Anoro ElliptaSpirivaProAiron 3L 02 PRNFollows Exterminator TermiteCONTINGENCY PLANMember to call for the following symptoms: [...] agitationPlanned intervention: Contact mental health professional: psychiatry [phone] ([place])On quetiapinewith h/o delusions Follows Psychiatristfollowed by psychiatry [phone] (Neeta) ( member reports she does home [...] pneumoniae---sensitive to ceftriaxone) all uit symptoms resolved.On XumaqsPyfdtetqkqB5g- 7.0 11/19/23Follows OphthalmologistOn OmeprazoleAvoid spicy, fatty or fried food, caffeine, chocolateAvoid lying down after mealsAvoid eating late at night01/09/23: Continue current treatment plan as directed.has f/u visit 11/03/2023 Office Visit Gastroenterology Alber Benites PA-CWears Pull-ups+burning with voiding x months will f/u with DROP FORGER HELPER 09/16/2023 Office Visit Obstetrics & Gynecology Clare [...] ER visit(s) and precipitating factors: [facility]? ? Hospital admission date: 11/16/2023? ? Hospital [...] chills todayRN there 9-10am ---Member unable to strip picker medications as she does not have SCREW MACHINE TENDER. RN brought medications today. member unable to give me RN name or contact info. 2023-11-24 2 hours per day--no SCREW MACHINE TENDER (does not have a SCREW MACHINE TENDER) . email sent to [facility] cc re need for SCREW MACHINE TENDER 2023-11-24 followed by tracie bonilla [phone] ([place]) ( member reports she does home visits) 2023-11-24 unable to complete medication reconciliation; RN not available and member does not administer medications her self. 2023-11-24 medication list u pdated after review of Hosp records/medication list
--- OUTSIDE RECORDS SUMMARY | 2025-02-09 16:30 | XMS_ITS | Encounter Summary ---
Author Organization [employer] Address [address] [place] [address] Care Team Providers Care Secondary Connector Armature Name Role Phone Ashwin Arzola MD Primary Care Provider [phone] Reason for Visit * Reason Onset Date Comments Fitting for DME 01/27/2025 Encounter Details Date Type Department Care Team (Late Contact Info) Description 01/27/2025 Telephone Adult [facility] [address] [place] [phone] Ashwin Arzola MD [address] [place] [phone] Fitting for DME Social History Tobacco Use [...] Department Care Team (Late Contact Info) Description 02/10/2025 10:00 AM EDT Consult Orthopedic Surgery - [place] [address] [place] [phone] Michele May MD [address] [place] [address] 03/02/2025 9:30 AM EDT Ancillary Procedure [facility] [address] [place] [phone] 03/03/2025 11:00 AM EDT Office Visit Pulmonolgy - [place] [address] [place] [phone] Cami Dupont NP [address] [facility] [address] [place] [address] 04/08/2025 9:40 AM EDT Appointment Radiology Department - [address] [phone] 04/12/2025 10:00 AM EDT Office Visit Urogynecology - [address] [phone] Shani Aquino MD [address] [place] [address] [address] [place] [address] 06/02/2025 9:45 AM EDT Office Visit Adult Medicine [facility] - [address] [phone] Timmy Aivna PA [address] [place] [address] documented as of this encounter Visit Diagnoses Not on filedocumented in this encounter Care Teams Secondary Connector Armature Relationship Specialty Start Date End Date Ashwin Arzola MD [address] [place] [address] PCP - General Internal Medicine 08/01/20 documented as of this encounter
[2025-02-09 16:34] LABS: MANUAL DIFF FLAG NO
[2025-02-09 16:35] LABS: Basophils Percent Auto 0.3 % (0-2); Eosinophils Absolute Auto 0.1 X10*3/uL (0.0-0.4); Eosinophils Percent Auto 1.1 % (0-4); Hematocrit 34.3 % (37.0-47.0); Hemoglobin 10.4 g/dl (12.0-16.0); Imm Gran Abs Auto 0.02 X10*3/uL (0.00-0.03); Imm Gran Pct Auto 0.3 % (0.0-0.4); Lymphocytes Absolute Auto 1.7 X10*3/uL (1.2-4.9); Lymphocytes Percent Auto 24.1 % (20-40); Mean Corpuscular HGB Conc 30.3 g/dl (31.0-35.0); Mean Corpuscular Hemoglobin 24.2 pg (27.0-33.0); Mean Platelet Volume 10.2 fL (9.4-12.3); Monocytes Absolute Auto 0.4 X10*3/uL (0.1-1.2); Monocytes Percent Auto 6.2 % (2-11); Neutrophils Absolute Auto 4.8 x10*3/uL (2.0-8.3); Platelet Count 232 X10*3/uL (160-400); Red Blood Count 4.29 X10*6/uL (4.20-5.50); Red Cell Distribution Width 18.1 % (11.0-16.0)
[2025-02-09 16:36] LABS: Venous Blood Gas Refer to POC result
[2025-02-09 16:37] VITALS: BP 128/48; PULSE 91; RESP 16; TEMP 36.6; O2SAT 98
[2025-02-09 16:37] LABS: VBG HCO3 31 mmol/L (22-26); VBG pCO2 43 mmHg; VBG pH 7.46 (7.32-7.43); VBG pO2 41 mmHg
[2025-02-09] MEDS: methylPREDNISolone Sod Succ 125 MG/2 ML VIAL IVPUSH (16:40)
[2025-02-09 16:49] LABS: Anion Gap 13 (12-20); Blood Urea Nitrogen 13 mg/dL (9-16); Calcium 9.8 mg/dL (8.4-10.2); Carbon Dioxide 28 mmol/L (22-29); Chloride 105 mmol/L (96-108); Creatinine Clr Calc Pharmacy 82.2; Estimated Glomerular Filt Rate > 60; Glucose Random 101 mg/dL (60-115); Potassium 3.2 mmol/L (3.3-5.1); Sodium 143 mmol/L (135-145)
[2025-02-09 16:50] LABS: Lactic Acid 1.4 mmol/L (0.5-2.0)
[2025-02-09 16:57] LABS: B Type Natriuretic Peptide 84 pg/mL (<100); Troponin-I High Sensitivity 23.7 ng/L (<3.5-17.0)
[2025-02-09 17:21] LABS: Influenza A PCR NEGATIVE (Negative); Influenza B PCR NEGATIVE (Negative); Resp Syncy Virus RNA Qual PCR NEGATIVE (Negative); SARS COV2 PCR INHOUSE NEGATIVE (Negative)
[2025-02-09 19:21] VITALS: BP 147/60; PULSE 92; RESP 13; TEMP 36.8; O2SAT 99
[2025-02-09 19:37] VITALS: O2SAT 95
--- NOTE | 2025-02-09 19:41 | MHC.EDTECH ---
pt ambulated with O2 check stating between 92%-97% room air with no complaints given. RN made aware
[2025-02-09] MEDS: Azithromycin 500 MG TABLET PO (19:46)
[2025-02-09 19:49] VITALS: BP 147/60; PULSE 92; RESP 20; TEMP 36.8; O2SAT 95
== END 2025-02-09 20:51 | disposition home or self-care (01) ==
PROVIDERS: Emergency Provider Emergency Medicine Emergency Medical Services; PCP Internal Medicine
DX: J45.909 Unspecified asthma, uncomplicated (principal); R06.02 Shortness of breath; R05.9 Cough, unspecified; Z03.818 Encounter for observation for suspected exposure to other biological agents ruled out; I10 Essential (primary) hypertension; E78.2 Mixed hyperlipidemia
CPT/HCPCS: 0241U; 71045; 80048; 82803; 83605; 83880; 84484; 85025; 87040; 93005; 94640; 96374; 99284; 99285; J2919

== ENCOUNTER → 2025-02-09 15:59 | Outpatient (BNV) | payer OTHER, SELFPAY | PROVIDERS: Emergency Provider Emergency Medicine Emergency Medical Services; PCP Internal Medicine; Visit Provider Radiology Diagnostic Radiology | DX: R06.02 Shortness of breath (principal) | CPT/HCPCS: 71045 ==

== ENCOUNTER → 2025-02-09 15:59 | Outpatient (BNV) | payer OTHER, SELFPAY | PROVIDERS: Emergency Provider Emergency Medicine Emergency Medical Services; PCP Internal Medicine; Visit Provider Internal Medicine Cardiovascular Disease | DX: R06.02 Shortness of breath (principal) | CPT/HCPCS: 93010 ==

== ENCOUNTER 2025-02-27 16:25 | Emergency (ER) | payer OTHER, SELFPAY ==
[2025-02-27] VITALS (7 sets, daily range): BP systolic 124–152; BP diastolic 43–56; PULSE 87–111; RESP 15–24; TEMP 36.6–36.9; O2SAT 94–96; BMI 32.9
--- NOTE | ~2025-02-27 | XR_ITS ---
CLINICAL HISTORY: short of breath 1 view chest x-ray Comparison: CR/SR - XR CHEST 1V - 02/09/25 16:05 EDT Findings: The heart is mildly enlarged. Atherosclerotic vascular disease of the aortic arch. No consolidation, significant pleural effusion or pneumothorax. Stable interstitial changes which are likely chronic. No acute fracture. Degenerative changes of the spine. IMPRESSION: 1. No acute findings. 2. Stable nonacute findings as described. This document has been electronically signed by: Ana Mobley MD on 02/27/2025 17:47:34
--- NOTE | 2025-02-27 16:50 | ECG_ITS ---
Test Reason : CHEST PAIN Blood Pressure : */* mmHG Vent. Rate : 96 BPM Atrial Rate : 96 BPM P-R Int : 132 ms QRS Dur : 76 ms QT Int : 358 ms P-R-T Axes : 78 -10 39 degrees QTcB Int : 452 ms Normal sinus rhythm with sinus arrhythmia Normal ECG When compared with ECG of 09-Feb-2025 16:25, No significant change was found Referred By: Generic ED Physician Electronically Signed By: Michael Cano
[2025-02-27 17:22] LABS: MANUAL DIFF FLAG NO
--- NOTE | 2025-02-27 17:32 | PC.NURSE ---
pt awake/alert- yi speaking, iv inserted, labs drawn, nasal swab obtained, cxr obtained, ekg obtained, learning consultant applied- sinus tach on monitor, pt complaining of anxiety, awaiting provider evaluation, call godfrey within reach, plan of care ongoing
[2025-02-27 17:39] LABS: Basophils Percent Auto 0.2 % (0-2); Eosinophils Absolute Auto 0.1 X10*3/uL (0.0-0.4); Eosinophils Percent Auto 0.7 % (0-4); Hematocrit 32.2 % (37.0-47.0); Imm Gran Abs Auto 0.03 X10*3/uL (0.00-0.03); Imm Gran Pct Auto 0.4 % (0.0-0.4); Lymphocytes Absolute Auto 1.7 X10*3/uL (1.2-4.9); Lymphocytes Percent Auto 19.7 % (20-40); Mean Corpuscular HGB Conc 31.1 g/dl (31.0-35.0); Mean Corpuscular Hemoglobin 24.3 pg (27.0-33.0); Mean Corpuscular Volume 78.3 fL (80.0-98.0); Mean Platelet Volume 10.9 fL (9.4-12.3); Monocytes Absolute Auto 0.7 X10*3/uL (0.1-1.2); Monocytes Percent Auto 7.9 % (2-11); Neutrophils Percent Auto 71.1 % (45-73); Platelet Count 233 X10*3/uL (160-400); Red Blood Count 4.11 X10*6/uL (4.20-5.50); Red Cell Distribution Width 18.4 % (11.0-16.0); White Blood Count 8.4 X10*3/uL (4.8-10.8)
[2025-02-27 18:06] LABS: Anion Gap 15 (12-20); Blood Urea Nitrogen 18 mg/dL (9-16); Calcium 9.4 mg/dL (8.4-10.2); Carbon Dioxide 23 mmol/L (22-29); Chloride 104 mmol/L (96-108); Creatinine Clr Calc Pharmacy 82.3; Estimated Glomerular Filt Rate > 60; Glucose Random 217 mg/dL (60-115); Potassium 3.4 mmol/L (3.3-5.1); Sodium 139 mmol/L (135-145)
[2025-02-27 18:15] LABS: Influenza A PCR NEGATIVE (Negative); Influenza B PCR NEGATIVE (Negative); Resp Syncy Virus RNA Qual PCR NEGATIVE (Negative); SARS COV2 PCR INHOUSE NEGATIVE (Negative)
[2025-02-27 18:23] LABS: Troponin-I High Sensitivity 134.2 ng/L (<3.5-17.0)
--- NOTE | 2025-02-27 18:33 | ED.CHESTPAIN ---
HPI - Chest Pain General Chief Complaint: Chest Pain Stated Complaint: sob hx asthma sob hx 1 week, took duo neb Time Seen by Provider: 02/27/25 18:32 Source: patient Mode of arrival: EMS Limitations: language barrier ([place] speaking only, [facility] [place] manager finance used) History of Present Illness ED Provider: Dr. Chris Frias HPI narrative: 69-year-old female with a history diabetes mellitus, hypertension, asthma, depression, anxiety, dysphagia with esophageal food bolus obstruction in the past who presents emergency department for evaluation of shortness of breath secondary to her asthma for 1 week and chest pain that started at 14:00 today. Patient states that she has been having trouble with her asthma over the past week. She states she has to nebulizers 1 that she uses every 8 hours and 1 that she uses daily and despite taking these treatments she has felt short of breath. She states that today at 14:00 hours she developed chest pain in the center and left upper chest. She describes the pain is a tightness which is worse with breathing. The pain has been intermittent. She states that she did have pain at the time of presentation to the emergency department and the pain is still present in its 11/22. She denied fever, chills. She states she has a nonproductive cough. She denied nausea, vomiting, diarrhea. She denied myalgias arthralgias. Related Data Home Medications ?Medication ?Instructions ?Recorded ?Confirmed blood sugar diagnostic (OneTouch #10 ea 09/27/22 10/20/23 Ultra Test strips) lancets 33 gauge (OneTouch Delica #100 ea 09/27/22 10/20/23 Plus Lancet) [id number] 1 tab PO Q6H PRN Headache 10/17/23 02/03/25 50 mg-325 mg-40 mg tablet docusate sodium 100 mg capsule 100 mg PO BID 11/16/23 02/03/25 sennosides 8.6 mg tablet (senna) 8.6 mg PO DAILY 11/16/23 02/03/25 amitriptyline 150 mg tablet 150 mg PO BEDTIME 04/11/24 02/03/25 amitriptyline 50 mg tablet 50 mg PO BEDTIME 04/11/24 10/26/24 gabapentin 300 mg capsule 300 mg PO TID 04/11/24 02/03/25 fluticasone fur. 100 mcg-umeclid 1 ea inhalation DAILY 10/26/24 02/03/25 62.5 mcg-vilant 25 mcg inhalat.powder (Trelegy Ellipta) tramadol 50 mg tablet 50 mg PO Q8H PRN Pain 10/26/24 02/03/25 clonazepam 0.5 mg tablet 0.5 mg PO TID PRN Pain 12/23/24 02/03/25 duloxetine 20 mg capsule,delayed 60 mg PO DAILY 12/23/24 02/03/25 release loratadine 10 mg tablet 10 mg PO DAILY 12/23/24 02/03/25 metformin 500 mg tablet,extended 500 mg PO DAILY 12/23/24 02/03/25 release 24 hr metoclopramide HCl 10 mg tablet 10 mg PO QID 12/23/24 02/03/25 metoprolol tartrate 25 mg tablet 25 mg PO DAILY 12/23/24 02/03/25 montelukast 10 mg tablet 10 mg PO BEDTIME 12/23/24 02/03/25 potassium chloride 20 mEq 20 meq PO DAILY 12/23/24 12/23/24 tablet,extended release(part/cryst) budesonide-formoterol HFA 160 inhalation 02/03/25 mcg-4.5 mcg/actuation aerosol inhaler ciclopirox 0.77 % topical gel 1 appl topical BID 02/03/25 02/03/25 famotidine 20 mg tablet 20 mg PO DAILY 02/03/25 02/03/25 furosemide 40 mg tablet (Lasix) 40 mg PO 02/03/25 magnesium oxide 400 mg PO DAILY 02/03/25 02/03/25 pantoprazole 40 mg tablet,delayed 40 mg PO DAILY 02/03/25 02/03/25 release Previous Rx's ?Medication ?Instructions ?Recorded atorvastatin 80 mg tablet 80 mg PO BEDTIME #0 tabs 10/29/23 insulin glargine 100 unit/mL 10 unit (0.1 mL) subcut BEDTIME 12/25/24 subcutaneous solution (Lantus #10 mL U-100 Insulin) fluconazole 100 mg tablet 100 mg PO DAILY #21 tabs 02/03/25 azithromycin 250 mg tablet 250 mg PO DAILY 4 days #4 tabs 02/09/25 prednisone 20 mg tablet 40 mg (2 x 20 mg) PO DAILY #10 tabs 02/09/25 prednisone 20 mg tablet 40 mg (2 x 20 mg) PO DAILY 5 days 02/27/25 #10 tabs Allergies Allergy/AdvReac Type Severity Reaction Status Date / Time Penicillins Allergy Mild Swelling Verified 02/27/25 16:49 Review of Systems Review of Systems: Yes all other systems are reviewed and are negative [facility] Past Medical History [facility] Narrative: Social history: She lives alone. She denies tobacco, alcohol and drug use. Medical History Seizure disorder JOSÉ (obstructive sleep apnea) Delusions Major neurocognitive disorder Chest pain Dyspnea on exertion COVID-19 GERD (gastroesophageal reflux disease) DJD (degenerative joint disease) COPD (chronic obstructive pulmonary disease) Bipolar disorder CTS (carpal tunnel syndrome) Hx of rheumatoid arthritis Diabetic neuropathy Urinary incontinence Aneurysm of middle cerebral artery Pulmonary nodules CHF (congestive heart failure) Palpitations Migraine History of COVID-19 Mild aortic stenosis Asthma Insulin dependent type 2 diabetes mellitus Mixed hyperlipidemia Mood disorder Essential hypertension Surgical History No pertinent past surgical history Hx of cataract surgery H/O: hysterectomy Hx of cholecystectomy History of carpal tunnel release Family History Family History Mother Myocardial infarction Father Myocardial infarction Sister Breast cancer Brother Spleen cancer Social History Social History Household Members: None Housing: Apartment Do you presently have visiting nurse or other home services: 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) Unable to assess alcohol history related to: Unable to respond Alcohol intake: never Comment: report given by Cleo menendez Patient Tobacco Use Status: Never used Tobacco Tobacco use type: Cigarette Cigarette Packs Per Day: 0.2 Cigarettes Per Day: 4.0 Years Smoked: [id number] Smoked in Last 30 Days: No e-Cigarette/Vaping Use: Never Used Second Hand Smoke Exposure: No Use of substances other than those prescribed or required for medical reasons: No Advance Directives: Yes Advance Directives on File: Yes Advance Directives Date on File: 11/20/23 Do you have a plan to hurt others: No Plan service: No Current occupational status: retired Sexual orientation: Straight/Heterosexual Physical Exam Vital Signs: Vital Signs: Last Vital Signs Temp 97.8 F 02/27/25 18:24 Pulse 88 02/27/25 19:30 Resp 22 H 02/27/25 19:30 BP 152/56 H 02/27/25 19:30 Pulse Ox 96 02/27/25 19:30 O2 Del Method Room Air 02/27/25 19:30 BMI result Body Mass Index 32.9 Vital signs were normal. Exam: General: Awake, alert, appears anxious Head: Normocephalic, atraumatic EENT: PERRL, Lids normal, sclera normal, conjunctiva normal, nose normal , ears normal, throat without erythema or exudates Neck: Supple, no adenopathy Lung: breath sounds symmetric, wheezing at the end of expiration, no rales, no rhonchi Chest: symmetric movement, moderate to severe sternal and left costochondral joint tenderness Heart: regular rate and rhythm, normal S1, S2 no murmurs or rubs Abdomen: soft, non-tender, nondistended, normal bowel sounds Back: no vertebral tenderness, no CVAT Extremities: no deformities, moves all extremities symmetrically Neuro: Awake, alert, oriented, normal speech, cranial nerves intact, moves all extremities symmetrically Psych: Pleasant, cooperative, anxious Medications Administered Discontinued Medications Generic Name Dose Route Start Last Admin Trade Name Jovaniq PRN Reason Stop Dose Admin Clonazepam 0.5 mg 02/27/25 18:53 02/27/25 19:30 Clonazepam 0.5 Mg Tablet PO 02/27/25 18:54 0.5 mg ONCE ONE Administration Albuterol Sulfate 2.5 mg/ 0 mg 02/27/25 19:25 02/27/25 19:29 Albuterol/Ipratropium 3 ml INHALE 02/27/25 19:26 1 dose ONCE ONE Administration Ketorolac Tromethamine 15 mg 02/27/25 19:10 02/27/25 19:30 Ketorolac Tromethamine 15 Mg/Ml Vial IVPUSH 02/27/25 19:11 15 mg ONCE STA Administration Methylprednisolone Sodium Succinate 40 mg 02/27/25 19:07 02/27/25 19:31 Methylprednisolone Sod Succ 40 Mg/Ml Vial IVPUSH 02/27/25 19:08 40 mg ONCE ONE Administration Medical Decision Making Medical Decision Making MDM Narrative: 69-year-old female with a history diabetes mellitus, hypertension, asthma, depression, anxiety, dysphagia with esophageal food bolus obstruction in the past who presents emergency department for evaluation of shortness of breath secondary to her asthma for 1 week and chest pain that started at 14:00 today. Patient states that she has been having trouble with her asthma over the past week. She states she has to nebulizers 1 that she uses every 8 hours and 1 that she uses daily and despite taking these treatments she has felt short of breath. She states that today at 14:00 hours she developed chest pain in the center and left upper chest. She describes the pain is a tightness which is worse with breathing. The pain has been intermittent. She states that she did have pain at the time of presentation to the emergency department and the pain is still present in its 11/22. She denied fever, chills. She states she has a nonproductive cough. She denied nausea, vomiting, diarrhea. She denied myalgias arthralgias. Vital signs were unremarkable with a normal O2 saturation on room air. Lung exam did reveal wheezing at the end of expiration with no rales or rhonchi. Patient did have significant midsternal and left costochondral joint tenderness. Patient did appear to be anxious. 19:11 Differential diagnosis: ?Includes but is not limited to bronchitis, pneumonia, pleurisy, myocardial infarction, myocardial ischemia, chest wall pain, anxiety, anemia, electrolyte abnormalities Course: 19:11 My independent interpretation patient's laboratory evaluation as follows: WBC was normal 8400. Patient has a chronic microcytic anemia with an H&H of 10 and 32. BUN elevated 18. Glucose elevated 217. Patient's 1st high sensitive troponin I at 17:16 hours was elevated 134.2. A repeat is due at 19:15 hours. COVID-19, influenza and RSV tests were negative. EKG was unchanged from previous with no evidence for myocardial infarction or ischemia. Chest x-ray revealed no evidence of pneumonia or congestive heart failure. At this time I suspect that the patient has an asthma exacerbation, anxiety and possible NSTEMI versus type 2 injury given the elevated troponin. Patient was treated with clonazepam 0.5 mg orally, Toradol 15 mg IV, Solu-Medrol 40 mg IV and bronchodilator protocol was ordered. 22:45 The patient's repeat high sensitive troponin I was 136.6 which was unchanged from the 1st value suggesting that the patient did not have an NSTEMI at this time. Patient states that her pain has resolved and I suspect that she has costochondritis and an asthma exacerbation. Patient was given a prescription for prednisone 40 mg once a day for 5 days. She was advised to take your other medications as prescribed. She was given printed and verbal instructions and discharged home. Admission/Observation Consideration of admission/observation: Escalation of care including admission/observation considered (Yes) Lab Data MDM Lab Attestation statement: I reviewed the patient's lab results. 02/27/25 17:16 02/27/25 17:16 Labs: Lab Results 02/27/25 02/27/25 Range/Units 17:16 19:19 WBC 8.4 (4.8-10.8) X10*3/uL RBC 4.11 L (4.20-5.50) X10*6/uL Hgb 10.0 L (12.0-16.0) g/dl Hct 32.2 L (37.0-47.0) % MCV 78.3 L (80.0-98.0) fL MCH 24.3 L (27.0-33.0) pg MCHC 31.1 (31.0-35.0) g/dl RDW 18.4 H (11.0-16.0) % Plt Count 233 (160-400) X10*3/uL MPV 10.9 (9.4-12.3) fL Immature Gran % (Auto) 0.4 (0.0-0.4) % Neut % (Auto) 71.1 (45-73) % Lymph % (Auto) 19.7 L (20-40) % Bulloch % (Auto) 7.9 (2-11) % Eos % (Auto) 0.7 (0-4) % Baso % (Auto) 0.2 (0-2) % Lymph # (Auto) 1.7 (1.2-4.9) X10*3/uL [place] # (Auto) 0.7 (0.1-1.2) X10*3/uL Eos # (Auto) 0.1 (0.0-0.4) X10*3/uL Baso # (Auto) 0.0 (0.0-0.2) X10*3/uL Abs Immat Gran (auto) 0.03 (0.00-0.03) X10*3/uL Absolute Neuts (auto) 6.0 (2.0-8.3) x10*3/uL Absolute Nucleated RBC 0.000 (0.0-0.012) X10*3/uL Nucleated RBC % (auto) 0.0 (0.0-0.2) /100WBC Sodium 139 (135-145) mmol/L Potassium 3.4 (3.3-5.1) mmol/L Chloride 104 (96-108) mmol/L Carbon Dioxide 23 (22-29) mmol/L Anion Gap 15 (12-20) BUN 18 H (9-16) mg/dL Creatinine 0.63 (0.5-1.4) mg/dL Estim Creat Clear Calc 82.3 Estimated GFR > 60 Random Glucose 217 H (60-115) mg/dL Calcium 9.4 (8.4-10.2) mg/dL Troponin I High Sens 134.2 H* D 136.6 H* (<3.5-17.0) ng/L B-Natriuretic Peptide 59 (<100) pg/mL Influenza Type A (PCR) NEGATIVE (Negative) Influenza Type B (PCR) NEGATIVE (Negative) RSV RNA Qual (PCR) NEGATIVE (Negative) SARS-CoV-2 RNA (RT-PCR) NEGATIVE (Negative) Independent Interpretation I performed an independent interpretation of an: EKG and Plain X-Ray Interpretation: My interpretation patient's 12 EKG done on 02/27/2025 at 17:07 hours is as follows: Sinus tachycardia with a rate of 96, normal NM interval, QRS duration QTC interval, there is significant artifact in the baseline which makes the EKG difficult to interpret but I do not see any significant ST segment elevation or depression or significant T-wave abnormalities, no PACs, no PVCs. Compared to an EKG dated 02/09/2025 at 16:25 hours there is no significant change, previous EKG also had artifact in the baseline which suggests that it may be secondary to tremors Chronic Conditions Patient?s care impacted by: Diabetes and Other (Asthma) Discharge Plan Discharge Clinical Impression: Acute asthma exacerbation, Acute costochondritis, Elevated troponin I level Patient Disposition: Home, Self-Care Additional Instructions: Your chest x-ray was unremarkable, there were no signs of pneumonia which is reassuring. Your EKG was unchanged from your previous EKGs. Your presentation and exam is consistent with inflammation of the joints of your chest (costochondritis) and a flare-up of your asthma. Take prednisone 20 mg pills, 3 pills once a day for 5 days. While you ?are taking prednisone, do not take any NSAIDs (Motrin, Advil, ibuprofen, Aleve, naproxen). Take Tylenol (acetaminophen) 500 mg pills, 2 pills every 6 hours as needed for pain or fever. Follow-up with your doctor in 2 days. Please return to the emergency department if your symptoms get worse or if you develop any symptoms that are concerning to you. Prescriptions: New prednisone 20 mg tablet 40 mg PO DAILY 5 Days Qty: 10 0RF No Action [id number] 50-325-40 mg tablet 1 tab PO Q6H PRN (Reason: Headache) atorvastatin 80 mg Tablet 80 mg PO BEDTIME Qty: 0 0RF sennosides [senna] 8.6 mg tablet 8.6 mg PO DAILY docusate sodium 100 mg capsule 100 mg PO BID tramadol 50 mg tablet 50 mg PO Q8H PRN (Reason: Pain) Trelegy Ellipta 100-62.5-25 mcg blister with device 1 ea inhalation DAILY amitriptyline 150 mg tablet 150 mg PO BEDTIME Rx Instructions: with 50 mg amitriptyline 50 mg tablet 50 mg PO BEDTIME Rx Instructions: with 150 mg gabapentin 300 mg capsule 300 mg PO TID metformin 500 mg tablet extended release 24 hr 500 mg PO DAILY clonazepam 0.5 mg tablet 0.5 mg PO TID PRN (Reason: Pain) potassium chloride 20 mEq tablet,ER particles/crystals 20 meq PO DAILY Rx Instructions: not on list/ patient unsure if taking or not montelukast 10 mg tablet 10 mg PO BEDTIME loratadine 10 mg tablet 10 mg PO DAILY metoclopramide HCl 10 mg tablet 10 mg PO QID metoprolol tartrate 25 mg tablet 25 mg PO DAILY duloxetine 20 mg capsule,delayed release(DR/EC) 60 mg PO DAILY insulin glargine [Lantus U-100 Insulin] 100 unit/mL solution 10 unit subcut BEDTIME Qty: 10 0RF budesonide-formoterol 160-4.5 mcg/actuation Hfa Aerosol Inhaler INHALATION ciclopirox 0.77 % Gel 1 appl TOPICAL BID famotidine 20 mg Tablet 20 mg PO DAILY furosemide [Lasix] 40 mg Tablet 40 mg PO pantoprazole 40 mg Tablet,Delayed Release (Dr/Ec) 40 mg PO DAILY magnesium oxide 400 mg magnesium Capsule 400 mg PO DAILY fluconazole 100 mg tablet 100 mg PO DAILY Qty: 21 0RF azithromycin 250 mg tablet 250 mg PO DAILY 4 Days Qty: 4 0RF Rx Instructions: start on day 2 of therapy prednisone 20 mg tablet 40 mg PO DAILY Qty: 10 0RF (DME) lancets [OneTouch Delica Plus Lancet] 33 gauge misc See Rx Instructions .ROUTE BID Qty: 100 Rx Instructions: As directed (DME) OneTouch Ultra Test Strip See Rx Instructions .ROUTE BID Qty: 10 Rx Instructions: As directed Print Language: [place]
--- NOTE | 2025-02-27 18:34 | PC.NURSE ---
this nurse noticed patients troponin was 134 and patient was awaiting provider to pick them up, Dr. Frias was notified, prosthetic aide was called for provider.
[2025-02-27] MEDS: Albuterol Sulfate 2.5 MG, Albuterol/Iprat 2.5/0.5MG 3 ML 3 ML INHALE (19:29)
[2025-02-27] MEDS: clonazePAM 0.5 MG TABLET PO ×2 (19:30→23:22)
[2025-02-27] MEDS: Ketorolac Tromethamine 15 MG/ML VIAL IVPUSH (19:30)
[2025-02-27] MEDS: methylPREDNISolone Sod Succ 40 MG/ML VIAL IVPUSH (19:31)
[2025-02-27 19:38] LABS: B Type Natriuretic Peptide 59 pg/mL (<100)
[2025-02-27 19:49] LABS: Troponin-I High Sensitivity 136.6 ng/L (<3.5-17.0)
== END 2025-02-27 23:41 | disposition home or self-care (01) ==
PROVIDERS: Emergency Provider Emergency Medicine Emergency Medical Services; PCP Internal Medicine
DX: J45.901 Unspecified asthma with (acute) exacerbation (principal); M94.0 Chondrocostal junction syndrome [Tietze]; R79.89 Other specified abnormal findings of blood chemistry; R05.9 Cough, unspecified; R06.02 Shortness of breath; R06.00 Dyspnea, unspecified; Z03.818 Encounter for observation for suspected exposure to other biological agents ruled out; E11.9 Type 2 diabetes mellitus without complications; I10 Essential (primary) hypertension; E78.2 Mixed hyperlipidemia; R13.10 Dysphagia, unspecified; Z79.84 Long term (current) use of oral hypoglycemic drugs; Z79.899 Other long term (current) drug therapy; Z79.02 Long term (current) use of antithrombotics/antiplatelets; Z79.4 Long term (current) use of insulin
CPT/HCPCS: 0241U; 36415; 71045; 80048; 83880; 84484; 85025; 93005; 94640; 96374; 96375; 99284; 99285; J1885; J2919

== ENCOUNTER → 2025-02-27 16:50 | Outpatient (BNV) | payer OTHER, SELFPAY | PROVIDERS: Emergency Provider Emergency Medicine Emergency Medical Services; PCP Internal Medicine; Visit Provider Internal Medicine Cardiovascular Disease | DX: R07.9 Chest pain, unspecified (principal) | CPT/HCPCS: 93010 ==

== ENCOUNTER → 2025-02-27 16:50 | Outpatient (BNV) | payer OTHER, SELFPAY | PROVIDERS: PCP Internal Medicine; Visit Provider Specialist | DX: R06.02 Shortness of breath (principal) | CPT/HCPCS: 71045 ==

== ENCOUNTER 2025-03-22 10:06 | Outpatient (AMB) | payer OTHER, SELFPAY ==
--- NOTE | 2025-03-22 10:09 | A.OFFVIS_ITS ---
Vital Signs 03/22/25 10:34 Height 5 ft 2 in Weight 172 lb BMI 31.5 BP 122/57 L Blood Pressure Location Lt brachial Position Sitting Pulse 78 Pulse Oximetry (%) 98 Oxygen Delivery Method Room Air Intake Visit Reasons: EGD results/object stuck in throat Intake Note: Patient hospital follow up EGD result/object stuck in throat. Patient cc: constipation, GERD, abdominal pain and swallowing discomfort. Senior Database Engineer Required: Yes Senior Database Engineer Name: Alexander [email or web address] Accompanied by: Self / Same As Patient Allergies Penicillins Allergy (Mild, Verified 06/23/25 10:51) Swelling Medication List - Last Reconciled 03/22/25 by Dorothy Jama MD amitriptyline 150 mg PO BEDTIME amitriptyline 50 mg PO BEDTIME atorvastatin 80 mg PO BEDTIME azithromycin 250 mg PO DAILY 4 days blood sugar diagnostic (NexSteppe Ultra Test strips) As directed budesonide-formoterol 160-4.5 mcg/actuation inhalation hvnqendwrh-gvmoswmmvxzds-toci 50-325-40 mg 1 tab PO Q6H PRN ciclopirox 0.77% 1 appl topical BID clonazepam 0.5 mg PO TID PRN docusate sodium 100 mg PO BID duloxetine 60 mg PO DAILY famotidine 20 mg PO DAILY fluconazole 100 mg PO DAILY xdczvmvcwqj-rsnjdctnt-nbclffss 100-62.5-25 mcg (Trelegy Ellipta) 1 ea inhalation DAILY furosemide (Lasix) 40 mg PO gabapentin 300 mg PO TID insulin glargine (Lantus U-100 Insulin) 10 units (0.1 mL) subcut BEDTIME lancets (Mumartuch Delica Plus Lancet) As directed loratadine 10 mg PO DAILY magnesium oxide 400 mg PO DAILY metformin ER 500 mg PO DAILY metoclopramide HCl 10 mg PO QID metoprolol tartrate 25 mg PO DAILY montelukast 10 mg PO BEDTIME pantoprazole 40 mg PO DAILY potassium chloride ER 20 mEq PO DAILY prednisone 40 mg (2 x 20 mg) PO DAILY prednisone 40 mg (2 x 20 mg) PO DAILY 5 days sennosides (senna) 8.6 mg PO DAILY tramadol 50 mg PO Q8H PRN HPI HPI EGD results/object stuck in throat: Details: GI clinic visit for this 69 year old Solomon Islander-speaking female for follow-up of dysphagia after recent ED visit TODAY'S VISIT: Telephone Graduate AdvisorAlexander # [phone] Patient cc: constipation, GERD, abdominal pain and swallowing discomfort. Pt is accompanied by her COMPONENTS ENGINEER Pt complains of odynophagia and heartburn - day and night Raspy throat and feeling of warmth in her throat Patient denies symptoms of nausea, vomiting. Admits to wt loss from 178 to 162 lbs. Pt complains of constipation and denies diarrhea, black stools or rectal bleeding. Pt reports having a BM every 4-5 days Denies taking any medication for constipation at present. Pt has sleep apnea and CPAP machine to be delivered today Patient has CHF, COPD and sleep apnea Denies problems with anesthesia in the past. Denies being on chronic anticoagulation. Patient denies known family history of colon polyps, colon cancer or other GI malignancies. PAST EGD/COLONOSCOPY LABS IN [facility] : Reviewed IMAGING STUDIES: Reviewed ENDOSCOPIC STUDIES: 02/03/25 EGD SHOWED: Esophagus: GE junction at 34 cm, diaphragm hiatus at 37 cm, consistent with 3 cm hiatal hernia. Food bolus was noted at the UES and was pushed down into the stomach. A slight tear was noted at the UES. white adherent plaques noted consistent with rhonda. Stomach: patchy erythema . Grade 2 flap valve on retroflexed examination of the cardia. Duodenum: Normal bulb and descending duodenum, Impression/Findings: esophageal stricture esophageal candidiasis PLAN: confirm compliance with PPI 3 weeks course of fluconazole GERD precautions f/u with o/p GI clinic PAST GI HISTORY BY REVIEW OF MEDICAL RECORDS: 02/04/24 patient was seen at [facility]: Reason for consult: Food impaction 69 YF w/PMHx JOSÉ, seizures, diabetes, RA, CHF, migraines, GERD, COPD came to [facility] today with c/o SOB & inability to swallow since 1899 last night. Pt complains of dysphagia after swallowing a root vegetable last night and has been unable to drink water or take meds Pt denies past hx of dysphagia or food impaction. States she had an EGD in the past ([facility] Plan 69 YF w/PMHx JOSÉ, seizures, diabetes, RA, CHF, migraines, GERD, COPD came to [facility] today with c/o SOB & inability to swallow since 1899 last night. Pt complains of dysphagia after swallowing a root vegetable last night and has been unable to drink water or take meds Esophageal obstruction due to food impaction likely due to esophageal motility disorder, stricture or ring RECOMMENDATIONS: 1. Proceed with urgent upper endoscopy today. Procedure and potential complications including bleeding, perforation, reaction to anesthetic and aspiration were reviewed with the patient with the help of a video paper core machine operator. EGD procedure scheduled with Dr. Scott. [facility] Medical History (Updated 06/14/25 @ 12:30 by Anayeli Dinero CRM MANAGER) Rheumatoid arthritis Cervical spondylitis Depression Headache Dyslipidemia Hypertension Cerebral aneurysm, nonruptured Seizure disorder JOSÉ (obstructive sleep apnea) Delusions Major neurocognitive disorder Chest pain Dyspnea on exertion COVID-19 GERD (gastroesophageal reflux disease) DJD (degenerative joint disease) COPD (chronic obstructive pulmonary disease) Bipolar disorder CTS (carpal tunnel syndrome) Hx of rheumatoid arthritis Diabetic neuropathy Urinary incontinence Aneurysm of middle cerebral artery Pulmonary nodules CHF (congestive heart failure) Palpitations Migraine History of COVID-19 Mild aortic stenosis Asthma Insulin dependent type 2 diabetes mellitus Mixed hyperlipidemia Mood disorder Essential hypertension Surgical History History of esophagogastroduodenoscopy (EGD) No pertinent past surgical history Hx of cataract surgery H/O: hysterectomy Hx of cholecystectomy History of carpal tunnel release Family History Mother Myocardial infarction Father Myocardial infarction Sister Breast cancer Brother Spleen cancer Social History Household Members: None Housing: Apartment Do you presently have visiting nurse or other home services: Yes (train director) Unable to assess alcohol history related to: Unable to respond Alcohol intake: never Comment: report given by Cleo menendez Patient Tobacco Use Status: Never used Tobacco Tobacco use type: Cigarette Cigarette Packs Per Day: 0.2 Cigarettes Per Day: 4.0 Years Smoked: 0336-2021 e-Cigarette/Vaping Use: Never Used Second Hand Smoke Exposure: No Advance Directives Date on File: 11/20/23 service: No Current occupational status: retired Sexual orientation: Straight/Heterosexual Review of Systems Const All systems reviewed & are unremarkable except as noted in HPI and below Physical Exam Vital Signs: Last Vital Signs Pulse 78 03/22/25 10:34 BP 122/57 L 03/22/25 10:34 Pulse Ox 98 03/22/25 10:34 Oxygen Delivery Method Room Air 03/22/25 10:34 BMI result Body Mass Index 31.5 Const General: no acute distress Nutritional Appearance: obese Orientation/consciousness: patient oriented x3 Limitations: language barrier HEENT Head: Yes normal to inspection Ears: hearing grossly normal bilaterally Eyes Sclerae: sclerae normal Pupils: Equal, round and reactive pupils present Neck Neck: Yes normal visual inspection Chest Chest palpation & inspection: normal inspection of the chest Resp Effort & Inspection: normal respiratory effort Auscultation: clear to auscultation bilaterally Cardio Palpation: normal PMI Rate: regular rate Rhythm: regular rhythm Heart sounds: S1 normal heart sound present, S2 normal heart sound present and no murmurs GI Palpation (GI): Soft to palpation, nontender and No hepatosplenomegaly present Auscultation: normal bowel sounds Rectal Exam - Female: deferred Skin General skin exam: no rashes or lesions noted Neuro General: patient oriented x3, gait normal and moves all extremities Cranial nerves: Yes Equal, round and reactive pupils present Psych Appearance: grossly normal Mental Status: mental status grossly normal Assessment & Plan Assessment & Plan (1) Food bolus obstruction of intestine: Code(s): K56.699 - Other intestinal obstruction unspecified as to partial versus complete obstruction; W44.F3XA - Food entering into or through a natural orifice, initial encounter Category: Medical (2) Dysphagia, pharyngoesophageal phase: Code(s): R13.14 - Dysphagia, pharyngoesophageal phase Category: Medical (3) Colon polyp: Comment: 1- 2 years-due to inadequate prep, colon polyp not retrieved Code(s): K63.5 - Polyp of colon Category: Medical (4) Chronic constipation: Code(s): K59.09 - Other constipation Category: Medical (5) Dysphagia: Code(s): R13.10 - Dysphagia, unspecified Category: Medical Plan 69 YF w/PMHx JOSÉ, seizures, diabetes, RA, CHF, migraines, GERD, COPD here for FU of GERD, dysphagia and chronic constipation Pt was previously seen in 01/2025 when she presented to [facility] with esophageal obstruction due to food impaction EGD showed a 3 cms HH, esophageal stricture and esophageal candidiasis 03/22/25 Pt complains of odynophagia and heartburn - day and night Raspy throat and feeling of warmth in her throat Patient denies symptoms of nausea, vomiting. Admits to wt loss from 178 to 162 lbs. Pt reports constipation and is having a BM every 4-5 days Patient was advised to schedule a barium swallow for further evaluation of dysphagia and heartburn Take Senna 2 tab at bedtime for constipation Orders: Orders FL barium swallow 03/22/25 R13.10 - Dysphagia, unspecified Medications: New sennosides-docusate sodium 8.6-50 mg (Senna with Docusate Sodium) Please take every day at bedtime 2 tab-caps (2 x 8.6-50 mg) PO BEDTIME 120 tabs 2RF 60 days K59.09 - Other constipation Coding Level of Care Code Est Pt Level 4 (17510) Diagnoses Food bolus obstruction of intestine K56.699; W44.F3XA Dysphagia, pharyngoesophageal phase R13.14 Colon polyp K63.5 Chronic constipation K59.09 Dysphagia R13.10 Time Spent (min) 23
[2025-03-22 10:34] VITALS: BP 122/57; PULSE 78; O2SAT 98; BMI 31.5
--- OUTSIDE RECORDS SUMMARY | 2025-03-22 11:35 | XMS_ITS | Data Portability ---
Author Organization [employer], [facility] Address [address] [place] [address] Care Team Providers Care Section Plotter Operator Name Role Phone HIM CCA OTHER [facility] Prim carlyn Care Provider Assessment Encounter Date Assessment Date Assessment LastModified by Organization Details LastModified Time 04/23/2024 04/23/2024 As noted, we km e called to see this patient regarding concerns of hospital discharge. Evaluation in the field was performed by my academic coordinator colleague, as noted above, I provided real-time [...] Assessment and Plan as documented by the Irrigation Laborer. We discussed the diagnostic uncertainty of home visits and the risk associated with this/ the patient given the opportunity to ask questions. Advised if develops CP/severe SOB/turning blue/uncontrolled n/v/d /AMS/ syncope/ hi fever /cold blue leg or increasing red hot leg with uncontrolled pain to call 911- verbalized understanding of instruction [email or web address] Not available 08/23/2024 18:06:23 Plan of Treatment Reminders Order Date Submit Date Provider Last Modified By Organization Details Last Modified Time Details Appointments None recorded. Lab None recorded. Referral None recorded. Procedures None recorded. Surgeries None recorded. Imaging None recorded. Medication Orders prednisone 10 mg tablet 2023 [facility] #[id number], [address] [place], [address], 4 19:32:25 azithromyci n 250 mg tablet 2023 [facility] [address] [place], [address], 4 19:32:25 azithromyci n 250 mg tablet 2023 [facility] [facility], [address], [place], [id number], 4 19:32:23 prednisone 50 mg tablet 2023 [facility], [address] [place], [address], 4 19:32:26 prednisone 20 mg tablet [address] [facility] [facility]13437, [address], [place], [id number], 4 19:32:23 ipratropium 0.5 mg-albutero l 3 mg (2.5 mg base)/3 mL nebulizatio n soln 2023 024 [facility] #51179, [address], [place], [id number], 4 19:32:23 doxycycline hyclate 100 mg tablet 2023 024 [facility] #2071, [address] [place], [address], 4 14:01:33 mupirocin 2 % topical ointment 2023 024 [facility] #2071, [address] [place], [address], 4 14:01:34 acetaminoph en 500 mg tablet 2023 024 [email or web address] 0 [facility] #29051, [address], [place], [id number], 4 14:01:28 acetaminoph en 500 mg tablet 2023 024 [facility] [address] [place], [address], 4 14:01:34 bacitracin 500 unit/gram topical ointment 2023 024 [email or web address] 0 [facility] #72318, [address], [place], [id number], 4 18:08:41 doxycycline hyclate 100 mg tablet 2023 024 [email or web address] 0 [facility] #74755, [address], [place], [id number], 4 18:08:42 Patient TargetsNo targets recorded. Patient Instructions Encounter Date Encounter Id Patient Instructions Last Modified By Organization Details Last Modified Time 08/23/2024 [id number] application of wound dressing* - Wound cleansed with saline, pat dry with gauze, then superficial bacitracin applied,.I prefer mupirocin but the medic did not have any. Then bulky dry sterile dressing applied limiting tape on the skin and medic left some dressing supplies for the patient [email or web address] Not available 08/23/2024 18:08:41 Reason for Referral None Reported. Medical Equipment None Reported. Allergies Allergen ID Allergen Name Allergen Category Reaction Reaction Severity Criticality Documentation Date Start Date Code Code System Note Provider Name and Address Organization Details Recorded Time 9765 Product containin g penicilli n (product) medicatio n Not available Not available Not available 08/10/2024 86513 8001 SNOMED Not Available [employer] - production [...] Available No t Available Easy Comfort Pen [place] 31 gauge x 5/16 USE DIRECTED THREE [...] % 135 mm[Hg] 78 mm[Hg] Not Available [employer] 4 19:42:38 Date Recorded Respiratory rate Heart rate Body temperature Oxygen saturation Oxygen saturation in Arterial blood by Pulse oximetry Systolic blood pressure Diastolic blood pressure Provider Name and Address Organization Details Last Updated DateTime 4 16 /min 74 /min 98.6 [degF] 98 % 98 % 110 mm[Hg] 70 mm[Hg] Not Available [employer] 4 13:42:15 Date Recorded Body temperature Respiratory rate Body weight Body height Heart rate Oxygen saturation Oxygen saturation in Arterial blood by Pulse oximetry Systolic blood pressure Diastolic blood pressure Provider Name and Address Organization Details Last Updated DateTime 4 99.1 [degF] 14 /min 95991.6 g 167.64 cm 90 /min 96 % 96 % 148 mm[Hg] 78 mm[Hg] Not Available [employer] 4 19:25:22 Social History None recorded. Functional Status None recorded. Mental Status None recorded. Family History Nothing Reported. Medical History No medical history recorded. Gynecological HistoryNo gynecological history recorded. Obstetrics History GPAL:G 0 P 0 0 0 0 Past Encounters Encounter ID Performer Location Encounter Start Date Encounter Closed Date Diagnosis/Indication Diagnosis SNOMED-CT Code Diagnosis ICD10 Code Diagnosis Note [id number] Argelia Aceves MD Main - [address] [phone] 02/09/2024 17:15:15 02/09/2024 22:22:30 Injury of head 62203907 S09.90XA 68 year old female being evaluated [...] assessment and plan as documented by the academic coordinator. I provided real-time medical direction for this encounter and was immediatel y available to provide additional phone-base d assistance as needed. We discussed the diagnostic uncertaint y of home visits and associated risks. We discussed the need to seek care urgently/e mergently in the setting of any new or worsening symptoms. [id number] Gunjan Park MD Main - [facility] [address] [place] [phone] 04/23/2024 19:42:36 04/25/2024 22:12:32 Post-discharge follow-up [id number] Z09 [id number] Daya Almanza MD Main - [facility] [address] [place] [id number] 08/23/2024 13:42:09 08/23/2024 21:01:21 Cellulitis of left lower limb [id number] 7610909 L03.116 puncture wound w/ infectionA dvised need to get x-ray to fully evaluate the extent of the damage-to rule out foreign body, possible fracture (although the latter is less likely because she is still ambulatory ) and the patient refused to leave. Risks of worse infection explained- including retained foreign body -loss of limb Allergies and pharmacy [facility] [place] Advised patient need to follow-up with PCP tomorrow-n ote also sent to rn care transition through [facility]:pat had metal trina ferro her [...] e before according to her med list [id number] Hector Llanes MD Main - [facility] [address] [place] [id number] 09/21/2024 19:25:20 09/23/2024 00:02:50 Acute exacerbation of chronic obstructive pulmonary disease [id number] J44.1 As noted, we were called to see this patient regarding concerns of breathing difficulty , cough, sputum, concerning for COPD exacerbati on. Evaluation in the field was performed by my academic coordinator colleague, as noted above, I provided real-time [...] Recorded Advance Directives Directive None Recorded Payers Insurance Date Sequence Insurance Name Policy Number Policy Edwards Covered Member ID Edwards Member ID Guarantor Name 09/21/2024 1 [facility] - DOS ON OR AFTER 2023 - DUAL ELIGIBLE - LONGTERM OPTIONS AND ONE CARE (MEDICARE REPLACEMENT/ADV ANTAGE - HMO) Melyssa Keating [id number] Melyssa Keating Notes Date Note Type Note Provider Name and Address Organization Details Recorded Time 02/09/2024 text/html HPI: Member was falling asleep on phone with rn care transition. Minimally responsive to prompts. She refused pressing her PERS and refused rn care transition calling 911. ..................... ..................... ..................... ..................... ..................... ..................... ............... [facility] Nurse Triage Notes (Bailey Chavez): Comments: [facility] outreach to member was unsuccessful. Unable to reach- N Kathy RN ..................... ..................... ..................... ..................... ..................... ..................... ............... Irrigation Laborer Note From Kelvin Thomas: t reports falling [...] ..................... ..................... ..................... ..................... ..................... ............... Disposition: Wilbur Argelia Aceves MD [address] [facility],[address], [place], [address], [employer] 02/09/2024 18:18:39 04/23/2024 text/html HPI: HPIarrived at [...] (Carole Estrada)Outreach to member completed with an account installer Member stated that she is feeling fine. Member did have a fall , denies hitting her head or pain after fall. Member denies any trouble staying awake. Member denies any sob, DANIEL, eating and drinking . Seemed to be delay in responding on with account installer unable to fully assessupdated 1553- unable to [...] [facility]: hospitalized 04/10-04/12 for r/o TIA. requested [...] ..................... ..................... ..................... ..................... ..................... ..................... .. Irrigation Laborer Note From Laura Lee: Dispatched for 68 yo female chief complaint of lethargy/weakness. U/a pt is found seated upright on couch in living room. Pt presents CA&Ox4, patent airway, normal breathing and skin signs warm, pink and dry. Language barrier present -> process safety specialist services utilized. Pt states she has a [...] ..................... ............... Disposition: Fulfilled Gunjan Park MD [address] [place] [address],[address], [place], [address], [employer] 04/23/2024 21:50:39 08/23/2024 text/html [facility] Nurse Triage Notes (Bailey Chavez): Reason For Request: Pt's OPTIMIZATION SPECIALIST reporting left leg swelling/knee swelling, discoloration/redness >mbr [...] ..................... ..................... ..................... ..................... ..................... ..................... ............... Irrigation Laborer Note From Edmar Martinez: Dispatched for a scheduled visit for a female pt. with a left leg wound. pt. was found alert and oriented x3 sitting in living room japanese speaking only. process safety specialist contacted and it was determined the patient [...] +cms in all extremities -stroke scale findings. [facility] contacted medication list and photos of the affected area forwarded. [facility] ordered to clean the wound with sterile [...] also advised to follow up with PCP. C noted to doctor need for x-ray.all times are approx.report completed by jacob martinez ..................... ..................... ..................... ..................... ..................... ..................... ............... [facility] Consulted: Daya Almanza ..................... ..................... ..................... ..................... ..................... ..................... ............... Disposition: Fulfilled Daya Almanza MD [address] [place] [address],[address], [place], [address], [employer] 08/23/2024 18:10:00 09/21/2024 text/html [facility] Nurse Triage Notes (Soha Nichloson): Reason For Request: Patient has coughing problems, [...] covid last week. [facility]. Irrigation Laborer Organization Information for [employer] Name: [facility] Address: [address] [place] [address], [place]er Chief Delivery: Seb Avila MD CLIA No.: [id number] Irrigation Laborer POC Test Results from [facility] - [facility] Rapid COVID antigen (19:21:34) COVID: - Rapid influenza antigen (19:21:35) Flu: - ..................... ..................... ..................... ..................... ..................... ..................... ............... Irrigation Laborer Note From [employer]ot[employer]: Patient alert and oriented all information through medical phone Clamp Operator. Patient complains of continued cough and difficulty [...] throughout lungs. Abdomen soft, nontender extremities unremarkable. [facility] orders prednisone 40 mg PO, azithromycin 500 mg PO, DuoNeb x1 and will Rx more to patients local pharmacy. Patient reports she has made a plan with her [facility] to coordinate PCP visit. Patient said she? s able to get the medications. Medications administered without complication using five rights. Red flags and patient education discussed via Clamp Operator.Patient demonstrates understanding of care and plan. Patient negative for Covid and flu via rapid POC. ..................... ..................... ..................... ..................... ..................... ..................... ............... [facility] Consulted: Kemar Llanes ..................... ..................... ..................... ..................... ..................... ..................... ............... Disposition: Fulfilled Hector Llanes MD [address] [facility],[address], [place], [address], [employer] 09/21/2024 21:09:50 OBGyn Episode No OBEpisode recorded.
== END 2025-03-22 11:19 | disposition home or self-care (01) ==
LOC: HO.HGI 10:07
PROVIDERS: PCP Internal Medicine; Visit Provider Internal Medicine Gastroenterology
DX: K56.699 Other intestinal obstruction unspecified as to partial versus complete obstruction (principal); W44.F3XA Food entering into or through a natural orifice, initial encounter; R13.14 Dysphagia, pharyngoesophageal phase; K63.5 Polyp of colon; K59.09 Other constipation; R13.10 Dysphagia, unspecified
CPT/HCPCS: 99499

== ENCOUNTER 2025-06-14 11:43 | Outpatient (REF) | payer OTHER, SELFPAY ==
[2025-06-14 14:47] LABS: Blood Urea Nitrogen 23 mg/dL (9-16); Estimated Glomerular Filt Rate > 60
== END 2025-06-14 11:44 | disposition home or self-care (01) ==
LOC: HO.LAB 11:43
PROVIDERS: PCP Internal Medicine; Visit Provider Registered Nurse
DX: G44.209 Tension-type headache, unspecified, not intractable (principal); I67.1 Cerebral aneurysm, nonruptured; Z79.899 Other long term (current) drug therapy; Z79.891 Long term (current) use of opiate analgesic
CPT/HCPCS: 36415; 82565; 84520; 85652; 86140; 99212

== ENCOUNTER 2025-06-14 11:43 | Outpatient (AMB) | payer OTHER, SELFPAY ==
--- OUTSIDE RECORDS SUMMARY | 2025-06-14 09:45 | XMS_ITS | Encounter Summary ---
Author Organization [employer] Address [address] [place] [address] Care Team Providers Care Medical Office Supervisor Name Role Phone Ashwin Arzola MD Primary Care Provider [phone] Reason for Visit * Reason Comments Sleep Apnea No compliance use Asthma Encounter Details Date Type Department Care Team (Latest Contact Info) Description 06/14/2025 9:45 AM EDT Office Visit Pulmonolgy - [place] 175 [facility] [address] [place] [address] Cami Dupont, [place] 230 [place] [address] Moderate persistent asthma without complication (Primary Dx); JOSÉ (obstructive sleep apnea); Stage 1 mild COPD by GOLD classification (CMS/HCC V24, CMS/HCC V28) Social History Tobacco Use Types Packs/Day Years [...] Sign Reading Time Taken Comments Blood Pressure 124/80 06/14/2025 9:57 AM EDT Pulse 88 06/14/2025 9:57 AM EDT Temperature 35.7 C (96.2 F) 06/14/2025 9:57 AM EDT Respiratory Rate 16 06/14/2025 9:57 AM EDT Oxygen Saturation 92% 06/14/2025 9:57 AM EDT Inhaled Oxygen Concentration - - Weight 78.1 kg (172 lb 3.2 oz) 06/14/2025 9:57 A M EDT Height 165.1 cm (5' 5 ) 06/14/2025 9:57 AM EDT Body Mass Index 28.66 06/14/2025 9:57 AM EDT documented in this encounter Progress Notes * Cami Dupont NP - 06/14/2025 9:45 AM EDT Please talk to prescribing provider about adjusting medications that may be affecting her sleepiness:Seda Mcgowan. documented in this encounter Plan of Treatment Upcoming Encounters Date Type Department Care Team (Late st Contact Info) Description 06/20/2025 11:15 AM EDT Office Visit Orthopedic Surgery [place] [address] [phone] Michele May MD 230 [place] [address] 06/28/2025 11:00 AM EDT Office Visit Adult Medicine [facility] [address] [place] [phone] Jenna Escobar NP 444 [place] [address] 07/26/2025 10:30 AM EDT Office Visit Orthopedic Surgery [place] [address] [phone] Linus Luna DPM [address] [phone] 08/11/2025 10:35 AM EDT Office Visit Pulmonolgy [facility] 175 [facility] 200 [place] [phone] Cami Dupont NP 230 [place] [address] 08/15/2025 10:40 AM EST Office Visit [facility] - [address] 300 [facility] [address] [place] [address] Hermelinda Marmolejo NP [address] [place] [address] [place] [address] documented as of this encounter Visit Diagnoses Diagnosis Moderate persistent asthma without complication- Primary JOSÉ (obstructive sleep apnea) Obstructive sleep apnea (adult) (pediatric) Stage 1 mild COPD by GOLD classification (CMS/HCC V24, CMS/HCC V28) documented in this encounter Care Teams Medical Office Supervisor Relationship Specialty Start Date End Date Ashwin Arzola MD 4 [place] [address] PCP - General Internal Medicine 08/01/20 documented as of this encounter
--- NOTE | 2025-06-14 11:57 | A.OFFVIS_ITS ---
Vital Signs 06/14/25 12:17 Height 5 ft 2 in Intake Visit Reasons: Follow Up Accompanied by: INDEX EDITOR Allergies Penicillins Allergy (Mild, Verified 06/14/25 12:23) Swelling Medication List - Last Reconciled 06/14/25 by Anayeli Dinero CNP albuterol sulfate mg continuous nebulization albuterol sulfate 90 mcg/actuation 2 puffs inhalation Q6H PRN amitriptyline 150 mg PO BEDTIME aspirin 81 mg PO DAILY atorvastatin 80 mg PO BEDTIME azithromycin 250 mg PO DAILY 4 days blood sugar diagnostic ([place] Ultra Test strips) As directed budesonide-formoterol 160-4.5 mcg/actuation inhalation masvfugqpa-fouwxdfzrrrzk-vlhf 50-325-40 mg 1 tab PO Q6H PRN ciclopirox 0.77% 1 appl topical BID clonazepam 0.5 mg PO TID PRN docusate sodium 100 mg PO BID duloxetine 60 mg PO DAILY famotidine 20 mg PO DAILY fluconazole 100 mg PO DAILY yyhzbfsljio-gopzzetch-ubttxsoc 100-62.5-25 mcg (Trelegy Ellipta) 1 ea inhalation DAILY furosemide (Lasix) 40 mg PO gabapentin 300 mg PO TID insulin glargine (Lantus U-100 Insulin) 10 units (0.1 mL) subcut BEDTIME lancets ([place] Delica Plus Lancet) As directed lisinopril 10 mg PO DAILY loratadine 10 mg PO DAILY magnesium oxide 400 mg PO DAILY metformin ER 500 mg PO DAILY metoclopramide HCl 10 mg PO QID metoprolol tartrate 25 mg PO DAILY montelukast 10 mg PO BEDTIME nitroglycerin 0.4 mg sublingual Q5M PRN omeprazole 40 mg PO BID pantoprazole 40 mg PO DAILY potassium chloride ER 20 mEq PO DAILY prednisone 40 mg (2 x 20 mg) PO DAILY prednisone 40 mg (2 x 20 mg) PO DAILY 5 days sennosides (senna) 8.6 mg PO DAILY sennosides-docusate sodium 8.6-50 mg (Senna with Docusate Sodium) 2 tab-caps (2 x 8.6-50 mg) PO BEDTIME 60 days tiotropium bromide (Spiriva with HandiHaler) 1 cap inhalation DAILY tramadol 50 mg PO Q8H PRN HPI Comments Details: Headaches were about the same. Gets daily, pressure-type pain to top of head, vertex to posterior occipital with neck pain, usually left sided. Some photophobia and sonophobia, no nausea or vomiting. As needed medication helped some. No further falls. Some dizziness with position changes. Sleep was a little better. Previously, was waking up in the night and had some nausea. MRI and workup were negative. Fell in kitchen 10/2022. Had normal CAT scan of head. Had CTA of neck which was unremarkable. CTA of brain showed an incidental finding of 4mm right MCA aneurysm. 07/25/2023 f/u CTA shows stable appearing 3.7mm x 3mm saccular aneurysm projecting laterally from the right MCA bifurcation. She has hx of aneurysmal rupture in first degree relative, her brother. [facility] Medical History (Updated 06/14/25 @ 12:30 by Anayeli Dinero [facility]) Rheumatoid arthritis Cervical spondylitis Depression Headache Dyslipidemia Hypertension Cerebral aneurysm, nonruptured Seizure disorder JOSÉ (obstructive sleep apnea) Delusions Major neurocognitive disorder Chest pain Dyspnea on exertion COVID-19 GERD (gastroesophageal reflux disease) DJD (degenerative joint disease) COPD (chronic obstructive pulmonary disease) Bipolar disorder CTS (carpal tunnel syndrome) Hx of rheumatoid arthritis Diabetic neuropathy Urinary incontinence Aneurysm of middle cerebral artery Pulmonary nodules CHF (congestive heart failure) Palpitations Migraine History of COVID-19 Mild aortic stenosis Asthma Insulin dependent type 2 diabetes mellitus Mixed hyperlipidemia Mood disorder Essential hypertension Surgical History History of esophagogastroduodenoscopy (EGD) No pertinent past surgical history Hx of cataract surgery H/O: hysterectomy Hx of cholecystectomy History of carpal tunnel release Family History Mother Myocardial infarction Father Myocardial infarction Sister Breast cancer Brother Spleen cancer Social History Household Members: None Housing: Apartment Do you presently have visiting nurse or other home services: Yes (skein mercerizing machine operator) Unable to assess alcohol history related to: Unable to respond Alcohol intake: never Comment: report given by Cleo menendez Patient Tobacco Use Status: Never used Tobacco Tobacco use type: Cigarette Cigarette Packs Per Day: 0.2 Cigarettes Per Day: 4.0 Years Smoked: 3081-5625 e-Cigarette/Vaping Use: Never Used Second Hand Smoke Exposure: No Advance Directives Date on File: 11/20/23 service: No Current occupational status: retired Sexual orientation: Straight/Heterosexual Review of Systems Const Denies chills, Denies daytime sleepiness, Reports difficulty sleeping, Denies fatigue, Denies fever(s), Denies frequent falls, Reports headache(s), Denies increased appetite, Denies poor appetite, Denies snoring, Denies weakness, Denies weight gain and Denies weight loss Eyes Denies loss of vision ENT Denies vertigo, Reports dizziness, Reports headache(s) and Reports neck pain Card Denies chest pain at rest, Denies chest pain with activity, Denies syncope, Denies leg edema, Denies palpitations, Denies dyspnea and Denies dyspnea on exertion Resp Denies cough, Denies dyspnea, Denies dyspnea on exertion and Denies snoring GI Denies abdominal pain, Denies constipation, Denies heartburn, Denies diarrhea and Denies nausea Denies urinary frequency, Denies urinary incontinence and Denies urinary urgency Musc Denies abnormal gait, Reports back pain, Denies myalgias, Reports arthralgias, Reports neck pain, Reports numbness and Reports tingling Neuro Denies abnormal gait, Denies vertigo, Reports dizziness, Denies syncope, Denies frequent falls, Reports headache(s), Denies lack of coordination, Denies loss of vision, Denies memory loss, Reports numbness, Denies Other visual disturbances, Denies restless legs, Denies seizure-like activity, Reports tingling, Denies paresthesias, Denies tremor(s) and Denies weakness Psych Reports anxiety, Reports depression, Denies auditory hallucinations, Denies memory loss and Denies visual hallucinations Endo Denies fatigue and Denies palpitations Physical Exam Const Other: General Appearance:? normal, in no acute distress. Heart:? S1, S2 normal, no murmurs. Lungs:? clear anteriorly and posteriorly. Musculoskeletal:? normal. Extremities:? no edema. Psych:? alert, oriented, cognitive function intact, cooperative with exam. Neuro Other: Abnormal Neurological Findings:?none.? Mental Status: alert and oriented X 3. Normal attention, orientation, memory, and affect. Cranial Nerves: Pupils are equal, round, and reactive to light. External ocular muscles are intact. Visual machado are full, no ptosis. Face is symmetrical, no facial weakness or droop. Facial sensations are normal. Tongue protrudes in midline. Palate elevates symmetrically. Shoulder shrugging is normal Motor Examination: Normal muscle tone, bulk and strength. No atrophy or fasciculations. No drift of the extended upper extremities. DTR 2+. Plantars are flexor. Sensory Exam: Normal light touch, temperature, pinprick, vibration, and joint- position sensations. Rhomberg sign is absent. Coordination: No ataxia. No titubation. Gait Exam: Within normal limits. Cerebellar Signs: Xzkoky-mn-nkma and ouop-po-pkdr is normal. No dysdiadochokinesia. Extrapyramidal System: No tremor, rigidity with normal facial expressions. No bradykinesia. No bradyphrenia. Normal arm swing and posture. No propulsion or retropulsion. Speech: Normal. No dysphasia or dysarthria. Results Reviewed Results Reviewed: 07/25/23 CTA: Stable appearing 3.7 mm x 3 mm saccular aneurysm projecting laterally from the right MCA bifurcation. CT and MRI brain normal. Assessment & Plan Assessment & Plan (1) Tension headache: Code(s): G44.209 - Tension-type headache, unspecified, not intractable Category: Medical Plan: Continue amitriptyline 150mg 1 tablet at bedtime. Continue gabapentin 300mg 1 capsule three times a day. Continue xkvdjilnxn-OMGQ-botk 50-325-40mg 1 tablet as needed q6h for headache #20 for 30 days. Continue tramadol 50mg 1 tablet as needed q8h for pain #30 for 30 days. Reviewed labs ordered. (2) Cerebral aneurysm, nonruptured: Code(s): I67.1 - Cerebral aneurysm, nonruptured Category: Medical Plan: CTA and labs ordered. Orders: Orders C Reactive Protein Today G44.209 - Tension-type headache, unspecified, not intractable Blood Urea Nitrogen Today I67.1 - Cerebral aneurysm, nonruptured Erythrocyte Sedimentation Rate Today G44.209 - Tension-type headache, unspecified, not intractable Creatinine Today I67.1 - Cerebral aneurysm, nonruptured Coding Level of Care Code Est Pt Level 4 (85337) Diagnoses Tension headache G44.209 Cerebral aneurysm, nonruptured I67.1
--- OUTSIDE RECORDS SUMMARY | 2025-06-14 13:16 | XMS_ITS | Encounter Summary ---
Author Organization [facility] Address [address] [place] [address] Care Team Providers Care Fiberglass Container Winding Operator Name Role Phone Ashwin Arzola MD Primary Care Provider [phone] Reason for Visit * Reason Onset Date Comments faxed order 06/06/2025 Faxed order rece ived From [address] [id number] Encounter Details Date Type Department Care Team ([facility] Contact Info) Description 06/06/2025 Telephone Adult Medicine [address] [phone] Antonio Elias LPN Social History Tobacco Use Types Packs/Day Years [...] Progress Notes * Antonio Elias LPN - 06/06/2025 2:09 PM EDT Faxed orders [id number] on providers desk waiting signature documented in this encounter Plan of Treatment Upcoming Encounters Date Type Department Care Team (Late Contact Info) Description 06/20/2025 11:15 AM EDT Office Visit Orthopedic Surgery [place] [address] 175 [facility] 250 [place] [phone] Michele May MD 230 [place] [address] 06/28/2025 11:00 AM EDT Office Visit Adult [facility] 444 [place], [place] [phone] Jenna Escobar NP 444 [place], [place] 07/26/2025 10:30 AM EDT Office Visit Orthopedic Surgery [facility] 250 175 [facility] 250 [place] [phone] Linus Luna, DPM [address] [phone] 08/11/2025 10:35 AM EDT Office Visit Pulmonolgy - [place] 175 [facility] 200 [place] [phone] Cami Dupont NP 230 [place] [address] 08/15/2025 10:40 AM EST Office Visit [facility] - [facility] 102 300 [facility] [place] [facility] 102 [place] [address] Hermelinda Marmolejo NP [address] [place] [address] [place] [address] documented as of this encounter Visit Diagnoses Not on filedocumented in this encounter Care Teams Fiberglass Container Winding Operator Relationship Specialty Start Date End Date Ashwin Arzola MD [address] [place] [address] PCP - General Internal Medicine 08/01/20 documented as of this encounter
--- OUTSIDE RECORDS SUMMARY | 2025-06-14 13:16 | XMS_ITS | Encounter Summary ---
Author Organization [facility] Address [address] [place] [address] Care Team Providers Care Health And Safety Representative Name Role Phone Ashwin Arzola MD Primary Care Provider [phone] Encounter Details Date Type Department Care Team (Late Contact Info) Description 06/09/2025 Telephone Adult Medicine [address] [phone] Antonio Elias LPN Social History Tobacco Use [...] Upcoming Encounters Date Type Department Care Team ([facility] Contact Info) Description 06/20/2025 11:15 AM EDT Office Visit Orthopedic Surgery - [place] [address] [place] [phone] Michele May MD [address] [place] [phone] 06/28/2025 11:00 AM EDT Office Visit Adult Medicine [address] [phone] Jenna Escobar NP 444 [place] [address] 07/26/2025 10:30 AM EDT Office Visit Orthopedic Surgery - [place] 250 175 [facility] [address] 250 [place] [phone] Linus Luna, DPM 175 [facility] [address] 250 [place] [phone] 08/11/2025 10:35 AM EDT Office Visit Pulmonolgy - [place] 175 [facility] [address] [place] [phone] Cami Dupont, [place] 230 [place] [address] 08/15/2025 10:40 AM EST Office Visit [facility] - [facility] 102 300 [facility] 102 [place] [phone] Hermelinda Marmolejo, [place] [address] [place] [address] Dr Panchal [address] [place] [phone] documented as of this encounter Visit Diagnoses Not on filedocumented in this encounter Care Teams Health And Safety Representative Relationship Specialty Start Date End Date Ashwin Arzola MD 4 [place] [address] PCP - General Internal Medicine 08/01/20 documented as of this encounter
--- OUTSIDE RECORDS SUMMARY | 2025-06-14 13:17 | XMS_ITS | Encounter Summary ---
Author Organization [facility] Address [address] [place] [address] Care Team Providers Care Pharmacy Informatics Specialist Name Role Phone Ashwin Arzola MD Primary Care Provider [phone] Encounter Details Date Type Department Care Team (Late Contact Info) Description 01/07/2025 Billing Patient Not Present Adult Medicine [address] [phone] Ashwin Arzola MD [address] [place] [address] Social History Tobacco Use Types Packs/Day Years [...] AM EDT Office Visit Orthopedic Surgery - [place] [address] [place] [phone] Michele May MD 230 [place] [phone] 06/28/2025 11:00 AM EDT Office Visit Adult Medicine [facility] 444 [place], [place] [phone] Jenna Escobar, CERTIFIED PEDIATRIC NURSE PRACTITIONER 444 [place], [place] 07/26/2025 10:30 AM EDT Office Visit Orthopedic Surgery - [place] 250 175 [facility] 250 [place] [phone] Linus Luna, DPM 175 [facility] 250 [place] [phone] 08/11/2025 10:35 AM EDT Office Visit Pulmonolgy - [place] 175 [facility] 200 [place] [phone] Cami Dupont NP 230 [place] [address] 08/15/2025 10:40 AM EST Office Visit [facility] - [facility] 102 300 [facility] 102 [place] [phone] Hermelinda Marmolejo, [place] [address] [place] [address] [place] [address] documented as of this encounter Visit Diagnoses Not on filedocumented in this encounter Care Teams Pharmacy Informatics Specialist Relationship Specialty Start Date End Date Ashwin Arzola MD 4 [place], [place] PCP - General Internal Medicine 08/01/20 documented as of this encounter
--- OUTSIDE RECORDS SUMMARY | 2025-06-14 13:17 | XMS_ITS | Clinical Summary ---
Author Organization [facility] [address] [facility] Address [address] [place] [address] Phone Care Team Providers Care Blast Furnace Supervisor Name Role Phone Ashwin Arzola MD Primary Care Provider [phone] Allergies Active Allergy Reactions Criticality Noted Date Comments Penicillins Swelling 11/21/2011 Medications butalbital-acet aminophen-caffe ine (FIORICET, ESGIC) 50-325-40 mg per tablet Take 1 tablet by mouth 1 (one) time each day. 023 Active ciclopirox (LOPROX) 0.77 % gel Apply 1 Application topically 1 (one) time each day. 023 Active clonazePAM (KlonoPIN) 1 mg tablet Take 1 tablet (1 mg total) by mouth at bedtime. 022 Active diclofenac (VOLTAREN) 1 % topical gel Apply 4 g topically 4 times daily. 023 Active DULoxetine (CYMBALTA) [address] capsule TAKE 1 CAPSULE BY MOUTH ONCE DAILY WITH 60MG FOR TOTAL DAILY DOSE OF 80MG 022 Active miconazole nitrate 2 % aerosol,spray Apply 1 applicator topically. 024 Active naproxen (NAPROSYN) 500 mg tablet Take 1 Tablet by mouth 2 times daily (with meals). 024 Active nystatin (MYCOSTATIN) 100,000 unit/gram powder 024 Active pantoprazole (PROTONIX) 40 mg EC tablet Take 1 tablet (40 mg total) by mouth 1 (one) time each day. Active polyethylene glycol (MIRALAX) 17 gram packet Take 1 Packet by mouth daily Active QUEtiapine (SEROquel) 100 mg tablet Take 1 tablet (100 mg total) by mouth 2 (two) times a day. Active simethicone (Phazyme) 250 mg capsule Take 1 Tablet by mouth 4 times daily as needed for Other. Active topiramate (TOPAMAX) 100 mg tablet Take 2 tablets (200 mg total) by mouth 2 (two) times a day. Active traMADoL (ULTRAM) 50 mg tablet Take 1 tablet (50 mg total) by mouth every 8 (eight) hours if needed. Active zolpidem (AMBIEN) 10 mg tablet Take 1 tablet (10 mg total) by mouth at bedtime. Active lancets lancets USE TO CHECK SUGARS TWICE DAILY Active glucose blood test strip USE TO CHECK SUGARS TWICE DAILY Active UNABLE TO FIND Insulin Pen Needle (B-D ULTRAFINE III SHORT PEN) 31G X 8 MM Misc, USE DIRECTED THREE TIMES DAILY Active blood-glucose meter kit Test tid Active pen needle, diabetic (BD Ultra-Fine Short Pen Needle) 31 gauge x 5/16 needle Use as directed three times daily Active UNABLE TO FIND CPAP Historical (HISTORICAL CPAP), by Nasal route at bedtime. BHI&R-pressure 6-16 Active gabapentin (NEURONTIN) 100 mg capsule Take 1 capsule (100 mg total) by mouth 3 (three) times a day. 90 each Active DULoxetine (CYMBALTA) [address] capsule Take 1 capsule (60 mg total) by mouth 1 (one) time each day. 30 each Active famotidine (Pepcid) 20 mg tablet Take 1 tablet (20 mg total) by mouth 1 (one) time each day. 30 each 024 2024 Active clonazePAM (KlonoPIN) 0.5 mg tablet Take 0.5 tablets (0.25 mg total) by mouth 1 (one) time each day. Max Daily Amount: 0.25 mg 15 each Active valproic acid (DEPAKENE) 250 mg/5 mL syrup Take 5 mL (250 mg total) by mouth 2 (two) times a day. 300 mL Active hydrocortisone 2.5 % cream Apply topically 2 (two) times a day if needed for irritation or rash. 30 g 2 024 2024 Active blood-glucose meter,continuou s (FreeStyle Cade 3 Wana) miscIndications :Type 2 diabetes mellitus with other specified complication, with long-term current use of insulin ([facility] V24, [facility] V28) To check sugars 1 each Active docusate sodium (COLACE) 100 mg capsule TAKE 1 CAPSULE BY MOUTH TWICE DAILY 60 capsule 4 Active diclofenac (VOLTAREN) 1 % topical gel Apply 2 g topically 4 (four) times a day. 30 g 1 025 Active diclofenac (VOLTAREN) 1 % topical gel Apply 2 g topically 4 (four) times a day. 30 g 1 025 Active blood-glucose sensor (FreeStyle Cade 3 Plus Sensor) deviceIndicatio ns:Type 2 diabetes mellitus with other specified complication, with long-term current use of insulin ([facility] V24, [facility] V28) Box = Kit = EA, change sensor every 14 days 6 each Active clonazePAM (KlonoPIN) 0.5 mg tablet One tab qhs and 1/2 tab in the am 45 tablet 025 Active amitriptyline (ELAVIL) 150 mg tablet Take 1 tablet (150 mg total) by mouth at bedtime. 30 tablet 025 Active montelukast (SINGULAIR) 10 mg tabletIndicatio ns:Moderate persistent asthma without complication Take 1 tablet (10 mg total) by mouth at bedtime. 30 tablet 2 Active loratadine (CLARITIN) 10 mg tabletIndicatio ns:Moderate persistent asthma without complication Take 1 tablet (10 mg total) by mouth 1 (one) time each day. 30 each 2 05/132025 Active albuterol HFA (Ventolin HFA) 90 mcg/actuation inhalerIndicati ons:Moderate persistent asthma without complication Inhale 2 puffs by mouth every 6 (six) hours if needed for wheezing. 18 g 2 2025 Active ipratropium-alb uteroL (DUONEB) 0.5-2.5 mg/3 mL nebulizer solutionIndicat ions:Moderate persistent asthma without complication Take 3 mL by nebulization every 6 (six) hours if needed for wheezing or shortness of breath (or cough or chest tightness.). 150 mL 2 025 2025 Active traZODone (DESYREL) 50 mg tablet TAKE 1 TABLET BY MOUTH ONCE DAILY AT BEDTIME NEEDED FOR SLEEP 90 tablet 1 Active atorvastatin (LIPITOR) 80 mg tablet TAKE 1 TABLET BY MOUTH DAILY AT BEDTIME 90 tablet 1 Active metoprolol succinate (TOPROL-XL) 25 mg 24 hr tablet TAKE 1 TABLET BY MOUTH ONCE DAILY 90 tablet 1 Active senna 8.6 mg tablet Take 1 tablet (8.6 mg total) by mouth 1 (one) time each day. 30 tablet 4 Active acetaminophen (TYLENOL 8 HOUR) 650 mg 8 hr tablet Take 1 tablet (650 mg total) by mouth 2 (two) times a day if needed for mild pain. Take 1 Tablet by mouth 2 times daily for 10 days 30 tablet Active gabapentin (NEURONTIN) 300 mg capsule Take 1 capsule (300 mg total) by mouth 2 (two) times a day. Active predniSONE (DELTASONE) 20 mg tablet 3 tabs po x 5days then 2 tabs po x 5 days then one tab po x 5 day 30 each 5 Active albuterol 2.5 mg /3 mL (0.083 %) nebulizer solutionIndicat ions:Dyspnea, unspecified type,Severe persistent asthma, unspecified whether complicated ([facility] V28) Take 3 mL (2.5 mg total) by nebulization 4 (four) times a day if needed for wheezing or shortness of breath. 360 mL 1 025 2025 Active fluticasone-ume clidinium-vilan terol (Trelegy Ellipta) 100-62.5-25 mcg inhalerIndicati ons:Moderate persistent asthma without complication Inhale 1 puff (100 mcg total) by mouth 1 (one) time each day. 1 each 2 025 2024 Active magnesium oxide (MAG-OX) 400 mg (241.3 elemental magnesium) tablet Take 1 tablet (400 mg total) by mouth 1 (one) time each day. 90 tablet 1 025 Active metFORMIN XR (GLUCOPHAGE-XR) 500 mg 24 hr tabletIndicatio ns:Type 2 diabetes mellitus with other specified complication, with long-term current use of insulin ([facility] V24, [facility] V28) Take 1 tablet (500 mg total) by mouth 1 (one) time each day. 30 tablet 1 Active metoclopramide (REGLAN) 10 mg tablet TAKE 1 TABLET (10 MG TOTAL) BY MOUTH 4 (FOUR) TIMES A DAY. 120 tablet Active ammonium lactate (AMLACTIN) 12 % cream Apply topically if needed for dry skin. 560 g 1 025 2024 Active diclofenac (VOLTAREN) 1 % topical gel APPLY 2 GRAMOS TOPICALLY TO THE AFFECTED AREA two (2) times a day 100 g 5 Active doxycycline (VIBRAMYCIN) 100 mg capsule Take 1 capsule (100 mg total) by mouth 2 (two) times a day for 7 days. Take with at least 8 ounces (large glass) of water, do not lie down for 30 minutes after. Administer 2 hours before or after multivitamins, antacids, or other products containing polyvalent cations (i.e., calcium, iron, magnesium, selenium, zinc). 14 each 025 2024 Active mupirocin (BACTROBAN) 2 % cream Apply topically 3 (three) times a day. 30 g 025 Active insulin glargine (Lantus Solostar U-100 Insulin) 100 unit/mL (3 mL) injection pen Inject 32-34 Units under the skin 1 (one) time each day. 15 mL 025 Active ammonium lactate (LAC-HYDRIN) 12 % lotion 022 2024 Discontinued(R eorder) furosemide (LASIX) 40 mg tablet Take 1 tablet (40 mg total) by mouth 2 (two) times a day. 023 2024 Discontinued(T herapy completed) insulin glargine (Lantus Solostar U-100 Insulin) 100 unit/mL (3 mL) injection pen Inject 30 Units under the skin 1 (one) time each day. 024 2024 Discontinued metFORMIN XR (GLUCOPHAGE-XR) 500 mg 24 hr tabletIndicatio ns:Type 2 diabetes mellitus with other specified complication, with long-term current use of insulin ([facility] V24, [facility] V28) Take 1 tablet (500 mg total) by mouth 1 (one) time each day. Take 1 Tablet by mouth daily 90 tablet 1 025 2024 Discontinued metoclopramide (REGLAN) 10 mg tablet Take 1 tablet (10 mg total) by mouth 4 (four) times a day. Take 1 Tablet by mouth 4 times daily. 120 tablet 025 2024 Discontinued Lantus Solostar U-100 Insulin 100 unit/mL (3 mL) injection pen INJECT 30 UNITS SUBCUTANEOUSLY EVERY DAY 15 mL 025 2024 Discontinued Active Problems Problem Noted Date Diagnosed Date Abnormal CT of the abdomen 08/19/2024 Bipolar disorder ([facility] V24, [facility] V28) 04/2024 Overview (08/19/2024): Joan psych [...] Type 2 diabetes mellitus wit h cataract ([facility], [facility] V28) 05/04/2020 Obesity (BMI 30.0-34.9) 02/10/2018 Stage 1 mild COPD by GOLD cl assification ([facility] V24, [facility] V28) 02/10/2018 Overview (08/19/2024): Last Assessment & Plan: Mild COPD. Continue with Trelegy 1 puff once a day. Migraine 01/16/2017 Palpitations 07/08/2016 CHF (congestive heart failure) ([facility] V24, [facility] V28) 04/22/2016 Asthma 04/05/2016 Overview (08/19/2024): Last Assessment & Plan: Continue with the use of Trelegy. The severity of asthma does not correlate with her symptoms. She is doing excellent with the Trelegy as well we will continue it. Diabetes mellitus with neuro logical manifestation ([facility] V24, [facility] V28) 12/19/2014 Pulmonary nodules/lesions, multiple 10/17/2014 Overview (08/19/2024): Last Assessment & Plan: Patient has history of calcified granulomas which has been stable for many years. Aneurysm of middle cerebral artery 07/07/2014 Overview (08/19/2024): 4mm on the R MCA bifucation. Patient was follow in [place] and no intervention was recommended Urinary incontinence 11/18/2013 Diabetic neuropathy ([facility] V[facility], [facility] V28) 0 02/03/2013 Overview (08/19/2024): Noted on [...] Encounters Date Type Department Care Team Description 06/14/2025 9:45 AM EDT Office Visit Pulmonolgy [facility] [address] [facility] [address] [place] [phone] Cami Dupont NP Moderate persistent asthma without complication (Primary Dx); JOSÉ (obstructive sleep apnea); Stage 1 mild COPD by GOLD classification ([facility] V24, [facility] V28) 06/09/2025 Telephone Adult Medicine [address] [phone] Antonio Elias LPN 06/08/2025 11:15 AM EDT Office Visit Adult [address] [phone] Eddie Stapleton MD Cellulitis of other specified site (Primary Dx); Folliculitis; Type 2 diabetes mellitus with hyperglycemia, with long-term current use of insulin ([facility] V24, [facility] V28) 06/06/2025 Telephone Adult Medicine [address] [phone] Antonio Elias LPN 05/24/2025 10:45 AM EDT Office Visit [facility] [address] [facility] [address] [place] [phone] Linus Luna DPM Primary osteoarthritis of both feet (Primary Dx); Diabetic mononeuropathy simplex ([facility] V24, [facility] V28); Tinea pedis of both feet; Corns and callosities; Type II diabetes mellitus with peripheral circulatory disorder ([facility] V24, [facility] V28); Metatarsalgia of both feet; Pain in toe of right foot; Dermatophytosis of nail; Pain in toe of left foot 04/29/2025 9:30 AM EDT Ancillary Procedure [facility] [address] [facility] [address] [place] [phone] 04/25/2025 1:45 PM EDT Office Visit [place] [address] [phone] Michele May MD Numbness and tingling in left hand (Primary Dx); Right shoulder pain; Right elbow pain; Right tennis elbow; Right rotator cuff tendinitis 04/06/2025 10:00 AM EDT Ancillary Procedure [address] [phone] Moderate persistent asthma without complication 04/01/2025 Telephone Adult [address] [phone] Kari Avery LPN 03/29/2025 10:15 AM EDT Office Visit [place] [address] [phone] Linus Luna DPM Primary osteoarthritis of both feet (Primary Dx); Metatarsalgia of both feet; Pain in toe of right foot; Dermatophytosis of nail; Pain in toe of left foot; Type II diabetes mellitus with peripheral circulatory disorder (CMS/HCC V24, CMS/HCC V28); Diabetic mononeuropathy simplex (CMS/HCC V24, CMS/HCC V28); Tinea pedis of both feet; Corns and callosities; Follow-up exam 03/24/[address] [phone] Tanika Jack [place] 03/16/2025 10:30 AM EDT Office Visit [address] [phone] Ashwin Arozla MD Severe persistent asthma, unspecified whether complicated (CMS/HCC V28) (Primary Dx); Dyspnea, unspecified type; Chest pain, unspecified type 03/15/2025 Telephone [facility] [address] [facility] [address] [place] [phone] Laura Salas PA from Last 3 Months Immunizations Name Administration [...] 12/10/2021,10/10/2021 Surgical History Surgery Date Site/Laterality Comments HYSTERECTOMY 2005 PROCEDURE: HISTORICAL HYSTERECTOMY; COMMENT: vaginal, ovaries in place CHOLECYSTECTOMY PROCEDURE: HISTORICAL CHOLECYSTECTOMY COLONOSCOPY 05/19/2017 PROCEDURE: HISTORICAL COLONOSCOPY; COMMENT: diverticulosis, int hemorrhoids; repeat in 5 yrs under propofol UPPER GASTROINTESTINAL ENDOSCOPY 10/29/2016 PROCEDURE: [place] UPPER GI ENDOSCOPY PERFORMED; COMMENT: gastritis; biopsies not taken COLONOSCOPY 03/31/2012 PROCEDURE: HISTORICAL COLONOSCOPY; COMMENT: [facility]; Four adenomas UPPER GASTROINTESTINAL ENDOSCOPY 09/02/2019 PROCEDURE: UPPER GI ENDOSCOPY/EXAM; COMMENT: gastritis, biopsy pending CATARACT EXTRACTION Right PROCEDURE: HISTORICAL CATARACT REMOVAL Medical History Medical History Date Comments Asthma DX:Asthma Seronegative rheumatoid arth ritis ([facility] V24, [facility] V28) DX:Seronegative rheumatoid arthritis (HCC) Lumbar spondylosis DX:Lumbar spo ndylosis; COMMENT: L3-S1 CTS (carpal tunnel syndrome) DX: CTS (carpal tunnel syndrome); COMMENT: s/p bilat surgery Plantar fasciitis DX:Plantar fas ciitis; COMMENT: Left Medial epicondylitis DX:Medial e picondylitis Pulmonary nodules DX:Pulmonary n odules; COMMENT: calcified Diabetes mellitus ([facility] V 24, [facility] V28) DX:Diabetes mellitus ([facility]) Bipolar disorder ([facility] V2 4, [facility] V28) DX:Bipolar disorder ([facility]) HTN (hypertension) DX:HTN (hyper tension) Bronchitis, not specified as acute or chronic DX:Bronchitis, not specified as acute or chronic Diabetes mellitus with neuro logical manifestation ([facility], [facility] V28) 12/19/2014 DX:Diabetes mellitus with neurological manifestation ([facility]) Hemiparesis affecting left s anthony as late effect of stroke ([facility] V[facility], [facility] V28) 05/15/2016 DX:Hemiparesis affecting lef t side as late effect of stroke ([facility]) Gastritis 11/22/2016 DX:Gastritis Migraine 01/16/2017 DX:Migraine Migraine without status migr ainosus, not intractable 01/16/2017 DX:Migraine without status migrainosus, not intractable 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 ([facility], [facility] V[facility]) 02/20/2017 DX:DM type 2 causin g neurological disease ([facility]) Helicobacter pylori infection DX :Helicobacter pylori [...] Mass Index 28.66 06/14/2025 9:57 AM EDT Plan of Treatment Upcoming Encounters Date Type Department Care Team (Late st Contact Info) Description 06/20/2025 11:15 AM EDT Office Visit [facility] [address] [place] [phone] Michele May MD [address] [place] [phone] 06/28/2025 11:00 AM EDT Office Visit Adult Medicine [address] [phone] Jenna Escobar NP [address] [place] [address] 07/26/2025 10:30 AM EDT Office Visit [facility] [address] [facility] [address] [place] [phone] Linus Luna DPM 175 [facility] 250 [place] [phone] 08/11/2025 10:35 AM EDT Office Visit [facility]gy [facility] [address] [place] [phone] Cami Dupont, [place] [address] [place] [phone] 08/15/2025 10:40 AM EST Office Visit [facility] 102 300 [facility] [address] [place] [phone] Hermelinda Marmolejo NP [address] [place] [address] [place] [phone] Health Maintenance Due Date Last Done Comments Diabetes: Annual Retina Eye Exam 1965 RSV Immunization Adult Patients (1 - Risk 60-74 years 1-dose series) 2014 Falls Risk Assessment 09/21/2022 Social Influencers of Health Screening 09/21/2022 Depression Screening 10/13/2024 08/11/2024 Diabetes: Annual Foot Exam 01/07/2025 01/08/2024 COVID-19 Vaccine ( season) 2025 11/07/2021, 01/17/2021 Influenza Vaccine (#1) 2025 , 08/02/2022, 11/07/2021, Additional history exists Diabetes: Blood Sugar Control Test (HGBA1C) 07/29/2025 01/27/2025, 09/23/2024, 03/29/2024, Additional history exists Diabetes: Annual Urine Albumin-Creatinine Ratio (uACR) 09/23/2025 09/23/2024, 12/13/2022 Colorectal Cancer Screening: Colonoscopy 12/21/2025 12/21/2020, 05/19/2017 Diabetes: Annual GFR (Glomerular Filtration Rate) 03/04/2026 03/04/2025, 01/27/2025, 12/20/2024, Additional history exists Hypertension/CHF/CAD Annual BMP Blood Test 03/04/2026 03/04/2025, 01/27/2025, 12/20/2024, Additional history exists Breast Cancer Screening 03/29/2026 03/29/20, 03/29/2024, 03/12/2023, Additional history exists Cholesterol Screening (Lipid Panel) 09/23/2029 09/23/2024, 11/07/2023 DTaP,Tdap,and Td Vaccines (5 - Td or Tdap) 07/13/2030 07/13/2020, 07/13/2020, 04/22/2009, Additional history exists Osteoporosis Screening (Bone Density Screening) 07/09/2031 07/09/2021 Hepatitis C Screening Completed 05/04/2014 Zoster Vaccines Completed 12/10/2021, 10/10/2021 Medicare Annual Wellness Visit Discontinued 06/11/2023 Pneumococcal Vaccine: 50+ Years Completed 08/21/2023, 03/24/2016, 09/30/2013, Additional history exists HIB Vaccines Aged Out [...] Procedure Name Priority Date/Time Associated Diagnosis Comments NM LEXISCAN STRESS TEST W/ MYOCARDIAL PERFUSION Routine 04/29/2025 12:07 PM EDT Chest pain, unspecified type Elevated troponin XR ELBOW 3+ VIEWS RIGHT Routine 04/25/2025 2:35 PM EDT Right elbow pain XR SHOULDER 2+ VIEWS RIGHT Routine 04/25/2025 2:35 PM EDT Right shoulder pain MI ARTHROCENTESIS/ASPIR ATION/INJECTION INTERMEDIATE JOINT/BURSA WO U/S GUID Routine 04/25/2025 1:45 PM EDT Right tennis elbow MI ARTHROCENTESIS/ASPIR ATION/INJECTION MAJOR JOINT/BURSA W/O U/S GUIDANCE Routine 04/25/2025 1:45 PM EDT Right shoulder pain Right rotator cuff tendinitis PULMONARY FUNCTION TESTING Routine 04/06/2025 11:46 AM EDT Moderate persistent asthma without complication XR FOOT 3+ VIEWS BILAT Routine 03/29/2025 11:00 AM EDT Follow-up exam BASIC METABOLIC PANEL Routine 03/04/2025 11:53 AM EDT Moderate persistent asthma without complication Dyspnea on exertion HEMOGLOBIN A1C Routine 01/27/2025 11:14 AM EDT Uncontrolled type 2 diabetes mellitus with hyperglycemia (CMS/HCC V24, CMS/HCC V28) MICROALBUMIN CREATININE URINE RATIO Routine 09/23/2024 2:36 [...] Recently Relevant to Health Maintenance Results * NM LEXISCAN STRESS TEST W/ MYOCARDIAL PERFUSION (04/29/2025 12:07 PM EDT) Exercise/inject ion duration (min) 0 CV PACS STRESS Exercise/inject ion duration (sec) 34 CV PACS STRESS Peak SBP 130 mmHg CV PACS STRESS Peak DBP 53 mmHg CV PACS STRESS Peak HR 96 bpm CV PACS STRESS Baseline HR 84 bpm CV PACS STRESS Baseline SBP 132 mmHg CV PACS STRESS Baseline DBP 61 mmHg CV PACS STRESS Estimated workload 1.0 METS CV PACS STRESS Percent HR 64 % CV PACS STRESS Rate Pressure Product 12,480.0 mmHg*bpm CV PACS STRESS Target HR 128 bpm CV PACS STRESS O2 sat rest 92 % CV PACS STRESS Max HR Percent 64 % CV PA CS STRESS ST Depression (mm) 0 mm CV PACS STRESS TID 1.17 CV PACS STRESS Nuc Stress EF 65 % CV PAC S STRESS Nuc Rest EF 66 % CV PACS STRESS BSA 1.83 m2 CV PACS STRESS Anatomical Region Laterality Modality Nuclear Medicine 04/29/2025 10:4 7 AM EDT 04/29/2025 11:17 AM EDT Narrative 05/12/2025 5:29 PM EDT Vasodilator (regadenoson) stress test was performed . Normal blood pressure response. LV perfusion is normal.. There is evidence of breast attenuation that was corrected with attenuation correction. No evidence of infarct or ischemia on attenuation corrected images Normal left ventricular function post-stress. Stress ejection fraction is 65%. Stress: The patient reached the end of the protocol. Blood pressure demonstrated a normal response. Heart rate demonstrated a normal response. The patient reported nausea during the stress test which resolved in recovery. Stress Findings A pharmacological stress test was performed using regadenoson, 0.4 mg IV over 10-15 seconds, followed by radiopharmacological injection 10 seconds post infusion. Total stress time was 0 min and 34 sec. The patient reached the end of the protocol. Blood pressure demonstrated a normal response. Heart rate demonstrated a normal response. The patient reported nausea during the stress test which resolved in recovery. ECG 69 yo female with a history of CHF, HLD, , HTN, DM and JOSÉ referred for CP and OLIVA. The ECG shows normal sinus rhythm. The ECG axis is normal. There were no arrhythmias during stress. There is no ST segment changes during stress. There were no arrhythmias during recovery. Nuclear Study Quality Study technique: MPI, SPECT, multi, rest and stress, 1 day and gated. Overall image quality is good. CT attenuation correction was utilized. No radiopharmaceutical dose was extravasated. Perfusion Defect Conclusion There is no evidence of transient ischemic dilation (TID). Stress Function Comments Left ventricular systolic function post-stress is normal. Stress ejection fraction is 65%. Rest Function Comments Resting ejection fraction was 66%. CT Findings Moderate calcification of the coronary arteries Perfusion Comments LV perfusion is normal. There is no evidence of inducible ischemia. Ashwin Arzola MD CV STRESS PROCEDURES Final Resu lt * XR Elbow 3+ Views Right (04/25/2025 2:35 PM EDT) Anatomical Region Laterality Modality Upper Extremities, Elbow Right Compute d Radiography Narrative 04/25/2025 3:05 PM EDT X-rays of the right elbow show no acute fracture or dislocation. Mild degenerative changes with spurring of the coronoid, obliquity in the lateral limits full assessment of the ulnohumeral joint. Soft tissue shadows appear normal. No significant change from radiographs obtained 01/27/2025 Impression: No acute osseous abnormality of the right elbow. Michele May MD IMG XR PROCEDURES Edited Result - Final * XR Shoulder 2+ Views Right (04/25/2025 2:35 PM EDT) Anatomical Region Laterality Modality Upper Extremities, Shoulder Right Comp uted Radiography Narrative 04/25/2025 3:05 PM EDT 4 view x-rays of the right shoulder shows no evidence of fracture or dislocation. Tjhere is mild glenohumeral arthritis with subchondral sclerosis, there is osteopenia of proximal humerus , no acute fractures or dislocations. There are degenerative changes of the acromioclavicular joint. Soft tissue shadows appear normal. Impression: Degenerative changes at the glenohumeral and acromioclavicular joint. us Michele May MD IMG XR PROCEDURES Final Result * MI ARTHROCENTESIS/ASPIRATION/INJECTION INTERMEDIATE JOINT/BURSA WO U/S GUID (04/25/2025 1:45 PM EDT) Michele Davison MD - 04/25/2025 1:45 PM EDT Michele May MD 04/25/2025 9:45 PM M Inj/Asp: R elbow Indications: pain Details: 21 G needle, lateral approach Medications: 40 mg triamcinolone acetonide 40 mg/mL Outcome: tolerated well, no immediate complications Site was prepped in standard fashion using alcohol swab, sterile technique was used to perform the injection to the left lateral condyle. The patient tolerated the procedure well and a band-aid dressing was applied Informed Consent: Site: Lateral condyle Laterality: Right Relevant images/test results available and reviewed: yes Health status cleared: Yes Procedure/treatment, purpose, treatment alternatives, risks/potential complications and benefits explained: yes Risk/complications/benefits details: Risk/complications/benefits details: Risks and benefits of corticosteroid injection were discussed, including risk of pain, bleeding, infection, tissue attenuation, tendon rupture, changes in skin color, and injury to surrounding structures such as arteries, veins and nerves. We also discussed the patient may develop worsening pain for a few days before having improvement in their symptoms. Patient questions answered: yes Patient agrees, verbalizes understanding, and wants to proceed: yes Consent given by: Patient Informed consent discussion completed by Physician/YONIS with patient: Verbal Pre-procedure timeout performed: yes us Michele May MD IN CLINIC/BEDSIDE ORDERABLES Fin al Result * MI ARTHROCENTESIS/ASPIRATION/INJECTION MAJOR JOINT/BURSA W/O U/S GUIDANCE (04/25/2025 1:45 PM EDT) Michele Davison MD - 04/25/2025 1:45 PM EDT Michele May MD 04/25/2025 9:45 PM L Inj/Asp: R subacromial bursa Indications: pain Details: 22 G needle, posterior approach Medications: 40 mg triamcinolone acetonide 40 mg/mL Outcome: tolerated well, no immediate complications Site was prepped in standard fashion using alcohol swab, sterile technique was used to perform the injection, the patient tolerated the procedure well and a band-aid dressing was applied Informed Consent: Site: Subacromial Laterality: Right Relevant images/test results available and reviewed: yes Health status cleared: Yes Procedure/treatment, purpose, treatment alternatives, risks/potential complications and benefits explained: yes Risk/complications/benefits details: Risk/complications/benefits details: Risks and benefits of corticosteroid injection were discussed, including risk of pain, bleeding, infection, tissue attenuation, tendon rupture, changes in skin color, and injury to surrounding structures such as arteries, veins and nerves. We also discussed the patient may develop worsening pain for a few days before having improvement in their symptoms. Patient questions answered: yes Patient agrees, verbalizes understanding, and wants to proceed: yes Consent given by: Patient Informed consent discussion completed by Physician/YONIS with patient: Verbal Pre-procedure timeout performed: yes us Michele May MD IN CLINIC/BEDSIDE ORDERABLES Fin al Result * Pulmonary function testing: Carbon Monoxide Diffusing Capacity, Spirometry with Bronchodilator, Flow Volume Loop, Maximum Voluntary Ventilation, Spirometry, Vital Capacity Test (04/06/2025 11:46 AM EDT) Impressions La Trevino MD - 04/06/2025 11:46 AM EDT DATE OF SERVICE: 04/05/25 SPIROMETRY: FEV1 is 75 % predicted and an FVC is 68 % predicted. The FEV1/FVC ratio is 108% of normal, no response to bronchodilators noted. LUNG VOLUMES: Total lung capacity (TLC): 88% predicted. Residual volume (RV): 109% predicted RV/TLC ratio is 123% of normal DIFFUSION CAPACITY: DLCO 72% predicted. DlCO/VA 80% of predicted COMPARISONS: INTERPRETATION: This pulmonary function test shows overall decline in the FEV1, FVC with normal FEV1/FVC ratio. There is also mild diffusion impairment. La Trevino MD 6 mwComments: Patient walked six minutes walker assist covering (59m/194ft) without Leg Fatigue, Mild to Moderate SOB was noted. Lowest oxygen saturation was 93%. Patient returned to PFT lab for Rest & Recovery. After 1 minute RA SpO2 = 95% HR = 90; After 2 min RA SpO2 = 98% HR = 86. No indication for supplemental Oxygen for today's Activity. Cami Dupont PROFESSOR OF GEOLOGY PFT ORDERABLES Final R esult * XR Foot 3+ Views bilat (03/29/2025 11:00 AM EDT) Anatomical Region Laterality Modality Lower Extremities, Foot Bilateral Computed Radiography Narrative 03/29/2025 11:49 AM EDT Right foot 3 views No fracture. No radiopaque foreign joint spaces Arthritis mild moderate Mild bunion hammertoes 2 through 5 Foot position Pes planus with Talus navicular uncovering decreased calcaneal inclination anterior displaced symes line talus navicular joint to calcaneal cuboid joint Left foot 3 views No fracture. No radiopaque foreign joint spaces Arthritis mild moderate Mild bunion hammertoes 2 through 5 Foot position Pes planus with Talus navicular uncovering decreased calcaneal inclination anterior displaced symes line talus navicular joint to calcaneal cuboid joint Linus Luna DPM IMG XR PROCEDURES Final R esult * (ABNORMAL) Basic metabolic panel (03/04/2025 11:53 AM EDT) Sodium 141 133 - 145 mmol/L LAB CHEMISTRY METHOD 03/04/2025 4:16 PM EDT [facility] Potassium 3.9 3.5 - 5.5 mmol/L LAB CHEMISTRY METHOD 03/04/2025 4:16 PM EDT [facility] Chloride 103 96 - 110 mmol/L LAB CHEMISTRY METHOD 03/04/2025 4:16 PM EDT [facility] CO2 31 21 - 32 mmol/L LAB CHEMISTRY METHOD 03/04/2025 4:16 PM EDT [facility] Anion Gap 7 3 - 11 LAB CHEMISTRY METHOD 03/04/2025 4:16 PM EDT [facility] Glucose 164(H) 70 - 100 mg/dL LAB CHEMISTRY METHOD 03/04/2025 4:16 PM [facility] BUN 19 5 - 25 mg/dL LAB CHEMISTRY METHOD 03/04/2025 4:16 PM EDT [facility] Creatinine 0.76 0.50 - 1.10 mg/dL LAB CHEMISTRY METHOD 03/04/2025 4:16 PM EDT [facility] eGFR 84 >=60 mL/min/1. 73m2 LAB CHEMISTRY METHOD 03/04/2025 4:16 PM T [facility] Comment:Calculation based on the Chronic Kidney Disease Epidemiology Collaboration (CKD-EPI) equation refit without adjustment for race. BUN/Creatinine Ratio 25.0 [facility] Calcium 9.4 8.5 - 10.5 mg/dL LAB CHEMISTRY METHOD 03/04/2025 4:16 PM [facility] Blood Venous blood specimen / Unknown Venipuncture / Unknown 03/04/2025 11:53 AM EDT 03/04/2025 11:53 AM EDT us Cami Dupont PROFESSOR OF GEOLOGY LAB BLOOD ORDERABLES Fi nal Result [facility] [address] [place] [address], * (ABNORMAL) Hemoglobin A1c (01/27/2025 11:14 AM EDT) Hemoglobin A1C 7.7(H) <6.5 % LAB CHEMISTRY METHOD 01/27/2025 2:02 PM EDT [facility] Mean Bld Glu Estim. 174 mg/dL LAB CHEMISTRY METHOD 01/27/2025 2:02 PM EDT [facility] Blood Venous blood specimen / Unknown Venipuncture / Unknown 01/27/2025 11:14 AM EDT 01/27/2025 11:14 AM EDT us Ashwin Arzola MD LAB BLOOD ORDERABLES Final Resu lt [facility] [address] [place] [address], [place] [phone] * (ABNORMAL) Lipid panel with reflex to direct LDL (09/23/2024 2:36 PM EST) Cholesterol 155 0 - 200 mg/dL LAB CHEMISTRY METHOD 09/23/2024 5:43 PM EST [facility] Triglycerides 153(H) 0 - 150 mg/dL LAB CHEMISTRY METHOD 09/23/2024 5:43 PM EST [facility] HDL 72 >=40 mg/dL LAB CHEMISTRY METHOD 09/23/2024 5:43 PM EST [facility] LDL Calculated 52 0 - 100 mg/dL LAB CHEMISTRY METHOD 09/23/2024 5:43 PM EST [facility] VLDL Cholesterol Jacoby 30.6 mg/dL LAB CHEMISTRY METHOD 09/23/2024 5:43 PM EST [facility] Non HDL Chol. (LDL+VLDL) 83 <145 mg/dL LAB CHEMISTRY METHOD 09/23/2024 5:43 PM EST [facility] Chol/HDL Ratio 2.2 0.0 - 4.4 LAB CHEMISTRY METHOD 09/23/2024 5:43 PM EST [facility] Blood Venous blood specimen / Unknown Venipuncture / Unknown 09/23/2024 2:36 PM EST 09/23/2024 2:36 PM EST us Ashwin Arzola MD LAB BLOOD ORDERABLES Final Resu lt [facility] [address] [place] [address], [place] [phone] * (ABNORMAL) Microalbumin creatinine urine ratio (09/23/2024 2:36 PM EST) Creatinine, Urine 327.0 mg/dL LAB CHEMISTRY METHOD 09/23/2024 6:24 PM EST [facility] Microalb, Ur 131.0(H) 0.0 - 29.0 mg/L LAB CHEMISTRY METHOD 09/23/2024 6:24 PM EST [facility] Microalb/Crea t Ratio 40(H) <30 mg/g creat LAB CHEMISTRY METHOD 09/23/2024 6:24 PM EST [facility] Urine Urine specimen obtained by clean catch procedure / Unknown Non-blood Collection / Unknown 09/23/2024 2:36 PM EST 09/23/2024 2:36 PM EST Ashwin Arzola MD LAB URINE ORDERABLES Final Resu lt [facility] [address] [place] [address], [place] [phone] * Depression Screening (08/11/2024) Pathologist [facility] Depression Screening abstracted Yaneth Strong MD HEALTH [...] are composed of fatty and fibroglandular tissue. No suspicious mass, architectural distortion or suspicious calcifications [...] 7:43 PM EDT BONE DENSITY SCAN (DEXA) FINDINGS: Lumbar Spine T-score is 0.6. (SD relative to 20-29 y/o adult) Z-score is 2.6. (SD relative to age matched peers) This is considered normal by WHO criteria. Left Hip T-score is -0.8. Z-score is 0.5. This is considered normal by WHO criteria. Comparison: None. IMPRESSION: IMPRESSION: Normal bone mineral density by WHO criteria. The [facility] recommends using National [...] bone mineral density by WHO criteria. The [facility] recommendsusing National Osteoporosis [...] DXA PROCEDURES Final Result * Colonoscopy (05/19/2017) [facility] Colonoscopy abstracted, no interpretation Anatomical Region Laterality Modality Other Historical Provider HEALTH MAINTENANCE Final Result * Hepatitis C Screening (05/04/2014) [facility] Hepatitis C Screening abstracted Historical Provider HEALTH MAINTENANCE Final Result from Last 3 Months or Most Recently Relevant to Health Maintenance Insurance [facility] Member Subscriber Plan / Payer (Ef fective 2024-Present) Name:MELYSSA KEATING Relation to Subscriber:Self Name:Melyssa Keating Payer ID:[id number] Group ID:[id number] Type:Not on file Address: [place] [address] [address] [address] Care Teams Blast Furnace Supervisor Relationship Specialty Start Date End Date Ashwin Arzola MD [address] [place] [phone] PCP - General Internal Medicine 08/01/20
--- OUTSIDE RECORDS SUMMARY | 2025-06-14 13:17 | XMS_ITS | Encounter Summary ---
Author Organization [facility] Address [address] [place] [address] Care Team Providers Care Appellate Law Clerk Name Role Phone Ashwin Arzola MD Primary Care Provider [phone] Encounter Details Date Type Department Care Team (Late Contact Info) Description 01/19/2025 Billing Patient Not Present Adult Medicine [address] [phone] Ashwin Arzola MD [address] [place] [address] Social History Tobacco Use Types Packs/Day Years [...] AM EDT Office Visit Orthopedic Surgery - [place] [address] [place] [phone] Michele May MD [address] [place] [phone] 06/28/2025 11:00 AM EDT Office Visit Adult Medicine [facility] [address] [place], [place] [phone] Jenna Escobar, PRODUCT SALES REPRESENTATIVE [address] [place], [place] 07/26/2025 10:30 AM EDT Office Visit Orthopedic Surgery - [place] [address] [facility] [address] [place] [phone] Linus Luna, DPM [address] [facility] [address] [place] [phone] 08/11/2025 10:35 AM EDT Office Visit Pulmonolgy - [place] [address] [facility] [address] [place] [phone] Cami Dupont NP [address] [place] [phone] 08/15/2025 10:40 AM EST Office Visit [facility] [address] [facility] [address] [place] [phone] Hermelinda Marmolejo, [place] [address] [place] [address] [place] [phone] documented as of this encounter Visit Diagnoses Not on filedocumented in this encounter Care Teams Appellate Law Clerk Relationship Specialty Start Date End Date Ashwin Arzola MD [address] [place], [place] PCP - General Internal Medicine 08/01/20 documented as of this encounter
--- OUTSIDE RECORDS SUMMARY | 2025-06-14 13:17 | XMS_ITS | Clinical Summary ---
Author Organization [facility] Address [address] [facility] [address] [place] [phone] Phone Care Team Providers Care Disability Specialist Name Role Phone Unavailable Primary Care Provider Unavailabl e Social History Tobacco Use Types Packs/Day Years Used Date Smoking Tobacco: Never Assessed Education Answer Date Recorded Are you interested in more education? Not on guido e 04/13/2024 Are you concerned about learning? Not on file 04/13/2024 No 04/13/2024 No 04/13/2024 Digital Access Answer Date Recorded No 04/13/2024 No 04/13/2024 Reliable internet access at home? Not on file 04/13/2024 Device with a working camera? Not on file Comments Unknown Sex and Gender Information Value Date Recorded Sex Assigned at Not on file Legal Sex Female 4:53 PM EDT Gender Identity Not on file Sexual Orientation Not on file Plan of Treatment Not on file Medical Devices Not on file Insurance [facility] MEDICARE REPLACEMENT [facility] MEDICARE REPLACEMENT MEDICARE REPLACEMENT [facility] MEDICARE REPLACEMENT [facility] MEDICARE REPLACEMENT [facility] MEDICARE REPLACEMENT Additional Source Comments The information contained in this document represents components of the legal health record. It is not the complete legal health record.[facility]
== END 2025-06-14 12:37 | disposition home or self-care (01) ==
LOC: HO.HSM 11:44
PROVIDERS: PCP Internal Medicine; Visit Provider Registered Nurse
DX: G44.209 Tension-type headache, unspecified, not intractable (principal); I67.1 Cerebral aneurysm, nonruptured
CPT/HCPCS: 99214

== ENCOUNTER 2025-06-15 09:33 | Outpatient (REF) | payer OTHER, SELFPAY ==
--- OUTSIDE RECORDS SUMMARY | 2025-06-14 09:45 | XMS_ITS | Encounter Summary ---
Author Organization [employer] Address [address] [place] [address] Care Team Providers Care Security Incident Response Engineer Name Role Phone Ashwin Arzola MD Primary Care Provider [phone] Reason for Visit * Reason Comments Sleep Apnea No compliance use Asthma Encounter Details Date Type Department Care Team (Latest Contact Info) Description 06/14/2025 9:45 AM EDT Office Visit Pulmonolgy - [place] 175 [facility] [address] [place] [address] Cami Dupont, [place] 230 [place] [address] Moderate persistent asthma without complication (Primary Dx); [...] 11:15 AM EDT Office Visit Orthopedic Surgery [place] [address] [phone] Michele May MD 175 [place] [address] 06/28/2025 11:00 AM EDT Office Visit Adult Medicine [facility] [address] [place] [phone] Jenna Escobar NP 444 [place] [address] 07/26/2025 10:30 AM EDT Office Visit Orthopedic Surgery [place] [address] [phone] Linus Luna DPM [address] [phone] 08/11/2025 10:35 AM EDT Office Visit Pulmonolgy [facility] [address] [phone] Cami Dupont NP [address] [place] [address] [place] [address] 08/15/2025 10:40 AM EST Office Visit [facility] - [address] 300 [facility] [address] [place] [phone] Hermelinda Marmolejo NP 300 [facility] [address] [place] [address] documented as of this encounter Visit Diagnoses Diagnosis Moderate persistent asthma without complication- Primary JOSÉ (obstructive sleep apnea) Obstructive sleep apnea (adult) (pediatric) Stage 1 mild COPD by GOLD classification (CMS/HCC V24, CMS/HCC V28) documented in this encounter Care Teams Security Incident Response Engineer Relationship Specialty Start Date End Date Ashwin Arzola MD 4 [place] [address] PCP - General Internal Medicine 08/01/20 documented as of this encounter
--- NOTE | ~2025-06-15 | FL_ITS ---
EXAMINATION: XR BARIUM SWALLOW CLINICAL INFORMATION: Dysphagia COMPARISON: None available. TECHNIQUE: Routine barium swallow upright was performed following oral administration of thick barium and barium coated saltine crackers. Thin barium was administered orally in prone lying position. FINDINGS: Lateral administration of thick barium in upright view there is normal propagation bolus from the oral cavity through the pharynx, esophagus into stomach without obstruction, narrowing or stricture. There is mild retention of barium in the piriform sinuses and valleculae but no laryngeal penetration or aspiration seen. On oral administration of saltine crackers with thick barium there is normal oral mastication and propagation of bolus from the oral cavity through the pharynx, esophagus into stomach. There is moderate ventral osteophytosis at C5-6 and C6 -C7 disc level indenting the ventral thecal sac. It is the same area where patient points to difficulty swallowing solid foods. On oral administration of thin barium in prone lying position there is normal propagation bolus through the pharynx and esophagus with good distention of the entire esophagus. No intraluminal filling defect or extrinsic compression seen. Incidental finding of a small sliding hiatal hernia without reflux. FLUOROSCOPY TIME: 2 minutes and 25 seconds DOSE AREA PRODUCT: 2615 uGy-m2 (microgray-meter squared) FL/FL barium swallow IMPRESSION: Moderate ventral osteophytosis C5-6 and C6-C7 disc levels indenting the posterior esophageal wall what patient feels when swallowing solids and liquids. No obstructive lesion or constriction seen. Electronically signed by: Frantz Pratt MD 06/15/2025 03:12 PM EDT
--- OUTSIDE RECORDS SUMMARY | 2025-06-15 10:26 | XMS_ITS | Clinical Summary ---
Author Organization [facility] [address] Address [address] [place] [address] Phone Care Team Providers Care Staff Nurse Name Role Phone Ashwin Arzola MD Primary Care Provider [phone] Allergies Active Allergy Reactions Criticality Noted Date [...] Active blood-glucose meter,continuou s (FreeStyle Cade 3 [place]) miscIndications :Type 2 diabetes mellitus with other specified complication, with long-term current use of insulin ([facility] V24, [facility] V28) To check sugars 1 each [...] complication, with long-term current use of insulin ([facility] V24, [facility] V28) Box = Kit = EA, [...] unspecified type,Severe persistent asthma, unspecified whether complicated (CMS/[facility] V28) Take 3 mL (2.5 mg [...] complication, with long-term current use of insulin ([facility] V24, [facility] V28) Take 1 tablet (500 mg [...] complication, with long-term current use of insulin ([facility] V24, [facility] V28) Take 1 tablet (500 mg [...] CT of the abdomen 08/19/2024 Bipolar disorder ([facility] V24, [facility] V28) 04/2024 Overview (08/19/2024): Joan psych [...] Type 2 diabetes mellitus wit h cataract ([facility] V24, [facility] V28) 05/04/2020 Obesity (BMI 30.0-34.9) 02/10/2018 Stage 1 mild COPD by GOLD cl assification ([facility] V24, [facility] V28) 02/10/2018 Overview (08/19/2024): Last Assessment & Plan: Mild COPD. Continue with Trelegy 1 puff once a day. Migraine 01/16/2017 Palpitations 07/08/2016 CHF (congestive heart failure) ([facility] V24, [facility] V28) 04/22/2016 Asthma 04/05/2016 Overview (08/19/2024): Last Assessment & Plan: Continue with the use of Trelegy. The severity of asthma does not correlate with her symptoms. She is doing excellent with the Trelegy as well we will continue it. Diabetes mellitus with neuro logical manifestation ([facility] V24, [facility] V28) 12/19/2014 Pulmonary nodules/lesions, multiple 10/17/2014 Overview (08/19/2024): Last Assessment & Plan: Patient has history of calcified granulomas which has been stable for many years. Aneurysm of middle cerebral artery 07/07/2014 Overview (08/19/2024): 4mm on the R MCA bifucation. Patient was follow in [place] and no intervention was recommended Urinary incontinence 11/18/2013 Diabetic neuropathy ([facility] V24, [facility] V28) 0 02/03/2013 Overview (08/19/2024): Noted on [...] 06/14/2025 9:45 AM EDT Office Visit Pulmonolgy [facility] 175 [facility] [address] [place] [phone] Cami Dupont NP Moderate persistent asthma without complication (Primary Dx); JOSÉ (obstructive sleep apnea); Stage 1 mild COPD by GOLD classification ([facility] V24, [facility] V28) 06/09/2025 Telephone Adult Medicine [address] [phone] Antonio Elias LPN 06/08/2025 11:15 AM EDT Office Visit Adult [address] [phone] Eddie Stapleton MD Cellulitis of other specified site (Primary Dx); Folliculitis; Type 2 diabetes mellitus with hyperglycemia, with long-term current use of insulin ([facility] V24, [facility] V28) 06/06/2025 Telephone Adult Medicine [address] [phone] Antonio Elias LPN 05/24/2025 10:45 AM EDT Office Visit Orthopedic Surgery - [place] 250 175 [facility] 250 [place] [phone] Linus Luna DPM Primary osteoarthritis of both feet (Primary Dx); Diabetic mononeuropathy simplex ([facility] V24, [facility] V28); Tinea pedis of both feet; Corns and callosities; Type II diabetes mellitus with peripheral circulatory disorder ([facility] V24, [facility] V28); Metatarsalgia of both feet; Pain in toe of right foot; Dermatophytosis of nail; Pain in toe of left foot 04/29/2025 9:30 AM EDT Ancillary Procedure [facility] 101 300 [facility] 101 [place] [phone] 04/25/2025 1:45 PM EDT Office Visit [place] [address] [phone] Michele May MD Numbness and tingling in left hand (Primary Dx); Right shoulder pain; Right elbow pain; Right tennis elbow; Right rotator cuff tendinitis 04/06/2025 10:00 AM EDT Ancillary Procedure [address] [phone] Moderate persistent asthma without complication 04/01/2025 Telephone Adult [address] [phone] Kari Avery LPN 03/29/2025 10:15 AM EDT Office Visit [place] [address] [phone] Linus Luna DPM Primary osteoarthritis of both feet (Primary Dx); Metatarsalgia of both feet; Pain in toe of right foot; Dermatophytosis of nail; Pain in toe of left foot; Type II diabetes mellitus with peripheral circulatory disorder (CMS/HCC V24, CMS/HCC V28); Diabetic mononeuropathy simplex (CMS/HCC V24, CMS/HCC V28); Tinea pedis of both feet; Corns and callosities; Follow-up exam 03/24/[address] [phone] Tanika Jack [place] 03/16/2025 10:30 AM EDT Office Visit [address] [phone] Ashwin Arzola MD Severe persistent asthma, unspecified whether complicated (CMS/HCC V28) (Primary Dx); Dyspnea, unspecified type; Chest pain, unspecified type 03/15/2025 Telephone [facility] 101 300 [facility] 101 [place] [phone] Laura Salas PA from Last 3 Months [...] under propofol UPPER GASTROINTESTINAL ENDOSCOPY 10/29/2016 PROCEDURE: SC UPPER GI ENDOSCOPY PERFORMED; COMMENT: gastritis; biopsies not taken COLONOSCOPY 03/31/2012 PROCEDURE: HISTORICAL COLONOSCOPY; COMMENT: [facility]; Four adenomas UPPER GASTROINTESTINAL ENDOSCOPY 09/02/2019 PROCEDURE: UPPER GI ENDOSCOPY/EXAM; COMMENT: gastritis, biopsy pending CATARACT EXTRACTION Right PROCEDURE: HISTORICAL CATARACT REMOVAL Medical History Medical History Date Comments Asthma DX:Asthma Seronegative rheumatoid arth ritis ([facility] V24, [facility] V28) DX:Seronegative rheumatoid arthritis (HCC) Lumbar spondylosis DX:Lumbar spo ndylosis; COMMENT: L3-S1 CTS (carpal tunnel syndrome) DX: CTS (carpal tunnel syndrome); COMMENT: s/p bilat surgery Plantar fasciitis DX:Plantar fas ciitis; COMMENT: Left Medial epicondylitis DX:Medial e picondylitis Pulmonary nodules DX:Pulmonary n odules; COMMENT: calcified Diabetes mellitus ([facility] V 24, [facility] V28) DX:Diabetes mellitus ([facility]) Bipolar disorder ([facility] V2 4, [facility] V28) DX:Bipolar disorder ([facility]) HTN (hypertension) DX:HTN (hyper tension) Bronchitis, not specified as acute or chronic DX:Bronchitis, not specified as acute or chronic Diabetes mellitus with neuro logical manifestation ([facility] V24, [facility] V28) 12/19/2014 DX:Diabetes mellitus with neurological manifestation ([facility]) Hemiparesis affecting left s anthony as late effect of stroke ([facility] V24, [facility] V28) 05/15/2016 DX:Hemiparesis affecting lef t side as late effect of stroke ([facility]) Gastritis 11/22/2016 DX:Gastritis Migraine 01/16/2017 DX:Migraine Migraine without status migr ainosus, not intractable 01/16/2017 DX:Migraine without status migrainosus, not intractable 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 [address] [place] [phone] Linus Luna, DPM 175 [facility] [address] [place] [address] 08/11/2025 10:35 AM EDT Office Visit Pulmonolgy [place] 175 [facility] [address] [place] [phone] Cami Dupont, GEORGES [address] [place] [address] 08/15/2025 10:40 AM EST Office Visit [facility] - [facility] [address] [facility] 102 [place] [phone] Hermelinda Marmolejo NP [address] [place] [address] Health Maintenance Due Date Last Done Comments [...] 04/25/2025 2:35 PM EDT Right shoulder pain SC ARTHROCENTESIS/ASPIR ATION/INJECTION INTERMEDIATE JOINT/BURSA WO U/S GUID Routine 04/25/2025 1:45 PM EDT Right tennis elbow SC ARTHROCENTESIS/ASPIR ATION/INJECTION MAJOR JOINT/BURSA W/O U/S GUIDANCE [...] MD IMG XR PROCEDURES Final Result * SC ARTHROCENTESIS/ASPIRATION/INJECTION INTERMEDIATE JOINT/BURSA WO U/S GUID (04/25/2025 [...] IN CLINIC/BEDSIDE ORDERABLES Fin al Result * SC ARTHROCENTESIS/ASPIRATION/INJECTION MAJOR JOINT/BURSA W/O U/S GUIDANCE (04/25/2025 [...] supplemental Oxygen for today's Activity. Cami Dupont GAS METER INSTALLER HELPER PFT ORDERABLES Final R esult * XR [...] LAB CHEMISTRY METHOD 03/04/2025 4:16 PM EDT [facility] Potassium 3.9 3.5 - 5.5 mmol/L LAB CHEMISTRY METHOD 03/04/2025 4:16 PM EDT [facility] Chloride 103 96 - 110 mmol/L LAB CHEMISTRY METHOD 03/04/2025 4:16 PM EDT [facility] CO2 31 21 - 32 mmol/L LAB CHEMISTRY METHOD 03/04/2025 4:16 PM EDT [facility] Anion Gap 7 3 - 11 LAB CHEMISTRY METHOD 03/04/2025 4:16 PM [facility] Glucose 164(H) 70 - 100 mg/dL LAB CHEMISTRY METHOD 03/04/2025 4:16 PM [facility] BUN 19 5 - 25 mg/dL LAB CHEMISTRY METHOD 03/04/2025 4:16 PM [facility] Creatinine 0.76 0.50 - 1.10 mg/dL LAB CHEMISTRY METHOD 03/04/2025 4:16 PM [facility] eGFR 84 >=60 mL/min/1. 73m2 LAB CHEMISTRY METHOD 03/04/2025 4:16 PM [facility] Comment:Calculation based on the Chronic Kidney Disease Epidemiology Collaboration (CKD-EPI) equation refit without adjustment for race. BUN/Creatinine Ratio 25.0 LAB CHEMISTRY METHOD 03/04/2025 4:16 PM [facility] Calcium 9.4 8.5 - 10.5 mg/dL LAB CHEMISTRY METHOD 03/04/2025 4:16 PM [facility] Blood Venous blood specimen / Unknown Venipuncture / Unknown 03/04/2025 11:53 AM EDT 03/04/2025 11:53 AM EDT us Cami Dupont GAS METER INSTALLER HELPER LAB BLOOD ORDERABLES Fi nal Result [facility] [address] [place] [address], * (ABNORMAL) Hemoglobin A1c (01/27/2025 11:14 AM EDT) Hemoglobin A1C 7.7(H) <6.5 % LAB CHEMISTRY METHOD 01/27/2025 2:02 PM EDT [facility] Mean Bld Glu Estim. 174 mg/dL LAB CHEMISTRY METHOD 01/27/2025 2:02 PM EDT [facility] Blood Venous blood specimen / Unknown Venipuncture / Unknown 01/27/2025 11:14 AM EDT 01/27/2025 11:14 AM EDT us Ashwin Arzola MD LAB BLOOD ORDERABLES Final Resu lt Performing Organization Address City/[facility]/ZIP Co de Phone Number [facility] [address] [place] [address], [place] [phone] * (ABNORMAL) Lipid panel with reflex to direct LDL (09/23/2024 2:36 PM EST) Cholesterol 155 0 - 200 mg/dL LAB CHEMISTRY METHOD 09/23/2024 5:43 PM EST [facility] Triglycerides 153(H) 0 - 150 mg/dL LAB CHEMISTRY METHOD 09/23/2024 5:43 PM EST [facility] HDL 72 >=40 mg/dL LAB CHEMISTRY METHOD 09/23/2024 5:43 PM EST [facility] LDL Calculated 52 0 - 100 mg/dL LAB CHEMISTRY METHOD 09/23/2024 5:43 PM EST [facility] VLDL Cholesterol Jacoby 30.6 mg/dL LAB CHEMISTRY METHOD 09/23/2024 5:43 PM EST [facility] Non HDL Chol. (LDL+VLDL) 83 <145 mg/dL LAB CHEMISTRY METHOD 09/23/2024 5:43 PM EST [facility] Chol/HDL Ratio 2.2 0.0 - 4.4 LAB CHEMISTRY METHOD 09/23/2024 5:43 PM EST [facility] Blood Venous blood specimen / Unknown Venipuncture / Unknown 09/23/2024 2:36 PM EST 09/23/2024 2:36 PM EST us Ashwin Arzola MD LAB BLOOD ORDERABLES Final Resu lt [facility] [address] [place] [address], [place] [phone] * (ABNORMAL) Microalbumin creatinine urine ratio (09/23/2024 2:36 PM EST) Creatinine, Urine 327.0 mg/dL LAB CHEMISTRY METHOD 09/23/2024 6:24 PM EST [facility] Microalb, Ur 131.0(H) 0.0 - 29.0 mg/L LAB CHEMISTRY METHOD 09/23/2024 6:24 PM EST [facility] Microalb/Crea t Ratio 40(H) <30 mg/g creat LAB CHEMISTRY METHOD 09/23/2024 6:24 PM EST [facility] Urine Urine specimen obtained by clean catch procedure / Unknown Non-blood Collection / Unknown 09/23/2024 2:36 PM EST 09/23/2024 2:36 PM EST Ashwin Arzola MD LAB URINE ORDERABLES Final Resu lt [facility] [address] [place] [address], [place] [phone] * Depression Screening (08/11/2024) Depression Screening abstracted [...] bone mineral density by WHO criteria. The [facility] Department of Internal Medicine recommends using [...] alternative screening schedule based on dia Pompa., [facility] October 31, 2011 for patients with osteopenia [...] bone mineral density by WHO criteria. The [facility] Department of Internal Medicine recommendsusing National [...] FRAX. Optional alternative screening schedule based on adriana Pompa al., [facility] for [facility] with osteopenia (based on hip BMD T-score) is as follows: * advanced osteopenia (T scores -2.00 to -2.49), BMD testing every year * moderate osteopenia (T scores -1.50 to -1.99), BMD testing every 5years mild osteopenia or normal BMD (T scores -1.50 and higher), BMD testingevery 15 years Michaela PERALTA IMG DXA PROCEDURES Final Result * Colonoscopy (05/19/2017) [facility] Colonoscopy abstracted, no interpretation Anatomical Region Laterality Modality Other Historical Provider HEALTH MAINTENANCE Final Result * Hepatitis C Screening (05/04/2014) [facility] Hepatitis C Screening abstracted Historical Provider HEALTH MAINTENANCE Final Result from Last 3 Months or Most Recently Relevant to Health Maintenance Insurance [facility] Member Subscriber Plan / Payer (Ef fective 2024-Present) Name:KEATINGROSEY KEYESA Relation to Subscriber:Self Name:Keating, Melyssa Payer ID:[id number] Group ID:[id number] Type:Not on file Address: [place] [address] [address] [address] Care Teams Staff Nurse Relationship Specialty Start Date End Date Ashwin Arzola MD [address] [place] [phone] PCP - General Internal Medicine 08/01/20
--- OUTSIDE RECORDS SUMMARY | 2025-06-15 10:26 | XMS_ITS | Encounter Summary ---
Author Organization [facility] [address] Address [address] [place] [address] Care Team Providers Care Painter And Body Work Name Role Phone Ashwin Arzola MD Primary Care Provider [phone] Encounter Details Date Type Department Care Team (Late Contact Info) Description 06/09/2025 Telephone Adult Medicine [address] [phone] Antonio Elias LPN Social History Tobacco Use [...] 11:15 AM EDT Office Visit Orthopedic Surgery [facility] 250 175 [facility] 250 [place] [address] Michele May MD 175 [place] [address] 06/28/2025 11:00 AM EDT Office Visit Adult Medicine [address] [phone] Jenna Escobar NP 444 [place] [address] 07/26/2025 10:30 AM EDT Office Visit [facility] [place] 250 175 [facility] [address] [place] [phone] Linus Luna, DPM 175 [facility] [address] [place] [phone] 08/11/2025 10:35 AM EDT Office Visit Pul[facility]gy [place] [address] [facility] [address] [place] [phone] Cami Dupont NP [address] [place] [address] 08/15/2025 10:40 AM EST Office Visit [facility] - [facility] [address] [facility] [address] [place] [phone] Hermelinda Marmolejo NP [address] [place] [address] documented as of this encounter Visit Diagnoses Not on filedocumented in this encounter Care Teams Painter And Body Work Relationship Specialty Start Date End Date Ashwin Arzola MD [address] [place] [address] PCP - General Internal Medicine 08/01/20 documented as of this encounter
--- OUTSIDE RECORDS SUMMARY | 2025-06-15 10:26 | XMS_ITS | Encounter Summary ---
[facility] Address [address] [place] [address] Care Team Providers Care Chess Instructor Name Role Phone Ashwin Arzola MD Primary Care Provider [phone] Encounter Details Date Type Department Care Team (Late Contact Info) Description 01/07/2025 Billing Patient Not Present Adult Medicine [address] [phone] Ashwin Arzola MD [address] [place] [address] Social History Tobacco Use Types Packs/Day Years [...] AM EDT Office Visit Orthopedic Surgery - [place] [address] [phone] Michele May MD 175 [place] [address] 06/28/2025 11:00 AM EDT Office Visit Adult Medicine [place] [facility] [place] 444 [place], [place] [phone] Jenna Escobar DISTRIBUTION ESTIMATOR 444 [place], [place] 07/26/2025 10:30 AM EDT Office Visit Orthopedic Surgery - [place] 250 175 [facility] 250 [place] [phone] Linus Luna, DPM 175 [facility] 250 [place] [phone] 08/11/2025 10:35 AM EDT Office Visit Pulmonolgy - [place] 175 [facility] 200 [place] [phone] Cami Dupont NP [address] [place] [address] 08/15/2025 10:40 AM EST Office Visit [facility] - [facility] [address] 300 [facility] 102 [place] [phone] Hermelinda Marmolejo NP 300 [facility] 154 [place] [address] documented as of this encounter Visit Diagnoses Not on filedocumented in this encounter Care Teams Chess Instructor Relationship Specialty Start Date End Date Ashwin Arzola MD 4 [place], [place] PCP - General Internal Medicine 08/01/20 documented as of this encounter
--- OUTSIDE RECORDS SUMMARY | 2025-06-15 10:26 | XMS_ITS ---
Author Name Beatriz Ferguson NP Address [address] [place] [address] Phone [phone] [facility] Care Team Providers Care Distribution Collection Operator Name Role Phone Beatriz Ferguson Unavailable [phone] [facility] Unavailable Shaina Olivares Unavailable Unavailable Ashwin Arzola Unavailable [phone] [facility] Unavailab [phone] Unavailable Unavailable Unavailable Reason for Referral Not [...] 2021-12-26 2023-01-02 Vitamin D (Ergocalciferol) 1.25 mg (68787 UT) Cap TAKE 1 CAPSULE BY MOUTH 1 TIME A WEEK 2021-11-16 2023-01-02 OneTouch Delica Plus [id number] Miscellaneous USE DIRECTED TWICE DAILY 2021-11-30 No [...] DAY AT BEDTIME 2022-05-01 No Data Available Kubentvymu-BHTL-Vtmkutaw 50/325/40 mg Tab TAKE 1 TABLET BY MOUTH EVERY 6 HOURS NEEDED 2022-05-01 No Data Available B-D PEN NDL SHRT [id number](02/25) CARMEN USE DIRECTED THREE TIMES DAILY 2021-08-21 No Data Available Diclofenac Sodium 1 % Gel APPLY 4 GRAMS TOPICALLY TO THE AFFECTED AREA TWICE DAILY 2022-05-29 No Data Available Furosemide 40 mg Tab TAKE 1 TABLET BY [facility] DAILY 2022-07-25 2023-01-02 Mapap Arthritis Pain [...] 20 mg Tab TAKE 1 TABLET BY [facility] AT BEDTIME 2023-06-23 No Data Available Ondansetron 4 mg Tab TAKE 1 TABLET BY [facility] EVERY 8 HOURS NEEDED FOR NAUSEA 2023-06-23 No Data Available Loratadine 10 mg Tab TAKE 1 TABLET BY [facility] EVERY DAY 2023-07-03 No Data Available Cetirizine 10 mg Tab TAKE 1 TABLET BY [facility] AT BEDTIME 2023-07-05 No Data Available Nystatin 023821 UNIT/GM Powder APPLY TOPICALLY FOUR TIMES DAILY [...] 50 mg Tab TAKE 1 TABLET BY [facility] EVERY 8 HOURS NEEDED 2023-07-30 No [...] WITH MEALS 2023-11-07 No Data Available UNIFINE 57IK1VM PEN NEEDLES USE DIREC CODY THREE TIMES DAILY 2023-11-07 2023-11-26 Azithromycin 250 mg Tab TAKE 2 TABLETS B Y MOUTH FOR 1 DAY THEN TAKE 1 TABLET BY MOUTH DAILY FOR 4 DAYS 2023-11-11 No Data Available Cefuroxime Axetil 250 mg Tab TAKE 1 TABL ET BY MOUTH TWICE DAILY 2023-11-19 No Data Available Nystatin 718548 UNIT/GM Powder apply to affected area daily, [...] List Problem Status Onset Date Resolved Date Synopsis COPD exacerbation Resolved 2022-112022-12-13 0 Hospitalization 11/25- 2/On Anoro ElliptaSpirivaProAiron 3L 02 PRNFollows PulmonologistCOPD CONTINGENCYIpratropium-Al buterol use for Respiratory flares or Albuterol Sulfate [...] worse i.e. pet dander, dust, fumes etc. Unspecified inflammatory spondylopathy, cervical region Active 2022-08 N/A Uses Ztlido patch01/09/23: Continue current treatment plan as directed. Pulmonary fibrosis, unspecified Active 2022-08 N/A On 3l 02Follows Pulmonologist01/09/23: Continue current treatment plan as directed. Frequent falls Active 2022-12 N/A Need a bedrailWalker- Has difficulty walking long distances without sitting. Unsteady, has had 4-5 falls in the last 6 months. Migraine Active 2022-12 N/A On FioricetFollows PCP Burning chest pain Resolved 2023-032023-03-14 1 03/28/23:- I do not suspect urgent cardiac event given symptoms after discussion with patient. - Sound as if this could be acid reflux symptoms. - Sent in Rx of Mylanta to try and see if that relieves the pain, if this does not help, please call CB back, or if you develop CP, nausea, vomiting, AMS. GERD (gastroesophageal reflu x disease) Active 2022-08 N/A On OmeprazoleAvoid spicy, fatty or fried food, caffeine, chocolateAvoid lying down after mealsAvoid eating late at night01/09/23: Continue current treatment plan as directed.has f/u visit 11/03/2023 Office Visit Gastroenterology Alber Benites PA-C Bladder incontinence Active 2022-08 N/A Wears Pull-ups+burning with voiding x months will f/u with SURFACE PLATE INSPECTOR 09/16/2023 Office Visit Obstetrics & Gynecology Clare Simon MD Hemiplegia and hemiparesis following cerebral infarction affecting left non-dominant side Active 2022-08 N/A CVA 2008Does not have DRAPERY ROD ASSEMBLER 11/24/23Ambulates with a cane/walkerat risk for fallsFall prevention TIPS: Wear sensible shoes. Remove home hazards (Get rid of all rugs/mats in your home). Light up your living space (keep a flash light next to your bed for night time). Use assistive devices.ambulates with walker Chronic obstructive pulmonar y disease, unspecified Active 2022-08 N/A On Anoro ElliptaSpirivaProAiron 3L 02 PRNFollows Balance Sheet AnalystCONTINGEN CY PLANMember to call for the following symptoms: [...] aches and cough. Per member RN took temp this AM told me I did not have a fever PLAN: start doxy 100mg BID x 7 days-call HH RN while in member home 9-10am Schizophrenia Active 2022-08 N/A Stable Quetiapinewith h/o delusions Follows Psychiatristfollowed by psychiatry [phone] (Neeta) ( member reports she does home [...] Klebsiella pneumoniae---sensitive to ceftriaxone) all uit symptoms resolved. Morbid obesity due to excess calories Active 2022-12 N/A StableBMI- 35.45 Encouraged healthy food choices and exerciseLipid panel from 12/2022 shows LDL at 40. Patient is on atorvastatin 80 mg. Other problems related to [facility] facilities and other health care Active 2023-11 N/A When member to call: 1. If bp is [...] call CBContinue to see PCP. Follow-up with [facility] as needed for any acute or disease education needs that may arise 05/05.what should be done when the member calls: see each individual diagnosis for contingency plan Type 2 diabetes mellitus wit h diabetic polyneuropathy; diabetic cataract Active 2022-08 N/A StableLantus, GabapentinEncouraged regular exerciseLimit unhealthy foods and eat healthy mealsAvoid sugar-sweetened beverages. White bread, rice, pasta.Follows EndocrinologistDiscussed recommended a1c level- <7%09/08/23: Continue current treatment plan as directed. BG 137 this am 12/11/22- GLYCATED HEMOGLOBIN A1C 8.4 (H)GLUCOSE 274Hemoglobin A1c: 7.0 2/249.5 05/2023 8.4 2GFR 80 12/04/2022 Major depressive disorder, recurrent, severe with psychotic symptomsInsomniaGAD Active 2022-08 N/A StableQuetiapine, Aripiprazole, Duloxetine, Ambien, ClonazepamDenies SI/HICoping mechanisms, monitor for worsening depression and follows Psychiatrist Hypertensive heart disease w ith heart failure with secondary hyperaldosteronismAtherosclerosis of aorta Active 2022-08 N/A StableFurosemide, Metoprolol, Atorvastatin Will monitor edema and weight, follows cardiologyContingency plan1. [...] safety and fall precautions. Follow up as indicated. Encounters Encounters Type Facility Date of Service Diagnosis/Co mplaint Pain Assessment - Pain Documented on a Pain Scale (1125F) [facility] [place] Pain Assessment - Pain Documented on a Pain Scale (1125F) [facility] [place] Pain Assessment - Pain Documented on a Pain Scale (1125F) [facility] [place] Pain Assessment - Pain Documented on a Pain Scale (1125F) [facility] [place] Pain Assessment - Pain Documented on a Pain Scale (1125F) [facility] [place] Pain Assessment - Pain Documented on a Pain Scale (1125F) [facility] [place] Pain Assessment - Pain Documented on a Pain Scale (1125F) [facility] [place] Pain Assessment - Pain Documented on a Pain Scale (1125F) [facility] [place] Type 2 diabetes mellitus wit [...] 95 for video, modifier 93 for phone [facility] [place]2022 Hypertensive heart disease w ith heart [...] 1111F, BP, A1c or other CPTII codes [facility] [place]/2022 Encounter for other specifie d aftercare RN, CN or CP time with patient by phone; use with 1111F, BP, A1c or other CPTII codes [facility] [place] 11/28/2022 No Data Available [facility] [place] 12/03/2022 Chronic obstructive pulmonar y disease with (acute) exacerbation No Data Available [facility] [place] 12/03/2022 Estab. patient 30-39min; chronic exacerbation, 2 stable chronic or 1 acute illness add add modifier 95 for video, (do not use for phone, instead use 93075-44) [facility] [place] 01/09/2023 Type 2 diabetes mellitus wit h [...] (do not use for phone, instead use 51737-88) [facility] [place] 01/09/2023 Estab. patient 30-39min; chronic exacerbation, 2 stable chronic or 1 acute illness add add modifier 95 for video, (do not use for phone, instead use 83643-84) [facility] [place] Estab. patient 30-39min; chronic exacerbation, 2 stable chronic or 1 acute illness add add modifier 95 for video, (do not use for phone, instead use 55634-68) [facility] [place] Estab. patient 30-39min; chronic exacerbation, 2 stable chronic or 1 acute illness add add modifier 95 for video, (do not use for phone, instead use 52780-97) [facility] [place] Estab. patient 30-39min; chronic exacerbation, 2 stable chronic or 1 acute illness add add modifier 95 for video, (do not use for phone, instead use 11405-99) [facility] [place] Estab. patient 30-39min; chronic exacerbation, 2 stable chronic or 1 acute illness add add modifier 95 for video, (do not use for phone, instead use 45618-82) [facility] [place] Estab. patient 30-39min; chronic exacerbation, 2 stable chronic or 1 acute illness add add modifier 95 for video, (do not use for phone, instead use 82819-10) [facility] [place]23 Estab. patient 30-39min; chronic exacerbation, 2 stable chronic or 1 acute illness add add modifier 95 for video, (do not use for phone, instead use 43382-91) [facility] [place]23 RN, CN or CP time with patient by phone; use with 1111F, BP, A1c or other CPTII codes [facility] [place] 01/02/2023 Encounter for other specifie d aftercare RN, CN or CP time with patient by phone; use with 1111F, BP, A1c or other CPTII codes [facility] [place]2023 No Data Available [facility] [place] 03[place]2023 Other chest pain No Data Available [facility] [place] 04/[place]/2023 Chronic obstructive pulmonar y disease, unspecifiedChronic respiratory failure, unsp w hypoxia or hypercapniaSchizophrenia, unspecified No Data Available [facility] [place] 04[place]2023 No Data Available [facility] [place] 04/02/2023 No Data Available [facility] [place] 04/02/2023 No Data Available [facility] [place]/02/2023 No Data Available [facility] [place] 04/02/2023 No Data Available [facility] [place]2023 Type 2 diabetes mellitus wit h [...] status migrainosusAtherosclerosis of aorta No Data Available [facility] [place]2023 No Data Available [facility] [place]/2023 No Data Available [facility] [place]/2023 No Data Available [facility] [place]/2023 No Data Available [facility] [place] 09/[place]/2023 No Data Available [facility] [place]2023 Type 2 diabetes mellitus wit [...] and other health care No Data Available [facility] [place]/24/2023 No Data Available [facility] [place]/24/2023 No Data Available [facility] [place] 11/24/2023 No Data Available [facility] [place]/24/2023 No Data Available [facility] [place] 11/[place]/2023 RN, CN or CP time with patient by phone; use with 1111F, BP, A1c or other CPTII codes [facility] ([place]) 11/20/2023 Encounter for other specifie d aftercare RN, CN or CP time with patient by phone; use with 1111F, BP, A1c or other CPTII codes [facility] ([place] 11/20/2023 Vital Signs Date of Collection [...] tive Time Current Smoking Status Former smoker 3 Sex Female History of Procedures Procedures [...] (do not use for phone, instead use 78192-09) 55339 2022-09-10 No Data Available No Data Availa ble Estab. patient 20-29min; 1 stable chronic or 2 minor; add add modifier 95 for video, modifier 93 for phone 93765 2022-10-03 No Data Available No Data Availa ble RN, CN or CP time with patient by phone; use with 1111F, BP, A1c or other CPTII codes 86712 2022-11-28 No Data Available No Data Avai lable Medications prescribed in hospital were reviewed and reconciled against what they were taking prior to admission during today's visit. (1111F) 1111F 2022-11-28 No Data Available No Data Availa ble No Data Available [id number] 2022-12-03 No Data Available No Data Available Medications prescribed in hospital were reviewed and reconciled against what they were taking prior to admission during today's visit. (1111F) 1111F 2022-12-03 No Data Available No Data Availa ble Estab. patient 30-39min; chronic exacerbation, 2 stable chronic or 1 acute illness add add modifier 95 for video, (do not use for phone, instead use 79999-83) 60431 2023-01-09 No Data Available No Data Availa [...] 1111F, BP, A1c or other CPTII codes 39741 2023-01-02 No Data Available No Data Avai lable Medications prescribed in hospital were reviewed and reconciled against what they were taking prior to admission during today's visit. (1111F) 1111F 2023-01-02 No Data Available No Data Availa ble No Data Available [id number] 2023-03-28 No Data Available No Data Available No Data Available [id number] 2023-04-02 No Data Available No Data Available [...] No Data Avail able No Data Available [id number] 2023-09-08 No Data Available No Data Available [...] ble Advance care planning discussed and documented advance care plan or surrogate decision-maker was documented in the medical record. (1123F) 1123F 2023-09-08 No Data Available No Data Availa ble No Data Available [id number] 2023-11-24 No Data Available No Data Available [...] 1111F, BP, A1c or other CPTII codes 13547 2023-11-20 No Data Available No Data Patricia lable Medications prescribed in hospital were reviewed [...] Falls in last 6 Months: No 2022-09-10 DRAPERY ROD ASSEMBLER only there for 9 hours 2023-11-24 Mental [...] E ducation to avoid future hospitalization: Call [facility] if symptoms of illness develop. COPD exacerbation [...] or disease education needs that may arise.On BvbipoWpczfdazeqL5r- 7.5Encouraged regular exerciseLimit unhealthy foods and eat healthy mealsAvoid sugar-sweetened beverages. White bread, rice, pasta.Follows EndocrinologistDiscussed recommended a1c level- <7%CVA s a PCAAmbulates with a cane/walkerOn Anoro ElliptaSpirivaProAiron 3L 02 PRNFollows PulmonologistOn 3l 02Follows PulmonologistOn QuetiapineAripiprazoleDuloxetineFollows PsychiatristOn AmbienUses Ztlido patchOn Vitamin DOn FurosemideMetoprololWill monitor edema and weight, follows cardiologyOn AripiprazoleStableFollows PsychiatrProMedica Defiance Regional HospitalGsczcqYhkooyyosqQ8q- 7.1Follows OphthalmologistOn OmeprazoleAvoid spicy, fatty or fried food, caffeine, chocolateAvoid lying down after mealsAvoid eating late at nightWears Pull-ups 2022-10-03 11:44:44 Televideo 20-29min; 1 stable chronic or 2 minor; add modifier 95Continue to see PCP. Follow-up with [facility] as needed for any acute or disease education needs that may arise 05/05.On JnqoraYskrolsdaoO3t- 7.1Encouraged regular exerciseLimit unhealthy foods and eat healthy mealsAvoid sugar-sweetened beverages. White bread, rice, pasta.Follows EndocrinologistDiscussed recommended a1c level- <7%CVA s a PCAAmbulates with a cane/walkerOn Anoro ElliptaSpirivaProAiron 3L 02 PRNFollows PulmonologistOn 3l 02Follows PulmonologistOn QuetiapineAripiprazoleDuloxetineFollows PsychiatristOn AmbienUses Ztlido patchOn Vitamin DOn FurosemideMetoprololWill monitor edema and weight, follows cardiologyOn AripiprazoleStableFollows PsychiatristOn LbzoyzKybiuuacslL3b- 7.5Follows OphthalmologistOn OmeprazoleAvoid spicy, fatty or fried food, caffeine, chocolateAvoid lying down after mealsAvoid eating late at nightWears Pull-upsOn ClonazepamStableFollows Psychiatrist 2022-11-28 12:22:24 Follow up with CB AP P 12/03/22 for CCA 2022-12-03 10:38:24 COPD exacerbation [...] or disease education needs that may arise.On FtfeqcPadwmyaizbK5c- 7.1Encouraged regular exerciseLimit unhealthy foods and eat [...] Psychiatrist01/09/23: Continue current treatment plan as directed.On GmdglpUscfokxhybJ9r- 7.5Follows OphthalmologistOn OmeprazoleAvoid spicy, fatty or fried [...] modifier 95)Continue to see PCP. Follow-up with [facility] as needed for any acute [...] obtained (3008F)Continue to see PCP. [facility] or disease [...] modifier 95)Continue to see PCP. Follow-up with [facility] as needed for any acute or disease education needs that may arise 05/05.On IvakkoEozsmqqxztP8s- 7.1Encouraged regular exerciseLimit unhealthy foods and eat [...] and denies eating well-balanced meals.GFR 80 3CVA 2008Has a PCAAmbulates with a cane/walker04/02/23: Requesting rollator [...] and fall precautions. Follow up as indicated.On YthsbmWgurkkdjymA2m- 7.5Follows OphthalmologistOn OmeprazoleAvoid spicy, fatty or fried food, caffeine, chocolateAvoid lying down after mealsAvoid eating late at night01/09/23: Continue current treatment plan as directed.has f/u visit 11/03/2023 Office Visit Gastroenterology Alber Benites PA-SHAKILAears Pull-ups+burning with voiding x months will f/u with SURFACE PLATE INSPECTOR 09/16/2023 Office Visit Obstetrics & Gynecology Clare [...] (H)GLUCOSE 274DM foot care: 07/2023Hemoglobin A1c: 7.0 11/19/249.5 05/2023 8.4 202GFR 80 3CVA 2008Does not have DRAPERY ROD ASSEMBLER 11/24/23Ambulates with a cane/walkerat risk for fallsFall prevention TIPS: Wear sensible shoes. Remove home hazards (Get rid of all rugs/mats in your home). Light up your living space (keep a flash light next to your bed for night time). Use assistive devices.ambulates with walkerOn Anoro ElliptaSpirivaProAiron 3L 02 Sole Balance Sheet AnalystCONTINGENCY PLANMember to call for the following symptoms: [...] aches and cough. Per member RN took temp this AM told me I did not have a fever PLAN: start doxy 100mg BID x 7 days-call HH RN while in member home 9-10amOn 3l 02Fobalwinder Pulmonologist01/09/23: Continue current treatment plan as directed.On [...] agitationPlanned intervention: Contact mental health professional: psychiatry [phone] (Neeta)On quetiapinewith h/o delusions Follows Psychiatristfollowed by psychiatry [phone] (Neeta) ( member reports she does home [...] pneumoniae---sensitive to ceftriaxone) all uit symptoms resolved.On KplcxtSffkrfmngnG7z- 7.0 11/19/23Follows OphthalmologistOn OmeprazoleAvoid spicy, fatty or fried food, caffeine, chocolateAvoid lying down after mealsAvoid eating late at night01/09/23: Continue current treatment plan as directed.has f/u visit 11/03/2023 Office Visit Gastroenterology Alber Benites PA-Zulma Pull-ups+burning with voiding x months will f/u with SURFACE PLATE INSPECTOR 09/16/2023 Office Visit Obstetrics & Gynecology Clare Simon MDOn ClonazepamStableNicole Psychiatrist01/09/23: Continue current treatment plan as directed.TSH: [...] joint pain increased [facility]. [facility] or disease [...] ER visit(s) and precipitating factors: Hospital name: [facility] Hospital admission date: 11/16/2023 Hospital discharge date: 11/19/2023 Discharge diagnosis: Anxiety / UTI d/c'd with [...] chills todayRN there 9-10am ---Member unable to pickers material handlers medications as she does not have DRAPERY ROD ASSEMBLER. RN brought medications today. member unable to give me RN name or contact info. 2023-11-24 2 hours per day--no DRAPERY ROD ASSEMBLER (does not have a DRAPERY ROD ASSEMBLER) . email sent to [facility] cc re need for DRAPERY ROD ASSEMBLER 2023-11-24 followed by tracie bonilla [phone] (Neeta) ( member reports she does home visits) 2023-11-24 unable to complete medication reconciliation; RN not available and member does not administer medications her self. 2023-11-24 medication list u pdated after review of Hosp records/medication list
--- OUTSIDE RECORDS SUMMARY | 2025-06-15 10:26 | XMS_ITS | Encounter Summary ---
[facility] Address [address] [place] [address] Care Team Providers Care Stranding Machine Operator Helper Name Role Phone Ashwin Arzola MD Primary Care Provider [phone] Reason for Visit * Reason Onset Date Comments faxed order 06/06/2025 Faxed order rece ived From [address] [id number] Encounter Details Date Type Department Care Team (Late st Contact Info) Description 06/06/2025 Telephone Adult Medicine [address] [phone] Antonio Elias LPN Social History Tobacco Use [...] Progress Notes * Edwige Sousa MA - 06/14/2025 4:12 PM EDT Signed scanned and e-faxed * Antonio Elias LPN - 06/06/2025 2:09 PM EDT Faxed orders [id number] on providers desk waiting signature documented in this encounter Plan of Treatment Upcoming Encounters Date Type Department Care Team (Late st Contact Info) Description 06/20/2025 11:15 AM EDT Office Visit Orthopedic Surgery [facility] [address] [facility] [address] [place] [address] Michele May MD [address] [place] [address] 06/28/2025 11:00 AM EDT Office Visit Adult Medicine [facility] [address] [place] [address] Jenna Escobar NP [address] [place] [address] 07/26/2025 10:30 AM EDT Office Visit Orthopedic Surgery [facility] [address] [facility] [address] [place] [address] Linus Luna DPM [address] [address] 08/11/2025 10:35 AM EDT Office Visit Pulmonolgy - [place] [address] [facility] [address] [place] [phone] Cami Dupont NP [address] [place] [address] 08/15/2025 10:40 AM EST Office Visit [facility] [address] [facility] [address] [place] [phone] Hermelinda Marmolejo NP 300 [facility] [address] [place] [address] documented as of this encounter Visit Diagnoses Not on filedocumented in this encounter Care Teams Stranding Machine Operator Helper Relationship Specialty Start Date End Date Ashwin Arzola MD [address] [place] [address] PCP - General Internal Medicine 08/01/20 documented as of this encounter
--- OUTSIDE RECORDS SUMMARY | 2025-06-15 10:27 | XMS_ITS | Clinical Summary ---
Author Organization Located Within [facility] Address [address] [facility] [address] [place] [phone] Phone Care Team Providers Care Lead Pastor Name Role Phone Unavailable Primary Care Provider [...] file Medical Devices Not on file Insurance [employer] MEDICARE REPLACEMENT FORMERLY [facility] MEDICARE REPLACEMENT MEDICARE REPLACEMENT FORMERLY [facility] MEDICARE REPLACEMENT FORMERLY [facility] MEDICARE REPLACEMENT FORMERLY [facility] MEDICARE REPLACEMENT Additional Source Comments The information contained in this document represents components of the legal health record. It is not the complete legal health record.Loc[facility]
--- OUTSIDE RECORDS SUMMARY | 2025-06-15 10:27 | XMS_ITS | Encounter Summary ---
Author Organization [facility] Address [address] [place] [address] Care Team Providers Care Rn Women Services Name Role Phone Ashwin Arzola MD Primary Care Provider [phone] Encounter Details Date Type Department Care Team (Late Contact Info) Description 01/19/2025 Billing Patient Not Present Adult Medicine [address] [phone] Ashwin Arzola MD [address] [place] [address] Social History Tobacco Use Types Packs/Day Years [...] AM EDT Office Visit Orthopedic Surgery - [place] [address] [phone] Michele May MD 175 [place] [address] 06/28/2025 11:00 AM EDT Office Visit [place] [facility] [place] 444 [place], [place] [phone] Jnena Escobar BIOFUELS PRODUCTION TECHNICIAN 444 [place], [place] 07/26/2025 10:30 AM EDT Office Visit Orthopedic Surgery - [place] 250 175 [facility] 250 [place] [phone] Linus Luna, DPM 175 [facility] 250 [place] [phone] 08/11/2025 10:35 AM EDT Office Visit Pulmonolgy - [place] 175 [facility] 200 [place] [phone] Cami Dupont NP 230 [place] [address] 08/15/2025 10:40 AM EST Office Visit [facility] - [facility] [address] 300 [facility] 102 [place] [phone] Hermelinda Marmolejo NP 300 [facility] 154 [place] [address] documented as of this encounter Visit Diagnoses Not on filedocumented in this encounter Care Teams Rn Women Services Relationship Specialty Start Date End Date Ashwin Arzola MD 4 [place], [place] PCP - General Internal Medicine 08/01/20 documented as of this encounter
== END 2025-06-15 09:34 | disposition home or self-care (01) ==
LOC: HO.XRAY 09:33
PROVIDERS: PCP Internal Medicine; Visit Provider Internal Medicine Gastroenterology
DX: R13.10 Dysphagia, unspecified (principal)
CPT/HCPCS: 74220

== ENCOUNTER → 2025-06-15 09:35 | Outpatient (BNV) | payer OTHER, SELFPAY | PROVIDERS: PCP Internal Medicine; Visit Provider Radiology Diagnostic Radiology | DX: R13.10 Dysphagia, unspecified (principal) | CPT/HCPCS: 74220 ==

== ENCOUNTER 2025-06-23 10:45 | Outpatient (AMB) | payer OTHER, SELFPAY ==
--- OUTSIDE RECORDS SUMMARY | 2025-06-20 11:15 | XMS_ITS | Encounter Summary ---
Author Organization [email or web address] Address [address] [place] [address] Care Team Providers Care Tail Ripper Name Role Phone Ashwin Arzola MD Primary Care Provider [phone] Reason for Visit * Reason Comments Follow-up Left shoulder pain Encounter Details Date Type Department Care Team (Late st Contact Info) Description 06/20/2025 11:15 AM EDT Office Visit Orthopedic Surgery - [place] [address] [phone] Michele May MD 175 [place] [address] Right rotator cuff tendinitis (Primary Dx); Right tennis elbow; Numbness and tingling in left hand Social History Tobacco Use Types Packs/Day Years [...] as of this encounter Progress Notes * Michele May MD - 06/20/2025 11:15 AM EDT Date: June 19, 2025 Diagnosis: Left hand numbness and tingling with CTS 6 of 7.5, right shoulder impingement with rightshoulder subacromial corticosteroid junction 04/25/2025. Right tennis elbow injection on 04/25/25 Last seen: 04/25/25 Seen with jaelyn video grinding and spraying supervisor Jason #[id number] HPI: Melyssa Keating is a 70 y.o. female community ambulator PMH of diabetes with A1Cof 7.7 on 01/27/25 stroke in 2007 with left-sided symptoms, she denies persistent symptoms after this stroke, any known spasticity. Today she presents for follow- up for her above issues. She reports that her injections helped at her last visit but still has some persistent soreness. She has had difficulty and scheduling physical therapy for her shoulder. She continues to have pain with overhead motions and reaching behind her back. She also continues to have left hand numbness and tingling. This has not improved despite nighttimebracing. She continues to have decreased sensation over her index finger and long finger primarily. I discussed that our plan was to see her after her nerve conduction study, she reports that she hasnot been reached out for contact. I confirmed her best contact number and we will update this and we will resend her nerve conduction test referral. Objective Focused Exam: Right Upper Extremity Skin intact No ecchymosis or deformity She is tender to palpation over the upper trapezius as well as the AC joint Positive Cozen's and positive maudsleys She is tender to palpation over the lateral epicondyle She has painless passive elbow range of motion from 10 to 130 degrees of flexion Fires Deltoid/Biceps/Triceps/EPL/FPL/FDP/IO SILT Ax/MSC/M/R/U palpable radial pulse AROM FF/abduction/ER/IR: 120/110/70/ilium PROM FF/abduction 160/140 pain with rotator cuff strength testing with resisted ER at 0 degrees of abduction Supraspinatus: pain with Killian's Test Impingement: pain with Neer's Test pain with Hawkin's Test AC Joint: remains TTP Left Upper Extremity Skin intact Decreased sensation over the index and middle finger otherwise SILT throughout the hand Fires EPL/FPL/FDP/IO palpable radial pulse Negative tinels at carpal tunnel Imaging: No new imaging Nerve conduction study ordered and pending Medical Decision Making (base on 2 out of 3 elements): Problems Addressed: Moderate- 2 or more stable, chronic illnesses Tests Ordered and/or Reviewed: Low Risk Level: low Assessment: Melyssa Keating presents with follow-up for her right shoulder rotator cuff tendinitis. She did some improvement after her corticosteroid injection. I encouraged her to follow-up with therapy to performrotator cuff strengthening exercises. She voiced understanding. In regards to her left hand numbness and tingling I discussed that we should obtain the nerve test that was ordered. I have updated her contact information and we will fax it to [facility] where she would prefer to have it done. She can continue with activity modification and symptomatic management for her right tennis elbow. Plan: Left hand numbness and tingling - Continue nocturnal carpal tunnel splinting -Nerve conduction study referral made out going to [facility] updated contact information and re-faxed - Instructed to call if she does not hear from them to schedule an appointment within a week. Right tennis elbow -Continue Right shoulder subacromial bursitis -physical therapy with rotator cuff strengthening exercise Michele May MD documented in this encounter Plan of Treatment Upcoming Encounters Date Type Department Care Team (Late st Contact Info) Description 06/28/2025 11:00 AM EDT Office Visit Adult Medicine [facility] 444 [place] [address] Jenna Escobar NP 444 [place] [address] 07/26/2025 10:30 AM EDT Office Visit Orthopedic Surgery [facility] [address] [phone] Linus Luna DPM 175 [facility] 250 [place] [phone] 08/11/2025 10:35 AM EDT Office Visit Pulmonolgy - [place] 175 [facility] 200 [place] [phone] Cami Dupont NP 230 [place] [phone] 08/15/2025 10:40 AM EST Office Visit [facility] - [facility] [address] 300 [facility] [address] [place] [address] Hermelinda Marmolejo NP 300 [facility] [address] 154 [place] [address] documented as of this encounter Visit Diagnoses Diagnosis Right rotator cuff tendinitis- Primary Right tennis elbow Numbness and tingling in left hand Disturbance of skin sensation documented in this encounter Care Teams Tail Ripper Relationship Specialty Start Date End Date Ashwin Arzola MD [address] [place] [phone] PCP - General Internal Medicine 08/01/20 documented as of this encounter
--- NOTE | 2025-06-23 10:51 | MHC.OFFVIS ---
Vital Signs 06/23/25 10:52 Height 5 ft 2 in Weight 174 lb BMI 31.8 BP 116/56 L Blood Pressure Location Lt brachial Position Sitting Pulse 73 Pulse Oximetry (%) 96 Oxygen Delivery Method Room Air Intake Visit Reasons: dysphagia/BS results Intake Note: Patient follow up for dysphagia, Chronic constipation and BS results Patient cc: acid reflux, constipation, poor appetite and dysphagia. Calculating Machine Operator Required: No Accompanied by: Friend Allergies Penicillins Allergy (Mild, Verified 06/23/25 10:51) Swelling Medication List - Last Reconciled 06/23/25 by Dorothy Jama MD albuterol sulfate mg continuous nebulization albuterol sulfate 90 mcg/actuation 2 puffs inhalation Q6H PRN amitriptyline 150 mg PO BEDTIME aspirin 81 mg PO DAILY atorvastatin 80 mg PO BEDTIME blood sugar diagnostic (Machina Ultra Test strips) As directed budesonide-formoterol 160-4.5 mcg/actuation inhalation xvbyvlmdoo-tzdidlewuabqz-ggqb 50-325-40 mg 1 tab PO Q6H PRN ciclopirox 0.77% 1 appl topical BID clonazepam 0.5 mg PO TID PRN docusate sodium 100 mg PO BID duloxetine 60 mg PO DAILY famotidine 20 mg PO DAILY fluconazole 100 mg PO DAILY gygakyihknc-ouiayukze-zdilfgtb 100-62.5-25 mcg (Trelegy Ellipta) 1 ea inhalation DAILY furosemide (Lasix) 40 mg PO gabapentin 300 mg PO TID insulin glargine (Lantus U-100 Insulin) 10 units (0.1 mL) subcut BEDTIME lancets (Wiseryouuch Delica Plus Lancet) As directed lisinopril 10 mg PO DAILY loratadine 10 mg PO DAILY magnesium oxide 400 mg PO DAILY metformin ER 500 mg PO DAILY metoclopramide HCl 10 mg PO QID metoprolol tartrate 25 mg PO DAILY montelukast 10 mg PO BEDTIME nitroglycerin 0.4 mg sublingual Q5M PRN omeprazole 40 mg PO BID pantoprazole 40 mg PO DAILY potassium chloride ER 20 mEq PO DAILY prednisone 40 mg (2 x 20 mg) PO DAILY prednisone 40 mg (2 x 20 mg) PO DAILY 5 days sennosides (senna) 8.6 mg PO DAILY sennosides-docusate sodium 8.6-50 mg (Senna with Docusate Sodium) 2 tab-caps (2 x 8.6-50 mg) PO BEDTIME 60 days tiotropium bromide (Spiriva with HandiHaler) 1 cap inhalation DAILY tramadol 50 mg PO Q8H PRN HPI HPI dysphagia/BS results: Details: GI clinic visit for this 70 year old Ecuadorean-speaking female for follow-up of dysphagia after recent ED visit TODAY'S VISIT: Patient cc: Patient follow up for dysphagia, Chronic constipation and BS results Pt is accompanied by her PHOTOVOLTAIC POWER SYSTEMS ENGINEER who interpreted for the patient Barium swallow results were reviewed with the patient. Continues to have dysphagia - mostly to solid food Complains of heartburn daily - usually after meals Notes her abdomen is getting more swollen over the past 3-4 months Pt appeared somnolent - per PHOTOVOLTAIC POWER SYSTEMS ENGINEER pt had poor sleep last night and woke up at 2 am. Pt complains of odynophagia and heartburn - day and night Raspy throat and feeling of warmth in her throat Patient denies symptoms of nausea, vomiting. Admits to wt loss from 178 to 162 lbs. Pt complains of constipation and denies diarrhea, black stools or rectal bleeding. Pt reports having a BM every 4-5 days Denies taking any medication for constipation at present. Pt has sleep apnea and CPAP machine to be delivered today Patient has CHF, COPD and sleep apnea Denies problems with anesthesia in the past. Denies being on chronic anticoagulation. Patient denies known family history of colon polyps, colon cancer or other GI malignancies. PAST EGD/COLONOSCOPY: March, colonoscopy was performed by Dr. Holman and 4 adenomatous polyps were removed Pt denies having a follow-up colonoscopy since then. LABS IN [place] : Reviewed IMAGING STUDIES: 06/15/25 BARIUM SWALLOW SHOWED: Moderate ventral osteophytosis C5-6 and C6-C7 disc levels indenting the posterior esophageal wall what patient feels when swallowing solids and liquids. No obstructive lesion or constriction seen. ENDOSCOPIC STUDIES: 02/03/25 EGD SHOWED: Esophagus: GE junction at 34 cm, diaphragm hiatus at 37 cm, consistent with 3 cm hiatal hernia. Food bolus was noted at the UES and was pushed down into the stomach. A slight tear was noted at the UES. white adherent plaques noted consistent with rhonda. Stomach: patchy erythema . Grade 2 flap valve on retroflexed examination of the cardia. Duodenum: Normal bulb and descending duodenum, Impression/Findings: esophageal stricture esophageal candidiasis PLAN: confirm compliance with PPI 3 weeks course of fluconazole GERD precautions f/u with o/p GI clinic 2011 Four adenomatous polyps were removed during colonoscopy PAST GI HISTORY BY REVIEW OF MEDICAL RECORDS: 02/04/24 patient was seen at [facility] ED: Reason for consult: Food impaction 69 YF w/PMHx JOSÉ, seizures, diabetes, RA, CHF, migraines, GERD, COPD came to [facility] ED today with c/o SOB & inability to swallow since 1900 last night. Pt complains of dysphagia after swallowing a root vegetable last night and has been unable to drink water or take meds Pt denies past hx of dysphagia or food impaction. States she had an EGD in the past (No report in [place]) Plan 69 YF w/PMHx JOSÉ, seizures, diabetes, RA, CHF, migraines, GERD, COPD came to [facility] ED today with c/o SOB & inability to swallow since 1900 last night. Pt complains of dysphagia after swallowing a root vegetable last night and has been unable to drink water or take meds Esophageal obstruction due to food impaction likely due to esophageal motility disorder, stricture or ring RECOMMENDATIONS: 1. Proceed with urgent upper endoscopy today. Procedure and potential complications including bleeding, perforation, reaction to anesthetic and aspiration were reviewed with the patient with the help of a video communication assistant. EGD procedure scheduled with Dr. Tyler CANTU Medical History (Updated 06/14/25 @ 12:30 by Anayeli Dinero, UPPER LEATHER SORTER) Rheumatoid arthritis Cervical spondylitis Depression Headache Dyslipidemia Hypertension Cerebral aneurysm, nonruptured Seizure disorder JOSÉ (obstructive sleep apnea) Delusions Major neurocognitive disorder Chest pain Dyspnea on exertion COVID-19 GERD (gastroesophageal reflux disease) DJD (degenerative joint disease) COPD (chronic obstructive pulmonary disease) Bipolar disorder CTS (carpal tunnel syndrome) Hx of rheumatoid arthritis Diabetic neuropathy Urinary incontinence Aneurysm of middle cerebral artery Pulmonary nodules CHF (congestive heart failure) Palpitations Migraine History of COVID-19 Mild aortic stenosis Asthma Insulin dependent type 2 diabetes mellitus Mixed hyperlipidemia Mood disorder Essential hypertension Surgical History History of esophagogastroduodenoscopy (EGD) No pertinent past surgical history Hx of cataract surgery H/O: hysterectomy Hx of cholecystectomy History of carpal tunnel release Family History Mother Myocardial infarction Father Myocardial infarction Sister Breast cancer Brother Spleen cancer Social History Household Members: None Housing: Apartment Do you presently have visiting nurse or other home services: Yes (steel grinder) Unable to assess alcohol history related to: Unable to respond Alcohol intake: never Comment: report given by Cleo rn Patient Tobacco Use Status: Never used Tobacco Tobacco use type: Cigarette Cigarette Packs Per Day: 0.2 Cigarettes Per Day: 4.0 Years Smoked: 6919-4024 e-Cigarette/Vaping Use: Never Used Second Hand Smoke Exposure: No Advance Directives Date on File: 11/20/23 service: No Current occupational status: retired Sexual orientation: Straight/Heterosexual Review of Systems Const All systems reviewed & are unremarkable except as noted in HPI and below Physical Exam Vital Signs: Last Vital Signs Pulse 73 06/23/25 10:52 BP 116/56 L 06/23/25 10:52 Pulse Ox 96 06/23/25 10:52 Oxygen Delivery Method Room Air 06/23/25 10:52 BMI result Body Mass Index 31.8 Const General: no acute distress, ill appearing and lethargic Nutritional Appearance: obese Orientation/consciousness: patient oriented x3 and lethargic Limitations: language barrier HEENT Head: Yes normal to inspection Ears: hearing grossly normal bilaterally Eyes Sclerae: sclerae normal Pupils: Equal, round and reactive pupils present Neck Neck: Yes normal visual inspection Chest Chest palpation & inspection: normal inspection of the chest Resp Effort & Inspection: normal respiratory effort Auscultation: clear to auscultation bilaterally Cardio Palpation: normal PMI Rate: regular rate Rhythm: regular rhythm Heart sounds: S1 normal heart sound present, S2 normal heart sound present and no murmurs GI Inspection: Yes distended Palpation (GI): Soft to palpation, nontender and No hepatosplenomegaly present Auscultation: normal bowel sounds Rectal Exam - Female: deferred Skin General skin exam: no rashes or lesions noted Neuro General: patient oriented x3, gait normal and moves all extremities Cranial nerves: Yes Equal, round and reactive pupils present Psych Appearance: grossly normal Mental Status: mental status grossly normal Assessment & Plan Assessment & Plan (1) Acid reflux: Comment: Persistent acid reflux despite PPI and dietary modification- EGD / colon continue PPI, avoid culprits, Code(s): K21.9 - Gastro-esophageal reflux disease without esophagitis Category: Medical (2) Colon polyp: Comment: 1- 2 years-due to inadequate prep, colon polyp not retrieved Code(s): K63.5 - Polyp of colon Category: Medical (3) Diverticulosis of colon: Code(s): K57.30 - Diverticulosis of large intestine without perforation or abscess without bleeding Category: Medical (4) Chronic constipation: Code(s): K59.09 - Other constipation Category: Medical (5) Dysphagia: Code(s): R13.10 - Dysphagia, unspecified Category: Medical (6) Dysphagia, pharyngoesophageal phase: Code(s): R13.14 - Dysphagia, pharyngoesophageal phase Category: Medical Plan 69 YF w/PMHx JOSÉ, seizures, diabetes, RA, CHF, migraines, GERD, COPD here for FU of GERD, dysphagia and chronic constipation Pt was previously seen in 01/2025 when she presented to [facility] ED with esophageal obstruction due to food impaction EGD showed a 3 cms HH, esophageal stricture and esophageal candidiasis Patient was treated with 3 week course of fluconazole. 03/22/25 Pt complains of odynophagia and heartburn - day and night Raspy throat and feeling of warmth in her throat Patient denies symptoms of nausea, vomiting. Admits to wt loss from 178 to 162 lbs. Pt reports constipation and is having a BM every 4-5 days Patient was advised to schedule an EGD with possible dilation (Dysphagia) and colonoscopy (FU of colon polyps removed during last colon in 2011) - scheduled 07/22/25 KUB to rule out obstipation Miralax 17 grams twice daily for constipation Orders: Orders XR KUB Today K59.09 - Other constipation Referrals GI Procedure Notification K59.09 - Other constipation, K63.5 - Polyp of colon, R13.14 - Dysphagia, pharyngoesophageal phase Medications: New polyethylene glycol 3350 (Miralax) 17 grams PO BID 1,020 grams 0RF 30 days K59.09 - Other constipation bisacodyl (Dulcolax (bisacodyl)) Take 2 tablets at 12 pm starting 5 days before colonoscopy 10 mg (2 x 5 mg) PO ONCE 10 tabs 0RF colon prep 5 days polyethylene glycol 3350 (Miralax) Mix Miralax with 64 oz(8 cups) of Crystal light. Take 2 tablets of Dulcolax qt 12 pm. Wait to have your 1st bowel movement, then begin drinking Miralax. Drink a glass of Miralax every 10-15 minutes until you are finished. You will drink at least another 4 cups of clear liquid of your choice over the next 2 hours. Please drink as many clear liquids as possible You may have clear liquids up to four hours before your procedure 17 grams PO DAILY 238 grams 0RF colon prep 1 day Coding Level of Care Code Est Pt Level 4 (81890) Diagnoses Acid reflux K21.9 Colon polyp K63.5 Diverticulosis of colon K57.30 Chronic constipation K59.09 Dysphagia R13.10 Dysphagia, pharyngoesophageal phase R13.14 Time Spent (min) 25
[2025-06-23 10:52] VITALS: BP 116/56; PULSE 73; O2SAT 96; BMI 31.8
--- OUTSIDE RECORDS SUMMARY | 2025-06-23 14:08 | XMS_ITS | Encounter Summary ---
Author Organization [facility] Address [address] [place] [address] Care Team Providers Care Oil Rig Driller Name Role Phone Ashwin Arzola MD Primary Care Provider [phone] Encounter Details Date Type Department Care Team (Late Contact Info) Description 01/07/2025 Billing Patient Not Present Adult Medicine [address] [phone] Ashwin Arzola MD [address] [place] [address] Social History Tobacco Use Types Packs/Day Years [...] Department Care Team (Late Contact Info) Description 06/28/2025 11:00 AM EDT Office Visit Adult Medicine [address] [phone] Jenna Escobar NP [address] [place] [address] 07/26/2025 10:30 AM EDT Office Visit Orthopedic Surgery - [place] 250 175 [facility] [address] [place] [phone] Linus Luna, DPM 175 [facility] 250 [place] [phone] 08/11/2025 10:35 AM EDT Office Visit Pulmonolgy - [place] 175 [facility] [address] [place] [phone] Cami Dupont, [place] [address] [place] [address] 08/15/2025 10:40 AM EST Office Visit [facility] - [facility] 102 300 [facility] 102 [place] [phone] Hermelinda Marmolejo, [place] 300 [facility] 154 [place] [address] documented as of this encounter Visit Diagnoses Not on filedocumented in this encounter Care Teams Oil Rig Driller Relationship Specialty Start Date End Date Ashwin Arzola MD [address] [place] [address] PCP - General Internal Medicine 08/01/20 documented as of this encounter
--- OUTSIDE RECORDS SUMMARY | 2025-06-23 14:08 | XMS_ITS | Encounter Summary ---
Author Organization [facility] Address [address] [place] [address] Care Team Providers Care Printed Circuit Board Pcb Designer Name Role Phone Ashwin Arzola MD Primary Care Provider [phone] Reason for Visit * Reason Onset Date Comments durable medical equipment 06/16/2025 Encounter Details Date Type Department Care Team (Late st Contact Info) Description 06/16/2025 Telephone [facility] [place] 175 [facility] [address] [place] [address] Cami Dupont, [place] [address] [place] [phone] Social History Tobacco Use Types Packs/Day Years [...] as of this encounter Progress Notes * Tanika Pat MA - 06/22/2025 1:51 PM EDT Order printed placed on blue folder * Rosy Constantino - 06/22/2025 1:39 PM EDT Reliable fax received for patient note Attached to encounter * Carmen Patel - 06/16/2025 11:43 AM EDT Pts DIRECT SUPPORT STAFF requesting CPAP machine supplies order. Supplying company fax number [phone]. / Please advice. documented in this encounter Plan of Treatment Upcoming Encounters Date Type Department Care Team (Late st Contact Info) Description 06/28/2025 11:00 AM EDT Office Visit Adult Medicine [facility] 444 [place] [address] Jenna Escobar NP 444 [place] [address] 07/26/2025 10:30 AM EDT Office Visit Orthopedic Surgery - [place] 250 175 [facility] 250 [place] [phone] Linus Luna, DPM 175 [facility] 250 [place] [phone] 08/11/2025 10:35 AM EDT Office Visit Pulmonolgy - [place] 175 [facility] 200 [place] [address] Cami Dupont NP 230 [place] [address] 08/15/2025 10:40 AM EST Office Visit [facility] - [facility] [address] 300 [facility] 102 [place] [phone] Hermelinda Marmolejo NP 300 [facility] 154 [place] [address] documented as of this encounter Visit Diagnoses Not on filedocumented in this encounter Care Teams Printed Circuit Board Pcb Designer Relationship Specialty Start Date End Date Ashwin Arzola MD [address] [place] [phone] PCP - General Internal Medicine 08/01/20 documented as of this encounter
--- OUTSIDE RECORDS SUMMARY | 2025-06-23 14:08 | XMS_ITS | Encounter Summary ---
[facility] Address [address] [place] [address] Care Team Providers Care Crematorium Operator Name Role Phone Ashwin Arzola MD Primary Care Provider [phone] Encounter Details Date Type Department Care Team (Late Contact Info) Description 06/09/2025 Telephone Adult Medicine [address] [phone] Antonio Elias LPN Social History Tobacco Use [...] Upcoming Encounters Date Type Department Care Team ([facility] Contact Info) Description 06/28/2025 11:00 AM EDT Office Visit Adult Medicine [address] [phone] Jenna Escobar, SPLICING MACHINE OPERATOR 444 [place], [place] 07/26/2025 10:30 AM EDT Office Visit Orthopedic Surgery - [place] 250 175 [facility] [address] 250 [place] [address] Linus Luna, DPM 175 [facility] [address] 250 [place] [phone] 08/11/2025 10:35 AM EDT Office Visit Pulmonolgy - [place] 175 [facility] [address] [place] [phone] Cami Dupont, [place] 230 [place] [address] 08/15/2025 10:40 AM EST Office Visit [facility] - [facility] [address] 300 [facility] 102 [place] [phone] Hermelinda Marmolejo, GE[place] 300 [facility] [address] [place] [address] documented as of this encounter Visit Diagnoses Not on filedocumented in this encounter Care Teams Crematorium Operator Relationship Specialty Start Date End Date Ashwin Arzola MD 4 [place] [address] PCP - General Internal Medicine 08/01/20 documented as of this encounter
--- OUTSIDE RECORDS SUMMARY | 2025-06-23 14:08 | XMS_ITS | Clinical Summary ---
Author Organization [facility] 444 [facility] Address [address] [place] [address] Phone Care Team Providers Care Mobile Device Developer Name Role Phone Ashwin Arzola MD Primary Care Provider [phone] Allergies Active Allergy Reactions Criticality Noted Date [...] Active blood-glucose meter,continuou s (FreeStyle Cade 3 [employer]) miscIndications :Type 2 diabetes mellitus with other specified complication, with long-term current use of insulin ([facility] V24, [facility] V28) To check sugars 1 each [...] complication, with long-term current use of insulin ([facility] V24, [facility] V28) Box = Kit = EA, [...] unspecified type,Severe persistent asthma, unspecified whether complicated (CMS/[facility] V28) Take 3 mL (2.5 mg [...] complication, with long-term current use of insulin ([facility] V24, CMS/[facility] V28) Take 1 tablet (500 mg total) by mouth 1 (one) time each day. 30 tablet 1 025 Active metoclopramide (REGLAN) 10 mg tablet TAKE 1 TABLET (10 MG TOTAL) BY MOUTH 4 (FOUR) TIMES A DAY. 120 tablet 025 Active ammonium lactate (AMLACTIN) 12 % cream Apply topically if needed for dry skin. 560 g 1 025 2024 Active diclofenac (VOLTAREN) 1 % topical gel APPLY 2 GRAMOS TOPICALLY TO THE AFFECTED AREA two (2) times a day 100 g 5 025 Active mupirocin (BACTROBAN) 2 % cream Apply topically 3 (three) times a day. 30 g 025 Active insulin glargine (Lantus Solostar U-100 Insulin) 100 unit/mL (3 mL) injection pen Inject 32-34 Units under the skin 1 (one) time each day. 15 mL 025 Active furosemide (LASIX) 40 mg tablet Take 1 tablet (40 mg total) by mouth 2 (two) times a day. 023 2024 Discontinued(T herapy completed) Lantus Solostar U-100 Insulin 100 unit/mL (3 mL) injection pen INJECT 30 UNITS SUBCUTANEOUSLY EVERY DAY 15 mL 025 2024 Discontinued doxycycline (VIBRAMYCIN) 100 mg capsule Take 1 [...] selenium, zinc). 14 each 025 2024 Active Problems Problem Noted Date Diagnosed Date Abnormal CT of the abdomen 08/19/2024 Bipolar disorder ([facility] V24, [facility] V28) 04/2024 Overview (08/19/2024): [facility] COVID-19 08/19/2024 CTS (carpal tunnel syndrome) [...] Type 2 diabetes mellitus wit h cataract ([facility] V24, [facility] V28) 05/04/2020 Obesity (BMI 30.0-34.9) 02/10/2018 Stage 1 mild COPD by GOLD cl assification ([facility] V24, [facility] V28) 02/10/2018 Overview (08/19/2024): Last Assessment & Plan: Mild COPD. Continue with Trelegy 1 puff once a day. Migraine 01/16/2017 Palpitations 07/08/2016 CHF (congestive heart failure) ([facility] V24, [facility] V28) 04/22/2016 Asthma 04/05/2016 Overview (08/19/2024): Last Assessment & Plan: Continue with the use of Trelegy. The severity of asthma does not correlate with her symptoms. She is doing excellent with the Trelegy as well we will continue it. Diabetes mellitus with neuro logical manifestation ([facility] V24, [facility] V28) 12/19/2014 Pulmonary nodules/lesions, multiple 10/17/2014 Overview (08/19/2024): Last Assessment & Plan: Patient has history of calcified granulomas which has been stable for many years. Aneurysm of middle cerebral artery 07/07/2014 Overview (08/19/2024): 4mm on the R MCA bifucation. Patient was follow in [place] and no intervention was recommended Urinary incontinence 11/18/2013 Diabetic neuropathy ([facility] V24, [facility] V28) 0 02/03/2013 Overview (08/19/2024): Noted [...] Encounters Date Type Department Care Team Description 06/20/2025 11:15 AM EDT Office Visit Orthopedic Surgery - [place] 250 175 [facility] 250 [place] [phone] Michele May MD Right rotator cuff tendinitis (Primary Dx); Right tennis elbow; Numbness and tingling in left hand 06/16/2025 Telephone Pulmonolgy [facility] 175 [facility] 200 [place] [phone] Cami Dupont NP 06/14/2025 9:45 AM EDT Office Visit Pulmonolgy [facility] 175 [facility] 200 [place] [phone] Cami Dupont NP Moderate persistent asthma without complication (Primary Dx); Stage 1 mild COPD by GOLD classification ([facility] V24, [facility] V28); Pulmonary nodules/lesions, multiple; JOSÉ (obstructive sleep apnea); Obesity (BMI 30.0-34.9) 06/09/2025 Telephone Adult [address] [phone] Antonio Elias, ALMITA 06/08/2025 11:15 AM EDT Office Visit Adult [address] [phone] Eddie Stapleton MD Cellulitis of other specified site (Primary Dx); Folliculitis; Type 2 diabetes mellitus with hyperglycemia, with long-term current use of insulin ([facility] V24, [facility] V28) 06/06/[address] [phone] Antonio Elias, HEAD ANIMAL KEEPER 05/24/2025 10:45 AM EDT Office Visit Orthopedic Surgery [facility] [address] [place] [phone] Linus Luna DPM Primary osteoarthritis of both feet (Primary Dx); Diabetic mononeuropathy simplex ([facility] V24, [facility] V28); Tinea pedis of both feet; Corns and callosities; Type II diabetes mellitus with peripheral circulatory disorder ([facility] V24, [facility] V28); Metatarsalgia of both feet; Pain in toe of right foot; Dermatophytosis of nail; Pain in toe of left foot 04/29/2025 9:30 AM EDT Ancillary Procedure [facility] - [facility] [address] [phone] 04/25/2025 1:45 PM EDT Office Visit Orthopedic [place] [address] [phone] Michele May MD Numbness and tingling in left hand (Primary Dx); Right shoulder pain; Right elbow pain; Right tennis elbow; Right rotator cuff tendinitis 04/06/2025 10:00 AM EDT [facility] 175 [facility] 200 [place] [phone] Moderate persistent asthma without complication 04/01/[address] [phone] Kari Avery LPN 03/29/2025 10:15 AM EDT Office Visit Orthopedic Surgery [facility] 250 175 [facility] 250 [place] [phone] Linus Luna, DPM Primary osteoarthritis of both feet (Primary Dx); Metatarsalgia of both feet; Pain in toe of right foot; Dermatophytosis of nail; Pain in toe of left foot; Type II diabetes mellitus with peripheral circulatory disorder (CMS/[facility] V24, CMS/[facility] V28); Diabetic mononeuropathy simplex (CMS/HCC V24, CMS/HCC V28); Tinea pedis of both feet; Corns and callosities; Follow-up exam 03/24/2025 [facility] 175 [facility] 200 [place] [phone] Tanika Jack MA from Last 3 Months Immunizations Name Administration [...] under propofol UPPER GASTROINTESTINAL ENDOSCOPY 10/29/2016 PROCEDURE: [place] UPPER GI ENDOSCOPY PERFORMED; COMMENT: gastritis; biopsies not taken COLONOSCOPY 03/31/2012 PROCEDURE: HISTORICAL COLONOSCOPY; COMMENT: [facility]; Four adenomas UPPER GASTROINTESTINAL ENDOSCOPY 09/02/2019 PROCEDURE: UPPER GI ENDOSCOPY/EXAM; COMMENT: gastritis, biopsy pending CATARACT EXTRACTION Right PROCEDURE: HISTORICAL CATARACT REMOVAL Medical History Medical History Date Comments Asthma DX:Asthma Seronegative rheumatoid arth ritis ([facility] V24, [facility] V28) DX:Seronegative rheumatoid arthritis ([facility]) Lumbar spondylosis DX:Lumbar spo ndylosis; COMMENT: L3-S1 CTS (carpal tunnel syndrome) DX: CTS (carpal tunnel syndrome); COMMENT: s/p bilat surgery Plantar fasciitis DX:Plantar fas ciitis; COMMENT: Left Medial epicondylitis DX:Medial e picondylitis Pulmonary nodules DX:Pulmonary n odules; COMMENT: calcified Diabetes mellitus ([facility] V 24, [facility] V28) DX:Diabetes mellitus (HCC) Bipolar disorder ([facility] V2 4, [facility] V28) DX:Bipolar disorder ([facility]) HTN (hypertension) DX:HTN (hyper tension) Bronchitis, not specified as acute or chronic DX:Bronchitis, not specified as acute or chronic Diabetes mellitus with neuro logical manifestation ([facility] V24, [facility] V28) 12/19/2014 DX:Diabetes mellitus with neurological manifestation (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 V24, [facility] V28) 02/20/2017 DX:DM type 2 causin g neurological disease ([facility]) Helicobacter pylori infection DX :Helicobacter pylori [...] Adult Medicine [facility] 444 [place] [address] Jenna Escobar NP 444 [place] [address] 07/26/2025 10:30 AM EDT Office Visit Orthopedic Surgery - [place] 250 175 [facility] 250 [place] [phone] Linus Luna, DPM 175 [facility] 250 [place] [phone] 08/11/2025 10:35 AM EDT Office Visit Pulmonolgy - [place] 175 [facility] 200 [place] [phone] Cami Dupont NP 230 [place] [phone] 08/15/2025 10:40 AM EST Office Visit [facility] - [facility] 102 300 [facility] 102 [place] [phone] Hermelinda Marmolejo NP 300 [facility] 154 [place] [address] Health Maintenance Due Date Last Done Comments Diabetes: Annual Retina Eye Exam 1965 RSV Immunization Adult Patients (1 - Risk 60-74 years 1-dose series) 2014 Falls Risk Assessment 09/21/2022 Social Influencers of Health Screening 09/21/2022 Depression Screening 10/13/2024 08/11/2024 Diabetes: Annual Foot Exam 01/07/2025 01/08/2024 COVID-19 Vaccine ( - season) 2025 11/07/2021, 01/17/2021 Influenza Vaccine (#1) [...] 04/25/2025 2:35 PM EDT Right shoulder pain WA ARTHROCENTESIS/ASPIR ATION/INJECTION INTERMEDIATE JOINT/BURSA WO U/S GUID Routine 04/25/2025 1:45 PM EDT Right tennis elbow WA ARTHROCENTESIS/ASPIR ATION/INJECTION MAJOR JOINT/BURSA W/O U/S GUIDANCE [...] Uncontrolled type 2 diabetes mellitus with hyperglycemia ([facility] V24, CMS/[facility] V28) MICROALBUMIN CREATININE URINE RATIO Routine 09/23/2024 2:36 PM EST Type 2 diabetes mellitus with cataract (CMS/[facility] V24, [facility] V28) LIPID PANEL WITH REFLEX TO DIRECT [...] There is no evidence of inducible ischemia. us Ashwin Arzola MD CV STRESS PROCEDURES Final [...] acute osseous abnormality of the right elbow. us Michele May MD IMG XR PROCEDURES Edited [...] and acromioclavicular joint. us Michele May MD IM XR PROCEDURES Final Result * WA ARTHROCENTESIS/ASPIRATION/INJECTION INTERMEDIATE JOINT/BURSA WO U/S GUID (04/25/2025 [...] IN CLINIC/BEDSIDE ORDERABLES Fin al Result * WA ARTHROCENTESIS/ASPIRATION/INJECTION MAJOR JOINT/BURSA W/O U/S GUIDANCE (04/25/2025 [...] with patient: Verbal Pre-procedure timeout performed: yes Michele May MD IN CLINIC/BEDSIDE ORDERABLES [facility] al Result * Pulmonary function testing: Carbon [...] supplemental Oxygen for today's Activity. Cami Dupont EQUIPMENT APPLICATION SPECIALIST PFT ORDERABLES Final R esult * XR [...] talus navicular joint to calcaneal cuboid joint us Linus Luna DPM IMG XR PROCEDURES Final R esult * (ABNORMAL) Basic metabolic panel (03/04/2025 11:53 AM EDT) Sodium 141 133 - 145 mmol/L LAB CHEMISTRY METHOD 03/04/2025 4:16 PM [facility] Potassium 3.9 3.5 - 5.5 mmol/L LAB CHEMISTRY METHOD 03/04/2025 4:16 PM [facility] Chloride 103 96 - 110 mmol/L LAB CHEMISTRY METHOD 03/04/2025 4:16 PM [facility] CO2 31 21 - 32 mmol/L LAB CHEMISTRY METHOD 03/04/2025 4:16 PM [facility] Anion Gap 7 3 - 11 LAB CHEMISTRY METHOD 03/04/2025 4:16 PM [facility] Glucose 164(H) 70 - 100 mg/dL LAB CHEMISTRY METHOD 03/04/2025 4:16 PM [facility] BUN 19 5 - 25 mg/dL LAB CHEMISTRY METHOD 03/04/2025 4:16 PM [facility] Creatinine 0.76 0.50 - 1.10 mg/dL LAB CHEMISTRY METHOD 03/04/2025 4:16 PM [facility] eGFR 84 >=60 mL/min/1. 73m2 LAB CHEMISTRY METHOD 03/04/2025 4:16 PM [facility] Comment:Calculation based on the Chronic Kidney Disease Epidemiology Collaboration (CKD-EPI) equation refit without adjustment for race. BUN/Creatinine Ratio 25.0 LAB CHEMISTRY METHOD 03/04/2025 4:16 PM [facility] Calcium 9.4 8.5 - 10.5 mg/dL LAB CHEMISTRY METHOD 03/04/2025 4:16 PM EDT [facility] Blood Venous blood specimen / Unknown Venipuncture / Unknown 03/04/2025 11:53 AM EDT 03/04/2025 11:53 AM EDT us Cami Dupont EQUIPMENT APPLICATION SPECIALIST LAB BLOOD ORDERABLES Fi nal Result Performing Organization Address [facility]/ZIP Co de Phone Number [facility] [address] [place] [address], [place] [phone] * (ABNORMAL) Hemoglobin A1c (01/27/2025 11:14 AM EDT) Hemoglobin A1C 7.7(H) <6.5 % LAB CHEMISTRY METHOD 01/27/2025 2:02 PM EDT [facility] Mean Bld Glu Estim. 174 mg/dL LAB CHEMISTRY METHOD 01/27/2025 2:02 PM EDT [facility] Blood Venous blood specimen / Unknown Venipuncture / Unknown 01/27/2025 11:14 AM EDT 01/27/2025 11:14 AM EDT us Ashwin Arzola MD LAB BLOOD ORDERABLES Final Resu lt Performing Organization Address [facility]/ZIP Co de Phone Number [facility] [address] [place] [address], [place] [phone] * (ABNORMAL) Lipid panel with reflex to direct LDL (09/23/2024 2:36 PM EST) Cholesterol 155 0 - 200 mg/dL LAB CHEMISTRY METHOD 09/23/2024 5:43 PM EST [facility] Triglycerides 153(H) 0 - 150 mg/dL LAB CHEMISTRY METHOD 09/23/2024 5:43 PM EST [facility] HDL 72 >=40 mg/dL LAB CHEMISTRY METHOD 09/23/2024 5:43 PM EST [facility] LDL Calculated 52 0 - 100 mg/dL LAB CHEMISTRY METHOD 09/23/2024 5:43 PM EST [facility] VLDL Cholesterol Jacoby 30.6 mg/dL LAB CHEMISTRY METHOD 09/23/2024 5:43 PM EST [facility] Non HDL Chol. (LDL+VLDL) 83 <145 mg/dL LAB CHEMISTRY METHOD 09/23/2024 5:43 PM [facility] Chol/HDL Ratio 2.2 0.0 - 4.4 LAB CHEMISTRY METHOD 09/23/2024 5:43 PM EST [facility] Blood Venous blood specimen / Unknown Venipuncture / Unknown 09/23/2024 2:36 PM EST 09/23/2024 2:36 PM EST us Ashwin Arzola MD LAB BLOOD ORDERABLES Final Resu lt Performing Organization Address City/[facility]/ZIP Co de Phone Number [facility] [address] [place] [address], * (ABNORMAL) Microalbumin creatinine urine ratio (09/23/2024 2:36 PM EST) Creatinine, Urine 327.0 mg/dL LAB CHEMISTRY METHOD 09/23/2024 6:24 PM [facility] Microalb, Ur 131.0(H) 0.0 - 29.0 mg/L LAB CHEMISTRY METHOD 09/23/2024 6:24 PM [facility] Microalb/Crea t Ratio 40(H) <30 mg/g creat LAB CHEMISTRY METHOD 09/23/2024 6:24 PM EST [facility] Urine Urine specimen obtained by clean catch procedure / Unknown Non-blood Collection / Unknown 09/23/2024 2:36 PM EST 09/23/2024 2:36 PM EST us Ashwin Arzola MD LAB URINE ORDERABLES Final Resu lt Performing Organization Address City/[facility]/ZIP Co de Phone Number [facility] [address] [place] [address], [place] [phone] * Depression Screening (08/11/2024) Depression Screening abstracted [...] Exam (01/08/2024) Diabetes: Annual Foot Exam abstracted us Historical [...] bone mineral density by WHO criteria. [facility] Department of Internal Medicine recommends using [...] alternative screening schedule based on dia Pompa., [facility] October 31, 2011 for patients [...] bone mineral density by WHO criteria. [facility] Department of Internal Medicine recommendsusing National [...] alternative screening schedule based on dia Pom[place]., NEJJanuary 2011 for patients with osteopenia (based on hip BMD T-score) is as follows: * advanced osteopenia (T scores -2.00 to -2.49), BMD testing every year * moderate osteopenia (T scores -1.50 to -1.99), BMD testing every 5years mild osteopenia or normal BMD (T scores -1.50 and higher), BMD testingevery 15 years Michaela PERALTA IMG DXA PROCEDURES Final Result * Colonoscopy (05/19/2017) [facility] Colonoscopy abstracted, no interpretation Anatomical Region Laterality Modality Other Historical Provider HEALTH MAINTENANCE Final Result * Hepatitis C Screening (05/04/2014) [facility] Hepatitis C Screening abstracted Historical Provider HEALTH MAINTENANCE Final Result from Last 3 Months or Most Recently Relevant to Health Maintenance Insurance [facility] Member Subscriber Plan / Payer (Ef fective 2024-Present) Name:MELYSSA KEATING Relation to Subscriber:Self Name:Melyssa Keating Payer ID:[id number] Group ID:[id number] Type:Not on file Address: [place] [address] [address] [address] Care Teams Mobile Device Developer Relationship Specialty Start Date End Date Ashwin Arzola MD [address] [place] [address] PCP - General Internal Medicine 08/01/20
--- OUTSIDE RECORDS SUMMARY | 2025-06-23 14:08 | XMS_ITS ---
Author Name Beatriz Ferguson NP Address [address] [place] [address] Phone [phone] [facility] Care Team Providers Care Dealmaker Name Role Phone Beatriz Ferguson Unavailable [phone] [facility] Unavailable Shaina Olivares Unavailable Unavailable Ashwin Arzola Unavailable [phone] [facility] Unavailab [phone] Unavailable Unavailable Unavailable Reason for Referral Not [...] 2021-12-26 2023-01-02 Vitamin D (Ergocalciferol) 1.25 mg (92463 UT) Cap TAKE 1 CAPSULE BY MOUTH 1 TIME A WEEK 2021-11-16 2023-01-02 OneTouch Delica Plus Nujpad86B Miscellaneous USE DIRECTED TWICE DAILY 2021-11-30 No [...] DAY AT BEDTIME 2022-05-01 No Data Available Bjburulclo-ENRB-Lftozfrl 50/325/40 mg Tab TAKE 1 TABLET BY MOUTH EVERY 6 HOURS NEEDED 2022-05-01 No Data Available B-D PEN NDL SHRT 22PX2DP(02/25) CARMEN USE DIRECTED THREE TIMES DAILY 2021-08-21 No Data Available Diclofenac Sodium 1 % Gel APPLY 4 GRAMS TOPICALLY TO THE AFFECTED AREA TWICE DAILY 2022-05-29 No Data Available Furosemide 40 mg Tab TAKE 1 TABLET BY [facility] DAILY 2022-07-25 2023-01-02 Mapap [...] 20 mg Tab TAKE 1 TABLET BY [facility] AT BEDTIME 2023-06-23 No Data Available Ondansetron 4 mg Tab TAKE 1 TABLET BY [facility] EVERY 8 HOURS NEEDED FOR NAUSEA 2023-06-23 No Data Available Loratadine 10 mg Tab TAKE 1 TABLET BY [facility] EVERY DAY 2023-07-03 No Data Available Cetirizine 10 mg Tab TAKE 1 TABLET BY [facility] AT BEDTIME 2023-07-05 No Data Available Nystatin 704011 UNIT/GM Powder APPLY TOPICALLY FOUR TIMES DAILY [...] 50 mg Tab TAKE 1 TABLET BY [facility] EVERY 8 HOURS NEEDED 2023-07-30 No [...] WITH MEALS 2023-11-07 No Data Available UNIFINE 26RB5EN PEN NEEDLES USE DIREC CODY THREE TIMES DAILY 2023-11-07 2023-11-26 Azithromycin 250 mg Tab TAKE 2 TABLETS B Y MOUTH FOR 1 DAY THEN TAKE 1 TABLET BY MOUTH DAILY FOR 4 DAYS 2023-11-11 No Data Available Cefuroxime Axetil 250 mg Tab TAKE 1 TABL ET BY MOUTH TWICE DAILY 2023-11-19 No Data Available Nystatin 952354 UNIT/GM Powder apply to affected area daily, [...] with voiding x months will f/u with AMMUNITION ASSEMBLY II LABORER 09/16/2023 Office Visit Obstetrics & Gynecology Clare Simon MD Hemiplegia and hemiparesis following cerebral infarction affecting left non-dominant side Active 2022-08 N/A CVA 2008Does not have [facility] 11/24/23Ambulates with a cane/walkerat risk for fallsFall prevention TIPS: Wear sensible shoes. Remove home hazards (Get rid of all rugs/mats in your home). Light up your living space (keep a flash light next to your bed for night time). Use assistive devices.ambulates with walker Chronic obstructive pulmonar y disease, unspecified Active 2022-08 N/A On Anoro ElliptaSpirivaProAiron 3L 02 PRNFollows Refrigeration TechnicianCONTINGEN CY PLANMember to call for the following [...] Quetiapinewith h/o delusions Follows Psychiatristfollowed by psychiatry [phone] (Neeta) ( member reports she does home [...] atorvastatin 80 mg. Other problems related to [facility] facilities and other health care Active 2023-11 [...] Pain Documented on a Pain Scale (1125F) [facility] [place] Pain Assessment - Pain Documented on a Pain Scale (1125F) [facility] [place] Pain Assessment - Pain Documented on a Pain Scale (1125F) [facility] [place] Pain Assessment - Pain Documented on a Pain Scale (1125F) [facility] [place] Pain Assessment - Pain Documented on a Pain Scale (1125F) [facility] [place] Pain Assessment - Pain Documented on a Pain Scale (1125F) [facility] [place] Pain Assessment - Pain Documented on a Pain Scale (1125F) [facility] [place] Pain Assessment - Pain Documented on a Pain Scale (1125F) [facility] [place]2022 Type 2 diabetes mellitus [...] 95 for video, modifier 93 for phone [facility] [place] 10[place]2022 Hypertensive heart disease w [...] 1111F, BP, A1c or other CPTII codes [facility] [place] 11/[place]/2022 Encounter for other specifie d aftercare RN, CN or CP time with patient by phone; use with 1111F, BP, A1c or other CPTII codes [facility] [place] 11/28/2022 No Data Available [facility] [place] 12/03/2022 Chronic obstructive pulmonar y disease with (acute) exacerbation No Data Available [facility] [place] 12/03/2022 Estab. patient 30-39min; chronic exacerbation, 2 stable chronic or 1 acute illness add add modifier 95 for video, (do not use for phone, instead use 90899-24) [facility] [place] 01/09/2023 Type 2 diabetes mellitus wit h [...] (do not use for phone, instead use 38077-22) [facility] [place] 01/09/2023 Estab. patient 30-39min; chronic exacerbation, 2 stable chronic or 1 acute illness add add modifier 95 for video, (do not use for phone, instead use 08638-82) [facility] [place] 01/09/[place]23 Estab. patient 30-39min; chronic exacerbation, 2 stable chronic or 1 acute illness add add modifier 95 for video, (do not use for phone, instead use 65662-01) [facility] [place] 01/09/2023 Estab. patient 30-39min; chronic exacerbation, 2 stable chronic or 1 acute illness add add modifier 95 for video, (do not use for phone, instead use 75637-61) [facility] [place] 01/09/2023 Estab. patient 30-39min; chronic exacerbation, 2 stable chronic or 1 acute illness add add modifier 95 for video, (do not use for phone, instead use 72049-32) [facility] [place] 01/09/2023 Estab. patient 30-39min; chronic exacerbation, 2 stable chronic or 1 acute illness add add modifier 95 for video, (do not use for phone, instead use 81361-24) [facility] [place] 01/09/2023 Estab. patient 30-39min; chronic exacerbation, 2 stable chronic or 1 acute illness add add modifier 95 for video, (do not use for phone, instead use 29808-94) [facility] [place] 01/09/2023 Estab. patient 30-39min; chronic exacerbation, 2 stable chronic or 1 acute illness add add modifier 95 for video, (do not use for phone, instead use 20663-83) [facility] [place] 01/[place]/2023 RN, CN or CP time with patient by phone; use with 1111F, BP, A1c or other CPTII codes [facility] [place] 01/02/2023 Encounter for other specifie d aftercare RN, CN or CP time with patient by phone; use with 1111F, BP, A1c or other CPTII codes [facility] [place]2023 No Data Available [facility] [place] 03/[place]/2023 Other chest pain No Data Available [facility] [place] 04/02/2023 Chronic obstructive pulmonar y disease, unspecifiedChronic respiratory failure, unsp w hypoxia or hypercapniaSchizophrenia, unspecified No Data Available [facility] [place] 04[place]02[place]2023 No Data Available [facility] [place] 04/02/2023 No Data Available [facility] [place] 04/02/2023 No Data Available [facility] [place] 04/02/2023 No Data Available [facility] [place] 04/02/2023 No Data Available [facility] [place]/2023 Type 2 diabetes mellitus wit [...] status migrainosusAtherosclerosis of aorta No Data Available [facility] [place] 09/08/2023 No Data Available [facility] [place] 09/08/2023 No Data Available [facility] [place] 09/08/2023 No Data Available [facility] [place] 09/08/2023 No Data Available [facility] [place] 09/08/2023 No Data Available [facility] [place] 11/24/2023 Type 2 diabetes mellitus [...] and other health care No Data Available [facility] [place]/24/2023 No Data Available [facility] [place] 11/24/2023 No Data Available [facility] [place] 11/24/2023 No Data Available [facility] [place] 11/24/2023 No Data Available [facility] [place] 11/24/2023 RN, CN or CP time with patient by phone; use with 1111F, BP, A1c or other CPTII codes [facility] ([place] 11/20/2023 Encounter for other specifie d aftercare RN, CN or CP time with patient by phone; use with 1111F, BP, A1c or other CPTII codes [facility] [place] 11/20/2023 Vital Signs Date of Collection Vitals [...] tive Time Current Smoking Status Former smoker 2025-06-13 1 Sex Female History of Procedures Procedures Service [...] (do not use for phone, instead use 79581-44) 66899 2022-09-10 No Data Available No Data Availa ble Estab. patient 20-29min; 1 stable chronic or 2 minor; add add modifier 95 for video, modifier 93 for phone 20671 2022-10-03 No Data Available No Data Availa ble RN, CN or CP time with patient by phone; use with 1111F, BP, A1c or other CPTII codes 46781 2022-11-28 No Data Available No Data Avai lable Medications prescribed in hospital were reviewed and reconciled against what they were taking prior to admission during today's visit. (1111F) 1111F 2022-11-28 No Data Available No Data Availa ble No Data Available 27340 2022-12-03 No Data Available No Data Available Medications prescribed in hospital were reviewed and reconciled against what they were taking prior to admission during today's visit. (1111F) 1111F 2022-12-03 No Data Available No Data Availa ble Estab. patient 30-39min; chronic exacerbation, 2 stable chronic or 1 acute illness add add modifier 95 for video, (do not use for phone, instead use 56477-29) 72666 2023-01-09 No Data Available No Data Availa [...] 1111F, BP, A1c or other CPTII codes 29738 2023-01-02 No Data Available No Data Avai lable Medications prescribed in hospital were reviewed and reconciled against what they were taking prior to admission during today's visit. (1111F) 1111F 2023-01-02 No Data Available No Data Availa ble No Data Available [id number] 2023-03-28 No Data Available No Data Available No Data Available [id number] 2023-04-02 No Data Available No Data Available [...] No Data Avail able No Data Available 90209 2023-09-08 No Data Available No Data Available [...] No Data Availa ble No Data Available 96347 2023-11-24 No Data Available No Data Available [...] 1111F, BP, A1c or other CPTII codes 27212 2023-11-20 No Data Available No Data Patricia [...] Falls in last 6 Months: No 2022-09-10 [facility] only there for 9 hours 2023-11-24 Mental [...] E ducation to avoid future hospitalization: Call [facility] if symptoms of illness develop. COPD [...] or disease education needs that may arise.On AcmrztAmaawrwkutH0x- 7.5Encouraged regular exerciseLimit unhealthy foods and eat healthy mealsAvoid sugar-sweetened beverages. White bread, rice, pasta.Follows EndocrinologistDiscussed recommended a1c level- <7%CVA s a PCAAmbulates with a cane/walkerOn Anoro ElliptaSpirivaProAiron 3L 02 PRNFollows PulmonologistOn 3l 02Follows PulmonologistOn QuetiapineAripiprazoleDuloxetineFollows PsychiatristOn AmbienUses Ztlido patchOn Vitamin DOn FurosemideMetoprololWill monitor edema and weight, follows cardiologyOn AripiprazoleStableFollows PsychiatrKindred HealthcareFbxkzaIrbyiikiypV3z- 7.1Follows OphthalmologistOn OmeprazoleAvoid spicy, fatty or fried food, caffeine, chocolateAvoid lying down after mealsAvoid eating late at nightWears Pull-ups 2022-10-03 11:44:44 Televideo 20-29min; 1 stable chronic or 2 minor; add modifier 95Continue to see PCP. Follow-up with [facility] as needed for any acute or disease education needs that may arise 05/05.On MjwkflAevqzaqumdI2s- 7.1Encouraged regular exerciseLimit unhealthy foods and eat healthy mealsAvoid sugar-sweetened beverages. White bread, rice, pasta.Follows EndocrinologistDiscussed recommended a1c level- <7%CVA s a PCAAmbulates with a cane/walkerOn Anoro ElliptaSpirivaProAiron 3L 02 PRNFollows PulmonologistOn 3l 02Follows PulmonologistOn QuetiapineAripiprazoleDuloxetineFollows PsychiatristOn AmbienUses Ztlido patchOn Vitamin DOn FurosemideMetoprololWill monitor edema and weight, follows cardiologyOn AripiprazoleStableFollows PsychiatristOn AigvicMmabdghrnfM6y- 7.5Follows OphthalmologistOn OmeprazoleAvoid spicy, fatty or fried [...] or disease education needs that may arise.On RibmpfIprtchcmheJ7w- 7.1Encouraged regular exerciseLimit unhealthy foods and eat [...] Psychiatrist01/09/23: Continue current treatment plan as directed.On QcugltOfkyuejgynH2n- 7.5Follows OphthalmologistOn OmeprazoleAvoid spicy, fatty or fried [...] modifier 95)Continue to see PCP. Follow-up with [facility] as needed for any acute or [...] obtained (3008F)Continue to see PCP. [facility] [...] modifier 95)Continue to see PCP. Follow-up with [facility] as needed for any acute or disease education needs that may arise 05/05.On RpevgfXkrtssblnqA9i- 7.1Encouraged regular exerciseLimit unhealthy foods and eat [...] and fall precautions. Follow up as indicated.On DjitwcMuqpkrpgrwP2i- 7.5Follows OphthalmologistOn OmeprazoleAvoid spicy, fatty or fried food, caffeine, chocolateAvoid lying down after mealsAvoid eating late at night01/09/23: Continue current treatment plan as directed.has f/u visit 11/03/2023 Office Visit Gastroenterology Alber Benites PA-SHAKILAears Pull-ups+burning with voiding x months will f/u with AMMUNITION ASSEMBLY II LABORER 09/16/2023 Office Visit Obstetrics & Gynecology Clare [...] 8.4 202GFR 80 3CVA 2008Does not have [facility] 11/24/23Ambulates with a cane/walkerat risk for fallsFall prevention TIPS: Wear sensible shoes. Remove home hazards (Get rid of all rugs/mats in your home). Light up your living space (keep a flash light next to your bed for night time). Use assistive devices.ambulates with walkerOn Anoro ElliptaSpirivaProAiron 3L 02 Sole Refrigeration TechnicianCONTINGENCY PLANMember to call for the following symptoms: [...] agitationPlanned intervention: Contact mental health professional: psychiatry [phone] (Neeta)On quetiapinewith h/o delusions Follows Psychiatristfollowed by psychiatry [phone] (Neeta) ( member reports she does home [...] pneumoniae---sensitive to ceftriaxone) all uit symptoms resolved.On YockqzPfsfizczplV1y- 7.0 11/19/23Follows OphthalmologistOn OmeprazoleAvoid spicy, fatty or fried food, caffeine, chocolateAvoid lying down after mealsAvoid eating late at night01/09/23: Continue current treatment plan as directed.has f/u visit 11/03/2023 Office Visit Gastroenterology Alber Benites PA-Zulma Pull-ups+burning with voiding x months will f/u with AMMUNITION ASSEMBLY II LABORER 09/16/2023 Office Visit Obstetrics & Gynecology Clare [...] joint pain increased [facility] [...] ER visit(s) and precipitating factors: Hospital name: [facility] Hospital admission date: 11/16/2023 Hospital discharge date: [...] chills todayRN there 9-10am ---Member unable to brass pickler medications as she does not have [facility]. RN brought medications today. member unable to give me RN name or contact info. 2023-11-24 2 hours per day--no [facility] (does not have a [facility]) . email sent to [facility] cc re need for [facility] 2023-11-24 followed by tracie bonilla [phone] (Neeta) ( member reports she does home visits) 2023-11-24 unable to complete medication reconciliation; RN not available and member does not administer medications her self. 2023-11-24 medication list u pdated after review of Hosp records/medication list
--- OUTSIDE RECORDS SUMMARY | 2025-06-23 14:08 | XMS_ITS | Encounter Summary ---
[facility] Address [address] [place] [address] Care Team Providers Care Bridge Contractor Name Role Phone Ashwin Arzola MD Primary Care Provider [phone] Encounter Details Date Type Department Care Team (Late Contact Info) Description 01/19/2025 Billing Patient Not Present Adult Medicine [address] [phone] Ashwin Arzola MD [address] [place] [address] Social History Tobacco Use Types Packs/Day Years [...] 11:00 AM EDT Office Visit Adult Medicine [address] [phone] Jenna Escobar NP [address] [place] [address] 07/26/2025 10:30 AM EDT Office Visit Orthopedic Surgery - [place] [address] [facility] [address] [place] [phone] Linus Luna, DPM [address] [facility] [address] [place] [phone] 08/11/2025 10:35 AM EDT Office Visit Pulmonolgy - [place] [address] [facility] [address] [place] [phone] Cami Dupont, [place] [address] [place] [address] 08/15/2025 10:40 AM EST Office Visit [facility] [address] [facility] [address] [place] [phone] Hermelinda Marmolejo, [place] [address] [facility] [address] [place] [address] documented as of this encounter Visit Diagnoses Not on filedocumented in this encounter Care Teams Bridge Contractor Relationship Specialty Start Date End Date Ashwin Arzola MD [address] [place] [address] PCP - General Internal Medicine 08/01/20 documented as of this encounter
--- OUTSIDE RECORDS SUMMARY | 2025-06-23 14:09 | XMS_ITS | Clinical Summary ---
Author Organization [facility] Address [address] [facility] [address] [place] [address] Phone Care Team Providers Care Director Of Sustainability Name Role Phone Unavailable Primary Care Provider [...] file Medical Devices Not on file Insurance [facility] MEDIC[employer] REPLACEMENT [facility] MED[facility] REPLACEMENT MEDICARE REPLACEMENT [facility] MEDIC[facility] REPLACEMENT [facility] MEDIC[facility] REPLACEMENT [facility] MED[facility] REPLACEMENT Additional Source Comments The information contained in this document represents components of the legal health record. It is not the complete legal health record.[facility]
== END 2025-06-23 11:48 | disposition home or self-care (01) ==
LOC: HO.HGI 10:45
PROVIDERS: PCP Internal Medicine; Visit Provider Internal Medicine Gastroenterology
DX: K21.9 Gastro-esophageal reflux disease without esophagitis (principal); K63.5 Polyp of colon; K57.30 Diverticulosis of large intestine without perforation or abscess without bleeding; K59.09 Other constipation; R13.10 Dysphagia, unspecified; R13.14 Dysphagia, pharyngoesophageal phase
CPT/HCPCS: 99214

== ENCOUNTER 2025-06-23 10:45 | Outpatient (REF) | payer OTHER, SELFPAY ==
--- NOTE | ~2025-06-23 | XR_ITS ---
EXAMINATION: XR ABDOMEN 1 VIEW (KUB) HISTORY: K59.09 - Other constipation COMPARISON: Comparison is made with the prior examination dated 03/14/2024. FINDINGS: Two supine views of the abdomen are submitted. The bowel gas pattern is unremarkable, without evidence of mechanical obstruction. There is a large amount of stool throughout the colon. There are surgical clips in the right upper quadrant. There are phleboliths in the pelvis. There are no abnormal soft tissue masses. There is degenerative disc disease and levoscoliosis of the spine. XR/XR KUB IMPRESSION: Large amount of stool throughout the colon. Electronically signed by: Jerry Steele MD 06/23/2025 12:54 PM EDT
--- OUTSIDE RECORDS SUMMARY | 2025-06-23 16:23 | XMS_ITS | Encounter Summary ---
Author Organization [facility] Address [address] [place] [address] Care Team Providers Care Headwaiter/Headwaitress Name Role Phone Sujey Browning MD Primary Care Provider Un available Dudley Brown MD Primary Care Provider Unavail able Nancy Vines DO Primary Care Pro vider Unavailable Ashwin Arzola MD Primary Care Provider [phone] Sotero Connell MD Unavailable [phone] [facility] Hospital[facility] chand[facility] NP Unavailable [phone] Encounter Details Date Type Department Care Team Description 07/03/2016 [facility] Only Adult [address] [address] Sujey Browning MD Social History Tobacco Use [...] on filedocumented in this encounter Care Teams Headwaiter/Headwaitress Relationship Specialty Start Date End Date Sujey Browning MD PCP - General Internal Medicine 03/27/1608/02 Dudley Brown MD PCP - General Internal Medicine 08/03/19 04/12/20 Nancy Vines DO PCP - General Internal Medicine 04/13/20 07/31/20 Ashwin Arzola MD [address] [place] [address] PCP - General Internal Medicine 08/01/20 Sotero Connell MD [address] [place], [place] [phone] Specialist Cardiology 07/10/21 Blanco Edwards NP [address] [place], [place] [phone] Specialist Cardiology 08/02/22 documented as of this encounter
--- OUTSIDE RECORDS SUMMARY | 2025-06-23 16:24 | XMS_ITS | Encounter Summary ---
Author Organization [facility] Address [address] [place] [address] Care Team Providers Care Photo Colorer Name Role Phone Ashwin Arzola MD Primary Care Provider [phone] Sotero Connell MD Unavailable [phone] Blanco Edwards NP Unavailable [phone] Encounter Details Date Type Department Care Team Description 06/17/2023 Telephone Gastroenterology - [address] [place] [address] Alber Benites PA-C Social History Tobacco Use Types Packs/Day [...] suspected to have Coronavirus/COVID-19? No / Unsure 06/11/2023 11:27 AM EDT documented as of this encounter Miscellaneous Notes * Telephone Encounter - Hallie Jones M.A. - 07/02/2023 8:40 AM EDT Try calling patient phone was buesy * Telephone Encounter - Alber Benites PA-C - 07/01/2023 4:25 PM EDT So if she is having issues with her stomach and the breath test is negative, then we should consider prescribing medications for her if she is acceptable to the idea. Please let me know if she is okay with being prescribed omeprazole or Protonix and we will go from there * Telephone Encounter - Charmaine Lewis - 07/01/2023 2:34 PM EDT Patient had breath test done on 06/27 with negative result. Please advise on next steps, thanks. * Telephone Encounter - Hallie Jones M.A. - 07/01/2023 10:35 AM EDT Spoke to patient and gave biopsy results. She will go have breath test done. * Telephone Encounter - Alber Benites PA-C - 06/17/2023 4:44 PM EDT Patient is noted to have some irritation to her stomach lining and although the biopsy was negativeon the endoscopy, patient should undergo a breath test to see if the bacteria is there or not. Please advise patient that she needs to not eat for an hour before the breath test and she should not smoke either. She should not be on any PPI for 2 weeks but it does not appear that there is any on her list. We will be in touch with her when the breath test is found for the results. * Telephone Encounter - Alber Benites PA-C - 06/17/2023 4:44 PM EDT ----- Message from Caitlin Duque MD sent at 06/17/2023 2:37 PM EDT ----- Dear Ms. Keating The stomach biopsies taken during the endoscopy show mild inflammation which may have been caused by irritants. These irritants are such as gastric acid, bile, nonsteroidal medications example ibuprofen, Aleve, caffeine, nicotine or alcohol. Please try to avoid these irritants as much as possible. You may also use an qlfz-xjt-ivdroet acid reducing agent such as Pepcid, Tums, omeprazole etc. when necessary. Please follow up in order to discuss these findings with the referring physician at [facility] gastroenterology clinic. I would like to personally thank you for allowing us to take care of you. Please don't hesitate to call us for any questions or concerns. RegardsDayan MD Board Certified Gastroenterology and Internal Medicine Transplant Hepatology [facility] documented in this encounter Plan of Treatment Not on file documented as of this encounter Results * CHG HPYLORI BREATH ANAL UREASE ACT NON-RADACT ISTOPE (06/27/2023 11:44 AM EDT) BREATHTEK NEGATIVE NEGATIVE 06/27/2023 2:11 PM EDT [facility] 06/27/2023 11:4 4 AM EDT 06/27/2023 11:44 AM EDT Narrative [facility] - 06/27/2023 2:11 PM EDT Release to patient->Immediate Alber Benites PA-C LAB [facility] documented in this encounter Visit Diagnoses Diagnosis Gastritis without bleeding, unspecified chronicity, unspecified gastritis type- Primary documented in this encounter Care Teams Photo Colorer Relationship Specialty Start Date End Date Ashwin Arzola MD [address] [place] [address] PCP - General Internal Medicine 08/01/20 Sotero Connell MD [address] [place] [address] Specialist Cardiology 07/10/21 Blanco Edwards NP [address] [place] [address] Specialist Cardiology 08/02/22 documented as of this encounter
--- OUTSIDE RECORDS SUMMARY | 2025-06-23 16:24 | XMS_ITS | Encounter Summary ---
Author Organization [facility] Address [address] [place] [address] Care Team Providers Care Dental Equipment Installer And Servicer Name Role Phone Ashwin Arzola MD Primary Care Provider [phone] Sotero Connell MD Unavailable [phone] Blanco Edwards NP Unavailable [phone] Encounter Details Date Type Department Care Team Description 03/01/2021 Orders Only Adult Medicine [facility] [address] [place] [address] [phone] Ashwin Arzola MD [address] [place] [address] [id number] Imbalance Social History Tobacco Use Types Packs/Day Years [...] Procedure Name Priority Date/Time Associated Diagnosis Comments MRI OF BRAIN WITH AND WITHOU T CONTRAST Routine 02/27/2021 Imbalance documented in this encounter Results * MRI OF BRAIN WITH AND WITHOUT CONTRAST (02/27/2021) Ashwin Arzola MD MRI [address] documented in this encounter Visit Diagnoses Diagnosis Imbalance Abnormality of gait documented in this encounter Care Teams Dental Equipment Installer And Servicer Relationship Specialty Start Date End Date Ashwin Arzola MD [address] [place] [address] 13119 PCP - General Internal Medicine 08/01/20 Sotero Connell MD [address] [place] [address] [phone] Specialist Cardiology 07/10/21 Blanco Edwards NP [address] [place] [address] [phone] Specialist Cardiology 08/02/22 documented as of this encounter
--- OUTSIDE RECORDS SUMMARY | 2025-06-23 16:24 | XMS_ITS | Encounter Summary ---
Author Organization [facility] Address [address] [place] [address] Care Team Providers Care Vulcanized Fiber Unit Operator Name Role Phone Sujey Browning MD Primary Care Provider Un available Dudley Brown MD Primary Care Provider Unavail able Nancy Vines DO Primary Care Pro vider Unavailable Ashwin Arzola MD Primary Care Provider [phone] Sotero Connell MD Unavailable [phone] [facility] Unavailable [phone] Reason for Visit * Reason Onset Date Comments Prior Authorization 06/07/2016 Encounter Details Date Type Department Care Team Description 06/07/2016 Telephone Adult Medicine [address] [phone] Sujey Browning MD Prior Authorization Social History [...] Thank you Please reply back to p [phone] prior authorization amirah Lopez C.M.A. [facility] Prior Authorizations Ext: [phone] * Telephone Encounter - Viri Chase - 06/07/2016 1:28 PM EDT Pre Authorization for Medication Does the patient already have this medication?NO Is this a Cover My Meds request: [place] of Medication carisoprodol (SOMA) 350 MG tablet Dose of Medication How does patient take this med? What other dosage or similar medication have you tried in the past for this problem Patients current medical [place] [facility] [place] What Prescription Plan does the patient have? Prescription Plan Tel # from back of prescription ID card [phone] What is the patients Prescription Plan ID #? [id number] What Pharmacy does the patient use? [facility] / Plan: FFS HMO $0 [place] [id number] / Product Type: MEDICAID RISK documented in this encounter Plan of Treatment Not on file documented as of this encounter Visit Diagnoses Not on filedocumented in this encounter Care Teams Vulcanized Fiber Unit Operator Relationship Specialty Start Date End Date Sujey Browning MD PCP - General Internal Medicine 03/27/1608/02 Dudley Brown MD PCP - General Internal Medicine 08/03/19 04/12/20 Nancy Vines DO PCP - General Internal Medicine 04/13/20 07/31/20 Ashwin Arzola MD [address] [place] [address] 83232 PCP - General Internal Medicine 08/01/20 Sotero Connell MD [address] [place] [address] [phone] Specialist Cardiology 07/10/21 Blanco Edwards NP [address] [place] [address] 81465 Specialist Cardiology 08/02/22 documented as of this encounter
--- OUTSIDE RECORDS SUMMARY | 2025-06-23 16:24 | XMS_ITS | Encounter Summary ---
Author Organization [facility] Address [address] [place] [address] Care Team Providers Care Segmental Wall Installer Name Role Phone Ashwin Arzola MD Primary Care Provider [phone] Sotero Connell MD Unavailable [phone] Blanco Edwards NP Unavailable [phone] Encounter Details Date Type Department Care Team Description 12/14/2020 Orders Only Adult Medicine [address] [address] Willow Monique PA-C LLQ pain; BRBPR (bright [...] Monique PA-C CT SCANS Performing Organization Address City/State/[facility] Co de Phone Number [facility] [address] [place] [address] documented in this encounter Visit Diagnoses Diagnosis LLQ pain Abdominal pain, left lower quadrant BRBPR (bright red blood per rectum) Hemorrhage of rectum and anus documented in this encounter Care Teams Segmental Wall Installer Relationship Specialty Start Date End Date Ashwin Arzola MD [address] [place] [address] 51987 PCP - General Internal Medicine 08/01/20 Sotero Connell MD [address] [place] [address] 17767 Specialist Cardiology 07/10/21 Blanco Edwards NP [address] [place] [address] [phone] Specialist Cardiology 08/02/22 documented as of this encounter
--- OUTSIDE RECORDS SUMMARY | 2025-06-23 16:24 | XMS_ITS | Encounter Summary ---
Author Organization [facility] Address [address] [place] [address] Care Team Providers Care Kier Boiler Name Role Phone Ashwin Arzola MD Primary Care Provider [phone] Sotero Connell MD Unavailable [phone] Blanco Edwards MENTAL RETARDATION NURSE Unavailable [phone] Encounter Details Date Type Department Care Team Description 12/06/2020 Old Medical Records Medical Records [address] [place] [address] 23539 Abstract, Provider Social History Tobacco Use Types [...] have Coronavirus / COVID-19? No / Unsure 11/24/2020 8:32 AM EST documented as of this encounter Plan of Treatment Not on file documented as of this encounter Visit Diagnoses Not on filedocumented in this encounter Care Teams Kier Boiler Relationship Specialty Start Date End Date Ashwin Arzola MD [address] [place] [address] [phone] PCP - General Internal Medicine 08/01/20 Sotero Connell MD [address] [place] [address] 01020 Specialist Cardiology 07/10/21 Blanco Edwards NP [address] [place] [address] 01020 Specialist Cardiology 08/02/22 documented as of this encounter
--- OUTSIDE RECORDS SUMMARY | 2025-06-23 16:24 | XMS_ITS | Encounter Summary ---
Author Organization [facility] Address [address] [place] [address] Care Team Providers Care Training Development Director Name Role Phone Ashwin Arzola MD Primary Care Provider Sotero Connell MD Unavailable [phone] Blanco Edwards NP Unavailable [phone] Reason for Referral * Non MIKE (Routine) - Unable to reach/declined Specialty Diagnoses / Procedures Referred By Contac t Referred To Contact ORTHOPEDICS / Orthopedic Diagnoses Calcific tendonitis of right shoulder Procedures REFERRAL TO ORTHOPEDICS (IN NETWORK) Ashwin Arzola MD [address] [place] [address] Hallie Reyes MD [address] [place] [address] Referral ID Status Reason Start Date Expiration Date V isits Requested Visits Authorized [id number] Unable to reach/declin ed 02/07/2023 02/07/2024 1 1 Encounter Details Date Type Department Care Team Description 02/07/2023 Telephone Adult Medicine [address] [phone] Ashwin Arzola MD [address] [place] [address] Social History Tobacco Use Types Packs/Day Years [...] suspected to have Coronavirus/COVID-19? No / Unsure 02/06/2023 10:37 AM EDT documented as of this encounter Plan of Treatment Not on file documented as of this encounter Visit Diagnoses Diagnosis Calcific tendonitis of right shoulder- Primary documented in this encounter Care Teams Training Development Director Relationship Specialty Start Date End Date Ashwin Arzola MD [address] [place] [address] 8[address] PCP - General Internal Medicine 08/01/20 Sotero Connell MD [address] [place] [address]20 Specialist Cardiology 07/10/21 Blanco Edwards NP [address] [place] [address] [phone] Specialist Cardiology 08/02/22 documented as of this encounter
--- OUTSIDE RECORDS SUMMARY | 2025-06-23 16:24 | XMS_ITS | Encounter Summary ---
Author Organization [facility] Address [address] [place] [address] Care Team Providers Care Software Licensing Executive Name Role Phone Ashwin Arzola MD Primary Care Provider [phone] Sotero Connell MD Unavailable [phone] Blanco Edwards NP Unavailable [phone] Encounter Details Date Type Department Care Team Description 06/19/2021 Hospital Medical Records [address] [place] [address] Social History Tobacco Use Types Packs/Day Years [...] Date/Time Associated Diagnosis Comments OUTSIDE LAB Routine 06/21/[address] Routine 06/19/2021 OUTSIDE PLAIN FILM Routine 06/18/2021 documented in this encounter Results * OUTSIDE LAB (06/21/2021) Provider Default LAB * OUTSIDE CT (06/19/2021) Provider Default RADIOLOGY * OUTSIDE PLAIN FILM (06/18/2021) Provider Default RADIOLOGY documented in this encounter Visit Diagnoses Not on filedocumented in this encounter Care Teams Software Licensing Executive Relationship Specialty Start Date End Date Ashwin Arzola MD [address] [place] [address] PCP - General Internal Medicine 08/01/20 Sotero Connell MD [address] [place] [address] 0[address]20 Specialist Cardiology 07/10/21 Blanco Edwards NP [address] [place] [address] [phone] Specialist Cardiology 08/02/22 documented as of this encounter
--- OUTSIDE RECORDS SUMMARY | 2025-06-23 16:24 | XMS_ITS | Encounter Summary ---
Author Organization [facility] Address [address] [place] [address] Care Team Providers Care Library Sales Consultant Name Role Phone Ashwin Arzola MD Primary Care Provider [phone] Sotero Connell MD Unavailable [phone] Blanco Edwards NP Unavailable [phone] Encounter Details Date Type Department Care Team Description 05/27/2023 Spring Coiler Report Medical Records [address] [place] [address] Linda Hood Social History Tobacco Use Types Packs/Day Years [...] on filedocumented in this encounter Care Teams Library Sales Consultant Relationship Specialty Start Date End Date Ashwin Arzola MD [address] [place] [address] [phone] PCP - General Internal Medicine 08/01/20 Sotero Connell MD [address] [place] [address]20 Specialist Cardiology 07/10/21 Blanco Edwards NP [address] [place] [address] [phone] Specialist Cardiology 08/02/22 documented as of this encounter
--- OUTSIDE RECORDS SUMMARY | 2025-06-23 16:24 | XMS_ITS | Encounter Summary ---
Author Organization [facility] Address [address] [place] [address] Care Team Providers Care Health Economist Name Role Phone Ashwin Arzola MD Primary Care Provider [phone] Sotero Connell MD Unavailable [phone] Blanco Edwards NP Unavailable [phone] Encounter Details Date Type Department Care Team Description 03/05/2021 Telephone Adult Medicine [facility] [address] [place] [address] [phone] Ashwin Arzola MD [address] [place] [address] [phone] Social History Tobacco Use Types Packs/Day Years [...] have Coronavirus / COVID-19? No / Unsure 03/07/2021 3:53 PM EDT documented as of this encounter Miscellaneous Notes * Telephone Encounter - Sasha Chirinos M.A. - 03/05/2021 1:08 PM EDT I booked appointment with Ivy Patel. Will forward to her as a FYI * Telephone Encounter - Ashwin Arzola MD - 03/05/2021 11:23 AM EDT Please schedule pt for appointment with week ok to book with pa Pt with lower ext edema with hx of chf pt needs to be evaluated for fluid overload documented in this encounter Plan of Treatment Not on file documented as of this encounter Visit Diagnoses Not on filedocumented in this encounter Care Teams Health Economist Relationship Specialty Start Date End Date Ashwin Arzola MD [address] [place] [address] 32235 PCP - General Internal Medicine 08/01/20 Sotero Connell MD [address] [place] [address] 49741 Specialist Cardiology 07/10/21 Blanco Edwards NP [address] [place] [address] 48886 Specialist Cardiology 08/02/22 documented as of this encounter
--- OUTSIDE RECORDS SUMMARY | 2025-06-23 16:24 | XMS_ITS | Encounter Summary ---
Author Organization [facility] Address [address] [place] [address] Care Team Providers Care Community Cultural Development Officer Name Role Phone Name, Braulio CHIANG Primary Care Provider Unavailabl Dudley Mancuso MD Primary Care Provider Unavail able Ajit Montanez MD Primary Care Provide r Unavailable Sujey Browning MD Primary Care Provider Un available Dudley Brown MD Primary Care Provider Unavail able Nancy Vines DO Primary Care Pro vider Unavailable Ashwin Arzola MD Primary Care Provider [phone] Sujey Browning MD Primary Care Provider Un available Sotero Connell MD Unavailable [phone] Blanco Edwards NP Unavailable Reason for Visit * Reason Onset Date Comments refill request 01/15/2012 Encounter Details Date Type Department Care Team Description 01/15/2012 Refill Adult Medicine [address] [phone] Name, MD Braulio refill request Social History [...] I call pharm, patient did not speak wolof, insulin syringes are 1 ml, 30 G, [...] the request. Patients current insurance carrier: Payor: [facility] FFS Plan: FFS HMO $0 [id number] Product Type: MEDICAID RISK documented in this encounter Plan of Treatment Not on file documented as of this encounter Visit Diagnoses Not on filedocumented in this encounter Care Teams Community Cultural Development Officer Relationship Specialty Start Date End Date Name, [...] - General Internal Medicine 04/13/20 07/31/20 Ashwin Arzoal MD [address] [place] [address] [phone] PCP - General Internal Medicine 08/01/20 Sujey Browning MD PCP - General 07/03/15 11/12/15 Sotero Connell MD [address] [place] [address]1020 Specialist Cardiology 07/10/21 Blanco Edwards NP [address] [place] [address] [phone] Specialist Cardiology 08/02/22 documented as of this encounter
--- OUTSIDE RECORDS SUMMARY | 2025-06-23 16:24 | XMS_ITS | Encounter Summary ---
Author Organization [facility] Address [address] [place] [address] Care Team Providers Care Spooling Machine Operator Name Role Phone Name, Braulio CHIAGN Primary Care Provider Unavailabl Dudley Mancuso MD Primary Care Provider Unavail able Ajit Montanez MD Primary Care Provide r Unavailable Sujey Browning MD Primary Care Provider Un available Dudley Brown MD Primary Care Provider Unavail able Nancy Vines DO Primary Care Pro vider Unavailable Ashwin Arzola MD Primary Care Provider [phone] Sujey Browning MD Primary Care Provider Un available Sotero Connell MD Unavailable [phone] Blanco Edwards NP Unavailable [phone] Encounter Details Date Type Department Care Team Description 03/06/2012 Orders Only Adult Medicine [address] [address] Name, MD Braulio JOSÉ (obstructive sleep apnea) [...] (pediatric) documented in this encounter Care Teams Spooling Machine Operator Relationship Specialty Start Date End [...] Medicine 04/13/20 07/31/20 Ashwin Arzola MD [address] [place] [address] PCP - General Internal Medicine 08/01/20 Sujey Browning MD PCP - General 07/03/15 11/12/15 Sotero Connell MD [address] [place] [address]9977 Specialist Cardiology 07/10/21 Blanco Edwards NP [address] [place] [address]1587 Specialist Cardiology 08/02/22 documented as of this encounter
--- OUTSIDE RECORDS SUMMARY | 2025-06-23 16:24 | XMS_ITS | Encounter Summary ---
Author Organization [facility] Address [address] [place] [address] Care Team Providers Care Cnc Applications Engineer Name Role Phone Ashwin Arzola MD Primary Care Provider [phone] Sotero Connell MD Unavailable [phone] Blanco Edwards NP Unavailable [phone] Reason for Visit * Reason Onset Date Comments Sleep Study 08/29/2023 Requested Encounter Details Date Type Department Care Team Description 08/29/2023 Telephone Pulmonology [address] [place] [address] Blane Shah MD Sleep Study (Requested) Social History Tobacco Use Types Packs/Day Years [...] suspected to have Coronavirus/COVID-19? No / Unsure 08/05/2023 10:13 AM EDT documented as of this encounter Miscellaneous Notes * Telephone Encounter - Tammy Aceves CMA - 10/03/2023 1:09 PM EST Sleep study received and place on the review folder for provider * Telephone Encounter - Tammy Aceves CMA - 10/03/2023 10:52 AM EST Sleep study request for the second time * Telephone Encounter - Tammy Aceves CMA - 08/29/2023 3:59 PM EST Sleep study requested from SMS documented in this encounter Plan of Treatment Not on file documented as of this encounter Visit Diagnoses Not on filedocumented in this encounter Care Teams Cnc Applications Engineer Relationship Specialty Start Date End Date Ashwin Arzola MD [address] [place] [address] 61794 PCP - General Internal Medicine 08/01/20 Sotero Connell MD [address] [place] [address] 83803 Specialist Cardiology 07/10/21 Blanco Edwards NP [address] [place] [address] Specialist Cardiology 08/02/22 documented as of this encounter
--- OUTSIDE RECORDS SUMMARY | 2025-06-23 16:24 | XMS_ITS | Encounter Summary ---
Author Organization [facility] Address [address] [place] [address] Care Team Providers Care Rug Designer Name Role Phone Ashwin Arzola MD Primary Care Provider [phone] Sotero Connell MD Unavailable [phone] Blanco Edwards NP Unavailable [phone] Reason for Visit * Reason Onset Date Comments Medication 12/18/2020 colon Encounter Details Date Type Department Care Team Description 12/18/2020 Refill Gastroenterology [facility] [address] [facility] [address] [place] [address] Amber Duque MD [address] [place] [address] [phone] Medication (colon) Social History Tobacco Use Types Packs/Day Years [...] on filedocumented in this encounter Care Teams Rug Designer Relationship Specialty Start Date End Date Ashwin Arzola MD [address] [place] [address]20 PCP - General Internal Medicine 08/01/20 Sotero Connell MD [address] [place] [address] Specialist Cardiology 07/10/21 Blanco Edwards NP [address] [place], [place] [phone] Specialist Cardiology 08/02/22 documented as of this encounter
--- OUTSIDE RECORDS SUMMARY | 2025-06-23 16:24 | XMS_ITS | Encounter Summary ---
Author Organization [facility] Address [address] [place] [address] Care Team Providers Care Wig Maker Name Role Phone Name, Braulio CHIANG Primary Care Provider Unavailabl Dudley Mancuso MD Primary Care Provider Unavail able Ajit Montanez MD Primary Care Provide r Unavailable Sujey Browning MD Primary Care Provider Un available Dudley Brown MD Primary Care Provider Unavail able Nancy Vines DO Primary Care Pro vider Unavailable Ashwin Arzola MD Primary Care Provider [phone] Sujey Browning MD Primary Care Provider Un available Sotero Connell MD Unavailable [phone] Blanco Edwards NP Unavailable [phone] Reason for Visit * Reason Onset Date Comments DME Request 08/27/2013 Encounter Details Date Type Department Care Team Description 08/27/2013 Telephone Adult [address] [address] Name, MD Braulio DME Request Social History Tobacco Use Types Packs/Day [...] Telephone Encounter - Deepti Early M.A. - 08/27/2013 5:34 PM EST Last visit notes printed, and awaiting signed order for cushion. * Telephone Encounter - Leonila Wagner - 08/27/2013 9:15 AM EST Name of Product: Wheelchair cushion Specific information about product # Needed 1 Reason/Diagnosis: Patient Active Problem List Diagnosis Code ??? Obesity 278.00 ??? HTN (hypertension) 401.9 ??? High cholesterol 272.0 ??? DM (diabetes mellitus), type 2, uncontrolled 250.02 ??? DJD (degenerative joint disease), lumbar 722.52 ??? JOSÉ (obstructive sleep apnea) 327.23 ??? COPD (chronic obstructive pulmonary disease) 496 ??? Seronegative rheumatoid arthritis 714.0 ??? CTS (carpal tunnel syndrome) 354.0 ??? Pulmonary nodules 793.19 ??? Bipolar disorder 296.80 ??? Diabetic neuropathy 250.60, 357.2 When completed: Fax to other office/MD at fax # [facility] Infusion documented in this encounter Plan of Treatment Not on file documented as of this encounter Visit Diagnoses Diagnosis Seronegative rheumatoid arthritis (HCC) Rheumatoid arthritis DJD (degenerative joint disease), lumbar Degeneration of lumbar or lumbosacral intervertebral disc Diabetic neuropathy (HCC) Type II or unspecified type diabetes mellitus with neurological manifestations, not stated as uncontrolled documented in this encounter Care Teams Wig Maker Relationship Specialty Start Date End Date [...] Internal Medicine 04/13/20 07/31/20 Ashwin Arzola MD [address] [place] [address]20 PCP - General Internal Medicine 08/01/20 Sujey Browning MD PCP - General 07/03/15 11/12/15 Sotero Connell MD [address] [place] [address] [phone] Specialist Cardiology 07/10/21 Blanco Edwards NP [address] [place] [address] [phone] Specialist Cardiology 08/02/22 documented as of this encounter
--- OUTSIDE RECORDS SUMMARY | 2025-06-23 16:24 | XMS_ITS | Encounter Summary ---
Author Organization [facility] Address [address] [place] [address] Care Team Providers Care Endocrinology Physician Name Role Phone Sujey Browning MD Primary Care Provider Un available Dudley Brown MD Primary Care Provider Unavail able Nancy Vines DO Primary Care Pro vider Unavailable Ashwin Arzola MD Primary Care Provider [phone] Sotero Connell MD Unavailable [phone] [facility] Unavailable [phone] Reason for Visit * Reason Onset Date Comments Marie Special Procedure Gi 08/13/2016 Encounter Details Date Type Department Care Team Description 08/13/2016 Telephone Gastroenterology - [address] [address] Omid Grijalva MD [facility] Social History Tobacco Use Types Packs/Day Years [...] encounter Miscellaneous Notes * Telephone Encounter - Hetal Felipe - 09/03/2016 10:53 AM EST Patient has been reshceuled to 10/29/2016 8:30 am arrival 9:30 am procedure Spoke with Kelly ceballos r/s. Booking sheet with new date and time faxed to surgical booking And Sallie * Telephone Encounter - Sidra Petit - 08/13/2016 11:40 AM EDT Patient referred by Dr Grijalva for procedure EGD at [facility] GI with Dr Coreas on 09/03/16 Arrival time 10am procedure time 11am. Faxed insurance and demographics to [facility] and received confirmation fax. Pt's case number is [id number] documented in this encounter Plan of Treatment Not on file documented as of this encounter Visit Diagnoses Not on filedocumented in this encounter Care Teams Endocrinology Physician Relationship Specialty Start Date End Date Sujey Browning MD PCP - General Internal Medicine 03/27/1608/02 Dudley Brown MD PCP - General Internal Medicine 08/03/19 04/12/20 Nancy Vines DO PCP - General Internal Medicine 04/13/20 07/31/20 Ashwin Arzola MD [address] [place] [address] PCP - General Internal Medicine 08/01/20 Sotero Connell MD [address] [place] [address] 786[address] Specialist Cardiology 07/10/21 Blanco Edwards NP [address] [place] [address] Specialist Cardiology 08/02/22 documented as of this encounter
--- OUTSIDE RECORDS SUMMARY | 2025-06-23 16:24 | XMS_ITS | Encounter Summary ---
Author Organization [facility] Address [address] [place] [address] Care Team Providers Care Cloud Developer Name Role Phone Name, Braulio CHIANG Primary Care Provider Unavailabl Dudley Mancuso MD Primary Care Provider Unavail able Ajit Montanez MD Primary Care Provide r Unavailable Sujey Browning MD Primary Care Provider Un available Dudley Brown MD Primary Care Provider Unavail able Nancy Vines DO Primary Care Pro vider Unavailable Ashwin Arzola MD Primary Care Provider [phone] Sujey Browning MD Primary Care Provider Un available Sotero Connell MD Unavailable [phone] Blanco Edwards NP Unavailable [phone] Encounter Details Date Type Department Care Team Description 09/30/2013 [facility] Medical Records [address] [place] [address] Vangie Murdock Social History Tobacco Use Types [...] on filedocumented in this encounter Care Teams Cloud Developer Relationship Specialty Start Date End Date Name, [...] Internal Medicine 04/13/20 07/31/20 Ashwin Arzola MD [address] [place] [address] [id number] PCP - General Internal Medicine 08/01/20 Sujey Browning MD PCP - General 07/03/15 11/12/15 Sotero Connell MD [address] [place] [address] [phone] Specialist Cardiology 07/10/21 Blanco Edwards NP [address] [place] [address] 66542 Specialist Cardiology 08/02/22 documented as of this encounter
--- OUTSIDE RECORDS SUMMARY | 2025-06-23 16:24 | XMS_ITS | Encounter Summary ---
Author Organization [facility] Address [address] [place] [address] Care Team Providers Care Model Dresser Name Role Phone Sujey Browning MD Primary Care Provider Un available Dudley Brown MD Primary Care Provider Unavail able Nancy Vines DO Primary Care Pro vider Unavailable Ashwin Arzola MD Primary Care Provider [phone] Sotero Connell MD Unavailable Blanco Edwards NP Unavailable [phone] Reason for Visit * Reason Onset Date Comments APPOINTMENT 05/18/2018 Encounter Details Date Type Department Care Team Description 05/18/2018 Telephone OBGYN - [place] [address] [place] [address] Clare Simon MD [address] [place] [address] [phone] APPOINTMENT Social History Tobacco Use Types Packs/Day [...] for an ultrasound from todays visit. Please advanced manufacturing consultant her a call. documented in this encounter Plan of Treatment Not on file documented as of this encounter Results * SONO PELVIS COMPLETE (06/04/2018 10:39 AM EDT) 06/04/2018 1:49 PM EDT Narrative [place] OTHER EXTERNAL - 06/04/2018 1:50 PM EDT Pelvic ultrasound. History: Pelvic pain.. COMPARISON:Not available. The pelvis was scanned transabdominally for maximum [id number], and then transvaginally for optimum delineation of the uterus and ovaries. Uterus is surgically absent. Neither right or left ovary were identified. There is no fluid in the cul-de-sac. There is no adnexal masses. CONCLUSIONS: Status post hysterectomy. Nonvisualization of the ovaries. Procedure Note Pearl Arriola MD - 06/04/2018 Pelvic ultrasound. History: Pelvic pain.. COMPARISON:Not available. The pelvis was scanned transabdominally for maximum [id number], andthen transvaginally for optimum delineation of the [...] pain documented in this encounter Care Teams Model Dresser Relationship Specialty Start Date End Date Sujey Browning MD PCP - General Internal Medicine 03/27/1608/02 Dudley Brown MD PCP - General Internal Medicine 08/03/19 04/12/20 Nancy Vines DO PCP - General Internal Medicine 04/13/20 07/31/20 Ashwin Arzola MD [address] [place] [address] 23576 PCP - General Internal Medicine 08/01/20 Sotero Connell MD [address] [place] [address] 06527 Specialist Cardiology 07/10/21 Blanco Edwards NP [address] [place] [address] 66784 Specialist Cardiology 08/02/22 documented as of this encounter
--- OUTSIDE RECORDS SUMMARY | 2025-06-23 16:24 | XMS_ITS | Encounter Summary ---
Author Organization [facility] Address [address] [place] [address] Care Team Providers Care Naturopathic Doctor Name Role Phone Ashwin Arzola MD Primary Care Provider [phone] Sotero Connell MD Unavailable [phone] Blanco Edwards NP Unavailable [phone] Encounter Details Date Type Department Care Team Description 06/24/2023 Orders Only Medical Records [address] [place] [address] Abstract, Provider Social History Tobacco Use Types [...] suspected to have Coronavirus/COVID-19? No / Unsure 06/27/2023 11:44 AM EDT documented as of this encounter Plan of Treatment Not on file documented as of this encounter Procedures Procedure Name Priority Date/Time Associated Diagnosis Comments OUTSIDE ULTRASOUND Routine 06/23/2023 documented in this encounter Results * OUTSIDE ULTRASOUND (06/23/2023) Provider Abstract RADIOLOGY documented in this encounter Visit Diagnoses Not on filedocumented in this encounter Care Teams Naturopathic Doctor Relationship Specialty Start Date End Date Ashwin Arzola MD [address] [place] [address] [phone] PCP - General Internal Medicine 08/01/20 Sotero Connell MD [address] [place] [address] Specialist Cardiology 07/10/21 Blanco Edwards NP [address] [place] [address] [phone] Specialist Cardiology 08/02/22 documented as of this encounter
--- OUTSIDE RECORDS SUMMARY | 2025-06-23 16:24 | XMS_ITS | Encounter Summary ---
Author Organization [facility] Address [address] [place] [address] Care Team Providers Care Driver/Merchandiser Name Role Phone Name, Braulio CHIANG Primary Care Provider Unavailabl Dudley Mancuso MD Primary Care Provider Unavail able Ajit Montanez MD Primary Care Provide r Unavailable Sujey Browning MD Primary Care Provider Un available Dudley Brown MD Primary Care Provider Unavail able Nancy Vines DO Primary Care Pro vider Unavailable Ashwin Arzola MD Primary Care Provider [phone] Sujey Browning MD Primary Care Provider Un available Sotero Connell MD Unavailable [phone] Blanco Edwards NP Unavailable [phone] Reason for Visit * Reason Onset Date Comments VNA Call 09/01/2013 Encounter Details Date Type Department Care Team Description 09/01/2013 Telephone Adult [address] [phone] Braulio Loyola MD VNA Call Social History [...] and wheel chair cushion. [facility] infusion[facility] * Telephone Encounter - Enid Avery - 09/01/2013 9:59 AM EST VNA CALL Which VNA office is calling? [facility] Full name of caller: Terri Doll [...] disc documented in this encounter Care Teams Driver/Merchandiser Relationship Specialty Start Date End Date Name, [...] Medicine 04/13/20 07/31/20 Ashwin Arzola MD [address] [place] [address] 25808 PCP - General Internal Medicine 08/01/20 Sujey Browning MD PCP - General 07/03/15 11/12/15 Sotero Connell MD [address] [place] [address] [phone] Specialist Cardiology 07/10/21 Blanco Edwards NP [address] [place] [address] [phone] Specialist Cardiology 08/02/22 documented as of this encounter
--- OUTSIDE RECORDS SUMMARY | 2025-06-23 16:24 | XMS_ITS | Encounter Summary ---
Author Organization [facility] Address [address] [place] [address] Care Team Providers Care Human Resources Administrator Name Role Phone Name, Braulio CHIANG Primary Care Provider Unavailabl Dudley Mancuso MD Primary Care Provider Unavail able Ajit Montanez MD Primary Care Provide r Unavailable Sujey Browning MD Primary Care Provider Un available Dudley Brown MD Primary Care Provider Unavail able Nancy Vines DO Primary Care Pro vider Unavailable Ashwin Arzola MD Primary Care Provider [phone] Sujey Browning MD Primary Care Provider Un available Sotero Connell MD Unavailable [phone] Blanco Edwards NP Unavailable [phone] Encounter Details Date Type Department Care Team Description 03/31/2012 [facility] Medical Records [address] [place] [address] Shawn Holman Social History Tobacco Use Types [...] on filedocumented in this encounter Care Teams Human Resources Administrator Relationship Specialty Start Date End Date Name, [...] Internal Medicine 04/13/20 07/31/20 Ashwin Arzola MD [address] [place] [address] [phone] PCP - General Internal Medicine 08/01/20 Sujey Browning MD PCP - General 07/03/15 11/12/15 Sotero Connell MD [address] [place] [address] [phone] Specialist Cardiology 07/10/21 Blanco Edwards NP [address] [place] [address] Specialist Cardiology 08/02/22 documented as of this encounter
--- OUTSIDE RECORDS SUMMARY | 2025-06-23 16:24 | XMS_ITS | Encounter Summary ---
Author Organization [facility] Address [address] [place] [address] Care Team Providers Care Tie Presser Name Role Phone Sujye Browning MD Primary Care Provider Un available Dudley Brown MD Primary Care Provider Unavail able Nancy Vines DO Primary Care Pro vider Unavailable Ashwin Arzola MD Primary Care Provider [phone] Sotero Connell MD Unavailable [phone] [facility] Unavailable [phone] Encounter Details Date Type Department Care Team Description 06/21/2016 Release of Information Medical Records [address] [place] [address] Abstract, Provider Social History Tobacco Use Types [...] on filedocumented in this encounter Care Teams Tie Presser Relationship Specialty Start Date End Date Sujey Browning MD PCP - General Internal Medicine 03/27/1608/02 Dudley Brown MD PCP - General Internal Medicine 08/03/19 04/12/20 Nancy Vines DO PCP - General Internal Medicine 04/13/20 07/31/20 Ashwin Arzola MD [address] [place] [address] [phone] PCP - General Internal Medicine 08/01/20 Sotero Connell MD [address] [place] [address] [phone] Specialist Cardiology 07/10/21 Blanco Edwards NP [address] [place] [address] [phone] Specialist Cardiology 08/02/22 documented as of this encounter
--- OUTSIDE RECORDS SUMMARY | 2025-06-23 16:24 | XMS_ITS | Encounter Summary ---
Author Organization [facility] Address [address] [place] [address] Care Team Providers Care Home Visit Field Care Manager Name Role Phone Sujey Browning MD Primary Care Provider Un available Dudley Brown MD Primary Care Provider Unavail able Nancy Vines DO Primary Care Pro vider Unavailable Ashwin Arzola MD Primary Care Provider [phone] Sotero Connell MD Unavailable [phone] Blanco Edwards NP Unavailable [phone] Reason for Visit * Reason Onset Date Comments Faxed Order 07/25/2016 Encounter Details Date Type Department Care Team Description 07/25/2016 Telephone Adult Medicine [address] [address] Sujey Browning MD Faxed Order Social History [...] to be signed and fax back to [phone]. documented in this encounter Plan of Treatment Not on file documented as of this encounter Visit Diagnoses Not on filedocumented in this encounter Care Teams Home Visit Field Care Manager Relationship Specialty Start Date End Date Sujey Browning MD PCP - General Internal Medicine 03/27/1608/02 Dudley Brown MD PCP - General Internal Medicine 08/03/19 04/12/20 Nancy Vines DO PCP - General Internal Medicine 04/13/20 07/31/20 Ashwin Arzola MD [address] [place] [address] [phone] PCP - General Internal Medicine 08/01/20 Sotero Connell MD [address] [place] [address] [phone] Specialist Cardiology 07/10/21 Blanco Edwards NP [address] [place] [address] [phone] Specialist Cardiology 08/02/22 documented as of this encounter
--- OUTSIDE RECORDS SUMMARY | 2025-06-23 16:24 | XMS_ITS | Encounter Summary ---
Author Organization [facility] Address [address] [place] [address] Care Team Providers Care Mold Yard Crane Operator Name Role Phone Sujey Browning MD Primary Care Provider Un available Dudley Brown MD Primary Care Provider Unavail able Nancy Vines DO Primary Care Pro vider Unavailable Ashwin Arzola MD Primary Care Provider [phone] Sotero Connell MD Unavailable [phone] [facility] NP Unavailable [phone] Encounter Details Date Type Department Care Team Description 08/05/2016 Home Health Certification Medical Records [address] [place] [address] Vna Social History Tobacco Use Types Packs/Day [...] on filedocumented in this encounter Care Teams Mold Yard Crane Operator Relationship Specialty Start Date End Date Sujey Browning MD PCP - General Internal Medicine 03/27/1608/02 Dudley Brown MD PCP - General Internal Medicine 08/03/19 04/12/20 Nancy Vines DO PCP - General Internal Medicine 04/13/20 07/31/20 Ashwin Arzola MD [address] [place] [address] 67346 PCP - General Internal Medicine 08/01/20 Sotero Connell MD [address] [place] [address]80 Specialist Cardiology 07/10/21 Blanco Edwards NP [address] [place] [address] [phone] Specialist Cardiology 08/02/22 documented as of this encounter
--- OUTSIDE RECORDS SUMMARY | 2025-06-23 16:24 | XMS_ITS | Encounter Summary ---
Author Organization [facility] Address [address] [place] [address] Care Team Providers Care Campus Dean Name Role Phone Sujey Browning MD Primary Care Provider Un available Dudley Brown MD Primary Care Provider Unavail able Nancy Vines DO Primary Care Pro vider Unavailable Ashwin Arzola MD Primary Care Provider Sotero Connell MD Unavailable [phone] Blanco Edwards NP Unavailable [phone] Reason for Visit * Reason Onset Date Comments Follow-up Appt Unavailable 04/23/2016 Encounter Details Date Type Department Care Team Description 04/23/2016 Telephone Cardiology - [address] [phone] Carlos Dupont MD [address] [place], [place] [phone] Follow-up Appt Unavailable Social History Tobacco Use Types Packs/Day Years [...] encounter Miscellaneous Notes * Telephone Encounter - Rosy Pisano L.P.N. - 04/23/2016 9:30 AM EDT Yes, she can see a mid level on . * Telephone Encounter - Cynthia Ram - 04/23/2016 8:51 AM EDT PT daughter calling to schedule f/u w/JM, PT had abnormal echo results. PCP placed a referral yesterday. This will be a kedar? REGISTERED RADIOLOGIC TECHNOLOGIST ok? Thank you documented in this encounter Plan of Treatment Not on file documented as of this encounter Visit Diagnoses Not on filedocumented in this encounter Care Teams Campus Dean Relationship Specialty Start Date End Date Sujey Browning MD PCP - General Internal Medicine 03/27/1608/02 Dudley Brown MD PCP - General Internal Medicine 08/03/19 04/12/20 Nancy Vines DO PCP - General Internal Medicine 04/13/20 07/31/20 Ashwin Arzola MD [address] [place] [address] 059[address] PCP - General Internal Medicine 08/01/20 Sotero Connell MD [address] [place] [address] 23259 Specialist Cardiology 07/10/21 Blanco Edwards NP [address] [place] [address] 31857 Specialist Cardiology 08/02/22 documented as of this encounter
--- OUTSIDE RECORDS SUMMARY | 2025-06-23 16:24 | XMS_ITS | Encounter Summary ---
Author Organization [facility] Address [address] [place] [address] Care Team Providers Care Menu Planner Name Role Phone Ashwin Arzola MD Primary Care Provider [phone] Sotero Connell MD Unavailable [phone] Blanco Edwards NP Unavailable [phone] Reason for Visit * Reason Onset Date Comments Faxed Order 07/05/2021 Encounter Details Date Type Department Care Team Description 07/05/2021 Telephone Adult Medicine [facility] [address] [place] [address] Ashwin Arzola MD [address] [place] [address] Faxed Order Social History Tobacco Use Types [...] 11:50 AM EDT Another faxed order from [employer] * Telephone Encounter - Oz Varghese - 07/05/2021 9:50 AM EDT Additional order for plan of care from [facility] * Telephone Encounter - Oz Varghese - 07/05/2021 9:47 AM EDT Faxed order received from [facility] . Order placed in Dr. Ashwin Arzola's bin. Please review, sign, date, and fax back to [phone]. documented in this encounter Plan of Treatment Not on file documented as of this encounter Visit Diagnoses Not on filedocumented in this encounter Care Teams Menu Planner Relationship Specialty Start Date End Date Ashwin Arzola MD [address] [place] [address] 89558 PCP - General Internal Medicine 08/01/20 Sotero Connell MD [address] [place] [address] 14506 Specialist Cardiology 07/10/21 Blanco Edwards NP [address] [place] [address] 57328 Specialist Cardiology 08/02/22 documented as of this encounter
--- OUTSIDE RECORDS SUMMARY | 2025-06-23 16:24 | XMS_ITS | Encounter Summary ---
Author Organization [facility] Address [address] [place] [address] Care Team Providers Care Electronic Parts Designer Name Role Phone Ashwin Arzola MD Primary Care Provider [phone] Sotero Connell MD Unavailable [phone] Blanco Edwards NP Unavailable [phone] Encounter Details Date Type Department Care Team Description 03/07/2021 Orders Only Radiology - [address] [phone] Radiology, Authorizing Social History Tobacco Use Types Packs/Day Years [...] on filedocumented in this encounter Care Teams Electronic Parts Designer Relationship Specialty Start Date End Date Ashwin Arzola MD [address] [place] [address] [phone] PCP - General Internal Medicine 08/01/20 Sotero Connell MD [address] [place] [address] [phone] Specialist Cardiology 07/10/21 Blanco Edwards NP [address] [place] [address] 38502 Specialist Cardiology 08/02/22 documented as of this encounter
--- OUTSIDE RECORDS SUMMARY | 2025-06-23 16:24 | XMS_ITS | Encounter Summary ---
Author Organization [facility] Address [address] [place] [address] Care Team Providers Care Dog Licenser Name Role Phone Ashwin Arzola MD Primary Care Provider [phone] Sotero Connell MD Unavailable [phone] Blanco Edwards NP Unavailable [phone] Encounter Details Date Type Department Care Team Description 09/25/2023 Orders Only Medical Records [address] [place] [address] [facility] Social History Tobacco Use Types Packs/Day [...] Date/Time Associated Diagnosis Comments OUTSIDE LAB Routine 09/10/2023 documented in this encounter Results * OUTSIDE LAB (09/10/2023) [facility] documented in this encounter Visit Diagnoses Not on filedocumented in this encounter Care Teams Dog Licenser Relationship Specialty Start Date End Date Ashwin Arzola MD [address] [place] [address] [phone] PCP - General Internal Medicine 08/01/20 Sotero Connell MD [address] [place] [address]1020 Specialist Cardiology 07/10/21 Blanco Edwards NP [address] [place] [address] Specialist Cardiology 08/02/22 documented as of this encounter
--- OUTSIDE RECORDS SUMMARY | 2025-06-23 16:24 | XMS_ITS | Encounter Summary ---
Author Organization [facility] Address [address] [place] [address] Care Team Providers Care Earth Science Faculty Member Name Role Phone uSjey Browning MD Primary Care Provider Un available Dudley Brown MD Primary Care Provider Unavail able Nancy Vines DO Primary Care Pro vider Unavailable Ashwin Arzola MD Primary Care Provider [phone] Sotero Connell MD Unavailable Blanco Edwards NP Unavailable [phone] Reason for Visit * Reason Onset Date Comments Error 01/19/2018 Encounter Details Date Type Department Care Team Description 01/19/2018 Telephone Adult [address] [address] Sujey Browning MD Error Social History Tobacco [...] on filedocumented in this encounter Care Teams Earth Science Faculty Member Relationship Specialty Start Date End Date Suejy Browning MD PCP - General Internal Medicine 03/27/1608/02 Dudley Brown MD PCP - General Internal Medicine 08/03/19 04/12/20 Nancy Vines DO PCP - General Internal Medicine 04/13/20 07/31/20 Ashwin Arzola MD [address] [place] [address] [phone] PCP - General Internal Medicine 08/01/20 oStero Connell MD [address] [place] [address]20 Specialist Cardiology 07/10/21 Blanco Edwards NP [address] [place] [address] 0[address]20 Specialist Cardiology 08/02/22 documented as of this encounter
--- OUTSIDE RECORDS SUMMARY | 2025-06-23 16:24 | XMS_ITS | Encounter Summary ---
Author Organization [facility] Address [address] [place] [address] Care Team Providers Care Household Cook Name Role Phone Ashwin Arzola MD Primary Care Provider [phone] Sotero Connell MD Unavailable [phone] Blanco Edwards NP Unavailable [phone] Encounter Details Date Type Department Care Team Description 06/23/2023 Orders Only Medical Records [address] [place] [address] 18639 Abstract, Provider Social History Tobacco Use Types [...] Name Priority Date/Time Associated Diagnosis Comments OUTSIDE EEG Routine 06/19/2023 documented in this encounter Results * OUTSIDE EEG (06/19/2023) Provider Abstract PERFORMABLES documented in this encounter Visit Diagnoses Not on filedocumented in this encounter Care Teams Household Cook Relationship Specialty Start Date End Date Ashwin Arzola MD [address] [place] [address] [phone] PCP - General Internal Medicine 08/01/20 Sotero Connell MD [address] [place] [address] Specialist Cardiology 07/10/21 Blanco Edwards NP [address] [place] [address] Specialist Cardiology 08/02/22 documented as of this encounter
--- OUTSIDE RECORDS SUMMARY | 2025-06-23 16:24 | XMS_ITS | Encounter Summary ---
Author Organization [facility] Address [address] [place] [address] Care Team Providers Care Adult Neuropsychologist Name Role Phone Name, Braulio CHIANG Primary Care Provider Unavailabl Dudley Mancuso MD Primary Care Provider Unavail able Ajit Montanez MD Primary Care Provide r Unavailable Sujey Browning MD Primary Care Provider Un available Dudley Brown MD Primary Care Provider Unavail able Nancy Vines DO Primary Care Pro vider Unavailable Ashwin Arzola MD Primary Care Provider [phone] Sujey Browning MD Primary Care Provider Un available Sotero Connell MD Unavailable [phone] Blanco Edwards NP Unavailable [phone] Reason for Visit * Reason Onset Date Comments VNA Call 08/23/2013 Encounter Details Date Type Department Care Team Description 08/23/2013 Telephone Adult [address] [phone] Name, MD Braulio VNA Call Social History Tobacco Use Types [...] encounter Miscellaneous Notes * Telephone Encounter - Cassie Early - 08/23/2013 10:12 AM EST FYI Or office [phone] At patient home now For physical therapy ,, she is not at home and no answer No contact yet vna will try again later documented in this encounter Plan of Treatment Not on file documented as of this encounter Visit Diagnoses Not on filedocumented in this encounter Care Teams Adult Neuropsychologist Relationship Specialty Start Date End Date Name, [...] Medicine 04/13/20 07/31/20 Ashwin Arzola MD [address] [place] [address] PCP - General Internal Medicine 08/01/20 Sujey Browning MD PCP - General 07/03/15 11/12/15 Sotero Connell MD [address] [place] [address] Specialist Cardiology 07/10/21 Blanco Edwards NP [address] [place] [address]91 Specialist Cardiology 08/02/22 documented as of this encounter
--- OUTSIDE RECORDS SUMMARY | 2025-06-23 16:24 | XMS_ITS | Encounter Summary ---
Author Organization [facility] Address [address] [place] [address] Care Team Providers Care Director Traffic And Planning Name Role Phone Ashwin Arzola MD Primary Care Provider [phone] Sotero Connell MD Unavailable [phone] Blanco Edwards NP Unavailable [phone] Encounter Details Date Type Department Care Team Description 06/21/2023 Orders Only Pulmonology - [address] [place] [address] Blane Shah MD JOSÉ (obstructive [...] Comments SLEEP STUDY-FULL NEURO 16 CHANNEL Routine 05/08/2023 JOSÉ (obstructive sleep apnea) mild AHI 8 documented in this encounter Results * SLEEP STUDY-FULL NEURO 16 CHANNEL (05/08/2023) 05/08/2023 Blane Shah MD PULMONOLOGY documented in this encounter Visit Diagnoses Diagnosis JOSÉ (obstructive sleep apnea) mild AHI 8 Obstructive sleep apnea (adult) (pediatric) documented in this encounter Care Teams Director Traffic And Planning Relationship Specialty Start Date End Date Ashwin Arzola MD [address] [place] [address] [phone] PCP - General Internal Medicine 08/01/20 Sotero Connell MD [address] [place] [address] [phone] Specialist Cardiology 07/10/21 Blanco Edwards NP [address] [place] [address] [phone] Specialist Cardiology 08/02/22 documented as of this encounter
--- OUTSIDE RECORDS SUMMARY | 2025-06-23 16:24 | XMS_ITS | Encounter Summary ---
Author Organization [facility] Address [address] [place] [address] Care Team Providers Care Material Chaser Name Role Phone Ashwin Arzola MD Primary Care Provider [phone] Sotero Connell MD Unavailable [phone] Blanco Edwards NP Unavailable [phone] Encounter Details Date Type Department Care Team Description 07/29/2023 Orders Only Medical Records [address] [place] [address]338 Erik Langford MD Social History Tobacco Use [...] on filedocumented in this encounter Care Teams Material Chaser Relationship Specialty Start Date End Date Ashwin Arzola MD [address] [place] [address] PCP - General Internal Medicine 08/01/20 Sotero Connell MD [address] [place] [address] [phone] Specialist Cardiology 07/10/21 Blanco Edwards NP [address] [place] [address] [phone] Specialist Cardiology 08/02/22 documented as of this encounter
--- OUTSIDE RECORDS SUMMARY | 2025-06-23 16:24 | XMS_ITS | Encounter Summary ---
Author Organization [facility] Address [address] [place] [address] Care Team Providers Care Rail Equipment Operator Name Role Phone Ajit Montanez MD Primary Care Provide r Unavailable Sujey Browning MD Primary Care Provider Un available Dudley Brown MD Primary Care Provider Unavail able Nancy Vines DO Primary Care Pro vider Unavailable Ashwin Arzola MD Primary Care Provider [phone] Sotero Connell MD Unavailable [phone] Blanco Edwards NP Unavailable [phone] Reason for Visit * Reason Comments E-prescribe Rx Request Encounter Details Date Type Department Care Team Description 12/03/2015 Refill Adult Medicine [address] [address] Name, MD Braulio E-prescribe Rx Request Social [...] encounter Miscellaneous Notes * Telephone Encounter - Ayana Gonzalez MD - 12/04/2015 10:50 AM EST Refilled; further refills to come from PCP at [facility] * Telephone Encounter - Deepti Early M.A. - 12/04/2015 9:22 AM EST Pt following Dr Name Component Value Date HGBA1C 7.7 08/24/2015 MALBUR 20.9 04/11/2015 MALBCR 15.2 04/11/2015 CHOL 174 04/11/2015 LDL 75 04/11/2015 HDL 75 04/11/2015 TRIG 118 04/11/2015 GLU 107 04/11/2015 CREAT 0.6 09/28/2015 * Telephone Encounter - Caroline Storey - 12/04/2015 9:17 AM EST Patient following name documented in this encounter Plan of Treatment Not on file documented as of this encounter Visit Diagnoses Not on filedocumented in this encounter Care Teams Rail Equipment Operator Relationship Specialty Start Date End Date Ajit Montanez MD PCP - General Internal Medicine 12/01/15 Sujey Browning MD PCP - General Internal Medicine 03/27/1608/02 Dudley Brown MD PCP - General Internal Medicine 08/03/19 04/12/20 Nancy Vines DO PCP - General Internal Medicine 04/13/20 07/31/20 Ashwin Arzola MD [address] [place] [address] 52782 PCP - General Internal Medicine 08/01/20 Sotero Connell MD [address] [place] [address] 35870 Specialist Cardiology 07/10/21 Blanco Edwards NP [address] [place] [address] 49543 Specialist Cardiology 08/02/22 documented as of this encounter
--- OUTSIDE RECORDS SUMMARY | 2025-06-23 16:24 | XMS_ITS | Encounter Summary ---
Author Organization [facility] Address [address] [place] [address] Care Team Providers Care Surveillance Observer Name Role Phone Name, Braulio CHIANG Primary Care Provider Unavailabl Dudley Mancuso MD Primary Care Provider Unavail able Ajit Montanez MD Primary Care Provide r Unavailable Sujey Browning MD Primary Care Provider Un available Dudley Brown MD Primary Care Provider Unavail able Nancy Vines DO Primary Care Pro vider Unavailable Ashwin Arzola MD Primary Care Provider [phone] Sujey Browning MD Primary Care Provider Un available Sotero Connell MD Unavailable [phone] Blanco Edwards NP Unavailable [phone] Encounter Details Date Type Department Care Team Description 02/19/2012 Telephone Adult Medicine [address] [phone] Name, MD Braulio Social History Tobacco Use [...] on filedocumented in this encounter Care Teams Surveillance Observer Relationship Specialty Start Date End Date Name, [...] Internal Medicine 04/13/20 07/31/20 Ashwin Arzola MD [address] [place] [address] PCP - General Internal Medicine 08/01/20 Sujey Browning MD PCP - General 07/03/15 11/12/15 Sotero Connell MD [address] [place] [address] 46382 Specialist Cardiology 07/10/21 Blanco Edwards NP [address] [place] [address] 49979 Specialist Cardiology 08/02/22 documented as of this encounter
--- OUTSIDE RECORDS SUMMARY | 2025-06-23 16:24 | XMS_ITS | Encounter Summary ---
Author Organization [facility] Address [address] [place] [address] Care Team Providers Care Pension Agent Name Role Phone Sujey Browning MD Primary Care Provider Un available Dudley Brown MD Primary Care Provider Unavail able Nancy Vines DO Primary Care Pro vider Unavailable Ashwin Arzola MD Primary Care Provider Sotero Connell MD Unavailable [phone] [facility] Unavailable [phone] Encounter Details Date Type Department Care Team Description 05/09/2016 Hospital Medical Records [address] [place] [address] Adolfo Reyes MD Social History Tobacco Use [...] on filedocumented in this encounter Care Teams Pension Agent Relationship Specialty Start Date End Date Sujey Browning MD PCP - General Internal Medicine 03/27/1608/02 Dudley Brown MD PCP - General Internal Medicine 08/03/19 04/12/20 Nancy Vines DO PCP - General Internal Medicine 04/13/20 07/31/20 Ashwin Arzola MD [address] [place] [address] [phone] PCP - General Internal Medicine 08/01/20 Sotero Connell MD [address] [place] [address] [phone] Specialist Cardiology 07/10/21 Blanco Edwards NP [address] [place] [address] [phone] Specialist Cardiology 08/02/22 documented as of this encounter
--- OUTSIDE RECORDS SUMMARY | 2025-06-23 16:24 | XMS_ITS | Encounter Summary ---
Author Organization [facility] Address [address] [place] [address] Care Team Providers Care Seafood Team Member Name Role Phone Ashwin Arzola MD Primary Care Provider [phone] Sotero Connell MD Unavailable [phone] Blanco Edwards TUBE DRAWER Unavailable [phone] Encounter Details Date Type Department Care Team Description 12/06/2020 Old Medical Records Medical Records [address] [place] [address] Abstract, Provider Social History Tobacco Use Types [...] on filedocumented in this encounter Care Teams Seafood Team Member Relationship Specialty Start Date End Date Ashwin Arzola MD [address] [place] [address] [phone] PCP - General Internal Medicine 08/01/20 Sotero Connell MD [address] [place] [address] Specialist Cardiology 07/10/21 Blanco Edwards NP [address] [place] [address] 01020 Specialist Cardiology 08/02/22 documented as of this encounter
--- OUTSIDE RECORDS SUMMARY | 2025-06-23 16:24 | XMS_ITS | Encounter Summary ---
Author Organization [facility] Address [address] [place] [address] Care Team Providers Care Performance Improvement Analyst Name Role Phone Name, Braulio CHIANG Primary Care Provider Unavailabl Dudley Mancuso MD Primary Care Provider Unavail able Ajit Montanez MD Primary Care Provide r Unavailable Sujey Browning MD Primary Care Provider Un available Dudley Brown MD Primary Care Provider Unavail able Nancy Vines DO Primary Care Pro vider Unavailable Ashwin Arzola MD Primary Care Provider [phone] Sujey Browning MD Primary Care Provider Un available Sotero Connell MD Unavailable [phone] Blanco Edwards NP Unavailable [phone] Encounter Details Date Type Department Care Team Description 04/06/2012 Orders Only Adult Medicine [address] [address] Britt Flores NP Social History Tobacco Use Types Packs/Day Years [...] on filedocumented in this encounter Care Teams Performance Improvement Analyst Relationship Specialty Start Date End Date Name, [...] Internal Medicine 04/13/20 07/31/20 Ashwin Arzola MD [address] [place] [address] PCP - General Internal Medicine 08/01/20 Sujey Browning MD PCP - General 07/03/15 11/12/15 Sotero Connell MD [address] [place] [address] 33008 Specialist Cardiology 07/10/21 Blanco Edwards NP [address] [place] [address] Specialist Cardiology 08/02/22 documented as of this encounter
--- OUTSIDE RECORDS SUMMARY | 2025-06-23 16:24 | XMS_ITS | Encounter Summary ---
Author Organization [facility] Address [address] [place] [address] Care Team Providers Care Radio Reporter Name Role Phone Sujey rBowning MD Primary Care Provider Un available Dudley Brown MD Primary Care Provider Unavail able Nancy Vines DO Primary Care Pro vider Unavailable Ashwin Arzola MD Primary Care Provider Sotero Connell MD Unavailable [phone] [facility] NP Unavailable [phone] Encounter Details Date Type Department Care Team Description 03/13/2018 Loss Prevention Supervisor Report Medical Records [address] [place] [address] Abstract, Provider Social History Tobacco Use Types [...] on filedocumented in this encounter Care Teams Radio Reporter Relationship Specialty Start Date End Date Sujey Browning MD PCP - General Internal Medicine 03/27/1608/02 Dudley Brown MD PCP - General Internal Medicine 08/03/19 04/12/20 Nancy Vines DO PCP - General Internal Medicine 04/13/20 07/31/20 Ashwin Arzola MD [address] [place] [address] [phone] PCP - General Internal Medicine 08/01/20 Sotero Connell MD [address] [place] [address]61 Specialist Cardiology 07/10/21 Blanco Edwards NP [address] [place] [address] [phone] Specialist Cardiology 08/02/22 documented as of this encounter
--- OUTSIDE RECORDS SUMMARY | 2025-06-23 16:24 | XMS_ITS | Encounter Summary ---
Author Organization [facility] Address [address] [place] [address] Care Team Providers Care Obstetrics Gynecology Md Name Role Phone Ashwin Arzola MD Primary Care Provider [phone] Sotero Connell MD Unavailable [phone] Blanco Edwards NP Unavailable [phone] Encounter Details Date Type Department Care Team Description 05/23/2021 Release of Information Medical Records [address] [place] [address] 31502 Abstract, Provider Social History Tobacco Use Types [...] on filedocumented in this encounter Care Teams Obstetrics Gynecology Md Relationship Specialty Start Date End Date Ashwin Arzola MD [address] [place] [address] [phone] PCP - General Internal Medicine 08/01/20 Sotero Connell MD [address] [place] [address] [phone] Specialist Cardiology 07/10/21 Blanco Edwards NP [address] [place] [address] [phone] Specialist Cardiology 08/02/22 documented as of this encounter
--- OUTSIDE RECORDS SUMMARY | 2025-06-23 16:24 | XMS_ITS | Encounter Summary ---
Author Organization [facility] Address [address] [place] [address] Care Team Providers Care Glass Silverer Name Role Phone Name, Braulio CHIANG Primary Care Provider Unavailabl Dudley Mancuso MD Primary Care Provider Unavail able Ajit Montanez MD Primary Care Provide r Unavailable Sujey Browning MD Primary Care Provider Un available Dudley Brown MD Primary Care Provider Unavail able Nancy Vines DO Primary Care Pro vider Unavailable Ashwin Arzola MD Primary Care Provider [phone] Sujey Browning MD Primary Care Provider Un available Sotero Connell MD Unavailable [phone] Blanco Edwards NP Unavailable [phone] Encounter Details Date Type Department Care Team Description 11/30/2013 Release of Information Medical Records [address] [place] [address] Abstract, Provider Social History Tobacco Use Types [...] filedocumented in this encounter Care Teams Glass Silverer Relationship Specialty Start Date End Date Name, [...] Medicine 04/13/20 07/31/20 Ashwin Arzola MD [address] [place] [address] [phone] PCP - General Internal Medicine 08/01/20 Sujey Browning MD PCP - General 07/03/15 11/12/15 Sotero Connell MD [address] [place] [address] [phone] Specialist Cardiology 07/10/21 Blanco Edwards NP [address] [place] [address] 0[address] Specialist Cardiology 08/02/22 documented as of this encounter
--- OUTSIDE RECORDS SUMMARY | 2025-06-23 16:24 | XMS_ITS | Encounter Summary ---
Author Organization [facility] Address [address] [place] [address] Care Team Providers Care Calender Tender Name Role Phone Ashwin Arzola MD Primary Care Provider [phone] Sotero Connell MD Unavailable [phone] Blanco Edwards NP Unavailable [phone] Encounter Details Date Type Department Care Team Description 12/21/2020 Hospital Medical Records [address] [place] [address] Amber Duque MD [address] [place] [address] [phone] Social History Tobacco Use Types Packs/Day Years [...] on filedocumented in this encounter Care Teams Calender Tender Relationship Specialty Start Date End Date Ashwin Arzola MD [address] [place] [address] PCP - General Internal Medicine 08/01/20 Sotero Connell MD [address] [place] [address] 01020 Specialist Cardiology 07/10/21 Blanco Edwards NP [address] [place] [address] Specialist Cardiology 08/02/22 documented as of this encounter
--- OUTSIDE RECORDS SUMMARY | 2025-06-23 16:24 | XMS_ITS | Encounter Summary ---
Author Organization [facility] Address [address] [place] [address] Care Team Providers Care Conditioning Coach Name Role Phone Ajit Montanez MD Primary Care Provide r Unavailable Sujey Browning MD Primary Care Provider Un available Dudley Brown MD Primary Care Provider Unavail able Nancy Vines DO Primary Care Pro vider Unavailable Ashwin Arzola MD Primary Care Provider [phone] Sotero Connell MD Unavailable [phone] Blanco Edwards NP Unavailable [phone] Reason for Visit * Reason Comments E-prescribe Rx Request Encounter Details Date Type Department Care Team Description [facility] [address] [phone] Name, MD Braulio E-prescribe Rx Request Social [...] EDT Patient no longer has PCP at [facility], please close encounter documented in this encounter Plan of Treatment Not on file documented as of this encounter Visit Diagnoses Not on filedocumented in this encounter Care Teams Conditioning Coach Relationship Specialty Start Date End Date Ajit Montanez MD PCP - General Internal Medicine 12/01/15 Sujey Browning MD PCP - General Internal Medicine 03/27/1608/02 Dudley Brown MD PCP - General Internal Medicine 08/03/19 04/12/20 Nancy Vines DO PCP - General Internal Medicine 04/13/20 07/31/20 Ashwin Arzola MD [address] [place] [address] [phone] PCP - General Internal Medicine 08/01/20 Sotero Connell MD [address] [place] [address] [phone] Specialist Cardiology 07/10/21 Blanco Edwards NP [address] [place] [address] [phone] Specialist Cardiology 08/02/22 documented as of this encounter
--- OUTSIDE RECORDS SUMMARY | 2025-06-23 16:25 | XMS_ITS | Encounter Summary ---
Author Organization [facility] Address [address] [place] [address] Care Team Providers Care Scissors Sharpener Name Role Phone Sujey Browning MD Primary Care Provider Un available Dudley Brown MD Primary Care Provider Unavail able Nancy Vines DO Primary Care Pro vider Unavailable Ashwin Arzola MD Primary Care Provider [phone] Sotero Connell MD Unavailable [phone] [facility] Unavailable [phone] Encounter Details Date Type Department Care Team Description 10/27/2018 Release of Information Medical Records [address] [place] [address] 255[address] Abstract, Provider Social History Tobacco Use Types [...] on filedocumented in this encounter Care Teams Scissors Sharpener Relationship Specialty Start Date End Date Sujey Browning MD PCP - General Internal Medicine 03/27/1608/02 Dudley Brown MD PCP - General Internal Medicine 08/03/19 04/12/20 Nancy Vines DO PCP - General Internal Medicine 04/13/20 07/31/20 Ashwin Arzola MD [address] [place] [address] [phone] PCP - General Internal Medicine 08/01/20 Sotero Connell MD [address] [place] [address] [phone] Specialist Cardiology 07/10/21 Blanco Edwards NP [address] [place] [address] [phone] Specialist Cardiology 08/02/22 documented as of this encounter
--- OUTSIDE RECORDS SUMMARY | 2025-06-23 16:25 | XMS_ITS | Encounter Summary ---
Author Organization [facility] Address [address] [place] [address] Care Team Providers Care Vp Lab Name Role Phone Name, Braulio CHIANG Primary Care Provider Unavailabl Dudley Mancuso MD Primary Care Provider Unavail able Ajit Montanez MD Primary Care Provide r Unavailable Sujey Browning MD Primary Care Provider Un available Dudley Brown MD Primary Care Provider Unavail able Nancy Vines DO Primary Care Pro vider Unavailable Ashwin Arzola MD Primary Care Provider [phone] Sujey Browning MD Primary Care Provider Un available Sotero Connell MD Unavailable [phone] Blanco Edwards NP Unavailable [phone] Reason for Visit * Reason Onset Date Comments DME Request 07/08/2014 Neighborhood Encounter Details Date Type Department Care Team Description 07/08/2014 Telephone Adult [address] [address] Name, MD Braulio DME Request ([facility]) Social History Tobacco Use Types Packs/Day Years [...] on filedocumented in this encounter Care Teams Vp Lab Relationship Specialty Start Date End Date Name, [...] Internal Medicine 04/13/20 07/31/20 Ashwin Arzola MD [address] [place] [address] PCP - General Internal Medicine 08/01/20 Sujey Browning MD PCP - General 07/03/15 11/12/15 Sotero Connell MD [address] [place] [address] 29476 Specialist Cardiology 07/10/21 Blanco Edwards NP [address] [place] [address] Specialist Cardiology 08/02/22 documented as of this encounter
--- OUTSIDE RECORDS SUMMARY | 2025-06-23 16:25 | XMS_ITS | Encounter Summary ---
Author Organization [facility] Address [address] [place] [address] Care Team Providers Care Data Processing Clerk Name Role Phone Ashwin Arzola MD Primary Care Provider Sotero Connell MD Unavailable [phone] Blanco Edwards NP Unavailable [phone] Reason for Visit * Reason Onset Date Comments refill request 10/25/2020 Encounter Details Date Type Department Care Team Description 10/25/2020 Refill Adult Medicine [facility] [address] [place] [address] Ashwin Arzola MD [address] [place] [address] [phone] refill request Social History Tobacco Use Types [...] N/A Patients current insurance carrier is: Payor: [facility] / Plan: Correlor $0 [facility] [id number] / Product Type: HMO [id number] documented in this encounter Plan of Treatment Not on file documented as of this encounter Visit Diagnoses Not on filedocumented in this encounter Care Teams Data Processing Clerk Relationship Specialty Start Date End Date Ashwin Arzola MD [address] [place] [address] PCP - General Internal Medicine 08/01/20 Sotero Connell MD [address] [place] [address] 12610 Specialist Cardiology 07/10/21 Blanco Edwards NP [address] [place] [address] Specialist Cardiology 08/02/22 documented as of this encounter
--- OUTSIDE RECORDS SUMMARY | 2025-06-23 16:25 | XMS_ITS | Encounter Summary ---
Author Organization [facility] Address [address] [place] [address] Care Team Providers Care Clinical Trial Coordinator Name Role Phone Sujey Browning MD Primary Care Provider Un available Dudley Brown MD Primary Care Provider Unavail able Nancy Vines DO Primary Care Pro vider Unavailable Ashwin Arzola MD Primary Care Provider [phone] Sotero Connell MD Unavailable [phone] Blanco Edwards NP Unavailable [phone] Reason for Visit * Reason Onset Date Comments Mixing House Operator Feedback 12/17/2017 Home Care Encounter Details Date Type Department Care Team Description 12/17/2017 Telephone Adult Medicine [address] [address] Sujey Browning MD Mixing House Operator Feedback (Home Care) Social History Tobacco Use Types Packs/Day Years [...] encounter Miscellaneous Notes * Telephone Encounter - Angelika Bonilla R.N. - 12/17/2017 11:03 AM EST Pt referred to [facility] care * Telephone Encounter - Dayami Galvin - 12/17/2017 10:45 AM EST FILM PROCESSING SHIFT SUPERVISOR is checking the status of Home Health Care order. This order will print to the same printer this workstation prints all other orders. The clinical staff in the department will contact the patientto schedule the appointment. Please notify the referrals department once services have been set up and who they have been set up with. Thank You Dayami Referrals Dept documented in this encounter Plan of Treatment Not on file documented as of this encounter Visit Diagnoses Not on filedocumented in this encounter Care Teams Clinical Trial Coordinator Relationship Specialty Start Date End Date Sujey Browning MD PCP - General Internal Medicine 03/27/1608/02 Dudley Brown MD PCP - General Internal Medicine 08/03/19 04/12/20 Nancy Vines DO PCP - General Internal Medicine 04/13/20 07/31/20 Ashwin Arzola MD [address] [place] [address]457 PCP - General Internal Medicine 08/01/20 Sotero Connell MD [address] [place] [address] 89114 Specialist Cardiology 07/10/21 Blanco Edwards NP [address] [place] [address] Specialist Cardiology 08/02/22 documented as of this encounter
--- OUTSIDE RECORDS SUMMARY | 2025-06-23 16:25 | XMS_ITS | Encounter Summary ---
Author Organization [facility] Address [address] [place] [address] Care Team Providers Care Lock Installer Name Role Phone Name, Braulio CHIANG Primary Care Provider Unavailabl e Dudley Brown MD Primary Care Provider Unavail able Ajit Montanez MD Primary Care Provide r Unavailable Sujey Browning MD Primary Care Provider Un available Dudley Brown MD Primary Care Provider Unavail able Nancy Vines DO Primary Care Pro vider Unavailable Ashwin Arzola MD Primary Care Provider [phone] Sujey Browning MD Primary Care Provider Un available Sotero Connell MD Unavailable [phone] Blanco Edwards NP Unavailable [phone] Encounter Details Date Type Department Care Team Description 09/20/2014 Head Resident Report Medical Records [address] [place] [address] Erik Langford MD Social History Tobacco Use [...] on filedocumented in this encounter Care Teams Lock Installer Relationship Specialty Start Date End Date Name, [...] Medicine 04/13/20 07/31/20 Ashwin Arzola MD [address] [place] [address]99 PCP - General Internal Medicine 08/01/20 Sujey Browning MD PCP - General 07/03/15 11/12/15 Sotero Connell MD [address] [place] [address] [phone] Specialist Cardiology 07/10/21 Blanco Edwards NP [address] [place] [address] Specialist Cardiology 08/02/22 documented as of this encounter
--- OUTSIDE RECORDS SUMMARY | 2025-06-23 16:25 | XMS_ITS | Encounter Summary ---
Author Organization [facility] Address [address] [place] [address] Care Team Providers Care Director Of Assessment Name Role Phone Sujey Browning MD Primary Care Provider Un available Dudley Brown MD Primary Care Provider Unavail able Nancy Vines DO Primary Care Pro vider Unavailable Ashwin Arzola MD Primary Care Provider [phone] Sotero Connell MD Unavailable [phone] [facility] Un[facility] [phone] Encounter Details Date Type Department Care Team Description 03/02/2019 Orders Only Medical Records [address] [place] [address] Nicol Alston DPM Social History Tobacco Use Types Packs/Day Years [...] Name Priority Date/Time Associated Diagnosis Comments OUTSIDE VASCULAR STUDY Routine 02/26/2019 documented in this encounter Results * OUTSIDE VASCULAR STUDY (02/26/2019) Nicol Alston DPM CARDIOLOGY documented in this encounter Visit Diagnoses Not on filedocumented in this encounter Care Teams Director Of Assessment Relationship Specialty Start Date End Date Sujey Browning MD PCP - General Internal Medicine 03/27/1608/02 Dudley Brown MD PCP - General Internal Medicine 08/03/19 04/12/20 Nancy Vines DO PCP - General Internal Medicine 04/13/20 07/31/20 Ashwin Arzola MD [address] [place] [address] PCP - General Internal Medicine 08/01/20 Sotero Connell MD [address] [place] [address]58 Specialist Cardiology 07/10/21 Blanco Edwards NP [address] [place] [address] Specialist Cardiology 08/02/22 documented as of this encounter
--- OUTSIDE RECORDS SUMMARY | 2025-06-23 16:25 | XMS_ITS | Encounter Summary ---
Author Organization [facility] Address [address] [place] [address] Care Team Providers Care Mixing Roll Operator Name Role Phone Ashwin Arzola MD Primary Care Provider [phone] Sotero Connell MD Unavailable [phone] Blanco Edwards NP Unavailable [phone] Encounter Details Date Type Department Care Team Description 09/02/2020 Hospital Medical Records [address] [place] [address] Shaheen Tinajero MD, MD Social History Tobacco Use Types Packs/Day [...] on filedocumented in this encounter Care Teams Mixing Roll Operator Relationship Specialty Start Date End Date Ashwin Arzola MD [address] [place] [address] PCP - General Internal Medicine 08/01/20 Sotero Connell MD [address] [place] [address] Specialist Cardiology 07/10/21 Blanco Edwards NP [address] [place] [address] [phone] Specialist Cardiology 08/02/22 documented as of this encounter
--- OUTSIDE RECORDS SUMMARY | 2025-06-23 16:25 | XMS_ITS | Encounter Summary ---
Author Organization [facility] Address [address] [place] [address] Care Team Providers Care Staff Sonographer Name Role Phone Sujey Browning MD Primary Care Provider Un available Dudley Brown MD Primary Care Provider Unavail able Nancy Vines DO Primary Care Pro vider Unavailable Ashwin Arzola MD Primary Care Provider [phone] Sotero Connell MD Unavailable [phone] [facility] Unavailable [phone] Reason for Visit * Reason Comments E-prescribe Rx Request Encounter Details Date Type Department Care Team Description 01/12/2019 Refill Adult Medicine [address] [address] Sujey Browning MD E-prescribe Rx Request Social [...] Telephone Encounter - Deepti Early M.A. - 01/13/2019 9:48 AM EDT Pt asking for refill. Last time this was given for 20 tabs. Will you fill and how much do you want to give? * Telephone Encounter - Shasha Yun - 01/13/2019 8:53 AM EDT Patient would like script to be: E-PRESCRIBED/FAXED TO PHARMACY WHEN WAS THE PATIENT'S LAST APPOINTMENT IN ADULT MEDICINE? 12/10/18 WHEN WAS THE LAST TIME THE PATIENT SAW THEIR PCP? Same as above Does patient have an upcoming appointment? No-patient refused appointment, will call back to book appointment (THE MEDICATION REQUESTED IS ON THE MED [...] N/A Patients current insurance carrier is: Payor: [employer] FFS / Plan: [employer] ALLIANCE / Product Type: MEDICAID RISK documented in this encounter Plan of Treatment Not on file documented as of this encounter Visit Diagnoses Not on filedocumented in this encounter Care Teams Staff Sonographer Relationship Specialty Start Date End Date Sujey Browning MD PCP - General Internal Medicine 03/27/1608/02 Dudley Brown MD PCP - General Internal Medicine 08/03/19 04/12/20 Nancy Vines DO PCP - General Internal Medicine 04/13/20 07/31/20 Ashwin Arzola MD [address] [place] [address] PCP - General Internal Medicine 08/01/20 Sotero Connell MD [address] [place] [address] Specialist Cardiology 07/10/21 Blanco Edwards NP [address] [place] [address] Specialist Cardiology 08/02/22 documented as of this encounter
--- OUTSIDE RECORDS SUMMARY | 2025-06-23 16:25 | XMS_ITS | Encounter Summary ---
Author Organization [facility] Address [address] [place] [address] Care Team Providers Care Certified Welding Inspector Name Role Phone Sujey Browning MD Primary Care Provider Un available Dudley Brown MD Primary Care Provider Unavail able Nancy Vines DO Primary Care Pro vider Unavailable Ashwin Arzola MD Primary Care Provider [phone] Sotero Connell MD Unavailable [phone] Blanco Edwards NP Unavailable [phone] Reason for Visit * Reason Onset Date Comments Toe Pain 12/30/2017 Nail Problem, Toes 12/30/2017 Encounter Details Date Type Department Care Team Description 12/30/2017 Telephone Podiatry - [address] [address] Nicol Alston DPM Toe Pain; Nail Problem, [...] 12/30/2017 11:33 AM EDT I spoke to [facility] and she said pt does not need [...] 12/30/2017 11:02 AM EDT I spoke to [facility] and told her Dr. Alston has no openings for today. Pt has her scheduled appt for tomorrow at 9:30am. In the mean time pt should keep foot elevated and ice it. Injury to right 4th toe, do you want her to have x rays? Please advise. * Telephone Encounter - Gloria Jane - 12/30/2017 10:09 AM EDT Sidra patient's MATTE CUTTER (verbal release on file) calling stating that [...] on filedocumented in this encounter Care Teams Certified Welding Inspector Relationship Specialty Start Date End Date Sujey Browning MD PCP - General Internal Medicine 03/27/1608/02 Dudley Brown MD PCP - General Internal Medicine 08/03/19 04/12/20 Nancy Vines DO PCP - General Internal Medicine 04/13/20 07/31/20 Ashwin Arzola MD [address] [place] [address] PCP - General Internal Medicine 08/01/20 Sotero Connell MD [address] [place] [address] Specialist Cardiology 07/10/21 Blacno Edwards NP [address] [place] [address] Specialist Cardiology 08/02/22 documented as of this encounter
--- OUTSIDE RECORDS SUMMARY | 2025-06-23 16:25 | XMS_ITS | Encounter Summary ---
Author Organization [facility] Address [address] [place] [address] Care Team Providers Care Chocolate Production Machine Operator Name Role Phone Ashwin Arzola MD Primary Care Provider [phone] Sotero Connell MD Unavailable [phone] Blanco Edwards NP Unavailable [phone] Encounter Details Date Type Department Care Team Description 12/25/2023 Orders Only Medical Records [address] [place] [address] Abbe Moran Social History Tobacco Use Types Packs/Day Years [...] Name Priority Date/Time Associated Diagnosis Comments OUTSIDE EKG Routine 11/15/2023 OUTSIDE LAB Routine 11/15/[address] Routine 11/08/2023 documented in this encounter Results * OUTSIDE LAB (11/15/2023) [facility] * OUTSIDE EKG (11/15/2023) [facility] CARDIOLOGY * OUTSIDE CT (11/08/2023) Abbe Moran RADIOLOGY documented in this encounter Visit Diagnoses Not on filedocumented in this encounter Care Teams Chocolate Production Machine Operator Relationship Specialty Start Date End Date Ashwin Arzola MD [address] [place] [address] PCP - General Internal Medicine 08/01/20 Sotero Connell MD [address] [place] [address] [phone] Specialist Cardiology 07/10/21 Blanco Edwrads NP [address] [place] [address] [phone] Specialist Cardiology 08/02/22 documented as of this encounter
--- OUTSIDE RECORDS SUMMARY | 2025-06-23 16:25 | XMS_ITS | Encounter Summary ---
Author Organization [facility] Address [address] [place] [address] Care Team Providers Care Molding Line Assistant Name Role Phone Ashwin Arzola MD Primary Care Provider [phone] Sotero Connell MD Unavailable [phone] Blanco Edwards NP Unavailable [phone] Encounter Details Date Type Department Care Team Description 02/01/2023 Transfer Records Medical Records [address] Social History Tobacco Use Types Packs/Day [...] on filedocumented in this encounter Care Teams Molding Line Assistant Relationship Specialty Start Date End Date Ashwin Arzola MD [address] [place] [address] [phone] PCP - General Internal Medicine 08/01/20 Sotero Connell MD [address] [place] [address] Specialist Cardiology 07/10/21 Blanco Edwards NP [address] [place] [address] [phone] Specialist Cardiology 08/02/22 documented as of this encounter
--- OUTSIDE RECORDS SUMMARY | 2025-06-23 16:25 | XMS_ITS | Encounter Summary ---
Author Organization [facility] Address [address] [place] [address] Care Team Providers Care Special Education Paraeducator Name Role Phone Ashwin Arzola MD Primary Care Provider [phone] Sotero Connell MD Unavailable [phone] Blanco Edwards NP Unavailable [phone] Encounter Details Date Type Department Care Team Description 09/03/2020 Hospital Medical Records [address] [place], [place] [id number] Social History Tobacco Use Types Packs/Day Years [...] filedocumented in this encounter Care Teams Special Education Paraeducator Relationship Specialty Start Date End Date Ashwin Arzola MD [address] [place] [address] [phone] PCP - General Internal Medicine 08/01/20 Sotero Connell MD [address] [place] [address] [phone] Specialist Cardiology 07/10/21 Blanco Edwards NP [address] [place] [address] [phone] Specialist Cardiology 08/02/22 documented as of this encounter
--- OUTSIDE RECORDS SUMMARY | 2025-06-23 16:25 | XMS_ITS | Encounter Summary ---
Author Organization [facility] Address [address] [place] [address] Care Team Providers Care Marketing Database Analyst Name Role Phone Sujey Browning MD Primary Care Provider Un available Dudley Brown MD Primary Care Provider Unavail able Nancy Vines DO Primary Care Pro vider Unavailable Ashwin Arzola MD Primary Care Provider [phone] Sotero Connell MD Unavailable [phone] Blanco Edwards NP Unavailable [phone] Reason for Visit * Reason Comments E-prescribe Rx Request Encounter Details Date Type Department Care Team Description 07/15/2018 Refill OBGYN - [place] [address] [place] [address] Clare Simon MD [address] [place] [address] [phone] E-prescribe Rx Request Social History Tobacco Use [...] encounter Miscellaneous Notes * Telephone Encounter - Leandra Nichols - 07/15/2018 11:04 AM EDT WHEN WAS THE PATIENTS LAST ANNUAL SPORTS MANAGER EXAM? 05-18-18 Does patient have an upcoming appointment? Yes 08-26-18 (THE MEDICATION REQUESTED IS ON THE MED LIST ABOVE) Did you check the Pharmacy information above?: YES Indicate how soon the patient needs the script: BY THE END OF THE DAY Patient would like script to be: E-PRESCRIBED/FAXED TO PHARMACY Is the doctor here today?: YES Can the message wait until the doctor returns?: NO Has the patient been told that the prescription will not be filled until the end of the day? NO Payor: [employer] FFS / Plan: [employer] / Product Type: MEDICAID RISK documented in this encounter Plan of Treatment Not on file documented as of this encounter Visit Diagnoses Diagnosis Vulvar atrophy Atrophy of vulva Vaginal atrophy Postmenopausal atrophic vaginitis documented in this encounter Care Teams Marketing Database Analyst Relationship Specialty Start Date End Date Sujey Browning MD PCP - General Internal Medicine 03/27/1608/02 Dudley Brown MD PCP - General Internal Medicine 08/03/19 04/12/20 Nancy Vines DO PCP - General Internal Medicine 04/13/20 07/31/20 Ashwin Arzola MD [address] [place] [address] PCP - General Internal Medicine 08/01/20 Sotero Connell MD [address] [place] [address] [phone] Specialist Cardiology 07/10/21 Blanco Edwards NP [address] [place] [address] [phone] Specialist Cardiology 08/02/22 documented as of this encounter
--- OUTSIDE RECORDS SUMMARY | 2025-06-23 16:25 | XMS_ITS | Encounter Summary ---
Author Organization [facility] Address [address] [place] [address] Care Team Providers Care Spa Supervisor Name Role Phone Name, Braulio CHIANG Primary Care Provider Unavailabl e Dudley Brown MD Primary Care Provider Unavail able Ajti Montanez MD Primary Care Provide r Unavailable Sujey Browning MD Primary Care Provider Un available Dudley Brown MD Primary Care Provider Unavail able Nancy Vines DO Primary Care Pro vider Unavailable Ashwin Arzola MD Primary Care Provider [phone] Sujey Browning MD Primary Care Provider Un available Sotero Connell MD Unavailable [phone] Blanco Edwards NP Unavailable [phone] Encounter Details Date Type Department Care Team Description 07/14/2014 Transfer Records Medical Records [address] Social History Tobacco Use Types Packs/Day [...] on filedocumented in this encounter Care Teams Spa Supervisor Relationship Specialty Start Date End Date Name, [...] Internal Medicine 04/13/20 07/31/20 Ashwin Arzola MD [address] [place] [address] [phone] PCP - General Internal Medicine 08/01/20 Sujey Browning MD PCP - General 07/03/15 11/12/15 Sotero Connell MD [address] [place] [address] [phone] Specialist Cardiology 07/10/21 Blanco Edwards NP [address] [place] [address] Specialist Cardiology 08/02/22 documented as of this encounter
--- OUTSIDE RECORDS SUMMARY | 2025-06-23 16:25 | XMS_ITS | Encounter Summary ---
Author Organization [facility] Address [address] [place] [address] Care Team Providers Care Mosaic Tile Maker Name Role Phone Ashwin Arzola MD Primary Care Provider [phone] Sotero Connell MD Unavailable [phone] Blanco Edwards NP Unavailable [phone] Encounter Details Date Type Department Care Team Description 11/22/2022 Telephone Pulmonology - [place] [address] [facility] [address] [place] [address] Blane Shah MD Social History [...] suspected to have Coronavirus/COVID-19? No / Unsure 11/19/2022 3:43 PM EST documented as of this encounter Miscellaneous Notes * Telephone Encounter - Rosalia Beckett MA - 11/22/2022 10:28 AM EST Pt was told to come tile picker a nebulizer mask as per BSR. Picked up on 11/22/22 by K[address]alvo (On file) her relative. documented in this encounter Plan of Treatment Not on file documented as of this encounter Visit Diagnoses Not on filedocumented in this encounter Care Teams Mosaic Tile Maker Relationship Specialty Start Date End Date Ashwin Arzola MD [address] [place] [address] [phone] PCP - General Internal Medicine 08/01/20 Sotero Connell MD [address] [place] [address] [phone] Specialist Cardiology 07/10/21 Blanco Edwards NP [address] [place] [address] [phone] Specialist Cardiology 08/02/22 documented as of this encounter
--- OUTSIDE RECORDS SUMMARY | 2025-06-23 16:25 | XMS_ITS | Encounter Summary ---
Author Organization [facility] Address [address] [place] [address] Care Team Providers Care Brim Curler Name Role Phone Ashwin Arzola MD Primary Care Provider [phone] Sotero Connell MD Unavailable [phone] Blanco Edwards NP Unavailable [phone] Reason for Visit * Reason Comments E-prescribe Rx Request Encounter Details Date Type Department Care Team Description 10/10/2022 Refill Adult Medicine [address] [address] Pearl Lomax PA-C E-prescribe Rx Request Social [...] ?? Patients current insurance carrier is: Payor: [facility] / Plan: [email or web address] $[email or web address] [facility] [id number] / Product Type: HMO [id number] ?? documented in this encounter Plan of Treatment Not on file documented as of this encounter Visit Diagnoses Not on filedocumented in this encounter Care Teams Brim Curler Relationship Specialty Start Date End Date Ashwin Arzola MD [address] [place] [address] PCP - General Internal Medicine 08/01/20 Sotero Connell MD [address] [place] [address] Specialist Cardiology 07/10/21 Blanco Edwards NP [address] [place] [address] Specialist Cardiology 08/02/22 documented as of this encounter
--- OUTSIDE RECORDS SUMMARY | 2025-06-23 16:25 | XMS_ITS | Encounter Summary ---
Author Organization [facility] Address [address] [place] [address] Care Team Providers Care Senior Biostatistician Name Role Phone Sujey Browning MD Primary Care Provider Un available Dudley Brown MD Primary Care Provider Unavail able Nancy Vines DO Primary Care Pro vider Unavailable Ashwin Arzola MD Primary Care Provider [phone] Sotero Connell MD Unavailable [phone] Blanco Edwards NP Unavailable [phone] Reason for Visit * Reason Comments E-prescribe Rx Request Encounter Details Date Type Department Care Team Description 08/18/2018 Refill OBGYN - [place] [address] [place] [address] Clare Simon MD [address] [place] [address] [phone] E-prescribe Rx Request Social History Tobacco Use [...] EST WHEN WAS THE PATIENTS LAST ANNUAL SENIOR SALES ASSOCIATE EXAM? 05/2018 Does patient have an upcoming [...] the end of the day? NO Payor: [employer] FFS / Plan: [facility] [employer] / Product Type: MEDICAID RISK documented in this encounter Plan of Treatment Not on file documented as of this encounter Visit Diagnoses Diagnosis Vulvar atrophy Atrophy of vulva Vaginal atrophy Postmenopausal atrophic vaginitis documented in this encounter Care Teams Senior Biostatistician Relationship Specialty Start Date End Date Sujey Browning MD PCP - General Internal Medicine 03/27/1608/02 Dudley Brown MD PCP - General Internal Medicine 08/03/19 04/12/20 Nancy Vines DO PCP - General Internal Medicine 04/13/20 07/31/20 Ashwin Arzola MD [address] [place] [address] PCP - General Internal Medicine 08/01/20 Sotero Connell MD [address] [place] [address] [phone] Specialist Cardiology 07/10/21 Blanco Edwards NP [address] [place] [address] [phone] Specialist Cardiology 08/02/22 documented as of this encounter
--- OUTSIDE RECORDS SUMMARY | 2025-06-23 16:25 | XMS_ITS | Encounter Summary ---
Author Organization [facility] Address [address] [place] [address] Care Team Providers Care Railroad Signal Technician Name Role Phone Ashwin Arzola MD Primary Care Provider [phone] Sotero Connell MD Unavailable [phone] Blanco Edwards NP Unavailable [phone] Reason for Visit * Reason Onset Date Comments Prior Authorization 10/29/2020 Encounter Details Date Type Department Care Team Description 10/29/2020 Telephone [place] [facility] [address] [place] [address] [phone] Ashwin Arzola MD [address] [place] [address] Prior Authorization Social History Tobacco Use Types [...] lantus. Thank you Please reply back to [id number] Prior Auth Pool [facility] Prior [...] lantus? Thank you Please reply back to [id number] Prior [facility]kat [facility] Prior Authorization Ext [phone] * Telephone Encounter - Ghada Abbasi - 10/29/2020 2:47 PM EST Prior Authorization for Medication-do not complete and send this encounter unless you have the fax from the pharmacy. Is this a Cover My Meds request: [employer] of Medication Insulin Glargine (BASAGLAR KWIKPEN) Dose of Medication 100 UNIT/ML Solution Pen-injector What is the RX # from the faxed refill? How does patient take this med? Inject 30 Units into the skin daily. What Pharmacy did the fax come from: [facility] Pharmacy fax #: [phone] [employer] Information from fax: What Prescription Plan does the patient have? BIN/PCN if applicable: Patience ID:[id number] Person Code: Relationship Code: Help desk phone: [phone] documented in this encounter Plan of Treatment Not on file documented as of this encounter Visit Diagnoses Not on filedocumented in this encounter Care Teams Railroad Signal Technician Relationship Specialty Start Date End Date Ashwin Arzola MD [address] [place] [address] PCP - General Internal Medicine 08/01/20 Sotero Connell MD [address] [place] [address] Specialist Cardiology 07/10/21 Blanco Edwards NP [address] [place] [address] Specialist Cardiology 08/02/22 documented as of this encounter
--- OUTSIDE RECORDS SUMMARY | 2025-06-23 16:25 | XMS_ITS | Encounter Summary ---
Author Organization [facility] Address [address] [place] [address] Care Team Providers Care Physicians Assistant Name Role Phone Name, Braulio CHIANG Primary Care Provider Unavailabl e Dudley Brown MD Primary Care Provider Unavail able Ajit Montanez MD Primary Care Provide r Unavailable Sujey Browning MD Primary Care Provider Un available Dudley Brown MD Primary Care Provider Unavail able Nancy Vines DO Primary Care Pro vider Unavailable Ashwin Arzola MD Primary Care Provider [phone] Sujey Browning MD Primary Care Provider Un available Sotero Connell MD Unavailable [phone] Blanco Edwards NP Unavailable [phone] Reason for Visit * Reason Comments E-prescribe Rx Request Encounter Details Date Type Department Care Team Description 07/11/2014 Refill Adult Medicine [address] [id number] Name, MD Braulio E-prescribe Rx Request Social [...] Telephone Encounter - Tamiko López M.A. - 07/13/2014 8:21 AM EDT Component Value Date CHOL 211 11/05/2013 LDL 116 11/05/2013 HDL 75 11/05/2013 TRIG 103 11/05/2013 SGOT 11 06/16/2014 SGPT 15 06/16/2014 * Telephone Encounter - Leonila Wagner - 07/12/2014 8:57 AM EDT Patient would like script to be: E-PRESCRIBED/FAXED TO PHARMACY WHEN WAS THE PATIENT'S LAST APPOINTMENT IN ADULT MEDICINE? 07/07/14 WHEN WAS THE LAST TIME THE PATIENT SAW THEIR PCP? Same as above Does patient have an upcoming appointment? Yes 07/18/14 (THE MEDICATION REQUESTED IS ON THE MED LIST ABOVE) All of the medications requested were on the CURRENT MEDS list Did you check the Pharmacy information above?: YES Patient wants: 30 -day supply Is this a mail order prescription request ? NO Patients current insurance carrier is: [facility] / Plan: FFS HMO $0 [place] [id number] / Product Type: MEDICAID RISK documented in this encounter Plan of Treatment Not on file documented as of this encounter Visit Diagnoses Not on filedocumented in this encounter Care Teams Physicians Assistant Relationship Specialty Start Date End Date Name, [...] Internal Medicine 04/13/20 07/31/20 Ashwin Arzola MD [address] [place] [address] PCP - General Internal Medicine 08/01/20 Sujey Browning MD PCP - General 07/03/15 11/12/15 Sotero Connell MD [address] [place] [address] 39592 Specialist Cardiology 07/10/21 Blanco Edwards NP [address] [place] [address] 9[address] Specialist Cardiology 08/02/22 documented as of this encounter
--- OUTSIDE RECORDS SUMMARY | 2025-06-23 16:25 | XMS_ITS | Encounter Summary ---
Author Organization [facility] Address [address] [place] [address] Care Team Providers Care Dowel Inserting Machine Operator Name Role Phone Name, Braulio CHIANG Primary Care Provider Unavailabl Dudley Mancuso MD Primary Care Provider Unavail able Ajit Montanez MD Primary Care Provide r Unavailable Sujey Browning MD Primary Care Provider Un available Dudley Brown MD Primary Care Provider Unavail able Nancy Vines DO Primary Care Pro vider Unavailable Ashwin Arzola MD Primary Care Provider [phone] Sujey Browning MD Primary Care Provider Un available Sotero Connell MD Unavailable [phone] Blanco Edwards NP Unavailable [phone] Reason for Visit * Reason Onset Date Comments hospital follow up 06/27/2014 Encounter Details Date Type Department Care Team Description 06/27/2014 Telephone Adult [address] [id number] Name, MD Braulio hospital follow up Social History Tobacco Use [...] Miscellaneous Notes * Telephone Encounter - Angelika Chad Tubbs - 06/27/2014 1:58 PM EDT Pt offered 07/07 at 3:[address] correa or sooner with another provider, she is clearly angry, states this is unbelievable. She took the date and hung up without confirming. * Telephone Encounter - Cassie Early - 06/27/2014 1:38 PM EDT Symptoms patient is presenting: patient admitted to [facility] 06/24 D/c 06/25 headaches /needs 1 wk follow up Wants to see dr name only Cat scan , ekg , bloodwork done How long has patient had these symptoms?: D/c 06/25 PCP: Braulio Name Payor: [employer] FFS / Plan: FFS HMO $0 [place] [id number] / Product Type: MEDICAID RISK documented in this encounter Plan of Treatment Not on file documented as of this encounter Visit Diagnoses Not on filedocumented in this encounter Care Teams Dowel Inserting Machine Operator Relationship Specialty Start Date End [...] Medicine 04/13/20 07/31/20 Ashwin Arzola MD [address] [place] [address] PCP - General Internal Medicine 08/01/20 Sujey Browning MD PCP - General 07/03/15 11/12/15 Sotero Connell MD [address] [place] [address] Specialist Cardiology 07/10/21 Blanco Edwards NP [address] [place] [address] Specialist Cardiology 08/02/22 documented as of this encounter
--- OUTSIDE RECORDS SUMMARY | 2025-06-23 16:25 | XMS_ITS | Encounter Summary ---
Author Organization [facility] Address [address] [place] [address] Care Team Providers Care Showroom Sales Consultant Name Role Phone Name, Braulio CHIANG Primary Care Provider Unavailabl Dudley Mancuso MD Primary Care Provider Unavail able Ajit Montanez MD Primary Care Provide r Unavailable Sujey Browning MD Primary Care Provider Un available Dudley Brown MD Primary Care Provider Unavail able Nancy Vines DO Primary Care Pro vider Unavailable Ashwin Azrola MD Primary Care Provider [phone] Sujey Browning MD Primary Care Provider Un available Sotero Connell MD Unavailable [phone] Blanco Edwards NP Unavailable [phone] Reason for Visit * Reason Onset Date Comments Follow-up Appt Unavailable 06/24/2012 Encounter Details Date Type Department Care Team Description 06/24/2012 Telephone Adult Medicine [address] [id number] Braulio Erickson MD Follow-up Appt Unavailable Social History Tobacco Use [...] Telephone Encounter - Angelika Bonilla R.N. - 06/25/2012 4:15 PM EDT Pt booked for 08/26 at 2:[address] erickson, message left for pt to call. she will need to confirm appointment or be rescheduled with triage. * Telephone Encounter - Winnie Hernandez L.P.NMillie - 06/25/2012 1:40 PM EDT I spoke with pt re test * Telephone Encounter - Ghada Abbasi - 06/24/2012 2:49 PM EDT PT NEEDS A [address] ERICKSON. PT SAW RUSSELL TODAY. documented in this encounter Plan of Treatment Not on file documented as of this encounter Visit Diagnoses Not on filedocumented in this encounter Care Teams Showroom Sales Consultant Relationship Specialty Start Date End [...] Medicine 04/13/20 07/31/20 Ashwin Arzola MD [address] [place] [address] PCP - General Internal Medicine 08/01/20 Sujey Browning MD PCP - General 07/03/15 11/12/15 Sotero Connell MD [address] [place] [address] Specialist Cardiology 07/10/21 Blanco Edwards NP [address] [place] [address]861 Specialist Cardiology 08/02/22 documented as of this encounter
--- OUTSIDE RECORDS SUMMARY | 2025-06-23 16:26 | XMS_ITS | Encounter Summary ---
Author Organization [facility] Address [address] [place] [address] Care Team Providers Care Binding Stitcher Name Role Phone Ashwin Arzola MD Primary Care Provider [phone] Sotero Connell MD Unavailable [phone] Blanco Edwards NP Unavailable [phone] Reason for Visit * Reason Onset Date Comments Faxed Order 06/15/2024 [facility] order #[id number] Encounter Details Date Type Department Care Team Description 06/15/2024 Telephone Adult Medicine [address] [address] Ashwin Arzola MD [address] [place] [address] Faxed Order ([facility] order #[id number]) Social History Tobacco Use Types Packs/Day Years [...] Telephone Encounter - Tammy Umaña - 06/15/2024 12:21 PM EDT Received orders from [facility] order #[id number]. Please sign and fax to [phone] documented in this encounter Plan of Treatment Not on file documented as of this encounter Visit Diagnoses Not on filedocumented in this encounter Care Teams Binding Stitcher Relationship Specialty Start Date End Date Ashwin Arzola MD [address] [place] [address] PCP - General Internal Medicine 08/01/20 Sotero Connell MD [address] [place] [address] Specialist Cardiology 07/10/21 Blanco Edwards NP [address] [place] [address] Specialist Cardiology 08/02/22 documented as of this encounter
--- OUTSIDE RECORDS SUMMARY | 2025-06-23 16:26 | XMS_ITS | Encounter Summary ---
Author Organization [facility] Address [address] [place] [address] Care Team Providers Care Deckhand Oyster Dredge Name Role Phone Ashwin Arzola MD Primary Care Provider [phone] Sotero Connell MD Unavailable [phone] CycBlanco chandler NP Unavailable [phone] Encounter Details Date Type Department Care Team Description 07/27/2024 Orders Only Medical Records [address] [place] [address] [facility] Social History Tobacco Use Types Packs/Day [...] encounter Results * OUTSIDE PLAIN FILM (07/26/2024) [facility] RADIOLOGY * OUTSIDE CT (07/26/2024) [facility] RADIOLOGY documented in this encounter Visit Diagnoses Not on filedocumented in this encounter Care Teams Deckhand Oyster Dredge Relationship Specialty Start Date End Date Ashwin Arzola MD [address] [place], [place] [phone] PCP - General Internal Medicine 08/01/20 Sotero Connell MD [address] [place] [address] Specialist Cardiology 07/10/21 Blanco Edwards NP [address] [place] [address] [phone] Specialist Cardiology 08/02/22 documented as of this encounter
--- OUTSIDE RECORDS SUMMARY | 2025-06-23 16:26 | XMS_ITS | Encounter Summary ---
Author Organization [facility] Address [address] [place] [address] Care Team Providers Care Program Admin Name Role Phone Nancy Vines DO Primary Care Pro vider Unavailable Ashwin Arzola MD Primary Care Provider [phone] Sotero Connell MD Unavailable [phone] Blanco Edwards NP Unavailable [phone] Encounter Details Date Type Department Care Team Description 07/13/2020 Tour Consultant Report Medical Records [address] [place] [address] Maty Espinoza II Social History Tobacco Use [...] on filedocumented in this encounter Care Teams Program Admin Relationship Specialty Start Date End Date Nancy Vines DO PCP - General Internal Medicine 04/13/20 07/31/20 Ashwin Arzola MD [address] [place] [address] [phone] PCP - General Internal Medicine 08/01/20 Sotero Connell MD [address] [place] [address] [place] [address] Specialist Cardiology 07/10/21 Blanco Edwards NP [address] [place] [address] Specialist Cardiology 08/02/22 documented as of this encounter
--- OUTSIDE RECORDS SUMMARY | 2025-06-23 16:26 | XMS_ITS | Encounter Summary ---
Author Organization [facility] Address [address] [place] [address] Care Team Providers Care Court Of Appeals Judge Name Role Phone Ashwin Arzola MD Primary Care Provider [phone] Sotero Connell MD Unavailable [phone] Blanco Edwards NP Unavailable [phone] Reason for Visit * Reason Comments E-prescribe Rx Request Encounter Details Date Type Department Care Team Description 04/26/2022 Refill Adult Medicine [address] [phone] Fartun Wayne PA-C E-prescribe Rx Request Social History Tobacco [...] suspected to have Coronavirus/COVID-19? No / Unsure 04/02/2022 1:54 PM EDT documented as of this encounter Plan of Treatment Not on file documented as of this encounter Visit Diagnoses Not on filedocumented in this encounter Care Teams Court Of Appeals Judge Relationship Specialty Start Date End Date Ashwin Arzola MD [address] [place] [address] PCP - General Internal Medicine 08/01/20 Sotero Connell MD [address] [place] [address] [phone] Specialist Cardiology 07/10/21 Blanco Edwards NP [address] [place] [address] Specialist Cardiology 08/02/22 documented as of this encounter
--- OUTSIDE RECORDS SUMMARY | 2025-06-23 16:26 | XMS_ITS | Encounter Summary ---
Author Organization [facility] Address [address] [place] [address] Care Team Providers Care Reinforcing Steel Erector Name Role Phone Ashwin Arzola MD Primary Care Provider [phone] Sotero Connell MD Unavailable [phone] Blanco Edwards NP Unavailable [phone] Reason for Visit * Reason Onset Date Comments Faxed Order 07/16/2024 [facility] #[id number] Encounter Details Date Type Department Care Team Description 07/16/2024 Telephone Adult Medicine [address] [address] Ashwin Arzola MD [address] [place] [address] Faxed Order ([facility]/Order #[id number]) Social History Tobacco Use Types Packs/Day Years [...] 07/16/2024 2:41 PM EDT Received faxed order [id number] from [facility] and placed in provider bin. Please review, sign, andfax to [phone] documented in this encounter Plan of Treatment Not on file documented as of this encounter Visit Diagnoses Not on filedocumented in this encounter Care Teams Reinforcing Steel Erector Relationship Specialty Start Date End Date Ashwin Arzola MD [address] [place] [address] [phone] PCP - General Internal Medicine 08/01/20 Sotero Connell MD [address] [place] [address] [phone] Specialist Cardiology 07/10/21 Blanco Edwards NP [address] [place] [address] [phone] Specialist Cardiology 08/02/22 documented as of this encounter
--- OUTSIDE RECORDS SUMMARY | 2025-06-23 16:26 | XMS_ITS | Encounter Summary ---
Author Organization [facility] Address [address] [place] [address] Care Team Providers Care Wire Mesh Knitter Name Role Phone Name, Braulio CHIANG Primary Care Provider Unavailabl Dudley Mancuso MD Primary Care Provider Unavail able Ajit Montanez MD Primary Care Provide r Unavailable Sujey Browning MD Primary Care Provider Un available Dudley Brown MD Primary Care Provider Unavail able Nancy Vines DO Primary Care Pro vider Unavailable Ashwin Arzola MD Primary Care Provider [phone] Sujey Browning MD Primary Care Provider Un available Sotero Connell MD Unavailable [phone] Blanco Edwards NP Unavailable [phone] Reason for Visit * Reason Onset Date Comments Faxed Order 07/15/2013 [facility] Encounter Details Date Type Department Care Team Description 07/15/2013 [place] Adult [address] [address] Name, MD Braulio Faxed Order ([facility]) Social History Tobacco Use Types Packs/Day [...] - 07/15/2013 11:45 AM EDT Diabetes center [facility] documented in this encounter Plan of Treatment Not on file documented as of this encounter Visit Diagnoses Not on filedocumented in this encounter Care Teams Wire Mesh Knitter Relationship Specialty Start Date End Date Name, MD Brauilo PCP - General Internal Medicine 11/06/11 07/02/15 Dudley Brown MD PCP - General Internal Medicine 11/13/15 11/30/15 Ajit Montanez MD PCP - General Internal Medicine 12/01/15 Sujey Browning MD PCP - General Internal Medicine 03/27/1608/02 Dudley Brown MD PCP - General Internal Medicine 08/03/19 04/12/20 Nancy Vines DO PCP - General Internal Medicine 04/13/20 07/31/20 Ashwin Arzola MD [address] [place] [address] PCP - General Internal Medicine 08/01/20 Sujey Browning MD PCP - General 07/03/15 11/12/15 Sotero Connell MD [address] [place] [address] Specialist Cardiology 07/10/21 Blanco Edwards NP [address] [place] [address] Specialist Cardiology 08/02/22 documented as of this encounter
--- OUTSIDE RECORDS SUMMARY | 2025-06-23 16:26 | XMS_ITS | Encounter Summary ---
Author Organization [facility] Address [address] [place] [address] Care Team Providers Care Shallot Packer Name Role Phone Sujey Browning MD Primary Care Provider Un available Dudley Brown MD Primary Care Provider Unavail able Nancy Vines DO Primary Care Pro vider Unavailable Ashwin Arzola MD Primary Care Provider [phone] Sotero Connell MD Unavailable [phone] [facility] Unavailable [phone] Encounter Details Date Type Department Care Team Description 01/31/2017 Release of Information Medical Records [address] [place] [address] Abstract, Provider Social History Tobacco Use Types [...] on filedocumented in this encounter Care Teams Shallot Packer Relationship Specialty Start Date End Date Sujey Browning MD PCP - General Internal Medicine 03/27/1608/02 Dudley Brown MD PCP - General Internal Medicine 08/03/19 04/12/20 Nancy Vines DO PCP - General Internal Medicine 04/13/20 07/31/20 Ashwin Arzola MD [address] [place] [address] [id number] PCP - General Internal Medicine 08/01/20 Sotero Connell MD [address] [place] [address] [phone] Specialist Cardiology 07/10/21 Blanco Edwards NP [address] [place] [address] [phone] Specialist Cardiology 08/02/22 documented as of this encounter
--- OUTSIDE RECORDS SUMMARY | 2025-06-23 16:26 | XMS_ITS | Encounter Summary ---
Author Organization [facility] Address [address] [place] [address] Care Team Providers Care Nurse Transitional Name Role Phone Ashwin Arzola MD Primary Care Provider Sotero Connell MD Unavailable [phone] Blanco Edwards NP Unavailable [phone] Reason for Visit * Reason Onset Date Comments Faxed Order 07/23/2024 [facility] er # [id number] Encounter Details Date Type Department Care Team Description 07/23/2024 Telephone Adult Medicine [address] [address] Ashwin Arzola MD [address] [place] [address] Faxed Order ([facility] Order # [id number]) Social History Tobacco Use Types Packs/Day Years [...] faxed order from [facility] Order # [id number]. Please sign, date, and fax back to [phone] documented in this encounter Plan of Treatment Not on file documented as of this encounter Visit Diagnoses Not on filedocumented in this encounter Care Teams Nurse Transitional Relationship Specialty Start Date End Date Ashwin Arzola MD [address] [place] [address] PCP - General Internal Medicine 08/01/20 Sotero Connell MD [address] [place] [address] Specialist Cardiology 07/10/21 Blanco Edwards NP [address] [place] [address] Specialist Cardiology 08/02/22 documented as of this encounter
--- OUTSIDE RECORDS SUMMARY | 2025-06-23 16:26 | XMS_ITS | Encounter Summary ---
Author Organization [facility] Address [address] [place] [address] Care Team Providers Care Miner Operator Name Role Phone Sujey Browning MD Primary Care Provider Un available Dudley Brown MD Primary Care Provider Unavail able Nancy Vines DO Primary Care Pro vider Unavailable Ashwin Arzola MD Primary Care Provider [phone] Sotero Connell MD Unavailable [facility] Unavailable Reason for Visit * Reason Onset Date Comments medication problems 07/14/2019 Encounter Details Date Type Department Care Team Description 07/14/2019 Telephone Adult Medicine [address] [address] Dudley Brown MD medication problems Social History [...] on filedocumented in this encounter Care Teams Miner Operator Relationship Specialty Start Date End Date Sujey Browning MD PCP - General Internal Medicine 03/27/1608/02 Dudley Brown MD PCP - General Internal Medicine 08/03/19 04/12/20 Nancy Vines DO PCP - General Internal Medicine 04/13/20 07/31/20 Ashwin Arzola MD [address] [place] [address] PCP - General Internal Medicine 08/01/20 Sotero Connell MD [address] [place] [address] Specialist Cardiology 07/10/21 Blacno Edwards NP [address] [place] [address] Specialist Cardiology 08/02/22 documented as of this encounter
--- OUTSIDE RECORDS SUMMARY | 2025-06-23 16:26 | XMS_ITS | Encounter Summary ---
Author Organization [facility] Address [address] [place] [address] Care Team Providers Care Internet Architect Name Role Phone Sujey Browning MD Primary Care Provider Un available Dudley Brown MD Primary Care Provider Unavail able Nancy Vines DO Primary Care Pro vider Unavailable Ashwin Arzola MD Primary Care Provider Sotero Connell MD Unavailable [phone] [facility] NP Unavailable [phone] Encounter Details Date Type Department Care Team Description 01/07/2017 Hospital Medical Records [address] [place] [address] Dorys Castellanos Social History Tobacco Use Types Packs/Day Years [...] on filedocumented in this encounter Care Teams Internet Architect Relationship Specialty Start Date End Date Sujey Browning MD PCP - General Internal Medicine 03/27/1608/02 Dudley Brown MD PCP - General Internal Medicine 08/03/19 04/12/20 Nancy Vines DO PCP - General Internal Medicine 04/13/20 07/31/20 Ashwin Arzola MD [address] [place] [address] [phone] PCP - General Internal Medicine 08/01/20 Sotero Connell MD [address] [place] [address] Specialist Cardiology 07/10/21 Blanco Edwards NP [address] [place] [address] [phone] Specialist Cardiology 08/02/22 documented as of this encounter
--- OUTSIDE RECORDS SUMMARY | 2025-06-23 16:26 | XMS_ITS | Encounter Summary ---
Author Organization [facility] Address [address] [place] [address] Care Team Providers Care Joinery Setter Out Name Role Phone Sujey Browning MD Primary Care Provider Un available Dudley Brown MD Primary Care Provider Unavail able Nancy Vines DO Primary Care Pro vider Unavailable Ashwin Arzola MD Primary Care Provider [phone] Sotero Connell MD Unavailable [phone] [facility] ch[facility]ler NP Unavailable [phone] Encounter Details Date Type Department Care Team Description 12/28/2016 [facility] Medical Records [address] [place] [address] Abstract, Provider Social History Tobacco Use Types [...] on filedocumented in this encounter Care Teams Joinery Setter Out Relationship Specialty Start Date End Date Sujey Browning MD PCP - General Internal Medicine 03/27/1608/02 Dudley Brown MD PCP - General Internal Medicine 08/03/19 04/12/20 Nancy Vines DO PCP - General Internal Medicine 04/13/20 07/31/20 Ashwin Arzola MD [address] [place] [address] [phone] PCP - General Internal Medicine 08/01/20 Sotero Connell MD [address] [place] [address] Specialist Cardiology 07/10/21 Blanco Edwards NP [address] [place] [address] Specialist Cardiology 08/02/22 documented as of this encounter
--- OUTSIDE RECORDS SUMMARY | 2025-06-23 16:26 | XMS_ITS | Encounter Summary ---
Author Organization [facility] Address [address] [place] [address] Care Team Providers Care Film Technician Name Role Phone Dudley Brown MD Primary Care Provider Unavail able Nancy Vines DO Primary Care Pro vider Unavailable Ashwin Arzola MD Primary Care Provider [phone] Sotero Connell MD Unavailable [phone] Blanco Edwards NP Unavailable [phone] Reason for Visit * Reason Onset Date Comments Testing 10/14/2019 CT Abd & Pelvis Encounter Details Date Type Department Care Team Description 10/14/2019 Telephone Adult Medicine [facility] [address] [place] [address] Daisy Singh MD Testing (CT Abd & [...] Yusra Villagomez - 10/14/2019 12:46 PM EST [facility] No auth required Order faxed to Marie - this office will contact patient to schedule appointment. Once scheduled they will contact Edward and inform us of the date and time of appointment. documented in this encounter Plan of Treatment Not on file documented as of this encounter Visit Diagnoses Not on filedocumented in this encounter Care Teams Film Technician Relationship Specialty Start Date End Date Dudley Brown MD PCP - General Internal Medicine 08/03/19 04/12/20 Nancy Vines DO PCP - General Internal Medicine 04/13/20 07/31/20 Ashwin Arzola MD [address] [place] [address] PCP - General Internal Medicine 08/01/20 Sotero Connell MD [address] [place] [address] Specialist Cardiology 07/10/21 Blanco Edwards NP [address] [place] [address] [phone] Specialist Cardiology 08/02/22 documented as of this encounter
--- OUTSIDE RECORDS SUMMARY | 2025-06-23 16:26 | XMS_ITS | Encounter Summary ---
Author Organization [facility] Address [address] [place] [address] Care Team Providers Care Sports Centre Manager Name Role Phone Sujey Browning MD Primary Care Provider Un available Dudley Brown MD Primary Care Provider Unavail able Nancy Vines DO Primary Care Pro vider Unavailable Ashwin Arzola MD Primary Care Provider [phone] Sotero Connell MD Unavailable [phone] [place] [facility] chandler NP Unavailable [phone] Encounter Details Date Type Department Care Team Description 10/29/2016 Hospital Medical Records [address] [place] [address] 45377 Alexandre Coreas MD Social History Tobacco Use Types Packs/Day [...] on filedocumented in this encounter Care Teams Sports Centre Manager Relationship Specialty Start Date End Date Sujey Browning MD PCP - General Internal Medicine 03/27/1608/02 Dudley Brown MD PCP - General Internal Medicine 08/03/19 04/12/20 Nancy Vines DO PCP - General Internal Medicine 04/13/20 07/31/20 Ashwin Arzola MD [address] [place] [address] [phone] PCP - General Internal Medicine 08/01/20 Sotero Connell MD [address] [place] [address] 58669 Specialist Cardiology 07/10/21 Blanco Edwards NP [address] [place] [address] [phone] Specialist Cardiology 08/02/22 documented as of this encounter
--- OUTSIDE RECORDS SUMMARY | 2025-06-23 16:26 | XMS_ITS | Encounter Summary ---
Author Organization [facility] Address [address] [place] [address] Care Team Providers Care Street Vendor Name Role Phone Ashwin Arzola MD Primary Care Provider Sotero Connell MD Unavailable [phone] Blanco Edwards NP Unavailable [phone] Reason for Visit * Reason Comments E-prescribe Rx Request Encounter Details Date Type Department Care Team Description 06/20/2022 Refill [facility] [address] [place] [address] [phone] Ashwin Arzola MD [address] [place] [address] [phone] E-prescribe Rx Request Social History Tobacco Use [...] N/A Patients current insurance carrier is: Payor: [facility] / Plan: iZumi Bio $0 [facility] [id number] / Product Type: HMO [id number] documented in this encounter Plan of Treatment Not on file documented as of this encounter Visit Diagnoses Not on filedocumented in this encounter Care Teams Street Vendor Relationship Specialty Start Date End Date Ashwin Arzola MD [address] [place] [address] 64291 PCP - General Internal Medicine 08/01/20 Sotero Connell MD [address] [place] [address] Specialist Cardiology 07/10/21 Blanco Edwards NP [address], [place] [phone] Specialist Cardiology 08/02/22 documented as of this encounter
--- OUTSIDE RECORDS SUMMARY | 2025-06-23 16:26 | XMS_ITS | Encounter Summary ---
Author Organization [facility] Address [address] [place] [address] Care Team Providers Care Events Solutions Consultant Name Role Phone Ashwin Arzola MD Primary Care Provider [phone] Sotero Connell MD Unavailable Blanco Edwards NP Unavailable [phone] Encounter Details Date Type Department Care Team Description 07/13/2024 Home Health Certification Medical Records [address] [place] [address] [facility] [address] [facility] [place] [address] Social History Tobacco Use Types Packs/Day Years [...] on filedocumented in this encounter Care Teams Events Solutions Consultant Relationship Specialty Start Date End Date Ashwin Arzola MD [address] [place] [address] [phone] PCP - General Internal Medicine 08/01/20 Sotero Connell MD [address] [place] [address] [phone] Specialist Cardiology 07/10/21 Blanco Edwards NP [address] [place] [address] [phone] Specialist Cardiology 08/02/22 documented as of this encounter
--- OUTSIDE RECORDS SUMMARY | 2025-06-23 16:26 | XMS_ITS | Encounter Summary ---
Author Organization [facility] Address [address] [place] [address] Care Team Providers Care Soda Fountain Manager Name Role Phone Ashwin Arzola MD Primary Care Provider [phone] Sotero Connell MD Unavailable [phone] Blanco Edwards NP Unavailable [phone] Encounter Details Date Type Department Care Team Description 11/19/2021 Hospital Medical Records [address] [place] [address] Fern Daya Social History Tobacco Use Types Packs/Day Years [...] have Coronavirus / COVID-19? No / Unsure 11/20/2021 8:41 AM EST documented as of this encounter Plan of Treatment Not on file documented as of this encounter Visit Diagnoses Not on filedocumented in this encounter Care Teams Soda Fountain Manager Relationship Specialty Start Date End Date Ashwin Arzola MD [address] [place] [address] [phone] PCP - General Internal Medicine 08/01/20 Sotero Connell MD [address] [place] [address] [phone] Specialist Cardiology 07/10/21 Blanco Edwards NP [address] [place] [address] [phone] Specialist Cardiology 08/02/22 documented as of this encounter
--- OUTSIDE RECORDS SUMMARY | 2025-06-23 16:26 | XMS_ITS | Encounter Summary ---
Author Organization [facility] Address [address] [place] [address] Care Team Providers Care Market Maker Name Role Phone Ashwin Arzola MD Primary Care Provider [phone] Sotero Connell MD Unavailable [phone] Blanco Edwards NP Unavailable [phone] Encounter Details Date Type Department Care Team Description 06/21/2022 SCAN [facility] [address] [phone] Linus Luna DPM [address] [address] Social History Tobacco Use Types Packs/Day Years [...] on filedocumented in this encounter Care Teams Market Maker Relationship Specialty Start Date End Date Ashwin Arzola MD [address] [place] [address] [phone] PCP - General Internal Medicine 08/01/20 Sotero Connell MD [address] [place] [address] Specialist Cardiology 07/10/21 Blanco Edwards NP [address] [place] [address] Specialist Cardiology 08/02/22 documented as of this encounter
--- OUTSIDE RECORDS SUMMARY | 2025-06-23 16:26 | XMS_ITS | Encounter Summary ---
Author Organization [facility] Address [address] [place] [address] Care Team Providers Care Bathhouse Attendant Name Role Phone Ashwin Arzola MD Primary Care Provider [phone] Sotero Connell MD Unavailable [phone] Blanco Edwards NP Unavailable [phone] Reason for Visit * Reason Onset Date Comments DME Request 03/20/2022 Encounter Details Date Type Department Care Team Description 03/20/2022 Telephone Pulmonology - [place] [address] [facility] [address] [place] [phone] Blane Shah MD DME Request Social History Tobacco Use Types [...] suspected to have Coronavirus/COVID-19? No / Unsure 03/20/2022 1:21 PM EDT documented as of this encounter Miscellaneous Notes * Telephone Encounter - Shari Muller - 03/20/2022 2:16 PM EDT Done faxed order to [facility] for supplies documented in this encounter Plan of Treatment Not on file documented as of this encounter Visit Diagnoses Not on filedocumented in this encounter Care Teams Bathhouse Attendant Relationship Specialty Start Date End Date Ashwin Arzola MD [address] [place] [address] PCP - General Internal Medicine 08/01/20 Sotero Connell MD [address] [place] [address] [phone] Specialist Cardiology 07/10/21 Blanco Edwards NP [address] [place] [address] [phone] Specialist Cardiology 08/02/22 documented as of this encounter
--- OUTSIDE RECORDS SUMMARY | 2025-06-23 16:26 | XMS_ITS | Encounter Summary ---
Author Organization [facility] Address [address] [place] [address] Care Team Providers Care Outside Sales Account Manager Name Role Phone Name, Braulio CHIANG Primary Care Provider Unavailabl e Dudley Brown MD Primary Care Provider Unavail able Ajit Montanez MD Primary Care Provide r Unavailable Sujey Browning MD Primary Care Provider Un available Dudley Brown MD Primary Care Provider Unavail able Nancy Vines DO Primary Care Pro vider Unavailable Ashwin Arzola MD Primary Care Provider Sujey Browning MD Primary Care Provider Un available Sotero Connell MD Unavailable [phone] Blanco Edwards NP Unavailable [phone] Reason for Visit * Reason Onset Date Comments DME Request 05/28/2013 lesli Encounter Details Date Type Department Care Team Description 05/28/2013 Telephone Adult Medicine [address] [phone] Britt Flores NP DME Request (lesli) Social [...] - 05/28/2013 4:37 PM EDT FORM ON [employer] DESK * Telephone Encounter - Karishma Castaneda - 05/28/2013 4:25 PM EDT Name of Product: Compression stockings Specific information about product fax to increase compression # Needed see fax Reason/Diagnosis: unknown When completed: fax to Lesli [phone] documented in this encounter Plan of Treatment Not on file documented as of this encounter Visit Diagnoses Not on filedocumented in this encounter Care Teams Outside Sales Account Manager Relationship Specialty Start Date End Date Name, [...] Internal Medicine 04/13/20 07/31/20 Ashwin Arzola MD [address] [place] [address] 559[address] PCP - General Internal Medicine 08/01/20 Sujey Browning MD PCP - General 07/03/15 11/12/15 Sotero Connell MD [address] [place] [address] Specialist Cardiology 07/10/21 Blanco Edwards NP [address] [place] [address] 22739 Specialist Cardiology 08/02/22 documented as of this encounter
--- OUTSIDE RECORDS SUMMARY | 2025-06-23 16:26 | XMS_ITS | Encounter Summary ---
Author Organization [facility] Address [address] [place] [address] Care Team Providers Care Research Leader Name Role Phone Ashwin rAzola MD Primary Care Provider Sotero Connell MD Unavailable [phone] Blanco Edwards NP Unavailable [phone] Reason for Visit * Reason Onset Date Comments Faxed Order 04/29/2024 Scott Patino carlyn Report (02/28/24-04/21/24) Encounter Details Date Type Department Care Team Description 04/29/2024 Telephone Adult Medicine [address] [phone] Ashwin Arzola MD [address] [place] [address] 16[address] Faxed Order (Scott Lawson/Summary Report (02/28/24-04/21/24)) Social [...] on filedocumented in this encounter Care Teams Research Leader Relationship Specialty Start Date End Date Ashwin Arzola MD [address] [place] [address] 64775 PCP - General Internal Medicine 08/01/20 Sotero Connell MD [address] [place] [address] 8[address] Specialist Cardiology 07/10/21 lBanco Edwards NP [address] [place] [address] 8[address] Specialist Cardiology 08/02/22 documented as of this encounter
--- OUTSIDE RECORDS SUMMARY | 2025-06-23 16:26 | XMS_ITS | Encounter Summary ---
Author Organization [facility] Address [address] [place] [address] Care Team Providers Care Door Assembler Name Role Phone Name, Braulio CHIANG Primary Care Provider Unavailabl Dudley Mancuso MD Primary Care Provider Unavail able Ajit Montanez MD Primary Care Provide r Unavailable Sujey Browning MD Primary Care Provider Un available Dudley Brown MD Primary Care Provider Unavail able Nancy Vines DO Primary Care Pro vider Unavailable Ashwin Arzola MD Primary Care Provider [phone] Sujey Browning MD Primary Care Provider Un available Sotero Connell MD Unavailable [phone] Blanco Edwards NP Unavailable [phone] Encounter Details Date Type Department Care Team Description 05/29/2015 Release of Information Medical Records [address] [place] [address] Abstract, Provider Social History Tobacco Use Types [...] on filedocumented in this encounter Care Teams Door Assembler Relationship Specialty Start Date End Date Name, [...] Medicine 04/13/20 07/31/20 Ashwin Arzola MD [address] [place] [address] [phone] PCP - General Internal Medicine 08/01/20 Sujey Browning MD PCP - General 07/03/15 11/12/15 Sotero Connell MD [address] [place] [address] [phone] Specialist Cardiology 07/10/21 Blanco Edwards NP [address] [place] [address] 31764 Specialist Cardiology 08/02/22 documented as of this encounter
--- OUTSIDE RECORDS SUMMARY | 2025-06-23 16:26 | XMS_ITS | Encounter Summary ---
Author Organization [facility] Address [address] [place] [address] Care Team Providers Care Bicycle Rental Clerk Name Role Phone Dudley Brown MD Primary Care Provider Unavail able Nancy Vines DO Primary Care Pro vider Unavailable Ashwin Arzola MD Primary Care Provider [phone] Sotero Connell MD Unavailable [phone] Blanco Edwards NP Unavailable [phone] Encounter Details Date Type Department Care Team Description 09/07/2019 Orders Only Medical Records [address] [place] [address] 79651 Daisy Singh MD Social History Tobacco Use Types Packs/Day [...] Name Priority Date/Time Associated Diagnosis Comments OUTSIDE PATHOLOGY Routine 09/02/2019 documented in this encounter Results * OUTSIDE PATHOLOGY (09/02/2019) Daisy Singh MD OUTSIDE LAB documented in this encounter Visit Diagnoses Not on filedocumented in this encounter Care Teams Bicycle Rental Clerk Relationship Specialty Start Date End Date Dudley Brown MD PCP - General Internal Medicine 08/03/19 04/12/20 Nancy Vines DO PCP - General Internal Medicine 04/13/20 07/31/20 Ashwin Arzola MD [address] [place] [address] 26446 PCP - General Internal Medicine 08/01/20 Sotero Connell MD [address] [place] [address] 0[address]20 Specialist Cardiology 07/10/21 Blanco Edwards NP [address] [place] [address] 0[address]20 Specialist Cardiology 08/02/22 documented as of this encounter
--- OUTSIDE RECORDS SUMMARY | 2025-06-23 16:26 | XMS_ITS | Encounter Summary ---
Author Organization [facility] Address [address] [place] [address] Care Team Providers Care Decorating Inspector Name Role Phone Ashwin Arzola MD Primary Care Provider Sotero Connell MD Unavailable [phone] Blanco Edwards NP Unavailable [phone] Reason for Visit * Reason Onset Date Comments Faxed Order 07/23/2024 [facility] Ord er # [id number] Encounter Details Date Type Department Care Team Description 07/23/2024 Telephone Adult Medicine [address] [address] Ashwin Arzola MD [address] [place] [address] 58658 Faxed Order ([facility] Order # [id number]) Social History Tobacco Use Types Packs/Day Years [...] faxed order from [facility] Order # [id number]. Please sign, date, and fax back to [phone] documented in this encounter Plan of Treatment Not on file documented as of this encounter Visit Diagnoses Not on filedocumented in this encounter Care Teams Decorating Inspector Relationship Specialty Start Date End Date Ashwin Arzola MD [address] [place] [address] 01020 PCP - General Internal Medicine 08/01/20 Sotero Connell MD [address] [place] [address] 01020 Specialist Cardiology 07/10/21 Blanco Edwards NP [address] [place] [address] 01020 Specialist Cardiology 08/02/22 documented as of this encounter
--- OUTSIDE RECORDS SUMMARY | 2025-06-23 16:26 | XMS_ITS | Encounter Summary ---
Author Organization [facility] Address [address] [place] [address] Care Team Providers Care Wrapper Dipper Name Role Phone Ashwin Arzola MD Primary Care Provider [phone] Sotero Connell MD Unavailable [phone] Blanco Edwards NP Unavailable [phone] Reason for Visit * Reason Onset Date Comments Faxed Order 01/12/2024 Scott Lawson - [id number] Encounter Details Date Type Department Care Team Description 01/12/2024 Telephone Adult Medicine [address] [phone] Ashwin Arzola MD [address] [place] [address] [phone] Faxed Order (Scott Lawson - [id number]) Social History Tobacco Use Types Packs/Day Years [...] encounter Miscellaneous Notes * Telephone Encounter - Hussein Corcoran - 01/12/2024 11:55 AM EDT Order #[id number] received and placed in providers bin documented in this encounter Plan of Treatment Not on file documented as of this encounter Visit Diagnoses Not on filedocumented in this encounter Care Teams Wrapper Dipper Relationship Specialty Start Date End Date Ashwin Arzola MD [address] [place] [address] 61595 PCP - General Internal Medicine 08/01/20 Sotero Connell MD [address] [place] [address] 01020 Specialist Cardiology 07/10/21 Blanco Edwards NP [address] [place] [address] [phone] Specialist Cardiology 08/02/22 documented as of this encounter
--- OUTSIDE RECORDS SUMMARY | 2025-06-23 16:26 | XMS_ITS | Encounter Summary ---
Author Organization [facility] Address [address] [place] [address] Care Team Providers Care Apron Cleaner Name Role Phone Dudley Brown MD Primary Care Provider Unavail able Nancy Vines DO Primary Care Pro vider Unavailable Ashwin Arzola MD Primary Care Provider [phone] Sotero Connell MD Unavailable [phone] Blanco Edwards NP Unavailable [phone] Encounter Details Date Type Department Care Team Description 09/02/2019 Hospital Medical Records [address] [place] [address] Daisy Singh MD Social History Tobacco Use [...] on filedocumented in this encounter Care Teams Apron Cleaner Relationship Specialty Start Date End Date Dudley Brown MD PCP - General Internal Medicine 08/03/19 04/12/20 Nancy Vines DO PCP - General Internal Medicine 04/13/20 07/31/20 Ashwin Arzola MD [address] [place] [address] 01020 PCP - General Internal Medicine 08/01/20 Sotero Connell MD [address] [place] [address] 01020 Specialist Cardiology 07/10/21 Blanco Edwards, [place] [address] [place] [address] Specialist Cardiology 08/02/22 documented as of this encounter
--- OUTSIDE RECORDS SUMMARY | 2025-06-23 16:26 | XMS_ITS | Encounter Summary ---
Author Organization [facility] Address [address] [place] [address] Care Team Providers Care Catalog Librarian Name Role Phone Ashwin Arzola MD Primary Care Provider [phone] Sotero Connell MD Unavailable [phone] Blanco Edwards NP Unavailable [phone] Reason for Visit * Reason Onset Date Comments Faxed Order 07/14/2024 [facility] # [id number], [id number] Encounter Details Date Type Department Care Team Description 07/14/2024 Telephone Adult Medicine [facility] [address] [place] [address] [phone] Ashwin Arzola MD [address] [place] [address] Faxed Order ([facility]/Order # [id number], [id number]) Social History Tobacco Use Types Packs/Day Years [...] * Telephone Encounter - Fartun Somers - 07/14/2024 1:54 PM EDT Faxed orders [id number], [id number] from [facility] and placed in provider bin. Please review, sign, and fax to [phone] documented in this encounter Plan of Treatment Not on file documented as of this encounter Visit Diagnoses Not on filedocumented in this encounter Care Teams Catalog Librarian Relationship Specialty Start Date End Date Ashwin Arzloa MD [address] [place] [address] [phone] PCP - General Internal Medicine 08/01/20 Sotero Connell MD [address] [place] [address] [phone] Specialist Cardiology 07/10/21 Blanco Edwards NP [address] [place] [address] [phone] Specialist Cardiology 08/02/22 documented as of this encounter
--- OUTSIDE RECORDS SUMMARY | 2025-06-23 16:26 | XMS_ITS | Encounter Summary ---
Author Organization [facility] Address [address] [place] [address] Care Team Providers Care Bullet Slug Casting Machine Operator Name Role Phone Sujey Browning MD Primary Care Provider Un available Dudley Brown MD Primary Care Provider Unavail able Nancy Vines DO Primary Care Pro vider Unavailable Ashwin Arzola MD Primary Care Provider [phone] Sotero Connell MD Unavailable [phone] Blanco Edwards NP Unavailable [phone] Encounter Details Date Type Department Care Team Description 01/29/[address] [phone] Sujey Browning MD Social History Tobacco Use [...] on filedocumented in this encounter Care Teams Bullet Slug Casting Machine Operator Relationship Specialty Start Date End Date Sujey Browning MD PCP - General Internal Medicine 03/27/1608/02 Dudley Brown MD PCP - General Internal Medicine 08/03/19 04/12/20 Nancy Vines DO PCP - General Internal Medicine 04/13/20 07/31/20 Ashwin Arzola MD [address] [place] [address] 78257 PCP - General Internal Medicine 08/01/20 Sotero Connell MD [address] [place], [place] [phone] Specialist Cardiology 07/10/21 Blanco Edwards NP [address] [place] [address] [phone] Specialist Cardiology 08/02/22 documented as of this encounter
--- OUTSIDE RECORDS SUMMARY | 2025-06-23 16:26 | XMS_ITS | Encounter Summary ---
Author Organization [facility] Address [address] [place] [address] Care Team Providers Care Detective Name Role Phone Ashwin Arzola MD Primary Care Provider [phone] Sotero Connell MD Unavailable [phone] Blanco Edwards NP Unavailable [phone] Encounter Details Date Type Department Care Team Description 04/10/2024 Hospital Medical Records [address] [place] [address] [facility] Social History Tobacco Use Types Packs/Day [...] on filedocumented in this encounter Care Teams Detective Relationship Specialty Start Date End Date Ashwin Arzola MD [address] [place] [address] [phone] PCP - General Internal Medicine 08/01/20 Sotero Connell MD [address] [place] [address] [phone] Specialist Cardiology 07/10/21 Blanco Edwards NP [address] [place] [address] 01020 Specialist Cardiology 08/02/22 documented as of this encounter
--- OUTSIDE RECORDS SUMMARY | 2025-06-23 16:26 | XMS_ITS | Encounter Summary ---
Author Organization [facility] Address [address] [place] [address] Care Team Providers Care Director Of Corporate Sales Name Role Phone Sujey Browning MD Primary Care Provider Un available Dudley Brown MD Primary Care Provider Unavail able Nancy Vines DO Primary Care Pro vider Unavailable Ashwin Arzola MD Primary Care Provider [phone] Sotero Connell MD Unavailable [phone] [facility] Unavailable [phone] Encounter Details Date Type Department Care Team Description 01/09/2017 Hospital Medical Records [address] [place] [address] 69772 Abstract, Provider Social History Tobacco Use Types [...] in this encounter Care Teams Director Of Corporate Sales Relationship Specialty Start Date End Date Sujey Browning MD PCP - General Internal Medicine 03/27/1608/02 Dudley Brown MD PCP - General Internal Medicine 08/03/19 04/12/20 Nancy Vines DO PCP - General Internal Medicine 04/13/20 07/31/20 Ashwin Arzola MD [address] [place] [address] [phone] PCP - General Internal Medicine 08/01/20 Sotero Connell MD [address] [place] [address] Specialist Cardiology 07/10/21 Blanco Edwards NP [address] [place] [address] 13337 Specialist Cardiology 08/02/22 documented as of this encounter
--- OUTSIDE RECORDS SUMMARY | 2025-06-23 16:26 | XMS_ITS | Encounter Summary ---
Author Organization [facility] Address [address] [place] [address] Care Team Providers Care Hris Manager Name Role Phone Dudley Brown MD Primary Care Provider Unavail able Nancy Vines DO Primary Care Pro vider Unavailable Ashwin Arzola MD Primary Care Provider [phone] Sotero Connell MD Unavailable [phone] Blanco Edwards NP Unavailable [phone] Encounter Details Date Type Department Care Team Description 01/21/2020 Refill Adult Medicine [address] [phone] Dudley Brown MD Social History Tobacco Use [...] on filedocumented in this encounter Care Teams Hris Manager Relationship Specialty Start Date End Date Dudley Brown MD PCP - General Internal Medicine 08/03/19 04/12/20 Nancy Vines DO PCP - General Internal Medicine 04/13/20 07/31/20 Ashwin Arzola MD [address] [place] [address] 0[address]20 PCP - General Internal Medicine 08/01/20 Sotero Connell MD [address] [place] [address] [phone] Specialist Cardiology 07/10/21 Blanco Edwards NP [address] [facility] JUSTA Patel [phone] Specialist Cardiology 08/02/22 documented as of this encounter
--- OUTSIDE RECORDS SUMMARY | 2025-06-23 16:26 | XMS_ITS | Encounter Summary ---
Author Organization [facility] Address [address] [place] [address] Care Team Providers Care Thimble Press Operator Name Role Phone Ashwin Arzola MD Primary Care Provider [phone] Sotero Connell MD Unavailable [phone] Blanco Edwards NP Unavailable [phone] Encounter Details Date Type Department Care Team Description 02/10/2024 Orders Only Medical Records [address] [place] [address] [facility] Social History Tobacco Use Types Packs/Day [...] this encounter Results * OUTSIDE CT (02/09/2024) [facility] RADIOLOGY documented in this encounter Visit Diagnoses Not on filedocumented in this encounter Care Teams Thimble Press Operator Relationship Specialty Start Date End Date Ashwin Arzola MD [address] [place] [address] [phone] PCP - General Internal Medicine 08/01/20 Sotero Connell MD [address] [place] [address] Specialist Cardiology 07/10/21 Blanco Edwards NP [address] [place] [address] Specialist Cardiology 08/02/22 documented as of this encounter
--- OUTSIDE RECORDS SUMMARY | 2025-06-23 16:26 | XMS_ITS | Encounter Summary ---
Author Organization [facility] Address [address] [place] [address] Care Team Providers Care Reflector Driller And Deburrer Name Role Phone Dudley Brown MD Primary Care Provider Unavail able Ajit Montanez MD Primary Care Provide r Unavailable Sujey Browning MD Primary Care Provider Un available Dudley Brown MD Primary Care Provider Unavail able Nancy Vines DO Primary Care Pro vider Unavailable Ashwin Arzola MD Primary Care Provider [phone] Sujey Browning MD Primary Care Provider Un available Sotero Connell MD Unavailable [phone] Blanco Edwards NP Unavailable [phone] Encounter Details Date Type Department Care Team Description 08/28/2015 Account Manager Education Report Medical Records [address] [place] [address] Erik Langford MD Social History Tobacco Use [...] on filedocumented in this encounter Care Teams Reflector Driller And Deburrer Relationship Specialty Start Date End Date Dudley Brown MD PCP - General Internal Medicine 11/13/15 11/30/15 Ajit Montanez MD PCP - General Internal Medicine 12/01/15 Sujey Browning MD PCP - General Internal Medicine 03/27/1608/02 Dudley Brown MD PCP - General Internal Medicine 08/03/19 04/12/20 Nancy Vines DO PCP - General Internal Medicine 04/13/20 07/31/20 Ashwin Arzola MD [address] [place] [address] [phone] PCP - General Internal Medicine 08/01/20 Sujey Browning MD PCP - General 07/03/15 11/12/15 Sotero Connell MD [address] [place] [address] [phone] Specialist Cardiology 07/10/21 Blanco Edwards NP [address] [place] [address] [phone] Specialist Cardiology 08/02/22 documented as of this encounter
--- OUTSIDE RECORDS SUMMARY | 2025-06-23 16:26 | XMS_ITS | Encounter Summary ---
Author Organization [facility] Address [address] [place] [address] Care Team Providers Care Timber Skidder Name Role Phone Ashwin Arzola MD Primary Care Provider [phone] Sotero Connell MD Unavailable [phone] Blanco Edwards NP Unavailable [phone] Encounter Details Date Type Department Care Team Description 06/10/2022 SCAN [facility] Medical [facility] [address] [phone] Linus Luna DPM [address] [address] Social History Tobacco Use Types Packs/Day Years [...] on filedocumented in this encounter Care Teams Timber Skidder Relationship Specialty Start Date End Date Ashwin Arzola MD [address] [place] [address] [phone] PCP - General Internal Medicine 08/01/20 Sotero Connell MD [address] [place] [address] Specialist Cardiology 07/10/21 Blanco Edwards NP [address] [place] [address] Specialist Cardiology 08/02/22 documented as of this encounter
--- OUTSIDE RECORDS SUMMARY | 2025-06-23 16:26 | XMS_ITS | Encounter Summary ---
Author Organization [facility] Address [address] [place] [address] Care Team Providers Care Towboat Engineer Name Role Phone Ashwin Arzola MD Primary Care Provider [phone] Sotero Connell MD Unavailable [phone] Blanco Edwards NP Unavailable [phone] Reason for Visit * Reason Onset Date Comments Prior Authorization 02/16/2024 Sleep Study Encounter Details Date Type Department Care Team Description 02/16/2024 Telephone Pulmonology - [place] 175 [facility] [address] [place] [phone] Blane Shah MD Prior Authorization (Sleep Study ) Social History Tobacco Use Types Packs/Day [...] encounter Miscellaneous Notes * Telephone Encounter - Estefania Lopez - 02/16/2024 4:26 PM EDT CCA has been added to patient chart * Telephone Encounter - Estefania Lopez - 02/16/2024 3:01 PM EDT Patient has CCA now, adding on chart * Telephone Encounter - Dayami Galvin - 02/16/2024 2:15 PM EDT Per [facility] rep, patient's insurance termed as of 01/10/24. Please verify insurance documented in this encounter Plan of Treatment Not on file documented as of this encounter Visit Diagnoses Not on filedocumented in this encounter Care Teams Towboat Engineer Relationship Specialty Start Date End Date Ashwin Arzola MD [address] [place] [address] PCP - General Internal Medicine 08/01/20 Sotero Connell MD [address] [place] [address] Specialist Cardiology 07/10/21 Blanco Edwards NP [address] [place] [address] Specialist Cardiology 08/02/22 documented as of this encounter
--- OUTSIDE RECORDS SUMMARY | 2025-06-23 16:26 | XMS_ITS | Encounter Summary ---
Author Organization [facility] Address [address] [place] [address] Care Team Providers Care Air Plant Engineer Name Role Phone Ashwin Arzola MD Primary Care Provider [phone] Sotero Connell MD Unavailable [phone] Blanco Edwards NP Unavailable [phone] Reason for Visit * Reason Onset Date Comments Medication 02/26/2022 Encounter Details Date Type Department Care Team Description 02/26/2022 Telephone [facility] [address] [phone] Linus Luna DPM [address] [phone] Medication Social History Tobacco Use Types Packs/Day [...] 2:25 PM EDT Received incoming call from [employer], they need Clarification on the Gabapentin. They need to know how many tabs the patient should be taking daily Pleae call pharmacy back @ [phone]. documented in this encounter Plan of Treatment Not on file documented as of this encounter Visit Diagnoses Not on filedocumented in this encounter Care Teams Air Plant Engineer Relationship Specialty Start Date End Date Ashwin Arzola MD [address] [place] [address] PCP - General Internal Medicine 08/01/20 Sotero Connell MD [address] [place] [address] Specialist Cardiology 07/10/21 Blanco Edwards NP [address] [place] [address] Specialist Cardiology 08/02/22 documented as of this encounter
--- OUTSIDE RECORDS SUMMARY | 2025-06-23 16:26 | XMS_ITS | Encounter Summary ---
Author Organization [facility] Address [address] [place] [address] Care Team Providers Care Lan Administrator Name Role Phone Ashwin Arzola MD Primary Care Provider Sotero Connell MD Unavailable [phone] Blanco Edwards NP Unavailable [phone] Reason for Referral * EXTERNAL (Routine) - Authorized/Booked Specialty Diagnoses / Procedures Referred By Contac t Referred To Contact Physical Therapy Diagnoses Weakness of both lower extremities Multiple falls Procedures REFERRAL TO PHYSICAL THERAPY Ashwin Arzola MD [address] [place] [address] [facility] Referral ID Status Reason Start Date Expiration Date V isits Requested Visits Authorized [id number] Authorized/B ooked 08/13/2022 11/14/2022 1 1 Reason for Visit * Reason Onset Date Comments Manager Of Operations Feedback 08/13/2022 Physical Therapy Encounter Details Date Type Department Care Team Description 08/13/2022 Telephone Adult Medicine [address] [phone] Ashwin Arzola MD [address] [place] [address] Manager Of Operations Feedback (Physical Therapy) Social History Tobacco Use [...] process [facility] documented in this encounter Plan of Treatment Not on file documented as of this encounter Visit Diagnoses Diagnosis Weakness of both lower extremities- Primary Multiple falls Personal history of fall documented in this encounter Care Teams Lan Administrator Relationship Specialty Start Date End Date Ashwin Arzola MD [address] [place] [address] PCP - General Internal Medicine 08/01/20 Sotero Connell MD [address] [place] [address] Specialist Cardiology 07/10/21 Blanco Edwards NP [address] [place] [address] [phone] Specialist Cardiology 08/02/22 documented as of this encounter
--- OUTSIDE RECORDS SUMMARY | 2025-06-23 16:26 | XMS_ITS | Encounter Summary ---
Author Organization [facility] Address [address] [place] [address] Care Team Providers Care Transportation Driver Name Role Phone Name, Braulio CHIANG Primary Care Provider Unavailabl e Dudley Brown MD Primary Care Provider Unavail able Ajit Montanez MD Primary Care Provide r Unavailable Sujey Browning MD Primary Care Provider Un available Dudley Brown MD Primary Care Provider Unavail able Nancy Vines DO Primary Care Pro vider Unavailable Ashwin Arzola MD Primary Care Provider [phone] Sujey Browning MD Primary Care Provider Un available Sotero Connell MD Unavailable [phone] Blanco Edwards NP Unavailable [phone] Reason for Visit * Reason Comments E-prescribe Rx Request Encounter Details Date Type Department Care Team Description 06/15/2014 Refill Adult Medicine [address] [phone] Name, MD Braulio E-prescribe Rx Request Social [...] Telephone Encounter - Tamiko López M.A. - 06/16/2014 11:09 AM EDT Pt aware she had to oyster picker hydrocodone script in the office? * Telephone Encounter - Winnie Hernandez L.P.N. - 06/15/2014 3:34 PM EDT rx from 06/09 not processed. No narcotic contract on file. Pt due for meds. * Telephone Encounter - Latasha Hartley M.A. - 06/15/2014 2:27 PM EDT Component Value Date CHOL 211 11/05/2013 LDL 116 11/05/2013 HDL 75 11/05/2013 TRIG 103 11/05/2013 SGOT 12 01/20/2014 SGPT 10 01/20/2014 Pending appt with pcp 07/18/14 * Telephone Encounter - Lashaun Rizvi - 06/15/2014 12:48 PM EDT Patient would like script to be: E-PRESCRIBED/FAXED TO PHARMACY WHEN WAS THE PATIENT'S LAST APPOINTMENT IN ADULT MEDICINE? [id number] WHEN WAS THE LAST TIME THE PATIENT SAW THEIR PCP? Same as above Does patient have an upcoming appointment? Yes [id number] (THE MEDICATION REQUESTED IS ON THE MED LIST ABOVE) All of the medications requested were on the CURRENT MEDS list Did you check the Pharmacy information above?: YES Patient wants: 30 -day supply Is this a mail order prescription request ? NO Patients current insurance carrier is: Payor: [employer] FFS / Plan: FFS HMO $0 [place] [id number] / Product Type: MEDICAID RISK documented in this encounter Plan of Treatment Not on file documented as of this encounter Visit Diagnoses Not on filedocumented in this encounter Care Teams Transportation Driver Relationship Specialty Start Date End Date [...] Medicine 04/13/20 07/31/20 Ashwin Arzola MD [address] [place] [address] PCP - General Internal Medicine 08/01/20 Sujey Browning MD PCP - General 07/03/15 11/12/15 Sotero Connell MD [address] [place] [address] Specialist Cardiology 07/10/21 Blanco Edwards NP [address] [place] [address] Specialist Cardiology 08/02/22 documented as of this encounter
--- OUTSIDE RECORDS SUMMARY | 2025-06-23 16:26 | XMS_ITS | Encounter Summary ---
Author Organization [facility] Address [address] [place] [address] Care Team Providers Care Polygraph Operator Name Role Phone Ashwin Arzola MD Primary Care Provider Sotero Connell MD Unavailable [phone] Blanco Edwards NP Unavailable [phone] Reason for Visit * Reason Comments E-prescribe Rx Request Encounter Details Date Type Department Care Team Description 02/18/2024 Refill Adult Medicine [facility] [address] [place] [address] [phone] Ashwin Arzola MD [address] [place] [address] [phone] E-prescribe Rx Request Social History Tobacco Use [...] on filedocumented in this encounter Care Teams Polygraph Operator Relationship Specialty Start Date End Date Ashwin Arzola MD [address] [place] [address] PCP - General Internal Medicine 08/01/20 Sotero Connell MD [address] [place] [address] Specialist Cardiology 07/10/21 Blanco Edwards NP [address] [place] [address] [phone] Specialist Cardiology 08/02/22 documented as of this encounter
--- OUTSIDE RECORDS SUMMARY | 2025-06-23 16:26 | XMS_ITS | Encounter Summary ---
Author Organization [facility] Address [address] [place] [address] Care Team Providers Care Paper Cap Machine Operator Name Role Phone Ashwin Arzola MD Primary Care Provider [phone] Sotero Connell MD Unavailable [phone] Blanco Edwards NP Unavailable [phone] Encounter Details Date Type Department Care Team Description 08/23/2022 Telephone Cardio PVCA Diag Testing [address] [facility] [address] [place] [address] Blanco Edwards NP [address] [place] [address] [phone] Social History Tobacco Use Types Packs/Day Years [...] suspected to have Coronavirus/COVID-19? No / Unsure 08/22/2022 12:38 PM EST documented as of this encounter Miscellaneous Notes * Telephone Encounter - Radha Butterfield C.M.A. - 08/23/2022 4:24 PM EST I spoke to Melyssa and advised on lab results--she is happy to hear this---she does tell me she stillhas off and on chest pain accompanied by left arm numbness, nausea, and headaches, she has LES, fullness in her abdomen, She is more sob so she is staying at home these days--she is hydrating well and is urinating accordingly, she did not remember the vitals but states yesterday her bp here was 156/? She states due to suffering from depression and anxiety she has noticed her wt has gone up since 03/2022 from 191 to 209<--yesterday No active CP at the moment she is feeling fine * Telephone Encounter - Blanco Edwards NP - 08/23/2022 4:03 PM EST Could you please call pt and tell her the labs looked fine as well as ask how she is doing? Awaiting echocardiogram results still. Will let her know when they are available. documented in this encounter Plan of Treatment Not on file documented as of this encounter Visit Diagnoses Not on filedocumented in this encounter Care Teams Paper Cap Machine Operator Relationship Specialty Start Date End Date Ashwin Arzola MD [address] [place] [address] PCP - General Internal Medicine 08/01/20 Sotero Connell MD [address] [place] [address] Specialist Cardiology 07/10/21 Blanco Edwards NP [address] [place] [address] Specialist Cardiology 08/02/22 documented as of this encounter
--- OUTSIDE RECORDS SUMMARY | 2025-06-23 16:26 | XMS_ITS | Encounter Summary ---
Author Organization [facility] Address [address] [place] [address] Care Team Providers Care Manager Test Name Role Phone Ashwin Arzola MD Primary Care Provider [phone] Sotero Connell MD Unavailable [phone] Blanco Edwards NP Unavailable [phone] Reason for Visit * Reason Comments E-prescribe Rx Request Encounter Details Date Type Department Care Team Description 03/01/2022 Refill Adult Medicine [facility] [address] [place], [place] [phone] Ashwin Arzola MD [address] [place] [address] [phone] E-prescribe Rx Request Social History Tobacco Use [...] encounter Miscellaneous Notes * Telephone Encounter - Aleja Lord M.A. - 03/01/2022 1:12 PM EDT Rx currently under Provider Default in pt's chart; however, I do see that this has been prescribed in Adult Med in the past. Lab Results Component Value Date HGBA1C 8.2 11/20/2021 MALBUR 5.4 12/06/2021 MALBCR < 23.4 12/06/2021 CHOL 143 11/20/2021 LDL 55 11/20/2021 HDL 52 11/20/2021 TRIG 181 11/20/2021 GLU 117 11/20/2021 CREAT 0.76 11/20/2021 ADRIANNA w/PCP 01/11/2022 Next OV 06/07/2022 w/PCP * Telephone Encounter - Sandra Vazquez - 03/01/2022 12:59 PM EDT Patient would like script to be: E-PRESCRIBED/FAXED TO PHARMACY WHEN WAS THE PATIENT'S LAST APPOINTMENT IN ADULT MEDICINE? 01/11/2022 WHEN WAS THE LAST TIME THE PATIENT SAW THEIR PCP? Same as above Does patient have an upcoming appointment? Yes 06/07/2022 (THE MEDICATION REQUESTED IS ON THE MED [...] N/A Patients current insurance carrier is: Payor: [employer] / Plan: Lono $0 [employer] [id number] / Product Type: HMO [id number] documented in this encounter Plan of Treatment Not on file documented as of this encounter Visit Diagnoses Not on filedocumented in this encounter Care Teams Manager Test Relationship Specialty Start Date End Date Ashwin Arzola MD [address] [place] [address] PCP - General Internal Medicine 08/01/20 Sotero Connell MD [address] [place] [address] [phone] Specialist Cardiology 07/10/21 Blanco Edwards NP [address] [place] [address] [phone] Specialist Cardiology 08/02/22 documented as of this encounter
--- OUTSIDE RECORDS SUMMARY | 2025-06-23 16:26 | XMS_ITS | Encounter Summary ---
Author Organization [facility] Address [address] [place] [address] Care Team Providers Care Automatic Riveting Machine Operator Name Role Phone Ashwin Arzola MD Primary Care Provider [phone] Sotero Connell MD Unavailable [phone] Blanco Edwards NP Unavailable [phone] Encounter Details Date Type Department Care Team Description 03/15/2024 Orders Only Medical Records [address] [place] [address] [facility] Social History Tobacco Use Types Packs/Day [...] on filedocumented in this encounter Care Teams Automatic Riveting Machine Operator Relationship Specialty Start Date End Date Ashwin Arzola MD [address] [place] [address] [phone] PCP - General Internal Medicine 08/01/20 Sotero Connell MD [address] [place] [address] Specialist Cardiology 07/10/21 Blanco Edwards NP [address] [place] [address] Specialist Cardiology 08/02/22 documented as of this encounter
--- OUTSIDE RECORDS SUMMARY | 2025-06-23 16:26 | XMS_ITS | Encounter Summary ---
Author Organization [facility] Address [address] [place] [address] Care Team Providers Care Electronic Parts Salesperson Name Role Phone Ashwin Arzola MD Primary Care Provider [phone] Sotero Connell MD Unavailable [phone] Blanco Edwards NP Unavailable [phone] Reason for Visit * Reason Onset Date Comments Faxed Order 03/10/2024 [facility] er # [id number] Encounter Details Date Type Department Care Team Description 03/10/2024 Telephone Adult Medicine [address] [phone] Ashwin Arzola MD [address] [place] [address] [phone] Faxed Order ([facility] Order # [id number]) Social History Tobacco Use Types Packs/Day Years [...] in this encounter Care Teams Electronic Parts Salesperson Relationship Specialty Start Date End Date Ashwin Arzola MD [address] [place] [address] PCP - General Internal Medicine 08/01/20 Sotero Connell MD [address] [place] [address]20 Specialist Cardiology 07/10/21 Blanco Edwards NP [address] [place] [address] Specialist Cardiology 08/02/22 documented as of this encounter
--- OUTSIDE RECORDS SUMMARY | 2025-06-23 16:26 | XMS_ITS | Encounter Summary ---
Author Organization [facility] Address [address] [place] [address] Care Team Providers Care Washhouse Worker Name Role Phone Ashwin Arzola MD Primary Care Provider [phone] Sotero Connell MD Unavailable [phone] Blanco Edwards NP Unavailable [phone] Encounter Details Date Type Department Care Team Description 12/30/2023 Home Health Certification Medical Records [address] [place] [address] Scott Lawson Social History Tobacco Use Types [...] on filedocumented in this encounter Care Teams Washhouse Worker Relationship Specialty Start Date End Date Ashwin Arzola MD [address] [place] [address] [phone] PCP - General Internal Medicine 08/01/20 Sotero Connell MD [address] [place] [address] [phone] Specialist Cardiology 07/10/21 Blanco Edwards NP [address] [place] [address] [phone] Specialist Cardiology 08/02/22 documented as of this encounter
--- OUTSIDE RECORDS SUMMARY | 2025-06-23 16:26 | XMS_ITS | Encounter Summary ---
Author Organization [facility] Address [address] [place] [address] Care Team Providers Care Hearing Therapy Director Name Role Phone Ashwin Arzola MD Primary Care Provider Sotero Connell MD Unavailable [phone] Blanco Edwards NP Unavailable [phone] Encounter Details Date Type Department Care Team Description 05/14/2024 Home Health Certification Medical Records [address] [place] [address] [facility], [employer] [address] [facility] [address] [place] [address] Social History Tobacco Use Types Packs/Day Years [...] on filedocumented in this encounter Care Teams Hearing Therapy Director Relationship Specialty Start Date End Date Ashwin Arzola MD [address] [place] [address] [phone] PCP - General Internal Medicine 08/01/20 Sotero Connell MD [address] [place] [address] [phone] Specialist Cardiology 07/10/21 Blanco Edwards NP [address] [place] [address] [phone] Specialist Cardiology 08/02/22 documented as of this encounter
--- OUTSIDE RECORDS SUMMARY | 2025-06-23 16:26 | XMS_ITS | Encounter Summary ---
Author Organization [facility] Address [address] [place] [address] Care Team Providers Care Public Health Engineer Name Role Phone Ashwin Arzola MD Primary Care Provider [phone] Sotero Connell MD Unavailable [phone] Blanco Edwards NP Unavailable [phone] Encounter Details Date Type Department Care Team Description 08/01/2022 Hospital Medical Records [address] [place] [address] [facility] Social History Tobacco Use Types Packs/Day [...] in this encounter Care Teams Public Health Engineer Relationship Specialty Start Date End Date Ashwin Arzola MD [address] [place] [address] [phone] PCP - General Internal Medicine 08/01/20 Sotero Connell MD [address] [place] [address] [phone] Specialist Cardiology 07/10/21 Blanco Edwards NP [address] [place] [address] [phone] Specialist Cardiology 08/02/22 documented as of this encounter
--- OUTSIDE RECORDS SUMMARY | 2025-06-23 16:27 | XMS_ITS | Encounter Summary ---
Author Organization [facility] Address [address] [place] [address] Care Team Providers Care Cottage Cheese Maker Name Role Phone Ashwin Arzola MD Primary Care Provider [phone] Sotero Connell MD Unavailable [phone] Blanco Edwards NP Unavailable [phone] Reason for Visit * Reason Onset Date Comments Faxed Order 08/31/2021 Encounter Details Date Type Department Care Team Description 08/31/2021 Telephone Adult Medicine [address] [phone] Ashwin Arzola MD [address] [place] [phone] Faxed Order Social History Tobacco Use Types [...] evaluations & Care plans orders for Dr. Aswhin Arzola's signature documented in this encounter Plan of Treatment Not on file documented as of this encounter Visit Diagnoses Not on filedocumented in this encounter Care Teams Cottage Cheese Maker Relationship Specialty Start Date End Date Ashwin Arzola MD [address] [place] [address] PCP - General Internal Medicine 08/01/20 Sotero Connell MD [address] [place] [address] [phone] Specialist Cardiology 07/10/21 Blanco Edwards NP [address] [place] [address] [phone] Specialist Cardiology 08/02/22 documented as of this encounter
--- OUTSIDE RECORDS SUMMARY | 2025-06-23 16:27 | XMS_ITS | Encounter Summary ---
Author Organization [facility] Address [address] [place] [address] Care Team Providers Care Dipper Clock And Watch Hands Name Role Phone uSjey Browning MD Primary Care Provider Un available Dudley Brown MD Primary Care Provider Unavail able Nancy Vines DO Primary Care Pro vider Unavailable Ashwin Arzola MD Primary Care Provider [phone] Sotero Connell MD Unavailable [phone] Blanco Edwards NP Unavailable [phone] Reason for Visit * Reason Onset Date Comments refill request 08/04/2017 Encounter Details Date Type Department Care Team Description 08/04/2017 Refill Adult Medicine [address] [address] Sujey Browning MD refill request Social History Tobacco Use Types [...] on filedocumented in this encounter Care Teams Dipper Clock And Watch Hands Relationship Specialty Start Date End Date Sujey Browning MD PCP - General Internal Medicine 03/27/1608/02 Dudley Brown MD PCP - General Internal Medicine 08/03/19 04/12/20 Nancy Vines DO PCP - General Internal Medicine 04/13/20 07/31/20 Ashwin Arzola MD [address] [place] [address] PCP - General Internal Medicine 08/01/20 Sotero Connell MD [address] [place] [address] [phone] Specialist Cardiology 07/10/21 Blanco Edwards NP [address] [place] [address] [phone] Specialist Cardiology 08/02/22 documented as of this encounter
--- OUTSIDE RECORDS SUMMARY | 2025-06-23 16:27 | XMS_ITS | Encounter Summary ---
Author Organization [facility] Address [address] [place] [address] Care Team Providers Care Insurance Consultant Name Role Phone Sujey Browning MD Primary Care Provider Un available Dudley Brown MD Primary Care Provider Unavail able Nancy Vines DO Primary Care Pro vider Unavailable Ashwin Arzola MD Primary Care Provider [phone] Sotero Connell MD Unavailable [phone] [facility] Unavailable [phone] Encounter Details Date Type Department Care Team Description 06/25/2019 Orders Only Radiology - [address] [address] Daisy Singh MD Diabetes mellitus without complication (HCC) (Primary Dx) [...] documented as of this encounter Results * CREATININE, BLOOD ASSAY (06/27/2019 8:29 AM EDT) CREAT 0.66 0.5 - 1.1 mg/dL 06/27/2019 10:07 AM EDT [facility] GLOMERULAR FILTRATION RATE > 60 06/27/2019 10:07 AM EDT [facility] Comment: If patient is -Belarusian, multiply result by 1.21 Chronic Kidney Disease: < 60 ml/min/1.73 square meters Kidney Failure: < 15 ml/min/1.73 square meters 06/27/2019 8:29 AM EDT 06/27/2019 8:29 AM EDT Daisy Singh MD LAB [facility] documented in this encounter Visit Diagnoses Diagnosis Diabetes mellitus without complication (HCC)- Primary Type II or unspecified type diabetes mellitus without mention of complication, not stated as uncontrolled documented in this encounter Care Teams Insurance Consultant Relationship Specialty Start Date End Date Sujey Browning MD PCP - General Internal Medicine 03/27/1608/02 Dudley Brown MD PCP - General Internal Medicine 08/03/19 04/12/20 Nancy Vines DO PCP - General Internal Medicine 04/13/20 07/31/20 Ashwin Arzola MD [address] [place] [address] PCP - General Internal Medicine 08/01/20 Sotero Connell MD [address] [place] [address] Specialist Cardiology 07/10/21 Blanco Edwards NP [address] [place] [address] Specialist Cardiology 08/02/22 documented as of this encounter
--- OUTSIDE RECORDS SUMMARY | 2025-06-23 16:27 | XMS_ITS | Encounter Summary ---
Author Organization [facility] Address [address] [place] [address] Care Team Providers Care Valuation Consultant Name Role Phone Sujey Browning MD Primary Care Provider Un available Dudley Brown MD Primary Care Provider Unavail able Nancy Vines DO Primary Care Pro vider Unavailable Ashwin Arzola MD Primary Care Provider [phone] Sotero Connell MD Unavailable [phone] [facility] Unavailable [phone] Reason for Visit * Reason Comments E-prescribe Rx Request Encounter Details Date Type Department Care Team Description 04/23/2019 Refill Adult Medicine [address] [address] Sujey Browning MD E-prescribe Rx Request Social [...] Telephone Encounter - Teofilo Kiran PA-C - 04/26/2019 2:01 PM EDT Ok to fill. Sarina Becker * Telephone Encounter - Leonila Wagner - 04/26/2019 11:44 AM EDT Patient would like script to be: E-PRESCRIBED/FAXED TO PHARMACY WHEN WAS THE PATIENT'S LAST APPOINTMENT IN ADULT MEDICINE? 02/15/19 WHEN WAS THE LAST TIME THE PATIENT SAW THEIR PCP? 12/10/18 Does patient have an upcoming appointment? Yes 06/16/19 (THE MEDICATION REQUESTED IS ON THE MED [...] N/A Patients current insurance carrier is: Payor: [employer] / Plan: [email or web address] / Product Type: MEDICAID RISK documented in this encounter Plan of Treatment Not on file documented as of this encounter Visit Diagnoses Not on filedocumented in this encounter Care Teams Valuation Consultant Relationship Specialty Start Date End Date Sujey Browning MD PCP - General Internal Medicine 03/27/1608/02 Dudley Brown MD PCP - General Internal Medicine 08/03/19 04/12/20 Nancy Vines DO PCP - General Internal Medicine 04/13/20 07/31/20 Ashwin Arzola MD [address] [place] [address] [phone] PCP - General Internal Medicine 08/01/20 Sotero Connell MD [address] [place] [address] [phone] Specialist Cardiology 07/10/21 Blanco Edwards NP [address] [place] [address] Specialist Cardiology 08/02/22 documented as of this encounter
--- OUTSIDE RECORDS SUMMARY | 2025-06-23 16:27 | XMS_ITS | Encounter Summary ---
Author Organization [facility] Address [address] [place] [address] Care Team Providers Care Secretarial Teacher Name Role Phone Ashwin Arzola MD Primary Care Provider [phone] Sotero Connell MD Unavailable [phone] Blanco Edwards NP Unavailable [phone] Encounter Details Date Type Department Care Team Description 11/18/2023 Hospital Medical Records [address] [place] [address] Kerri Wise Social History Tobacco Use Types [...] on filedocumented in this encounter Care Teams Secretarial Teacher Relationship Specialty Start Date End Date Ashwin Arzola MD [address] [place], [place] [phone] PCP - General Internal Medicine 08/01/20 Sotero Connell MD [address] [place] [address] [phone] Specialist Cardiology 07/10/21 Blanco Edwards NP [address] [place] [address] [phone] Specialist Cardiology 08/02/22 documented as of this encounter
--- OUTSIDE RECORDS SUMMARY | 2025-06-23 16:27 | XMS_ITS | Encounter Summary ---
Author Organization [facility] Address [address] [place] [address] Care Team Providers Care Stunt Driver Name Role Phone Sujey Browning MD Primary Care Provider Un available Dudley Brown MD Primary Care Provider Unavail able Nancy Vines DO Primary Care Pro vider Unavailable Ashwin Arzola MD Primary Care Provider [phone] Sotero Connell MD Unavailable [phone] [place], [place] [address]Blanco chandler NP Unavailable [phone] Encounter Details Date Type Department Care Team Description 04/10/2017 Home Health Certification Medical Records [address] [place] [address] Sujey Browning MD Social History Tobacco Use [...] on filedocumented in this encounter Care Teams Stunt Driver Relationship Specialty Start Date End Date Sujey Browning MD PCP - General Internal Medicine 03/27/1608/02 Dudley Brown MD PCP - General Internal Medicine 08/03/19 04/12/20 Nancy Vines DO PCP - General Internal Medicine 04/13/20 07/31/20 Ashwin Arzola MD [address] [place] [address] [phone] PCP - General Internal Medicine 08/01/20 Sotero Connell MD [address] [place], [place] [phone] Specialist Cardiology 07/10/21 Blanco Edwards NP [address] [place] [address] [phone] Specialist Cardiology 08/02/22 documented as of this encounter
--- OUTSIDE RECORDS SUMMARY | 2025-06-23 16:27 | XMS_ITS | Encounter Summary ---
Author Organization [facility] Address [address] [place] [address] Care Team Providers Care Gps Navigation Installer Name Role Phone Sujey Browning MD Primary Care Provider Un available Dudley Brown MD Primary Care Provider Unavail able Nancy Vines DO Primary Care Pro vider Unavailable Ashwin Arzola MD Primary Care Provider [phone] Sotero Connell MD Unavailable [phone] Blanco Edwards NP Unavailable [phone] Reason for Referral * Non MIKE (Routine) - New Request Specialty Diagnoses / Procedures Referred By Contradha t Referred To Contact Physical Therapy Diagnoses Pain in joint of left shoulder Procedures REFERRAL TO PHYSICAL THERAPY Sujey Browning MD [address] [place] [address] External Phys Thrpy Referral ID Status Reason Start Date Expiration Date V isits Requested Visits Authorized [id number] New Request 07/22/2019 01/18/2020 1 1 Reason for Visit * Reason Onset Date Comments Geoscience Specialist Feedback 07/14/2019 Pt Encounter Details Date Type Department Care Team Description 07/14/2019 Telephone Adult Medicine [facility] [address] [place] [address] Sujey Browning MD Geoscience Specialist Feedback (Pt) Social History Tobacco Use Types [...] region documented in this encounter Care Teams Gps Navigation Installer Relationship Specialty Start Date End Date Sujey Browning MD PCP - General Internal Medicine 03/27/1608/02 Dudley Brown MD PCP - General Internal Medicine 08/03/19 04/12/20 Nancy Vines DO PCP - General Internal Medicine 04/13/20 07/31/20 Ashwin Arzola MD [address] [place] [address] PCP - General Internal Medicine 08/01/20 Sotero Connell MD [address] [place] [address] Specialist Cardiology 07/10/21 Blanco Edwards NP [address] [place] [address] Specialist Cardiology 08/02/22 documented as of this encounter
--- OUTSIDE RECORDS SUMMARY | 2025-06-23 16:27 | XMS_ITS | Encounter Summary ---
Author Organization [facility] Address [address] [place] [address] Care Team Providers Care Hydraulic Jack Mechanic Name Role Phone Ashwin Arzola MD Primary Care Provider [phone] Sotero Connell MD Unavailable [phone] Blanco Edwards NP Unavailable [phone] Encounter Details Date Type Department Care Team Description 11/12/2021 SCAN Medical Records [address] [place] [address] Abstract, Provider Social History Tobacco Use Types [...] Date/Time Associated Diagnosis Comments OUTSIDE EKG Routine 11/12/2021 OUTSIDE LAB Routine 11/12/2021 documented in this encounter Results * OUTSIDE LAB (11/12/2021) Provider Default LAB * OUTSIDE EKG (11/12/2021) Provider Default CARDIOLOGY documented in this encounter Visit Diagnoses Not on filedocumented in this encounter Care Teams Hydraulic Jack Mechanic Relationship Specialty Start Date End Date Ashwin Arzola MD [address] [place] [address] [phone] PCP - General Internal Medicine 08/01/20 Sotero Connell MD [address] [place] [address] Specialist Cardiology 07/10/21 Blanco Edwards NP [address] [place] [address] Specialist Cardiology 08/02/22 documented as of this encounter
--- OUTSIDE RECORDS SUMMARY | 2025-06-23 16:27 | XMS_ITS | Encounter Summary ---
Author Organization [facility] Address [address] [place] [address] Care Team Providers Care Nurse Ldr Name Role Phone Sujey Browning MD Primary Care Provider Un available Dudley Brown MD Primary Care Provider Unavail able Nancy Vines DO Primary Care Pro vider Unavailable Ashwin Arzola MD Primary Care Provider [phone] Sotero Connell MD Unavailable [phone] [facility] Unavailable [phone] Encounter Details Date Type Department Care Team Description 10/01/2017 Release of Information Medical Records [address] [place] [address] Abstract, Provider Social History Tobacco Use Types [...] filedocumented in this encounter Care Teams Nurse Ldr Relationship Specialty Start Date End Date Sujey Browning MD PCP - General Internal Medicine 03/27/1608/02 Dudley Brown MD PCP - General Internal Medicine 08/03/19 04/12/20 Nancy Vines DO PCP - General Internal Medicine 04/13/20 07/31/20 Ashwin Arzola MD [address] [place] [address] [phone] PCP - General Internal Medicine 08/01/20 Sotero Connell MD [address] [place] [address] [phone] Specialist Cardiology 07/10/21 Blanco Edwards NP [address] [place] [address] [phone] Specialist Cardiology 08/02/22 documented as of this encounter
--- OUTSIDE RECORDS SUMMARY | 2025-06-23 16:27 | XMS_ITS | Encounter Summary ---
Author Organization [facility] Address [address] [place] [address] Care Team Providers Care Zinc Etcher Name Role Phone Ashwin Arzola MD Primary Care Provider [phone] Sotero Connell MD Unavailable [phone] Blanco Edwards NP Unavailable [phone] Reason for Visit * Reason Onset Date Comments Faxed Order [facility]26[facility]20[facility] Ord er # [id number] Encounter Details Date Type Department Care Team Description 11/26/2023 Telephone Adult Medicine [address] [phone] Ashwin Arzola MD [address] [place] [address] Faxed Order ([facility] Order # [id number]) Social History Tobacco Use Types Packs/Day Years [...] Ricarda Welch - 11/26/2023 10:55 AM EST [facility] Order # [id number] documented in this encounter Plan of Treatment Not on file documented as of this encounter Visit Diagnoses Not on filedocumented in this encounter Care Teams Zinc Etcher Relationship Specialty Start Date End Date Ashwin Arzola MD [address] [place] [address] PCP - General Internal Medicine 08/01/20 Sotero Connell MD [address] [place] [address] [phone] Specialist Cardiology 07/10/21 Blanco Edwards NP [address] [place] [address] [phone] Specialist Cardiology 08/02/22 documented as of this encounter
--- OUTSIDE RECORDS SUMMARY | 2025-06-23 16:27 | XMS_ITS | Encounter Summary ---
Author Organization [facility] Address [address] [place] [address] Care Team Providers Care Boil Off Machine Operator Cloth Name Role Phone Ashwin Arzola MD Primary Care Provider [phone] Sotero Connell MD Unavailable [phone] Blanco Edwards NP Unavailable [phone] Encounter Details Date Type Department Care Team Description 11/17/2023 Hospital Medical Records [address] [place] [address] Kerri Wise Social History Tobacco Use Types [...] on filedocumented in this encounter Care Teams Boil Off Machine Operator Cloth Relationship Specialty Start Date End Date Ashwin Arzola MD [address] [place], [place] [phone] PCP - General Internal Medicine 08/01/20 Sotero Connell MD [address] [place] [address] [phone] Specialist Cardiology 07/10/21 Blanco Edwards NP [address] [place] [address] [phone] Specialist Cardiology 08/02/22 documented as of this encounter
--- OUTSIDE RECORDS SUMMARY | 2025-06-23 16:27 | XMS_ITS | Encounter Summary ---
Author Organization [facility] Address [address] [place] [address] Care Team Providers Care Jawbone Breaker Name Role Phone Ashwin Arzola MD Primary Care Provider [phone] Sotero Connell MD Unavailable [phone] Blanco Edwards NP Unavailable [phone] Encounter Details Date Type Department Care Team Description 11/12/2023 Director Of Infection Prevention Report Medical Records [address] [place] [address] Scott Lawson Social History Tobacco Use Types [...] on filedocumented in this encounter Care Teams Jawbone Breaker Relationship Specialty Start Date End Date Ashwin Arzola MD [address] [place] [address] [phone] PCP - General Internal Medicine 08/01/20 Sotero Connell MD [address] [place] [address] [phone] Specialist Cardiology 07/10/21 Blanco Edwards NP [address] [place] [address] [phone] Specialist Cardiology 08/02/22 documented as of this encounter
--- OUTSIDE RECORDS SUMMARY | 2025-06-23 16:27 | XMS_ITS | Encounter Summary ---
Author Organization [facility] Address [address] [place] [address] Care Team Providers Care Hvac Engineer Name Role Phone Nancy Vines DO Primary Care Pro vider Unavailable Ashwin Arzola MD Primary Care Provider [phone] Sotero Connell MD Unavailable [phone] Blanco Edwards NP Unavailable [phone] Reason for Visit * Reason Comments E-prescribe Rx Request Encounter Details Date Type Department Care Team Description 04/14/2020 Refill Adult Medicine [facility] [address] [place] [address] Michaela Jama PA-C [address] [place] [address] E-prescribe Rx Request Social History Tobacco Use [...] N/A Patients current insurance carrier is: Payor: [facility] / Plan: [employer] $0 [facility] [id number] / Product Type: HMO [id number] documented in this encounter Plan of Treatment Not on file documented as of this encounter Visit Diagnoses Not on filedocumented in this encounter Care Teams Hvac Engineer Relationship Specialty Start Date End Date Nancy Vines DO PCP - General Internal Medicine 04/13/20 07/31/20 Ashwin Arzola MD [address] [place] [address] PCP - General Internal Medicine 08/01/20 Sotero Connell MD [address] [place] [address] [place] [address] Specialist Cardiology 07/10/21 Blanco Edwards NP [address] [place] [address] Specialist Cardiology 08/02/22 documented as of this encounter
--- OUTSIDE RECORDS SUMMARY | 2025-06-23 16:27 | XMS_ITS | Encounter Summary ---
Author Organization [facility] Address [address] [place] [address] Care Team Providers Care Stone Polisher Name Role Phone Ashwin Arzola MD Primary Care Provider [phone] Sotero Connell MD Unavailable [phone] Blanco Edwards NP Unavailable [phone] Encounter Details Date Type Department Care Team Description 11/16/2023 Hospital Medical Records [address] [place] [address] Kerri Wise Social History Tobacco Use Types [...] on filedocumented in this encounter Care Teams Stone Polisher Relationship Specialty Start Date End Date Ashwin Arzola MD [address] [place], [place] [phone] PCP - General Internal Medicine 08/01/20 Sotero Connell MD [address] [place] [address] [phone] Specialist Cardiology 07/10/21 Blanco Edwards NP [address] [place] [address] [phone] Specialist Cardiology 08/02/22 documented as of this encounter
--- OUTSIDE RECORDS SUMMARY | 2025-06-23 16:27 | XMS_ITS | Encounter Summary ---
Author Organization [facility] Address [address] [place] [address] Care Team Providers Care Yardage Control Clerk Name Role Phone Nancy Vines DO Primary Care Pro vider Unavailable Ashwin Arzola MD Primary Care Provider [phone] Sotero Connell MD Unavailable [phone] Blanco Edwards NP Unavailable [phone] Reason for Visit * Reason Onset Date Comments Faxed Refill 06/09/2020 Encounter Details Date Type Department Care Team Description 06/09/2020 Refill Adult Medicine [address] [address] Nancy Vines DO Faxed Refill Social History [...] the RX # listed on the fax? [id number] Patients current insurance carrier is: Payor: [employer] / Plan: [employer] $0 [facility] [id number] / Product Type: HMO Itu-ihs-Ufygnes documented in this encounter Plan of Treatment Not on file documented as of this encounter Visit Diagnoses Not on filedocumented in this encounter Care Teams Yardage Control Clerk Relationship Specialty Start Date End Date Nancy Vines DO PCP - General Internal Medicine 04/13/20 07/31/20 Ashwin Arzola MD [address] [place] [address] PCP - General Internal Medicine 08/01/20 Sotero Connell MD [address] [place] [address] Specialist Cardiology 07/10/21 Blanco Edwards NP [address] [place] [address] Specialist Cardiology 08/02/22 documented as of this encounter
--- OUTSIDE RECORDS SUMMARY | 2025-06-23 16:27 | XMS_ITS | Encounter Summary ---
Author Organization [facility] Address [address] [place] [address] Care Team Providers Care Sales Representative Supervisor Name Role Phone Sujey Browning MD Primary Care Provider Un available Dudley Brown MD Primary Care Provider Unavail able Nancy Vines DO Primary Care Pro vider Unavailable Ashwin Arzola MD Primary Care Provider [phone] Sotero Connell MD Unavailable [phone] Blanco Edwards NP Unavailable Reason for Visit * Reason Onset Date Comments Faxed Order 06/22/2019 Encounter Details Date Type Department Care Team Description 06/22/2019 Telephone Adult Medicine [address] [phone] Sujey Browning MD Faxed Order Social History [...] encounter Miscellaneous Notes * Telephone Encounter - Daisy Singh MD - 07/07/2019 7:53 AM EDT ----- Message from Sujey Browning MD sent at 07/06/2019 2:36 PM EDT ----- I spoke with patient about incidental adenopathy found in CT abdomen and pelvis. Her CBC is normal and she has no new complains. She is advised to choose a new PCP and schedule a follow up, since I will be leaving this practice. I explained she should have a repeat CT abdomen in [address] Singh please place order for repeat CT abdmen with contrast to make sure this will not fall through the cracks. Forwarding to Dr. Gonzalez, chief of medicine as well. Thank you. * Telephone Encounter - Nicol Quiles - 06/22/2019 1:11 PM EDT Faxed order to be signed documented in this encounter Plan of Treatment Not on file documented as of this encounter Visit Diagnoses Not on filedocumented in this encounter Care Teams Sales Representative Supervisor Relationship Specialty Start Date End Date Sujey Browning MD PCP - General Internal Medicine 03/27/1608/02 Dudley Brown MD PCP - General Internal Medicine 08/03/19 04/12/20 Nancy Vines DO PCP - General Internal Medicine 04/13/20 07/31/20 Ashwin Arzola MD [address] [place] [address] PCP - General Internal Medicine 08/01/20 Sotero Connell MD [address] [place] [address] Specialist Cardiology 07/10/21 Blanco Edwards NP [address] [place] [address] Specialist Cardiology 08/02/22 documented as of this encounter
--- OUTSIDE RECORDS SUMMARY | 2025-06-23 16:27 | XMS_ITS | Encounter Summary ---
Author Organization [facility] Address [address] [place] [address] Care Team Providers Care Maintenance Porter Name Role Phone Sujey Browning MD Primary Care Provider Un available Dudley Brown MD Primary Care Provider Unavail able Nancy Vines DO Primary Care Pro vider Unavailable Ashwin Arzola MD Primary Care Provider [phone] Sotero Connell MD Unavailable [phone] [facility] Unavailable [phone] Encounter Details Date Type Department Care Team Description 10/02/2017 Hospital Medical Records [address] [place] [address] Mitali Hughes MD Social History Tobacco Use Types Packs/Day [...] on filedocumented in this encounter Care Teams Maintenance Porter Relationship Specialty Start Date End Date Sujey Browning MD PCP - General Internal Medicine 03/27/1608/02 Dudley Brown MD PCP - General Internal Medicine 08/03/19 04/12/20 Nancy Vines DO PCP - General Internal Medicine 04/13/20 07/31/20 Ashwin Arzola MD [address] [place] [address] [phone] PCP - General Internal Medicine 08/01/20 Sotero Connell MD [address] [place], [place] [phone] Specialist Cardiology 07/10/21 Blanco Edwards NP [address] [place] [address] [phone] Specialist Cardiology 08/02/22 documented as of this encounter
--- OUTSIDE RECORDS SUMMARY | 2025-06-23 16:27 | XMS_ITS | Encounter Summary ---
Author Organization [facility] Address [address] [place] [address] Care Team Providers Care Water Treatment Plant Repairer Name Role Phone Ashwin Arzola MD Primary Care Provider [phone] Sotero Connell MD Unavailable [phone] Blanco Edwards NP Unavailable [phone] Encounter Details Date Type Department Care Team Description 07/10/2021 Release of Information Medical Records [address] [place] [id number] [facility] Social History Tobacco Use Types [...] filedocumented in this encounter Care Teams Water Treatment Plant Repairer Relationship Specialty Start Date End Date Ashwin Arzola MD [address] [place] [address] [id number] PCP - General Internal Medicine 08/01/20 Sotero Connell MD [address] [place] [phone] Specialist Cardiology 07/10/21 Blanco Edwards NP [address] [place] [address] [phone] Specialist Cardiology 08/02/22 documented as of this encounter
--- OUTSIDE RECORDS SUMMARY | 2025-06-23 16:27 | XMS_ITS | Encounter Summary ---
Author Organization [facility] Address [address] [place] [address] Care Team Providers Care Accounting Methods Analyst Name Role Phone Nancy Vines DO Primary Care Pro vider Unavailable Ashwin Arzola MD Primary Care Provider [phone] Sotero Connell MD Unavailable [phone] Blanco Edwards NP Unavailable [phone] Encounter Details Date Type Department Care Team Description 04/18/2020 Orders Only Radiology - [address] [phone] Nancy Vines DO Social History Tobacco Use Types Packs/Day Years [...] on filedocumented in this encounter Care Teams Accounting Methods Analyst Relationship Specialty Start Date End Date Nancy Vines DO PCP - General Internal Medicine 04/13/20 07/31/20 Ashwin Arzola MD [address] [place] [address] [phone] PCP - General Internal Medicine 08/01/20 Sotero Connell MD [address] [place] [phone] Specialist Cardiology 07/10/21 Blanco Edwards NP [address] [place] [address] Specialist Cardiology 08/02/22 documented as of this encounter
== END 2025-06-23 10:46 | disposition home or self-care (01) ==
LOC: HO.XRAY 10:45
PROVIDERS: PCP Internal Medicine; Visit Provider Internal Medicine Gastroenterology
DX: K21.9 Gastro-esophageal reflux disease without esophagitis (principal); K63.5 Polyp of colon; K57.30 Diverticulosis of large intestine without perforation or abscess without bleeding; K59.09 Other constipation; R13.14 Dysphagia, pharyngoesophageal phase; I10 Essential (primary) hypertension; Z79.899 Other long term (current) drug therapy
CPT/HCPCS: 74018; 99212

== ENCOUNTER → 2025-06-23 12:15 | Outpatient (BNV) | payer OTHER, SELFPAY | PROVIDERS: PCP Internal Medicine; Visit Provider Radiology Diagnostic Radiology | DX: K59.09 Other constipation (principal) | CPT/HCPCS: 74018 ==

== ENCOUNTER 2025-07-07 08:53 | Outpatient (AMB) | payer OTHER, SELFPAY ==
[2025-07-07 09:02] VITALS: BP 90/42; PULSE 77; BMI 32.5
--- NOTE | 2025-07-07 09:02 | MHC.OFFVIS ---
Vital Signs 07/07/25 09:02 Height 5 ft 2 in Weight 177 lb 11.081 oz BMI 32.5 BP 90/42 L Blood Pressure Location Lt brachial Position Sitting Pulse 77 Pulse Source Monitor Intake Visit Reasons: Wiley07/22-Colonoscopy clearance Rigging Engineer Required: Yes Rigging Engineer Language: Pediatric Immunologist Name: ernesto valentin [id number] Clothes Model: Clothes Model Present Allergies Penicillins Allergy (Mild, Verified 07/07/25 09:05) Swelling Medication List - Last Reconciled 07/07/25 by CURRY Avila albuterol sulfate mg continuous nebulization albuterol sulfate 90 mcg/actuation 2 puffs inhalation Q6H PRN amitriptyline 150 mg PO BEDTIME atorvastatin 80 mg PO BEDTIME bisacodyl (Dulcolax (bisacodyl)) 10 mg (2 x 5 mg) PO ONCE 5 days blood sugar diagnostic ([employer] Ultra Test strips) As directed budesonide-formoterol 160-4.5 mcg/actuation inhalation ciclopirox 0.77% 1 appl topical BID clonazepam 0.5 mg PO TID PRN docusate sodium 100 mg PO BID duloxetine 60 mg PO DAILY famotidine 20 mg PO DAILY vphhbkgtalp-zeklfdadp-sjtdlzqq 100-62.5-25 mcg (Trelegy Ellipta) 1 ea inhalation DAILY gabapentin 300 mg PO TID insulin glargine (Lantus U-100 Insulin) 10 units (0.1 mL) subcut BEDTIME lancets (mg[employer]ATouch Delica Plus Lancet) As directed lisinopril 10 mg PO DAILY loratadine 10 mg PO DAILY magnesium oxide 400 mg PO DAILY metformin ER 500 mg PO DAILY metoclopramide HCl 10 mg PO QID metoprolol tartrate 25 mg PO DAILY montelukast 10 mg PO BEDTIME nitroglycerin 0.4 mg sublingual Q5M PRN omeprazole 40 mg PO BID pantoprazole 40 mg PO DAILY polyethylene glycol 3350 (Miralax) 17 grams PO BID 30 days polyethylene glycol 3350 (Miralax) 17 grams PO DAILY 1 day potassium chloride ER 20 mEq PO DAILY prednisone 40 mg (2 x 20 mg) PO DAILY prednisone 40 mg (2 x 20 mg) PO DAILY 5 days sennosides (senna) 8.6 mg PO DAILY sennosides-docusate sodium 8.6-50 mg (Senna with Docusate Sodium) 2 tab-caps (2 x 8.6-50 mg) PO BEDTIME 60 days tiotropium bromide (Spiriva with HandiHaler) 1 cap inhalation DAILY tramadol 50 mg PO Q8H PRN HPI KAREN Jama,07/22-Colonoscopy clearance: Details: Melyssa is a 70-year-old female past medical history of hypertension, hyperlipidemia, diabetes, mild obesity, who was seen at [facility] [place] by cardiology in October 2024 for chest discomfort with mildly elevated troponins. An outpatient stress test was ordered however not completed at this facility. She now presents for preop clearance for endoscopy. Today she reports that she does get chest discomfort at times in her chest that occurs more with walking. She says it is more frequent than it had been previously. Her breathing is unlabored, no PND, orthopnea or edema. No heart palpitations, lightheadedness, presyncope, syncope. She does report headaches. She is having issues with abdominal pain and constipation. She will be having an endoscopy on 07/22/2025. Her OVENS SUPERVISOR is present and says she did go for the stress test at [facility]. She has been seen by [facility] Cardiology but they want to switch to our office as it is closer to their home. [facility] Medical History Rheumatoid arthritis Cervical spondylitis Depression Headache Dyslipidemia Hypertension Cerebral aneurysm, nonruptured Seizure disorder JOSÉ (obstructive sleep apnea) Delusions Major neurocognitive disorder Chest pain Dyspnea on exertion COVID-19 GERD (gastroesophageal reflux disease) DJD (degenerative joint disease) COPD (chronic obstructive pulmonary disease) Bipolar disorder CTS (carpal tunnel syndrome) Hx of rheumatoid arthritis Diabetic neuropathy Urinary incontinence Aneurysm of middle cerebral artery Pulmonary nodules CHF (congestive heart failure) Palpitations Migraine History of COVID-19 Mild aortic stenosis Asthma Insulin dependent type 2 diabetes mellitus Mixed hyperlipidemia Mood disorder Essential hypertension Surgical History History of esophagogastroduodenoscopy (EGD) No pertinent past surgical history Hx of cataract surgery H/O: hysterectomy Hx of cholecystectomy History of carpal tunnel release Family History Mother Myocardial infarction Father Myocardial infarction Sister Breast cancer Brother Spleen cancer Social History Household Members: None Housing: Apartment Do you presently have visiting nurse or other home services: Yes (frame aligner) Alcohol intake: never Comment: report given by Cleo rn Patient Tobacco Use Status: Never used Tobacco Tobacco use type: Cigarette Cigarette Packs Per Day: 0.2 Cigarettes Per Day: 4.0 Years Smoked: [id number] e-Cigarette/Vaping Use: Never Used Second Hand Smoke Exposure: No Advance Directives Date on File: 11/20/23 service: No Current occupational status: retired Sexual orientation: Straight/Heterosexual Review of Systems Const Details: headaches All systems reviewed & are unremarkable except as noted in HPI and below ENT Denies dizziness Card Reports chest pain, Reports chest pain at rest, Reports chest pain with activity, Reports rapid heart rate, Denies pedal edema, Denies edema, Denies leg edema, Denies lightheadedness, Denies palpitations, Denies dyspnea, Denies dyspnea on exertion and Denies orthopnea Resp Denies cough, Denies dyspnea and Denies dyspnea on exertion GI Denies hematochezia and Denies change in stool character Musc Denies abnormal gait, Denies limited range of motion, Denies muscle cramps, Denies muscle weakness, Denies numbness, Denies radiating pain into limb, Denies stiffness and Denies tingling Neuro Denies abnormal gait, Denies dizziness, Denies numbness and Denies tingling Endo Denies palpitations Physical Exam Vital Signs: Last Vital Signs Pulse 77 07/07/25 09:02 BP 90/42 L 07/07/25 09:02 BMI result Body Mass Index 32.5 Const General: cooperative, healthy appearing, comfortable and no acute distress Orientation/consciousness: patient oriented x3 Neck Neck: Yes normal visual inspection and Yes no JVD Chest Chest palpation & inspection: normal inspection of the chest Resp Effort & Inspection: normal respiratory effort Auscultation: clear to auscultation bilaterally, no crackles, no rales, no rhonchi and no wheezes Cardio Rate: regular rate Rhythm: regular rhythm Heart sounds: S1 normal heart sound present, S2 normal heart sound present, no gallops, no murmurs and no rubs Neuro General: patient oriented x3 Extrem General: Yes normal to inspection Psych Appearance: grossly normal Mental Status: mental status grossly normal Speech and movement: Normal speech and movement present Office Procedures EKG Details: Today, read by me, normal sinus rhythm, can not exclude prior anterior infarct, appearance could be related to body habitus, rate 77, QTC 420 milliseconds [id number], Complete Assessment & Plan Assessment & Plan (1) Chest pain: Code(s): R07.9 - Chest pain, unspecified Category: Medical Qualifiers: Chest pain type: unspecified Qualified Code(s): R07.9 - Chest pain, unspecified Plan: Vague reports of chest discomfort however present with walking and increasing frequency. [facility] [place] [place] admission in October and again in February with troponin elevations greater than 100. She has multiple cardiac risk factors. EKG today showing sinus rhythm, can not exclude prior anterior infarct, rate 77. No recent cardiac testing in our system however OVENS SUPERVISOR reports patient had testing in [place]. Will work on obtaining those records. Apparently she has been seen by [facility] Cardiology but wishes to switch to our office as of now. She will need a nuclear stress test and echocardiogram if these have not been done recently. Continue with risk factor modification. Continue atorvastatin with ideal LDL goal less than 70. Continue metoprolol and lisinopril. (2) NSTEMI (non-ST elevated myocardial infarction): Code(s): I21.4 - Non-ST elevation (NSTEMI) myocardial infarction Category: Medical Plan: As above (3) Essential hypertension: Code(s): I10 - Essential (primary) hypertension Category: Medical Plan: Blood pressure goal less than 130/80. Initially blood pressure reported as 90/42, recheck done by me 112/58. No med changes made. Reviewed need for good hydration. (4) Mixed hyperlipidemia: Code(s): E78.2 - Mixed hyperlipidemia Category: Medical Plan: [place] LDL goal less than 70 in patient with diabetes. No recent lipid profile in our system. Liver tests are normal. Continue atorvastatin. (5) Preop cardiovascular exam: Code(s): Z01.810 - Encounter for preprocedural cardiovascular examination Category: Medical Plan: Preop for endoscopy. Will work on obtaining most recent cardiac testing and update this note with addendum. Plan Time spent on chart review, documentation, interviewed assessment Coding Level of Care Code Est Pt Level 4 (84068) Complex EM visit Add On G2211 Diagnoses Chest pain, unspecified type R07.9 Chest pain type: unspecified NSTEMI (non-ST elevated myocardial infarction) I21.4 Essential hypertension I10 Mixed hyperlipidemia E78.2 Preop cardiovascular exam Z01.810 CPT Codes EKG - CPT: [id number], Complete ([id number]) Time Spent (min) 32
--- OUTSIDE RECORDS SUMMARY | 2025-07-07 09:32 | XMS_ITS ---
Author Name Marty GEORGESBeatriz Address [address] [place] [address] Phone [phone] [facility] Care Team Providers Care Credit Intern Name Role Phone Beatriz Ferguson Unavailable [phone] [facility] Unavailable Shaina Olivares Unavailable Unavailable Ashwin Arzola Unavailable [phone] [facility] Unavailab [phone] Unavailable Unavailable Unavailable Reason for Referral Not [...] 2021-12-26 2023-01-02 Vitamin D (Ergocalciferol) 1.25 mg (66581 UT) Cap TAKE 1 CAPSULE BY MOUTH 1 TIME A WEEK 2021-11-16 2023-01-02 OneTouch Delica Plus [id number] Miscellaneous USE DIRECTED TWICE DAILY 2021-11-30 No [...] DAY AT BEDTIME 2022-05-01 No Data Available Suswbcqnzt-BXIY-Kaeavxjp 50/325/40 mg Tab TAKE 1 TABLET BY MOUTH EVERY 6 HOURS NEEDED 2022-05-01 No Data Available B-D PEN NDL SHRT 85XC2TG(02/25) CARMEN USE DIRECTED THREE TIMES DAILY 2021-08-21 No Data Available Diclofenac Sodium 1 % Gel APPLY 4 GRAMS TOPICALLY TO THE AFFECTED AREA TWICE DAILY 2022-05-29 No Data Available Furosemide 40 mg Tab TAKE [address] [facility] DAILY 2022-07-25 2023-01-02 Mapap Arthritis Pain 650 [...] 20 mg Tab TAKE [address] [facility] AT BEDTIME 2023-06-23 No Data Available Ondansetron 4 mg Tab TAKE [address] [facility] EVERY 8 HOURS NEEDED FOR NAUSEA 2023-06-23 No Data Available Loratadine 10 mg Tab TAKE [address] [facility] EVERY DAY 2023-07-03 No Data Available Cetirizine 10 mg Tab TAKE [address] [facility] AT BEDTIME 2023-07-05 No Data Available Nystatin 910198 UNIT/GM Powder APPLY TOPICALLY FOUR TIMES DAILY [...] 50 mg Tab TAKE 1 TABLET BY [place] EVERY 8 HOURS NEEDED 2023-07-30 No Data [...] WITH MEALS 2023-11-07 No Data Available UNIFINE [id number] PEN NEEDLES USE DIREC CODY THREE TIMES DAILY 2023-11-07 2023-11-26 Azithromycin 250 mg Tab TAKE 2 TABLETS B Y MOUTH FOR 1 DAY THEN TAKE 1 TABLET BY MOUTH DAILY FOR 4 DAYS 2023-11-11 No Data Available Cefuroxime Axetil 250 mg Tab TAKE 1 TABL ET BY MOUTH TWICE DAILY 2023-11-19 No Data Available Nystatin 737902 UNIT/GM Powder apply to affected area daily, [...] with voiding x months will f/u with TRACK REPAIRER 09/16/2023 Office Visit Obstetrics & Gynecology Clare Simon MD Hemiplegia and hemiparesis following cerebral infarction affecting left non-dominant side Active 2022-08 N/A CVA 2008Does not have DOCTOR NATUROPATHIC 11/24/23Ambulates with a cane/walkerat risk for fallsFall prevention TIPS: Wear sensible shoes. Remove home hazards (Get rid of all rugs/mats in your home). Light up your living space (keep a flash light next to your bed for night time). Use assistive devices.ambulates with walker Chronic obstructive pulmonar y disease, unspecified Active 2022-08 N/A On Anoro ElliptaSpirivaProAiron 3L 02 PRNFollows Master Fire Control TechnicianCONTINGEN CY PLANMember to call for the [...] Quetiapinewith h/o delusions Follows Psychiatristfollowed by psychiatry [phone] (Neeta) ( member reports she does home [...] atorvastatin 80 mg. Other problems related to [facility] and other health care Active 2023-11 [...] Pain Documented on a Pain Scale (1125F) [facility] [place]20[place] Pain Assessment - Pain Documented on a Pain Scale (1125F) [facility] [place]/10[place]20[place] Pain Assessment - Pain Documented on a Pain Scale (1125F) [facility] [place]/10[place]2022 Pain Assessment - Pain Documented on a Pain Scale (1125F) [facility] [place]/10[place]2022 Pain Assessment - Pain Documented on a Pain Scale (1125F) [facility] [place]/10/2022 Pain Assessment - Pain Documented on a Pain Scale (1125F) [facility] [place] 09/10[place]2022 Pain Assessment - Pain Documented on a Pain Scale (1125F) [facility] [place] 09/10/2022 Pain Assessment - Pain Documented on a Pain Scale (1125F) [facility] [place] 09/10/2022 Type 2 diabetes mellitus [...] 95 for video, modifier 93 for phone [facility] [place] 10/03/2022 Hypertensive heart disease w [...] 1111F, BP, A1c or other CPTII codes [facility] ([place] 11/28/2022 Encounter for other specifie d aftercare RN, CN or CP time with patient by phone; use with 1111F, BP, A1c or other CPTII codes [facility] [place] 11/28/2022 No Data Available [facility] [place] 12/03/2022 Chronic obstructive pulmonar y disease with (acute) exacerbation No Data Available [facility] [place] 12/03/2022 Estab. patient 30-39min; chronic exacerbation, 2 stable chronic or 1 acute illness add add modifier 95 for video, (do not use for phone, instead use 23422-47) [facility] [place] 01/09/2023 Type 2 diabetes mellitus wit h [...] (do not use for phone, instead use 66127-74) [facility] [place] 01/09/2023 Estab. patient 30-39min; chronic exacerbation, 2 stable chronic or 1 acute illness add add modifier 95 for video, (do not use for phone, instead use 07537-91) [facility] [place] 01/09/2023 Estab. patient 30-39min; chronic exacerbation, 2 stable chronic or 1 acute illness add add modifier 95 for video, (do not use for phone, instead use 09132-44) [facility] [place] 01[place]09/2023 Estab. patient 30-39min; chronic exacerbation, 2 stable chronic or 1 acute illness add add modifier 95 for video, (do not use for phone, instead use 29656-48) [facility] [place] 01/09/2023 Estab. patient 30-39min; chronic exacerbation, 2 stable chronic or 1 acute illness add add modifier 95 for video, (do not use for phone, instead use 20238-13) [facility] [place] 01/09/2023 Estab. patient 30-39min; chronic exacerbation, 2 stable chronic or 1 acute illness add add modifier 95 for video, (do not use for phone, instead use 92574-29) [facility] [place] 01/09/2023 Estab. patient 30-39min; chronic exacerbation, 2 stable chronic or 1 acute illness add add modifier 95 for video, (do not use for phone, instead use 58042-32) [facility] [place] 01/09/2023 Estab. patient 30-39min; chronic exacerbation, 2 stable chronic or 1 acute illness add add modifier 95 for video, (do not use for phone, instead use 01133-64) [facility] [place] 01/09/2023 RN, CN or CP time with patient by phone; use with 1111F, BP, A1c or other CPTII codes [facility] [place] 01/02/2023 Encounter for other specifie d aftercare RN, CN or CP time with patient by phone; use with 1111F, BP, A1c or other CPTII codes [facility] [place] 01/02[place]2023 No Data Available [facility] [place] 03/[place]/2023 Other chest pain No Data Available [facility] [place] 04/02/2023 Chronic obstructive pulmonar y disease, unspecifiedChronic respiratory failure, unsp w hypoxia or hypercapniaSchizophrenia, unspecified No Data Available [facility] [place] 04/02/2023 No Data Available [facility] [place] 04/02/2023 No Data Available [facility] [place] 04/02/2023 No Data Available [facility] [place] 04/02/2023 No Data Available [facility] [place] 04/02/2023 No Data Available [facility] [place] 09/08/2023 Type 2 diabetes mellitus wit [...] status migrainosusAtherosclerosis of aorta No Data Available [facility] [place] 09/08/2023 No Data Available [facility] [place] 09/08/2023 No Data Available [facility] [place] 09/08/2023 No Data Available [facility] [place] 09/08/2023 No Data Available [facility] [place] 09/08/2023 No Data Available [facility] [place] 11/24/2023 Type 2 diabetes mellitus [...] and other health care No Data Available [facility] [place]/24/2023 No Data Available [facility] [place]/24/2023 No Data Available [facility] [place]24/2023 No Data Available [facility] [place]/24/2023 No Data Available [facility] [place] 11/24/2023 RN, CN or CP time with patient by phone; use with 1111F, BP, A1c or other CPTII codes [facility] ([place]) 11/20/2023 Encounter for other specifie d aftercare RN, CN or CP time with patient by phone; use with 1111F, BP, A1c or other CPTII codes [facility] ([place] 11/20/2023 Vital Signs Date of Collection Vitals [...] tive Time Current Smoking Status Former smoker 2025-06-14 4 Sex Female History of Procedures Procedures [...] (do not use for phone, instead use 10536-51) 69043 2022-09-10 No Data Available No Data Availa ble Estab. patient 20-29min; 1 stable chronic or 2 minor; add add modifier 95 for video, modifier 93 for phone 57092 2022-10-03 No Data Available No Data Availa ble RN, CN or CP time with patient by phone; use with 1111F, BP, A1c or other CPTII codes 68997 2022-11-28 No Data Available No Data Avai lable Medications prescribed in hospital were reviewed and reconciled against what they were taking prior to admission during today's visit. (1111F) 1111F 2022-11-28 No Data Available No Data Availa ble No Data Available [id number] 2022-12-03 No Data Available No Data Available Medications prescribed in hospital were reviewed and reconciled against what they were taking prior to admission during today's visit. (1111F) 1111F 2022-12-03 No Data Available No Data Availa ble Estab. patient 30-39min; chronic exacerbation, 2 stable chronic or 1 acute illness add add modifier 95 for video, (do not use for phone, instead use 53847-09) 89101 2023-01-09 No Data Available No Data Availa [...] 1111F, BP, A1c or other CPTII codes 39875 2023-01-02 No Data Available No Data Avai lable Medications prescribed in hospital were reviewed and reconciled against what they were taking prior to admission during today's visit. (1111F) 1111F 2023-01-02 No Data Available No Data Availa ble No Data Available [id number] 2023-03-28 No Data Available No Data Available No Data Available [id number] 2023-04-02 No Data Available No Data Available [...] No Data Avail able No Data Available [id number] 2023-09-08 No Data Available No Data Available [...] No Data Availa ble No Data Available [id number] 2023-11-24 No Data Available No Data Available [...] 1111F, BP, A1c or other CPTII codes 27614 2023-11-20 No Data Available No Data Patricia [...] Falls in last 6 Months: No 2022-09-10 DOCTOR NATUROPATHIC only there for 9 hours 2023-11-24 Mental [...] E ducation to avoid future hospitalization: Call [facility] if symptoms of illness develop. COPD [...] or disease education needs that may arise.On VkfeynOczcnzlpusG3x- 7.5Encouraged regular exerciseLimit unhealthy foods and eat healthy mealsAvoid sugar-sweetened beverages. White bread, rice, pasta.Follows EndocrinologistDiscussed recommended a1c level- <7%CVA s a PCAAmbulates with a cane/walkerOn Anoro ElliptaSpirivaProAiron 3L 02 PRNFollows PulmonologistOn 3l 02Follows PulmonologistOn QuetiapineAripiprazoleDuloxetineFollows PsychiatristOn AmbienUses Ztlido patchOn Vitamin DOn FurosemideMetoprololWill monitor edema and weight, follows cardiologyOn AripiprazoleStableFollows PsychiatrKettering Health MiamisburgMkohlrBzebinkmhaD7a- 7.1Follows OphthalmologistOn OmeprazoleAvoid spicy, fatty or fried food, caffeine, chocolateAvoid lying down after mealsAvoid eating late at nightWears Pull-ups 2022-10-03 11:44:44 Televideo 20-29min; 1 stable chronic or 2 minor; add modifier 95Continue to see PCP. Follow-up with [facility] as needed for any acute or disease education needs that may arise 05/05.On IxwtxlRdniuvbtubR3f- 7.1Encouraged regular exerciseLimit unhealthy foods and eat healthy mealsAvoid sugar-sweetened beverages. White bread, rice, pasta.Follows EndocrinologistDiscussed recommended a1c level- <7%CVA s a PCAAmbulates with a cane/walkerOn Anoro ElliptaSpirivaProAiron 3L 02 PRNFollows PulmonologistOn 3l 02Follows PulmonologistOn QuetiapineAripiprazoleDuloxetineFollows PsychiatristOn AmbienUses Ztlido patchOn Vitamin DOn FurosemideMetoprololWill monitor edema and weight, follows cardiologyOn AripiprazoleStableFollows PsychiatristOn EzscsqUwzrhjbhhgA1y- 7.5Follows OphthalmologistOn OmeprazoleAvoid spicy, fatty or fried [...] or disease education needs that may arise.On BgawvmPucicetncuF5m- 7.1Encouraged regular exerciseLimit unhealthy foods and eat [...] Psychiatrist01/09/23: Continue current treatment plan as directed.On CbxqzfXtgjqqopueC6f- 7.5Follows OphthalmologistOn OmeprazoleAvoid spicy, fatty or fried [...] modifier 95)Continue to see PCP. Follow-up with [facility] as needed for any acute or [...] obtained (3008F)Continue to see PCP. [facility] or [...] modifier 95)Continue to see PCP. Follow-up with [facility] as needed for any acute or disease education needs that may arise 05/05.On NfhuinHvehgajujvL5m- 7.1Encouraged regular exerciseLimit unhealthy foods and eat [...] and fall precautions. Follow up as indicated.On TiocolRayeafzcncD2p- 7.5Follows OphthalmologistOn OmeprazoleAvoid spicy, fatty or fried food, caffeine, chocolateAvoid lying down after mealsAvoid eating late at night01/09/23: Continue current treatment plan as directed.has f/u visit 11/03/2023 Office Visit Gastroenterology Alber Benites PA-SHAKILAears Pull-ups+burning with voiding x months will f/u with TRACK REPAIRER 09/16/2023 Office Visit Obstetrics & Gynecology Clare [...] 8.4 202GFR 80 3CVA 2008Does not have DOCTOR NATUROPATHIC 11/24/23Ambulates with a cane/walkerat risk for fallsFall prevention TIPS: Wear sensible shoes. Remove home hazards (Get rid of all rugs/mats in your home). Light up your living space (keep a flash light next to your bed for night time). Use assistive devices.ambulates with walkerOn Anoro ElliptaSpirivaProAiron 3L 02 Sole Master Fire Control TechnicianCONTINGENCY PLANMember to call for the following [...] agitationPlanned intervention: Contact mental health professional: psychiatry [phone] ([place])On quetiapinewith h/o delusions Follows Psychiatristfollowed by psychiatry [phone] (Neeta) ( member reports she does home [...] pneumoniae---sensitive to ceftriaxone) all uit symptoms resolved.On OnmoebQhtfqtnculM0d- 7.0 11/19/23Follows OphthalmologistOn OmeprazoleAvoid spicy, fatty or fried food, caffeine, chocolateAvoid lying down after mealsAvoid eating late at night01/09/23: Continue current treatment plan as directed.has f/u visit 11/03/2023 Office Visit Gastroenterology Alber Benites PA-Zulma Pull-ups+burning with voiding x months will f/u with TRACK REPAIRER 09/16/2023 Office Visit Obstetrics & Gynecology Clare [...] joint pain increased [facility] or [...] ER visit(s) and precipitating factors: Hospital name: [facility] Hospital admission date: 11/16/2023 Hospital [...] chills todayRN there 9-10am ---Member unable to grape picker medications as she does not have DOCTOR NATUROPATHIC. RN brought medications today. member unable to give me RN name or contact info. 2023-11-24 2 hours per day--no DOCTOR NATUROPATHIC (does not have a DOCTOR NATUROPATHIC) . email sent to [facility] cc re need for DOCTOR NATUROPATHIC 2023-11-24 followed by tracie bonilla [phone] (Neeta) ( member reports she does home visits) 2023-11-24 unable to complete medication reconciliation; RN not available and member does not administer medications her self. 2023-11-24 medication list u pdated after review of Hosp records/medication list
--- OUTSIDE RECORDS SUMMARY | 2025-07-07 09:33 | XMS_ITS | Clinical Summary ---
Author Organization [facility] [address] [facility] Address [address] [place] [address] Phone Care Team Providers Care Culinary Assistant Name Role Phone Ashwin Arzola MD Primary Care Provider [phone] Allergies Active Allergy Reactions Criticality Noted Date [...] (HISTORICAL CPAP), by Nasal route at bedtime. I&R-pressure 6-16 Active gabapentin (NEURONTIN) 100 mg capsule [...] Active blood-glucose meter,continuou s (FreeStyle Cade 3 Lostant) miscIndications :Type 2 diabetes mellitus with other specified complication, with long-term current use of insulin ([facility] V24, [facility] V28) To check sugars 1 each Active [...] complication, with long-term current use of insulin ([facility] V24, [facility] V28) Box = Kit = EA, change sensor every 14 days 6 each 025 Active clonazePAM (KlonoPIN) 0.5 mg tablet One tab qhs and 1/2 tab in the am 45 tablet 025 Active amitriptyline (ELAVIL) 150 mg tablet Take 1 tablet (150 mg total) by mouth at bedtime. 30 tablet 025 Active loratadine (CLARITIN) 10 mg tabletIndicatio ns:Moderate persistent asthma without complication Take 1 tablet (10 mg total) by mouth 1 (one) time each day. 30 each 2 025 2025 Active albuterol HFA (Ventolin HFA) 90 mcg/actuation inhalerIndicati ons:Moderate persistent asthma without complication Inhale 2 puffs by mouth every 6 (six) hours if needed for wheezing. 18 g 2 025 2025 Active ipratropium-alb uteroL (DUONEB) 0.5-2.5 mg/3 [...] type,Severe persistent asthma, unspecified whether complicated ([facility] V28) Take 3 mL (2.5 mg total) by nebulization 4 (four) times a day if needed for wheezing or shortness of breath. 360 mL 1 025 2025 Active fluticasone-ume clidinium-vilan terol (Trelegy Ellipta) 100-62.5-25 mcg inhalerIndicati ons:Moderate persistent asthma without complication Inhale 1 puff (100 mcg total) by mouth 1 (one) time each day. 1 each 2 025 Active magnesium oxide (MAG-OX) 400 mg (241.3 elemental magnesium) tablet Take 1 tablet (400 mg total) by mouth 1 (one) time each day. 90 tablet 1 025 Active metFORMIN XR (GLUCOPHAGE-XR) 500 mg 24 hr tabletIndicatio ns:Type 2 diabetes mellitus with other specified complication, with long-term current use of insulin ([facility] V24, [facility] V28) Take 1 tablet (500 mg total) [...] time each day. 15 mL 025 Active montelukast (SINGULAIR) 10 mg tabletIndicatio ns:Moderate persistent asthma without complication TAKE 1 TABLET BY MOUTH ONCE DAILY AT BEDTIME 30 tablet 2 025 Active furosemide (LASIX) 40 mg tablet Take 1 tablet (40 mg total) by mouth 2 (two) times a day. 023 2024 Discontinued(T herapy completed) montelukast (SINGULAIR) 10 mg tabletIndicatio ns:Moderate persistent asthma without complication Take 1 tablet (10 mg total) by mouth at bedtime. 30 tablet 2 025 2024 Discontinued Lantus Solostar U-100 Insulin [...] CT of the abdomen 08/19/2024 Bipolar disorder ([facility] V24, [facility] V28) 04/2024 Overview (08/19/2024): Joan psych COVID-19 [...] Type 2 diabetes mellitus wit h cataract ([facility] V24, [facility] V28) 05/04/2020 Obesity (BMI 30.0-34.9) 02/10/2018 Stage 1 mild COPD by GOLD cl assification ([facility] V24, [facility] V28) 02/10/2018 Overview (08/19/2024): Last Assessment & Plan: Mild COPD. Continue with Trelegy 1 puff once a day. Migraine 01/16/2017 Palpitations 07/08/2016 CHF (congestive heart failure) ([facility] V24, [facility] V28) 04/22/2016 Asthma 04/05/2016 Overview (08/19/2024): Last Assessment & Plan: Continue with the use of Trelegy. The severity of asthma does not correlate with her symptoms. She is doing excellent with the Trelegy as well we will continue it. Diabetes mellitus with neuro logical manifestation ([facility] V24, [facility] V28) 12/19/2014 Pulmonary nodules/lesions, multiple 10/17/2014 Overview (08/19/2024): Last Assessment & Plan: Patient has history of calcified granulomas which has been stable for many years. Aneurysm of middle cerebral artery 07/07/2014 Overview (08/19/2024): 4mm on the R MCA bifucation. Patient was follow in [place] and no intervention was recommended Urinary incontinence 11/18/2013 Diabetic neuropathy ([facility] V24, [facility] V28) 0 02/03/2013 Overview (08/19/2024): Noted on [...] Encounters Date Type Department Care Team Description 07/06/2025 Telephone Adult Medicine [address] [phone] Antonio Elias LPN 07/06/2025 Telephone Adult Medicine [address] [phone] Ashwin Arzola MD 07/04/2025 Telephone Orthopedic Surgery [facility] [address] [place] [phone] Domitila Carl 07/01/2025 Telephone Orthopedic Surgery [facility] 250 175 [facility] 250 [place] [phone] Michele May MD 06/30/2025 11:30 AM EDT Office Visit Adult [address] [phone] Ashwin Arzola MD Uncontrolled type 2 diabetes mellitus with hyperglycemia ([facility] V24, [facility] V28) (Primary Dx); Need for prophylactic vaccination and inoculation against influenza; High cholesterol; Encounter for long-term (current) use of medications; Primary hypertension 06/27/2025 Telephone Pulmonology [facility] 175 [facility] 200 [place] [phone] Cami Dupont NP 06/20/2025 11:15 AM EDT Office Visit Orthopedic [facility] 250 175 [facility] [address] [place] [phone] Michele May MD Right rotator cuff tendinitis (Primary Dx); Right tennis elbow; Numbness and tingling in left hand 06/16/2025 Telephone Pulmonology [facility] 175 [facility] 200 [place] [phone] Cami Dupont NP 06/14/2025 9:45 AM EDT [facility] [address] [phone] Cami Dupont NP Moderate persistent asthma without complication (Primary Dx); Stage 1 mild COPD by GOLD classification ([facility] V24, [facility] V28); Pulmonary nodules/lesions, multiple; JOSÉ (obstructive sleep apnea); Obesity (BMI 30.0-34.9) 06/09/2025 Telephone Adult [address] [phone] Antonio Elias LPN 06/08/2025 11:15 AM EDT Office Visit [address] [phone] Eddie Stapleton MD Cellulitis of other specified site (Primary Dx); Folliculitis; Type 2 diabetes mellitus with hyperglycemia, with long-term current use of insulin ([facility] V24, [facility] V28) 06/06/[address] [phone] Antonio Elias LPN 05/24/2025 10:45 AM EDT Office Visit Orthopedic Surgery [facility] 250 175 [facility] 250 [place] [phone] Linus Luna DPM Primary osteoarthritis of both feet (Primary Dx); Diabetic mononeuropathy simplex ([facility] V24, [facility] V28); Tinea pedis of both feet; Corns and callosities; Type II diabetes mellitus with peripheral circulatory disorder ([facility] V24, [facility] V28); Metatarsalgia of both feet; Pain in toe of right foot; Dermatophytosis of nail; Pain in toe of left foot 04/29/2025 9:30 AM EDT Ancillary Procedure [facility] 101 300 [facility] 101 [place] [phone] 04/25/2025 1:45 PM EDT Office Visit Orthopedic Surgery - [place] 250 175 [facility] 250 [place] [phone] Michele May MD Numbness and tingling in left hand (Primary Dx); Right shoulder pain; Right elbow pain; Right tennis elbow; Right rotator cuff tendinitis 04/06/2025 10:00 AM EDT Ancillary Procedure Pulmonology - [place] 175 [facility] 200 [place] [phone] Moderate persistent asthma without complication from Last 3 Months Immunizations Name Administration Dates Next Due Influenza Quadravalent, MDCK , 0.5ml, preservative free (Flucelvax) 6mo and older 12/10/2018 Influenza trivalent, 0.5mL ( Fluad) 65yo and older 06/30/2025,08/02/2022,11/07/2021,07/13,06/16/2019,07/05/2016,09/01/2015 ,07/18/2014,06/17/2012 Influenza trivalent, with pr eservative (Fluzone; Afluria) [...] under propofol UPPER GASTROINTESTINAL ENDOSCOPY 10/29/2016 PROCEDURE: TN UPPER GI ENDOSCOPY PERFORMED; COMMENT: gastritis; biopsies not taken COLONOSCOPY 03/31/2012 PROCEDURE: HISTORICAL COLONOSCOPY; COMMENT: [facility]; Four adenomas UPPER GASTROINTESTINAL ENDOSCOPY 09/02/2019 PROCEDURE: UPPER GI ENDOSCOPY/EXAM; COMMENT: gastritis, biopsy pending CATARACT EXTRACTION Right PROCEDURE: HISTORICAL CATARACT REMOVAL Medical History Medical History Date Comments Asthma DX:Asthma Seronegative rheumatoid arth ritis ([facility] V24, [facility] V28) DX:Seronegative rheumatoid arthritis (HCC) Lumbar spondylosis DX:Lumbar spo ndylosis; COMMENT: L3-S1 CTS (carpal tunnel syndrome) DX: CTS (carpal tunnel syndrome); COMMENT: s/p bilat surgery Plantar fasciitis DX:Plantar fas ciitis; COMMENT: Left Medial epicondylitis DX:Medial e picondylitis Pulmonary nodules DX:Pulmonary n odules; COMMENT: calcified Diabetes mellitus ([facility] V 24, [facility] V28) DX:Diabetes mellitus (HCC) Bipolar disorder ([facility] V2 4, [facility] V28) DX:Bipolar disorder ([facility]) HTN (hypertension) DX:HTN (hyper tension) Bronchitis, not specified as acute or chronic DX:Bronchitis, not specified as acute or chronic Diabetes mellitus with neuro logical manifestation ([facility] V24, [facility] V28) 12/19/2014 DX:Diabetes mellitus with neurological manifestation ([facility]) Hemiparesis affecting left s anthony as late effect of stroke ([facility] V24, [facility] V28) 05/15/2016 DX:Hemiparesis affecting lef t side as late effect of stroke ([facility]) Gastritis 11/22/2016 DX:Gastritis Migraine 01/16/2017 DX:Migraine Migraine without status migr ainosus, not intractable 01/16/2017 DX:Migraine without status migrainosus, not intractable 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 ([facility] V24, [facility] V28) 02/20/2017 DX:DM type 2 causin g neurological disease ([facility]) Helicobacter pylori infection DX :Helicobacter pylori infection [...] Sign Reading Time Taken Comments Blood Pressure 100/58 06/30/2025 11:32 AM EDT Pulse 78 06/30/2025 11:32 AM EDT Temperature 36.4 C (97.6 F) 06/30/2025 11:32 AM EDT Respiratory Rate 16 06/30/2025 11:32 AM EDT Oxygen Saturation 94% 06/30/2025 11:32 AM EDT Inhaled Oxygen Concentration - - Weight 79.8 kg (176 lb) 06/30/2025 11:32 AM EDT Height 165.1 cm (5' 5 ) 06/30/2025 11:32 AM EDT Body Mass Index 29.29 06/30/2025 11:32 AM EDT Plan of Treatment Upcoming Encounters Date Type Department Care Team (Late st Contact Info) Description 07/26/2025 10:30 AM EDT Office Visit Orthopedic Surgery - [place] 250 175 [facility] 250 [place] [phone] Linus Luna DPM 175 [facility] 250 [place] [phone] 08/11/2025 10:35 AM EDT Office Visit Pulmonology - [place] 175 [facility] [address] [place] [phone] Cami Dupont NP [address] [place] [phone] 08/15/2025 10:40 AM EST Office Visit [facility] [address] [facility] [address] [place] [phone] Hermelinda Marmolejo NP [address] [place] [address] 01/23/2026 9:45 AM EDT Office Visit Adult Medicine [address] [phone] Ashwin Arzola MD [address] [place], [place] Health Maintenance Due Date Last Done Comments Diabetes: Annual Retina Eye Exam 1965 RSV Immunization Adult Patients (1 - Risk 60-74 years 1-dose series) 2014 Falls Risk Assessment 09/21/2022 Social Influencers of Health Screening 09/21/2022 Depression Screening 10/13/2024 08/11/2024 Diabetes: Annual Foot Exam 01/07/2025 01/08/2024 COVID-19 Vaccine ( season) 2025 11/07/2021, 01/17/2021 Colorectal Cancer Screening: Colonoscopy 12/21/2025 12/21/2020, 05/19/2017 Diabetes: Blood Sugar Control Test (HGBA1C) 12/28/2025 06/30/2025, 01/27/2025, 09/23/2024, Additional history exists Breast Cancer Screening 03/29/2026 03/29/20 24, 03/29/2024, 03/12/2023, Additional history exists Diabetes: Annual GFR (Glomerular Filtration Rate) 06/30/2026 06/30/2025, 03/04/2025, 01/27/2025, Additional history exists Hypertension/CHF/CAD Annual BMP Blood Test 06/30/2026 06/30/2025, 03/04/2025, 01/27/2025, Additional history exists Diabetes: Annual Urine Albumin-Creatinine Ratio (uACR) 07/04/2026 07/04/2025, 09/23/2024, 12/13/2022 Cholesterol Screening (Lipid Panel) 06/30/2030 06/30/2025, 09/23/2024, 11/07/2023 DTaP,Tdap,and Td Vaccines (5 - Td or Tdap) 07/13/2030 07/13/2020, 07/13/2020, 04/22/2009, Additional history exists Osteoporosis Screening (Bone Density Screening) 07/09/2031 07/09/2021 Hepatitis C Screening Completed 05/04/2014 Zoster Vaccines Completed 12/10/2021, 10/10/2021 Medicare Annual Wellness Visit Discontinued 06/11/2023 Pneumococcal Vaccine: 50+ Years Completed 08/21/2023, 03/24/2016, 09/30/2013, Additional history exists Influenza Vaccine Completed 06/30/2025, , 08/02/2022, Additional history exists HIB Vaccines Aged Out [...] Diagnosis Comments MICROALBUMIN CREATININE URINE RATIO Routine 07/04/2025 10:57 AM EDT Uncontrolled type 2 diabetes mellitus with hyperglycemia (CMS/HCC V24, CMS/HCC V28) Primary hypertension High cholesterol HEMOGLOBIN A1C Routine 06/30/2025 12:30 PM EDT Uncontrolled type 2 diabetes mellitus with hyperglycemia (CMS/HCC V24, CMS/HCC V28) LIPID PANEL WITH REFLEX TO DIRECT LDL Routine 06/30/2025 12:30 PM EDT High cholesterol COMPREHENSIVE METABOLIC PANEL Routine 06/30/2025 12:30 PM EDT Uncontrolled type 2 diabetes mellitus with hyperglycemia (CMS/HCC V24, CMS/HCC V28) Primary hypertension NM LEXISCAN STRESS TEST W/ MYOCARDIAL PERFUSION Routine 04/29/2025 12:07 PM EDT Chest pain, unspecified type Elevated troponin XR ELBOW 3+ VIEWS RIGHT Routine 04/25/2025 2:35 PM EDT Right elbow pain XR SHOULDER 2+ VIEWS RIGHT Routine 04/25/2025 2:35 PM EDT Right shoulder pain TN ARTHROCENTESIS/ASPIRA TION/INJECTION INTERMEDIATE JOINT/BURSA WO U/S GUID Routine 04/25/2025 1:45 PM EDT Right tennis elbow TN ARTHROCENTESIS/ASPIRA TION/INJECTION MAJOR JOINT/BURSA W/O U/S GUIDANCE Routine 04/25/2025 1:45 PM EDT Right shoulder pain Right rotator cuff tendinitis PULMONARY FUNCTION TESTING Routine 04/06/2025 11:46 AM EDT Moderate persistent asthma without complication DEPRESSION SCREENING Routine 08/11/2024 SCREENING MAMMOGRAPHY BI [...] Relevant to Health Maintenance Results * (ABNORMAL) Microalbumin creatinine urine ratio (07/04/2025 10:57 AM EDT) Creatinine, Urine 221.0 mg/dL LAB CHEMISTRY METHOD 07/04/2025 1:46 PM EDT [facility] Microalb, Ur 51.5(H) 0.0 - 29.0 mg/L LAB CHEMISTRY METHOD 07/04/2025 1:46 PM EDT [facility] Microalb/Crea t Ratio 23 <30 mg/g creat LAB CHEMISTRY METHOD 07/04/2025 1:46 PM EDT [facility] Urine Urine specimen obtained by clean catch procedure / Unknown Non-blood Collection / Unknown 07/04/2025 10:57 AM EDT 07/04/2025 10:57 AM EDT us Ashwin Arzola MD LAB URINE ORDERABLES Final Resu lt [facility] [address] [place] [address], * Lipid panel with reflex to direct LDL (06/30/2025 12:30 PM EDT) Cholesterol 156 0 - 200 mg/dL LAB CHEMISTRY METHOD 06/30/2025 5:20 PM EDT [facility] Triglycerides 99 0 - 150 mg/dL LAB CHEMISTRY METHOD 06/30/2025 5:20 PM EDT [facility] HDL 80 >=40 mg/dL LAB CHEMISTRY METHOD 06/30/2025 5:20 PM EDT [facility] LDL Calculated 56 0 - 100 mg/dL LAB CHEMISTRY METHOD 06/30/2025 5:20 PM EDT [facility] Comment:Estimated LDL Calcul ated using equation: Total cholesterol - HDL cholesterol - (Triglycerides/5) VLDL Cholesterol Jacoby 19.8 mg/dL LAB CHEMISTRY METHOD 06/30/2025 5:20 PM EDT [facility] Non HDL Chol. (LDL+VLDL) 76 <145 mg/dL LAB CHEMISTRY METHOD 06/30/2025 5:20 PM EDT [facility] Chol/HDL Ratio 2.0 0.0 - 4.4 LAB CHEMISTRY METHOD 06/30/2025 5:20 PM EDT [facility] Blood Venous blood specimen / Unknown Venipuncture / Unknown 06/30/2025 12:30 PM EDT 06/30/2025 12:30 PM EDT us Ashwin Arzola MD LAB BLOOD ORDERABLES Final Resu lt Performing Organization Address [facility] de Phone Number [facility] [address] [place] [address], [place] [phone] * (ABNORMAL) Hemoglobin A1c (06/30/2025 12:30 PM EDT) Hemoglobin A1C 9.1(H) <6.5 % LAB CHEMISTRY METHOD 06/30/2025 10:01 PM EDT [facility] Mean Bld Glu Estim. 214 mg/dL LAB CHEMISTRY METHOD 06/30/2025 10:01 PM EDT [facility] Blood Venous blood specimen / Unknown Venipuncture / Unknown 06/30/2025 12:30 PM EDT 06/30/2025 12:30 PM EDT us Ashwin Arzola MD LAB BLOOD ORDERABLES Final Resu lt Performing Organization Address [facility]/ZIP Co de Phone Number [facility] [address] [place] [address], [place] [phone] * (ABNORMAL) Comprehensive metabolic panel (06/30/2025 12:30 PM EDT) Sodium 140 133 - 145 mmol/L LAB CHEMISTRY METHOD 06/30/2025 5:18 PM EDT [facility] Potassium 3.7 3.5 - 5.5 mmol/L LAB CHEMISTRY METHOD 06/30/2025 5:18 PM EDT [facility] Chloride 103 96 - 110 mmol/L LAB CHEMISTRY METHOD 06/30/2025 5:18 PM [facility] CO2 33(H) 21 - 32 mmol/L LAB CHEMISTRY METHOD 06/30/2025 5:18 PM [facility] Anion Gap 4 3 - 11 LAB CHEMISTRY METHOD 06/30/2025 5:18 PM [facility] Glucose 110(H) 70 - 100 mg/dL LAB CHEMISTRY METHOD 06/30/2025 5:18 PM [facility] BUN 14 5 - 25 mg/dL LAB CHEMISTRY METHOD 06/30/2025 5:18 PM [facility] Creatinine 0.60 0.50 - 1.10 mg/dL LAB CHEMISTRY METHOD 06/30/2025 5:18 PM [facility] eGFR 96 >=60 mL/min/1. 73m2 LAB CHEMISTRY METHOD 06/30/2025 5:18 PM [facility] Comment:Calculation based on the Chronic Kidney Disease Epidemiology Collaboration (CKD-EPI) equation refit without adjustment for race. BUN/Creatinine Ratio 23.3 LAB CHEMISTRY METHOD 06/30/2025 5:18 PM [facility] Calcium 9.5 8.5 - 10.5 mg/dL LAB CHEMISTRY METHOD 06/30/2025 5:18 PM [facility] AST (SGOT) 17 10 - 42 unit/L LAB CHEMISTRY METHOD 06/30/2025 5:18 PM [facility] ALT (SGPT) 27 10 - 60 unit/L LAB CHEMISTRY METHOD 06/30/2025 5:18 PM [facility] Alkaline Phosphatase 77 42 - 121 unit/L LAB CHEMISTRY METHOD 06/30/2025 5:18 PM [facility] Total Protein 6.8 6.0 - 8.0 g/dL LAB CHEMISTRY METHOD 06/30/2025 5:18 PM [facility] Albumin 3.6 3.2 - 5.0 g/dL LAB CHEMISTRY METHOD 06/30/2025 5:18 PM EDT [facility] Total Bilirubin 0.3 0.0 - 1.4 mg/dL LAB CHEMISTRY METHOD 06/30/2025 5:18 PM EDT [facility] Blood Venous blood specimen / Unknown Venipuncture / Unknown 06/30/2025 12:30 PM EDT 06/30/2025 12:30 PM EDT us Ashwin Arzola MD LAB BLOOD ORDERABLES Final Resu lt [facility] [address] [place] [address], [place] [phone] * NM LEXISCAN STRESS TEST W/ MYOCARDIAL [...] MD IMG XR PROCEDURES Final Result * TN ARTHROCENTESIS/ASPIRATION/INJECTION INTERMEDIATE JOINT/BURSA WO U/S GUID (04/25/2025 [...] IN CLINIC/BEDSIDE ORDERABLES Fin al Result * TN ARTHROCENTESIS/ASPIRATION/INJECTION MAJOR JOINT/BURSA W/O U/S GUIDANCE (04/25/2025 [...] supplemental Oxygen for today's Activity. Cami Dupont NP PFT ORDERABLES Final R esult * Depression Screening (08/11/2024) Depression Screening abstracted [...] bone mineral density by WHO criteria. [facility] Department of Internal Medicine [...] screening schedule based on dia Pompa., [facility] October 31, 2011 for patients [...] bone mineral density by WHO criteria. [facility] Department of Internal Medicine [...] screening schedule based on adriana Pompa al., NEJMJanuary 2011 for patients with osteopenia (based on hip BMD T-score) is as follows: * advanced osteopenia (T scores -2.00 to -2.49), BMD testing every year * moderate osteopenia (T scores -1.50 to -1.99), BMD testing every 5years mild osteopenia or normal BMD (T scores -1.50 and higher), BMD testingevery 15 years Michaela PERALTA [facility] DXA PROCEDURES Final Result * Colonoscopy (05/19/2017) [facility] Colonoscopy abstracted, no interpretation Anatomical Region Laterality Modality Other Historical Provider HEALTH MAINTENANCE Final Result * Hepatitis C Screening (05/04/2014) [facility] Hepatitis C Screening abstracted [facility] Provider HEALTH MAINTENANCE Final Result from Last 3 Months or Most Recently Relevant to Health Maintenance Insurance [facility] [employer] Member Subscriber Plan / Payer (Ef fective 2024-Present) Name:MELYSSA KEATING Relation to Subscriber:Self Name:Melyssa Keating Payer ID:[id number] Group ID:[id number] Type:Not on file Address: [facility] [address] [phone] Care Teams Culinary Assistant Relationship Specialty Start Date End Date Ashwin Arzola MD [address] [place] [phone] PCP - General Internal Medicine 08/01/20
--- OUTSIDE RECORDS SUMMARY | 2025-07-07 09:33 | XMS_ITS | Encounter Summary ---
Author Organization [facility] Address [address] [place] [address] Care Team Providers Care Maintenance Construction Helper Name Role Phone Ashwin Arzola MD Primary Care Provider [phone] Encounter Details Date Type Department Care Team (Late st Contact Info) Description 07/06/2025 Telephone Adult Medicine [address] [phone] Ashwin Arzola MD [address] [place] [address] Social History Tobacco Use Types Packs/Day Years [...] as of this encounter Progress Notes * Axel Persaud MA - 07/06/2025 1:46 PM EDT Orders received from [employer] and to PCP for sig documented in this encounter Plan of Treatment Upcoming Encounters Date Type Department Care Team (Late Contact Info) Description 07/26/2025 10:30 AM EDT Office Visit Orthopedic Surgery - [place] 250 175 [facility] 250 [place] [address] Linus Luna, DPM 175 [facility] 250 [place] [address] 08/11/2025 10:35 AM EDT Office Visit Pulmonology - [place] 175 [facility] 200 [place] [address] Cami Dupont, HOUSE MOTHER 230 [place] [address] 08/15/2025 10:40 AM EST Office Visit [facility] - [facility] 102 300 [facility] 102 [place] [address] Hermelinda Marmolejo, [place] 300 [facility] 154 [place] [address] 01/23/2026 9:45 AM EDT Office Visit Adult Medicine [address] [phone] Ashwin Arzola MD [address] [place] [address] documented as of this encounter Visit Diagnoses Not on filedocumented in this encounter Care Teams Maintenance Construction Helper Relationship Specialty Start Date End Date Ashwin Arzola MD [address] [place] [address] PCP - General Internal Medicine 08/01/20 documented as of this encounter
--- OUTSIDE RECORDS SUMMARY | 2025-07-07 09:33 | XMS_ITS | Encounter Summary ---
Author Organization [facility] Address [address] [place] [address] Care Team Providers Care Concrete Bucket Unloader Name Role Phone Ashwin Arzola MD Primary Care Provider Encounter Details Date Type Department Care Team (Late Contact Info) Description 06/27/2025 Telephone Pulmonology [facility] 175 [facility] [address] [place] [address] Cami Dupont, [place]ORGES 230 [place] [address] Social History Tobacco Use Types Packs/Day Years [...] as of this encounter Progress Notes * Carlie Whatley - 06/27/2025 3:30 PM EDT Fax received from [employer] requesting last office note for patient. Last office note was faxed, confirmation received. documented in this encounter Plan of Treatment Upcoming Encounters Date Type Department Care Team (Late Contact Info) Description 07/26/2025 10:30 AM EDT Office Visit Orthopedic Surgery - [place] [address] [place] [address] Linus Luna, DPM 175 [facility] 250 [place] [address] 08/11/2025 10:35 AM EDT Office Visit Pulmonology - [place] 175 [facility] 200 [place] [address] Cami Dupont, CUSTOMER RETENTION REPRESENTATIVE 230 [place] [address] 08/15/2025 10:40 AM EST Office Visit [facility] - [facility] 102 300 [facility] 102 [place] [address] Hermelinda Marmolejo, [place] 300 [facility] 154 [place] [address] 01/23/2026 9:45 AM EDT Office Visit Adult Medicine [address] [phone] Ashwin Arzola MD [address] [place] [address] documented as of this encounter Visit Diagnoses Not on filedocumented in this encounter Care Teams Concrete Bucket Unloader Relationship Specialty Start Date End Date Ashwin Arzola MD [address] [place] [address] PCP - General Internal Medicine 08/01/20 documented as of this encounter
--- OUTSIDE RECORDS SUMMARY | 2025-07-07 09:33 | XMS_ITS | Encounter Summary ---
Author Organization [facility] Address [address] [place] [address] Care Team Providers Care Pumper Gauger Name Role Phone Ashwin Arzola MD Primary Care Provider [phone] Reason for Visit * Reason Onset Date Comments fax order [id number] [facility] 07/06/2025 Faxed order Encounter Details Date Type Department Care Team (Late Contact Info) Description 07/06/2025 Telephone Adult Medicine [address] [phone] Antonio Elias LPN Social History Tobacco Use [...] Progress Notes * Antonio Elias LPN - 07/06/2025 1:58 PM EDT Faxed order from [facility] [id number] On provider desk for signature documented in this encounter Plan of Treatment Upcoming Encounters Date Type Department Care Team (Late Contact Info) Description 07/26/2025 10:30 AM EDT Office Visit Orthopedic Surgery [facility] 250 175 [facility] 250 [place] [address] Linus Luna, DPM 175 [facility] 250 [place] [address] 08/11/2025 10:35 AM EDT Office Visit Pulmonology - [place] 175 [facility] 200 [place] [address] Cami Dupont, PROCESSING TECH 230 [place] [address] 08/15/2025 10:40 AM EST Office Visit [facility] - [facility] 102 300 [facility] 102 [place] [address] Hermelinda Marmolejo, [place] 300 [facility] 154 [place] [address] 01/23/2026 9:45 AM EDT Office Visit Adult Medicine [address] [phone] Ashwin Arzola MD [address] [place] [address] documented as of this encounter Visit Diagnoses Not on filedocumented in this encounter Care Teams Pumper Gauger Relationship Specialty Start Date End Date Ashwin Arzola MD [address] [place] [address] PCP - General Internal Medicine 08/01/20 documented as of this encounter
--- OUTSIDE RECORDS SUMMARY | 2025-07-07 09:33 | XMS_ITS | Encounter Summary ---
Author Organization [facility] Address [address] [place] [address] Care Team Providers Care Cook Pie Name Role Phone Ashwin Arzola MD Primary Care Provider [phone] Encounter Details Date Type Department Care Team ([facility] st Contact Info) Description 07/01/2025 Telephone Orthopedic Surgery - [place] [address] [address] Michele May MD 175 [place] [address] Social History Tobacco Use Types Packs/Day Years [...] as of this encounter Progress Notes * Soha Villasenor - 07/01/2025 2:48 PM EDT Outreach made to Home Health AideInderjit, at [phone] Message left RE options to obtain this EMG order: Available through patient [employer] Our office can mail order to home address Our office can fax the EMG order, fax number will need to be provided Patient and/or manager group home can stop at the office to roll picker up a print out Awaiting a call back from [employer], RE plan. * Jaya Correa - 07/01/2025 11:44 AM EDT Pt would like to do the hand test at [facility], If we can switch order. Pls call Home Health AideInderjit, at [phone] documented in this encounter Plan of Treatment Upcoming Encounters Date Type Department Care Team (Late st Contact Info) Description 07/26/2025 10:30 AM EDT Office Visit Orthopedic Surgery - [place] [address] [facility] 250 [place] [address] Linus Luna, DPM 175 [facility] 250 [place] [address] 08/11/2025 10:35 AM EDT Office Visit Pulmonology - [place] 175 [facility] 200 [place] [address] Cami Dupont, [place] 230 [place] [address] 08/15/2025 10:40 AM EST Office Visit [facility] - [facility] 102 300 [facility] 102 [place] [address] Hermelinda Marmolejo, [place] 300 [facility] 154 [place] [address] 01/23/2026 9:45 AM EDT Office Visit Adult Medicine [address] [phone] Ashwin Arzola MD [address] [place] [phone] documented as of this encounter Visit Diagnoses Not on filedocumented in this encounter Care Teams Cook Pie Relationship Specialty Start Date End Date Ashwin Arzola MD 4 [place] [address] PCP - General Internal Medicine 08/01/20 documented as of this encounter
--- OUTSIDE RECORDS SUMMARY | 2025-07-07 09:33 | XMS_ITS | Encounter Summary ---
Author Organization [facility] Address [address] [place] [address] Care Team Providers Care Staff Cytotechnologist Name Role Phone Ashwin Arzola MD Primary Care Provider [phone] Encounter Details Date Type Department Care Team ([facility] Contact Info) Description 07/04/2025 [place] Orthopedic Surgery - [place] 250 175 [facility] [address] [place] [address] Domitila Carl Social History Tobacco Use Types Packs/Day Years [...] as of this encounter Progress Notes * Domitila Carl - 07/04/2025 9:50 AM EDT Ivy from [employer] called stating that the patient in the their office for her Diabetic Shoes. Patient did not bring the Rx for this. Can you please right a new Rx for the patient? documented in this encounter Plan of Treatment Upcoming Encounters Date Type Department Care Team (Late Contact Info) Description 07/26/2025 10:30 AM EDT Office Visit Orthopedic Surgery - [place] 250 175 [facility] 250 [place] [address] Linus Luna, DPM 175 [facility] 250 [place] [address] 08/11/2025 10:35 AM EDT Office Visit Pulmonology - [place] 175 [facility] [address] [place] [address] Cami Dupont, PULL THROUGH HOOKER 230 [place] [address] 08/15/2025 10:40 AM EST Office Visit [facility] - [facility] 102 300 [facility] 102 [place] [address] Hermelinda Marmolejo NP [address] [facility] 154 [place] [address] 01/23/2026 9:45 AM EDT Office Visit Adult Medicine [address] [phone] Ashwin Arzola MD [address] [place] [address] documented as of this encounter Visit Diagnoses Not on filedocumented in this encounter Care Teams Staff Cytotechnologist Relationship Specialty Start Date End Date Ashwin Arzola MD [address] [place] [address] PCP - General Internal Medicine 08/01/20 documented as of this encounter
--- OUTSIDE RECORDS SUMMARY | 2025-07-07 09:33 | XMS_ITS | Encounter Summary ---
Author Organization [facility] Address [address] [place] [address] Care Team Providers Care Induction Machine Setter Name Role Phone Ashwin Arzola MD Primary Care Provider [phone] Encounter Details Date Type Department Care Team (Late Contact Info) Description 06/09/2025 Telephone Adult Medicine [address] [phone] Antonio Elias LPN Social History Tobacco Use [...] AM EDT Office Visit Orthopedic Surgery - [place] 250 175 [facility] 250 [place] [address] Linus Luna DPM 175 [facility] 250 [place] [address] 08/11/2025 10:35 AM EDT Office Visit Pulmonology [facility] 175 [facility] 200 [place] [address] Cami Dupont [place] [address] [place] [address] 08/15/2025 10:40 AM EST Office Visit [facility] - [facility] [address] 300 [facility] [address] [place] [address] Hermelinda Marmolejo, [place] [address] 154 [place] [address] 01/23/2026 9:45 AM EDT Office Visit Adult Medicine [address] [phone] Ashwin Arzola MD [address] [place] [address] documented as of this encounter Visit Diagnoses Not on filedocumented in this encounter Care Teams Induction Machine Setter Relationship Specialty Start Date End Date Ashwin Arzola MD [address] [place] [address] PCP - General Internal Medicine 08/01/20 documented as of this encounter
--- OUTSIDE RECORDS SUMMARY | 2025-07-07 09:33 | XMS_ITS | Encounter Summary ---
Author Organization [facility] Address [address] [place] [address] Care Team Providers Care Disk Grinder Name Role Phone Ashwin Arzola MD Primary Care Provider [phone] Encounter Details Date Type Department Care Team (Late Contact Info) Description 01/07/2025 Billing Patient Not Present Adult Medicine [address] [phone] Ashwin Arzola MD [address] [place] [address] Social History Tobacco Use Types Packs/Day Years [...] AM EDT Office Visit Orthopedic Surgery - [place] [address] [phone] Linus Luna, DPM [address] [phone] 08/11/2025 10:35 AM EDT Office Visit Pulmonology - [place] [address] [place] [address] Cami Dupont, [place] 230 [place] [address] 08/15/2025 10:40 AM EST Office Visit [facility] - [facility] [address] 300 [facility] 102 [place] [address] Hermelinda Marmolejo NP 300 [facility] [address] 154 [place] [address] 01/23/2026 9:45 AM EDT Office Visit Adult Medicine [address] [phone] Ashwin Arzola MD [address] [place] [address] documented as of this encounter Visit Diagnoses Not on filedocumented in this encounter Care Teams Disk Grinder Relationship Specialty Start Date End Date Ashwin Arzola MD [address] [place] [address] PCP - General Internal Medicine 08/01/20 documented as of this encounter
--- OUTSIDE RECORDS SUMMARY | 2025-07-07 09:33 | XMS_ITS ---
Author Organization [facility] Care Team Providers Care Hand Blocker Name Role Phone Altaf Clemente Unavailable Unavailable Lynn Duncan Unavailable Unavailable Allergies and adverse reactions Code CodeSystem Substance Reaction Severity StartDate Concern Status 7984 RXNORM Penicillin Unknown 06/08/2024 active Care Team Name Role Address Phone Organization Dates Lynn Duncan PCP [address], [address], [place] (Office): : [facility] 06/08/2024 - 07/01/2024 Altaf Clemente [address] [facility] [address], [place], [address], [place] (Office): : [facility] 06/08/2024 - 07/01/2024 Immunizations Immunization Status Vaccine Details Vaccine Code CodeSystem Date Notes Influenza completed Influenza, high-dose, split virus, quadrivalent, injectable, preservative free 197 CVX created date: 06/16/2024 administer ed date: 08/02/2022 TB 1 Step Mantoux (PPD) completed tuberculin skin test; unspecified formulation lotNumber: [id number] expiry: 02/14/2027 Given 0.1 ml Left Forearm subcutaneously 98 CVX created date: 06/10/2024 consent date: 06/09/2024 administer ed date: 06/09/2024 PPSV23 (Pneumococcal Polysaccharide Vaccine) completed pneumococcal polysaccharide vaccine, 23 valent 33 CVX created date: 06/16/2024 administer ed date: 03/24/2016 SARS-COV-2 (COVID-19) completed SARS-COV-2 (COVID-19) vaccine, mRNA, spike protein, LNP, preservative free, lucila-sucrose, 30 mcg/0.3 mL dose Mfg: pfizer Step 1 of Multi-step 309 CVX created date: 06/16/2024 administer ed date: 01/17/2021 only one initial dose found in records/[place] IS Shingrix Dose 1 completed zoster vaccine recombinant 187 CVX created date: 06/16/2024 administer ed date: 10/10/2021 Shingrix - Dose 2 completed zoster vaccine recombinant 187 CVX created date: 06/16/2024 administer ed date: 12/10/2021 TD Diphtheria/Tetanu s completed tetanus and diphtheria toxoids, adsorbed, preservative free, for adult use (2 Lf of tetanus toxoid and 2 Lf of diphtheria toxoid) 09 CVX created date: 06/16/2024 administer ed date: 07/13/2020 TD Diphtheria/Tetanu s completed tetanus and diphtheria toxoids, adsorbed, preservative free, for adult use (2 Lf of tetanus toxoid and 2 Lf of diphtheria toxoid) 09 CVX created date: 06/16/2024 administer ed date: 04/22/2009 SARS-COV(COVID-19 ) booster completed SARS-COV-2 (COVID-19) vaccine, mRNA, spike protein, LNP, preservative free, 30 mcg/0.3mL dose Mfg: [employer] 208 CVX created date: 06/16/2024 administer ed date: 11/07/2021 PCV20 completed Pneumococcal conjugate vaccine 20-valent (PCV20), polysaccharide [id number] conjugate, adjuvant, preservative free 216 CVX created date: 06/16/2024 administer ed date: 08/21/2023 Mental Status Section Date Assessment Total Score Description 07/01/2024 BIMS 13 cognitively int act CAM 0 No delirium ind icated PHQ-9 00 06/15/2024 BIMS 13 cognitively int act CAM 0 No delirium ind icated PHQ-9 01 minimal depress ion Problems Problem # Description Date of onset Resolved Date Code CodeSystem Concern Status 1 BODY MASS INDEX [BMI] 31.0-31.9, ADULT [address] active 2 DEPRESSION, UNSPECIFIED [address] active 3 ESSENTIAL (PRIMARY) HYPERTENSION [address] active 4 INSOMNIA, UNSPECIFIED [address] active 5 MORBID (SEVERE) OBESITY DUE TO EXCESS CALORIES [address] active 6 OTHER SPECIFIED CHRONIC OBSTRUCTIVE PULMONARY DISEASE [address] active 7 PERSONAL HISTORY OF TRANSIENT ISCHEMIC ATTACK (TIA), AND CEREBRAL INFARCTION WITHOUT RESIDUAL DEFICITS [address] active 8 PURE HYPERCHOLESTEROLE CARLI, UNSPECIFIED [address] active 9 TYPE 2 DIABETES MELLITUS WITHOUT COMPLICATIONS [address] active 10 UNSPECIFIED DEMENTIA, UNSPECIFIED SEVERITY, WITH PSYCHOTIC DISTURBANCE [address] active 11 UNSPECIFIED DEMENTIA, UNSPECIFIED SEVERITY, WITHOUT BEHAVIORAL DISTURBANCE, PSYCHOTIC DISTURBANCE, MOOD DISTURBANCE, AND ANXIETY [address] active 12 UNSPECIFIED URINARY INCONTINENCE [address] active 13 VASCULAR DEMENTIA, SEVERE, WITH OTHER BEHAVIORAL DISTURBANCE [address] active Reason for Referral No Reasons for Referral Entered Social History Social History Observation Description Start Date End Date Code Code System Current Smoking Status Tobacco smoking consumption unknown 240859531 SNOMED CT Sex Assigned At Female 1955 99683-6 LOINC Gender Identity Sexual Orientation Vital Signs Code Code System Vitals Name Values and Units Timing Information 68428-6 LOINC Pain Level Value=0.0 07/01/2024 9279-[address] [facility] Respiratory Rate Value=18.0 Units=/m in 06/18/2024 8462-[address] [facility] Blood Pressure-Diastolic Value=70 Un its=mmHg 06/18/2024 8480-[address] [facility] Blood Pressure-Systolic Xbvlf=329 Un its=mmHg 06/18/2024 8310-[address] [facility] Body Temperature Value=98.1 Units= F 06/18/2024 8867-[address] [facility] Heart rate Value=70.0 Units=/min 03/2024 93918-[address] [facility] O2 % BldC Oximetry Value=97.0 Units= % 06/18/2024 81443-[address] [facility] Weight Ojusz=627.2 Units=Lbs 02/2024 2339-[address] [facility] Blood Sugar Gakcw=793.0 Units=mg/dL 06/16/2024 8302-[address] [facility] Height Value=64.96 Units=Inches 06/09/2024
--- OUTSIDE RECORDS SUMMARY | 2025-07-07 09:33 | XMS_ITS | Encounter Summary ---
Author Organization [facility] Address [address] [place] [address] Care Team Providers Care Farmworker Field Crop Name Role Phone Ashwin Arzola MD Primary Care Provider Encounter Details Date Type Department Care Team (Late Contact Info) Description 01/19/2025 Billing Patient Not Present Adult Medicine [address] [phone] Ashwin Arzola MD [address] [place] [address] Social History Tobacco Use Types Packs/Day Years [...] AM EDT Office Visit Orthopedic Surgery - [place] [address] [phone] Linus Luna, DPM [address] [address] 08/11/2025 10:35 AM EDT Office Visit Pulmonology - [place] [address] [place] [address] Cami Dupont, [place]ES 230 [place] [address] 08/15/2025 10:40 AM EST Office Visit [facility] - [facility] [address] 300 [facility] 102 [place] [address] Hermelinda Marmolejo NP 300 [facility] [address] 154 [place] [address] 01/23/2026 9:45 AM EDT Office Visit Adult Medicine [address] [phone] Ashwin Arzola MD [address] [place] [address] documented as of this encounter Visit Diagnoses Not on filedocumented in this encounter Care Teams Farmworker Field Crop Relationship Specialty Start Date End Date Ashwin Arzola MD [address] [place] [address] PCP - General Internal Medicine 08/01/20 documented as of this encounter
--- OUTSIDE RECORDS SUMMARY | 2025-07-07 09:33 | XMS_ITS | Clinical Summary ---
Author Organization [facility] Address [address] [facility] [address] [place] [address] Phone Care Team Providers Care Cash Application Clerk Name Role Phone Unavailable Primary Care Provider [...] file Medical Devices Not on file Insurance [facility]PL[facility] MEDICARE REPLACEMENT MEDICARE REPLACEMENT [facility] MEDICARE REPLACEMENT [facility] MEDICARE REPLACEMENT [facility] MEDICARE REPLACEMENT Additional Source Comments The information contained in this document represents components of the legal health record. It is not the complete legal health record.[facility]
== END 2025-07-07 09:40 | disposition home or self-care (01) ==
LOC: HO.HCS 08:53
PROVIDERS: PCP Internal Medicine; Visit Provider Nurse Practitioner Family
DX: R07.9 Chest pain, unspecified (principal); I21.4 Non-ST elevation (NSTEMI) myocardial infarction; I10 Essential (primary) hypertension; E78.2 Mixed hyperlipidemia; Z01.810 Encounter for preprocedural cardiovascular examination
CPT/HCPCS: 93010; 99214; G2211

== ENCOUNTER → 2025-07-07 08:53 | Outpatient (BNVA) | payer OTHER, SELFPAY | PROVIDERS: PCP Internal Medicine; Visit Provider Nurse Practitioner Family | DX: Z01.810 Encounter for preprocedural cardiovascular examination (principal); R07.9 Chest pain, unspecified; I21.4 Non-ST elevation (NSTEMI) myocardial infarction; E78.2 Mixed hyperlipidemia | CPT/HCPCS: 93005; 99212 ==

== ENCOUNTER 2025-07-08 13:35 | Emergency (ER) | payer OTHER, SELFPAY ==
[2025-07-08 13:47] VITALS: BP 111/66; PULSE 76
[2025-07-08 13:49] VITALS: BP 118/50; PULSE 69; RESP 16; TEMP 36.8; O2SAT 94; BMI 31.2
[2025-07-08 13:50] LABS: Glucose, Whole Blood 115 mg/dL (60-115)
[2025-07-08 14:14] LABS: MANUAL DIFF FLAG NO
--- NOTE | 2025-07-08 14:15 | PC.NURSE ---
patient a&ox3, labs drawn, pt aware we need urine. rr equal/non labored- lungs clear. POC obtained 115. pt awaiting provider evaluation, call godfrey within reach, plan of care ongoing
[2025-07-08 14:17] LABS: Hematocrit 34.7 % (37.0-47.0); Hemoglobin 11.0 g/dl (12.0-16.0); Imm Gran Abs Auto 0.02 X10*3/uL (0.00-0.03); Imm Gran Pct Auto 0.3 % (0.0-0.4); Lymphocytes Absolute Auto 1.5 X10*3/uL (1.2-4.9); Mean Corpuscular HGB Conc 31.7 g/dl (31.0-35.0); Mean Corpuscular Hemoglobin 26.8 pg (27.0-33.0); Mean Corpuscular Volume 84.4 fL (80.0-98.0); NRBC Abs Auto 0.000 X10*3/uL (0.0-0.012); NRBC Pct Auto 0.0 /100WBC (0.0-0.2); Platelet Count 192 X10*3/uL (160-400); Red Blood Count 4.11 X10*6/uL (4.20-5.50); White Blood Count 7.5 X10*3/uL (4.8-10.8)
[2025-07-08 14:29] LABS: Alanine Aminotransferase 14 U/L (0-31); Albumin Level 3.6 g/dL (3.5-5.0); Alkaline Phosphatase 60 U/L (39-117); Anion Gap 10 (12-20); Aspartate Amino Transferase 20 U/L (5-31); Blood Urea Nitrogen 13 mg/dL (9-16); Calcium 9.0 mg/dL (8.4-10.2); Carbon Dioxide 30 mmol/L (22-29); Chloride 107 mmol/L (96-108); Creatinine Clr Calc Pharmacy 94.2; Estimated Glomerular Filt Rate > 60; Potassium 3.7 mmol/L (3.3-5.1); Sodium 143 mmol/L (135-145); Total Protein 6.6 g/dL (6.5-8.0)
--- OUTSIDE RECORDS SUMMARY | 2025-07-08 15:35 | XMS_ITS | Encounter Summary ---
Author Organization [facility] Address [address] [place] [address] Care Team Providers Care Conical Mixer Name Role Phone Ashwin Arzola MD Primary Care Provider Encounter Details Date Type Department Care Team ([facility] Contact Info) Description 07/04/2025 [place] Orthopedic Surgery - [place] 250 175 [facility] [address] [place] [address] Domitila Carl Social History Tobacco [...] AM EDT Office Visit Orthopedic Surgery - [place] 250 175 [facility] 250 [place] [address] Linus Luna, DPM 175 [facility] 250 [place] [address] 08/11/2025 10:35 AM EDT Office Visit Pulmonology - [place] 175 [facility] [address] [place] [address] Cami Dupont, ELECTRICIAN SECOND 230 [place] [address] 08/15/2025 10:40 AM EST Office Visit [facility] - [facility] 102 300 [facility] 102 [place] [address] Hermelinda Marmolejo NP [address] [facility] 154 [place] [address] 01/23/2026 9:45 AM EDT Office Visit Adult Medicine [address] [phone] Ashwin Arzola MD [address] [place] [address] documented as of this encounter Visit Diagnoses Not on filedocumented in this encounter Care Teams Conical Mixer Relationship Specialty Start Date End Date Ashwin Arzola MD [address] [place] [address] PCP - General Internal Medicine 08/01/20 documented as of this encounter
--- OUTSIDE RECORDS SUMMARY | 2025-07-08 15:35 | XMS_ITS | Encounter Summary ---
Author Organization [facility] Address [address] [place] [address] Care Team Providers Care Institutional Research Director Name Role Phone Ashwin Arzola MD Primary Care Provider Encounter Details Date Type Department Care Team (Late Contact Info) Description 01/19/2025 Billing Patient Not Present Adult Medicine [address] [phone] Ashwin Arzola MD [address] [place] [address] Social History Tobacco Use Types Packs/Day Years [...] AM EDT Office Visit Orthopedic Surgery - [place] [address] [phone] Linus Luna, DPM [address] [phone] 08/11/2025 10:35 AM EDT Office Visit Pulmonology - [place] [address] [place] [phone] Cami Dupont, GEORGES 230 [place] [address] 08/15/2025 10:40 AM EST Office Visit [facility] - [facility] [address] 300 [facility] 102 [place] [address] Hermelinda Marmolejo NP 300 [facility] [address] [place] [address] 01/23/2026 9:45 AM EDT Office Visit Adult Medicine [address] [phone] Ashwin Arzola MD [address] [place] [address] documented as of this encounter Visit Diagnoses Not on filedocumented in this encounter Care Teams Institutional Research Director Relationship Specialty Start Date End Date Ashwin Arzola MD [address] [place] [address] PCP - General Internal Medicine 08/01/20 documented as of this encounter
--- OUTSIDE RECORDS SUMMARY | 2025-07-08 15:35 | XMS_ITS | Encounter Summary ---
Author Organization [facility] Address [address] [place] [address] Care Team Providers Care Resident Director Name Role Phone Ashwin Arzola MD Primary Care Provider Reason for Visit * Reason Onset Date Comments triage low BS 07/08/2025 See VNA message Encounter Details Date Type Department Care Team (Late st Contact Info) Description 07/08/2025 Telephone Adult Medicine [address] [phone] Ashwin Arzola MD [address] [place] [address] Social History Tobacco Use Types Packs/Day Years [...] Progress Notes * Nika Ballesteros RN - 07/08/2025 1:56 PM EDT Called and spoke to Gini. She states when she left pt's home this morning her BG was 69, via sensor, at approximately 9:30 am. She did not confirm the glucose with a fingerstick. She held pt's Lantus insulin. She called to check on pt at 11:30 am and according to the sensor her BG was 49. She instructed pt's TOILET AND LAUNDRY SOAP SUPERVISOR to give herOJ and a PBG sandwich. Afterwards pt's BG via sensor was 50. Gini states she changed pt's sensor yesterday. She instructed pt's TOILET AND LAUNDRY SOAP SUPERVISOR to call 911 and she was transported to [facility] ER. * Antonio Elias LPN - 07/08/2025 12:55 PM EDT Please triage see Vna message * Domitila Lott - 07/08/2025 12:32 PM EDT VNA CALL Which [facility]NA office is calling? [facility] Full name of caller: Gini The caller is A nurse Is the caller at the patients home?: no Reason for call: reporting low blood sugar fastening 53 After a bowl cornstarch & sugar, peanut butter sandwich down to 51 Does caller need an urgent call back? yes Was CONTACT Telephone # obtained above?: yes Fax #: n/a documented in this encounter Plan of Treatment Upcoming Encounters Date Type Department Care Team (Late st Contact Info) Description 07/26/2025 10:30 AM EDT Office Visit Orthopedic Surgery - [place] 250 175 [facility] [address] [place] [address] Linus Luna DPM 175 [facility] 250 [place] [address] 08/11/2025 10:35 AM EDT Office Visit Pulmonology - [place] 175 [facility] [address] [place] [address] Cami Dupont NP [address] [place] [phone] 08/15/2025 10:40 AM EST Office Visit [facility] - [facility] [address] 300 [facility] [address] [place] [address] Hermelinda Marmolejo NP [address] [place] [address] 01/23/2026 9:45 AM EDT Office Visit Adult Medicine [address] [phone] Ashwin Arzola MD [address] [place] [address] documented as of this encounter Visit Diagnoses Not on filedocumented in this encounter Care Teams Resident Director Relationship Specialty Start Date End Date Ashwin Arzola MD [address] [place] [address] PCP - General Internal Medicine 08/01/20 documented as of this encounter
--- OUTSIDE RECORDS SUMMARY | 2025-07-08 15:35 | XMS_ITS | Encounter Summary ---
Author Organization [facility] Address [address] [place] [address] Care Team Providers Care Bowling Ball Finisher Name Role Phone Ashwin Arzola MD Primary Care Provider [phone] Encounter Details Date Type Department Care Team (Late Contact Info) Description 06/27/[address] [facility] 175 [facility] [address] [place] [address] Cami Dupont, [place]ORGES 230 [place] [phone] Social History Tobacco Use Types Packs/Day Years [...] Upcoming Encounters Date Type Department Care Team ([facility] Contact Info) Description 07/26/2025 10:30 AM EDT Office Visit Orthopedic Surgery - [place] [address] [place] [address] Linus Luna, DPM 175 [facility] 250 [place] [phone] 08/11/2025 10:35 AM EDT Office Visit Pulmonology - [place] 175 [facility] 200 [place] [phone] Cami Dupont, METALSMITH HELPER 230 [place] [address] 08/15/2025 10:40 AM EST Office Visit [facility] - [facility] 102 300 [facility] 102 [place] [phone] Hermelinda Marmolejo, [place] 300 [facility] 154 [place] [address] 01/23/2026 9:45 AM EDT Office Visit Adult Medicine [address] [phone] Ashwin Arzola MD [address] [place] [address] documented as of this encounter Visit Diagnoses Not on filedocumented in this encounter Care Teams Bowling Ball Finisher Relationship Specialty Start Date End Date Ashwin Arzola MD [address] [place] [address] PCP - General Internal Medicine 08/01/20 documented as of this encounter
--- OUTSIDE RECORDS SUMMARY | 2025-07-08 15:35 | XMS_ITS | Encounter Summary ---
Author Organization [facility] Address [address] [place] [address] Care Team Providers Care Corrugator Operator Helper Name Role Phone Ashwin Arzola MD Primary Care Provider Encounter Details Date Type Department Care Team (Late Contact Info) Description 01/07/2025 Billing Patient Not Present Adult Medicine [address] [phone] Ashwin Arzola MD [address] [place] [address] Social History Tobacco Use Types Packs/Day Years [...] AM EDT Office Visit Orthopedic Surgery - [place] [address] [phone] Linus Luna, DPM [address] [phone] 08/11/2025 10:35 AM EDT Office Visit Pulmonology - [place] [address] [place] [phone] Cami Dupont, GE[place]ES 230 [place] [address] 08/15/2025 10:40 AM EST Office Visit [facility] - [facility] [address] 300 [facility] 102 [place] [address] Hermelinda Marmolejo NP 300 [facility] [address] [place] [address] 01/23/2026 9:45 AM EDT Office Visit Adult Medicine [address] [phone] Ashwin Arzola MD [address] [place] [address] documented as of this encounter Visit Diagnoses Not on filedocumented in this encounter Care Teams Corrugator Operator Helper Relationship Specialty Start Date End Date Ashwin Arzola MD [address] [place] [address] PCP - General Internal Medicine 08/01/20 documented as of this encounter
--- OUTSIDE RECORDS SUMMARY | 2025-07-08 15:35 | XMS_ITS ---
Author Organization [facility] Care Team Providers Care Miner Name Role Phone Altaf Clemente Unavailable Unavailable Lynn Duncan Unavailable Unavailable Allergies and adverse reactions Code CodeSystem Substance Reaction Severity StartDate Concern Status 7984 RXNORM Penicillin Unknown 06/08/2024 active Care Team Name Role Address Phone Organization Dates Lynn Duncan PCP [address], [address], [place] (Office): : [facility] 06/08/2024 - 07/01/2024 Altaf Clemente 819 [facility] [address], [place], [address], [place] (Office): : [facility] 06/08/2024 - 07/01/2024 Immunizations Immunization Status Vaccine Details Vaccine Code CodeSystem Date Notes Influenza completed Influenza, high-dose, split virus, quadrivalent, injectable, preservative free 197 CVX created date: 06/16/2024 administer ed date: 08/02/2022 TB 1 Step Mantoux (PPD) completed tuberculin skin test; unspecified formulation lotNumber: [id number] expiry: 02/14/2027 Given 0.1 ml Left Forearm [...] 01/17/2021 only one initial dose found in records/AL IS Shingrix Dose 1 completed zoster vaccine [...] LNP, preservative free, 30 mcg/0.3mL dose Mfg: [employer] 208 CVX created date: 06/16/2024 administer ed date: 11/07/2021 PCV20 completed Pneumococcal conjugate vaccine 20-valent (PCV20), polysaccharide [id number] conjugate, adjuvant, preservative free 216 CVX created [...] BODY MASS INDEX [BMI] 31.0-31.9, ADULT [address] active 2 DEPRESSION, UNSPECIFIED [address] active 3 ESSENTIAL (PRIMARY) HYPERTENSION [address] active 4 INSOMNIA, UNSPECIFIED [address] active 5 MORBID (SEVERE) OBESITY DUE TO EXCESS CALORIES [address] active 6 OTHER SPECIFIED CHRONIC OBSTRUCTIVE PULMONARY DISEASE [address] active 7 PERSONAL HISTORY OF TRANSIENT ISCHEMIC ATTACK (TIA), AND CEREBRAL INFARCTION WITHOUT RESIDUAL DEFICITS [address] active 8 PURE HYPERCHOLESTEROLE CARLI, UNSPECIFIED [address] active 9 TYPE 2 DIABETES MELLITUS WITHOUT COMPLICATIONS [address] active 10 UNSPECIFIED DEMENTIA, UNSPECIFIED SEVERITY, WITH PSYCHOTIC DISTURBANCE [address] active 11 UNSPECIFIED DEMENTIA, UNSPECIFIED SEVERITY, WITHOUT BEHAVIORAL DISTURBANCE, PSYCHOTIC DISTURBANCE, MOOD DISTURBANCE, AND ANXIETY [address] active 12 UNSPECIFIED URINARY INCONTINENCE [address] active 13 VASCULAR DEMENTIA, SEVERE, WITH OTHER BEHAVIORAL DISTURBANCE [address] active Reason for Referral No Reasons for Referral Entered Social History Social History Observation Description Start Date End Date Code Code System Current Smoking Status Tobacco smoking consumption unknown 154185413 SNOMED CT Sex Assigned At Female 1955 75918-8 LOINC Gender Identity Sexual Orientation Vital Signs Code Code System Vitals Name Values and Units Timing Information 18411-3 LOINC Pain Level Value=0.0 07/01/2024 9279-1 [facility] Respiratory Rate Value=18.0 Units=/m in 06/18/2024 8462-4 [facility] Blood Pressure-Diastolic Value=70 Un its=mmHg 06/18/2024 8480-6 [facility] Blood Pressure-Systolic Jvvdh=301 Un its=mmHg 06/18/2024 8310-5 [facility] Body Temperature Value=98.1 Units= F 06/18/2024 8867-4 [facility] Heart rate Value=70.0 Units=/min 03/2024 15197-8 [facility] O2 % BldC Oximetry Value=97.0 Units= % 06/18/2024 47726-2 [facility] Weight Ljhnx=116.2 Units=Lbs 02/2024 2339-0 [facility] Blood Sugar Owqlk=376.0 Units=mg/dL 06/16/2024 8302-2 [facility] Height Value=64.96 Units=Inches 06/09/2024
--- OUTSIDE RECORDS SUMMARY | 2025-07-08 15:35 | XMS_ITS | Encounter Summary ---
Author Organization [facility] Address [address] [place] [address] Care Team Providers Care Physician Coding Specialist Name Role Phone Ashwin Arzola MD Primary Care Provider [phone] Reason for Visit * Reason Onset Date Comments fax order [id number] [facility] 07/06/2025 Faxed order Encounter Details Date Type Department Care Team (Late Contact Info) Description 07/06/2025 Telephone Adult Medicine [address] [phone] Antonio Elias LPN Social History Tobacco Use [...] EDT Faxed order from [facility] [phone] On provider desk for signature documented in this encounter Plan of Treatment Upcoming Encounters Date Type Department Care Team (Late Contact Info) Description 07/26/2025 10:30 AM EDT Office Visit Orthopedic Surgery [facility] 250 175 [facility] 250 [place] [address] Linus Luna, DPM 175 [facility] 250 [place] [address] 08/11/2025 10:35 AM EDT Office Visit Pulmonology - [place] 175 [facility] 200 [place] [phone] Cami Dupont, PROJECT DEVELOPMENT LEADER 230 [place] [address] 08/15/2025 10:40 AM EST Office Visit [facility] - [facility] 102 300 [facility] 102 [place] [phone] Hermelinda Marmolejo, [place]ES 300 [facility] 154 [place] [address] 01/23/2026 9:45 AM EDT Office Visit Adult Medicine [address] [phone] Ashwin Arzola MD [address] [place] [address] documented as of this encounter Visit Diagnoses Not on filedocumented in this encounter Care Teams Physician Coding Specialist Relationship Specialty Start Date End Date Ashwin Arzola MD [address] [place] [address] PCP - General Internal Medicine 08/01/20 documented as of this encounter
--- OUTSIDE RECORDS SUMMARY | 2025-07-08 15:35 | XMS_ITS | Encounter Summary ---
Author Organization [facility] Address [address] [place] [address] Care Team Providers Care Sociology Faculty Member Name Role Phone Ashwin Arzola MD Primary Care Provider Encounter Details Date Type Department Care Team (Late Contact Info) Description 06/09/2025 Telephone Adult Medicine [address] [phone] Antonio Elias LPN Social History Tobacco Use [...] AM EDT Office Visit Orthopedic Surgery - [place] 250 175 [facility] 250 [place] [address] Linus Luna DPM 175 [facility] 250 [place] [address] 08/11/2025 10:35 AM EDT Office Visit Pulmonology [facility] 175 [facility] 200 [place] [phone] Cami Dupont [place]ES 230 [place] [address] 08/15/2025 10:40 AM EST Office Visit [facility] - [facility] [address] [facility] [address] [place] [address] Hermelinda Marmolejo, [place] [address] [place] [address] 01/23/2026 9:45 AM EDT Office Visit Adult Medicine [address] [phone] Ashwin Arzola MD [address] [place] [address] documented as of this encounter Visit Diagnoses Not on filedocumented in this encounter Care Teams Sociology Faculty Member Relationship Specialty Start Date End Date Ashwin Arzola MD [address] [place] [address] PCP - General Internal Medicine 08/01/20 documented as of this encounter
--- OUTSIDE RECORDS SUMMARY | 2025-07-08 15:35 | XMS_ITS | Clinical Summary ---
Author Organization [facility] [address] [facility] Address [address] [place] [address] Phone Care Team Providers Care Senior Instrumentation Engineer Name Role Phone Ashwin Arzola MD Primary Care Provider [phone] Allergies Active Allergy Reactions Criticality Noted Date [...] topically 4 times daily. 02/04/20 23 Active DULoxetine (CYMBALTA) [address] capsule TAKE 1 CAPSULE BY MOUTH ONCE DAILY WITH 60MG FOR TOTAL DAILY DOSE OF 80MG 11/16/19 22 Active miconazole nitrate 2 % aerosol,spray Apply 1 applicator topically. 01/08/20 24 Active naproxen (NAPROSYN) 500 mg tablet Take 1 Tablet by mouth 2 times daily (with meals). 11/07/19 24 Active nystatin (MYCOSTATIN) 100,000 unit/gram powder 11/07/19 24 Active pantoprazole (PROTONIX) 40 mg [...] CHECK SUGARS TWICE DAILY 09/25/20 23 Active glucose blood test strip USE TO [...] each day. 30 each 08/26/20 24 Active famotidine (Pepcid) 20 mg tablet Take 1 tablet (20 mg total) by mouth 1 (one) time each day. 30 each 08/26/20 24 2024 Active clonazePAM (KlonoPIN) 0.5 mg tablet Take 0.5 tablets (0.25 mg total) by mouth 1 (one) time each day. Max Daily Amount: 0.25 mg 15 each 08/26/20 24 Active valproic acid (DEPAKENE) 250 mg/5 mL syrup Take 5 mL (250 mg total) by mouth 2 (two) times a day. 300 mL 08/26/20 24 Active hydrocortisone 2.5 % cream Apply topically 2 (two) times a day if needed for irritation or rash. 30 g 2 09/23/20 24 2024 Active blood-glucose meter,continuou s (FreeStyle Cade 3 [place]) miscIndications :Type 2 diabetes mellitus with other specified complication, with long-term current use of insulin ([facility] V24, [facility] V28) To check sugars 1 each 09/28/20 24 Active docusate sodium (COLACE) 100 mg capsule TAKE 1 CAPSULE BY MOUTH TWICE DAILY 60 capsule 4 11/29/19 25 Active diclofenac (VOLTAREN) 1 % topical gel Apply 2 g topically 4 (four) times a day. 30 g 1 12/21/19 25 Active diclofenac (VOLTAREN) 1 % topical gel Apply 2 g topically 4 (four) times a day. 30 g 1 01/28/20 25 Active blood-glucose sensor (FreeStyle Cade 3 Plus Sensor) deviceIndicatio ns:Type 2 diabetes mellitus with other specified complication, with long-term current use of insulin ([facility] V24, [facility] V28) Box = Kit = EA, change sensor every 14 days 6 each 01/28/20 25 Active clonazePAM (KlonoPIN) 0.5 mg tablet One tab qhs and 1/2 tab in the am 45 tablet 01/28/20 25 Active amitriptyline (ELAVIL) 150 mg tablet Take 1 tablet (150 mg total) by mouth at bedtime. 30 tablet 01/28/20 25 Active loratadine (CLARITIN) 10 mg tabletIndicatio ns:Moderate persistent asthma without complication Take 1 tablet (10 mg total) by mouth 1 (one) time each day. 30 each 2 02/23/20 25 2025 Active albuterol HFA (Ventolin HFA) 90 mcg/actuation inhalerIndicati ons:Moderate persistent asthma without complication Inhale 2 puffs by mouth every 6 (six) hours if needed for wheezing. 18 g 2 02/23/20 25 2025 Active ipratropium-alb uteroL (DUONEB) 0.5-2.5 mg/3 mL nebulizer solutionIndicat ions:Moderate persistent asthma without complication Take 3 mL by nebulization every 6 (six) hours if needed for wheezing or shortness of breath (or cough or chest tightness.). 150 mL 2 02/23/20 25 2025 Active traZODone (DESYREL) 50 mg tablet TAKE 1 TABLET BY MOUTH ONCE DAILY AT BEDTIME NEEDED FOR SLEEP 90 tablet 1 02/24/20 25 Active atorvastatin (LIPITOR) 80 mg tablet TAKE 1 TABLET BY MOUTH DAILY AT BEDTIME 90 tablet 1 02/24/20 25 Active metoprolol succinate (TOPROL-XL) 25 mg 24 hr tablet TAKE 1 TABLET BY MOUTH ONCE DAILY 90 tablet 1 02/24/20 25 Active senna 8.6 mg tablet Take 1 tablet (8.6 mg total) by mouth 1 (one) time each day. 30 tablet 4 03/01/20 25 Active acetaminophen (TYLENOL 8 HOUR) 650 mg 8 hr tablet Take 1 tablet (650 mg total) by mouth 2 (two) times a day if needed for mild pain. Take 1 Tablet by mouth 2 times daily for 10 days 30 tablet 03/01/20 25 Active gabapentin (NEURONTIN) 300 mg capsule Take 1 capsule (300 mg total) by mouth 2 (two) times a day. Active predniSONE (DELTASONE) 20 mg tablet 3 tabs po x 5days then 2 tabs po x 5 days then one tab po x 5 day 30 each 5 03/16/20 25 Active albuterol 2.5 mg /3 mL (0.083 %) nebulizer solutionIndicat ions:Dyspnea, unspecified type,Severe persistent asthma, unspecified whether complicated ([facility] V28) Take 3 mL (2.5 mg total) by nebulization 4 (four) times a day if needed for wheezing or shortness of breath. 360 mL 1 03/16/20 25 2025 Active fluticasone-ume clidinium-vilan terol (Trelegy Ellipta) 100-62.5-25 mcg inhalerIndicati ons:Moderate persistent asthma without complication Inhale 1 puff (100 mcg total) by mouth 1 (one) time each day. 1 each 2 03/29/20 25 Active magnesium oxide (MAG-OX) 400 mg (241.3 elemental magnesium) tablet Take 1 tablet (400 mg total) by mouth 1 (one) time each day. 90 tablet 1 04/18/20 25 Active metFORMIN XR (GLUCOPHAGE-XR) 500 mg 24 hr tabletIndicatio ns:Type 2 diabetes mellitus with other specified complication, with long-term current use of insulin ([facility] V24, [facility] V28) Take 1 tablet (500 mg total) by mouth 1 (one) time each day. 30 tablet 1 05/23/20 25 Active metoclopramide (REGLAN) 10 mg tablet TAKE 1 TABLET (10 MG TOTAL) BY MOUTH 4 (FOUR) TIMES A DAY. 120 tablet 05/18/20 25 Active ammonium lactate (AMLACTIN) 12 % cream Apply topically if needed for dry skin. 560 g 1 05/24/20 25 2024 Active diclofenac (VOLTAREN) 1 % topical gel APPLY 2 GRAMOS TOPICALLY TO THE AFFECTED AREA two (2) times a day 100 g 5 05/27/20 25 Active mupirocin (BACTROBAN) 2 % cream Apply topically 3 (three) times a day. 30 g 06/08/20 25 Active insulin glargine (Lantus Solostar U-100 Insulin) 100 unit/mL (3 mL) injection pen Inject 32-34 Units under the skin 1 (one) time each day. 15 mL 06/08/20 25 Active montelukast (SINGULAIR) 10 mg tabletIndicatio ns:Moderate persistent asthma without complication TAKE 1 TABLET BY MOUTH ONCE DAILY AT BEDTIME 30 tablet 2 06/29/20 25 Active montelukast (SINGULAIR) 10 mg tabletIndicatio ns:Moderate persistent asthma without complication Take 1 tablet (10 mg total) by mouth at bedtime. 30 tablet 2 02/23/20 25 2024 Discontinued doxycycline (VIBRAMYCIN) 100 mg capsule Take 1 capsule (100 mg total) by mouth 2 (two) times a day for 7 days. Take with at least 8 ounces (large glass) of water, do not lie down for 30 minutes after. Administer 2 hours before or after multivitamins, antacids, or other products containing polyvalent cations (i.e., calcium, iron, magnesium, selenium, zinc). 14 each 06/08/20 25 2024 Active Problems Problem Noted Date Diagnosed Date Abnormal CT of the abdomen 08/19/2024 Bipolar disorder ([facility] V24, [facility] V28) 04/2024 Overview (08/19/2024): [facility] COVID-19 08/19/2024 CTS (carpal tunnel syndrome) [...] Type 2 diabetes mellitus wit h cataract ([facility] V24, [facility] V28) 05/04/2020 Obesity (BMI 30.0-34.9) 02/10/2018 Stage 1 mild COPD by GOLD cl assification ([facility] V24, [facility] V28) 02/10/2018 Overview (08/19/2024): Last Assessment & Plan: Mild COPD. Continue with Trelegy 1 puff once a day. Migraine 01/16/2017 Palpitations 07/08/2016 CHF (congestive heart failure) ([facility] V24, [facility] V28) 04/22/2016 Asthma 04/05/2016 Overview (08/19/2024): Last Assessment & Plan: Continue with the use of Trelegy. The severity of asthma does not correlate with her symptoms. She is doing excellent with the Trelegy as well we will continue it. Diabetes mellitus with neuro logical manifestation ([facility] V24, [facility] V28) 12/19/2014 Pulmonary nodules/lesions, multiple 10/17/2014 Overview (08/19/2024): Last Assessment & Plan: Patient has history of calcified granulomas which has been stable for many years. Aneurysm of middle cerebral artery 07/07/2014 Overview (08/19/2024): 4mm on the R MCA bifucation. Patient was follow in [place] and no intervention was recommended Urinary incontinence 11/18/2013 Diabetic neuropathy ([facility] V24, [facility] V28) 0 02/03/2013 Overview (08/19/2024): Noted on [...] Encounters Date Type Department Care Team Description 07/08/2025 Telephone Adult Medicine [address] [phone] Ashwin Arzola MD 07/06/2025 Telephone Adult Medicine [address] [phone] Antonio Elias LPN 07/06/2025 Telephone Adult Medicine [address] [phone] Ashwin Arzola MD 07/04/2025 Telephone Orthopedic Surgery [facility] [address] [phone] Domitila Carl 07/01/2025 Telephone Orthopedic Surgery [facility] [address] [phone] Michele May MD 06/30/2025 11:30 AM EDT Office Visit Adult [address] [phone] Ashwin Arzola MD Uncontrolled type 2 diabetes mellitus with hyperglycemia ([facility]24, [facility] V28) (Primary Dx); Need for prophylactic vaccination and inoculation against influenza; High cholesterol; Encounter for long-term (current) use of medications; Primary hypertension 06/27/2025 Telephone Pulmonology [facility] [address] [phone] Cami Dupont NP 06/20/2025 11:15 AM EDT Office Visit Orthopedic Surgery [facility] [address] [phone] Michele May MD Right rotator cuff tendinitis (Primary Dx); Right tennis elbow; Numbness and tingling in left hand 06/16/2025 Telephone Pulmonology [facility] [address] [phone] Cami Dupont NP 06/14/2025 9:45 AM EDT [facility] [address] [phone] Cami Dupont NP Moderate persistent asthma without complication (Primary Dx); Stage 1 mild COPD by GOLD classification ([facility] V24, [facility] V28); Pulmonary nodules/lesions, multiple; JOSÉ (obstructive sleep apnea); Obesity (BMI 30.0-34.9) 06/09/2025 Telephone Adult [address] [phone] Antonio Elias LPN 06/08/2025 11:15 AM EDT Office Visit [address] [phone] Eddie Stapleton MD Cellulitis of other specified site (Primary Dx); Folliculitis; Type 2 diabetes mellitus with hyperglycemia, with long-term current use of insulin ([facility] V24, [facility] V28) 06/06/2025 Telephone Adult Medicine [address] [phone] Antonio Elias LPN 05/24/2025 10:45 AM EDT Office Visit Orthopedic Surgery [facility] [address] [phone] Linus Luna, DPM Primary osteoarthritis of both feet (Primary Dx); Diabetic mononeuropathy simplex ([facility] V24, [facility] V28); Tinea pedis of both feet; Corns and callosities; Type II diabetes mellitus with peripheral circulatory disorder ([facility] V24, [facility] V28); Metatarsalgia of both feet; Pain in toe of right foot; Dermatophytosis of nail; Pain in toe of left foot 04/29/2025 9:30 AM EDT Ancillary Procedure [facility] [address] [phone] 04/25/2025 1:45 PM EDT Office Visit Orthopedic Surgery [facility] [address] [phone] Michele May MD Numbness and tingling in left hand (Primary Dx); Right shoulder pain; Right elbow pain; Right tennis elbow; Right rotator cuff tendinitis from Last 3 Months Immunizations Name Administration [...] Surgical History Surgery Date Site/Laterality Comments HYSTERECTOMY 2004 PROCEDURE: HISTORICAL HYSTERECTOMY; COMMENT: vaginal, ovaries in place CHOLECYSTECTOMY PROCEDURE: HISTORICAL CHOLECYSTECTOMY COLONOSCOPY 05/19/2017 PROCEDURE: HISTORICAL COLONOSCOPY; COMMENT: diverticulosis, int hemorrhoids; repeat in 5 yrs under propofol UPPER GASTROINTESTINAL ENDOSCOPY 10/29/2016 PROCEDURE: [place] UPPER GI ENDOSCOPY PERFORMED; COMMENT: gastritis; biopsies not taken COLONOSCOPY 03/31/2012 PROCEDURE: HISTORICAL COLONOSCOPY; COMMENT: [facility]; Four adenomas UPPER GASTROINTESTINAL ENDOSCOPY 09/02/2019 PROCEDURE: UPPER GI ENDOSCOPY/EXAM; COMMENT: gastritis, biopsy pending CATARACT EXTRACTION Right PROCEDURE: HISTORICAL CATARACT REMOVAL Medical History Medical History Date Comments Asthma DX:Asthma Seronegative rheumatoid arth ritis ([facility] V24, [facility] V28) DX:Seronegative rheumatoid arthritis (HCC) Lumbar spondylosis DX:Lumbar spo ndylosis; COMMENT: L3-S1 CTS (carpal tunnel syndrome) DX: CTS (carpal tunnel syndrome); COMMENT: s/p bilat surgery Plantar fasciitis DX:Plantar fas ciitis; COMMENT: Left Medial epicondylitis DX:Medial e picondylitis Pulmonary nodules DX:Pulmonary n odules; COMMENT: calcified Diabetes mellitus ([facility] V 24, [facility] V28) DX:Diabetes mellitus (HCC) Bipolar disorder ([facility] V2 4, [facility] V28) DX:Bipolar disorder (HCC) HTN (hypertension) DX:HTN (hyper tension) Bronchitis, not specified as acute or chronic DX:Bronchitis, not specified as acute or chronic Diabetes mellitus with neuro logical manifestation ([facility] V24, [facility] V28) 12/19/2014 DX:Diabetes mellitus with neurological manifestation ([facility]) Hemiparesis affecting left s anthony as late effect of stroke ([facility], [facility] V28) 05/15/2016 DX:Hemiparesis affecting lef t side as late effect of stroke ([facility]) Gastritis 11/22/2016 DX:Gastritis Migraine 01/16/2017 DX:Migraine Migraine without status migr ainosus, not intractable 01/16/2017 DX:Migraine without status migrainosus, not intractable 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 ([facility] V24, [facility] V28) 02/20/2017 DX:DM type 2 causin g neurological disease ([facility]) Helicobacter pylori infection DX :Helicobacter [...] AM EDT Office Visit Orthopedic Surgery - [place] 250 175 [facility] 250 [place] [phone] Linus Luna, DPM 175 [facility] 250 [place] [phone] 08/11/2025 10:35 AM EDT Office Visit Pulmonology - [place] 175 [facility] 200 [place] [phone] Cami Dupont, [place] [address] [place] [phone] 08/15/2025 10:40 AM EST Office Visit [facility] [address] 300 [facility] 102 [place] [phone] Hermelinda Marmolejo, [place] 300 [facility] [address] [place] [address] 01/23/2026 9:45 AM EDT Office Visit Adult Medicine [address] [phone] Ashwin Arzola MD [address] [place] [phone] Health Maintenance Due Date Last Done Comments [...] 03/29/2026 03/29/20, 03/29/2024, 03/12/2023, Additional history exists Diabetes: Annual [...] 04/25/2025 2:35 PM EDT Right shoulder pain [place] ARTHROCENTESIS/ASPIRA TION/INJECTION INTERMEDIATE JOINT/BURSA WO U/S GUID Routine 04/25/2025 1:45 PM EDT Right tennis elbow [place] ARTHROCENTESIS/ASPIRA TION/INJECTION MAJOR JOINT/BURSA W/O U/S GUIDANCE Routine 04/25/2025 1:45 PM EDT Right shoulder pain Right rotator cuff tendinitis DEPRESSION SCREENING Routine 08/11/2024 SCREENING MAMMOGRAPHY BI [...] LAB CHEMISTRY METHOD 07/04/2025 1:[address] [facility] Microalb, Ur 51.5(H) 0.0 - 29.0 mg/L LAB CHEMISTRY METHOD 07/04/2025 1:[address] [facility] Microalb/Crea t Ratio 23 <30 mg/g creat LAB CHEMISTRY METHOD 07/04/2025 1:[address] [facility] Urine Urine specimen obtained by clean catch procedure / Unknown Non-blood Collection / Unknown 07/04/2025 10:57 AM EDT 07/04/2025 10:57 AM EDT us Ashwin Arzola MD LAB URINE ORDERABLES Final Resu lt Performing Organization Address City/[facility]/ZIP Co de Phone Number [facility] [address] [place] [address], [place] [phone] * Lipid panel with reflex to direct LDL (06/30/2025 12:30 PM EDT) Cholesterol 156 0 - 200 mg/dL LAB CHEMISTRY METHOD 06/30/2025 5:[address] [facility] Triglycerides 99 0 - 150 mg/dL LAB CHEMISTRY METHOD 06/30/2025 5:[address] [facility] HDL 80 >=40 mg/dL LAB CHEMISTRY METHOD 06/30/2025 5:[address] [facility] LDL Calculated 56 0 - 100 mg/dL LAB CHEMISTRY METHOD 06/30/2025 5:[address] [facility] Comment:Estimated LDL Calcul ated using equation: Total cholesterol - HDL cholesterol - (Triglycerides/5) VLDL Cholesterol Jacoby 19.8 mg/dL LAB CHEMISTRY METHOD 06/30/2025 5:[address] [facility] Non HDL Chol. (LDL+VLDL) 76 <145 mg/dL LAB CHEMISTRY METHOD 06/30/2025 5:[address] [facility] Chol/HDL Ratio 2.0 0.0 - 4.4 LAB CHEMISTRY METHOD 06/30/2025 5:[address] [facility] Blood Venous blood specimen / Unknown Venipuncture / Unknown 06/30/2025 12:30 PM EDT 06/30/2025 12:30 PM EDT us Ashwin Arzola MD LAB BLOOD ORDERABLES Final Resu lt [facility] [address] [place] [address], [place] [phone] * (ABNORMAL) Hemoglobin A1c (06/30/2025 12:30 PM EDT) Pathologist [facility] Hemoglobin A1C 9.1(H) <6.5 % LAB CHEMISTRY METHOD 06/30/2025 10:[address] [facility] Mean Bld Glu Estim. 214 mg/dL LAB CHEMISTRY METHOD 06/30/2025 10:[address] [facility] Blood Venous blood specimen / Unknown Venipuncture / Unknown 06/30/2025 12:30 PM EDT 06/30/2025 12:30 PM EDT us Ashwin Arzola MD LAB BLOOD ORDERABLES Final Resu lt Performing Organization Address [facility]/State/ZIP Co de Phone Number [facility] [address] [place] [address], [place] [phone] * (ABNORMAL) Comprehensive metabolic panel (06/30/2025 12:30 PM EDT) [facility] Sodium 140 133 - 145 mmol/L LAB CHEMISTRY METHOD 06/30/2025 5:[address] [facility] Potassium 3.7 3.5 - 5.5 mmol/L LAB CHEMISTRY METHOD 06/30/2025 5:[address] [facility] Chloride 103 96 - 110 mmol/L LAB CHEMISTRY METHOD 06/30/2025 5:[address] [facility] CO2 33(H) 21 - 32 mmol/L LAB CHEMISTRY METHOD 06/30/2025 5:[address] [facility] Anion Gap 4 3 - 11 LAB CHEMISTRY METHOD 06/30/2025 5:[address] [facility] Glucose 110(H) 70 - 100 mg/dL LAB CHEMISTRY METHOD 06/30/2025 5:[address] [facility] BUN 14 5 - 25 mg/dL LAB CHEMISTRY METHOD 06/30/2025 5:18 PM [facility] Creatinine 0.60 0.50 - 1.10 mg/dL LAB CHEMISTRY METHOD 06/30/2025 5:18 PM [facility] eGFR 96 >=60 mL/min/1. 73m2 LAB CHEMISTRY METHOD 06/30/2025 5:18 PM [facility] Comment:Calculation based on the Chronic Kidney Disease Epidemiology Collaboration (CKD-EPI) equation refit without adjustment for race. BUN/Creatinine Ratio 23.3 LAB CHEMISTRY METHOD 06/30/2025 5:18 PM [facility] Calcium 9.5 8.5 - 10.5 mg/dL LAB CHEMISTRY METHOD 06/30/2025 5:18 PM [facility] AST (SGOT) 17 10 - 42 unit/L LAB CHEMISTRY METHOD 06/30/2025 5:18 PM [facility] ALT (SGPT) 27 10 - 60 unit/L LAB CHEMISTRY METHOD 06/30/2025 5:18 PM [facility] Alkaline Phosphatase 77 42 - 121 unit/L LAB CHEMISTRY METHOD 06/30/2025 5:18 PM [facility] Total Protein 6.8 6.0 - 8.0 g/dL LAB CHEMISTRY METHOD 06/30/2025 5:18 PM [facility] Albumin 3.6 3.2 - 5.0 g/dL LAB CHEMISTRY METHOD 06/30/2025 5:18 PM [facility] Total Bilirubin 0.3 0.0 - 1.4 mg/dL LAB CHEMISTRY METHOD 06/30/2025 5:18 PM [facility] Blood Venous blood specimen / Unknown Venipuncture / Unknown 06/30/2025 12:30 PM EDT 06/30/2025 12:30 PM EDT us Ashwin Arzola MD LAB BLOOD ORDERABLES Final Resu lt SEAN LOVELACE MD ([facility]) [facility] [address] [place] [address], [place] [phone] * NM LEXISCAN STRESS TEST W/ MYOCARDIAL [...] is no evidence of inducible ischemia. Ashwin Arozla MD CV STRESS PROCEDURES Final Resu lt [...] changes at the glenohumeral and acromioclavicular joint. Michele May MD IMG XR PROCEDURES Final Result * IL ARTHROCENTESIS/ASPIRATION/INJECTION INTERMEDIATE JOINT/BURSA WO U/S GUID (04/25/2025 [...] yes Michele May MD IN CLINIC/BEDSIDE ORDERABLES Fin al Result * IL ARTHROCENTESIS/ASPIRATION/INJECTION MAJOR JOINT/BURSA W/O U/S GUIDANCE (04/25/2025 [...] yes Michele May MD IN CLINIC/BEDSIDE ORDERABLES Fin al Result * Depression Screening (08/11/2024) Depression Screening abstracted [...] bone mineral density by WHO criteria. [facility] Department of Internal Medicine recommends [...] bone mineral density by WHO criteria. The [facility] Department of Internal Medicine recommendsusing National [...] DXA PROCEDURES Final Result * Colonoscopy (05/19/2017) [facility] Colonoscopy abstracted, no interpretation Anatomical Region Laterality Modality Other Historical Provider HEALTH MAINTENANCE Final Result * Hepatitis C Screening (05/04/2014) [facility] Hepatitis C Screening abstracted Historical Provider HEALTH MAINTENANCE Final Result from Last 3 Months or Most Recently [place]vant [place] [address] [facility] Member Subscriber Plan / Payer (Ef fective 2024-Present) Name:MELYSSA KEATING Relation to Subscriber:Self Name:Melyssa Keating Payer ID:[id number] Group ID:[id number] Type:Not on file Address: [address] [place] [address] Care Teams Senior Instrumentation Engineer Relationship Specialty Start Date End Date Ashwin Arzola MD [address] [place] [phone] PCP - General Internal Medicine 08/01/20
--- OUTSIDE RECORDS SUMMARY | 2025-07-08 15:35 | XMS_ITS ---
Author Name Marty GEORGESBeatriz Address [address] [place] [address] Phone [phone] [facility] Care Team Providers Care Early Childhood Educator Aide Name Role Phone Beatriz Ferguson Unavailable [phone] [facility] Unavailable Shaina Olivares Unavailable Unavailable Ashwin Arzola Unavailable [phone] [facility] Unavailab [phone] Unavailable Unavailable Unavailable Reason for Referral Not [...] 2021-12-26 2023-01-02 Vitamin D (Ergocalciferol) 1.25 mg (74599 UT) Cap TAKE 1 CAPSULE BY MOUTH 1 TIME A WEEK 2021-11-16 2023-01-02 OneTouch Delica Plus Oiofkk91I Miscellaneous USE DIRECTED TWICE DAILY 2021-11-30 No [...] DAY AT BEDTIME 2022-05-01 No Data Available Skmsddbadi-UWFP-Gmvbgtsq 50/325/40 mg Tab TAKE 1 TABLET BY MOUTH EVERY 6 HOURS NEEDED 2022-05-01 No Data Available B-D PEN NDL SHRT 84YT2BM(02/25) CARMEN USE DIRECTED THREE TIMES DAILY 2021-08-21 No Data Available Diclofenac Sodium 1 % Gel APPLY 4 GRAMS TOPICALLY TO THE AFFECTED AREA TWICE DAILY 2022-05-29 No Data Available Furosemide 40 mg Tab TAKE 1 TABLET BY [facility] DAILY 2022-07-25 2023-01-02 Mapap Arthritis Pain [...] 20 mg Tab TAKE 1 TABLET BY [facility] AT BEDTIME 2023-06-23 No Data Available Ondansetron 4 mg Tab TAKE 1 TABLET BY [facility] EVERY 8 HOURS NEEDED FOR NAUSEA 2023-06-23 No Data Available Loratadine 10 mg Tab TAKE 1 TABLET BY [facility] EVERY DAY 2023-07-03 No Data Available Cetirizine 10 mg Tab TAKE 1 TABLET BY [facility] AT BEDTIME 2023-07-05 No Data Available Nystatin 218413 UNIT/GM Powder APPLY TOPICALLY FOUR TIMES DAILY [...] 50 mg Tab TAKE 1 TABLET BY [facility] EVERY 8 HOURS NEEDED 2023-07-30 No [...] WITH MEALS 2023-11-07 No Data Available UNIFINE 29WT5RX PEN NEEDLES USE DIREC CODY THREE TIMES DAILY 2023-11-07 2023-11-26 Azithromycin 250 mg Tab TAKE 2 TABLETS B Y MOUTH FOR 1 DAY THEN TAKE 1 TABLET BY MOUTH DAILY FOR 4 DAYS 2023-11-11 No Data Available Cefuroxime Axetil 250 mg Tab TAKE 1 TABL ET BY MOUTH TWICE DAILY 2023-11-19 No Data Available Nystatin 540597 UNIT/GM Powder apply to affected area daily, [...] with voiding x months will f/u with OLDER ADULT SOCIAL WORK SPECIALIST 09/16/2023 Office Visit Obstetrics & Gynecology Clare Simon MD Hemiplegia and hemiparesis following cerebral infarction affecting left non-dominant side Active 2022-08 N/A CVA 2008Does not have PHOTOGRAPHIC DEVELOPER AND PRINTER 11/24/23Ambulates with a cane/walkerat risk for fallsFall prevention TIPS: Wear sensible shoes. Remove home hazards (Get rid of all rugs/mats in your home). Light up your living space (keep a flash light next to your bed for night time). Use assistive devices.ambulates with walker Chronic obstructive pulmonar y disease, unspecified Active 2022-08 N/A On Anoro ElliptaSpirivaProAiron 3L 02 PRNFollows Brick Molder HandCONTINGEN CY PLANMember to call for the following [...] Quetiapinewith h/o delusions Follows Psychiatristfollowed by psychiatry [phone] (Neeta) ( member reports she does home [...] atorvastatin 80 mg. Other problems related to [facility] facilities and other health care [...] Pain Documented on a Pain Scale (1125F) [facility] [place] Pain Assessment - Pain Documented on a Pain Scale (1125F) [facility] [place] Pain Assessment - Pain Documented on a Pain Scale (1125F) [facility] [place] Pain Assessment - Pain Documented on a Pain Scale (1125F) [facility] [place] Pain Assessment - Pain Documented on a Pain Scale (1125F) [facility] [place] Pain Assessment - Pain Documented on a Pain Scale (1125F) [facility] [place] Pain Assessment - Pain Documented on a Pain Scale (1125F) [facility] [place] Pain Assessment - Pain Documented on a Pain Scale (1125F) [facility] [place] Type 2 diabetes [...] 95 for video, modifier 93 for phone [facility] [place] Hypertensive heart disease [...] 1111F, BP, A1c or other CPTII codes [facility] [place] Encounter for other specifie d aftercare RN, CN or CP time with patient by phone; use with 1111F, BP, A1c or other CPTII codes [facility] [place] No Data Available [facility] [place] Chronic obstructive pulmonar y disease with (acute) exacerbation No Data Available [facility] [place] Estab. patient 30-39min; chronic exacerbation, 2 stable chronic or 1 acute illness add add modifier 95 for video, (do not use for phone, instead use 00438-17) [facility] [place] Type 2 diabetes mellitus wit h [...] (do not use for phone, instead use 51950-14) [facility] [place] Estab. patient 30-39min; chronic exacerbation, 2 stable chronic or 1 acute illness add add modifier 95 for video, (do not use for phone, instead use 27041-62) [facility] ([place] 01/[place]/20[place] Estab. patient 30-39min; chronic exacerbation, 2 stable chronic or 1 acute illness add add modifier 95 for video, (do not use for phone, instead use 42849-93) [facility] [place] Estab. patient 30-39min; chronic exacerbation, 2 stable chronic or 1 acute illness add add modifier 95 for video, (do not use for phone, instead use 46781-52) [facility] [place] Estab. patient 30-39min; chronic exacerbation, 2 stable chronic or 1 acute illness add add modifier 95 for video, (do not use for phone, instead use 73804-76) [facility] [place] Estab. patient 30-39min; chronic exacerbation, 2 stable chronic or 1 acute illness add add modifier 95 for video, (do not use for phone, instead use 15275-94) [facility] [place] Estab. patient 30-39min; chronic exacerbation, 2 stable chronic or 1 acute illness add add modifier 95 for video, (do not use for phone, instead use 36235-07) [facility] [place] Estab. patient 30-39min; chronic exacerbation, 2 stable chronic or 1 acute illness add add modifier 95 for video, (do not use for phone, instead use 26237-35) [facility] [place] RN, CN or CP time with patient by phone; use with 1111F, BP, A1c or other CPTII codes [facility] [place] 01/02/2023 Encounter for other specifie d aftercare RN, CN or CP time with patient by phone; use with 1111F, BP, A1c or other CPTII codes [facility] [place]20[place] No Data Available [facility] [place] Other chest pain No Data Available [facility] [place] 04[place]2023 Chronic obstructive pulmonar y disease, unspecifiedChronic respiratory failure, unsp w hypoxia or hypercapniaSchizophrenia, unspecified No Data Available [facility] [place] 04[place]2023 No Data Available [facility] [place] 04/02[place]2023 No Data Available [facility] [place] 04/02/2023 No Data Available [facility] [place] 04/02[place]2023 No Data Available [facility] [place] 04/[place]2023 No Data Available [facility] [place]20[place] Type 2 diabetes mellitus [...] status migrainosusAtherosclerosis of aorta No Data Available [facility] [place]2023 No Data Available [facility] [place]2023 No Data Available [facility] [place] 09/[place]/2023 No Data Available [facility] [place]2023 No Data Available [facility] [place]2023 No Data Available [facility] [place]2023 Type 2 diabetes [...] and other health care No Data Available [facility] [place]20[place] No Data Available [facility] [place] No Data Available [facility] [place] No Data Available [facility] [place] No Data Available [facility] [place] RN, CN or CP time with patient by phone; use with 1111F, BP, A1c or other CPTII codes [facility] ([place]) 11/20/2023 Encounter for other specifie d aftercare RN, CN or CP time with patient by phone; use with 1111F, BP, A1c or other CPTII codes [facility] ([place] 11/20/2023 Vital Signs Date of Collection Vitals [...] Time Current Smoking Status Former smoker 2025-06-14 5 Sex Female History of Procedures Procedures Service [...] (do not use for phone, instead use 42266-51) 50691 2022-09-10 No Data Available No Data Availa ble Estab. patient 20-29min; 1 stable chronic or 2 minor; add add modifier 95 for video, modifier 93 for phone 25182 2022-10-03 No Data Available No Data Availa ble RN, CN or CP time with patient by phone; use with 1111F, BP, A1c or other CPTII codes 77895 2022-11-28 No Data Available No Data Avai lable Medications prescribed in hospital were reviewed and reconciled against what they were taking prior to admission during today's visit. (1111F) 1111F 2022-11-28 No Data Available No Data Availa ble No Data Available [id number] 2022-12-03 No Data Available No Data Available Medications prescribed in hospital were reviewed and reconciled against what they were taking prior to admission during today's visit. (1111F) 1111F 2022-12-03 No Data Available No Data Availa ble Estab. patient 30-39min; chronic exacerbation, 2 stable chronic or 1 acute illness add add modifier 95 for video, (do not use for phone, instead use 95650-50) 29233 2023-01-09 No Data Available No Data Availa [...] 1111F, BP, A1c or other CPTII codes 13441 2023-01-02 No Data Available No Data Avai lable Medications prescribed in hospital were reviewed and reconciled against what they were taking prior to admission during today's visit. (1111F) 1111F 2023-01-02 No Data Available No Data Availa ble No Data Available 48411 2023-03-28 No Data Available No Data Available No Data Available 54512 2023-04-02 No Data Available No Data Available [...] No Data Avail able No Data Available 13512 2023-09-08 No Data Available No Data Available [...] No Data Availa ble No Data Available [id number] 2023-11-24 No Data Available No Data Available [...] 1111F, BP, A1c or other CPTII codes 40612 2023-11-20 No Data Available No Data Patricia [...] Falls in last 6 Months: No 2022-09-10 PHOTOGRAPHIC DEVELOPER AND PRINTER only there for 9 hours 2023-11-24 Mental [...] E ducation to avoid future hospitalization: Call [facility] if symptoms of illness develop. COPD [...] or disease education needs that may arise.On LjhaeiNapbxpusjnX8t- 7.5Encouraged regular exerciseLimit unhealthy foods and eat healthy mealsAvoid sugar-sweetened beverages. White bread, rice, pasta.Follows EndocrinologistDiscussed recommended a1c level- <7%CVA s a PCAAmbulates with a cane/walkerOn Anoro ElliptaSpirivaProAiron 3L 02 PRNFollows PulmonologistOn 3l 02Follows PulmonologistOn QuetiapineAripiprazoleDuloxetineFollows PsychiatristOn AmbienUses Ztlido patchOn Vitamin DOn FurosemideMetoprololWill monitor edema and weight, follows cardiologyOn AripiprazoleStableFollows PsychiatrKindred HealthcareOlhlxpAvryuupeseY7z- 7.1Follows OphthalmologistOn OmeprazoleAvoid spicy, fatty or fried food, caffeine, chocolateAvoid lying down after mealsAvoid eating late at nightWears Pull-ups 2022-10-03 11:44:44 Televideo 20-29min; 1 stable chronic or 2 minor; add modifier 95Continue to see PCP. Follow-up with [facility] as needed for any acute or disease education needs that may arise 05/05.On QzfugsZhvnxwyedfW6q- 7.1Encouraged regular exerciseLimit unhealthy foods and eat healthy mealsAvoid sugar-sweetened beverages. White bread, rice, pasta.Follows EndocrinologistDiscussed recommended a1c level- <7%CVA s a PCAAmbulates with a cane/walkerOn Anoro ElliptaSpirivaProAiron 3L 02 PRNFollows PulmonologistOn 3l 02Follows PulmonologistOn QuetiapineAripiprazoleDuloxetineFollows PsychiatristOn AmbienUses Ztlido patchOn Vitamin DOn FurosemideMetoprololWill monitor edema and weight, follows cardiologyOn AripiprazoleStableFollows PsychiatristOn LqwlozHcfjzqhrlnJ7d- 7.5Follows OphthalmologistOn OmeprazoleAvoid spicy, fatty or fried [...] or disease education needs that may arise.On RbevzgZyeqtxxddyC5m- 7.1Encouraged regular exerciseLimit unhealthy foods and eat [...] Psychiatrist01/09/23: Continue current treatment plan as directed.On MkhrlpXphfdlzzhmR9a- 7.5Follows OphthalmologistOn OmeprazoleAvoid spicy, fatty or fried [...] modifier 95)Continue to see PCP. Follow-up with [facility] as needed for any acute or [...] obtained (3008F)Continue to see PCP. [facility] for any acute or [...] modifier 95)Continue to see PCP. Follow-up with [facility] as needed for any acute or disease education needs that may arise 05/05.On UryouwLgagxtidvwW6r- 7.1Encouraged regular exerciseLimit unhealthy foods and eat [...] and fall precautions. Follow up as indicated.On RjhsvjKkzsuleqbdB4k- 7.5Follows OphthalmologistOn OmeprazoleAvoid spicy, fatty or fried food, caffeine, chocolateAvoid lying down after mealsAvoid eating late at night01/09/23: Continue current treatment plan as directed.has f/u visit 11/03/2023 Office Visit Gastroenterology Alber Benites PA-SHAKILAears Pull-ups+burning with voiding x months will f/u with OLDER ADULT SOCIAL WORK SPECIALIST 09/16/2023 Office Visit Obstetrics & Gynecology Clare [...] 8.4 202GFR 80 3CVA 2008Does not have PHOTOGRAPHIC DEVELOPER AND PRINTER 11/24/23Ambulates with a cane/walkerat risk for fallsFall prevention TIPS: Wear sensible shoes. Remove home hazards (Get rid of all rugs/mats in your home). Light up your living space (keep a flash light next to your bed for night time). Use assistive devices.ambulates with walkerOn Anoro ElliptaSpirivaProAiron 3L 02 Sole Brick Molder HandCONTINGENCY PLANMember to call for the following symptoms: [...] agitationPlanned intervention: Contact mental health professional: psychiatry [phone] (Neeta)On quetiapinewith h/o delusions Follows Psychiatristfollowed by psychiatry [phone] (Neeta) ( member reports she does home [...] pneumoniae---sensitive to ceftriaxone) all uit symptoms resolved.On YsogsbHjfpsffqwbC2o- 7.0 11/19/23Follows OphthalmologistOn OmeprazoleAvoid spicy, fatty or fried food, caffeine, chocolateAvoid lying down after mealsAvoid eating late at night01/09/23: Continue current treatment plan as directed.has f/u visit 11/03/2023 Office Visit Gastroenterology Alber Benites PA-Zulma Pull-ups+burning with voiding x months will f/u with OLDER ADULT SOCIAL WORK SPECIALIST 09/16/2023 Office Visit Obstetrics & Gynecology Clare [...] increased [facility]. 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 RN brought medications today. member unable to give me RN name or contact info. 2023-11-24 2 hours per day--no PHOTOGRAPHIC DEVELOPER AND PRINTER (does not have a PHOTOGRAPHIC DEVELOPER AND PRINTER) . email sent to [facility] cc re need for PHOTOGRAPHIC DEVELOPER AND PRINTER 2023-11-24 followed by tracie bonilla [phone] (Neeta) ( member reports she does home visits) 2023-11-24 unable to complete medication reconciliation; RN not available and member does not administer medications her self. 2023-11-24 medication list u pdated after review of Hosp records/medication list
--- OUTSIDE RECORDS SUMMARY | 2025-07-08 15:35 | XMS_ITS | Clinical Summary ---
Author Organization [facility] Address [address] [facility] [facility] [address] [place] [phone] Phone Care Team Providers Care Branch Chief Name Role Phone Unavailable Primary Care Provider [...] file Medical Devices Not on file [facility] MEDICARE REPLACEMENT MEDICARE REPLACEMENT [facility]ACEMENT [facility] MEDICARE REPLACEMENT [facility] MEDICARE REPLACEMENT Additional Source Comments The information contained in this document represents components of the legal health record. It is not the complete legal health record.[facility]
--- OUTSIDE RECORDS SUMMARY | 2025-07-08 15:35 | XMS_ITS | Encounter Summary ---
Author Organization [facility] Address [address] [place] [address] Care Team Providers Care Clinical Director Name Role Phone Ashwin Arzola MD Primary Care Provider Encounter Details Date Type Department Care Team ([facility] st Contact Info) Description 07/01/2025 Telephone Orthopedic Surgery - [place] [address] [phone] Michele May MD [address] [place] [address] Social History Tobacco Use Types Packs/Day Years [...] Outreach made to Home Health AideInderjit, at [phone] Message left RE options to obtain this EMG order: Available through patient Connecthart Our office can mail order to home address Our office can fax the EMG order, fax number will need to be provided Patient and/or research home economist can stop at the office to continuous pickling line pickler helper up a print out Awaiting a call back from [employer], RE plan. * Jaya Crorea - 07/01/2025 11:44 AM EDT Pt would like to do the hand test at [facility], If we can switch order. Pls call Home Health AideInderjit, at [phone] documented in this encounter Plan of Treatment Upcoming Encounters Date Type Department Care Team (Late st Contact Info) Description 07/26/2025 10:30 AM EDT Office Visit Orthopedic Surgery - [place] [address] [facility] [address] [place] [phone] Linus Luna, DPM 175 [facility] 250 [place] [phone] 08/11/2025 10:35 AM EDT Office Visit Pulmonology - [place] 175 [facility] 200 [place] [address] Cami Dupont, GEORGES [address] [place] [phone] 08/15/2025 10:40 AM EST Office Visit [facility] - [facility] 102 300 [facility] 102 [place] [phone] Hermelinda Marmolejo, GEORGES 300 [facility] 154 [place] [address] 01/23/2026 9:45 AM EDT Office Visit Adult Medicine [address] [phone] Ashwin Arzola MD [address] [place] [phone] documented as of this encounter Visit Diagnoses Not on filedocumented in this encounter Care Teams Clinical Director Relationship Specialty Start Date End Date Ashwin Arzola MD [address] [place] [address] PCP - General Internal Medicine 08/01/20 documented as of this encounter
--- OUTSIDE RECORDS SUMMARY | 2025-07-08 15:35 | XMS_ITS | Encounter Summary ---
Author Organization [facility] Address [address] [place] [address] Care Team Providers Care Barman Name Role Phone Ashwin Arzola MD Primary Care Provider Encounter Details Date Type Department Care Team (Late st Contact Info) Description 07/06/2025 Telephone Adult Medicine [address] [phone] Ashwin Arzola MD [address] [place] [address] Social History Tobacco Use Types Packs/Day Years [...] AM EDT Office Visit Orthopedic Surgery - [place] 250 175 [facility] 250 [place] [address] Linus Luna, DPM 175 [facility] 250 [place] [address] 08/11/2025 10:35 AM EDT Office Visit Pulmonology - [place] 175 [facility] 200 [place] [address] Cami Dupont, MOTION STUDY ANALYST [address] [place] [address] 08/15/2025 10:40 AM EST Office Visit [facility] - [facility] 102 300 [facility] 102 [place] [phone] Hermelinda Marmolejo, GEORGES 300 [facility] [address] [place] [address] 01/23/2026 9:45 AM EDT Office Visit Adult Medicine [address] [phone] Ashwin Arzola MD [address] [place] [address] documented as of this encounter Visit Diagnoses Not on filedocumented in this encounter Care Teams Barman Relationship Specialty Start Date End Date Ashwin Arzola MD [address] [place] [address] PCP - General Internal Medicine 08/01/20 documented as of this encounter
[2025-07-08 15:58] LABS: Glucose, Whole Blood 80 mg/dL (60-115)
--- NOTE | 2025-07-08 16:06 | ED.GENADULT ---
HPI - General Adult General Chief complaint: General Medical Stated complaint: HYPOGLYCEMIA Time Seen by Provider: 07/08/25 16:03 Source: patient, RN notes reviewed and deaf interpreter (Flaca) Mode of arrival: EMS Limitations: language barrier History of Present Illness HPI narrative: 70-year-old female who has a history of diabetes, asthma, depression, anxiety, dysphagia, constipation, presents for evaluation of hypoglycemia. Patient lives at home, has a [employer]. This morning, patient's glucoses noted to be 60. Later on she had a repeat which was 47. Patient was given oral glucose. Patient takes insulin. She apparently took her normal dose of 30 units of Lantus last night but did not eat any food at that time. This morning her glucose alarm had sounded. Currently the patient has no physical complaints. She has been eating food while in the emergency department. She denies any chest pain or shortness of breath. No fevers chills nausea or vomiting. She has otherwise been feeling well. No falls. She ambulates with a cane or a walker at home. Related Data Home Medications ?Medication ?Instructions ?Recorded ?Confirmed blood sugar diagnostic (OneTouch #10 ea 09/27/22 07/07/25 Ultra Test strips) lancets 33 gauge (OneTouch Delica #100 ea 09/27/22 07/07/25 Plus Lancet) docusate sodium 100 mg capsule 100 mg PO BID 11/16/23 07/07/25 sennosides 8.6 mg tablet (senna) 8.6 mg PO DAILY 11/16/23 07/07/25 amitriptyline 150 mg tablet 150 mg PO BEDTIME 04/11/24 07/07/25 gabapentin 300 mg capsule 300 mg PO TID 04/11/24 07/07/25 fluticasone fur. 100 mcg-umeclid 1 ea inhalation DAILY 10/26/24 07/07/25 62.5 mcg-vilant 25 mcg inhalat.powder (Trelegy Ellipta) clonazepam 0.5 mg tablet 0.5 mg PO TID PRN Pain 12/23/24 07/07/25 duloxetine 20 mg capsule,delayed 60 mg PO DAILY 12/23/24 07/07/25 release loratadine 10 mg tablet 10 mg PO DAILY 12/23/24 07/07/25 metformin 500 mg tablet,extended 500 mg PO DAILY 12/23/24 07/07/25 release 24 hr metoclopramide HCl 10 mg tablet 10 mg PO QID 12/23/24 07/07/25 metoprolol tartrate 25 mg tablet 25 mg PO DAILY 12/23/24 07/07/25 montelukast 10 mg tablet 10 mg PO BEDTIME 12/23/24 07/07/25 potassium chloride 20 mEq 20 meq PO DAILY 12/23/24 07/07/25 tablet,extended release(part/cryst) budesonide-formoterol HFA 160 inhalation 02/03/25 07/07/25 mcg-4.5 mcg/actuation aerosol inhaler ciclopirox 0.77 % topical gel 1 appl topical BID 02/03/25 07/07/25 famotidine 20 mg tablet 20 mg PO DAILY 02/03/25 07/07/25 magnesium oxide 400 mg PO DAILY 02/03/25 07/07/25 pantoprazole 40 mg tablet,delayed 40 mg PO DAILY 02/03/25 07/07/25 release albuterol sulfate 2.5 mg/3 mL mg continuous nebulization 04/25/25 07/07/25 (0.083 %) solution for nebulization albuterol sulfate 90 mcg/actuation 2 puff inhalation Q6H PRN wheezing 04/25/25 07/07/25 aerosol inhaler lisinopril 10 mg tablet 10 mg PO DAILY 04/25/25 07/07/25 nitroglycerin 0.4 mg sublingual 0.4 mg sublingual Q5M PRN 04/25/25 07/07/25 tablet omeprazole 20 mg tablet,delayed 40 mg PO BID 04/25/25 07/07/25 release tiotropium bromide 18 mcg capsule 1 cap inhalation DAILY 04/25/25 07/07/25 with inhalation device (Spiriva with HandiHaler) Previous Rx's ?Medication ?Instructions ?Recorded atorvastatin 80 mg tablet 80 mg PO BEDTIME #0 tabs 10/29/23 insulin glargine 100 unit/mL 10 unit (0.1 mL) subcut BEDTIME 12/25/24 subcutaneous solution (Lantus #10 mL U-100 Insulin) prednisone 20 mg tablet 40 mg (2 x 20 mg) PO DAILY #10 tabs 02/09/25 prednisone 20 mg tablet 40 mg (2 x 20 mg) PO DAILY 5 days 02/27/25 #10 tabs sennosides 8.6 mg-docusate sodium 2 tab-cap (2 x 8.6-50 mg) PO 03/22/25 50 mg tablet (Senna with Docusate BEDTIME 60 days #120 tabs Sodium) polyethylene glycol 3350 17 17 g PO BID 30 days #1,020 grams 06/27/25 gram/dose oral powder (Miralax) tramadol 50 mg tablet 50 mg PO Q8H PRN Pain #60 tabs 07/01/25 bisacodyl 5 mg tablet,delayed 10 mg (2 x 5 mg) PO ONCE colon 07/07/25 release (Dulcolax (bisacodyl)) prep 5 days #10 tabs polyethylene glycol 3350 17 17 g PO DAILY colon prep 1 day 07/07/25 gram/dose oral powder (Miralax) #238 grams Allergies Allergy/AdvReac Type Severity Reaction Status Date / Time Penicillins Allergy Mild Swelling Verified 07/08/25 13:53 Review of Systems Constitutional: Constitutional: Denies body ache(s) and Denies chills Gastrointestinal: Gastrointestinal: Denies abdominal pain Genitourinary: Genitourinary: Denies difficulty voiding PMFSH Past Medical History Medical History Rheumatoid arthritis Cervical spondylitis Depression Headache Dyslipidemia Hypertension Cerebral aneurysm, nonruptured Seizure disorder JOSÉ (obstructive sleep apnea) Delusions Major neurocognitive disorder Chest pain Dyspnea on exertion COVID-19 GERD (gastroesophageal reflux disease) DJD (degenerative joint disease) COPD (chronic obstructive pulmonary disease) Bipolar disorder CTS (carpal tunnel syndrome) Hx of rheumatoid arthritis Diabetic neuropathy Urinary incontinence Aneurysm of middle cerebral artery Pulmonary nodules CHF (congestive heart failure) Palpitations Migraine History of COVID-19 Mild aortic stenosis Asthma Insulin dependent type 2 diabetes mellitus Mixed hyperlipidemia Mood disorder Essential hypertension Surgical History History of esophagogastroduodenoscopy (EGD) No pertinent past surgical history Hx of cataract surgery H/O: hysterectomy Hx of cholecystectomy History of carpal tunnel release Family History Family History Mother Myocardial infarction Father Myocardial infarction Sister Breast cancer Brother Spleen cancer Social History Social History Household Members: None Housing: Apartment Do you presently have visiting nurse or other home services: Yes (feed manager) Alcohol intake: never Comment: report given by Cleo menendez Patient Tobacco Use Status: Never used Tobacco Tobacco use type: Cigarette Cigarette Packs Per Day: 0.2 Cigarettes Per Day: 4.0 Years Smoked: 0431-1578 Smoked in Last 30 Days: No e-Cigarette/Vaping Use: Never Used Second Hand Smoke Exposure: No Use of substances other than those prescribed or required for medical reasons: No Advance Directives: Yes Advance Directives on File: Yes Advance Directives Date on File: 11/20/23 Do you have a plan to hurt others: No Plan service: No Current occupational status: retired Sexual orientation: Straight/Heterosexual Physical Exam ED Vital Signs: Vital Signs - 24 hr 07/08/25 13:49 07/08/25 16:28 07/08/25 18:32 Temperature 98.3 F 98.0 F Pulse Rate 69 70 68 Respiratory Rate 16 15 16 Blood Pressure 118/50 L 163/58 H 131/52 L Pulse Oximetry 94 95 96 Oxygen Delivery Method Room Air Room Air Room Air BMI result Body Mass Index 31.2 Const General: cooperative and no acute distress HENMT Other: Speaks full clear sentences. Mucous membranes moist Resp Other: Lung sounds clear throughout Cardio Other: Regular rate GI Other: Abdomen is soft and nontender Extrem Other: No calf tenderness or pedal edema Course Course Course Narrative: Patient remained hemodynamically stable while in the emergency department. She was able to tolerate food. She was awake and alert had no physical complaints. Granddaughter has arrived to pick her up. They will continue to monitor glucose and adjust Lantus gradually. Medical Decision Making Medical Decision Making [facility] Narrative: 70-year-old female with a history of asthma, diabetes, depression, presents for evaluation of hypoglycemia. Patient with regular insulin use. Frequently goes without eating while taking her Lantus. Labs are unremarkable at this time. UA is pending. Differential Diagnosis Differential Diagnoses: The differential diagnosis associated with the presentation includes Hypoglycemia DKA Metabolic abnormality UTI Lab Data [facility] Lab Attestation statement: I reviewed the patient's lab results. 07/08/25 14:10 07/08/25 14:10 Labs: Lab Results 07/08/25 07/08/25 07/08/25 Range/Units 13:46 14:10 15:54 WBC 7.5 (4.8-10.8) X10*3/uL RBC 4.11 L (4.20-5.50) X10*6/uL Hgb 11.0 L (12.0-16.0) g/dl Hct 34.7 L (37.0-47.0) % MCV 84.4 (80.0-98.0) fL MCH 26.8 L (27.0-33.0) pg MCHC 31.7 (31.0-35.0) g/dl RDW 18.0 H (11.0-16.0) % Plt Count 192 (160-400) X10*3/uL MPV 10.4 (9.4-12.3) fL Immature Gran % (Auto) 0.3 (0.0-0.4) % Neut % (Auto) 68.5 (45-73) % Lymph % (Auto) 20.3 (20-40) % [place] % (Auto) 8.7 (2-11) % Eos % (Auto) 1.9 (0-4) % Baso % (Auto) 0.3 (0-2) % Lymph # (Auto) 1.5 (1.2-4.9) X10*3/uL [place] # (Auto) 0.7 (0.1-1.2) X10*3/uL Eos # (Auto) 0.1 (0.0-0.4) X10*3/uL Baso # (Auto) 0.0 (0.0-0.2) X10*3/uL Abs Immat Gran (auto) 0.02 (0.00-0.03) X10*3/uL Absolute Neuts (auto) 5.1 (2.0-8.3) x10*3/uL Absolute Nucleated RBC 0.000 (0.0-0.012) X10*3/uL Nucleated RBC % (auto) 0.0 (0.0-0.2) /100WBC Sodium 143 (135-145) mmol/L Potassium 3.7 (3.3-5.1) mmol/L Chloride 107 (96-108) mmol/L Carbon Dioxide 30 H (22-29) mmol/L Anion Gap 10 L (12-20) BUN 13 (9-16) mg/dL Creatinine 0.59 (0.5-1.4) mg/dL Estim Creat Clear Calc 94.2 Estimated GFR > 60 POC Glucose 115 80 (60-115) mg/dL Random Glucose 93 (60-115) mg/dL Calcium 9.0 (8.4-10.2) mg/dL Total Bilirubin 0.3 (0.0-1.0) mg/dL AST 20 (5-31) U/L ALT 14 (0-31) U/L Alkaline Phosphatase 60 (39-117) U/L Total Protein 6.6 (6.5-8.0) g/dL Albumin 3.6 (3.5-5.0) g/dL Urine Color Urine Appearance Urine pH (5.0-9.0) Ur Specific [place] (1.005-1.025) Urine Protein (Neg-Trace) mg/dL Urine Glucose (UA) (Negative) mg/dL Urine Ketones (Negative) mg/dL Urine Blood (Negative) Urine Nitrite (Negative) Ur Leukocyte Esterase (Negative) Urine RBC (0-2) /HPF Urine WBC (0-5) /HPF Ur Squamous Epith Cells (0-2) /HPF Urine Bacteria (None Seen) Hyaline Casts (0-2) /LPF 07/08/25 Range/Units 16:35 WBC (4.8-10.8) X10*3/uL RBC (4.20-5.50) X10*6/uL Hgb (12.0-16.0) g/dl Hct (37.0-47.0) % MCV (80.0-98.0) fL MCH (27.0-33.0) pg MCHC (31.0-35.0) g/dl RDW (11.0-16.0) % Plt Count (160-400) X10*3/uL MPV (9.4-12.3) fL Immature Gran % (Auto) (0.0-0.4) % Neut % (Auto) (45-73) % Lymph % (Auto) (20-40) % [place]han % (Auto) (2-11) % Eos % (Auto) (0-4) % Baso % (Auto) (0-2) % Lymph # (Auto) (1.2-4.9) X10*3/uL [place] # (Auto) (0.1-1.2) X10*3/uL Eos # (Auto) (0.0-0.4) X10*3/uL Baso # (Auto) (0.0-0.2) X10*3/uL Abs Immat Gran (auto) (0.00-0.03) X10*3/uL Absolute Neuts (auto) (2.0-8.3) x10*3/uL Absolute Nucleated RBC (0.0-0.012) X10*3/uL Nucleated RBC % (auto) (0.0-0.2) /100WBC Sodium (135-145) mmol/L Potassium (3.3-5.1) mmol/L Chloride (96-108) mmol/L Carbon Dioxide (22-29) mmol/L Anion Gap (12-20) BUN (9-16) mg/dL Creatinine (0.5-1.4) mg/dL Estim Creat Clear Calc Estimated GFR POC Glucose (60-115) mg/dL Random Glucose (60-115) mg/dL Calcium (8.4-10.2) mg/dL Total Bilirubin (0.0-1.0) mg/dL AST (5-31) U/L ALT (0-31) U/L Alkaline Phosphatase (39-117) U/L Total Protein (6.5-8.0) g/dL Albumin (3.5-5.0) g/dL Urine Color Yellow Urine Appearance Clear Urine pH 7.0 (5.0-9.0) Ur Specific [place] 1.010 (1.005-1.025) Urine Protein Negative (Neg-Trace) mg/dL Urine Glucose (UA) Negative (Negative) mg/dL Urine Ketones Negative (Negative) mg/dL Urine Blood Negative (Negative) Urine Nitrite Negative (Negative) Ur Leukocyte Esterase Trace H (Negative) Urine RBC 0-2 (0-2) /HPF Urine WBC 0-5 (0-5) /HPF Ur Squamous Epith Cells 0-2 (0-2) /HPF Urine Bacteria None Seen (None Seen) Hyaline Casts 0-2 (0-2) /LPF Discharge Plan Discharge Clinical Impression: Hypoglycemia Patient Disposition: Home, Self-Care Additional Instructions: Continue to closely monitor glucose levels. You will need to eat food if you continue to take your regular dose of Lantus at night. If you are not eating, consider only taking 20 units of Lantus instead of your normal 30 units. You will need to follow up with your regular doctor for further adjustments of your insulin. Follow-up with your primary care provider. Call this week to schedule a follow-up appointment. Return to the emergency department if you have any worsening of symptoms, or any concerns. Get well soon! Prescriptions: No Action albuterol sulfate 2.5 mg /3 mL (0.083 %) solution for nebulization continuous nebulization albuterol sulfate 90 mcg/actuation HFA aerosol inhaler 2 puff inhalation Q6H PRN (Reason: wheezing) lisinopril 10 mg tablet 10 mg PO DAILY nitroglycerin 0.4 mg tablet, sublingual 0.4 mg sublingual Q5M PRN Rx Instructions: do not exceed 3 doses per episode tiotropium bromide [Spiriva with HandiHaler] 18 mcg capsule, w/inhalation device 1 cap inhalation DAILY Rx Instructions: puncture 1 cap using device; one dose = 2 inhalations omeprazole 20 mg tablet,delayed release (DR/EC) 40 mg PO BID polyethylene glycol 3350 [Miralax] 17 gram/dose powder 17 g PO BID 30 Days Qty: 1020 0RF tramadol 50 mg tablet 50 mg PO Q8H PRN (Reason: Pain) Qty: 60 0RF Rx Instructions: 1x refill from covering provider bisacodyl [Dulcolax (bisacodyl)] 5 mg tablet,delayed release (DR/EC) 10 mg PO ONCE 5 Days Qty: 10 0RF Rx Instructions: Take 2 tablets at 12 pm starting 5 days before colonoscopy polyethylene glycol 3350 [Miralax] 17 gram/dose powder 17 g PO DAILY 1 Days Qty: 238 0RF Rx Instructions: Mix Miralax with 64 oz(8 cups) of Crystal light. Take 2 tablets of Dulcolax qt 12 pm. Wait to have your 1st bowel movement, then begin drinking Miralax. Drink a glass of Miralax every 10-15 minutes until you are finished. You will drink at least another 4 cups of clear liquid of your choice over the next 2 hours. Please drink as many clear liquids as possible You may have clear liquids up to four hours before your procedure atorvastatin 80 mg Tablet 80 mg PO BEDTIME Qty: 0 0RF sennosides [senna] 8.6 mg tablet 8.6 mg PO DAILY docusate sodium 100 mg capsule 100 mg PO BID Trelegy Ellipta 100-62.5-25 mcg blister with device 1 ea inhalation DAILY amitriptyline 150 mg tablet 150 mg PO BEDTIME Rx Instructions: with 50 mg gabapentin 300 mg capsule 300 mg PO TID metformin 500 mg tablet extended release 24 hr 500 mg PO DAILY clonazepam 0.5 mg tablet 0.5 mg PO TID PRN (Reason: Pain) potassium chloride 20 mEq tablet,ER particles/crystals 20 meq PO DAILY Rx Instructions: not on list/ patient unsure if taking or not montelukast 10 mg tablet 10 mg PO BEDTIME loratadine 10 mg tablet 10 mg PO DAILY metoclopramide HCl 10 mg tablet 10 mg PO QID metoprolol tartrate 25 mg tablet 25 mg PO DAILY duloxetine 20 mg capsule,delayed release(DR/EC) 60 mg PO DAILY insulin glargine [Lantus U-100 Insulin] 100 unit/mL solution 10 unit subcut BEDTIME Qty: 10 0RF budesonide-formoterol 160-4.5 mcg/actuation Hfa Aerosol Inhaler INHALATION ciclopirox 0.77 % Gel 1 appl TOPICAL BID famotidine 20 mg Tablet 20 mg PO DAILY pantoprazole 40 mg Tablet,Delayed Release (Dr/Ec) 40 mg PO DAILY magnesium oxide 400 mg magnesium Capsule 400 mg PO DAILY prednisone 20 mg tablet 40 mg PO DAILY Qty: 10 0RF prednisone 20 mg tablet 40 mg PO DAILY 5 Days Qty: 10 0RF (DME) lancets [OneTouch Delica Plus Lancet] 33 gauge misc See Rx Instructions .ROUTE BID Qty: 100 Rx Instructions: As directed (DME) OneTouch Ultra Test Strip See Rx Instructions .ROUTE BID Qty: 10 Rx Instructions: As directed sennosides-docusate sodium [Senna with Docusate Sodium] 8.6-50 mg tablet 2 tab-cap PO BEDTIME 60 Days Qty: 120 2RF Rx Instructions: Please take every day at bedtime Interventions: ED Discharge Assessment Last Done: 07/08/25 18:32 Discharge Date/Time: 07/08/25 18:33 Print Language: Albanian
[2025-07-08 16:28] VITALS: BP 163/58; PULSE 70; RESP 15; O2SAT 95
[2025-07-08 16:41] LABS: Appearance Urine Clear; Glucose Urine UA Negative (Negative); PH 7.0 (5.0-9.0); Specific Gravity - Urine 1.010 (1.005-1.025); UMIC TRIGGER UACC YES
--- NOTE | 2025-07-08 17:27 | PC.NURSE ---
pt discharge was reviewed with patient, she is awaiting the arrival of her grandauter to assist her home.
[2025-07-08 18:32] VITALS: BP 131/52; PULSE 68; RESP 16; TEMP 36.7; O2SAT 96
== END 2025-07-08 18:33 | disposition home or self-care (01) ==
PROVIDERS: Physician Assistant; Emergency Provider Emergency Medicine; PCP Internal Medicine
DX: E11.649 Type 2 diabetes mellitus with hypoglycemia without coma (principal); Z79.4 Long term (current) use of insulin; I10 Essential (primary) hypertension; J44.9 Chronic obstructive pulmonary disease, unspecified; Z79.899 Other long term (current) drug therapy
CPT/HCPCS: 36415; 80053; 81001; 82947; 85025; 99283; 99284

== ENCOUNTER 2025-07-13 10:28 | Outpatient (REF) | payer OTHER, SELFPAY ==
--- NOTE | 2025-07-13 10:36 | EMG_ITS ---
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 Has noted recently that the left hand is getting weaker. History of diabetes. Reason for referral: Evaluate for Carpal Tunnel Syndrome Referred by: Kiran PERALTA Procedure done: Left upper extremity NCS/EMG Precautions and/or limitations: None Lao speaking, seen with accreditation coordinator. The limb temperature was monitored continuously and remained between 32-36 degrees C during the performance of the NCS. Nerve Conduction Studies Anti Sensory Summary Table ?Stim Site NR Onset (ms) Norm Onset (ms) Peak (ms) Norm Peak (ms) O-P Amp (?V) Norm O-P Amp Site1 Site2 Delta-0 (ms) Dist (cm) Terence (m/s) Norm Terence (m/s) Left Median Anti Sensory (2nd Digit) Wrist ? 4.5 5.4 <3.6 7.4 >10 Wrist 2nd Digit 4.5 14.0 31 Left Radial Anti Sensory (Thumb) Forearm ? 2.0 2.5 <3.1 10.8 Forearm Thumb 2.0 0.0 Left Ulnar Anti Sensory (5th Digit) Wrist ? 2.3 3.2 <3.7 10.0 >15.0 Wrist 5th Digit 2.3 14.0 61 B Elbow ? 2.5 3.3 10.3 B Elbow Wrist 0.2 0.0 >47 Motor Summary Table ?Stim Site NR Onset (ms) Norm Onset (ms) O-P Amp (mV) Norm O-P Amp iAmp (mV) Amp (1st) (%) Site1 Site2 Delta-0 (ms) Dist (cm) Terence (m/s) Norm Terence (m/s) Left Median Motor (Abd Poll Brev) Wrist ? 5.9 <3.9 5.6 >4.5 7.0 100.0 Elbow Wrist 3.6 21.0 58 >45 Elbow ? 9.5 5.9 6.9 105.4 Left Ulnar Motor (Abd Dig Minimi) Wrist ? 3.0 <3.0 6.0 >5 7.6 100.0 B Elbow Wrist 3.9 18.0 46 >45 B Elbow ? 6.9 5.5 7.3 91.7 A Elbow B Elbow 2.0 10.0 50 >45 A Elbow ? 8.9 5.1 6.9 85.0 EMG ?Side Muscle Nerve Root Ins Act Fibs Psw Amp Dur Poly Recrt Int Pat Comment Left 1stDorInt Ulnar C8-T1 Nml Nml Nml Nml Nml 0 Nml Complete Left FlexCarRad Median C6-7 Nml Nml Nml Nml Nml 0 Nml Complete Left FlexCarpiUln Ulnar C8,T1 Nml Nml Nml Nml Nml 0 Nml Complete Left Biceps Musculocut C5-6 Nml Nml Nml Nml Nml 0 Nml Complete Left Triceps Radial C6-7-8 Nml Nml Nml Nml Nml 0 Nml Complete Left Deltoid Axillary C5-6 Nml Nml Nml Nml Nml 0 Nml Complete FINDINGS: Left median motor nerve showed prolonged distal latency, normal amplitude and normal conduction velocity. Left median sensory nerve showed prolonged peak latency. All other nerves tested were within normal. Concentric needle EMG was performed in selected muscles of the left upper extremity. Study did not reveal signs of electric abnormalities as shown in the table above. IMPRESSION: 1. This is an abnormal study. 2. There is electrodiagnostic evidence for left moderate-severe median neuropathy at the wrist, consistent with carpal tunnel syndrome. 3. There is no electrodiagnostic evidence for ulnar neuropathy, brachial plexopathy, or cervical radiculopathy. Thank you for your kind referral. Masha Aponte MD, SKIP Board Certified, [place] [employer] and [employer] (ABPMR) Board Certified, [place] [employer] Electrodiagnostic Medicine (ABEM) CODIN [id number] MTDD
--- OUTSIDE RECORDS SUMMARY | 2025-07-13 12:02 | XMS_ITS | Encounter Summary ---
Author Organization [facility] Address [address] [place] [address] Care Team Providers Care Checker Stocker Name Role Phone Ashwin Arzola MD Primary Care Provider Encounter Details Date Type Department Care Team (Late Contact Info) Description 06/09/2025 Telephone Adult Medicine [address] [phone] Antonio Elias LPN Social History Tobacco Use [...] Upcoming Encounters Date Type Department Care Team ([facility] Contact Info) Description 07/19/2025 8:30 AM EDT Office Visit Adult Medicine [address] [phone] Jenna Escobar, CLIENT TECHNICAL SUPPORT ASSOCIATE [address] [place], [place] 07/26/2025 10:30 AM EDT Office Visit Orthopedic Surgery - [place] [address] [phone] Linus Luna, DPM 175 [facility] 250 [place] [phone] 08/11/2025 10:35 AM EDT Office Visit Pulmonology - [place] 175 [facility] 200 [place] [phone] Cami Dupont, [place] [address] [place] [phone] 08/15/2025 10:40 AM EST Office Visit [facility] - [facility] [address] [facility] 102 [place] [phone] Hermelinda Marmolejo, GE[place]ES 300 [facility] [address] [place] [address] 01/23/2026 9:45 AM EDT Office Visit Adult Medicine [facility] [address] [place] [address] Ashwin Arzola MD [address] [place] [address] documented as of this encounter Visit Diagnoses Not on filedocumented in this encounter Care Teams Checker Stocker Relationship Specialty Start Date End Date Ashwin Arzola MD [address] [place] [address] PCP - General Internal Medicine 08/01/20 documented as of this encounter
--- OUTSIDE RECORDS SUMMARY | 2025-07-13 12:02 | XMS_ITS | Encounter Summary ---
Author Organization [facility] Address [address] [place] [address] Care Team Providers Care Press Operator Instant [employer] Name Role Phone Ashwin Arzola MD Primary Care Provider Encounter Details Date Type Department Care Team ([facility] st Contact Info) Description 07/01/2025 Telephone Orthopedic Surgery - [place] [address] [phone] Michele May MD 175 [place] [address] Social History Tobacco Use Types Packs/Day Years [...] Outreach made to Home Health AideInderjit, at [phone] Message left RE options to obtain this EMG order: Available through patient [email or web address] Our office can mail order to home address Our office can fax the EMG order, fax number will need to be provided Patient and/or home economics expert can stop at the office to pickle sorter up a print out Awaiting a call back from [employer], RE plan. * Jaya Correa - 07/01/2025 11:44 AM EDT Pt would like to do the hand test at [facility], If we can switch order. Pls call Home Health AideInderjit, at [phone] documented in this encounter Plan of Treatment Upcoming Encounters Date Type Department Care Team (Late st Contact Info) Description 07/19/2025 8:30 AM EDT Office Visit Adult Medicine [facility] [address] [place] [phone] Jenna Escobar GROCERY CLERK MARKING [address] [place] [address] 07/26/2025 10:30 AM EDT Office Visit Orthopedic Surgery - [place] 250 175 [facility] 250 [place] [phone] Linus Luna, DPM 175 [facility] [address] [place] [phone] 08/11/2025 10:35 AM EDT Office Visit Pulmonology - [place] 175 [facility] 200 [place] [address] Cami Dupont NP 230 [place] [address] 08/15/2025 10:40 AM EST Office Visit [facility] - [facility] 102 300 [facility] 102 [place] [phone] Hermelinda Marmolejo NP 300 [facility] 154 [place] [address] 01/23/2026 9:45 AM EDT Office Visit Adult Medicine [facility] 444 [place], [place] [phone] Ashwin Arzola MD [address] [place] [address] documented as of this encounter Visit Diagnoses Not on filedocumented in this encounter Care Teams Press Operator Instant [employer] Relationship Specialty Start Date End Date Ashwin Arzola MD [address] [place] [address] PCP - General Internal Medicine 08/01/20 documented as of this encounter
--- OUTSIDE RECORDS SUMMARY | 2025-07-13 12:02 | XMS_ITS | Encounter Summary ---
Author Organization [facility] Address [address] [place] [address] Care Team Providers Care Computer Systems Security Administrator Name Role Phone Ashwin Arzola MD Primary Care Provider [phone] Reason for Visit * Reason Onset Date Comments Hospital Follow-up 07/11/2025 Encounter Details Date Type Department Care Team (Late st Contact Info) Description 07/11/2025 Telephone Adult Medicine [address] [phone] Janna New [place] Social History Tobacco Use Types Packs/Day Years [...] Progress Notes * Nika Ballesteros RN - 07/12/2025 10:07 AM EDT An appointment was made for her to be seen in the office on 07/19/25 at 8:30 am with Jenna Escobar and she is in agreement with this plan. * Janna New MA - 07/12/2025 9:30 AM EDT KAREN Roberts is returning a missed call. * Nika Ballesteros RN - 07/12/2025 9:10 AM EDT I left a message for Alejandra to call the office at . * Janna New MA - 07/11/2025 10:34 AM EDT Hospital/ER follow up appointment needed Hospital patient was treated at: [facility] Was this only an ER visit or was the patient admitted to the hospital? ER Visit only Date of visit if ER visit only: 07/08/25 If patient was admitted what was the date of discharge? Reason/diagnosis for visit or stay: low sugars When was the patient told to follow up? 5-7 days Was visit or stay related to an injury? If yes, what was the date of injury (DOI)? No If yes, was the injury due to: Not 3rd alliance party related documented in this encounter Plan of Treatment Upcoming Encounters Date Type Department Care Team (Late st Contact Info) Description 07/19/2025 8:30 AM EDT Office Visit Adult Medicine [facility] [address] [place] [address] Jenna Escobar CEMETERY COUNSELOR [address] [place] [address] 07/26/2025 10:30 AM EDT Office Visit Orthopedic Surgery - [place] [address] 175 [facility] 250 [place] [address] Linus Luna DPM 175 [facility] 250 [place] [address] 08/11/2025 10:35 AM EDT Office Visit Pulmonology - [place] 175 [facility] 200 [place] [phone] Cami Dupont, GEORGES [address] [place] [address] 08/15/2025 10:40 AM EST Office Visit [facility] - [facility] [address] [facility] [address] [place] [phone] Hermelinda Marmolejo NP [address] [place] [address] 01/23/2026 9:45 AM EDT Office Visit Adult Medicine [address] [phone] Ashwin Arzola MD [address] [place] [address] documented as of this encounter Visit Diagnoses Not on filedocumented in this encounter Care Teams Computer Systems Security Administrator Relationship Specialty Start Date End Date Ashwin Arzola MD [address] [place] [address] PCP - General Internal Medicine 08/01/20 documented as of this encounter
--- OUTSIDE RECORDS SUMMARY | 2025-07-13 12:02 | XMS_ITS ---
Author Name Beatriz Ferguson NP Address [address] [place] [address] Phone [phone] [facility] Care Team Providers Care Feed Mill Tender Name Role Phone Beatriz Ferguson Unavailable [phone] [facility] Unavailable Shaina Olivares Unavailable Unavailable Ashwin Arzola Unavailable [phone] [facility] Unavailab [phone] Unavailable Unavailable Unavailable Reason for Referral Not [...] 2021-12-26 2023-01-02 Vitamin D (Ergocalciferol) 1.25 mg (03770 UT) Cap TAKE 1 CAPSULE BY MOUTH 1 TIME A WEEK 2021-11-16 2023-01-02 OneTouch Delica Plus [id number] Miscellaneous USE DIRECTED TWICE DAILY 2021-11-30 No [...] DAY AT BEDTIME 2022-05-01 No Data Available Rjmmpeglah-FOZL-Dbubgrud 50/325/40 mg Tab TAKE 1 TABLET BY MOUTH EVERY 6 HOURS NEEDED 2022-05-01 No Data Available B-D PEN NDL SHRT 43RK7UC(02/25) CARMEN USE DIRECTED THREE TIMES DAILY 2021-08-21 No Data Available Diclofenac Sodium 1 % Gel APPLY 4 GRAMS TOPICALLY TO THE AFFECTED AREA TWICE DAILY 2022-05-29 No Data Available Furosemide 40 mg Tab TAKE 1 TABLET BY [facility] DAILY 2022-07-25 2023-01-02 Mapap Arthritis Pain 650 [...] 20 mg Tab TAKE 1 TABLET BY [facility] AT BEDTIME 2023-06-23 No Data Available Ondansetron 4 mg Tab TAKE 1 TABLET BY [facility] EVERY 8 HOURS NEEDED FOR NAUSEA 2023-06-23 No Data Available Loratadine 10 mg Tab TAKE 1 TABLET BY [facility] EVERY DAY 2023-07-03 No Data Available Cetirizine 10 mg Tab TAKE 1 TABLET BY [facility] AT BEDTIME 2023-07-05 No Data Available Nystatin 386260 UNIT/GM Powder APPLY TOPICALLY FOUR TIMES DAILY [...] 50 mg Tab TAKE 1 TABLET BY [facility] EVERY 8 HOURS NEEDED 2023-07-30 No [...] WITH MEALS 2023-11-07 No Data Available UNIFINE 66ZK1TS PEN NEEDLES USE DIREC CODY THREE TIMES DAILY 2023-11-07 2023-11-26 Azithromycin 250 mg Tab TAKE 2 TABLETS B Y MOUTH FOR 1 DAY THEN TAKE 1 TABLET BY MOUTH DAILY FOR 4 DAYS 2023-11-11 No Data Available Cefuroxime Axetil 250 mg Tab TAKE 1 TABL ET BY MOUTH TWICE DAILY 2023-11-19 No Data Available Nystatin 468896 UNIT/GM Powder apply to affected area daily, [...] with voiding x months will f/u with BUSINESS TRANSFORMATION ANALYST 09/16/2023 Office Visit Obstetrics & Gynecology Clare Simon MD Hemiplegia and hemiparesis following cerebral infarction affecting left non-dominant side Active 2022-08 N/A CVA 2008Does not have MERCHANDISE CLERK 11/24/23Ambulates with a cane/walkerat risk for fallsFall prevention TIPS: Wear sensible shoes. Remove home hazards (Get rid of all rugs/mats in your home). Light up your living space (keep a flash light next to your bed for night time). Use assistive devices.ambulates with walker Chronic obstructive pulmonar y disease, unspecified Active 2022-08 N/A On Anoro ElliptaSpirivaProAiron 3L 02 PRNFollows Heat Set OperatorCONTINGEN CY PLANMember to call for the following [...] Quetiapinewith h/o delusions Follows Psychiatristfollowed by psychiatry [phone] (Neeta) ( member reports she does home [...] atorvastatin 80 mg. Other problems related to [facility] facilities and other health care [...] Pain Documented on a Pain Scale (1125F) [facility] [place] Pain Assessment - Pain Documented on a Pain Scale (1125F) [facility]/10[place]2022 Pain Assessment - Pain Documented on a Pain Scale (1125F) [facility] 09/10/2022 Pain Assessment - Pain Documented on a Pain Scale (1125F) [facility] [place] 09/10/2022 Pain Assessment - Pain Documented on a Pain Scale (1125F) [facility] 09/10/2022 Pain Assessment - Pain Documented on a Pain Scale (1125F) [facility] [place] 09/10/2022 Pain Assessment - Pain Documented on a Pain Scale (1125F) [facility] [place] 09/10/2022 Pain Assessment - Pain Documented on a Pain Scale (1125F) [facility] [place] 09/10/2022 Type 2 diabetes mellitus [...] 95 for video, modifier 93 for phone [facility] [place] 10/03/2022 Hypertensive heart disease w [...] 1111F, BP, A1c or other CPTII codes [facility], ([place] 11/28/2022 Encounter for other specifie d aftercare RN, CN or CP time with patient by phone; use with 1111F, BP, A1c or other CPTII codes [facility] [place] 11/28/2022 No Data Available [facility] [place] 12/03/2022 Chronic obstructive pulmonar y disease with (acute) exacerbation No Data Available [facility] [place] 12/03/2022 Estab. patient 30-39min; chronic exacerbation, 2 stable chronic or 1 acute illness add add modifier 95 for video, (do not use for phone, instead use 51517-10) [facility] [place] 01/09/2023 Type 2 diabetes mellitus wit [...] (do not use for phone, instead use 59785-11) [facility] [place] 01/09/2023 Estab. patient 30-39min; chronic exacerbation, 2 stable chronic or 1 acute illness add add modifier 95 for video, (do not use for phone, instead use 47691-11) [facility] [place] 01/09/2023 Estab. patient 30-39min; chronic exacerbation, 2 stable chronic or 1 acute illness add add modifier 95 for video, (do not use for phone, instead use 72948-84) [facility] [place] 01/09/2023 Estab. patient 30-39min; chronic exacerbation, 2 stable chronic or 1 acute illness add add modifier 95 for video, (do not use for phone, instead use 41408-54) [facility] [place] 01/09/2023 Estab. patient 30-39min; chronic exacerbation, 2 stable chronic or 1 acute illness add add modifier 95 for video, (do not use for phone, instead use 28302-31) [facility] [place] 01/09/2023 Estab. patient 30-39min; chronic exacerbation, 2 stable chronic or 1 acute illness add add modifier 95 for video, (do not use for phone, instead use 74673-93) [facility] [place] 01/09/2023 Estab. patient 30-39min; chronic exacerbation, 2 stable chronic or 1 acute illness add add modifier 95 for video, (do not use for phone, instead use 65272-24) [facility] [place] 01/09/2023 Estab. patient 30-39min; chronic exacerbation, 2 stable chronic or 1 acute illness add add modifier 95 for video, (do not use for phone, instead use 70648-49) [facility] [place] 01/09/2023 RN, CN or CP time with patient by phone; use with 1111F, BP, A1c or other CPTII codes [facility] [place] 01/02/2023 Encounter for other specifie d aftercare RN, CN or CP time with patient by phone; use with 1111F, BP, A1c or other CPTII codes [facility] [place] 01/02/2023 No Data Available [facility] [place] 03/28/2023 Other chest pain No Data Available [facility] [place] 04/02/2023 Chronic obstructive pulmonar y disease, unspecifiedChronic respiratory failure, unsp w hypoxia or hypercapniaSchizophrenia, unspecified No Data Available [facility] [place] 04/02/2023 No Data Available [facility] [place] 04/02/2023 No Data Available [facility] [place] 04/02/2023 No Data Available [facility] [place] 04/02/2023 No Data Available [facility] [place] 04/02/2023 No Data Available [facility] [place] 09/08/2023 Type 2 diabetes mellitus wit [...] status migrainosusAtherosclerosis of aorta No Data Available [facility] [place] 09/08/2023 No Data Available [facility] [place] 09/08/2023 No Data Available [facility] [place] 09[place]08/2023 No Data Available [facility] [place] 09/08/2023 No Data Available [facility] [place] 09/08/2023 No Data Available [facility] [place] 11/24/2023 Type 2 diabetes mellitus [...] and other health care No Data Available [facility] [place] 11/24/2023 No Data Available [facility] [place] 11/24/2023 No Data Available [facility] [place] 11/24/2023 No Data Available [facility] [place] 11/24/2023 No Data Available [facility] [place] 11/24/2023 RN, CN or CP time with patient by phone; use with 1111F, BP, A1c or other CPTII codes [facility] [place] 11/20/2023 Encounter for other specifie d aftercare RN, CN or CP time with patient by phone; use with 1111F, BP, A1c or other CPTII codes [facility] [place] 11/20/2023 Vital Signs Date of Collection Vitals [...] tive Time Current Smoking Status Former smoker 1 Sex Female History of Procedures Procedures [...] (do not use for phone, instead use 47570-49) 07483 2022-09-10 No Data Available No Data Availa ble Estab. patient 20-29min; 1 stable chronic or 2 minor; add add modifier 95 for video, modifier 93 for phone 03836 2022-10-03 No Data Available No Data Availa ble RN, CN or CP time with patient by phone; use with 1111F, BP, A1c or other CPTII codes 23771 2022-11-28 No Data Available No Data Avai lable Medications prescribed in hospital were reviewed and reconciled against what they were taking prior to admission during today's visit. (1111F) 1111F 2022-11-28 No Data Available No Data Availa ble No Data Available 29468 2022-12-03 No Data Available No Data Available Medications prescribed in hospital were reviewed and reconciled against what they were taking prior to admission during today's visit. (1111F) 1111F 2022-12-03 No Data Available No Data Availa ble Estab. patient 30-39min; chronic exacerbation, 2 stable chronic or 1 acute illness add add modifier 95 for video, (do not use for phone, instead use 10695-24) 15521 2023-01-09 No Data Available No Data Availa [...] 1111F, BP, A1c or other CPTII codes 05144 2023-01-02 No Data Available No Data Avai lable Medications prescribed in hospital were reviewed and reconciled against what they were taking prior to admission during today's visit. (1111F) 1111F 2023-01-02 No Data Available No Data Availa ble No Data Available 12121 2023-03-28 No Data Available No Data Available No Data Available [id number] 2023-04-02 No Data Available No Data Available [...] No Data Avail able No Data Available 84693 2023-09-08 No Data Available No Data Available [...] No Data Availa ble No Data Available 07557 2023-11-24 No Data Available No Data Available [...] 1111F, BP, A1c or other CPTII codes 08633 2023-11-20 No Data Available No Data Patricia [...] Falls in last 6 Months: No 2022-09-10 MERCHANDISE CLERK only there for 9 hours 2023-11-24 [...] E ducation to avoid future hospitalization: Call [facility] if symptoms of illness develop. COPD [...] or disease education needs that may arise.On TrvplaRrjogkrzbjJ0z- 7.5Encouraged regular exerciseLimit unhealthy foods and eat healthy mealsAvoid sugar-sweetened beverages. White bread, rice, pasta.Follows EndocrinologistDiscussed recommended a1c level- <7%CVA s a PCAAmbulates with a cane/walkerOn Anoro ElliptaSpirivaProAiron 3L 02 PRNFollows PulmonologistOn 3l 02Follows PulmonologistOn QuetiapineAripiprazoleDuloxetineFollows PsychiatristOn AmbienUses Ztlido patchOn Vitamin DOn FurosemideMetoprololWill monitor edema and weight, follows cardiologyOn AripiprazoleStableFollows PsychiatrMet[facility] CenterDsjxgzBsggnuelojX3p- 7.1Follows OphthalmologistOn OmeprazoleAvoid spicy, fatty or fried food, caffeine, chocolateAvoid lying down after mealsAvoid eating late at nightWears Pull-ups 2022-10-03 11:44:44 Televideo 20-29min; 1 stable chronic or 2 minor; add modifier 95Continue to see PCP. Follow-up with [facility] as needed for any acute or disease education needs that may arise 05/05.On XvcpgtAsffkihunsR3k- 7.1Encouraged regular exerciseLimit unhealthy foods and eat healthy mealsAvoid sugar-sweetened beverages. White bread, rice, pasta.Follows EndocrinologistDiscussed recommended a1c level- <7%CVA s a PCAAmbulates with a cane/walkerOn Anoro ElliptaSpirivaProAiron 3L 02 PRNFollows PulmonologistOn 3l 02Follows PulmonologistOn QuetiapineAripiprazoleDuloxetineFollows PsychiatristOn AmbienUses Ztlido patchOn Vitamin DOn FurosemideMetoprololWill monitor edema and weight, follows cardiologyOn AripiprazoleStableFollows PsychiatristOn ZsqgsgOghvxhkftdL3e- 7.5Follows OphthalmologistOn OmeprazoleAvoid spicy, fatty or fried [...] or disease education needs that may arise.On JaitdpCyxdkfmjaxW2r- 7.1Encouraged regular exerciseLimit unhealthy foods and eat [...] Psychiatrist01/09/23: Continue current treatment plan as directed.On FaqhqpCppmydxybaF8w- 7.5Follows OphthalmologistOn OmeprazoleAvoid spicy, fatty or fried [...] modifier 95)Continue to see PCP. Follow-up with [facility] as needed for any acute or disease [...] obtained (3008F)Continue to see PCP. [facility] any acute or [...] modifier 95)Continue to see PCP. Follow-up with [facility] [place] as needed for any acute or disease education needs that may arise 05/05.On FxhpyfMjoqbetvghH0o- 7.1Encouraged regular exerciseLimit unhealthy foods and eat [...] and fall precautions. Follow up as indicated.On KdinmoWixcgvimbyT4d- 7.5Follows OphthalmologistOn OmeprazoleAvoid spicy, fatty or fried food, caffeine, chocolateAvoid lying down after mealsAvoid eating late at night01/09/23: Continue current treatment plan as directed.has f/u visit 11/03/2023 Office Visit Gastroenterology Alber Benites PA-SHAKILAears Pull-ups+burning with voiding x months will f/u with BUSINESS TRANSFORMATION ANALYST 09/16/2023 Office Visit Obstetrics & Gynecology Clare [...] 8.4 202GFR 80 3CVA 2008Does not have MERCHANDISE CLERK 11/24/23Ambulates with a cane/walkerat risk for fallsFall prevention TIPS: Wear sensible shoes. Remove home hazards (Get rid of all rugs/mats in your home). Light up your living space (keep a flash light next to your bed for night time). Use assistive devices.ambulates with walkerOn Anoro ElliptaSpirivaProAiron 3L 02 Soel Heat Set OperatorCONTINGENCY PLANMember to call for the following symptoms: [...] agitationPlanned intervention: Contact mental health professional: psychiatry [phone] (Neeta)On quetiapinewith h/o delusions Follows Psychiatristfollowed by psychiatry [phone] (Neeta) ( member reports she does home [...] pneumoniae---sensitive to ceftriaxone) all uit symptoms resolved.On UbaqjvIkujtkocrqS9p- 7.0 11/19/23Follows OphthalmologistOn OmeprazoleAvoid spicy, fatty or fried food, caffeine, chocolateAvoid lying down after mealsAvoid eating late at night01/09/23: Continue current treatment plan as directed.has f/u visit 11/03/2023 Office Visit Gastroenterology Alber Benites PA-Zulma Pull-ups+burning with voiding x months will f/u with BUSINESS TRANSFORMATION ANALYST 09/16/2023 Office Visit Obstetrics & Gynecology Clare [...] joint pain increased [facility] for any acute or [...] precipitating factors: Hospital [facility]: [facility] Hospital admission date: 11/16/2023 Hospital discharge date: [...] chills todayRN there 9-10am ---Member unable to fruit or nut picker medications as she does not have MERCHANDISE CLERK. RN brought medications today. member unable to give me RN name or contact info. 2023-11-24 2 hours per day--no MERCHANDISE CLERK (does not have a MERCHANDISE CLERK) . email sent to [facility] cc re need for MERCHANDISE CLERK 2023-11-24 followed by tracie bonilla [phone] (Neeta) ( member reports she does home visits) 2023-11-24 unable to complete medication reconciliation; RN not available and member does not administer medications her self. 2023-11-24 medication list u pdated after review of Hosp records/medication list
--- OUTSIDE RECORDS SUMMARY | 2025-07-13 12:03 | XMS_ITS | Encounter Summary ---
Author Organization [facility] Address [address] [place] [address] Care Team Providers Care Seafood Processor Name Role Phone Ashwin Arzola MD Primary Care Provider [phone] Encounter Details Date Type Department Care Team (Late Contact Info) Description 01/19/2025 Billing Patient Not Present Adult Medicine [address] [phone] Ashwin Arzola MD [address] [place] [address] Social History Tobacco Use Types Packs/Day Years [...] Department Care Team (Late Contact Info) Description 07/19/2025 8:30 AM EDT Office Visit Adult Medicine [address] [phone] Jenna Escobar NP [address] [place] [address] 07/26/2025 10:30 AM EDT Office Visit Orthopedic Surgery - [place] [address] [facility] [address] [place] [address] Linus Luna, DPM 175 [facility] 250 [place] [address] 08/11/2025 10:35 AM EDT Office Visit Pulmonology - [place] 175 [facility] [address] [place] [address] Cami Dupont, GEORGES 230 [place] [address] 08/15/2025 10:40 AM EST Office Visit [facility] - [facility] 102 300 [facility] 102 [place] [phone] Hermelinda Marmolejo, [place]ES 300 [facility] 154 [place] [address] 01/23/2026 9:45 AM EDT Office Visit Adult Medicine [address] [phone] Ashwin Arzola MD [address] [place] [address] documented as of this encounter Visit Diagnoses Not on filedocumented in this encounter Care Teams Seafood Processor Relationship Specialty Start Date End Date Ashwin Arzola MD [address] [place] [address] PCP - General Internal Medicine 08/01/20 documented as of this encounter
--- OUTSIDE RECORDS SUMMARY | 2025-07-13 12:03 | XMS_ITS | Encounter Summary ---
Author Organization [facility] Address [address] [place] [address] Care Team Providers Care Medication Aid Name Role Phone Ashwin Arzola MD Primary Care Provider [phone] Encounter Details Date Type Department Care Team (Late Contact Info) Description 06/27/2025 Telephone Pulmonology - [place] 175 [facility] [address] [place] [address] Cami Dupont, [place]GES [address] [place] [address] Social History Tobacco Use Types Packs/Day Years [...] Upcoming Encounters Date Type Department Care Team ([facility] Contact Info) Description 07/19/2025 8:30 AM EDT Office Visit Adult Medicine [address] [place], [place] [phone] Jenna Escobar COMBATANT DIVER OFFICER [address] [place], [place] 07/26/2025 10:30 AM EDT Office Visit Orthopedic Surgery - [place] [address] 175 [facility] 250 [place] [address] Linus Luna, DPM 175 [facility] 250 [place] [address] 08/11/2025 10:35 AM EDT Office Visit Pulmonology - [place] 175 [facility] 200 [place] [address] Cami Dupont, [place] [address] [place] [address] 08/15/2025 10:40 AM EST Office Visit [facility] - [facility] 102 300 [facility] 102 [place] [phone] Hermelinda Marmolejo, GE[place]ES 300 [facility] [address] [place] [address] 01/23/2026 9:45 AM EDT Office Visit Adult Medicine [address] [phone] Ashwin Arzola MD [address] [place] [address] documented as of this encounter Visit Diagnoses Not on filedocumented in this encounter Care Teams Medication Aid Relationship Specialty Start Date End Date Ashwin Arzola MD [address] [place] [address] PCP - General Internal Medicine 08/01/20 documented as of this encounter
--- OUTSIDE RECORDS SUMMARY | 2025-07-13 12:03 | XMS_ITS | Clinical Summary ---
Author Organization [facility] [place] [address] [facility] Address [address] [place] [address] Phone Care Team Providers Care Needle Felt Making Machine Operator Name Role Phone Ashwin Arzola MD Primary Care Provider [phone] Allergies Active Allergy Reactions Criticality Noted Date [...] Active blood-glucose meter,continuou s (FreeStyle Cade 3 [place]) miscIndications :Type 2 diabetes mellitus with other specified complication, with long-term current use of insulin ([facility] V24, [facility] V28) To check sugars 1 [...] complication, with long-term current use of insulin ([facility] V24, [facility] V28) Box = Kit = [...] unspecified type,Severe persistent asthma, unspecified whether complicated ([facility] V28) Take 3 mL (2.5 [...] complication, with long-term current use of insulin ([facility] V24, [facility] V28) Take 1 tablet (500 [...] CT of the abdomen 08/19/2024 Bipolar disorder ([facility] V24, [facility] V28) 04/2024 Overview (08/19/2024): Heathley [...] Type 2 diabetes mellitus wit h cataract ([facility] V24, [facility] V28) 05/04/2020 Obesity (BMI 30.0-34.9) 02/10/2018 Stage 1 mild COPD by GOLD cl assification ([facility] V24, [facility] V28) 02/10/2018 Overview (08/19/2024): Last Assessment & Plan: Mild COPD. Continue with Trelegy 1 puff once a day. Migraine 01/16/2017 Palpitations 07/08/2016 CHF (congestive heart failure) ([facility] V24, [facility] V28) 04/22/2016 Asthma 04/05/2016 Overview (08/19/2024): Last Assessment & Plan: Continue with the use of Trelegy. The severity of asthma does not correlate with her symptoms. She is doing excellent with the Trelegy as well we will continue it. Diabetes mellitus with neuro logical manifestation ([facility] V24, [facility] V28) 12/19/2014 Pulmonary nodules/lesions, multiple 10/17/2014 Overview (08/19/2024): Last Assessment & Plan: Patient has history of calcified granulomas which has been stable for many years. Aneurysm of middle cerebral artery 07/07/2014 Overview (08/19/2024): 4mm on the R MCA bifucation. Patient was follow in [place] and no intervention was recommended Urinary incontinence 11/18/2013 Diabetic neuropathy ([facility] V24, [facility] V28) 0 02/03/2013 Overview (08/19/2024): [...] Encounters Date Type Department Care Team Description 07/11/2025 Telephone Adult Medicine [address] [phone] Janna New [place] 07/08/2025 Telephone Adult Medicine [address] [phone] Ashwin Arzola MD 07/06/2025 Telephone Adult Medicine [address] [phone] Antonio Elias LPN 07/06/2025 Telephone Adult Medicine [address] [phone] Ashwin Arzola MD 07/04/2025 Telephone Orthopedic Surgery [address] [phone] Domitila Carl 07/01/2025 Telephone Orthopedic Surgery [facility] 250 175 [facility] [address] [place] [phone] Michele May MD 06/30/2025 11:30 AM EDT Office Visit Adult [address] [phone] Ashwin Arzola MD Uncontrolled type 2 diabetes mellitus with hyperglycemia ([facility] V24, [facility] V28) (Primary Dx); Need for prophylactic vaccination and inoculation against influenza; High cholesterol; Encounter for long-term (current) use of medications; Primary hypertension 06/27/2025 Telephone Pulmonology [facility] 175 [facility] [address] [place] [phone] Cami Dupont NP 06/20/2025 11:15 AM EDT Office Visit Orthopedic [facility] 250 175 [facility] [address] [place] [phone] Michele May MD Right rotator cuff tendinitis (Primary Dx); Right tennis elbow; Numbness and tingling in left hand 06/16/2025 Telephone Pulmonology [facility] 175 [facility] 200 [place] [phone] Cami Dupont NP 06/14/2025 9:45 AM EDT [facility] [address] [phone] Cami Dupont NP Moderate persistent asthma without complication (Primary Dx); Stage 1 mild COPD by GOLD classification ([facility] V24, [facility] V28); Pulmonary nodules/lesions, multiple; JOSÉ (obstructive sleep apnea); Obesity (BMI 30.0-34.9) 06/09/2025 Telephone Adult [address] [phone] Antonio Elias LPN 06/08/2025 11:15 AM EDT Office Visit [address] [phone] Eddie Stapleton MD Cellulitis of other specified site (Primary Dx); Folliculitis; Type 2 diabetes mellitus with hyperglycemia, with long-term current use of insulin ([facility] V24, [facility] V28) 06/06/[address] [phone] Antonio Elias LPN 05/24/2025 10:45 AM EDT Office Visit Orthopedic Surgery [facility] [address] [phone] Linus Luna DPM Primary osteoarthritis of both feet (Primary Dx); Diabetic mononeuropathy simplex ([facility] V24, [facility] V28); Tinea pedis of both feet; Corns and callosities; Type II diabetes mellitus with peripheral circulatory disorder ([facility] V24, [facility] V28); Metatarsalgia of both feet; Pain in toe of right foot; Dermatophytosis of nail; Pain in toe of left foot 04/29/2025 9:30 AM EDT Ancillary Procedure [facility] 101 300 [facility] 101 [place] [phone] 04/25/2025 1:45 PM EDT Office Visit Orthopedic Surgery [facility] [address] [phone] Michele May MD Numbness and tingling in left hand (Primary Dx); Right shoulder pain; Right elbow pain; Right tennis elbow; Right rotator cuff tendinitis from Last 3 Months Immunizations Immunization Administration Dates Next Due Influenza Quadravalent, MDCK [...] under propofol UPPER GASTROINTESTINAL ENDOSCOPY 10/29/2016 PROCEDURE: [place] UPPER GI ENDOSCOPY PERFORMED; COMMENT: gastritis; biopsies not taken COLONOSCOPY 03/31/2012 PROCEDURE: HISTORICAL COLONOSCOPY; COMMENT: [facility]; Four adenomas UPPER GASTROINTESTINAL ENDOSCOPY 09/02/2019 PROCEDURE: UPPER GI ENDOSCOPY/EXAM; COMMENT: gastritis, biopsy pending CATARACT EXTRACTION Right PROCEDURE: HISTORICAL CATARACT REMOVAL Medical History Medical History Date Comments Asthma DX:Asthma Seronegative rheumatoid arth ritis ([facility] V24, [facility] V28) DX:Seronegative rheumatoid arthritis ([facility]) Lumbar spondylosis DX:Lumbar spo ndylosis; COMMENT: L3-S1 CTS (carpal tunnel syndrome) DX: CTS (carpal tunnel syndrome); COMMENT: s/p bilat surgery Plantar fasciitis DX:Plantar fas ciitis; COMMENT: Left Medial epicondylitis DX:Medial e picondylitis Pulmonary nodules DX:Pulmonary n odules; COMMENT: calcified Diabetes mellitus ([facility] V 24, [facility] V28) DX:Diabetes mellitus ([facility]) Bipolar disorder ([facility] V2 4, [facility] V28) DX:Bipolar disorder ([facility]) HTN (hypertension) DX:HTN (hyper tension) Bronchitis, not specified as acute or chronic DX:Bronchitis, not specified as acute or chronic Diabetes mellitus with neuro logical manifestation ([facility] V24, [facility] V28) 12/19/2014 DX:Diabetes mellitus with neurological manifestation (HCC) Hemiparesis affecting left s anthony as late effect of stroke ([facility] V24, [facility] V28) 05/15/2016 DX:Hemiparesis affecting lef t side as late effect of stroke (HCC) Gastritis 11/22/2016 DX:Gastritis Migraine 01/16/2017 DX:Migraine Migraine without status migr ainosus, not intractable 01/16/2017 DX:Migraine without status migrainosus, not intractable 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 ([facility] V24, [facility] V28) 02/20/2017 DX:DM type 2 causin g neurological disease ([facility]) Helicobacter pylori infection DX :Helicobacter [...] 8:30 AM EDT Office Visit Adult Medicine [facility] [address] [place] [address] Jenna Escobar NP [address] [place] [address] 07/26/2025 10:30 AM EDT Office Visit Orthopedic Surgery - [place] 250 175 [facility] 250 [place] [phone] Linus Luna DPM 175 [facility] 250 [place] [phone] 08/11/2025 10:35 AM EDT Office Visit Pulmonology - [place] 175 [facility] 200 [place] [phone] Cami Dupont, [place] [address] [place] [address] 08/15/2025 10:40 AM EST Office Visit [facility] 102 300 [facility] [address] [place] [address] Hermelinda Marmolejo NP [address] [place] [address] 01/23/2026 9:45 AM EDT Office Visit Adult Medicine [facility] [address] [place] [phone] Ashwin Arzola MD [address] [place] [phone] Health Maintenance Due Date Last Done Comments [...] 04/25/2025 2:35 PM EDT Right shoulder pain [place] ARTHROCENTESIS/ASPIRA TION/INJECTION INTERMEDIATE JOINT/BURSA WO U/S GUID Routine 04/25/2025 1:45 PM EDT Right tennis elbow [place] ARTHROCENTESIS/ASPIRA TION/INJECTION MAJOR JOINT/BURSA W/O U/S GUIDANCE [...] LAB CHEMISTRY METHOD 07/04/2025 1:46 PM EDT [facility] Microalb, Ur 51.5(H) 0.0 - 29.0 mg/L LAB CHEMISTRY METHOD 07/04/2025 1:46 PM EDT [facility] Microalb/Crea t Ratio 23 <30 mg/g creat LAB CHEMISTRY METHOD 07/04/2025 1:46 PM EDT [facility] Urine Urine specimen obtained by clean catch procedure / Unknown Non-blood Collection / Unknown 07/04/2025 10:57 AM EDT 07/04/2025 10:57 AM EDT us Ashwin Arzola MD LAB URINE ORDERABLES Final Resu lt [facility] [address] [place] [address], * Lipid panel with reflex to direct LDL (06/30/2025 12:30 PM EDT) Cholesterol 156 0 - 200 mg/dL LAB CHEMISTRY METHOD 06/30/2025 5:20 PM EDT [facility] Triglycerides 99 0 - 150 mg/dL LAB CHEMISTRY METHOD 06/30/2025 5:20 PM EDT [facility] HDL 80 >=40 mg/dL LAB CHEMISTRY METHOD 06/30/2025 5:20 PM EDT [facility] LDL Calculated 56 0 - 100 mg/dL LAB CHEMISTRY METHOD 06/30/2025 5:20 PM EDT [facility] Comment:Estimated LDL Calcul ated using equation: Total cholesterol - HDL cholesterol - (Triglycerides/5) VLDL Cholesterol Jacoby 19.8 mg/dL LAB CHEMISTRY METHOD 06/30/2025 5:20 PM EDT [facility] Non HDL Chol. (LDL+VLDL) 76 <145 mg/dL LAB CHEMISTRY METHOD 06/30/2025 5:20 PM EDT [facility] Chol/HDL Ratio 2.0 0.0 - 4.4 LAB CHEMISTRY METHOD 06/30/2025 5:20 PM EDT [facility] Blood Venous blood specimen / Unknown Venipuncture / Unknown 06/30/2025 12:30 PM EDT 06/30/2025 12:30 PM EDT us Ashwin Arzola MD LAB BLOOD ORDERABLES Final Resu lt Performing Organization Address [facility]/ZIP Co de Phone Number [facility] [address] [place] [address], [place] [phone] * (ABNORMAL) Hemoglobin A1c (06/30/2025 12:30 PM EDT) Hemoglobin A1C 9.1(H) <6.5 % LAB CHEMISTRY METHOD 06/30/2025 10:01 PM EDT [facility] Mean Bld Glu Estim. 214 mg/dL LAB CHEMISTRY METHOD 06/30/2025 10:01 PM EDT [facility] Blood Venous blood specimen / Unknown Venipuncture / Unknown 06/30/2025 12:30 PM EDT 06/30/2025 12:30 PM EDT us Ashwin Arzola MD LAB BLOOD ORDERABLES Final Resu lt Performing Organization Address [facility]/ZIP Co de Phone Number [facility] [address] [place] [address], [place] [phone] * (ABNORMAL) Comprehensive metabolic panel (06/30/2025 12:30 PM EDT) Sodium 140 133 - 145 mmol/L LAB CHEMISTRY METHOD 06/30/2025 5:18 PM EDT [facility] Potassium 3.7 3.5 - 5.5 mmol/L LAB CHEMISTRY METHOD 06/30/2025 5:18 PM EDT [facility] Chloride 103 96 - 110 mmol/L LAB CHEMISTRY METHOD 06/30/2025 5:18 PM [facility] CO2 33(H) 21 - 32 mmol/L LAB CHEMISTRY METHOD 06/30/2025 5:18 PM [facility] Anion Gap 4 3 - 11 LAB CHEMISTRY METHOD 06/30/2025 5:18 PM [facility] Glucose 110(H) 70 - 100 mg/dL LAB CHEMISTRY METHOD 06/30/2025 5:18 PM [facility] BUN 14 5 - 25 mg/dL LAB CHEMISTRY METHOD 06/30/2025 5:18 PM [facility] Creatinine 0.60 0.50 - 1.10 mg/dL LAB CHEMISTRY METHOD 06/30/2025 5:18 PM [facility] eGFR 96 >=60 mL/min/1. 73m2 LAB CHEMISTRY METHOD 06/30/2025 5:18 PM [facility] Comment:Calculation based on the Chronic Kidney Disease Epidemiology Collaboration (CKD-EPI) equation refit without adjustment for race. BUN/Creatinine Ratio 23.3 LAB CHEMISTRY METHOD 06/30/2025 5:18 PM [facility] Calcium 9.5 8.5 - 10.5 mg/dL LAB CHEMISTRY METHOD 06/30/2025 5:18 PM [facility] AST (SGOT) 17 10 - 42 unit/L LAB CHEMISTRY METHOD 06/30/2025 5:18 PM [facility] ALT (SGPT) 27 10 - 60 unit/L LAB CHEMISTRY METHOD 06/30/2025 5:18 PM [facility] Alkaline Phosphatase 77 42 - 121 unit/L LAB CHEMISTRY METHOD 06/30/2025 5:18 PM [facility] Total Protein 6.8 6.0 - 8.0 g/dL LAB CHEMISTRY METHOD 06/30/2025 5:18 PM [facility] Albumin 3.6 3.2 - 5.0 g/dL LAB CHEMISTRY METHOD 06/30/2025 5:18 PM EDT [facility] Total Bilirubin 0.3 0.0 - 1.4 mg/dL LAB CHEMISTRY METHOD 06/30/2025 5:18 PM EDT [facility] Blood Venous blood specimen / Unknown Venipuncture / Unknown 06/30/2025 12:30 PM EDT 06/30/2025 12:30 PM EDT us Ashwin Arzola MD LAB BLOOD ORDERABLES Final Resu lt [facility] [address] [place] [address], [place] [phone] * NM LEXISCAN STRESS TEST W/ MYOCARDIAL [...] MD IMG XR PROCEDURES Final Result * [place] ARTHROCENTESIS/ASPIRATION/INJECTION INTERMEDIATE JOINT/BURSA WO U/S GUID (04/25/2025 [...] IN CLINIC/BEDSIDE ORDERABLES Fin al Result * [place] ARTHROCENTESIS/ASPIRATION/INJECTION MAJOR JOINT/BURSA W/O U/S GUIDANCE (04/25/2025 1:45 PM EDT) Narrative Michele May MD - 04/25/2025 1:45 PM EDT Michele [...] bone mineral density by WHO criteria. The [facility] Department of Internal Medicine recommends using National [...] alternative screening schedule based on dia [place] October 31, 2011 for patients with [...] bone mineral density by WHO criteria. The [facility] Department of Internal Medicine recommendsusing National Osteoporosis [...] DXA PROCEDURES Final Result * Colonoscopy (05/19/2017) [facility] Colonoscopy abstracted, no interpretation Anatomical Region Laterality Modality Other [facility] Provider HEALTH MAINTENANCE Final Result * Hepatitis C Screening (05/04/2014) [facility] Hepatitis C Screening abstracted [facility] Provider HEALTH MAINTENANCE Final Result from Last 3 Months or Most Recently Relevant to Health Maintenance Insurance [facility] Member Subscriber Plan / Payer (Ef fective 2024-Present) Name:KEATING, MELYSSA Relation to Subscriber:Self Name:Melyssa Keating Payer ID:[id number] Group ID:[id number] Type:Not on file Address: [place] [address] [address] [id number] Care Teams Needle Felt Making Machine Operator Relationship Specialty Start Date End Date Ashwin Arzola MD [address] [place] [phone] PCP - General Internal Medicine 08/01/20
--- OUTSIDE RECORDS SUMMARY | 2025-07-13 12:03 | XMS_ITS | Encounter Summary ---
Author Organization [facility] Address [address] [place] [address] Care Team Providers Care Uke Operator Name Role Phone Ashwin Arzola MD Primary Care Provider [phone] Reason for Visit * Reason Onset Date Comments Fitting for DME 07/06/2025 Encounter Details Date Type Department Care Team (Late st Contact Info) Description 07/06/2025 Telephone Adult Medicine [address] [phone] Ashwin Arzola MD [address] [place] [address] Social History Tobacco Use Types Packs/Day Years [...] Progress Notes * Axel Persaud MA - 07/13/2025 9:51 AM EDT Signed orders faxed to [employer] [phone]. Orders scanned. * Axel Persaud MA - 07/06/2025 1:46 PM EDT Orders received from [employer] and to PCP for sig documented in this encounter Plan of Treatment Upcoming Encounters Date Type Department Care Team (Late st Contact Info) Description 07/19/2025 8:30 AM EDT Office Visit Adult Medicine [address] [phone] Jenna Escobar NP 4 [place], [place] 07/26/2025 10:30 AM EDT Office Visit Orthopedic Surgery - [place] 250 175 [facility] 250 [place] [phone] Linus Luna, DPM 175 [facility] 250 [place] [phone] 08/11/2025 10:35 AM EDT Office Visit Pulmonology - [place] 175 [facility] 200 [place] [address] Cami Dupont NP 230 [place] [address] 08/15/2025 10:40 AM EST Office Visit [facility] 102 300 [facility] 102 [place] [phone] Hermelinda Marmolejo NP 300 [facility] 154 [place] [address] 01/23/2026 9:45 AM EDT Office Visit Adult Medicine [address] [phone] Ashwin Arzola MD [address] [place] [address] documented as of this encounter Visit Diagnoses Not on filedocumented in this encounter Care Teams Uke Operator Relationship Specialty Start Date End Date Ashwin Arzola MD [address] [place] [phone] PCP - General Internal Medicine 08/01/20 documented as of this encounter
--- OUTSIDE RECORDS SUMMARY | 2025-07-13 12:03 | XMS_ITS | Encounter Summary ---
Author Organization [facility] Address [address] [place] [address] Care Team Providers Care Facing Baster Jumpbasting Name Role Phone Ashwin Arzola MD Primary Care Provider Reason for Visit * Reason Onset Date Comments triage low BS 07/08/2025 See [facility]NA message Encounter Details Date Type Department Care Team (Late st Contact Info) Description 07/08/2025 Telephone Adult Medicine [address] [phone] Ashwin Arzola MD [address] [place] [address] Social History Tobacco Use Types Packs/Day Years [...] as of this encounter Progress Notes * Ashwin Arzola MD - 07/08/2025 6:46 PM EDT Noted and agree with the ER * Nika Ballesteros RN - 07/08/2025 1:56 PM EDT Called and spoke to Giin. She states when she left pt's home this morning her BG was 69, via sensor, at approximately 9:30 am. She did not confirm the glucose with a fingerstick. She held pt's Lantus insulin. She called to check on pt at 11:30 am and according to the sensor her BG was 49. She instructed pt's GLASS ENAMEL MIXER to give herOJ and a PBG sandwich. Afterwards pt's BG via sensor was 50. Gini states she changed pt's sensor yesterday. She instructed pt's GLASS ENAMEL MIXER to call 911 and she was transported to [facility] ER. * Antonio Elias LPN - 07/08/2025 [...] 8:30 AM EDT Office Visit Adult Medicine [facility] 444 [place] [address] Jenna Escobar NP 444 [place] [address] 07/26/2025 10:30 AM EDT Office Visit Orthopedic Surgery [place] [address] 175 [facility] [address] [place] [address] Linus Luna, DPM 175 [facility] 250 [place] [phone] 08/11/2025 10:35 AM EDT Office Visit Pulmonology - [place] 175 [facility] 200 [place] [address] Cami Dupont, DIRECTOR OF PEDIATRIC REHABILITATION [address] [place] [address] 08/15/2025 10:40 AM EST Office Visit [facility] - [facility] 102 300 [facility] 102 [place] [phone] Hermelinda Marmolejo NP 300 [facility] 154 [place] [address] 01/23/2026 9:45 AM EDT Office Visit Adult Medicine [address] [phone] Ashwin Arzola MD [address] [place] [address] documented as of this encounter Visit Diagnoses Not on filedocumented in this encounter Care Teams Facing Baster Jumpbasting Relationship Specialty Start Date End Date Ashwin Arzola MD [address] [place] [address] PCP - General Internal Medicine 08/01/20 documented as of this encounter
--- OUTSIDE RECORDS SUMMARY | 2025-07-13 12:03 | XMS_ITS | Encounter Summary ---
Author Organization [facility] Address [address] [place] [address] Care Team Providers Care Crusher Tender Name Role Phone Ashwin Arzola MD Primary Care Provider [phone] Encounter Details Date Type Department Care Team (Late Contact Info) Description 01/07/2025 Billing Patient Not Present Adult Medicine [address] [phone] Ashwin Arzola MD [address] [place] [address] Social History Tobacco Use Types Packs/Day Years [...] 8:30 AM EDT Office Visit Adult Medicine [address] [phone] Jenna Escobar NP [address] [place] [address] 07/26/2025 10:30 AM EDT Office Visit Orthopedic Surgery - [place] [address] [facility] [address] [place] [address] Linus Luna, DPM 175 [facility] 250 [place] [address] 08/11/2025 10:35 AM EDT Office Visit Pulmonology - [place] [address] [facility] [address] [place] [address] Cami Dupont, [place] 230 [place] [address] 08/15/2025 10:40 AM EST Office Visit [facility] 102 [address] [facility] 102 [place] [phone] Hermelinda Marmolejo, [place] 300 [facility] 154 [place] [address] 01/23/2026 9:45 AM EDT Office Visit Adult Medicine [address] [phone] Ashwin Arzola MD [address] [place] [address] documented as of this encounter Visit Diagnoses Not on filedocumented in this encounter Care Teams Crusher Tender Relationship Specialty Start Date End Date Ashwin Arzola MD [address] [place] [address] PCP - General Internal Medicine 08/01/20 documented as of this encounter
--- OUTSIDE RECORDS SUMMARY | 2025-07-13 12:03 | XMS_ITS | Clinical Summary ---
Author Organization [facility] Address [address] [facility] [address] [place] [address] Phone Care Team Providers Care Sole Inker Name Role Phone Unavailable Primary Care Provider [...] file Medical Devices Not on file Insurance [facility] MED[facility]AC[facility] MEDICARE REPLACEMENT [facility] MEDICARE REPLACEMENT [facility] MEDICARE REPLACEMENT [facility] MEDICARE REPLACEMENT Additional Source Comments The information contained in this document represents components of the legal health record. It is not the complete legal health record.[facility]
== END 2025-07-13 10:29 | disposition home or self-care (01) ==
LOC: HO.NEURO 10:28
PROVIDERS: PCP Internal Medicine; Referring Provider Student in an Organized Health Care Education/Training Program
DX: R20.0 Anesthesia of skin (principal); R20.2 Paresthesia of skin
CPT/HCPCS: 95886; 95909

== ENCOUNTER → 2025-07-13 10:36 | Outpatient (BNV) | payer OTHER, SELFPAY | PROVIDERS: PCP Internal Medicine; Referring Provider Student in an Organized Health Care Education/Training Program; Visit Provider Physical Medicine & Rehabilitation | DX: G56.02 Carpal tunnel syndrome, left upper limb (principal) | CPT/HCPCS: 95886; 95909 ==

== ENCOUNTER 2025-07-20 00:02 | Emergency (ER) | payer OTHER, SELFPAY ==
--- NOTE | ~2025-07-20 | XR_ITS ---
CLINICAL HISTORY: productive cough, SOB 2 views chest Comparison: CR - XR CHEST 1V - 02/27/25 16:53 EDT Findings: No consolidation or effusion. No acute fracture. Impression: 1. Cardiomegaly without failure. This document has been electronically signed by: Erik Palomares MD on 07/20/2025 01:46:28
[2025-07-20 00:09] VITALS: BP 130/72; PULSE 72; O2SAT 95
[2025-07-20 00:17] LABS: Glucose, Whole Blood 173 mg/dL (60-115)
[2025-07-20 00:23] VITALS: BP 147/51; PULSE 70; RESP 16; TEMP 36.7; O2SAT 94; BMI 34.0
[2025-07-20 00:31] VITALS: RESP 16
--- OUTSIDE RECORDS SUMMARY | 2025-07-20 00:53 | XMS_ITS | Encounter Summary ---
Author Organization [facility] Address [address] [place] [address] Care Team Providers Care Waitstaff Captain Name Role Phone Sujey Browning MD Primary Care Provider Un available Dudley Brown MD Primary Care Provider Unavail able Nancy Vines DO Primary Care Pro vider Unavailable Ashwin Arzola MD Primary Care Provider [phone] Sotero Connell MD Unavailable [phone] Blanco Edwards NP Unavailable [phone] Reason for Visit * Reason Onset Date Comments Culinary Arts Teacher Feedback 05/09/2016 PVC Encounter Details Date Type Department Care Team Description 05/09/2016 Telephone Adult Medicine [address] [address] Sujey Browning MD Culinary Arts Teacher Feedback ([facility]) Social History Tobacco Use Types Packs/Day Years [...] referral required per patient's insurance. Order faxed [facility] Cardiology [phone] and office notes can be pulled from the office by [employer] [facility] Cardiology [phone] Notification letter mailed to patient, PVC will contact patient with appointment information documented in this encounter Plan of Treatment Not on file documented as of this encounter Visit Diagnoses Not on filedocumented in this encounter Care Teams Waitstaff Captain Relationship Specialty Start Date End Date Sujey Browning MD PCP - General Internal Medicine 03/27/1608/02 Dudley Brown MD PCP - General Internal Medicine 08/03/19 04/12/20 Nancy Vines DO PCP - General Internal Medicine 04/13/20 07/31/20 Ashwin Arzola MD [address] [place] [address] PCP - General Internal Medicine 08/01/20 Sotero Connell MD [address] [place] [address] Specialist Cardiology 07/10/21 Blanco Edwards NP [address] [place] [address] Specialist Cardiology 08/02/22 documented as of this encounter
--- OUTSIDE RECORDS SUMMARY | 2025-07-20 00:53 | XMS_ITS | Encounter Summary ---
Author Organization [facility] Address [address] [place] [address] Care Team Providers Care Receiving Inspector Name Role Phone Name, Braulio CHIANG Primary Care Provider Unavailabl Dudley Mancuso MD Primary Care Provider Unavail able Ajit Montanez MD Primary Care Provide r Unavailable Sujey Browning MD Primary Care Provider Un available Dudley Brown MD Primary Care Provider Unavail able Nancy Vines DO Primary Care Pro vider Unavailable Ashwin Arzola MD Primary Care Provider [phone] Sujey Browning MD Primary Care Provider Un available Sotero Connell MD Unavailable [phone] Blanco Edwards NP Unavailable [phone] Reason for Visit * Reason Onset Date Comments REFERRAL 10/21/2013 Encounter Details Date Type Department Care Team Description 10/21/2013 Telephone Derm[address]ology [address] [place] [address] [phone] Mitchel Palomo PA-C REFERRAL Social History Tobacco Use Types Packs/Day Years [...] encounter Miscellaneous Notes * Telephone Encounter - Angélica Butterfield - 10/21/2013 8:48 AM EST Names referral to Dermatology. Reason for referral: skin tag Priority: Next Available Sent referring provider msg no response from patient documented in this encounter Plan of Treatment Not on file documented as of this encounter Visit Diagnoses Not on filedocumented in this encounter Care Teams Receiving Inspector Relationship Specialty Start Date End Date [...] Medicine 04/13/20 07/31/20 Ashwin Arzola MD [address] [place] [address] PCP - General Internal Medicine 08/01/20 Sujey Browning MD PCP - General 07/03/15 11/12/15 Sotero Connell MD [address] [place] [address] Specialist Cardiology 07/10/21 Blanco Edwards NP [address] [place] [address] Specialist Cardiology 08/02/22 documented as of this encounter
--- OUTSIDE RECORDS SUMMARY | 2025-07-20 00:53 | XMS_ITS ---
Author Name Marty GEORGESBeatriz Address [address] [place] [address] Phone [phone] [facility] Care Team Providers Care Information Coder Name Role Phone Beatriz Ferguson Unavailable [phone] [facility] Unavailable [phone] Shaina Olivares Unavailable Unavailable Ashwin Arzola Unavailable [phone] [facility] Unavailab [phone] Unavailable Unavailable Unavailable Reason for Referral Not [...] 2021-12-26 2023-01-02 Vitamin D (Ergocalciferol) 1.25 mg (97203 UT) Cap TAKE 1 CAPSULE BY MOUTH 1 TIME A WEEK 2021-11-16 2023-01-02 OneTouch Delica Plus [id number] Miscellaneous USE DIRECTED TWICE DAILY 2021-11-30 No [...] DAY AT BEDTIME 2022-05-01 No Data Available Nmhmxmvuwb-FHHP-Tasmbkpv 50/325/40 mg Tab TAKE 1 TABLET BY MOUTH EVERY 6 HOURS NEEDED 2022-05-01 No Data Available B-D PEN NDL SHRT 50HV8IJ(02/25) CARMEN USE DIRECTED THREE TIMES DAILY 2021-08-21 No Data Available Diclofenac Sodium 1 % Gel APPLY 4 GRAMS TOPICALLY TO THE AFFECTED AREA TWICE DAILY 2022-05-29 No Data Available Furosemide 40 mg Tab TAKE 1 TABLET BY [facility] DAILY 2022-07-25 2023-01-02 Mapap Arthritis Pain [...] 20 mg Tab TAKE 1 TABLET BY [facility] AT BEDTIME 2023-06-23 No Data Available Ondansetron 4 mg Tab TAKE 1 TABLET BY [facility] EVERY 8 HOURS NEEDED FOR NAUSEA 2023-06-23 No Data Available Loratadine 10 mg Tab TAKE 1 TABLET BY [facility] EVERY DAY 2023-07-03 No Data Available Cetirizine 10 mg Tab TAKE 1 TABLET BY [facility] AT BEDTIME 2023-07-05 No Data Available Nystatin 937298 UNIT/GM Powder APPLY TOPICALLY FOUR TIMES DAILY [...] 50 mg Tab TAKE 1 TABLET BY [facility] EVERY 8 HOURS NEEDED 2023-07-30 No Data [...] WITH MEALS 2023-11-07 No Data Available UNIFINE [id number] PEN NEEDLES USE DIREC CODY THREE TIMES DAILY 2023-11-07 2023-11-26 Azithromycin 250 mg Tab TAKE 2 TABLETS B Y MOUTH FOR 1 DAY THEN TAKE 1 TABLET BY MOUTH DAILY FOR 4 DAYS 2023-11-11 No Data Available Cefuroxime Axetil 250 mg Tab TAKE 1 TABL ET BY MOUTH TWICE DAILY 2023-11-19 No Data Available Nystatin 337044 UNIT/GM Powder apply to affected area daily, [...] with voiding x months will f/u with [facility] DEPARTMENT CHAIR 09/16/2023 Office Visit Obstetrics & Gynecology Clare Simon MD Hemiplegia and hemiparesis following cerebral infarction affecting left non-dominant side Active 2022-08 N/A CVA 2008Does not have AUDIT PRACTICE INTERN 11/24/23Ambulates with a cane/walkerat risk for fallsFall prevention TIPS: Wear sensible shoes. Remove home hazards (Get rid of all rugs/mats in your home). Light up your living space (keep a flash light next to your bed for night time). Use assistive devices.ambulates with walker Chronic obstructive pulmonar y disease, unspecified Active 2022-08 N/A On Anoro ElliptaSpirivaProAiron 3L 02 PRNFollows Hazardous Substances EngineerCONTINGEN CY PLANMember to call for the following [...] Quetiapinewith h/o delusions Follows Psychiatristfollowed by psychiatry [phone] (Neeta) ( member reports she does home [...] atorvastatin 80 mg. Other problems related to [facility] and other health care Active [...] Pain Documented on a Pain Scale (1125F) [facility] [place] Pain Assessment - Pain Documented on a Pain Scale (1125F) [facility] [place] Pain Assessment - Pain Documented on a Pain Scale (1125F) [facility] [place] Pain Assessment - Pain Documented on a Pain Scale (1125F) [facility] [place]20[place] Pain Assessment - Pain Documented on a Pain Scale (1125F) [facility] [place] Pain Assessment - Pain Documented on a Pain Scale (1125F) [facility] [place]22 Pain Assessment - Pain Documented on a Pain Scale (1125F) [facility] [place]2022 Pain Assessment - Pain Documented on a Pain Scale (1125F) [facility] [place]2022 Type 2 diabetes [...] 95 for video, modifier 93 for phone [facility] [place]2022 Hypertensive heart disease [...] 1111F, BP, A1c or other CPTII codes [facility] [place]/2022 Encounter for other specifie d aftercare RN, CN or CP time with patient by phone; use with 1111F, BP, A1c or other CPTII codes [facility] [place] 11/[place]/2022 No Data Available [facility] [place]2022 Chronic obstructive pulmonar y disease with (acute) exacerbation No Data Available [facility] [place]2022 Estab. patient 30-39min; chronic exacerbation, 2 stable chronic or 1 acute illness add add modifier 95 for video, (do not use for phone, instead use 46396-06) [facility] [place] 01/09/2023 Type 2 diabetes mellitus wit h [...] (do not use for phone, instead use 53313-60) [facility] [place] 01/09/2023 Estab. patient 30-39min; chronic exacerbation, 2 stable chronic or 1 acute illness add add modifier 95 for video, (do not use for phone, instead use 47640-17) [facility] [place] 01/[place] Estab. patient 30-39min; chronic exacerbation, 2 stable chronic or 1 acute illness add add modifier 95 for video, (do not use for phone, instead use 32667-75) [facility] [place] 01/[place]/2023 Estab. patient 30-39min; chronic exacerbation, 2 stable chronic or 1 acute illness add add modifier 95 for video, (do not use for phone, instead use 98595-79) [facility] [place] 01/[place]2023 Estab. patient 30-39min; chronic exacerbation, 2 stable chronic or 1 acute illness add add modifier 95 for video, (do not use for phone, instead use 59962-87) [facility] [place] 01/[place]/2023 Estab. patient 30-39min; chronic exacerbation, 2 stable chronic or 1 acute illness add add modifier 95 for video, (do not use for phone, instead use 99750-52) [facility] [place] 01/[place]/2023 Estab. patient 30-39min; chronic exacerbation, 2 stable chronic or 1 acute illness add add modifier 95 for video, (do not use for phone, instead use 03072-28) [facility] [place] 01/[place]/2023 Estab. patient 30-39min; chronic exacerbation, 2 stable chronic or 1 acute illness add add modifier 95 for video, (do not use for phone, instead use 05316-77) [facility] [place]2023 RN, CN or CP time with patient by phone; use with 1111F, BP, A1c or other CPTII codes [facility] [place] 01/02/2023 Encounter for other specifie d aftercare RN, CN or CP time with patient by phone; use with 1111F, BP, A1c or other CPTII codes [facility] [place]2023 No Data Available [facility] [place] 03[place]28/2023 Other chest pain No Data Available [facility] [place] 04/02/2023 Chronic obstructive pulmonar y disease, unspecifiedChronic respiratory failure, unsp w hypoxia or hypercapniaSchizophrenia, unspecified No Data Available [facility] [place] 04/02[place]2023 No Data Available [facility] [place] 04/02/2023 No Data Available [facility] [place] 04/02/2023 No Data Available [facility] [place] 04/02/2023 No Data Available [facility] [place] 04/02/2023 No Data Available [facility] [place] 09/[place]/2023 Type 2 diabetes mellitus [...] status migrainosusAtherosclerosis of aorta No Data Available [facility] [place] 09/08/2023 No Data Available [facility] [place] 09/08/2023 No Data Available [facility] [place] 09/08/2023 No Data Available [facility] [place] 09/08/2023 No Data Available [facility] [place] 09/08/2023 No Data Available [facility] [place]/2023 Type 2 diabetes [...] and other health care No Data Available [facility] [place]/2023 No Data Available [facility] [place]2023 No Data Available [facility] [place]2023 No Data Available [facility] [place]2023 No Data Available [facility] [place] 11/[place]/2023 RN, CN or CP time with patient by phone; use with 1111F, BP, A1c or other CPTII codes [facility] ([place] 11/20/2023 Encounter for other specifie d aftercare RN, CN or CP time with patient by phone; use with 1111F, BP, A1c or other CPTII codes [facility] [place] 11/20/2023 Vital Signs Date of Collection Vitals [...] tive Time Current Smoking Status Former smoker 7 Sex Female History of Procedures Procedures Service [...] (do not use for phone, instead use 15474-77) 13205 2022-09-10 No Data Available No Data Availa ble Estab. patient 20-29min; 1 stable chronic or 2 minor; add add modifier 95 for video, modifier 93 for phone 43208 2022-10-03 No Data Available No Data Availa ble RN, CN or CP time with patient by phone; use with 1111F, BP, A1c or other CPTII codes 39758 2022-11-28 No Data Available No Data Avai lable Medications prescribed in hospital were reviewed and reconciled against what they were taking prior to admission during today's visit. (1111F) 1111F 2022-11-28 No Data Available No Data Availa ble No Data Available 35333 2022-12-03 No Data Available No Data Available Medications prescribed in hospital were reviewed and reconciled against what they were taking prior to admission during today's visit. (1111F) 1111F 2022-12-03 No Data Available No Data Availa ble Estab. patient 30-39min; chronic exacerbation, 2 stable chronic or 1 acute illness add add modifier 95 for video, (do not use for phone, instead use 63110-81) 28552 2023-01-09 No Data Available No Data Availa [...] 1111F, BP, A1c or other CPTII codes 73641 2023-01-02 No Data Available No Data Avai lable Medications prescribed in hospital were reviewed and reconciled against what they were taking prior to admission during today's visit. (1111F) 1111F 2023-01-02 No Data Available No Data Availa ble No Data Available [id number] 2023-03-28 No Data Available No Data Available No Data Available [id number] 2023-04-02 No Data Available No Data Available [...] No Data Avail able No Data Available 85242 2023-09-08 No Data Available No Data Available [...] No Data Availa ble No Data Available 32127 2023-11-24 No Data Available No Data Available [...] 1111F, BP, A1c or other CPTII codes 61411 2023-11-20 No Data Available No Data Patricia [...] Falls in last 6 Months: No 2022-09-10 AUDIT PRACTICE INTERN only there for 9 hours 2023-11-24 Mental [...] E ducation to avoid future hospitalization: Call [facility] if symptoms of illness develop. COPD [...] or disease education needs that may arise.On ShviisKczqnikfjgA9h- 7.5Encouraged regular exerciseLimit unhealthy foods and eat healthy mealsAvoid sugar-sweetened beverages. White bread, rice, pasta.Follows EndocrinologistDiscussed recommended a1c level- <7%CVA s a PCAAmbulates with a cane/walkerOn Anoro ElliptaSpirivaProAiron 3L 02 PRNFollows PulmonologistOn 3l 02Follows PulmonologistOn QuetiapineAripiprazoleDuloxetineFollows PsychiatristOn AmbienUses Ztlido patchOn Vitamin DOn FurosemideMetoprololWill monitor edema and weight, follows cardiologyOn AripiprazoleStableFollows PsychiatrMarietta Memorial HospitalCehnaoFyedpuzrfjG9v- 7.1Follows OphthalmologistOn OmeprazoleAvoid spicy, fatty or fried food, caffeine, chocolateAvoid lying down after mealsAvoid eating late at nightWears Pull-ups 2022-10-03 11:44:44 Televideo 20-29min; 1 stable chronic or 2 minor; add modifier 95Continue to see PCP. Follow-up with [facility] as needed for any acute or disease education needs that may arise 05/05.On SaumabLxuegbcivdM4u- 7.1Encouraged regular exerciseLimit unhealthy foods and eat healthy mealsAvoid sugar-sweetened beverages. White bread, rice, pasta.Follows EndocrinologistDiscussed recommended a1c level- <7%CVA s a PCAAmbulates with a cane/walkerOn Anoro ElliptaSpirivaProAiron 3L 02 PRNFollows PulmonologistOn 3l 02Follows PulmonologistOn QuetiapineAripiprazoleDuloxetineFollows PsychiatristOn AmbienUses Ztlido patchOn Vitamin DOn FurosemideMetoprololWill monitor edema and weight, follows cardiologyOn AripiprazoleStableFollows PsychiatristOn EspirzLdbdzisistU8m- 7.5Follows OphthalmologistOn OmeprazoleAvoid spicy, fatty or fried [...] or disease education needs that may arise.On SdgpviIakradqbbuH6l- 7.1Encouraged regular exerciseLimit unhealthy foods and eat [...] Psychiatrist01/09/23: Continue current treatment plan as directed.On BdxskgVzhisxsoafB6u- 7.5Follows OphthalmologistOn OmeprazoleAvoid spicy, fatty or fried [...] modifier 95)Continue to see PCP. Follow-up with [facility] as needed for any acute or [...] obtained (3008F)Continue to see PCP. [facility] or [...] modifier 95)Continue to see PCP. Follow-up with [facility] as needed for any acute or disease education needs that may arise 05/05.On VyilwxZfeefhjbqlF7r- 7.1Encouraged regular exerciseLimit unhealthy foods and eat [...] and fall precautions. Follow up as indicated.On JhtdhzTizyqnatacI8r- 7.5Follows OphthalmologistOn OmeprazoleAvoid spicy, fatty or fried food, caffeine, chocolateAvoid lying down after mealsAvoid eating late at night01/09/23: Continue current treatment plan as directed.has f/u visit 11/03/2023 Office Visit Gastroenterology Alber Benites PA-SHAKILAears Pull-ups+burning with voiding x months will f/u with [facility]PARTMENT CHAIR 09/16/2023 Office Visit Obstetrics & Gynecology Clare [...] 8.4 202GFR 80 3CVA 2008Does not have AUDIT PRACTICE INTERN 11/24/23Ambulates with a cane/walkerat risk for fallsFall prevention TIPS: Wear sensible shoes. Remove home hazards (Get rid of all rugs/mats in your home). Light up your living space (keep a flash light next to your bed for night time). Use assistive devices.ambulates with walkerOn Anoro ElliptaSpirivaProAiron 3L 02 Sole Hazardous Substances EngineerCONTINGENCY PLANMember to call for the following symptoms: [...] agitationPlanned intervention: Contact mental health professional: psychiatry [phone] (Neeta)On quetiapinewith h/o delusions Follows Psychiatristfollowed by psychiatry [phone] (Neeta) ( member reports she does home [...] pneumoniae---sensitive to ceftriaxone) all uit symptoms resolved.On UejiueIwzszmwlbiY3n- 7.0 11/19/23Follows OphthalmologistOn OmeprazoleAvoid spicy, fatty or fried food, caffeine, chocolateAvoid lying down after mealsAvoid eating late at night01/09/23: Continue current treatment plan as directed.has f/u visit 11/03/2023 Office Visit Gastroenterology Alber Benites PA-Zulma Pull-ups+burning with voiding x months will f/u with [employer] DEPARTMENT CHAIR 09/16/2023 Office Visit Obstetrics & Gynecology Clare [...] joint pain increased [facility]. [facility] any acute or [...] ER visit(s) and precipitating factors: Hospital name: [facility] Hospital admission date: 11/16/2023 Hospital discharge [...] chills todayRN there 9-10am ---Member unable to package pick up medications as she does not have AUDIT PRACTICE INTERN. RN brought medications today. member unable to give me RN name or contact info. 2023-11-24 2 hours per day--no AUDIT PRACTICE INTERN (does not have a AUDIT PRACTICE INTERN) . email sent to [facility] cc re need for AUDIT PRACTICE INTERN 2023-11-24 followed by tracie bonilla [phone] (Neeta) ( member reports she does home visits) 2023-11-24 unable to complete medication reconciliation; RN not available and member does not administer medications her self. 2023-11-24 medication list u pdated after review of Hosp records/medication list
--- OUTSIDE RECORDS SUMMARY | 2025-07-20 00:53 | XMS_ITS | Encounter Summary ---
Author Organization [facility] Address [address] [place] [address] Care Team Providers Care Operations Project Manager Name Role Phone Name, Braulio CHIANG Primary Care Provider Unavailabl Dudley Mancuso MD Primary Care Provider Unavail able Ajit Montanez MD Primary Care Provide r Unavailable Sujey Browning MD Primary Care Provider Un available Dudley Brown MD Primary Care Provider Unavail able Nancy Vines DO Primary Care Pro vider Unavailable Ashwin Arzola MD Primary Care Provider [phone] Sujey Browning MD Primary Care Provider Un available Sotero Connell MD Unavailable [phone] Blanco Edwards NP Unavailable [phone] Encounter Details Date Type Department Care Team Description 10/19/2013 Supervisor Electronic Coils Report Medical Records [address] [place] [address] Renuka Paz MD Social History Tobacco Use [...] on filedocumented in this encounter Care Teams Operations Project Manager Relationship Specialty Start Date End [...] Medicine 04/13/20 07/31/20 Ashwin Arzola MD [address] [place] [address] PCP - General Internal Medicine 08/01/20 Sujey Browning MD PCP - General 07/03/15 11/12/15 Sotero Connell MD [address] [place] [address] Specialist Cardiology 07/10/21 Blanco Edwards NP [address] [place] [address] Specialist Cardiology 08/02/22 documented as of this encounter
--- OUTSIDE RECORDS SUMMARY | 2025-07-20 00:53 | XMS_ITS | Encounter Summary ---
Author Organization [facility] Address [address] [place] [address] Care Team Providers Care Marine Steamfitter Name Role Phone Sujey Browning MD Primary Care Provider Un available Dudley Brown MD Primary Care Provider Unavail able Nancy Vines DO Primary Care Pro vider Unavailable Ashwin Arzola MD Primary Care Provider [phone] Sotero Connell MD Unavailable [phone] [facility] Un[facility] [phone] Reason for Visit * Reason Onset Date Comments Prior Authorization 06/07/2016 Encounter Details Date Type Department Care Team Description 06/07/2016 Telephone Adult Medicine [address] [phone] Sujey Browning MD Prior Authorization Social History [...] Thank you Please reply back to p [phone] prior authorization amirah Lopez C.M.A. [facility] [place] Prior Authorizations Ext: [phone] * Telephone Encounter - Viri Chase - 06/07/2016 1:28 PM EDT Pre Authorization for Medication Does the patient already have this medication?NO Is this a Cover My Meds request: [place] of Medication carisoprodol (SOMA) 350 MG tablet Dose of Medication How does patient take this med? What other dosage or similar medication have you tried in the past for this problem Patients current medical insurance [facility] What Prescription Plan does the patient have? Prescription Plan Tel # from back of prescription ID card [phone] What is the patients Prescription Plan ID #? [id number] What Pharmacy does the patient use? [facility] Payor: [employer] FFS / Plan: FFS HMO $0 [place] [id number] / Product Type: MEDICAID RISK documented in this encounter Plan of Treatment Not on file documented as of this encounter Visit Diagnoses Not on filedocumented in this encounter Care Teams Marine Steamfitter Relationship Specialty Start Date End Date Sujey Browning MD PCP - General Internal Medicine 03/27/1608/02 Dudley Brown MD PCP - General Internal Medicine 08/03/19 04/12/20 Nancy Vines DO PCP - General Internal Medicine 04/13/20 07/31/20 Ashwin Arzola MD [address] [place] [address] 29956 PCP - General Internal Medicine 08/01/20 Sotero Connell MD [address] [place] [address] [phone] Specialist Cardiology 07/10/21 Blanco Edwards NP [address] [place] [address] 36295 Specialist Cardiology 08/02/22 documented as of this encounter
--- OUTSIDE RECORDS SUMMARY | 2025-07-20 00:53 | XMS_ITS | Encounter Summary ---
Author Organization [facility] Address [address] [place] [address] Care Team Providers Care Delivery Nurse Name Role Phone Sujey Browning MD Primary Care Provider Un available Dudley Brown MD Primary Care Provider Unavail able Nancy Vines DO Primary Care Pro vider Unavailable Ashwin Arzola MD Primary Care Provider [phone] Sotero Connell MD Unavailable [phone] [facility] Unavailable [phone] Encounter Details Date Type Department Care Team Description 07/16/2016 Diesel Electrician Report Medical Records [address] [place] [address] 22121 Erik Langford MD Social History Tobacco Use [...] on filedocumented in this encounter Care Teams Delivery Nurse Relationship Specialty Start Date End Date Sujey Browning MD PCP - General Internal Medicine 03/27/1608/02 Dudley Brown MD PCP - General Internal Medicine 08/03/19 04/12/20 Nancy Vines DO PCP - General Internal Medicine 04/13/20 07/31/20 Ashwin Arzola MD [address] [place] [address] 75275 PCP - General Internal Medicine 08/01/20 Sotero Connell MD [address] [place] [address] 01020 Specialist Cardiology 07/10/21 Blanco Edwards NP [address] [place] [address] [phone] Specialist Cardiology 08/02/22 documented as of this encounter
--- OUTSIDE RECORDS SUMMARY | 2025-07-20 00:53 | XMS_ITS | Encounter Summary ---
Author Organization [facility] Address [address] [place] [address] Care Team Providers Care Supervisor Car Installations Name Role Phone Name, Braulio CHIANG Primary Care Provider Unavailabl Dudley Mancuso MD Primary Care Provider Unavail able Ajit Montanez MD Primary Care Provide r Unavailable Sujey Browning MD Primary Care Provider Un available Dudley Brown MD Primary Care Provider Unavail able Nancy Vines DO Primary Care Pro vider Unavailable Ashwin Arzola MD Primary Care Provider [phone] Sujey Browning MD Primary Care Provider Un available Sotero Connell MD Unavailable [phone] Blanco Edwards NP Unavailable [phone] Reason for Visit * Reason Onset Date Comments VNA Call 09/01/2013 Encounter Details Date Type Department Care Team Description 09/01/2013 Telephone Adult [address] [phone] Braulio Loyola MD VNA Call Social History [...] and wheel chair cushion. [facility] * Telephone Encounter - Enid Avery - 09/01/2013 9:59 AM EST VNA CALL Which VNA office is calling? [facility] Full name of caller: Terri Doll [...] disc documented in this encounter Care Teams Supervisor Car Installations Relationship Specialty Start Date End Date Name, [...] Medicine 04/13/20 07/31/20 Ashwin Arzola MD [address] [place] [address] 83708 PCP - General Internal Medicine 08/01/20 Sujey Browning MD PCP - General 07/03/15 11/12/15 Sotero Connell MD [address] [place] [address] [phone] Specialist Cardiology 07/10/21 Blanco Edwards NP [address] [place] [address] [phone] Specialist Cardiology 08/02/22 documented as of this encounter
--- OUTSIDE RECORDS SUMMARY | 2025-07-20 00:53 | XMS_ITS | Encounter Summary ---
Author Organization [facility] Address [address] [place] [address] Care Team Providers Care Core Machine Operator Name Role Phone Sujey Browning MD Primary Care Provider Un available Dudley Brown MD Primary Care Provider Unavail able Nacny Vines DO Primary Care Pro vider Unavailable Ashwin Arzola MD Primary Care Provider [phone] Sotero Connell MD Unavailable [phone] [facility] Unavailable [phone] Encounter Details Date Type Department Care Team Description 05/09/2016 Hospital Medical Records [address] [place] [address] Adolfo Reyes MD Social History Tobacco Use [...] on filedocumented in this encounter Care Teams Core Machine Operator Relationship Specialty Start Date End Date Sujey Browning MD PCP - General Internal Medicine 03/27/1608/02 Dudley Brown MD PCP - General Internal Medicine 08/03/19 04/12/20 Nancy Vines DO PCP - General Internal Medicine 04/13/20 07/31/20 Ashwin Arzola MD [address] [place] [address] [phone] PCP - General Internal Medicine 08/01/20 Sotero Connell MD [address] [place] [address] [phone] Specialist Cardiology 07/10/21 Blanco Edwards NP [address] [place] [address] [phone] Specialist Cardiology 08/02/22 documented as of this encounter
[2025-07-20 00:54] LABS: Hematocrit 32.3 % (37.0-47.0); Hemoglobin 10.5 g/dl (12.0-16.0); Imm Gran Abs Auto 0.01 X10*3/uL (0.00-0.03); Imm Gran Pct Auto 0.1 % (0.0-0.4); Lymphocytes Absolute Auto 1.6 X10*3/uL (1.2-4.9); MANUAL DIFF FLAG NO; Mean Corpuscular HGB Conc 32.5 g/dl (31.0-35.0); Mean Corpuscular Hemoglobin 27.1 pg (27.0-33.0); Mean Corpuscular Volume 83.2 fL (80.0-98.0); NRBC Abs Auto 0.000 X10*3/uL (0.0-0.012); NRBC Pct Auto 0.0 /100WBC (0.0-0.2); Platelet Count 185 X10*3/uL (160-400); Red Blood Count 3.88 X10*6/uL (4.20-5.50); White Blood Count 6.8 X10*3/uL (4.8-10.8)
--- OUTSIDE RECORDS SUMMARY | 2025-07-20 00:54 | XMS_ITS | Encounter Summary ---
Author Organization [facility] Address [address] [place] [address] Care Team Providers Care Community Representative Name Role Phone Ashwin Arzola MD Primary Care Provider [phone] Sotero Connell MD Unavailable [phone] Blanco Edwards NP Unavailable [phone] Reason for Visit * Reason Onset Date Comments Sleep Study 08/29/2023 Requested Encounter Details Date Type Department Care Team Description 08/29/2023 Telephone Pulmonology [address] [place] [address] Blane Shah MD Sleep Study [...] filedocumented in this encounter Care Teams Community Representative Relationship Specialty Start Date End Date Ashwin Arzola MD [address] [place] [address] 33577 PCP - General Internal Medicine 08/01/20 Sotero Connell MD [address] [place] [address] 86285 Specialist Cardiology 07/10/21 Blanco Edwards NP [address] [place] [address] 27430 Specialist Cardiology 08/02/22 documented as of this encounter
--- OUTSIDE RECORDS SUMMARY | 2025-07-20 00:54 | XMS_ITS | Encounter Summary ---
Author Organization [facility] Address [address] [place] [address] Care Team Providers Care Human Geography Faculty Member Name Role Phone Ashwin Arzola MD Primary Care Provider [phone] Sotero Connell MD Unavailable [phone] Blanco Edwards NP Unavailable [phone] Encounter Details Date Type Department Care Team Description 12/26/2020 Orders Only Adult Medicine [address] [phone] Ashwin Arzola MD [address] [place] [address] [phone] Imbalance (Primary Dx) Social History Tobacco Use [...] WITHOUT CONTRAST (02/27/2021) Ashwin Arzola MD MRI [facility] [address] [place] [address] documented in this encounter Visit Diagnoses Diagnosis Imbalance- Primary Abnormality of gait documented in this encounter Care Teams Human Geography Faculty Member Relationship Specialty Start Date End Date Ashwin Arzola MD [address] [place] [address] [phone] PCP - General Internal Medicine 08/01/20 Sotero Connell MD [address] [place] [address] [phone] Specialist Cardiology 07/10/21 Blanco Edwards NP [address] [place] [address] [phone] Specialist Cardiology 08/02/22 documented as of this encounter
--- OUTSIDE RECORDS SUMMARY | 2025-07-20 00:54 | XMS_ITS | Encounter Summary ---
Author Organization [facility] Address [address] [place] [address] Care Team Providers Care Net Applications Developer Name Role Phone Ashwin Arzola MD Primary Care Provider [phone] Sotero Connell MD Unavailable [phone] Blanco Edwards NP Unavailable [phone] Encounter Details Date Type Department Care Team Description 06/24/2023 Orders Only Medical Records [address] [place] [address] 94557 Abstract, Provider Social History Tobacco Use Types [...] on filedocumented in this encounter Care Teams Net Applications Developer Relationship Specialty Start Date End Date Ashwin Arzola MD [address] [place] [address] [phone] PCP - General Internal Medicine 08/01/20 Sotero Connell MD [address] [place] [address] Specialist Cardiology 07/10/21 Blanco Edwards NP [address] [place] [address] [phone] Specialist Cardiology 08/02/22 documented as of this encounter
--- OUTSIDE RECORDS SUMMARY | 2025-07-20 00:54 | XMS_ITS | Encounter Summary ---
Author Organization [facility] Address [address] [place] [address] Care Team Providers Care Potato Chip Packaging Machine Operator Name Role Phone Ashwin Arzola MD Primary Care Provider [phone] Sotero Connell MD Unavailable [phone] Blanco Edwards NP Unavailable [phone] Encounter Details Date Type Department Care Team Description 03/07/2021 Orders Only Radiology - [address] [phone] Radiology, Authorizing Social History Tobacco Use Types [...] on filedocumented in this encounter Care Teams Potato Chip Packaging Machine Operator Relationship Specialty Start Date End Date Ashwin Arzola MD [address] [place] [address] [phone] PCP - General Internal Medicine 08/01/20 Sotero Connell MD [address] [place] [address] [phone] Specialist Cardiology 07/10/21 Blanco Edwards NP [address] [place] [address] 65967 Specialist Cardiology 08/02/22 documented as of this encounter
--- OUTSIDE RECORDS SUMMARY | 2025-07-20 00:54 | XMS_ITS | Encounter Summary ---
Author Organization [facility] Address [address] [place] [address] Care Team Providers Care Graphite Disk Assembler Name Role Phone Name, Braulio CHIANG Primary Care Provider Unavailabl Dudley Mancuso MD Primary Care Provider Unavail able Ajit Montanez MD Primary Care Provide r Unavailable Sujey Browning MD Primary Care Provider Un available Dudley Brown MD Primary Care Provider Unavail able Nancy Vines DO Primary Care Pro vider Unavailable Ashwin Arzola MD Primary Care Provider [phone] Sujey Browning MD Primary Care Provider Un available Sotero Connell MD Unavailable [phone] Blanco Edwards NP Unavailable [phone] Encounter Details Date Type Department Care Team Description 11/29/2011 Release of Information Medical Records [address] [place] [address] 72072 Abstract, Provider Social History Tobacco Use Types [...] on filedocumented in this encounter Care Teams Graphite Disk Assembler Relationship Specialty Start Date End Date [...] Internal Medicine 04/13/20 07/31/20 Ashwin Arzola MD [address] [place] [address] [phone] PCP - General Internal Medicine 08/01/20 Sujey Browning MD PCP - General 07/03/15 11/12/15 Sotero Connell MD [address] [place] [address] [phone] Specialist Cardiology 07/10/21 Blanco Edwards NP [address] [place] [address] 48942 Specialist Cardiology 08/02/22 documented as of this encounter
--- OUTSIDE RECORDS SUMMARY | 2025-07-20 00:54 | XMS_ITS | Encounter Summary ---
Author Organization [facility] Address [address] [place] [address] Care Team Providers Care Packing Line Operator Name Role Phone Ashwin Arzola MD Primary Care Provider [phone] Sotero Connell MD Unavailable [phone] Blanco Edwards NP Unavailable [phone] Encounter Details Date Type Department Care Team Description 07/29/2023 Orders Only Medical Records [address] [place] [address] 55073 Erik Langford MD Social History Tobacco Use [...] on filedocumented in this encounter Care Teams Packing Line Operator Relationship Specialty Start Date End Date Ashwin Arzola MD [address] [place] [address] 01020 PCP - General Internal Medicine 08/01/20 Sotero Connell MD [address] [place] [address] [phone] Specialist Cardiology 07/10/21 Blanco Edwards NP [address] [place] [address] [phone] Specialist Cardiology 08/02/22 documented as of this encounter
--- OUTSIDE RECORDS SUMMARY | 2025-07-20 00:54 | XMS_ITS | Encounter Summary ---
Author Organization [facility] Address [address] [place] [address] Care Team Providers Care Air Pollution Compliance Inspector Name Role Phone Ashwin Arzola MD Primary Care Provider [phone] Sotero Connell MD Unavailable [phone] Blanco Edwards NP Unavailable [phone] Reason for Visit * Reason Onset Date Comments Prior Authorization 05/09/2023 GASTRO Encounter Details Date Type Department Care Team Description 05/09/2023 Telephone Gastroenterology - [address] [place] [phone] Amber Duque MD [address] [place] [address] Prior Authorization (GASTRO) Social History Tobacco Use [...] Dayami Galvin - 05/09/2023 9:58 AM EDT [facility] - No Auth Required per Ins. Decision ID #:[id number] Order Forwared to GI Schedulers /GI Team * Telephone Encounter - Aicha Clayton - 05/09/2023 9:01 AM EDT Images from the original note were not included. [facility] PA & External surgeon [place] pre-op pool Pre-auth needed Patient is scheduled for an Endoscopy on 05/15/23 Diagnosis dysphagia Patients insurance: [facility] Appointment is with Dayan Duque MD Code to process pre-auth for: [id number] Location of procedure: [facility] documented in this encounter Plan of Treatment Not on file documented as of this encounter Visit Diagnoses Not on filedocumented in this encounter Care Teams Air Pollution Compliance Inspector Relationship Specialty Start Date End Date Ashwin Arzola MD [address] [place] [address] 86009 PCP - General Internal Medicine 08/01/20 Sotero Connell MD [address] [place] [address] 09150 Specialist Cardiology 07/10/21 Blanco Edwards NP [address] [place] [address] 90468 Specialist Cardiology 08/02/22 documented as of this encounter
--- OUTSIDE RECORDS SUMMARY | 2025-07-20 00:54 | XMS_ITS | Encounter Summary ---
Author Organization [facility] Address [address] [place] [address] Care Team Providers Care Security Systems Integrator Name Role Phone Ashwin Arzola MD Primary Care Provider [phone] Sotero Connell MD Unavailable [phone] Blanco Edwards NP Unavailable [phone] Reason for Visit * Reason Onset Date Comments Prior Authorization 10/29/2020 Encounter Details Date Type Department Care Team Description 10/29/2020 Telephone Adult Medicine [facility] [address] [place] [address] [phone] Ashwin Arzola MD [address] [place] [address] 22077 Prior Authorization Social History Tobacco Use Types [...] lantus. Thank you Please reply back to [id number] Prior Auth Pool [facility] Prior [...] lantus? Thank you Please reply back to [id number] Prior [facility]kat [facility] Prior Authorization Ext [phone] * Telephone Encounter - Ghada Abbasi - 10/29/2020 2:47 PM EST Prior Authorization for Medication-do not complete and send this encounter unless you have the fax from the pharmacy. Is this a Cover My Meds request: [place] of Medication Insulin Glargine (BASAGLAR KWIKPEN) Dose of Medication 100 UNIT/ML Solution Pen-injector What is the RX # from the faxed refill? How does patient take this med? Inject 30 Units into the skin daily. What Pharmacy did the fax come from: [facility] Pharmacy fax #: [phone] [employer] Party Information from fax: What Prescription Plan does the patient have? BIN/PCN if applicable: Patience ID:[id number] Person Code: Relationship Code: Help desk phone: [phone] documented in this encounter Plan of Treatment Not on file documented as of this encounter Visit Diagnoses Not on filedocumented in this encounter Care Teams Security Systems Integrator Relationship Specialty Start Date End Date Ashwin Arzola MD [address] [place] [address] 10768 PCP - General Internal Medicine 08/01/20 Sotero Connell MD [address] [place] [address] 92518 Specialist Cardiology 07/10/21 Blanco Edwards NP [address] [place] [address] 94362 Specialist Cardiology 08/02/22 documented as of this encounter
--- OUTSIDE RECORDS SUMMARY | 2025-07-20 00:54 | XMS_ITS | Encounter Summary ---
Author Organization [facility] Address [address] [place] [address] Care Team Providers Care Learning Program Manager Name Role Phone Ashwin Arzola MD Primary Care Provider [phone] Sotero Connell MD Unavailable [phone] Blanco Edwards NP Unavailable [phone] Reason for Visit * Reason Onset Date Comments Faxed Refill 03/07/2023 Encounter Details Date Type Department Care Team Description 03/07/2023 Refill Pulmonology - [address] [place] [phone] Blane Shah MD Faxed Refill Social History Tobacco Use Types [...] * Telephone Encounter - Estefania Lopez - 03/07/2023 4:14 PM EDT ADRIANNA 08/02/22 NOV 04/21/23 documented in this encounter Plan of Treatment Not on file documented as of this encounter Visit Diagnoses Diagnosis Mild intermittent asthma, unspecified whether complicated documented in this encounter Care Teams Learning Program Manager Relationship Specialty Start Date End Date Ashwin Arzola MD [address] [place] [address] [phone] PCP - General Internal Medicine 08/01/20 Sotero Connell MD [address] [place] [address] [phone] Specialist Cardiology 07/10/21 Blanco Edwards NP [address] [place] [address] [phone] Specialist Cardiology 08/02/22 documented as of this encounter
--- OUTSIDE RECORDS SUMMARY | 2025-07-20 00:54 | XMS_ITS | Encounter Summary ---
Author Organization [facility] Address [address] [place] [address] Care Team Providers Care Computer Software Engineer Name Role Phone Name, Braulio CHIANG Primary Care Provider Unavailabl Dudley Mancuso MD Primary Care Provider Unavail able Ajit Montanez MD Primary Care Provide r Unavailable Sujey Browning MD Primary Care Provider Un available Dudley Brown MD Primary Care Provider Unavail able Nancy Vines DO Primary Care Pro vider Unavailable Ashwin Arzola MD Primary Care Provider [phone] Sujey Browning MD Primary Care Provider Un available Sotero Connell MD Unavailable [phone] Blanco Edwards NP Unavailable [phone] Encounter Details Date Type Department Care Team Description 03/06/2012 Orders Only Adult Medicine [address] [address] Name, MD Braulio JOSÉ (obstructive sleep apnea) [...] (pediatric) documented in this encounter Care Teams Computer Software Engineer Relationship Specialty Start Date End Date Name, [...] Medicine 04/13/20 07/31/20 Ashwin Arzola MD [address] [place] [address] 03331 PCP - General Internal Medicine 08/01/20 Sujey Browning MD PCP - General 07/03/15 11/12/15 Sotero Connell MD [address] [place] [address] 58801 Specialist Cardiology 07/10/21 Blanco Edwards NP [address] [place] [address] 41105 Specialist Cardiology 08/02/22 documented as of this encounter
--- OUTSIDE RECORDS SUMMARY | 2025-07-20 00:54 | XMS_ITS | Encounter Summary ---
Author Organization [facility] Address [address] [place] [address] Care Team Providers Care Nuclear Power Reactor Operator Name Role Phone Ashwin Arzola MD Primary Care Provider [phone] Sotero Connell MD Unavailable [phone] Blanco Edwards NP Unavailable [phone] Reason for Visit * Reason Onset Date Comments VNA Call 10/28/2023 Encounter Details Date Type Department Care Team Description 10/28/2023 Telephone Adult Medicine [facility] [address] [place], [place] [phone] Ashwin Arzola MD [address] [place], [place] [phone] VNA Call Social History Tobacco Use Types [...] send response to the VNA pool P [id number] Thank you * Telephone Encounter - Micah [...] on filedocumented in this encounter Care Teams Nuclear Power Reactor Operator Relationship Specialty Start Date End Date Ashwin Arzola MD [address] [place] [address] 31847 PCP - General Internal Medicine 08/01/20 Sotero Connell MD [address] [place] [address] 91407 Specialist Cardiology 07/10/21 Blanco Edwards NP [address] [place] [address] 09394 Specialist Cardiology 08/02/22 documented as of this encounter
--- OUTSIDE RECORDS SUMMARY | 2025-07-20 00:54 | XMS_ITS | Encounter Summary ---
Author Organization [facility] Address [address] [place] [address] Care Team Providers Care Escort Service Attendant Name Role Phone Ashwin Arzola MD Primary Care Provider [phone] Sotero Connell MD Unavailable [phone] Blanco Edwards NP Unavailable [phone] Reason for Visit * Reason Onset Date Comments Faxed Refill 08/28/2023 Encounter Details Date Type Department Care Team Description 08/28/2023 Refill Pulmonology - [address] [place] [phone] Blane Shah MD Faxed Refill Social History [...] Telephone Encounter - Tammy Aceves CMA - 09/03/2023 1:54 PM EST 's patient * Telephone Encounter - Estefania Lopez - 08/28/2023 3:57 PM EST ADRIANNA 03/25/23 documented in this encounter Plan of Treatment Not on file documented as of this encounter Visit Diagnoses Not on filedocumented in this encounter Care Teams Escort Service Attendant Relationship Specialty Start Date End Date Ashwin Arzola MD [address] [place] [address] 58664 PCP - General Internal Medicine 08/01/20 Sotero Connell MD [address] [place] [address] 49441 Specialist Cardiology 07/10/21 Blanco Edwards NP [address] [place] [address] [phone] Specialist Cardiology 08/02/22 documented as of this encounter
--- OUTSIDE RECORDS SUMMARY | 2025-07-20 00:54 | XMS_ITS | Encounter Summary ---
Author Organization [facility] Address [address] [place] [address] Care Team Providers Care Middle School Art Teacher Name Role Phone Ashwin Arzola MD Primary Care Provider [phone] Sotero Connell MD Unavailable [phone] Blanco Edwards NP Unavailable [phone] Encounter Details Date Type Department Care Team Description 08/30/2020 Hospital Medical Records [address] [place], [place] [id number] Social History Tobacco Use Types Packs/Day Years [...] on filedocumented in this encounter Care Teams Middle School Art Teacher Relationship Specialty Start Date End Date Ashwin Arzola MD [address] [place] [address] [phone] PCP - General Internal Medicine 08/01/20 Sotero Connell MD [address] [place] [address] [phone] Specialist Cardiology 07/10/21 Blanco Edwards NP [address] [place] [address] [phone] Specialist Cardiology 08/02/22 documented as of this encounter
--- OUTSIDE RECORDS SUMMARY | 2025-07-20 00:54 | XMS_ITS | Encounter Summary ---
Author Organization [facility] Address [address] [place] [address] Care Team Providers Care Countersinker Name Role Phone Name, Braulio CHIANG Primary Care Provider Unavailabl Dudley Mancuso MD Primary Care Provider Unavail able Ajit Montanez MD Primary Care Provide r Unavailable Sujey Browning MD Primary Care Provider Un available Dudley Brown MD Primary Care Provider Unavail able Nancy Vines DO Primary Care Pro vider Unavailable Ashwin Arzola MD Primary Care Provider [phone] Sujey Browning MD Primary Care Provider Un available Sotero Connell MD Unavailable [phone] Blanco Edwards NP Unavailable [phone] Encounter Details Date Type Department Care Team Description 11/30/2013 Release of Information Medical Records [address] [place] [address] 79014 Abstract, Provider Social History Tobacco Use Types [...] on filedocumented in this encounter Care Teams Countersinker Relationship Specialty Start Date End Date Name, [...] Internal Medicine 04/13/20 07/31/20 Ashwin Arzola MD [address] [place] [address] [phone] PCP - General Internal Medicine 08/01/20 Sujey Browning MD PCP - General 07/03/15 11/12/15 Sotero Connell MD [address] [place] [address] [phone] Specialist Cardiology 07/10/21 Blanco Edwards NP [address] [place] [address] 45802 Specialist Cardiology 08/02/22 documented as of this encounter
--- OUTSIDE RECORDS SUMMARY | 2025-07-20 00:54 | XMS_ITS | Encounter Summary ---
Author Organization [facility] Address [address] [place] [address] Care Team Providers Care Furnace Operator And Tender Name Role Phone Ashwin Arzola MD Primary Care Provider [phone] Sotero Connell MD Unavailable [phone] Blanco Edwards NP Unavailable [phone] Encounter Details Date Type Department Care Team Description 05/15/2023 Hospital Medical Records [address] [place] [address] Amber Duque MD [address] [place] [address] [phone] Social History Tobacco Use Types Packs/Day Years [...] on filedocumented in this encounter Care Teams Furnace Operator And Tender Relationship Specialty Start Date End Date Ashwin Arzola MD [address] [place] [address] PCP - General Internal Medicine 08/01/20 Sotero Connell MD [address] [place] [address] 01020 Specialist Cardiology 07/10/21 Blanco Edwards NP [address] [place] [address] Specialist Cardiology 08/02/22 documented as of this encounter
--- OUTSIDE RECORDS SUMMARY | 2025-07-20 00:54 | XMS_ITS | Encounter Summary ---
Author Organization [facility] Address [address] [place] [address] Care Team Providers Care Overhead Cleaner Maintainer Name Role Phone Sujey Browning MD Primary Care Provider Un available Dudley Brown MD Primary Care Provider Unavail able Nancy Vines DO Primary Care Pro vider Unavailable Ashwin Arzola MD Primary Care Provider [phone] Sotero Connell MD Unavailable [phone] Blanco Edwards NP Unavailable [phone] Reason for Visit * Reason Onset Date Comments Sat Act Instructor Feedback 12/17/2017 Home Care Encounter Details Date Type Department Care Team Description 12/17/2017 Telephone Adult Medicine [address] [address] Sujey Browning MD Sat Act Instructor Feedback (Home Care) Social History Tobacco Use [...] 12/17/2017 11:03 AM EST [facility] * Telephone Encounter - Dayami Galvin - 12/17/2017 10:45 AM EST BUDGET EXAMINER is checking the status of Home Health [...] on filedocumented in this encounter Care Teams Overhead Cleaner Maintainer Relationship Specialty Start Date End Date Sujey Browning MD PCP - General Internal Medicine 03/27/1608/02 Dudley Brown MD PCP - General Internal Medicine 08/03/19 04/12/20 Nancy Vines DO PCP - General Internal Medicine 04/13/20 07/31/20 Ashwin Arzola MD [address] [place] [address] PCP - General Internal Medicine 08/01/20 Sotero Connell MD [address] [place] [address] 9[address] Specialist Cardiology 07/10/21 Blanco Edwards NP [address] [place] [address] Specialist Cardiology 08/02/22 documented as of this encounter
--- OUTSIDE RECORDS SUMMARY | 2025-07-20 00:54 | XMS_ITS | Encounter Summary ---
Author Organization [facility] Address [address] [place] [address] Care Team Providers Care Training And Development Coordinator Name Role Phone Ashwin Arzola MD Primary Care Provider [phone] Sotero Connell MD Unavailable [phone] Blanco Edwards NP Unavailable [phone] Reason for Visit * Reason Onset Date Comments hospital follow up 01/01/2023 Encounter Details Date Type Department Care Team Description 01/01/2023 Telephone Adult Medicine [facility] [address] [place] [address] [phone] Ashwin Arzola MD [address] [place] [address] hospital follow up Social History Tobacco Use [...] appointment needed Hospital patient was treated at: [facility] Was this only an ER visit [...] on filedocumented in this encounter Care Teams Training And Development Coordinator Relationship Specialty Start Date End Date Ashwin Arzola MD [address] [place] [address] 91158 PCP - General Internal Medicine 08/01/20 Sotero Connell MD [address] [place] [address] Specialist Cardiology 07/10/21 Blanco Edwards NP [address] [place] [address] 99129 Specialist Cardiology 08/02/22 documented as of this encounter
--- OUTSIDE RECORDS SUMMARY | 2025-07-20 00:54 | XMS_ITS | Clinical Summary ---
Author Organization [facility] Address [address] [place] [phone] Phone Care Team Providers Care Substation Design Draftsperson Name Role Phone Unavailable Primary Care Provider [...] file Medical Devices Not on file [facility] REPLACEMENT [facility] MEDICARE REPLACEMENT MEDICARE REPLACEMENT [facility] MEDICARE REPLACEMENT [facility] MEDICARE REPLACEMENT [facility] MEDICARE REPLACEMENT Additional Source Comments The information contained in this document represents components of the legal health record. It is not the complete legal health record.[facility]
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
--- OUTSIDE RECORDS SUMMARY | 2025-07-20 00:54 | XMS_ITS | Encounter Summary ---
Author Organization [facility] Address [address] [place] [address] Care Team Providers Care Scada Technician Name Role Phone Ashwin Arzola MD Primary Care Provider [phone] Sotero Connell MD Unavailable [phone] Blanco Edwards NP Unavailable [phone] Encounter Details Date Type Department Care Team Description 10/20/2023 Hospital Medical Records [address] [place] [address] Social History Tobacco Use Types Packs/Day Years [...] on filedocumented in this encounter Care Teams Scada Technician Relationship Specialty Start Date End Date Ashwin Arzola MD [address] [place], [place] [phone] PCP - General Internal Medicine 08/01/20 Sotero Connell MD [address] [place], [place] [phone] Specialist Cardiology 07/10/21 Blanco Edwards NP [address] [place] [address] [phone] Specialist Cardiology 08/02/22 documented as of this encounter
--- OUTSIDE RECORDS SUMMARY | 2025-07-20 00:54 | XMS_ITS | Encounter Summary ---
Author Organization [facility] Address [address] [place] [address] Care Team Providers Care Rag Collector Name Role Phone Ashwin Arzola MD Primary Care Provider [phone] Sotero Connell MD Unavailable [phone] Blanco Edwards NP Unavailable [phone] Encounter Details Date Type Department Care Team Description 06/23/2023 Orders Only Medical Records [address] [place] [address] Abstract, Provider Social History Tobacco Use Types [...] on filedocumented in this encounter Care Teams Rag Collector Relationship Specialty Start Date End Date Ashwin Arzola MD [address] [place] [address] [phone] PCP - General Internal Medicine 08/01/20 Sotero Connell MD [address] [place] [address] Specialist Cardiology 07/10/21 Blanco Edwards NP [address] [place] [address] Specialist Cardiology 08/02/22 documented as of this encounter
--- OUTSIDE RECORDS SUMMARY | 2025-07-20 00:54 | XMS_ITS | Encounter Summary ---
Author Organization [facility] Address [address] [place] [address] Care Team Providers Care Die Engraver Name Role Phone Ashwin Arzola MD Primary Care Provider [phone] Sotero Connell MD Unavailable [phone] Blanco Edwards NP Unavailable [phone] Encounter Details Date Type Department Care Team Description 12/25/2020 Orders Only Medical Records [address] [place] [address] Amber Duque MD [address] [place], [place] [phone] Social History Tobacco Use Types Packs/Day Years [...] AM EDT documented as of this encounter Progress Notes * Caitlin Duuqe MD - 12/31/2020 1:37 PM EDT Dear Rishabh, The biopsies of your large intestine taken during the colonoscopy are within normal limits. Please follow up in order to discuss these findings with the referring physician at [facility] gastroenterology clinic. I would recommend a follow-up colonoscopy in 5 years. I would like to personally thank you for allowing us to take care of you. Please don't hesitate to call us for any questions or concerns. Regards, Dayan Duque MD Board Certified Gastroenterology and Internal Medicine Transplant Hepatology [facility] documented in this encounter Plan of Treatment Not on file documented as of this encounter Procedures Procedure Name Priority Date/Time Associated Diagnosis Comments OUTSIDE PATHOLOGY Routine 12/21/2020 documented in this encounter Results * OUTSIDE PATHOLOGY (12/21/2020) Amber Duque MD OUTSIDE LAB documented in this encounter Visit Diagnoses Not on filedocumented in this encounter Care Teams Die Engraver Relationship Specialty Start Date End Date Ashwin Arzola MD [address] [place] [address] PCP - General Internal Medicine 08/01/20 Sotero Connell MD [address] [place] [address]84 Specialist Cardiology 07/10/21 Blanco Edwards NP [address] [place] [address] [phone] Specialist Cardiology 08/02/22 documented as of this encounter
--- OUTSIDE RECORDS SUMMARY | 2025-07-20 00:54 | XMS_ITS | Encounter Summary ---
Author Organization [facility] Address [address] [place] [address] Care Team Providers Care Kitchen Clerk Name Role Phone Ashwin Arzola MD Primary Care Provider [phone] Sotero Connell MD Unavailable [phone] Blanco Edwards PRODUCT ARCHITECT Unavailable [phone] Encounter Details Date Type Department Care Team Description 12/06/2020 Old Medical Records Medical Records [address] [place] [address] Abstract, Provider Social History Tobacco Use Types [...] on filedocumented in this encounter Care Teams Kitchen Clerk Relationship Specialty Start Date End Date Ashwin Arzola MD [address] [place] [address] [phone] PCP - General Internal Medicine 08/01/20 Sotero Connell MD [address] [place] [address] Specialist Cardiology 07/10/21 Blanco Edwards NP [address] [place] [address]20 Specialist Cardiology 08/02/22 documented as of this encounter
--- OUTSIDE RECORDS SUMMARY | 2025-07-20 00:54 | XMS_ITS | Encounter Summary ---
Author Organization [facility] Address [address] [place] [address] Care Team Providers Care Manager Care Management Name Role Phone Ashwin Arzola MD Primary Care Provider [phone] Sotero Connell MD Unavailable [phone] Blanco Edwards NP Unavailable [phone] Encounter Details Date Type Department Care Team Description 03/05/2021 Telephone Adult Medicine [facility] [address] [place] [address] [phone] Ashwin Arzola MD [address] [place] [address] [phone] Social History Tobacco Use Types Packs/Day Years [...] filedocumented in this encounter Care Teams Manager Care Management Relationship Specialty Start Date End Date Ashwin Arzola MD [address] [place] [address] PCP - General Internal Medicine 08/01/20 Sotero Connell MD [address] [place] [address] Specialist Cardiology 07/10/21 Blanco Edwards NP [address] [place] [address] Specialist Cardiology 08/02/22 documented as of this encounter
--- OUTSIDE RECORDS SUMMARY | 2025-07-20 00:54 | XMS_ITS | Encounter Summary ---
Author Organization [facility] Address [address] [place] [address] Care Team Providers Care Engrosser Name Role Phone Name, Braulio CHIANG Primary Care Provider Unavailabl Dudley Mancuso MD Primary Care Provider Unavail able Ajit Montanez MD Primary Care Provide r Unavailable Sujey Browning MD Primary Care Provider Un available Dudley Brown MD Primary Care Provider Unavail able Nancy Vines DO Primary Care Pro vider Unavailable Ashwin Arzola MD Primary Care Provider [phone] Sujey Browning MD Primary Care Provider Un available Sotero Connell MD Unavailable [phone] Blanco Edwards NP Unavailable [phone] Encounter Details Date Type Department Care Team Description 02/19/2012 Telephone Adult Medicine [address] [phone] Name, MD Braulio Social History Tobacco Use [...] on filedocumented in this encounter Care Teams Engrosser Relationship Specialty Start Date End Date Name, [...] Medicine 04/13/20 07/31/20 Ashwin Arzola MD [address] [place] [address] PCP - General Internal Medicine 08/01/20 Sujey Browning MD PCP - General 07/03/15 11/12/15 Sotero Connell MD [address] [place] [address]447 Specialist Cardiology 07/10/21 Blanco Edwards NP [address] [place] [address] 68[address] Specialist Cardiology 08/02/22 documented as of this encounter
--- OUTSIDE RECORDS SUMMARY | 2025-07-20 00:54 | XMS_ITS | Encounter Summary ---
Author Organization [facility] Address [address] [place] [address] Care Team Providers Care Cheese Factory Worker Name Role Phone Ashwin Arzola MD Primary Care Provider [phone] Sotero Connell MD Unavailable [phone] Blanco Edwards NP Unavailable [phone] Encounter Details Date Type Department Care Team Description 12/14/2020 Orders Only Adult Medicine [address] [place] [address] [address] Willow Monique PA-C LLQ pain; BRBPR (bright [...] Monique PA-C CT SCANS Performing Organization Address City/State/[facility] Co de Phone Number [facility] [address] [place] [address] documented in this encounter Visit Diagnoses Diagnosis LLQ pain Abdominal pain, left lower quadrant BRBPR (bright red blood per rectum) Hemorrhage of rectum and anus documented in this encounter Care Teams Cheese Factory Worker Relationship Specialty Start Date End Date Ashwin Arzola MD [address] [place] [address] PCP - General Internal Medicine 08/01/20 Sotero Connell MD [address] [place] [address] 8[address]68 Specialist Cardiology 07/10/21 Blanco Edwards NP [address] [place] [address] [phone] Specialist Cardiology 08/02/22 documented as of this encounter
--- OUTSIDE RECORDS SUMMARY | 2025-07-20 00:54 | XMS_ITS | Encounter Summary ---
Author Organization [facility] Address [address] [place] [address] Care Team Providers Care Molder Foam Rubber Name Role Phone Ashwin Arzola MD Primary Care Provider [phone] Sotero Connell MD Unavailable [phone] Blanco Edwards NP Unavailable [phone] Reason for Visit * Reason Onset Date Comments Testing 03/01/2021 MRI OF BRAIN WIT H AND WITHOUT CONTRAST Encounter Details Date Type Department Care Team Description 03/01/2021 Telephone Adult Medicine [facility] [address] [place] [address] [phone] Ashwin Arzola MD [address] [place] [address] Testing (MRI OF BRAIN WITH AND WITHOUT [...] on filedocumented in this encounter Care Teams Molder Foam Rubber Relationship Specialty Start Date End Date Ashwin Arzola MD [address] [place] [address] PCP - General Internal Medicine 08/01/20 Sotero Connell MD [address] [place] [address] 64722 Specialist Cardiology 07/10/21 Blanco Edwards NP [address] [place] [address] Specialist Cardiology 08/02/22 documented as of this encounter
--- OUTSIDE RECORDS SUMMARY | 2025-07-20 00:54 | XMS_ITS | Encounter Summary ---
Author Organization [facility] Address [address] [place] [address] Care Team Providers Care Managing Broker Name Role Phone Sujey Browning MD Primary Care Provider Un available Dudley Brown MD Primary Care Provider Unavail able Nancy Vines DO Primary Care Pro vider Unavailable Ashwin Arzola MD Primary Care Provider [phone] Sotero Connell MD Unavailable [phone] Blanco Edwards NP Unavailable [phone] Reason for Visit * Reason Onset Date Comments Toe Pain 12/30/2017 Nail Problem, Toes 12/30/2017 Encounter Details Date Type Department Care Team Description 12/30/2017 Telephone Podiatry - [address] [address] Nicol Alston DPM Toe Pain; Nail Problem, [...] 12/30/2017 11:33 AM EDT I spoke to [facility] and she said pt does not [...] 12/30/2017 11:02 AM EDT I spoke to [facility] and told her Dr. Alston has no openings for today. Pt has her scheduled appt for tomorrow at 9:30am. In the mean time pt should keep foot elevated and ice it. Injury to right 4th toe, do you want her to have x rays? Please advise. * Telephone Encounter - Gloria Jane - 12/30/2017 10:09 AM EDT Sidra patient's CRIME SCENE SPECIALIST (verbal release on file) calling stating that [...] on filedocumented in this encounter Care Teams Managing Broker Relationship Specialty Start Date End Date Sujey Browning MD PCP - General Internal Medicine 03/27/1608/02 Dudley Brown MD PCP - General Internal Medicine 08/03/19 04/12/20 Nancy Vines DO PCP - General Internal Medicine 04/13/20 07/31/20 Ashwin Arzola MD [address] [place] [address] PCP - General Internal Medicine 08/01/20 Sotero Connell MD [address] [place] [address]20 Specialist Cardiology 07/10/21 Blanco Edwards NP [address] [place] [address]20 Specialist Cardiology 08/02/22 documented as of this encounter
--- OUTSIDE RECORDS SUMMARY | 2025-07-20 00:54 | XMS_ITS | Encounter Summary ---
Author Organization [facility] Address [address] [place] [address] Care Team Providers Care Aquaculture Worker Name Role Phone Sujey Browning MD Primary Care Provider Un available Dudley Brown MD Primary Care Provider Unavail able Nancy Vines DO Primary Care Pro vider Unavailable Ashwin Arzola MD Primary Care Provider [phone] Sotero Connell MD Unavailable [phone] [facility] Unavailable [phone] Encounter Details Date Type Department Care Team Description 08/14/2016 [facility] Only Adult [address] [address] Sujey Browning MD Social History Tobacco Use [...] on filedocumented in this encounter Care Teams Aquaculture Worker Relationship Specialty Start Date End Date Sujey Browning MD PCP - General Internal Medicine 03/27/1608/02 Dudley Brown MD PCP - General Internal Medicine 08/03/19 04/12/20 Nancy Vines DO PCP - General Internal Medicine 04/13/20 07/31/20 Ashwin Arzola MD [address] [place] [address] 19473 PCP - General Internal Medicine 08/01/20 Sotero Connell MD [address] [place], [place] [phone] Specialist Cardiology 07/10/21 Blanco Edwards NP [address] [place], [place] [phone] Specialist Cardiology 08/02/22 documented as of this encounter
--- OUTSIDE RECORDS SUMMARY | 2025-07-20 00:54 | XMS_ITS | Encounter Summary ---
Author Organization [facility] Address [address] [place] [address] Care Team Providers Care Vision Rehabilitation Therapist Name Role Phone Ajit Montanez MD Primary Care Provide r Unavailable Sujey Browning MD Primary Care Provider Un available Dudley Brown MD Primary Care Provider Unavail able Nancy Vines DO Primary Care Pro vider Unavailable Ashwin Arzola MD Primary Care Provider [phone] Sotero Connell MD Unavailable [phone] Blanco Edwards NP Unavailable [phone] Reason for Visit * Reason Comments E-prescribe Rx Request Encounter Details Date Type Department Care Team Description 12/03/2015 Refill Adult Medicine [address] [address] Name, MD Braulio E-prescribe Rx Request Social [...] further refills to come from PCP at [facility] * Telephone Encounter - Deepti Early [...] on filedocumented in this encounter Care Teams Vision Rehabilitation Therapist Relationship Specialty Start Date End Date Ajit Montanez MD PCP - General Internal Medicine 12/01/15 Sujey Browning MD PCP - General Internal Medicine 03/27/1608/02 Dudley Brown MD PCP - General Internal Medicine 08/03/19 04/12/20 Nancy Vines DO PCP - General Internal Medicine 04/13/20 07/31/20 Ashwin Arzola MD [address] [place] [address] PCP - General Internal Medicine 08/01/20 Sotero Connell MD [address] [place] [address] Specialist Cardiology 07/10/21 Blanco Edwards NP [address] [place] [address] Specialist Cardiology 08/02/22 documented as of this encounter
--- OUTSIDE RECORDS SUMMARY | 2025-07-20 00:54 | XMS_ITS | Encounter Summary ---
Author Organization [facility] Address [address] [place] [address] Care Team Providers Care Mechanical Engineering Intern Name Role Phone Sujey Browning MD Primary Care Provider Un available Dudley Brown MD Primary Care Provider Unavail able Nancy Vines DO Primary Care Pro vider Unavailable Ashwin Arzola MD Primary Care Provider [phone] Sotero Connell MD Unavailable [phone] [facility] Un[facility] [phone] Encounter Details Date Type Department Care Team Description 05/07/2016 Hospital Medical Records [address] [place] [address] Adolfo Reyes MD Social History Tobacco Use [...] on filedocumented in this encounter Care Teams Mechanical Engineering Intern Relationship Specialty Start Date End Date Sujey Browning MD PCP - General Internal Medicine 03/27/1608/02 Dudley Brown MD PCP - General Internal Medicine 08/03/19 04/12/20 Nancy Vines DO PCP - General Internal Medicine 04/13/20 07/31/20 Ashwin Arzola MD [address] [place] [address] [phone] PCP - General Internal Medicine 08/01/20 Sotero Connell MD [address] [place] [address] [phone] Specialist Cardiology 07/10/21 Blanco Edwards NP [address] [place] [address] [phone] Specialist Cardiology 08/02/22 documented as of this encounter
--- OUTSIDE RECORDS SUMMARY | 2025-07-20 00:54 | XMS_ITS | Encounter Summary ---
Author Organization [facility] Address [address] [place] [address] Care Team Providers Care Oven Dumper Name Role Phone Sujey Browning MD Primary Care Provider Un available Dudley Brown MD Primary Care Provider Unavail able Nancy Vines DO Primary Care Pro vider Unavailable Ashwin Arzola MD Primary Care Provider [phone] Sotero Connell MD Unavailable [phone] Blanco Edwards NP Unavailable [phone] Reason for Visit * Reason Onset Date Comments Faxed Order 07/25/2016 Encounter Details Date Type Department Care Team Description 07/25/2016 Telephone Adult Medicine [address] [address] Sujey Browning MD Faxed Order Social History [...] to be signed and fax back to [phone]. documented in this encounter Plan of Treatment Not on file documented as of this encounter Visit Diagnoses Not on filedocumented in this encounter Care Teams Oven Dumper Relationship Specialty Start Date End Date Sujey Browning MD PCP - General Internal Medicine 03/27/1608/02 Dudley Brown MD PCP - General Internal Medicine 08/03/19 04/12/20 Nancy Vines DO PCP - General Internal Medicine 04/13/20 07/31/20 Ashwin Arzola MD [address] [place] [address] [phone] PCP - General Internal Medicine 08/01/20 Sotero Connell MD [address] [place] [address] [phone] Specialist Cardiology 07/10/21 Blanco Edwards NP [address] [place] [address] [phone] Specialist Cardiology 08/02/22 documented as of this encounter
--- OUTSIDE RECORDS SUMMARY | 2025-07-20 00:54 | XMS_ITS | Encounter Summary ---
Author Organization [facility] Address [address] [place] [address] Care Team Providers Care Aerotriangulation Specialist Name Role Phone Name, Braulio CHIANG Primary Care Provider Unavailabl Dudley Mancuso MD Primary Care Provider Unavail able Ajit Montanez MD Primary Care Provide r Unavailable Sujey Browning MD Primary Care Provider Un available Dudley Brown MD Primary Care Provider Unavail able Nancy Vines DO Primary Care Pro vider Unavailable Ashwin Arzola MD Primary Care Provider [phone] Sujey Browning MD Primary Care Provider Un available Sotero Connell MD Unavailable [phone] Blanco Edwards NP Unavailable [phone] Encounter Details Date Type Department Care Team Description 04/06/2012 Orders Only Adult Medicine [address] [address] Britt Flores NP Social History Tobacco Use [...] on filedocumented in this encounter Care Teams Aerotriangulation Specialist Relationship Specialty Start Date End Date [...] Medicine 04/13/20 07/31/20 Ashwin Arzola MD [address] [place] [address] PCP - General Internal Medicine 08/01/20 Sujey Browning MD PCP - General 07/03/15 11/12/15 Sotero Connell MD [address] [place] [address] Specialist Cardiology 07/10/21 Blanco Edwards NP [address] [place] [address] Specialist Cardiology 08/02/22 documented as of this encounter
--- OUTSIDE RECORDS SUMMARY | 2025-07-20 00:54 | XMS_ITS | Encounter Summary ---
Author Organization [facility] Address [address] [place] [address] Care Team Providers Care Human Resources Training Manager Name Role Phone Ashwin Arzola MD Primary Care Provider [phone] Sotero Connell MD Unavailable [phone] Blanco Edwards NP Unavailable [phone] Encounter Details Date Type Department Care Team Description 02/27/2021 SCAN Medical Records [address] [place] [address] Ashwin Arzola MD [address] [place] [address] [phone] Social History Tobacco Use Types Packs/Day Years [...] Name Priority Date/Time Associated Diagnosis Comments OUTSIDE MRI/MRA Routine 02/27/2021 documented in this encounter Results * OUTSIDE MRI/MRA (02/27/2021) Provider Default RADIOLOGY documented in this encounter Visit Diagnoses Not on filedocumented in this encounter Care Teams Human Resources Training Manager Relationship Specialty Start Date End Date Ashwin Arzola MD [address] [place] [address] PCP - General Internal Medicine 08/01/20 Sotero Connell MD [address] [place], [place] [phone] Specialist Cardiology 07/10/21 Blanco Edwards NP [address] [place] [address] Specialist Cardiology 08/02/22 documented as of this encounter
--- OUTSIDE RECORDS SUMMARY | 2025-07-20 00:54 | XMS_ITS | Encounter Summary ---
Author Organization [facility] Address [address] [place] [address] Care Team Providers Care Goat Herder Name Role Phone Sujey Browning MD Primary Care Provider Un available Dudley Brown MD Primary Care Provider Unavail able Nancy Vines DO Primary Care Pro vider Unavailable Ashwin Arzola MD Primary Care Provider [phone] Sotero Connell MD Unavailable [phone] [facility] Unavailable [phone] Encounter Details Date Type Department Care Team Description 03/13/2018 Marketing Producer Report Medical Records [address] [place] [address] Abstract, Provider Social History Tobacco Use Types [...] on filedocumented in this encounter Care Teams Goat Herder Relationship Specialty Start Date End Date Sujey Browning MD PCP - General Internal Medicine 03/27/1608/02 Dudley Brown MD PCP - General Internal Medicine 08/03/19 04/12/20 Nancy Vines DO PCP - General Internal Medicine 04/13/20 07/31/20 Ashwin Arzola MD [address] [place] [address] [phone] PCP - General Internal Medicine 08/01/20 Sotero Connell MD [address] [place] [address] Specialist Cardiology 07/10/21 Blanco Edwards NP [address] [place] [address] [phone] Specialist Cardiology 08/02/22 documented as of this encounter
--- OUTSIDE RECORDS SUMMARY | 2025-07-20 00:55 | XMS_ITS | Encounter Summary ---
Author Organization [facility] Address [address] [place] [address] Care Team Providers Care Digester Operator Helper Name Role Phone Sujey Browning MD Primary Care Provider Un available Dudley Brown MD Primary Care Provider Unavail able Nancy Vines DO Primary Care Pro vider Unavailable Ashwin Arzola MD Primary Care Provider [phone] Sotero Connell MD Unavailable [phone] [facility] Unavailable [phone] Reason for Visit * Reason Comments E-prescribe Rx Request Encounter Details Date Type Department Care Team Description 01/12/2019 Refill Adult Medicine [address] [address] Sjuey Browning MD E-prescribe Rx Request Social History [...] N/A Patients current insurance carrier is: Payor: [employer] / Plan: [employer] / Product Type: MEDICAID RISK documented in this encounter Plan of Treatment Not on file documented as of this encounter Visit Diagnoses Not on filedocumented in this encounter Care Teams Digester Operator Helper Relationship Specialty Start Date End Date Sujey Browning MD PCP - General Internal Medicine 03/27/1608/02 Dudley Brown MD PCP - General Internal Medicine 08/03/19 04/12/20 Nancy Vines DO PCP - General Internal Medicine 04/13/20 07/31/20 Ashwin Arzola MD [address] [place] [address] PCP - General Internal Medicine 08/01/20 Sotero Connell MD [address] [place] [address] Specialist Cardiology 07/10/21 Blanco Edwards NP [address] [place] [address] Specialist Cardiology 08/02/22 documented as of this encounter
--- OUTSIDE RECORDS SUMMARY | 2025-07-20 00:55 | XMS_ITS | Encounter Summary ---
Author Organization [facility] Address [address] [place] [address] Care Team Providers Care Cash Management Clerk Name Role Phone Name, Braulio CHIANG Primary Care Provider Unavailabl Dudley Mancuso MD Primary Care Provider Unavail able Ajit Montanez MD Primary Care Provide r Unavailable Sujey Browning MD Primary Care Provider Un available Dudley Brown MD Primary Care Provider Unavail able Nancy Vines DO Primary Care Pro vider Unavailable Ashwin Arzola MD Primary Care Provider [phone] Sujey Browning MD Primary Care Provider Un available Sotero Connell MD Unavailable [phone] Blanco Edwards NP Unavailable [phone] Reason for Visit * Reason Onset Date Comments Letter 02/27/2015 Encounter Details Date Type Department Care Team Description 02/27/2015 Telephone Adult [address] [address] Name, MD Braulio Letter Social History Tobacco [...] as soon as possible. When completed: Will cook pickled meat-call when completed: documented in this encounter Plan of Treatment Not on file documented as of this encounter Visit Diagnoses Not on filedocumented in this encounter Care Teams Cash Management Clerk Relationship Specialty Start Date End Date Name, [...] Internal Medicine 04/13/20 07/31/20 Ashwin Arzola MD [address] [place] [address] PCP - General Internal Medicine 08/01/20 Sujey Browning MD PCP - General 07/03/15 11/12/15 Sotero Connell MD [address] [place] [address] Specialist Cardiology 07/10/21 Blanco Edwards NP [address] [place], [place] [phone] Specialist Cardiology 08/02/22 documented as of this encounter
--- OUTSIDE RECORDS SUMMARY | 2025-07-20 00:55 | XMS_ITS | Encounter Summary ---
Author Organization [facility] Address [address] [place] [address] Care Team Providers Care Turner Off Name Role Phone Ashwin Arzola MD Primary Care Provider Sotero Connell MD Unavailable [phone] Blanco Edwards NP Unavailable [phone] Reason for Visit * Reason Onset Date Comments Faxed Order 07/23/2024 [facility] er # [id number] Encounter Details Date Type Department Care Team Description 07/23/2024 Telephone Adult Medicine [address] [address] Ashwin Arzola MD [address] [place] [address] Faxed Order ([facility] Order # [id number]) Social History Tobacco Use Types Packs/Day Years [...] faxed order from [facility] Order # [id number]. Please sign, date, and fax back to [phone] documented in this encounter Plan of Treatment Not on file documented as of this encounter Visit Diagnoses Not on filedocumented in this encounter Care Teams Turner Off Relationship Specialty Start Date End Date Ashwin Arzola MD [address] [place] [address] PCP - General Internal Medicine 08/01/20 Sotero Connell MD [address] [place] [address] Specialist Cardiology 07/10/21 Blanco Edwards NP [address] [place] [address] Specialist Cardiology 08/02/22 documented as of this encounter
--- OUTSIDE RECORDS SUMMARY | 2025-07-20 00:55 | XMS_ITS | Encounter Summary ---
Author Organization [facility] Address [address] [place] [address] Care Team Providers Care Adult Care Manager Name Role Phone Dudley Brown MD Primary Care Provider Unavail able Ajit Montanez MD Primary Care Provide r Unavailable Sujey Browning MD Primary Care Provider Un available Dudley Brown MD Primary Care Provider Unavail able Nancy Vines DO Primary Care Pro vider Unavailable Ashwin Arzola MD Primary Care Provider Sujey Browning MD Primary Care Provider Un available Sotero Connell MD Unavailable [phone] Blanco Edwards NP Unavailable [phone] Encounter Details Date Type Department Care Team Description 08/28/2015 Tax Examiner Report Medical Records [address] [place] [address] Erik Langford MD Social History Tobacco Use [...] filedocumented in this encounter Care Teams Adult Care Manager Relationship Specialty Start Date End Date Dudley Brown MD PCP - General Internal Medicine 11/13/15 11/30/15 Ajit Montanez MD PCP - General Internal Medicine 12/01/15 Sujey Browning MD PCP - General Internal Medicine 03/27/1608/02 Dudley Brown MD PCP - General Internal Medicine 08/03/19 04/12/20 Nancy Vines DO PCP - General Internal Medicine 04/13/20 07/31/20 Ashwin Arzola MD [address] [place] [address] [phone] PCP - General Internal Medicine 08/01/20 Sujey Browning MD PCP - General 07/03/15 11/12/15 Sotero Connell MD [address] [place] [address] [phone] Specialist Cardiology 07/10/21 Blanco Edwards NP [address] [place] [address] [phone] Specialist Cardiology 08/02/22 documented as of this encounter
--- OUTSIDE RECORDS SUMMARY | 2025-07-20 00:55 | XMS_ITS | Encounter Summary ---
Author Organization [facility] Address [address] [place] [address] Care Team Providers Care Jacquard Fixer Name Role Phone Ashwin Arzola MD Primary Care Provider [phone] Sotero Connell MD Unavailable [phone] Blanco Edwards NP Unavailable [phone] Reason for Visit * Reason Onset Date Comments Faxed Order 08/05/2024 Orders # [id number], and order # [id number] received from [facility]. Encounter Details Date Type Department Care Team Description 08/05/2024 Telephone Adult Medicine [address] [address] Ashwin Arzola MD [address] [place] [address] Faxed Order (Orders # [id number], and order # [id number] received from [facility]. ) Social History Tobacco Use Types Packs/Day [...] - 08/05/2024 2:49 PM EDT Orders # [id number], and order # [id number] received from [facility]. Please review date and sign. Placed in pcp's bin. documented in this encounter Plan of Treatment Not on file documented as of this encounter Visit Diagnoses Not on filedocumented in this encounter Care Teams Jacquard Fixer Relationship Specialty Start Date End Date Ashwin Arzola MD [address] [place] [address] PCP - General Internal Medicine 08/01/20 Sotero Connell MD [address] [place] [address] Specialist Cardiology 07/10/21 Blanco Edwards NP [address] [place] [address] Specialist Cardiology 08/02/22 documented as of this encounter
--- OUTSIDE RECORDS SUMMARY | 2025-07-20 00:55 | XMS_ITS | Encounter Summary ---
Author Organization [facility] Address [address] [place] [address] Care Team Providers Care Scout Executive Name Role Phone Sujey Browning MD Primary Care Provider Un available Dudley Brown MD Primary Care Provider Unavail able Nancy Vines DO Primary Care Pro vider Unavailable Ashwin Arzola MD Primary Care Provider [phone] Sotero Connell MD Unavailable [phone] Blanco Edwards NP Unavailable [phone] Reason for Visit * Reason Comments E-prescribe Rx Request Encounter Details Date Type Department Care Team Description 02/24/2019 Refill Adult Medicine [address] [phone] Sujey Browning MD E-prescribe Rx Request Social [...] N/A Patients current insurance carrier is: Payor: [employer] FFS / Plan: [employer] / Product Type: MEDICAID RISK documented in this encounter Plan of Treatment Not on file documented as of this encounter Visit Diagnoses Not on filedocumented in this encounter Care Teams Scout Executive Relationship Specialty Start Date End Date Sujey Browning MD PCP - General Internal Medicine 03/27/1608/02 Dudley Brown MD PCP - General Internal Medicine 08/03/19 04/12/20 Nancy Vines DO PCP - General Internal Medicine 04/13/20 07/31/20 Ashwin Arzola MD [address] [place], [place] [phone] PCP - General Internal Medicine 08/01/20 Sotero Connell MD [address] [place] [address] [phone] Specialist Cardiology 07/10/21 Blanco Edwards NP [address] [place], [place] [phone] Specialist Cardiology 08/02/22 documented as of this encounter
--- OUTSIDE RECORDS SUMMARY | 2025-07-20 00:55 | XMS_ITS | Encounter Summary ---
Author Organization [facility] Address [address] [place] [address] Care Team Providers Care Glass Presser Name Role Phone Ashwin Arzola MD Primary Care Provider [phone] Sotero Connell MD Unavailable [phone] Blanco Edwards NP Unavailable [phone] Encounter Details Date Type Department Care Team Description 02/28/2024 Home Health Certification Medical Records [address] [place] [address] Scott Lawson Social History Tobacco Use Types [...] filedocumented in this encounter Care Teams Glass Presser Relationship Specialty Start Date End Date Ashwin Arzola MD [address] [place] [address] [phone] PCP - General Internal Medicine 08/01/20 Sotero Connell MD [address] [place] [address] [phone] Specialist Cardiology 07/10/21 Blanco Edwards NP [address] [place] [address] [phone] Specialist Cardiology 08/02/22 documented as of this encounter
--- OUTSIDE RECORDS SUMMARY | 2025-07-20 00:55 | XMS_ITS | Encounter Summary ---
Author Organization [facility] Address [address] [place] [address] Care Team Providers Care Nuclear Cardiology Technologist Name Role Phone Nancy Vines DO Primary Care Pro vider Unavailable Ashwin Arzola MD Primary Care Provider [phone] Sotero Connell MD Unavailable [phone] Blanco Edwards NP Unavailable [phone] Encounter Details Date Type Department Care Team Description 07/13/2020 Personal Development Mentor Report Medical Records [address] [place] [address] Maty Espinoza II Social History Tobacco Use [...] filedocumented in this encounter Care Teams Nuclear Cardiology Technologist Relationship Specialty Start Date End Date Nancy Vines DO PCP - General Internal Medicine 04/13/20 07/31/20 Ashwin Arzola MD [address] [place] [address] [phone] PCP - General Internal Medicine 08/01/20 Sotero Connell MD [address] [place] [address] [place] [address] Specialist Cardiology 07/10/21 Blanco Edwards NP [address] [place] [address] Specialist Cardiology 08/02/22 documented as of this encounter
--- OUTSIDE RECORDS SUMMARY | 2025-07-20 00:55 | XMS_ITS | Encounter Summary ---
Author Organization [facility] Address [address] [place] [address] Care Team Providers Care Oil Well Services Field Supervisor Name Role Phone Ashwin Arzola MD Primary Care Provider [phone] Sotero Connell MD Unavailable Blanco Edwards NP Unavailable [phone] Encounter Details Date Type Department Care Team Description 05/14/2024 Home Health Certification Medical Records [address] [place] [address] Caregivers, [facility] [address] [facility] [address] [place] [address] Social History Tobacco Use Types Packs/Day Years [...] filedocumented in this encounter Care Teams Oil Well Services Field Supervisor Relationship Specialty Start Date End Date Ashwin Arzola MD [address] [place] [address] [phone] PCP - General Internal Medicine 08/01/20 Sotero Connell MD [address] [place] [address] [phone] Specialist Cardiology 07/10/21 Blanco Edwards NP [address] [place] [address] [phone] Specialist Cardiology 08/02/22 documented as of this encounter
--- OUTSIDE RECORDS SUMMARY | 2025-07-20 00:55 | XMS_ITS | Encounter Summary ---
Author Organization [facility] Address [address] [place] [address] Care Team Providers Care Poacher Operator Name Role Phone Name, Braulio CHIANG Primary Care Provider Unavailabl e Dudley Brown MD Primary Care Provider Unavail able Ajit Montanez MD Primary Care Provide r Unavailable Sujey Browning MD Primary Care Provider Un available Dudley Brown MD Primary Care Provider Unavail able Nancy Vines DO Primary Care Pro vider Unavailable Ashwin Arzola MD Primary Care Provider [phone] Sujey Browning MD Primary Care Provider Un available Sotero Connell MD Unavailable [phone] Blanco Edwards NP Unavailable [phone] Encounter Details Date Type Department Care Team Description 07/27/2014 Pbx Teacher Report Medical Records [address] [place], [place] [address] [place] [address], [facility] Social History Tobacco Use Types Packs/Day [...] on filedocumented in this encounter Care Teams Poacher Operator Relationship Specialty Start Date End Date [...] Medicine 04/13/20 07/31/20 Ashwin Arzola MD [address] [place] [address] [phone] PCP - General Internal Medicine 08/01/20 Sujey Browning MD PCP - General 07/03/15 11/12/15 Sotero Connell MD [address] [place] [address] [phone] Specialist Cardiology 07/10/21 Blanco Edwards NP [address] [place] [address] Specialist Cardiology 08/02/22 documented as of this encounter
--- OUTSIDE RECORDS SUMMARY | 2025-07-20 00:55 | XMS_ITS | Encounter Summary ---
Author Organization [facility] Address [address] [place] [address] Care Team Providers Care Greige Goods Examiner Name Role Phone Ashwin Arzola MD Primary Care Provider [phone] Sotero Connell MD Unavailable [phone] Blanco Edwards NP Unavailable [phone] Encounter Details Date Type Department Care Team Description 09/02/2020 Hospital Medical Records [address] [place] [address] Shaheen Tinajero MD, MD Social History Tobacco [...] on filedocumented in this encounter Care Teams Greige Goods Examiner Relationship Specialty Start Date End Date Ashwin Arzola MD [address] [place] [address] PCP - General Internal Medicine 08/01/20 Sotero Connell MD [address] [place] [address] Specialist Cardiology 07/10/21 Blanco Edwards NP [address] [place] [address] [phone] Specialist Cardiology 08/02/22 documented as of this encounter
--- OUTSIDE RECORDS SUMMARY | 2025-07-20 00:55 | XMS_ITS | Encounter Summary ---
Author Organization [facility] Address [address] [place] [address] Care Team Providers Care Botany Laboratory Assistant Name Role Phone Sujey Browning MD Primary Care Provider Un available Dudley Brown MD Primary Care Provider Unavail able Nancy Vines DO Primary Care Pro vider Unavailable Ashwin Arzola MD Primary Care Provider [phone] Sotero Connell MD Unavailable [phone] Blanco Edwards NP Unavailable [phone] Reason for Visit * Reason Comments E-prescribe Rx Request Encounter Details Date Type Department Care Team Description 07/15/2018 Refill OBGYN - [place] [address] [place] [address] Clare Simon MD [address] [place] [address] [phone] E-prescribe Rx Request Social History Tobacco Use [...] EDT WHEN WAS THE PATIENTS LAST ANNUAL CONTINUOUS MINER EXAM? 05-18-18 Does patient have an upcoming [...] the end of the day? NO Payor: [employer] FFS / Plan: [employer] / Product Type: MEDICAID RISK documented in this encounter Plan of Treatment Not on file documented as of this encounter Visit Diagnoses Diagnosis Vulvar atrophy Atrophy of vulva Vaginal atrophy Postmenopausal atrophic vaginitis documented in this encounter Care Teams Botany Laboratory Assistant Relationship Specialty Start Date End Date Sujey Browning MD PCP - General Internal Medicine 03/27/1608/02 Dudley Brown MD PCP - General Internal Medicine 08/03/19 04/12/20 Nancy Vines DO PCP - General Internal Medicine 04/13/20 07/31/20 Ashwin Arzola MD [address] [place] [address] PCP - General Internal Medicine 08/01/20 Sotero Connell MD [address] [place] [address] [phone] Specialist Cardiology 07/10/21 Blanco Edwards NP [address] [place] [address] [phone] Specialist Cardiology 08/02/22 documented as of this encounter
--- OUTSIDE RECORDS SUMMARY | 2025-07-20 00:55 | XMS_ITS | Encounter Summary ---
Author Organization [facility] Address [address] [place] [address] Care Team Providers Care Track Oiler Name Role Phone Dudley Brown MD Primary Care Provider Unavail able Nancy Vines DO Primary Care Pro vider Unavailable Ashwin Arzola MD Primary Care Provider [phone] Sotero Connell MD Unavailable [phone] Blanco Edwards NP Unavailable [phone] Encounter Details Date Type Department Care Team Description 01/21/2020 Refill Adult Medicine [address] [phone] Dudley Brown MD Social History Tobacco Use [...] on filedocumented in this encounter Care Teams Track Oiler Relationship Specialty Start Date End Date Dudley Brown MD PCP - General Internal Medicine 08/03/19 04/12/20 Nancy Vines DO PCP - General Internal Medicine 04/13/20 07/31/20 Ashwin Arzola MD [address] [place] [address] PCP - General Internal Medicine 08/01/20 Sotero Connell MD [address] [place] [address] [phone] Specialist Cardiology 07/10/21 Blanco Edwards NP 4 [facility] JUSTA Patel [phone] Specialist Cardiology 08/02/22 documented as of this encounter
--- OUTSIDE RECORDS SUMMARY | 2025-07-20 00:55 | XMS_ITS | Encounter Summary ---
Author Organization [facility] Address [address] [place] [address] Care Team Providers Care Air Support Operations Operator Name Role Phone Name, Braulio CHIANG Primary Care Provider Unavailabl e Dudley Brown MD Primary Care Provider Unavail able Ajit Montanez MD Primary Care Provide r Unavailable Sujey Browning MD Primary Care Provider Un available Dudley Brown MD Primary Care Provider Unavail able Nancy Vines DO Primary Care Pro vider Unavailable Ashwin Arzola MD Primary Care Provider [phone] Sujey Browning MD Primary Care Provider Un available Sotero Connell MD Unavailable [phone] Blanco Edwards NP Unavailable [phone] Reason for Visit * Reason Comments E-prescribe Rx Request Encounter Details Date Type Department Care Team Description 07/11/2014 Refill Adult Medicine [address] [phone] Name, MD Braulio E-prescribe Rx Request Social [...] NO Patients current insurance carrier is: Payor: [employer] FFS / Plan: FFS HMO $0 [place] [id number] / Product Type: MEDICAID RISK documented in this encounter Plan of Treatment Not on file documented as of this encounter Visit Diagnoses Not on filedocumented in this encounter Care Teams Air Support Operations Operator Relationship Specialty Start Date End Date [...] Medicine 04/13/20 07/31/20 Ashwin Arzola MD [address] [address] 85781 PCP - General Internal Medicine 08/01/20 Sujey Browning MD PCP - General 07/03/15 11/12/15 Sotero Connell MD [address] [place] [address] 40475 Specialist Cardiology 07/10/21 Blnaco Edwards NP [address] [place] [address] 90660 Specialist Cardiology 08/02/22 documented as of this encounter
--- OUTSIDE RECORDS SUMMARY | 2025-07-20 00:55 | XMS_ITS | Encounter Summary ---
Author Organization [facility] Address [address] [place] [address] Care Team Providers Care Blue Split Trimmer Name Role Phone Ashwin Arzola MD Primary Care Provider [phone] Sotero Connell MD Unavailable [phone] Blanco Edwards NP Unavailable [phone] Reason for Visit * Reason Onset Date Comments Faxed Order 06/16/2024 [facility] / Order # [id number] Encounter Details Date Type Department Care Team Description 06/16/2024 Telephone Adult Medicine [address] [phone] Ashwin Arzola MD [address] [place] [address] Faxed Order ([facility] / Order # [id number]) Social History Tobacco Use Types Packs/Day Years [...] 06/16/2024 2:34 PM EDT Faxed Order # [id number] From: [facility] Date:05/21/2024 To be reviewed, signed and faxed back to [phone] Placed in provider's bin documented in this encounter Plan of Treatment Not on file documented as of this encounter Visit Diagnoses Not on filedocumented in this encounter Care Teams Blue Split Trimmer Relationship Specialty Start Date End Date Ashwin Arzola MD [address] [place] [address] [phone] PCP - General Internal Medicine 08/01/20 Sotero Connell MD [address] [place] [address] [phone] Specialist Cardiology 07/10/21 Blanco Edwards NP [address] [place] [address] [phone] Specialist Cardiology 08/02/22 documented as of this encounter
--- OUTSIDE RECORDS SUMMARY | 2025-07-20 00:55 | XMS_ITS | Encounter Summary ---
Author Organization [facility] Address [address] [place] [address] Care Team Providers Care Advertising Writer Name Role Phone Ashwin Arzola MD Primary Care Provider Sotero Connell MD Unavailable [phone] lBanco Edwards NP Unavailable [phone] Reason for Visit * Reason Onset Date Comments Faxed Order 06/15/2024 [facility] order #[id number] Encounter Details Date Type Department Care Team Description 06/15/2024 Telephone Adult Medicine [address] [address] Ashwin Arzola MD [address] [place] [address] Faxed Order ([facility] order #[id number]) Social History Tobacco Use Types Packs/Day Years [...] Received orders from [facility] order #[id number]. Please sign and fax to [phone] documented in this encounter Plan of Treatment Not on file documented as of this encounter Visit Diagnoses Not on filedocumented in this encounter Care Teams Advertising Writer Relationship Specialty Start Date End Date Ashwin Arzola MD [address] [place] [address] PCP - General Internal Medicine 08/01/20 Sotero Connell MD [address] [place] [address]20 Specialist Cardiology 07/10/21 Blanco Edwards NP [address] [place] [address]20 Specialist Cardiology 08/02/22 documented as of this encounter
--- OUTSIDE RECORDS SUMMARY | 2025-07-20 00:55 | XMS_ITS | Encounter Summary ---
Author Organization [facility] Address [address] [place] [address] Care Team Providers Care Dredge Mate Name Role Phone Ashwin Arzola MD Primary Care Provider [phone] Sotero Connell MD Unavailable [phone] Blanco Edwards NP Unavailable [phone] Encounter Details Date Type Department Care Team Description 12/25/2023 Orders Only Medical Records [address] [place] [address] Abbe Moran Social History Tobacco Use Types [...] this encounter Results * OUTSIDE LAB (11/15/2023) [facility] [place] [facility] * OUTSIDE EKG (11/15/2023) [facility] [place] [facility] * OUTSIDE CT (11/08/2023) [facility] RADIOLOGY documented in this encounter Visit Diagnoses Not on filedocumented in this encounter Care Teams Dredge Mate Relationship Specialty Start Date End Date Ashwin Arzola MD [address] [place] [address] PCP - General Internal Medicine 08/01/20 Sotero Connell MD [address] [place] [address] [phone] Specialist Cardiology 07/10/21 Blanco Edwards NP [address] [place] [address] [phone] Specialist Cardiology 08/02/22 documented as of this encounter
--- OUTSIDE RECORDS SUMMARY | 2025-07-20 00:55 | XMS_ITS | Encounter Summary ---
Author Organization [facility] Address [address] [place] [address] Care Team Providers Care Relations Director Name Role Phone Name, Braulio CHIANG Primary Care Provider Unavailabl Dudley Mancuso MD Primary Care Provider Unavail able Ajit Montanez MD Primary Care Provide r Unavailable Sujey Browning MD Primary Care Provider Un available Dudley Brown MD Primary Care Provider Unavail able Nancy Vines DO Primary Care Pro vider Unavailable Ashwin Arzola MD Primary Care Provider [phone] Sujey Browning MD Primary Care Provider Un available Sotero Connell MD Unavailable [phone] Blanco Edwards NP Unavailable [phone] Reason for Visit * Reason Onset Date Comments DME Request 07/08/2014 Neighborhood Encounter Details Date Type Department Care Team Description 07/08/2014 Telephone Adult [address] [address] Name, MD Braulio DME Request ([facility]) Social History Tobacco Use Types Packs/Day [...] on filedocumented in this encounter Care Teams Relations Director Relationship Specialty Start Date End [...] Medicine 04/13/20 07/31/20 Ashwin Arzola MD [address] [place] [address] PCP - General Internal Medicine 08/01/20 Sujey Browning MD PCP - General 07/03/15 11/12/15 Sotero Connell MD [address] [place] [address] Specialist Cardiology 07/10/21 Blanco Edwards NP [address] [place] [address] 66821 Specialist Cardiology 08/02/22 documented as of this encounter
--- OUTSIDE RECORDS SUMMARY | 2025-07-20 00:55 | XMS_ITS | Encounter Summary ---
Author Organization [facility] Address [address] [place] [address] Care Team Providers Care Transfer Clerk Name Role Phone Ashwin Arzola MD Primary Care Provider [phone] Sotero Connell MD Unavailable [phone] Blanco Edwards NP Unavailable [phone] Encounter Details Date Type Department Care Team Description 08/01/2022 Hospital Medical Records [address] [place] [address] [facility] Social History Tobacco Use Types [...] on filedocumented in this encounter Care Teams Transfer Clerk Relationship Specialty Start Date End Date Ashwin Arzola MD [address] [place] [address] [phone] PCP - General Internal Medicine 08/01/20 Sotero Connell MD [address] [place] [address] [phone] Specialist Cardiology 07/10/21 Blanco Edwards NP [address] [place] [address] [phone] Specialist Cardiology 08/02/22 documented as of this encounter
--- OUTSIDE RECORDS SUMMARY | 2025-07-20 00:55 | XMS_ITS | Encounter Summary ---
Author Organization [facility] Address [address] [place] [address] Care Team Providers Care Supervisor Hide House Name Role Phone Name, Braulio CHIANG Primary [...] Provider Un available Sotero Connell MD Unavailable [phone] Blanco Edwards NP Unavailable [phone] Encounter Details Date Type Department Care Team Description 05/29/2015 Release of Information Medical Records [address] [place] [address] Abstract, Provider Social History Tobacco Use Types [...] filedocumented in this encounter Care Teams Supervisor Hide House Relationship Specialty Start Date End Date Name, [...] Internal Medicine 04/13/20 07/31/20 Ashwin Arzola MD [address] [place] [address] [phone] PCP - General Internal Medicine 08/01/20 Sujey Browning MD PCP - General 07/03/15 11/12/15 Sotero Connell MD [address] [place] [address] [phone] Specialist Cardiology 07/10/21 Blanco Edwards NP [address] [place] [address] 21353 Specialist Cardiology 08/02/22 documented as of this encounter
--- OUTSIDE RECORDS SUMMARY | 2025-07-20 00:55 | XMS_ITS | Encounter Summary ---
Author Organization [facility] Address [address] [place] [address] Care Team Providers Care Soft Work Wrapper Examiner Name Role Phone Ashwin Arzola MD Primary Care Provider [phone] Sotero Connell MD Unavailable [phone] Blanco Edwards NP Unavailable [phone] Encounter Details Date Type Department Care Team Description 06/10/2022 SCAN [facility] [address] [phone] Linus Luna DPM [address] [address] Social History Tobacco Use Types Packs/Day Years [...] on filedocumented in this encounter Care Teams Soft Work Wrapper Examiner Relationship Specialty Start Date End Date Ashwin Arzola MD [address] [place] [address] [phone] PCP - General Internal Medicine 08/01/20 Sotero Connell MD [address] [place] [address] Specialist Cardiology 07/10/21 Blanco Edwards NP [address] [place] [address] Specialist Cardiology 08/02/22 documented as of this encounter
--- OUTSIDE RECORDS SUMMARY | 2025-07-20 00:55 | XMS_ITS | Encounter Summary ---
Author Organization [facility] Address [address] [place] [address] Care Team Providers Care Foreman/Pile Driving And Erection Name Role Phone Ashwin Arzola MD Primary Care Provider [phone] Sotero Connell MD Unavailable [phone] Blanco Edwards NP Unavailable [phone] Encounter Details Date Type Department Care Team Description 08/23/2022 Telephone Cardio PVCA Diag Testing [address] [facility] [address] [place] [address] Blanco Edwards NP [address] [place] [address] [phone] Social History Tobacco Use Types Packs/Day Years [...] on filedocumented in this encounter Care Teams Foreman/Pile Driving And Erection Relationship Specialty Start Date End Date Ashwin Arzola MD [address] [place] [address]36 PCP - General Internal Medicine 08/01/20 Sotero Connell MD [address] [place] [address] 61051 Specialist Cardiology 07/10/21 Blanco Edwards NP [address] [place] [address] Specialist Cardiology 08/02/22 documented as of this encounter
--- OUTSIDE RECORDS SUMMARY | 2025-07-20 00:55 | XMS_ITS | Encounter Summary ---
Author Organization [facility] Address [address] [place] [address] Care Team Providers Care Ict Help Desk Officer Name Role Phone Ashwin Arzola MD Primary Care Provider [phone] Sotero Connell MD Unavailable [phone] Blanco Edwards NP Unavailable [phone] Reason for Visit * Reason Onset Date Comments Prior Authorization 02/16/2024 Sleep Study Encounter Details Date Type Department Care Team Description 02/16/2024 Telephone Pulmonology - [place] [address] [facility] [address] [place] [phone] Blane Shah MD Prior Authorization (Sleep Study [...] [place] - 02/16/2024 2:[address] [facility] rep, patient's insurance termed as of 01/10/24. Please verify insurance documented in this encounter Plan of Treatment Not on file documented as of this encounter Visit Diagnoses Not on filedocumented in this encounter Care Teams Ict Help Desk Officer Relationship Specialty Start Date End Date Ashwin Arzola MD [address] [place] [address] PCP - General Internal Medicine 08/01/20 Sotero Connell MD [address] [place] [address] 12706 Specialist Cardiology 07/10/21 Blanco Edwards NP [address] [place] [address] 22466 Specialist Cardiology 08/02/22 documented as of this encounter
--- OUTSIDE RECORDS SUMMARY | 2025-07-20 00:55 | XMS_ITS | Encounter Summary ---
Author Organization [facility] Address [address] [place] [address] Care Team Providers Care Bessemer Bottom Maker Name Role Phone Sujey Browning MD Primary Care Provider Un available Dudley Brown MD Primary Care Provider Unavail able Nancy Vines DO Primary Care Pro vider Unavailable Ashwin Arzola MD Primary Care Provider [phone] Sotero Connell MD Unavailable [phone] Blanco Edwards NP Unavailable [phone] Encounter Details Date Type Department Care Team Description 01/29/[address] [phone] Sujey Browning MD Social History Tobacco Use [...] on filedocumented in this encounter Care Teams Bessemer Bottom Maker Relationship Specialty Start Date End Date Sujey Browning MD PCP - General Internal Medicine 03/27/1608/02 Dudley Brown MD PCP - General Internal Medicine 08/03/19 04/12/20 Nancy Vines DO PCP - General Internal Medicine 04/13/20 07/31/20 Ashwin Arzola MD [address] [place] [address] PCP - General Internal Medicine 08/01/20 Sotero Connell MD [address] [place], [place] [phone] Specialist Cardiology 07/10/21 Blanco Edwards NP [address] [place] [address] [phone] Specialist Cardiology 08/02/22 documented as of this encounter
--- OUTSIDE RECORDS SUMMARY | 2025-07-20 00:55 | XMS_ITS | Encounter Summary ---
Author Organization [facility] Address [address] [place] [address] Care Team Providers Care Cigar Packer And Sorter Name Role Phone Ashwin Arzola MD Primary Care Provider [phone] Sotero Connell MD Unavailable [phone] Blanco Edwards NP Unavailable [phone] Reason for Visit * Reason Comments E-prescribe Rx Request Encounter Details Date Type Department Care Team Description 03/01/2022 Refill Adult Medicine [facility] [address] [place], [place] [phone] Ashwin Arzola MD [address] [place] [address] [phone] E-prescribe Rx Request Social History Tobacco Use [...] N/A Patients current insurance carrier is: Payor: [employer] / Plan: navabi $0 [place] [id number] / Product Type: HMO [id number] documented in this encounter Plan of Treatment Not on file documented as of this encounter Visit Diagnoses Not on filedocumented in this encounter Care Teams Cigar Packer And Sorter Relationship Specialty Start Date End Date Ashwin Arzola MD [address] [place] [address]64 PCP - General Internal Medicine 08/01/20 Sotero Connell MD [address] [place] [address] [phone] Specialist Cardiology 07/10/21 Blanco Edwards NP [address] [place] [address] [phone] Specialist Cardiology 08/02/22 documented as of this encounter
--- OUTSIDE RECORDS SUMMARY | 2025-07-20 00:55 | XMS_ITS | Encounter Summary ---
Author Organization [facility] Address [address] [place] [address] Care Team Providers Care Hoist Cylinder Loader Name Role Phone Ashwin Arzola MD Primary Care Provider [phone] Sotero Connell MD Unavailable [phone] Blanco Edwards NP Unavailable [phone] Reason for Visit * Reason Onset Date Comments Medication 02/26/2022 Encounter Details Date Type Department Care Team Description 02/26/2022 Telephone [facility] [address] [phone] Linus Luna DPM [address] [phone] Medication Social History Tobacco Use Types Packs/Day [...] 2:25 PM EDT Received incoming call from [facility], they need Clarification on the Gabapentin. They need to know how many tabs the patient should be taking daily Pleae call pharmacy back @ [phone]. documented in this encounter Plan of Treatment Not on file documented as of this encounter Visit Diagnoses Not on filedocumented in this encounter Care Teams Hoist Cylinder Loader Relationship Specialty Start Date End Date Ashwin Arzola MD [address] [place] [address] PCP - General Internal Medicine 08/01/20 Sotero Connell MD [address] [place] [address] 87286 Specialist Cardiology 07/10/21 Blanco Edwards NP [address] [place] [address] 0[address]9 Specialist Cardiology 08/02/22 documented as of this encounter
--- OUTSIDE RECORDS SUMMARY | 2025-07-20 00:55 | XMS_ITS | Encounter Summary ---
Author Organization [facility] Address [address] [place] [address] Care Team Providers Care Column Precaster Name Role Phone Name, Braulio CHIANG Primary Care Provider Unavailabl e Dudley Brown MD Primary Care Provider Unavail able Ajit Montanez MD Primary Care Provide r Unavailable Sujey Browning MD Primary Care Provider Un available Dudley Brown MD Primary Care Provider Unavail able Nancy Vines DO Primary Care Pro vider Unavailable Ashwin Arzola MD Primary Care Provider [phone] Sujey Browning MD Primary Care Provider Un available Sotero Connell MD Unavailable [phone] Blanco Edwards NP Unavailable [phone] Reason for Visit * Reason Onset Date Comments DME Request 05/28/2013 lesli Encounter Details Date Type Department Care Team Description 05/28/2013 Telephone Adult Medicine [address] [phone] Britt Flores NP DME Request (lesli) Social [...] - 05/28/2013 4:37 PM EDT FORM ON SplystIAS DESK * Telephone Encounter - Karishma Castaneda - 05/28/2013 4:25 PM EDT Name of Product: Compression stockings Specific information about product fax to increase compression # Needed see fax Reason/Diagnosis: unknown When completed: fax to Lesli [phone] documented in this encounter Plan of Treatment Not on file documented as of this encounter Visit Diagnoses Not on filedocumented in this encounter Care Teams Column Precaster Relationship Specialty Start Date End Date Name, [...] Medicine 04/13/20 07/31/20 Ashwin Arzola MD [address] [place] [address] PCP - General Internal Medicine 08/01/20 Sujey Browning MD PCP - General 07/03/15 11/12/15 Sotero Connell MD [address] [place] [address]120 Specialist Cardiology 07/10/21 Blanco Edwards NP [address] [place] [address] Specialist Cardiology 08/02/22 documented as of this encounter
--- OUTSIDE RECORDS SUMMARY | 2025-07-20 00:55 | XMS_ITS | Encounter Summary ---
Author Organization [facility] Address [address] [place] [address] Care Team Providers Care Research And Evaluation Manager Name Role Phone Ashwin Arzola MD Primary Care Provider [phone] Sotero Connell MD Unavailable [phone] [facility] NP Unavailable [phone] Reason for Visit * Reason Onset Date Comments Advice 12/25/2023 Message left for patient, she would need to brain picker her new RX at the pharmacy. [id number] NancyPt is south african speaking Encounter Details Date Type Department Care Team Description 12/25/2023 Telephone Adult Medicine [address] 1935120 Ashwin Arzola MD [address] [place], [place] [phone] Advice (Message left for patient, she would need to brain picker her new RX at the pharmacy. [phone] Gifty/Pt is south african speaking) Social History Tobacco Use Types Packs/Day Years [...] filedocumented in this encounter Care Teams Research And Evaluation Manager Relationship Specialty Start Date End Date Ashwin Arzola MD [address] [place] [address]20 PCP - General Internal Medicine 08/01/20 Sotero Connell MD [address] [place] [address] Specialist Cardiology 07/10/21 Blanco Edwards NP [address] [place] [address] [phone] Specialist Cardiology 08/02/22 documented as of this encounter
--- OUTSIDE RECORDS SUMMARY | 2025-07-20 00:55 | XMS_ITS | Encounter Summary ---
Author Organization [facility] Address [address] [place] [address] Care Team Providers Care Job Development Specialist Name Role Phone Ashwin Arzola MD Primary Care Provider [phone] Sotero Connell MD Unavailable [phone] Blanco Edwards NP Unavailable [phone] Encounter Details Date Type Department Care Team Description 08/01/2022 Telephone Pulmonology [address] [place] [address] Blane Shah MD Social History [...] (HCC) documented in this encounter Care Teams Job Development Specialist Relationship Specialty Start Date End Date Ashwin Arzola MD [address] [place] [address] PCP - General Internal Medicine 08/01/20 Sotero Connell MD [address] [place] [address] Specialist Cardiology 07/10/21 Blanco Edwards NP [address] [place] [address] Specialist Cardiology 08/02/22 documented as of this encounter
--- OUTSIDE RECORDS SUMMARY | 2025-07-20 00:55 | XMS_ITS | Data Portability ---
Author Organization [facility], Main Office Address [address] [facility], [address] [place] [address] Care Team Providers Care Java Lead Developer Name Role Phone AYAZ GUILLEN - 2ND [...] Details Recorded Time Type 2 diabetes mellitus 00320448 Active 2023 Lynda Sinha MD [address] [place] [address], [facility] [[email or web address]] [address], [place], [address], [facility] [employer] 18:52:19 Cellulitis of left lower limb 2356613895109 9109 Active 2023 Lynda Sinha MD [address] [place] [address], [address], [place], [address], [facility] [employer] 18:52:25 Essential hypertensio n 59781680 Active 2023 Lynda Sinha MD [address] [place] [address], [address], [place], [address], [facility] [employer] 18:53:29 Dementia with behavioral disturbance 8056403572314 Active 2023 Lynda Sinha MD [address] [facility], [address], [place], [address], [facility] [employer] 4 19:00:22 Hyperlipide sammi 75962845 Active 2023 Lynda Sinha MD [address] [facility], [address], [place], [address], [facility] 4 19:01:01 History of cerebral aneurysm 3776481283332 9109 Active 2023 Lynda Sinha MD [address], [address], [place], [address], [facility] 4 19:01:48 Chronic obstructive pulmonary disease 57907384 Active 2023 Lynda Sinha MD [address] [facility], [address], [place], [address], [facility] 4 19:03:01 Migraine 25641577 Active 2023 Lynda Sinha MD [address] [facility], [address], [place], [address], [facility] 4 19:04:18 Gastroesoph ageal reflux disease without esophagitis 009583909 Active 2023 Lynda Sinha MD [address] [place] [address], [address], [place], [address], [facility] 4 19:05:04 Problem Notes None recorded. Medical Equipment None Reported. Allergies Allergen ID Allergen Name Allergen Category Reaction Reaction Severity Criticality Documentation Date Start Date Code Code System Note Provider Name and Address Organization Details Recorded Time 02215 Product containin g penicilli n (product) medicatio n Not available Not available Not available 09/14/2024 13627 8001 SNOMED Lynda Sinha MD [address] [place] [address], [address], [place], [address], [facility] 4 15:14:47 Vitals Date Recorded Body height Body mass index (BMI) Body weight Heart rate Respiratory rate Body temperature Oxygen saturation Oxygen saturation in Arterial blood by Pulse oximetry Systolic And Diastolic Provider Name and Address Organization Details Last Updated DateTime 165.1 cm 31.1 kg/m2 01126.7 7 g 77 /min 18 /min 98 [degF] 98 % 98 % 142/72 mm[Hg] Lynda Sinha MD [address] [place] [address], [address], [place], [address], [facility] 4 15:39:49 Date Recorded Body height Body mass index (BMI) Body weight Heart rate Respiratory rate Body temperature Oxygen saturation Oxygen saturation in Arterial blood by Pulse oximetry Systolic And Diastolic Provider Name and Address Organization Details Last Updated DateTime 4 165.1 cm 31.1 kg/m2 05551.7 7 g 69 /min 18 /min 98 [degF] 98 % 98 % 142/72 mm[Hg] Mallorie Hunter NP [address] [facility], [address], [place], [address], [facility] 4 11:14:18 Social History Question Answer Notes LastModified by [employer] Details LastModified Time Tobacco Smoking Status Former Smoker Smoked [id number] Lynda Sinha MD [address] [facility], [address], [place], [address], [facility] 09/14/2024 14:48:24 Do You Have An Advance Directive? Yes Information not available 09/14/2024 What Is Your Code Status? Full Code Information not available 09/14/2024 Where Do You Live? Apartment Alone, No Stairs Information not available 09/14/2024 Legal Guardian? No Informati on not available 09/14/2024 Do You Have A Medical Power Of Cylinder Loader? Yes Information not available 09/14/2024 What Was The Date Of Your Most Recent Tobacco Screening? 09/14/2024 Information not available 09/14/2024 Do You Have An Out Of Hospital DNR? No Information not available 09/14/2024 What Is Your Relationship Status? Information not available 09/14/2024 How Much Tobacco Do You Smoke? No Information not available 09/14/2024 Has Tobacco Cessation Counseling Been Provided? No N/a As Pt No Longer Smokes Information not available 09/14/2024 How Many Years Have You Smoked Tobacco? 15 Information not available 09/14/2024 Sex: Unknown Functional Status Question Answer Note LastModified by Organizat ion Details LastModified Time Do you use any illicit or recreational drugs? No Information not available 09/14/2024 Do you or have you ever used any other forms of tobacco or nicotine? No Information not available 09/14/2024 What is your level of alcohol consumption? None Information not available 09/14/2024 Mental Status None recorded. Family History Nothing Reported Notes:n/c Medical History No medical history recorded. Gynecological HistoryNo gynecological history recorded. Obstetrics History GPAL:G 0 P 0 0 0 0 Immunizations Vaccine Type Date Status Note Provider Nam e and Address Organization Details Recorded Time Td(adult) unspecified formulation 9 completed I[facility] 09/08/2024 14:44:30 Td(adult) unspecified formulation 0 completed Isha [facility] 09/08/2024 14:44:40 Pneumococcal conjugate PCV 13 9 completed Isha [facility] 09/08/2024 14:44:59 Pneumococcal conjugate PCV 13 3 completed Isha [facility] 09/08/2024 14:45:08 Pneumococcal conjugate PCV 13 3 completed Isha [facility] 09/08/2024 14:45:16 pneumococcal polysaccharide PPV23 9 completed Isha [facility] 09/08/2024 14:46:27 pneumococcal polysaccharide PPV23 3 completed Isha [facility] 09/08/2024 14:46:39 pneumococcal polysaccharide PPV23 6 completed Isha [facility] 09/08/2024 14:46:46 influenza, unspecified formulation 2 completed Isha [facility] 09/08/2024 14:47:02 influenza, unspecified formulation 4 completed Isha [facility] 09/08/2024 14:47:11 SARS-COV-2 (COVID-19) vaccine, UNSPECIFIED 1 completed Isha [facility] 09/08/2024 14:47:30 SARS-COV-2 (COVID-19) vaccine, UNSPECIFIED 2 completed [facility] 09/08/2024 14:47:43 zoster, unspecified formulation 1 completed Isha [facility] 09/08/2024 14:48:01 zoster, unspecified formulation 2 completed [facility] 09/08/2024 14:48:10 Past Encounters Encounter ID Performer Location Encounter Start Date Encounter Closed Date Diagnosis/Indication Diagnosis SNOMED-CT Code Diagnosis ICD10 Code Diagnosis IMO Codes Diagnosis Note [id number] Lynda Sinha MD [address] [address] 09/14/2024 14:37:20 09/15/2024 10:44:58 Cellulitis of left lower limb [id number] 6143140 L03.116 S/P LLE cellulitis without evidence of osteo.Comp leted abx inpt.Now almost all healed.Con tinue local skin care.Monit or. Type 2 jean betes mellitus 36691686 E11.9 Diet controlled at home.No BS checked since here.Will be going home tomorrow and will f/u with PCP. Essential hypertension 50609492 I10 Adequate control over first 3 days here, not checked since then.Sathya nue metoprolol 25 mg qd.Monitor BP and labs as outpt. Chronic ob structive pulmonary disease 42153207 J43.8 In hx.No current sxs.Unclea r why she is on both Incruse Ellipta and Trelegy, which both have umeclidini um in them.But will continue for now as pt is going home tomorrow.A lso continue montelukas t 10 mg qd and loratadine 10 mg qd.Monitor resp status. Dementia w ith behavioral disturbance 2064228947 103 F02.A18 Mild, but with hx of delusions and paranoia.S ome meds d/c'd inpt to avoid polypharma cy.Continu e amitriptyl ine 200 mg qhs, duloxetine 20 mg qd, gabapentin 300 mg TID and clonazepam 1 mg qhs.Monito r mood and behaviors. Provide supportive care.Does not need HCP invoked.F/ U as outpt. Hyperlipidemia 18005056 E78.49 Continue atorvastat in 80 mg qd. and ASA 81 mg qd.Monitor labs as outpt. History of cerebral aneurysm 4275278201 7840284 Z86.79 Stable per last CTA in 03/2024.Mon itor with neuro as outpt. Migraine 22355930 G43.00 9 No current sxs.Was on fioricet as outpt.No recent sxs, so will not start right now.F/U as outpt. Gastroesop hageal reflux disease without esophagitis 513616614 K21.9 Continue pantoprazo le 40 mg qdMonitor GI sxs. [id number] Mallorie Hunter NP [address] [address] 09/15/2024 11:13:41 09/16/2024 11:58:58 Cellulitis of left lower limb [id number] 2932731 L03.116 S/P LLE cellulitis without evidence of osteo.Comp leted abx inpt.Now almost all healed.Mon itor outpt with pcp appt 09/17 for s/s of infection Type 2 jean betes mellitus 35607640 E11.9 Diet controlled at home.No BS checked since here.f/u with PCP outpt Essential hypertension 25242440 I10 Adequate controlCon tinue metoprolol 25 mg qd.Monitor BP and labs as outpt. Chronic ob structive pulmonary disease 39847319 J43.8 In hx.No current sxs.Unclea r why she is on both Incruse Ellipta and Trelegycon tinuemonte lukast 10 mg qd and loratadine 10 mg qd.Monitor resp status outpt Dementia w ith behavioral disturbance 2457850053 103 F02.A18 Mild, but with hx of delusions and paranoia.S ome meds d/c'd inpt to avoid polypharma cy.Continu eamitripty line 200 mg qhs, duloxetine 20 mg qd, gabapentin 300 mg TID and clonazepam 1 mg qhs.Monito r mood and behaviors. Provide supportive care.Does not need HCP invoked.F/ U as outpt. Hyperlipidemia 29926902 E78.49 Continue atorvastat in 80 mg qd. and ASA 81 mg qd.Monitor labs as outpt. History of cerebral aneurysm 6588875784 6236838 Z86.79 Stable per last CTA in 03/2024.Mon itor with neuro as outpt. Migraine 10514676 G43.00 9 No current sxs.Was on fioricet as outpt.No recent sxs, so will not start right now.F/U as outpt with pcp Gastroesop hageal reflux disease without esophagitis 114962443 K21.9 Continuepa ntoprazole 40 mg qdMonitor GI sxs. outpt with pcp Health Concerns Section Related Observation LastModified by Organization Detai ls LastModified Time None Recorded Concern Status LastModified by Organization Details LastModified Time None Recorded Advance Directives Directive Y: Payers Insurance Date Sequence Insurance Name Policy Number Policy Edwards Covered Member ID Edwards Member ID Guarantor Name 09/14/2024 1 [facility] - DOS ON OR AFTER 2023 - MEDICARE [place]VANTAGE [place] (MEDICARE REPLACEMENT/ADV ANTAGE - PPO) Melyssa Keating [id number] Melyssa Keating Notes Date Note Type Note Provider Name and Address Organization Details Recorded Time 09/14/2024 text/html This is a 69 yo woman who is here for rehab after an acute hospitalization for She had initially been seen at [facility] ED on 08/25forleft LE cellulitisand started on doxy after hitting leg when getting into truck ~ 5 days earlier. And then on08/31 for SOB, determined to be due to anxiety. [facility] LLE increasing pain, swelling and redness. She said she had hit it on something 5 days MUSIC MIXER, but was actually ~08/20.She was tachycardic with [...] go home tomorrow.I see her with a micronesian speaking staff member.She tells me she is feeling strong enough to go home. Has 43 hrs/wk of [employer] [facility] time and [facility] comes every day to do her meds. Her PMH includes HTN, AODM, hx of CVA with left sided weakness, COPD, HLD, dementia with delusions, right MCA aneurysm (3 cm x3.5 cm and stable), migraines, depression/anxiety. Lynda Sinha MD [address] [place] [address], [address], [place], [address], [facility] [employer] 09/14/2024 19:24:34 09/15/2024 text/html This is a [...] to be due [facility] pain, swelling and redness. She said she had hit it on something 5 days MUSIC MIXER, but was actually ~08/20.She was tachycardic with [...] were changed in hospital. While here at [facility]:Melyssa continues to do well Since here she has been working with rehab and doing very well. She is walking 300' with walker and SBA.Today's visit assisted with a micronesian speaking staff member. She tells me she is feeling strong enough to go home and [employer] and VNA will come when she calls today. She has an outpt appt with Dr Mark on 09/17 to followup. On exam, she is sitting up in chair, LLE is not hot and swelling appears to be resolving. She is pleasant and denies any concerns today. Mallorie Hunter, [place] [address] [facility], [address], [place], [address], [facility] - [employer] 09/15/2024 11:39:51 OBGyn Episode No OBEpisode recorded.
--- OUTSIDE RECORDS SUMMARY | 2025-07-20 00:55 | XMS_ITS | Encounter Summary ---
Author Organization [facility] Address [address] [place] [address] Care Team Providers Care Claim Representative Name Role Phone Ashwin Arzola MD Primary Care Provider [phone] Sotero Connell MD Unavailable [phone] Blanco Edwards NP Unavailable [phone] Encounter Details Date Type Department Care Team Description 08/08/2020 Abstract Gastroenterology - [place] [address] [facility] [address] [place] [address] Ashwin Arzola MD [address] [place] [phone] Social History Tobacco Use Types Packs/Day Years [...] have Coronavirus / COVID-19? No / Unsure 08/01/2020 10:30 AM EDT documented as of this encounter Plan of Treatment Not on file documented as of this encounter Visit Diagnoses Not on filedocumented in this encounter Care Teams Claim Representative Relationship Specialty Start Date End Date Ashwin Arzola MD [address] [place] [address] PCP - General Internal Medicine 08/01/20 Sotero Connell MD [address] [place] [address] Specialist Cardiology 07/10/21 Blanco Edwards NP [address] [place] [address] Specialist Cardiology 08/02/22 documented as of this encounter
--- OUTSIDE RECORDS SUMMARY | 2025-07-20 00:55 | XMS_ITS | Encounter Summary ---
Author Organization [facility] Address [address] [place] [address] Care Team Providers Care Metal Polisher And Buffer Apprentice Name Role Phone Name, Braulio CHIANG Primary Care Provider Unavailabl Dudley Mancuso MD Primary Care Provider Unavail able Ajit Montanez MD Primary Care Provide r Unavailable Sujey Browning MD Primary Care Provider Un available Dudley Brown MD Primary Care Provider Unavail able Nancy Vines DO Primary Care Pro vider Unavailable Ashwin Arzola MD Primary Care Provider [phone] Sujey Browning MD Primary Care Provider Un available Sotero Connell MD Unavailable [phone] Blanco Edwards NP Unavailable [phone] Encounter Details Date Type Department Care Team Description 06/23/2014 [facility] Medical Records [address] [place] [address] Sotero Singh Social History Tobacco Use Types Packs/Day Years [...] on filedocumented in this encounter Care Teams Metal Polisher And Buffer Apprentice Relationship Specialty Start Date End Date Name, [...] Medicine 04/13/20 07/31/20 Ashwin Arzola MD [address] [place] [address] [phone] PCP - General Internal Medicine 08/01/20 Sujey Browning MD PCP - General 07/03/15 11/12/15 Sotero Connell MD [address] [place] [phone] Specialist Cardiology 07/10/21 Balnco Edwards NP [address] [place] [address] Specialist Cardiology 08/02/22 documented as of this encounter
--- OUTSIDE RECORDS SUMMARY | 2025-07-20 00:55 | XMS_ITS | Encounter Summary ---
Author Organization [facility] Address [address] [place] [address] Care Team Providers Care Certified Pesticide Applicator Name Role Phone Sujey Browning MD Primary Care Provider Un available Dudley Brown MD Primary Care Provider Unavail able Nancy Vines DO Primary Care Pro vider Unavailable Ashwin Arzola MD Primary Care Provider [phone] Sotero Connell MD Unavailable [phone] [facility] Unavailable [phone] Encounter Details Date Type Department Care Team Description 03/02/2019 Orders Only Medical Records [address] [place] [address] Nicol Alston DPM Social History Tobacco Use [...] filedocumented in this encounter Care Teams Certified Pesticide Applicator Relationship Specialty Start Date End Date Sujey Browning MD PCP - General Internal Medicine 03/27/1608/02 Dudley Brown MD PCP - General Internal Medicine 08/03/19 04/12/20 Nancy Vines DO PCP - General Internal Medicine 04/13/20 07/31/20 Ashwin Arzola MD [address] [place] [address] PCP - General Internal Medicine 08/01/20 Sotero Connell MD [address] [place] [address] Specialist Cardiology 07/10/21 Blanco Edwards NP [address] [place] [address] Specialist Cardiology 08/02/22 documented as of this encounter
--- OUTSIDE RECORDS SUMMARY | 2025-07-20 00:55 | XMS_ITS | Encounter Summary ---
Author Organization [facility] Address [address] [place] [address] Care Team Providers Care Supervisor Irrigation Name Role Phone Ashwin Arzola MD Primary Care Provider [phone] Sotero Connell MD Unavailable [phone] Blanco Edwards NP Unavailable [phone] Reason for Visit * Reason Onset Date Comments Faxed Order 06/15/2024 [facility] order #[id number] Encounter Details Date Type Department Care Team Description 06/15/2024 Telephone Adult Medicine [address] [address] Ashwin Arzola MD [address] [place] [address] Faxed Order ([facility] order #[id number]) Social History Tobacco Use Types Packs/Day Years [...] Received orders from [facility] order #[id number]. Please sign and fax to [phone] documented in this encounter Plan of Treatment Not on file documented as of this encounter Visit Diagnoses Not on filedocumented in this encounter Care Teams Supervisor Irrigation Relationship Specialty Start Date End Date Ashwin Arzola MD [address] [place] [address] PCP - General Internal Medicine 08/01/20 Sotero Connell MD [address] [place] [address] Specialist Cardiology 07/10/21 Blanco Edwards NP [address] [place] [address] Specialist Cardiology 08/02/22 documented as of this encounter
--- OUTSIDE RECORDS SUMMARY | 2025-07-20 00:55 | XMS_ITS | Encounter Summary ---
Author Organization [facility] Address [address] [place] [address] Care Team Providers Care Frozen Yogurt Maker Name Role Phone Ashwin Arzola MD Primary Care Provider [phone] Sotero Connell MD Unavailable [phone] Blanco Edwards NP Unavailable [phone] Reason for Visit * Reason Onset Date Comments Faxed Order 03/10/2024 [facility] er # [id number] Encounter Details Date Type Department Care Team Description 03/10/2024 Telephone Adult Medicine [address] [phone] Ashwin Arzola MD [address] [place] [phone] Faxed Order ([facility] Order # [id number]) Social History Tobacco Use Types Packs/Day Years [...] on filedocumented in this encounter Care Teams Frozen Yogurt Maker Relationship Specialty Start Date End Date Ashwin Arzola MD [address] [place] [address] PCP - General Internal Medicine 08/01/20 Sotero Connell MD [address] [place] [address] Specialist Cardiology 07/10/21 Blanco Edwards NP [address] [place] [address] Specialist Cardiology 08/02/22 documented as of this encounter
--- OUTSIDE RECORDS SUMMARY | 2025-07-20 00:55 | XMS_ITS | Encounter Summary ---
Author Organization [facility] Address [address] [place] [address] Care Team Providers Care Hog Buyer Name Role Phone Ashwin Arzola MD Primary Care Provider [phone] Sotero Connell MD Unavailable [phone] Blanco Edwards NP Unavailable [phone] Encounter Details Date Type Department Care Team Description 06/21/2022 [facility] [address] [phone] Linus Luna DPM [address] [address] Social History Tobacco Use Types Packs/Day Years [...] on filedocumented in this encounter Care Teams Hog Buyer Relationship Specialty Start Date End Date Ashwin Arzola MD [address] [place] [address] [phone] PCP - General Internal Medicine 08/01/20 Sotero Connell MD [address] [place] [address] Specialist Cardiology 07/10/21 Blanco Edwards NP [address] [place] [address] Specialist Cardiology 08/02/22 documented as of this encounter
--- OUTSIDE RECORDS SUMMARY | 2025-07-20 00:55 | XMS_ITS | Encounter Summary ---
Author Organization [facility] Address [address] [place] [address] Care Team Providers Care Surface Room Shop Optician Name Role Phone Ashwin Arzola MD Primary Care Provider [phone] Sotero Connell MD Unavailable [phone] Blanco Edwards NP Unavailable [phone] Reason for Visit * Reason Onset Date Comments Faxed Order 04/29/2024 Scott Patino carlyn Report (02/28/24-04/21/24) Encounter Details Date Type Department Care Team Description 04/29/2024 Telephone Adult Medicine [address] [phone] Ashwin Arzola MD [address] [place] [address] Faxed Order (Scott Lawson/Summary Report (02/28/24-04/21/24)) Social [...] on filedocumented in this encounter Care Teams Surface Room Shop Optician Relationship Specialty Start Date End Date Ashwin Arzola MD [address] [place] [address] PCP - General Internal Medicine 08/01/20 Sotero Connell MD [address] [place] [address] Specialist Cardiology 07/10/21 Blanco Edwards NP [address] [place] [address] Specialist Cardiology 08/02/22 documented as of this encounter
--- OUTSIDE RECORDS SUMMARY | 2025-07-20 00:55 | XMS_ITS | Encounter Summary ---
Author Organization [facility] Address [address] [place] [address] Care Team Providers Care Excavation Laborer Name Role Phone Ashwin Arzola MD Primary Care Provider [phone] Sotero Connell MD Unavailable [phone] Blanco Edwards NP Unavailable [phone] Reason for Visit * Reason Onset Date Comments Faxed Order 07/16/2024 [facility] #[id number] Encounter Details Date Type Department Care Team Description 07/16/2024 Telephone Adult Medicine [address] [address] Ashwin Arzola MD [address] [place] [address] Faxed Order ([facility]/Order #[id number]) Social History Tobacco Use Types Packs/Day Years [...] 07/16/2024 2:41 PM EDT Received faxed order [id number] from [employer] and placed in provider bin. Please review, sign, andfax to [phone] documented in this encounter Plan of Treatment Not on file documented as of this encounter Visit Diagnoses Not on filedocumented in this encounter Care Teams Excavation Laborer Relationship Specialty Start Date End Date Ashwin Arzola MD [address] [place] [address] [phone] PCP - General Internal Medicine 08/01/20 Sotero Connell MD [address] [place] [address] [phone] Specialist Cardiology 07/10/21 Blanco Edwards NP [address] [place] [address] [phone] Specialist Cardiology 08/02/22 documented as of this encounter
--- OUTSIDE RECORDS SUMMARY | 2025-07-20 00:55 | XMS_ITS | Encounter Summary ---
Author Organization [facility] Address [address] [place] [address] Care Team Providers Care Drier Tender Name Role Phone Nancy Vines DO Primary Care Pro vider Unavailable Ashwin Arzola MD Primary Care Provider Sotero Connell MD Unavailable [phone] Blanco Edwards NP Unavailable [phone] Encounter Details Date Type Department Care Team Description 07/13/2020 Telephone Gastroenterology - [place] [address] [facility] [address] [place] [address] Alber Benites PA-C Social History [...] on filedocumented in this encounter Care Teams Drier Tender Relationship Specialty Start Date End Date Nancy Vines DO PCP - General Internal Medicine 04/13/20 07/31/20 Ashwin Arzola MD [address] [place] [address] PCP - General Internal Medicine 08/01/20 Sotero Connell MD [address] [place] [address] Specialist Cardiology 07/10/21 Blanco Edwards NP [address] [place] [address] Specialist Cardiology 08/02/22 documented as of this encounter
--- OUTSIDE RECORDS SUMMARY | 2025-07-20 00:55 | XMS_ITS | Encounter Summary ---
Author Organization [facility] Address [address] [place] [address] Care Team Providers Care Senior Front End Web Developer Name Role Phone Ashwin Arzola MD Primary Care Provider [phone] Sotero Connell MD Unavailable [phone] Blanco Edwards NP Unavailable [phone] Reason for Visit * Reason Onset Date Comments DME Request 03/20/2022 Encounter Details Date Type Department Care Team Description 03/20/2022 Telephone Pulmonology - [place] [address] [facility] [address] [place] [id number] Balne Shah MD DME Request Social History Tobacco [...] filedocumented in this encounter Care Teams Senior Front End Web Developer Relationship Specialty Start Date End Date Ashwin Arzola MD [address] [place] [address] PCP - General Internal Medicine 08/01/20 Sotero Connell MD [address] [place] [address] [phone] Specialist Cardiology 07/10/21 Blanco Edwards NP [address] [place] [address] [phone] Specialist Cardiology 08/02/22 documented as of this encounter
--- OUTSIDE RECORDS SUMMARY | 2025-07-20 00:55 | XMS_ITS | Encounter Summary ---
Author Organization [facility] Address [address] [place] [address] Care Team Providers Care Marketing Community Liaison Name Role Phone Sujey Browning MD Primary Care Provider Un available Dudley Brown MD Primary Care Provider Unavail able Nancy Vines DO Primary Care Pro vider Unavailable Ashwin Arzola MD Primary Care Provider [phone] Sotero Connell MD Unavailable [phone] Blanco Edwards NP Unavailable [phone] Reason for Visit * Reason Onset Date Comments Faxed Refill 12/08/2018 Encounter Details Date Type Department Care Team Description 12/08/2018 Refill Adult Medicine [address] [address] Sujey Browning MD Faxed Refill Social History Tobacco Use [...] Telephone Encounter - Teofilo Kiran PA-C - 12/08/2018 5:09 PM EST Ok to fill. Rosita, Sarina * Telephone Encounter - Deepti Early M.A. - 12/08/2018 4:54 PM EST Lab Results Component Value Date HGBA1C 6.7 09/11/2018 MALBUR 0.7 06/03/2017 MALBCR 2.5 06/03/2017 CHOL 188 05/08/2018 LDL 71 05/08/2018 HDL 81 05/08/2018 TRIG 184 05/08/2018 GLU 110 02/24/2018 CREAT 0.6 02/24/2018 * Telephone Encounter - Leonila Wagner - 12/08/2018 4:36 PM EST Patient would like script to be: E-PRESCRIBED/FAXED TO PHARMACY WHEN WAS THE PATIENT'S LAST APPOINTMENT IN ADULT MEDICINE? 09/11/18 WHEN WAS THE LAST TIME THE PATIENT SAW THEIR PCP? 05/08/18 Does patient have an upcoming appointment? Yes 12/10/18 (THE MEDICATION REQUESTED IS ON THE MED [...] N/A Patients current insurance carrier is: Payor: [employer] / Plan: [employer] / Product Type: MEDICAID RISK documented in this encounter Plan of Treatment Not on file documented as of this encounter Visit Diagnoses Not on filedocumented in this encounter Care Teams Marketing Community Liaison Relationship Specialty Start Date End Date Sujey Browning MD PCP - General Internal Medicine 03/27/1608/02 Dudley Brown MD PCP - General Internal Medicine 08/03/19 04/12/20 Nancy Vines DO PCP - General Internal Medicine 04/13/20 07/31/20 Ashwin Arzola MD [address] [place] [address] PCP - General Internal Medicine 08/01/20 Sotero Connell MD [address] [place] [address] Specialist Cardiology 07/10/21 Blanco Edwards NP [address] [place] [address] Specialist Cardiology 08/02/22 documented as of this encounter
--- OUTSIDE RECORDS SUMMARY | 2025-07-20 00:56 | XMS_ITS | Encounter Summary ---
Author Organization [facility] Address [address] [place] [address] Care Team Providers Care Legal Researcher Name Role Phone Name, Braulio CHIANG Primary Care Provider Unavailabl Dudley Mancuso MD Primary Care Provider Unavail able Ajit Montanez MD Primary Care Provide r Unavailable Sujey Browning MD Primary Care Provider Un available Dudley Brown MD Primary Care Provider Unavail able Nancy Vines DO Primary Care Pro vider Unavailable Ashwin Arzola MD Primary Care Provider [phone] Sujey Browning MD Primary Care Provider Un available Sotero Connell MD Unavailable [phone] Blanco Edwards NP Unavailable [phone] Encounter Details Date Type Department Care Team Description 04/09/2012 Certified Registered Dental Assistant Report Medical Records [address] [place] [address] Shawn Holman Social History Tobacco Use Types [...] on filedocumented in this encounter Care Teams Legal Researcher Relationship Specialty Start Date End Date Name, [...] Medicine 04/13/20 07/31/20 Ashwin Arzola MD [address] [place] [address] [phone] PCP - General Internal Medicine 08/01/20 Sujey Browning MD PCP - General 07/03/15 11/12/15 Sotero Connell MD [address] [place] [address] [phone] Specialist Cardiology 07/10/21 Blanco Edwards NP [address] [place] [address] Specialist Cardiology 08/02/22 documented as of this encounter
--- OUTSIDE RECORDS SUMMARY | 2025-07-20 00:56 | XMS_ITS | Encounter Summary ---
Author Organization [facility] Address [address] [place] [address] Care Team Providers Care Pipe Fitter Apprentice Name Role Phone Ashwin Arzola MD Primary Care Provider [phone] Sotero Connell MD Unavailable [phone] Blanco Edwards NP Unavailable [phone] Reason for Visit * Reason Onset Date Comments Faxed Order 11/13/2023 [facility] Ord er [id number] Encounter Details Date Type Department Care Team Description 11/13/2023 Telephone Adult Medicine [address] [address] Ashwin Arzola MD [address] [place] [address] Faxed Order ([facility] Order [id number]) Social History Tobacco Use Types Packs/Day Years [...] * Telephone Encounter - Ricarda Welch - 11/13/2023 11:01 AM EST [facility] Order [id number] documented in this encounter Plan of Treatment Not on file documented as of this encounter Visit Diagnoses Not on filedocumented in this encounter Care Teams Pipe Fitter Apprentice Relationship Specialty Start Date End Date Ashwin Arzola MD [address] [place] [address] PCP - General Internal Medicine 08/01/20 Sotero Connell MD [address] [place] [address] [phone] Specialist Cardiology 07/10/21 Blanco Edwards NP [address] [place] [address] [phone] Specialist Cardiology 08/02/22 documented as of this encounter
--- OUTSIDE RECORDS SUMMARY | 2025-07-20 00:56 | XMS_ITS | Encounter Summary ---
Author Organization [facility] Address [address] [place] [address] Care Team Providers Care Dope Sprayer Name Role Phone Dudley Brown MD Primary Care Provider Unavail able Nancy Vines DO Primary Care Pro vider Unavailable Ashwin Arzola MD Primary Care Provider [phone] Sotero Connell MD Unavailable [phone] Blanco Edwards NP Unavailable [phone] Encounter Details Date Type Department Care Team Description 11/04/2019 Refill Gastroenterology - [address] [place] [address] Dudley Brown MD Social History [...] on filedocumented in this encounter Care Teams Dope Sprayer Relationship Specialty Start Date End Date Dudley Brown MD PCP - General Internal Medicine 08/03/19 04/12/20 Nancy Vines DO PCP - General Internal Medicine 04/13/20 07/31/20 Ashwin Arzola MD [address] [place] [address] PCP - General Internal Medicine 08/01/20 Sotero Connell MD [address] [place] [address] Specialist Cardiology 07/10/21 Blanco Edwards NP [address] [place] [address] Specialist Cardiology 08/02/22 documented as of this encounter
--- OUTSIDE RECORDS SUMMARY | 2025-07-20 00:56 | XMS_ITS | Encounter Summary ---
Author Organization [facility] Address [address] [place] [address] Care Team Providers Care Integrated Marketing Specialist Name Role Phone Ashwin Arzola MD Primary Care Provider [phone] Sotero Connell MD Unavailable [phone] Blanco Edwards NP Unavailable [phone] Encounter Details Date Type Department Care Team Description 12/24/2021 Home Health Certification Medical Records [address] [place] [address] Social History Tobacco Use Types Packs/Day Years [...] have Coronavirus / COVID-19? No / Unsure 12/06/2021 8:01 AM EST documented as of this encounter Plan of Treatment Not on file documented as of this encounter Visit Diagnoses Not on filedocumented in this encounter Care Teams Integrated Marketing Specialist Relationship Specialty Start Date End Date Ashwin Arzola MD [address] [place] [address] [phone] PCP - General Internal Medicine 08/01/20 Sotero Connell MD [address] [place] [address] [phone] Specialist Cardiology 07/10/21 Blanco Edwards NP [address] [place] [address] [phone] Specialist Cardiology 08/02/22 documented as of this encounter
--- OUTSIDE RECORDS SUMMARY | 2025-07-20 00:56 | XMS_ITS | Encounter Summary ---
Author Organization [facility] Address [address] [place] [address] Care Team Providers Care Pest Control Pilot Name Role Phone Dudley Brown MD Primary Care Provider Unavail able Nancy Vines DO Primary Care Pro vider Unavailable Ashwin Arzola MD Primary Care Provider [phone] Sotero Connell MD Unavailable [phone] Blanco Edwards NP Unavailable [phone] Encounter Details Date Type Department Care Team Description 10/29/2019 Orders Only Gastroenterology - [address] [place] [address] Daisy Singh MD Adenopathy Social History Tobacco Use Types Packs/Day Years [...] Associated Diagnosis Comments CT ABD & PELVIS W/CONTRAST Routine 10/29/2019 Adenopathy documented in this encounter Results * CT ABD & PELVIS W/CONTRAST (10/29/2019) Daisy Singh MD CT SCANS documented in this encounter Visit Diagnoses Diagnosis Adenopathy Enlargement of lymph nodes documented in this encounter Care Teams Pest Control Pilot Relationship Specialty Start Date End Date Dudley Brown MD PCP - General Internal Medicine 08/03/19 04/12/20 Nancy Vines DO PCP - General Internal Medicine 04/13/20 07/31/20 Ashwin Arzola MD [address] [place] [address] [phone] PCP - General Internal Medicine 08/01/20 Sotero Connell MD [address] [place] [address] [phone] Specialist Cardiology 07/10/21 Blanco Edwards NP [address] [place] [address] [phone] Specialist Cardiology 08/02/22 documented as of this encounter
--- OUTSIDE RECORDS SUMMARY | 2025-07-20 00:56 | XMS_ITS | Encounter Summary ---
Author Organization [facility] Address [address] [place] [address] Care Team Providers Care Airplane Technician Name Role Phone Sujey Browning MD Primary Care Provider Un available Dudley Brown MD Primary Care Provider Unavail able Nancy Vines DO Primary Care Pro vider Unavailable Ashwin Arzola MD Primary Care Provider [phone] Sotero Connell MD Unavailable [phone] [facility] Unavailable [phone] Encounter Details Date Type Department Care Team Description 10/02/2017 Hospital Medical Records [address] [place] [address] Mitali Hughes MD Social History Tobacco Use [...] on filedocumented in this encounter Care Teams Airplane Technician Relationship Specialty Start Date End Date Sujey Browning MD PCP - General Internal Medicine 03/27/1608/02 Dudley Brown MD PCP - General Internal Medicine 08/03/19 04/12/20 Nancy Vines DO PCP - General Internal Medicine 04/13/20 07/31/20 Ashwin Arzola MD [address] [place] [address] [phone] PCP - General Internal Medicine 08/01/20 Sotero Connell MD [address] [place], [place] [phone] Specialist Cardiology 07/10/21 Blanco Edwards NP [address] [place] [address] [phone] Specialist Cardiology 08/02/22 documented as of this encounter
--- OUTSIDE RECORDS SUMMARY | 2025-07-20 00:56 | XMS_ITS | Encounter Summary ---
Author Organization [facility] Address [address] [place] [address] Care Team Providers Care Weatherization Specialist Name Role Phone Sujey Browning MD Primary Care Provider Un available Dudley Brown MD Primary Care Provider Unavail able Nancy Vines DO Primary Care Pro vider Unavailable Ashwin Arzola MD Primary Care Provider [phone] Sotero Connell MD Unavailable [phone] [place], [place] [address]Blanco chandler NP Unavailable [phone] Encounter Details Date Type Department Care Team Description 04/10/2017 Home Health Certification Medical Records [address] [place] [address] Sujey Browning MD Social History Tobacco Use [...] on filedocumented in this encounter Care Teams Weatherization Specialist Relationship Specialty Start Date End Date Sujey Browning MD PCP - General Internal Medicine 03/27/1608/02 Dudley Brown MD PCP - General Internal Medicine 08/03/19 04/12/20 Nancy Vines DO PCP - General Internal Medicine 04/13/20 07/31/20 Ashwin Arzola MD [address] [place] [address] [phone] PCP - General Internal Medicine 08/01/20 Sotero Connell MD [address] [place], [place] [phone] Specialist Cardiology 07/10/21 Blanco Edwards NP [address] [place] [address] [phone] Specialist Cardiology 08/02/22 documented as of this encounter
--- OUTSIDE RECORDS SUMMARY | 2025-07-20 00:56 | XMS_ITS | Encounter Summary ---
Author Organization [facility] Address [address] [place] [address] Care Team Providers Care Quality Worker Name Role Phone Sujey Browning MD Primary Care Provider Un available Dudley Brown MD Primary Care Provider Unavail able Nancy Vines DO Primary Care Pro vider Unavailable Ashwin Arzola MD Primary Care Provider Sotero Connell MD [facility]available [facility] Unavailable [phone] Encounter Details Date Type Department Care Team Description 03/26/2019 Estimator And Drafter Report Medical Records [address] [place] [address] Rehab., Carlos Social History Tobacco Use Types [...] on filedocumented in this encounter Care Teams Quality Worker Relationship Specialty Start Date End Date Sujey Browning MD PCP - General Internal Medicine 03/27/1608/02 Dudley Brown MD PCP - General Internal Medicine 08/03/19 04/12/20 Nancy Vines DO PCP - General Internal Medicine 04/13/20 07/31/20 Ashwin Arzola MD [address] [place] [address] PCP - General Internal Medicine 08/01/20 Sotero Connell MD [address] [place] [address] [phone] Specialist Cardiology 07/10/21 Blanco Edwards NP [address] [place] [address] [phone] Specialist Cardiology 08/02/22 documented as of this encounter
--- OUTSIDE RECORDS SUMMARY | 2025-07-20 00:56 | XMS_ITS | Encounter Summary ---
Author Organization [facility] Address [address] [place] [address] Care Team Providers Care Spanish Speaking Nanny Name Role Phone Ashwin Arzola MD Primary Care Provider [phone] Sotero Connell MD Unavailable [phone] Blanco Edwards NP Unavailable [phone] Encounter Details Date Type Department Care Team Description 11/17/2023 Hospital Medical Records [address] [place] [address] Kerri Wise Social History Tobacco Use Types [...] on filedocumented in this encounter Care Teams Spanish Speaking Nanny Relationship Specialty Start Date End Date Ashwin Arzola MD [address] [place], [place] [phone] PCP - General Internal Medicine 08/01/20 Sotero Connell MD [address] [place] [address] [phone] Specialist Cardiology 07/10/21 Blanco Edwards NP [address] [place] [address] [phone] Specialist Cardiology 08/02/22 documented as of this encounter
--- OUTSIDE RECORDS SUMMARY | 2025-07-20 00:56 | XMS_ITS | Encounter Summary ---
Author Organization [facility] Address [address] [place] [address] Care Team Providers Care Greige Goods Inspector Name Role Phone Ashwin Arzola MD Primary Care Provider Sotero Connell MD Unavailable [phone] Blanco Edwards NP Unavailable [phone] Reason for Referral * Non MIKE (Routine) - Closed Specialty Diagnoses / Procedures Referred By Contac t Referred To Contact Podiatry / Orthopedic Procedures REFERRAL TO PODIATRY (IN NETWORK) Ashwin Arzola MD [address] [place] [address] Linus Luna DPM [address] [address] Referral ID Status Reason Start Date Expiration Date Visits Re quested Visits Authorized [id number] Closed 09/17/2021 1 1 Reason for Visit * Reason Onset Date Comments Huc Ob Feedback 09/17/2021 Podiatry Encounter Details Date Type Department Care Team Description 09/17/2021 Telephone Adult Medicine [address] [address] Ashwin Arzola MD [address] [place] [address] Huc Ob Feedback (Podiatry) Social History Tobacco Use Types [...] insurance does the patient have today? Payor: [employer] / Plan: [employer] $0 [facility] [id number] / Product Type: HMO [id number] Effective 07/13/09: BCBS will not retro referral [...] insurance must be obtained and registered in [facility] or their referral can not be processed. [...] in this encounter Care Teams Greige Goods Inspector Relationship Specialty Start Date End Date Ashwin Arzola MD [address] [place] [address] PCP - General Internal Medicine 08/01/20 Sotero Connell MD [address] [place] [address] Specialist Cardiology 07/10/21 Blanco Edwards NP [address] [place] [address] Specialist Cardiology 08/02/22 documented as of this encounter
--- OUTSIDE RECORDS SUMMARY | 2025-07-20 00:56 | XMS_ITS | Encounter Summary ---
Author Organization [facility] Address [address] [place] [address] Care Team Providers Care Web Site Designer Name Role Phone Dudley Brown MD Primary Care Provider Unavail able Nancy Vines DO Primary Care Pro vider Unavailable Ashwin Arzola MD Primary Care Provider [phone] Sotero Connell MD Unavailable [phone] Blanco Edwards NP Unavailable [phone] Reason for Visit * Reason Onset Date Comments Testing 10/14/2019 CT Abd & Pelvis Encounter Details Date Type Department Care Team Description 10/14/2019 Telephone Adult Medicine [facility] [address] [place] [address] Daisy Singh MD Testing (CT Abd & [...] Yusra Villagomez - 10/14/2019 12:46 PM EST [facility] No auth required Order faxed to Marie - this office will contact patient to schedule appointment. Once scheduled they will contact Edward and inform us of the date and time of appointment. documented in this encounter Plan of Treatment Not on file documented as of this encounter Visit Diagnoses Not on filedocumented in this encounter Care Teams Web Site Designer Relationship Specialty Start Date End Date Dudley Brown MD PCP - General Internal Medicine 08/03/19 04/12/20 Nancy Vines DO PCP - General Internal Medicine 04/13/20 07/31/20 Ashwin Arzola MD [address] [place] [address] PCP - General Internal Medicine 08/01/20 Sotero Connell MD [address] [place] [address] Specialist Cardiology 07/10/21 Blanco Edwards NP [address] [place] [address] [phone] Specialist Cardiology 08/02/22 documented as of this encounter
--- OUTSIDE RECORDS SUMMARY | 2025-07-20 00:56 | XMS_ITS | Encounter Summary ---
Author Organization [facility] Address [address] [place] [address] Care Team Providers Care Fire Support Man Name Role Phone Sujey Browning MD Primary Care Provider Un available Dudley Brown MD Primary Care Provider Unavail able Nancy Vines DO Primary Care Pro vider Unavailable Ashwin Arzola MD Primary Care Provider [phone] Sotero Connell MD Unavailable [facility] Unavailable [phone] Reason for Visit * Reason Onset Date Comments medication problems 07/14/2019 Encounter Details Date Type Department Care Team Description 07/14/2019 Telephone Adult Medicine [address] [address] Dudley Brown MD medication problems Social History [...] on filedocumented in this encounter Care Teams Fire Support Man Relationship Specialty Start Date End Date Sujey Browning MD PCP - General Internal Medicine 03/27/1608/02 Dudley Brown MD PCP - General Internal Medicine 08/03/19 04/12/20 Nancy Vines DO PCP - General Internal Medicine 04/13/20 07/31/20 Ashwin Arzola MD [address] [place] [address] PCP - General Internal Medicine 08/01/20 Sotero Connell MD [address] [place] [address] Specialist Cardiology 07/10/21 Blanco Edwards NP [address] [place] [address] Specialist Cardiology 08/02/22 documented as of this encounter
--- OUTSIDE RECORDS SUMMARY | 2025-07-20 00:56 | XMS_ITS | Encounter Summary ---
Author Organization [facility] Address [address] [place] [address] Care Team Providers Care Quality Assurance Supervisor Body Name Role Phone Nancy Vines DO Primary Care Pro vider Unavailable Ashwin Arzola MD Primary Care Provider [phone] Sotero Connell MD Unavailable [phone] Blanco Edwards NP Unavailable [phone] Encounter Details Date Type Department Care Team Description 05/11/2020 Cna Report Medical Records [address] [place] [address] Maty Espinoza II Social History Tobacco Use [...] filedocumented in this encounter Care Teams Quality Assurance Supervisor Body Relationship Specialty Start Date End Date Nancy Vines DO PCP - General Internal Medicine 04/13/20 07/31/20 Ashwin Arzola MD [address] [place] [address] [phone] PCP - General Internal Medicine 08/01/20 Sotero Connell MD [address] [place] [address] [phone] Specialist Cardiology 07/10/21 Blanco Edwards NP [address] [place] [address] [phone] Specialist Cardiology 08/02/22 documented as of this encounter
--- OUTSIDE RECORDS SUMMARY | 2025-07-20 00:56 | XMS_ITS | Encounter Summary ---
Author Organization [facility] Address [address] [place] [address] Care Team Providers Care General Matcher Name Role Phone Sujey Browning MD Primary Care Provider Un available Dudley Brown MD Primary Care Provider Unavail able Nancy Vines DO Primary Care Pro vider Unavailable Ashwin Arzola MD Primary Care Provider [phone] Sotero Connell MD Unavailable [phone] Blanco Edwards NP Unavailable [phone] Reason for Visit * Reason Onset Date Comments Faxed Order 04/09/2017 Encounter Details Date Type Department Care Team Description 04/09/2017 Telephone Adult Medicine [address] [address] Sujey Browning MD Faxed Order Social History [...] * Telephone Encounter - Ghada Abbasi - 04/09/2017 2:44 PM EDT WILMER RODRIGUEZ IS FAXING ORDERS TO BE SIGNED AND FAX BACK TO [phone]. documented in this encounter Plan of Treatment Not on file documented as of this encounter Visit Diagnoses Not on filedocumented in this encounter Care Teams General Matcher Relationship Specialty Start Date End Date Sujey Browning MD PCP - General Internal Medicine 03/27/1608/02 Dudley Brown MD PCP - General Internal Medicine 08/03/19 04/12/20 Nnacy Vines DO PCP - General Internal Medicine 04/13/20 07/31/20 Ashwin Arzola MD [address] [place] [address] [id number] PCP - General Internal Medicine 08/01/20 Sotero Connell MD [address] [place] [address] [phone] Specialist Cardiology 07/10/21 Blanco Edwards NP [address] [place] [address] [phone] Specialist Cardiology 08/02/22 documented as of this encounter
--- OUTSIDE RECORDS SUMMARY | 2025-07-20 00:56 | XMS_ITS | Encounter Summary ---
Author Organization [facility] Address [address] [place] [address] Care Team Providers Care Warehouse Shipping Receiving Clerk Name Role Phone Nancy Vines DO Primary Care Pro vider Unavailable Ashwin Arzola MD Primary Care Provider [phone] Sotero Connell MD Unavailable [phone] Blanco Edwards NP Unavailable [phone] Encounter Details Date Type Department Care Team Description 04/18/2020 Orders Only Radiology - [address] [phone] Nancy Vines DO Social History Tobacco Use [...] on filedocumented in this encounter Care Teams Warehouse Shipping Receiving Clerk Relationship Specialty Start Date End Date Nancy Vines DO PCP - General Internal Medicine 04/13/20 07/31/20 Ashwin Arzola MD [address] [place] [address] [phone] PCP - General Internal Medicine 08/01/20 Sotero Connell MD [address] [place] [address] Specialist Cardiology 07/10/21 Blanco Edwards NP [address] [place] [address] Specialist Cardiology 08/02/22 documented as of this encounter
--- OUTSIDE RECORDS SUMMARY | 2025-07-20 00:56 | XMS_ITS | Encounter Summary ---
Author Organization [facility] Address [address] [place] [address] Care Team Providers Care Ink Blender Name Role Phone Ashwin Arzola MD Primary Care Provider [phone] Sotero Connell MD Unavailable [phone] Blanco Edwards NP Unavailable Encounter Details Date Type Department Care Team Description 11/13/2021 Hospital Medical Records [address] [place] [address] Social History Tobacco Use Types Packs/Day Years [...] on filedocumented in this encounter Care Teams Ink Blender Relationship Specialty Start Date End Date Ashwin Arzola MD [address] [place] [address] PCP - General Internal Medicine 08/01/20 Sotero Connell MD [address] [place] [address] Specialist Cardiology 07/10/21 Blanco Edwards NP [address] [place] [address] Specialist Cardiology 08/02/22 documented as of this encounter
--- OUTSIDE RECORDS SUMMARY | 2025-07-20 00:56 | XMS_ITS | Encounter Summary ---
Author Organization [facility] Address [address] [place] [address] Care Team Providers Care Ice Cream Server Name Role Phone Sujey Browning MD Primary Care Provider Un available Dudley Brown MD Primary Care Provider Unavail able Nancy Vines DO Primary Care Pro vider Unavailable Ashwin Arzola MD Primary Care Provider [phone] Sotero Connell MD Unavailable [phone] [facility] Unavailable [phone] Encounter Details Date Type Department Care Team Description 10/01/2017 Release of Information Medical Records [address] [place] [id number] Abstract, Provider Social History Tobacco Use Types [...] on filedocumented in this encounter Care Teams Ice Cream Server Relationship Specialty Start Date End Date Sujey Browning MD PCP - General Internal Medicine 03/27/1608/02 Dudley Brown MD PCP - General Internal Medicine 08/03/19 04/12/20 Nancy Vines DO PCP - General Internal Medicine 04/13/20 07/31/20 Ashwin Arzola MD [address] [place] [address] [phone] PCP - General Internal Medicine 08/01/20 Sotero Connell MD [address] [place] [address] [phone] Specialist Cardiology 07/10/21 Blanco Edwards NP [address] [place] [address] [phone] Specialist Cardiology 08/02/22 documented as of this encounter
--- OUTSIDE RECORDS SUMMARY | 2025-07-20 00:56 | XMS_ITS | Encounter Summary ---
Author Organization [facility] Address [address] [place] [address] Care Team Providers Care Pole Peeler Name Role Phone Ashwin Arzola MD Primary Care Provider [phone] Sotero Connell MD Unavailable [phone] Blanco Edwards NP Unavailable [phone] Encounter Details Date Type Department Care Team Description 11/12/2021 [facility] Medical Records [address] [place] [id number] Abstract, Provider Social History Tobacco Use Types [...] on filedocumented in this encounter Care Teams Pole Peeler Relationship Specialty Start Date End Date Ashwin Arzola MD [address] [place] [address] [phone] PCP - General Internal Medicine 08/01/20 Sotero Connell MD [address] [place] [phone] Specialist Cardiology 07/10/21 Blanco Edwards NP [address] [place] [address] Specialist Cardiology 08/02/22 documented as of this encounter
--- OUTSIDE RECORDS SUMMARY | 2025-07-20 00:56 | XMS_ITS | Encounter Summary ---
Author Organization [facility] Address [address] [place] [address] Care Team Providers Care Denture Processor Name Role Phone Dudley Brown MD Primary Care Provider Unavail able Nancy Vines DO Primary Care Pro vider Unavailable Ashwin Arzola MD Primary Care Provider [phone] Sotero Connell MD Unavailable [phone] Blanco Edwards NP Unavailable Reason for Visit * Reason Onset Date Comments medication problems 11/04/2019 Encounter Details Date Type Department Care Team Description 11/04/2019 Telephone Gastroenterology - [place] [address] [facility] [address] [place] [address] Daisy Singh MD medication problems Social History Tobacco Use [...] encounter Miscellaneous Notes * Telephone Encounter - Julisa Ulloa - 11/04/2019 1:37 PM EST Ranitidine-tablet can Be ordered as a capsule @ 150millgram if not capsule can order: 2 tabs @ 75mg. The medication is on manufactuer backorder and no idea when it when be restocked. . Send new script order patient. documented in this encounter Plan of Treatment Not on file documented as of this encounter Visit Diagnoses Not on filedocumented in this encounter Care Teams Denture Processor Relationship Specialty Start Date End Date Dudley Brown MD PCP - General Internal Medicine 08/03/19 04/12/20 Nancy Vines DO PCP - General Internal Medicine 04/13/20 07/31/20 Ashwin Arzola MD [address] [place] [address] PCP - General Internal Medicine 08/01/20 Sotero Connell MD [address] [place] [address] [phone] Specialist Cardiology 07/10/21 Blanco Edwards NP [address] [place] [address] [phone] Specialist Cardiology 08/02/22 documented as of this encounter
--- OUTSIDE RECORDS SUMMARY | 2025-07-20 00:56 | XMS_ITS | Encounter Summary ---
Author Organization [facility] Address [address] [place] [address] Care Team Providers Care Cavalry Officer Name Role Phone Ashwin Arzola MD Primary Care Provider [phone] Sotero Connell MD Unavailable [phone] Blanco Edwards NP Unavailable [phone] Encounter Details Date Type Department Care Team Description 11/12/2023 Field Service Manager Report Medical Records [address] [place] [phone] Scott Lawson Social History Tobacco Use Types [...] on filedocumented in this encounter Care Teams Cavalry Officer Relationship Specialty Start Date End Date Ashwin Arzola MD [address] [place] [address] [phone] PCP - General Internal Medicine 08/01/20 Sotero Connell MD [address] [place] [address] [phone] Specialist Cardiology 07/10/21 Blanco Edwards NP [address] [place] [address] [phone] Specialist Cardiology 08/02/22 documented as of this encounter
--- OUTSIDE RECORDS SUMMARY | 2025-07-20 00:56 | XMS_ITS | Encounter Summary ---
Author Organization [facility] Address [address] [place] [address] Care Team Providers Care Veterinary Virus Serum Inspector Name Role Phone Ashwin Arzola MD Primary Care Provider [phone] Sotero Connell MD Unavailable [phone] Blanco Edwards NP Unavailable [phone] Reason for Visit * Reason Onset Date Comments Faxed Order 11/26/2023 [facility] Ord er # [id number] Encounter Details Date Type Department Care Team Description 11/26/2023 Telephone Adult Medicine [address] [phone] Ashwin Arzola MD [address] [place] [phone] Faxed Order ([facility] Order # [id number]) Social History Tobacco Use Types Packs/Day Years [...] Ricarda Welch - 11/26/2023 10:55 AM EST [facility] Order # [id number] documented in this encounter Plan of Treatment Not on file documented as of this encounter Visit Diagnoses Not on filedocumented in this encounter Care Teams Veterinary Virus Serum Inspector Relationship Specialty Start Date End Date Ashwin Arzola MD [address] [place] [phone] PCP - General Internal Medicine 08/01/20 Sotero Connell MD [address] [place] [address] [phone] Specialist Cardiology 07/10/21 Blanco Edwards NP [address] [place] [address] [phone] Specialist Cardiology 08/02/22 documented as of this encounter
--- OUTSIDE RECORDS SUMMARY | 2025-07-20 00:56 | XMS_ITS | Encounter Summary ---
Author Organization [facility] Address [address] [place] [address] Care Team Providers Care Medical Library Assistant Name Role Phone Dudley Brown MD Primary Care Provider Unavail able Nancy Vines DO Primary Care Pro vider Unavailable Ashwin Arzola MD Primary Care Provider [phone] Sotero Connell MD Unavailable [phone] Blanco Edwards NP Unavailable [phone] Encounter Details Date Type Department Care Team Description 08/26/2019 Attending Pathologist Report Medical Records [address] [place] [address] Social History Tobacco Use Types Packs/Day Years [...] filedocumented in this encounter Care Teams Medical Library Assistant Relationship Specialty Start Date End Date Dudley Brown MD PCP - General Internal Medicine 08/03/19 04/12/20 Nancy Vines DO PCP - General Internal Medicine 04/13/20 07/31/20 Ashwin Arzola MD [address] [place], [place] [phone] PCP - General Internal Medicine 08/01/20 Sotero Connell MD [address] [place] [address] Specialist Cardiology 07/10/21 Blanco Edwards NP [address] [place] [address] Specialist Cardiology 08/02/22 documented as of this encounter
--- OUTSIDE RECORDS SUMMARY | 2025-07-20 00:56 | XMS_ITS | Encounter Summary ---
Author Organization [facility] Address [address] [place] [address] Care Team Providers Care Director Of Respiratory Therapy Name Role Phone Sujey Browning MD Primary Care Provider Un available Dudley Brown MD Primary Care Provider Unavail able Nancy Vines DO Primary Care Pro vider Unavailable Ashwin Arzola MD Primary Care Provider [phone] Sotero Connell MD Unavailable [phone] [facility] Unavailable [phone] Reason for Visit * Reason Comments E-prescribe Rx Request Encounter Details Date Type Department Care Team Description 04/23/2019 Refill Adult Medicine [address] [address] Sujey Browning MD E-prescribe Rx Request Social [...] N/A Patients current insurance carrier is: Payor: [employer] FFS / Plan: [employer] / Product Type: MEDICAID RISK documented in this encounter Plan of Treatment Not on file documented as of this encounter Visit Diagnoses Not on filedocumented in this encounter Care Teams Director Of Respiratory Therapy Relationship Specialty Start Date End Date Sujey Browning MD PCP - General Internal Medicine 03/27/1608/02 Dudley Brown MD PCP - General Internal Medicine 08/03/19 04/12/20 Nancy Vines DO PCP - General Internal Medicine 04/13/20 07/31/20 Ashwin Arzola MD [address] [place] [address] [phone] PCP - General Internal Medicine 08/01/20 Sotero Connell MD [address] [place] [address] [phone] Specialist Cardiology 07/10/21 Blanco Edwards NP [address] [place] [phone] Specialist Cardiology 08/02/22 documented as of this encounter
[2025-07-20 01:09] LABS: Alanine Aminotransferase 13 U/L (0-31); Albumin Level 3.6 g/dL (3.5-5.0); Alkaline Phosphatase 61 U/L (39-117); Anion Gap 9 (12-20); Aspartate Amino Transferase 15 U/L (5-31); Blood Urea Nitrogen 11 mg/dL (9-16); Calcium 8.5 mg/dL (8.4-10.2); Carbon Dioxide 28 mmol/L (22-29); Chloride 109 mmol/L (96-108); Creatinine Clr Calc Pharmacy 64.9; Estimated Glomerular Filt Rate > 60; Lipase 27 U/L (8-78); Potassium 3.4 mmol/L (3.3-5.1); Sodium 143 mmol/L (135-145); Total Protein 6.3 g/dL (6.5-8.0)
[2025-07-20 01:15] LABS: COVID-19 Test Negative (Negative); IDNOW Serial# 55D5AD1C; IDNOW Serial# 58CA691E; Influenza B2 Negative (Negative)
--- NOTE | 2025-07-20 01:41 | ED.GENADULT ---
HPI - General Adult General Chief complaint: General Medical Stated complaint: LOW BLOOD SUGAR/SOB Time Seen by Provider: 07/20/25 00:40 Source: patient and EMS Mode of arrival: EMS Limitations: no limitations History of Present Illness ED Provider: Dr. Floridalma Manley HPI narrative: Patient comes to the emergency room complaining of low blood sugars per her monitor. Patient states that she has seen glucose levels that are in the 50s. Patient states that she called EMS. When they checked her glucose, it was greater than 100. Her glucose per EMS was never below 100. At this time, patient states that she feels well and has no complaints. Patient states that she believes that she has lost a significant amount of weight with her diet and is requiring less insulin. , patient states that she was here and her insulin was lowered to 20 units of Lantus Related Data Home Medications ?Medication ?Instructions ?Recorded ?Confirmed blood sugar diagnostic (OneTouch #10 ea 09/27/22 07/07/25 Ultra Test strips) lancets 33 gauge (OneTouch Delica #100 ea 09/27/22 07/07/25 Plus Lancet) docusate sodium 100 mg capsule 100 mg PO BID 11/16/23 07/07/25 sennosides 8.6 mg tablet (senna) 8.6 mg PO DAILY 11/16/23 07/07/25 amitriptyline 150 mg tablet 150 mg PO BEDTIME 04/11/24 07/07/25 gabapentin 300 mg capsule 300 mg PO TID 04/11/24 07/07/25 fluticasone fur. 100 mcg-umeclid 1 ea inhalation DAILY 10/26/24 07/07/25 62.5 mcg-vilant 25 mcg inhalat.powder (Trelegy Ellipta) clonazepam 0.5 mg tablet 0.5 mg PO TID PRN Pain 12/23/24 07/07/25 duloxetine 20 mg capsule,delayed 60 mg PO DAILY 12/23/24 07/07/25 release loratadine 10 mg tablet 10 mg PO DAILY 12/23/24 07/07/25 metformin 500 mg tablet,extended 500 mg PO DAILY 12/23/24 07/07/25 release 24 hr metoclopramide HCl 10 mg tablet 10 mg PO QID 12/23/24 07/07/25 metoprolol tartrate 25 mg tablet 25 mg PO DAILY 12/23/24 07/07/25 montelukast 10 mg tablet 10 mg PO BEDTIME 12/23/24 07/07/25 potassium chloride 20 mEq 20 meq PO DAILY 12/23/24 07/07/25 tablet,extended release(part/cryst) budesonide-formoterol HFA 160 inhalation 02/03/25 07/07/25 mcg-4.5 mcg/actuation aerosol inhaler ciclopirox 0.77 % topical gel 1 appl topical BID 02/03/25 07/07/25 famotidine 20 mg tablet 20 mg PO DAILY 02/03/25 07/07/25 magnesium oxide 400 mg PO DAILY 02/03/25 07/07/25 pantoprazole 40 mg tablet,delayed 40 mg PO DAILY 02/03/25 07/07/25 release albuterol sulfate 2.5 mg/3 mL mg continuous nebulization 04/25/25 07/07/25 (0.083 %) solution for nebulization albuterol sulfate 90 mcg/actuation 2 puff inhalation Q6H PRN wheezing 04/25/25 07/07/25 aerosol inhaler lisinopril 10 mg tablet 10 mg PO DAILY 04/25/25 07/07/25 nitroglycerin 0.4 mg sublingual 0.4 mg sublingual Q5M PRN 04/25/25 07/07/25 tablet omeprazole 20 mg tablet,delayed 40 mg PO BID 04/25/25 07/07/25 release tiotropium bromide 18 mcg capsule 1 cap inhalation DAILY 04/25/25 07/07/25 with inhalation device (Spiriva with HandiHaler) Previous Rx's ?Medication ?Instructions ?Recorded atorvastatin 80 mg tablet 80 mg PO BEDTIME #0 tabs 10/29/23 insulin glargine 100 unit/mL 10 unit (0.1 mL) subcut BEDTIME 12/25/24 subcutaneous solution (Lantus #10 mL U-100 Insulin) prednisone 20 mg tablet 40 mg (2 x 20 mg) PO DAILY #10 tabs 02/09/25 prednisone 20 mg tablet 40 mg (2 x 20 mg) PO DAILY 5 days 02/27/25 #10 tabs sennosides 8.6 mg-docusate sodium 2 tab-cap (2 x 8.6-50 mg) PO 03/22/25 50 mg tablet (Senna with Docusate BEDTIME 60 days #120 tabs Sodium) polyethylene glycol 3350 17 17 g PO BID 30 days #1,020 grams 06/27/25 gram/dose oral powder (Miralax) tramadol 50 mg tablet 50 mg PO Q8H PRN Pain #60 tabs 07/01/25 bisacodyl 5 mg tablet,delayed 10 mg (2 x 5 mg) PO ONCE colon 07/07/25 release (Dulcolax (bisacodyl)) prep 5 days #10 tabs polyethylene glycol 3350 17 17 g PO DAILY colon prep 1 day 07/07/25 gram/dose oral powder (Miralax) #238 grams Allergies Allergy/AdvReac Type Severity Reaction Status Date / Time Penicillins Allergy Mild Swelling Verified 07/20/25 00:29 Review of Systems Review of Systems: Constitutional : No Weight loss, No Fever, No Chills, No Night Sweats, No Fatigue, No Malaise ENT/Mouth : No Hearing loss, No Ear Pain, No Nasal Congestion, No Sinus Pain, No Hoarseness, No sore throat, No Rhinorrhea, No Swallowing Difficulty Eyes: No Eye Pain, No Swelling, No Redness, No Foreign Body, No Discharge, No Vision Changes Cardiovascular : No Chest Pain, No SOB, No Dyspnea on Exertion, No Orthopnea, No Edema, No Palpitations Respiratory : No Cough, No Sputum, No Wheezing, No Smoke Exposure, No Dyspnea Gastrointestinal : No Nausea, No Vomiting, No Diarrhea, No Constipation, No abdominal Pain, No Hematochezia, No Melena Genitourinary : no irregular bleeding, No Dysuria, No Urinary Frequency, No Hematuria, No Urinary Incontinence, No Urgency, No Flank Pain, No Urinary Flow Changes, No Hesitancy Musculoskeletal : No joint pain, No Myalgias, No Joint Swelling Skin : No Skin Lesions, No rash Neuro : No Weakness, No Numbness, No Paresthesias, No Loss of Consciousness, No Dizziness, No Headache Psych : No Anxiety/Panic, No Depression, No SI/HI/AH/VH, No Social Issues, Heme/Lymph: No Bruising, No Bleeding,No Lymphadenopathy Endocrine : Complaining of episodes of hypoglycemia, No Polyuria, No Polydipsia, No Temperature Intolerance PMFSH Past Medical History Medical History Rheumatoid arthritis Cervical spondylitis Depression Headache Dyslipidemia Hypertension Cerebral aneurysm, nonruptured Seizure disorder JOSÉ (obstructive sleep apnea) Delusions Major neurocognitive disorder Chest pain Dyspnea on exertion COVID-19 GERD (gastroesophageal reflux disease) DJD (degenerative joint disease) COPD (chronic obstructive pulmonary disease) Bipolar disorder CTS (carpal tunnel syndrome) Hx of rheumatoid arthritis Diabetic neuropathy Urinary incontinence Aneurysm of middle cerebral artery Pulmonary nodules CHF (congestive heart failure) Palpitations Migraine History of COVID-19 Mild aortic stenosis Asthma Insulin dependent type 2 diabetes mellitus Mixed hyperlipidemia Mood disorder Essential hypertension Surgical History History of esophagogastroduodenoscopy (EGD) No pertinent past surgical history Hx of cataract surgery H/O: hysterectomy Hx of cholecystectomy History of carpal tunnel release Family History Family History Mother Myocardial infarction Father Myocardial infarction Sister Breast cancer Brother Spleen cancer Social History Social History Household Members: None Housing: Apartment Do you presently have visiting 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) Alcohol intake: never Comment: report given by Cleo menendez Patient Tobacco Use Status: Never used Tobacco Tobacco use type: Cigarette Cigarette Packs Per Day: 0.2 Cigarettes Per Day: 4.0 Years Smoked: 2330-3478 Smoked in Last 30 Days: No e-Cigarette/Vaping Use: Never Used Second Hand Smoke Exposure: No Use of substances other than those prescribed or required for medical reasons: No Advance Directives: Yes Advance Directives on File: Yes Advance Directives Date on File: 11/20/23 service: No Current occupational status: retired Sexual orientation: Straight/Heterosexual Physical Exam ED Exam Exam: Appearance: Alert. Oriented X3. No acute distress. Eyes: Pupils equal, round and reactive to light. ENT: Pharynx normal. Neck: Normal inspection. Neck supple. No lymph nodes noted. No crepitus CVS: Normal heart rate and rhythm. Pulses normal. Normal S1 and S2 Respiratory: No respiratory distress. Breath sounds normal. No Wheezing. No rales Abdomen: Soft and nontender. No rigidity. No distention. Skin: Skin warm and dry. Normal skin color. Normal skin turgor. Extremities: No lower extremity edema. No Lacerations. No Rash Neuro: Oriented X 3. No motor deficit. No sensory deficit. Moving all extremities. No slurred speech. CN 2 through 12 grossly intact Psych: calm, cooperative, normal affect Vital Signs: Vital Signs - 24 hr 07/20/25 00:23 07/20/25 00:31 Temperature 98.1 F Pulse Rate 70 Respiratory Rate 16 16 Blood Pressure 147/51 H Pulse Oximetry 94 Oxygen Delivery Method Room Air BMI result Body Mass Index 34.0 Medical Decision Making Medical Decision Making [facility] Narrative: My interpretation of labs: No significant abnormality in patient's hematology or chemistry, normal LFTs, glucose 180 Patient feels well, is asymptomatic. Patient showed me her monitor, I did not see any glucose levels in the 50s, they were mostly in the 70s and [address]. [address]. I discussed with the patient to once again decrease her Lantus level this time to 10 units at night and to have close follow-up with the primary care physician. Patient agrees with plan. Differential Diagnosis Differential Diagnoses: The differential diagnosis associated with the presentation includes (Hypoglycemia, monitor error) Lab Data [facility] Lab Attestation statement: I reviewed the patient's lab results. 07/20/25 00:46 07/20/25 00:46 Labs: Lab Results 07/20/25 07/20/25 Range/Units 00:12 00:46 WBC 6.8 (4.8-10.8) X10*3/uL RBC 3.88 L (4.20-5.50) X10*6/uL Hgb 10.5 L (12.0-16.0) g/dl Hct 32.3 L (37.0-47.0) % MCV 83.2 (80.0-98.0) fL MCH 27.1 (27.0-33.0) pg MCHC 32.5 (31.0-35.0) g/dl RDW 17.2 H (11.0-16.0) % Plt Count 185 (160-400) X10*3/uL MPV 10.8 (9.4-12.3) fL Immature Gran % (Auto) 0.1 (0.0-0.4) % Neut % (Auto) 64.8 (45-73) % Lymph % (Auto) 23.2 (20-40) % Bryan % (Auto) 10.3 (2-11) % Eos % (Auto) 1.3 (0-4) % Baso % (Auto) 0.3 (0-2) % Lymph # (Auto) 1.6 (1.2-4.9) X10*3/uL Bryan # (Auto) 0.7 (0.1-1.2) X10*3/uL Eos # (Auto) 0.1 (0.0-0.4) X10*3/uL Baso # (Auto) 0.0 (0.0-0.2) X10*3/uL Abs Immat Gran (auto) 0.01 (0.00-0.03) X10*3/uL Absolute Neuts (auto) 4.4 (2.0-8.3) x10*3/uL Absolute Nucleated RBC 0.000 (0.0-0.012) X10*3/uL Nucleated RBC % (auto) 0.0 (0.0-0.2) /100WBC Sodium 143 (135-145) mmol/L Potassium 3.4 (3.3-5.1) mmol/L Chloride 109 H (96-108) mmol/L Carbon Dioxide 28 (22-29) mmol/L Anion Gap 9 L (12-20) BUN 11 (9-16) mg/dL Creatinine 0.80 (0.5-1.4) mg/dL Estim Creat Clear Calc 64.9 Estimated GFR > 60 POC Glucose 173 H (60-115) mg/dL Random Glucose 180 H (60-115) mg/dL Calcium 8.5 (8.4-10.2) mg/dL Total Bilirubin 0.2 (0.0-1.0) mg/dL Direct Bilirubin < 0.2 (0.0-0.5) mg/dL AST 15 (5-31) U/L ALT 13 (0-31) U/L Alkaline Phosphatase 61 (39-117) U/L Total Protein 6.3 L (6.5-8.0) g/dL Albumin 3.6 (3.5-5.0) g/dL Lipase 27 (8-78) U/L COVID-19 (RENETTA) Negative (Negative) COVID-19 Clin Com See Note Influenza Type A (SHARON) Negative (Negative) Influenza Type B (SHARON) Negative (Negative) Influenza A & B Note See Note Discharge Plan Discharge Clinical Impression: Hypoglycemia Patient Disposition: Home, Self-Care Instructions: Hypoglycemia in a Person with Diabetes (ED) Additional Instructions: Please reduce her Lantus dose to 10 units at night. Please discuss with your primary care physician that you are having episodes of low blood sugar throughout the day. Prescriptions: No Action albuterol sulfate 2.5 mg /3 mL (0.083 %) solution for nebulization continuous nebulization albuterol sulfate 90 mcg/actuation HFA aerosol inhaler 2 puff inhalation Q6H PRN (Reason: wheezing) lisinopril 10 mg tablet 10 mg PO DAILY nitroglycerin 0.4 mg tablet, sublingual 0.4 mg sublingual Q5M PRN Rx Instructions: do not exceed 3 doses per episode tiotropium bromide [Spiriva with HandiHaler] 18 mcg capsule, w/inhalation device 1 cap inhalation DAILY Rx Instructions: puncture 1 cap using device; one dose = 2 inhalations omeprazole 20 mg tablet,delayed release (DR/EC) 40 mg PO BID polyethylene glycol 3350 [Miralax] 17 gram/dose powder 17 g PO BID 30 Days Qty: 1020 0RF tramadol 50 mg tablet 50 mg PO Q8H PRN (Reason: Pain) Qty: 60 0RF Rx Instructions: 1x refill from covering provider bisacodyl [Dulcolax (bisacodyl)] 5 mg tablet,delayed release (DR/EC) 10 mg PO ONCE 5 Days Qty: 10 0RF Rx Instructions: Take 2 tablets at 12 pm starting 5 days before colonoscopy polyethylene glycol 3350 [Miralax] 17 gram/dose powder 17 g PO DAILY 1 Days Qty: 238 0RF Rx Instructions: Mix Miralax with 64 oz(8 cups) of Crystal light. Take 2 tablets of Dulcolax qt 12 pm. Wait to have your 1st bowel movement, then begin drinking Miralax. Drink a glass of Miralax every 10-15 minutes until you are finished. You will drink at least another 4 cups of clear liquid of your choice over the next 2 hours. Please drink as many clear liquids as possible You may have clear liquids up to four hours before your procedure atorvastatin 80 mg Tablet 80 mg PO BEDTIME Qty: 0 0RF sennosides [senna] 8.6 mg tablet 8.6 mg PO DAILY docusate sodium 100 mg capsule 100 mg PO BID Trelegy Ellipta 100-62.5-25 mcg blister with device 1 ea inhalation DAILY amitriptyline 150 mg tablet 150 mg PO BEDTIME Rx Instructions: with 50 mg gabapentin 300 mg capsule 300 mg PO TID metformin 500 mg tablet extended release 24 hr 500 mg PO DAILY clonazepam 0.5 mg tablet 0.5 mg PO TID PRN (Reason: Pain) potassium chloride 20 mEq tablet,ER particles/crystals 20 meq PO DAILY Rx Instructions: not on list/ patient unsure if taking or not montelukast 10 mg tablet 10 mg PO BEDTIME loratadine 10 mg tablet 10 mg PO DAILY metoclopramide HCl 10 mg tablet 10 mg PO QID metoprolol tartrate 25 mg tablet 25 mg PO DAILY duloxetine 20 mg capsule,delayed release(DR/EC) 60 mg PO DAILY insulin glargine [Lantus U-100 Insulin] 100 unit/mL solution 10 unit subcut BEDTIME Qty: 10 0RF budesonide-formoterol 160-4.5 mcg/actuation Hfa Aerosol Inhaler INHALATION ciclopirox 0.77 % Gel 1 appl TOPICAL BID famotidine 20 mg Tablet 20 mg PO DAILY pantoprazole 40 mg Tablet,Delayed Release (Dr/Ec) 40 mg PO DAILY magnesium oxide 400 mg magnesium Capsule 400 mg PO DAILY prednisone 20 mg tablet 40 mg PO DAILY Qty: 10 0RF prednisone 20 mg tablet 40 mg PO DAILY 5 Days Qty: 10 0RF (DME) lancets [OneTouch Delica Plus Lancet] 33 gauge misc See Rx Instructions .ROUTE BID Qty: 100 Rx Instructions: As directed (DME) OneTouch Ultra Test Strip See Rx Instructions .ROUTE BID Qty: 10 Rx Instructions: As directed sennosides-docusate sodium [Senna with Docusate Sodium] 8.6-50 mg tablet 2 tab-cap PO BEDTIME 60 Days Qty: 120 2RF Rx Instructions: Please take every day at bedtime Print Language: Occitan
[2025-07-20 01:52] VITALS: BP 138/48; PULSE 65; RESP 18; TEMP 36.8; O2SAT 95
[2025-07-20 02:50] VITALS: BP 138/48; PULSE 65; RESP 18; TEMP 36.8; O2SAT 95
[2025-07-20 02:54] LABS: Glucose, Whole Blood 126 mg/dL (60-115)
== END 2025-07-20 02:50 | disposition home or self-care (01) ==
PROVIDERS: Emergency Provider Emergency Medicine; PCP Internal Medicine
DX: E11.649 Type 2 diabetes mellitus with hypoglycemia without coma (principal); R06.02 Shortness of breath; R05.9 Cough, unspecified; I10 Essential (primary) hypertension; Z79.4 Long term (current) use of insulin; Z79.899 Other long term (current) drug therapy; Z11.52 Encounter for screening for COVID-19
CPT/HCPCS: 71046; 80048; 80076; 82947; 83690; 85025; 87502; 87635; 99283; 99284

== ENCOUNTER → 2025-07-20 01:04 | Outpatient (BNV) | payer OTHER, SELFPAY | PROVIDERS: Emergency Provider Emergency Medicine; PCP Internal Medicine; Visit Provider Radiology Diagnostic Radiology | DX: I51.7 Cardiomegaly (principal) | CPT/HCPCS: 71046 ==

== ENCOUNTER 2025-08-09 08:15 | Outpatient (REF) | payer OTHER, SELFPAY ==
--- NOTE | ~2025-08-09 | CT_ITS ---
CLINICAL HISTORY: I67.1 - Cerebral aneurysm, nonruptured CT head without contrast CT angiography head with contrast. 3D Postprocessing. Comparison: 12/23/2024 Findings: Stable laterally projecting 3 mm right M1 bifurcation aneurysm. Otherwise no aneurysm, significant stenosis, AVM, or dissection at level of the visualized arteries. No abnormal intracranial enhancement. Patent dural venous sinuses. No intra-axial mass, midline shift, hydrocephalus, or acute hemorrhage. Mild age-related cerebral hemispheric white matter ischemic changes. Bilateral cataract surgery. No acute fracture. Clear paranasal sinuses and left mastoid air cells. Sclerotic/hypoplastic right mastoid air cells as before IMPRESSION: No acute intracranial finding. Stable laterally projecting 3 mm right M1 bifurcation aneurysm. Otherwise no aneurysm, significant stenosis, AVM, or dissection at level of the visualized arteries. This document has been electronically signed by: Chasidy Berry MD on 08/09/2025 11:57:49
--- OUTSIDE RECORDS SUMMARY | 2025-08-09 08:44 | XMS_ITS | Clinical Summary ---
Author Organization [facility] Address [address] [place] [id number] Phone Care Team Providers Care Manager Retail Store Name Role Phone Unavailable Primary Care Provider [...] file Medical Devices Not on file Insurance [facility] [employer] REPLACEMENT [facility] MEDICARE [facility]PLACEMENT MEDICARE REPLACEMENT [facility] MEDICARE REPLACEMENT [facility] MEDICARE REPLACEMENT [facility] MEDICARE REPLACEMENT Additional Source Comments The information contained in this document represents components of the legal health record. It is not the complete legal health record.[facility]
[2025-08-09] MEDS: iohexoL 350 MG/ML 100 ML INFUS..BTL 75 ML IV (09:43)
== END 2025-08-09 08:16 | disposition home or self-care (01) ==
LOC: HO.CT 08:15
PROVIDERS: PCP Internal Medicine; Visit Provider Registered Nurse
DX: I67.1 Cerebral aneurysm, nonruptured (principal)
CPT/HCPCS: 70496; Q9967

== ENCOUNTER → 2025-08-09 08:16 | Outpatient (BNV) | payer OTHER, SELFPAY | PROVIDERS: PCP Internal Medicine; Visit Provider Radiology Diagnostic Radiology | DX: I67.1 Cerebral aneurysm, nonruptured (principal); R90.82 White matter disease, unspecified | CPT/HCPCS: 70496; 70498 ==

== ENCOUNTER 2025-09-06 10:25 | Outpatient (AMB) | payer OTHER, SELFPAY ==
--- OUTSIDE RECORDS SUMMARY | 2025-09-05 10:00 | XMS_ITS | Encounter Summary ---
Author Organization [facility] Address [address] [place] [address] Care Team Providers Care Decorating Supervisor Name Role Phone Ashwin Arzola MD Primary Care Provider [phone] Encounter Details Date Type Department Care Team (Late st Contact Info) Description 09/05/2025 10:00 AM EST Office Visit Endocrinology - [place] [address] [place] [phone] Ryan Snow MD [address] [place] [address] Type 2 diabetes mellitus with hypoglycemia without coma, with long-term current use of insulin ([facility] V24, [facility] V28) (Primary Dx) Social History Tobacco Use Types [...] Sign Reading Time Taken Comments Blood Pressure 114/55 09/05/2025 9:57 AM EST Pulse 76 09/05/2025 9:57 AM EST Temperature - - Respiratory Rate - - Oxygen Saturation - - Inhaled Oxygen Concentration - - Weight 85.2 kg (187 lb 12.8 oz) 09/05/2025 9:57 AM EST Height - - Body Mass Index 34.35 08/11/2025 10:36 AM EDT documented in this encounter Ordered Prescriptions Prescription Sig Dispense Quantity Refills Last Filled Start Date End Date insulin glargine (Lantus Solostar U-100 Insulin) 100 unit/mL (3 mL) injection pen Inject 5 Units under the skin 1 (one) time each day. 15 mL 09/05/2025 documented in this encounter Progress Notes * Ryan Snow MD - 09/05/2025 10:00 AM EST Decrease the dose of Lantus to 5U Continue metformin 500mg daily Continue Mounjaro 2.5mg/week. * Ryan Snow MD - 09/05/2025 10:00 AM EST CHIEF COMPLAINT: No chief complaint on file. IDENTIFIER: Melyssa Keating is a 70 y.o. old female. HPI: 70-year-old female with past medical history of type 2 diabetes mellitus complicated by neuropathy,hypertension, hyperlipidemia, asthma, COPD presents to the clinic today for follow-up for type 2 diabetes mellitus. Patient is accompanied by her INSTALL AND REPAIR TECHNICIAN. Medications are accompanied by patient's nurse, Neeta. Douglas Wang on the phone. Patient was last seen in the clinic in July 2025 by me. Diagnosed over 20 years ago Current DM medications: Lantus 10 units daily, metformin 500 mg daily, Mounjaro 2.5 mg/week HbA1c: Lab Results Component Value Date HGBA1C 9.1 (H) 06/30/2025 Poc blood glucose today: Lab Results Component Value Date GLUCOSE 239 07/28/2025 Blood glucose review: CGM active dates: 08/23 - 09/05 Time CGM active: 82% Average glucose: 118 GMI: 6.1 Glucose variability: 32.1 Target range: 88 low: 4 very low: 1 high: 6 very high: 1 Blood glucose trends: Patient's blood sugars are in range throughout the day. She is having hypoglycemia overnight on Sundays. Hypoglycemia: yes Diet: Land Management Supervisor reports that patientis eating a lot of junk food. Eats at [employer] a lot. Last saw eye doctor: July 2025, no retinopathy Peripheral neuropathy: no Nephropathy: yes, ASCVD: on statin Gastroparesis: no Ulcers/amputations: no ROS: GENERAL: Negative for malaise, significant weight loss and fever HEENT: No changes in hearing or vision. No nosebleeds or other nasal problems RESPIRATORY: No cough, wheezing or shortness of breath CARDIOVASCULAR: Negative for chest pain, leg swelling and palpitations GI: Negative for abdominal discomfort, changes in bowel habits, blood in stool or black stools : Negative for dysuria, frequency, and incontinence SKIN: No lesions, rash, or itching ENDOCRINE: See HPI NEURO: No persistent headache, fainting, seizures, strokes, TIAs, weakness, numbness or tingling PAST MEDICAL HISTORY: Patient Active Problem List Diagnosis Date Noted Abnormal CT of the abdomen 08/19/2024 Bipolar disorder ([facility] V24, [facility] V28) 08/19/2024 COVID-19 08/19/2024 CTS (carpal tunnel syndrome) 08/19/2024 Costochondritis 08/06/2022 Restrictive lung disease 08/02/2022 Mild aortic stenosis 04/04/2022 Anemia 06/26/2021 Multiple falls 06/26/2021 Type 2 diabetes mellitus with cataract ([facility] V24, [facility] V28) 05/04/2020 Obesity (BMI 30.0-34.9) 02/10/2018 Stage 1 mild COPD by GOLD classification ([facility] V24, [facility] V28) 02/10/2018 Migraine 01/16/2017 Palpitations 07/08/2016 CHF (congestive heart failure) ([facility] V24, [facility] V28) 04/22/2016 Asthma 04/05/2016 Diabetes mellitus with neurological manifestation ([facility] V24, [facility] V28) 12/19/2014 Pulmonary nodules/lesions, multiple 10/17/2014 Aneurysm of middle cerebral artery 07/07/2014 Urinary incontinence 11/18/2013 Diabetic neuropathy ([facility] V24, [facility] V28) 02/03/2013 JOSÉ (obstructive sleep apnea) 01/31/2012 DJD (degenerative joint disease), lumbar 12/20/2011 High cholesterol 12/20/2011 Primary hypertension 12/20/2011 SOCIAL HISTORY: Social History Tobacco Use Smoking status: Former Current packs/day: 0.00 Average packs/day: 3.0 packs/day for 15.0 years (45.0 ttl pk-yrs) Types: Cigarettes Start date: 10/13/1972 Quit date: 10/13/1987 Years since quittin.9 Smokeless tobacco: Former Substance Use Topics Alcohol [...] Specified) No partnership data on file Family History[1] ACTIVE MEDICATIONS: Medications Taking[2] ALLERGIES: Penicillins PHYSICAL EXAM: Blood pressure 114/55, pulse 76, weight 85.2 kg (187 lb 12.8 oz). Body mass index is 34.35 kg/m??. GENERAL: Alert and oriented, in no acute distress. Well-nourished and well-hydrated. HEAD/NECK: Normocephalic and atraumatic. EYES: Pupils equal, round, and reactive to light (PERRLA). Extraocular movements intact. Conjunctivae clear. LUNGS: Lungs clear to auscultation bilaterally. No wheezes, rales, or rhonchi. CARDIOVASCULAR: Regular rate and rhythm. Normal S1 and S2 sounds. No murmurs or gallops. ABDOMEN: Soft, non-tender, and non-distended. Bowel sounds are active and normal. EXTREMITIES: No edema or deformities. Full range of motion in all joints. FOOT: Sensory exam of the foot is normal , tested with the monofilament. 2+ dorsalis pedis pulses, no lesions or ulcers. NEUROLOGICAL: Alert and oriented. Grossly nonfocal SKIN: Skin is warm, dry, and intact. LABS: Lab Results Component Value Date HGBA1C 9.1 (H) 06/30/2025 CHOL 156 06/30/2025 LDLCALC 56 06/30/2025 HDL 80 06/30/2025 TRIG 99 06/30/2025 CREATUR 221.0 07/04/2025 MICROALBUR 51.5 (H) 07/04/2025 MICROALBCREA 23 07/04/2025 Lab Results Component Value Date GLUCOSE 239 07/28/2025 IMPRESSION: 1. Type 2 diabetes mellitus with hypoglycemia without coma, with long-term current use of insulin ([facility] V24, [facility] V28) 70-year-old female with past medical history of type 2 diabetes mellitus complicated by neuropathy,hypertension, hyperlipidemia, asthma, COPD presents to the clinic today for follow-up for type 2 diabetes mellitus. Patient is currently on Lantus 10 units, metformin 500 mg daily, and Mounjaro 2.5 mg/week. Her blood sugars are largely within range. She occasionally has hypoglycemia to the 60s overnight. Will decrease the dose of her Lantus to 5 units daily. Continue metformin 500 mg daily and Mounjaro2.5 mg/week. During her next visit, if blood sugars appear well-controlled -I will plan to discontinue insulin and increase the Mounjaro. Also ordered an A1c to be done prior to her next visit. Follow-up in 3 months Orders Placed This Encounter Procedures Hemoglobin A1c Standing Status: Future Expected Date: 10/05/2025 Expiration Date: 09/05/2026 Release to patient: Immediate [1] ADDITIONAL ORDERS: None Ryan Snow MD on 09/05/2025 at 10:24 AM EST Endocrinology, Diabetes, and Metabolism [1] Family History Problem Relation Name Age of [...] cancer Neg Hx Uterine cancer Neg Hx [2] Outpatient Medications Marked as Taking for the 09/05/25 encounter (Office Visit) with Ryan Snow MD Medication Sig Dispense Refill acetaminophen (TYLENOL 8 HOUR) 650 mg 8 hr tablet Take 1 tablet (650 mg total) by mouth 2 (two) times a day if needed for mild pain. Take 1 Tablet by mouth 2 times daily for 10 days 30 tablet 0 albuterol 2.5 mg /3 mL (0.083 %) nebulizer solution Take 3 mL (2.5 mg total) by nebulization 4 (four) times a day if needed for wheezing or shortness of breath. 360 mL 1 albuterol HFA (Ventolin HFA) 90 mcg/actuation inhaler Inhale 2 puffs by mouth every 6 (six) hours if needed for wheezing. 18 g 2 alcohol swabs (Alcohol Pads) pads, medicated Used to check blood sugar 4 times a day 200 each 5 amitriptyline (ELAVIL) 150 mg tablet Take 1 tablet (150 mg total) by mouth at bedtime. 30 tablet 0 atorvastatin (LIPITOR) 80 mg tablet TAKE 1 TABLET BY MOUTH DAILY AT BEDTIME 90 tablet 1 blood-glucose meter kit Test tid blood-glucose meter,continuous (FreeStyle Cade 3 [place]) misc To check sugars 1 each 0 blood-glucose sensor (FreeStyle Cade 3 Plus Sensor) device USE DIRECTED AND CHANGE SENSORS EVERY 15 DAYS 6 each 1 degrswwyyl-osamwnwsqpkoe-wjrnwkye (FIORICET, ESGIC) 50-325-40 mg per tablet Take 1 tablet by mouth 1 (one) time each day. ciclopirox (LOPROX) 0.77 % gel Apply 1 Application topically 1 (one) time each day. clonazePAM (KlonoPIN) 0.5 mg tablet Take 0.5 tablets (0.25 mg total) by mouth 1 (one) time each day. Max Daily Amount: 0.25 mg 15 each 0 clonazePAM (KlonoPIN) 0.5 mg tablet One tab qhs and 1/2 tab in the am 45 tablet 0 clonazePAM (KlonoPIN) 1 mg tablet Take 1 tablet (1 mg total) by mouth at bedtime. diclofenac (VOLTAREN) 1 % topical gel Apply 2 g topically 4 (four) times a day. 30 g 1 docusate sodium (COLACE) 100 mg capsule TAKE 1 CAPSULE BY MOUTH TWICE DAILY 60 capsule 4 DULoxetine (CYMBALTA) [address] capsule TAKE 1 CAPSULE BY MOUTH ONCE DAILY WITH 60MG FOR TOTAL DAILYDOSE OF 80MG (Patient taking differently: Take 2 capsules (40 mg total) by mouth 1 (one) time each day.) qgpecxaeoph-yezcgjtyumau-msupdvqkpy (Trelegy Ellipta) 100-62.5-25 mcg inhaler Inhale 1 puff (100 mcg total) by mouth 1 (one) time each day. 1 each 2 gabapentin (NEURONTIN) 300 mg capsule Take 1 capsule (300 mg total) by mouth 2 (two) times a day. glucose blood test strip USE TO CHECK BLOOD SUGARS FOUR TIMES DAILY 200 each 3 hydrocortisone 2.5 % cream Apply topically 2 (two) times a day if needed for irritation or rash. 30g 2 insulin glargine (Lantus Solostar U-100 Insulin) 100 unit/mL (3 mL) injection pen Inject 7 Units under the skin 1 (one) time each day. 15 mL 0 ipratropium-albuteroL (DUONEB) 0.5-2.5 mg/3 mL nebulizer solution Take 3 mL by nebulization every 6(six) hours if needed for wheezing or shortness of breath (or cough or chest tightness.). 150 mL 2 lancets ([employer] UltraSoft 2 Lancet) 30 gauge misc Monitor blood sugars up to 4X daily for type 2 diabetes mellitus E11.9 100 each 3 loratadine (CLARITIN) 10 mg tablet Take 1 tablet (10 mg total) by mouth 1 (one) time each day. 30 each 2 magnesium oxide (MAG-OX) 400 mg (241.3 elemental magnesium) tablet Take 1 tablet (400 mg total) by mouth 1 (one) time each day. 90 tablet 1 metFORMIN XR (GLUCOPHAGE-XR) 500 mg 24 hr tablet Take 1 tablet (500 mg total) by mouth 1 (one) timeeach day. 30 tablet 1 metoclopramide (REGLAN) 10 mg tablet TAKE 1 TABLET BY MOUTH 4 (FOUR) TIMES DAILY 120 tablet 4 metoprolol succinate (TOPROL-XL) 25 mg 24 hr tablet TAKE 1 TABLET BY MOUTH ONCE DAILY 90 tablet 1 miconazole nitrate 2 % aerosol,spray Apply 1 applicator topically. montelukast (SINGULAIR) 10 mg tablet TAKE 1 TABLET BY MOUTH ONCE DAILY AT BEDTIME 30 tablet 2 mupirocin (BACTROBAN) 2 % cream Apply topically 3 (three) times a day. 30 g 0 naproxen (NAPROSYN) 500 mg tablet Take 1 Tablet by mouth 2 times daily (with meals). nutritional drink (Ensure) liquid Take 237 mL by mouth 2 (two) times a day. [address]9633 mL 11 nystatin (MYCOSTATIN) 100,000 unit/gram powder pantoprazole (PROTONIX) 40 mg EC tablet Take 1 tablet (40 mg total) by mouth 1 (one) time each day. pen needle, diabetic (BD Ultra-Fine Short Pen Needle) 31 gauge x 5/16 needle Use as directed threetimes daily polyethylene glycol (MIRALAX) 17 gram packet Take 1 Packet by mouth daily predniSONE (DELTASONE) 20 mg tablet 3 tabs po x 5days then 2 tabs po x 5 days then one tab po x 5 day 30 each 5 QUEtiapine (SEROquel) 100 mg tablet Take 1 tablet (100 mg total) by mouth 2 (two) times a day. senna 8.6 mg tablet TAKE 1 TABLET BY MOUTH ONCE DAILY 30 tablet 5 simethicone (Phazyme) 250 mg capsule Take 1 Tablet by mouth 4 times daily as needed for Other. tirzepatide (Mounjaro) 2.5 mg/0.5 mL injection Inject 0.5 mL (2.5 mg total) under the skin every 7 (seven) days. 2 mL 1 topiramate (TOPAMAX) 100 mg tablet Take 2 tablets (200 mg total) by mouth 2 (two) times a day. traMADoL (ULTRAM) 50 mg tablet Take 1 tablet (50 mg total) by mouth every 8 (eight) hours if needed. traZODone (DESYREL) 50 mg tablet TAKE 1 TABLET BY MOUTH ONCE DAILY AT BEDTIME NEEDED FOR SLEEP 90 tablet 1 UNABLE TO FIND CPAP Historical (HISTORICAL CPAP), by Nasal route at bedtime. BHI&R-pressure 6-16 zolpidem (AMBIEN) 10 mg tablet Take 1 tablet (10 mg total) by mouth at bedtime. [DISCONTINUED] diclofenac (VOLTAREN) 1 % topical gel Apply 4 g topically 4 times daily. [DISCONTINUED] diclofenac (VOLTAREN) 1 % topical gel Apply 2 g topically 4 (four) times a day. 30 g1 [DISCONTINUED] diclofenac (VOLTAREN) 1 % topical gel APPLY 2 GRAMOS TOPICALLY TO THE AFFECTED AREA two (2) times a day 100 g 5 [DISCONTINUED] DULoxetine (CYMBALTA) [address] capsule Take 1 capsule (60 mg total) by mouth 1 (one)time each day. 30 each 0 documented in this encounter Plan of Treatment Upcoming Encounters Date Type Department Care Team (Late st Contact Info) Description 09/21/2025 11:00 AM EST Office Visit [facility] [address] [facility] [address] [place] [phone] Hermelinda Marmolejo NP [address] [place] [address] [place] [address] 09/29/2025 11:00 AM EST Appointment Radiology Department - [address] [phone] 10/19/2025 10:00 AM EST Consult Adult Medicine South - [address] [phone] Ashwin Arzola MD [address] [place] [address] 10/26/2025 10:15 AM EST Office Visit Orthopedic Surgery - [place] [address] [facility] [address] [place] [phone] Linus Luna, DPM [address] [phone] 12/07/2025 10:40 AM EST Office Visit Endocrinology - [address] [phone] Ryan Snow MD [address] [place] [address] 12/13/2025 10:10 AM EST Office Visit Pulmonology - [place] [address] [facility] [address] [place] [phone] Cami Dupont, [place] [address] [place] [phone] 01/23/2026 9:45 AM EDT Office Visit Adult Medicine [address] [phone] Ashwin Arzola MD [address] [place] [address] Scheduled Orders Name Type Priority Associated Diagnoses Orde r Schedule Hemoglobin A1c Lab Routine Type 2 diabetes mellitus with hypoglycemia without coma, with long-term current use of insulin ([facility] V24, [facility] V28) Expected: 10/05/2025, Expires: 09/05/2026 documented as of this encounter Visit Diagnoses Diagnosis Type 2 diabetes mellitus with hypoglycemia without coma, with long-term current use of insulin ([facility] V24, [facility] V28)- Primary documented in this encounter Discontinued Medications Medication Sig Discontinue Reason Start Date End Da te diclofenac (VOLTAREN) 1 % topical gel Apply 4 g topically 4 times daily. Therapy completed 02/03/2023 09/05/2025 diclofenac (VOLTAREN) 1 % topical gel Apply 2 g topically 4 (four) times a day. Therapy completed 01/27/2025 09/05/2025 diclofenac (VOLTAREN) 1 % topical gel APPLY 2 GRAMOS TOPICALLY TO THE AFFECTED AREA two (2) times a day Therapy completed 05/27/2025 09/05/2025 DULoxetine (CYMBALTA) [address] capsule Take 1 capsule (60 mg total) by mouth 1 (one) time each day. Therapy completed 08/26/2024 09/05/2025 gabapentin (NEURONTIN) 100 mg capsule Take 1 capsule (100 mg total) by mouth 3 (three) times a day. Therapy completed 08/26/2024 09/05/2025 insulin glargine (Lantus Solostar U-100 Insulin) 100 unit/mL (3 mL) injection pen Inject 7 Units under the skin 1 (one) time each day. 07/28/2025 09/05/2025 documented as of this encounter Care Teams Decorating Supervisor Relationship Specialty Start Date End Date Ashwin Arzola MD [address] [place] [address] PCP - General Internal Medicine 08/01/20 documented as of this encounter
[2025-09-06 10:39] VITALS: BMI 33.8
--- NOTE | 2025-09-06 10:39 | MHC.OFFVIS ---
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 Patient complains of numbness and tingling of all 5 digits. She reports it wakes her up through the night. Patient reports symptoms are daily and constant, making it difficult to exhauster, squeeze, and open and close lids. She also complains of left middle finger locking. Per [facility] referral, patient received a Left Middle Trigger Finger Injection on 02/18/25. She has tried wrist braces in the past, many years ago. Denies any prior injuries or surgeries to the left hand.?History of Type 2 Diabetes Mellitus. Last A1C done recently. She was told it was normal but is unsure on the actual value. IMPRESSION 07/13/25: 1. This is an abnormal study. 2. There is electrodiagnostic evidence for left moderate-severe median neuropathy at the wrist, consistent with carpal tunnel syndrome. 3. There is no electrodiagnostic evidence for ulnar neuropathy, brachial plexopathy, or cervical radiculopathy. 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 Patient complains of numbness and tingling of all 5 digits. She reports it wakes her up through the night. Patient reports symptoms are daily and constant, making it difficult to exhauster, squeeze, and open and close lids. She also complains of left middle finger locking. Per [facility] referral, patient received a Left Middle Trigger Finger Injection on 02/18/25. She has tried wrist braces in the past, many years ago. Denies any prior injuries or surgeries to the left hand.?History of Type 2 Diabetes Mellitus. Last A1C done recently. She was told it was normal but is unsure on the actual value. IMPRESSION 07/13/25: 1. This is an abnormal study. 2. There is electrodiagnostic evidence for left moderate-severe median neuropathy at the wrist, consistent with carpal tunnel syndrome. 3. There is no electrodiagnostic evidence for ulnar neuropathy, brachial plexopathy, or cervical radiculopathy. [facility] Medical History (Updated 09/06/25 @ 16:23 by KATHRYN Martins) Rheumatoid arthritis Cervical spondylitis Depression Headache Dyslipidemia Hypertension Cerebral aneurysm, nonruptured Seizure disorder JOSÉ (obstructive sleep apnea) Delusions Major neurocognitive disorder Chest pain Dyspnea on exertion COVID-19 GERD (gastroesophageal reflux disease) DJD (degenerative joint disease) COPD (chronic obstructive pulmonary disease) Bipolar disorder CTS (carpal tunnel syndrome) Hx of rheumatoid arthritis Diabetic neuropathy Urinary incontinence Aneurysm of middle cerebral artery Pulmonary nodules CHF (congestive heart failure) Palpitations Migraine History of COVID-19 Mild aortic stenosis Asthma Insulin dependent type 2 diabetes mellitus Mixed hyperlipidemia Mood disorder Essential hypertension Surgical History (Updated 07/20/25 @ 14:13 by Chelita Azar RN) H/O colonoscopy History of esophagogastroduodenoscopy (EGD) Hx of cataract surgery H/O: hysterectomy Hx of cholecystectomy History of carpal tunnel release Family History Mother Myocardial infarction Father Myocardial infarction Sister Breast cancer Brother Spleen cancer Social History (Updated 09/06/25 @ 10:49 by KLEL Layne) Household Members: None Housing: Apartment Do you presently have visiting 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) Alcohol intake: never Comment: report given by Cleo menendez Patient Tobacco Use Status: Former Tobacco user Tobacco use type: Cigarette Cigarette Packs Per Day: 0.2 Cigarettes Per Day: 4.0 Years Smoked: 5741-3391 e-Cigarette/Vaping Use: Never Used Second Hand Smoke Exposure: No Advance Directives Date on File: 11/20/23 service: No Current occupational status: retired Current occupation: rt handed Sexual orientation: Straight/Heterosexual Review of Systems Const All systems reviewed & are unremarkable except as noted in HPI and below Physical Exam Vital Signs: BMI result Body Mass Index 33.8 Extrem Other: Neuro: Decreased sensation in the median nerve distribution of the left hand. Normal sensation to all other digits in the left hand today. Normal sensation in the tips of all digits of the right hand today. No thenar or intrinsic wasting. Good APB muscle firing and good finger cross. Vascular: Capillary refill brisk. ROM: Patient can make a fist and extend all their digits. Skin: No lacerations or abrasions noted. General: No ecchymosis. No erythema or evidence of infection. Assessment & Plan Assessment & Plan (1) Left carpal tunnel syndrome: Code(s): G56.02 - Carpal tunnel syndrome, left upper limb Category: Medical Plan 1. Left carpal tunnel syndrome Symptoms constant, daily, worse at night I educated the patient about the condition. I discussed both operative and nonoperative treatment options. The patient would like to proceed with surgery. The risks and benefits of operative treatment were discussed with the patient and the patient wishes to proceed with surgery. These risks include, but are not limited to, risk of damage to blood vessels, nerves, tendons, infection, recurrence, incomplete relief of preoperative symptoms, persistent pain, possible need for further surgery, and the risks associated with regional blocks and/or anesthesia. Plan is to take the patient to the operating room at some point in the next few weeks for the following procedures: 1. Left carpal tunnel release under local All of the preoperative paperwork including the consent was discussed today. All of the patient's questions were answered in the clinic today. The patient understands that they will be in contact with our line tender flakeboard to discuss scheduling their procedure. Patient will require Primary Care Provider clearance prior to surgery, as she has a very significant past medical history and I feel that even for a small surgery under local anesthesia she should receive primary care clearance Patient denies diabetes, blood thinners, asthma, heart issues, lung issues, kidney issues, or current smoking. Coding Level of Care Code New Pt Level 4 (47996) Diagnoses Left carpal tunnel syndrome G56.02
--- OUTSIDE RECORDS SUMMARY | 2025-09-06 12:57 | XMS_ITS | Encounter Summary ---
Author Organization [facility] Address [address] [place] [address] Care Team Providers Care Dental Technician Instructor Name Role Phone Ashwin Arzola MD Primary Care Provider [phone] Encounter Details Date Type Department Care Team (Late Contact Info) Description 01/19/2025 Billing Patient Not Present Adult Medicine [address] [phone] Ashwin Arzola MD [address] [place] [address] Social History Tobacco Use Types Packs/Day Years [...] Department Care Team (Late Contact Info) Description 09/21/2025 11:00 AM EST Office Visit [facility] - [facility] [address] [facility] [address] [place] [phone] Hermelinda Marmolejo NP [address] [place] [address] [place] [address] 09/29/2025 11:00 AM EST Appointment Radiology Department - [address] [phone] 10/19/2025 10:00 AM EST Consult Adult Medicine [address] [phone] Ashwin Arzola MD [address] [place] [address] 10/26/2025 10:15 AM EST Office Visit Orthopedic Surgery - [place] 250 175 [facility] 250 [place] [phone] Linus Luna, DPM [address] [phone] 12/07/2025 10:40 AM EST Office Visit Endocrinology [address] [phone] Ryan Snow MD [address] [place] [address] 12/13/2025 10:10 AM EST Office Visit Pulmonology - [place] 175 [facility] 200 [place] [phone] Cami Dupont, [address] [phone] 01/23/2026 9:45 AM EDT Office Visit Adult Medicine [address] [phone] Ashwin Arzola MD [address] [place] [address] documented as of this encounter Visit Diagnoses Not on filedocumented in this encounter Care Teams Dental Technician Instructor Relationship Specialty Start Date End Date Ashwin Arzola MD [address] [place] [address] PCP - General Internal Medicine 08/01/20 documented as of this encounter
--- OUTSIDE RECORDS SUMMARY | 2025-09-06 12:57 | XMS_ITS | Encounter Summary ---
Author Organization [facility] Address [address] [place] [address] Care Team Providers Care Slurry Plant Operator Name Role Phone Ashwin Arzola MD Primary Care Provider [phone] Reason for Visit * Reason Onset Date Comments Testing 08/11/2025 Encounter Details Date Type Department Care Team (Late st Contact Info) Description 08/11/2025 Telephone Orthopedic Surgery - [place] 250 175 [facility] 250 [place] [address] Linus Luna, DPNaila 175 [facility] 250 [place] [address] Social History Tobacco Use Types Packs/Day Years [...] as of this encounter Progress Notes * Cynthia Grewal - 08/26/2025 7:26 AM EST , please see message below. Unsure if you've yet received EMG results. * Cynthia Grewal - 08/11/2025 11:30 AM EDT Patient walked into office with caregiver Renetta looking to see if received EMG testing done about 3 weeks ago with [facility]. Looking for an update with results and if appt is needed to discuss. Patient is scheduled to see on 10/26/2025 for her next f/u. documented in this encounter Plan of Treatment Upcoming Encounters Date Type Department Care Team (Late st Contact Info) Description 09/21/2025 11:00 AM EST Office Visit [facility] - [facility] 102 300 [facility] 102 [place] [phone] Hermelinda Marmolejo NP [address] [place] [address] [address] [place] [address] 09/29/2025 11:00 AM EST Appointment Radiology Department - [address] [phone] 10/19/2025 10:00 AM EST Consult Adult Medicine [facility] - [address] [phone] Ashwin Arzola MD [address] [place] [address] 10/26/2025 10:15 AM EST Office Visit Orthopedic Surgery - [place] [address] [phone] Linus Luna, DPM [address] [phone] 12/07/2025 10:40 AM EST Office Visit Endocrinology - [address] [phone] Ryan Snow MD [address] [place] [address] 12/13/2025 10:10 AM EST Office Visit Pulmonology - [place] 175 [facility] 200 [place] [phone] Cami Dupont NP [address] [place] [address] 01/23/2026 9:45 AM EDT Office Visit Adult Medicine [address] [phone] Ashwin Arzola MD [address] [place] [address] documented as of this encounter Visit Diagnoses Not on filedocumented in this encounter Care Teams Slurry Plant Operator Relationship Specialty Start Date End Date Ashwin Arzola MD [address] [place] [address] PCP - General Internal Medicine 08/01/20 documented as of this encounter
--- OUTSIDE RECORDS SUMMARY | 2025-09-06 12:57 | XMS_ITS ---
Author Name Marty GEORGESBeatriz Address [address] [place] [address] Phone [phone] [facility] Care Team Providers Care Pot Washer Name Role Phone Beatriz Ferguson Unavailable [phone] [facility] Unavailable [phone] Shaina Olivares Unavailable Unavailable Ashwin Arzola Unavailable [phone] [facility] Unavailab [phone] Unavailable Unavailable Unavailable Reason for Referral Not [...] 2021-12-26 2023-01-02 Vitamin D (Ergocalciferol) 1.25 mg (64555 UT) Cap TAKE 1 CAPSULE BY MOUTH 1 TIME A WEEK 2021-11-16 2023-01-02 OneTouch Delica Plus [id number] Miscellaneous USE DIRECTED TWICE DAILY 2021-11-30 No [...] DAY AT BEDTIME 2022-05-01 No Data Available Rogqpmeovh-FGDD-Gkgzyaft 50/325/40 mg Tab TAKE 1 TABLET BY MOUTH EVERY 6 HOURS NEEDED 2022-05-01 No Data Available B-D PEN NDL SHRT 92UU5RI(02/25) CARMEN USE DIRECTED THREE TIMES DAILY 2021-08-21 [...] AT BEDTIME 2023-07-05 No Data Available Nystatin 831636 UNIT/GM Powder APPLY TOPICALLY FOUR TIMES DAILY [...] 50 mg Tab TAKE 1 TABLET BY [facility] EVERY 8 HOURS NEEDED 2023-07-30 No [...] WITH MEALS 2023-11-07 No Data Available UNIFINE [id number] PEN NEEDLES USE DIREC CODY THREE TIMES DAILY 2023-11-07 2023-11-26 Azithromycin 250 mg Tab TAKE 2 TABLETS B Y MOUTH FOR 1 DAY THEN TAKE 1 TABLET BY MOUTH DAILY FOR 4 DAYS 2023-11-11 No Data Available Cefuroxime Axetil 250 mg Tab TAKE 1 TABL ET BY MOUTH TWICE DAILY 2023-11-19 No Data Available Nystatin 092329 UNIT/GM Powder apply to affected area daily, [...] with voiding x months will f/u with STAFFING PROGRAM MANAGER 09/16/2023 Office Visit Obstetrics & Gynecology Clare Simon MD Hemiplegia and hemiparesis following cerebral infarction affecting left non-dominant side Active 2022-08 N/A CVA 2008Does not have ANESTHESIOLOGISTS' ASSISTANT 11/24/23Ambulates with a cane/walkerat risk for fallsFall prevention TIPS: Wear sensible shoes. Remove home hazards (Get rid of all rugs/mats in your home). Light up your living space (keep a flash light next to your bed for night time). Use assistive devices.ambulates with walker Chronic obstructive pulmonar y disease, unspecified Active 2022-08 N/A On Anoro ElliptaSpirivaProAiron 3L 02 PRNFollows Cad SpecialistCONTINGEN CY PLANMember to call for the following [...] Quetiapinewith h/o delusions Follows Psychiatristfollowed by psychiatry [phone] (Neeta) ( member reports she does home [...] Pain Documented on a Pain Scale (1125F) [facility] [place] [place] Pain Assessment - Pain Documented on a Pain Scale (1125F) [facility] [place]20[place] Pain Assessment - Pain Documented on a Pain Scale (1125F) [facility] [place] 09/10[place]2022 Pain Assessment - Pain Documented on a Pain Scale (1125F) [facility] [place] 09/10[place]2022 Pain Assessment - Pain Documented on a Pain Scale (1125F) [facility] [place] 09/10[place]2022 Pain Assessment - Pain Documented on a Pain Scale (1125F) [facility] [place] 09/10/2022 Pain Assessment - Pain Documented on a Pain Scale (1125F) [facility] [place] 09/10[place]2022 Pain Assessment - Pain Documented on a Pain Scale (1125F) [facility] [place] 09/10/2022 Type 2 diabetes mellitus [...] 95 for video, modifier 93 for phone [facility] [place] 10/03[place]2022 Hypertensive heart disease w [...] 1111F, BP, A1c or other CPTII codes [facility] [place] 11/28/2022 Encounter for other specifie d aftercare RN, CN or CP time with patient by phone; use with 1111F, BP, A1c or other CPTII codes [facility] [place] 11/28/2022 No Data Available [facility] [place] 12/03/2022 Chronic obstructive pulmonar y disease with (acute) exacerbation No Data Available [facility] 12/03/2022 Estab. patient 30-39min; chronic exacerbation, 2 stable chronic or 1 acute illness add add modifier 95 for video, (do not use for phone, instead use 61815-72) [facility] [place] 01/09/2023 Type 2 diabetes mellitus wit h [...] (do not use for phone, instead use 86748-88) [facility] [place] 01/09/2023 Estab. patient 30-39min; chronic exacerbation, 2 stable chronic or 1 acute illness add add modifier 95 for video, (do not use for phone, instead use 66935-39) [facility] [place] 01/09/2023 Estab. patient 30-39min; chronic exacerbation, 2 stable chronic or 1 acute illness add add modifier 95 for video, (do not use for phone, instead use 72052-08) [facility] [place] 01/09/2023 Estab. patient 30-39min; chronic exacerbation, 2 stable chronic or 1 acute illness add add modifier 95 for video, (do not use for phone, instead use 94603-54) [facility] [place] 01/09/2023 Estab. patient 30-39min; chronic exacerbation, 2 stable chronic or 1 acute illness add add modifier 95 for video, (do not use for phone, instead use 30075-68) [facility] [place] 01/09/2023 Estab. patient 30-39min; chronic exacerbation, 2 stable chronic or 1 acute illness add add modifier 95 for video, (do not use for phone, instead use 87230-74) [facility] [place] 01/09/2023 Estab. patient 30-39min; chronic exacerbation, 2 stable chronic or 1 acute illness add add modifier 95 for video, (do not use for phone, instead use 18883-37) [facility] [place] 01/09/2023 Estab. patient 30-39min; chronic exacerbation, 2 stable chronic or 1 acute illness add add modifier 95 for video, (do not use for phone, instead use 64781-34) [facility] [place] 01/09/2023 RN, CN or CP time with patient by phone; use with 1111F, BP, A1c or other CPTII codes [facility] [place] 01/02/2023 Encounter for other specifie d aftercare RN, CN or CP time with patient by phone; use with 1111F, BP, A1c or other CPTII codes [facility] [place] 01/02[place]2023 No Data Available [facility] [place] 03/28/2023 Other chest pain No Data Available [facility] [place] 04/02/2023 Chronic obstructive pulmonar y disease, unspecifiedChronic respiratory failure, unsp w hypoxia or hypercapniaSchizophrenia, unspecified No Data Available [facility] [place] 04/02/2023 No Data Available [facility] [place] 04/02/2023 No Data Available [facility] [place] 04/02/2023 No Data Available [facility] [place] 04/02/2023 No Data Available [facility] [place] 04/02/2023 No Data Available [facility] [place] 09/08/2023 Type 2 diabetes mellitus wit [...] status migrainosusAtherosclerosis of aorta No Data Available [facility] [place] 09/08/2023 No Data Available [facility] [place] 09/08/2023 No Data Available [facility] [place] 09/08/2023 No Data Available [facility] [place] 09/08/2023 No Data Available [facility] [place] 09/08/2023 No Data Available [facility] 11/24/2023 Type 2 diabetes mellitus [...] and other health care No Data Available [facility] [place] 11/24/2023 No Data Available [facility] [place] 11/24/2023 No Data Available [facility] [place] 11/24/2023 No Data Available [facility] [place] 11/24/2023 No Data Available [facility] [place] 11/24/2023 RN, CN or CP time with patient by phone; use with 1111F, BP, A1c or other CPTII codes [facility] [place] 11/20/2023 Encounter for other specifie d aftercare RN, CN or CP time with patient by phone; use with 1111F, BP, A1c or other CPTII codes [facility] [place] 11/20/2023 Vital Signs Date of Collection Vitals [...] tive Time Current Smoking Status Former smoker 2025-08-14 4 Sex Female History of Procedures Procedures [...] (do not use for phone, instead use 16282-56) 71978 2022-09-10 No Data Available No Data Availa ble Estab. patient 20-29min; 1 stable chronic or 2 minor; add add modifier 95 for video, modifier 93 for phone 38624 2022-10-03 No Data Available No Data Availa ble RN, CN or CP time with patient by phone; use with 1111F, BP, A1c or other CPTII codes 43327 2022-11-28 No Data Available No Data Avai lable Medications prescribed in hospital were reviewed and reconciled against what they were taking prior to admission during today's visit. (1111F) 1111F 2022-11-28 No Data Available No Data Availa ble No Data Available 28559 2022-12-03 No Data Available No Data Available Medications prescribed in hospital were reviewed and reconciled against what they were taking prior to admission during today's visit. (1111F) 1111F 2022-12-03 No Data Available No Data Availa ble Estab. patient 30-39min; chronic exacerbation, 2 stable chronic or 1 acute illness add add modifier 95 for video, (do not use for phone, instead use 09085-01) 45233 2023-01-09 No Data Available No Data Availa [...] 1111F, BP, A1c or other CPTII codes 24850 2023-01-02 No Data Available No Data Avai lable Medications prescribed in hospital were reviewed and reconciled against what they were taking prior to admission during today's visit. (1111F) 1111F 2023-01-02 No Data Available No Data Availa ble No Data Available 76257 2023-03-28 No Data Available No Data Available No Data Available 16005 2023-04-02 No Data Available No Data Available [...] No Data Avail able No Data Available [id number] 2023-09-08 No Data Available No Data Available [...] No Data Availa ble No Data Available [id number] 2023-11-24 No Data Available No Data Available [...] 1111F, BP, A1c or other CPTII codes 40380 2023-11-20 No Data Available No Data Patricia [...] Falls in last 6 Months: No 2022-09-10 ANESTHESIOLOGISTS' ASSISTANT only there for 9 hours 2023-11-24 Mental [...] E ducation to avoid future hospitalization: Call [facility] if symptoms of illness develop. COPD [...] or disease education needs that may arise.On YmpdnfKuaeythwgtO2j- 7.5Encouraged regular exerciseLimit unhealthy foods and eat healthy mealsAvoid sugar-sweetened beverages. White bread, rice, pasta.Follows EndocrinologistDiscussed recommended a1c level- <7%CVA s a PCAAmbulates with a cane/walkerOn Anoro ElliptaSpirivaProAiron 3L 02 PRNFollows PulmonologistOn 3l 02Follows PulmonologistOn QuetiapineAripiprazoleDuloxetineFollows PsychiatristOn AmbienUses Ztlido patchOn Vitamin DOn FurosemideMetoprololWill monitor edema and weight, follows cardiologyOn AripiprazoleStableFollows PsychiatrKettering Health DaytonLrbxqrMhtzzqbmxyD7x- 7.1Follows OphthalmologistOn OmeprazoleAvoid spicy, fatty or fried food, caffeine, chocolateAvoid lying down after mealsAvoid eating late at nightWears Pull-ups 2022-10-03 11:44:44 Televideo 20-29min; 1 stable chronic or 2 minor; add modifier 95Continue to see PCP. Follow-up with [facility] as needed for any acute or disease education needs that may arise 05/05.On BpmbdzWditvnhmdhC2b- 7.1Encouraged regular exerciseLimit unhealthy foods and eat healthy mealsAvoid sugar-sweetened beverages. White bread, rice, pasta.Follows EndocrinologistDiscussed recommended a1c level- <7%CVA s a PCAAmbulates with a cane/walkerOn Anoro ElliptaSpirivaProAiron 3L 02 PRNFollows PulmonologistOn 3l 02Follows PulmonologistOn QuetiapineAripiprazoleDuloxetineFollows PsychiatristOn AmbienUses Ztlido patchOn Vitamin DOn FurosemideMetoprololWill monitor edema and weight, follows cardiologyOn AripiprazoleStableFollows PsychiatristOn MgsxnkHxqgvtrnniU4v- 7.5Follows OphthalmologistOn OmeprazoleAvoid spicy, fatty or fried [...] or disease education needs that may arise.On XuyqmwRlhehvulsyJ4g- 7.1Encouraged regular exerciseLimit unhealthy foods and eat [...] Psychiatrist01/09/23: Continue current treatment plan as directed.On MfrqecFwcbneiupjS2e- 7.5Follows OphthalmologistOn OmeprazoleAvoid spicy, fatty or fried [...] modifier 95)Continue to see PCP. Follow-up with [facility] as needed for any acute or [...] obtained (3008F)Continue to see PCP. [facility] [...] modifier 95)Continue to see PCP. Follow-up with [facility] as needed for any acute or disease education needs that may arise 05/05.On CtzxvsWifubhgtbvB0x- 7.1Encouraged regular exerciseLimit unhealthy foods and eat [...] and fall precautions. Follow up as indicated.On FjrvtrLehrbjwzpfB4a- 7.5Follows OphthalmologistOn OmeprazoleAvoid spicy, fatty or fried food, caffeine, chocolateAvoid lying down after mealsAvoid eating late at night01/09/23: Continue current treatment plan as directed.has f/u visit 11/03/2023 Office Visit Gastroenterology Alber Benites PA-SHAKILAears Pull-ups+burning with voiding x months will f/u with STAFFING PROGRAM MANAGER 09/16/2023 Office Visit Obstetrics & Gynecology Clare [...] 8.4 202GFR 80 3CVA 2008Does not have ANESTHESIOLOGISTS' ASSISTANT 11/24/23Ambulates with a cane/walkerat risk for fallsFall prevention TIPS: Wear sensible shoes. Remove home hazards (Get rid of all rugs/mats in your home). Light up your living space (keep a flash light next to your bed for night time). Use assistive devices.ambulates with walkerOn Anoro ElliptaSpirivaProAiron 3L 02 Sole Cad SpecialistCONTINGENCY PLANMember to call for the following symptoms: [...] agitationPlanned intervention: Contact mental health professional: psychiatry [phone] (Neeta)On quetiapinewith h/o delusions Follows Psychiatristfollowed by psychiatry [phone] (Neeta) ( member reports she does home [...] pneumoniae---sensitive to ceftriaxone) all uit symptoms resolved.On VvspiiBlfcbxgmmyU7e- 7.0 11/19/23Follows OphthalmologistOn OmeprazoleAvoid spicy, fatty or fried food, caffeine, chocolateAvoid lying down after mealsAvoid eating late at night01/09/23: Continue current treatment plan as directed.has f/u visit 11/03/2023 Office Visit Gastroenterology Alber Benites PA-Zulma Pull-ups+burning with voiding x months will f/u with STAFFING PROGRAM MANAGER 09/16/2023 Office Visit Obstetrics & Gynecology Clare [...] increased 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 RN brought medications today. member unable to give me RN name or contact info. 2023-11-24 2 hours per day--no ANESTHESIOLOGISTS' ASSISTANT (does not have a ANESTHESIOLOGISTS' ASSISTANT) . email sent to [facility] cc re need for ANESTHESIOLOGISTS' ASSISTANT 2023-11-24 followed by tracie bonilla [phone] (Neeta) ( member reports she does home visits) 2023-11-24 unable to complete medication reconciliation; RN not available and member does not administer medications her self. 2023-11-24 medication list u pdated after review of Hosp records/medication list
--- OUTSIDE RECORDS SUMMARY | 2025-09-06 12:57 | XMS_ITS | Clinical Summary ---
Author Organization [facility] [address] [facility] Address [address] [place] [phone] Phone Care Team Providers Care Blast Furnace Blower Name Role Phone Ashwin Arzola MD Primary Care Provider [phone] Allergies Active Allergy Reactions Criticality Noted Date [...] total) by mouth at bedtime. 022 Active DULoxetine (CYMBALTA) [address] capsule [...] by mouth 1 (one) time each day. 024 Active polyethylene glycol (MIRALAX) 17 gram packet Take 1 Packet by mouth daily 023 Active QUEtiapine (SEROquel) 100 mg tablet Take [...] mg total) by mouth at bedtime. Active blood-glucose meter kit Test tid Active pen needle, diabetic (BD Ultra-Fine Short Pen Needle) 31 gauge x 5/16 needle Use as directed three times daily Active UNABLE TO FIND CPAP Historical (HISTORICAL CPAP), by Nasal route at bedtime. BHI&R-pressure 6-16 Active clonazePAM (KlonoPIN) 0.5 mg tablet Take 0.5 tablets (0.25 mg total) by mouth 1 (one) time each day. Max Daily Amount: 0.25 mg 15 each 024 2025 Active valproic acid (DEPAKENE) 250 mg/5 mL syrup Take 5 mL (250 mg total) by mouth 2 (two) times a day. 300 mL Active hydrocortisone 2.5 % cream Apply topically 2 (two) times a day if needed for irritation or rash. 30 g 2 024 2024 Active blood-glucose meter,continuou s (FreeStyle Cade 3 [place]) miscIndications :Type 2 diabetes mellitus with other specified complication, with long-term current use of insulin ([facility] V24, [facility] V28) To check sugars 1 each Active docusate sodium (COLACE) 100 mg capsule TAKE 1 CAPSULE BY MOUTH TWICE DAILY 60 capsule 4 Active diclofenac (VOLTAREN) 1 % topical gel Apply 2 g topically 4 (four) times a day. 30 g 1 Active clonazePAM (KlonoPIN) 0.5 mg tablet One tab qhs and 1/2 tab in the am 45 tablet Active amitriptyline (ELAVIL) 150 mg tablet Take 1 tablet (150 mg total) by mouth at bedtime. 30 tablet Active loratadine (CLARITIN) 10 mg tabletIndicatio ns:Moderate [...] tightness.). 150 mL 2 025 2025 Active atorvastatin (LIPITOR) 80 mg tablet TAKE 1 TABLET BY MOUTH DAILY AT BEDTIME 90 tablet 1 Active acetaminophen (TYLENOL 8 HOUR) 650 mg [...] unspecified type,Severe persistent asthma, unspecified whether complicated (CMS/HCC V28) Take 3 mL (2.5 mg total) by nebulization 4 (four) times a day if needed for wheezing or shortness of breath. 360 mL 1 025 2025 Active fluticasone-ume clidinium-vilan terol (Trelegy Ellipta) 100-62.5-25 mcg inhalerIndicati ons:Moderate persistent asthma without complication Inhale 1 puff (100 mcg total) by mouth 1 (one) time each day. 1 each 2 025 2025 Active magnesium oxide (MAG-OX) 400 mg (241.3 elemental magnesium) tablet Take 1 tablet (400 mg total) by mouth 1 (one) time each day. 90 tablet 1 025 Active metFORMIN XR (GLUCOPHAGE-XR) 500 mg 24 hr tabletIndicatio ns:Type 2 diabetes mellitus with other specified complication, with long-term current use of insulin ([facility] V24, [facility] V28) Take 1 tablet (500 mg total) by mouth 1 (one) time each day. 30 tablet 1 025 Active mupirocin (BACTROBAN) 2 % cream Apply topically 3 (three) times a day. 30 g 025 Active montelukast (SINGULAIR) 10 mg tabletIndicatio ns:Moderate persistent asthma without complication TAKE 1 TABLET BY MOUTH ONCE DAILY AT BEDTIME 30 tablet 2 025 Active metoclopramide (REGLAN) 10 mg tablet TAKE 1 TABLET BY MOUTH 4 (FOUR) TIMES DAILY 120 tablet 4 025 Active blood-glucose sensor (FreeStyle Cade 3 Plus Sensor) deviceIndicatio ns:Type 2 diabetes mellitus with other specified complication, with long-term current use of insulin ([facility] V24, [facility] V28) USE DIRECTED AND CHANGE SENSORS EVERY 15 DAYS 6 each 1 025 Active tirzepatide (Mounjaro) 2.5 mg/0.5 mL injectionIndica tions:Type 2 diabetes mellitus with diabetic polyneuropathy, with long-term current use of insulin ([facility] V24, [facility] V28) Inject 0.5 mL (2.5 mg total) under the skin every 7 (seven) days. 2 mL 1 025 Active lancets (OneTouch UltraSoft 2 [place]) 30 gauge [facility] Monitor blood sugars up to 4X daily for type 2 diabetes mellitus E11.9 100 each 3 025 Active glucose blood test stripIndication s:Type 2 diabetes mellitus with diabetic cataract, with long-term current use of insulin ([facility] V24, [facility] V28) USE TO CHECK BLOOD SUGARS FOUR TIMES DAILY 200 each 3 025 Active alcohol swabs (Alcohol Pads) pads, medicatedIndica tions:Type 2 diabetes mellitus with diabetic cataract, with long-term current use of insulin ([facility] V24, [facility] V28) Used to check blood sugar 4 times a day 200 each 5 025 Active senna 8.6 mg tablet TAKE 1 TABLET BY MOUTH ONCE DAILY 30 tablet 5 Active traZODone (DESYREL) 50 mg tablet TAKE 1 TABLET BY MOUTH ONCE DAILY AT BEDTIME NEEDED FOR SLEEP 90 tablet 1 Active nutritional drink (Ensure) liquid Take 237 mL by mouth 2 (two) times a day. 68913 mL 11 Active metoprolol succinate (TOPROL-XL) 25 mg 24 hr tablet TAKE 1 TABLET BY MOUTH ONCE DAILY 90 tablet 1 Active insulin glargine (Lantus Solostar U-100 Insulin) 100 unit/mL (3 mL) injection pen Inject 5 Units under the skin 1 (one) time each day. 15 mL Active diclofenac (VOLTAREN) 1 % topical gel Apply 4 g topically 4 times daily. 023 2024 Discontinued(T herapy completed) gabapentin (NEURONTIN) 100 mg capsule Take 1 capsule (100 mg total) by mouth 3 (three) times a day. 90 each 024 2024 Discontinued(T herapy completed) DULoxetine (CYMBALTA) [address] capsule Take 1 capsule (60 mg total) by mouth 1 (one) time each day. 30 each 024 2024 Discontinued(T herapy completed) famotidine (Pepcid) 20 mg tablet Take 1 tablet (20 mg total) by mouth 1 (one) time each day. 30 each 024 2024 diclofenac (VOLTAREN) 1 % topical gel Apply 2 g topically 4 (four) times a day. 30 g 1 025 2024 Discontinued(T herapy completed) traZODone (DESYREL) 50 mg tablet TAKE 1 TABLET BY MOUTH ONCE DAILY AT BEDTIME NEEDED FOR SLEEP 90 tablet 1 025 2024 Discontinued metoprolol succinate (TOPROL-XL) 25 mg 24 hr tablet TAKE 1 TABLET BY MOUTH ONCE DAILY 90 tablet 1 025 2024 Discontinued senna 8.6 mg tablet Take 1 tablet (8.6 mg total) by mouth 1 (one) time each day. 30 tablet 4 025 2024 Discontinued diclofenac (VOLTAREN) 1 % topical gel APPLY 2 GRAMOS TOPICALLY TO THE AFFECTED AREA two (2) times a day 100 g 5 025 2024 Discontinued(T herapy completed) clotrimazole (LOTRIMIN) 1 % cream Apply topically 2 (two) times a day. 30 g 3 025 2024 insulin glargine (Lantus Solostar U-100 Insulin) 100 unit/mL (3 mL) injection pen Inject 7 Units under the skin 1 (one) time each day. 15 mL 025 2024 Discontinued Active Problems Problem Noted Date Diagnosed Date Abnormal CT of the abdomen 08/19/2024 Bipolar disorder ([facility] V24, [facility] V28) 1104/2024 Overview (08/19/2024): Joan psych COVID-19 08/19/2024 CTS [...] Type 2 diabetes mellitus wit h cataract ([facility] V24, [facility] V28) 05/04/2020 Obesity (BMI 30.0-34.9) 02/10/2018 Stage 1 mild COPD by GOLD cl assification ([facility] V24, [facility] V28) 02/10/2018 Overview (08/19/2024): Last Assessment & Plan: Mild COPD. Continue with Trelegy 1 puff once a day. Migraine 01/16/2017 Palpitations 07/08/2016 CHF (congestive heart failure) ([facility] V24, [facility] V28) 04/22/2016 Asthma 04/05/2016 Overview (08/19/2024): Last Assessment & Plan: Continue with the use of Trelegy. The severity of asthma does not correlate with her symptoms. She is doing excellent with the Trelegy as well we will continue it. Diabetes mellitus with neuro logical manifestation ([facility] V24, [facility] V28) 12/19/2014 Pulmonary nodules/lesions, multiple 10/17/2014 Overview (08/19/2024): Last Assessment & Plan: Patient has history of calcified granulomas which has been stable for many years. Aneurysm of middle cerebral artery 07/07/2014 Overview (08/19/2024): 4mm on the R MCA bifucation. Patient was follow in [place] and no intervention was recommended Urinary incontinence 11/18/2013 Diabetic neuropathy ([facility] V24, [facility] V28) 0 02/03/2013 Overview (08/19/2024): Noted on [...] Encounters Date Type Department Care Team Description 09/05/2025 10:00 AM EST Office Visit Endocrinology - [address] [phone] Ryan Snow MD Type 2 diabetes mellitus with hypoglycemia without coma, with long-term current use of insulin (CMS/[facility] V24, [facility] V28) (Primary Dx) 08/30/2025 10:00 AM EST - 08/30/2025 11:59 PM EST Hospital Encounter CT Scan - [address] [phone] Stage 1 mild COPD by GOLD classification (CMS/HCC V24, CMS/[facility] V28); Dyspnea on exertion Discharge Disposition: Home or Self Care 08/18/2025 Billing Patient Not Present Adult Medicine [address] [phone] Latasha Adams MA 08/18/2025 Telephone Adult Medicine [address] [phone] Ashwin Arzola MD 08/12/2025 Telephone Pulmonology [facility] [address] [phone] Tanika Jack MD 08/11/2025 10:35 AM EDT Office Visit Pulmonology [facility] [address] [phone] Cami Dupont NP JOSÉ (obstructive sleep apnea) (Primary Dx); Stage 1 mild COPD by GOLD classification (CMS/HCC V24, CMS/HCC V28); Dyspnea on exertion 08/11/2025 Telephone Adult Medicine [address] [phone] Ashwin Arzola MD 08/11/2025 Telephone Orthopedic Surgery [facility] [address] [phone] Linus Luna DPM 07/29/[address] [phone] Ashwin Arzola MD 07/28/2025 10:30 AM EDT Office Visit Endocrinology [address] [phone] Ryan Snow MD Type 2 diabetes mellitus with diabetic polyneuropathy, with long-term current use of insulin ([facility] V24, [facility] V28) (Primary Dx); Uncontrolled type 2 diabetes mellitus with hyperglycemia ([facility] V24, [facility] V28) 07/27/2025 10:00 AM EDT Office Visit Adult [address] [phone] Timmy Avina PA Hypoglycemia (Primary Dx); Type 2 diabetes mellitus with other specified complication, with long-term current use of insulin ([facility] V24, [facility] V28) 07/27/2025 Telephone Adult [address] [phone] Antonio Elias LPN 07/27/[address] [phone] Antonio Elias LPN 07/26/2025 10:30 AM EDT Office Visit Orthopedic Surgery [address] [phone] Linus Luna, DPM Tinea pedis of both feet (Primary Dx); Corns and callosities; Type II diabetes mellitus with peripheral circulatory disorder ([facility] V24, [facility] V28); Metatarsalgia of both feet; Pain in toe of right foot; Dermatophytosis of nail; Diabetic mononeuropathy simplex ([facility] V24, [facility] V28); Primary osteoarthritis of both feet; Pain in toe of left foot [M79.675] 07/11/2025 Telephone Adult Medicine [address] [phone] Janna New MA 07/08/2025 Telephone Adult Medicine [address] [phone] Ashwin Arzola MD 07/06/2025 Telephone Adult Medicine [address] [phone] Antonio Elias LPN 07/06/2025 Telephone Adult Medicine [address] [phone] Ashwin Arzola MD 07/04/2025 Telephone Orthopedic Surgery [place] [address] [phone] Domitila Carl 07/01/2025 Telephone Orthopedic [place] [address] [phone] Michele May MD 06/30/2025 11:30 AM EDT Office Visit Adult [address] [phone] Ashwin Arzola MD Uncontrolled type 2 diabetes mellitus with hyperglycemia (CMS/HCC V24, CMS/HCC V28) (Primary Dx); Need for prophylactic vaccination and inoculation against influenza; High cholesterol; Encounter for long-term (current) use of medications; Primary hypertension 06/27/2025 Telephone Pulmonology [facility] [address] [phone] Cami Dupont NP 06/20/2025 11:15 AM EDT Office Visit Orthopedic [facility] [address] [phone] Michele aMy MD Right rotator cuff tendinitis (Primary Dx); Right tennis elbow; Numbness and tingling in left hand 06/16/2025 Telephone Pulmonology [facility] [address] [phone] Cami Dupont NP 06/14/2025 9:45 AM EDT Office Visit Pulmonology - [place] [address] [facility] [address] [place] [phone] Cami Dupont NP Moderate persistent asthma without complication (Primary Dx); Stage 1 mild COPD by GOLD classification ([facility] V24, [facility] V28); Pulmonary nodules/lesions, multiple; JOSÉ (obstructive sleep apnea); Obesity (BMI 30.0-34.9) 06/09/2025 Telephone Adult Medicine [address] [phone] Antonio Elias LPN 06/08/2025 11:15 AM EDT Office Visit Adult [address] [phone] Eddie Stapleton MD Cellulitis of other specified site (Primary Dx); Folliculitis; Type 2 diabetes mellitus with hyperglycemia, with long-term current use of insulin ([facility] V24, [facility] V28) 06/06/2025 Telephone Adult Medicine [address] [phone] Antonio Elias LPN from Last 3 Months Immunizations Immunization Administration [...] under propofol UPPER GASTROINTESTINAL ENDOSCOPY 10/29/2016 PROCEDURE: [place] UPPER GI ENDOSCOPY PERFORMED; COMMENT: gastritis; biopsies not taken COLONOSCOPY 03/31/2012 PROCEDURE: HISTORICAL COLONOSCOPY; COMMENT: [facility]; Four adenomas UPPER GASTROINTESTINAL ENDOSCOPY 09/02/2019 PROCEDURE: UPPER GI ENDOSCOPY/EXAM; COMMENT: gastritis, biopsy pending CATARACT EXTRACTION Right PROCEDURE: HISTORICAL CATARACT REMOVAL Medical History Medical History Date Comments Asthma DX:Asthma Seronegative rheumatoid arth ritis ([facility] V24, [facility] V28) DX:Seronegative rheumatoid arthritis (HCC) Lumbar spondylosis DX:Lumbar spo ndylosis; COMMENT: L3-S1 CTS (carpal tunnel syndrome) DX: CTS (carpal tunnel syndrome); COMMENT: s/p bilat surgery Plantar fasciitis DX:Plantar fas ciitis; COMMENT: Left Medial epicondylitis DX:Medial e picondylitis Pulmonary nodules DX:Pulmonary n odules; COMMENT: calcified Diabetes mellitus ([facility] V 24, [facility] V28) DX:Diabetes mellitus (HCC) Bipolar disorder ([facility] V2 4, [facility] V28) DX:Bipolar disorder (HCC) HTN (hypertension) DX:HTN (hyper tension) Bronchitis, not specified as acute or chronic DX:Bronchitis, not specified as acute or chronic Diabetes mellitus with neuro logical manifestation ([facility] V24, [facility] V28) 12/19/2014 DX:Diabetes mellitus with neurological manifestation ([facility]) Hemiparesis affecting left s anthony as late effect of stroke ([facility] V24, [facility] V28) 05/15/2016 DX:Hemiparesis affecting lef t side as late effect of stroke ([facility]) Gastritis 11/22/2016 DX:Gastritis Migraine 01/16/2017 DX:Migraine Migraine without status migr ainosus, not intractable 01/16/2017 DX:Migraine without status migrainosus, not intractable 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 ([facility] V24, [facility] V28) 02/20/2017 DX:DM type [...] Pulse 76 09/05/2025 9:57 AM EST Temperature 35.7 C (96.3 F) 08/11/2025 10:36 AM EDT Respiratory Rate 16 08/11/2025 10:3 6 AM EDT Oxygen Saturation 94% 08/11/2025 10: 36 AM EDT Inhaled Oxygen Concentration - - Weight 85.2 kg (187 lb 12.8 oz) 09/05/2025 9:57 AM EST Height 157.5 cm (5' 2 ) 08/11/2025 10:3 6 AM EDT Body Mass Index 34.35 08/11/2025 10:36 AM EDT Plan of Treatment Upcoming Encounters Date Type Department Care Team (Late st Contact Info) Description 09/21/2025 11:00 AM EST Office Visit [facility] [address] [phone] Hermelinda Marmolejo NP [address] [place] [address] [place] [phone] 09/29/2025 11:00 AM EST Appointment Radiology Department - [address] [phone] 10/19/2025 10:00 AM EST Consult Adult Medicine [facility] - [address] [phone] Ashwin Arzola MD [address] [place] [address] 10/26/2025 10:15 AM EST Office Visit Orthopedic Surgery - [place] [address] [phone] Linus Luna, DPM [address] [phone] 12/07/2025 10:40 AM EST Office Visit Endocrinology - [address] [phone] Ryan Snow MD [address] [place] [address] 12/13/2025 10:10 AM EST Office Visit Pulmonology [facility] 175 [facility] [address] [place] [phone] Cami Dupont, [place] [address] [place] [phone] 01/23/2026 9:45 AM EDT Office Visit Adult Medicine [facility] [address] [place] [phone] Ashwin Arzola MD [address] [place] [phone] Health Maintenance Due Date Last Done Comments RSV Immunization Adult Patients (1 - Risk 50-74 years 1-dose series) 2004 Falls Risk Assessment 09/21/2022 Social Influencers of [...] Albumin-Creatinine Ratio (uACR) 07/04/2026 07/04/2025, 09/23/2024, 12/13/2022 Diabetes: Annual Retina Eye Exam 07/29/2026 07/29/2025 Cholesterol Screening (Lipid Panel) 06/30/2030 06/30/2025, 09/23/2024, [...] Procedure Name Priority Date/Time Associated Diagnosis Comments [place] SLEEP STUDY ATTENDED 08/17/2025 EXTERNAL DIABETIC RETINA EYE EXAM 07/29/2025 POC GLUCOSE Routine 07/28/2025 11:11 AM EDT Type 2 diabetes mellitus with diabetic polyneuropathy, with long-term current use of insulin ([facility] V24, [facility] V28) MICROALBUMIN CREATININE URINE RATIO Routine 07/04/2025 10:57 AM EDT Uncontrolled type 2 diabetes mellitus with hyperglycemia ([facility] V24, [facility] V28) Primary hypertension High cholesterol HEMOGLOBIN A1C Routine 06/30/2025 12:30 PM EDT Uncontrolled type 2 diabetes mellitus with hyperglycemia ([facility] V24, CMS/[facility] V28) LIPID PANEL WITH REFLEX TO DIRECT LDL Routine 06/30/2025 12:30 PM EDT High cholesterol COMPREHENSIVE METABOLIC PANEL Routine 06/30/2025 12:30 PM EDT Uncontrolled type 2 diabetes mellitus with hyperglycemia ([facility] V24, [facility] V28) Primary hypertension DEPRESSION SCREENING Routine 08/11/2024 SCREENING MAMMOGRAPHY BI [...] Recently Relevant to Health Maintenance Results * General sleep study (08/17/2025) us Provider [facility] ORDERABLES Final Result * External Diabetic Retina Eye Exam Report (07/29/2025) Anatomical Region Laterality Modality Ultrasound us Provider [facility] PROCEDURES Final Result * POC glucose manually resulted (07/28/2025 11:11 AM EDT) Glucose POC 239 mg/dL Blood Capillary blood specimen / Unknown 07/28/2025 11:11 AM EDT us Ryan Snow MD POINT OF CARE TEST EN TER/EDIT ORDERABLES Final Result * (ABNORMAL) Microalbumin creatinine urine ratio (07/04/2025 10:57 AM EDT) Creatinine, Urine 221.0 mg/dL LAB CHEMISTRY METHOD 07/04/2025 1:46 PM EDT [facility] Microalb, Ur 51.5(H) 0.0 - 29.0 mg/L LAB CHEMISTRY METHOD 07/04/2025 1:46 PM EDT [facility] Microalb/Crea t Ratio 23 <30 mg/g creat LAB CHEMISTRY METHOD 07/04/2025 1:46 PM EDT [facility] Urine Urine specimen obtained by clean catch procedure / Unknown Non-blood Collection / Unknown 07/04/2025 10:57 AM EDT 07/04/2025 10:57 AM EDT us Ashwin Arzola MD LAB URINE ORDERABLES Final Resu lt [facility] [address] [place] [address], [place] [phone] * Lipid panel with reflex to direct LDL (06/30/2025 12:30 PM EDT) Cholesterol 156 0 - 200 mg/dL LAB CHEMISTRY METHOD 06/30/2025 5:20 PM EDT [facility] Triglycerides 99 0 - 150 mg/dL LAB CHEMISTRY METHOD 06/30/2025 5:20 PM EDT [facility] HDL 80 >=40 mg/dL LAB CHEMISTRY METHOD 06/30/2025 5:20 PM EDT [facility] LDL Calculated 56 0 - 100 mg/dL LAB CHEMISTRY METHOD 06/30/2025 5:20 PM EDT [facility] Comment:Estimated LDL Calcul ated using equation: Total cholesterol - HDL cholesterol - (Triglycerides/5) VLDL Cholesterol Jacoby 19.8 mg/dL LAB CHEMISTRY METHOD 06/30/2025 5:20 PM EDT [facility] Non HDL Chol. (LDL+VLDL) 76 <145 mg/dL LAB CHEMISTRY METHOD 06/30/2025 5:20 PM EDT [facility] Chol/HDL Ratio 2.0 0.0 - 4.4 LAB CHEMISTRY METHOD 06/30/2025 5:20 PM EDT [facility] Blood Venous blood specimen / Unknown Venipuncture / Unknown 06/30/2025 12:30 PM EDT 06/30/2025 12:30 PM EDT us Ashwin Arzola MD LAB BLOOD ORDERABLES Final Resu lt Performing Organization Address [facility]/ZIP Co de Phone Number [facility] [address] [place] [address], [place] [phone] * (ABNORMAL) Hemoglobin A1c (06/30/2025 12:30 PM EDT) Hemoglobin A1C 9.1(H) <6.5 % LAB CHEMISTRY METHOD 06/30/2025 10:01 PM EDT [facility] Mean Bld Glu Estim. 214 mg/dL LAB CHEMISTRY METHOD 06/30/2025 10:01 PM EDT [facility] Blood Venous blood specimen / Unknown Venipuncture / Unknown 06/30/2025 12:30 PM EDT 06/30/2025 12:30 PM EDT us Ashwin Arzola MD LAB BLOOD ORDERABLES Final Resu lt Performing Organization Address City/[facility]/ZIP Co de Phone Number [facility] [address] [place] [address], [place] [phone] * (ABNORMAL) Comprehensive metabolic panel (06/30/2025 12:30 PM EDT) Sodium 140 133 - 145 mmol/L LAB CHEMISTRY METHOD 06/30/2025 5:18 PM [facility] Potassium 3.7 3.5 - 5.5 mmol/L LAB CHEMISTRY METHOD 06/30/2025 5:18 PM [facility] Chloride 103 96 - 110 mmol/L LAB CHEMISTRY METHOD 06/30/2025 5:18 PM [facility] CO2 33(H) 21 - 32 mmol/L LAB CHEMISTRY METHOD 06/30/2025 5:18 PM [facility] Anion Gap 4 3 - 11 LAB CHEMISTRY METHOD 06/30/2025 5:18 PM [facility] Glucose 110(H) 70 - 100 mg/dL LAB CHEMISTRY METHOD 06/30/2025 5:18 PM [facility] BUN 14 5 - 25 [...] unit/L LAB CHEMISTRY METHOD 06/30/2025 5:18 PM EDT [facility] Alkaline Phosphatase 77 42 - 121 unit/L LAB CHEMISTRY METHOD 06/30/2025 5:18 PM EDT [facility] Total Protein 6.8 6.0 - 8.0 g/dL LAB CHEMISTRY METHOD 06/30/2025 5:18 PM EDT [facility] Albumin 3.6 3.2 - 5.0 g/dL LAB CHEMISTRY METHOD 06/30/2025 5:18 PM EDT [facility] Total Bilirubin 0.3 0.0 - 1.4 mg/dL LAB CHEMISTRY METHOD 06/30/2025 5:18 PM EDT [facility] Blood Venous blood specimen / Unknown Venipuncture / Unknown 06/30/2025 12:30 PM EDT 06/30/2025 12:30 PM EDT Ashwin Arzola MD LAB BLOOD ORDERABLES Final Resu lt [facility] [address] [place] [address], * Depression Screening (08/11/2024) Depression Screening abstracted [...] bone mineral density by WHO criteria. [facility] Department of Internal Medicine recommends using [...] schedule based on dia [place]., [facility] October 31, 2011 for patients with osteopenia [...] bone mineral density by WHO criteria. [facility] Department of Internal Medicine recommendsusing National [...] DXA PROCEDURES Final Result * Colonoscopy (05/19/2017) [facility] Colonoscopy abstracted, no interpretation Anatomical Region Laterality Modality Other Result [facility] Historical Provider HEALTH MAINTENANCE Final Result * Hepatitis C Screening (05/04/2014) [facility] Hepatitis C Screening abstracted Historical Provider HEALTH MAINTENANCE Final Result from Last 3 Months or Most Recently Relevant to Health Maintenance Insurance [facility] Member Subscriber Plan / Payer (Ef fective 2024-Present) Name:MELYSSA KEATING Relation to Subscriber:Self Name:Melyssa Keating Payer ID:[id number] Group ID:[id number] Type:Not on file Address: [place] [address] [address] [address] Care Teams Blast Furnace Blower Relationship Specialty Start Date End Date Ashwin Arzola MD [address] [place] [phone] PCP - General Internal Medicine 08/01/20
--- OUTSIDE RECORDS SUMMARY | 2025-09-06 12:57 | XMS_ITS | Encounter Summary ---
Author Organization [facility] Address [address] [place] [address] Care Team Providers Care Quilt Maker Name Role Phone Ashwin Arzola MD Primary Care Provider [phone] Reason for Visit * Reason Onset Date Comments faxed order 08/11/2025 [id number] order [id number], [id number], [id number] Encounter Details Date Type Department Care Team ([facility] Contact Info) Description 08/11/[address] [phone] Ashwin Arzola MD [address] [place] [address] Social History Tobacco Use Types Packs/Day Years [...] as of this encounter Progress Notes * Maria Luisa Sullivan - 08/11/2025 2:32 PM EDT [id number] order [id number] received please sign and fax to [phone] documented in this encounter Plan of Treatment Upcoming Encounters Date Type Department Care Team ([facility] Contact Info) Description 09/21/2025 11:00 AM EST Office Visit [facility] - [facility] 102 300 [facility] 102 [place] [address] Hermelinda Marmloejo NP [address] [place] [address] [place] [address] 09/29/2025 11:00 AM EST Appointment Radiology Department [address] [phone] 10/19/2025 10:00 AM EST Consult Adult Medicine [address] [phone] Ashwin Arzola MD [address] [place] [address] 10/26/2025 10:15 AM EST Office Visit Orthopedic Surgery - [place] 250 175 [facility] [address] 250 [place] [address] Linus Luna, DPM [address] [address] 12/07/2025 10:40 AM EST Office Visit Endocrinology [address] [phone] Ryan Snow MD [address] [place] [address] 12/13/2025 10:10 AM EST Office Visit Pulmonology - [place] 175 [facility] [address] 200 [place] [phone] Cami Dupont, [place] 230 [place] [phone] 01/23/2026 9:45 AM EDT Office Visit Adult Medicine [address] [phone] Ashwin Arzola MD [address] [place] [address] documented as of this encounter Visit Diagnoses Not on filedocumented in this encounter Care Teams Quilt Maker Relationship Specialty Start Date End [place] [phone] PCP - General Internal Medicine 08/01/20 documented as of this encounter
--- OUTSIDE RECORDS SUMMARY | 2025-09-06 12:57 | XMS_ITS | Clinical Summary ---
Author Organization [facility] Address [address] [facility] [address] [place] [phone] Phone Care Team Providers Care Shellfish Grower Name Role Phone Unavailable Primary Care Provider [...] Medical Devices Not on file Insurance [facility] MEDICARE REPLACEMENT [facility] MEDICARE REPLACEMENT MEDICARE REPLACEMENT [facility] MEDICARE REPLACEMENT [facility] MEDICARE REPLACEMENT [facility] MEDICARE REPLACEMENT Additional Source Comments The information contained in this document represents components of the legal health record. It is not the complete legal health record.[facility]
--- OUTSIDE RECORDS SUMMARY | 2025-09-06 12:57 | XMS_ITS | Encounter Summary ---
Author Organization [facility] Address [address] [place] [address] Care Team Providers Care Watch Dial Printer Name Role Phone Ashwin Arzola MD Primary Care Provider [phone] Reason for Visit * Reason Comments home health cert Encounter Details Date Type Department Care Team (Late Contact Info) Description 08/18/2025 Billing Patient Not Present Adult Medicine [address] [phone] Latasha Adams [place] Social History Tobacco Use Types Packs/Day [...] Description 09/21/2025 11:00 AM EST Office Visit [facility] 102 300 [facility] 102 [place] [phone] Hermelinda Marmolejo NP [address] [place] [address] [place] [address] 09/29/2025 11:00 AM EST Appointment Radiology Department - [address] [phone] 10/19/2025 10:00 AM EST Consult Adult Medicine [address] [phone] Ashwin Arzola MD [address] [place] [address] 10/26/2025 10:15 AM EST Office Visit Orthopedic Surgery - [place] 250 175 [facility] 250 [place] [address] Linus Luna, DPM [address] [phone] 12/07/2025 10:40 AM EST Office Visit Endocrinology [address] [phone] Ryan Snow MD [address] [place] [address] 12/13/2025 10:10 AM EST Office Visit Pulmonology - [place] 175 [facility] 200 [place] [address] Cami Dupont, WEATHERIZATION COORDINATOR [address] [place] [address] 01/23/2026 9:45 AM EDT Office Visit Adult Medicine [address] [phone] Ashwin Arzola MD [address] [place] [address] documented as of this encounter Visit Diagnoses Not on filedocumented in this encounter Care Teams Watch Dial Printer Relationship Specialty Start Date End Date Ashwin Arzola MD [address] [place] [address] PCP - General Internal Medicine 08/01/20 documented as of this encounter
--- OUTSIDE RECORDS SUMMARY | 2025-09-06 12:57 | XMS_ITS | Encounter Summary ---
Author Organization [facility] Address [address] [place] [address] Care Team Providers Care Sfdc Consultant Name Role Phone Ashwin Arzola MD Primary Care Provider [phone] Encounter Details Date Type Department Care Team (Late Contact Info) Description 01/07/2025 Billing Patient Not Present Adult Medicine [address] [phone] Ashwin Arzola MD [address] [place] [address] Social History Tobacco Use Types Packs/Day Years [...] Description 09/21/2025 11:00 AM EST Office Visit [facility] - [facility] [address] [facility] [address] [place] [phone] Hermelinda Marmolejo NP [address] [place] [address] [place] [address] 09/29/2025 11:00 AM EST Appointment Radiology Department - [address] [phone] 10/19/2025 10:00 AM EST Consult Adult Medicine [address] [phone] Ashwin Arzola MD [address] [place] [address] 10/26/2025 10:15 AM EST Office Visit Orthopedic Surgery - [place] 250 175 [facility] 250 [place] [phone] Linus Luna, DPM [address] [phone] 12/07/2025 10:40 AM EST Office Visit Endocrinology [address] [phone] Ryan Snow MD [address] [place] [address] 12/13/2025 10:10 AM EST Office Visit Pulmonology - [place] 175 [facility] 200 [place] [phone] Cami Dupont, [address] [phone] 01/23/2026 9:45 AM EDT Office Visit Adult Medicine [address] [phone] Ashwin Arzola MD [address] [place] [address] documented as of this encounter Visit Diagnoses Not on filedocumented in this encounter Care Teams Sfdc Consultant Relationship Specialty Start Date End Date Ashwin Arzola MD [address] [place] [address] PCP - General Internal Medicine 08/01/20 documented as of this encounter
--- OUTSIDE RECORDS SUMMARY | 2025-09-06 12:57 | XMS_ITS | Encounter Summary ---
Author Organization [facility] Address [address] [place] [address] Care Team Providers Care Child Study Team Director Name Role Phone Ashwin Arzloa MD Primary Care Provider [phone] Reason for Visit * Reason Onset Date Comments boost milk request 08/18/2025 Encounter Details Date Type Department Care Team (Late Contact Info) Description 08/18/[address] [phone] Ashwin Arzola MD [address] [place] [address] Social History Tobacco Use Types Packs/Day Years [...] as of this encounter Progress Notes * Chio Jaimes - 08/18/2025 3:27 PM EST Patient AREA SECRETARY is calling requesting Boost strawberry milk for patient due to patient not being able to drink ensure due to being diabatic, AREA SECRETARY stated she has been requesting the boost strawberry milk for some time and got no updates, please advise. documented in this encounter Plan of Treatment Upcoming Encounters Date Type Department Care Team (Late st Contact Info) Description 09/21/2025 11:00 AM EST Office Visit [facility] - [facility] 102 300 [facility] 102 [place] [phone] Hermelinda Marmolejo NP [address] [place] [address] [place] [address] 09/29/2025 11:00 AM EST Appointment Radiology Department [address] [phone] 10/19/2025 10:00 AM EST Consult Adult Medicine [address] [phone] Ashwin Arzola MD [address] [place] [address] 10/26/2025 10:15 AM EST Office Visit Orthopedic Surgery - [place] 250 175 [facility] 250 [place] [phone] Linus Luna, DPM [address] [phone] 12/07/2025 10:40 AM EST Office Visit Endocrinology [address] [phone] Ryan Snow MD [address] [place] [address] 12/13/2025 10:10 AM EST Office Visit Pulmonology - [place] 175 [facility] 200 [place] [phone] Cami Dupont, [place] 230 [place] [phone] 01/23/2026 9:45 AM EDT Office Visit Adult Medicine [address] [phone] Ashwin Arzola MD 444 [place], [place] documented as of this encounter Visit Diagnoses Not on filedocumented in this encounter Care Teams Child Study Team Director Relationship Specialty Start Date End Date Ashwin Arzola MD [address] [place] [phone] PCP - General Internal Medicine 08/01/20 documented as of this encounter
== END 2025-09-06 11:18 | disposition home or self-care (01) ==
LOC: HO.HOS 10:26
PROVIDERS: PCP Internal Medicine
DX: G56.02 Carpal tunnel syndrome, left upper limb (principal)
CPT/HCPCS: 99204

== ENCOUNTER → 2025-09-06 10:25 | Outpatient (BNVA) | payer OTHER, SELFPAY | PROVIDERS: PCP Internal Medicine | DX: G56.02 Carpal tunnel syndrome, left upper limb (principal) | CPT/HCPCS: 99202 ==

== ENCOUNTER 2025-09-19 10:34 | Outpatient (AMB) | payer OTHER, SELFPAY ==
--- NOTE | 2025-09-19 10:35 | A.OFFVIS_ITS ---
Intake Visit Reasons: 3M DANIEL Cytotechnologist/Histotechnologist Required: Yes Cytotechnologist/Histotechnologist Services: Cytotechnologist/Histotechnologist Offered & Declined (DRIVE WORKER to translate) Accompanied by: DRIVE WORKER Allergies Penicillins Allergy (Mild, Verified 09/19/25 10:42) Swelling Medication List - Last Reconciled 09/19/25 by Anayeli Dinero CNP albuterol sulfate 2.5 mg inhalation Q4H PRN albuterol sulfate 90 mcg/actuation 2 puffs inhalation Q6H PRN amitriptyline 50 mg PO BEDTIME atorvastatin 80 mg PO BEDTIME bisacodyl (Dulcolax (bisacodyl)) 10 mg (2 x 5 mg) PO ONCE 5 days blood sugar diagnostic (Methoduch Ultra Test strips) As directed budesonide-formoterol 160-4.5 mcg/actuation inhalation fjgjuderti-vdadofxqmipum-aekp 50-325-40 mg 1 tab PO Q6H PRN 30 days ciclopirox 0.77% 1 appl topical BID clonazepam 0.5 mg PO TID PRN docusate sodium 100 mg PO BID duloxetine 40 mg PO DAILY famotidine 20 mg PO DAILY eymbiybpklc-gcyzuvrxg-ooyakoas 100-62.5-25 mcg (Trelegy Ellipta) 1 ea inhalation DAILY gabapentin 300 mg PO TID insulin glargine (Lantus U-100 Insulin) 10 units (0.1 mL) subcut BEDTIME lancets (VividWorksTouch Delica Plus Lancet) As directed lisinopril 10 mg PO DAILY loratadine 10 mg PO DAILY magnesium oxide 400 mg PO DAILY metformin ER 500 mg PO DAILY metoclopramide HCl 10 mg PO QID metoprolol tartrate 25 mg PO DAILY montelukast 10 mg PO BEDTIME nitroglycerin 0.4 mg sublingual Q5M PRN omeprazole 40 mg PO BID pantoprazole 40 mg PO DAILY polyethylene glycol 3350 (Miralax) 17 grams PO BID 30 days polyethylene glycol 3350 (Miralax) 17 grams PO DAILY 1 day potassium chloride ER 20 mEq PO DAILY sennosides (senna) 8.6 mg PO DAILY sennosides-docusate sodium 8.6-50 mg (Senna with Docusate Sodium) 2 tab-caps (2 x 8.6-50 mg) PO BEDTIME 60 days tiotropium bromide (Spiriva with HandiHaler) 1 cap inhalation DAILY tirzepatide (Mounjaro) mg subcut tramadol 50 mg PO Q8H PRN HPI Comments Details: She was having more headaches. Gets daily, pressure-type pain to top of head, vertex to posterior occipital with neck pain, usually left sided. Some photophobia and sonophobia, no nausea or vomiting. Dizziness with position rodas ges was about the same, no falls. Sleep was about the same. She was here with DRIVE WORKER who had medication list which was reviewed. She apparently discussed trying to reduce amount of medications taken with psychiatry at some point, and amitriptyline dose was reduced to 50mg (from previously prescribed 150mg dose from this office, which she had been taking since about 2020). Butalbital as needed was not listed. She had labs and repeat CTA in 07/2025. Previously, was waking up in the night and had some nausea. MRI and workup were negative. Fell in kitchen 10/2022. Had normal CAT scan of head. Had CTA of neck which was unremarkable. CTA of brain showed an incidental finding of 4mm right MCA aneurysm. 07/25/2023 f/u CTA shows stable appearing 3.7mm x 3mm saccular aneurysm projecting laterally from the right MCA bifurcation. She has hx of aneurysmal rupture in first degree relative, her brother. [facility] Medical History (Updated 09/06/25 @ 16:23 by KATHRYN Mratins) Rheumatoid arthritis Cervical spondylitis Depression Headache Dyslipidemia Hypertension Cerebral aneurysm, nonruptured Seizure disorder JOSÉ (obstructive sleep apnea) Delusions Major neurocognitive disorder Chest pain Dyspnea on exertion COVID-19 GERD (gastroesophageal reflux disease) DJD (degenerative joint disease) COPD (chronic obstructive pulmonary disease) Bipolar disorder CTS (carpal tunnel syndrome) Hx of rheumatoid arthritis Diabetic neuropathy Urinary incontinence Aneurysm of middle cerebral artery Pulmonary nodules CHF (congestive heart failure) Palpitations Migraine History of COVID-19 Mild aortic stenosis Asthma Insulin dependent type 2 diabetes mellitus Mixed hyperlipidemia Mood disorder Essential hypertension Surgical History (Updated 07/20/25 @ 14:13 by Chelita Azar RN) H/O colonoscopy History of esophagogastroduodenoscopy (EGD) Hx of cataract surgery H/O: hysterectomy Hx of cholecystectomy History of carpal tunnel release Family History Mother Myocardial infarction Father Myocardial infarction Sister Breast cancer Brother Spleen cancer Social History (Updated 09/06/25 @ 10:49 by KELL Layen) Household Members: None Housing: Apartment Do you presently have visiting nurse or other home services: Yes (regional sales coordinator) Alcohol intake: never Comment: report given by Cleo menendez Patient Tobacco Use Status: Former Tobacco user Tobacco use type: Cigarette Cigarette Packs Per Day: 0.2 Cigarettes Per Day: 4.0 Years Smoked: 7931-2546 e-Cigarette/Vaping Use: Never Used Second Hand Smoke Exposure: No Advance Directives Date on File: 11/20/23 service: No Current occupational status: retired Current occupation: rt handed Sexual orientation: Straight/Heterosexual Review of Systems Const Denies chills, Denies daytime sleepiness, Reports difficulty sleeping, Denies fatigue, Denies fever(s), Denies frequent falls, Reports headache(s), Denies increased appetite, Denies poor appetite, Denies snoring, Denies weakness, Denies weight gain and Denies weight loss Eyes Denies loss of vision ENT Denies vertigo, Reports dizziness, Reports headache(s) and Reports neck pain Card Denies chest pain at rest, Denies chest pain with activity, Denies syncope, Denies leg edema, Denies palpitations, Denies dyspnea and Denies dyspnea on exertion Resp Denies cough, Denies dyspnea, Denies dyspnea on exertion and Denies snoring GI Denies abdominal pain, Denies constipation, Denies heartburn, Denies diarrhea and Denies nausea Denies urinary frequency, Denies urinary incontinence and Denies urinary urgency Musc Denies abnormal gait, Reports back pain, Denies myalgias, Reports arthralgias, Reports neck pain, Reports numbness and Reports tingling Neuro Denies abnormal gait, Denies vertigo, Reports dizziness, Denies syncope, Denies frequent falls, Reports headache(s), Denies lack of coordination, Denies loss of vision, Denies memory loss, Reports numbness, Denies Other visual disturbances, Denies restless legs, Denies seizure-like activity, Reports tingling, Denies paresthesias, Denies tremor(s) and Denies weakness Psych Reports anxiety, Reports depression, Denies auditory hallucinations, Denies memory loss and Denies visual hallucinations Endo Denies fatigue and Denies palpitations Physical Exam Const Other: General Appearance:? normal, in no acute distress. Heart:? S1, S2 normal, no murmurs. Lungs:? clear anteriorly and posteriorly. Musculoskeletal:? normal. Extremities:? no edema. Psych:? alert, oriented, cognitive function intact, cooperative with exam. Neuro Other: Abnormal Neurological Findings:?none.? Mental Status: alert and oriented X 3. Normal attention, orientation, memory, and affect. Cranial Nerves: Pupils are equal, round, and reactive to light. External ocular muscles are intact. Visual machado are full, no ptosis. Face is symmetrical, no facial weakness or droop. Facial sensations are normal. Tongue protrudes in midline. Palate elevates symmetrically. Shoulder shrugging is normal Motor Examination: Normal muscle tone, bulk and strength. No atrophy or fasciculations. No drift of the extended upper extremities. DTR 2+. Plantars are flexor. Sensory Exam: Normal light touch, temperature, pinprick, vibration, and joint- position sensations. Rhomberg sign is absent. Coordination: No ataxia. No titubation. Gait Exam: Within normal limits. Cerebellar Signs: Femnpl-vq-mmfs is okay. Extrapyramidal System: No tremor, rigidity with normal facial expressions. No b radykinesia. No bradyphrenia. Normal arm swing and posture. No propulsion or retropulsion. Speech: Normal. Results Reviewed Results Reviewed: [address] [address] [address] Scan Report Signed Patient: Melyssa Keating MR#: [id number] : 1955 Acct:[id number] Age/Sex: 70 / F ADM Date: 08/09/25 Loc: HO.CT Attending Dr: Anayeli Dinero CNP Ordering Physician: Anayeli Dinero CNP Date of Service: 08/09/25 Procedure(s): CT angio head Accession Number(s): [id number] cc: Ashiwn Arzola III, MD; Anayeli Dinero CNP~ Report Number: [id number]: Total DLP = 1198.00 mGy-cm Reason for Exam: I67.1 - Cerebral aneurysm, nonruptured CLINICAL HISTORY: I67.1 - Cerebral aneurysm, nonruptured CT head without contrast CT angiography head with contrast. 3D Postprocessing. Comparison: 12/23/2024 Findings: Stable laterally projecting 3 mm right M1 bifurcation aneurysm. Otherwise no aneurysm, significant stenosis, AVM, or dissection at level of the visualized arteries. No abnormal intracranial enhancement. Patent dural venous sinuses. No intra-axial mass, midline shift, hydrocephalus, or acute hemorrhage. Mild age-related cerebral hemispheric white matter ischemic changes. Bilateral cataract surgery. No acute fracture. Clear paranasal sinuses and left mastoid air cells. Sclerotic/hypoplastic right mastoid air cells as before IMPRESSION: No acute intracranial finding. Stable laterally projecting 3 mm right M1 bifurcation aneurysm. Otherwise no aneurysm, significant stenosis, AVM, or dissection at level of the visualized arteries. This document has been electronically signed by: Chasidy Berry MD on 08/09/2025 11:57:49 Dictated By: Chasidy Berry MD Signed By: <Electronically signed by Chasidy Berry MD in OV> 08/09/25 1159 Laboratory Tests 06/14/25 13:07 ESR 11 BUN 23 H Creatinine 0.69 C-Reactive Protein 0.19 07/25/23 CTA: Stable appearing 3.7 mm x 3 mm saccular aneurysm projecting laterally from the right MCA bifurcation. CT and MRI brain normal. Assessment & Plan Assessment & Plan (1) Tension headache: Code(s): G44.209 - Tension-type headache, unspecified, not intractable Category: Medical Plan: Chronic tension-type headaches were treated with amitriptyline 150mg 1 tablet at bedtime since 2020. At some point, dose was reduced to 50mg at bedtime by psychiatrist. Increase amitriptyline 100mg 1 tablet at bedtime (for management of chronic tension-type headaches) Increase gabapentin 300mg 1 capsule three times a day. Continue atkbxkbjgr-WHCL-ibwt 50-325-40mg 1 tablet as needed q6h for headache # 20 for 30 days. Continue tramadol 50mg 1 tablet as needed q8h for pain #30 for 30 days. Labs and CTA results reviewed. Follow up in 4 months or sooner as needed. (2) Cerebral aneurysm, nonruptured: Code(s): I67.1 - Cerebral aneurysm, nonruptured Category: Medical Plan: CTA results reviewed, stable from previous (2022). Medications: New amitriptyline 100 mg PO BEDTIME 90 days 90 tabs 1RF amitriptyline 100 mg PO BEDTIME 90 tabs 1RF 90 days Changed From gabapentin 300 mg PO TID To gabapentin 300 mg PO TID 90 days 270 caps 1RF Refilled gabapentin 300 mg PO TID 270 caps 1RF 90 days vagcwyxbsp-urfyidjvdifah-mxiz 50-325-40 mg 1 tab PO Q6H PRN 20 tabs 3RF headache 30 days tramadol 50 mg PO Q8H PRN 60 tabs 3RF Pain Coding Level of Care Code Est Pt Level 4 (39786) Diagnoses Tension headache G44.209 Cerebral aneurysm, nonruptured I67.1
== END 2025-09-19 11:44 | disposition home or self-care (01) ==
LOC: HO.HSM 10:35
PROVIDERS: PCP Internal Medicine; Visit Provider Registered Nurse
DX: G44.209 Tension-type headache, unspecified, not intractable (principal); I67.1 Cerebral aneurysm, nonruptured
CPT/HCPCS: 99214

== ENCOUNTER → 2025-09-19 10:34 | Outpatient (BNVA) | payer OTHER, SELFPAY | PROVIDERS: PCP Internal Medicine; Visit Provider Registered Nurse | DX: G44.209 Tension-type headache, unspecified, not intractable (principal); I67.1 Cerebral aneurysm, nonruptured; Z79.899 Other long term (current) drug therapy | CPT/HCPCS: 99212 ==